=== PATIENT | male | born 1945 | race Caucasian/White ===

== ENCOUNTER → 2018-01-17 | Outpatient (CLI) | payer OTHER ==
[~2018-01-17] MED LIST: ASPI-435 PO; ATOR-24 PO; CRTC; INSU100I23 SC; LATA0.5S OPB; LIRA18IN SQ; LISI-461 PO; METF-384 PO; METO100T44 PO; OMEG10007 PO; OXYC-643 PO; SILD100T PO; TYLER650 PO
--- NOTE | 2018-01-17 13:15 | DIAGNOSTIC IMAGING REPORT ---
TWO VIEW CHEST CLINICAL HISTORY: Preoperative examination. FINDINGS: PA and lateral chest radiographs are obtained. No prior studies are available for comparison at the time of dictation. The patient is status post midline sternotomy. The heart is mildly enlarged and there is atherosclerotic calcification of the thoracic aorta. The pulmonary vasculature is noncongested. Nonspecific interstitial thickening is likely chronic. Linear atelectasis versus scarring is seen in the right upper lung. No airspace consolidation or pleural effusion is identified. There is no pneumothorax. The skeletal structures are osteopenic. The bony thorax appears intact. Surgical clips are noted in the upper abdomen. IMPRESSION: Cardiomegaly with no active disease in the chest. Electronically signed by: Dante Lopez M.D. 01/17/2018 1:14 PM Dictated Date/Time: 01/17/2018 1:13 PM
[2018-01-17 14:40] LABS: HEMATOCRIT 38.7 % (42-52); HEMOGLOBIN 13.2 g/dL (14.0-18.0); MEAN CELL VOLUME 95.8 fL (80-100); MEAN CORPUSCULAR HEMOGLOBIN 32.7 pg (25-34); MEAN CORPUSCULAR HGB CONC 34.1 g/dl (32-36); MEAN PLATELET VOLUME 9.7 fL (7.4-10.4); PLATELET COUNT 191 K/uL (130-400); RED CELL DISTRIBUTION WIDTH CV 13.4 % (11.5-14.5); RED CELL DISTRIBUTION WIDTH SD 46.6 fL (36.4-46.3)
[2018-01-17 14:53] LABS: PTT PATIENT 22.2 SECONDS (21.0-31.0)
== END | disposition home or self-care (01) ==
LOC: C.RAD 12:31
PROVIDERS: ATTEND Podiatrist
DX: Z01.810 Encounter for preprocedural cardiovascular examination (principal); Z01.811 Encounter for preprocedural respiratory examination; Z01.812 Encounter for preprocedural laboratory examination; I51.7 Cardiomegaly

== ENCOUNTER → 2018-01-18 | Day surgery (SDC) | payer OTHER ==
[2018-01-04 15:04] VITALS: Ht 181.6 cm; Wt 84.1 kg
[~2018-01-18] VITALS: Ht 181.6 cm; Wt 84.1 kg
[~2018-01-18] MED LIST changes: +ATROPINE SULFATE 0.1 MG/ML 5ML SYR IV PRN; +BUPIVACAINE 0.5 % 5 MG/1 ML MPF 30ML VIAL ONE; +CEFAZOLIN 2000MG IV PUSH 15 ML IV SCH; +EpHEDrine SULFATE INJ 50 MG/ML AMP IV PRN; +EpHEDrine SULFATE INJ 50 MG/ML AMP ONE; +FENTANYL CITRATE INJ 50 MCG/1 ML 2 ML VIAL IV PRN; +FENTANYL CITRATE INJ 50 MCG/1 ML 2 ML VIAL ONE; +FLUMAZENIL 0.1 MG/1 ML 10 ML VIAL IV PRN; +HYDROmorphone INJ 0.5 MG/0.5 ML SYR IV PRN; +LABETALOL HCL IV 5 MG/ML 20ML IV PRN; +LACTATED RINGER'S 1000ML 1,000 ML IV SCH; +LIDOCAINE HCL 2% 2 ML VIAL (20MG/ML) ONE; +MEPERIDINE HCL 25 MG/ML CARP IV PRN; +MIDAZOLAM HCL 1 MG/ML 2ML VIAL ONE; +NALOXONE HCL 0.4 MG/1 ML VIAL/CARP IV PRN; +ONDANSETRON INJ 2 MG/ML 2 ML VIAL IV PRN; +ONDANSETRON INJ 2 MG/ML 2 ML VIAL ONE; +PHENYLEPHRINE 100MCG/ML 5ML SYR IV PRN; +PROPOFOL IV EMULSION 10 MG/ML 20 ML VIAL IV ONE; +SODIUM CHLORIDE 0.9% INJ 10 ML VIAL ONE
--- NOTE | 2018-01-18 08:31 | Discharge Instructions-SurgCtr ---
Discharge Instructions Date of Service Jan 18, 2018. Visit Reason for Visit: Left Foot Non Pressure Chronic Ulcer, Hallux Rigid Discharge Discharge Diagnosis / Problem: hallux rigidus with chronic ulceration Discharge Goals Goal(s): Decrease discomfort, Improve function Medications Stopped Medications Name(s): Metformin, last dose 01/15/18 Activity Recommendations Activity Limitations: per Instructions/Follow-up section Weightbearing Status: Left non-weightbearing Anesthesia . Post Anesthesia Instructions: If you have had General Anesthesia or IV Sedation: * Do not drive today. * Resume driving when surgeon permits. * Do not make important decisions or sign legal documents today. * Call surgeon for: 1. Temperature elevations greater than 101 degrees F. 2. Uncontrollable pain. 3. Excessive bleeding. 4. Persistent nausea and vomiting. 5. Medication intolerance (nausea, vomiting or rash). * For nausea and vomiting use only clear liquids such as: tea, soda, bouillon until nausea subsides, then gradually increase diet as tolerated. * If you have any concerns or questions, call your surgeon's office. If physician is unavailable and it is an emergency, call 911 or go to the nearest emergency room. . Diet Recommendations Home Diet: no limitations Pending Studies Studies pending at discharge: no Medical Emergencies . Who to Call and When: Medical Emergencies: If at any time you feel your situation is an emergency, please call 911 immediately. . Non-Emergent Contact Non-Emergency issues call your: Surgeon Call Non-Emergent contact if: temperature is above 101, your pain is not controlled, you have any medication questions . . "Provider Documentation" section prepared by Gio Rouse. .
--- NOTE | 2018-01-18 08:34 | History & Physical Bridge - SC ---
H&P Re-Evaluation Bridge Note: I have examined the patient, reviewed the History & Physical and in the interval since the performance of the History & Physical I have noted the following changes of clinical significance: No changes noted
--- NOTE | 2018-01-18 08:36 | [facility] Post Operative Brief Note ---
Immediate Operative Summary Operative Date Jan 18, 2018. Pre-Operative Diagnosis Hallux rigidus left foot Post-Operative Diagnosis Same as preoperative dx Procedure(s) Performed Revision 1st MTPJ fusion with resection sesamoid spur and resection plantar wound via flap closure Surgeon Gio Rouse DPM [employer] Professional Surgeon(s) None Estimated Blood Loss Minimal Findings Consistent with Post-Op Diagnosis Specimens None Anesthesia Type General Complication(s) none Disposition Disposition: Recovery Room / PACU
--- NOTE | 2018-01-18 10:30 | [facility] Operative Report ---
Operative Report Operative Date Jan 18, 2018. Pre-Operative Diagnosis Left Foot Non-Pressure Chronic Ulcer, Hallux Rigid Post-Operative Diagnosis same as preop Procedure(s) Performed Revision 1st MTPJ fusion with resection sesamoid spur and resection plantar wound via flap closure Surgeon Dr. Rouse Senior Accounting Specialist Surgeon(s) none Estimated Blood Loss 10ML Specimens none Drains None Anesthesia Type General Complication(s) none Disposition Recovery Room / PACU Indications Non healing plantar left foot wound with ulceration. Malunion of the first MTP fusion Description of Procedure Patient was transported from the preoperative holding area into the operative room placed on the table in normal supine position. Timeout was performed in the left lower extremity was identified. After induction of general anesthesia a thigh tourniquet was applied and a local field block to the first ray was given with 20 cc of half percent Marcaine plain. Left lower extremity was then prepped and draped in the normal sterile fashion. Leg was elevated and exsanguinated tourniquet was inflated to 250 mmHg. Attention was then directed to the dorsal first metatarsophalangeal joint at the previous site of incision. Incision was carried down to the subcutaneous tissues to the level of bone. Fluoroscopy was employed to visualize the hardware that was in place from previous surgery. A dorsal to plantar cut was made vertically in line with the axis of the first ray. The plantar hinge was noted to be intact. After plantarflexion of the distal fragment of the osteotomy adequate alignment was achieved in good position of the first ray was noted. The hallux was slightly dorsiflexed with only distal pulp of the hallux touching the weightbearing surface. This position was secured using plate fixation and BB tack from [employer]. 2 nonlocking screws were placed distal to the osteotomy site in a bicortical fashion in the right [employer] plate. BB tacks were then removed and locking screw fixation was employed closer to the wedge osteotomy site. The void that was left from the wedge plantarflexion osteotomy was then filled with [employer] Serevent per [employer] technique. Positioning was checked on fluoroscopy and excellent alignment of the first ray was noted. Again the hallux was noted to be just purchasing the ground with a slightly dorsiflexed position. The sesamoids appear to be hypertrophied and jagged in nature from previous surgery. At this time the medial incision was done at the level of the sesamoids. Careful dissection was carried down to the level of the bone and the sesamoids were shaved in a manual fashion using a rasp. Smooth congruent sesamoids were felt intraoperatively. Attention was then directed to the plantar lateral wound of the first metatarsophalangeal joint. The chronic nature of the wounds lead itself to a 3- 1 elliptical incision which was performed. All incision sites were then flushed with copious amounts of normal sterile saline. All wounds were closed in a layered fashion. A short posterior splint that was well-padded was applied to the left lower extremity as well as a dry sterile dressing. Patient tolerated the anesthesia procedure well he was transported to the PACU with vital signs stable and neurovascular status intact to the left lower extremity. I attest to the content of the Intraoperative Record and any orders documented therein. Any exceptions are noted below.
--- NOTE | 2018-01-18 10:50 | Anesthesia Progress Nt - [facility] ---
Anesthesia Post Op Note Date & Time Jan 18, 2018 at 10:50 Vital Signs Pain Intensity: 0 Vital Signs Past 12 Hours Date Time Temp Pulse Resp B/P (MAP) Pulse Ox O2 Delivery O2 Flow Rate FiO2 01/18/18 10:41 127/68 01/18/18 10:40 67 5 01/18/18 10:40 67 5 97 01/18/18 10:36 135/65 01/18/18 10:35 72 8 95 01/18/18 10:35 71 8 01/18/18 10:32 131/57 01/18/18 10:30 70 7 01/18/18 10:30 69 7 99 01/18/18 10:26 140/71 01/18/18 10:25 69 4 01/18/18 10:25 69 4 98 01/18/18 10:21 152/91 01/18/18 10:20 37.0 75 16 152/91 98 Diffusion Mask 6 01/18/18 10:20 75 98 01/18/18 10:20 75 01/18/18 07:49 36.3 73 20 149/77 (101) 98 Room Air Notes Mental Status: alert / awake / arousable, participated in evaluation Pt Amnestic to Procedure: Yes Nausea / Vomiting: adequately controlled Pain: adequately controlled Airway Patency, RR, SpO2: stable & adequate BP & HR: stable & adequate Hydration State: stable & adequate Anesthetic Complications: no major complications apparent
[2018-01-18 11:02] VITALS: TEMP 36.9
--- NOTE | 2018-01-18 11:38 | DIAGNOSTIC IMAGING REPORT ---
Intraoperative left foot 2 VIEWS CLINICAL HISTORY: LEFT FOOT METATARSAL PHALANGEAL JOINT REVISION COMPARISON STUDY: None FLUOROSCOPY TIME: 2 seconds. NUMBER OF FLUOROSCOPIC IMAGES: 2 FINDINGS: 2 intraoperative fluoroscopic spot images demonstrate postsurgical changes of a first metatarsal phalangeal joint arthrodesis. There is a dorsal metallic plate with multiple additional screws. IMPRESSION: Intraoperative radiograph demonstrating a first metatarsal phalangeal joint arthrodesis. Electronically signed by: Ang Corey M.D. 01/18/2018 11:37 AM Dictated Date/Time: 01/18/2018 11:36 AM
[2018-01-18 11:41] VITALS: BP 132/64; PULSE 61; O2SAT 97
== END | disposition home or self-care (01) ==
LOC: X.SURG 07:30
PROVIDERS: ATTEND Podiatrist
DX: M20.22 Hallux rigidus, left foot (principal); L97.522 Non-pressure chronic ulcer of other part of left foot with fat layer exposed; E11.621 Type 2 diabetes mellitus with foot ulcer; E11.42 Type 2 diabetes mellitus with diabetic polyneuropathy; I51.9 Heart disease, unspecified; I10 Essential (primary) hypertension; E78.00 Pure hypercholesterolemia, unspecified; Z87.891 Personal history of nicotine dependence; Z79.899 Other long term (current) drug therapy; Z79.84 Long term (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 of oral hypoglycemic drugs

== ENCOUNTER 2018-04-14 16:42 | Inpatient (IN) | payer OTHER ==
[~2018-04-14] VITALS: Ht 182.9 cm; Wt 85.0 kg
[~2018-04-14 16:42] MED LIST changes: -ATROPINE SULFATE 0.1 MG/ML 5ML SYR IV PRN; -BUPIVACAINE 0.5 % 5 MG/1 ML MPF 30ML VIAL ONE; -CEFAZOLIN 2000MG IV PUSH 15 ML IV SCH; -CRTC; -EpHEDrine SULFATE INJ 50 MG/ML AMP IV PRN; -EpHEDrine SULFATE INJ 50 MG/ML AMP ONE; -FENTANYL CITRATE INJ 50 MCG/1 ML 2 ML VIAL IV PRN; -FENTANYL CITRATE INJ 50 MCG/1 ML 2 ML VIAL ONE; -FLUMAZENIL 0.1 MG/1 ML 10 ML VIAL IV PRN; -HYDROmorphone INJ 0.5 MG/0.5 ML SYR IV PRN; -LABETALOL HCL IV 5 MG/ML 20ML IV PRN; -LACTATED RINGER'S 1000ML 1,000 ML IV SCH; -LIDOCAINE HCL 2% 2 ML VIAL (20MG/ML) ONE; -MEPERIDINE HCL 25 MG/ML CARP IV PRN; -MIDAZOLAM HCL 1 MG/ML 2ML VIAL ONE; -NALOXONE HCL 0.4 MG/1 ML VIAL/CARP IV PRN; -ONDANSETRON INJ 2 MG/ML 2 ML VIAL IV PRN; -ONDANSETRON INJ 2 MG/ML 2 ML VIAL ONE; -PHENYLEPHRINE 100MCG/ML 5ML SYR IV PRN; -PROPOFOL IV EMULSION 10 MG/ML 20 ML VIAL IV ONE; -SODIUM CHLORIDE 0.9% INJ 10 ML VIAL ONE
[2018-04-14] MEDS ORDERED: SODIUM CHLORIDE 0.9% 1000ML 1,000 ML IV STA (17:16)
[2018-04-14] MEDS ORDERED: VANCOMYCIN IV STA (17:16)
[2018-04-14] MEDS ORDERED: SODIUM CHLORIDE 0.9% 500ML 500 ML IV STA (17:16)
[2018-04-14] MEDS ORDERED: SODIUM CHLORIDE 0.9% IV STA (17:16)
[2018-04-14] MEDS ORDERED: VANCOMYCIN CONSULT ACTIVE PRN ×2 (17:30→23:15)
--- NOTE | 2018-04-14 17:34 | EMERGENCY ROOM VISIT NOTE ---
History Report prepared by Daisy: Macario Woods Under the Supervision of: Dr. Joan Santiago M.D. First contact with patient: 17:09 Chief Complaint: SWELLING TO EXTREMITY Stated Complaint: LEFT LEG SWELLING History of Present Illness The patient is a 72 year old male who presents to the Emergency Room with complaints of worsening swelling and redness to his left foot and ankle beginning a few weeks ago. The patient states he recently had surgery on his foot for the third time. He reports his other two surgeries have healed well. The patient notes his first surgery occurred several years ago and had a plate with screws placed in his foot. He states the screws started to come out, so he had another surgery to remove them and have his toes fused. The patient reports his most recent surgery unfused his toes. He notes he had three different incisions, two of which have healed well. The patient states over the past few days his swelling has worsened, and the redness has grown. He reports his symptoms intensify when he showers. The patient notes he was evaluated by his v block saw operator today and had wound cultures obtained. He states he was told it may be a reaction to the sutures in his foot. The patient reports his v block saw operator outlined the redness at his appointment today, and it has spread since this afternoon. He notes he was given oxycodone for pain. The patient states it helps his symptoms, but he does not like to take it often. He reports he prefers to use Tylenol. The patient notes he had an MRI before surgery that was within normal limits. He states he has a history of diabetes. The patient reports an additional history of a CABGx3 and a chronic DVT. He notes he takes a baby aspirin daily. The patient states he occasionally has a cigar. He denies any other symptoms. Source of History: patient Onset: a few weeks ago Position: foot (left) Quality: other (swelling and redness) Timing: worsening Modifying Factors (Worsening): other (showering) Modifying Factors (Relieving): other (oxycodone) Review of Systems See HPI for pertinent positives & negatives. A total of 10 systems reviewed and were otherwise negative. Past Medical & Surgical Medical Problems: (1) CAD (coronary artery disease) (2) Diabetes mellitus, type II (3) DVT (deep venous thrombosis) (4) Hallux rigidus of left foot (5) HLD (hyperlipidemia) (6) Peripheral vascular disease of lower extremity (7) Type 2 diabetes mellitus Surgical Problems: (1) S/P CABG x 3 Family History Heart disease Social History Smoking Status: Never Smoker Drug Use: none Marital Status: Occupation Status: retired Current/Historical Medications Scheduled Aspirin (Aspirin 81), 81 MG PO QAM Atorvastatin (Lipitor), 1 TAB PO QPM Fish Oil ([place]-3), 1 CAP PO BID Insulin Glargine (Basaglar Kwikpen), 46 UNITS SC QPM Latanoprost (Xalatan 0.005% Oph Jolie), 1 DROPS OPB HS Liraglutide (Victoza), 1.2 MG SQ QAM Lisinopril (Zestril), 10 MG PO QAM Metformin Hcl (Glucophage), 1,000 MG PO BID Metoprolol Succ (Toprol Xl) (Toprol-Xl ), 100 MG PO QAM Sildenafil Citrate (Viagra), 100 MG PO PRN Scheduled PRN Acetaminophen (Tylenol Arthitis Ext Rel), 2 TAB PO Q8H PRN for Pain Allergies Coded Allergies: No Known Allergies (Unverified , 04/14/18) Physical Exam Vital Signs Date Time Temp Pulse Resp B/P (MAP) Pulse Ox O2 Delivery O2 Flow Rate FiO2 04/14/18 20:52 98 Room Air 04/14/18 19:19 90 112/69 98 Room Air 04/14/18 17:01 37.0 90 20 121/64 99 Room Air Physical Exam Vital signs reviewed. General: Well-appearing 72 year old male, in no significant distress. HEENT: No scleral icterus, PERRLA, neck supple. Atraumatic. Cardiovascular: Regular rate and rhythm, no extra sounds. Pulmonary: Clear to auscultation bilaterally, normal work of breathing. Abdomen: Soft, nontender, nondistended, positive bowel sounds. Musculoskeletal: Atraumatic, 1+ pitting edema to the left lower extremity distally. Quarter sized open wound to the dorsum of the foot at the MTP with swelling. Erythema extended over the distal 1/2 of the foot. Foul odor. Neurologic: Patient awake alert and oriented x 3 Skin: Warm, dry, no rash Medical Decision & Procedures ER Provider Diagnostic Interpretation: Radiology results as stated below per my review and radiologist interpretation: LEFT LOWER EXTREMITY VENOUS DOPPLER CLINICAL HISTORY: LLE swelling, distal foot infection. COMPARISON STUDY: No previous studies for comparison. TECHNIQUE: Sonography of the deep venous system of the left lower extremity was performed. Compression and augmentation were evaluated. FINDINGS: The common femoral, superficial femoral and popliteal veins were compressible. Augmentation was normal. Flow was shown within the deep calf vessels. IMPRESSION: No evidence of deep venous thrombus within the left lower extremity. Electronically signed by: Raghu Mcgowan M.D. 04/14/2018 7:10 PM Dictated Date/Time: 04/14/2018 7:10 PM LEFT FOOT RADIOGRAPHS CLINICAL HISTORY: Nonhealing left foot wound status post surgery 3 months ago. Diabetes. COMPARISON: CT of the left foot August 26, 2015 and left foot fluoroscopic images January 18, 2018. FINDINGS: There are postoperative findings consistent with fusion of the left first metatarsophalangeal joint with plate and screws. The hardware is intact. However, there may be mild lucency surrounding the proximal screws. There is a minimally distracted transverse fracture through the left first metatarsal head. There is mild periosteal reaction/periostitis of the lateral distal shaft of the left first metatarsal. No additional fractures are present. Tarsometatarsal joints are intact. IMPRESSION: 1. Transverse minimally distracted fracture of the left first metatarsal head which is new since exam of January 18, 2018. This fracture is likely subacute to acute. Mild adjacent soft tissue swelling. 2. Status post fusion of the left first metatarsophalangeal joint. Hardware intact. Mild lucency surrounding the proximal screws raises the possibility of loosening. 3. Mild periostitis of the lateral distal shaft of the left first metatarsal which is nonspecific and may be related to the fracture, previous surgery or an infectious etiology. 4. Medial left foot soft tissue swelling. Electronically signed by: Raghu Mcgowan M.D. 04/14/2018 6:24 PM Dictated Date/Time: 04/14/2018 6:16 PM Laboratory Results Test 04/14/18 17:49 04/14/18 19:08 Erythrocyte Sedimentation Rate 59 mm/hr (0-14) Total Bilirubin 0.7 mg/dl (0.2-1) Alanine Aminotransferase (ALT/SGPT) 24 U/L (12-78) Alkaline Phosphatase 70 U/L (45-117) Total Protein 8.1 gm/dl (6.4-8.2) Albumin 3.6 gm/dl (3.4-5.0) Magnesium Level 1.9 mg/dl (1.8-2.4) Direct Bilirubin 0.2 mg/dl (0-0.2) Aspartate Amino Transf (AST/SGOT) 12 U/L (15-37) Thyroid Stimulating Hormone (TSH) 0.654 uIu/ml (0.300-4.500) Laboratory results per my review. Medications Administered Medications (Trade) Dose Ordered Sig/Jennifer Route Start Time Stop Time Status Last Admin Dose Admin Sodium Chloride 500 ml @ 999 mls/hr Q31M STAT IV 04/14/18 17:16 04/14/18 17:46 DC 04/14/18 17:16 999 MLS/HR Sodium Chloride 1,000 ml @ 125 mls/hr Q8H STAT IV 04/14/18 17:16 04/15/18 18:10 DC 04/14/18 17:16 125 MLS/HR Vancomycin HCl 2125 mg/Sodium Chloride 542.5 ml @ 200 mls/hr ONE STAT IV 04/14/18 17:16 04/14/18 19:58 DC 04/14/18 18:26 200 MLS/HR Piperacillin Sod/ Tazobactam Sod (Zosyn Iv) 4.5 gm NOW STAT IV 04/14/18 20:14 04/14/18 20:16 DC 04/14/18 20:23 4.5 GM ED Course 1712: Past medical records reviewed. The patient was evaluated in room B11B. A complete history and physical examination was performed. 1801: Upon reevaluation, the patient is resting comfortably. I discussed laboratory and radiographic results with him. He verbalized agreement of the treatment plan. The patient will be evaluated for further management and care. 2019: I discussed the patient's [facility] The patient will be evaluated for further management and care. Medical Decision Differential diagnosis: Etiologies such as cellulitis, abscess, MRSA infection, DVT, necrotizing fasciitis, dermatitis, osteomyelitis, drug eruption, as well as others were entertained. This patient was evaluated and appeared to be in no significant distress. IV access was obtained and laboratory work was drawn. Patient was placed on the quality assurance monitor chassis and found to be in a normal sinus rhythm. He was hydrated with normal saline solution. Patient was started on IV vancomycin and Zosyn due to his nonhealing ulceration and diabetes. He also has significant peripheral vascular disease. Doppler of the lower extremity was performed and is negative for DVT. X-ray of the foot was performed and is read as above. Patient's laboratory work reveals an elevated sedimentation rate and CRP. I do have concerns for underlying osteomyelitis. The hospitalist service was consulted for further management. Patient and were made aware of the plan and agree. Medication Reconcilliation Current Medication List: was personally reviewed by me Blood Pressure Screening Patient's blood pressure: Normal blood pressure Blood pressure disposition: Did not require urgent referral Consults Time Called: 2010 Consulting Physician: Maddy Joshua Hospitalist Returned Call: 2018 I discussed the patient's case with [facility]. The patient will be evaluated for further management and care. Impression Primary Impression: Cellulitis of left lower extremity Additional Impressions: Non-healing surgical wound Postoperative wound infection Scribe Attestation The scribe's documentation has been prepared under my direction and personally reviewed by me in its entirety. I confirm that the note above accurately reflects all work, treatment, procedures, and medical decision making performed by me. Departure Information Dispostion Being Evaluated By Hospitalist Referrals No Doctor, Assigned (PCP) Patient Instructions My [facility] Problem Qualifiers Additional Impressions:
[2018-04-14 18:04] LABS: BASO % 0.1 %; BASO ABS # 0.01 K/uL (0-0.2); EOS % 0.9 %; EOS ABS # 0.09 K/uL (0-0.5); HEMATOCRIT 30.7 % (42-52); HEMOGLOBIN 10.5 g/dL (14.0-18.0); IG# 0.04 K/uL (0.00-0.02); LYMPH % 12.1 %; LYMPH ABS # 1.18 K/uL (1.2-3.4); MEAN CORPUSCULAR HEMOGLOBIN 31.8 pg (25-34); MEAN CORPUSCULAR HGB CONC 34.2 g/dl (32-36); MEAN PLATELET VOLUME 8.4 fL (7.4-10.4); MONO % 12.2 %; MONO ABS # 1.19 K/uL (0.11-0.59); NEUT % 74.3 %; NEUT ABS # 7.22 K/uL (1.4-6.5); PLATELET COUNT 233 K/uL (130-400); RED CELL DISTRIBUTION WIDTH CV 13.9 % (11.5-14.5); RED CELL DISTRIBUTION WIDTH SD 47.6 fL (36.4-46.3); WHITE BLOOD COUNT 9.73 K/uL (4.8-10.8)
--- NOTE | 2018-04-14 18:26 | DIAGNOSTIC IMAGING REPORT ---
LEFT FOOT RADIOGRAPHS CLINICAL HISTORY: Nonhealing left foot wound status post surgery 3 months ago. Diabetes. COMPARISON: CT of the left foot August 26, 2015 and left foot fluoroscopic images January 18, 2018. FINDINGS: There are postoperative findings consistent with fusion of the left first metatarsophalangeal joint with plate and screws. The hardware is intact. However, there may be mild lucency surrounding the proximal screws. There is a minimally distracted transverse fracture through the left first metatarsal head. There is mild periosteal reaction/periostitis of the lateral distal shaft of the left first metatarsal. No additional fractures are present. Tarsometatarsal joints are intact. IMPRESSION: 1. Transverse minimally distracted fracture of the left first metatarsal head which is new since exam of January 18, 2018. This fracture is likely subacute to acute. Mild adjacent soft tissue swelling. 2. Status post fusion of the left first metatarsophalangeal joint. Hardware intact. Mild lucency surrounding the proximal screws raises the possibility of loosening. 3. Mild periostitis of the lateral distal shaft of the left first metatarsal which is nonspecific and may be related to the fracture, previous surgery or an infectious etiology. 4. Medial left foot soft tissue swelling. Electronically signed by: Raghu Mcgowan M.D. 04/14/2018 6:24 PM Dictated Date/Time: 04/14/2018 6:16 PM
[2018-04-14 18:31] LABS: ALBUMIN 3.6 gm/dl (3.4-5.0); CALCIUM 9.6 mg/dl (8.5-10.1); CREATININE 1.32 mg/dl (0.60-1.40); TOTAL PROTEIN 8.1 gm/dl (6.4-8.2)
--- NOTE | 2018-04-14 19:11 | DIAGNOSTIC IMAGING REPORT ---
LEFT LOWER EXTREMITY VENOUS DOPPLER CLINICAL HISTORY: LLE swelling, distal foot infection. COMPARISON STUDY: No previous studies for comparison. TECHNIQUE: Sonography of the deep venous system of the left lower extremity was performed. Compression and augmentation were evaluated. FINDINGS: The common femoral, superficial femoral and popliteal veins were compressible. Augmentation was normal. Flow was shown within the deep calf vessels. IMPRESSION: No evidence of deep venous thrombus within the left lower extremity. Electronically signed by: Raghu Mcgowan M.D. 04/14/2018 7:10 PM Dictated Date/Time: 04/14/2018 7:10 PM
[2018-04-14 19:38] LABS: POTASSIUM 4.3 mmol/L (3.5-5.1)
[2018-04-14] MEDS ORDERED: PIPERACILLIN/TAZOBACTAM 4.5 GM/100ML D5W IV STA (20:14)
[2018-04-14 20:52] VITALS: O2SAT 98; BMI 25.4
--- NOTE | 2018-04-14 21:44 | History and Physical ---
History & Physical Date & Time of Service: Apr 14, 2018 at 21:15 Chief Complaint: Left Leg Swelling Primary Care Physician: Bette Degroot D.O. History of Present Illness Source: patient, clinic records, hospital records This is a 72-year-old male with a PMH of DM II, CAD (s/p CABG), peripheral vascular disease, HLD and multiple left foot surgeries who presents with worsening pain and swelling of right foot over the past few days. Patient has a remote history of multiple left foot fractures hallux rigidus and had a plate and screws placed in 2003. Then had screws removed and joint fusion in the following year. Since then, patient has had intermittent ulcers on the plantar aspect of foot, requiring orthotics and podiatry care. In January 2018, patient underwent revision of first MTPJ fusion with resection by by Dr. Rouse. Has continued to have pain, swelling and non-healing surgical site since then, which has worsened over the past few days. Describes pain as throbbing, constant and worse with walking or after showering. Has been taking Tylenol every 4 hours and Percocet the past 2 days. Noted increased swelling and redness surrounding the open area on the dorsal aspect of his first metatarsal and went to podiatry, where wound cultures were performed. Was encouraged to come to ED for further evaluation and antibiotic management. Past medical history is also significant for type 2 diabetes and peripheral vascular disease. Denies fever, chills, lightheadedness, headache, visual changes, chest pain, palpitations, shortness of breath, abdominal pain, nausea, vomiting, dysuria, diarrhea or LE swelling. Has been constipated since starting to use Percocet. PCP is Dr. Degroot. Past Medical/Surgical History Medical Problems: (1) CAD (coronary artery disease) Status: Chronic (2) Diabetes mellitus, type II Status: Chronic (3) DVT (deep venous thrombosis) Status: Chronic (4) Hallux rigidus of left foot Permanent Comment: S/p multiple surgeries Status: Chronic (5) HLD (hyperlipidemia) Status: Chronic (6) Peripheral vascular disease of lower extremity Status: Chronic (7) Type 2 diabetes mellitus Status: Chronic Surgical Problems: (1) S/P CABG x 3 Status: Resolved Family History Heart disease Social History Smoking Status: Light Tobacco Smoker (occasional cigars ) Alcohol Use: none Drug Use: none Marital Status: Housing status: lives with significant other Occupational Status: retired Allergies Coded Allergies: No Known Allergies (Unverified , 04/14/18) Home Medications Scheduled Aspirin (Aspirin 81), 81 MG PO QAM Atorvastatin (Lipitor), 1 TAB PO QPM Fish Oil ([place]-3), 1 CAP PO BID Insulin Glargine (Basaglar Kwikpen), 46 UNITS SC QPM Latanoprost (Xalatan 0.005% Oph Jolie), 1 DROPS OPB HS Liraglutide (Victoza), 1.2 MG SQ QAM Lisinopril (Zestril), 10 MG PO QAM Metformin Hcl (Glucophage), 1,000 MG PO BID Metoprolol Succ (Toprol Xl) (Toprol-Xl ), 100 MG PO QAM Sildenafil Citrate (Viagra), 100 MG PO PRN Scheduled PRN Acetaminophen (Tylenol Arthitis Ext Rel), 2 TAB PO Q8H PRN for Pain Review of Systems Ten systems reviewed and negative except as noted in the HPI. Physical Exam Vital Signs Date Time Temp Pulse Resp B/P (MAP) Pulse Ox O2 Delivery O2 Flow Rate FiO2 04/14/18 20:52 98 Room Air 04/14/18 19:19 90 112/69 98 Room Air 04/14/18 17:01 37.0 90 20 121/64 99 Room Air General Appearance: WD/WN, no apparent distress Head: normocephalic, atraumatic Eyes: normal inspection, PERRL, sclerae normal ENT: normal ENT inspection, hearing grossly normal, pharynx normal Neck: supple, thyroid normal, trachea midline Respiratory/Chest: chest non-tender, lungs clear, normal breath sounds, no respiratory distress, no accessory muscle use Cardiovascular: regular rate, rhythm, no murmur, normal peripheral pulses Abdomen/GI: non tender, soft, no organomegaly Back: normal inspection Extremities/Musculoskelatal: no calf tenderness, normal capillary refill, + pertinent finding (L 1st metatarsal with open wound with serosangineous drainage and surrounding erythema and edema extending to L ankle ) Neurologic/Psych: no motor/sensory deficits, alert, normal mood/affect, oriented x 3 Skin: normal color, warm/dry, no rash Diagnostics Laboratory Results Results Past 24 Hours Test 04/14/18 17:49 04/14/18 19:08 Range/Units White Blood Count 9.73 4.8-10.8 K/uL Red Blood Count 3.30 4.7-6.1 M/uL Hemoglobin 10.5 14.0-18.0 g/dL Hematocrit 30.7 42-52 % Mean Corpuscular Volume 93.0 80-100 fL Mean Corpuscular Hemoglobin 31.8 25-34 pg Mean Corpuscular Hemoglobin Concent 34.2 32-36 g/dl Platelet Count 233 130-400 K/uL Mean Platelet Volume 8.4 7.4-10.4 fL Neutrophils (%) (Auto) 74.3 % Lymphocytes (%) (Auto) 12.1 % Monocytes (%) (Auto) 12.2 % Eosinophils (%) (Auto) 0.9 % Basophils (%) (Auto) 0.1 % Neutrophils # (Auto) 7.22 1.4-6.5 K/uL Lymphocytes # (Auto) 1.18 1.2-3.4 K/uL Monocytes # (Auto) 1.19 0.11-0.59 K/uL Eosinophils # (Auto) 0.09 0-0.5 K/uL Basophils # (Auto) 0.01 0-0.2 K/uL RDW Standard Deviation 47.6 36.4-46.3 fL RDW Coefficient of Variation 13.9 11.5-14.5 % Immature Granulocyte % (Auto) 0.4 % Immature Granulocyte # (Auto) 0.04 0.00-0.02 K/uL Erythrocyte Sedimentation Rate 59 0-14 mm/hr Sodium Level 134 136-145 mmol/L Potassium Level 4.3 3.5-5.1 mmol/L Chloride Level 102 98-107 mmol/L Carbon Dioxide Level 23 21-32 mmol/L Anion Gap 9.0 3-11 mmol/L Blood Urea Nitrogen 17 7-18 mg/dl Creatinine 1.32 0.60-1.40 mg/dl Est Creatinine Clear Calc Drug Dose 56.4 ml/min Estimated GFR () 62.5 Estimated GFR (Non- 53.9 BUN/Creatinine Ratio 12.7 10-20 Random Glucose 107 70-99 mg/dl Calcium Level 9.6 8.5-10.1 mg/dl Total Bilirubin 0.7 0.2-1 mg/dl Direct Bilirubin 0.2 0-0.2 mg/dl Aspartate Amino Transf (AST/SGOT) 12 15-37 U/L Alanine Aminotransferase (ALT/SGPT) 24 12-78 U/L Alkaline Phosphatase 70 45-117 U/L C-Reactive Protein 12.20 0-0.29 mg/dl Total Protein 8.1 6.4-8.2 gm/dl Albumin 3.6 3.4-5.0 gm/dl Magnesium Level 1.9 1.8-2.4 mg/dl Thyroid Stimulating Hormone (TSH) 0.654 0.300-4.500 uIu/ml Diagnostic Radiology Lower extremity ultrasound: IMPRESSION: No evidence of deep venous thrombus within the left lower extremity. L foot XR: IMPRESSION: 1. Transverse minimally distracted fracture of the left first metatarsal head which is new since exam of January 18, 2018. This fracture is likely subacute to acute. Mild adjacent soft tissue swelling. 2. Status post fusion of the left first metatarsophalangeal joint. Hardware intact. Mild lucency surrounding the proximal screws raises the possibility of loosening. 3. Mild periostitis of the lateral distal shaft of the left first metatarsal which is nonspecific and may be related to the fracture, previous surgery or an infectious etiology. 4. Medial left foot soft tissue swelling. Impression Assessment and Plan This is a 72-year-old male with a PMH of DM II, CAD (s/p CABG), peripheral vascular disease, HLD and multiple left foot surgeries who presents with worsening pain and swelling of right foot over the past few days and was found to have cellulitis of left foot. Left foot cellulitis Wound on dorsal aspect of 1st metatarsal -S/p revision of 1st MTPJ fusion with resection in [address] Rouse -Poor wound healing in setting of DM II, PVD of LLE -Has continued to follow with podiatry -Worsening wound drainage and surrounding erythema/swelling past few days -Afebrile, no leukocytosis. Non-toxic appearing on exam -Wound cultures obtained yesterday by podiatry -Olivier for empiric coverage -Foot XR with mild periostitis of the lateral distal shaft of the left first metatarsal which is nonspecific and may be related to the fracture, previous surgery or an infectious etiology -Consider foot MRI due to concern for osteomyelitis -Wound care consulted DM II -A1c of 6.5 in December 2017 -Repeat a1c -Hold home agents -Basal/bolus regimen while in-patient -Glycemic consult placed -BSG AC HS CAD (s/p CABG) -Stable -Cont aspirin HLD -Cont statin Code status: FULL code, per discussion with patient PCP: Zane Dispo: Admitted to med/surg. Plan to return home once medically stable. Patient seen in collaboration with Dr. Leach. Please see addendum. Advanced Directives Existing Living Will: No Existing Power of Astronomy Teacher: No Resuscitation Status VTE Prophylaxis Will order VTE Prophylaxis: Yes Assessment/Plan IM ATTENDING : Patient seen and examined. History obtained from patient and records. Preceding documentation by Ms. Oliva Malagon PA-C reviewed. In addition, patient became febrile and tachycardic upon arrival at the floor. FINAL ASSESSMENT AND PLAN as follows: 1. Sepsis secondary to nonhealing left foot wound w/ secondary cellulitis. Possible osteomyelitis. Recent revision surgery (01/2018) underlying PAD possibly contributory to protracted postop healing (hx L popliteal artery occlusion, possible need for LLE revascularization as per recent outpatient [facility] Vascular Surgery evaluation 08/2016) 2. Hypertension, stable. 3. Coronary artery disease status post CABG 4. DM2, insulin requiring well controlled as of recent outpatient Hg of A1c 6.5 last December 2017. 5. Subacute anemia. Hemoglobin down to 10.5 from 13.2 last January (Patient denies overt GI bleed at home. Hx polyps on recent colonoscopy in 2016) 6. past tobacco abuse. [facility] CS, check lactic acid Vancomycin and Cefepime for now. MRI of the L foot. RE rule out osteomyelitis Arterial Dopplers, LLE, may need Vascular Surgery eval pending results Podiatry followup eval. (Dr. Rouse) Inpatient Orthopedics eval for left foot wound (Dr. Tejeda as per patient's request.) ID consult RE infected L foot wound. Wound care follow-up consult Anemia workup. Basal insulin, ISS BG goal 140-180. Patient due for hemoglobin A1c recheck. DVT prophylaxis, Lovenox subQ pending stool hemoccult results. Full code.
[2018-04-14 21:53] VITALS: O2SAT 97
[2018-04-14 22:45] VITALS: BP 130/65; PULSE 107; TEMP 37.7; O2SAT 96
[2018-04-14] MEDS ORDERED: PROCHLORPERAZINE INJ 5 MG in SYRINGE 4 ML IV PRN (22:45)
[2018-04-14] MEDS ORDERED: CARBOHYDRATES FOR HYPOGLYCEMIA PO PRN (22:45)
[2018-04-14] MEDS ORDERED: MoRPHine SULFATE 4 MG/ML 1 ML CARP\\VIAL IV PRN (22:45)
[2018-04-14] MEDS ORDERED: GLUCOSE 10 TABS/TUBE PO PRN (22:45)
[2018-04-14] MEDS ORDERED: POLYETHYLENE (MIRALAX) 17 GM PACK PO PRN (22:45)
[2018-04-14] MEDS ORDERED: GLUCAGON FOR INJ 1 MG VIAL SQ PRN (22:45)
[2018-04-14] MEDS ORDERED: GLUCOSE 40% GEL 15 GM TUBE PO PRN (22:45)
[2018-04-14] MEDS ORDERED: DEXTROSE 50% 50 ML SYR IV PRN (22:45)
[2018-04-14] MEDS ORDERED: DOCUSATE SODIUM 100 MG CAP PO ONE (23:00)
[2018-04-14] MEDS ORDERED: POLYETHYLENE (MIRALAX) 17 GM PACK PO ONE (23:00)
[2018-04-14] MEDS ORDERED: ACETAMINOPHEN 325 MG TAB PO ONE (23:00)
[2018-04-14] MEDS ORDERED: INSULIN ASPART 100 UNITS/ML 3 ML PEN SC ONE (23:00)
[2018-04-14] MEDS ORDERED: SODIUM CHLORIDE 0.9% 1000ML 1,000 ML IV ONE (23:00)
[2018-04-14] MEDS ORDERED: CEFEPIME CONSULT ACTIVE PRN (23:15)
[2018-04-14 23:30] LABS: HEMOGLOBIN 11.2 g/dL (14.0-18.0); RETIC COUNT % 1.2 % (0.5-2.0)
[2018-04-14 23:34] VITALS: BP 124/63; PULSE 88; TEMP 38; O2SAT 97
[2018-04-15] MEDS ORDERED: CEFEPIME IV 2,000 MG in SYRINGE 7.5 ML IV SCH
--- NOTE | 2018-04-15 00:30 | HISTORY & PHYSICAL EXAMINATION ---
DATE OF ADMISSION: 04/14/2018 IM ATTENDING : Patient seen and examined. History obtained from patient and records. Preceding documentation by Ms. Oliva Malagon PA-C reviewed. In addition, patient became febrile and tachycardic upon arrival at the floor. FINAL ASSESSMENT AND PLAN as follows: 1. Sepsis secondary to nonhealing left foot wound w/ secondary cellulitis. Possible osteomyelitis. Recent revision surgery (01/2018) underlying PAD possibly contributory to protracted postop healing (hx L popliteal artery occlusion, possible need for LLE revascularization as per recent outpatient [facility] Vascular Surgery evaluation 08/2016) 2. Hypertension, stable. 3. Coronary artery disease status post CABG 4. DM2, insulin requiring well controlled as of recent outpatient Hg of A1c 6.5 last December 2017. 5. Subacute anemia. Hemoglobin down to 10.5 from 13.2 last January (Patient denies overt GI bleed at home. Hx polyps on recent colonoscopy in 2016) 6. past tobacco abuse. [facility] CS, check lactic acid Vancomycin and Cefepime for now. MRI of the L foot. RE rule out osteomyelitis Arterial Dopplers, LLE, may need Vascular Surgery eval pending results Podiatry followup eval. (Dr. Rouse) Inpatient Orthopedics eval for left foot wound (Dr. Tejeda as per patient's request.) ID consult RE infected L foot wound. Wound care follow-up consult Anemia workup. Basal insulin, ISS BG goal 140-180. Patient due for hemoglobin A1c recheck. DVT prophylaxis, Lovenox subQ pending stool hemoccult results. Full code. MTDD
[2018-04-15] MEDS: ACETAMINOPHEN 325 MG TAB PO PRN ×4 (03:18→22:22)
[2018-04-15 06:07] LABS: BASO % 0.1 %; BASO ABS # 0.01 K/uL (0-0.2); EOS % 2.1 %; EOS ABS # 0.15 K/uL (0-0.5); HEMATOCRIT 29.3 % (42-52); HEMOGLOBIN 9.9 g/dL (14.0-18.0); IG# 0.03 K/uL (0.00-0.02); LYMPH % 22.4 %; LYMPH ABS # 1.63 K/uL (1.2-3.4); MEAN CELL VOLUME 93.9 fL (80-100); MEAN CORPUSCULAR HEMOGLOBIN 31.7 pg (25-34); MEAN CORPUSCULAR HGB CONC 33.8 g/dl (32-36); MEAN PLATELET VOLUME 8.2 fL (7.4-10.4); MONO % 12.1 %; MONO ABS # 0.88 K/uL (0.11-0.59); NEUT % 62.9 %; NEUT ABS # 4.58 K/uL (1.4-6.5); PLATELET COUNT 205 K/uL (130-400); RED CELL DISTRIBUTION WIDTH SD 48.2 fL (36.4-46.3); WHITE BLOOD COUNT 7.28 K/uL (4.8-10.8)
[2018-04-15 07:10] VITALS: BP 116/64; PULSE 77; TEMP 36.5; O2SAT 97
[2018-04-15] MEDS: VANCOMYCIN IV 1,250 MG in SODIUM CHLORIDE 0.9% 250ML 250 ML IV SCH ×2 (08:57→23:54)
[2018-04-15] MEDS: LISINOPRIL 10 MG TAB PO SCH (08:58)
[2018-04-15] MEDS: METOPROLOL SUCC 50MG EXT REL TAB PO SCH (08:59)
[2018-04-15] MEDS: DOCUSATE SODIUM 100 MG CAP PO SCH (08:59)
[2018-04-15] MEDS: ASPIRIN 81 MG ECTAB PO SCH (08:59)
[2018-04-15] MEDS: ENOXAPARIN 40 MG/0.4 ML SYR SQ SCH (09:00)
[2018-04-15] MEDS ORDERED: CONSULT PHARMACY SCH ×2 (09:00)
[2018-04-15] MEDS ORDERED: DOXYCYCLINE IV 100 MG in DEXTROSE 5% 100ML 100 ML IV SCH (09:00)
[2018-04-15 09:07] LABS: CREATININE 1.18 mg/dl (0.60-1.40)
[2018-04-15] MEDS: INSULIN GLARGINE SOLOSTAR 100 UNITS/ML 3 ML PEN SC SCH ×2 (09:11→21:01)
[2018-04-15] MEDS: INSULIN ASPART 100 UNITS/ML 3 ML PEN SC SCH ×4 (09:12→20:55)
--- NOTE | 2018-04-15 09:18 | DIAGNOSTIC IMAGING REPORT ---
LEFT LOWER EXTREMITY ARTERIAL DOPPLER STUDY CLINICAL HISTORY: Left lower extremity pain. COMPARISON STUDY: None. FINDINGS: The right ankle-brachial index measured with the posterior tibial artery was 0.97 and the dorsalis pedis artery was 0.82. The left ankle-brachial index measured with the posterior tibial artery was 0.63 and the dorsalis pedis artery was 0.42. Normal triphasic waveforms and velocities within the left common femoral artery. Biphasic to monophasic waveform seen within the left superficial femoral artery without elevated peak systolic velocity to suggest stenosis. Calcified plaque throughout the left lower terminate arterial system. This is most pronounced within the left popliteal artery where there is near occlusion. Only a trickle of flow is identified through the mid to distal popliteal artery suggestive of high-grade/critical stenosis. This likely results in the monophasic waveforms seen throughout the left calf vessels. Focal area of elevated peak systolic velocity within the left anterior tibial artery suggests an area of stenosis. IMPRESSION: 1. High-grade/critical stenosis within the mid to distal popliteal artery which is nearly occluded. 2. Elevated peak systolic velocity within the left anterior tibial artery suggests an area of hemodynamically significant stenosis. 3. These findings were called/faxed to the referring physician's office following dictation. Electronically signed by: Sloan Dang M.D. 04/15/2018 9:16 AM Dictated Date/Time: 04/15/2018 9:12 AM
--- NOTE | 2018-04-15 10:36 | Pharmacy Progress Note ---
Pharmacy Abx Initial Consult Date of Service Apr 15, 2018. Pharmacy Dosing Scope Date of Consult: 04/14/18 Consultation requested by: Dr. Leach Pharmacy is consulted to initiate Vancomycin and Cefepime IV dosing therapy, order appropriate labs and adjust drug dose/frequency. Subjective The patient is a 72 year old male admitted on Apr 14, 2018 at 21:14. Objective Height (Feet): 6 Height (Inches): 0.00 Weight (Kilograms): 85.000 Vital Signs (Past 12Hrs) Vital Signs Past 12 Hours Date Time Temp Pulse Resp B/P (MAP) Pulse Ox O2 Delivery O2 Flow Rate FiO2 04/15/18 07:10 36.5 77 16 116/64 (81) 97 Room Air 04/15/18 00:00 Room Air 04/14/18 23:34 38.0 88 20 124/63 (83) 97 Room Air 04/14/18 22:45 37.7 107 20 130/65 (86) 96 Room Air Lab Results (24Hrs) Laboratory Tests (24 Hours) Test 04/14/18 17:49 04/14/18 23:22 04/15/18 05:37 C-Reactive Protein 12.20 mg/dl (0-0.29) H Erythrocyte Sedimentation Rate 59 mm/hr (0-14) H Lactic Acid Level 1.8 mmol/L (0.4-2.0) White Blood Count 7.28 K/uL (4.8-10.8) Red Blood Count 3.12 M/uL (4.7-6.1) L Hemoglobin 9.9 g/dL (14.0-18.0) L Hematocrit 29.3 % (42-52) L Mean Corpuscular Volume 93.9 fL (80-100) Mean Corpuscular Hemoglobin 31.7 pg (25-34) Mean Corpuscular Hemoglobin Concent 33.8 g/dl (32-36) Platelet Count 205 K/uL (130-400) Mean Platelet Volume 8.2 fL (7.4-10.4) Neutrophils (%) (Auto) 62.9 % Lymphocytes (%) (Auto) 22.4 % Monocytes (%) (Auto) 12.1 % Eosinophils (%) (Auto) 2.1 % Basophils (%) (Auto) 0.1 % Neutrophils # (Auto) 4.58 K/uL (1.4-6.5) Lymphocytes # (Auto) 1.63 K/uL (1.2-3.4) Monocytes # (Auto) 0.88 K/uL (0.11-0.59) H Eosinophils # (Auto) 0.15 K/uL (0-0.5) Basophils # (Auto) 0.01 K/uL (0-0.2) Micro Results Date/Time Source Procedure Growth Status 04/14/18 23:22 Blood Blood Culture Pending Received 04/14/18 23:10 Blood Blood Culture Pending Received Risk Factors for Resistance * Hospitalization for 48 hours or more within the past 90 days * Surgery 01/2018 * Antimicrobial use within the last 90 days Assessment & Plan Assessment 72 year old male with sepsis secondary to non-healing foot wound with cellulitis. * Surgery on foot in 01/2018 * PMH of DM, PVD, tobacco abuse * Blood cultures pending * Scr trending down. Plan Vancomycin and cefepime for treatment of SSI with possible osteomyelitis. Vancomycin IV * Loading dose: 2125 mg (25 mg/kg) * Maintenance dose:1250] mg IV (15 mg/kg) every 16 hours * Goal trough level: 15 to 20 mcg/mL * Trough/Random level ordered for 04/16/18 @1530 Cefepime * Dose was originally adjusted to 2gm q 24 hours for crcl 30-60 ml/min * Crcl improved 04/15 and dose was adjusted to 2 gm q 12 hours for crcl >60. Pharmacy will continue to follow and will adjust dose/frequency as necessary. Thank you.
--- NOTE | 2018-04-15 10:43 | Progress Note ---
Progress Note Date of Service Apr 15, 2018. Progress Note ID Consult Dictated #[id number] A/P: 1. Post op Infection, likely infected hardware Left foot -Continue emperic abx for now, follow culture, gnr on gram stain h/o klebsiella in past -Surgical eval pending, pt now with high grade stenosis on ANTONIO, vascular eval pending -Follow cultures, thank you
[2018-04-15 10:54] VITALS: Ht 182.9 cm; Wt 85.0 kg
--- NOTE | 2018-04-15 12:17 | DIAGNOSTIC IMAGING REPORT ---
LEFT FOREFOOT MRI HISTORY: L foot wound ro osteomyelitis TECHNIQUE: Multiplanar multisequence MRI of the left forefoot was performed both before and after the intravenous administration of contrast. COMPARISON STUDY: Left foot radiograph 04/14/2018. FINDINGS: Patient is status post fusion of the first MTP joint with a cortical plate and screws. This results in metallic artifact at this location. The transverse fracture at the neck of the first metatarsal is again noted. This demonstrates carotid borders and is suggestive of a subacute/healing fracture. Evaluation for osteomyelitis within the first digit is essentially nondiagnostic due to the metallic artifact at this location. No definite areas of bony erosion identified. The distal phalanx of the first toe demonstrate a normal marrow signal intensity. Additional bony structures of the left forefoot are intact. There is subcutaneous edema throughout the forefoot. No left-sided fluid collections to suggest an abscess. Mild enhancement within the soft tissues of the first toe. This favors a cellulitis. Focal abnormal signal within the flexor hallucis longus tendon at the level of the neck of the first metatarsal. This likely represents a tendinopathy. IMPRESSION: 1. Prior fusion of the first MTP joint with a cortical plate and screws. There is confirmation of the healing fracture at the neck of the first metatarsal. This is bridged by the cortical plate. 2. Evaluation for osteomyelitis within the first digit is essentially nondiagnostic due to the metallic artifact from the hardware. However, no definite areas of bony destruction to suggest osteomyelitis. 3. No loculated fluid collections to suggest an abscess. 4. Soft tissue edema and enhancement within the forefoot most pronounced at the first toe. This likely represents a cellulitis. 5. Focal tendinopathy within the flexor hallucis longus. Electronically signed by: Sloan Dang M.D. 04/15/2018 12:15 PM Dictated Date/Time: 04/15/2018 12:05 PM
--- NOTE | 2018-04-15 12:20 | INFECT. DISEASE CONSULTATION ---
DATE OF CONSULTATION: 04/15/2018 HISTORY OF PRESENT ILLNESS: This is a 72-year-old gentleman who was admitted to the hospital with worsening left foot pain. He has had multiple surgeries to the left foot, most recently being a revision surgery in 01/2018. He does have remaining hardware in place. He states that a few weeks after surgery, he had significant erythema and swelling of the incision over his right toe. This spontaneously opened a few weeks ago and significant amount of purulent material was expressed. He did follow up with his card hanger and a culture of this recently reportedly grew MRSA; 04/14/2018 culture is pending that has few gram negative rods. Previous culture dated 02/12/2018 grew Klebsiella oxytoca and previous culture in early December or early November of this year, again grew Klebsiella. Both of these are pansensitive. He was on Bactrim as an outpatient prior to admission, but states that he had only been on this for 1-2 days. He had worsening pain and drainage and presented to the Emergency Room. He did have a fever overnight of 38 degrees and he does admit to subjective fevers at home. He currently is afebrile. On my examination, he is being evaluated by the wound center and his dressing has been removed. He has not had previous follow up with wound center prior to this. He states he was told by his card hanger that he had a suture that was reacting and that was likely the course for poor wound healing. He currently denies any fevers or chills. He is tolerating antibiotics well. He was placed on vancomycin and cefepime empirically. His white blood cell count is normal. Wound and blood cultures are pending at this time. An x-ray was performed and did show the hardware to be intact. There is no evidence of osteomyelitis; however, the patient states an MRI is pending for later today. He denies any cough, shortness of breath, chest pain, nausea, vomiting, diarrhea or abdominal pain. His remaining review of systems is unremarkable. PAST MEDICAL HISTORY: Significant for coronary artery disease, type 2 diabetes, history of DVT, peripheral vascular disease, hyperlipidemia. PAST SURGICAL HISTORY: Significant for CABG and multiple surgeries to the left foot. FAMILY HISTORY: Noncontributory. SOCIAL HISTORY: Significant for cigar use. He denies any alcohol or drug use. He has no sick contacts. ALLERGIES: There are no known drug allergies. CURRENT MEDICATIONS: Lipitor, cefepime, Lovenox, Colace, aspirin, lisinopril, Toprol-XL, Lantus, vancomycin, Tylenol, MiraLax, morphine, and Zofran. PHYSICAL EXAMINATION: VITAL SIGNS: He is currently afebrile, T-max is 38, blood pressure is 116/64, pulse 77, respiratory rate 16, oxygen saturation is 97% on room air. GENERAL: He is awake, alert, and oriented x3. He is in no acute distress. HEENT: Mucous membranes are moist. Extraocular muscles are intact. HEART: Regular. LUNGS: Clear bilaterally. ABDOMEN: Soft, nontender, nondistended. EXTREMITIES: There is no lower extremity edema. Examination of the left foot reveals 2 plantar incisions to be well healed and closed. The incision over the first toe has significant erythema, induration, and minimal seropurulent drainage. LABORATORY STUDIES: CBC today, white blood cell count is 7.2, hemoglobin 9.9, platelets 205. A sed rate done in the ER is 59. Chemistry panel in the ER, sodium 134, potassium 4.3, chloride 102, bicarb 23, BUN 17, creatinine 1.3, glucose 107. CRP is 12.2. Urine, old cultures 02/12/2017 grew Klebsiella oxytoca, which was pansensitive. A wound culture done in the ER now has rare gram negative rods. Blood cultures are pending. Foot x-ray is as above. He did have an ultrasound done this morning with ABIs that show high grade critical stenosis in the mid to distal popliteal artery that is nearly occluded and a significant stenosis seen in the anterior tibial artery on the left. No DVT was noted in the ER. ASSESSMENT AND PLAN: Postoperative wound infection of the left foot with a high-grade occlusion. He will be continued on empiric antibiotics pending the result of wound culture and blood culture. Vascular surgery consult is pending. We will follow along with you. Thank you for this consultation.
[2018-04-15] MEDS: CEFEPIME IV 2,000 MG in SYRINGE 7.5 ML IV SCH ×2 (13:53→23:52)
[2018-04-15 16:24] VITALS: BP 123/66; PULSE 69; TEMP 37.1; O2SAT 94
[2018-04-15] MEDS: BOOST GLUCOSE CONTROL VANILLA PO SCH (17:00)
--- NOTE | 2018-04-15 17:38 | Podiatry Consultation ---
Podiatry Consultation Date of Consultation: Apr 15, 2018. Attending Physician: Sona Echeverria DO History of Present Illness Dev is a patient well-known to me in the outpatient setting for surgery in January 2017. He had a dorsiflexion osteotomy to correct the malunion of a first MTP fusion. Current fixation in place is a right medical plate. He has had multiple wound healing complications of the 3 incision sites from the original surgery. He has successfully healed the medial and plantar incisions that were performed intraoperatively. The dorsal foot wound was beginning to heal until approximately 2 weeks ago when it began deteriorating. He was last seen by my partner in the office yesterday and seen by me as of the Wednesday of this week. On Wednesday he presented with a red hot swollen foot and incision and drainage was performed in the office exuding purulent drainage which was cultured. Culture results are currently pending at this time. He represented yesterday to my partner with worsening cellulitis and proximal streaking. She sent him over the emergency department to be admitted for IV antibiotics and possible incision and drainage. Upon admission he was noted to be febrile with a normal white blood cell count and elevated ESR to level of 59. He is currently on IV antibiotics and no longer febrile. His white count remained stable and he is afebrile at this point. Of interesting note, he relayed to me some previous unknown information of a total left hip replacement from which he had a suture reaction at that time. He required extensive IV antibiosis that time as well. He failed to present that information to me prior to the original operation in January 2017. Past Medical/Surgical History Medical Problems: (1) Cellulitis of left lower extremity Status: Acute (2) Non-healing surgical wound Status: Acute (3) Postoperative wound infection Status: Acute Family History Heart disease Social History Smoking Status: Light Tobacco Smoker (occasional cigars ) Alcohol Use: none Drug Use: none Marital Status: Occupation Status: retired Allergies Coded Allergies: No Known Allergies (Unverified , 04/14/18) Home Medications Scheduled Aspirin (Aspirin 81), 81 MG PO QAM Atorvastatin (Lipitor), 1 TAB PO QPM Fish Oil ([place]-3), 1 CAP PO BID Insulin Glargine (Basaglar Kwikpen), 46 UNITS SC QPM Latanoprost (Xalatan 0.005% Oph Jolie), 1 DROPS OPB HS Liraglutide (Victoza), 1.2 MG SQ QAM Lisinopril (Zestril), 10 MG PO QAM Metformin Hcl (Glucophage), 1,000 MG PO BID Metoprolol Succ (Toprol Xl) (Toprol-Xl ), 100 MG PO QAM Sildenafil Citrate (Viagra), 100 MG PO PRN Scheduled PRN Acetaminophen (Tylenol Arthitis Ext Rel), 2 TAB PO Q8H PRN for Pain Current Inpatient Medications Current Inpatient Medications Medications (Trade) Dose Ordered Sig/Jennifer Route Start Time Stop Time Status Last Admin Dose Admin Enoxaparin Sodium (Lovenox Inj) 40 mg Q24H SQ 04/15/18 09:00 05/15/18 08:59 Acetaminophen (Tylenol Tab) 650 mg Q4H PRN PO 04/14/18 22:45 05/14/18 22:44 04/15/18 12:51 650 MG Insulin Aspart (novoLOG ASPART) SLIDING SCALE If C... ACHS SC 04/15/18 06:30 05/15/18 06:29 Glucose (Glucose 40% Gel) 15-30 GRAMS 15 GRAMS... UD PRN PO 04/14/18 22:45 05/14/18 22:44 Glucose (Glucose Chew Tab) 4-8 Tablets 4 Tabl... UD PRN PO 04/14/18 22:45 05/14/18 22:44 Dextrose (Dextrose 50% 50ML Syringe) 25-50ML 25ML FOR ... UD PRN IV 04/14/18 22:45 05/14/18 22:44 Glucagon (Glucagon Inj) 1 mg UD PRN SQ 04/14/18 22:45 05/14/18 22:44 Carbohydrates (Carbohydrates For Hypoglycemia) 15-30 GRAMS 15 grams if BSG 54-69... UD PRN PO 04/14/18 22:45 05/14/18 22:44 Prochlorperazine Edisylate 5 mg/ Syringe 5 ml @ 5 mls/min Q6H PRN IV 04/14/18 22:45 05/14/18 22:44 Docusate Sodium (coLACE CAP) 100 mg DAILY PO 04/15/18 09:00 05/15/18 08:59 04/15/18 08:59 100 MG Polyethylene (Miralax Powder Packet) 17 gm DAILY PRN PO 04/14/18 22:45 05/14/18 22:44 Morphine Sulfate (MoRPHine SULFATE INJ) 4 mg Q3H PRN IV 04/14/18 22:45 04/28/18 22:44 Aspirin (Ecotrin Tab) 81 mg QAM PO 04/15/18 09:00 05/15/18 08:59 04/15/18 08:59 81 MG Atorvastatin Calcium (Lipitor Tab) 40 mg QPM PO 04/15/18 21:00 05/15/18 20:59 Latanoprost (Xalatan Oph Soln) 1 drops HS OPB 04/15/18 21:00 05/15/18 20:59 Lisinopril (Zestril Tab) 10 mg QAM PO 04/15/18 09:00 05/15/18 08:59 04/15/18 08:58 10 MG Metoprolol Succinate (Toprol Xl Tab) 100 mg QAM PO 04/15/18 09:00 05/15/18 08:59 04/15/18 08:59 100 MG Insulin Glargine (Lantus Solostar Pen) 20 units BID SC 04/15/18 09:00 05/15/18 08:59 04/15/18 09:11 20 UNITS Vancomycin HCl 1250 mg/Sodium Chloride 275 ml @ 125 mls/hr Q16H IV 04/15/18 08:00 04/25/18 07:59 04/15/18 08:57 125 MLS/HR Vancomycin HCl (Consult) 1 ea UD PRN N/A 04/14/18 23:15 05/14/18 23:14 Cefepime HCl (Consult) 1 ea UD PRN N/A 04/14/18 23:15 05/14/18 23:14 Cefepime HCl 2000 mg/Syringe 20 ml @ 5 mls/min Q12H IV 04/15/18 12:00 04/25/18 00:00 04/15/18 13:53 5 MLS/MIN Enteral Nutritional Formula (Boost Glucose Control) 1 can BIDM PO 04/15/18 17:00 05/15/18 16:59 Review of Systems A 12 system review of system was conducted and noted to be negative other than the HPI above Physical Exam Date Time Temp Pulse Resp B/P (MAP) Pulse Ox O2 Delivery O2 Flow Rate FiO2 04/15/18 16:24 37.1 69 16 123/66 (85) 94 Room Air 04/15/18 16:00 Room Air 04/15/18 08:00 Room Air 04/15/18 07:10 36.5 77 16 116/64 (81) 97 Room Air 04/15/18 00:00 Room Air 04/14/18 23:34 38.0 88 20 124/63 (83) 97 Room Air 04/14/18 22:45 37.7 107 20 130/65 (86) 96 Room Air 04/14/18 21:53 37.0 92 20 160/86 97 04/14/18 21:17 92 160/86 97 Room Air 04/14/18 20:52 98 Room Air 04/14/18 19:19 90 112/69 98 Room Air Patient is alert and oriented 3 in no acute distress vital signs appear to be stable at this time. Neurovascular status is intact to the right lower extremity and unchanged from previous physical exams. He has a dressing in place to the right dorsal foot. It was deemed unnecessary to examine his wound at this time due to multiple prior examinations and examination as of yesterday. His cellulitis of the right foot and leg appear to be improving at this time. He no longer has proximal streaking noted and there is no warmth of the foot at this time. Edema appears to be decreased at this time as well. Calor is no longer present to the right lower extremity. He does have an elevated ESR at this time his white blood cell count is normal. Laboratory Results Last 24 Hours Test 04/14/18 17:49 04/14/18 19:08 04/14/18 22:15 04/14/18 23:10 White Blood Count 9.73 K/uL Red Blood Count 3.30 M/uL Hemoglobin 10.5 g/dL 11.2 g/dL Hematocrit 30.7 % 33.0 % Mean Corpuscular Volume 93.0 fL Mean Corpuscular Hemoglobin 31.8 pg Mean Corpuscular Hemoglobin Concent 34.2 g/dl Platelet Count 233 K/uL Mean Platelet Volume 8.4 fL Neutrophils (%) (Auto) 74.3 % Lymphocytes (%) (Auto) 12.1 % Monocytes (%) (Auto) 12.2 % Eosinophils (%) (Auto) 0.9 % Basophils (%) (Auto) 0.1 % Neutrophils # (Auto) 7.22 K/uL Lymphocytes # (Auto) 1.18 K/uL Monocytes # (Auto) 1.19 K/uL Eosinophils # (Auto) 0.09 K/uL Basophils # (Auto) 0.01 K/uL RDW Standard Deviation 47.6 fL RDW Coefficient of Variation 13.9 % Immature Granulocyte % (Auto) 0.4 % Immature Granulocyte # (Auto) 0.04 K/uL Erythrocyte Sedimentation Rate 59 mm/hr Sodium Level 134 mmol/L Potassium Level mmol/L 4.3 mmol/L Chloride Level 102 mmol/L Carbon Dioxide Level 23 mmol/L Anion Gap 9.0 mmol/L Blood Urea Nitrogen 17 mg/dl Creatinine 1.32 mg/dl Est Creatinine Clear Calc Drug Dose 56.4 ml/min Estimated GFR () 62.5 Estimated GFR (Non- 53.9 BUN/Creatinine Ratio 12.7 Random Glucose 107 mg/dl Calcium Level 9.6 mg/dl Total Bilirubin 0.7 mg/dl Direct Bilirubin mg/dl 0.2 mg/dl Aspartate Amino Transf (AST/SGOT) U/L 12 U/L Alanine Aminotransferase (ALT/SGPT) 24 U/L Alkaline Phosphatase 70 U/L C-Reactive Protein 12.20 mg/dl Total Protein 8.1 gm/dl Albumin 3.6 gm/dl Magnesium Level 1.9 mg/dl Thyroid Stimulating Hormone (TSH) 0.654 uIu/ml Bedside Glucose 82 mg/dl Absolute Reticulocyte Count 0.04 10^6/uL Percent Reticulocyte Count 1.2 % Iron Level 19 mcg/dl Total Iron Binding Capacity 254 mcg/dl Transferrin 195 mg/dl Transferrin % Saturation 7 % Ferritin 628.6 ng/ml Vitamin B12 Level 260 pg/mL Folate 19.98 ng/mL Test 04/14/18 23:22 04/15/18 05:37 04/15/18 05:40 04/15/18 07:28 Prothrombin Time 10.7 SECONDS Prothromb Time International Ratio 1.0 Lactic Acid Level 1.8 mmol/L White Blood Count 7.28 K/uL Red Blood Count 3.12 M/uL Hemoglobin 9.9 g/dL Hematocrit 29.3 % Mean Corpuscular Volume 93.9 fL Mean Corpuscular Hemoglobin 31.7 pg Mean Corpuscular Hemoglobin Concent 33.8 g/dl Platelet Count 205 K/uL Mean Platelet Volume 8.2 fL Neutrophils (%) (Auto) 62.9 % Lymphocytes (%) (Auto) 22.4 % Monocytes (%) (Auto) 12.1 % Eosinophils (%) (Auto) 2.1 % Basophils (%) (Auto) 0.1 % Neutrophils # (Auto) 4.58 K/uL Lymphocytes # (Auto) 1.63 K/uL Monocytes # (Auto) 0.88 K/uL Eosinophils # (Auto) 0.15 K/uL Basophils # (Auto) 0.01 K/uL RDW Standard Deviation 48.2 fL RDW Coefficient of Variation 14.0 % Immature Granulocyte % (Auto) 0.4 % Immature Granulocyte # (Auto) 0.03 K/uL Creatinine 1.18 mg/dl Est Creatinine Clear Calc Drug Dose 63.0 ml/min Estimated GFR () 71.5 Estimated GFR (Non- 61.7 Bedside Glucose 96 mg/dl Test 04/15/18 12:02 04/15/18 16:22 Bedside Glucose 118 mg/dl 134 mg/dl Assessment & Plan Right foot cellulitis and surgical wound dehiscence -As stated in the HPI it is thought that the patient has a deep suture abscess. He had cultures taken in my office on Wednesday which are still pending. I have no results of these cultures at this time. I appreciate the infectious disease input. He is currently medically stable with no fevers and a stable white blood cell count. MRI has been obtained and showed to be negative for any cortical destruction though the imaging is occluded by the hardware that is in place to the right foot. I do not believe that the hardware needs to be removed at this time though if absolutely necessary this could be performed. It appears radiographically and through MR imaging that cortical bridging has occurred across the osteotomy site that has been performed previously. There is also no bone marrow edema noted on the MRI. As previously discussed my office the patient a second opinion is not unwarranted at this time. He wishes to see an orthopedic surgeon for secondary opinion and I welcome this. I do not believe he needs a vascular consultation as he has vascular status intact to the right lower extremity. I do welcome vascular surgery's input if they feel that the patient needs to be seen. He has been able to heal wounds to the right lower extremity in the past as well as recent as of this month. I do believe he would benefit from an incision and drainage at this time however he would like to collect more information and see a second opinion regarding this matter. If he elects to have an incision and drainage I am available this weekend and it can be performed at any time. Patient would require being n.p.o. for minimum of 8 hours prior to the incision and drainage. I will defer on antibiotic treatment to infectious disease. I discussed this plan with Dr. Echeverria who is in agreement. I will continue follow the patient and see him tomorrow. Thank you for the consultation and allowing me to take part in care for this patient. Additional Copies To Sona Echeverria, DO
--- NOTE | 2018-04-15 18:22 | Progress Note ---
Medicine Progress Note Date & Time of Visit: Apr 15, 2018 at 12:58. Subjective 72 yo M with PAD, CAD, and DMII presents with sepsis 2/2 a nonhealing foot wound 3 months post-operatively. He underwent a rebreaking of his prior fusion of his L great toe in January 2018, performed by manager math, Dr. Rouse. He saw him in the clinic earlier this week and and I&D was felt to be needed because of the possibility of a suture abscess. The patient wanted to wait and get a second opinion from a [facility] Orthopedic surgeon on this. He set up an appointment for next week, however, presented to the ER because he became more ill. He reports erythema and swelling as well as pain in the toe that got worse this week. Overnight his symptoms have resolved and he is clinically resuscitated. At this point, he is awaiting a possible second opinion by ortho. He denies any pain, chest pain, SOB, fevers, or chills. He has stable atherosclerotic disease in his L leg for which he was seen at [facility] several years ago. At that time he reports undergoing angioplasty and a stent was not able to be placed. He declined a vascular bypass at that time as the risks were too much for him personally. He reports stable claudication with exercise without any increase. He has also had several wounds on that same leg heal without issue despite his PAD. Vascular consult was cancelled as a result. Objective Last 8 Hrs Date Time Temp Pulse Resp B/P (MAP) Pulse Ox O2 Delivery O2 Flow Rate FiO2 04/15/18 08:00 Room Air 04/15/18 07:10 36.5 77 16 116/64 (81) 97 Room Air Physical Exam: GEN: WNWD, in no acute distress, alert and appropriate, tanned HEENT: NC/AT, normal sclerae, MMM CARDIO: reg rate, S1/2 heard without m/g/r LUNGS: CTA bilaterally, no crackles, rales or wheezes, good diaphragmatic excursion EXTREMITY: no LE swelling or edema, extremities are warm and well-perfused, L foot and great toe are wrapped. Area just around ulcer was evaluated with no erythema seen. Gauze is c/d/i without drainage. NEURO: CN 2-12 grossly intact, mentating normally MUSC: moves all extremities with ease. No focal deficits. SKIN: warm and dry and ulcerative wound on great toe. Laboratory Results: 04/15/18 05:37 Red Blood Count 3.12, Mean Corpuscular Volume 93.9, Mean Corpuscular Hemoglobin 31.7, Mean Corpuscular Hemoglobin Concent 33.8, Mean Platelet Volume 8.2, Neutrophils (%) (Auto) 62.9, Lymphocytes (%) (Auto) 22.4, Monocytes (%) (Auto) 12.1, Eosinophils (%) (Auto) 2.1, Basophils (%) (Auto) 0.1, Neutrophils # (Auto ) 4.58, Lymphocytes # (Auto) 1.63, Monocytes # (Auto) 0.88, Eosinophils # (Auto ) 0.15, Basophils # (Auto) 0.01 04/14/18 17:49 04/14/18 19:08 04/15/18 05:40 Test 04/14/18 17:49 04/14/18 19:08 04/14/18 23:10 04/14/18 23:22 Erythrocyte Sedimentation Rate 59 mm/hr (0-14) Anion Gap 9.0 mmol/L (3-11) BUN/Creatinine Ratio 12.7 (10-20) Calcium Level 9.6 mg/dl (8.5-10.1) Total Bilirubin 0.7 mg/dl (0.2-1) Alanine Aminotransferase (ALT/SGPT) 24 U/L (12-78) Alkaline Phosphatase 70 U/L (45-117) C-Reactive Protein 12.20 mg/dl (0-0.29) Total Protein 8.1 gm/dl (6.4-8.2) Albumin 3.6 gm/dl (3.4-5.0) Magnesium Level 1.9 mg/dl (1.8-2.4) Direct Bilirubin 0.2 mg/dl (0-0.2) Aspartate Amino Transf (AST/SGOT) 12 U/L (15-37) Thyroid Stimulating Hormone (TSH) 0.654 uIu/ml (0.300-4.500) Absolute Reticulocyte Count 0.04 10^6/uL (0.02-0.10) Percent Reticulocyte Count 1.2 % (0.5-2.0) Iron Level 19 mcg/dl (35-175) Total Iron Binding Capacity 254 mcg/dl (250-450) Transferrin 195 mg/dl (200-360) Transferrin % Saturation 7 % (20-50) Ferritin 628.6 ng/ml (8.0-388.0) Vitamin B12 Level 260 pg/mL (211-911) Folate 19.98 ng/mL (>5.38) Prothrombin Time 10.7 SECONDS (9.0-12.0) Prothromb Time International Ratio 1.0 (0.9-1.1) Lactic Acid Level 1.8 mmol/L (0.4-2.0) Test 04/15/18 05:37 04/15/18 05:40 04/15/18 16:22 White Blood Count 7.28 K/uL (4.8-10.8) Red Blood Count 3.12 M/uL (4.7-6.1) Hemoglobin 9.9 g/dL (14.0-18.0) Hematocrit 29.3 % (42-52) Mean Corpuscular Volume 93.9 fL (80-100) Mean Corpuscular Hemoglobin 31.7 pg (25-34) Mean Corpuscular Hemoglobin Concent 33.8 g/dl (32-36) Platelet Count 205 K/uL (130-400) Mean Platelet Volume 8.2 fL (7.4-10.4) Neutrophils (%) (Auto) 62.9 % Lymphocytes (%) (Auto) 22.4 % Monocytes (%) (Auto) 12.1 % Eosinophils (%) (Auto) 2.1 % Basophils (%) (Auto) 0.1 % Neutrophils # (Auto) 4.58 K/uL (1.4-6.5) Lymphocytes # (Auto) 1.63 K/uL (1.2-3.4) Monocytes # (Auto) 0.88 K/uL (0.11-0.59) Eosinophils # (Auto) 0.15 K/uL (0-0.5) Basophils # (Auto) 0.01 K/uL (0-0.2) RDW Standard Deviation 48.2 fL (36.4-46.3) RDW Coefficient of Variation 14.0 % (11.5-14.5) Immature Granulocyte % (Auto) 0.4 % Immature Granulocyte # (Auto) 0.03 K/uL (0.00-0.02) Est Creatinine Clear Calc Drug Dose 63.0 ml/min Estimated GFR () 71.5 Estimated GFR (Non- 61.7 Bedside Glucose 134 mg/dl (70-99) Date/Time Source Procedure Growth Status 04/14/18 23:22 Blood Blood Culture Pending Received Last 24 Hours Test 04/14/18 17:49 04/14/18 19:08 04/14/18 22:15 04/14/18 23:10 White Blood Count 9.73 K/uL Red Blood Count 3.30 M/uL Hemoglobin 10.5 g/dL 11.2 g/dL Hematocrit 30.7 % 33.0 % Mean Corpuscular Volume 93.0 fL Mean Corpuscular Hemoglobin 31.8 pg Mean Corpuscular Hemoglobin Concent 34.2 g/dl Platelet Count 233 K/uL Mean Platelet Volume 8.4 fL Neutrophils (%) (Auto) 74.3 % Lymphocytes (%) (Auto) 12.1 % Monocytes (%) (Auto) 12.2 % Eosinophils (%) (Auto) 0.9 % Basophils (%) (Auto) 0.1 % Neutrophils # (Auto) 7.22 K/uL Lymphocytes # (Auto) 1.18 K/uL Monocytes # (Auto) 1.19 K/uL Eosinophils # (Auto) 0.09 K/uL Basophils # (Auto) 0.01 K/uL RDW Standard Deviation 47.6 fL RDW Coefficient of Variation 13.9 % Immature Granulocyte % (Auto) 0.4 % Immature Granulocyte # (Auto) 0.04 K/uL Erythrocyte Sedimentation Rate 59 mm/hr Sodium Level 134 mmol/L Potassium Level mmol/L 4.3 mmol/L Chloride Level 102 mmol/L Carbon Dioxide Level 23 mmol/L Anion Gap 9.0 mmol/L Blood Urea Nitrogen 17 mg/dl Creatinine 1.32 mg/dl Est Creatinine Clear Calc Drug Dose 56.4 ml/min Estimated GFR () 62.5 Estimated GFR (Non- 53.9 BUN/Creatinine Ratio 12.7 Random Glucose 107 mg/dl Calcium Level 9.6 mg/dl Total Bilirubin 0.7 mg/dl Direct Bilirubin mg/dl 0.2 mg/dl Aspartate Amino Transf (AST/SGOT) U/L 12 U/L Alanine Aminotransferase (ALT/SGPT) 24 U/L Alkaline Phosphatase 70 U/L C-Reactive Protein 12.20 mg/dl Total Protein 8.1 gm/dl Albumin 3.6 gm/dl Magnesium Level 1.9 mg/dl Thyroid Stimulating Hormone (TSH) 0.654 uIu/ml Bedside Glucose 82 mg/dl Absolute Reticulocyte Count 0.04 10^6/uL Percent Reticulocyte Count 1.2 % Iron Level 19 mcg/dl Total Iron Binding Capacity 254 mcg/dl Transferrin 195 mg/dl Transferrin % Saturation 7 % Ferritin 628.6 ng/ml Vitamin B12 Level 260 pg/mL Folate 19.98 ng/mL Test 04/14/18 23:22 04/15/18 05:37 04/15/18 05:40 04/15/18 07:28 Prothrombin Time 10.7 SECONDS Prothromb Time International Ratio 1.0 Lactic Acid Level 1.8 mmol/L White Blood Count 7.28 K/uL Red Blood Count 3.12 M/uL Hemoglobin 9.9 g/dL Hematocrit 29.3 % Mean Corpuscular Volume 93.9 fL Mean Corpuscular Hemoglobin 31.7 pg Mean Corpuscular Hemoglobin Concent 33.8 g/dl Platelet Count 205 K/uL Mean Platelet Volume 8.2 fL Neutrophils (%) (Auto) 62.9 % Lymphocytes (%) (Auto) 22.4 % Monocytes (%) (Auto) 12.1 % Eosinophils (%) (Auto) 2.1 % Basophils (%) (Auto) 0.1 % Neutrophils # (Auto) 4.58 K/uL Lymphocytes # (Auto) 1.63 K/uL Monocytes # (Auto) 0.88 K/uL Eosinophils # (Auto) 0.15 K/uL Basophils # (Auto) 0.01 K/uL RDW Standard Deviation 48.2 fL RDW Coefficient of Variation 14.0 % Immature Granulocyte % (Auto) 0.4 % Immature Granulocyte # (Auto) 0.03 K/uL Creatinine 1.18 mg/dl Est Creatinine Clear Calc Drug Dose 63.0 ml/min Estimated GFR () 71.5 Estimated GFR (Non- 61.7 Bedside Glucose 96 mg/dl Test 04/15/18 12:02 Bedside Glucose 118 mg/dl Date/Time Source Procedure Growth Status 04/14/18 23:22 Blood Blood Culture Pending Received 04/14/18 23:10 Blood Blood Culture Pending Received Assessment & Plan 72 yo M with PAD, CAD, and DMII presents with sepsis 2/2 a nonhealing foot wound 3 months post-operatively. He underwent a rebreaking of his prior fusion of his L great toe in January 2018, performed by manager math, Dr. Rouse. He saw him in the clinic earlier this week and and I&D was felt to be needed because of the possibility of a suture abscess. The patient wanted to wait and get a second opinion from a [facility] Orthopedic surgeon on this. He set up an appointment for next week, however, presented to the ER because he became more ill. He reports erythema and swelling as well as pain in the toe that got worse this week. Overnight his symptoms have resolved and he is clinically resuscitated. At this point, he is awaiting a possible second opinion by ortho. He denies any pain, chest pain, SOB, fevers, or chills. He has stable atherosclerotic disease in his L leg for which he was seen at [facility] several years ago. At that time he reports undergoing angioplasty and a stent was not able to be placed. He declined a vascular bypass at that time as the risks were too much for him personally. He reports stable claudication with exercise without any increase. He has also had several wounds on that same leg heal without issue despite his PAD. Vascular consult was cancelled as a result. 1. Sepsis 2/2 diabetic post-op foot wound-resuscitated. Wound culture taken in clinic earlier this week. Awaiting those results and pending blood cultures , too. Per ID cont Vanc/Cefepime empirically. Cellulitis was not seen around wound today. Osteomyelitis was not seen on MRI. Also, vascular consult was cancelled per above reasoning. Dr. Rouse hs evaluated the patient today nd thinks he has a suture abscess. Although he recommends an I&D, the patient is resistant to proceed without a second opinion from Orthopedics. Awaiting ortho evaluation. Wound care was consulted. Pt has new patient evaluation set up [facility] wound care on Mon. 2. CAD s/p CABG-stable, no chest pain or other symptoms. Cont medical management 3. HTN-controlled, cont lisinopril 4. 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 5. Anemia-iron deficiency is present but may be multifactorial etiology-cont workup as outpatient. Start iron supplementation. No indication for transfusion at this time. 6. PAD-stable disease. Cont medical management only. Wounds have healed despite this degree of plaque in the leg. DVT proph-Lovenox. Full code Dispo-awaiting Ortho evaluation and patient's decision on I&D. Awaiting culture results. DO Maddy Dyer Hospitalist Consultants: Ortho Podiatry ID Wound Care Current Inpatient Medications: Current Inpatient Medications Medications (Trade) Dose Ordered Sig/Jennifer Route Start Time Stop Time Status Last Admin Dose Admin Enoxaparin Sodium (Lovenox Inj) 40 mg Q24H SQ 04/15/18 09:00 05/15/18 08:59 Acetaminophen (Tylenol Tab) 650 mg Q4H PRN PO 04/14/18 22:45 05/14/18 22:44 04/15/18 12:51 650 MG Insulin Aspart (novoLOG ASPART) SLIDING SCALE If C... ACHS SC 04/15/18 06:30 05/15/18 06:29 Glucose (Glucose 40% Gel) 15-30 GRAMS 15 GRAMS... UD PRN PO 04/14/18 22:45 05/14/18 22:44 Glucose (Glucose Chew Tab) 4-8 Tablets 4 Tabl... UD PRN PO 04/14/18 22:45 05/14/18 22:44 Dextrose (Dextrose 50% 50ML Syringe) 25-50ML 25ML FOR ... UD PRN IV 04/14/18 22:45 05/14/18 22:44 Glucagon (Glucagon Inj) 1 mg UD PRN SQ 04/14/18 22:45 05/14/18 22:44 Carbohydrates (Carbohydrates For Hypoglycemia) 15-30 GRAMS 15 grams if BSG 54-69... UD PRN PO 04/14/18 22:45 05/14/18 22:44 Prochlorperazine Edisylate 5 mg/ Syringe 5 ml @ 5 mls/min Q6H PRN IV 04/14/18 22:45 05/14/18 22:44 Docusate Sodium (coLACE CAP) 100 mg DAILY PO 04/15/18 09:00 05/15/18 08:59 04/15/18 08:59 100 MG Polyethylene (Miralax Powder Packet) 17 gm DAILY PRN PO 04/14/18 22:45 05/14/18 22:44 Morphine Sulfate (MoRPHine SULFATE INJ) 4 mg Q3H PRN IV 04/14/18 22:45 04/28/18 22:44 Aspirin (Ecotrin Tab) 81 mg QAM PO 04/15/18 09:00 05/15/18 08:59 04/15/18 08:59 81 MG Atorvastatin Calcium (Lipitor Tab) 40 mg QPM PO 04/15/18 21:00 05/15/18 20:59 Latanoprost (Xalatan Oph Soln) 1 drops HS OPB 04/15/18 21:00 05/15/18 20:59 Lisinopril (Zestril Tab) 10 mg QAM PO 04/15/18 09:00 05/15/18 08:59 04/15/18 08:58 10 MG Metoprolol Succinate (Toprol Xl Tab) 100 mg QAM PO 04/15/18 09:00 05/15/18 08:59 04/15/18 08:59 100 MG Insulin Glargine (Lantus Solostar Pen) 20 units BID SC 04/15/18 09:00 05/15/18 08:59 04/15/18 09:11 20 UNITS Vancomycin HCl 1250 mg/Sodium Chloride 275 ml @ 125 mls/hr Q16H IV 04/15/18 08:00 04/25/18 07:59 04/15/18 08:57 125 MLS/HR Vancomycin HCl (Consult) 1 ea UD PRN N/A 04/14/18 23:15 05/14/18 23:14 Cefepime HCl (Consult) 1 ea UD PRN N/A 04/14/18 23:15 05/14/18 23:14 Cefepime HCl 2000 mg/Syringe 20 ml @ 5 mls/min Q12H IV 04/15/18 12:00 04/25/18 00:00 Enteral Nutritional Formula (Boost Glucose Control) 1 can BIDM PO 04/15/18 17:00 05/15/18 16:59
--- NOTE | 2018-04-15 20:11 | Orthopedic Consultation ---
Orthopedic Consultation Date of Consultation: Apr 15, 2018. Attending Physician: Sona Echeverria DO Reason for Consultation: Second opinion for left foot postoperative wound infection. History of Present Illness Mr. Hernandez is a 72 year old male patient of Dr. Rouse, who performed a revision fusion and osteotomy of his left great toe MTP joint a few months ago in January. The patient states that he had 3 incisions from that surgery; one plantar, one medial, and one dorsal. He said the plantar incision healed up fairly quickly, and the medial incision healed up a little bit after that, but the dorsal incision "never really healed" after the surgery, although he denies any persistent purulent drainage. He noticed about a week ago while he was in the shower that he had increased swelling along the dorsal incision line. This then ruptured, and he had some "clearish yellow fluid" draining from the wound, with a remaining ulceration. He saw Dr. Rouse in clinic over the past week. He had an outpatient appointment with [facility] orthopedics this week, but then presented to the emergency department due to concerns about worsening swelling and pain. He notes that after he was admitted and received several doses of IV antibiotics that his swelling in the great toe has significantly improved. Dr. Rouse saw him in the hospital today, and recommended irrigation and debridement surgery. The patient requested a second opinion from orthopedics to determine whether this was an appropriate course of treatment. Past Medical/Surgical History Medical Problems: (1) Cellulitis of left lower extremity Status: Acute (2) Non-healing surgical wound Status: Acute (3) Postoperative wound infection Status: Acute Family History Heart disease Social History Smoking Status: Light Tobacco Smoker (occasional cigars ) Alcohol Use: none Drug Use: none Marital Status: Occupation Status: retired Allergies Coded Allergies: No Known Allergies (Unverified , 04/14/18) Home Medications Scheduled Aspirin (Aspirin 81), 81 MG PO QAM Atorvastatin (Lipitor), 1 TAB PO QPM Fish Oil (Howes-3), 1 CAP PO BID Insulin Glargine (Basaglar Kwikpen), 46 UNITS SC QPM Latanoprost (Xalatan 0.005% Oph Jolie), 1 DROPS OPB HS Liraglutide (Victoza), 1.2 MG SQ QAM Lisinopril (Zestril), 10 MG PO QAM Metformin Hcl (Glucophage), 1,000 MG PO BID Metoprolol Succ (Toprol Xl) (Toprol-Xl ), 100 MG PO QAM Sildenafil Citrate (Viagra), 100 MG PO PRN Scheduled PRN Acetaminophen (Tylenol Arthitis Ext Rel), 2 TAB PO Q8H PRN for Pain Current Inpatient Medications Current Inpatient Medications Medications (Trade) Dose Ordered Sig/Jennifer Route Start Time Stop Time Status Last Admin Dose Admin Enoxaparin Sodium (Lovenox Inj) 40 mg Q24H SQ 04/15/18 09:00 05/15/18 08:59 Acetaminophen (Tylenol Tab) 650 mg Q4H PRN PO 04/14/18 22:45 05/14/18 22:44 04/15/18 12:51 650 MG Insulin Aspart (novoLOG ASPART) SLIDING SCALE If C... ACHS SC 04/15/18 06:30 05/15/18 06:29 Glucose (Glucose 40% Gel) 15-30 GRAMS 15 GRAMS... UD PRN PO 04/14/18 22:45 05/14/18 22:44 Glucose (Glucose Chew Tab) 4-8 Tablets 4 Tabl... UD PRN PO 04/14/18 22:45 05/14/18 22:44 Dextrose (Dextrose 50% 50ML Syringe) 25-50ML 25ML FOR ... UD PRN IV 04/14/18 22:45 05/14/18 22:44 Glucagon (Glucagon Inj) 1 mg UD PRN SQ 04/14/18 22:45 05/14/18 22:44 Carbohydrates (Carbohydrates For Hypoglycemia) 15-30 GRAMS 15 grams if BSG 54-69... UD PRN PO 04/14/18 22:45 05/14/18 22:44 Prochlorperazine Edisylate 5 mg/ Syringe 5 ml @ 5 mls/min Q6H PRN IV 04/14/18 22:45 05/14/18 22:44 Docusate Sodium (coLACE CAP) 100 mg DAILY PO 04/15/18 09:00 05/15/18 08:59 04/15/18 08:59 100 MG Polyethylene (Miralax Powder Packet) 17 gm DAILY PRN PO 04/14/18 22:45 05/14/18 22:44 Morphine Sulfate (MoRPHine SULFATE INJ) 4 mg Q3H PRN IV 04/14/18 22:45 04/28/18 22:44 Aspirin (Ecotrin Tab) 81 mg QAM PO 04/15/18 09:00 05/15/18 08:59 04/15/18 08:59 81 MG Atorvastatin Calcium (Lipitor Tab) 40 mg QPM PO 04/15/18 21:00 05/15/18 20:59 Latanoprost (Xalatan Oph Soln) 1 drops HS OPB 04/15/18 21:00 05/15/18 20:59 Lisinopril (Zestril Tab) 10 mg QAM PO 04/15/18 09:00 05/15/18 08:59 04/15/18 08:58 10 MG Metoprolol Succinate (Toprol Xl Tab) 100 mg QAM PO 04/15/18 09:00 05/15/18 08:59 04/15/18 08:59 100 MG Insulin Glargine (Lantus Solostar Pen) 20 units BID SC 04/15/18 09:00 05/15/18 08:59 04/15/18 09:11 20 UNITS Vancomycin HCl 1250 mg/Sodium Chloride 275 ml @ 125 mls/hr Q16H IV 04/15/18 08:00 04/25/18 07:59 04/15/18 08:57 125 MLS/HR Vancomycin HCl (Consult) 1 ea UD PRN N/A 04/14/18 23:15 05/14/18 23:14 Cefepime HCl (Consult) 1 ea UD PRN N/A 04/14/18 23:15 05/14/18 23:14 Cefepime HCl 2000 mg/Syringe 20 ml @ 5 mls/min Q12H IV 04/15/18 12:00 04/25/18 00:00 04/15/18 13:53 5 MLS/MIN Enteral Nutritional Formula (Boost Glucose Control) 1 can BIDM PO 04/15/18 17:00 05/15/18 16:59 Physical Exam Date Time Temp Pulse Resp B/P (MAP) Pulse Ox O2 Delivery O2 Flow Rate FiO2 04/15/18 16:24 37.1 69 16 123/66 (85) 94 Room Air 04/15/18 16:00 Room Air 04/15/18 08:00 Room Air 04/15/18 07:10 36.5 77 16 116/64 (81) 97 Room Air 04/15/18 00:00 Room Air 04/14/18 23:34 38.0 88 20 124/63 (83) 97 Room Air 04/14/18 22:45 37.7 107 20 130/65 (86) 96 Room Air 04/14/18 21:53 37.0 92 20 160/86 97 04/14/18 21:17 92 160/86 97 Room Air 04/14/18 20:52 98 Room Air Examination of the left great toe reveals plantar and medial incisions healed. He has an approximately 1 cm ulcerated area along the dorsal incision line directly dorsal to the MTP joint. No obvious expressible purulent drainage. No significant surrounding erythema, swelling, or induration, although the patient notes that it was significantly swollen yesterday. No exposed hardware. Foot is warm and well perfused. Sensation is intact to light touch. Laboratory Results Last 24 Hours Test 04/14/18 22:15 04/14/18 23:10 04/14/18 23:22 04/15/18 05:37 Bedside Glucose 82 mg/dl Hemoglobin 11.2 g/dL 9.9 g/dL Hematocrit 33.0 % 29.3 % Absolute Reticulocyte Count 0.04 10^6/uL Percent Reticulocyte Count 1.2 % Iron Level 19 mcg/dl Total Iron Binding Capacity 254 mcg/dl Transferrin 195 mg/dl Transferrin % Saturation 7 % Ferritin 628.6 ng/ml Vitamin B12 Level 260 pg/mL Folate 19.98 ng/mL Prothrombin Time 10.7 SECONDS Prothromb Time International Ratio 1.0 Lactic Acid Level 1.8 mmol/L White Blood Count 7.28 K/uL Red Blood Count 3.12 M/uL Mean Corpuscular Volume 93.9 fL Mean Corpuscular Hemoglobin 31.7 pg Mean Corpuscular Hemoglobin Concent 33.8 g/dl Platelet Count 205 K/uL Mean Platelet Volume 8.2 fL Neutrophils (%) (Auto) 62.9 % Lymphocytes (%) (Auto) 22.4 % Monocytes (%) (Auto) 12.1 % Eosinophils (%) (Auto) 2.1 % Basophils (%) (Auto) 0.1 % Neutrophils # (Auto) 4.58 K/uL Lymphocytes # (Auto) 1.63 K/uL Monocytes # (Auto) 0.88 K/uL Eosinophils # (Auto) 0.15 K/uL Basophils # (Auto) 0.01 K/uL RDW Standard Deviation 48.2 fL RDW Coefficient of Variation 14.0 % Immature Granulocyte % (Auto) 0.4 % Immature Granulocyte # (Auto) 0.03 K/uL Test 04/15/18 05:40 04/15/18 07:28 04/15/18 12:02 04/15/18 16:22 Creatinine 1.18 mg/dl Est Creatinine Clear Calc Drug Dose 63.0 ml/min Estimated GFR () 71.5 Estimated GFR (Non- 61.7 Bedside Glucose 96 mg/dl 118 mg/dl 134 mg/dl Radiology: Left foot x-rays were reviewed. They show a previous MTP joint fusion with intact hardware and good fusion of the joint. However, there is now a new osteotomy proximal to the MTP joint with a spanning plate. The proximal 2 screws of the plate have surrounding lucency, indicating motion. The medial side of the osteotomy is clearly not healed, but there may be some bridging bone along the lateral side of the osteotomy, although this area is obscured by the lateral sesamoid. MRI is of minimal benefit due to metal artifact. Assessment & Plan (1) Postoperative wound infection Assessment & Plan: He had a left great toe MTP joint revision fusion and osteotomy by podiatry (Dr. Rouse) a few months ago in January, and has had persistent wound complications of the dorsal incision since then. Dr. Rouse has seen the patient and recommended an irrigation and debridement surgery. I would agree. I advised the patient that my main concern is whether the hardware is infected or not. It is difficult to tell at this point. I do not see any obvious exposed hardware through the wound, but this would largely be an intraoperative evaluation whether the sinus tract went directly down to the hardware. If the hardware was in fact infected, it would have to be removed to definitively clear the infection. This could have significant consequences on his ability to ambulate, as it does not appear that the osteotomy is significantly healed. I advised the patient that I would be very hesitant to remove another surgeon's hardware in the acute postoperative period, especially when that surgeon writes in his note "I do not believe that the hardware needs to be removed at this time". The patient states that he would like to discuss this further with Dr. Rouse tomorrow morning. I am covering Orthopedic Surgery call for Dr. Hall, who is unavailable. Angelo Long MD Problem Qualifiers (1) Postoperative wound infection: Encounter type: initial encounter Qualified Codes: T81.4XXA - Infection following a procedure, initial encounter
[2018-04-15] MEDS: ATORVASTATIN 40 MG TAB PO SCH (20:57)
[2018-04-15] MEDS: LATANOPROST 0.005% OP SOLN 2.5 ML BTL OPB SCH (21:00)
[2018-04-15 22:55] VITALS: BP 137/73; PULSE 78; TEMP 36.8; O2SAT 96
[2018-04-16] MEDS: ACETAMINOPHEN 325 MG TAB PO PRN ×3 (03:04→23:19)
[2018-04-16 07:19] VITALS: BP 138/78; PULSE 72; TEMP 36.6; O2SAT 97
[2018-04-16 07:22] LABS: BASO % 0.2 %; BASO ABS # 0.01 K/uL (0-0.2); EOS ABS # 0.18 K/uL (0-0.5); HEMATOCRIT 30.5 % (42-52); HEMOGLOBIN 10.3 g/dL (14.0-18.0); IG# 0.02 K/uL (0.00-0.02); LYMPH % 23.6 %; LYMPH ABS # 1.06 K/uL (1.2-3.4); MEAN CORPUSCULAR HEMOGLOBIN 31.4 pg (25-34); MEAN CORPUSCULAR HGB CONC 33.8 g/dl (32-36); MEAN PLATELET VOLUME 8.1 fL (7.4-10.4); MONO % 17.8 %; NEUT ABS # 2.43 K/uL (1.4-6.5); PLATELET COUNT 215 K/uL (130-400); RED CELL DISTRIBUTION WIDTH CV 13.7 % (11.5-14.5); RED CELL DISTRIBUTION WIDTH SD 47.5 fL (36.4-46.3)
[2018-04-16] MEDS: INSULIN ASPART 100 UNITS/ML 3 ML PEN SC SCH ×4 (07:47→21:16)
[2018-04-16 07:58] LABS: CALCIUM 9.4 mg/dl (8.5-10.1); CREATININE 1.04 mg/dl (0.60-1.40); POTASSIUM 4.4 mmol/L (3.5-5.1)
[2018-04-16] MEDS: METOPROLOL SUCC 50MG EXT REL TAB PO SCH (08:10)
[2018-04-16] MEDS: DOCUSATE SODIUM 100 MG CAP PO SCH (08:10)
[2018-04-16] MEDS: LISINOPRIL 10 MG TAB PO SCH (08:11)
[2018-04-16] MEDS: ASPIRIN 81 MG ECTAB PO SCH (08:12)
[2018-04-16] MEDS: ENOXAPARIN 40 MG/0.4 ML SYR SQ SCH (08:35)
[2018-04-16] MEDS: INSULIN GLARGINE SOLOSTAR 100 UNITS/ML 3 ML PEN SC SCH ×2 (08:35→21:16)
[2018-04-16] MEDS: BOOST GLUCOSE CONTROL VANILLA PO SCH ×2 (09:00→17:05)
--- NOTE | 2018-04-16 12:03 | Progress Note ---
Medicine Progress Note Date & Time of Visit: Apr 16, 2018 at 11:58. Subjective 72 yo M with PAD, CAD, and DMII presents with sepsis 2/2 a nonhealing foot wound 3 months post-operatively. He underwent a reversal of fusion of his L great toe in January 2018, performed by flosser, Dr. Rouse. He saw him in the clinic earlier this week and and I&D was felt to be needed because of the possibility of a suture abscess. The patient wanted to wait and get a second opinion from a [facility] Orthopedic surgeon on this. Per Ortho overnight he would recommend consideration of hardware removal. The patient has decided he wants to speak with Dr. Rouse again today but would ultimately like to avoid that and perform the washout first. He is asymptomatic overnight and continues on his empirica antibiotics. Objective Last 8 Hrs Date Time Temp Pulse Resp B/P (MAP) Pulse Ox O2 Delivery O2 Flow Rate FiO2 04/16/18 08:00 Room Air 04/16/18 07:19 36.6 72 16 138/78 (98) 97 Room Air Physical Exam: GEN: WNWD, in no acute distress, alert and appropriate, tanned HEENT: NC/AT, normal sclerae, MMM CARDIO: reg rate, S1/2 heard without m/g/r LUNGS: CTA bilaterally, no crackles, rales or wheezes, good diaphragmatic excursion EXTREMITY: no LE swelling or edema, extremities are warm and well-perfused, L foot and great toe are wrapped. Area just around ulcer was evaluated with no erythema seen. Gauze is c/d/i without drainage. NEURO: CN 2-12 grossly intact, mentating normally MUSC: moves all extremities with ease. No focal deficits. SKIN: warm and dry and ulcerative wound on great toe. Laboratory Results: 04/16/18 07:10 Red Blood Count 3.28, Mean Corpuscular Volume 93.0, Mean Corpuscular Hemoglobin 31.4, Mean Corpuscular Hemoglobin Concent 33.8, Mean Platelet Volume 8.1, Neutrophils (%) (Auto) 54.0, Lymphocytes (%) (Auto) 23.6, Monocytes (%) (Auto) 17.8, Eosinophils (%) (Auto) 4.0, Basophils (%) (Auto) 0.2, Neutrophils # (Auto ) 2.43, Lymphocytes # (Auto) 1.06, Monocytes # (Auto) 0.80, Eosinophils # (Auto ) 0.18, Basophils # (Auto) 0.01 04/16/18 07:10 Test 04/14/18 17:49 04/14/18 19:08 04/14/18 23:10 04/14/18 23:22 Erythrocyte Sedimentation Rate 59 mm/hr (0-14) Total Bilirubin 0.7 mg/dl (0.2-1) Alanine Aminotransferase (ALT/SGPT) 24 U/L (12-78) Alkaline Phosphatase 70 U/L (45-117) Total Protein 8.1 gm/dl (6.4-8.2) Albumin 3.6 gm/dl (3.4-5.0) Magnesium Level 1.9 mg/dl (1.8-2.4) Direct Bilirubin 0.2 mg/dl (0-0.2) Aspartate Amino Transf (AST/SGOT) 12 U/L (15-37) Thyroid Stimulating Hormone (TSH) 0.654 uIu/ml (0.300-4.500) Absolute Reticulocyte Count 0.04 10^6/uL (0.02-0.10) Percent Reticulocyte Count 1.2 % (0.5-2.0) Iron Level 19 mcg/dl (35-175) Total Iron Binding Capacity 254 mcg/dl (250-450) Transferrin 195 mg/dl (200-360) Transferrin % Saturation 7 % (20-50) Ferritin 628.6 ng/ml (8.0-388.0) Vitamin B12 Level 260 pg/mL (211-911) Folate 19.98 ng/mL (>5.38) Prothrombin Time 10.7 SECONDS (9.0-12.0) Prothromb Time International Ratio 1.0 (0.9-1.1) Lactic Acid Level 1.8 mmol/L (0.4-2.0) Test 04/16/18 07:10 04/16/18 11:25 White Blood Count 4.50 K/uL (4.8-10.8) Red Blood Count 3.28 M/uL (4.7-6.1) Hemoglobin 10.3 g/dL (14.0-18.0) Hematocrit 30.5 % (42-52) Mean Corpuscular Volume 93.0 fL (80-100) Mean Corpuscular Hemoglobin 31.4 pg (25-34) Mean Corpuscular Hemoglobin Concent 33.8 g/dl (32-36) Platelet Count 215 K/uL (130-400) Mean Platelet Volume 8.1 fL (7.4-10.4) Neutrophils (%) (Auto) 54.0 % Lymphocytes (%) (Auto) 23.6 % Monocytes (%) (Auto) 17.8 % Eosinophils (%) (Auto) 4.0 % Basophils (%) (Auto) 0.2 % Neutrophils # (Auto) 2.43 K/uL (1.4-6.5) Lymphocytes # (Auto) 1.06 K/uL (1.2-3.4) Monocytes # (Auto) 0.80 K/uL (0.11-0.59) Eosinophils # (Auto) 0.18 K/uL (0-0.5) Basophils # (Auto) 0.01 K/uL (0-0.2) RDW Standard Deviation 47.5 fL (36.4-46.3) RDW Coefficient of Variation 13.7 % (11.5-14.5) Immature Granulocyte % (Auto) 0.4 % Immature Granulocyte # (Auto) 0.02 K/uL (0.00-0.02) Anion Gap 7.0 mmol/L (3-11) Est Creatinine Clear Calc Drug Dose 71.5 ml/min Estimated GFR () 83.3 Estimated GFR (Non- 71.9 BUN/Creatinine Ratio 23.1 (10-20) Calcium Level 9.4 mg/dl (8.5-10.1) C-Reactive Protein 7.41 mg/dl (0-0.29) Bedside Glucose 178 mg/dl (70-99) Date/Time Source Procedure Growth Status 04/14/18 23:22 Blood Blood Culture - Preliminary NO GROWTH TO DATE. Resulted Last 24 Hours Test 04/15/18 12:02 04/15/18 16:22 04/15/18 20:12 04/16/18 07:10 Bedside Glucose 118 mg/dl 134 mg/dl 143 mg/dl White Blood Count 4.50 K/uL Red Blood Count 3.28 M/uL Hemoglobin 10.3 g/dL Hematocrit 30.5 % Mean Corpuscular Volume 93.0 fL Mean Corpuscular Hemoglobin 31.4 pg Mean Corpuscular Hemoglobin Concent 33.8 g/dl Platelet Count 215 K/uL Mean Platelet Volume 8.1 fL Neutrophils (%) (Auto) 54.0 % Lymphocytes (%) (Auto) 23.6 % Monocytes (%) (Auto) 17.8 % Eosinophils (%) (Auto) 4.0 % Basophils (%) (Auto) 0.2 % Neutrophils # (Auto) 2.43 K/uL Lymphocytes # (Auto) 1.06 K/uL Monocytes # (Auto) 0.80 K/uL Eosinophils # (Auto) 0.18 K/uL Basophils # (Auto) 0.01 K/uL RDW Standard Deviation 47.5 fL RDW Coefficient of Variation 13.7 % Immature Granulocyte % (Auto) 0.4 % Immature Granulocyte # (Auto) 0.02 K/uL Sodium Level 140 mmol/L Potassium Level 4.4 mmol/L Chloride Level 107 mmol/L Carbon Dioxide Level 26 mmol/L Anion Gap 7.0 mmol/L Blood Urea Nitrogen 24 mg/dl Creatinine 1.04 mg/dl Est Creatinine Clear Calc Drug Dose 71.5 ml/min Estimated GFR () 83.3 Estimated GFR (Non- 71.9 BUN/Creatinine Ratio 23.1 Random Glucose 122 mg/dl Calcium Level 9.4 mg/dl C-Reactive Protein 7.41 mg/dl Test 04/16/18 07:23 04/16/18 11:25 Bedside Glucose 117 mg/dl 178 mg/dl Assessment & Plan 72 yo M with PAD, CAD, and DMII presents with sepsis 2/2 a nonhealing foot wound 3 months post-operatively. He underwent a reversal of fusion of his L great toe in January 2018, performed by flosser, Dr. Rouse. He saw him in the clinic earlier this week and and I&D was felt to be needed because of the possibility of a suture abscess. The patient wanted to wait and get a second opinion from a [facility] Orthopedic surgeon on this. Per Ortho overnight he would recommend consideration of hardware removal. The patient has decided he wants to speak with Dr. Rouse again today but would ultimately like to avoid that and perform the washout first. He is asymptomatic overnight and continues on his empirica antibiotics. 1. Sepsis 2/2 diabetic post-op foot wound-resuscitated. Wound culture taken in clinic earlier this week. Negative blood cultures to date. Wound culture still pending. Per ID cont Vanc/Cefepime empirically. Cellulitis was not seen around wound today. Osteomyelitis was not seen on MRI but it was explained to patient that hardware may be infected and have to be removed at a later time. Cont per Dr. Rouse's recommendations at this point. 2. CAD s/p CABG-stable, no chest pain or other symptoms. Cont medical management 3. HTN-controlled, cont lisinopril 4. DMII-at goal on ISS with carb coverage and glargine. 5. Anemia-iron deficiency is present but may be multifactorial etiology-cont workup as outpatient. Start iron supplementation. No indication for transfusion at this time. 6. PAD-stable disease. Cont medical management only. Wounds have healed despite this degree of plaque in the leg. DVT proph-Lovenox. Full code Dispo-awaiting podiatry recommendations; patient would like to proceed with surgery tomorrow if possible. [facility] Consultants: Ortho Podiatry ID Wound Care Current Inpatient Medications: Current Inpatient Medications Medications (Trade) Dose Ordered Sig/Jennifer Route Start Time Stop Time Status Last Admin Dose Admin Enoxaparin Sodium (Lovenox Inj) 40 mg Q24H SQ 04/15/18 09:00 05/15/18 08:59 Acetaminophen (Tylenol Tab) 650 mg Q4H PRN PO 04/14/18 22:45 05/14/18 22:44 04/16/18 03:04 650 MG Insulin Aspart (novoLOG ASPART) SLIDING SCALE If C... ACHS SC 04/15/18 06:30 05/15/18 06:29 Glucose (Glucose 40% Gel) 15-30 GRAMS 15 GRAMS... UD PRN PO 04/14/18 22:45 05/14/18 22:44 Glucose (Glucose Chew Tab) 4-8 Tablets 4 Tabl... UD PRN PO 04/14/18 22:45 05/14/18 22:44 Dextrose (Dextrose 50% 50ML Syringe) 25-50ML 25ML FOR ... UD PRN IV 04/14/18 22:45 05/14/18 22:44 Glucagon (Glucagon Inj) 1 mg UD PRN SQ 04/14/18 22:45 05/14/18 22:44 Carbohydrates (Carbohydrates For Hypoglycemia) 15-30 GRAMS 15 grams if BSG 54-69... UD PRN PO 04/14/18 22:45 05/14/18 22:44 Prochlorperazine Edisylate 5 mg/ Syringe 5 ml @ 5 mls/min Q6H PRN IV 04/14/18 22:45 05/14/18 22:44 Docusate Sodium (coLACE CAP) 100 mg DAILY PO 04/15/18 09:00 05/15/18 08:59 04/16/18 08:10 100 MG Polyethylene (Miralax Powder Packet) 17 gm DAILY PRN PO 04/14/18 22:45 05/14/18 22:44 Morphine Sulfate (MoRPHine SULFATE INJ) 4 mg Q3H PRN IV 04/14/18 22:45 04/28/18 22:44 Aspirin (Ecotrin Tab) 81 mg QAM PO 04/15/18 09:00 05/15/18 08:59 04/16/18 08:12 81 MG Atorvastatin Calcium (Lipitor Tab) 40 mg QPM PO 04/15/18 21:00 05/15/18 20:59 04/15/18 20:57 40 MG Latanoprost (Xalatan Oph Soln) 1 drops HS OPB 04/15/18 21:00 05/15/18 20:59 Lisinopril (Zestril Tab) 10 mg QAM PO 04/15/18 09:00 05/15/18 08:59 04/16/18 08:11 10 MG Metoprolol Succinate (Toprol Xl Tab) 100 mg QAM PO 04/15/18 09:00 05/15/18 08:59 04/16/18 08:10 100 MG Insulin Glargine (Lantus Solostar Pen) 20 units BID SC 04/15/18 09:00 05/15/18 08:59 04/16/18 08:35 20 UNITS Vancomycin HCl 1250 mg/Sodium Chloride 275 ml @ 125 mls/hr Q16H IV 04/15/18 08:00 04/25/18 07:59 04/15/18 23:54 125 MLS/HR Vancomycin HCl (Consult) 1 ea UD PRN N/A 04/14/18 23:15 05/14/18 23:14 Cefepime HCl (Consult) 1 ea UD PRN N/A 04/14/18 23:15 05/14/18 23:14 Cefepime HCl 2000 mg/Syringe 20 ml @ 5 mls/min Q12H IV 04/15/18 12:00 04/25/18 00:00 04/15/18 23:52 5 MLS/MIN Enteral Nutritional Formula (Boost Glucose Control) 1 can BIDM PO 04/15/18 17:00 05/15/18 16:59 04/16/18 09:00 1 CAN
--- NOTE | 2018-04-16 13:02 | Podiatry Progress Note ---
Subjective Date of Service Apr 16, 2018. Subjective Pt evaluation today including: conversation w/ patient, physical exam, chart review, lab review Denies any NVFC CP SOB at today's visit Objective Vital Signs Date Time Temp Pulse Resp B/P (MAP) Pulse Ox O2 Delivery O2 Flow Rate FiO2 04/16/18 08:00 Room Air 04/16/18 07:19 36.6 72 16 138/78 (98) 97 Room Air 04/16/18 00:00 Room Air 04/15/18 22:55 36.8 78 16 137/73 (94) 96 Room Air 04/15/18 19:50 Room Air 04/15/18 16:24 37.1 69 16 123/66 (85) 94 Room Air 04/15/18 16:00 Room Air Physical Exam General Appearance: no apparent distress Comments: NVS unchanged from previous visit Dressing CDI today Dry resolving blister to plantar hallux and 1st interspace, stable w/o erythema , calor, drainage or malodor WBC count down today Cx still pending and blood Cx negative to date Afebrile Laboratory Results Last 24 Hours Test 04/15/18 16:22 04/15/18 20:12 04/16/18 07:10 04/16/18 07:23 Bedside Glucose 134 mg/dl 143 mg/dl 117 mg/dl White Blood Count 4.50 K/uL Red Blood Count 3.28 M/uL Hemoglobin 10.3 g/dL Hematocrit 30.5 % Mean Corpuscular Volume 93.0 fL Mean Corpuscular Hemoglobin 31.4 pg Mean Corpuscular Hemoglobin Concent 33.8 g/dl Platelet Count 215 K/uL Mean Platelet Volume 8.1 fL Neutrophils (%) (Auto) 54.0 % Lymphocytes (%) (Auto) 23.6 % Monocytes (%) (Auto) 17.8 % Eosinophils (%) (Auto) 4.0 % Basophils (%) (Auto) 0.2 % Neutrophils # (Auto) 2.43 K/uL Lymphocytes # (Auto) 1.06 K/uL Monocytes # (Auto) 0.80 K/uL Eosinophils # (Auto) 0.18 K/uL Basophils # (Auto) 0.01 K/uL RDW Standard Deviation 47.5 fL RDW Coefficient of Variation 13.7 % Immature Granulocyte % (Auto) 0.4 % Immature Granulocyte # (Auto) 0.02 K/uL Sodium Level 140 mmol/L Potassium Level 4.4 mmol/L Chloride Level 107 mmol/L Carbon Dioxide Level 26 mmol/L Anion Gap 7.0 mmol/L Blood Urea Nitrogen 24 mg/dl Creatinine 1.04 mg/dl Est Creatinine Clear Calc Drug Dose 71.5 ml/min Estimated GFR () 83.3 Estimated GFR (Non- 71.9 BUN/Creatinine Ratio 23.1 Random Glucose 122 mg/dl Calcium Level 9.4 mg/dl C-Reactive Protein 7.41 mg/dl Test 04/16/18 11:25 Bedside Glucose 178 mg/dl Assessment and Plan Right foot cellulitis and surgical wound dehiscence -Seen by orthopedic surgery and appreciate there input. The wound did not probe to level of hardware and I do not feel that he warrants a hardware removal at this point. Patient wishes to avoid this at this time. He is agreeing to an incision and drainage of the R foot 1st MTPJ with removal of all non-viable tissue. Will plan for intraoperative cultures post lavage tomorrow. Patient is to be NPO at midnight tonight. He has been consented. All RBCA have been explained. Alternatives include but are not limited to conservative therapy with local wound care and antibiosis per ID recommendations. Complications include but are not limited to a recurrent infection, non-healing wound requiring further surgical intervention and/or amputation of foot and leg due to complications from surgery. He understands and acknowledges this per our discussion today. He elects to proceed with the above noted procedure. We will plan for OR tomorrow AM at 0730. Appreciate consultants recommendations at this time. From my standpoint, he should be clear for discharge tomorrow after his I& D.
[2018-04-16] MEDS: CEFEPIME IV 2,000 MG in SYRINGE 7.5 ML IV SCH (13:42)
[2018-04-16] MEDS ORDERED: VANCOMYCIN TROUGH ONE (15:30)
[2018-04-16 15:31] VITALS: BP 115/67; PULSE 73; TEMP 36.7; O2SAT 96
[2018-04-16] MEDS: VANCOMYCIN IV 1,250 MG in SODIUM CHLORIDE 0.9% 250ML 250 ML IV SCH (16:31)
[2018-04-16] MEDS: FERROUS SULFATE 325 MG TAB PO SCH (18:11)
[2018-04-16] MEDS: LATANOPROST 0.005% OP SOLN 2.5 ML BTL OPB SCH (21:00)
[2018-04-16] MEDS: ATORVASTATIN 40 MG TAB PO SCH (21:13)
[2018-04-16 23:20] VITALS: BP 126/70; PULSE 74; TEMP 37.1; O2SAT 96
[2018-04-17] MEDS: CEFEPIME IV 2,000 MG in SYRINGE 7.5 ML IV SCH ×2 (00:29→12:00)
[2018-04-17] MEDS ORDERED: VANCOMYCIN IV 1,250 MG in SODIUM CHLORIDE 0.9% 250ML 250 ML IV SCH (02:00)
[2018-04-17 06:40] LABS: BASO % 0.2 %; BASO ABS # 0.01 K/uL (0-0.2); EOS % 4.5 %; EOS ABS # 0.25 K/uL (0-0.5); HEMATOCRIT 31.9 % (42-52); HEMOGLOBIN 10.4 g/dL (14.0-18.0); IG# 0.06 K/uL (0.00-0.02); LYMPH % 22.8 %; LYMPH ABS # 1.26 K/uL (1.2-3.4); MEAN CELL VOLUME 94.9 fL (80-100); MEAN CORPUSCULAR HGB CONC 32.6 g/dl (32-36); MEAN PLATELET VOLUME 8.3 fL (7.4-10.4); MONO % 14.3 %; MONO ABS # 0.79 K/uL (0.11-0.59); NEUT % 57.1 %; NEUT ABS # 3.15 K/uL (1.4-6.5); PLATELET COUNT 249 K/uL (130-400); RED CELL DISTRIBUTION WIDTH CV 13.8 % (11.5-14.5); RED CELL DISTRIBUTION WIDTH SD 47.8 fL (36.4-46.3); WHITE BLOOD COUNT 5.52 K/uL (4.8-10.8)
[2018-04-17] MEDS ORDERED: MIDAZOLAM HCL 1 MG/ML 2ML VIAL ONE (06:52)
[2018-04-17] MEDS ORDERED: FENTANYL CITRATE INJ 50 MCG/1 ML 2 ML VIAL ONE (06:52)
[2018-04-17] MEDS ORDERED: LIDOCAINE HCL 2% 2 ML VIAL (20MG/ML) ONE (06:55)
[2018-04-17] MEDS ORDERED: PROPOFOL IV EMULSION 10 MG/ML 20 ML VIAL ONE (06:55)
[2018-04-17] MEDS ORDERED: ONDANSETRON INJ 2 MG/ML 2 ML VIAL ONE (06:55)
[2018-04-17] MEDS ORDERED: BUPIVACAINE 0.25% 30 ML VIAL ONE ×2 (07:09→07:10)
[2018-04-17] MEDS ORDERED: LIDOCAINE HCL 1% 20 ML VIAL ONE (07:09)
--- NOTE | 2018-04-17 07:09 | History & Physical Bridge Note ---
H&P Re-Evaluation Bridge Note: I have examined the patient, reviewed the History & Physical and in the interval since the performance of the History & Physical I have noted the following changes of clinical significance: No changes noted. He elects to proceed with I&D right foot.
[2018-04-17 07:11] LABS: CREATININE 0.99 mg/dl (0.60-1.40)
--- NOTE | 2018-04-17 07:22 | [facility] Operative Report ---
Operative Report Operative Date Apr 17, 2018. Pre-Operative Diagnosis Left foot cellulitis and abscess Post-Operative Diagnosis Left foot cellulitis and abscess Procedure(s) Performed Left foot incision and drainage Surgeon Gio Rouse DPM Estimated Blood Loss Minimal Findings No abscess was noted however exposed hardware was seen Anesthesia Type General (with local field block ) Complication(s) none Disposition Surgical ICU Indications Dev presented to the ED on 04/15 with an abscess of the left foot after recommendation for admission from my partner after being seen in the office. He has failed outpatient wound therapy for a nonhealing surgical site dehiscence. He had purulence on Wednesday which was cultured, results pending. There was no exposed hardware noted at that time nor has there been since admission. Of interesting note, upon chart review he admits to light smoking as well as hx of CAD with previous CABG. He denied having these comorbidities to me in the office. He also failed to relay his hx of PAD as o/p. He has palpable pulses and no suspicion of PAD in outpatient smoking. Description of Procedure Patient was taken from the preoperative holding area and placed in operating on the table in normal supine position. A time out was performed identifying the left lower extremity. After induction of general anesthesia, a high calf tourniquet was applied and the left lower extremity which was then prepped and draped in normal fashion. A time out was performed and a local field block was performed using 0.25% marcaine plain and 2% xylocaine plain to the left 1st ray. Attention was directed to dorsal ulceration of the left 1st MTPJ. The dorsal wound was sharply debrided using a combination of #15 blade and rongeur to remove fibrotic tissue to a level of full thickness exposing dorsal plate from prior surgery. There was no abscess or purulence noted. No sinus tracts or undermining to the wound bed was noted. The site was flushed with 3L of normal sterile saline via cysto tubing and cultures were obtained. Clean wound margins were noted at this point with granular tissue. The wound was approximately 1 cm in diameter. The wound edges were not contracted and could be closed under tension however this was deemed inappropriate due to exposed hardware. An arthrex dermal graft was used to place over the hardware. This was secured with a sterile saline wet to dry dressing. The dressing is to be left in place until follow up. He may require superintendent container terminal antibiosis due to exposed hardware but I will defer to infectious disease in regards to this. The dressing must be left in place in order to allow for appropriate graft incorporation. The wound margins appeared clean and consent was not obtained for a hardware removal today. As he is only 3 months postoperative from revisional fusion, I do not feel comfortable removing hardware unless absolutely necessary. This could be done going forward. The graft utilized today will hopefully allow the wound to heal by secondary intention. I do not anticipate a need for a return to OR for further debridement or irrigation. Patient tolerated anesthesia and procedure well today. He left the operating room with VSS and NVSI to the LLE. I attest to the content of the Intraoperative Record and any orders documented therein. Any exceptions are noted below.
[2018-04-17] MEDS ORDERED: EpHEDrine SULFATE INJ 50 MG/ML AMP IV PRN (07:45)
[2018-04-17] MEDS ORDERED: ATROPINE SULFATE 0.1 MG/ML 5ML SYR IV PRN (07:45)
[2018-04-17] MEDS ORDERED: FENTANYL CITRATE INJ 50 MCG/1 ML 2 ML VIAL IV PRN (07:45)
[2018-04-17] MEDS ORDERED: ONDANSETRON INJ 2 MG/ML 2 ML VIAL IV PRN (07:45)
[2018-04-17] MEDS ORDERED: PROMETHAZINE HCL INJ 6.25 MG in SODIUM CHLORIDE 0.9% 50ML 50 ML IV PRN (07:45)
[2018-04-17] MEDS ORDERED: PHENYLEPHRINE HCL INJ 10 MG/ML VIAL ONE (07:51)
[2018-04-17] MEDS ORDERED: EpHEDrine SULFATE INJ 50 MG/ML AMP ONE (07:52)
[2018-04-17] MEDS ORDERED: SODIUM CHLORIDE 0.9% INJ 10 ML VIAL ONE (07:52)
--- NOTE | 2018-04-17 08:17 | [facility] Post Operative Brief Note ---
Immediate Operative Summary Operative Date Apr 17, 2018. Pre-Operative Diagnosis Left Foot Abscess Post-Operative Diagnosis Right foot cellulitis and abscess Procedure(s) Performed Left foot incision and drainage Surgeon Dr. Gio Rouse Still Operator Batch Or Continuous Surgeon(s) None Estimated Blood Loss Zero Findings Consistent with Post-Op Diagnosis Specimens Left foot swabbed for C&S, anaerobic and aerobic routine cultures. Drains None Anesthesia Type General Complication(s) Exposed hardware left foot Disposition Accompanied Pt To Recover: no
--- NOTE | 2018-04-17 08:56 | Anesthesiology Progress Note ---
Anesthesia Post Op Note Date & Time Apr 17, 2018 at 08:56 Vital Signs Pain Intensity: 0 Vital Signs Past 12 Hours Date Time Temp Pulse Resp B/P (MAP) Pulse Ox O2 Delivery O2 Flow Rate FiO2 04/17/18 08:50 74 12 128/62 97 Room Air 04/17/18 08:40 75 14 130/62 100 Oxymask 10 04/17/18 08:30 76 14 128/63 100 Oxymask 10 04/17/18 08:20 36.8 72 16 91/57 100 Oxymask 10 04/17/18 00:20 Room Air 04/16/18 23:20 37.1 74 20 126/70 (88) 96 Room Air Notes Mental Status: alert / awake / arousable, participated in evaluation Pt Amnestic to Procedure: Yes Nausea / Vomiting: adequately controlled Pain: adequately controlled Airway Patency, RR, SpO2: stable & adequate BP & HR: stable & adequate Hydration State: stable & adequate Anesthetic Complications: no major complications apparent
[2018-04-17] MEDS: ENOXAPARIN 40 MG/0.4 ML SYR SQ SCH (09:00)
[2018-04-17] MEDS: METOPROLOL SUCC 50MG EXT REL TAB PO SCH (09:22)
[2018-04-17] MEDS: DOCUSATE SODIUM 100 MG CAP PO SCH (09:22)
[2018-04-17] MEDS: ASPIRIN 81 MG ECTAB PO SCH (09:22)
[2018-04-17] MEDS: FERROUS SULFATE 325 MG TAB PO SCH (09:22)
[2018-04-17] MEDS: BOOST GLUCOSE CONTROL VANILLA PO SCH (09:23)
[2018-04-17] MEDS: INSULIN ASPART 100 UNITS/ML 3 ML PEN SC SCH (09:23)
[2018-04-17] MEDS: LISINOPRIL 10 MG TAB PO SCH (09:23)
--- NOTE | 2018-04-17 09:24 | Pharmacy Progress Note ---
Pharmacy Abx Dose Progress Nt Date of Service Apr 17, 2018. Pharmacy Dosing Scope The patient WAS receiving the following antimicrobial agents per Pharmacy consult: Vancomycin 1250 mg IV every 16 hours Objective Height (Feet): 6 Height (Inches): 0.00 Weight (Kilograms): 85.000 Vital Signs (Past 12Hrs) Vital Signs Past 12 Hours Date Time Temp Pulse Resp B/P (MAP) Pulse Ox O2 Delivery O2 Flow Rate FiO2 04/17/18 08:50 74 12 128/62 97 Room Air 04/17/18 08:40 75 14 130/62 100 Oxymask 10 04/17/18 08:30 76 14 128/63 100 Oxymask 10 04/17/18 08:20 36.8 72 16 91/57 100 Oxymask 10 04/17/18 00:20 Room Air 04/16/18 23:20 37.1 74 20 126/70 (88) 96 Room Air Lab Results (24Hrs) Item Value Date Time Vancomycin Level Trough 12.4 mcg/ml 04/16/18 1530 Laboratory Tests (24 Hours) Test 04/17/18 06:29 White Blood Count 5.52 K/uL (4.8-10.8) Red Blood Count 3.36 M/uL (4.7-6.1) L Hemoglobin 10.4 g/dL (14.0-18.0) L Hematocrit 31.9 % (42-52) L Mean Corpuscular Volume 94.9 fL (80-100) Mean Corpuscular Hemoglobin 31.0 pg (25-34) Mean Corpuscular Hemoglobin Concent 32.6 g/dl (32-36) Platelet Count 249 K/uL (130-400) Mean Platelet Volume 8.3 fL (7.4-10.4) Neutrophils (%) (Auto) 57.1 % Lymphocytes (%) (Auto) 22.8 % Monocytes (%) (Auto) 14.3 % Eosinophils (%) (Auto) 4.5 % Basophils (%) (Auto) 0.2 % Neutrophils # (Auto) 3.15 K/uL (1.4-6.5) Lymphocytes # (Auto) 1.26 K/uL (1.2-3.4) Monocytes # (Auto) 0.79 K/uL (0.11-0.59) H Eosinophils # (Auto) 0.25 K/uL (0-0.5) Basophils # (Auto) 0.01 K/uL (0-0.2) Micro Results Date/Time Source Procedure Growth Status 04/14/18 23:22 Blood Blood Culture - Preliminary NO GROWTH TO DATE. Resulted 04/14/18 23:10 Blood Blood Culture - Preliminary NO GROWTH TO DATE. Resulted 04/17/18 08:26 Drainage-Deep Foot Left Gram Stain Pending Received 04/17/18 08:26 Drainage-Deep Foot Left Bacterial Culture Pending Received Assessment & Plan Assessment 72 year old male was receiving Vancomycin 1250 mg IV q16h for treatment of Sepsis secondary to foot wound infection s/p I&D. Day # 4 of antimicrobial therapy Plan Vancomycin IV * Trough level of 12.4 mcg/mL is subtherapeutic. * Changed to Vancomycin 1250 mg IV every 12 hours started at 0200 today. * Goal trough level for wound infection: ~15 mcg/mL * Trough level ordered for: 04/18 before 0200 dose. Pharmacy will continue to follow and will adjust dose/frequency as necessary. Thank you.
[2018-04-17] MEDS: INSULIN GLARGINE SOLOSTAR 100 UNITS/ML 3 ML PEN SC SCH (09:31)
[2018-04-17 10:00] VITALS: BP 138/55; PULSE 75; TEMP 36.5; O2SAT 98
[2018-04-17] MEDS ORDERED: AMOX875T PO (10:43)
[2018-04-17] MEDS ORDERED: DXY100 PO (10:43)
[2018-04-17] MEDS ORDERED: ACET30TA PO (10:56)
[2018-04-17] MEDS ORDERED: FRRS300 PO (10:56)
--- NOTE | 2018-04-17 11:00 | Discharge Summary ---
Discharge Summary Date of Service Apr 17, 2018. Discharge Summary Admission Date: Apr 14, 2018 at 21:14 Discharge Date: Apr 17, 2018 Discharge Disposition: Home Principal Diagnosis: Sepsis 2/2 L foot abscess s/p I&D Iron deficiency anemia Chronic PAD Chronic CAD s/p CABG DMII Procedures: I&D of L foot abscess Vaccinations: None. Consultations: Ortho Podiatry ID Wound Care Pending Studies/Follow-Up: see instructions below. Medication Reconciliation New Medications: Acetaminophen W/ Codeine (Codeine/Acetaminophen) 1 Tab Tab 30-300 MG PO Q6H PRN for severe pain, #10 TAB Amoxicillin & Pot Clavulanate (Augmentin 875-125 mg) 1 Tab Tab 875 MG PO BID for 42 Days, #84 TAB Doxycycline Hyclate (Doxycycline Hyclate) 100 Mg Cap 100 MG PO BID for 42 Days, #84 CAP Ferrous Sulfate (Ferrous Sulfate) 325 Mg Tab 325 MG PO BIDM for 30 Days, #60 TAB Continued Medications: Acetaminophen (Tylenol Arthitis Ext Rel) 650 Mg Ertab 2 TAB PO Q8H PRN for Pain, CAP Aspirin (Aspirin 81) 81 Mg Tab 81 MG PO QAM Atorvastatin (Lipitor) 40 Mg Tab 1 TAB PO QPM for 30 Days, TAB 5 Refills Fish Oil ([place]-3) 1 Ea Cap 1 CAP PO BID, CAP Insulin Glargine (Basaglar Kwikpen) 100 Unit/Ml Inj 46 UNITS SC QPM Latanoprost (Xalatan 0.005% Oph Jolie) 0.005 % Jolie 1 DROPS OPB HS, ML Liraglutide (Victoza) 18 Mg/3 Ml Inj 1.2 MG SQ QAM Lisinopril (Zestril) 10 Mg Tab 10 MG PO QAM, TAB Metformin Hcl (Glucophage) 1,000 Mg Tab 1000 MG PO BID, TAB Metoprolol Succ (Toprol Xl) (Toprol-Xl ) 100 Mg Tabcr 100 MG PO QAM, TAB Sildenafil Citrate (Viagra) 100 Mg Tab 100 MG PO PRN, TAB Admission Information HPI (per Admitting provider): This is a 72-year-old male with a PMH of DM II, CAD (s/p CABG), peripheral vascular disease, HLD and multiple left foot surgeries who presents with worsening pain and swelling of right foot over the past few days. Patient has a remote history of multiple left foot fractures hallux rigidus and had a plate and screws placed in 2003. Then had screws removed and joint fusion in the following year. Since then, patient has had intermittent ulcers on the plantar aspect of foot, requiring orthotics and podiatry care. In January 2018, patient underwent revision of first MTPJ fusion with resection by by Dr. Rouse. Has continued to have pain, swelling and non-healing surgical site since then, which has worsened over the past few days. Describes pain as throbbing, constant and worse with walking or after showering. Has been taking Tylenol every 4 hours and Percocet the past 2 days. Noted increased swelling and redness surrounding the open area on the dorsal aspect of his first metatarsal and went to podiatry, where wound cultures were performed. Was encouraged to come to ED for further evaluation and antibiotic management. Past medical history is also significant for type 2 diabetes and peripheral vascular disease. Denies fever, chills, lightheadedness, headache, visual changes, chest pain, palpitations, shortness of breath, abdominal pain, nausea, vomiting, dysuria, diarrhea or LE swelling. Has been constipated since starting to use Percocet. PCP is Dr. Degroot. Physical Exam (per Admitting): General Appearance: WD/WN, no apparent distress Head: normocephalic, atraumatic Eyes: normal inspection, PERRL, sclerae normal ENT: normal ENT inspection, hearing grossly normal, pharynx normal Neck: supple, thyroid normal, trachea midline Respiratory/Chest: chest non-tender, lungs clear, normal breath sounds, no respiratory distress, no accessory muscle use Cardiovascular: regular rate, rhythm, no murmur, normal peripheral pulses Abdomen/GI: non tender, soft, no organomegaly Back: normal inspection Extremities/Musculoskelatal: no calf tenderness, normal capillary refill, + pertinent finding (L 1st metatarsal with open wound with serosangineous drainage and surrounding erythema and edema extending to L ankle ) Neurologic/Psych: no motor/sensory deficits, alert, normal mood/affect, oriented x 3 Skin: normal color, warm/dry, no rash Hospital Course 72 yo M with PAD, CAD, and DMII presents with sepsis 2/2 a nonhealing foot wound 3 months post-operatively. He underwent a reversal of fusion of his L great toe in January 2018, performed by manager of training, Dr. Rouse who saw him in the clinic earlier this week. I&D was felt to be needed because of the possibility of a suture abscess. The patient wanted to wait and get a second opinion from a [facility] Orthopedic surgeon on this. He set up an appointment for following week, however, presented to the ER because he became more ill. Symptoms included erythema, swelling and pain in the L great toe and he was admitted to the hospitalist service with sepsis. He was placed on Vancomycin and Cefepime empirically and was given IVF. He was resuscitated overnight. He requested another opinion by Ortho who saw the patient in the hospital and agreed with the I&D, but also to suggest considering removal of the hardware as this may also be infected. The patient was not in favor of this and ultimately underwent an I&D and dermal graft while hospitalized by Dr. Rouse. ID was consulted and recommended 6 weeks of antibiotics. He notably has stable atherosclerotic disease in his L leg for which he was seen at [facility] several years ago. At that time he reports undergoing angioplasty and a stent was not able to be placed. He declined a vascular bypass as the risks were too much for him personally. He reports stable claudication with exercise without any increase. He has also had several wounds on that same leg heal without issue despite his PAD. Vascular consult was cancelled as a result. He was sent home in stable condition with close follow-up with podiatry and PCP. An issue to evaluate further in the clinic was his iron deficiency which was incidentally found during a workup for anemia. He was placed on iron supplementation and will need to follow-up with PCP regarding further workup. Total time spent on discharge = 60 minutes This includes examination of the patient, discharge planning, medication reconciliation, and communication with other providers. Discharge Instructions [facility] [address] [place] [address] Discharge Medical Patient Name: Dev Hernandez Unit Number: [id number] Date of : 1945 Patient Status: Admitted Inpatient Attending Doctor: Sona Echeverria DO DI: Medical v5 Discharge Instructions Date of Service Apr 17, 2018. Admission Reason for Admission: Infected Wound Discharge Discharge Diagnosis / Problem: sepsis 2/2 toe wound s/p I&D Discharge Goals Goal(s): Prevent Disease Progression Activity Recommendations Activity Limitations: per Instructions/Follow-up section . Instructions / Follow-Up Instructions / Follow-Up Please take all medications as instructed. Please do not shower or remove the surgical dressing until seen in follow-up by myron Rivas of this week. His office will contact you tomorrow with an appointment time. At that visit, he will review any further restrictions related to your upcoming trips. For now, you can walk on the foot wearing the surgical shoe (should be provided to you prior to discharge) or your CAM boot ( which you already have). Someone from my staff will be contacting you on Wednesday regarding a follow-up appointment time to see your primary care provider, which is a recommendation after any hospital discharge. It was a pleasure taking care of you! Call if you have any questions or problems. You can reach a [facility] hospitalist on duty at [facility] 24 hours a day by calling [phone]. Take care of yourself. Sona Echeverria DO [facility] Hospitalist Current Hospital Diet Patient's current hospital diet: Diabetes Type 2 Diet, AHA Diet (Heart Healthy) Discharge Diet Recommended Diet: AHA Diet (Heart Healthy), Diabetes Type 2 Diet Procedures Procedures Performed: Left foot incision and drainage Pending Studies Studies pending at discharge: yes List of pending studies: intraoperative wound culture pending at discharge final blood cultures are pending with preliminary results negative at time of discharge Medical Emergencies . Who to Call and When: Medical Emergencies: If at any time you feel your situation is an emergency, please call 911 immediately. . Non-Emergent Contact Non-Emergency issues call your: Primary Care Provider . . "Provider Documentation" section prepared by Sona Ecehverria. . [place] Drug Monitoring Program Search Results: patient reviewed within database, no issues identified Additional Copies To Bette Degroot D.O.
[2018-04-17 11:57] VITALS: BP 111/66; PULSE 77; TEMP 36.5; O2SAT 97
[2018-04-18] MEDS ORDERED: VANCOMYCIN TROUGH ONE (01:30)
== END 2018-04-17 12:48 | disposition home or self-care (01) | DRG 856 ==
LOC: C.EDB 16:43 → C.MED 21:14 → ENRESERV 21:31
PROVIDERS: ADMIT Hospitalist; ATTEND Hospitalist
PROC: 0JBR0ZZ Excision of Left Foot Subcutaneous Tissue and Fascia, Open Approach (ICD-10-PCS; principal; 2018-04-17 07:30)
PROC: 0HRMXK3 Replacement of Right Foot Skin with Nonautologous Tissue Substitute, Full Thickness, External Approach (ICD-10-PCS; principal; 2018-04-17 07:30)
DX: T81.4XXA Infection following a procedure, initial encounter (principal); A41.9 Sepsis, unspecified organism; L03.116 Cellulitis of left lower limb; T81.32XA Disruption of internal operation (surgical) wound, not elsewhere classified, initial encounter; L97.528 Non-pressure chronic ulcer of other part of left foot with other specified severity; Y92.019 Unspecified place in single-family (private) house as the place of occurrence of the external cause; I25.10 Atherosclerotic heart disease of native coronary artery without angina pectoris; E11.51 Type 2 diabetes mellitus with diabetic peripheral angiopathy without gangrene; E78.5 Hyperlipidemia, unspecified; Z95.1 Presence of aortocoronary bypass graft; Z79.4 Long term (current) use of insulin; Z98.1 Arthrodesis status; D50.9 Iron deficiency anemia, unspecified; Y83.8 Other surgical procedures as the cause of abnormal reaction of the patient, or of later complication, without mention of misadventure at the time of the procedure; Z86.14 Personal history of Methicillin resistant Staphylococcus aureus infection; F17.290 Nicotine dependence, other tobacco product, uncomplicated; Z96.642 Presence of left artificial hip joint

== ENCOUNTER 2020-04-23 08:47 | Observation (INO) ==
[~2020-04-23 08:47] MED LIST changes: -ASPI-435 PO; -ATOR-24 PO; -INSU100I23 SC; -LATA0.5S OPB; -LIRA18IN SQ; -LISI-461 PO; -METF-384 PO; -METO100T44 PO; +MIDAZOLAM HCL 5 MG/ML 1 ML VIAL ONE; -OMEG10007 PO; -OXYC-643 PO; -SILD100T PO; -TYLER650 PO; +fentaNYL citrate 100 MCG/2 ML VIAL ONE
--- NOTE | 2020-04-23 09:15 | History & Physical Bridge Note ---
Date of Service April 23, 2020 History & Physical Bridge Note I have examined the patient, reviewed the History & Physical and in the interval since the performance of the History & Physical I have noted the following changes of clinical significance: no changes noted
[2020-04-23] MEDS ORDERED: LIDOCAINE HCL 1% 20 ML VIAL ONE (09:16)
--- NOTE | 2020-04-23 09:16 | Pre Anesthesia Assessment ---
Date of Service April 23, 2020 Pre Sedation Assessment Cardiovascular + regular rhythm Respiratory normal respiratory effort, lungs clear to auscultation Pre-Sedation Airway Assessment Smoking Status: Never smoker Hx Sleep Apnea: No Hx Difficult Intubation: No Short, Thick Neck: No Thyromental Distance: < 3.5 Finger Breadths Oral Cavity: + Dental Abnormalities Mallampati Class: II ASA: ASA3 NPO Status Date of Last Intake of Fluids: 04/22/20 Time of Last Intake of Fluids: 21:15 Date of Last Intake of Solid Food: 04/22/20 Time of Last Intake of Solid Foods: 18:16 Procedure Planning Contraindications for Sedation: none Current Medications Reviewed: Yes Notes The planned sedation has been discussed with the patient. Informed Consent was obtained. I have identified the patient, determined the appropriateness of sedation and have assessed the patient immediately prior to the procedure. All medicine(s) and interventions are by my order.
[2020-04-23] MEDS ORDERED: BUPIVACAINE 0.25% 30 ML VIAL ONE (09:17)
[2020-04-23] MEDS ORDERED: BACITRACIN INJ 50,000 UNIT VIAL ONE (09:17)
[2020-04-23] MEDS ORDERED: CEFAZOLIN 250 MG/ML 1 GM VIAL ONE (09:27)
[2020-04-23] MEDS ORDERED: fentaNYL citrate 100 MCG/2 ML VIAL ONE (09:55)
--- NOTE | 2020-04-23 10:34 | Post Anesthesia Assessment ---
Date of Service April 23, 2020 Post Sedation Assessment Vital Signs Temp Pulse Resp BP Pulse Ox 04/23/20 09:00 37 C 64 18 166/72 H 94 Recovery Score Activity: Moves 4 extremities Respiration: Deep Breath/Cough Circulation: +/-20% PreAnes Value Consciousness: Fully Awake Oxygen Saturation: > 92% On Room Air Discharge Sedation Level of Care: Fast Track Phase II Post Sedation Plan On clinical assessment, the patient appears to have tolerated the sedation without complications. Patient is recovering as anticipated. Patient will continue to be monitored by nursing and may be discharged when sedation discharge criteria are met per below protocol. Upon Completions of procedure up to 15 minutes continue every 5 minute vital signs and the P.A.R. score; then discharge to a Phase I or Fast Track to Phase II per the following guidelines: * Discharge Patient to appropriate Phase II area if PAR is 8 or greater or return to pre- procedure baseline. The post - procedure orders will be as directed. * If PAR score is less than 8 or not return to pre-procedure baseline then patient will follow Phase I monitoring till PAR is reached for Phase II. The Phase I may be done in procedure room or may call to secure a Phase I area. * If naloxone or flumazenil are used for reversal, hold in Phase I for continued monitoring from when last reversal dose was given for a minimum of 60 minutes or longer pending the nurse and/or physician discretion of patient condition before discharge to Phase II. Please call the Sedation Physician to re-evaluate and complete post-note for discharge to Phase II area. Do NOT discharge from procedure sedation or Phase 1 until post- sedation evaluation note is complete by procedure /sedation MD Sedation Discharge Instructions to be given to the patient at discharge to home.
[2020-04-23] MEDS ORDERED: ACETAMINOPHEN 325 MG TAB PO PRN (10:35)
--- NOTE | 2020-04-23 10:35 | Operative Report ---
Post Operative Report Pre & Post Diagnosis tbs Operation Date: 04/23/20 10:00 <No data on this case meets the specified criteria> I identified the patient and participated in the time-out.: Yes Procedure Operation Date: 04/23/20 10:00 Actual Procedures p Pacer with A/V Leads (Dual) - Keri Trujillo DO Surgeon Keri Trujillo, Bias Binding Cutter none Estimated Blood Loss 15 Findings Consistent with Post-Op Diagnosis Specimens none Description of Procedure see official procedure I attest to the content of the Intraoperative Record and any orders documented therein. Any exceptions are noted below.
--- NOTE | 2020-04-23 10:39 | Discharge Summary ---
Date of Service April 24, 2020 Admission HPI Per Admitting Provider pt admitted for elective ppm Admission Exam Per Admitting Provider aaox3, NAD NC/AT, EOMI Supple No JVD Nrl S1/S2, No murmur CTA b/l no w/r/r soft nt/nd no LE edema b/l skin intact no focal deficits Principal Diagnosis TBS s/p ppm Discharge Exam aaox3, NAD NC/AT, EOMI Supple No JVD Nrl S1/S2, No murmur CTA b/l no w/r/r soft nt/nd no LE edema b/l skin intact no focal deficits left pectoral incision intact, no hematoma mild ecchymosis Discharge Data Allergies Allergy/AdvReac Type Severity Reaction Status Date / Time No Known Allergies Allergy Verified 09/28/19 12:56 Procedures Performed PPM Interrogation: Normal function since implant CXR: No PTX, leads in position ECG: SR Operation Date: 04/23/20 10:00 Actual Procedures p Pacer with A/V Leads (Dual) - Keri Trujillo DO Ordered Studies 04/23/20 06:34 CL Cath Imgs for PACS use only Routine Hospital Course (1) Tachy-noman syndrome: (2) Atrial fibrillation: Total Time Total Time Spent Total Time Spent (In Minutes): 40 Total Time Includes: Examination of the Patient, Discharge Planning, Medication Reconciliation and Other Discharge Plan Discharge Items Patient Disposition: Home - Self-Care Reason For Visit: DCP INSERTION Discharge Diagnosis: TBS s/p ppm Activity: As commented below Activity Comment: do not lift the left elbow over the left shoulder for 1 month Lifting: No more than 10 pounds Bathing: Keep incision dry Bathing Comment: keep dressing on and dry until wound check next week Sexual Activity: After two weeks Driving/Machine Use: Resume 1 day after discharge Non-emergency contact: Account Director Call non-emergency contact if: you have any medication questions Follow-up/Referrals: Landen Macario DO [Primary Care Provider] - Diet: Heart Healthy Addtl Attending Provider Instructions: device and wound check as scheduled next week in [facility] Pending Studies at Discharge: No Stand-Alone Forms: My Thounds, Smoking Cessation Medications and DC Order Prescriptions: Continued clindamycin phosphate 1 % solution 1 appln TOP .COMPLEX Qty: 60 RF: 2 acetaminophen [Tylenol Arthritis Pain] 650 mg tablet extended release 650 mg PO Q8H PRN (Reason: Pain) RF: 0 aspirin 81 mg tablet,delayed release (DR/EC) 81 mg PO DAILY RF: 0 atorvastatin 10 mg tablet 10 mg PO DAILY RF: 0 lisinopril 10 mg tablet 10 mg PO BID RF: 0 omega-3 fatty acids [Fish Oil Concentrate] 1,000 mg capsule 1,000 mg PO BID RF: 0 ferrous sulfate 325 mg (65 mg iron) tablet 325 mg PO BID RF: 0 insulin glargine 100 unit/mL (3 mL) insulin pen 46 units SQ .COMPLEX RF: 0 Victoza 2-Jed 0.6 mg/0.1 mL (18 mg/3 mL) pen injector 0.6 mg SQ DAILY RF: 0 latanoprost 0.005 % drops 1 drops OP QPM RF: 0 metformin 1,000 mg tablet 1,000 mg PO DAILY RF: 0 metoprolol tartrate 100 mg tablet 100 mg PO BID RF: 0 sildenafil [Viagra] 100 mg tablet 100 mg PO DAILY PRN (Reason: sexual activity) Qty: 30 RF: 0 Discharge Orders: Discharge Order (Routine); Ordered 04/24/20 Ordered By: Keri Trujillo Admission Data Admit Date/Time: 04/23/20 10:06 Attending Provider: Keri Trujillo Admit Provider: Keri Trujillo Primary Care Provider: Landen Macario
[2020-04-23] MEDS ORDERED: NON-FORMULARY MEDICATION (Sildenafil [Viagra] 100 MG) PO PRN (12:04)
[2020-04-23] MEDS ORDERED: NON-FORMULARY MEDICATION (Acetaminophen [Tylenol Arthritis Pain] 650 MG) PO PRN (12:04)
[2020-04-23] MEDS ORDERED: CARBOHYDRATES FOR HYPOGLYCEMIA PO PRN (15:30)
[2020-04-23] MEDS ORDERED: GLUCAGON FOR INJ 1 MG VIAL IM PRN (15:30)
[2020-04-23] MEDS ORDERED: GLUCOSE 40% GEL 15 GM TUBE PO PRN (15:30)
[2020-04-23] MEDS ORDERED: DEXTROSE 50% 50 ML SYRINGE IV PRN (15:30)
[2020-04-23] MEDS ORDERED: GLUCOSE 10 TABS/TUBE PO PRN (15:30)
[2020-04-23] MEDS: OXYCODONE/ACETAMINOPHEN 5mg/325mg TAB PO PRN ×2 (16:36→22:44)
[2020-04-23] MEDS: VICTOZA - ORDER AWAITING ACTION SCH (18:43)
[2020-04-23] MEDS: METOPROLOL TARTRATE 100 MG TAB PO SCH (20:55)
[2020-04-23] MEDS: OMEGA-3 (PURIFIED FISH OIL) 1 GM CAP PO SCH (20:55)
[2020-04-23] MEDS: FERROUS SULFATE 325 MG TAB PO SCH (20:56)
[2020-04-23] MEDS: lisinopriL 10 MG TAB PO SCH (20:56)
[2020-04-23] MEDS ORDERED: LATANOPROST 0.005% OP SOLN 2.5 ML BTL OP SCH (21:00)
[2020-04-23] MEDS ORDERED: INSULIN GLARGINE SOLOSTAR 100 UNITS/ML 3 ML PEN SQ SCH (21:00)
[2020-04-24] MEDS: VICTOZA - ORDER AWAITING ACTION SCH ×2 (00:40→08:09)
[2020-04-24] MEDS: OXYCODONE/ACETAMINOPHEN 5mg/325mg TAB PO PRN (06:12)
--- NOTE | 2020-04-24 06:45 | Electrocardiogram Report ---
Test Reason : Blood Pressure : / mmHG Vent. Rate : 060 BPM Atrial Rate : 060 BPM P-R Int : 260 ms QRS Dur : 090 ms QT Int : 428 ms P-R-T Axes : -18 050 023 degrees QTc Int : 428 ms Atrial-paced rhythm with prolonged AV conduction Abnormal ECG When compared with ECG of 21-JUL-2005 15:19, Electronic atrial pacemaker has replaced Sinus rhythm Nonspecific T wave abnormality no longer evident in Anterolateral leads Confirmed by Juan M Akhtar ([id number]) on 04/24/2020 6:44:58 AM Referred By: Keri Trujillo Confirmed By:Juan M Akhtar
[2020-04-24] MEDS: FERROUS SULFATE 325 MG TAB PO SCH (08:07)
[2020-04-24] MEDS: lisinopriL 10 MG TAB PO SCH (08:08)
[2020-04-24] MEDS: METOPROLOL TARTRATE 100 MG TAB PO SCH (08:08)
[2020-04-24] MEDS: OMEGA-3 (PURIFIED FISH OIL) 1 GM CAP PO SCH (08:08)
[2020-04-24] MEDS ORDERED: METFORMIN HCL 500 MG TAB PO SCH (09:00)
[2020-04-24] MEDS ORDERED: ATORVASTATIN 10 MG TAB PO SCH (09:00)
[2020-04-24] MEDS ORDERED: ASPIRIN 81 MG ECTAB PO SCH (09:00)
--- NOTE | 2020-04-24 09:00 | XRay Report ---
XR chest 2V PA/lateral CLINICAL HISTORY: Post pacemaker. COMPARISON STUDY: Chest radiograph January 17, 2018. FINDINGS: There is no pneumothorax following placement of a dual-lead left subclavian pacemaker. Lead tips project or the right atrial appendage and right ventricle. Mild cardiomegaly is noted. No evide nce for pulmonary edema. Linear right upper lung opacity is unchanged. This favors scarring. There is no consolidation to suggest pneumonia. There is no pleural effusion. There is not a wires and medias tinal surgical clips are again noted. There is a possible hiatal hernia. IMPRESSION: No pneumothorax following placement of a dual-lead left subclavian pacemaker. ACT 112: Negative or not required by law. Electronically signed by: Raghu Mcgowan M.D. 04/24/2020 8:59 AM
--- NOTE | 2020-04-24 17:58 | Operative Report (OR) ---
DATE OF OPERATION: 04/23/2020 PREOPERATIVE DIAGNOSIS: Tachybrady syndrome. POSTOPERATIVE DIAGNOSIS: Tachybrady syndrome. PROCEDURE: Dual chamber rate responsive permanent pacemaker under fluoroscopic guidance. SURGEON: Keri Trujillo DO. ASSISTANTS: None. ANESTHESIA: Monitored conscious sedation administered under my supervision by Holly Ward. Start time 9:40, end time 10:30. Total of 5 mg of Versed and 125 mcg of fentanyl. INTRAVENOUS FLUIDS: 1500 mL of normal saline. ANTIBIOTICS: Two grams of Ancef. BLOOD LOSS: 20 mL. URINE OUTPUT: Not applicable. SPECIMENS: None. FINDINGS: See below. DRAINS: None. INDICATIONS: This is a 74-year-old gentleman with past medical history for tachybrady syndrome, paroxysmal atrial fibrillation, which was found on a [employer] skinning machine feeder in 02/2020. He was started on Eliquis and he remains on high-dose beta annika, CHADS2-VASc score of 4, peripheral arterial disease with claudication with known left popliteal occlusion that was recommended for bypass, but the patient refused, hyperlipidemia, diabetes, coronary artery disease with a history of CABG in 1993, BISHOP to LAD and gastroepiploic artery to the right PDA and [id number] radial artery to the OM and GERD. Due to the evidence of tachybrady syndrome and him requiring extremely high doses of metoprolol that we were unable to come down, he was recommended pacemaker. CONSENT: Consent was obtained prior to the patient going into electrophysiology lab. The patient was informed of the risks, benefits and alternative procedure. Risks include but not limited to sudden cardiac , cardiac arrhythmias, cerebrovascular accident, myocardial infarction, injury to the blood vessels, chamber of the heart, lung, bleeding, and infection. The patient understood these risks and agreed to the procedure as planned. Informed consent was obtained. DESCRIPTION OF THE PROCEDURE: The patient was brought into the electrophysiology lab in a fasting state. He was connected to continuous skinning machine feeder. Timeout was performed to ensure patient identity and procedure correctly. The patient received prophylactic antibiotics prior to incision. He was prepped and draped over the left infraclavicular space in normal surgical standard fashion. Monitored conscious sedation was given throughout the procedure for patient's comfort level. Henderson precautions were maintained throughout the procedure. 20 mL of 1% lidocaine-bupivacaine mixture were given in the left deltopectoral groove. Incision was made in the left deltopectoral groove. Blunt dissection was performed down to identify the cephalic vein. Cephalic vein was identified and isolated using 0 silk ties. The vein was nicked with 11 blade and a guidewire was inserted without any resistance. An 8-Macanese sheath was inserted over the guidewire without any resistance. Dilator was removed and a second guidewire was inserted through the 8-Macanese sheath to allow for retained venous access. Sheath was removed, flushed, dilator reinserted over it and then it was reinserted over one of the guidewires. The guidewire and dilator removed. Right ventricular lead was then advanced into right ventricle and positioned in the right ventricular apex under fluoroscopic guidance. There was adequate pacing and sensing thresholds and no diaphragmatic stimulation with high output pacing. The 8-Macanese sheath was peeled away and lead was fixated to the pectoralis muscle using 0 silk ties. A second 8-Macanese sheath was inserted through the retained guidewire without any resistance. Guidewire and dilator removed. The right atrial lead was then advanced into right atrium and positioned in the right atrial appendage under fluoroscopic guidance. There was adequate pacing and sensing thresholds and no diaphragmatic stimulation with high output pacing. The 8-Macanese sheath was peeled away and lead was fixated to the pectoralis muscle using 0 silk suture. Additional 10 mL of 1% lidocaine-bupivacaine were given in the pectoralis fascia. Then using blunt dissection over the pectoralis muscle within the pectoralis fascia, pacemaker pocket was created. Pocket was flushed with copious amounts of bacitracin saline wash and inspected for hemostasis. The pulse generator was attached to the leads making sure the pins were in appropriate position, passed set screws and set screws were all tightened. A pursestring was placed around the venous puncture site to stop any backbleeding. Then, the pacemaker was placed in the pocket, making sure that the leads were lying flat beneath the device and a stay stitch using 0 silk suture was used to secure the device to the pectoralis muscle. The incision was then closed in a 3-layer fashion using 2-0 Vicryl interrupted suture followed by 3-0 Vicryl suture, followed by Monocryl stitch and Dermabond was applied, followed then by a Telfa and micropore dressing. EQUIPMENT: 1. Pulse generator is a [employer] XT DR AVA Matthews [id number], serial number [id number]. 2. Right atrial lead Medtronic 5076-52 cm, serial number [id number]. 3. Right ventricular lead, Medtronic 5076-58 cm, serial number [id number]. INTRAOPERATIVE TESTIN. Right atrial lead: P waves 3.5 millivolts, impedance 399 ohms, threshold 0.8 volts at 0.4 milliseconds. 2. Right ventricular lead: R waves 15.8 millivolts, impedance 608 ohms, threshold 0.6 volts at 0.4 milliseconds. FINAL PARAMETERS THROUGH THE DEVICE: 1. Right atrial lead: P waves 4.4 millivolts, impedance 399 ohms, threshold 0.75 volts at 0.4 milliseconds. 2. Right ventricular lead: R waves 15.8 millivolts, impedance 608 ohms, threshold 0.5 volts at 0.4 milliseconds. FINAL PARAMETERS: MVP-R 60/130, right atrial amplitude 3.5 volts, pulse width 0.4 milliseconds, sensitivity 0.3 millivolts. Right ventricular amplitude 3.5 volts, pulse width 0.4 milliseconds, sensitivity 1.2 millivolts. IMPRESSION: Successful implantation of a dual chamber rate responsive permanent pacemaker secondary to tachybrady syndrome. PLAN: Monitor patient overnight, 12-lead ECG, chest x-ray. He is not allowed to lift left elbow or left shoulder for 1 month. He cannot lift more than 10 pounds with the left arm for 2 weeks. He cannot play golf for at least 1 month. He is to leave the dressing on and dry until his wound check next week. I attest to the content of the Intraoperative Record and any orders documented therein. Any exception s are noted below.
== END 2020-04-24 09:58 | disposition home or self-care (01) ==
LOC: 2S 08:47 → EP 08:47

== ENCOUNTER 2020-06-25 16:04 | Observation (INO) ==
[2020-06-25] MEDS ORDERED: HYDROmorphone INJ 0.5 MG/0.5 ML SYR IV STA (16:43)
[2020-06-25] MEDS ORDERED: VANCOMYCIN HCL 1,750 MG in SODIUM CHLORIDE 0.9% 500 ML IV ONE (16:43)
[2020-06-25] MEDS ORDERED: VANCOMYCIN CONSULT ACTIVE PRN (16:43)
[2020-06-25] MEDS ORDERED: CEFEPIME 2,000 MG/20 ML VIAL IV STA (16:43)
[2020-06-25] MEDS ORDERED: ONDANSETRON INJ 2 MG/ML 2 ML VIAL IV STA (16:43)
[2020-06-25] MEDS ORDERED: SODIUM CHLORIDE 0.9% 1000ML 500 ML IV ONE (16:43)
[2020-06-25] MEDS ORDERED: SODIUM CHLORIDE 0.9% 1000ML 1,000 ML IV SCH (16:45)
[2020-06-25] MEDS ORDERED: metroNIDAZOLE 500 MG/100 ML BAG IV STA (16:54)
[2020-06-25 17:16] LABS: Basophils # (auto) 0.01 K/uL (0-0.2); Basophils % (auto) 0.1 %; Eosinophils # (auto) 0.02 K/uL (0-0.5); Eosinophils % (auto) 0.2 %; Hematocrit (blood only) 31.9 % (42-52); Hemoglobin 10.9 g/dL (14.0-18.0); Immature Granulocytes # (auto) 0.03 K/uL (0.00-0.02); Immature Granulocytes % (auto) 0.3 %; Lymphocytes # (auto) 0.91 K/uL (1.2-3.4); Lymphocytes % (auto) 8.8 %; Mean Corpuscular Hemoglobin 32.3 pg (25-34); Mean Corpuscular Hgb Conc 34.2 g/dL (32-36); Mean Corpuscular Volume 94.7 fL (80-100); Mean Platelet Volume 9.4 fL (7.4-10.4); Monocytes % (auto) 13.6 %; Neutrophils # (auto) 7.96 K/uL (1.4-6.5); Platelet Count 172 K/uL (130-400); RDW Coefficient of Variation 13.5 % (11.5-14.5); RDW Standard Deviation 46.6 fL (36.4-46.3); Red Blood Count 3.37 M/uL (4.7-6.1); White Blood Count 10.33 K/uL (4.8-10.8)
--- NOTE | 2020-06-25 17:25 | XRay Report ---
XR foot LT min 3V routine CLINICAL HISTORY: L first MTP joint infection, hardware, osteo COMPARISON: CT of the left foot May 09, 2019. FINDINGS: Tarsometatarsal joints are intact. Note is made of revision fusion of the left first metat arsophalangeal joint since CT of May 09, 2019. 2 screws fixate the metatarsophalangeal joint. There is incomplete bony fusion. There is lucency adjacent to one of the screws. Sclerosis is noted. Severa l small bone fragments project along the dorsal aspect of the first metatarsophalangeal joint. IMPRESSION: Status post left first metatarsophalangeal joint fusion. Incomplete bony fusion. Lucency and sclerosis adjacent to one of the screws favors loosening although osteomyelitis could appear anthony lar. ACT 112: Negative or not required by law. Electronically signed by: Raghu Mcgowan M.D. 06/25/2020 5:24 PM
--- NOTE | 2020-06-25 17:29 | XRay Report ---
XR toe(s) LT min 2V CLINICAL HISTORY: L first MTP osteo/hardware COMPARISON: CT of the left foot May 09, 2019. FINDINGS: There is soft tissue swelling of the left first toe. Revision fusion of the left first met atarsophalangeal joint is noted. There is incomplete bony fusion. Several adjacent bone fragments are present. There is lucency adjacent to one of the screws. A portion of one of the screws may be absen t. Sclerosis is noted. No acute fracture is noted. IMPRESSION: 1. Status post left metatarsophalangeal joint effusion with revision since prior CT. Incomplete bony fusion. 2. Left first toe soft tissue swelling. Lucency and sclerosis, most pronounced at the level of the di stal first metatarsal, adjacent to one of the screws could reflect loosening or osteomyelitis. ACT 112: Negative or not required by law. Electronically signed by: Raghu Mcgowan M.D. 06/25/2020 5:27 PM
[2020-06-25 17:34] LABS: Albumin Level 3.8 gm/dl (3.4-5.0); BUN Creatinine Ratio 11.3 (10-20); C Reactive Protein 6.84 mg/dl (0-0.29); Calcium 9.4 mg/dl (8.5-10.1); Creatinine Clr Calc Pharmacy 64.5 ml/min; Est GFR (African American) 78.8; Potassium 3.8 mmol/L (3.5-5.1)
[2020-06-25 17:36] LABS: Albumin Globulin Ratio 1.1 (0.9-2); Bilirubin,Total 0.7 mg/dl (0.2-1); Globulin 3.6 gm/dl (2.5-4.0); Total Protein 7.4 gm/dl (6.4-8.2)
--- NOTE | 2020-06-25 19:11 | History & Physical Report ---
Date of Service June 25, 2020 Assessment & Plan (1) Osteomyelitis: -Admit to [facility] -Patient presenting from home for evaluation of left foot erythema and wound. History of nonhealing wound on the left foot, s/p multiple interventions, most recent being 11/2019. [place] [facility] [place]In the ED, x-ray suggestive of osteomyelitis involving left first metatarsophalangeal joint -Elevated ESR and CRP; afebrile, no leukocytosis, does not appear septic -ED physician spoke with Dr. Butler (covering fo Dr. Saavedra) -recommends oral antibiotics and outpatient follow-up with Dr. Saavedra -will admit for IV antibiotics for a couple of days, discharged on p.o. with close follow-up with Dr. Saavedra -Wound culture 11/2019 grew MSSA -S/p Vanco, cefepime, Flagyl in the ED. Will continue with Vanco and Zosyn for now (2) Tachy-noman syndrome: (3) Pacemaker: (4) Atrial fibrillation: -No acute issues -Rate controlled on metoprolol, will continue -Anticoagulated on Eliquis, will continue (5) CAD (coronary artery disease): -No reports of chest pain -Continue aspirin, statin, beta-annika, nitrate (6) Type 2 diabetes mellitus: -Hgb A1c 6.8 03/2020 -Lantus and NovoLog per protocol while hospitalized (7) DVT prophylaxis: -Anticoagulated on Eliquis History of Present Illness Chief Complaint: Left foot infection Primary Care Provider: Landen Macario DO 75-year-old male with PMH DM type II, dyslipidemia, PVD, history of recurrent osteomyelitis, atrial fibrillation, CAD, and other problems listed below who presents to the ED for evaluation of left foot infection. Patient has history of recurrent osteomyelitis of the left foot and underwent left great toe hardware removal with first metatarsal revision MTP fusion, plantar flexion osteotomy by Dr. Saavedra ([facility]) on 12/07/2019. Wound had completely healed. Patient reports that after golfing 4 days ago, he noted some pain to the medial aspect of the left great toe. There has been increasing redness and development of a small ulcer. Patient reports some minimal purulent drainage. Reports chills yesterday however no fever. Also was having diarrhea, denies abdominal pain and vomiting. No chest pain or shortness of breath. Denies lightheadedness, dizziness, diaphoresis, syncopal events. No urinary symptoms. In the ED, left foot x-ray suggest osteomyelitis of the left first metatarsal. ESR and CRP are elevated. Patient is afebrile, no leukocytosis. He was given IV cefepime, IV Flagyl, IV Vanco, IV Dilaudid, IV Zofran, IVF. Allergies Allergy/AdvReac Type Severity Reaction Status Date / Time No Known Allergies Allergy Verified 06/25/20 19:00 Home Medications Home Medications Medication Instructions Recorded Confirmed Type acetaminophen 650 mg 650 mg PO Q8H PRN tab 09/28/19 06/25/20 History tablet,extended release aspirin 81 mg tablet,delayed 81 mg PO DAILY 09/28/19 06/25/20 History release liraglutide 0.6 mg/0.1 mL (18 mg/3 1.2 mg SQ DAILY 09/28/19 06/25/20 History mL) subcutaneous pen injector metformin 1,000 mg tablet 1,000 mg PO BIDM 09/28/19 06/25/20 History omega-3 fatty acids 1,000 mg 1,000 mg PO BID cap 09/28/19 06/25/20 History capsule apixaban [Eliquis] 5 mg PO BID 06/25/20 06/25/20 History atorvastatin 40 mg PO DAILY 06/25/20 06/25/20 History insulin glargine [Basaglar KwikPen 40 unit SUBCUT QPM 06/25/20 06/25/20 History U-100 Insulin] isosorbide mononitrate 30 mg PO DAILY 06/25/20 06/25/20 History lisinopril 10 mg PO DAILY 06/25/20 06/25/20 History metoprolol succinate 100 mg PO DAILY 06/25/20 06/25/20 History Past Med/Surg History Medical History Atrial fibrillation continue eliquis and high dose metoprolol CAD (coronary artery disease) Hallux rigidus of left foot "S/p multiple surgeries" History of basal cell carcinoma History of melanoma in situ HLD (hyperlipidemia) Pacemaker Peripheral vascular disease of lower extremity Tachy-noman syndrome Pt admitted for elective ppm due to TBS; underwent procedure without any complications; monitored overnight and discharged home. Type 2 diabetes mellitus Surgical History History of cataract surgery History of foot surgery S/P CABG x 4 S/P Mohs surgery for basal cell carcinoma Family History Mother Lymphoma Social History Smoking Status: Current some day smoker Tobacco Type: Cigars Hx Alcohol Use: Yes Hx Substance Use: No Preferred Language: Citizen Of [place] Communication Ability: Effective Theatrical Variety Agent Required: No Beliefs That Will Affect Care: None Current Living Situation: Spouse Feels Safe at Home: Yes Review of Systems Review of Systems: ROS per HPI, all other systems reviewed and negative Physical Exam Constitutional: WD/WN, vitals as above Eyes: PERRL, conjunctivae normal, anicteric sclerae ENMT: external ear and nose normal, oropharynx normal Respiratory: normal respiratory effort, lungs clear to auscultation Cardiovascular: Rate/Rhythm: regular rate and regular rhythm Vessels: normal peripheral pulses Extremities: no edema Gastrointestinal (Abdomen): normal bowel sounds, soft, nontender, no hepatosplenomegaly Musculoskeletal: no cyanosis or clubbing, extremities motor strength 5/5 Skin: no rashes, warm and dry Erythema noted over left great toe extending partially over the dorsal aspect, small scabbed over wound noted to lateral aspect of left great toe Neurologic: PERRL, EOMI, accommodation nl, no face palsy, no dysarthria Psychiatric: A+Ox3, euthymic affect Results & Data Results & Data ([facility]) Vital Signs (Past 12 Hours) Vital Signs Temp Pulse Pulse Resp BP BP Pulse Ox 06/25/20 18:00 79 20 102/76 98 06/25/20 16:13 37.7 C H 101 H 18 150/79 H 96 Laboratory Results Short CBC 06/25/20 Range/Units 17:03 WBC 10.33 (4.8-10.8) K/uL Hgb 10.9 L (14.0-18.0) g/dL Hct 31.9 L (42-52) % Plt Count 172 (130-400) K/uL BMP 06/25/20 17:03 Sodium 139 Potassium 3.8 Chloride 107 Carbon Dioxide 21 BUN 12 Creatinine 1.07 Glucose 91 Calcium 9.4 Liver Function 06/25/20 Range/Units 17:03 Total Bilirubin 0.7 (0.2-1) mg/dl AST 11 L (15-37) U/L ALT 23 (12-78) U/L Alkaline Phosphatase 64 (45-117) U/L Albumin 3.8 (3.4-5.0) gm/dl Diagnostic Findings LEFT FOOT X-RAY IMPRESSION: Status post left first metatarsophalangeal joint fusion. Incomplete bony fusion. Lucency and sclerosis adjacent to one of the screws favors loosening although osteomyelitis could appear similar. LEFT GREAT TOE XRAY IMPRESSION: 1. Status post left metatarsophalangeal joint effusion with revision since prior CT. Incomplete bony fusion. 2. Left first toe soft tissue swelling. Lucency and sclerosis, most pronounced at the level of the distal first metatarsal, adjacent to one of the screws could reflect loosening or osteomyelitis. Code Status & VTE Plan VTE Prophylaxis Plan VTE Prophylaxis will be ordered: No Supervising Physician Co-Signing Physician Notes I, Dr. Josh Canales, have seen and examined the patient Dev Hernandez with Nurse Practitioner and that On Physical Exam General: no acute distress Lungs: normal respiratory rate, clear to auscultation, no wheezing, on room air Heart: regular rate Abdomen: soft, nontender, non-distended Extremities: no edema, the left foot of does not appear to have any purulent drainage at this time Assessment and Plan -give IV vancomcyin and IV Zosyn for osteomyelitis of the left foot -type 2 diabetes mellitus with long-term current use of insulin, treatment of diabetes with insulin but hold the home dose metformin for now - coronary artery disease with a history of CABG in 1993, BISHOP to LAD and gastroepiploic artery to the right PDA and [id number] radial artery to the OM and GERD. -has pacemaker for tachybrady syndrome, paroxysmal atrial fibrillation -on chronic terminal gauger current us of anticoagulation with Eliquis -other cardiovascular medications of aspirn, atorvastatin, metoprolol, isosorbide mononitrate, which can be continued -hold the home dose Lisinopril while monitoring renal function for being on IV Vancomycin -agree with other assessment and plans as per Nurse Practitioner -My hospitalist colleague Dr. Hwang will be following all the patients starting on 06/26/2020
[2020-06-25] MEDS ORDERED: PIPERACILL/TAZOBAC CONSULT ACTIVE PRN (20:01)
[2020-06-25] MEDS ORDERED: CARBOHYDRATES FOR HYPOGLYCEMIA PO PRN (20:01)
[2020-06-25] MEDS ORDERED: DEXTROSE 50% 50 ML SYRINGE IV PRN (20:01)
[2020-06-25] MEDS ORDERED: GLUCAGON FOR INJ 1 MG VIAL SQ PRN (20:01)
[2020-06-25] MEDS ORDERED: GLUCOSE 40% GEL 15 GM TUBE PO PRN (20:01)
[2020-06-25] MEDS ORDERED: GLUCOSE 10 TABS/TUBE PO PRN (20:01)
[2020-06-25] MEDS ORDERED: PIPERACILLIN/TAZOBACTAM 3.375 GM in DEXTROSE 5% 100 ML IV ONE (20:30)
--- NOTE | 2020-06-25 20:45 | Pharmacy Report ---
Pharmacy Abx Dose Short Note - Date of Service June 25, 2020 - Assessment & Plan Assessment 75 year old M with history of recurrent osteomyelitis of the left foot. Patient underwent left great toe hardware removal with first metatarsal revision MTP fusion, plantar flexion osteotomy by Dr. Saavedra ([facility]) on 12/07/2019 Started on empiric vancomycin and zosyn IV Plan Vancomycin * Loading dose: 1750 mg IV (~21 mg/kg) * Maintenance dose: 1250 mg IV q12 (15 mg/kg) * Patient meets criteria for AUC dosing * Level to be ordered with continued therapy Zosyn * 3.375g IV x 30 min, then 3.375g IV q8h (extended infusion) Pharmacy will continue to follow and will adjust dose/frequency as necessary. Thank you.
[2020-06-25] MEDS: INSULIN ASPART 100 UNITS/ML 3 ML PEN SC SCH (21:28)
[2020-06-25] MEDS: INSULIN GLARGINE SOLOSTAR 100 UNITS/ML 3 ML PEN SC SCH (21:30)
[2020-06-25] MEDS: OMEGA-3 (PURIFIED FISH OIL) 1 GM CAP PO SCH (21:36)
[2020-06-25] MEDS: APIXABAN 5 MG TABLET PO SCH (21:36)
[2020-06-25] MEDS: ACETAMINOPHEN 325 MG TAB PO PRN (23:20)
--- NOTE | 2020-06-26 00:42 | Emergency Department Note ---
History of Present Illness General Chief complaint: Infection Stated complaint: infection in left foot Source: patient and RN notes reviewed Mode of arrival: ambulatory Limitations: no limitations History of Present Illness Provider complaint: L FOOT PAIN AND SWELLING Maximum Pain Intensity: 2 This pt is a 75 yo male who presents to the ED with c/o L foot swelling, redness and drainage at the great toe increasing over 3 days. He denies fever but c/o pain. Pt has had 5 previous surgeries at this site for infection, last of which was done by Dr Saavedra at [facility] in January. This is who the pt would want to see again. Pt states he noticed a "metallic piece" eroding through the dorsal surface. She attempted to pull it out w tweezers but was unsuccessful. 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 Home Medications Home Medications Medication Instructions Recorded Confirmed Type acetaminophen 650 mg 650 mg PO Q8H PRN tab 09/28/19 06/25/20 History tablet,extended release aspirin 81 mg tablet,delayed 81 mg PO DAILY 09/28/19 06/25/20 History release liraglutide 0.6 mg/0.1 mL (18 mg/3 1.2 mg SQ DAILY 09/28/19 06/25/20 History mL) subcutaneous pen injector metformin 1,000 mg tablet 1,000 mg PO BIDM 09/28/19 06/25/20 History omega-3 fatty acids 1,000 mg 1,000 mg PO BID cap 09/28/19 06/25/20 History capsule apixaban [Eliquis] 5 mg PO BID 06/25/20 06/25/20 History atorvastatin 40 mg PO DAILY 06/25/20 06/25/20 History insulin glargine [Basaglar KwikPen 40 unit SUBCUT QPM 06/25/20 06/25/20 History U-100 Insulin] isosorbide mononitrate 30 mg PO DAILY 06/25/20 06/25/20 History lisinopril 10 mg PO DAILY 06/25/20 06/25/20 History metoprolol succinate 100 mg PO DAILY 06/25/20 06/25/20 History Allergies Allergy/AdvReac Type Severity Reaction Status Date / Time No Known Allergies Allergy Verified 06/25/20 19:00 Past Med/Surg History Medical History Atrial fibrillation continue eliquis and high dose metoprolol CAD (coronary artery disease) Hallux rigidus of left foot "S/p multiple surgeries" History of basal cell carcinoma History of melanoma in situ HLD (hyperlipidemia) Pacemaker Peripheral vascular disease of lower extremity Tachy-noman syndrome Pt admitted for elective ppm due to TBS; underwent procedure without any complications; monitored overnight and discharged home. Type 2 diabetes mellitus Surgical History History of cataract surgery History of foot surgery S/P CABG x 4 S/P Mohs surgery for basal cell carcinoma Family History Mother Lymphoma Social History Smoking Status: Light tobacco smoker Tobacco Type: Cigars Cigarettes Per Day: 1-2 times a month; Second Hand Exposure: No; Do You Dip or Chew Tobacco: No; Tobacco Cessation Education Requested by Patient: No Hx Alcohol Use: No Hx Substance Use: No Preferred Language: Greek Communication Ability: Effective Relations Manager Required: No Beliefs That Will Affect Care: None Current Living Situation: Spouse Other Information That Helps Us Care for You: No Feels Safe at Home: Yes Safety Concerns: Feels Safe At This Time Review of Systems See HPI for pertinent positives & negatives. and A total of 10 systems reviewed and were otherwise negative Physical Exam Vital Signs Vital Signs - 24 hr 06/25/20 16:13 06/25/20 18:00 Temperature 37.7 C H Temperature Source Oral Pulse Rate 101 H Pulse Rate [Right Finger] 79 Pulse Rhythm [Right Finger] Regular Pulse Strength [Right Finger] Normal Respiratory Rate 18 20 Respiratory Effort / Characteristics Non-Labored Spontaneous Respiratory Depth Normal Respiratory Pattern Agonal Blood Pressure 150/79 H Blood Pressure [Left Arm] 102/76 Blood Pressure Mean 102 Blood Pressure Mean [Left Arm] 84 Pulse Oximetry 96 98 Oxygen Delivery Method Room Air Room Air Sepsis Recent Fever Within 48 Hours Yes Sepsis New/Unexplained Change in Mental Status No Sepsis Action Taken by Nursing No Action Required Vital signs reviewed. General: Well-appearing 75 yo male, in no significant distress. HEENT: No scleral icterus, PERRLA, neck supple. Atraumatic. Cardiovascular: Regular rate and rhythm, no extra sounds. Pulmonary: Clear to auscultation bilaterally, normal work of breathing. Abdomen: Soft, nontender, nondistended, positive bowel sounds. Musculoskeletal: Atraumatic, no peripheral edema. L great MTP with swelling, erythema and a pinpoint area of erosion. Metallic FB seen in erosion. No drainage appreciated. Neurologic: Patient awake alert and oriented x 3 Skin: Warm, dry, erythema tracking to medial L mid-hernández. Course Administered Medications Acetaminophen (Acetaminophen 325 Mg Tab) 650 mg PO Q4H PRN PRN Reason: pain/fever Stop: 07/25/20 20:00 Last Admin: 06/26/20 18:43 Dose: 650 mg Documented by: [id number] Admin: 06/26/20 05:22 Dose: 650 mg Documented by: [id number] Admin: 06/25/20 23:20 Dose: 650 mg Documented by: [id number] Apixaban (Apixaban 5 Mg Tablet) 5 mg PO BID [facility] Stop: 07/25/20 20:59 Last Admin: 06/26/20 08:11 Dose: 5 mg Documented by: [id number] Admin: 06/25/20 21:36 Dose: 5 mg Documented by: [id number] Aspirin (Aspirin 81 Mg Ectab) 81 mg PO DAILY [facility] Stop: 07/26/20 08:59 Last Admin: 06/26/20 08:11 Dose: 81 mg Documented by: [id number] Atorvastatin Calcium (Atorvastatin 40 Mg Tab) 40 mg PO DAILY [facility] Stop: 07/26/20 08:59 Last Admin: 06/26/20 08:12 Dose: 40 mg Documented by: [id number] Bisacodyl (Bisacodyl 5 Mg Tabec) 5 mg PO DAILY PRN PRN Reason: Constipation Stop: 07/26/20 14:29 Last Admin: 06/26/20 16:52 Dose: 5 mg Documented by: [id number] Fish Oil ([place]-3 (Purified Fish Oil) 1 Gm Cap) 1 gm PO BID [facility] Stop: 07/25/20 20:59 Last Admin: 06/26/20 08:10 Dose: 1 gm Documented by: [id number] Admin: 06/25/20 21:36 Dose: 1 gm Documented by: [id number] Piperacillin Sod/Tazobactam (Sod 3.375 gm/ Dextrose) 115 mls @ 28.75 mls/hr IV Q8H [facility]; Protocol Stop: 08/06/20 19:59 Last Admin: 06/26/20 18:33 Dose: 28.8 mls/hr Documented by: [id number] Infusion: 06/26/20 15:10 Dose: 0 mls/hr Documented by: [id number] Admin: 06/26/20 10:41 Dose: 28.8 mls/hr Documented by: [id number] Infusion: 06/26/20 05:20 Dose: 0 mls/hr Documented by: [id number] Admin: 06/26/20 01:45 Dose: 28.8 mls/hr Documented by: [id number] Vancomycin HCl 1,250 mg/ (Sodium Chloride) 275 mls @ 125 mls/hr IV Q12H [facility] Stop: 08/06/20 17:59 Last Admin: 06/26/20 18:33 Dose: 125 mls/hr Documented by: [id number] Infusion: 06/26/20 07:33 Dose: 0 mls/hr Documented by: [id number] Admin: 06/26/20 05:20 Dose: 125 mls/hr Documented by: [id number] Insulin Aspart (Insulin Aspart 100 Units/Ml 3 Ml Pen) 0 units SC ACHS [facility] Stop: 07/25/20 20:59 Last Admin: 06/26/20 17:49 Dose: 6 units Documented by: [id number] Cosigned by: [id number] Admin: 06/26/20 13:04 Dose: 8 units Documented by: [id number] Cosigned by: [id number] Admin: 06/26/20 09:51 Dose: Not Given Documented by: [id number] Admin: 06/25/20 21:28 Dose: 6 units Documented by: [id number] Cosigned by: [id number] Insulin Glargine (Insulin Glargine Solostar 100 Units/Ml 3 Ml Pen) 30 units SC HS [facility] Stop: 07/25/20 20:59 Last Admin: 06/25/20 21:30 Dose: 30 units Documented by: [id number] Cosigned by: [id number] Isosorbide Mononitrate (Isosorbide [place] Extended Rel 30 Mg Tabcr) 30 mg PO DAILY [facility] Stop: 07/26/20 08:59 Last Admin: 06/26/20 08:11 Dose: 30 mg Documented by: [id number] Metoprolol Succinate (Metoprolol Succ 50mg Ext Rel Tab) 100 mg PO DAILY [facility] Stop: 07/26/20 08:59 Last Admin: 06/26/20 08:11 Dose: 100 mg Documented by: [id number] Discontinued Medications Hydromorphone HCl (Hydromorphone Inj 0.5 Mg/0.5 Ml Syr) 0.5 mg IV NOW STA Stop: 06/25/20 16:44 Last Admin: 06/25/20 17:34 Dose: 0.5 mg Documented by: [id number] Sodium Chloride (Nss 1000ml) 500 mls @ 999 mls/hr IV .Q31M ONE Stop: 06/25/20 17:13 Last Infusion: 06/25/20 18:11 Dose: 0 mls/hr Documented by: [id number] Admin: 06/25/20 17:34 Dose: 999 mls/hr Documented by: [id number] Sodium Chloride (Nss 1000ml) 1,000 mls @ 125 mls/hr IV .Q8H [facility] Stop: 07/25/20 16:44 Last Infusion: 06/25/20 23:05 Dose: 0 mls/hr Documented by: [id number] Infusion: 06/25/20 22:34 Dose: 0 mls/hr Documented by: [id number] Infusion: 06/25/20 22:34 Dose: 0 mls/hr Documented by: [id number] Admin: 06/25/20 17:35 Dose: 125 mls/hr Documented by: [id number] Vancomycin HCl 1,750 mg/ (Sodium Chloride) 535 mls @ 200 mls/hr IV NOW ONE Stop: 06/25/20 19:23 Last Infusion: 06/25/20 21:38 Dose: 0 mls/hr Documented by: [id number] Admin: 06/25/20 18:09 Dose: 200 mls/hr Documented by: [id number] Cefepime HCl (Maxipime) 2,000 mg in 20 mls @ 5 mls/min IV NOW STA; Protocol Stop: 06/25/20 16:46 Last Admin: 06/25/20 17:34 Dose: 5 mls/min Documented by: [id number] Metronidazole (Flagyl) 500 mg in 100 mls @ 100 mls/hr IV NOW STA Stop: 06/25/20 17:53 Last Infusion: 06/25/20 19:09 Dose: 0 mls/hr Documented by: [id number] Admin: 06/25/20 17:35 Dose: 100 mls/hr Documented by: [id number] Piperacillin Sod/Tazobactam (Sod 3.375 gm/ Dextrose) 115 mls @ 230 mls/hr IV NOW ONE; Protocol Stop: 06/25/20 20:59 Last Infusion: 06/25/20 22:33 Dose: 0 mls/hr Documented by: [id number] Admin: 06/25/20 21:37 Dose: 230 mls/hr Documented by: [id number] Ondansetron HCl (Ondansetron Inj 2 Mg/Ml 2 Ml Vial) 4 mg IV NOW STA Stop: 06/25/20 16:44 Last Admin: 06/25/20 17:34 Dose: 4 mg Documented by: [id number] Medical Decision Making Differential Diagnosis Differential diagnosis: Etiologies such as fracture, dislocation, osteomyelitis, septic joint, neurovascular compromise, compartment syndrome, soft tissue injury, as well as others were entertained. Medical Records Attestation: I reviewed the patient's medical records. Home Medications Current Medication List: was personally reviewed by me Laboratory Data Attestation: I reviewed the patient's lab results. Result diagrams: 06/26/20 05:25 06/26/20 05:25 Lab Results 06/25/20 06/25/20 06/25/20 Range/Units 17:03 17:03 17:03 WBC 10.33 (4.8-10.8) K/uL RBC 3.37 L (4.7-6.1) M/uL Hgb 10.9 L (14.0-18.0) g/dL Hct 31.9 L (42-52) % MCV 94.7 (80-100) fL MCH 32.3 (25-34) pg MCHC 34.2 (32-36) g/dL RDW Std Deviation 46.6 H (36.4-46.3) fL RDW Coeff of Collin 13.5 (11.5-14.5) % Plt Count 172 (130-400) K/uL MPV 9.4 (7.4-10.4) fL Immature Gran % (Auto) 0.3 % Neut % (Auto) 77.0 % Lymph % (Auto) 8.8 % [place] % (Auto) 13.6 % Eos % (Auto) 0.2 % Baso % (Auto) 0.1 % Neut # (Auto) 7.96 H (1.4-6.5) K/uL Lymph # (Auto) 0.91 L (1.2-3.4) K/uL [place] # (Auto) 1.40 H (0.11-0.59) K/uL Eos # (Auto) 0.02 (0-0.5) K/uL Baso # (Auto) 0.01 (0-0.2) K/uL Immature Gran # (Auto) 0.03 H (0.00-0.02) K/uL ESR 23 H (0-14) mm/hr Sodium 139 (136-145) mmol/L Potassium 3.8 (3.5-5.1) mmol/L Chloride 107 (98-107) mmol/L Carbon Dioxide 21 (21-32) mmol/L Anion Gap 12.0 H (3-11) BUN 12 (7-18) mg/dl Creatinine 1.07 (0.6-1.4) mg/dl Est Cr Clr Drug Dosing 64.5 ml/min Est GFR ( Amer) 78.8 Est GFR (Non-Af Amer) 68.0 BUN/Creatinine Ratio 11.3 (10-20) Glucose 91 (70-99) mg/dl Calcium 9.4 (8.5-10.1) mg/dl Total Bilirubin 0.7 (0.2-1) mg/dl AST 11 L (15-37) U/L ALT 23 (12-78) U/L Alkaline Phosphatase 64 (45-117) U/L C-Reactive Protein 6.84 H (0-0.29) mg/dl Total Protein 7.4 (6.4-8.2) gm/dl Albumin 3.8 (3.4-5.0) gm/dl Globulin 3.6 (2.5-4.0) gm/dl Albumin/Globulin Ratio 1.1 (0.9-2) Imaging Data Radiologist's Impression: XR toe(s) LT min 2V CLINICAL HISTORY: L first MTP osteo/hardware COMPARISON: CT of the left foot May 09, 2019. FINDINGS: There is soft tissue swelling of the left first toe. Revision fusion of the left first metatarsophalangeal joint is noted. There is incomplete bony fusion. Several adjacent bone fragments are present. There is lucency adjacent to one of the screws. A portion of one of the screws may be absent. Sclerosis is noted. No acute fracture is noted. IMPRESSION: 1. Status post left metatarsophalangeal joint effusion with revision since prior CT. Incomplete bony fusion. 2. Left first toe soft tissue swelling. Lucency and sclerosis, most pronounced at the level of the distal first metatarsal, adjacent to one of the screws could reflect loosening or osteomyelitis. ACT 112: Negative or not required by law. Electronically signed by: Raghu Mcgowan M.D. 06/25/2020 5:27 PM XR foot LT min 3V routine CLINICAL HISTORY: L first MTP joint infection, hardware, osteo COMPARISON: CT of the left foot May 09, 2019. FINDINGS: Tarsometatarsal joints are intact. Note is made of revision fusion of the left first metatarsophalangeal joint since CT of May 09, 2019. 2 screws fixate the metatarsophalangeal joint. There is incomplete bony fusion. There is lucency adjacent to one of the screws. Sclerosis is noted. Several small bone fragments project along the dorsal aspect of the first metatarsophalangeal joint. IMPRESSION: Status post left first metatarsophalangeal joint fusion. Incomplete bony fusion. Lucency and sclerosis adjacent to one of the screws favors loosening although osteomyelitis could appear similar. ACT 112: Negative or not required by law. Electronically signed by: Raghu Mcgowan M.D. 06/25/2020 5:24 PM Dictated: 06/25/201718 Transcribed: 06/25/201718 Blood Pressure Blood Pressure Findings: Normal blood pressure Blood Pressure Disposition: did not require urgent referral MDM Narrative This pt was evaluated and appeared to be in no distress. IV access was obtained and lab work was drawn. An order for cardiac monitoring was placed and the pt was noted to be in a paced rhythm at 79 bpm. Lab work reveals a normal WBC, elevated sed rate and CRP. blood cx and wound cx are pending. XR confirms erosive changes near hardware concerning for loosening/ osteomyelitis. IV vancomycin, cefepime and flagyl were administered. Consult was placed with Dr. Montaño of [facility] orthopedics in [place]. He believes the pt should stay at [facility], receive IV ATB with goal of f/u with Dr Saavedra as an outpt. PT was informed of the plan. [facility] hospitalist was consulted for admission and further management. Impression & Plan Osteomyelitis, Cellulitis Discharge Plan Visit Data Chief Complaint: Infection Stated Complaint: infection in left foot ED Provider: Joan Santiago Discharge Problem: Osteomyelitis, Cellulitis Patient Disposition: Admitted As Inpatient Discharge Instructions Interventions: ED Discharge Assessment Last Done: 06/25/20 19:18 Discharge Problem: Osteomyelitis Qualifiers: Osteomyelitis type: unspecified type Osteomyelitis location: foot Laterality: left Qualified Code(s): M86.9 - Osteomyelitis, unspecified Cellulitis Qualifiers: Site of cellulitis: extremity Site of cellulitis of extremity: lower extremity Laterality: left Qualified Code(s): L03.116 - Cellulitis of left lower limb
[2020-06-26] MEDS: PIPERACILLIN/TAZOBACTAM 3.375 GM in DEXTROSE 5% 100 ML IV SCH ×3 (01:45→18:33)
[2020-06-26] MEDS: VANCOMYCIN HCL 1,250 MG in SODIUM CHLORIDE 0.9% 250 ML IV SCH ×2 (05:20→18:33)
[2020-06-26] MEDS: ACETAMINOPHEN 325 MG TAB PO PRN ×2 (05:22→18:43)
[2020-06-26 05:40] LABS: Hematocrit (blood only) 29.6 % (42-52); Hemoglobin 10.2 g/dL (14.0-18.0); Mean Corpuscular Hemoglobin 33.2 pg (25-34); Mean Corpuscular Hgb Conc 34.5 g/dL (32-36); Mean Corpuscular Volume 96.4 fL (80-100); Mean Platelet Volume 9.2 fL (7.4-10.4); Platelet Count 135 K/uL (130-400); RDW Coefficient of Variation 13.6 % (11.5-14.5); Red Blood Count 3.07 M/uL (4.7-6.1); White Blood Count 7.05 K/uL (4.8-10.8)
[2020-06-26 06:06] LABS: Calcium 8.6 mg/dl (8.5-10.1); Creatinine Clr Calc Pharmacy 64.5 ml/min; Est GFR (African American) 78.8; Potassium 3.8 mmol/L (3.5-5.1)
[2020-06-26] MEDS: OMEGA-3 (PURIFIED FISH OIL) 1 GM CAP PO SCH ×2 (08:10→21:19)
[2020-06-26] MEDS: APIXABAN 5 MG TABLET PO SCH ×2 (08:11→21:05)
[2020-06-26] MEDS: METOPROLOL SUCC 50MG EXT REL TAB PO SCH (08:11)
[2020-06-26] MEDS: ISOSORBIDE MONO EXTENDED REL 30 MG TABCR PO SCH (08:11)
[2020-06-26] MEDS: ASPIRIN 81 MG ECTAB PO SCH (08:11)
[2020-06-26] MEDS: ATORVASTATIN 40 MG TAB PO SCH (08:12)
--- NOTE | 2020-06-26 08:42 | Hospitalist Progress Note ---
Date of Service June 26, 2020 Assessment & Plan (1) Osteomyelitis: Concern for osteomyelitis/postsurgical infection -Patient presenting from home for evaluation of left foot erythema and wound. History of nonhealing wound on the left foot, s/p multiple interventions, most r ecent being 11/2019. Follows with Dr. Saavedra at [facility]. -In the ED, x-ray suggestive of osteomyelitis involving left first metatarsophalangeal joint -Elevated ESR and CRP; afebrile, no leukocytosis, does not appear septic -ED physician spoke with Dr. Butler (covering fo Dr. Saavedra) -recommends oral antibiotics and outpatient follow-up with Dr. Saavedra -admitted for IV antibiotics for a couple of days, plan to discharge on p.o. with close follow-up with Dr. Saavedra -Wound culture 11/2019 grew MSSA -Blood culture and wound culture from current admission pending -S/p Vanco, cefepime, Flagyl in the ED. Will continue with Vanco and Zosyn for now (2) Tachy-noman syndrome: (3) Pacemaker: (4) Atrial fibrillation: -No acute issues -Rate controlled on metoprolol, will continue -Anticoagulated on Eliquis, will continue (5) CAD (coronary artery disease): -No reports of chest pain -Continue aspirin, statin, beta-annika, nitrate (6) Type 2 diabetes mellitus: -Hgb A1c 6.8 03/2020 -Lantus and NovoLog per protocol while hospitalized (7) DVT prophylaxis: -Anticoagulated on Eliquis Admission and Anticipated Discharge Date Admission Date: June 25, 2020 Subjective Patient is lying in bed, in no acute distress. He denies any fevers, chills, chest pain, shortness of breath, abdominal pain, nausea vomiting. He says that his left foot feels better, says that it was more red and swollen yesterday and that has improved. Review of Systems Review of Systems: All systems reviewed & are unremarkable except as noted in HPI & below Constitutional: no fever and no chills Respiratory: no cough and no dyspnea Cardiovascular: no chest pain and no palpitations Gastrointestinal: no abdominal pain, no nausea and no vomiting Physical Exam Physical Exam: Constitutional: WD/WN, vitals as above Eyes: PERRL, conjunctivae normal, anicteric sclerae ENMT: external ear and nose normal, oropharynx normal Respiratory: normal respiratory effort, lungs clear to auscultation Cardiovascular: Rate/Rhythm: regular rate and regular rhythm Vessels: normal peripheral pulses Extremities: no edema Gastrointestinal (Abdomen): normal bowel sounds, soft, nontender, no hepatosplenomegaly Musculoskeletal: no cyanosis or clubbing, extremities motor strength 5/5 Skin: no rashes, warm and dry mild Erythema noted over left great toe extending partially over the dorsal aspect (seems improved), very small wound noted to lateral aspect of left great toe, no drainage noted Neurologic: PERRL, EOMI, accommodation nl, no face palsy, no dysarthria Psychiatric: A+Ox3, euthymic affect Results & Data Results & Data ([facility]) Vital Signs (Past 12 Hours) Vital Signs Temp Pulse Resp BP Pulse Ox 06/26/20 07:38 36.4 C L 69 16 122/68 95 06/25/20 23:22 37.0 C 72 14 119/69 94 Laboratory Results 06/26/20 06/26/20 06/25/20 Range/Units 05:25 05:25 20:46 WBC 7.05 (4.8-10.8) K/uL RBC 3.07 L (4.7-6.1) M/uL Hgb 10.2 L (14.0-18.0) g/dL Hct 29.6 L (42-52) % MCV 96.4 (80-100) fL MCH 33.2 (25-34) pg MCHC 34.5 (32-36) g/dL RDW Std Deviation 48.0 H (36.4-46.3) fL RDW Coeff of Collin 13.6 (11.5-14.5) % Plt Count 135 (130-400) K/uL MPV 9.2 (7.4-10.4) fL Immature Gran % (Auto) % Neut % (Auto) % Lymph % (Auto) % [place] % (Auto) % Eos % (Auto) % Baso % (Auto) % Neut # (Auto) (1.4-6.5) K/uL Lymph # (Auto) (1.2-3.4) K/uL [place] # (Auto) (0.11-0.59) K/uL Eos # (Auto) (0-0.5) K/uL Baso # (Auto) (0-0.2) K/uL Immature Gran # (Auto) (0.00-0.02) K/uL ESR (0-14) mm/hr Sodium 141 (136-145) mmol/L Potassium 3.8 (3.5-5.1) mmol/L Chloride 111 H (98-107) mmol/L Carbon Dioxide 24 (21-32) mmol/L Anion Gap 6.0 (3-11) BUN 14 (7-18) mg/dl Creatinine 1.07 (0.6-1.4) mg/dl Est Cr Clr Drug Dosing 64.5 ml/min Est GFR ( Amer) 78.8 Est GFR (Non-Af Amer) 68.0 BUN/Creatinine Ratio 13.0 (10-20) Glucose 97 (70-99) mg/dl POC Glucose 106 H (70-99) mg/dl Calcium 8.6 (8.5-10.1) mg/dl Total Bilirubin (0.2-1) mg/dl AST (15-37) U/L ALT (12-78) U/L Alkaline Phosphatase (45-117) U/L C-Reactive Protein (0-0.29) mg/dl Total Protein (6.4-8.2) gm/dl Albumin (3.4-5.0) gm/dl Globulin (2.5-4.0) gm/dl Albumin/Globulin Ratio (0.9-2) 06/25/20 06/25/20 06/25/20 Range/Units 17:03 17:03 17:03 WBC 10.33 (4.8-10.8) K/uL RBC 3.37 L (4.7-6.1) M/uL Hgb 10.9 L (14.0-18.0) g/dL Hct 31.9 L (42-52) % MCV 94.7 (80-100) fL MCH 32.3 (25-34) pg MCHC 34.2 (32-36) g/dL RDW Std Deviation 46.6 H (36.4-46.3) fL RDW Coeff of Collin 13.5 (11.5-14.5) % Plt Count 172 (130-400) K/uL MPV 9.4 (7.4-10.4) fL Immature Gran % (Auto) 0.3 % Neut % (Auto) 77.0 % Lymph % (Auto) 8.8 % [place] % (Auto) 13.6 % Eos % (Auto) 0.2 % Baso % (Auto) 0.1 % Neut # (Auto) 7.96 H (1.4-6.5) K/uL Lymph # (Auto) 0.91 L (1.2-3.4) K/uL [place] # (Auto) 1.40 H (0.11-0.59) K/uL Eos # (Auto) 0.02 (0-0.5) K/uL Baso # (Auto) 0.01 (0-0.2) K/uL Immature Gran # (Auto) 0.03 H (0.00-0.02) K/uL ESR 23 H (0-14) mm/hr Sodium 139 (136-145) mmol/L Potassium 3.8 (3.5-5.1) mmol/L Chloride 107 (98-107) mmol/L Carbon Dioxide 21 (21-32) mmol/L Anion Gap 12.0 H (3-11) BUN 12 (7-18) mg/dl Creatinine 1.07 (0.6-1.4) mg/dl Est Cr Clr Drug Dosing 64.5 ml/min Est GFR ( Amer) 78.8 Est GFR (Non-Af Amer) 68.0 BUN/Creatinine Ratio 11.3 (10-20) Glucose 91 (70-99) mg/dl POC Glucose (70-99) mg/dl Calcium 9.4 (8.5-10.1) mg/dl Total Bilirubin 0.7 (0.2-1) mg/dl AST 11 L (15-37) U/L ALT 23 (12-78) U/L Alkaline Phosphatase 64 (45-117) U/L C-Reactive Protein 6.84 H (0-0.29) mg/dl Total Protein 7.4 (6.4-8.2) gm/dl Albumin 3.8 (3.4-5.0) gm/dl Globulin 3.6 (2.5-4.0) gm/dl Albumin/Globulin Ratio 1.1 (0.9-2) Medications Administered Current Inpatient Medications Acetaminophen (Acetaminophen 325 Mg Tab) 650 mg PO Q4H PRN PRN Reason: pain/fever Stop: 07/25/20 20:00 Last Admin: 06/26/20 05:22 Dose: 650 mg Documented by: Apixaban (Apixaban 5 Mg Tablet) 5 mg PO BID [facility] Stop: 07/25/20 20:59 Last Admin: 06/26/20 08:11 Dose: 5 mg Documented by: Aspirin (Aspirin 81 Mg Ectab) 81 mg PO DAILY [facility] Stop: 07/26/20 08:59 Last Admin: 06/26/20 08:11 Dose: 81 mg Documented by: Atorvastatin Calcium (Atorvastatin 40 Mg Tab) 40 mg PO DAILY [facility] Stop: 07/26/20 08:59 Last Admin: 06/26/20 08:12 Dose: 40 mg Documented by: Dextrose (Dextrose 50% 50 Ml Syringe) 25 - 50 ml IV UD PRN; Protocol PRN Reason: Hypoglycemia Protocol Stop: 07/25/20 20:00 Fish Oil ([place]-3 (Purified Fish Oil) 1 Gm Cap) 1 gm PO BID [facility] Stop: 07/25/20 20:59 Last Admin: 06/26/20 08:10 Dose: 1 gm Documented by: Glucagon (Glucagon For Inj 1 Mg Vial) 1 mg SQ UD PRN; Protocol PRN Reason: Hypoglycemia Protocol Stop: 07/25/20 20:00 Glucose (Glucose 10 Tabs/Tube) 4 - 8 tabs PO UD PRN; Protocol PRN Reason: Hypoglycemia Protocol Stop: 07/25/20 20:00 Glucose (Glucose 40% Gel 15 Gm Tube) 15 - 30 gm PO UD PRN; Protocol PRN Reason: Hypoglycemia Protocol Stop: 07/25/20 20:00 Piperacillin Sod/Tazobactam (Sod 3.375 gm/ Dextrose) 115 mls @ 28.75 mls/hr IV Q8H [facility]; Protocol Stop: 08/06/20 19:59 Last Infusion: 06/26/20 05:20 Dose: Infused Documented by: Vancomycin HCl 1,250 mg/ (Sodium Chloride) 275 mls @ 125 mls/hr IV Q12H [facility] Stop: 08/06/20 17:59 Last Infusion: 06/26/20 07:33 Dose: Infused Documented by: Insulin Aspart (Insulin Aspart 100 Units/Ml 3 Ml Pen) 0 units SC ACHS [facility] Stop: 07/25/20 20:59 Last Admin: 06/25/20 21:28 Dose: 6 units Documented by: Insulin Glargine (Insulin Glargine Solostar 100 Units/Ml 3 Ml Pen) 30 units SC HS [facility] Stop: 07/25/20 20:59 Last Admin: 06/25/20 21:30 Dose: 30 units Documented by: Isosorbide Mononitrate (Isosorbide [place] Extended Rel 30 Mg Tabcr) 30 mg PO DAILY [facility] Stop: 07/26/20 08:59 Last Admin: 06/26/20 08:11 Dose: 30 mg Documented by: Metoprolol Succinate (Metoprolol Succ 50mg Ext Rel Tab) 100 mg PO DAILY [facility] Stop: 07/26/20 08:59 Last Admin: 06/26/20 08:11 Dose: 100 mg Documented by: Miscellaneous (Carbohydrates For Hypoglycemia ) 15 - 30 gm PO UD PRN PRN Reason: Hypoglycemia Protocol Stop: 07/25/20 20:00 Miscellaneous Information (Vancomycin Consult Active) 1 ea N/A UD PRN PRN Reason: Consult Stop: 07/25/20 16:42 Miscellaneous Information (Piperacill/Tazobac Consult Active) 1 ea N/A UD PRN PRN Reason: Consult Stop: 07/25/20 20:00
[2020-06-26] MEDS: INSULIN ASPART 100 UNITS/ML 3 ML PEN SC SCH ×4 (09:51→21:05)
[2020-06-26] MEDS: bisacodyL 5 MG TABEC PO PRN (16:52)
[2020-06-26] MEDS: INSULIN GLARGINE SOLOSTAR 100 UNITS/ML 3 ML PEN SC SCH (21:06)
[2020-06-27] MEDS: PIPERACILLIN/TAZOBACTAM 3.375 GM in DEXTROSE 5% 100 ML IV SCH ×3 (02:22→18:14)
[2020-06-27 05:56] LABS: Hematocrit (blood only) 34.2 % (42-52); Hemoglobin 11.1 g/dL (14.0-18.0); Mean Corpuscular Hemoglobin 31.1 pg (25-34); Mean Corpuscular Hgb Conc 32.5 g/dL (32-36); Mean Corpuscular Volume 95.8 fL (80-100); Mean Platelet Volume 9.2 fL (7.4-10.4); Platelet Count 163 K/uL (130-400); RDW Coefficient of Variation 13.3 % (11.5-14.5); RDW Standard Deviation 46.4 fL (36.4-46.3); Red Blood Count 3.57 M/uL (4.7-6.1); White Blood Count 5.41 K/uL (4.8-10.8)
[2020-06-27] MEDS: VANCOMYCIN HCL 1,250 MG in SODIUM CHLORIDE 0.9% 250 ML IV SCH ×2 (06:12→18:14)
[2020-06-27 06:29] LABS: BUN Creatinine Ratio 12.4 (10-20); Creatinine Clr Calc Pharmacy 62.2 ml/min; Est GFR (African American) 75.4; Est GFR (Non-African American) 65.1; Potassium 3.8 mmol/L (3.5-5.1)
[2020-06-27 06:31] LABS: C Reactive Protein 5.13 mg/dl (0-0.29)
--- NOTE | 2020-06-27 07:41 | Hospitalist Progress Note ---
Date of Service June 27, 2020 Assessment & Plan (1) Osteomyelitis: Concern for osteomyelitis/postsurgical infection -Patient presenting from home for evaluation of left foot erythema and wound. History of nonhealing wound on the left foot, s/p multiple interventions, most recent being 11/2019. Follow[place] with Dr. Saavedra at [facility] [place] -In the ED, x-ray suggestive of osteomyelitis involving left first metatarsophalangeal joint -Elevated ESR and CRP; afebrile, no leukocytosis, does not appear septic -ED physician spoke with Dr. Butler (covering fo Dr. Saavedra) -recommends oral antibiotics and outpatient follow-up with Dr. Saavedra, the appointment was scheduled for July 03, at 1 PM -admitted for IV antibiotics for a couple of days, plan to discharge on p.o. with close follow-up with Dr. Saavedra -Wound culture 11/2019 grew MSSA -Blood culture and wound culture from current admission (06/25) pending -discussed with the patient that if blood cultures negative for 48 hours, plan to DC on p.o. antibiotics and follow-up with Dr. Saavedra, patient in agreement -S/p Vanco, cefepime, Flagyl in the ED. Will continue with Vanco and Zosyn for now (2) Tachy-noman syndrome: (3) Pacemaker: (4) Atrial fibrillation: -No acute issues -Rate controlled on metoprolol, will continue -Anticoagulated on Eliquis, will continue (5) CAD (coronary artery disease): -No reports of chest pain -Continue aspirin, statin, beta-annika, nitrate (6) Type 2 diabetes mellitus: -Hgb A1c 6.8 03/2020 -Lantus and NovoLog per protocol while hospitalized (7) DVT prophylaxis: -Anticoagulated on Eliquis Admission and Anticipated Discharge Date Admission Date: June 25, 2020 Subjective Patient is lying in bed, in no acute distress. He denies any fevers, chills, chest pain, shortness of breath, abdominal pain, nausea vomiting. He says that his left foot feels better, says that it was more red and swollen on admission and that has improved. Review of Systems Review of Systems: All systems reviewed & are unremarkable except as noted in HPI & below Constitutional: no fever and no chills Respiratory: no cough and no dyspnea Cardiovascular: no chest pain and no palpitations Gastrointestinal: no abdominal pain, no nausea and no vomiting Physical Exam Physical Exam: Constitutional: WD/WN, vitals as above Eyes: PERRL, conjunctivae normal, anicteric sclerae ENMT: external ear and nose normal, oropharynx normal Respiratory: normal respiratory effort, lungs clear to auscultation Cardiovascular: Rate/Rhythm: regular rate and regular rhythm Vessels: normal peripheral pulses Extremities: no edema Gastrointestinal (Abdomen): normal bowel sounds, soft, nontender to palpation Musculoskeletal: no cyanosis or clubbing, extremities motor strength 5/5 Skin: no rashes, warm and dry mild Erythema noted over left great toe extending partially over the dorsal aspect (seems improved), very small wound noted to lateral aspect of left great toe, no drainage noted Neurologic: PERRL, EOMI, accommodation nl, no face palsy, no dysarthria Psychiatric: A+Ox3, euthymic affect Results & Data Results & Data ([facility]) Vital Signs (Past 12 Hours) Vital Signs Temp Pulse Resp BP Pulse Ox 06/26/20 23:26 36.9 C 74 15 125/70 93 Laboratory Results 06/27/20 06/27/20 06/27/20 Range/Units 05:42 05:42 05:42 WBC 5.41 (4.8-10.8) K/uL RBC 3.57 L (4.7-6.1) M/uL Hgb 11.1 L (14.0-18.0) g/dL Hct 34.2 L (42-52) % MCV 95.8 (80-100) fL MCH 31.1 (25-34) pg MCHC 32.5 (32-36) g/dL RDW Std Deviation 46.4 H (36.4-46.3) fL RDW Coeff of Collin 13.3 (11.5-14.5) % Plt Count 163 (130-400) K/uL MPV 9.2 (7.4-10.4) fL ESR 19 H (0-14) mm/hr Sodium 142 (136-145) mmol/L Potassium 3.8 (3.5-5.1) mmol/L Chloride 112 H (98-107) mmol/L Carbon Dioxide 25 (21-32) mmol/L Anion Gap 5.0 (3-11) BUN 14 (7-18) mg/dl Creatinine 1.11 (0.6-1.4) mg/dl Est Cr Clr Drug Dosing 62.2 ml/min Est GFR ( Amer) 75.4 Est GFR (Non-Af Amer) 65.1 BUN/Creatinine Ratio 12.4 (10-20) Glucose 111 H (70-99) mg/dl POC Glucose (70-99) mg/dl Calcium 9.0 (8.5-10.1) mg/dl C-Reactive Protein 5.13 H (0-0.29) mg/dl 06/26/20 06/26/20 06/26/20 Range/Units 20:27 17:20 12:21 WBC (4.8-10.8) K/uL RBC (4.7-6.1) M/uL Hgb (14.0-18.0) g/dL Hct (42-52) % MCV (80-100) fL MCH (25-34) pg MCHC (32-36) g/dL RDW Std Deviation (36.4-46.3) fL RDW Coeff of Collin (11.5-14.5) % Plt Count (130-400) K/uL MPV (7.4-10.4) fL ESR (0-14) mm/hr Sodium (136-145) mmol/L Potassium (3.5-5.1) mmol/L Chloride (98-107) mmol/L Carbon Dioxide (21-32) mmol/L Anion Gap (3-11) BUN (7-18) mg/dl Creatinine (0.6-1.4) mg/dl Est Cr Clr Drug Dosing ml/min Est GFR ( Amer) Est GFR (Non-Af Amer) BUN/Creatinine Ratio (10-20) Glucose (70-99) mg/dl POC Glucose 220 H 191 H 174 H (70-99) mg/dl Calcium (8.5-10.1) mg/dl C-Reactive Protein (0-0.29) mg/dl 06/26/20 Range/Units 08:24 WBC (4.8-10.8) K/uL RBC (4.7-6.1) M/uL Hgb (14.0-18.0) g/dL Hct (42-52) % MCV (80-100) fL MCH (25-34) pg MCHC (32-36) g/dL RDW Std Deviation (36.4-46.3) fL RDW Coeff of Collin (11.5-14.5) % Plt Count (130-400) K/uL MPV (7.4-10.4) fL ESR (0-14) mm/hr Sodium (136-145) mmol/L Potassium (3.5-5.1) mmol/L Chloride (98-107) mmol/L Carbon Dioxide (21-32) mmol/L Anion Gap (3-11) BUN (7-18) mg/dl Creatinine (0.6-1.4) mg/dl Est Cr Clr Drug Dosing ml/min Est GFR ( Amer) Est GFR (Non-Af Amer) BUN/Creatinine Ratio (10-20) Glucose (70-99) mg/dl POC Glucose 119 H (70-99) mg/dl Calcium (8.5-10.1) mg/dl C-Reactive Protein (0-0.29) mg/dl Medications Administered Current Inpatient Medications Acetaminophen (Acetaminophen 325 Mg Tab) 650 mg PO Q4H PRN PRN Reason: pain/fever Stop: 07/25/20 20:00 Last Admin: 06/26/20 18:43 Dose: 650 mg Documented by: Apixaban (Apixaban 5 Mg Tablet) 5 mg PO BID [facility] Stop: 07/25/20 20:59 Last Admin: 06/26/20 21:05 Dose: 5 mg Documented by: Aspirin (Aspirin 81 Mg Ectab) 81 mg PO DAILY R[facility] Stop: 07/26/20 08:59 Last Admin: 06/26/20 08:11 Dose: 81 mg Documented by: Atorvastatin Calcium (Atorvastatin 40 Mg Tab) 40 mg PO DAILY RIVERA Stop: 07/26/20 08:59 Last Admin: 06/26/20 08:12 Dose: 40 mg Documented by: Bisacodyl (Bisacodyl 5 Mg Tabec) 5 mg PO DAILY PRN PRN Reason: Constipation Stop: 07/26/20 14:29 Last Admin: 06/26/20 16:52 Dose: 5 mg Documented by: Dextrose (Dextrose 50% 50 Ml Syringe) 25 - 50 ml IV UD PRN; Protocol PRN Reason: Hypoglycemia Protocol Stop: 07/25/20 20:00 Fish Oil ([place]-3 (Purified Fish Oil) 1 Gm Cap) 1 gm PO BID RIVERA Stop: 07/25/20 20:59 Last Admin: 06/26/20 21:19 Dose: 1 gm Documented by: Glucagon (Glucagon For Inj 1 Mg Vial) 1 mg SQ UD PRN; Protocol PRN Reason: Hypoglycemia Protocol Stop: 07/25/20 20:00 Glucose (Glucose 10 Tabs/Tube) 4 - 8 tabs PO UD PRN; Protocol PRN Reason: Hypoglycemia Protocol Stop: 07/25/20 20:00 Glucose (Glucose 40% Gel 15 Gm Tube) 15 - 30 gm PO UD PRN; Protocol PRN Reason: Hypoglycemia Protocol Stop: 07/25/20 20:00 Piperacillin Sod/Tazobactam (Sod 3.375 gm/ Dextrose) 115 mls @ 28.75 mls/hr IV Q8H [facility]; Protocol Stop: 08/06/20 19:59 Last Infusion: 06/27/20 06:22 Dose: Infused Documented by: Vancomycin HCl 1,250 mg/ (Sodium Chloride) 275 mls @ 125 mls/hr IV Q12H [facility] Stop: 08/06/20 17:59 Last Admin: 06/27/20 06:12 Dose: 125 mls/hr Documented by: Insulin Aspart (Insulin Aspart 100 Units/Ml 3 Ml Pen) 0 units SC ACHS [facility] Stop: 07/25/20 20:59 Last Admin: 06/26/20 21:05 Dose: 5 units Documented by: Insulin Glargine (Insulin Glargine Solostar 100 Units/Ml 3 Ml Pen) 30 units SC HS [facility] Stop: 07/25/20 20:59 Last Admin: 06/26/20 21:06 Dose: 30 units Documented by: Isosorbide Mononitrate (Isosorbide [place] Extended Rel 30 Mg Tabcr) 30 mg PO DAILY [facility] Stop: 07/26/20 08:59 Last Admin: 06/26/20 08:11 Dose: 30 mg Documented by: Metoprolol Succinate (Metoprolol Succ 50mg Ext Rel Tab) 100 mg PO DAILY [facility] Stop: 07/26/20 08:59 Last Admin: 06/26/20 08:11 Dose: 100 mg Documented by: Miscellaneous (Carbohydrates For Hypoglycemia ) 15 - 30 gm PO UD PRN PRN Reason: Hypoglycemia Protocol Stop: 07/25/20 20:00 Miscellaneous Information (Vancomycin Consult Active) 1 ea N/A UD PRN PRN Reason: Consult Stop: 07/25/20 16:42 Miscellaneous Information (Piperacill/Tazobac Consult Active) 1 ea N/A UD PRN PRN Reason: Consult Stop: 07/25/20 20:00 (1) Osteomyelitis Laterality: left Osteomyelitis location: foot Osteomyelitis type: unspecified type Qualified Code(s): M86.9 - Osteomyelitis, unspecified
[2020-06-27] MEDS: METOPROLOL SUCC 50MG EXT REL TAB PO SCH (08:50)
[2020-06-27] MEDS: OMEGA-3 (PURIFIED FISH OIL) 1 GM CAP PO SCH ×2 (08:50→20:42)
[2020-06-27] MEDS: ISOSORBIDE MONO EXTENDED REL 30 MG TABCR PO SCH (08:50)
[2020-06-27] MEDS: INSULIN ASPART 100 UNITS/ML 3 ML PEN SC SCH ×4 (08:51→20:40)
[2020-06-27] MEDS: ATORVASTATIN 40 MG TAB PO SCH (08:51)
[2020-06-27] MEDS: APIXABAN 5 MG TABLET PO SCH ×2 (08:51→20:41)
[2020-06-27] MEDS: ASPIRIN 81 MG ECTAB PO SCH (08:51)
[2020-06-27] MEDS: bisacodyL 5 MG TABEC PO PRN (09:01)
[2020-06-27] MEDS ORDERED: bisacodyL 5 MG TABEC PO ONE (17:22)
[2020-06-27] MEDS ORDERED: VANCOMYCIN TROUGH ONE (17:30)
[2020-06-27] MEDS: POLYETHYLENE (MIRALAX) 17 GM PACK PO SCH (18:08)
[2020-06-27] MEDS: ACETAMINOPHEN 325 MG TAB PO PRN (18:21)
--- NOTE | 2020-06-27 19:01 | Pharmacy Report ---
Pharmacy Abx Dose Short Note - Date of Service June 27, 2020 - Assessment & Plan Assessment 75 year old M receiving vancomycin for treatment of osteomyelitis Day # 3 of antimicrobial therapy. Plan Vancomycin * Trough level came back therapeutic at ~15 mcg/ml (goal 15-20 mcg/mlg) * Will plan to continue same vancomycin dosing 1250 q 12 hrs * Renal function remains stable / plan to recheck trough in next 2-3 days if needed Pharmacy will continue to follow and will adjust dose/frequency as necessary. Thank you.
[2020-06-27] MEDS: INSULIN GLARGINE SOLOSTAR 100 UNITS/ML 3 ML PEN SC SCH (20:40)
[2020-06-28] MEDS: ACETAMINOPHEN 325 MG TAB PO PRN (00:09)
[2020-06-28] MEDS: PIPERACILLIN/TAZOBACTAM 3.375 GM in DEXTROSE 5% 100 ML IV SCH ×2 (02:07→10:47)
[2020-06-28] MEDS: VANCOMYCIN HCL 1,250 MG in SODIUM CHLORIDE 0.9% 250 ML IV SCH (05:54)
[2020-06-28 06:18] LABS: Hematocrit (blood only) 35.1 % (42-52); Hemoglobin 11.4 g/dL (14.0-18.0); Mean Corpuscular Hemoglobin 30.6 pg (25-34); Mean Corpuscular Hgb Conc 32.5 g/dL (32-36); Mean Corpuscular Volume 94.1 fL (80-100); Mean Platelet Volume 9.5 fL (7.4-10.4); Platelet Count 183 K/uL (130-400); RDW Standard Deviation 44.8 fL (36.4-46.3); Red Blood Count 3.73 M/uL (4.7-6.1); White Blood Count 5.85 K/uL (4.8-10.8)
[2020-06-28 06:46] LABS: Calcium 8.9 mg/dl (8.5-10.1); Creatinine Clr Calc Pharmacy 62.8 ml/min; Est GFR (African American) 76.2; Est GFR (Non-African American) 65.8; Potassium 3.6 mmol/L (3.5-5.1)
[2020-06-28] MEDS: APIXABAN 5 MG TABLET PO SCH (09:07)
[2020-06-28] MEDS: POLYETHYLENE (MIRALAX) 17 GM PACK PO SCH (09:07)
[2020-06-28] MEDS: OMEGA-3 (PURIFIED FISH OIL) 1 GM CAP PO SCH (09:07)
[2020-06-28] MEDS: METOPROLOL SUCC 50MG EXT REL TAB PO SCH (09:07)
[2020-06-28] MEDS: INSULIN ASPART 100 UNITS/ML 3 ML PEN SC SCH (09:07)
[2020-06-28] MEDS: ISOSORBIDE MONO EXTENDED REL 30 MG TABCR PO SCH (09:07)
[2020-06-28] MEDS: ATORVASTATIN 40 MG TAB PO SCH (09:07)
[2020-06-28] MEDS: ASPIRIN 81 MG ECTAB PO SCH (09:07)
--- NOTE | 2020-06-28 09:38 | Hospitalist Progress Note ---
Date of Service June 28, 2020 Assessment & Plan (1) Osteomyelitis: Concern for osteomyelitis/postsurgical infection -Patient presenting from home for evaluation of left foot erythema and wound. History of nonhealing wound on the left foot, s/p multiple interventions, most recent being 11/2019. [place] [facility] [place]In the ED, x-ray suggestive of osteomyelitis involving left first metatarsophalangeal joint -Elevated ESR and CRP; afebrile, no leukocytosis, does not appear septic -ESR admission 23, down to 19, CRP on admission 6.8 down to 5.1 -ED physician spoke with Dr. Butler (covering fo Dr. Saavedra) -recommends oral antibiotics and outpatient follow-up with Dr. Saavedra, the appointment was scheduled for July 03, at 1 PM -admitted for IV antibiotics for a couple of days, plan to discharge on p.o. with close follow-up with Dr. Saavedra -Wound culture 11/2019 grew MSSA -Blood culture and wound culture from current admission (06/25) -negative wound culture and blood culture negative for 48 hours -discussed with the patient that if blood cultures negative for 48 hours, plan to DC on p.o. antibiotics and follow-up with Dr. Saavedra, patient in agreement -S/p Vanco, cefepime, Flagyl in the ED. Continued with Vanco and Zosyn while inpt (2) Tachy-noman syndrome: (3) Pacemaker: (4) Atrial fibrillation: -No acute issues -Rate controlled on metoprolol, will continue -Anticoagulated on Eliquis, will continue (5) CAD (coronary artery disease): -No reports of chest pain -Continue aspirin, statin, beta-annika, nitrate (6) Type 2 diabetes mellitus: -Hgb A1c 6.8 03/2020 -Lantus and NovoLog per protocol while hospitalized (7) DVT prophylaxis: -Anticoagulated on Eliquis Admission and Anticipated Discharge Date Admission Date: June 25, 2020 Subjective Patient is lying in bed, in no acute distress. He denies any fevers, chills, chest pain, shortness of breath, abdominal pain, nausea vomiting. He says that his left foot feels better, says that it was more red and swollen on admission and that has improved. Discussed that you are waiting for blood cultures to be negative for 48 hours, and these are so far negative. He will need to follow-up with Dr. Saavedra and appointment was set up for him for July 03. Patient is in understanding and agreement with the plan. Review of Systems Review of Systems: All systems reviewed & are unremarkable except as noted in HPI & below Constitutional: no fever and no chills Respiratory: no cough and no dyspnea Cardiovascular: no chest pain and no palpitations Gastrointestinal: no abdominal pain, no nausea and no vomiting Physical Exam Physical Exam: Constitutional: WD/WN, vitals as above Eyes: PERRL, conjunctivae normal, anicteric sclerae ENMT: external ear and nose normal, oropharynx normal Respiratory: normal respiratory effort, lungs clear to auscultation Cardiovascular: Rate/Rhythm: regular rate and regular rhythm Vessels: normal peripheral pulses Extremities: no edema Gastrointestinal (Abdomen): normal bowel sounds, soft, nontender to palpation Musculoskeletal: no cyanosis or clubbing, extremities motor strength 5/5 Skin: no rashes, warm and dry mild Erythema noted over left great toe extending partially over the dorsal aspect (improved), very small wound noted to lateral aspect of left great toe, no drainage noted Neurologic: PERRL, EOMI, accommodation nl, no face palsy, no dysarthria Psychiatric: A+Ox3, euthymic affect Results & Data Results & Data ([facility]) Vital Signs (Past 12 Hours) Vital Signs Temp Pulse Resp BP BP Pulse Ox 06/28/20 07:07 36.9 C 66 18 149/75 H 97 06/27/20 23:39 36.9 C 59 L 14 121/63 94 Laboratory Results 06/28/20 06/28/20 06/28/20 Range/Units 08:30 05:19 05:19 WBC 5.85 (4.8-10.8) K/uL RBC 3.73 L (4.7-6.1) M/uL Hgb 11.4 L (14.0-18.0) g/dL Hct 35.1 L (42-52) % MCV 94.1 (80-100) fL MCH 30.6 (25-34) pg MCHC 32.5 (32-36) g/dL RDW Std Deviation 44.8 (36.4-46.3) fL RDW Coeff of Collin 13.0 (11.5-14.5) % Plt Count 183 (130-400) K/uL MPV 9.5 (7.4-10.4) fL Sodium 144 (136-145) mmol/L Potassium 3.6 (3.5-5.1) mmol/L Chloride 111 H (98-107) mmol/L Carbon Dioxide 25 (21-32) mmol/L Anion Gap 8.0 (3-11) BUN 15 (7-18) mg/dl Creatinine 1.10 (0.6-1.4) mg/dl Est Cr Clr Drug Dosing 62.8 ml/min Est GFR ( Amer) 76.2 Est GFR (Non-Af Amer) 65.8 BUN/Creatinine Ratio 14.0 (10-20) Glucose 107 H (70-99) mg/dl POC Glucose 124 H (70-99) mg/dl Calcium 8.9 (8.5-10.1) mg/dl Vancomycin Trough (See Comment) mcg/ml 06/27/20 06/27/20 06/27/20 Range/Units 20:38 17:30 17:02 WBC (4.8-10.8) K/uL RBC (4.7-6.1) M/uL Hgb (14.0-18.0) g/dL Hct (42-52) % MCV (80-100) fL MCH (25-34) pg MCHC (32-36) g/dL RDW Std Deviation (36.4-46.3) fL RDW Coeff of Collin (11.5-14.5) % Plt Count (130-400) K/uL MPV (7.4-10.4) fL Sodium (136-145) mmol/L Potassium (3.5-5.1) mmol/L Chloride (98-107) mmol/L Carbon Dioxide (21-32) mmol/L Anion Gap (3-11) BUN (7-18) mg/dl Creatinine (0.6-1.4) mg/dl Est Cr Clr Drug Dosing ml/min Est GFR ( Amer) Est GFR (Non-Af Amer) BUN/Creatinine Ratio (10-20) Glucose (70-99) mg/dl POC Glucose 177 H 183 H (70-99) mg/dl Calcium (8.5-10.1) mg/dl Vancomycin Trough 15.0 (See Comment) mcg/ml 06/27/20 Range/Units 12:17 WBC (4.8-10.8) K/uL RBC (4.7-6.1) M/uL Hgb (14.0-18.0) g/dL Hct (42-52) % MCV (80-100) fL MCH (25-34) pg MCHC (32-36) g/dL RDW Std Deviation (36.4-46.3) fL RDW Coeff of Collin (11.5-14.5) % Plt Count (130-400) K/uL MPV (7.4-10.4) fL Sodium (136-145) mmol/L Potassium (3.5-5.1) mmol/L Chloride (98-107) mmol/L Carbon Dioxide (21-32) mmol/L Anion Gap (3-11) BUN (7-18) mg/dl Creatinine (0.6-1.4) mg/dl Est Cr Clr Drug Dosing ml/min Est GFR ( Amer) Est GFR (Non-Af Amer) BUN/Creatinine Ratio (10-20) Glucose (70-99) mg/dl POC Glucose 208 H (70-99) mg/dl Calcium (8.5-10.1) mg/dl Vancomycin Trough (See Comment) mcg/ml Medications Administered Current Inpatient Medications Acetaminophen (Acetaminophen 325 Mg Tab) 650 mg PO Q4H PRN PRN Reason: pain/fever Stop: 07/25/20 20:00 Last Admin: 06/28/20 00:09 Dose: 650 mg Documented by: Apixaban (Apixaban 5 Mg Tablet) 5 mg PO BID RIVERA Stop: 07/25/20 20:59 Last Admin: 06/28/20 09:07 Dose: 5 mg Documented by: Aspirin (Aspirin 81 Mg Ectab) 81 mg PO DAILY [facility] Stop: 07/26/20 08:59 Last Admin: 06/28/20 09:07 Dose: 81 mg Documented by: Atorvastatin Calcium (Atorvastatin 40 Mg Tab) 40 mg PO DAILY [facility] Stop: 07/26/20 08:59 Last Admin: 06/28/20 09:07 Dose: 40 mg Documented by: Bisacodyl (Bisacodyl 5 Mg Tabec) 5 mg PO DAILY PRN PRN Reason: Constipation Stop: 07/26/20 14:29 Last Admin: 06/27/20 09:01 Dose: 5 mg Documented by: Dextrose (Dextrose 50% 50 Ml Syringe) 25 - 50 ml IV UD PRN; Protocol PRN Reason: Hypoglycemia Protocol Stop: 07/25/20 20:00 Fish Oil ([place]-3 (Purified Fish Oil) 1 Gm Cap) 1 gm PO BID [facility] Stop: 07/25/20 20:59 Last Admin: 06/28/20 09:07 Dose: 1 gm Documented by: Glucagon (Glucagon For Inj 1 Mg Vial) 1 mg SQ UD PRN; Protocol PRN Reason: Hypoglycemia Protocol Stop: 07/25/20 20:00 Glucose (Glucose 10 Tabs/Tube) 4 - 8 tabs PO UD PRN; Protocol PRN Reason: Hypoglycemia Protocol Stop: 07/25/20 20:00 Glucose (Glucose 40% Gel 15 Gm Tube) 15 - 30 gm PO UD PRN; Protocol PRN Reason: Hypoglycemia Protocol Stop: 07/25/20 20:00 Piperacillin Sod/Tazobactam (Sod 3.375 gm/ Dextrose) 115 mls @ 28.75 mls/hr IV Q8H [facility]; Protocol Stop: 08/06/20 19:59 Last Infusion: 06/28/20 06:10 Dose: Infused Documented by: Vancomycin HCl 1,250 mg/ (Sodium Chloride) 275 mls @ 125 mls/hr IV Q12H [facility] Stop: 08/06/20 17:59 Last Infusion: 06/28/20 08:14 Dose: Infused Documented by: Insulin Aspart (Insulin Aspart 100 Units/Ml 3 Ml Pen) 0 units SC ACHS [facility] Stop: 07/25/20 20:59 Last Admin: 06/28/20 09:07 Dose: 5 units Documented by: Insulin Glargine (Insulin Glargine Solostar 100 Units/Ml 3 Ml Pen) 30 units SC HS [facility] Stop: 07/25/20 20:59 Last Admin: 06/27/20 20:40 Dose: 30 units Documented by: Isosorbide Mononitrate (Isosorbide [place] Extended Rel 30 Mg Tabcr) 30 mg PO DAILY [facility] Stop: 07/26/20 08:59 Last Admin: 06/28/20 09:07 Dose: 30 mg Documented by: Metoprolol Succinate (Metoprolol Succ 50mg Ext Rel Tab) 100 mg PO DAILY [facility] Stop: 07/26/20 08:59 Last Admin: 06/28/20 09:07 Dose: 100 mg Documented by: Miscellaneous (Carbohydrates For Hypoglycemia ) 15 - 30 gm PO UD PRN PRN Reason: Hypoglycemia Protocol Stop: 07/25/20 20:00 Miscellaneous Information (Vancomycin Consult Active) 1 ea N/A UD PRN PRN Reason: Consult Stop: 07/25/20 16:42 Miscellaneous Information (Piperacill/Tazobac Consult Active) 1 ea N/A UD PRN PRN Reason: Consult Stop: 07/25/20 20:00 Polyethylene Glycol (Polyethylene (Miralax) 17 Gm Pack) 17 gm PO DAILY [facility] Stop: 07/27/20 17:29 Last Admin: 06/28/20 09:07 Dose: 17 gm Documented by: (1) Osteomyelitis Laterality: left Osteomyelitis location: foot Osteomyelitis type: unspecified type Qualified Code(s): M86.9 - Osteomyelitis, unspecified
--- NOTE | 2020-06-28 10:32 | Discharge Summary ---
Date of Service June 28, 2020 Admission HPI Per Admitting Provider 75-year-old male with PMH DM type II, dyslipidemia, PVD, history of recurrent osteomyelitis, atrial fibrillation, CAD, and other problems listed below who presents to the ED for evaluation of left foot infection. Patient has history of recurrent osteomyelitis of the left foot and underwent left great toe hardware removal with first metatarsal revision MTP fusion, plantar flexion osteotomy by Dr. Saavedra ([facility]) on 12/07/2019. Wound had completely healed. Patient reports that after golfing 4 days ago, he noted some pain to the medial aspect of the left great toe. There has been increasing redness and development of a small ulcer. Patient reports some minimal purulent drainage. Reports chills yesterday however no fever. Also was having diarrhea, denies abdominal pain and vomiting. No chest pain or shortness of breath. Denies lightheadedness, dizziness, diaphoresis, syncopal events. No urinary symptoms. In the ED, left foot x-ray suggest osteomyelitis of the left first metatarsal. ESR and CRP are elevated. Patient is afebrile, no leukocytosis. He was given IV cefepime, IV Flagyl, IV Vanco, IV Dilaudid, IV Zofran, IVF. Admission Exam Per Admitting Provider Constitutional: WD/WN, vitals as above Eyes: PERRL, conjunctivae normal, anicteric sclerae ENMT: external ear and nose normal, oropharynx normal Respiratory: normal respiratory effort, lungs clear to auscultation Cardiovascular: Rate/Rhythm: regular rate and regular rhythm Vessels: normal peripheral pulses Extremities: no edema Gastrointestinal (Abdomen): normal bowel sounds, soft, nontender, no hepatosplenomegaly Musculoskeletal: no cyanosis or clubbing, extremities motor strength 5/5 Skin: no rashes, warm and dry Erythema noted over left great toe extending partially over the dorsal aspect, small scabbed over wound noted to lateral aspect of left great toe Neurologic: PERRL, EOMI, accommodation nl, no face palsy, no dysarthria Psychiatric: A+Ox3, euthymic affect Principal Diagnosis Postoperative wound infection, concern for osteomyelitis Discharge Exam Constitutional: WD/WN, vitals as above Eyes: PERRL, conjunctivae normal, anicteric sclerae ENMT: external ear and nose normal, oropharynx normal Respiratory: normal respiratory effort, lungs clear to auscultation Cardiovascular: Rate/Rhythm: regular rate and regular rhythm Vessels: normal peripheral pulses Extremities: no edema Gastrointestinal (Abdomen): normal bowel sounds, soft, nontender to palpation Musculoskeletal: no cyanosis or clubbing, extremities motor strength 5/5 Skin: no rashes, warm and dry mild Erythema noted over left great toe extending partially over the dorsal aspect (improved), very small wound noted to lateral aspect of left great toe, no drainage noted Neurologic: PERRL, EOMI, accommodation nl, no face palsy, no dysarthria Psychiatric: A+Ox3, euthymic affect Discharge Data Allergies Allergy/AdvReac Type Severity Reaction Status Date / Time No Known Allergies Allergy Verified 06/25/20 19:00 Consultations 06/25/20 18:19 ED Decision to Admit Stat Toe Xray 06/25/20 FINDINGS: There is soft tissue swelling of the left first toe. Revision fusion of the left first metatarsophalangeal joint is noted. There is incomplete bony fusion. Several adjacent bone fragments are present. There is lucency adjacent to one of the screws. A portion of one of the screws may be absent. Sclerosis is noted. No acute fracture is noted. IMPRESSION: 1. Status post left metatarsophalangeal joint effusion with revision since prior CT. Incomplete bony fusion. 2. Left first toe soft tissue swelling. Lucency and sclerosis, most pronounced at the level of the distal first metatarsal, adjacent to one of the screws could reflect loosening or osteomyelitis. Foot Xray 06/25/20 FINDINGS: Tarsometatarsal joints are intact. Note is made of revision fusion of the left first metatarsophalangeal joint since CT of May 09, 2019. 2 screws fixate the metatarsophalangeal joint. There is incomplete bony fusion. There is lucency adjacent to one of the screws. Sclerosis is noted. Several small bone fragments project along the dorsal aspect of the first metatarsophalangeal joint. IMPRESSION: Status post left first metatarsophalangeal joint fusion. Incomplete bony fusion. Lucency and sclerosis adjacent to one of the screws favors loosening although osteomyelitis could appear similar. Hospital Course (1) Osteomyelitis: Concern for osteomyelitis/postsurgical infection -Patient presenting from home for evaluation of left foot erythema and wound. History of nonhealing wound on the left foot, s/p multiple interventions, most recent being 11/2019. Follows with Dr. Saavedra at [facility]. -In the ED, x-ray suggestive of osteomyelitis involving left first metata rsophalangeal joint -Elevated ESR and CRP; afebrile, no leukocytosis, does not appear septic -ESR admission 23, down to 19, CRP on admission 6.8 down to 5.1 -ED physician spoke with Dr. Butler (covering fo Dr. Saavedra) -recommends oral antibiotics and outpatient follow-up with Dr. Saavedra, the appointment was scheduled for July 03, at 1 PM -admitted for IV antibiotics for a couple of days, plan to discharge on p.o. with close follow-up with Dr. Saavedra -Wound culture 11/2019 grew MSSA -Blood culture and wound culture from current admission (06/25) -negative wound culture and blood culture negative for 48 hours -discussed with the patient that if blood cultures negative for 48 hours, plan to DC on p.o. antibiotics and follow-up with Dr. Saavedra, patient in agreement -S/p Vanco, cefepime, Flagyl in the ED. Continued with Vanco and Zosyn while inpt (2) Tachy-noman syndrome: (3) Pacemaker: (4) Atrial fibrillation: -No acute issues -Rate controlled on metoprolol, will continue -Anticoagulated on Eliquis, will continue (5) CAD (coronary artery disease): -No reports of chest pain -Continue aspirin, statin, beta-annika, nitrate (6) Type 2 diabetes mellitus: -Hgb A1c 6.8 03/2020 -Lantus and NovoLog per protocol while hospitalized (7) DVT prophylaxis: -Anticoagulated on Eliquis Disposition: Discharge home with close follow-up with Dr. Saavedra, appointment scheduled for July 03 at 1 PM Total Time Total Time Spent Total Time Spent (In Minutes): 35 Total Time Includes: Examination of the Patient, Discharge Planning, Medication Reconciliation and Communication With Other Providers Discharge Plan Discharge Items Patient Disposition: Home - Self-Care Reason For Visit: OSTEOMYELITIS Discharge Diagnosis: Postoperative wound infection, concern for osteomyelitis Activity: Per Instructions section Non-emergency contact: Primary Care Provider and Surgeon Call non-emergency contact if: you have any medication questions and your symptoms worsen Follow-up/Referrals: Landen Macario DO [Primary Care Provider] - Amilcar Saavedra MD [Staff Physician] - 07/03/20 1:00 pm (Date & Time 07/03/2020 1:00 PM Provider Amilcar Saavedra MD Department Orthopaedics [facility] ) Diet: Carb Consistent or DM2 and Heart Healthy Addtl Attending Provider Instructions: Make sure to follow-up with your orthopedic surgeon, Dr. Saavedra, on July 03 at 1 PM. In the meantime take antibiotic, doxycycline, as prescribed. Try not to put too much pressure on your left foot and avoid tight shoes. Pending Studies at Discharge: Yes Stand-Alone Forms: My [facility], Smoking Cessation Medications and DC Order Prescriptions: New doxycycline hyclate 100 mg capsule 100 mg PO BID 5 Days Qty: 10 RF: 0 polyethylene glycol 3350 [Miralax] 17 gram Powder In Packet 17 g PO DAILY 5 Days RF: 0 bisacodyl 5 mg Tablet,Delayed Release (Dr/Ec) 5 mg PO DAILY PRN (Reason: constipation) 5 Days RF: 0 Continued acetaminophen [Tylenol Arthritis Pain] 650 mg tablet extended release 650 mg PO Q8H PRN (Reason: Pain) RF: 0 aspirin 81 mg tablet,delayed release (DR/EC) 81 mg PO DAILY RF: 0 omega-3 fatty acids [Fish Oil Concentrate] 1,000 mg capsule 1,000 mg PO BID RF: 0 Victoza 2-Jed 0.6 mg/0.1 mL (18 mg/3 mL) pen injector 1.2 mg SQ DAILY RF: 0 metformin 1,000 mg tablet 1,000 mg PO BIDM RF: 0 atorvastatin 40 mg tablet 40 mg PO DAILY RF: 0 isosorbide mononitrate 30 mg tablet extended release 24 hr 30 mg PO DAILY RF: 0 metoprolol succinate 100 mg tablet extended release 24 hr 100 mg PO DAILY RF: 0 lisinopril 10 mg tablet 10 mg PO DAILY RF: 0 Basaglar KwikPen U-100 Insulin 100 unit/mL (3 mL) insulin pen 40 unit SUBCUT QPM RF: 0 Eliquis 5 mg tablet 5 mg PO BID RF: 0 Discharge Orders: Discharge Order (Routine); Ordered 06/28/20 Ordered By: Fracisco Hwang Admission Data Admit Date/Time: 06/25/20 18:41 Attending Provider: Fracisco Hwang Admit Provider: Josh Canales Primary Care Provider: Landen Macario Other Providers: Josh Canales
== END 2020-06-28 11:35 | disposition home or self-care (01) ==
LOC: ED 16:04 → 3W 18:41 → SUATTDRO 18:41 → INTOOBSV 18:41 → 3W 19:18

== ENCOUNTER 2021-10-01 15:14 | Inpatient (IN) ==
--- NOTE | 2021-10-01 15:47 | XRay Report ---
XR chest 1V portable HISTORY: Atypical Chest Pain COMPARISON: Chest 04/24/2020. FINDINGS: No pneumothorax. Small right pleural effusion. This is new from the prior study. The heart remains enlarged. Left-sided dual-chamber pacemaker. Poststernotomy changes. Perihilar interstitial/v ascular thickening has progressed. This is consistent with mild pulmonary edema. Small linear scarlik e density within the right upper lobe remains unchanged. No new focal lung consolidations. IMPRESSION: Interval development of mild interstitial pulmonary edema and a small right pleural effusion. ACT 112: Negative or not required by law. Electronically signed by: Sloan Dang M.D. 10/01/2021 3:45 PM
--- NOTE | 2021-10-01 17:01 | Cardiology Consultation ---
Date of Consultation October 01, 2021 Assessment & Plan (1) Acute heart failure with preserved ejection fraction: (2) Paroxysmal atrial fibrillation: (3) Tachy-noman syndrome: (4) Peripheral vascular disease of lower extremity: (5) Multiple myeloma: 76-year-old patient admitted with acute heart failure with preserved ejection fraction. Recommend initiation of IV diuretic therapy when baseline lab studies available, likely Lasix 40 mg x 1 now then twice daily. Discontinue Multaq which is contraindicated in the setting of heart failure. Consider addition of alternative antiarrhythmic therapy (i.e. amiodarone) during hospitalization. Continue telemetry monitoring and oral anticoagulation with Eliquis. Monitor daily weight, GFR, electrolytes, and fluid balance. Repeat resting 2D transthoracic echocardiogram in a.m. Continue lisinopril, Toprol-XL (100 mg in a.m., 50 mg in the evening), isosorbide monohydrate, and atorvastatin as previously ordered. History of Present Illness Reason for Consultation: CHF, PAF History of Present Illness 76-year-old patient with history of coronary artery disease, coronary artery bypass grafting x3 in 1993, peripheral vascular disease, tachybradycardia syndrome status post pacemaker implantation, and recent diagnosis of multiple myeloma with lytic bone lesions present to the ER with progressive dyspnea. Patient recently treated with Revlimid, Velcade, and Decadron. He also received 1 unit of packed red blood cells yesterday for treatment of anemia. Notes progressive edema, weight gain, abdominal bloating, and shortness of breath over the past 5-7 days. Approximately 1 week ago, he was prescribed Multaq due to symptomatic paroxysmal atrial fibrillation. Denies any palpitations currently. No chest discomfort or heaviness. Reports orthopnea without PND. No lightheadedness, dizziness, syncope, or near syncope. Cardiovascular problem list: 1. Atherosclerotic coronary disease, status post coronary bypass grafting 1993 with BISHOP to LAD, gastroepiploic artery to right posterior descending artery, and left radial arterial graft to obtuse marginal branch vessel. 2. Stable class 1-2 angina pectoris. 3. Atherosclerotic peripheral vascular disease with claudication. 4. Known left popliteal occlusion which would require bypass per most recent vascular surgical note 08/2016 5. Paroxysmal atrial fibrillation with tachy-noman syndrome status post permanent pacemaker implantation April 23, 2020. 6. Hyperlipidemia. 7. Diabetes mellitus. Allergies Allergy/AdvReac Type Severity Reaction Status Date / Time No Known Allergies Allergy Verified 09/30/21 11:18 Home Medications Medication Instructions Recorded Confirmed Type acetaminophen 650 mg 650 mg PO Q8H PRN tab 09/28/19 10/01/21 History tablet,extended release (Tylenol Arthritis Pain) aspirin 81 mg tablet,delayed 81 mg PO DAILY 09/28/19 10/01/21 History release omega-3 fatty acids 1,000 mg 1,000 mg PO BID cap 09/28/19 10/01/21 History capsule (Fish Oil Concentrate) apixaban 5 mg tablet (Eliquis) 5 mg PO BID 06/25/20 10/01/21 History atorvastatin 40 mg tablet 40 mg PO DAILY 06/25/20 10/01/21 History insulin glargine 100 unit/mL (3 40 unit SUBCUT QPM 06/25/20 10/01/21 History mL) subcutaneous pen (Basaglar KwikPen U-100 Insulin) isosorbide mononitrate 30 mg 30 mg PO DAILY 06/25/20 10/01/21 History tablet,extended release 24 hr lisinopril 10 mg tablet 10 mg PO DAILY 06/25/20 10/01/21 History metoprolol succinate 100 mg 100 mg PO DAILY 06/25/20 10/01/21 History tablet,extended release 24 hr doxycycline hyclate 100 mg tablet 25 mg PO BID 09/30/21 10/01/21 History liraglutide 0.6 mg/0.1 mL (18 mg/3 1.2 mg SUBCUT DAILY 09/30/21 10/01/21 History mL) subcutaneous pen injector (Vendobots 2-Jed) ondansetron 8 mg disintegrating 8 mg PO Q8H PRN 09/30/21 10/01/21 History tablet oxycodone-acetaminophen 5 mg-325 1 tab PO Q4H PRN 09/30/21 10/01/21 History mg tablet (Percocet) prochlorperazine maleate 10 mg 10 mg PO Q6H PRN 09/30/21 10/01/21 History tablet tramadol 50 mg tablet 50 mg PO Q6H PRN 09/30/21 10/01/21 History trazodone 50 mg tablet 50 mg PO HS PRN 09/30/21 10/01/21 History acyclovir 400 mg tablet 400 mg PO BID 10/01/21 10/01/21 History dronedarone 400 mg tablet (Multaq) 400 mg PO BIDM 10/01/21 10/01/21 History lenalidomide 25 mg capsule 25 mg PO DAILY 10/01/21 10/01/21 History (Revlimid) metoprolol succinate 50 mg 50 mg PO HS 10/01/21 10/01/21 History tablet,extended release 24 hr Patient History Medical History Atrial fibrillation continue eliquis and high dose metoprolol CAD (coronary artery disease) Hallux rigidus of left foot "S/p multiple surgeries" History of basal cell carcinoma History of melanoma in situ History of pilonidal cyst HLD (hyperlipidemia) Pacemaker Peripheral vascular disease of lower extremity Tachy-noman syndrome Pt admitted for elective ppm due to TBS; underwent procedure without any complications; monitored overnight and discharged home. Type 2 diabetes mellitus Surgical History History of bone marrow biopsy History of cataract surgery History of foot surgery S/P CABG x 4 S/P Mohs surgery for basal cell carcinoma Family History Mother Lymphoma Social History Smoking Status: Former smoker Tobacco Type: Cigars Cigarettes Per Day: 1-2 times a month; Second Hand Exposure: No; Hx Alcohol Use: No Hx Substance Use: No Preferred Language: [place] Communication Ability: Effective Dish Technician Required: No Beliefs That Will Affect Care: None Current Living Situation: Spouse Other Information That Helps Us Care for You: No Feels Safe at Home: Yes Safety Concerns: Feels Safe At This Time Assistive Devices: None Review of Systems Review of Systems: All systems reviewed & are unremarkable except as noted in Subjective Physical Exam Constitutional: well developed, well nourished and + ill appearing; no acute distress Respiratory: normal respiratory effort; no respiratory distress, no labored breathing and no retractions Auscultation: + rales (Bases bilateral); no rhonchi and no wheezes Cardiovascular: Rate/Rhythm: regular rate and regular rhythm Heart Sounds: normal S1 and normal S2; no murmur Vessels: + JVD and radial pulses present; no carotid bruit Extremities: + edema (2+ bilateral pedal and ankle edema) Gastrointestinal (Abdomen): Inspection/Auscultation: abdomen normal to inspection and normal bowel sounds; abdomen not distended Percussion/Palpation: abdomen soft; abdomen nontender, no guarding and abdomen not rigid Neurologic: CN's II-XI intact bilaterally; no focal motor deficits Motor/Sensory: no tremor Psychiatric: Orientation: alert and oriented x 3 Results & Data ([facility]) Vital Signs (Past 12 Hours) Vital Signs Temp Pulse Resp BP Pulse Ox 10/01/21 15:29 36.9 C 74 19 137/87 92 Diagnostic Findings Lexiscan nuclear stress test report March 12, 2021: Combined low intensity exercise/Lexiscan myocardial perfusion imaging study reveals a small sized fixed apical perfusion defect suggestive of possible scar in this territory without superimposed ischemia. Gated SPECT imaging reveals apical hypokinesis. The left ventricular ejection fraction was calculated to be 56%. Compared to the images obtained at the time of the prior study dated 03/31/2019, a subtle fixed apical perfusion defect was present that time, that is better visualized on the present study.
[2021-10-01 17:11] LABS: INR 1.1 (0.9-1.1); Partial Thromboplastin Time 26.8 Seconds (21.0-31.0); Prothrombin Time 11.4 Seconds (9.0-12.0)
[2021-10-01 17:16] LABS: BUN Creatinine Ratio 22.3 (10-20); Calcium 7.5 mg/dl (8.5-10.1); Creatinine Clr Calc Pharmacy 45.3 ml/min; Est GFR (Non-African American) 44.9 ml/min
[2021-10-01 17:22] LABS: Hematocrit (blood only) 30.5 % (42-52); Mean Corpuscular Hemoglobin 32.9 pg (25-34); Mean Corpuscular Hgb Conc 32.8 g/dL (32-36); Mean Corpuscular Volume 100.3 fL (80-100); Mean Platelet Volume 11.4 fL (7.4-10.4); Platelet Count 93 K/uL (130-400); RDW Coefficient of Variation 16.3 % (11.5-14.5); RDW Standard Deviation 58.6 fL (36.4-46.3); Red Blood Count 3.04 M/uL (4.7-6.1); White Blood Count 4.44 K/uL (4.8-10.8)
[2021-10-01 17:23] LABS: Eosinophils # (auto) 0.05 K/uL (0-0.5); Eosinophils % (auto) 1.1 %; Immature Granulocytes # (auto) 0.06 K/uL (0.00-0.02); Immature Granulocytes % (auto) 1.4 %; Lymphocytes # (auto) 0.28 K/uL (1.2-3.4); Lymphocytes % (auto) 6.3 %; Monocytes # (auto) 0.39 K/uL (0.11-0.59); Monocytes % (auto) 8.8 %; Neutrophils # (auto) 3.66 K/uL (1.4-6.5); Neutrophils % (auto) 82.4 %; Platelet Estimate Decreased (Normal)
[2021-10-01 17:24] LABS: Albumin Globulin Ratio 0.9 (0.9-2); Bilirubin,Total 0.9 mg/dl (0.2-1); Globulin 3.4 gm/dl (2.5-4.0); Total Protein 6.4 gm/dl (6.4-8.2); Troponin I 0.063 ng/ml (0-0.045)
[2021-10-01] MEDS ORDERED: FUROSEMIDE 40 MG/4 ML VIAL IV ONE (17:35)
[2021-10-01 18:14] LABS: Influenza A virus by PCR Negative (Neg); Influenza B virus by PCR Negative (Neg); RSV by PCR Negative (Neg); SARS CoV2 RNA(COVID-19) InHosp NEGATIVE (Negative)
--- NOTE | 2021-10-01 18:14 | History & Physical Report ---
Date of Service October 01, 2021 Assessment & Plan (1) Acute heart failure with preserved ejection fraction: (2) Elevated troponin: (3) Acute worsening of stage 3 chronic kidney disease: (4) Paroxysmal atrial fibrillation: (5) Type 2 diabetes mellitus: (6) Multiple myeloma: Plan: This is a 76-year-old male who has significant past medical history of CAD with history of CABG times 3 in 1993, TBS status post PPM, paroxysmal Atrial fibrillation, peripheral vascular disease with history of left popliteal occlusion status post bypass in 2016, T2DM, HTN, HLD and recent diagnosis of multiple myeloma with lytic bone lesions who presents to ER secondary to shor tness of breath with exertion x1 week. CXR: IMPRESSION: Interval development of mild interstitial pulmonary edema and a small right pleural effusion. Probnp 3137, trop 0.063 Acute CHF with preserved EF Elevated troponin/NSTEMI admit to PCU cardiology consulted and already evaluated the pt, appreciate their recs STOP multaq, continue metoprolol, lisinopril, imdur and statin cardiology to consider other agent for rhythm control for paf Lasix 40mg IV x 1 in ED; then 40mg IV BID daily weights, strict I&O cont to monitor on tele obtain echocardiogram, cycle trops pt w/o complaint of CP Acute/Chronic CKD 3 bun/cr 33/1.5 baseline cr 1.5 likely in setting of acute heart failure monitor renal fxn closely with diuresis avoid nephrotoxic agents continue lisinopril for now, but hold if renal function worsens PAF TBS s/p PPM continue metoprolol, stop multaq continue eliquis CAD s/p CABG 1993 continue lisinopril, imdur, metoprolol, asa T2DM obtain a1c in a.m a1c controlled as outpt hold victoza Lantus/novolog per protocol glycemic pharmacy consult Multiple Myeloma recent dx, currently undergoing tx with Velcade, Revlimid and dexamethasone currently off revlimid for 7 days continue doxycycline and acyclovir last tx 09/29 Pancytopenia 2/2 to MM s/p 1 unit PRBC 09/30/21 plt 93, h/h 10.0 and 30.5 monitor, no s/sx of bleeding Dvt ppx: contine eliquis Dispo: PCU PCP: Dr. Landen Macario FULL CODE Pt was seen and examined in collaboration with Dr. Clifton, please see addendum. History of Present Illness Chief Complaint: SOB x 1 week. Primary Care Provider: Landen Macario, This is a 76-year-old male who has significant past medical history of CAD with history of CABG times 3 in 1993, TBS status post PPM, paroxysmal Atrial fibrillation, peripheral vascular disease with history of left popliteal occlusion status post bypass in 2016, T2DM, HTN, HLD and recent diagnosis of multiple myeloma with lytic bone lesions who presents to ER secondary to shortness of breath with exertion x1 week. Patient complains of increasing shortness of breath with exertion x1 week, shortness of breath at rest, substernal chest tightness, increasing lower extremity edema, bloating and a 10 pound weight gain. He denies any recent fever, chills, sweats, lightheadedness, dizziness, palpitations, cough, hemoptysis, URI symptoms, nausea, vomiting, abdominal pain, increased urgency or frequency with urination, melena or hematochezia. He does note a decrease in urinary frequency. He further denies any PND orthopnea. He has been compliant with his medications. He follows with [facility] cardiology. Of significance patient did undergo 1 unit of packed red blood cell transfusion yesterday due to anemia. Of significance he was recently diagnosed with multiple myeloma and is currently undergoing chemotherapy with Revlimid, Velcade and Decadron. His last treatment was on 09/29/2021. Allergies Allergy/AdvReac Type Severity Reaction Status Date / Time No Known Allergies Allergy Verified 09/30/21 11:18 Home Medications Medication Instructions Recorded Confirmed Type acetaminophen 650 mg 650 mg PO Q8H PRN tab 09/28/19 10/01/21 History tablet,extended release (Tylenol Arthritis Pain) aspirin 81 mg tablet,delayed 81 mg PO DAILY 09/28/19 10/01/21 History release omega-3 fatty acids 1,000 mg 1,000 mg PO BID cap 09/28/19 10/01/21 History capsule (Fish Oil Concentrate) apixaban 5 mg tablet (Eliquis) 5 mg PO BID 06/25/20 10/01/21 History atorvastatin 40 mg tablet 40 mg PO DAILY 06/25/20 10/01/21 History insulin glargine 100 unit/mL (3 40 unit SUBCUT QPM 06/25/20 10/01/21 History mL) subcutaneous pen (Basaglar KwikPen U-100 Insulin) isosorbide mononitrate 30 mg 30 mg PO DAILY 06/25/20 10/01/21 History tablet,extended release 24 hr lisinopril 10 mg tablet 10 mg PO DAILY 06/25/20 10/01/21 History metoprolol succinate 100 mg 100 mg PO DAILY 06/25/20 10/01/21 History tablet,extended release 24 hr doxycycline hyclate 100 mg tablet 25 mg PO BID 09/30/21 10/01/21 History liraglutide 0.6 mg/0.1 mL (18 mg/3 1.2 mg SUBCUT DAILY 09/30/21 10/01/21 History mL) subcutaneous pen injector (TappnGotoza 2-Jed) ondansetron 8 mg disintegrating 8 mg PO Q8H PRN 09/30/21 10/01/21 History tablet oxycodone-acetaminophen 5 mg-325 1 tab PO Q4H PRN 09/30/21 10/01/21 History mg tablet (Percocet) prochlorperazine maleate 10 mg 10 mg PO Q6H PRN 09/30/21 10/01/21 History tablet tramadol 50 mg tablet 50 mg PO Q6H PRN 09/30/21 10/01/21 History trazodone 50 mg tablet 50 mg PO HS PRN 09/30/21 10/01/21 History acyclovir 400 mg tablet 400 mg PO BID 10/01/21 10/01/21 History dronedarone 400 mg tablet (Multaq) 400 mg PO BIDM 10/01/21 10/01/21 History lenalidomide 25 mg capsule 25 mg PO DAILY 10/01/21 10/01/21 History (Revlimid) metoprolol succinate 50 mg 50 mg PO HS 10/01/21 10/01/21 History tablet,extended release 24 hr Past Med/Surg History Medical History Atrial fibrillation continue eliquis and high dose metoprolol CAD (coronary artery disease) Hallux rigidus of left foot "S/p multiple surgeries" History of basal cell carcinoma History of melanoma in situ History of pilonidal cyst HLD (hyperlipidemia) Pacemaker Peripheral vascular disease of lower extremity Tachy-noman syndrome Pt admitted for elective ppm due to TBS; underwent procedure without any complications; monitored overnight and discharged home. Type 2 diabetes mellitus Surgical History History of bone marrow biopsy History of cataract surgery History of foot surgery S/P CABG x 4 S/P Mohs surgery for basal cell carcinoma Family History Mother Lymphoma Social History Smoking Status: Former smoker Tobacco Type: Cigars Cigarettes Per Day: 1-2 times a month; Second Hand Exposure: No; Hx Alcohol Use: No Hx Substance Use: No Preferred Language: Romanian Communication Ability: Effective Reheater Required: No Beliefs That Will Affect Care: None Current Living Situation: Spouse Other Information That Helps Us Care for You: No Feels Safe at Home: Yes Safety Concerns: Feels Safe At This Time Assistive Devices: None Review of Systems Review of Systems: All systems reviewed & are unremarkable except as noted in HPI & below Physical Exam Physical Exam: Constitutional: WD/WN, ill appearing, vitals as above, NAD, sitting up in bed, pleasant, conversing easily Head: Normocephalic, Atraumatic Eyes: PERRL, conjunctivae normal, anicteric sclerae ENMT: external ear and nose normal, oropharynx normal Neck: trachea midline, no thyromegaly normal visual inspection Respiratory: normal respiratory effort, lungs clear to auscultation, bibasilar rales b/l, no wheeze or rhonchi. Normal insp/exp effort, no accessory muscle use Cardiovascular: RRR, no murmur, b/l lower extremity edema +2 Vessels: + JVD or carotid bruit Chest: normal inspection of chest Abdomen: normal bowel sounds, soft, nontender, no hepatosplenomegaly Musculoskeletal: no cyanosis or clubbing, extremities motor strength 5/5 Skin: no rashes, warm and dry normal turgor Neurologic: PERRL, EOMI, accommodation nl, no face palsy, no dysarthria CN's II-XI intact bilaterally and moves all extremities Psychiatric: A+Ox3, euthymic affect Lymphatic: no cervical or axillary lymphadenopathy : deferred Results & Data Results & Data ([facility]) Vital Signs (Past 12 Hours) Vital Signs Temp Pulse Resp BP Pulse Ox 10/01/21 15:29 36.9 C 74 19 137/87 92 Diagnostic Findings Chest X-Ray 10/01/21 15:32 XR chest 1V portable HISTORY: Atypical Chest Pain COMPARISON: Chest 04/24/2020. FINDINGS: No pneumothorax. Small right pleural effusion. This is new from the prior study. The heart remains enlarged. Left-sided dual-chamber pacemaker. Poststernotomy changes. Perihilar interstitial/vascular thickening has progressed. This is consistent with mild pulmonary edema. Small linear scarlike density within the right upper lobe remains unchanged. No new focal lung consolidations. IMPRESSION: Interval development of mild interstitial pulmonary edema and a small right pleural effusion. ACT 112: Negative or not required by law. Electronically signed by: Sloan Dang M.D. 10/01/2021 3:45 PM Medications Administered Medication List Discontinued Medications Furosemide (Furosemide 40 Mg/4 Ml Vial) 40 mg IV ONE ONE Stop: 10/01/21 17:36 Last Admin: 10/01/21 17:46 Dose: 40 mg Documented by: [id number] ECG Rate (beats per minute): 75 Findings: + nonspecific-ST abn and + paced rhythm COVID-19 Results Results COVID-19 Adm Lab Results: RBC 3.04 M/uL (4.7-6.1) L 10/01/21 WBC 4.44 K/uL (4.8-10.8) L 10/01/21 Hgb 10.0 g/dL (14.0-18.0) L 10/01/21 Hct 30.5 % (42-52) L 10/01/21 Plt Count 93 K/uL (130-400) L 10/01/21 Neutrophils (%) (Auto) 82.4 % 10/01/21 Lymphocytes (%) (Auto) 6.3 % 10/01/21 Monocytes # (Auto) 0.39 K/uL (0.11-0.59) 10/01/21 Eosinophils # (Auto) 0.05 K/uL (0-0.5) 10/01/21 Immature Granulocyte % (Auto) 1.4 % 10/01/21 Neutrophils # (Auto) 3.66 K/uL (1.4-6.5) 10/01/21 Lymphocytes # (Auto) 0.28 K/uL (1.2-3.4) L 10/01/21 Monocytes # (Auto) 0.39 K/uL (0.11-0.59) 10/01/21 Eosinophils # (Auto) 0.05 K/uL (0-0.5) 10/01/21 Basophils # (Auto) 0.00 K/uL (0-0.2) 10/01/21 Immature Granulocyte # (Auto) 0.06 K/uL (0.00-0.02) H 10/01/21 Na 139 mmol/L (136-145) 10/01/21 K 5.0 mmol/L (3.5-5.1) 10/01/21 Cl 113 mmol/L (98-107) H 10/01/21 CO2 19 mmol/L (21-32) L 10/01/21 Anion Gap 7.0 (3-11) 10/01/21 BUN 33 mg/dl (7-18) H 10/01/21 Creatinine 1.50 mg/dl (0.6-1.4) H 10/01/21 BUN/Creatinine Ratio 22.3 (10-20) H 10/01/21 Glucose Level 269 mg/dl (70-99) H 10/01/21 Ca 7.5 mg/dl (8.5-10.1) L 10/01/21 Total Bilirubin 0.9 mg/dl (0.2-1) 10/01/21 AST/SGOT 21 U/L (15-37) 10/01/21 ALT/SGPT 53 (12-78) 10/01/21 Alkaline Phosphatase 104 U/L (45-117) 10/01/21 Total Protein 6.4 gm/dl (6.4-8.2) 10/01/21 Albumin 3.0 gm/dl (3.4-5.0) L 10/01/21 Globulin 3.4 gm/dl (2.5-4.0) 10/01/21 Albumin/Globulin Ratio 0.9 (0.9-2) 10/01/21 Troponin I 0.063 ng/ml (0-0.045) H* 10/01/21 GN-Ahp-P-Type Natriuretic Pep 3137 pg/ml (0-900) H 10/01/21 PTT 26.8 Seconds (21.0-31.0) 10/01/21 INR 1.1 (0.9-1.1) 10/01/21 COVID-19 PCR NEGATIVE (Negative) 10/01/21 Influenza Virus Type A (PCR) Negative (Neg) 10/01/21 Influenza Virus Type B (PCR) Negative (Neg) 10/01/21 Chest X-Ray 10/01/21 Code Status & VTE Plan Code Status FULL CODE VTE Prophylaxis Plan VTE Prophylaxis will be ordered: No Supervising Physician Co-Signing Physician Notes I saw this patient with the physician dental front office assistant, I participated in the history, physical, review of systems, and physical exam. I reviewed the medications with the patient and the physician dental front office assistant and helped reconcile the medications. I helped take a detailed family and social history as well. I formulated the assessment and plan personally with the physician dental front office assistant and went over it with the patient. Physical Exam Gen-AAO x 3, NAD, Afebrile Head-NCAT, EOMI, PERRLA, Anicteric Sclera, No Posterior Pharyngeal Erythema Neck-Supple, No JVD, No Thyromegaly, No Masses, No LAD, No Bruits Lungs-+Rales Bilaterally at the bases, No Rhonchi, No Wheezing, No Crepitus Chest-No S4, +S1, +S2, No S3, No Murmurs, No Rubs, No Gallops, No Ectopy Abdomen-Soft, Bowel Sounds Present, Non Tender, Non Distended, No Hepatomegaly, No Splenomegaly, No Palpable Masses, No Rebound, No Rigidity, No Guarding Musculoskeletal-Full Range of Motion Bilaterally, No CVAT Extremities-No Cyanosis, No Clubbing, No Edema Nuero-Cranial Nerves II-XII grossly intact, Motor WNL, DTRs WNL, Strength WNL, Non Focal Psych-Normal Mood
--- NOTE | 2021-10-01 19:02 | Emergency Department Note ---
History of Present Illness General Chief Complaint: Cardiac Assessment Stated Complaint: REFERRED BY , TROUBLE BREATHING, RETAINING FLUID Time Seen by Provider: 10/01/21 16:49 History of Present Illness Provider Complaint: shortness of breath Onset (ago): week(s) (1) Severity: moderate Consistency/Duration: + intermittent and + progressively worsening Maximum Pain Intensity: 4 Relieved By: + rest Exacerbated By: + exertion Context: no recent illness Known history of: congestive heart failure Associated symptoms: + chest congestion; no chest pain, no pain with inspiration, no fever, no cough, no wheezing, no sputum production, no lower extremity pain, no polyuria, no paresthesias, no palpitations, no carpopedal spasm, no hemoptysis, no diaphoresis, no nausea/vomiting, no syncope, no abdominal pain, no rash or no dizziness Home Medications Medication Instructions Recorded Confirmed Type acetaminophen 650 mg 650 mg PO Q8H PRN tab 09/28/19 10/01/21 History tablet,extended release (Tylenol Arthritis Pain) aspirin 81 mg tablet,delayed 81 mg PO DAILY 09/28/19 10/01/21 History release omega-3 fatty acids 1,000 mg 1,000 mg PO BID cap 09/28/19 10/01/21 History capsule (Fish Oil Concentrate) apixaban 5 mg tablet (Eliquis) 5 mg PO BID 06/25/20 10/01/21 History atorvastatin 40 mg tablet 40 mg PO DAILY 06/25/20 10/01/21 History insulin glargine 100 unit/mL (3 40 unit SUBCUT QPM 06/25/20 10/01/21 History mL) subcutaneous pen (Basaglar KwikPen U-100 Insulin) isosorbide mononitrate 30 mg 30 mg PO DAILY 06/25/20 10/01/21 History tablet,extended release 24 hr lisinopril 10 mg tablet 10 mg PO DAILY 06/25/20 10/01/21 History metoprolol succinate 100 mg 100 mg PO DAILY 06/25/20 10/01/21 History tablet,extended release 24 hr doxycycline hyclate 100 mg tablet 25 mg PO BID 09/30/21 10/01/21 History liraglutide 0.6 mg/0.1 mL (18 mg/3 1.2 mg SUBCUT DAILY 09/30/21 10/01/21 History mL) subcutaneous pen injector (Victoza 2-Jed) ondansetron 8 mg disintegrating 8 mg PO Q8H PRN 09/30/21 10/01/21 History tablet oxycodone-acetaminophen 5 mg-325 1 tab PO Q4H PRN 09/30/21 10/01/21 History mg tablet (Percocet) prochlorperazine maleate 10 mg 10 mg PO Q6H PRN 09/30/21 10/01/21 History tablet tramadol 50 mg tablet 50 mg PO Q6H PRN 09/30/21 10/01/21 History trazodone 50 mg tablet 50 mg PO HS PRN 09/30/21 10/01/21 History acyclovir 400 mg tablet 400 mg PO BID 10/01/21 10/01/21 History dronedarone 400 mg tablet (Multaq) 400 mg PO BIDM 10/01/21 10/01/21 History lenalidomide 25 mg capsule 25 mg PO DAILY 10/01/21 10/01/21 History (Revlimid) metoprolol succinate 50 mg 50 mg PO HS 10/01/21 10/01/21 History tablet,extended release 24 hr Allergies Allergy/AdvReac Type Severity Reaction Status Date / Time No Known Allergies Allergy Verified 09/30/21 11:18 Past Med/Surg History Medical History Atrial fibrillation continue eliquis and high dose metoprolol CAD (coronary artery disease) Hallux rigidus of left foot "S/p multiple surgeries" History of basal cell carcinoma History of melanoma in situ History of pilonidal cyst HLD (hyperlipidemia) Pacemaker Peripheral vascular disease of lower extremity Tachy-noman syndrome Pt admitted for elective ppm due to TBS; underwent procedure without any complications; monitored overnight and discharged home. Type 2 diabetes mellitus Surgical History History of bone marrow biopsy History of cataract surgery History of foot surgery S/P CABG x 4 S/P Mohs surgery for basal cell carcinoma Family History Mother Lymphoma Social History Smoking Status: Never smoker Tobacco Type: Cigars Cigarettes Per Day: 1-2 times a month; Second Hand Exposure: No; Hx Alcohol Use: No Hx Substance Use: No Preferred Language: Sinhala Communication Ability: Effective [employer] Photograph Required: No Beliefs That Will Affect Care: None Current Living Situation: Spouse Feels Safe at Home: Yes Assistive Devices: None Review of Systems A total of 10 systems reviewed and were otherwise negative Physical Exam Vital Signs: Vital Signs - 24 hr 10/01/21 15:29 Temperature 36.9 C Temperature Source Temporal Artery Sc an Pulse Rate 74 Respiratory Rate 19 Respiratory Effort / Characteristics Non-Labored Sponta neous Respiratory Depth Normal Respiratory Patter n Regular Blood Pressure 137/87 Blood Pressure Simran n 103 Pulse Oximetry 92 Oxygen Delivery Me thod Room Air Sepsis Recent Feve r Within 48 Hours No Sepsis New/Unexpla ined Change in Men jose Status N/A Sepsis Action Take n by Nursing No Action Required Physical Exam: Physical Exam GENERAL: He is oriented to person, place, and time. He appears well-developed and well-nourished. He does not appear distressed. HENT: Exam performed. - Head: Normocephalic and atraumatic. - Right Ear: External ear normal. No mastoid tenderness. - Left Ear: External ear normal. No mastoid tenderness. - Mouth/Throat: The oropharynx is clear and moist. No trismus in the jaw. No dental abscesses or uvula swelling. No oropharyngeal exudate or tonsillar abscesses. EYES: Conjunctivae and EOM are normal. Pupils are equal, round, and reactive to light. Right eye exhibits no discharge. Left eye exhibits no discharge. No scleral icterus. NECK: Normal range of motion. Neck supple. No JVD present. No spinous process tenderness present. No carotid bruit present. No rigidity. No tracheal deviation and normal range of motion present. No Brudzinski's sign and no Kernig's sign noted. CV: Normal rate, regular rhythm, normal heart sounds and intact distal pulses. Palpable radial pulses bue. PULM/CHEST: Rales bilaterally. ABD: The abdomen is soft. Bowel sounds are normal. He has no distension. No mass is present. There is no tenderness. There is no rebound, no guarding, no De Paz's sign and no tenderness at McBurney's point. Rovsig negative. MUSC/SKEL: 2+ pitting edema of the bilateral lower extremities. LYMPH: No cervical adenopathy. NEURO: He is alert and oriented to person, place, and time. He has normal strength. No cranial nerve deficit or sensory deficit. Coordination and gait normal. GCS eye subscore is 4. GCS verbal subscore is 5. GCS motor subscore is 6. Cerebellar tests wnl. SKIN: Skin is warm and dry. He is not diaphoretic. PSYCH: He has a normal mood and affect. Behavior is normal. Judgment and thought content normal. Course Course 164: The patient was evaluated in room C10. A complete history and physical exa m was performed Cardiac monitoring: An order was placed for continuous cardiac monitoring. The monitor shows a rate of 70 with paced rhythm 1735: Vital signs stable. Labs show an elevated troponin. Patient continues to report no chest pain at this time. proBNP is elevated. Chest x-ray shows cardiomegaly with cephalization. Patient will be treated with Lasix 40 mg IV. Patient be admitted to the [facility] Hospitalist team Dr. Clifton notified. Administered Medications Discontinued Medications Furosemide (Furosemide 40 Mg/4 Ml Vial) 40 mg IV ONE ONE Stop: 10/01/21 17:36 Last Admin: 10/01/21 17:46 Dose: 40 mg Documented by: [id number] Medical Decision Making Laboratory Data Result diagrams: 10/01/21 16:45 10/01/21 16:45 Lab Results 10/01/21 10/01/21 10/01/21 Range/Units 16:45 16:45 16:45 WBC 4.44 L (4.8-10.8) K/uL RBC 3.04 L (4.7-6.1) M/uL Hgb 10.0 L (14.0-18.0) g/dL Hct 30.5 L (42-52) % MCV 100.3 H (80-100) fL MCH 32.9 (25-34) pg MCHC 32.8 (32-36) g/dL RDW Std Deviation 58.6 H (36.4-46.3) fL RDW Coeff of Collin 16.3 H (11.5-14.5) % Plt Count 93 L (130-400) K/uL MPV 11.4 H (7.4-10.4) fL Immature Gran % (Auto) 1.4 % Neut % (Auto) 82.4 % Lymph % (Auto) 6.3 % [place] % (Auto) 8.8 % Eos % (Auto) 1.1 % Baso % (Auto) 0.0 % Neut # (Auto) 3.66 (1.4-6.5) K/uL Lymph # (Auto) 0.28 L (1.2-3.4) K/uL [place] # (Auto) 0.39 (0.11-0.59) K/uL Eos # (Auto) 0.05 (0-0.5) K/uL Baso # (Auto) 0.00 (0-0.2) K/uL Immature Gran # (Auto) 0.06 H (0.00-0.02) K/uL Platelet Estimate Decreased L (Normal) PT 11.4 (9.0-12.0) Seconds INR 1.1 (0.9-1.1) APTT 26.8 (21.0-31.0) Seconds PTT Ratio 1.0 Sodium 139 (136-145) mmol/L Potassium 5.0 (3.5-5.1) mmol/L Chloride 113 H (98-107) mmol/L Carbon Dioxide 19 L (21-32) mmol/L Anion Gap 7.0 (3-11) BUN 33 H (7-18) mg/dl Creatinine 1.50 H (0.6-1.4) mg/dl Est Cr Clr Drug Dosing 45.3 ml/min Est GFR ( Amer) 52.0 ml/min Est GFR (Non-Af Amer) 44.9 ml/min BUN/Creatinine Ratio 22.3 H (10-20) Glucose 269 H (70-99) mg/dl POC Glucose (70-99) mg/dl Calcium 7.5 L (8.5-10.1) mg/dl Total Bilirubin 0.9 (0.2-1) mg/dl AST 21 (15-37) U/L ALT 53 (12-78) Alkaline Phosphatase 104 (45-117) U/L Troponin I 0.063 H* (0-0.045) ng/ml NT-Pro-B Natriuret Pep (0-900) pg/ml Total Protein 6.4 (6.4-8.2) gm/dl Albumin 3.0 L (3.4-5.0) gm/dl Globulin 3.4 (2.5-4.0) gm/dl Albumin/Globulin Ratio 0.9 (0.9-2) SARS-CoV-2 (PCR) (Negative) Influenza Type A (PCR) (Neg) Influenza Type B (PCR) (Neg) RSV (RT-PCR) (Neg) 10/01/21 10/01/21 10/01/21 Range/Units 16:45 17:05 18:41 WBC (4.8-10.8) K/uL RBC (4.7-6.1) M/uL Hgb (14.0-18.0) g/dL Hct (42-52) % MCV (80-100) fL MCH (25-34) pg MCHC (32-36) g/dL RDW Std Deviation (36.4-46.3) fL RDW Coeff of Collin (11.5-14.5) % Plt Count (130-400) K/uL MPV (7.4-10.4) fL Immature Gran % (Auto) % Neut % (Auto) % Lymph % (Auto) % [place] % (Auto) % Eos % (Auto) % Baso % (Auto) % Neut # (Auto) (1.4-6.5) K/uL Lymph # (Auto) (1.2-3.4) K/uL [place] # (Auto) (0.11-0.59) K/uL Eos # (Auto) (0-0.5) K/uL Baso # (Auto) (0-0.2) K/uL Immature Gran # (Auto) (0.00-0.02) K/uL Platelet Estimate (Normal) PT (9.0-12.0) Seconds INR (0.9-1.1) APTT (21.0-31.0) Seconds PTT Ratio Sodium (136-145) mmol/L Potassium (3.5-5.1) mmol/L Chloride (98-107) mmol/L Carbon Dioxide (21-32) mmol/L Anion Gap (3-11) BUN (7-18) mg/dl Creatinine (0.6-1.4) mg/dl Est Cr Clr Drug Dosing ml/min Est GFR ( Amer) ml/min Est GFR (Non-Af Amer) ml/min BUN/Creatinine Ratio (10-20) Glucose (70-99) mg/dl POC Glucose 206 H (70-99) mg/dl Calcium (8.5-10.1) mg/dl Total Bilirubin (0.2-1) mg/dl AST (15-37) U/L ALT (12-78) Alkaline Phosphatase (45-117) U/L Troponin I (0-0.045) ng/ml NT-Pro-B Natriuret Pep 3137 H (0-900) pg/ml Total Protein (6.4-8.2) gm/dl Albumin (3.4-5.0) gm/dl Globulin (2.5-4.0) gm/dl Albumin/Globulin Ratio (0.9-2) SARS-CoV-2 (PCR) NEGATIVE (Negative) Influenza Type A (PCR) Negative (Neg) Influenza Type B (PCR) Negative (Neg) RSV (RT-PCR) Negative (Neg) Imaging Data Radiologist's Impression: Chest X-Ray 10/01/21 15:32 XR chest 1V portable HISTORY: Atypical Chest Pain COMPARISON: Chest 04/24/2020. FINDINGS: No pneumothorax. Small right pleural effusion. This is new from the prior study. The heart remains enlarged. Left-sided dual-chamber pacemaker. Poststernotomy changes. Perihilar interstitial/vascular thickening has progressed. This is consistent with mild pulmonary edema. Small linear scarlike density within the right upper lobe remains unchanged. No new focal lung consolidations. IMPRESSION: Interval development of mild interstitial pulmonary edema and a small right pleural effusion. ACT 112: Negative or not required by law. Electronically signed by: Sloan Dang M.D. 10/01/2021 3:45 PM ECG Data Interpretation: Paced rhythm with a rate of 75. VT 224 QRS 96 QTC 484. No ectopy. No ST e levation. [facility] Narrative 1649: The patient was evaluated in room C10. A complete history and physical exam was performed Cardiac monitoring: An order was placed for continuous cardiac monitoring. The monitor shows a rate of 70 with paced rhythm 1735: Vital signs stable. Labs show an elevated troponin. Patient continues to report no chest pain at this time. proBNP is elevated. Chest x-ray shows cardiomegaly with cephalization. Patient will be treated with Lasix 40 mg IV. Patient be admitted to the [facility] Hospitalist team Dr. Clifton notified. Impression & Plan CHF (congestive heart failure) Discharge Plan Visit Data Chief Complaint: Cardiac Assessment Stated Complaint: REFERRED BY , TROUBLE BREATHING, RETAINING FLUID Discharge Problem: CHF (congestive heart failure) Patient Disposition: Being Evaluated by Hospitalist Forms Stand Alone Forms: My [facility] Prescriptions Prescriptions: No Action acetaminophen [Tylenol Arthritis Pain] 650 mg tablet extended release 650 mg PO Q8H PRN (Reason: Pain) RF: 0 aspirin 81 mg tablet,delayed release (DR/EC) 81 mg PO DAILY RF: 0 omega-3 fatty acids [Fish Oil Concentrate] 1,000 mg capsule 1,000 mg PO BID RF: 0 atorvastatin 40 mg tablet 40 mg PO DAILY RF: 0 isosorbide mononitrate 30 mg tablet extended release 24 hr 30 mg PO DAILY RF: 0 metoprolol succinate 100 mg tablet extended release 24 hr 100 mg PO DAILY RF: 0 lisinopril 10 mg tablet 10 mg PO DAILY RF: 0 Basaglar KwikPen U-100 Insulin 100 unit/mL (3 mL) insulin pen 40 unit SUBCUT QPM RF: 0 Eliquis 5 mg tablet 5 mg PO BID RF: 0 trazodone 50 mg Tablet 50 mg PO HS PRN (Reason: sleep) RF: 0 prochlorperazine maleate 10 mg Tablet 10 mg PO Q6H PRN (Reason: nausea) RF: 0 tramadol 50 mg Tablet 50 mg PO Q6H PRN (Reason: nausea) RF: 0 ondansetron 8 mg Tablet,Disintegrating 8 mg PO Q8H PRN (Reason: Nausea) RF: 0 oxycodone-acetaminophen [Percocet] 5-325 mg Tablet 1 tab PO Q4H PRN (Reason: pain) RF: 0 doxycycline hyclate 100 mg Tablet 25 mg PO BID RF: 0 Victoza 2-Jed 0.6 mg/0.1 mL (18 mg/3 mL) Pen Injector 1.2 mg SUBCUT DAILY RF: 0 metoprolol succinate 50 mg tablet extended release 24 hr 50 mg PO HS RF: 0 acyclovir 400 mg tablet 400 mg PO BID RF: 0 Multaq 400 mg tablet 400 mg PO BIDM RF: 0 Revlimid 25 mg Capsule 25 mg PO DAILY RF: 0 Referrals Referrals: Landen Macario, [Primary Care Provider] -
[2021-10-01] MEDS ORDERED: ONDANSETRON INJ 2 MG/ML 2 ML VIAL IV PRN (20:22)
[2021-10-01] MEDS ORDERED: GLUCAGON FOR INJ 1 MG VIAL SQ PRN (20:22)
[2021-10-01] MEDS ORDERED: PHARMACY GLYCEMIC MGMT CONSULT PRN (20:22)
[2021-10-01] MEDS ORDERED: ALUMINUM/MAGNESIUM SUSP 30 ML UDC PO PRN (20:22)
[2021-10-01] MEDS ORDERED: oxyCODONE/ACETAMINOPHEN 5mg/325mg TAB PO PRN (20:22)
[2021-10-01] MEDS ORDERED: MAGNESIUM HYDROXIDE SUSP 30 ML UDC PO PRN (20:22)
[2021-10-01] MEDS ORDERED: GLUCOSE 10 TABS/TUBE PO PRN (20:22)
[2021-10-01] MEDS ORDERED: GLUCOSE 40% GEL 15 GM TUBE PO PRN (20:22)
[2021-10-01] MEDS ORDERED: DEXTROSE 50% 50 ML SYRINGE IV PRN (20:22)
[2021-10-01] MEDS ORDERED: CARBOHYDRATES FOR HYPOGLYCEMIA PO PRN (20:22)
[2021-10-01] MEDS ORDERED: traZODone HCL 50 MG TAB PO PRN (20:22)
[2021-10-01] MEDS: INSULIN ASPART PER UNIT SC SCH (21:48)
[2021-10-01] MEDS: INSULIN GLARGINE SOLOSTAR 100 UNITS/ML 3 ML PEN SC SCH (21:48)
[2021-10-01] MEDS: ACYCLOVIR 400 MG TAB PO SCH (21:49)
[2021-10-01] MEDS: APIXABAN 5 MG TABLET PO SCH (21:49)
[2021-10-01] MEDS: METOPROLOL SUCC 50MG EXT REL TAB PO SCH (21:50)
[2021-10-01] MEDS: OMEGA-3 (PURIFIED FISH OIL) 1 GM CAP PO SCH (21:50)
[2021-10-01] MEDS: DOXYCYCLINE SUSP 25 MG/5 ML 60ML PO SCH (21:51)
[2021-10-02] MEDS ORDERED: INSULIN ASPART PER UNIT SC ONE (02:00)
[2021-10-02 04:10] LABS: Hematocrit (blood only) 27.8 % (42-52); Hemoglobin 9.1 g/dL (14.0-18.0); Mean Corpuscular Hemoglobin 32.9 pg (25-34); Mean Corpuscular Hgb Conc 32.7 g/dL (32-36); Mean Corpuscular Volume 100.4 fL (80-100); RDW Coefficient of Variation 15.8 % (11.5-14.5); RDW Standard Deviation 57.2 fL (36.4-46.3); Red Blood Count 2.77 M/uL (4.7-6.1); White Blood Count 3.12 K/uL (4.8-10.8)
[2021-10-02 04:16] LABS: Mean Platelet Volume 11.1 fL (7.4-10.4); Platelet Count 79 K/uL (130-400)
[2021-10-02 04:35] LABS: BUN Creatinine Ratio 26.2 (10-20); Calcium 7.3 mg/dl (8.5-10.1); Creatinine Clr Calc Pharmacy 44.1 ml/min; Est GFR (African American) 50.4 ml/min; Est GFR (Non-African American) 43.5 ml/min; Potassium 4.6 mmol/L (3.5-5.1)
[2021-10-02 04:40] LABS: Troponin I 0.028 ng/ml (0-0.045)
[2021-10-02 04:54] LABS: Magnesium 2.3 mg/dl (1.8-2.4)
[2021-10-02] MEDS ORDERED: INSULIN GLARGINE SOLOSTAR 100 UNITS/ML 3 ML PEN SC SCH (08:00)
[2021-10-02] MEDS ORDERED: lisinopril 10 MG TAB PO SCH (09:00)
[2021-10-02 09:14] LABS: Estimated Average Glucose 163 mg/dl; Hemoglobin A1C 7.3 % (4.5-5.6)
[2021-10-02] MEDS: ACYCLOVIR 400 MG TAB PO SCH ×2 (09:18→20:22)
[2021-10-02] MEDS: ASPIRIN 81 MG ECTAB PO SCH (09:19)
[2021-10-02] MEDS: APIXABAN 5 MG TABLET PO SCH (09:19)
[2021-10-02] MEDS: ATORVASTATIN 40 MG TAB PO SCH (09:20)
[2021-10-02] MEDS: DOXYCYCLINE SUSP 25 MG/5 ML 60ML PO SCH ×2 (09:20→20:27)
[2021-10-02] MEDS: OMEGA-3 (PURIFIED FISH OIL) 1 GM CAP PO SCH ×2 (09:21→20:22)
[2021-10-02] MEDS: FUROSEMIDE 40 MG/4 ML VIAL IV SCH ×2 (09:22→18:06)
[2021-10-02] MEDS: ISOSORBIDE MONO EXTENDED REL 30 MG TABCR PO SCH (09:22)
[2021-10-02] MEDS: METOPROLOL SUCC 50MG EXT REL TAB PO SCH ×2 (09:23→20:24)
[2021-10-02] MEDS: INSULIN ASPART PER UNIT SC SCH ×4 (09:47→21:06)
[2021-10-02 09:56] LABS: Appearance Urine Clear (Clear); Bacteria Urine Automated Negative (Negative); Bilirubin Urine Negative (Negative); Blood Urine Negative (Negative); Color Urine Yellow; Glucose Urine UA 1+ (Negative); Ketones Urine Negative (Negative); Leukocyte Esterase Urine Negative (Negative); Nitrite Urine Negative (Negative); Protein Urine Trace (Negative); RBC Urine Automated 0-4 /hpf (0-4); Specific Gravity Urine 1.022 (1.000-1.030); Urobilinogen Urine Negative (Negative)
--- NOTE | 2021-10-02 10:28 | Cardiology Progress Note ---
Date of Service October 02, 2021 Assessment & Plan (1) Acute heart failure with preserved ejection fraction: (2) Acute worsening of stage 3 chronic kidney disease: (3) Thrombocytopenia: (4) Paroxysmal atrial fibrillation: (5) Tachy-noman syndrome: (6) Peripheral vascular disease of lower extremity: (7) Multiple myeloma: Plan: Continue Lasix 40 mg IV every 12 hours. Hold lisinopril due to borderline hypotension and mildly elevated creatinine. Continue metoprolol monitor telemetry. Consider addition of amiodarone during hospitalization to maintain rhythm control. Preliminary review of 2D transthoracic echocardiogram demonstrates mildly reduced LV systolic function with moderate mitral regurgitation. Basal inferior wall motion abnormality unchanged when compared to prior imaging. Pancytopenia secondary to chemotherapy (Revlimid and Velcade). Repeat CBC and BMP in a.m. Hold evening dose of Eliquis tonight pending review of a.m. labs. Admission and Anticipated Discharge Date Admission Date: October 01, 2021 Subjective Patient seen examined the bedside. Feeling better overnight. Diuresed more than 1 L. Borderline hypotensive this morning. Telemetry reveals sinus rhythm, atrial pacing, and AV sequential pacing. Multaq discontinued. Received 1 dose of IV furosemide. Creatinine trending upward. Platelets trending downward today. Denies chest pain or palpitations. Edema improving. Review of Systems Review of Systems: All systems reviewed & are unremarkable except as noted in Subjective Physical Exam Constitutional: well developed, well nourished and + ill appearing; no acute distress Respiratory: normal respiratory effort; no respiratory distress, no labored breathing and no retractions Auscultation: + rales (Bases bilateral); no rhonchi and no wheezes Cardiovascular: Rate/Rhythm: regular rate and regular rhythm Heart Sounds: normal S1 and normal S2; no murmur Vessels: + JVD and radial pulses present; no carotid bruit Extremities: + edema (1+ bilateral pedal and ankle edema) Gastrointestinal (Abdomen): Inspection/Auscultation: abdomen normal to inspection and normal bowel sounds; abdomen not distended Percussion/Palpation: abdomen soft; abdomen nontender, no guarding and abdomen not rigid Neurologic: CN's II-XI intact bilaterally; no focal motor deficits Motor/Sensory: no tremor Psychiatric: Orientation: alert and oriented x 3 Results & Data ([facility]) Vital Signs (Past 12 Hours) Vital Signs Pulse Pulse Resp BP BP BP Pulse Ox 10/02/21 10:00 80 15 97/55 L 95 10/02/21 07:45 80 14 123/71 96 10/02/21 07:44 10/02/21 05:19 80 14 110/67 96 10/02/21 02:30 80 16 114/63 95 Pulse Ox 10/02/21 10:00 10/02/21 07:45 10/02/21 07:44 95 10/02/21 05:19 10/02/21 02:30
--- NOTE | 2021-10-02 11:52 | Pharmacy Report ---
Pharmacy Glycemic Short Note 2 - Date of Service October 02, 2021 - Glycemic Short BSG Results (Last 24 hours): 10/01/21 10/01/21 10/01/21 16:45 18:41 21:42 Glucose 269 H POC Glucose 206 H 288 H 10/02/21 10/02/21 10/02/21 02:29 03:38 07:43 Glucose 210 H POC Glucose 219 H 174 H OUTPATIENT ANTIDIABETIC REGIMEN: * Basaglar (insulin glargine) 40 units SQ HS * Victoza 1.2mg SQ daily * A1c = 7.3% on 10/02/21 ASSESSMENT: * 76yo T2DM male with adequate outpatient control per A1c * Pt is maintained on basal insulin + GLP1 * Will hold GLP1 and use weight based NovoLog in its place. * Continue outpatient Lantus, will give just an additional one time dose of 15 units this AM since all BSGs > 250 since admission. PLAN FOR INPATIENT GLYCEMIC CONTROL: * Hold outpatient GLP1 * Basal insulin * Lantus 40 units SQ HS * Additional one time dose of 15 units this AM for BSG > 250 * Bolus insulin * NovoLog per scale ACHS or Q6hrs while NPO * Goal Range: Low 110 mg/dL - High 140 mg/dL * Correction Factor: 20 mg/dL/unit * Nutritional / Prandial insulin per carb ratio of 1 unit per 6 grams CHO consumed PLAN FOR DISCHARGE: * No changes needed to outpatient regimen
--- NOTE | 2021-10-02 15:48 | Hospitalist Progress Note ---
Date of Service October 02, 2021 Assessment & Plan (1) Acute heart failure with preserved ejection fraction: (2) Elevated troponin: (3) Acute worsening of stage 3 chronic kidney disease: (4) Paroxysmal atrial fibrillation: (5) Type 2 diabetes mellitus: (6) Multiple myeloma: Plan: Patient is a 76 yr male with H/O CAD S/P CABG X 3 in 1993, TBS status post PPM, paroxysmal Atrial fibrillation, peripheral vascular disease with history of left popliteal occlusion status post bypass in 2016, T2DM, HTN, HLD and recent diagnosis of multiple myeloma with lytic bone lesions who presents to ER secondary to shortness of breath with exertion x1 week. Acute heart failure with preserved ejection fraction CXR: IMPRESSION: Interval development of mild interstitial pulmonary edema and a small right pleural effusion. Pro bnp 3137, trop 0.063 ECHO: Mildly reduced LV systolic function with moderate mitral regurgitation. Unchanged basal, inferior wall motion abnormality. Continue Lasix 40 mg twice daily Lisinopril on hold due to relatively low blood pressure Monitor I's and O's, daily weight, renal function, electrolytes Appreciate cardiology input Multaq discontinued in setting of CHF Mild Troponin Elevation Likely Type II [place] Ischemia due to CHF Troponin trended down CAD S/O CABG Continue aspirin, Lipitor, metoprolol, isosorbide Acute kidney injury on CKD stage III Cr 1.5 Avoid nephrotoxic agents Monitor renal function Lisinopril held PAF TBS s/p PPM continue metoprolol, stop multaq continue eliquis DM II HbA1C: 7.3 hold victoza Lantus/novolog per protocol glycemic pharmacy consult Multiple Myeloma recent dx, currently undergoing tx with Velcade, Revlimid and dexamethasone currently off revlimid for 7 days continue doxycycline and acyclovir last tx 09/29 Pancytopenia secondary to MM/Meds s/p 1 unit PRBC 09/30/21 monitor CBC, no s/sx of bleeding DVT Px: Eliquis Code Status FULL CODE Admission and Anticipated Discharge Date Admission Date: October 01, 2021 Subjective Patient is seen and examined at bedside States feeling better today Leg swelling slowly improving Still has dyspnea on exertion Feels chest is congested Also reports constipation Offers no other complaints Family at bedside Review of Systems Review of Systems: All systems reviewed & are unremarkable except as noted in Subjective Physical Exam Physical Exam: Physical Exam: Vitals signs as noted above General Appearance:Moderately built and nourished, no apparent distress Head: normocephalic, Atraumatic Eyes: normal inspection, EOMI Neck: supple, Trachea midline Respiratory/Chest: Normal breath sounds, + Basal Crackles Cardiovascular: S1, S2, No murmur Abdomen/GI:Soft, Non tender, Bowel sounds present Extremities/Musculoskeletal:normal inspection, + Pedal edema Neurologic/Psych:AAOX3, grossly no focal neurological deficits Skin: normal color, warm Results & Data Results & Data ([facility]) Vital Signs (Past 12 Hours) Vital Signs Temp Pulse Pulse Resp BP BP BP 10/02/21 15:37 36.5 C 72 19 127/67 10/02/21 12:00 78 15 127/54 L 10/02/21 10:00 80 15 97/55 L 10/02/21 07:45 80 14 123/71 10/02/21 07:44 10/02/21 05:19 80 14 110/67 Pulse Ox Pulse Ox 10/02/21 15:37 94 10/02/21 12:00 92 10/02/21 10:00 95 10/02/21 07:45 96 10/02/21 07:44 95 10/02/21 05:19 96 Laboratory Results Short CBC 10/01/21 10/02/21 Range/Units 16:45 03:38 WBC 4.44 L 3.12 L (4.8-10.8) K/uL Hgb 10.0 L 9.1 L (14.0-18.0) g/dL Hct 30.5 L 27.8 L (42-52) % Plt Count 93 L 79 L (130-400) K/uL BMP 10/01/21 10/02/21 16:45 03:38 Sodium 139 139 Potassium 5.0 4.6 Chloride 113 H 112 H Carbon Dioxide 19 L 20 L BUN 33 H 40 H Creatinine 1.50 H 1.54 H Glucose 269 H 210 H Calcium 7.5 L 7.3 L Cardiac Enzymes 10/01/21 10/01/21 10/02/21 Range/Units 16:45 22:05 03:38 Troponin I 0.063 H* 0.052 H* 0.028 (0-0.045) ng/ml Liver Function 10/01/21 Range/Units 16:45 Total Bilirubin 0.9 (0.2-1) mg/dl AST 21 (15-37) U/L ALT 53 (12-78) Alkaline Phosphatase 104 (45-117) U/L Albumin 3.0 L (3.4-5.0) gm/dl Urine 10/02/ Range/Units 09:47 Urine Color Yellow Urine Appearance Clear (Clear) Urine pH 5.0 (4.5-7.5) Ur Specific [place] 1.022 (1.000-1.030) Urine Protein Trace H (Negative) Urine Glucose (UA) 1+ H (Negative)
[2021-10-02] MEDS: DOCUSATE SODIUM 100 MG CAP PO SCH ×2 (16:34→20:23)
[2021-10-02] MEDS: INSULIN GLARGINE SOLOSTAR 100 UNITS/ML 3 ML PEN SC SCH (21:05)
[2021-10-03] MEDS: ACETAMINOPHEN 325 MG TAB PO PRN ×3 (00:33→22:21)
[2021-10-03] MEDS: OMEGA-3 (PURIFIED FISH OIL) 1 GM CAP PO SCH ×2 (07:46→19:28)
[2021-10-03] MEDS: ACYCLOVIR 400 MG TAB PO SCH ×2 (07:46→19:28)
[2021-10-03] MEDS: ISOSORBIDE MONO EXTENDED REL 30 MG TABCR PO SCH (07:46)
[2021-10-03] MEDS: DOCUSATE SODIUM 100 MG CAP PO SCH ×2 (07:46→20:26)
[2021-10-03] MEDS: METOPROLOL SUCC 50MG EXT REL TAB PO SCH ×2 (07:46→19:30)
[2021-10-03] MEDS: ATORVASTATIN 40 MG TAB PO SCH (07:46)
[2021-10-03] MEDS: ASPIRIN 81 MG ECTAB PO SCH (07:47)
[2021-10-03] MEDS: DOXYCYCLINE SUSP 25 MG/5 ML 60ML PO SCH ×2 (07:47→19:29)
[2021-10-03] MEDS: FUROSEMIDE 40 MG/4 ML VIAL IV SCH (07:50)
[2021-10-03] MEDS: INSULIN ASPART PER UNIT SC SCH ×4 (08:00→20:26)
[2021-10-03 08:17] LABS: Mean Corpuscular Hemoglobin 32.4 pg (25-34); Mean Corpuscular Hgb Conc 33.3 g/dL (32-36); Mean Corpuscular Volume 97.1 fL (80-100); Mean Platelet Volume 12.2 fL (7.4-10.4); Platelet Count 87 K/uL (130-400); RDW Coefficient of Variation 15.3 % (11.5-14.5); RDW Standard Deviation 53.6 fL (36.4-46.3); Red Blood Count 3.09 M/uL (4.7-6.1); White Blood Count 5.37 K/uL (4.8-10.8)
[2021-10-03 08:25] LABS: BUN Creatinine Ratio 32.1 (10-20); Calcium 7.1 mg/dl (8.5-10.1); Creatinine Clr Calc Pharmacy 42.5 ml/min; Est GFR (African American) 48.1 ml/min; Est GFR (Non-African American) 41.5 ml/min; Potassium 4.5 mmol/L (3.5-5.1)
[2021-10-03 08:27] LABS: Immature Granulocytes # (auto) 0.02 K/uL (0.00-0.02); Immature Granulocytes % (auto) 0.4 %; Lymphocytes # (auto) 0.67 K/uL (1.2-3.4); Lymphocytes % (auto) 12.5 %; Monocytes # (auto) 0.87 K/uL (0.11-0.59); Monocytes % (auto) 16.2 %; Neutrophils # (auto) 3.81 K/uL (1.4-6.5); Neutrophils % (auto) 70.9 %; Ovalocytes 1+; Tear Drop Cells 1+
[2021-10-03] MEDS: APIXABAN 5 MG TABLET PO SCH ×2 (09:00→19:29)
--- NOTE | 2021-10-03 09:07 | Pharmacy Report ---
Pharmacy Glycemic Short Note 2 - Date of Service October 03, 2021 - Glycemic Short BSG Results (Last 24 hours): 10/02/21 10/02/21 10/02/21 12:12 16:06 20:35 Glucose POC Glucose 290 H 136 H 212 H 10/03/21 10/03/21 07:30 07:32 Glucose 145 H POC Glucose 119 H OUTPATIENT ANTIDIABETIC REGIMEN: * Basaglar (insulin glargine) 40 units SQ HS * Victoza 1.2mg SQ daily * A1c = 7.3% on 10/02/21 ASSESSMENT: 10/03 * BSGs trending down nicely with current orders. * Gave a one time supplemental dose of Lantus for sustained stress hyperglycemia. Will resume regular outpatient dosing today as bsgs trending down and A1c well controlled on this dose. Concern for hypo if we continue to dose above outpatient dosing with minimal risk factors for insulin resistance (i.e. no steroids etc). Will slightly tighten CF/CR since Lantus dose will be less than yesterday. Continue to titrate based on BSG trends. 10/02 * 76yo T2DM male with adequate outpatient control per A1c * Pt is maintained on basal insulin + GLP1 * Will hold GLP1 and use weight based NovoLog in its place. * Continue outpatient Lantus, will give just an additional one time dose of 15 units this AM since all BSGs > 250 since admission. PLAN FOR INPATIENT GLYCEMIC CONTROL: * Hold outpatient GLP1 * Basal insulin * Lantus 40 units SQ HS * Bolus insulin * NovoLog per scale ACHS or Q6hrs while NPO * Goal Range: Low 110 mg/dL - High 140 mg/dL * Correction Factor: 15 mg/dL/unit * Nutritional / Prandial insulin per carb ratio of 1 unit per 5 grams CHO consumed PLAN FOR DISCHARGE: * No changes needed to outpatient regimen
--- NOTE | 2021-10-03 11:11 | Cardiology Progress Note ---
Date of Service October 03, 2021 Assessment & Plan (1) Acute heart failure with reduced ejection fraction and diastolic dy sfunction: (2) Mitral regurgitation: (3) Paroxysmal atrial fibrillation: (4) Acute worsening of stage 3 chronic kidney disease: (5) Thrombocytopenia: (6) Tachy-noman syndrome: (7) Peripheral vascular disease of lower extremity: (8) Multiple myeloma: Plan: Hold evening dose of Lasix today. Repeat basic metabolic panel in a.m. Consider transition to oral torsemide, 20 mg daily pending review. Hold lisinopril due to borderline hypotension and mildly elevated creatinine. Multaq discontinued due to congestive heart failure. Recurrent atrial fibrillation noted overnight. Recommend addition of amiodarone 200 mg 3 times daily. Potential toxicities reviewed. Patient agreeable. Follow-up LFTs and TSH recommended in 3 months. Continue metoprolol and monitor telemetry. Pancytopenia secondary to chemotherapy (Revlimid and Velcade). Repeat CBC in a.m. Continue Eliquis cautiously with evidence of thrombocytopenia. Consider discontinuation with any further decline in platelet count. Admission and Anticipated Discharge Date Admission Date: October 01, 2021 Subjective Patient seen and examined at the bedside. Dyspnea and lower extremity edema markedly improved. Abdominal bloating persists. Denies orthopnea or PND. Notes palpitations today. Evidence of recurrent atrial fibrillation overnight with fair rate control. No lightheadedness, dizziness, or chest discomfort. Fluid balance negative more than 3 L. Creatinine trending upward. Review of Systems Review of Systems: All systems reviewed & are unremarkable except as noted in Subjective Physical Exam Constitutional: well developed, well nourished and + ill appearing; no acute distress Respiratory: normal respiratory effort; no respiratory distress, no labored breathing and no retractions Auscultation: + rales (Left base); no rhonchi and no wheezes Cardiovascular: Rate/Rhythm: regular rate and regular rhythm Heart Sounds: normal S1 and normal S2; no murmur Vessels: radial pulses present; no JVD and no carotid bruit Extremities: + edema (1+ bilateral pedal and ankle edema) Gastrointestinal (Abdomen): Inspection/Auscultation: abdomen normal to inspection and normal bowel sounds; abdomen not distended Percussion/Palpation: abdomen soft; abdomen nontender, no guarding and abdomen not rigid Neurologic: CN's II-XI intact bilaterally; no focal motor deficits Motor/Sensory: no tremor Psychiatric: Orientation: alert and oriented x 3 Results & Data ([facility]) Vital Signs (Past 12 Hours) Vital Signs Temp Pulse Resp BP BP Pulse Ox 10/03/21 08:00 36.8 C 79 18 110/69 95 10/03/21 04:10 36.4 C L 83 18 117/69 96 10/02/21 23:29 36.5 C 69 18 108/62 93
[2021-10-03] MEDS ORDERED: AMIODARONE 200 MG TAB PO ONE (11:20)
[2021-10-03] MEDS: AMIODARONE 200 MG TAB PO SCH ×2 (15:03→19:29)
[2021-10-03] MEDS: POLYETHYLENE (MIRALAX) 17 GM PACK PO PRN (17:34)
--- NOTE | 2021-10-03 17:55 | Hospitalist Progress Note ---
Date of Service October 03, 2021 Assessment & Plan (1) Acute heart failure with preserved ejection fraction: (2) Elevated troponin: (3) Acute worsening of stage 3 chronic kidney disease: (4) Paroxysmal atrial fibrillation: (5) Type 2 diabetes mellitus: (6) Multiple myeloma: Plan: Patient is a 76 yr male with H/O CAD S/P CABG X 3 in 1993, TBS status post PPM, paroxysmal Atrial fibrillation, peripheral vascular disease with history of left popliteal occlusion status post bypass in 2016, T2DM, HTN, HLD and recent diagnosis of multiple myeloma with lytic bone lesions who presents to ER secondary to shortness of breath with exertion x1 week. Acute heart failure with preserved ejection fraction CXR: IMPRESSION: Interval development of mild interstitial pulmonary edema and a small right pleural effusion. Pro bnp 3137, trop 0.063 ECHO: Mildly reduced LV systolic function with moderate mitral regurgitation. Unchanged basal, inferior wall motion abnormality. Received Lasix 40 mg twice daily Lisinopril on hold due to relatively low blood pressure Monitor I's and O's, daily weight, renal function, electrolytes Appreciate cardiology input Multaq discontinued in setting of CHF Monitor volume status Possible plan to transition to p.o. diuretics tomorrow Mild Troponin Elevation Likely Type II [place]/Demand Ischemia due to CHF Troponin trended down CAD S/O CABG Continue aspirin, Lipitor, metoprolol, isosorbide Acute kidney injury on CKD stage III Cr 1.6 today Avoid nephrotoxic agents Monitor renal function Lisinopril held PAF TBS s/p PPM continue metoprolol, stop multaq continue eliquis Started on amiodarone 200 mg 3 times daily DM II HbA1C: 7.3 hold victoza Lantus/novolog per protocol glycemic pharmacy consult Multiple Myeloma recent dx, currently undergoing tx with Velcade, Revlimid and dexamethasone currently off revlimid for 7 days continue doxycycline and acyclovir last tx 09/29 Pancytopenia secondary to MM/Meds s/p 1 unit PRBC 09/30/21 monitor CBC, no s/sx of bleeding DVT Px: Eliquis Code Status FULL CODE Disposition PT/OT prior to discharge Admission and Anticipated Discharge Date Admission Date: October 03, 2021 Subjective Patient is seen and examined at bedside States having palpitations this morning Leg edema continues to improve Still has minimal dyspnea, chest congestion Offers no other complaints Review of Systems Review of Systems: All systems reviewed & are unremarkable except as noted in Subjective Physical Exam Physical Exam: Physical Exam: Vitals signs as noted above General Appearance:Moderately built and nourished, no apparent distress Head: normocephalic, Atraumatic Eyes: normal inspection, EOMI Neck: supple, Trachea midline Respiratory/Chest: Normal breath sounds, CTA Cardiovascular: S1, S2, No murmur Abdomen/GI:Soft, Non tender, Bowel sounds present Extremities/Musculoskeletal:normal inspection, + Pedal edema Neurologic/Psych:AAOX3, grossly no focal neurological deficits Skin: normal color, warm Results & Data Results & Data ([facility]) Vital Signs (Past 12 Hours) Vital Signs Temp Pulse Pulse Resp BP Pulse Ox 10/03/21 17:00 36.5 C 77 20 127/63 10/03/21 16:00 61 10/03/21 12:20 36.7 C 89 20 124/72 95 10/03/21 08:00 36.8 C 79 18 110/69 95 Laboratory Results Short CBC 10/03/21 Range/Units 07:55 WBC 5.37 (4.8-10.8) K/uL Hgb 10.0 L (14.0-18.0) g/dL Hct 30.0 L (42-52) % Plt Count 87 L (130-400) K/uL BMP 10/03/21 07:32 Sodium 140 Potassium 4.5 Chloride 111 H Carbon Dioxide 20 L BUN 51 H Creatinine 1.60 H Glucose 145 H Calcium 7.1 L
[2021-10-03] MEDS: INSULIN GLARGINE SOLOSTAR 100 UNITS/ML 3 ML PEN SC SCH (20:27)
--- NOTE | 2021-10-03 21:14 | Electrocardiogram Report ---
Test Reason : Blood Pressure : / mmHG Vent. Rate : 075 BPM Atrial Rate : 075 BPM P-R Int : 224 ms QRS Dur : 096 ms QT Int : 434 ms P-R-T Axes : 026 076 164 degrees QTc Int : 484 ms Atrial-paced rhythm with prolonged AV conduction Nonspecific ST and T wave abnormality Abnormal ECG When compared with ECG of 23-APR-2020 11:28, ST now depressed in Lateral leads Nonspecific T wave abnormality now evident in Anterolateral leads QT has lengthened Confirmed by Jalen Fofana ([id number]) on 10/03/2021 9:14:02 PM Referred By: Jeremías Lane Confirmed By:Jalen Fofana
[2021-10-04 07:38] LABS: Hematocrit (blood only) 31.6 % (42-52); Hemoglobin 10.4 g/dL (14.0-18.0); Mean Corpuscular Hemoglobin 32.3 pg (25-34); Mean Corpuscular Hgb Conc 32.9 g/dL (32-36); Mean Corpuscular Volume 98.1 fL (80-100); Nucleated RBC # (auto) 0.02 K/uL (0-0); Nucleated RBC % (auto) 0.5 %; RDW Coefficient of Variation 15.2 % (11.5-14.5); RDW Standard Deviation 54.1 fL (36.4-46.3); Red Blood Count 3.22 M/uL (4.7-6.1); White Blood Count 4.62 K/uL (4.8-10.8)
[2021-10-04 07:46] LABS: Mean Platelet Volume 11.1 fL (7.4-10.4); Platelet Count 91 K/uL (130-400)
[2021-10-04] MEDS: DOXYCYCLINE SUSP 25 MG/5 ML 60ML PO SCH ×2 (08:01→21:52)
[2021-10-04] MEDS: ATORVASTATIN 40 MG TAB PO SCH (08:01)
[2021-10-04] MEDS: ASPIRIN 81 MG ECTAB PO SCH (08:01)
[2021-10-04] MEDS: OMEGA-3 (PURIFIED FISH OIL) 1 GM CAP PO SCH ×2 (08:01→21:52)
[2021-10-04] MEDS: ACYCLOVIR 400 MG TAB PO SCH ×2 (08:02→21:52)
[2021-10-04] MEDS: AMIODARONE 200 MG TAB PO SCH ×3 (08:02→21:54)
[2021-10-04] MEDS: APIXABAN 5 MG TABLET PO SCH ×2 (08:02→21:54)
[2021-10-04] MEDS: POLYETHYLENE (MIRALAX) 17 GM PACK PO PRN (08:10)
[2021-10-04] MEDS: ISOSORBIDE MONO EXTENDED REL 30 MG TABCR PO SCH (08:11)
[2021-10-04] MEDS: METOPROLOL SUCC 50MG EXT REL TAB PO SCH ×2 (08:11→21:52)
[2021-10-04 08:14] LABS: BUN Creatinine Ratio 34.3 (10-20); Calcium 7.1 mg/dl (8.5-10.1); Creatinine Clr Calc Pharmacy 52.3 ml/min; Est GFR (African American) 61.9 ml/min; Est GFR (Non-African American) 53.4 ml/min; Potassium 4.4 mmol/L (3.5-5.1)
[2021-10-04] MEDS: INSULIN ASPART PER UNIT SC SCH ×4 (08:19→22:05)
[2021-10-04] MEDS: DOCUSATE SODIUM 100 MG CAP PO SCH (08:20)
--- NOTE | 2021-10-04 12:39 | Cardiology Progress Note ---
Date of Service October 04, 2021 Assessment & Plan (1) Acute heart failure with reduced ejection fraction and diastolic dy sfunction: (2) Mitral regurgitation: (3) Paroxysmal atrial fibrillation: (4) Acute worsening of stage 3 chronic kidney disease: (5) Thrombocytopenia: (6) Tachy-noman syndrome: (7) Peripheral vascular disease of lower extremity: (8) Multiple myeloma: Plan: Continue oral amiodarone load at 200 mg 3 times per day Signs and symptoms of congestive heart failure improving after diuresis. We will discontinue IV furosemide and begin torsemide 20 mg/day EKG in a.m. Admission and Anticipated Discharge Date Admission Date: October 03, 2021 Subjective Patient seen and examined, chart, medications, telemetry reviewed. Overall no acute complaints this morning. No dizziness or lightheadedness. No worsening shortness of breath or chest pain. Telemetry with atrial paced rhythm with occasional ventricular ectopy Review of Systems Review of Systems: All systems reviewed & are unremarkable except as noted in Subjective Physical Exam Constitutional: average body habitus; no acute distress Eyes: PERRL, conjunctivae normal, anicteric sclerae Respiratory: normal respiratory effort; no respiratory distress, no labored breathing and no retractions Auscultation: no rhonchi and no wheezes Cardiovascular: Rate/Rhythm: regular rate and regular rhythm Heart Sounds: normal S1 and normal S2; no murmur Vessels: radial pulses present; no JVD and no carotid bruit Extremities: + edema (Trace bilateral pedal and ankle edema) Gastrointestinal (Abdomen): Inspection/Auscultation: abdomen normal to inspection and normal bowel sounds; abdomen not distended Percussion/Palpation: abdomen soft; abdomen nontender, no guarding and abdomen not rigid Neurologic: CN's II-XI intact bilaterally; no focal motor deficits Motor/Sensory: no tremor Psychiatric: Orientation: alert and oriented x 3 Results & Data ([facility]) Vital Signs (Past 12 Hours) Vital Signs Temp Pulse Pulse Resp BP BP Pulse Ox 10/04/21 11:35 10/04/21 08:00 37.0 C 86 20 118/68 97 10/04/21 07:16 65 10/04/21 03:38 36.8 C 70 18 108/71 100 Pulse Ox 10/04/21 11:35 92 10/04/21 08:00 10/04/21 07:16 10/04/21 03:38 Laboratory Results Laboratory Results - last 24 hr 10/03/21 10/03/21 10/04/21 16:22 20:18 07:15 WBC 4.62 L RBC 3.22 L Hgb 10.4 L Hct 31.6 L MCV 98.1 MCH 32.3 MCHC 32.9 RDW Std Deviation 54.1 H RDW Coeff of Collin 15.2 H Plt Count 91 L MPV 11.1 H Absolute Nucleated RBC 0.02 H Nucleated RBC % (auto) 0.5 Sodium Potassium Chloride Carbon Dioxide Anion Gap BUN Creatinine Est Cr Clr Drug Dosing Est GFR ( Amer) Est GFR (Non-Af Amer) BUN/Creatinine Ratio Glucose POC Glucose 149 H 143 H Calcium 10/04/21 10/04/21 10/04/21 07:15 07:26 11:31 WBC RBC Hgb Hct MCV MCH MCHC RDW Std Deviation RDW Coeff of Collin Plt Count MPV Absolute Nucleated RBC Nucleated RBC % (auto) Sodium 141 Potassium 4.4 Chloride 112 H Carbon Dioxide 21 Anion Gap 8.0 BUN 45 H Creatinine 1.30 D Est Cr Clr Drug Dosing 52.3 Est GFR ( Amer) 61.9 Est GFR (Non-Af Amer) 53.4 BUN/Creatinine Ratio 34.3 H Glucose 85 POC Glucose 86 115 H Calcium 7.1 L
[2021-10-04] MEDS: TORSEMIDE 20 MG TAB PO SCH (14:06)
[2021-10-04] MEDS: ACETAMINOPHEN 325 MG TAB PO PRN ×2 (16:47→21:53)
--- NOTE | 2021-10-04 17:22 | Hospitalist Progress Note ---
Date of Service October 04, 2021 Assessment & Plan (1) Acute heart failure with preserved ejection fraction: (2) Elevated troponin: (3) Acute worsening of stage 3 chronic kidney disease: (4) Paroxysmal atrial fibrillation: (5) Type 2 diabetes mellitus: (6) Multiple myeloma: Plan: Patient is a 76 yr male with H/O CAD S/P CABG X 3 in 1993, TBS status post PPM, paroxysmal Atrial fibrillation, peripheral vascular disease with history of left popliteal occlusion status post bypass in 2016, T2DM, HTN, HLD and recent diagnosis of multiple myeloma with lytic bone lesions who presents to ER secondary to shortness of breath with exertion x1 week. Acute heart failure with preserved ejection fraction CXR: IMPRESSION: Interval development of mild interstitial pulmonary edema and a small right pleural effusion. Pro bnp 3137, trop 0.063 ECHO: Mildly reduced LV systolic function with moderate mitral regurgitation. Unchanged basal, inferior wall motion abnormality. Received Lasix 40 mg twice daily Lisinopril on hold due to relatively low blood pressure Monitor I's and O's, daily weight Appreciate cardiology input Multaq discontinued in setting of CHF Monitor volume status IV diuretics transition to torsemide Monitor electrolytes, renal function Mild Troponin Elevation Likely Type II [place]/Demand Ischemia due to CHF Troponin trended down CAD S/O CABG Continue aspirin, Lipitor, metoprolol, isosorbide Acute kidney injury on CKD stage III Cr 1.6 >1.3 Avoid nephrotoxic agents Monitor renal function Lisinopril held PAF TBS s/p PPM continue metoprolol, stop multaq continue eliquis Continue amiodarone 200 mg 3 times daily Plan to repeat EKG tomorrow DM II HbA1C: 7.3 hold victoza Lantus/novolog per protocol glycemic pharmacy consult Multiple Myeloma recent dx, currently undergoing tx with Velcade, Revlimid and dexamethasone currently off revlimid for 7 days continue doxycycline and acyclovir last tx 09/29 Pancytopenia secondary to MM/Meds s/p 1 unit PRBC 09/30/21 monitor CBC, no s/sx of bleeding DVT Px: Eliquis Code Status FULL CODE Disposition PT/OT prior to discharge Admission and Anticipated Discharge Date Admission Date: October 03, 2021 Subjective Patient is seen and examined at bedside States feeling better today Less dyspnea today No bowel movement today Still has mild chest congestion Offers no other complaints Review of Systems Review of Systems: All systems reviewed & are unremarkable except as noted in Subjective Physical Exam Physical Exam: Physical Exam: Vitals signs as noted above General Appearance:Moderately built and nourished, no apparent distress Head: normocephalic, Atraumatic Eyes: normal inspection, EOMI Neck: supple, Trachea midline Respiratory/Chest: Normal breath sounds, CTA Cardiovascular: S1, S2, No murmur Abdomen/GI:Soft, Non tender, Bowel sounds present Extremities/Musculoskeletal:normal inspection, + Pedal edema Neurologic/Psych:AAOX3, grossly no focal neurological deficits Skin: normal color, warm Results & Data Results & Data ([facility]) Vital Signs (Past 12 Hours) Vital Signs Temp Pulse Pulse Resp BP Pulse Ox Pulse Ox 10/04/21 16:30 36.8 C 65 18 134/65 95 10/04/21 14:00 60 10/04/21 12:00 36.9 C 86 20 129/68 95 10/04/21 11:35 92 10/04/21 08:00 37.0 C 86 20 118/68 97 10/04/21 07:16 65 Laboratory Results Short CBC 10/04/21 Range/Units 07:15 WBC 4.62 L (4.8-10.8) K/uL Hgb 10.4 L (14.0-18.0) g/dL Hct 31.6 L (42-52) % Plt Count 91 L (130-400) K/uL BMP 10/04/21 07:15 Sodium 141 Potassium 4.4 Chloride 112 H Carbon Dioxide 21 BUN 45 H Creatinine 1.30 D Glucose 85 Calcium 7.1 L
[2021-10-04] MEDS ORDERED: INSULIN GLARGINE SOLOSTAR 100 UNITS/ML 3 ML PEN SC SCH (21:00)
[2021-10-04] MEDS: DOCUSATE SODIUM/SENNA 50/8.6MG TAB PO SCH (22:07)
[2021-10-05 06:12] LABS: BUN Creatinine Ratio 30.9 (10-20); Calcium 7.6 mg/dl (8.5-10.1); Creatinine Clr Calc Pharmacy 51.1 ml/min; Est GFR (African American) 60.2 ml/min; Est GFR (Non-African American) 51.9 ml/min; Potassium 4.6 mmol/L (3.5-5.1)
[2021-10-05] MEDS: INSULIN ASPART PER UNIT SC SCH ×2 (08:05→11:53)
[2021-10-05] MEDS: METOPROLOL SUCC 50MG EXT REL TAB PO SCH (08:06)
[2021-10-05] MEDS: OMEGA-3 (PURIFIED FISH OIL) 1 GM CAP PO SCH (08:06)
[2021-10-05] MEDS: DOXYCYCLINE SUSP 25 MG/5 ML 60ML PO SCH (08:06)
[2021-10-05] MEDS: APIXABAN 5 MG TABLET PO SCH (08:06)
[2021-10-05] MEDS: ACYCLOVIR 400 MG TAB PO SCH (08:06)
[2021-10-05] MEDS: AMIODARONE 200 MG TAB PO SCH ×2 (08:06→13:33)
[2021-10-05] MEDS: ASPIRIN 81 MG ECTAB PO SCH (08:07)
[2021-10-05] MEDS: TORSEMIDE 20 MG TAB PO SCH (08:07)
[2021-10-05] MEDS: ATORVASTATIN 40 MG TAB PO SCH (08:07)
[2021-10-05] MEDS: DOCUSATE SODIUM/SENNA 50/8.6MG TAB PO SCH (08:07)
[2021-10-05] MEDS: ISOSORBIDE MONO EXTENDED REL 30 MG TABCR PO SCH (08:07)
--- NOTE | 2021-10-05 09:52 | Pharmacy Report ---
Pharmacy Glycemic Short Note 2 - Date of Service October 05, 2021 - Glycemic Short BSG Results (Last 24 hours): 10/04/21 10/04/21 10/04/21 11:31 16:40 20:42 Glucose POC Glucose 115 H 70 150 H 10/05/21 10/05/21 05:15 07:08 Glucose 97 POC Glucose 104 H OUTPATIENT ANTIDIABETIC REGIMEN: * Basaglar (insulin glargine) 40 units SQ HS * Victoza 1.2mg SQ daily * A1c = 7.3% on 10/02/21 ASSESSMENT: 10/05/21 * Patient's BSGs yesterday were 03-963-22-150 mg/dL and patient received 71 units of insulin (30 units of basal and 41 units of bolus) * Fasting today is 104 mg/dL. * Continue Lantus after dose decrease yesterday. * BSGs did trend downwards yesterday so loosen CR. 10/03 * BSGs trending down nicely with current orders. * Gave a one time supplemental dose of Lantus for sustained stress h yperglycemia. Will resume regular outpatient dosing today as bsgs trending down and A1c well controlled on this dose. Concern for hypo if we continue to dose above outpatient dosing with minimal risk factors for insulin resistance (i.e. no steroids etc). Will slightly tighten CF/CR since Lantus dose will be less than yesterday. Continue to titrate based on BSG trends. 10/02 * 76yo T2DM male with adequate outpatient control per A1c * Pt is maintained on basal insulin + GLP1 * Will hold GLP1 and use weight based NovoLog in its place. * Continue outpatient Lantus, will give just an additional one time dose of 15 units this AM since all BSGs > 250 since admission. PLAN FOR INPATIENT GLYCEMIC CONTROL: * Hold outpatient GLP1 * Basal insulin * Lantus 30 units SQ HS * Bolus insulin * NovoLog per scale ACHS or Q6hrs while NPO * Goal Range: Low 110 mg/dL - High 140 mg/dL * Correction Factor: 15 mg/dL/unit * Nutritional / Prandial insulin per carb ratio of 1 unit per 6 grams CHO consumed PLAN FOR DISCHARGE: * No changes needed to outpatient regimen
--- NOTE | 2021-10-05 12:35 | Cardiology Progress Note ---
Date of Service October 05, 2021 Assessment & Plan (1) Acute heart failure with reduced ejection fraction and diastolic dy sfunction: (2) Mitral regurgitation: (3) Paroxysmal atrial fibrillation: (4) Acute worsening of stage 3 chronic kidney disease: (5) Thrombocytopenia: (6) Tachy-noman syndrome: (7) Peripheral vascular disease of lower extremity: (8) Multiple myeloma: Plan: Patient making gradual improvement. Tolerating amiodarone well. EKG today atrial paced, QT corrected 481 Patient stable for discharge today on current medical regimen with reduction in amiodarone dosing to 200 mg twice per day. Note newly added torsemide, reduction in metoprolol dosing Patient has scheduled follow-up with cardiology on Wednesday Admission and Anticipated Discharge Date Admission Date: October 03, 2021 Subjective Patient was seen and examined, chart, medications, telemetry reviewed. Feels okay this morning occasional irregular heartbeat and chest. No chest pain or discomfort no orthopnea. Edema improved. No arrhythmias on telemetry with predominant rhythm atrial paced Review of Systems Review of Systems: All systems reviewed & are unremarkable except as noted in Subjective Physical Exam Constitutional: average body habitus; no acute distress Eyes: PERRL, conjunctivae normal, anicteric sclerae Respiratory: normal respiratory effort; no respiratory distress, no labored breathing and no retractions Auscultation: no rhonchi and no wheezes Cardiovascular: Rate/Rhythm: regular rate and regular rhythm Heart Sounds: normal S1 and normal S2; no murmur Vessels: radial pulses present; no JVD and no carotid bruit Extremities: no edema Gastrointestinal (Abdomen): Inspection/Auscultation: abdomen normal to inspection and normal bowel sounds; abdomen not distended Percussion/Palpation: abdomen soft; abdomen nontender, no guarding and abdomen not rigid Neurologic: CN's II-XI intact bilaterally; no focal motor deficits Motor/Sensory: no tremor Psychiatric: Orientation: alert and oriented x 3 Results & Data ([facility]) Vital Signs (Past 12 Hours) Vital Signs Temp Pulse Pulse Resp BP BP Pulse Ox 10/05/21 11:38 36.8 C 61 17 108/64 96 10/05/21 07:23 63 10/05/21 07:11 36.7 C 66 20 117/70 96 10/05/21 03:26 36.4 C L 78 18 107/70 97 Laboratory Results Laboratory Results - last 24 hr 10/04/21 10/04/21 10/05/21 16:40 20:42 05:15 Sodium 140 Potassium 4.6 Chloride 110 H Carbon Dioxide 22 Anion Gap 8.0 BUN 41 H Creatinine 1.33 Est Cr Clr Drug Dosing 51.1 Est GFR ( Amer) 60.2 Est GFR (Non-Af Amer) 51.9 BUN/Creatinine Ratio 30.9 H Glucose 97 POC Glucose 70 150 H Calcium 7.6 L 10/05/21 10/05/21 07:08 11:21 Sodium Potassium Chloride Carbon Dioxide Anion Gap BUN Creatinine Est Cr Clr Drug Dosing Est GFR ( Amer) Est GFR (Non-Af Amer) BUN/Creatinine Ratio Glucose POC Glucose 104 H 121 H Calcium
--- NOTE | 2021-10-05 12:40 | Hospitalist Progress Note ---
Date of Service October 05, 2021 Assessment & Plan (1) Acute heart failure with preserved ejection fraction: (2) Elevated troponin: (3) Acute worsening of stage 3 chronic kidney disease: (4) Paroxysmal atrial fibrillation: (5) Type 2 diabetes mellitus: (6) Multiple myeloma: Plan: Patient is a 76 yr male with H/O CAD S/P CABG X 3 in 1993, TBS status post PPM, paroxysmal Atrial fibrillation, peripheral vascular disease with history of left popliteal occlusion status post bypass in 2016, T2DM, HTN, HLD and recent diagnosis of multiple myeloma with lytic bone lesions who presents to ER secondary to shortness of breath with exertion x1 week. Acute heart failure with preserved ejection fraction CXR: IMPRESSION: Interval development of mild interstitial pulmonary edema and a small right pleural effusion. Pro bnp 3137, trop 0.063 ECHO: Mildly reduced LV systolic function with moderate mitral regurgitation. Unchanged basal, inferior wall motion abnormality. Received IV Lasix 40 mg twice daily Lisinopril on hold due to relatively low blood pressure Monitor I's and O's, daily weight Appreciate cardiology input Multaq discontinued in setting of CHF Monitor volume status IV diuretics transition to torsemide Monitor electrolytes, renal function Plan to discharge on Torsemide 20mg daily Needs follow up with Cardiology upon discharge Mild Troponin Elevation Likely Type II [place]/Demand Ischemia due to CHF Troponin trended down CAD S/O CABG Continue aspirin, Lipitor, metoprolol, isosorbide Acute kidney injury on CKD stage III Cr 1.6 >1.3 Avoid nephrotoxic agents Monitor renal function PAF TBS s/p PPM continue metoprolol, stop multaq continue eliquis Plan to discharge on amiodarone 200 mg BID Decrease Metoprolol succinate 150mg to 100mg daily as per Cardiology DM II HbA1C: 7.3 hold victoza Lantus/novolog per protocol glycemic pharmacy consult Multiple Myeloma recent dx, currently undergoing tx with Velcade, Revlimid and dexamethasone currently off revlimid for 7 days continue doxycycline and acyclovir last tx 09/29 Pancytopenia secondary to MM/Meds s/p 1 unit PRBC 09/30/21 monitor CBC, no s/sx of bleeding DVT Px: Eliquis Code Status FULL CODE Disposition Home Admission and Anticipated Discharge Date Admission Date: October 03, 2021 Subjective Patient is seen and examined at bedside No new complaints Discussed with Cardiology today Less intermittent palpitations Denies chest pain, dizziness, nausea, abd pain Dyspnea much improved Review of Systems Review of Systems: All systems reviewed & are unremarkable except as noted in Subjective Physical Exam Physical Exam: Physical Exam: Vitals signs as noted above General Appearance:Moderately built and nourished, no apparent distress Head: normocephalic, Atraumatic Eyes: normal inspection, EOMI Neck: supple, Trachea midline Respiratory/Chest: Normal breath sounds, CTA Cardiovascular: S1, S2, No murmur Abdomen/GI:Soft, Non tender, Bowel sounds present Extremities/Musculoskeletal:normal inspection, + Pedal edema improved Neurologic/Psych:AAOX3, grossly no focal neurological deficits Skin: normal color, warm Results & Data Results & Data ([facility]) Vital Signs (Past 12 Hours) Vital Signs Temp Pulse Pulse Resp BP BP Pulse Ox 10/05/21 11:38 36.8 C 61 17 108/64 96 10/05/21 07:23 63 10/05/21 07:11 36.7 C 66 20 117/70 96 10/05/21 03:26 36.4 C L 78 18 107/70 97 Laboratory Results [facility] 10/05/21 05:15 Sodium 140 Potassium 4.6 Chloride 110 H Carbon Dioxide 22 BUN 41 H Creatinine 1.33 Glucose 97 Calcium 7.6 L
--- NOTE | 2021-10-05 13:03 | Discharge Summary ---
Date of Service October 05, 2021 Admission HPI Per Admitting Provider This is a 76-year-old male who has significant past medical history of CAD with history of CABG times 3 in 1993, TBS status post PPM, paroxysmal Atrial fibrillation, peripheral vascular disease with history of left popliteal occlusion status post bypass in 2016, T2DM, HTN, HLD and recent diagnosis of multiple myeloma with lytic bone lesions who presents to ER secondary to shortness of breath with exertion x1 week. Patient complains of increasing shortness of breath with exertion x1 week, shortness of breath at rest, substernal chest tightness, increasing lower extremity edema, bloating and a 10 pound weight gain. He denies any recent fever, chills, sweats, lightheadedness, dizziness, palpitations, cough, hemoptysis, URI symptoms, nausea, vomiting, abdominal pain, increased urgency or frequency with urination, melena or hematochezia. He does note a decrease in urinary frequency. He further denies any PND orthopnea. He has been compliant with his medications. He follows with [facility] cardiology. Of significance patient did undergo 1 unit of packed red blood cell transfusion yesterday due to anemia. Of significance he was recently diagnosed with multiple myeloma and is currently undergoing chemotherapy with Revlimid, Velcade and Decadron. His last treatment was on 09/29/2021. Admission Exam Per Admitting Provider Physical Exam Physical Exam: Constitutional: WD/WN, ill appearing, vitals as above, NAD, sitting up in bed, pleasant, conversing easily Head: Normocephalic, Atraumatic Eyes: PERRL, conjunctivae normal, anicteric sclerae ENMT: external ear and nose normal, oropharynx normal Neck: trachea midline, no thyromegaly normal visual inspection Respiratory: normal respiratory effort, lungs clear to auscultation, bibasilar rales b/l, no wheeze or rhonchi. Normal insp/exp effort, no accessory muscle use Cardiovascular: RRR, no murmur, b/l lower extremity edema +2 Vessels: + JVD or carotid bruit Chest: normal inspection of chest Abdomen: normal bowel sounds, soft, nontender, no hepatosplenomegaly Musculoskeletal: no cyanosis or clubbing, extremities motor strength 5/5 Skin: no rashes, warm and dry normal turgor Neurologic: PERRL, EOMI, accommodation nl, no face palsy, no dysarthria CN's II-XI intact bilaterally and moves all extremities Psychiatric: A+Ox3, euthymic affect Lymphatic: no cervical or axillary lymphadenopathy : deferred Principal Diagnosis Acute heart failure with preserved ejection fraction Paroxysmal atrial fibrillation Acute kidney injury Discharge Data Allergies Allergy/AdvReac Type Severity Reaction Status Date / Time No Known Allergies Allergy Verified 09/30/21 11:18 Consultations 10/01/21 17:35 ED Decision to Admit Stat 10/01/21 17:49 Consult Cardiology Routine Hospital Course (1) Acute heart failure with preserved ejection fraction: (2) Elevated troponin: (3) Acute worsening of stage 3 chronic kidney disease: (4) Paroxysmal atrial fibrillation: (5) Type 2 diabetes mellitus: (6) Multiple myeloma: Patient is a 76 yr male with H/O CAD S/P CABG X 3 in 1993, TBS status post PPM, paroxysmal Atrial fibrillation, peripheral vascular disease with history of left popliteal occlusion status post bypass in 2016, T2DM, HTN, HLD and recent diagnosis of multiple myeloma with lytic bone lesions who presents to ER secondary to shortness of breath with exertion x1 week. Acute heart failure with preserved ejection fraction CXR: IMPRESSION: Interval development of mild interstitial pulmonary edema and a small right pleural effusion. Pro bnp 3137, trop 0.063 ECHO: Mildly reduced LV systolic function with moderate mitral regurgitation. Unchanged basal, inferior wall motion abnormality. Received IV Lasix 40 mg twice daily Lisinopril on hold due to relatively low blood pressure Monitor I's and O's, daily weight Appreciate cardiology input Multaq discontinued in setting of CHF Monitor volume status IV diuretics transition to torsemide Monitor electrolytes, renal function Plan to discharge on Torsemide 20mg daily Needs follow up with Cardiology upon discharge Mild Troponin Elevation Likely Type II GA/Demand Ischemia due to CHF Troponin trended down CAD S/O CABG Continue aspirin, Lipitor, metoprolol, isosorbide Acute kidney injury on CKD stage III Cr 1.6 >1.3 Avoid nephrotoxic agents Monitor renal function PAF TBS s/p PPM continue metoprolol, stop multaq continue eliquis Plan to discharge on amiodarone 200 mg BID Decrease Metoprolol succinate 150mg to 100mg daily as per Cardiology DM II HbA1C: 7.3 hold victoza Lantus/novolog per protocol glycemic pharmacy consult Multiple Myeloma recent dx, currently undergoing tx with Velcade, Revlimid and dexamethasone currently off revlimid for 7 days continue doxycycline and acyclovir last tx 09/29 Pancytopenia secondary to MM/Meds s/p 1 unit PRBC 09/30/21 monitor CBC, no s/sx of bleeding DVT Px: Eliquis Code Status FULL CODE Disposition Home Total Time Total Time Spent Total Time Spent (In Minutes): 45 minutes Discharge Plan Discharge Items Patient Disposition: Home - Self-Care Reason For Visit: ACUTE CHF Discharge Diagnosis: Acute heart failure with preserved ejection fraction Paroxysmal atrial fibrillation Acute kidney injury Activity: Per Instructions section Exercise/Sports: Gradually increase as tolerated Non-emergency contact: Primary Care Provider and Management Consultant Call non-emergency contact if: you have any medication questions, your symptoms worsen, your pain is concerning for you and you have a fever Follow-up/Referrals: Jeremías Lane DO [Management Consultant] - (Date & Time 10/08/2021 10:[address] DO Department Cardiology, [facility] ) Landen Macario DO [Primary Care Provider] - (Date & Time 10/08/2021 1:40 PM Provider Landen Macario DO Department [facility] ) Diet: Carb Consistent or DM2 and Heart Healthy Addtl Attending Provider Instructions: Follow up with your PCP on 10/08/2021 1:40 PM Follow up with your Management Consultant on 10/08/2021 10:00 AM Seek immediate medical attention if your symptoms reoccur or worsen Please take all medications as instructed on discharge list below. Please call if you have any questions or problems. You can reach a [facility] hospitalist on duty at [facility] 24 hours a day by calling [phone] Call your Primary Care doctor if any of the following symptoms or problems start or get worse: * Shortness of breath or difficulty breathing * Wake up at night short of breath * Chest pain * Cough * Swelling of your hands, feet, or legs * More fatigued or tired with your normal activity * Palpitations - sudden fast heart beats WEIGHT * Weigh yourself every morning after using the bathroom. * Use the same scale. * Wear the same amount of clothing. * Write your weight down on a chart. * Call your Primary Care doctor if you gain more than 2-3 pounds in 1-2 days. MEDICATIONS * Use this discharge instruction sheet for medication instructions. * Take your medications at the time your doctor ordered. * Do not skip a dose of your medicines. * If you miss a dose of medicine, take it as soon as possible, but DO NOT DOUBLE A DOSE. * Read your medicine information when you get home. * Know all of the side effects of your medicine. If in doubt, ask your pharmacist * Call your Primary Care doctor's office if you have any side effects. * Be sure all of your doctors know what medicine and herbs you take (including cold, flu, and herbal medicine). Take the following with you to your follow-up doctor appointments: * Weight Chart * Medication List * List of questions Do not drink excessive alcohol, beer or wine. Pending Studies at Discharge: No Stand-Alone Forms: [employer] Smoking Cessation Medications and DC Order Prescriptions: New torsemide 20 mg Tablet 20 mg PO QAM Qty: 30 RF: 0 amiodarone 200 mg Tablet 200 mg PO BID Qty: 60 RF: 0 docusate sodium [Colace] 100 mg capsule 100 mg PO BID PRN (Reason: constipation ) Qty: 30 RF: 0 polyethylene glycol 3350 [Miralax] 17 gram Powder In Packet 17 g PO DAILY PRN (Reason: constipation) Qty: 15 RF: 0 Continued acetaminophen [Tylenol Arthritis Pain] 650 mg tablet extended release 650 mg PO Q8H PRN (Reason: Pain) RF: 0 aspirin 81 mg tablet,delayed release (DR/EC) 81 mg PO DAILY RF: 0 omega-3 fatty acids [Fish Oil Concentrate] 1,000 mg capsule 1,000 mg PO BID RF: 0 atorvastatin 40 mg tablet 40 mg PO DAILY RF: 0 isosorbide mononitrate 30 mg tablet extended release 24 hr 30 mg PO DAILY RF: 0 metoprolol succinate 100 mg tablet extended release 24 hr 100 mg PO DAILY RF: 0 lisinopril 10 mg tablet 10 mg PO DAILY RF: 0 Basaglar GioikPen U-100 Insulin 100 unit/mL (3 mL) insulin pen 40 unit SUBCUT QPM RF: 0 Eliquis 5 mg tablet 5 mg PO BID RF: 0 trazodone 50 mg Tablet 50 mg PO HS PRN (Reason: sleep) RF: 0 prochlorperazine maleate 10 mg Tablet 10 mg PO Q6H PRN (Reason: nausea) RF: 0 tramadol 50 mg Tablet 50 mg PO Q6H PRN (Reason: nausea) RF: 0 ondansetron 8 mg Tablet,Disintegrating 8 mg PO Q8H PRN (Reason: Nausea) RF: 0 oxycodone-acetaminophen [Percocet] 5-325 mg Tablet 1 tab PO Q4H PRN (Reason: pain) RF: 0 doxycycline hyclate 100 mg Tablet 25 mg PO BID RF: 0 Victoza 2-Jed 0.6 mg/0.1 mL (18 mg/3 mL) Pen Injector 1.2 mg SUBCUT DAILY RF: 0 acyclovir 400 mg tablet 400 mg PO BID RF: 0 Revlimid 25 mg Capsule 25 mg PO DAILY RF: 0 Discontinued metoprolol succinate 50 mg tablet extended release 24 hr 50 mg PO HS RF: 0 Multaq 400 mg tablet 400 mg PO BIDM RF: 0 Discharge Orders: Discharge Order (Routine); Ordered 10/05/21 Ordered By: Bhavesh Woo/Other Patient Handouts: Managing Type 2 Diabetes Admission Data Admit Date/Time: 10/03/21 13:08 Attending Provider: Bhavesh Larsen Admit Provider: Josh Clifton Primary Care Provider: Landen Macario Other Providers: Jeremías Lane ; Josh Clifton
--- NOTE | 2021-10-05 14:21 | Electrocardiogram Report ---
Test Reason : Blood Pressure : / mmHG Vent. Rate : 062 BPM Atrial Rate : 062 BPM P-R Int : 258 ms QRS Dur : 096 ms QT Int : 474 ms P-R-T Axes : 005 061 044 degrees QTc Int : 481 ms Atrial-paced rhythm with prolonged AV conduction Septal infarct , age undetermined Abnormal ECG When compared with ECG of 01-OCT-2021 16:39, Nonspecific T wave abnormality no longer evident in Lateral leads Confirmed by Boubacar Mcginnis ([id number]) on 10/05/2021 2:21:02 PM Referred By: Jeremías Lane Confirmed By:Boubacar Mcginnis
== END 2021-10-05 13:56 | disposition home or self-care (01) | DRG 280 ==
LOC: ED 15:14 → EDINP 15:14 → SUATTDRO 17:41 → 2S 20:26

== ENCOUNTER 2021-10-08 16:00 | Observation (INO) ==
--- NOTE | 2021-10-08 17:26 | XRay Report ---
XR chest 1V portable HISTORY: 76 years-old Male DKA acute diabetic acidosis COMPARISON: Chest radiograph 10/01/2021 TECHNIQUE: Portable AP view of the chest FINDINGS: Cardiomegaly. Prior median sternotomy. Left subclavian pacer. No pneumothorax. Trace pleural effusion s. Pulmonary vascular congestion mildly improved interstitial coarsening. Degenerative changes of the shoulders and spine. IMPRESSION: Cardiomegaly with pulmonary vascular congestion and slightly improved interstitial coarse dominic suggestive of resolving pulmonary edema. ACT 112: Negative or not required by law. The above report was generated using voice recognition software. It may contain grammatical, syntax o r spelling errors. Electronically signed by: Uziel Nieto M.D. 10/08/2021 5:25 PM
[2021-10-08 17:36] LABS: Hematocrit (blood only) 37.4 % (42-52); Hemoglobin 12.3 g/dL (14.0-18.0); Immature Granulocytes # (auto) 0.04 K/uL (0.00-0.02); Immature Granulocytes % (auto) 0.3 %; Lymphocytes # (auto) 1.26 K/uL (1.2-3.4); Mean Corpuscular Hemoglobin 32.5 pg (25-34); Mean Corpuscular Hgb Conc 32.9 g/dL (32-36); Mean Corpuscular Volume 98.9 fL (80-100); Mean Platelet Volume 9.8 fL (7.4-10.4); Monocytes # (auto) 0.68 K/uL (0.11-0.59); Monocytes % (auto) 5.4 %; Neutrophils # (auto) 10.63 K/uL (1.4-6.5); Neutrophils % (auto) 84.3 %; Platelet Count 237 K/uL (130-400); RDW Coefficient of Variation 14.9 % (11.5-14.5); RDW Standard Deviation 53.2 fL (36.4-46.3); Red Blood Count 3.78 M/uL (4.7-6.1); White Blood Count 12.61 K/uL (4.8-10.8)
--- NOTE | 2021-10-08 17:40 | Emergency Department Note ---
Impression & Plan Acute hyperglycemia, Acute hyperkalemia, ABDI (acute kidney injury), Acute hyponatremia ED Provider Note NAME: DARREN CONNOLLY AGE: 76 SEX: M : 1945 ARRIVES VIA: Walk-In INFORMANT: Patient, ED PROVIDER(S): Dutch Saleem DO � CHIEF COMPLAINT: Weakness HPI: The patient is a 76-year-old male who presented to emergency department after seeing his family doctor. The patient had outpatient laboratory studies for a follow-up with his family doctor after being admitted to our facility. He was recently diagnosed with atrial fibrillation as well as heart failure. He states has been taking his usual medications. He was started on amiodarone. He states that he was also started on a fluid pill. He has not noticed any s welling in his legs. He is not noticed any orthopnea. He has noticed some generalized weakness and just not feeling well. He went to see his family doctor and had laboratory studies drawn. He was referred to the emergency department because of abnormal labs. He knows his kidney function may have been off as well as his glucose. He also thinks his potassium was elevated. He does not know the exact laboratory results. He has had no recent trauma. He has had no recent fevers. He states otherwise he feels baseline. ROS: See above HPI for pertinent positives & negatives. A total of 10 systems reviewed and were otherwise negative. PAST MEDICAL HISTORY: See Below PAST SURGICAL HISTORY: See Below FAMILY HISTORY: See Below SOCIAL HISTORY: See Below HOME MEDICATIONS: See Below ALLERGIES: See Below VITALS: See Below PHYSICAL EXAMINATION: GENERAL: Patient is awake alert in no acute distress patient is resting comfortably and showing no signs of anxiety EYES: The conjunctivae are clear. The pupils are round and reactive. EARS, NOSE, MOUTH AND THROAT: The nose is without any evidence of any deformity. Mucous membranes are moist. Tongue is midline. NECK: The neck is nontender and supple. RESPIRATORY: Diminished breath sounds are noted at both bases. There were no rales rhonchi or wheezing. There was no conversational dyspnea. CARDIOVASCULAR: Regular rate and rhythm noted there no murmurs rubs or gallops normal S1 normal S2. GASTROINTESTINAL: The abdomen is soft. Abdomen is nontender. MUSCULOSKELETAL/EXTREMITIES: There is no evidence of gross deformity full range of motion is noted in the hips and shoulders. SKIN: There is no obvious evidence of any rash. There are no petechiae, pallor or cyanosis noted. NEUROLOGIC: Patient is awake alert and oriented x3 MEDICAL DECISION MAKING: The patient is a 76-year-old male who presented to the emergency department for an evaluation of abnormal labs. The patient was found to have elevated blood sugar. He was also found to have elevated BUN and creatinine compared to baseline. The patient was treated with a small fluid bolus as well as IV insulin. I discussed the patient's laboratory and radiographic studies with him. Given his findings I also discussed his case with the on-call [facility] hospitalist. They have agreed to evaluate the patient in the emergency department for further management and disposition. Triage Nursing notes reviewed. Prior medical records reviewed Vital Signs: reviewed and remarkable for no significant abnormalities Differential diagnosis: Reactive airway disease, pneumonia, pneumothorax, COPD, CHF, infections, cardi ac ischemia, pulmonary embolism, musculoskeletal, gastrointestinal, as well as other pathologies. ER treatment provided: See below Diagnostics interpreted by me: ECG: KG was obtained in the emergency department. My interpretation is atrial paced with ventricular sensed rhythm at 80 bpm. Some marshall beats were noted. Nonspecific ST segment depressions were noted. This was compared to a tracing from October 052021. The presence of marshall beats was noted today oth erwise no changes. Cardiac Monitoring: An order was placed for continuous cardiac monitoring. The monitor shows a rate of 65 bpm with paced rhythm. Laboratory studies: As stated above and show below. Imaging studies: See below Consultation(s): I discussed this case with Dr. Diaz who is on-call for the [facility] group. He will evaluate the patient in the emergency department for further management and disposition. Past Med/Surg History Medical History Atrial fibrillation continue eliquis and high dose metoprolol CAD (coronary artery disease) Hallux rigidus of left foot "S/p multiple surgeries" History of basal cell carcinoma History of melanoma in situ History of pilonidal cyst HLD (hyperlipidemia) Pacemaker Peripheral vascular disease of lower extremity Tachy-noman syndrome Pt admitted for elective ppm due to TBS; underwent procedure without any complications; monitored overnight and discharged home. Type 2 diabetes mellitus Surgical History History of bone marrow biopsy History of cataract surgery History of foot surgery S/P CABG x 4 S/P Mohs surgery for basal cell carcinoma Family History Mother Lymphoma Social History Smoking Status: Never smoker Tobacco Type: Cigarettes Cigarettes Per Day: 1-2 times a month; Second Hand Exposure: No; Do You Dip or Chew Tobacco: No; Tobacco Cessation Education Requested by Patient: No Hx Alcohol Use: No Hx Substance Use: No Preferred Language: Guinean Communication Ability: Effective Billing Assistant Required: Voice Beliefs That Will Affect Care: None marital status: Current Living Situation: Family Other Information That Helps Us Care for You: No Feels Safe at Home: Yes Safety Concerns: Feels Safe At This Time Assistive Devices: None Allergies Allergies Allergy/AdvReac Type Severity Reaction Status Date / Time No Known Allergies Allergy Verified 10/08/21 19:56 Home Meds Home Medications Medication Instructions Recorded Confirmed acetaminophen 650 mg 650 mg PO Q8H PRN tab 09/28/19 10/08/21 tablet,extended release (Tylenol Arthritis Pain) aspirin 81 mg tablet,delayed 81 mg PO DAILY 09/28/19 10/08/21 release omega-3 fatty acids 1,000 mg 1,000 mg PO BID cap 09/28/19 10/08/21 capsule (Fish Oil Concentrate) apixaban 5 mg tablet (Eliquis) 5 mg PO BID 06/25/20 10/08/21 atorvastatin 40 mg tablet 40 mg PO DAILY 06/25/20 10/08/21 insulin glargine 100 unit/mL (3 40 unit SUBCUT QPM 06/25/20 10/08/21 mL) subcutaneous pen (Basaglar KwikPen U-100 Insulin) isosorbide mononitrate 30 mg 30 mg PO DAILY 06/25/20 10/08/21 tablet,extended release 24 hr lisinopril 10 mg tablet 10 mg PO DAILY 06/25/20 10/08/21 metoprolol succinate 100 mg 100 mg PO DAILY 06/25/20 10/08/21 tablet,extended release 24 hr liraglutide 0.6 mg/0.1 mL (18 mg/3 1.2 mg SUBCUT DAILY 09/30/21 10/08/21 mL) subcutaneous pen injector (Victoza 2-Jed) ondansetron 8 mg disintegrating 8 mg PO Q8H PRN 09/30/21 10/08/21 tablet oxycodone-acetaminophen 5 mg-325 1 tab PO Q4H PRN 09/30/21 10/08/21 mg tablet (Percocet) prochlorperazine maleate 10 mg 10 mg PO Q6H PRN 09/30/21 10/08/21 tablet tramadol 50 mg tablet 50 mg PO Q6H PRN 09/30/21 10/08/21 acyclovir 400 mg tablet 400 mg PO BID 10/01/21 10/08/21 lenalidomide 25 mg capsule 25 mg PO DAILY 10/01/21 10/08/21 (Revlimid) Previous Rx's Medication Instructions Recorded amiodarone 200 mg tablet 200 mg PO BID #60 tab 10/05/21 docusate sodium 100 mg capsule 100 mg PO BID PRN #30 cap 10/05/21 (Colace) polyethylene glycol 3350 17 gram 17 g PO DAILY PRN #15 ea 10/05/21 oral powder packet (Miralax) torsemide 20 mg tablet 20 mg PO QAM #30 tab 10/05/21 Results & Data (ED) Vital Signs Vital Signs - 24 hr 10/08/21 16:08 10/08/21 19:03 10/08/21 19:10 Temperature 36.5 C Temperature Source Skin Pulse Rate 70 63 64 Pulse Rate from SpO2 Sensor 64 64 Pulse Rhythm Regular Pulse Strength Normal Respiratory Rate 20 13 18 Respiratory Effort / Characteristics Non-Labored Spontaneous Respiratory Depth Normal Respiratory Pattern Regular Blood Pressure 151/67 H Blood Pressure Mean 95 Pulse Oximetry 98 99 98 Oxygen Delivery Method Room Air Room Air Room Air Sepsis Recent Fever Within 48 Hours No Sepsis New/Unexplained Change in Mental Status N/A Sepsis Action Taken by Nursing No Action Required 10/08/21 19:20 10/08/21 19:30 10/08/21 19:40 Temperature Temperature Source Pulse Rate 60 67 63 Pulse Rate from SpO2 Sensor 61 62 Pulse Rhythm Pulse Strength Respiratory Rate 10 L 15 15 Respiratory Effort / Characteristics Respiratory Depth Respiratory Pattern Blood Pressure Blood Pressure Mean Pulse Oximetry 98 98 Oxygen Delivery Method Room Air Room Air Room Air Sepsis Recent Fever Within 48 Hours Sepsis New/Unexplained Change in Mental Status Sepsis Action Taken by Nursing 10/08/21 19:50 10/08/21 20:00 Temperature Temperature Source Pulse Rate 73 64 Pulse Rate from SpO2 Sensor Pulse Rhythm Pulse Strength Respiratory Rate 18 21 Respiratory Effort / Characteristics Respiratory Depth Respiratory Pattern Blood Pressure 151/83 H Blood Pressure Mean 105 Pulse Oximetry Oxygen Delivery Method Room Air Room Air Sepsis Recent Fever Within 48 Hours Sepsis New/Unexplained Change in Mental Status Sepsis Action Taken by Assisted Medications Current Medication List: was personally reviewed by me Laboratory Data Attestation: I reviewed the patient's lab results. Result diagrams: 10/08/21 17:20 10/08/21 17:20 Lab Results 10/08/21 10/08/21 10/08/21 Range/Units 16:12 17:20 17:20 WBC 12.61 H (4.8-10.8) K/uL RBC 3.78 L (4.7-6.1) M/uL Hgb 12.3 L (14.0-18.0) g/dL Hct 37.4 L (42-52) % MCV 98.9 (80-100) fL MCH 32.5 (25-34) pg MCHC 32.9 (32-36) g/dL RDW Std Deviation 53.2 H (36.4-46.3) fL RDW Coeff of Collin 14.9 H (11.5-14.5) % Plt Count 237 (130-400) K/uL MPV 9.8 (7.4-10.4) fL Immature Gran % (Auto) 0.3 % Neut % (Auto) 84.3 % Lymph % (Auto) 10.0 % Stephens % (Auto) 5.4 % Eos % (Auto) 0.0 % Baso % (Auto) 0.0 % Neut # (Auto) 10.63 H (1.4-6.5) K/uL Lymph # (Auto) 1.26 (1.2-3.4) K/uL Stephens # (Auto) 0.68 H (0.11-0.59) K/uL Eos # (Auto) 0.00 (0-0.5) K/uL Baso # (Auto) 0.00 (0-0.2) K/uL Immature Gran # (Auto) 0.04 H (0.00-0.02) K/uL VBG pH (7.36-7.41) VBG pCO2 (38-50) mmHg VBG pO2 mmHg VBG HCO3 mmol/L VBG O2 Saturation % VBG Base Excess mEq/L Barometric Pressure mm/Hg Sodium 129 L (136-145) mmol/L Potassium 5.6 H (3.5-5.1) mmol/L Chloride 97 L (98-107) mmol/L Carbon Dioxide 21 (21-32) mmol/L Anion Gap 11.0 (3-11) BUN 49 H (7-18) mg/dl Creatinine 2.02 H (0.6-1.4) mg/dl Est Cr Clr Drug Dosing 33.7 ml/min Est GFR ( Amer) 36.3 ml/min Est GFR (Non-Af Amer) 31.3 ml/min BUN/Creatinine Ratio 24.2 H (10-20) Glucose 528 H* (70-99) mg/dl POC Glucose 523 H* (70-99) mg/dl Calcium 9.0 (8.5-10.1) mg/dl Total Bilirubin 0.5 (0.2-1) mg/dl AST 15 (15-37) U/L ALT 73 (12-78) Alkaline Phosphatase 222 H D (45-117) U/L NT-Pro-B Natriuret Pep 630 (0-900) pg/ml Total Protein 7.7 (6.4-8.2) gm/dl Albumin 3.9 (3.4-5.0) gm/dl Globulin 3.8 (2.5-4.0) gm/dl Albumin/Globulin Ratio 1.0 (0.9-2) Beta-Hydroxybutyric Acd 1.51 (0.2-2.81) mg/dl SARS-CoV-2, RNA, NAAT (NEGATIVE) 10/08/21 10/08/21 Range/Units 18:01 19:24 WBC (4.8-10.8) K/uL RBC (4.7-6.1) M/uL Hgb (14.0-18.0) g/dL Hct (42-52) % MCV (80-100) fL MCH (25-34) pg MCHC (32-36) g/dL RDW Std Deviation (36.4-46.3) fL RDW Coeff of Collin (11.5-14.5) % Plt Count (130-400) K/uL MPV (7.4-10.4) fL Immature Gran % (Auto) % Neut % (Auto) % Lymph % (Auto) % Stephens % (Auto) % Eos % (Auto) % Baso % (Auto) % Neut # (Auto) (1.4-6.5) K/uL Lymph # (Auto) (1.2-3.4) K/uL Stephens # (Auto) (0.11-0.59) K/uL Eos # (Auto) (0-0.5) K/uL Baso # (Auto) (0-0.2) K/uL Immature Gran # (Auto) (0.00-0.02) K/uL VBG pH 7.40 (7.36-7.41) VBG pCO2 35 L (38-50) mmHg VBG pO2 41 mmHg VBG HCO3 21 mmol/L VBG O2 Saturation 72.5 % VBG Base Excess -3.2 mEq/L Barometric Pressure 730.3 mm/Hg Sodium (136-145) mmol/L Potassium (3.5-5.1) mmol/L Chloride (98-107) mmol/L Carbon Dioxide (21-32) mmol/L Anion Gap (3-11) BUN (7-18) mg/dl Creatinine (0.6-1.4) mg/dl Est Cr Clr Drug Dosing ml/min Est GFR ( Amer) ml/min Est GFR (Non-Af Amer) ml/min BUN/Creatinine Ratio (10-20) Glucose (70-99) mg/dl POC Glucose (70-99) mg/dl Calcium (8.5-10.1) mg/dl Total Bilirubin (0.2-1) mg/dl AST (15-37) U/L ALT (12-78) Alkaline Phosphatase (45-117) U/L NT-Pro-B Natriuret Pep (0-900) pg/ml Total Protein (6.4-8.2) gm/dl Albumin (3.4-5.0) gm/dl Globulin (2.5-4.0) gm/dl Albumin/Globulin Ratio (0.9-2) Beta-Hydroxybutyric Acd (0.2-2.81) mg/dl SARS-CoV-2, RNA, NAAT NEGATIVE (NEGATIVE) Administered Medications Acyclovir (Acyclovir 400 Mg Tab) 400 mg PO BID [facility] Stop: 11/07/21 22:30 Last Admin: 10/09/21 00:01 Dose: 400 mg Documented by: [id number] Amiodarone HCl (Amiodarone 200 Mg Tab) 200 mg PO BID [facility] Stop: 11/07/21 22:30 Last Admin: 10/09/21 00:01 Dose: 200 mg Documented by: [id number] Apixaban (Apixaban 5 Mg Tablet) 5 mg PO BID [facility] Stop: 11/07/21 22:30 Last Admin: 10/09/21 00:01 Dose: 5 mg Documented by: [id number] Insulin Human Regular 250 (units/ Sodium Chloride) 250 mls @ 5 mls/hr IV .Q24H [facility]; Protocol Stop: 11/07/21 20:44 Last Titration: 10/08/21 23:55 Dose: 7 units/hr, 7 mls/hr Documented by: [id number] Cosigned by: [id number] Titration: 10/08/21 23:09 Dose: 5 units/hr, 5 mls/hr Documented by: [id number] Cosigned by: [id number] Titration: 10/08/21 22:00 Dose: 4.2 units/hr, 4.2 mls/hr Documented by: [id number] Cosigned by: [id number] Admin: 10/08/21 20:54 Dose: 3 units/hr, 3 mls/hr Documented by: [id number] Cosigned by: [id number] Sodium Chloride (Nss 1000ml) 1,000 mls @ 80 mls/hr IV .[id number] [facility] Stop: 11/07/21 22:30 Last Admin: 10/09/21 00:01 Dose: 80 mls/hr Documented by: [id number] Insulin Glargine (Insulin Glargine Solostar 100 Units/Ml 3 Ml Pen) 40 units SC HS [facility] Stop: 11/07/21 20:59 Last Admin: 10/08/21 22:04 Dose: 40 units Documented by: [id number] Cosigned by: [id number] Discontinued Medications Sodium Chloride (Nss 1000ml) 500 mls @ 999 mls/hr IV .Q31M ONE Stop: 10/08/21 19:04 Last Infusion: 10/08/21 19:36 Dose: 0 mls/hr Documented by: [id number] Admin: 10/08/21 19:03 Dose: 999 mls/hr Documented by: [id number] Insulin Aspart (Insulin Aspart 100 Units/Ml 3 Ml Pen) 0 units SC ACHS RIVERA Stop: 11/07/21 20:59 Last Admin: 10/08/21 22:37 Dose: Not Given Documented by: [id number] Cosigned by: [id number] Insulin Human Regular (Novolin-R Insulin Per Unit Charge) 6 units IV NOW STA Stop: 10/08/21 18:35 Last Admin: 10/08/21 19:03 Dose: 6 units Documented by: [id number] Cosigned by: [id number] Insulin Human Regular (Novolin-R Bolus From Bag) 3 units IV ONE ONE Stop: 10/08/21 20:46 Last Admin: 10/08/21 20:54 Dose: 3 units Documented by: [id number] Cosigned by: [id number] Miscellaneous (Stat Iv Infusion Titration Per Protocol) 1 ea N/A NOW STA Stop: 10/08/21 20:11 Last Admin: 10/08/21 20:54 Dose: 1 ea Documented by: [id number] Imaging Data Radiologist's Impression: Chest X-Ray 10/08/21 16:14 XR chest 1V portable HISTORY: 76 years-old Male DKA acute diabetic acidosis COMPARISON: Chest radiograph 10/01/2021 TECHNIQUE: Portable AP view of the chest FINDINGS: Cardiomegaly. Prior median sternotomy. Left subclavian pacer. No pneumothorax. Trace pleural effusions. Pulmonary vascular congestion mildly improved interstitial coarsening. Degenerative changes of the shoulders and spine. IMPRESSION: Cardiomegaly with pulmonary vascular congestion and slightly improved interstitial coarsening suggestive of resolving pulmonary edema. ACT 112: Negative or not required by law. The above report was generated using voice recognition software. It may contain grammatical, syntax or spelling errors. Electronically signed by: Uziel Nieto M.D. 10/08/2021 5:25 PM Discharge Plan Visit Data Chief Complaint: Abnormal Labs/Diagnostic Testing Stated Complaint: BLOOD SUGAR HIGH OVER 500, POTASSIUM HIGH, DR SENT ED Provider: Dutch Saleem Discharge Problem: Acute hyperglycemia, Acute hyperkalemia, ABDI (acute kidney injury), Acute hyponatremia Patient Disposition: Being Evaluated by Hospitalist Discharge Instructions Interventions: ED Discharge Assessment Last Done: 10/08/21 22:19
[2021-10-08 18:00] LABS: Albumin Level 3.9 gm/dl (3.4-5.0); BUN Creatinine Ratio 24.2 (10-20); Beta-Hydroxybutyrate 1.51 mg/dl (0.2-2.81); Bilirubin,Total 0.5 mg/dl (0.2-1); Creatinine Clr Calc Pharmacy 33.7 ml/min; Est GFR (African American) 36.3 ml/min; Est GFR (Non-African American) 31.3 ml/min; Globulin 3.8 gm/dl (2.5-4.0); Potassium 5.6 mmol/L (3.5-5.1); Total Protein 7.7 gm/dl (6.4-8.2)
[2021-10-08 18:11] LABS: Base Excess VBG -3.2 mEq/L; Oxygen Saturation VBG 72.5 %; pH VBG 7.4 (7.36-7.41)
[2021-10-08] MEDS ORDERED: SODIUM CHLORIDE 0.9% 1000ML 500 ML IV ONE (18:34)
[2021-10-08] MEDS ORDERED: NovoLIN-R INSULIN PER UNIT CHARGE IV STA (18:34)
[2021-10-08] MEDS ORDERED: STAT IV Infusion **Titration per Protocol STA (20:10)
[2021-10-08] MEDS ORDERED: PHARMACY GLYCEMIC MGMT CONSULT PRN ×2 (20:40→22:31)
[2021-10-08] MEDS ORDERED: GLUCOSE 40% GEL 15 GM TUBE PO PRN (20:45)
[2021-10-08] MEDS ORDERED: DEXTROSE 50% 50 ML SYRINGE IV PRN (20:45)
[2021-10-08] MEDS ORDERED: INSULIN REGULAR 250 UNITS in SODIUM CHLORIDE 0.9% 247.5 ML IV SCH ×2 (20:45→22:31)
[2021-10-08] MEDS ORDERED: CARBOHYDRATES FOR HYPOGLYCEMIA PO PRN (20:45)
[2021-10-08] MEDS ORDERED: GLUCAGON FOR INJ 1 MG VIAL IM PRN (20:45)
[2021-10-08] MEDS ORDERED: GLUCOSE 10 TABS/TUBE PO PRN (20:45)
[2021-10-08] MEDS ORDERED: NovoLIN-R BOLUS FROM BAG IV ONE (20:45)
[2021-10-08] MEDS ORDERED: INSULIN ASPART 100 UNITS/ML 3 ML PEN SC SCH (21:00)
[2021-10-08] MEDS: INSULIN GLARGINE SOLOSTAR 100 UNITS/ML 3 ML PEN SC SCH (22:04)
[2021-10-08] MEDS ORDERED: DOCUSATE SODIUM 100 MG CAP PO PRN (22:31)
[2021-10-08] MEDS ORDERED: INSULIN PROTOCOL GOAL RANGE ONE (22:31)
[2021-10-08] MEDS ORDERED: ACETAMINOPHEN 325 MG TAB PO PRN (22:31)
[2021-10-08] MEDS ORDERED: NITROGLYCERIN SL 0.4 MG/TAB TAB SL PRN (22:31)
[2021-10-08] MEDS ORDERED: ONDANSETRON INJ 2 MG/ML 2 ML VIAL IV PRN (22:31)
[2021-10-08] MEDS ORDERED: POLYETHYLENE (MIRALAX) 17 GM PACK PO PRN ×2 (22:31)
[2021-10-08] MEDS ORDERED: DC ALL PREVIOUSLY ORDERED DIABETES MEDS ONE (22:31)
[2021-10-08] MEDS ORDERED: MODERATE STRESS LEVEL ONE (22:31)
[2021-10-08] MEDS ORDERED: traMADol HCL 50 MG TABLET PO PRN (22:31)
[2021-10-08] MEDS ORDERED: oxyCODONE/ACETAMINOPHEN 5mg/325mg TAB PO PRN (22:31)
[2021-10-08] MEDS ORDERED: INSULIN ASPART PER UNIT SC SCH (22:31)
--- NOTE | 2021-10-08 23:48 | History and Physical Report ---
DATE OF ADMISSION: 10/08/2021 CHIEF COMPLAINT: Abnormal labs. HISTORY OF PRESENT ILLNESS: This is a 76-year-old male with past medical history significant for CAD with history of CABG 3 , tachybrady syndrome, status post pacemaker, paroxysmal atrial fibrillation, peripheral vascular disease, history of left popliteal occlusion, status post bypass in 2016, type 2 diabetes, hypertension, hyperlipidemia, recent diagnosis of multiple myeloma with lytic bone lesions, on chemo, recent diagnosis of acute systolic CHF with EF of around 45%, history of melanoma in situ, GERD, lives at home with his , comes because of abnormal labs. The patient was recently in the hospital for acute systolic CHF, improved with diuretics and discharged home. He was seen by primary doctor and outpatient labs showed worsening creatinine and hyperkalemia and was advised to come to the hospital. Also, his sugars are running high. In the ER, his sugars are 528, though not in DKA, potassium of 5.6, sodium was 129, creatinine was 2. His baseline creatinine was around 1.3 at the time of discharge. Currently, resting comfortably, hemodynamically stable. Denies any shortness of breath, no chest pain, no cough, no fevers, no headache, no dizziness, no blurred visions, no runny nose, brings up sometimes phlegm. Appetite is good. No difficulty swallowing. No nausea, no vomiting, no abdominal pain. Bowels are moving okay with stool softeners. No bloody stools or black stools, no hematuria. Sleeping okay. Otherwise, ambulating okay. No swelling in the legs currently. He says his sugars were low in the hospital, but it was never this high before. ALLERGIES: No known drug allergies. PAST MEDICAL HISTORY: As mentioned above. PAST SURGICAL HISTORY: CABG, colonoscopy, osteotomy of first metatarsal, open reduction and internal fixation of left foot MTP joint, IR biopsy, Mohs surgery, relieving of eye pressure bilaterally, removal of deep support implant, cataracts, total hip replacement. MEDICATIONS: The patient is on Tylenol 650 mg p.o. t.i.d. p.r.n., acyclovir 400 mg p.o. b.i.d., amiodarone 200 mg p.o. b.i.d., aspirin 81 mg p.o. daily, atorvastatin 40 mg p.o. daily, Basaglar insulin 40 units subcutaneously p.m., Colace 100 mg p.o. b.i.d. p.r.n., Eliquis 5 mg p.o. b.i.d., isosorbide mononitrate 30 mg p.o. daily, lisinopril 10 mg p.o. daily, metoprolol succinate 100 mg p.o. daily, fish oil 1000 mg p.o. b.i.d., Zofran 8 mg q.8 hours p.r.n., Percocet 1 tablet p.o. q.4 hours p.r.n., MiraLax 17 g p.o. daily p.r.n., prochlorperazine 10 mg p.o. q.6 hours p.r.n., Revlimid 25 mg p.o. daily, torsemide 20 mg p.o. a.m., tramadol 50 mg p.o. q.6 hours p.r.n., Victoza 1.2 mg subcutaneously daily. FAMILY HISTORY: Significant for mother had lymphoma, father had depression. SOCIAL HISTORY: . Former smoker, quit in , smoked 3 packs a day for 25 years. Occasional cigars. Alcohol rarely. No drug use. REVIEW OF SYSTEMS: As per HPI. Rest of the review of systems is negative. PHYSICAL EXAMINATION: GENERAL: The patient is of moderate build, not in acute distress. VITAL SIGNS: Temperature 36.5, pulse 64, respiratory rate 21, blood pressure 151/83, oxygen 98% on room air. HEENT: Pupils equal, round and reactive to light. Oral mucosa moist. NECK: No JVD, no neck masses. CARDIOVASCULAR: S1 and S2 heard. Regular rate and rhythm. No murmur, no gallop. RESPIRATORY SYSTEM: Normal AP diameter. No accessory muscle use. No wheezing, no crackles. ABDOMEN: Soft, bowel sounds present, nontender, no distention. CENTRAL NERVOUS SYSTEM: Cranial nerves II-XII grossly intact, nonfocal. EXTREMITIES: No edema, no erythema. LABORATORY DATA: WBC 12.6, hemoglobin 12.3, hematocrit 37.4, platelets 237. Venous blood gas; pH of 7.4, bicarbonate 21. Sodium 129, potassium 5.6, chloride 97, bicarbonate 21, BUN 49, creatinine 2.02, serum glucose 528, calcium 9, total bilirubin 0.5, AST 15, ALT 73, alkaline phosphatase 222. BNP 630. Beta-hydroxybutyric acid 1.4. SARS-CoV-2 negative. IMAGING DATA: Chest x-ray: Cardiomegaly with pulmonary vascular congestion, slightly improved interstitial coarsening suggestive of resolving pulmonary edema. EKG: Undetermined rhythm, nonspecific ST-T abnormality, rate of 88. ASSESSMENT AND PLAN: This 76-year-old male presents with abnormal laboratories. 1. Abnormal laboratories with hyperkalemia, hyperglycemia, and hyponatremia. Hyponatremia, sodium of 129, most likely pseudohyponatremia from hyperglycemia. We will hold his home diabetic medication, place him on IV insulin and monitor the laboratories closely. We will place him on gentle fluids with normal saline at 80 mL per hour and monitor for any volume overload. The patient was recently admitted for congestive heart failure. Glycemic pharmacy consult to help with insulin regimen. Closely monitor in the med-telemetry. 2. Acute kidney injury. Baseline creatinine 1.3, presents with creatinine of 2. Getting fluids. Avoid any nephrotoxic agents. Follow the laboratories. 3. Hyperkalemia. Potassium of 5.6. We will hold lisinopril and currently holding diuretics. Currently getting IV insulin drip. We will follow the repeat laboratories. 4. Chronic systolic congestive heart failure with ejection fraction of 45%-50% on recent admission. Holding diuretics and lisinopril. Monitor the blood sugars. 5. History of atrial fibrillation, rate controlled with metoprolol,amiodarone, on Eliquis. 6. Coronary artery disease, status post coronary artery bypass grafting. Continue aspirin, statin,metoprolol, isosorbide mononitrate. 7. Tachybrady syndrome, status post pacemaker, currently on amiodarone and Toprol-XL. 8. Multiple myeloma, recent diagnosis. Currently undergoing treatment with Velcade and Revlimid. Continue acyclovir 9. History of pancytopenia secondary to multiple myeloma. Currently, hemoglobin is 12.3, platelets are okay, and white count is okay. 10. Deep venous thrombosis prophylaxis, on Eliquis. DISPOSITION: Closely monitor in the med tele. PT/OT prior to discharge. Social service to help with discharge planning. Job ID: [id number] [facility]
[2021-10-09] MEDS: AMIODARONE 200 MG TAB PO SCH ×3 (00:01→21:01)
[2021-10-09] MEDS: ACYCLOVIR 400 MG TAB PO SCH ×3 (00:01→21:00)
[2021-10-09] MEDS: SODIUM CHLORIDE 0.9% 1000ML 1,000 ML IV SCH ×2 (00:01→20:56)
[2021-10-09] MEDS: APIXABAN 5 MG TABLET PO SCH ×3 (00:01→21:02)
[2021-10-09 06:22] LABS: BUN Creatinine Ratio 30.8 (10-20); Calcium 8.8 mg/dl (8.5-10.1); Creatinine Clr Calc Pharmacy 47.9 ml/min; Est GFR (African American) 55.6 ml/min; Potassium 5.1 mmol/L (3.5-5.1)
[2021-10-09 07:50] LABS: Estimated Average Glucose 166 mg/dl; Hemoglobin A1C 7.4 % (4.5-5.6)
[2021-10-09] MEDS: ISOSORBIDE MONO EXTENDED REL 30 MG TABCR PO SCH (09:03)
[2021-10-09] MEDS: ASPIRIN 81 MG ECTAB PO SCH (09:05)
[2021-10-09] MEDS: ATORVASTATIN 40 MG TAB PO SCH (09:09)
[2021-10-09] MEDS: METOPROLOL SUCC 50MG EXT REL TAB PO SCH (09:10)
[2021-10-09] MEDS: INSULIN ASPART PER UNIT SC SCH ×4 (09:21→20:52)
[2021-10-09 09:24] LABS: BUN Creatinine Ratio 31.4 (10-20); Calcium 8.4 mg/dl (8.5-10.1); Creatinine Clr Calc Pharmacy 52.3 ml/min; Est GFR (African American) 61.9 ml/min; Est GFR (Non-African American) 53.4 ml/min; Potassium 4.8 mmol/L (3.5-5.1)
[2021-10-09 13:52] LABS: BUN Creatinine Ratio 31.5 (10-20); Calcium 8.1 mg/dl (8.5-10.1); Creatinine Clr Calc Pharmacy 56.2 ml/min; Est GFR (African American) 67.5 ml/min; Est GFR (Non-African American) 58.2 ml/min; Potassium 4.6 mmol/L (3.5-5.1)
[2021-10-09] MEDS ORDERED: INSULIN GLARGINE SOLOSTAR 100 UNITS/ML 3 ML PEN SC ONE (14:15)
--- NOTE | 2021-10-09 14:57 | Pharmacy Report ---
Pharmacy Glycemic Short Note 2 - Date of Service October 09, 2021 - Glycemic Short BSG Results (Last 24 hours): 10/08/21 10/08/21 10/08/21 16:12 17:20 20:22 Glucose 528 H* POC Glucose 523 H* 348 H* 10/08/21 10/08/21 10/08/21 21:55 22:59 23:56 Glucose POC Glucose 377 H* 331 H* 357 H* 10/09/21 10/09/21 10/09/21 00:58 02:03 03:03 Glucose POC Glucose 323 H* 251 H 185 H 10/09/21 10/09/21 10/09/21 04:02 05:00 05:35 Glucose 115 H POC Glucose 161 H 120 H 10/09/21 10/09/21 10/09/21 06:02 07:17 08:08 Glucose POC Glucose 120 H 118 H 102 H 10/09/21 10/09/21 10/09/21 08:50 12:15 13:16 Glucose 104 H POC Glucose 159 H 132 H 10/09/21 13:20 Glucose 133 H POC Glucose OUTPATIENT ANTIDIABETIC REGIMEN: * Basaglar 40 units HS * Victoza 1.2mg SQ Daily ASSESSMENT: * 76 year old admitted with abnormal labs, hyperkalemic, hyponatremic, likely due to hyperglycemia, started on insulin drip last night. * Labs normalized, gap closed, insulin drip running consistently around 2.5units/hr, BSG at goal. * Home dose of basal on board, will give another supplemental dose and transition off of insulin drip at 1700 today. * Add overnight blood sugar checks to ensure euglycemia with recent insulin drip use. PLAN FOR INPATIENT GLYCEMIC CONTROL: * Hold outpatient Victoza * IV insulin infusion, DC at 1700 * Basal insulin * Lantus 40 units SQ HS * Lantus 10 units SQ x 1 now * Bolus insulin * NovoLog per scale ACHS + overnight tonight at 0000 and 0400 * Goal Range: Low 110 mg/dL - High 140 mg/dL * Correction Factor: 12 mg/dL/unit * Nutritional / Prandial insulin per carb ratio of 1 unit per 4 grams CHO consumed PLAN FOR DISCHARGE: * A1c 7.4%, no changes needed for patient's age and comorbidities.
--- NOTE | 2021-10-09 15:27 | Hospitalist Progress Note ---
Date of Service October 09, 2021 Assessment & Plan (1) Acute hyperglycemia: (2) Acute hyperkalemia: (3) ABDI (acute kidney injury): Plan: Abnormal laboratories with hyperkalemia, hyperglycemia, and hyponatremia.� ABDI Pseudohyponatremia due to hyperglycemia. Hyperkalemia is resolved. Discontinue saline drip and IV fluids. Patient has normal anion gap. Baseline creatinine 1.3, presents with creatinine of 2.� Avoid any nephrotoxic agents.� ABDI is resolved Chronic systolic congestive heart failure with ejection fraction of 45%-50% on recent admission.� Euvolemic. Diuretics on hold for now. Discussed with vp product marketing Dr. Lin. Recommend discharging on lower dose of torsemide at 10 mg daily. Patient to follow-up with cardiology outpatient. Recommend to hold lisinopril even on discharge for now due to ABDI and hyperkalem ia History of atrial fibrillation, rate controlled with metoprolol,amiodarone,� on Eliquis. Coronary artery disease, status post coronary artery bypass grafting.� Continue aspirin, statin,metoprolol, isosorbide mononitrate. Tachybrady syndrome, status post pacemaker, currently on amiodarone and Toprol- XL. Multiple myeloma, recent diagnosis. Currently undergoing treatment with Velcade and Revlimid.� Continue acyclovir History of pancytopenia secondary to multiple myeloma.� Currently, hemoglobin is 12.3, platelets are okay, and white count is okay. Deep venous thrombosis prophylaxis, on Eliquis. Possible discharge tomorrow Admission and Anticipated Discharge Date Admission Date: October 08, 2021 Subjective Patient seen and examined. Denies any complaints Review of Systems Constitutional: no fever, no chills and no fatigue Eyes: no diplopia and no eye pain Ear, Nose, Mouth, Throat: no ear discharge, no hearing loss, no dizziness and no sore throat Respiratory: no cough, no dyspnea and no wheezing Cardiovascular: no chest pain, no dyspnea, no dyspnea on exertion and no palpitations Gastrointestinal: no abdominal pain, no nausea and no vomiting Genitourinary: no dysuria, no difficulty urinating or no urinary frequency Musculoskeletal: No pedal edema Neurologic: no dizziness and no headache(s) Physical Exam Constitutional: + well hydrated; no acute distress Eyes: PERRL, conjunctivae normal, anicteric sclerae ENMT: external ear and nose normal, oropharynx normal Respiratory: normal respiratory effort, lungs clear to auscultation Cardiovascular: Rate/Rhythm: regular rate and regular rhythm S1-S2 Gastrointestinal (Abdomen): normal bowel sounds, soft, nontender, no hepatosplenomegaly Musculoskeletal: no cyanosis or clubbing, extremities motor strength 5/5 No pedal edema Neurologic: PERRL, EOMI, accommodation nl, no face palsy, no dysarthria Psychiatric: A+Ox3, euthymic affect Results & Data Results & Data ([facility]) Vital Signs (Past 12 Hours) Vital Signs Pulse Resp 10/09/21 03:40 60 12 10/09/21 03:30 61 14 Laboratory Results Abnormal lab results 10/08/21 10/08/21 10/08/21 Range/Units 17:20 17:20 18:01 WBC 12.61 H (4.8-10.8) K/uL RBC 3.78 L (4.7-6.1) M/uL Hgb 12.3 L (14.0-18.0) g/dL Hct 37.4 L (42-52) % RDW Std Deviation 53.2 H (36.4-46.3) fL RDW Coeff of Collin 14.9 H (11.5-14.5) % Neut # (Auto) 10.63 H (1.4-6.5) K/uL Sutter # (Auto) 0.68 H (0.11-0.59) K/uL Immature Gran # (Auto) 0.04 H (0.00-0.02) K/uL VBG pCO2 35 L (38-50) mmHg Sodium 129 L (136-145) mmol/L Potassium 5.6 H (3.5-5.1) mmol/L Chloride 97 L (98-107) mmol/L BUN 49 H (7-18) mg/dl Creatinine 2.02 H (0.6-1.4) mg/dl BUN/Creatinine Ratio 24.2 H (10-20) Glucose 528 H* (70-99) mg/dl POC Glucose (70-99) mg/dl Hemoglobin A1c (4.5-5.6) % Calcium (8.5-10.1) mg/dl Alkaline Phosphatase 222 H D (45-117) U/L 10/08/21 10/08/21 10/08/21 Range/Units 20:22 21:55 22:59 WBC (4.8-10.8) K/uL RBC (4.7-6.1) M/uL Hgb (14.0-18.0) g/dL Hct (42-52) % RDW Std Deviation (36.4-46.3) fL RDW Coeff of Collin (11.5-14.5) % Neut # (Auto) (1.4-6.5) K/uL Sutter # (Auto) (0.11-0.59) K/uL Immature Gran # (Auto) (0.00-0.02) K/uL VBG pCO2 (38-50) mmHg Sodium (136-145) mmol/L Potassium (3.5-5.1) mmol/L Chloride (98-107) mmol/L BUN (7-18) mg/dl Creatinine (0.6-1.4) mg/dl BUN/Creatinine Ratio (10-20) Glucose (70-99) mg/dl POC Glucose 348 H* 377 H* 331 H* (70-99) mg/dl Hemoglobin A1c (4.5-5.6) % Calcium (8.5-10.1) mg/dl Alkaline Phosphatase (45-117) U/L 10/08/21 10/09/21 10/09/21 Range/Units 23:56 00:58 02:03 WBC (4.8-10.8) K/uL RBC (4.7-6.1) M/uL Hgb (14.0-18.0) g/dL Hct (42-52) % RDW Std Deviation (36.4-46.3) fL RDW Coeff of Collin (11.5-14.5) % Neut # (Auto) (1.4-6.5) K/uL Sutter # (Auto) (0.11-0.59) K/uL Immature Gran # (Auto) (0.00-0.02) K/uL VBG pCO2 (38-50) mmHg Sodium (136-145) mmol/L Potassium (3.5-5.1) mmol/L Chloride (98-107) mmol/L BUN (7-18) mg/dl Creatinine (0.6-1.4) mg/dl BUN/Creatinine Ratio (10-20) Glucose (70-99) mg/dl POC Glucose 357 H* 323 H* 251 H (70-99) mg/dl Hemoglobin A1c (4.5-5.6) % Calcium (8.5-10.1) mg/dl Alkaline Phosphatase (45-117) U/L 10/09/21 10/09/21 10/09/21 Range/Units 03:03 04:02 05:00 WBC (4.8-10.8) K/uL RBC (4.7-6.1) M/uL Hgb (14.0-18.0) g/dL Hct (42-52) % RDW Std Deviation (36.4-46.3) fL RDW Coeff of Collin (11.5-14.5) % Neut # (Auto) (1.4-6.5) K/uL Sutter # (Auto) (0.11-0.59) K/uL Immature Gran # (Auto) (0.00-0.02) K/uL VBG pCO2 (38-50) mmHg Sodium (136-145) mmol/L Potassium (3.5-5.1) mmol/L Chloride (98-107) mmol/L BUN (7-18) mg/dl Creatinine (0.6-1.4) mg/dl BUN/Creatinine Ratio (10-20) Glucose (70-99) mg/dl POC Glucose 185 H 161 H 120 H (70-99) mg/dl Hemoglobin A1c (4.5-5.6) % Calcium (8.5-10.1) mg/dl Alkaline Phosphatase (45-117) U/L 10/09/21 10/09/21 10/09/21 Range/Units 05:35 05:35 06:02 WBC (4.8-10.8) K/uL RBC (4.7-6.1) M/uL Hgb (14.0-18.0) g/dL Hct (42-52) % RDW Std Deviation (36.4-46.3) fL RDW Coeff of Collin (11.5-14.5) % Neut # (Auto) (1.4-6.5) K/uL Sutter # (Auto) (0.11-0.59) K/uL Immature Gran # (Auto) (0.00-0.02) K/uL VBG pCO2 (38-50) mmHg Sodium (136-145) mmol/L Potassium (3.5-5.1) mmol/L Chloride 108 H (98-107) mmol/L BUN 44 H (7-18) mg/dl Creatinine 1.42 H D (0.6-1.4) mg/dl BUN/Creatinine Ratio 30.8 H (10-20) Glucose 115 H (70-99) mg/dl POC Glucose 120 H (70-99) mg/dl Hemoglobin A1c 7.4 H (4.5-5.6) % Calcium (8.5-10.1) mg/dl Alkaline Phosphatase (45-117) U/L 10/09/21 10/09/21 10/09/21 Range/Units 07:17 08:08 08:50 WBC (4.8-10.8) K/uL RBC (4.7-6.1) M/uL Hgb (14.0-18.0) g/dL Hct (42-52) % RDW Std Deviation (36.4-46.3) fL RDW Coeff of Collin (11.5-14.5) % Neut # (Auto) (1.4-6.5) K/uL Sutter # (Auto) (0.11-0.59) K/uL Immature Gran # (Auto) (0.00-0.02) K/uL VBG pCO2 (38-50) mmHg Sodium (136-145) mmol/L Potassium (3.5-5.1) mmol/L Chloride 110 H (98-107) mmol/L BUN 41 H (7-18) mg/dl Creatinine (0.6-1.4) mg/dl BUN/Creatinine Ratio 31.4 H (10-20) Glucose 104 H (70-99) mg/dl POC Glucose 118 H 102 H (70-99) mg/dl Hemoglobin A1c (4.5-5.6) % Calcium 8.4 L (8.5-10.1) mg/dl Alkaline Phosphatase (45-117) U/L 10/09/21 10/09/21 10/09/21 Range/Units 12:15 13:16 13:20 WBC (4.8-10.8) K/uL RBC (4.7-6.1) M/uL Hgb (14.0-18.0) g/dL Hct (42-52) % RDW Std Deviation (36.4-46.3) fL RDW Coeff of Collin (11.5-14.5) % Neut # (Auto) (1.4-6.5) K/uL Sutter # (Auto) (0.11-0.59) K/uL Immature Gran # (Auto) (0.00-0.02) K/uL VBG pCO2 (38-50) mmHg Sodium (136-145) mmol/L Potassium (3.5-5.1) mmol/L Chloride 111 H (98-107) mmol/L BUN 38 H (7-18) mg/dl Creatinine (0.6-1.4) mg/dl BUN/Creatinine Ratio 31.5 H (10-20) Glucose 133 H (70-99) mg/dl POC Glucose 159 H 132 H (70-99) mg/dl Hemoglobin A1c (4.5-5.6) % Calcium 8.1 L (8.5-10.1) mg/dl Alkaline Phosphatase (45-117) U/L 10/09/21 10/09/21 Range/Units 14:44 15:57 WBC (4.8-10.8) K/uL RBC (4.7-6.1) M/uL Hgb (14.0-18.0) g/dL Hct (42-52) % RDW Std Deviation (36.4-46.3) fL RDW Coeff of Collin (11.5-14.5) % Neut # (Auto) (1.4-6.5) K/uL Sutter # (Auto) (0.11-0.59) K/uL Immature Gran # (Auto) (0.00-0.02) K/uL VBG pCO2 (38-50) mmHg Sodium (136-145) mmol/L Potassium (3.5-5.1) mmol/L Chloride (98-107) mmol/L BUN (7-18) mg/dl Creatinine (0.6-1.4) mg/dl BUN/Creatinine Ratio (10-20) Glucose (70-99) mg/dl POC Glucose 168 H 127 H (70-99) mg/dl Hemoglobin A1c (4.5-5.6) % Calcium (8.5-10.1) mg/dl Alkaline Phosphatase (45-117) U/L
[2021-10-09] MEDS ORDERED: [UNRECOGNIZED DRUG - REMARK] ONE (17:00)
[2021-10-09 17:34] LABS: BUN Creatinine Ratio 28.7 (10-20); Calcium 8.2 mg/dl (8.5-10.1); Creatinine Clr Calc Pharmacy 49.6 ml/min; Est GFR (African American) 58.1 ml/min; Est GFR (Non-African American) 50.1 ml/min; Potassium 4.9 mmol/L (3.5-5.1)
[2021-10-09] MEDS: INSULIN GLARGINE SOLOSTAR 100 UNITS/ML 3 ML PEN SC SCH (21:03)
[2021-10-10] MEDS: INSULIN ASPART PER UNIT SC SCH ×4 (00:15→12:26)
[2021-10-10] MEDS: SODIUM CHLORIDE 0.9% 1000ML 1,000 ML IV SCH (01:01)
--- NOTE | 2021-10-10 07:12 | Electrocardiogram Report ---
Test Reason : Blood Pressure : / mmHG Vent. Rate : 088 BPM Atrial Rate : 088 BPM P-R Int : 000 ms QRS Dur : 120 ms QT Int : 374 ms P-R-T Axes : -20 068 -53 degrees QTc Int : 452 ms AV dual-paced rhythm with frequent Premature ventricular complexes in a pattern of bigeminy Abnormal ECG When compared with ECG of 05-OCT-2021 06:20, AV dual-paced complexes are now Present Confirmed by Juan M Akhtar ([id number]) on 10/10/2021 7:12:19 AM Referred By: Landen Macario Confirmed By:Juan M Akhtar
--- NOTE | 2021-10-10 07:57 | Electrocardiogram Report ---
Test Reason : Blood Pressure : / mmHG Vent. Rate : 080 BPM Atrial Rate : 080 BPM P-R Int : 210 ms QRS Dur : 158 ms QT Int : 464 ms P-R-T Axes : 022 269 078 degrees QTc Int : 535 ms AV dual-paced rhythm with prolonged AV conduction Abnormal ECG When compared with ECG of 08-OCT-2021 17:17, Premature ventricular complexes are no longer Present Confirmed by Juan M Akhtar ([id number]) on 10/10/2021 7:57:29 AM Referred By: Landen Macario Confirmed By:Juan M Akhtar
--- NOTE | 2021-10-10 07:59 | Electrocardiogram Report ---
Test Reason : Blood Pressure : / mmHG Vent. Rate : 063 BPM Atrial Rate : 535 BPM P-R Int : 000 ms QRS Dur : 098 ms QT Int : 434 ms P-R-T Axes : 000 067 144 degrees QTc Int : 444 ms Atrial-paced rhythm T wave abnormality, consider anterior ischemia Abnormal ECG When compared with ECG of 09-OCT-2021 02:15, Ventricular pacing is no longer present Confirmed by Juan M Akhtar ([id number]) on 10/10/2021 7:59:40 AM Referred By: Landen Macario Confirmed By:Juan M Akhtar
--- NOTE | 2021-10-10 08:03 | Electrocardiogram Report ---
Test Reason : Blood Pressure : / mmHG Vent. Rate : 066 BPM Atrial Rate : 066 BPM P-R Int : 256 ms QRS Dur : 100 ms QT Int : 436 ms P-R-T Axes : 016 063 148 degrees QTc Int : 457 ms Atrial-paced rhythm with prolonged AV conduction Abnormal ECG When compared with ECG of 09-OCT-2021 02:22, No significant change Confirmed by Juan M Akhtar ([id number]) on 10/10/2021 8:03:06 AM Referred By: Landen Macario Confirmed By:Juan M Akhtar
[2021-10-10] MEDS: ASPIRIN 81 MG ECTAB PO SCH (08:47)
[2021-10-10] MEDS: APIXABAN 5 MG TABLET PO SCH (08:47)
[2021-10-10] MEDS: METOPROLOL SUCC 50MG EXT REL TAB PO SCH (08:47)
[2021-10-10] MEDS: ISOSORBIDE MONO EXTENDED REL 30 MG TABCR PO SCH (08:47)
[2021-10-10] MEDS: AMIODARONE 200 MG TAB PO SCH (08:48)
[2021-10-10] MEDS: ACYCLOVIR 400 MG TAB PO SCH (08:48)
[2021-10-10] MEDS: ATORVASTATIN 40 MG TAB PO SCH (08:49)
[2021-10-10 09:12] LABS: BUN Creatinine Ratio 22.1 (10-20); Calcium 8.1 mg/dl (8.5-10.1); Creatinine Clr Calc Pharmacy 54.4 ml/min; Est GFR (African American) 64.9 ml/min; Potassium 4.6 mmol/L (3.5-5.1)
--- NOTE | 2021-10-10 09:49 | Discharge Summary ---
Date of Service October 10, 2021 Admission HPI Per Admitting Provider This is a 76-year-old male with past medical history significant for CAD with history of CABG 3 , tachybrady syndrome, status post pacemaker, paroxysmal atrial fibrillation, peripheral vascular disease, history of left popliteal occlusion, status post bypass in 2016, type 2 diabetes, hypertension, hyperlipidemia, recent diagnosis of multiple myeloma with lytic bone lesions, on chemo, recent diagnosis of acute systolic CHF with EF of around 45%, history of melanoma in situ, GERD, lives at home with his , comes because of abnormal labs.� The patient was recently in the hospital for acute systolic CHF, improved with diuretics and discharged home.� He was seen by primary doctor and outpatient labs showed worsening creatinine and hyperkalemia and was advised to come to the hospital.� Also, his sugars are running high. In the ER, his sugars are 528, though not in DKA, potassium of 5.6, sodium was 129, creatinine was 2.� His baseline creatinine was around 1.3 at the time of discharge.� Currently, resting comfortably, hemodynamically stable.� Denies any shortness of breath, no chest pain, no cough, no fevers, no headache, no dizziness, no blurred visions, no runny nose, brings up sometimes phlegm.� Appetite is good.� No difficulty swallowing.� No nausea, no vomiting, no abdominal pain.� Bowels are moving okay with stool softeners.� No bloody stools or black stools, no hematuria.� Sleeping okay.� Otherwise, ambulating okay.� No swelling in the legs currently.� He says his sugars were low in the hospital, but it was never this high before. � Admission Exam Per Admitting Provider GENERAL:� The patient is of moderate build, not in acute distress. VITAL SIGNS:� Temperature 36.5, pulse 64, respiratory rate 21, blood pressure 151/83, oxygen 98% on room air. HEENT:� Pupils equal, round and reactive to light.� Oral mucosa moist. NECK:� No JVD, no neck masses. CARDIOVASCULAR:� S1 and S2 heard.� Regular rate and rhythm.� No murmur, no gallop. RESPIRATORY SYSTEM:� Normal AP diameter.� No accessory muscle use.� No wheezing, no crackles. ABDOMEN:� Soft, bowel sounds present, nontender, no distention. CENTRAL NERVOUS SYSTEM:� Cranial nerves II-XII grossly intact, nonfocal. EXTREMITIES:� No edema, no erythema. Principal Diagnosis Acute Kidney Injury Hyperkalemia Discharge Exam Constitutional + well hydrated; no acute distress Eyes PERRL, conjunctivae normal, anicteric sclerae ENMT external ear and nose normal, oropharynx normal Respiratory normal respiratory effort, lungs clear to auscultation Cardiovascular Rate/Rhythm: regular rate and regular rhythm S1 S2 Gastrointestinal (Abdomen) normal bowel sounds, soft, nontender, no hepatosplenomegaly Musculoskeletal no cyanosis or clubbing, extremities motor strength 5/5 No pedal edema Neurologic PERRL, EOMI, accommodation nl, no face palsy, no dysarthria Psychiatric A+Ox3, euthymic affect Discharge Data Allergies Allergy/AdvReac Type Severity Reaction Status Date / Time No Known Allergies Allergy Verified 10/08/21 19:56 Consultations 10/08/21 19:19 ED Decision to Admit Stat Hospital Course (1) Acute hyperglycemia: (2) Acute hyperkalemia: (3) ABDI (acute kidney injury): Abnormal laboratories with hyperkalemia, hyperglycemia, and hyponatremia.� ABDI Pseudohyponatremia due to hyperglycemia. ( Na was 129, Corrected Na was 136) Hyperkalemia is resolved. Patient has normal anion gap. Baseline creatinine 1.3, presented with creatinine of 2.� Diuretics were briefly held and ABDI resolved. Cr 1.25 today Chronic systolic congestive heart failure with ejection fraction of 45%-50% on recent admission.� Euvolemic. Discussed with cap and stud machine operator Dr. Lin. Recommend discharging on lower dose of torsemide at 10 mg daily. Patient to follow-up with cardiology outpatient. Recommend to stop lisinopril even on discharge for now due to ABDI and hyperkalemia History of atrial fibrillation, rate controlled with metoprolol,amiodarone,� on Eliquis. Coronary artery disease, status post coronary artery bypass grafting.� Continue aspirin, statin,metoprolol, isosorbide mononitrate. Tachybrady syndrome, status post pacemaker, currently on amiodarone and Toprol- XL. Multiple myeloma, recent diagnosis. Currently undergoing treatment with Velcade and Revlimid.� Continue acyclovir History of pancytopenia secondary to multiple myeloma.� Currently, hemoglobin is 12.3, platelets are okay, and white count is okay. Deep venous thrombosis prophylaxis, on Eliquis. Total Time Total Time Spent Total Time Spent (In Minutes): 40 Total Time Includes: Examination of the Patient, Discharge Planning, Medication Reconciliation and Communication With Other Providers Discharge Plan Discharge Items Patient Disposition: Home - Self-Care Reason For Visit: ABNORMAL LABS Discharge Diagnosis: Acute Kidney Injury Hyperkalemia Activity: Resume your previous activity Non-emergency contact: Primary Care Provider and [employer] Call non-emergency contact if: you have any medication questions Follow-up/Referrals: Landen Macario, [Primary Care Provider] - Diet: Carb Consistent or DM2 and Heart Healthy Addtl Attending Provider Instructions: Mr Hernandez You were sent to the hospital due to abnormal labs. On presentation, your lab work showed acute kidney injury and elevated potassium level. You were managed and those issues are resolved. Some medication adjustments were made as we discussed until you follow up with your Primary Doctor and [employer]. Please stop taking Lisinopril for now. Your torsemide was reduced to 10mg tabs daily. Your [employer] and Primary Doctor will repeat your lab work outpatient to monitor. Please continue to take your other medications as prescribed. It was a pleasure taking care of you. Please ensure you contact your [employer]/Primary Doctor for appointment Please follow up already scheduled appointment with your Oncologist. Pending Studies at Discharge: No Stand-Alone Forms: My [facility], Smoking Cessation Medications and DC Order Prescriptions: Continued acetaminophen [Tylenol Arthritis Pain] 650 mg tablet extended release 650 mg PO Q8H PRN (Reason: Pain) RF: 0 aspirin 81 mg tablet,delayed release (DR/EC) 81 mg PO DAILY RF: 0 omega-3 fatty acids [Fish Oil Concentrate] 1,000 mg capsule 1,000 mg PO BID RF: 0 atorvastatin 40 mg tablet 40 mg PO DAILY RF: 0 isosorbide mononitrate 30 mg tablet extended release 24 hr 30 mg PO DAILY RF: 0 metoprolol succinate 100 mg tablet extended release 24 hr 100 mg PO DAILY RF: 0 Basaglar KwikPen U-100 Insulin 100 unit/mL (3 mL) insulin pen 40 unit SUBCUT QPM RF: 0 Eliquis 5 mg tablet 5 mg PO BID RF: 0 prochlorperazine maleate 10 mg Tablet 10 mg PO Q6H PRN (Reason: nausea) RF: 0 tramadol 50 mg Tablet 50 mg PO Q6H PRN (Reason: nausea) RF: 0 ondansetron 8 mg Tablet,Disintegrating 8 mg PO Q8H PRN (Reason: Nausea) RF: 0 oxycodone-acetaminophen [Percocet] 5-325 mg Tablet 1 tab PO Q4H PRN (Reason: pain) RF: 0 Victoza 2-Jed 0.6 mg/0.1 mL (18 mg/3 mL) Pen Injector 1.2 mg SUBCUT DAILY RF: 0 acyclovir 400 mg tablet 400 mg PO BID RF: 0 Revlimid 25 mg Capsule 25 mg PO DAILY RF: 0 amiodarone 200 mg Tablet 200 mg PO BID Qty: 60 RF: 0 docusate sodium [Colace] 100 mg capsule 100 mg PO BID PRN (Reason: constipation ) Qty: 30 RF: 0 polyethylene glycol 3350 [Miralax] 17 gram Powder In Packet 17 g PO DAILY PRN (Reason: constipation) Qty: 15 RF: 0 Changed torsemide 20 mg Tablet 10 mg PO QAM Qty: 30 RF: 0 Discontinued lisinopril 10 mg tablet 10 mg PO DAILY RF: 0 Discharge Orders: Discharge Order (Routine); Ordered 10/10/21 Ordered By: Ana Luisa Woo/Other Patient Handouts: High Blood Sugar (Hyperglycemia), Managing Type 2 Diabetes Admission Data Admit Date/Time: 10/08/21 20:10 Attending Provider: Ana Luisa Esquivel I. Admit Provider: Genaro Diaz Primary Care Provider: Landen Macario Other Providers: Genaro Diaz Other Interventions: Discharge Summary Assessment (RN) Last Done: 10/10/21 10:04
--- NOTE | 2021-10-10 10:30 | Electrocardiogram Report ---
Test Reason : Blood Pressure : / mmHG Vent. Rate : 060 BPM Atrial Rate : 060 BPM P-R Int : 276 ms QRS Dur : 092 ms QT Int : 468 ms P-R-T Axes : 052 099 013 degrees QTc Int : 468 ms Atrial-paced rhythm with prolonged AV conduction Rightward axis Abnormal ECG When compared with ECG of 09-OCT-2021 02:23, (unconfirmed) T wave inversion no longer evident in Anterolateral leads Confirmed by Dutch Dela Cruz ([id number]) on 10/10/2021 10:29:40 AM Referred By: Landen Macario Confirmed By:Dutch Dela Cruz
== END 2021-10-10 12:59 | disposition home or self-care (01) ==
LOC: ED 16:00 → INTOOBSV 20:10 → EDINP 20:10 → 2N 10-09 15:57

== ENCOUNTER 2022-04-22 07:43 | Inpatient (IN) ==
[2022-04-22] MEDS: SODIUM CHLORIDE 0.9% 1000ML 1,000 ML IV SCH ×2 (08:36→15:05)
[2022-04-22 08:39] LABS: INR 1.1 (0.9-1.1); Prothrombin Time 12.1 Seconds (9.0-12.0)
[2022-04-22 08:40] LABS: Appearance Urine Clear (Clear); Bacteria Urine Automated Negative (Negative); Bilirubin Urine Negative (Negative); Blood Urine 1+ (Negative); Color Urine Yellow; Epithelial Cell Urine Auto 0-5 /lpf (0-5); Glucose Urine UA Negative (Negative); Ketones Urine Negative (Negative); Leukocyte Esterase Urine Negative (Negative); Nitrite Urine Negative (Negative); Protein Urine 1+ (Negative); Specific Gravity Urine 1.013 (1.000-1.030); Urobilinogen Urine Negative (Negative)
[2022-04-22 08:43] LABS: Eosinophils # (auto) 0.02 K/uL (0-0.5); Eosinophils % (auto) 0.3 %; Hematocrit (blood only) 27.6 % (42-52); Immature Granulocytes # (auto) 0.07 K/uL (0.00-0.02); Immature Granulocytes % (auto) 1.1 %; Lymphocytes # (auto) 0.69 K/uL (1.2-3.4); Lymphocytes % (auto) 10.9 %; Mean Corpuscular Hemoglobin 31.4 pg (25-34); Mean Corpuscular Hgb Conc 32.6 g/dL (32-36); Mean Corpuscular Volume 96.2 fL (80-100); Mean Platelet Volume 9.9 fL (7.4-10.4); Monocytes % (auto) 4.7 %; Neutrophils # (auto) 5.27 K/uL (1.4-6.5); Platelet Count 183 K/uL (130-400); RDW Coefficient of Variation 14.7 % (11.5-14.5); Red Blood Count 2.87 M/uL (4.7-6.1); White Blood Count 6.35 K/uL (4.8-10.8)
[2022-04-22] MEDS ORDERED: CEFEPIME 2,000 MG/20 ML VIAL IV STA (08:45)
--- NOTE | 2022-04-22 08:46 | XRay Report ---
SINGLE VIEW CHEST CLINICAL HISTORY: Sepsis. FINDINGS: An AP, portable, upright chest radiograph is compared to study dated 04/15/2022. The examina tion is degraded by portable technique and patient rotation. A 2-lead cardiac pacemaker is unchanged in position. The patient is status post midline sternotomy. The heart is enlarged noting atherosclero tic calcification of the thoracic aorta. Patchy bilateral airspace opacities are seen throughout both lungs, most confluent in the right mid to upper lung. No large pleural effusion or pneumothorax is s een. The skeletal structures are osteopenic. There are healed right-sided rib fractures. IMPRESSION: 1. Cardiomegaly and cardiac pacemaker. 2. There are bilateral airspace opacities. This could represent multifocal pneumonia and/or pulmonary edema. Clinical correlation will be required and radiographic follow-up to resolution is recommended ACT 112: Negative or not required by law. Electronically signed by: Dante Lopez M.D. 04/22/2022 8:43 AM
[2022-04-22] MEDS ORDERED: ACETAMINOPHEN 1,000 MG/100 ML VIAL IV STA ×2 (08:57→17:24)
[2022-04-22 09:01] LABS: Albumin Globulin Ratio 1.3 (0.9-2); Albumin Level 3.6 gm/dl (3.4-5.0); BUN Creatinine Ratio 19.3 (10-20); Bilirubin,Total 0.8 mg/dl (0.2-1.0); Creatinine Clr Calc Pharmacy 56.9 ml/min; Est GFR (African American) 72.5 ml/min; Est GFR (Non-African American) 62.6 ml/min; Globulin 2.8 gm/dl (2.5-4.0); Magnesium 1.8 mg/dl (1.7-2.4); Potassium 3.9 mmol/L (3.5-5.1); Total Protein 6.4 gm/dl (6.0-8.3)
[2022-04-22 09:05] LABS: Influenza A virus by PCR Negative (Neg); Influenza B virus by PCR Negative (Neg); RSV by PCR Negative (Neg); SARS CoV2 RNA(COVID-19) InHosp NEGATIVE (Negative)
[2022-04-22 09:08] LABS: Troponin I High Sensitivity 215.2 pg/ml (0-20)
[2022-04-22] MEDS ORDERED: SODIUM CHLORIDE 0.9% 1000ML 1,000 ML IV ONE ×2 (09:21→10:59)
--- NOTE | 2022-04-22 09:55 | CT Scan Report ---
CT head/brain wo con CLINICAL HISTORY: 76 years-old Male with trauma. Acute head trauma status post fall TECHNIQUE: Multiple axial CT images of the head were obtained without contrast. A dose lowering tech nique was utilized adhering to the principles of ALARA. COMPARISON: CT cervical spine of same day FINDINGS: No acute intracranial hemorrhage, midline shift, intracranial mass, hydrocephalus, territorial ischem ia or abnormal extra-axial collection. Involutional changes of the brain parenchyma. White matter hyp odensities favor chronic microvascular ischemic disease. Cerebral vascular calcifications. The calvarium is intact. Lucent focus of the occipital calvarium on image 19 is nonspecific and may r epresent an arachnoid granulation. Prior bilateral lens repair. The paranasal sinuses, mastoid air ce lls, and middle ear cavities are clear. IMPRESSION: No acute intracranial abnormality or calvarial fracture. ACT 112: Negative or not required by law. The above report was generated using voice recognition software. It may contain grammatical, syntax o r spelling errors. Electronically signed by: Uziel Nieto M.D. 04/22/2022 9:54 AM
--- NOTE | 2022-04-22 10:01 | CT Scan Report ---
CT SCAN OF THE CERVICAL SPINE CLINICAL HISTORY: Trauma. Fall. History of multiple myeloma. COMPARISON STUDY: No priors. TECHNIQUE: CT scan of the cervical spine is performed from the skull base to the upper thoracic spine . Images are reviewed in the axial, sagittal, and coronal planes. IV contrast was not administered fo r this examination. A dose lowering technique was utilized adhering to the principles of ALARA. CT DOSE: 999.97 mGy.cm FINDINGS: Skeletal structures: The skeletal structures are osteopenic. There is no evidence of fracture or subl uxation involving the cervical spine. Vertebral body height and alignment are maintained. The odonto id process and lateral masses are intact. The atlantoaxial articulation is preserved noting mild prod uctive degenerative change. The spinous processes appear intact. Scattered osteolytic lesions are see n throughout the cervical spine and consistent with the reported history of multiple myeloma. Some of these show sclerosis which likely represents treatment related change. There is mild multilevel face t arthropathy. Intervertebral discs: There is mild to moderate disc space narrowing seen throughout the cervical spi ne. Central canal: Small posterior disc osteophyte complexes at C5-C6 at C6-C7 may contribute to mild acq uired compromise the central canal. Soft tissues: The prevertebral and paraspinous soft tissues are within normal limits. There is athero sclerotic calcification of the carotid bulbs. Pacemaker leads are noted at the left thoracic inlet th ere Calvarium: The visualized calvarium at the skull base appears intact. Brain parenchyma: Partially visualized brain parenchyma at the skull base is within normal limits. Sinuses and mastoids: The visualized paranasal sinuses are clear. The mastoid air cells are well pneu matized. Lung apices: Emphysematous change is noted at the apices. IMPRESSION: 1. There is no evidence of fracture or subluxation involving the cervical spine. 2. Osteolytic lesions scattered throughout the cervical spine likely correspond to the reported histo ry of multiple myeloma. 3. Emphysema. ACT 112: Negative or not required by law. Electronically signed by: Dante Lopez M.D. 04/22/2022 9:58 AM
[2022-04-22] MEDS ORDERED: OPTIRAY 320 125ml IV ONE (11:25)
--- NOTE | 2022-04-22 12:12 | CT Scan Report ---
CT angio chest PE protocol CLINICAL HISTORY: Shortness of breath COMPARISON STUDY: Portable chest from 04/22/2022 CT DOSE: 499.74 mGycm TECHNIQUE: CT Angio of the chest was performed.followed by image post processing with coronal, and s agittal MIP reformats. Contrast Volume: ml FINDINGS: Vasculature: There is homogeneous perfusion of the pulmonary vasculature bilaterally. No intraluminal filling defects or evidence for pulmonary embolus is seen. Airway: The airway is clear. No endobronchial lesion is identified. Lungs: Moderate to marked bullous emphysematous changes are present involving the upper lobes bilater ally, right greater than left. The patchy airspace opacities described on the portable chest radiogra ph represents the preserved lung parenchyma with minimal diffuse groundglass opacity present. No conf luent alveolar opacities or air bronchograms are seen. Pleura: There is no evidence for pleural effusion. There is no evidence for pneumothorax. Mediastinum: There is no evidence for pathologic adenopathy. The heart is enlarged with permanent car diac pacer in place. Coronary artery calcifications present. The patient is status post previous ster notomy. The thoracic aorta is within normal limits. Atherosclerotic calcification is present. There i s no evidence for pericardial effusion. Osseous structures: There is no acute osseous pathology. Degenerative changes are present within the spine. Impression: 1. No CTA evidence for pulmonary embolus. 2. Marked bullous emphysematous changes involving the upper lobes bilaterally, right greater than lef t. 3. The bilateral airspace opacities actually represent preserved lung with groundglass opacity presen t. This most likely represents mild alveolar edema. 4. No confluent alveolar opacities were bronchograms are seen. 5. Cardiomegaly with extensive coronary artery calcification and atherosclerotic calcification of the aorta. ACT 112: Negative or not required by law. Electronically signed by: Juan Snyder M.D. 04/22/2022 12:11 PM
[2022-04-22] MEDS ORDERED: ALBUT/IPRATROP 3MG/0.5MG NEB 3 ML VIAL NEB STA (12:26)
--- NOTE | 2022-04-22 12:28 | Emergency Department Note ---
History of Present Illness General Chief complaint: Fall Stated complaint: fall Time Seen by Provider: 04/22/22 07:49 Source: patient Mode of arrival: EMS Limitations: no limitations History of Present Illness Provider complaint: Fall Maximum Pain Intensity: 5 This is a 76-year-old male who presents by EMS following a fall at home. Patient states he has been feeling weaker and more short of breath recently with exertion and he got up to go to the bathroom and felt lightheaded and fell st riking his head on the front of the toilet. Patient states he has felt unwell for several weeks including decreased appetite, fatigue, weight loss. Patient denies cough, nasal congestion, shortness of breath. Patient was noted to have a fever today upon EMS evaluation. Due to patient's use of anticoagulation they were concerned for the coming head injury and recommended transportation for additional evaluation. Patient denies any headaches, dizziness, tinnitus, blurred vision. He does denies any neck or back pain. Denies any concern for other trunk or extremity injury. Patient does have history of tobacco abuse. He denies any recent change in cough. He denies any diagnosis of COPD. No use of oxygen at home. EMS did report he was found to be mildly hypoxic. Pt seen during a time of high acuity and national emergency pandemic while wearing PPE. Home Medications Medication Instructions Recorded Confirmed Type acetaminophen 650 mg 650 mg PO Q8H PRN tab 09/28/19 04/22/22 History tablet,extended release (Tylenol Arthritis Pain) aspirin 81 mg tablet,delayed 81 mg PO DAILY 09/28/19 04/22/22 History release apixaban 5 mg tablet (Eliquis) 5 mg PO BID 06/25/20 04/22/22 History atorvastatin 40 mg tablet 40 mg PO DAILY 06/25/20 04/22/22 History insulin glargine 100 unit/mL (3 40 unit SUBCUT QPM 06/25/20 04/22/22 History mL) subcutaneous pen (Basaglar KwikPen U-100 Insulin) isosorbide mononitrate 30 mg 30 mg PO DAILY 06/25/20 04/22/22 History tablet,extended release 24 hr liraglutide 0.6 mg/0.1 mL (18 mg/3 1.2 mg SUBCUT DAILY 09/30/21 04/22/22 History mL) subcutaneous pen injector (Victoza 2-Jed) ondansetron 8 mg disintegrating 8 mg PO Q8H PRN 09/30/21 04/22/22 History tablet prochlorperazine maleate 10 mg 10 mg PO Q6H PRN 09/30/21 04/22/22 History tablet polyethylene glycol 3350 17 gram 17 g PO DAILY PRN #15 ea 10/05/21 04/22/22 Rx oral powder packet (Miralax) torsemide 20 mg tablet 10 mg PO QAM #30 tab 10/10/21 04/22/22 Rx dexamethasone 4 mg tablet 20 mg PO WK MDD 5 tablets weekly 11/01/21 04/22/22 History insulin aspart U-100 100 unit/mL 0 unit SUBCUT UD MDD 28 units per 11/01/21 04/22/22 History (3 mL) subcutaneous pen (Novolog day Flexpen U-100 Insulin aspart) nitroglycerin 0.4 mg sublingual 0.4 mg SUBLINGUAL .Q 5 MIN PRN MDD 11/01/21 04/22/22 History tablet 3 doses in 15 min omega-3 fatty acids 1,000 mg 1,000 mg PO BID 04/15/22 04/22/22 History capsule metoprolol succinate 50 mg 75 mg PO DAILY tab 04/16/22 04/22/22 History tablet,extended release 24 hr (Toprol XL) acyclovir 400 mg tablet 400 mg PO BID 04/22/22 04/22/22 History docusate sodium 100 mg capsule 100 mg PO BID 04/22/22 04/22/22 History (Colace) doxycycline hyclate 100 mg tablet 25 mg PO BID 04/22/22 04/22/22 History ferrous sulfate 325 mg (65 mg 325 mg PO DAILY 04/22/22 04/22/22 History iron) tablet gabapentin 300 mg capsule 300 mg PO DAILY 04/22/22 04/22/22 History mecobalamin (vitamin B12) 1,000 1,000 mcg PO DAILY 04/22/22 04/22/22 History mcg chewable tablet (B12 Active) morphine 15 mg immediate release 15 mg PO Q6H PRN 04/22/22 04/22/22 History tablet potassium chloride 10 mEq 10 meq PO DAILY 04/22/22 04/22/22 History capsule,extended release Allergies Allergy/AdvReac Type Severity Reaction Status Date / Time tizanidine Allergy Unknown Unknown Verified 04/16/22 15:19 Past Med/Surg History Medical History Atrial fibrillation continue eliquis and high dose metoprolol CAD (coronary artery disease) Hallux rigidus of left foot "S/p multiple surgeries" History of basal cell carcinoma History of melanoma in situ History of pilonidal cyst HLD (hyperlipidemia) Pacemaker Peripheral vascular disease of lower extremity Tachy-noman syndrome Pt admitted for elective ppm due to TBS; underwent procedure without any complications; monitored overnight and discharged home. 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 Beliefs That Will Affect Care: None marital status: Current Living Situation: Spouse current occupational status: retired Other Information That Helps Us Care for You: No Feels Safe at Home: Yes Safety Concerns: Feels Safe At This Time Assistive Devices: Cane and Walker Review of Systems A total of 10 systems reviewed and were otherwise negative All systems reviewed & are unremarkable except as noted in HPI & below Physical Exam Vital Signs Vital Signs - 24 hr 04/22/22 07:59 04/22/22 08:08 04/22/22 08:30 Temperature 39.3 C H Temperature Source Oral Pulse Rate 108 H 94 H Pulse Rate from SpO2 Sensor 91 H Pulse Rhythm Regular Pulse Strength Normal Respiratory Rate 20 21 Respiratory Effort / Characteristics Non-Labored Spontaneous Respiratory Depth Normal Respiratory Pattern Regular Blood Pressure 109/54 L 99/56 L Blood Pressure Mean 72 70 Blood Pressure Position Sitting Pulse Oximetry 94 81 L 96 Oxygen Delivery Method Nasal Cannula Nasal Cannula Oxygen Flow Rate 4 0 Sepsis Recent Fever Within 48 Hours Yes Sepsis New/Unexplained Change in Mental Status No Sepsis Action Taken by Nursing Physician Notified Oxygen Flow Rate - Titration 4 Pulse Oximetry Post Tiitration 94 04/22/22 09:00 04/22/22 09:12 04/22/22 09:19 Temperature Temperature Source Pulse Rate 84 80 78 Pulse Rate from SpO2 Sensor 85 80 77 Pulse Rhythm Pulse Strength Respiratory Rate 13 23 16 Respiratory Effort / Characteristics Respiratory Depth Respiratory Pattern Blood Pressure 82/51 L 83/48 L 93/48 L Blood Pressure Mean 61 59 63 Blood Pressure Position Pulse Oximetry 99 99 99 Oxygen Delivery Method Oxygen Flow Rate Sepsis Recent Fever Within 48 Hours Sepsis New/Unexplained Change in Mental Status Sepsis Action Taken by Nursing Oxygen Flow Rate - Titration Pulse Oximetry Post Tiitration 04/22/22 09:30 04/22/22 10:00 04/22/22 10:02 Temperature Temperature Source Pulse Rate 80 78 77 Pulse Rate from SpO2 Sensor 80 78 77 Pulse Rhythm Pulse Strength Respiratory Rate 17 16 17 Respiratory Effort / Characteristics Respiratory Depth Respiratory Pattern Blood Pressure 95/53 L 99/55 L 102/55 L Blood Pressure Mean 67 69 70 Blood Pressure Position Pulse Oximetry 99 99 99 Oxygen Delivery Method Oxygen Flow Rate Sepsis Recent Fever Within 48 Hours Sepsis New/Unexplained Change in Mental Status Sepsis Action Taken by Nursing Oxygen Flow Rate - Titration Pulse Oximetry Post Tiitration 04/22/22 10:15 04/22/22 10:28 04/22/22 10:30 Temperature 37.0 C Temperature Source Oral Pulse Rate 75 75 Pulse Rate from SpO2 Sensor 75 75 Pulse Rhythm Pulse Strength Respiratory Rate 15 15 Respiratory Effort / Characteristics Respiratory Depth Respiratory Pattern Blood Pressure 95/55 L 102/56 L Blood Pressure Mean 68 71 Blood Pressure Position Pulse Oximetry 100 99 Oxygen Delivery Method Oxygen Flow Rate Sepsis Recent Fever Within 48 Hours Sepsis New/Unexplained Change in Mental Status Sepsis Action Taken by Nursing Oxygen Flow Rate - Titration Pulse Oximetry Post Tiitration 04/22/22 10:45 04/22/22 11:00 04/22/22 11:32 Temperature Temperature Source Pulse Rate 73 75 78 Pulse Rate from SpO2 Sensor 73 75 78 Pulse Rhythm Pulse Strength Respiratory Rate 15 17 23 Respiratory Effort / Characteristics Respiratory Depth Respiratory Pattern Blood Pressure 97/57 L 97/55 L 106/58 L Blood Pressure Mean 70 69 74 Blood Pressure Position Pulse Oximetry 100 100 97 Oxygen Delivery Method Oxygen Flow Rate Sepsis Recent Fever Within 48 Hours Sepsis New/Unexplained Change in Mental Status Sepsis Action Taken by Nursing Oxygen Flow Rate - Titration Pulse Oximetry Post Tiitration 04/22/22 11:45 04/22/22 12:00 04/22/22 12:15 Temperature Temperature Source Pulse Rate 72 72 70 Pulse Rate from SpO2 Sensor 72 71 70 Pulse Rhythm Pulse Strength Respiratory Rate 15 15 18 Respiratory Effort / Characteristics Respiratory Depth Respiratory Pattern Blood Pressure 100/55 L 98/54 L 100/55 L Blood Pressure Mean 70 68 70 Blood Pressure Position Pulse Oximetry 98 100 100 Oxygen Delivery Method Oxygen Flow Rate Sepsis Recent Fever Within 48 Hours Sepsis New/Unexplained Change in Mental Status Sepsis Action Taken by Nursing Oxygen Flow Rate - Titration Pulse Oximetry Post Tiitration 04/22/22 12:31 04/22/22 12:45 Temperature Temperature Source Pulse Rate 69 69 Pulse Rate from SpO2 Sensor 70 69 Pulse Rhythm Pulse Strength Respiratory Rate 17 14 Respiratory Effort / Characteristics Respiratory Depth Respiratory Pattern Blood Pressure 98/40 L 113/58 L Blood Pressure Mean 59 76 Blood Pressure Position Pulse Oximetry 100 100 Oxygen Delivery Method Oxygen Flow Rate Sepsis Recent Fever Within 48 Hours Sepsis New/Unexplained Change in Mental Status Sepsis Action Taken by Nursing Oxygen Flow Rate - Titration Pulse Oximetry Post Tiitration GENERAL: alert, well appearing, well nourished, no distress, non-toxic HEAD: Normocephalic, small contusion with overlying superficial abrasion noted to the central forehead, no gregorio signs, no raccoon eyes EYE EXAM: normal conjunctiva, PERRL and EOM's grossly intact OROPHARYNX: no exudate, no erythema, lips, buccal mucosa, and tongue normal and mucous membranes are moist NECK: supple, no nuchal rigidity, no adenopathy, non-tender, FROM LUNGS: Clear to auscultation. Normal chest wall mechanics, no w/r/r HEART: no murmurs, S1 normal and S2 normal, well-healed midline sternotomy scar noted, pacemaker noted left anterior superior chest wall ABDOMEN: abdomen soft, non-tender, normo-active bowel sounds, no masses, no rebound or guarding. BACK: Back is symmetrical on inspection and there is no deformity, no midline tenderness, no CVA tenderness. SKIN: no rashes and no bruising UPPER EXTREMITIES: upper extremities are grossly normal. FROM, nml pulses b/l. No deformities or evidence of trauma. LOWER EXTREMITIES: No pitting edema. FROM, nml pulses b/l. No deformities or evidence of trauma. NEURO EXAM: Normal sensorium, cranial nerves II-XII grossly intact, normal speech, no gross weakness of arms, no gross weakness of legs. Gross sensation intact. Course Administered Medications Acetaminophen (Acetaminophen 325 Mg Tab) 650 mg PO Q4H PRN PRN Reason: Pain or Fever Stop: 05/22/22 14:56 Last Admin: 04/24/22 15:57 Dose: 650 mg Documented by: [id number] Admin: 04/24/22 07:16 Dose: 650 mg Documented by: [id number] Admin: 04/23/22 23:49 Dose: 650 mg Documented by: [id number] Admin: 04/23/22 15:46 Dose: 650 mg Documented by: [id number] Admin: 04/23/22 08:13 Dose: 650 mg Documented by: [id number] Acyclovir (Acyclovir 400 Mg Tab) 400 mg PO BID [facility] Stop: 05/22/22 20:59 Last Admin: 04/24/22 20:07 Dose: 400 mg Documented by: [id number] Admin: 04/24/22 07:33 Dose: 400 mg Documented by: [id number] Admin: 04/23/22 20:22 Dose: 400 mg Documented by: [id number] Admin: 04/23/22 08:13 Dose: 400 mg Documented by: [id number] Admin: 04/22/22 21:31 Dose: 400 mg Documented by: [id number] Albuterol (Albut/Ipratrop 3mg/0.5mg Neb 3 Ml Vial) 3 ml NEB QIDR PRN; Protocol PRN Reason: sob/wheezing Stop: 05/22/22 14:56 Last Admin: 04/22/22 17:20 Dose: 3 ml Documented by: [id number] Aspirin (Aspirin 81 Mg Ectab) 81 mg PO DAILY [facility] Stop: 05/23/22 08:59 Last Admin: 04/24/22 07:34 Dose: 81 mg Documented by: [id number] Admin: 04/23/22 08:14 Dose: 81 mg Documented by: [id number] Atorvastatin Calcium (Atorvastatin 40 Mg Tab) 40 mg PO DAILY [facility] Stop: 05/23/22 08:59 Last Admin: 04/24/22 07:34 Dose: 40 mg Documented by: [id number] Admin: 04/23/22 08:13 Dose: 40 mg Documented by: [id number] Cyanocobalamin (Cyanocobalamin (B-12) 500 Mcg Tablet) 1,000 mcg PO DAILY [facility] Stop: 05/23/22 08:59 Last Admin: 04/24/22 07:34 Dose: 1,000 mcg Documented by: [id number] Admin: 04/23/22 08:14 Dose: 1,000 mcg Documented by: [id number] Dextrose (Dextrose 50% 50 Ml Syringe) 25 - 50 ml IV UD PRN; Protocol PRN Reason: Hypoglycemia Protocol Stop: 05/22/22 14:56 Last Admin: 04/23/22 06:47 Dose: 25 ml Documented by: [id number] Digoxin (Digoxin 0.25 Mg Tab) 0.25 mg PO DAILY@1600 [facility] Stop: 05/23/22 15:59 Last Admin: 04/24/22 15:57 Dose: 0.25 mg Documented by: [id number] Admin: 04/23/22 15:46 Dose: 0.25 mg Documented by: [id number] Docusate Sodium (Docusate Sodium 100 Mg Cap) 100 mg PO BID [facility] Stop: 05/22/22 20:59 Last Admin: 04/24/22 20:07 Dose: 100 mg Documented by: [id number] Admin: 04/24/22 07:33 Dose: 100 mg Documented by: [id number] Admin: 04/23/22 20:22 Dose: 100 mg Documented by: [id number] Admin: 04/23/22 08:13 Dose: 100 mg Documented by: [id number] Admin: 04/22/22 21:31 Dose: 100 mg Documented by: [id number] Doxycycline Hyclate (Doxycycline Hyclate 100 Mg Cap) 100 mg PO BID [facility] Stop: 04/27/22 23:59 Last Admin: 04/24/22 20:07 Dose: 100 mg Documented by: [id number] Admin: 04/24/22 07:33 Dose: 100 mg Documented by: [id number] Admin: 04/23/22 20:22 Dose: 100 mg Documented by: [id number] Admin: 04/23/22 08:13 Dose: 100 mg Documented by: [id number] Admin: 04/22/22 21:31 Dose: 100 mg Documented by: [id number] Admin: 04/22/22 16:30 Dose: 100 mg Documented by: [id number] Ferrous Sulfate (Ferrous Sulfate 325 Mg Tab) 325 mg PO DAILY [facility] Stop: 05/23/22 08:59 Last Admin: 04/24/22 07:34 Dose: 325 mg Documented by: [id number] Admin: 04/23/22 08:14 Dose: 325 mg Documented by: [id number] Furosemide (Furosemide 40 Mg/4 Ml Vial) 40 mg IV BID [facility] Stop: 05/23/22 08:59 Last Admin: 04/24/22 20:08 Dose: 40 mg Documented by: [id number] Admin: 04/24/22 07:16 Dose: 40 mg Documented by: [id number] Admin: 04/23/22 20:22 Dose: 40 mg Documented by: [id number] Admin: 04/23/22 10:12 Dose: 40 mg Documented by: [id number] Gabapentin (Gabapentin 300 Mg Cap) 300 mg PO DAILY [facility] Stop: 05/23/22 08:59 Last Admin: 04/24/22 07:34 Dose: 300 mg Documented by: [id number] Admin: 04/23/22 08:14 Dose: 300 mg Documented by: [id number] Piperacillin Sod/Tazobactam (Sod 4.5 gm/ Dextrose) 120 mls @ 30 mls/hr IV Q8H [facility]; Protocol Stop: 04/27/22 23:59 Last Infusion: 04/24/22 17:11 Dose: 0 mls/hr Documented by: [id number] Admin: 04/24/22 13:30 Dose: 30 mls/hr Documented by: [id number] Infusion: 04/24/22 09:19 Dose: 0 mls/hr Documented by: [id number] Admin: 04/24/22 05:18 Dose: 30 mls/hr Documented by: [id number] Infusion: 04/24/22 02:15 Dose: 0 mls/hr Documented by: [id number] Admin: 04/23/22 22:15 Dose: 30 mls/hr Documented by: [id number] Infusion: 04/23/22 17:13 Dose: 0 mls/hr Documented by: [id number] Admin: 04/23/22 13:22 Dose: 30 mls/hr Documented by: [id number] Infusion: 04/23/22 10:12 Dose: 0 mls/hr Documented by: [id number] Admin: 04/23/22 05:43 Dose: 30 mls/hr Documented by: [id number] Infusion: 04/23/22 01:35 Dose: 0 mls/hr Documented by: [id number] Admin: 04/22/22 21:31 Dose: 30 mls/hr Documented by: [id number] Insulin Aspart (Insulin Aspart Per Unit) 0 units SC ACHS [facility] Stop: 05/22/22 16:29 Last Admin: 04/24/22 20:22 Dose: 1 units Documented by: [id number] Cosigned by: [id number] Admin: 04/24/22 15:58 Dose: 3 units Documented by: [id number] Cosigned by: [id number] Admin: 04/24/22 11:44 Dose: 9 units Documented by: [id number] Cosigned by: [id number] Admin: 04/24/22 07:15 Dose: 2 units Documented by: [id number] Cosigned by: [id number] Admin: 04/23/22 20:39 Dose: 2 units Documented by: [id number] Cosigned by: [id number] Admin: 04/23/22 15:53 Dose: 2 units Documented by: [id number] Cosigned by: [id number] Admin: 04/23/22 11:27 Dose: Not Given Documented by: [id number] Admin: 04/23/22 07:12 Dose: Not Given Documented by: [id number] Admin: 04/22/22 21:39 Dose: 2 units Documented by: [id number] Cosigned by: [id number] Admin: 04/22/22 17:54 Dose: 1 units Documented by: [id number] Cosigned by: [id number] Insulin Glargine (Lantus Per Unit Charge) 0 - 40 units SQ QPM [facility]; Protocol Stop: 05/22/22 20:59 Last Admin: 04/24/22 20:22 Dose: 10 units Documented by: [id number] Cosigned by: [id number] Admin: 04/23/22 20:40 Dose: 20 units Documented by: [id number] Cosigned by: [id number] Admin: 04/22/22 21:45 Dose: 40 units Documented by: [id number] Cosigned by: [id number] Isosorbide Mononitrate (Isosorbide [place] Extended Rel 30 Mg Tabcr) 30 mg PO DAILY [facility] Stop: 05/23/22 08:59 Last Admin: 04/24/22 07:34 Dose: 30 mg Documented by: [id number] Admin: 04/23/22 08:14 Dose: 30 mg Documented by: [id number] Magnesium Hydroxide (Magnesium Hydroxide Susp 30 Ml Udc) 30 ml PO Q12H PRN PRN Reason: Constipation Stop: 05/22/22 14:56 Last Admin: 04/24/22 18:35 Dose: 30 ml Documented by: [id number] Admin: 04/24/22 07:16 Dose: 30 ml Documented by: [id number] Metoprolol Tartrate (Metoprolol Tartrate 25 Mg Tab) 25 mg PO TID [facility] Stop: 05/24/22 13:59 Last Admin: 04/24/22 20:07 Dose: 25 mg Documented by: [id number] Admin: 04/24/22 13:33 Dose: 25 mg Documented by: [id number] Miscellaneous (Carbohydrates For Hypoglycemia ) 15 - 30 gm PO UD PRN PRN Reason: Hypoglycemia Protocol Stop: 05/22/22 14:56 Last Admin: 04/23/22 05:58 Dose: 15 gm Documented by: [id number] Oxycodone HCl (Oxycodone Hcl Ir 5 Mg Tab (Immediate Release)) 5 mg PO Q6H PRN PRN Reason: Pain Stop: 05/07/22 10:01 Last Admin: 04/24/22 05:18 Dose: 5 mg Documented by: [id number] Polyethylene Glycol (Polyethylene (Miralax) 17 Gm Pack) 17 gm PO DAILY PRN PRN Reason: Constipation Stop: 05/22/22 14:56 Last Admin: 04/24/22 07:16 Dose: 17 gm Documented by: [id number] Admin: 04/23/22 08:12 Dose: 17 gm Documented by: [id number] Discontinued Medications Albuterol (Albut/Ipratrop 3mg/0.5mg Neb 3 Ml Vial) 3 ml NEB NOW STA; Protocol Stop: 04/22/22 12:27 Last Admin: 04/22/22 12:44 Dose: 3 ml Documented by: [id number] Apixaban (Apixaban 5 Mg Tablet) 5 mg PO NOW STA Stop: 04/22/22 13:32 Last Admin: 04/22/22 17:36 Dose: Not Given Documented by: [id number] Furosemide (Furosemide Inj 20 Mg/2 Ml Vial) 20 mg IV ONE ONE Stop: 04/22/22 14:57 Last Admin: 04/22/22 15:05 Dose: 20 mg Documented by: [id number] Furosemide (Furosemide Inj 20 Mg/2 Ml Vial) 20 mg IV NOW STA Stop: 04/22/22 17:20 Last Admin: 04/22/22 17:37 Dose: 20 mg Documented by: [id number] Furosemide (Furosemide Inj 20 Mg/2 Ml Vial) 20 mg IV ONE ONE Stop: 04/23/22 01:49 Last Admin: 04/23/22 05:43 Dose: 20 mg Documented by: [id number] Heparin Sodium/Dextrose (Heparin Iv Adult Wt-Based Standard *No* Bolus Protocol) 1 ea IV Q15M [facility]; Protocol Stop: 05/22/22 17:29 Last Admin: 04/22/22 17:38 Dose: 1 ea Documented by: [id number] Sodium Chloride (Nss 1000ml) 1,000 mls @ 250 mls/hr IV .Q4H [facility] Stop: 05/22/22 07:59 Last Admin: 04/22/22 15:05 Dose: Not Given Documented by: [id number] Infusion: 04/22/22 15:02 Dose: 0 mls/hr Documented by: [id number] Admin: 04/22/22 08:36 Dose: 250 mls/hr Documented by: [id number] Cefepime HCl (Maxipime) 2,000 mg in 20 mls @ 5 mls/min IV NOW STA; Protocol Stop: 04/22/22 08:48 Last Admin: 04/22/22 08:48 Dose: 5 mls/min Documented by: [id number] Acetaminophen (Ofirmev) 1,000 mg in 100 mls @ 400 mls/hr IV NOW STA Stop: 04/22/22 09:11 Last Infusion: 04/22/22 09:29 Dose: 0 mls/hr Documented by: [id number] Admin: 04/22/22 09:14 Dose: 400 mls/hr Documented by: [id number] Sodium Chloride (Nss 1000ml) 1,000 mls @ 999 mls/hr IV .Q1H1M ONE Stop: 04/22/22 10:21 Last Infusion: 04/22/22 10:24 Dose: 0 mls/hr Documented by: [id number] Admin: 04/22/22 09:23 Dose: 999 mls/hr Documented by: [id number] Sodium Chloride (Nss 1000ml) 1,000 mls @ 999 mls/hr IV .Q1H1M ONE Stop: 04/22/22 11:59 Last Infusion: 04/22/22 12:15 Dose: 0 mls/hr Documented by: [id number] Admin: 04/22/22 11:14 Dose: 999 mls/hr Documented by: [id number] Vancomycin HCl 1,750 mg/ (Sodium Chloride) 535 mls @ 200 mls/hr IV NOW ONE Stop: 04/22/22 18:10 Last Infusion: 04/22/22 22:14 Dose: 0 mls/hr Documented by: [id number] Admin: 04/22/22 16:30 Dose: 200 mls/hr Documented by: [id number] Heparin Sodium/Dextrose (Heparin Sodium/Dextrose) 25,000 units in 500 mls @ 21 mls/hr IV .[id number] [facility]; Protocol Stop: 05/22/22 17:29 Last Titration: 04/24/22 12:51 Dose: 0 units/hr, 0 mls/hr Documented by: [id number] Cosigned by: [id number] Admin: 04/23/22 15:51 Dose: 1,050 units/hr, 21 mls/hr Documented by: [id number] Cosigned by: [id number] Titration: 04/23/22 15:44 Dose: 1,050 units/hr, 21 mls/hr Documented by: [id number] Cosigned by: [id number] Titration: 04/23/22 08:58 Dose: 1,050 units/hr, 21 mls/hr Documented by: [id number] Cosigned by: [id number] Titration: 04/23/22 07:09 Dose: 0 units/hr, 0 mls/hr Documented by: [id number] Cosigned by: [id number] Titration: 04/23/22 00:00 Dose: 1,350 units/hr, 27 mls/hr Documented by: [id number] Cosigned by: [id number] Titration: 04/22/22 19:02 Dose: 1,350 units/hr, 27 mls/hr Documented by: [id number] Cosigned by: [id number] Admin: 04/22/22 17:53 Dose: 1,350 units/hr, 27 mls/hr Documented by: [id number] Cosigned by: [id number] Acetaminophen (Ofirmev) 1,000 mg in 100 mls @ 400 mls/hr IV NOW STA Stop: 04/22/22 17:38 Last Infusion: 04/22/22 18:14 Dose: 0 mls/hr Documented by: [id number] Admin: 04/22/22 17:37 Dose: 400 mls/hr Documented by: [id number] Piperacillin Sod/Tazobactam (Sod 4.5 gm/ Dextrose) 120 mls @ 240 mls/hr IV NOW ONE; Protocol Stop: 04/22/22 18:14 Last Infusion: 04/22/22 18:24 Dose: 0 mls/hr Documented by: [id number] Admin: 04/22/22 17:53 Dose: 240 mls/hr Documented by: [id number] Amiodarone HCl/Dextrose (Nexterone / D5w) 150 mg in 100 mls @ 600 mls/hr IV NOW [facility] Stop: 04/22/22 18:40 Last Infusion: 04/22/22 19:02 Dose: 0 mls/hr Documented by: [id number] Cosigned by: [id number] Admin: 04/22/22 18:44 Dose: 600 mls/hr Documented by: [id number] Cosigned by: [id number] Amiodarone HCl/Dextrose (Nexterone / D5w) 360 mg in 200 mls @ 33.333 mls/hr IV ONE ONE Stop: 04/23/22 00:40 Last Infusion: 04/22/22 22:13 Dose: 0 mls/hr Documented by: [id number] Cosigned by: [id number] Admin: 04/22/22 19:12 Dose: 33.3 mls/hr Documented by: [id number] Cosigned by: [id number] Vancomycin HCl 1,000 mg/ (Sodium Chloride) 270 mls @ 200 mls/hr IV Q18H [facility] Stop: 04/25/22 05:59 Last Infusion: 04/24/22 01:10 Dose: 0 mls/hr Documented by: [id number] Admin: 04/23/22 23:45 Dose: 200 mls/hr Documented by: [id number] Infusion: 04/23/22 07:09 Dose: 0 mls/hr Documented by: [id number] Admin: 04/23/22 05:43 Dose: 200 mls/hr Documented by: [id number] Acetaminophen (Ofirmev) 1,000 mg in 100 mls @ 400 mls/hr IV Q8H PRN PRN Reason: fever, pain Stop: 04/25/22 20:09 Last Infusion: 04/23/22 01:09 Dose: 0 mls/hr Documented by: [id number] Admin: 04/23/22 00:36 Dose: 400 mls/hr Documented by: [id number] Albumin Human (Albumin 25% 100 Ml) 25 gm in 100 mls @ 50 mls/hr IV ONE ONE Stop: 04/23/22 04:06 Last Infusion: 04/23/22 04:29 Dose: 0 mls/hr Documented by: [id number] Admin: 04/23/22 02:19 Dose: 50 mls/hr Documented by: [id number] Magnesium Sulfate/Dextrose (Magnesium Sulfate / D5w) 1 gm in 100 mls @ 50 mls/hr IV Q2H [facility] Stop: 04/23/22 11:14 Last Infusion: 04/23/22 12:46 Dose: 0 mls/hr Documented by: [id number] Admin: 04/23/22 10:12 Dose: 50 mls/hr Documented by: [id number] Infusion: 04/23/22 09:53 Dose: 50 mls/hr Documented by: [id number] Admin: 04/23/22 07:53 Dose: 50 mls/hr Documented by: [id number] Potassium Chloride (K Mathew / Wtr) 10 meq in 100 mls @ 100 mls/hr IV Q1H [facility]; Protocol Stop: 04/23/22 11:14 Last Infusion: 04/23/22 12:46 Dose: 0 mls/hr Documented by: [id number] Admin: 04/23/22 11:24 Dose: 100 mls/hr Documented by: [id number] Infusion: 04/23/22 11:12 Dose: 100 mls/hr Documented by: [id number] Admin: 04/23/22 10:12 Dose: 100 mls/hr Documented by: [id number] Infusion: 04/23/22 09:54 Dose: 100 mls/hr Documented by: [id number] Admin: 04/23/22 08:54 Dose: 100 mls/hr Documented by: [id number] Infusion: 04/23/22 08:53 Dose: 100 mls/hr Documented by: [id number] Admin: 04/23/22 07:53 Dose: 100 mls/hr Documented by: [id number] Calcium Gluconate 3,000 mg/ (Dextrose) 130 mls @ 65 mls/hr IV NOW ONE Stop: 04/23/22 10:39 Last Infusion: 04/23/22 12:46 Dose: 0 mls/hr Documented by: [id number] Admin: 04/23/22 10:24 Dose: 65 mls/hr Documented by: [id number] Potassium Chloride (K Mathew / Wtr) 10 meq in 100 mls @ 100 mls/hr IV Q1H RIVERA; Protocol Stop: 04/24/22 10:59 Last Infusion: 04/24/22 12:08 Dose: 0 mls/hr Documented by: [id number] Admin: 04/24/22 11:01 Dose: 100 mls/hr Documented by: [id number] Infusion: 04/24/22 10:41 Dose: 100 mls/hr Documented by: [id number] Admin: 04/24/22 09:41 Dose: 100 mls/hr Documented by: [id number] Infusion: 04/24/22 09:41 Dose: 100 mls/hr Documented by: [id number] Admin: 04/24/22 08:46 Dose: 100 mls/hr Documented by: [id number] Infusion: 04/24/22 08:14 Dose: 100 mls/hr Documented by: [id number] Admin: 04/24/22 07:14 Dose: 100 mls/hr Documented by: [id number] Potassium Phosphate 15 mmol/ (Sodium Chloride) 255 mls @ 88 mls/hr IV ONE ONE Stop: 04/24/22 09:53 Last Infusion: 04/24/22 11:15 Dose: 0 mls/hr Documented by: [id number] Admin: 04/24/22 07:15 Dose: 88 mls/hr Documented by: [id number] Ioversol (Optiray 320 125ml) 120 ml IV ONCE ONE Stop: 04/22/22 11:26 Last Admin: 04/22/22 11:26 Dose: 120 ml Documented by: [id number] Methylnaltrexone [place] (Methylnaltrexone [place] 12 Mg/0.6 Ml Vial) 12 mg SQ ONCE ONE Stop: 04/24/22 08:46 Last Admin: 04/24/22 08:46 Dose: 12 mg Documented by: [id number] Metoprolol Succinate (Metoprolol Succ 25mg Ext Rel Tab) 75 mg PO DAILY RIVERA Stop: 05/22/22 15:14 Last Admin: 04/23/22 08:15 Dose: Not Given Documented by: [id number] Admin: 04/22/22 16:30 Dose: 75 mg Documented by: [id number] Metoprolol Tartrate (Metoprolol Tartrate 25 Mg Tab) 12.5 mg PO TID [facility] Stop: 05/23/22 13:59 Last Admin: 04/24/22 07:33 Dose: 12.5 mg Documented by: [id number] Admin: 04/23/22 20:21 Dose: 12.5 mg Documented by: [id number] Admin: 04/23/22 15:45 Dose: 12.5 mg Documented by: [id number] Admin: 04/23/22 13:21 Dose: Not Given Documented by: [id number] Miscellaneous (Icu Electrolyte Replacement Protocol) 1 ea N/A BID@ [facility]; Protocol Stop: 04/30/22 17:59 Last Admin: 04/24/22 06:42 Dose: 1 ea Documented by: [id number] Admin: 04/23/22 15:54 Dose: Not Given Documented by: [id number] Morphine Sulfate (Morphine Sulfate Ir 15 Mg Tab (Immediate Release)) 15 mg PO Q6H PRN PRN Reason: Pain Stop: 05/06/22 15:14 Last Admin: 04/22/22 21:47 Dose: 15 mg Documented by: [id number] Potassium Chloride (Potassium Chloride Crtab 20 Meq Tabcr) 40 meq PO NOW STA Stop: 04/22/22 23:51 Last Admin: 04/23/22 00:36 Dose: 40 meq Documented by: [id number] Potassium Chloride (Potassium Chloride 20 Meq/15 Ml Udc) 40 meq PO NOW STA Stop: 04/23/22 07:04 Last Admin: 04/23/22 07:55 Dose: 40 meq Documented by: [id number] Potassium Chloride (Potassium Chloride Crtab 20 Meq Tabcr) 20 meq PO NOW STA Stop: 04/24/22 06:46 Last Admin: 04/24/22 07:13 Dose: 20 meq Documented by: [id number] Sodium Biphosphate/Sodium Phosphate (Sod Phosphate/Sod Biphosphate Enema 132 Ml Btl) 132 ml HI NOW STA Stop: 04/22/22 19:35 Last Admin: 04/22/22 19:43 Dose: 132 ml Documented by: [id number] Critical Care Time Critical Care Time: Yes Total Critical Care Time: 49 Critical care of 49 min performed to assess and manage high likelihood of life- threatening sepsis and hypoxia, involving labs and imaging performed with assessment to evaluate sepsis and hypoxia diagnosis with frequent reassessment. This time includes bedside time, treatment discussions with patient/family /consultants, documentation time and excludes procedure time. Medical Decision Making Differential Diagnosis Differential diagnoses include major intracranial, cervical, spinal, thoracic, abdominal, pelvic and neurologic injury. Fracture, contusion, sprain, strain, laceration, abrasions included as well. Medical Records Attestation: I reviewed the patient's medical records. Home Medications Current Medication List: was personally reviewed by me Laboratory Data Attestation: I reviewed the patient's lab results. Result diagrams: 04/24/22 16:03 04/24/22 05:32 Lab Results 04/22/22 04/22/22 04/22/22 Range/Units 08:00 08:00 08:00 WBC 6.35 (4.8-10.8) K/uL RBC 2.87 L (4.7-6.1) M/uL Hgb 9.0 L (14.0-18.0) g/dL Hct 27.6 L (42-52) % MCV 96.2 (80-100) fL MCH 31.4 (25-34) pg MCHC 32.6 (32-36) g/dL RDW Std Deviation 52.0 H (36.4-46.3) fL RDW Coeff of Collin 14.7 H (11.5-14.5) % Plt Count 183 (130-400) K/uL MPV 9.9 (7.4-10.4) fL Immature Gran % (Auto) 1.1 % Neut % (Auto) 83.0 % Lymph % (Auto) 10.9 % [place] % (Auto) 4.7 % Eos % (Auto) 0.3 % Baso % (Auto) 0.0 % Neut # (Auto) 5.27 (1.4-6.5) K/uL Lymph # (Auto) 0.69 L (1.2-3.4) K/uL [place] # (Auto) 0.30 (0.11-0.59) K/uL Eos # (Auto) 0.02 (0-0.5) K/uL Baso # (Auto) 0.00 (0-0.2) K/uL Immature Gran # (Auto) 0.07 H (0.00-0.02) K/uL PT 12.1 H (9.0-12.0) Seconds INR 1.1 (0.9-1.1) Sodium 135 L (136-145) mmol/L Potassium 3.9 (3.5-5.1) mmol/L Chloride 99 (98-107) mmol/L Carbon Dioxide 23 (21-32) mmol/L Anion Gap 13 H (3-11) BUN 22 (6-23) mg/dl Creatinine 1.14 (0.6-1.4) mg/dl Est Cr Clr Drug Dosing 56.9 ml/min Est GFR ( Amer) 72.5 ml/min Est GFR (Non-Af Amer) 62.6 ml/min BUN/Creatinine Ratio 19.3 (10-20) Glucose 208 H (70-99(Fasting)) mg/dl Lactate (0.4-2.0) mmol/L Calcium 9.0 (8.5-10.1) mg/dl Magnesium 1.8 (1.7-2.4) mg/dl Total Bilirubin 0.8 (0.2-1.0) mg/dl AST 23 (13-39) U/L ALT 18 (7-52) U/L Alkaline Phosphatase 53 (34-104) U/L Troponin I High Sens 215.2 H* D (0-20) pg/ml Total Protein 6.4 (6.0-8.3) gm/dl Albumin 3.6 (3.4-5.0) gm/dl Globulin 2.8 (2.5-4.0) gm/dl Albumin/Globulin Ratio 1.3 (0.9-2) Procalcitonin (0-0.5) ng/ml Urine Color Urine Appearance (Clear) Urine pH (4.5-7.5) Ur Specific Golden (1.000-1.030) Urine Protein (Negative) Urine Glucose (UA) (Negative) Urine Ketones (Negative) Urine Blood (Negative) Urine Nitrite (Negative) Urine Bilirubin (Negative) Urine Urobilinogen (Negative) Ur Leukocyte Esterase (Negative) Urine WBC (Auto) (0-5) /hpf Urine RBC (Auto) (0-4) /hpf U Hyaline Cast (Auto) (0-5) /lpf U Epithel Cells (Auto) (0-5) /lpf Urine Bacteria (Auto) (Negative) SARS-CoV-2 (PCR) (Negative) Influenza Type A (PCR) (Neg) Influenza Type B (PCR) (Neg) RSV (RT-PCR) (Neg) 04/22/22 04/22/22 04/22/22 Range/Units 08:00 08:00 08:00 WBC (4.8-10.8) K/uL RBC (4.7-6.1) M/uL Hgb (14.0-18.0) g/dL Hct (42-52) % MCV (80-100) fL MCH (25-34) pg MCHC (32-36) g/dL RDW Std Deviation (36.4-46.3) fL RDW Coeff of Collin (11.5-14.5) % Plt Count (130-400) K/uL MPV (7.4-10.4) fL Immature Gran % (Auto) % Neut % (Auto) % Lymph % (Auto) % [place] % (Auto) % Eos % (Auto) % Baso % (Auto) % Neut # (Auto) (1.4-6.5) K/uL Lymph # (Auto) (1.2-3.4) K/uL [place] # (Auto) (0.11-0.59) K/uL Eos # (Auto) (0-0.5) K/uL Baso # (Auto) (0-0.2) K/uL Immature Gran # (Auto) (0.00-0.02) K/uL PT (9.0-12.0) Seconds INR (0.9-1.1) Sodium (136-145) mmol/L Potassium (3.5-5.1) mmol/L Chloride (98-107) mmol/L Carbon Dioxide (21-32) mmol/L Anion Gap (3-11) BUN (6-23) mg/dl Creatinine (0.6-1.4) mg/dl Est Cr Clr Drug Dosing ml/min Est GFR ( Amer) ml/min Est GFR (Non-Af Amer) ml/min BUN/Creatinine Ratio (10-20) Glucose (70-99(Fasting)) mg/dl Lactate 3.8 H* (0.4-2.0) mmol/L Calcium (8.5-10.1) mg/dl Magnesium (1.7-2.4) mg/dl Total Bilirubin (0.2-1.0) mg/dl AST (13-39) U/L ALT (7-52) U/L Alkaline Phosphatase (34-104) U/L Troponin I High Sens (0-20) pg/ml Total Protein (6.0-8.3) gm/dl Albumin (3.4-5.0) gm/dl Globulin (2.5-4.0) gm/dl Albumin/Globulin Ratio (0.9-2) Procalcitonin 0.25 (0-0.5) ng/ml Urine Color Urine Appearance (Clear) Urine pH (4.5-7.5) Ur Specific Golden (1.000-1.030) Urine Protein (Negative) Urine Glucose (UA) (Negative) Urine Ketones (Negative) Urine Blood (Negative) Urine Nitrite (Negative) Urine Bilirubin (Negative) Urine Urobilinogen (Negative) Ur Leukocyte Esterase (Negative) Urine WBC (Auto) (0-5) /hpf Urine RBC (Auto) (0-4) /hpf U Hyaline Cast (Auto) (0-5) /lpf U Epithel Cells (Auto) (0-5) /lpf Urine Bacteria (Auto) (Negative) SARS-CoV-2 (PCR) NEGATIVE (Negative) Influenza Type A (PCR) Negative (Neg) Influenza Type B (PCR) Negative (Neg) RSV (RT-PCR) Negative (Neg) 04/22/22 04/22/22 Range/Units 08:09 10:19 WBC (4.8-10.8) K/uL RBC (4.7-6.1) M/uL Hgb (14.0-18.0) g/dL Hct (42-52) % MCV (80-100) fL MCH (25-34) pg MCHC (32-36) g/dL RDW Std Deviation (36.4-46.3) fL RDW Coeff of Collin (11.5-14.5) % Plt Count (130-400) K/uL MPV (7.4-10.4) fL Immature Gran % (Auto) % Neut % (Auto) % Lymph % (Auto) % [place] % (Auto) % Eos % (Auto) % Baso % (Auto) % Neut # (Auto) (1.4-6.5) K/uL Lymph # (Auto) (1.2-3.4) K/uL [place] # (Auto) (0.11-0.59) K/uL Eos # (Auto) (0-0.5) K/uL Baso # (Auto) (0-0.2) K/uL Immature Gran # (Auto) (0.00-0.02) K/uL PT (9.0-12.0) Seconds INR (0.9-1.1) Sodium (136-145) mmol/L Potassium (3.5-5.1) mmol/L Chloride (98-107) mmol/L Carbon Dioxide (21-32) mmol/L Anion Gap (3-11) BUN (6-23) mg/dl Creatinine (0.6-1.4) mg/dl Est Cr Clr Drug Dosing ml/min Est GFR ( Amer) ml/min Est GFR (Non-Af Amer) ml/min BUN/Creatinine Ratio (10-20) Glucose (70-99(Fasting)) mg/dl Lactate 1.2 (0.4-2.0) mmol/L Calcium (8.5-10.1) mg/dl Magnesium (1.7-2.4) mg/dl Total Bilirubin (0.2-1.0) mg/dl AST (13-39) U/L ALT (7-52) U/L Alkaline Phosphatase (34-104) U/L Troponin I High Sens (0-20) pg/ml Total Protein (6.0-8.3) gm/dl Albumin (3.4-5.0) gm/dl Globulin (2.5-4.0) gm/dl Albumin/Globulin Ratio (0.9-2) Procalcitonin (0-0.5) ng/ml Urine Color Yellow Urine Appearance Clear (Clear) Urine pH 7.0 (4.5-7.5) Ur Specific Golden 1.013 (1.000-1.030) Urine Protein 1+ H (Negative) Urine Glucose (UA) Negative (Negative) Urine Ketones Negative (Negative) Urine Blood 1+ H (Negative) Urine Nitrite Negative (Negative) Urine Bilirubin Negative (Negative) Urine Urobilinogen Negative (Negative) Ur Leukocyte Esterase Negative (Negative) Urine WBC (Auto) 1-5 (0-5) /hpf Urine RBC (Auto) 10-30 H (0-4) /hpf U Hyaline Cast (Auto) 1-5 (0-5) /lpf U Epithel Cells (Auto) 0-5 (0-5) /lpf Urine Bacteria (Auto) Negative (Negative) SARS-CoV-2 (PCR) (Negative) Influenza Type A (PCR) (Neg) Influenza Type B (PCR) (Neg) RSV (RT-PCR) (Neg) Imaging Data Radiologist's Impression: Chest X-Ray 04/22/22 07:59 SINGLE VIEW CHEST CLINICAL HISTORY: Sepsis. FINDINGS: An AP, portable, upright chest radiograph is compared to study dated 04/15/2022. The examination is degraded by portable technique and patient rotation. A 2-lead cardiac pacemaker is unchanged in position. The patient is status post midline sternotomy. The heart is enlarged noting atherosclerotic calcification of the thoracic aorta. Patchy bilateral airspace opacities are seen throughout both lungs, most confluent in the right mid to upper lung. No large pleural effusion or pneumothorax is seen. The skeletal structures are osteopenic. There are healed right-sided rib fractures. IMPRESSION: 1. Cardiomegaly and cardiac pacemaker. 2. There are bilateral airspace opacities. This could represent multifocal pneumonia and/or pulmonary edema. Clinical correlation will be required and radiographic follow-up to resolution is recommended ACT 112: Negative or not required by law. Electronically signed by: Dante Lopez M.D. 04/22/2022 8:[address] 04/22/22 08:41 CT SCAN OF THE CERVICAL SPINE CLINICAL HISTORY: Trauma. Fall. History of multiple myeloma. COMPARISON STUDY: No priors. TECHNIQUE: CT scan of the cervical spine is performed from the skull base to the upper thoracic spine. Images are reviewed in the axial, sagittal, and coronal planes. IV contrast was not administered for this examination. A dose lowering technique was utilized adhering to the principles of ALARA. CT DOSE: 999.97 mGy.cm FINDINGS: Skeletal structures: The skeletal structures are osteopenic. There is no evidence of fracture or subluxation involving the cervical spine. Vertebral body height and alignment are maintained. The odontoid process and lateral masses are intact. The atlantoaxial articulation is preserved noting mild productive degenerative change. The spinous processes appear intact. Scattered osteolytic lesions are seen throughout the cervical spine and consistent with the reported history of multiple myeloma. Some of these show sclerosis which likely represents treatment related change. There is mild multilevel facet arthropathy. Intervertebral discs: There is mild to moderate disc space narrowing seen throughout the cervical spine. Central canal: Small posterior disc osteophyte complexes at C5-C6 at C6-C7 may c ontribute to mild acquired compromise the central canal. Soft tissues: The prevertebral and paraspinous soft tissues are within normal limits. There is atherosclerotic calcification of the carotid bulbs. Pacemaker leads are noted at the left thoracic inlet there Calvarium: The visualized calvarium at the skull base appears intact. Brain parenchyma: Partially visualized brain parenchyma at the skull base is within normal limits. Sinuses and mastoids: The visualized paranasal sinuses are clear. The mastoid air cells are well pneumatized. Lung apices: Emphysematous change is noted at the apices. IMPRESSION: 1. There is no evidence of fracture or subluxation involving the cervical spine. 2. Osteolytic lesions scattered throughout the cervical spine likely correspond to the reported history of multiple myeloma. 3. Emphysema. ACT 112: Negative or not required by law. Electronically signed by: Dante Lopez M.D. 04/22/2022 9:[address] 04/22/22 08:41 CT head/brain wo con CLINICAL HISTORY: 76 years-old Male with trauma. Acute head trauma status post fall TECHNIQUE: Multiple axial CT images of the head were obtained without contrast. A dose lowering technique was utilized adhering to the principles of ALARA. COMPARISON: CT cervical spine of same day FINDINGS: No acute intracranial hemorrhage, midline shift, intracranial mass, hyd rocephalus, territorial ischemia or abnormal extra-axial collection. Involutional changes of the brain parenchyma. White matter hypodensities favor chronic microvascular ischemic disease. Cerebral vascular calcifications. The calvarium is intact. Lucent focus of the occipital calvarium on image 19 is nonspecific and may represent an arachnoid granulation. Prior bilateral lens repair. The paranasal sinuses, mastoid air cells, and middle ear cavities are clear. IMPRESSION: No acute intracranial abnormality or calvarial fracture. ACT 112: Negative or not required by law. The above report was generated using voice recognition software. It may contain grammatical, syntax or spelling errors. Electronically signed by: Uziel Nieto M.D. 04/22/2022 9:54 AM Chest CTA 04/22/22 10:36 CT angio chest PE protocol CLINICAL HISTORY: Shortness of breath COMPARISON STUDY: Portable chest from 04/22/2022 CT DOSE: 499.74 mGycm TECHNIQUE: CT Angio of the chest was performed.followed by image post processing with coronal, and sagittal MIP reformats. Contrast Volume: ml FINDINGS: Vasculature: There is homogeneous perfusion of the pulmonary vasculature bilaterally. No intraluminal filling defects or evidence for pulmonary embolus is seen. Airway: The airway is clear. No endobronchial lesion is identified. Lungs: Moderate to marked bullous emphysematous changes are present involving the upper lobes bilaterally, right greater than left. The patchy airspace opacities described on the portable chest radiograph represents the preserved lung parenchyma with minimal diffuse groundglass opacity present. No confluent alveolar opacities or air bronchograms are seen. Pleura: There is no evidence for pleural effusion. There is no evidence for pneumothorax. Mediastinum: There is no evidence for pathologic adenopathy. The heart is enlarged with permanent cardiac pacer in place. Coronary artery calcifications present. The patient is status post previous sternotomy. The thoracic aorta is within normal limits. Atherosclerotic calcification is present. There is no evidence for pericardial effusion. Osseous structures: There is no acute osseous pathology. Degenerative changes are present within the spine. Impression: 1. No CTA evidence for pulmonary embolus. 2. Marked bullous emphysematous changes involving the upper lobes bilaterally, right greater than left. 3. The bilateral airspace opacities actually represent preserved lung with groundglass opacity present. This most likely represents mild alveolar edema. 4. No confluent alveolar opacities were bronchograms are seen. 5. Cardiomegaly with extensive coronary artery calcification and atherosclerotic calcification of the aorta. ACT 112: Negative or not required by law. Electronically signed by: Juan Snyder M.D. 04/22/2022 12:11 PM ECG Data Attestation: I personally reviewed and interpreted this ECG as follows: Indication: + SOB/dyspnea Rate (beats per minute): 98 Rhythm: + normal sinus ECG Intervals/blocks: + Normal QRS and + Normal QT ECG Gordon: + Normal ECG ST segments: + Nonspecific ST abnormalities MDM Narrative An order was placed for continuous cardiac monitoring. The monitor shows a rate of _77_ with _normal sinus_ rhythm. This is a 76 yo male brought in from home after a fall. Patient with increasing weakness, lightheadedness and SOB over the last several days. Patient with evidence of head trauma on exam, no other trunk or extremity trauma on exam. Patient denied other complaints of pain from trauma or symptoms suggestive of head injury. VS stable. Patient was noted to have mild hypoxia and was placed on NC. Other VS stable. Patient did have a fever and was given tylenol. Patient is anticoagulated due to hx of a.fib so was sent for CT head/cspine whic h was reassuring. CXR without acute traumatic injury but pneumonia noted. Cultures added and patient started on cefepime initially. While in the ER awaiting additional labs/imaging results, pt did become hypotensive. IVF were opened to a bolus and BP improved. Patient did receive 30 ml/kg based on body weight. Lactic acidosis resolved. Rate slowed with improvement due to cardiac hx. Patient given duoneb with improvement in breathing. No additional steroids given due to chronic steroid use and hx of DM. Will defer to hospitalist team. CT chest also performed. Patient and kept aware of all results, verbalized understanding and were in agreement with the plan. Case discussed with hospitalist team. Concern for evolving sepsis with hypoxia in former smoker with cardiac history. Nasal swabs pending at time of discussion. Anemia appears stable compared to baseline. I suspect elevated troponin secondary to infection and demand. I have a low suspicion for any additional occult traumatic injury. Impression & Plan Sepsis, Elevated troponin, Hypoxia, Anemia, CHI (closed head injury), Pneumonia, Contusion of face, Abrasion of face Discharge Plan Visit Data Chief Complaint: Fall Stated Complaint: fall ED Provider: Tyesha Wylie Discharge Problem: Sepsis, Elevated troponin, Hypoxia, Anemia, CHI (closed head injury), Pneumon ia, Contusion of face, Abrasion of face Patient Disposition: Admitted As Inpatient Discharge Instructions Interventions: ED Discharge Assessment Last Done: 04/22/22 13:49 Discharge Problem: Sepsis Qualifiers: Sepsis type: sepsis due to unspecified organism Sepsis acute organ dysfunction status: with acute organ dysfunction Severe sepsis acute organ dysfunction type: acute respiratory failure Acute respiratory failure type: with hypoxia Severe sepsis shock status: without septic shock Qualified Code(s): A41.9 - Sepsis, unspecified organism Anemia Qualifiers: Anemia type: unspecified type Qualified Code(s): D64.9 - Anemia, unspecified CHI (closed head injury) Qualifiers: Encounter type: initial encounter Qualified Code(s): S09.90XA - Unspecified injury of head, initial encounter Pneumonia Qualifiers: Pneumonia type: due to unspecified organism Laterality: bilateral Lung locati on: unspecified part of lung Qualified Code(s): J18.9 - Pneumonia, unspecified organism Contusion of face Qualifiers: Encounter type: initial encounter Qualified Code(s): S00.83XA - Contusion of other part of head, initial encounter Abrasion of face Qualifiers: Encounter type: initial encounter Qualified Code(s): S00.81XA - Abrasion of other part of head, initial encounter
[2022-04-22] MEDS ORDERED: APIXABAN 5 MG TABLET PO STA (13:31)
--- NOTE | 2022-04-22 13:40 | History & Physical Report ---
Date of Service April 22, 2022 Assessment & Plan (1) Sepsis: (2) Fever: (3) Hypoxia: (4) Elevated troponin: (5) Weakness: (6) Multiple myeloma: (7) Paroxysmal atrial fibrillation: (8) CHF (congestive heart failure): (9) CAD (coronary artery disease): (10) Type 2 diabetes mellitus: Plan: This is a 76-year-old male who has significant past medical history of insulin- dependent T2DM, chronic ischemic heart disease, history of CABG x4 in 1993, history of TBS status post PPM, chronic HFrEF, PAF anticoagulated on Eliquis, HLD, diabetic neuropathy, multiple myeloma with lytic bone lesions who presents ED secondary to weakness, fell and hit head prior to arrival. Probable Sepsis Fever Hypoxia Lactic acidosis -now resolved Patient presented with fever, hypotension and lactic acidosis Initial chest x-ray concerning for pneumonia, CTA negative for PE representing mild alveolar edema Blood cultures pending, Lyme and Anaplasma ordered Admit to PCU Continue with broad-spectrum antibiotics with IV cefepime and oral Doxy MRSA swab ordered, if + will add vanco given improved lactic acidosis and improvement in BP will not administer further IVF in setting of known HFrEF and imaging concerning for alveolar edema await blood cultures source of sepsis unknown at this time, Possible PNA Shortness of Breath pt w/ complaint of SOB over last several weeks he does have a former smoking hx and CT findings consistent with emphysema he is following Pulm Dr. Martinez was dx with COPD and ILD- start on mdi but not using ILD unknown cause, thought maybe amiodarone so this was discontinued he was ordered 2L of O2 at night but pt states he has not yet received CAD w/ hx of CABG x 4 Chronic HFrEF TBS s/p PPM PAF Elevated troponin last echo 02/2022 ef 45%, grade 2 DD elevated trop likely in setting of demand ischemia with sepsis, hypotension pt w/o chest pain or EKG findings will repeat echo to assess EF continue ASA, eliquis, metoprolol, imdur, statin will hold torsemide and kcl for now until volume status/blood pressure reassessed by a.m. provider - would resume if stable cycle trops pt well established with cardiology, will consult Fall Forehead contusion Generalized weakness consult PT/OT CT head/Cspine negative for acute abnormality IDDM 2 a1c 7.7 12/15/21 obtain a1c in a.m. lantus/novolog per protocol L diabetic heel wound established with wound care consult wound Multiple myeloma with lytic bone lesions Follows [facility] oncology, Dr. Garcia Last treatment of Velcade was 04/21, receiving weekly on Morphine for bone pain DVT ppx: Eliquis Diet: Carb consistent, Boost GC BID per Dispo: PCU FULL CODE PCP: Renaldo Pt was seen and examined in collaboration with Dr. Hwang, please see addendum History of Present Illness Chief Complaint: Weakness, fell and hit head. Primary Care Provider: Landen Macario, This is a 76-year-old male who has significant past medical history of insulin- dependent T2DM, chronic ischemic heart disease, history of CABG x4 in 1993, history of TBS status post PPM, chronic HFrEF, PAF anticoagulated on Eliquis, HLD, diabetic neuropathy, multiple myeloma with lytic bone lesions who presents ED secondary to weakness, fell and hit head prior to arrival. Patient states last evening he developed chills. He also felt more short of breath when ambulating to and from the bathroom. He woke up today around 6 AM and again felt short of breath walking into the bathroom. Something fell on the floor and he bent down to pick it up when he fell over and struck his head on the toilet. He did sustain a mild abrasion to his forehead but otherwise denies any loss of consciousness. Due to being on Eliquis called 911. Patient states over the last several months he has felt unwell. He was diagnosed with multiple myeloma back in June and has been receiving oral and infusion chemotherapy. Currently he is only receiving infusion chemotherapy of Velcade with last treatment of 04/21/2022. He admits to continued weight loss, muscle wasting of his lower extremities, increased inability to ambulate and generalized weakness. Per at bedside he has also been having lower blood pressure over the last 2 to 3 weeks. After chemotherapy yesterday his blood pressure was 80 over 50s. He also admits to increasing shortness of breath over the last 3 to 4 days. His shortness of breath occurs at rest as well as with exertion. He denies any documented fever or sweats, lightheadedness, dizziness, syncope, chest pain, palpitations, nausea, vomiting, hematemesis, diarrhea or abdominal pain. He further denies dysuria, increased urgency or frequency with urination, melena or hematochezia. He does suffer from opioid-induced constipation due to taking morphine for his bone lesion pain. His last bowel movement was yesterday. He did not take any medications today. He denies any sick contacts, tick or insect bites. In ED patient presented with a fever of 39.3. He was also found to be hypoxic and placed on submental oxygen. Initial chest x-ray was concerning for bibasilar pneumonia. He did have lactic acidosis which resolved with 2 L of IV fluid resuscitation. His troponin was also elevated at 215.2. Blood cultures were obtained. He was started on IV cefepime for broad-spectrum antibiotics. His respiratory panel with SARS-CoV-2, influenza and RSV was negative. Head CT and cervical spine CT were negative for acute fracture from fall. Cervical spine CT did reveal lytic lesions in the cervical spine. Chest CTA did reveal emphysema, no PE, mild alveolar edema present. Of significance he was seen in ED on 04/15/2022 secondary to low blood pressure, chills, malaise and weakness. Initially his lactic acid was 2.5 and creatinine elevated to 1.6. Improved with 500 cc bolus. He was discharged to home. He also follows wound care for a left heel wound. Allergies Allergy/AdvReac Type Severity Reaction Status Date / Time tizanidine Allergy Unknown Unknown Verified 04/16/22 15:19 Home Medications Medication Instructions Recorded Confirmed Type acetaminophen 650 mg 650 mg PO Q8H PRN tab 09/28/19 04/22/22 History tablet,extended release (Tylenol Arthritis Pain) aspirin 81 mg tablet,delayed 81 mg PO DAILY 09/28/19 04/22/22 History release apixaban 5 mg tablet (Eliquis) 5 mg PO BID 06/25/20 04/22/22 History atorvastatin 40 mg tablet 40 mg PO DAILY 06/25/20 04/22/22 History insulin glargine 100 unit/mL (3 40 unit SUBCUT QPM 06/25/20 04/22/22 History mL) subcutaneous pen (Basaglar KwikPen U-100 Insulin) isosorbide mononitrate 30 mg 30 mg PO DAILY 06/25/20 04/22/22 History tablet,extended release 24 hr liraglutide 0.6 mg/0.1 mL (18 mg/3 1.2 mg SUBCUT DAILY 09/30/21 04/22/22 History mL) subcutaneous pen injector (Cignifi 2-Jed) ondansetron 8 mg disintegrating 8 mg PO Q8H PRN 09/30/21 04/22/22 History tablet prochlorperazine maleate 10 mg 10 mg PO Q6H PRN 09/30/21 04/22/22 History tablet polyethylene glycol 3350 17 gram 17 g PO DAILY PRN #15 ea 10/05/21 04/22/22 Rx oral powder packet (Miralax) torsemide 20 mg tablet 10 mg PO QAM #30 tab 10/10/21 04/22/22 Rx dexamethasone 4 mg tablet 20 mg PO WK MDD 5 tablets weekly 11/01/21 04/22/22 History insulin aspart U-100 100 unit/mL 0 unit SUBCUT UD MDD 28 units per 11/01/21 04/22/22 History (3 mL) subcutaneous pen (Novolog day Flexpen U-100 Insulin aspart) nitroglycerin 0.4 mg sublingual 0.4 mg SUBLINGUAL .Q 5 MIN PRN MDD 11/01/21 04/22/22 History tablet 3 doses in 15 min omega-3 fatty acids 1,000 mg 1,000 mg PO BID 04/15/22 04/22/22 History capsule metoprolol succinate 50 mg 75 mg PO DAILY tab 04/16/22 04/22/22 History tablet,extended release 24 hr (Toprol XL) acyclovir 400 mg tablet 400 mg PO BID 04/22/22 04/22/22 History docusate sodium 100 mg capsule 100 mg PO BID 04/22/22 04/22/22 History (Colace) doxycycline hyclate 100 mg tablet 25 mg PO BID 04/22/22 04/22/22 History ferrous sulfate 325 mg (65 mg 325 mg PO DAILY 04/22/22 04/22/22 History iron) tablet gabapentin 300 mg capsule 300 mg PO DAILY 04/22/22 04/22/22 History mecobalamin (vitamin B12) 1,000 1,000 mcg PO DAILY 04/22/22 04/22/22 History mcg chewable tablet (B12 Active) morphine 15 mg immediate release 15 mg PO Q6H PRN 04/22/22 04/22/22 History tablet potassium chloride 10 mEq 10 meq PO DAILY 04/22/22 04/22/22 History capsule,extended release Past Med/Surg History Medical History Atrial fibrillation continue eliquis and high dose metoprolol CAD (coronary artery disease) Hallux rigidus of left foot "S/p multiple surgeries" History of basal cell carcinoma History of melanoma in situ History of pilonidal cyst HLD (hyperlipidemia) Pacemaker Peripheral vascular disease of lower extremity Tachy-noman syndrome Pt admitted for elective ppm due to TBS; underwent procedure without any complications; monitored overnight and discharged home. Type 2 diabetes mellitus Surgical History History of bone marrow biopsy History of cataract surgery History of foot surgery S/P CABG x 4 S/P Mohs surgery for basal cell carcinoma Family History Mother Lymphoma Social History (Updated 04/22/22 @ 13:49 by Maureen Brown PA-C) Smoking Status: Former smoker Tobacco Type: Cigarettes Cigarettes Per Day: 1-2 times a month; Smoking End Date: 1979; Number of Years Since Quit: 40; Second Hand Exposure: No; Hx Alcohol Use: No Hx Substance Use: No Preferred Language: Lithuanian Communication Ability: Effective Manager Fund Required: No Beliefs That Will Affect Care: None marital status: Current Living Situation: Spouse current occupational status: retired Other Information That Helps Us Care for You: No Feels Safe at Home: Yes Safety Concerns: Feels Safe At This Time Assistive Devices: Denture - Upper, Glasses and Walker Review of Systems Review of Systems: All systems reviewed & are unremarkable except as noted in HPI & below Physical Exam Physical Exam: Constitutional: WD/WN, vitals as above, NAD, sitting up in bed, pleasant, conversing easily Head: Normocephalic, abrasion to L frontal forehead Eyes: PERRL, conjunctivae normal, anicteric sclerae ENMT: external ear and nose normal, oropharynx normal Neck: trachea midline, no thyromegaly normal visual inspection Respiratory: normal respiratory effort, on 3L of O2 via NC, lungs clear to auscultation, bibasilar crackles noted, no wheeze or rhonchi. Normal insp/exp effort, no accessory muscle use Cardiovascular: RRR, no murmur, no edema Vessels: no JVD or carotid bruit Chest: normal inspection of chest Abdomen: normal bowel sounds, soft, nontender, no hepatosplenomegaly Musculoskeletal: no cyanosis or clubbing, AROM x 4 Skin: no rashes, warm and dry normal turgor Neurologic: PERRL, EOMI, accommodation nl, no face palsy, no dysarthria CN's II-XI intact bilaterally and moves all extremities Psychiatric: A+Ox3, euthymic affect Lymphatic: no cervical or axillary lymphadenopathy : deferred Results & Data Results & Data ([facility]) Vital Signs (Past 12 Hours) Vital Signs Temp Pulse Resp BP Pulse Ox 04/22/22 13:15 78 17 116/63 91 04/22/22 13:00 75 17 106/55 L 100 04/22/22 12:45 69 14 113/58 L 100 04/22/22 12:31 69 17 98/40 L 100 04/22/22 12:15 70 18 100/55 L 100 04/22/22 12:00 72 15 98/54 L 100 04/22/22 11:45 72 15 100/55 L 98 04/22/22 11:32 78 23 106/58 L 97 04/22/22 11:00 75 17 97/55 L 100 04/22/22 10:45 73 15 97/57 L 100 04/22/22 10:30 75 15 102/56 L 99 04/22/22 10:28 37.0 C 04/22/22 10:15 75 15 95/55 L 100 04/22/22 10:02 77 17 102/55 L 99 04/22/22 10:00 78 16 99/55 L 99 04/22/22 09:30 80 17 95/53 L 99 04/22/22 09:19 78 16 93/48 L 99 04/22/22 09:12 80 23 83/48 L 99 04/22/22 09:00 84 13 82/51 L 99 04/22/22 08:30 94 H 21 99/56 L 96 04/22/22 08:08 81 L 04/22/22 07:59 39.3 C H 108 H 20 109/54 L 94 Diagnostic Findings Chest X-Ray 04/22/22 07:59 SINGLE VIEW CHEST CLINICAL HISTORY: Sepsis. FINDINGS: An AP, portable, upright chest radiograph is compared to study dated 04/15/2022. The examination is degraded by portable technique and patient rotation. A 2-lead cardiac pacemaker is unchanged in position. The patient is status post midline sternotomy. The heart is enlarged noting atherosclerotic calcification of the thoracic aorta. Patchy bilateral airspace opacities are seen throughout both lungs, most confluent in the right mid to upper lung. No large pleural effusion or pneumothorax is seen. The skeletal structures are osteopenic. There are healed right-sided rib fractures. IMPRESSION: 1. Cardiomegaly and cardiac pacemaker. 2. There are bilateral airspace opacities. This could represent multifocal pneumonia and/or pulmonary edema. Clinical correlation will be required and radiographic follow-up to resolution is recommended ACT 112: Negative or not required by law. Electronically signed by: Dante Lopez M.D. 04/22/2022 8:[address] 04/22/22 08:41 CT SCAN OF THE CERVICAL SPINE CLINICAL HISTORY: Trauma. Fall. History of multiple myeloma. COMPARISON STUDY: No priors. TECHNIQUE: CT scan of the cervical spine is performed from the skull base to the upper thoracic spine. Images are reviewed in the axial, sagittal, and coronal planes. IV contrast was not administered for this examination. A dose lowering technique was utilized adhering to the principles of ALARA. CT DOSE: 999.97 mGy.cm FINDINGS: Skeletal structures: The skeletal structures are osteopenic. There is no evidence of fracture or subluxation involving the cervical spine. Vertebral body height and alignment are maintained. The odontoid process and lateral masses are intact. The atlantoaxial articulation is preserved noting mild productive degenerative change. The spinous processes appear intact. Scattered osteolytic lesions are seen throughout the cervical spine and consistent with the reported history of multiple myeloma. Some of these show sclerosis which likely represents treatment related change. There is mild multilevel facet arthropathy. Intervertebral discs: There is mild to moderate disc space narrowing seen throughout the cervical spine. Central canal: Small posterior disc osteophyte complexes at C5-C6 at C6-C7 may contribute to mild acquired compromise the central canal. Soft tissues: The prevertebral and paraspinous soft tissues are within normal limits. There is atherosclerotic calcification of the carotid bulbs. Pacemaker leads are noted at the left thoracic inlet there Calvarium: The visualized calvarium at the skull base appears intact. Brain parenchyma: Partially visualized brain parenchyma at the skull base is within normal limits. Sinuses and mastoids: The visualized paranasal sinuses are clear. The mastoid air cells are well pneumatized. Lung apices: Emphysematous change is noted at the apices. IMPRESSION: 1. There is no evidence of fracture or subluxation involving the cervical spine. 2. Osteolytic lesions scattered throughout the cervical spine likely correspond to the reported history of multiple myeloma. 3. Emphysema. ACT 112: Negative or not required by law. Electronically signed by: Dante Lopez M.D. 04/22/2022 9:[address] 04/22/22 08:41 CT head/brain wo con CLINICAL HISTORY: 76 years-old Male with trauma. Acute head trauma status post fall TECHNIQUE: Multiple axial CT images of the head were obtained without contrast. A dose lowering technique was utilized adhering to the principles of ALARA. COMPARISON: CT cervical spine of same day FINDINGS: No acute intracranial hemorrhage, midline shift, intracranial mass, hydrocephalus, territorial ischemia or abnormal extra-axial collection. Involutional changes of the brain parenchyma. White matter hypodensities favor chronic microvascular ischemic disease. Cerebral vascular calcifications. The calvarium is intact. Lucent focus of the occipital calvarium on image 19 is nonspecific and may represent an arachnoid granulation. Prior bilateral lens repair. The paranasal sinuses, mastoid air cells, and middle ear cavities are clear. IMPRESSION: No acute intracranial abnormality or calvarial fracture. ACT 112: Negative or not required by law. The above report was generated using voice recognition software. It may contain grammatical, syntax or spelling errors. Electronically signed by: Uziel Nieto M.D. 04/22/2022 9:54 AM Chest CTA 04/22/22 10:36 CT angio chest PE protocol CLINICAL HISTORY: Shortness of breath COMPARISON STUDY: Portable chest from 04/22/[address]22 CT DOSE: 499.74 mGycm TECHNIQUE: CT Angio of the chest was performed.followed by image post processing with coronal, and sagittal MIP reformats. Contrast Volume: ml FINDINGS: Vasculature: There is homogeneous perfusion of the pulmonary vasculature bilaterally. No intraluminal filling defects or evidence for pulmonary embolus is seen. Airway: The airway is clear. No endobronchial lesion is identified. Lungs: Moderate to marked bullous emphysematous changes are present involving the upper lobes bilaterally, right greater than left. The patchy airspace opacities described on the portable chest radiograph represents the preserved lung parenchyma with minimal diffuse groundglass opacity present. No confluent alveolar opacities or air bronchograms are seen. Pleura: There is no evidence for pleural effusion. There is no evidence for pneumothorax. Mediastinum: There is no evidence for pathologic adenopathy. The heart is enlarged with permanent cardiac pacer in place. Coronary artery calcifications present. The patient is status post previous sternotomy. The thoracic aorta is within normal limits. Atherosclerotic calcification is present. There is no evidence for pericardial effusion. Osseous structures: There is no acute osseous pathology. Degenerative changes are present within the spine. Impression: 1. No CTA evidence for pulmonary embolus. 2. Marked bullous emphysematous changes involving the upper lobes bilaterally, right greater than left. 3. The bilateral airspace opacities actually represent preserved lung with groundglass opacity present. This most likely represents mild alveolar edema. 4. No confluent alveolar opacities were bronchograms are seen. 5. Cardiomegaly with extensive coronary artery calcification and atherosclerotic calcification of the aorta. ACT 112: Negative or not required by law. Electronically signed by: Juan Snyder M.D. 04/22/2022 12:11 PM Medications Administered Medication List Sodium Chloride (Nss 1000ml) 1,000 mls @ 250 mls/hr IV .Q4H RIVERA Stop: 05/22/22 07:59 Last Admin: 04/22/22 08:36 Dose: 250 mls/hr Documented by: [id number] Discontinued Medications Albuterol (Albut/Ipratrop 3mg/0.5mg Neb 3 Ml Vial) 3 ml NEB NOW STA; Protocol Stop: 04/22/22 12:27 Last Admin: 04/22/22 12:44 Dose: 3 ml Documented by: [id number] Cefepime HCl (Maxipime) 2,000 mg in 20 mls @ 5 mls/min IV NOW STA; Protocol Stop: 04/22/22 08:48 Last Admin: 04/22/22 08:48 Dose: 5 mls/min Documented by: [id number] Acetaminophen (Ofirmev) 1,000 mg in 100 mls @ 400 mls/hr IV NOW STA Stop: 04/22/22 09:11 Last Infusion: 04/22/22 09:29 Dose: 0 mls/hr Documented by: [id number] Admin: 04/22/22 09:14 Dose: 400 mls/hr Documented by: [id number] Sodium Chloride (Nss 1000ml) 1,000 mls @ 999 mls/hr IV .Q1H1M ONE Stop: 04/22/22 10:21 Last Infusion: 04/22/22 10:24 Dose: 0 mls/hr Documented by: [id number] Admin: 04/22/22 09:23 Dose: 999 mls/hr Documented by: [id number] Sodium Chloride (Nss 1000ml) 1,000 mls @ 999 mls/hr IV .Q1H1M ONE Stop: 04/22/22 11:59 Last Infusion: 04/22/22 12:15 Dose: 0 mls/hr Documented by: [id number] Admin: 04/22/22 11:14 Dose: 999 mls/hr Documented by: [id number] Ioversol (Optiray 320 125ml) 120 ml IV ONCE ONE Stop: 04/22/22 11:26 Last Admin: 04/22/22 11:26 Dose: 120 ml Documented by: [id number] ECG Rate (beats per minute): 98 Rhythm: normal sinus Additional Comments: qtc 498ms COVID-19 Results Results COVID-19 Adm Lab Results: RBC 2.87 M/uL (4.7-6.1) L 04/22/22 WBC 6.35 K/uL (4.8-10.8) 04/22/22 Hgb 9.0 g/dL (14.0-18.0) L 04/22/22 Hct 27.6 % (42-52) L 04/22/22 Plt Count 183 K/uL (130-400) 04/22/22 Neutrophils (%) (Auto) 83.0 % 04/22/22 Lymphocytes (%) (Auto) 10.9 % 04/22/22 Monocytes # (Auto) 0.30 K/uL (0.11-0.59) 04/22/22 Eosinophils # (Auto) 0.02 K/uL (0-0.5) 04/22/22 Immature Granulocyte % (Auto) 1.1 % 04/22/22 Neutrophils # (Auto) 5.27 K/uL (1.4-6.5) 04/22/22 Lymphocytes # (Auto) 0.69 K/uL (1.2-3.4) L 04/22/22 Monocytes # (Auto) 0.30 K/uL (0.11-0.59) 04/22/22 Eosinophils # (Auto) 0.02 K/uL (0-0.5) 04/22/22 Basophils # (Auto) 0.00 K/uL (0-0.2) 04/22/22 Immature Granulocyte # (Auto) 0.07 K/uL (0.00-0.02) H 04/22/22 Na 135 mmol/L (136-145) L 04/22/22 K 3.9 mmol/L (3.5-5.1) 04/22/22 Cl 99 mmol/L (98-107) 04/22/22 CO2 23 mmol/L (21-32) 04/22/22 Anion Gap 13 (3-11) H 04/22/22 BUN 22 mg/dl (6-23) 04/22/22 Creatinine 1.14 mg/dl (0.6-1.4) 04/22/22 BUN/Creatinine Ratio 19.3 (10-20) 04/22/22 Glucose Level 208 mg/dl (70-99(Fasting)) H 04/22/22 Ca 9.0 mg/dl (8.5-10.1) 04/22/22 Total Bilirubin 0.8 mg/dl (0.2-1.0) 04/22/22 AST/SGOT 23 U/L (13-39) 04/22/22 ALT/SGPT 18 U/L (7-52) 04/22/22 Alkaline Phosphatase 53 U/L (34-104) 04/22/22 Total Protein 6.4 gm/dl (6.0-8.3) 04/22/22 Albumin 3.6 gm/dl (3.4-5.0) 04/22/22 Globulin 2.8 gm/dl (2.5-4.0) 04/22/22 Albumin/Globulin Ratio 1.3 (0.9-2) 04/22/22 CRP 14.87 mg/dl (0-0.5) H 04/22/22 Procalcitonin 0.25 ng/ml (0-0.5) 04/22/22 INR 1.1 (0.9-1.1) 04/22/22 COVID-19 PCR NEGATIVE (Negative) 04/22/22 Influenza Virus Type A (PCR) Negative (Neg) 04/22/22 Influenza Virus Type B (PCR) Negative (Neg) 04/22/22 Chest X-Ray 04/22/22 Code Status & VTE Plan Code Status FULL CODE VTE Prophylaxis Plan VTE Prophylaxis will be ordered: No Supervising Physician Co-Signing Physician Notes Pt seen and examined by me, care coordinated w/ B. Kevin pls refer to her note above for further detail. Pt is a 76 yo male w/insulin-dependent T2DM, chronic ischemic heart disease, history of CABG x4 in 1993, history of TBS status post PPM, chronic HFrEF, PAF anticoagulated on Eliquis, HLD, diabetic neuropathy, multiple myeloma with lytic bone lesions who presents w/ weakness, and fall. Found to be febrile in the ED, and hypoxic. He was diagnosed with multiple myeloma in June and has been receiving oral and infusion chemotherapy. Currently he is only receiving infusion chemotherapy of Velcade , weekly, with last treatment of 04/21/2022. He admits to continued weight loss, muscle wasting of his lower extremities, increased inability to ambulate and generalized weakness. He admits to increasing shortness of breath over the last 3 to 4 days. Initial chest x-ray was concerning for bibasilar pneumonia. He did have lactic acidosis which resolved with 2 L of IV fluid resuscitation. His troponin was also elevated at 215.2. Blood cultures were obtained. He was started on IV cefepime in ED, for broad-spectrum antibiotics. On my evaluation, patient was requiring 6 L of oxygen. His breathing is nonlabored,and is able to speak in full sentences. Heart sounds seems regular. Lung sounds significant for some bibasilar crackles, no wheezing noted. Abdomen soft, nontender nondistended. No lower extremity edema. Lower extremities very thin. Discussed with the nurse at the bedside will give 20 IV Lasix now. Will obtain echo and will further discuss with cardiology. We will add vancomycin to cefepime. Close monitoring. Discussed CODE STATUS with the patient, DNR/DNI. Patient's is present at bedside. MD Eri (1) CHF (congestive heart failure) Heart failure chronicity: unspecified Heart failure type: unspecified Qualified Code(s): I50.9 - Heart failure, unspecified
[2022-04-22] MEDS ORDERED: FUROSEMIDE INJ 20 MG/2 ML VIAL IV ONE (14:56)
[2022-04-22] MEDS ORDERED: DEXTROSE 50% 50 ML SYRINGE IV PRN (14:57)
[2022-04-22] MEDS ORDERED: ALUMINUM/MAGNESIUM SUSP 30 ML UDC PO PRN (14:57)
[2022-04-22] MEDS ORDERED: CARBOHYDRATES FOR HYPOGLYCEMIA PO PRN (14:57)
[2022-04-22] MEDS ORDERED: GLUCOSE 40% GEL 15 GM TUBE PO PRN (14:57)
[2022-04-22] MEDS ORDERED: PROMETHAZINE HCL 12.5 MG in SODIUM CHLORIDE 0.9% 50 ML IV PRN (14:57)
[2022-04-22] MEDS ORDERED: ALBUT/IPRATROP 3MG/0.5MG NEB 3 ML VIAL NEB PRN (14:57)
[2022-04-22] MEDS ORDERED: GLUCOSE 10 TAB/TUBE PO PRN (14:57)
[2022-04-22] MEDS ORDERED: GLUCAGON FOR INJ 1 MG VIAL SQ PRN (14:57)
[2022-04-22] MEDS ORDERED: VANCOMYCIN CONSULT ACTIVE PRN (15:11)
[2022-04-22] MEDS ORDERED: MoRPHine SULFATE IR 15 MG TAB (IMMEDIATE RELEASE) PO PRN (15:15)
[2022-04-22] MEDS ORDERED: VANCOMYCIN HCL 1,750 MG in SODIUM CHLORIDE 0.9% 500 ML IV ONE (15:30)
[2022-04-22] MEDS: METOPROLOL SUCC 25MG EXT REL TAB PO SCH (16:30)
[2022-04-22] MEDS: DOXYCYCLINE HYCLATE 100 MG CAP PO SCH ×2 (16:30→21:31)
[2022-04-22 16:55] LABS: Lyme Ab IgM w/WB Rflx Negative (Negative)
[2022-04-22 16:57] LABS: Lyme Ab IgG w/WB Rflx Negative (Negative)
[2022-04-22] MEDS ORDERED: FUROSEMIDE INJ 20 MG/2 ML VIAL IV STA (17:19)
[2022-04-22] MEDS ORDERED: Heparin IV Adult Wt-Based Standard *NO* Bolus Protocol IV SCH (17:30)
--- NOTE | 2022-04-22 17:37 | XRay Report ---
XR chest 1V portable at 5:01 PM CLINICAL HISTORY: worsening hypoxia. COMPARISON STUDY: 04/22/2022 at 8:24 AM TECHNIQUE: 1 view of the chest FINDINGS: Single frontal view of the chest demonstrates the heart size to again be mildly enlarged status post previous cardiothoracic surgery and pacer placement. Compared to the earlier study, there is evidence for central vascular congestion. The previously identified patchy airspace opacities again represent preserved lung parenchyma as noted on the CT examination. This is unchanged. There is no evidence fo r pleural effusion. There is no acute osseous pathology. IMPRESSION: 1. Compared to the earlier examination, there is evidence for central vascular congestion. The appear ance of the lungs is otherwise unchanged from the earlier chest radiograph and interval CT examinatio n. ACT 112: Negative or not required by law. Electronically signed by: Juan Snyder M.D. 04/22/2022 5:36 PM
[2022-04-22] MEDS ORDERED: PIPERACILLIN/TAZOBACTAM 4.5 GM in DEXTROSE 5% 100 ML IV ONE (17:45)
[2022-04-22] MEDS: HEPARIN SODIUM/DEXTROSE 25,000 UNITS/500 ML BAG IV SCH (17:53)
[2022-04-22] MEDS: INSULIN ASPART PER UNIT SC SCH ×2 (17:54→21:39)
[2022-04-22] MEDS ORDERED: AMIODARONE / D5W 150 MG/100 ML BAG IV STA (18:31)
[2022-04-22] MEDS ORDERED: STAT IV Infusion **Titration per Protocol STA (18:31)
[2022-04-22] MEDS ORDERED: AMIODARONE IV BOLUS & DRIP IV STA (18:31)
[2022-04-22] MEDS ORDERED: 0.2 MICRON FILTER SET 1 EACH IV ONE (18:31)
[2022-04-22] MEDS ORDERED: AMIODARONE / D5W 360 MG/200 ML BAG IV ONE (18:41)
--- NOTE | 2022-04-22 18:45 | Cardiology Consultation ---
Date of Consultation April 22, 2022 Assessment & Plan (1) NSTEMI (non-ST elevated myocardial infarction): (2) Acute on chronic HFrEF (heart failure with reduced ejection fraction): (3) Sepsis: 76-year-old male with history of known multivessel coronary heart disease, CABG x3 remotely in 1993, significant underlying lung disease including COPD interstitial lung disease, and concerns of amiodarone toxicity, immunosuppression with multiple myeloma. Patient presents with recent progressive illness, recent lightheadedness dizziness, now with febrile illness, sources of infection include skin wounds and possible pneumonia. He likely has multifactorial respiratory insufficiency with underlying lung disease, superimposed heart failure with reduced ejection fraction. He has most recently been escalated to BiPAP therapy, and has gone into atrial fibrillation with rapid ventricular response. Patient has a history of 20 years of therapy with amiodarone, concerns of amiodarone related lung toxicity, and therefore amiodarone discontinued as outpatient 04/09/2022. Patient with development of non-ST segment elevation myocardial infarction, second HS troponin 4,000 pg/ml. This of course takes place in the setting of hypoxia. Will plan on updating echocardiogram. Therapeutics: Agree with Yadav catheter, furosemide as tolerated. Antibiotics for febrile illness. BiPAP support. I have concerns that he will not tolerate atrial fibrillation with rapid ventricular response. I think in the short-term best option is to proceed with IV amiodarone therapy overnight for rate and rhythm control. Due to concerns of pulmonary toxicity, will proceed with a short course. Given his relative low blood pressure and multiple recent readings, I do not think there is room for diltiazem or aggressive beta-annika medication to control the atrial fibrillation, and think the benefits of amiodarone in the short-term outweigh the risks in this ill hospitalized patient. History of Present Illness Attending Physician: Fracisco Hwang MD History of Present Illness Dev Hernandez is a 76-year-old male seen in cardiology consultation per the request of Maureen Brown PA-C for the evaluation of shortness of breath, pulmonary edema noted on chest CT, and elevated troponin. Patient's primary petrologist is Dr. Lane of our practice. Patient presents with generalized easy fatigability, recent lightheadedness, feeling washed out, shortness of breath, and last evening developed chills. At the time of my assessment in room 110, patient was eating his evening meal, noted significant shortness of breath requiring 6 L nasal cannula. No angina noted. Dose of IV furosemide 20 mg was being administered per order of the admission team at that time. Shortly thereafter, patient became progressively more short of breath prompting escalation to BiPAP therapy, Yadav catheter placed, additional dose of furosemide noted, and most recently, atrial fib rillation with rapid ventricular response has developed. Problem List: 1. Atherosclerotic coronary disease, status post coronary bypass grafting 1993with BISHOP to LAD, gastroepiploic artery to right posterior descending artery, and left radial arterial graft to obtuse marginal branch vessel. 2. Stable class 1-2 angina pectoris. 3. Atherosclerotic peripheral vascular disease with claudication. 4.Known left popliteal occlusion which would require bypass per most recent vascular surgical note08/2016 5. Paroxysmal atrial fibrillation with tachy-noman syndrome status post permanent pacemaker implantation April 23, 2020. 6. Hyperlipidemia. 7. Diabetes mellitus. 8. Multiple myeloma with lytic bone mets Allergies Allergy/AdvReac Type Severity Reaction Status Date / Time tizanidine Allergy Unknown Unknown Verified 04/16/22 15:19 Home Medications Medication Instructions Recorded Confirmed Type acetaminophen 650 mg 650 mg PO Q8H PRN tab 09/28/19 04/22/22 History tablet,extended release (Tylenol Arthritis Pain) aspirin 81 mg tablet,delayed 81 mg PO DAILY 09/28/19 04/22/22 History release apixaban 5 mg tablet (Eliquis) 5 mg PO BID 06/25/20 04/22/22 History atorvastatin 40 mg tablet 40 mg PO DAILY 06/25/20 04/22/22 History insulin glargine 100 unit/mL (3 40 unit SUBCUT QPM 06/25/20 04/22/22 History mL) subcutaneous pen (Basaglar KwikPen U-100 Insulin) isosorbide mononitrate 30 mg 30 mg PO DAILY 06/25/20 04/22/22 History tablet,extended release 24 hr liraglutide 0.6 mg/0.1 mL (18 mg/3 1.2 mg SUBCUT DAILY 09/30/21 04/22/22 History mL) subcutaneous pen injector (Victoza 2-Jed) ondansetron 8 mg disintegrating 8 mg PO Q8H PRN 09/30/21 04/22/22 History tablet prochlorperazine maleate 10 mg 10 mg PO Q6H PRN 09/30/21 04/22/22 History tablet polyethylene glycol 3350 17 gram 17 g PO DAILY PRN #15 ea 10/05/21 04/22/22 Rx oral powder packet (Miralax) torsemide 20 mg tablet 10 mg PO QAM #30 tab 10/10/21 04/22/22 Rx dexamethasone 4 mg tablet 20 mg PO WK MDD 5 tablets weekly 11/01/21 04/22/22 History insulin aspart U-100 100 unit/mL 0 unit SUBCUT UD MDD 28 units per 11/01/21 04/22/22 History (3 mL) subcutaneous pen (Novolog day Flexpen U-100 Insulin aspart) nitroglycerin 0.4 mg sublingual 0.4 mg SUBLINGUAL .Q 5 MIN PRN MDD 11/01/21 04/22/22 History tablet 3 doses in 15 min omega-3 fatty acids 1,000 mg 1,000 mg PO BID 04/15/22 04/22/22 History capsule metoprolol succinate 50 mg 75 mg PO DAILY tab 04/16/22 04/22/22 History tablet,extended release 24 hr (Toprol XL) acyclovir 400 mg tablet 400 mg PO BID 04/22/22 04/22/22 History docusate sodium 100 mg capsule 100 mg PO BID 04/22/22 04/22/22 History (Colace) doxycycline hyclate 100 mg tablet 25 mg PO BID 04/22/22 04/22/22 History ferrous sulfate 325 mg (65 mg 325 mg PO DAILY 04/22/22 04/22/22 History iron) tablet gabapentin 300 mg capsule 300 mg PO DAILY 04/22/22 04/22/22 History mecobalamin (vitamin B12) 1,000 1,000 mcg PO DAILY 04/22/22 04/22/22 History mcg chewable tablet (B12 Active) morphine 15 mg immediate release 15 mg PO Q6H PRN 04/22/22 04/22/22 History tablet potassium chloride 10 mEq 10 meq PO DAILY 04/22/22 04/22/22 History capsule,extended release Patient History Medical History Atrial fibrillation continue eliquis and high dose metoprolol CAD (coronary artery disease) Hallux rigidus of left foot "S/p multiple surgeries" History of basal cell carcinoma History of melanoma in situ History of pilonidal cyst HLD (hyperlipidemia) Pacemaker Peripheral vascular disease of lower extremity Tachy-noman syndrome Pt admitted for elective ppm due to TBS; underwent procedure without any complications; monitored overnight and discharged home. 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 Beliefs That Will Affect Care: None marital status: Current Living Situation: Spouse current occupational status: retired Other Information That Helps Us Care for You: No Feels Safe at Home: Yes Safety Concerns: Feels Safe At This Time Assistive Devices: Denture - Upper, Glasses and Walker Review of Systems Review of Systems: All systems reviewed & are unremarkable except as noted in HPI & below Physical Exam Physical Exam: Temp Pulse Resp BP Pulse Ox 39.8 C H 91 H 16 114/46 L 100 04/22/22 18:00 04/22/22 18:00 04/22/22 18:00 04/22/22 18:00 04/22/22 18:00 Constitutional: Chronically ill in appearance Respiratory: Decreased breath sounds noted at the bases bilaterally Cardiovascular: At time of my physical exam, regular rhythm noted, no murmurs, no edema Chest (Breasts): Additional Comments: Left-sided pacemaker pocket, clean dry and intact Musculoskeletal: Muscle wasting of the bilateral lower extremities noted Skin: Left heel wound noted. Patient also has a history of an apparent buttock wound. Neurologic: No focal neurologic deficits. Results & Data ([facility]) Laboratory Results Cardiac Enzymes 04/22/22 04/22/22 04/22/22 Range/Units 08:00 15:04 15:04 AST 23 (13-39) U/L Troponin I High Sens 215.2 H* D 4004.8 H* D (0-20) pg/ml B-Natriuretic Peptide 849 H (0-100) pg/ml Coagulation 04/22/22 04/22/22 Range/Units 08:00 15:04 PT 12.1 H (9.0-12.0) Seconds B-Natriuretic Peptide 849 H (0-100) pg/ml CBC 04/22/22 Range/Units 08:00 WBC 6.35 (4.8-10.8) K/uL RBC 2.87 L (4.7-6.1) M/uL Hgb 9.0 L (14.0-18.0) g/dL Hct 27.6 L (42-52) % Plt Count 183 (130-400) K/uL Neut # (Auto) 5.27 (1.4-6.5) K/uL Lymph # (Auto) 0.69 L (1.2-3.4) K/uL [place] # (Auto) 0.30 (0.11-0.59) K/uL Eos # (Auto) 0.02 (0-0.5) K/uL Baso # (Auto) 0.00 (0-0.2) K/uL Comprehensive Metabolic Panel 04/22/22 Range/Units 08:00 Sodium 135 L (136-145) mmol/L Potassium 3.9 (3.5-5.1) mmol/L Chloride 99 (98-107) mmol/L Carbon Dioxide 23 (21-32) mmol/L BUN 22 (6-23) mg/dl Creatinine 1.14 (0.6-1.4) mg/dl Glucose 208 H (70-99(Fasting)) mg/dl Calcium 9.0 (8.5-10.1) mg/dl AST 23 (13-39) U/L ALT 18 (7-52) U/L Alkaline Phosphatase 53 (34-104) U/L Total Protein 6.4 (6.0-8.3) gm/dl Albumin 3.6 (3.4-5.0) gm/dl Intake and Output 04/22/22 04/22/22 04/22/22 06:59 14:59 22:59 Intake Total 2100 / 3320 1220 / 3320 Output Total 1800 / 1800 Balance 2100 / 1520 -580 / 1520 Intake: IV 2100 / 3320 1220 / 3320 Acetaminophen 1,000 mg In 100 100 / 200 100 / 200 ml @ 400 mls/hr IV NOW STA Rx#: [id number] Piperacillin/Tazobactam 4.5 gm 120 / 120 In Dextrose 5% 100 ml @ 240 mls /hr IV NOW ONE Rx#:[id number] Sodium Chloride 0.9% 1000ML 1, 2000 / 3000 1000 / 3000 000 ml @ 250 mls/hr IV .Q4H [facility] Rx#:[id number] Output: Urine Amount (Catheter) 1800 / 1800 Yadav/Indwelling 1800 / 1800 Other: Weight 71.9 kg 74.9 kg Weight Measurement Method Chair Scale Built in [facility] Patient Weight 04/23/22 06:59 Weight 74.9 kg Diagnostic Findings 2D echo report March 05, 2022: Calculated LV ejection Fraction = 45% (bi-plane method of discs). There is a moderate sized septal and inferior wall motion abnormality with hypokinesis to akinesis of the segments. The left atrium is mildly enlarged (35-41 ml/m^2). The left ventricular diastolic function is moderately abnormal (grade II). There is aortic valve sclerosis without stenosis. Mild mitral regurgitation is present. Mild to moderate tricuspid regurgitation. The estimated pulmonary artery systolic pressure is 45mm Hg. Compared to last available study changes are noted as follows: Left ventricular systolic function has declined, mild pulmonary hypertension now present. EKG performed 04/22/2022, 1649: Sinus tachycardia [address] segment depression noted in the lateral leads. Compared to the tracing earlier today, ST depression somewhat more prominent. EKG 04/22/2022 1835: Atrial fibrillation with mildly elevated ventricular response, lateral ST segment depression noted on the previous tracing is somew hat improved.
--- NOTE | 2022-04-22 19:25 | Critical Care Consultation ---
Date of Consultation April 22, 2022 Assessment & Plan (1) Respiratory failure with hypoxia: Reason Critically Ill: 76-year-old male presents to the ICU with sepsis Neuro - [facility] ICU: Negative Fall with scalp contusionappears superficial. head and cervical spine unremarkable. Cardiac - NSTEMIpatient with elevated troponin 4000. Suspect this is likely demand ischemia in the setting A. fib RVR and hypoxia. Patient does have significant history of CAD with CABG x3 from 1993 and coronary calcifications noted on CT. -No chest pain on exam. No ST elevation on EKG Heparin drip -Trend troponins -Cardiology following, appreciate recommendations -Continue ASA, statin, MTP, Imdur Heart failure with preserved EFlast echo noted to have ejection fraction 45%. Repeat echo pending -Suspect this is primary cause of hypoxia with vascular congestion noted on chest x-ray -We will continue with diuresis. Careful with IV fluids A. fib RVRhistory of proximal A. fib. Now converted to normal sinus rhythm -Was recently taken off amiodarone as outpatient for concerns for lung toxici ty -Given cardiovascular history and hemodynamics, cardiology recommended IV amiodarone overnight. Decreased to 0.5 milligrams/min now that converted to sinus rhythm. -Currently on heparin drip. Restart Eliquis once appropriate -Continue MTP -Continuous monitor on telemetry Respiratory - Acute hypoxic respiratory failurepatient noted to be short of breath and mildly hypoxic by EMS in route. Became significantly hypoxic in the ED. Has history of COPD and ILD. -Unknown cause for ILD and thought possible amiodarone toxicity which was stopped. -Suspect this is most likely due to acute CHF exacerbation. It does appear that he received crystalloid bolus for treatment of sepsis. -Was initially placed on oxime mask and now on BiPAP. Appears to be improving with positive pressure support with diuretics. Weaning FiO2 -We will reassess need for further diuresis. Appears euvolemic on exam -Nebs as needed -Cannot rule out pulmonary source of infection at this point. See ID for management - Continuous monitoring pulse ox GI - Constipationcontinue bowel regimen. Patient did have 1 bowel movement following Fleet enema -Abdomen soft and nontender on exam. Nondistended -Monitor RENAL/LYTES - CKDcreatinine currently at baseline. Monitor routine BMPs replete electrolytes as indicated -Careful with IV fluids given acute heart failure/hypoxia - Foleystrict I's and O's ENDO - DM type IIcontinue with Lantus/sliding scale -ICU hyperglycemic protocol HEME - H&H stable, monitor routine CBCs Multiple myeloma with lytic bone lesionsfollows [facility]. Last treatment Velcade was 04/21, receives weekly -Continue morphine for pain ID - Sepsis?Unsure of source at this time. Patient significantly febrile and elevated lactate which is now cleared. Procalcitonin is unremarkable and no leukocytosis. -Patient did have positive MRSA culture in February from wound but appears to be healed on exam -Possible pulmonary source given hypoxia/shortness of breath -Nasal MRSA is negative -He does have history of multiple myeloma. Currently on acyclovir outpatient and will continue -Urinalysis unremarkable. Blood cultures pending -COVID-19 and influenza negative. Bio fire pending -Continue with Zosyn, vancomycin, Doxy for now LINES/IV ACCESS - Peripheral IVs DVT PROPHYLAXIS - SCDs, heparin drip I have personally spent 50 minutes of critical care time in the direct management of this patient. This is a life/limb threatening event. This includes time spent evaluating patient, direct bedside care, chart review, placing orders, interpretation of diagnostic studies, discussion with consultants, patient, and family members, as well as other required patient management activities. This time is exclusive of all separately billable procedures, and teaching time and separate from and in addition to any other critical care service time. Thank you for allowing us to participate in the care of this patient. Please refer to my attending physician's documentation for any further recommendations. (2) Sepsis: (3) NSTEMI (non-ST elevated myocardial infarction): (4) Acute on chronic HFrEF (heart failure with reduced ejection fraction): (5) Hypoxia: (6) Weakness: (7) Fever: (8) Hypotension: (9) CHF (congestive heart failure): (10) Paroxysmal atrial fibrillation: (11) Multiple myeloma: (12) Acute heart failure with preserved ejection fraction: (13) Pacemaker: (14) HLD (hyperlipidemia): (15) CAD (coronary artery disease): (16) Peripheral vascular disease of lower extremity: (17) Type 2 diabetes mellitus: History of Present Illness Attending Physician: Fracisco Hwang MD History of Present Illness Patient is a 76-year-old male with past medical history significant for HFrEF, CAD (CABG times 01/03/1994), DM type II, mitral regurg, CKD, paroxysmal A. fib, tachybradycardia syndrome (status post pacemaker), PVD, HLD and multiple myeloma. Patient presented to the emergency department earlier today with fatigue, lightheadedness, short of breath worsening over the past several weeks. He reports recent weight loss and decreased appetite as well. He reported recent fall striking his head on the toilet at home. CT head and cervical spine unremarkable. Patient was noted to be hypoxic and developed A. fib RVR. Patient was recently taken off oral amiodarone as there was concern for amiodarone toxicity. He had elevated troponin of 4000 and was started on IV heparin. He continued to clinically worsen and was requiring 15 L oxygen mask and was placed on BiPAP. Chest x-ray consistent with increased pulmonary vascular congestion and he was given IV Lasix. CTA chest negative for PE. Patient was seen by cardiology this evening and recommended restarting on IV amiodarone temporarily for rate control. He is now being admitted to the ICU. On arrival to the ICU patient is noted to be significantly febrile with a temperature of 39.0 C. He currently appears comfortable on BiPAP without labored breathing. Patient reports that shortness of breath has significantly improved. He is now complaining of rectal discomfort and claims that he feels constipated. He currently denies any headache, dizziness, syncope, sore throat, cough, congestion, chest pain, palpitations, abdominal pain, nausea vomiting or diarrhea. Patient states that he has had increased weakness to his lower extremities worsening over the past few years. He has a history of sacral wound which is now healed and diabetic ulcer to the left heel which appears to be healing well and does not look infected. He appears to be producing a large amount of urine in the Yadav and oxygen requirements are decreasing. Will manage in ICU tonight with goal to wean from BiPAP. Allergies Allergy/AdvReac Type Severity Reaction Status Date / Time tizanidine Allergy Unknown Unknown Verified 04/16/22 15:19 Home Medications Medication Instructions Recorded Confirmed Type acetaminophen 650 mg 650 mg PO Q8H PRN tab 09/28/19 04/22/22 History tablet,extended release (Tylenol Arthritis Pain) aspirin 81 mg tablet,delayed 81 mg PO DAILY 09/28/19 04/22/22 History release apixaban 5 mg tablet (Eliquis) 5 mg PO BID 06/25/20 04/22/22 History atorvastatin 40 mg tablet 40 mg PO DAILY 06/25/20 04/22/22 History insulin glargine 100 unit/mL (3 40 unit SUBCUT QPM 06/25/20 04/22/22 History mL) subcutaneous pen (Basaglar KwikPen U-100 Insulin) isosorbide mononitrate 30 mg 30 mg PO DAILY 06/25/20 04/22/22 History tablet,extended release 24 hr liraglutide 0.6 mg/0.1 mL (18 mg/3 1.2 mg SUBCUT DAILY 09/30/21 04/22/22 History mL) subcutaneous pen injector ([employer] 2-Jed) ondansetron 8 mg disintegrating 8 mg PO Q8H PRN 09/30/21 04/22/22 History tablet prochlorperazine maleate 10 mg 10 mg PO Q6H PRN 09/30/21 04/22/22 History tablet polyethylene glycol 3350 17 gram 17 g PO DAILY PRN #15 ea 10/05/21 04/22/22 Rx oral powder packet (Miralax) torsemide 20 mg tablet 10 mg PO QAM #30 tab 10/10/21 04/22/22 Rx dexamethasone 4 mg tablet 20 mg PO WK MDD 5 tablets weekly 11/01/21 04/22/22 History insulin aspart U-100 100 unit/mL 0 unit SUBCUT UD MDD 28 units per 11/01/21 04/22/22 History (3 mL) subcutaneous pen (Novolog day Flexpen U-100 Insulin aspart) nitroglycerin 0.4 mg sublingual 0.4 mg SUBLINGUAL .Q 5 MIN PRN MDD 11/01/21 04/22/22 History tablet 3 doses in 15 min omega-3 fatty acids 1,000 mg 1,000 mg PO BID 04/15/22 04/22/22 History capsule metoprolol succinate 50 mg 75 mg PO DAILY tab 04/16/22 04/22/22 History tablet,extended release 24 hr (Toprol XL) acyclovir 400 mg tablet 400 mg PO BID 04/22/22 04/22/22 History docusate sodium 100 mg capsule 100 mg PO BID 04/22/22 04/22/22 History (Colace) doxycycline hyclate 100 mg tablet 25 mg PO BID 04/22/22 04/22/22 History ferrous sulfate 325 mg (65 mg 325 mg PO DAILY 04/22/22 04/22/22 History iron) tablet gabapentin 300 mg capsule 300 mg PO DAILY 04/22/22 04/22/22 History mecobalamin (vitamin B12) 1,000 1,000 mcg PO DAILY 04/22/22 04/22/22 History mcg chewable tablet (B12 Active) morphine 15 mg immediate release 15 mg PO Q6H PRN 04/22/22 04/22/22 History tablet potassium chloride 10 mEq 10 meq PO DAILY 04/22/22 04/22/22 History capsule,extended release Patient History Medical History Atrial fibrillation continue eliquis and high dose metoprolol CAD (coronary artery disease) Hallux rigidus of left foot "S/p multiple surgeries" History of basal cell carcinoma History of melanoma in situ History of pilonidal cyst HLD (hyperlipidemia) Pacemaker Peripheral vascular disease of lower extremity Tachy-noman syndrome Pt admitted for elective ppm due to TBS; underwent procedure without any complications; monitored overnight and discharged home. Type 2 diabetes mellitus Surgical History History of bone marrow biopsy History of cataract surgery History of foot surgery S/P CABG x 4 S/P Mohs surgery for basal cell carcinoma Family History Mother Lymphoma Social History Smoking Status: Former smoker Tobacco Type: Cigarettes Cigarettes Per Day: 1-2 times a month; Smoking End Date: 1979; Number of Years Since Quit: 40; Second Hand Exposure: No; Hx Alcohol Use: No Hx Substance Use: No Preferred Language: Thai Communication Ability: Effective In Shop Service Technician Required: No Beliefs That Will Affect Care: None marital status: Current Living Situation: Spouse current occupational status: retired Other Information That Helps Us Care for You: No Feels Safe at Home: Yes Safety Concerns: Feels Safe At This Time Assistive Devices: Denture - Upper, Glasses and Walker Review of Systems Review of Systems: All systems reviewed & are unremarkable except as noted in HPI & below Physical Exam Eyes: PERRL, conjunctivae normal, anicteric sclerae ENMT: external ear and nose normal, oropharynx normal Neck: trachea midline, no thyromegaly Respiratory: normal respiratory effort, lungs clear to auscultation Cardiovascular: RRR, no murmur, no edema Heart Sounds: normal S1 and normal S2 Extremities: normal capillary refill; no edema Gastrointestinal (Abdomen): normal bowel sounds, soft, nontender, no hepatosplenomegaly Skin: no rashes, warm and dry Healing pressure ulcer left heel without drainage or eschar Neurologic: PERRL, EOMI, accommodation nl, no face palsy, no dysarthria Psychiatric: A+Ox3, euthymic affect Genitourinary: Indwelling Yadav catheter Results & Data Results & Data ([facility]) Vital Signs (Past 12 Hours) Vital Signs Temp Pulse Pulse Resp BP BP Pulse Ox 04/22/22 19:10 39.0 C H 95 H 13 100 04/22/22 19:03 39.2 C H 102 H 17 97/53 L 100 04/22/22 19:00 39.2 C H 101 H 20 98/38 L 100 04/22/22 18:50 39.3 C H 109 H 16 100 04/22/22 18:40 39.5 C H 94 H 14 100 04/22/22 18:30 39.6 C H 106 H 15 100 04/22/22 18:20 39.7 C H 89 19 98 04/22/22 18:10 39.8 C H 89 19 100 04/22/22 18:00 39.8 C H 91 H 16 114/46 L 100 04/22/22 17:21 108 H 103 H 24 96 04/22/22 17:17 108 H 21 137/117 H 100 04/22/22 17:00 115 H 24 121/84 87 L 04/22/22 16:00 108 H 25 H 04/22/22 15:14 36.8 C 85 16 129/67 90 04/22/22 14:42 84 29 H 109/75 80 L 04/22/22 14:28 82 20 108/46 L 91 04/22/22 14:25 100 04/22/22 13:45 73 15 122/59 L 91 04/22/22 13:31 78 24 118/50 L 91 04/22/22 13:15 78 17 116/63 91 04/22/22 13:00 75 17 106/55 L 100 04/22/22 12:45 69 14 113/58 L 100 04/22/22 12:31 69 17 98/40 L 100 04/22/22 12:15 70 18 100/55 L 100 04/22/22 12:00 72 15 98/54 L 100 04/22/22 11:45 72 15 100/55 L 98 04/22/22 11:32 78 23 106/58 L 97 04/22/22 11:00 75 17 97/55 L 100 04/22/22 10:45 73 15 97/57 L 100 04/22/22 10:30 75 15 102/56 L 99 04/22/22 10:28 37.0 C 04/22/22 10:15 75 15 95/55 L 100 04/22/22 10:02 77 17 102/55 L 99 04/22/22 10:00 78 16 99/55 L 99 04/22/22 09:30 80 17 95/53 L 99 04/22/22 09:19 78 16 93/48 L 99 04/22/22 09:12 80 23 83/48 L 99 04/22/22 09:00 84 13 82/51 L 99 04/22/22 08:30 94 H 21 99/56 L 96 04/22/22 08:08 81 L 04/22/22 07:59 39.3 C H 108 H 20 109/54 L 94 Coding Level of Care Code Critical Care 1st 30-74 mins Diagnoses Sepsis A41.9 NSTEMI (non-ST elevated myocardial infarction) I21.4 Acute on chronic HFrEF (heart failure with reduced ejection fraction) I50.23 Hypoxia R09.02 Respiratory failure with hypoxia J96.91 Weakness R53.1 Fever R50.9 Hypotension I95.9 Hypotension type: unspecified hypotension type CHF (congestive heart failure) I50.9 Heart failure chronicity: unspecified Heart failure type: unspecified Paroxysmal atrial fibrillation I48.0 Multiple myeloma C90.00 Acute heart failure with preserved ejection fraction I50.31 Pacemaker Z95.0 HLD (hyperlipidemia) E78.5 CAD (coronary artery disease) I25.10 Peripheral vascular disease of lower extremity I73.9 Type 2 diabetes mellitus E11.9 (1) CHF (congestive heart failure) Heart failure chronicity: unspecified Heart failure type: unspecified Qualified Code(s): I50.9 - Heart failure, unspecified (2) Hypotension Hypotension type: unspecified hypotension type Qualified Code(s): I95.9 - Hypotension, unspecified
[2022-04-22] MEDS ORDERED: SOD PHOSPHATE/SOD BIPHOSPHATE ENEMA 132 ML BTL PR STA (19:34)
[2022-04-22] MEDS ORDERED: ACETAMINOPHEN 1,000 MG/100 ML VIAL IV PRN (20:10)
--- NOTE | 2022-04-22 20:42 | Pharmacy Report ---
Pharmacy PK ABX Note - Date of Service April 22, 2022 - Assessment and Plan Assessment 76 year old M receiving vanc/zosyn/doxy for empiric sepsis treatment. Pertinent microbiologic data includes: MRSA nasal negative,previous culture data w/ MSSA (left foot/buttock). History of multiple myeloma, no leukocytosis, Tmax 39.8. Blood cultures pending Day #1 of antimicrobial therapy. Plan Vancomycin * Loading dose: 1750 mg x 1 * Maintenance dose: 1000 mg IV every 18 hours * Regimen is predicted to achieve target AUC/KANDI of 400-600 mg/L.hr * Random level to be ordered if vancomycin continued. Pharmacy will continue to follow and will adjust dose/frequency as necessary. Thank you. Pharmacy has transitioned to AUC monitoring for vancomycin. AUC/KANDI is the preferred PK/PD target and is associated with decreased risk of nephrotoxicity compared to traditional trough targets.
[2022-04-22] MEDS ORDERED: CEFEPIME 2,000 MG in SYRINGE 0 ML IV SCH (21:00)
[2022-04-22] MEDS ORDERED: APIXABAN 5 MG TABLET PO SCH (21:00)
[2022-04-22 21:24] LABS: Calcium 7.9 mg/dl (8.5-10.1); Creatinine Clr Calc Pharmacy 60.9 ml/min; Est GFR (African American) 74.9 ml/min; Est GFR (Non-African American) 64.6 ml/min; Potassium 3.4 mmol/L (3.5-5.1)
[2022-04-22] MEDS: DOCUSATE SODIUM 100 MG CAP PO SCH (21:31)
[2022-04-22] MEDS: ACYCLOVIR 400 MG TAB PO SCH (21:31)
[2022-04-22] MEDS: PIPERACILLIN/TAZOBACTAM 4.5 GM in DEXTROSE 5% 100 ML IV SCH (21:31)
[2022-04-22] MEDS: LANTUS PER UNIT CHARGE SQ SCH (21:45)
--- NOTE | 2022-04-22 22:53 | Electrocardiogram Report ---
Test Reason : Blood Pressure : / mmHG Vent. Rate : 098 BPM Atrial Rate : 098 BPM P-R Int : 194 ms QRS Dur : 112 ms QT Int : 386 ms P-R-T Axes : 036 063 078 degrees QTc Int : 492 ms Normal sinus rhythm Anterior infarct , age undetermined Prolonged QT Abnormal ECG When compared with ECG of 15-APR-2022 17:26, Sinus rhythm has replaced Electronic atrial pacemaker Vent. rate has increased BY 37 BPM Anterior infarct is now Present Confirmed by Juan M Akhtar ([id number]) on 04/22/2022 10:53:10 PM Referred By: Confirmed By:Juan M Akhtar
[2022-04-22 23:37] LABS: Adenovirus PCR Not Detected (NotDetected); Bordetella parapertussis PCR Not Detected (NotDetected); Bordetella pertussis PCR Not Detected (NotDetected); Chlamydia pneumoniae PCR Not Detected (NotDetected); Coronavirus 229E PCR Not Detected (NotDetected); Coronavirus CoV-2 (COVID19)PCR Not Detected (NotDetected); Coronavirus HKU1 PCR Not Detected (NotDetected); Coronavirus NL63 PCR Not Detected (NotDetected); Coronavirus OC43PCR Not Detected (NotDetected); Human Metapneumovirus PCR Not Detected (NotDetected); Influenza A PCR Not Detected (NotDetected); Influenza B PCR Not Detected (NotDetected); Mycoplasma pneumoniae PCR Not Detected (NotDetected); Parainfluenza Virus 1 PCR Not Detected (NotDetected); Parainfluenza Virus 2 PCR Not Detected (NotDetected); Parainfluenza Virus 3 PCR Not Detected (NotDetected); Parainfluenza Virus 4 PCR Not Detected (NotDetected); Respiratory Syncytial VirusPCR Not Detected (NotDetected); Rhinovirus/Enterovirus PCR Not Detected (NotDetected)
[2022-04-22] MEDS ORDERED: POTASSIUM CHLORIDE CRTAB 20 MEQ TABCR PO STA (23:50)
[2022-04-23 00:15] LABS: Partial Thromboplastin Time 53.9 Seconds (21.0-31.0)
[2022-04-23] MEDS ORDERED: AMIODARONE / D5W 360 MG/200 ML BAG IV SCH ×2 (00:45→20:41)
[2022-04-23] MEDS ORDERED: FUROSEMIDE INJ 20 MG/2 ML VIAL IV ONE (01:48)
[2022-04-23] MEDS ORDERED: ALBUMIN 25% 100 mL 25 GM/100 ML VIAL IV ONE (02:07)
[2022-04-23] MEDS: VANCOMYCIN HCL 1,000 MG in SODIUM CHLORIDE 0.9% 250 ML IV SCH ×2 (05:43→23:45)
[2022-04-23] MEDS: PIPERACILLIN/TAZOBACTAM 4.5 GM in DEXTROSE 5% 100 ML IV SCH ×3 (05:43→22:15)
[2022-04-23 06:12] LABS: Eosinophils # (auto) 0.05 K/uL (0-0.50); Hematocrit (blood only) 22.2 % (40.1-51.0); Hemoglobin 7.2 g/dl (14.0-18.0); Immature Granulocytes # (auto) 0.05 K/uL (0.00-0.02); Lymphocytes # (auto) 0.27 K/uL (1.2-3.4); Lymphocytes % (auto) 5.6 %; Mean Corpuscular Hemoglobin 31.3 pg (25.0-34.0); Mean Corpuscular Hgb Conc 32.4 g/dL (32.0-36.0); Mean Corpuscular Volume 96.5 fL (80.0-100.0); Mean Platelet Volume 9.9 fL (9.4-12.4); Monocytes # (auto) 0.21 K/uL (0.24-0.82); Monocytes % (auto) 4.4 %; Neutrophils # (auto) 4.23 K/uL (1.4-6.5); Platelet Count 130 K/uL (130-400); RDW Coefficient of Variation 14.6 % (11.5-14.5); RDW Standard Deviation 51.8 fL (36.4-46.3); White Blood Count 4.81 K/ul (4.8-10.8)
[2022-04-23 06:23] LABS: Albumin Globulin Ratio 1.4 (0.9-2); Albumin Level 3.3 gm/dl (3.4-5.0); BUN Creatinine Ratio 18.1 (10-20); Bilirubin,Total 0.8 mg/dl (0.2-1.0); Calcium 7.8 mg/dl (8.5-10.1); Creatinine Clr Calc Pharmacy 64.1 ml/min; Est GFR (African American) 80.1 ml/min; Est GFR (Non-African American) 69.1 ml/min; Globulin 2.3 gm/dl (2.5-4.0); Magnesium 1.8 mg/dl (1.7-2.4); Potassium 2.9 mmol/L (3.5-5.1); Total Protein 5.6 gm/dl (6.0-8.3)
[2022-04-23 06:40] LABS: Partial Thromboplastin Ratio 4.5
[2022-04-23 06:53] LABS: RBC Morphology Unremarkable
[2022-04-23 06:55] LABS: Partial Thromboplastin Time 124.5 Seconds (21.0-31.0)
[2022-04-23] MEDS ORDERED: POTASSIUM CHLORIDE 20 MEQ/15 ML UDC PO STA (07:03)
[2022-04-23] MEDS: INSULIN ASPART PER UNIT SC SCH ×4 (07:12→20:39)
[2022-04-23 07:35] LABS: Estimated Average Glucose 146 mg/dl; Hemoglobin A1C 6.7 % (4.5-5.6)
[2022-04-23] MEDS: POTASSIUM CHLORIDE / WTR 10 MEQ/100 ML PLCT IV SCH ×4 (07:53→11:24)
[2022-04-23] MEDS: MAGNESIUM SULFATE / D5W 1 GM/100 ML BAG IV SCH ×2 (07:53→10:12)
[2022-04-23] MEDS: POLYETHYLENE (MIRALAX) 17 GM PACK PO PRN (08:12)
[2022-04-23] MEDS: ACETAMINOPHEN 325 MG TAB PO PRN ×3 (08:13→23:49)
[2022-04-23] MEDS: DOCUSATE SODIUM 100 MG CAP PO SCH ×2 (08:13→20:22)
[2022-04-23] MEDS: ATORVASTATIN 40 MG TAB PO SCH (08:13)
[2022-04-23] MEDS: DOXYCYCLINE HYCLATE 100 MG CAP PO SCH ×2 (08:13→20:22)
[2022-04-23] MEDS: ACYCLOVIR 400 MG TAB PO SCH ×2 (08:13→20:22)
--- NOTE | 2022-04-23 08:13 | Critical Care Progress Note ---
Date of Service April 23, 2022 Assessment & Plan (1) Respiratory failure with hypoxia: (2) Acute on chronic HFrEF (heart failure with reduced ejection fraction): (3) Fever: (4) Multiple myeloma: Plan: Impression: 76-year-old male with a history of coronary disease and diastolic heart failure as well as stage II multiple myeloma currently on Velcade, dexamethasone, and Revlimid followed at [facility] oncology admitted 04/22/2022 with weakness falls and fever with hypoxemic respiratory failure, non-ST elevation myocardial infarction, atrial fibrillation with rapid ventricular response. 24-hour events: Patient was initially admitted to PCU. His oxygenation worsened and required application of high flow oxygen and then transition to BiPAP. Cardiology consultation was completed. He was placed on amiodarone. This resulted in rate control. Due to his tenuous respiratory status, he was transferred to the ICU. He was intermittently on and off BiPAP overnight. He has been hemodynamically stable. He is DO NOT RESUSCITATE DO NOT INTUBATE status. Recommendations: 1. Neurologic: No current issues. Continue to follow clinically. He been on narcotics in the outpatient setting. Continue pain management. 2. Cardiovascular: Non-ST elevation myocardial infarction, congestive heart failure. Recheck BNP. Continue Lasix. Amiodarone stopped overnight. Anticoagulated on heparin currently. Defer additional rate control to cardiology. Patient has some wall motion abnormalities on his echocardiogram and unclear if he would benefit from additional intervention such as cardiac catheterization but will defer to cardiology. 3. Pulmonary: Hypoxemic respiratory failure with diffuse pulmonary infiltrates. Differential is broad to include hydrostatic pulmonary edema, atypical infection including PJP and Legionella given the patient's immunocompromise status, pulmonary hemorrhage, or pulmonary infiltrates related to chemotherapeutics. Pulmonary infiltrates have been rarely described with both Velcade and Revlimid. Repeat chest x-ray this morning. Depending on the patient's clinical status and his chest x-ray, may consider bronchoscopy with BAL to obtain lower respiratory specimens. 4. ID: Patient is persistently febrile despite broad-spectrum antibiotics. Cultures are negative to date. Repeat blood cultures, urine culture, and procalcitonin. Check urinary Legionella antigen. Fungal blood cultures will also be requested as well as galactomannan. Check LDH. If the patient can tolerate, may consider bronchoscopy with BAL. ID consultation will be requested given his persistent fevers and immunocompromise state. Day #2 Zosyn, doxycycline, vancomycin. Continue for now. Biofire negative. Cultures from the patient's foot have grown staph aureus in the past. 5. Renal: no current issues. Continue with diuresis. ICU electrolyte replacement protocol. 6. GI: No current issues. Continue current diet. PPI 7. Heme-onc: Anemia: Decrease in hemoglobin overnight. No evidence of active ongoing bleeding. Check reticulocyte count. Pulmonary hemorrhage is a possibility. Patient does have multiple myeloma. Holding Revlimid and Velcade. 8. Endocrine: Patient has been on dexamethasone in the outpatient setting. He is at risk for relative adrenal insufficiency. If his hemodynamics are compromised, would have low threshold for proceeding with stress dose steroids. Continue glycemic control per protocol Patient is critically ill at this point time. A total of 50 minutes of critical care time was spent evaluation management stabilization this patient including discussion of multidisciplinary rounds and with multiple consultants. Case was discussed with patient at bedside as well as with the ICU nurse. Admission and Anticipated Discharge Date Admission Date: April 22, 2022 Subjective Patient seen and examined. EMR reviewed. Discussed with critical care REJI from overnight. Patient is currently back on BiPAP this morning. He thinks his breathing is better. He is not coughing or expectorating phlegm. No chest pain or palpitations. He denies nausea vomiting or other abdominal localizing symptoms. He is not complaining of any skin or soft tissue pain. He is persistently febrile. Review of Systems Review of Systems: All systems reviewed & are unremarkable except as noted in Subjective Physical Exam Eyes: PERRL, conjunctivae normal, anicteric sclerae Neck: trachea midline, no thyromegaly Respiratory: no labored breathing and not tachypneic Auscultation: + crackles; no wheezes Cardiovascular: RRR, no murmur, no edema Heart Sounds: normal S1 and normal S2 Extremities: normal capillary refill; no edema Gastrointestinal (Abdomen): normal bowel sounds, soft, nontender, no hepatosplenomegaly Skin: no rashes, warm and dry Healing pressure ulcer left heel without drainage or eschar Neurologic: PERRL, EOMI, accommodation nl, no face palsy, no dysarthria Psychiatric: A+Ox3, euthymic affect Genitourinary: Indwelling Yadav catheter Results & Data Results & Data ([facility]) Vital Signs (Past 12 Hours) Vital Signs Temp Pulse Resp BP Pulse Ox 04/23/22 07:10 87 17 97 04/23/22 06:19 94 04/23/22 06:16 18 92 04/23/22 06:05 84 L 04/23/22 04:45 37.6 C H 68 17 96/48 L 94 04/23/22 04:30 37.6 C H 68 17 88/46 L 94 04/23/22 04:15 37.7 C H 69 20 95/43 L 95 04/23/22 04:04 37.7 C H 69 20 95/49 L 93 04/23/22 04:00 37.7 C H 68 17 84/45 L 91 04/23/22 03:45 37.8 C H 66 17 86/41 L 92 04/23/22 03:33 37.9 C H 66 17 83/43 L 95 04/23/22 03:31 37.9 C H 67 17 76/41 L 95 04/23/22 03:30 37.9 C H 67 16 76/44 L 95 04/23/22 03:16 38.0 C H 67 17 81/44 L 95 04/23/22 03:10 38.1 C H 68 16 94 04/23/22 03:00 38.1 C H 67 19 89/45 L 96 04/23/22 02:50 38.2 C H 68 17 94 04/23/22 02:46 38.2 C H 68 16 85/42 L 95 04/23/22 02:45 38.2 C H 69 15 79/49 L 96 04/23/22 02:40 68 17 95 04/23/22 02:30 38.3 C H 71 17 84/46 L 92 04/23/22 02:20 38.4 C H 71 20 93 04/23/22 02:10 38.5 C H 72 17 93 04/23/22 02:04 38.5 C H 73 18 82/45 L 95 04/23/22 02:03 38.5 C H 73 16 94/38 L 96 04/23/22 02:02 73 19 71/28 L 98 04/23/22 02:00 38.5 C H 72 17 69/30 L 99 04/23/22 01:00 38.6 C H 75 18 104/47 L 93 04/23/22 00:00 38.2 C H 71 18 118/48 L 97 04/22/22 23:46 68 04/22/22 23:00 38.0 C H 68 16 107/50 L 95 04/22/22 22:32 68 17 100 04/22/22 22:00 37.8 C H 70 17 110/54 L 100 04/22/22 21:00 38.0 C H 73 16 100/46 L 96 04/22/22 20:41 38.2 C H 82 26 H 110/50 L 91 Critical Care Results & Data Vital Signs (Past 12 Hours) Vital Signs Temp Pulse Resp BP Pulse Ox 04/23/22 07:10 87 17 97 04/23/22 06:19 94 04/23/22 06:16 18 92 04/23/22 06:05 84 L 04/23/22 04:45 37.6 C H 68 17 96/48 L 94 04/23/22 04:30 37.6 C H 68 17 88/46 L 94 04/23/22 04:15 37.7 C H 69 20 95/43 L 95 04/23/22 04:04 37.7 C H 69 20 95/49 L 93 04/23/22 04:00 37.7 C H 68 17 84/45 L 91 04/23/22 03:45 37.8 C H 66 17 86/41 L 92 04/23/22 03:33 37.9 C H 66 17 83/43 L 95 04/23/22 03:31 37.9 C H 67 17 76/41 L 95 04/23/22 03:30 37.9 C H 67 16 76/44 L 95 04/23/22 03:16 38.0 C H 67 17 81/44 L 95 04/23/22 03:10 38.1 C H 68 16 94 04/23/22 03:00 38.1 C H 67 19 89/45 L 96 04/23/22 02:50 38.2 C H 68 17 94 04/23/22 02:46 38.2 C H 68 16 85/42 L 95 04/23/22 02:45 38.2 C H 69 15 79/49 L 96 04/23/22 02:40 68 17 95 04/23/22 02:30 38.3 C H 71 17 84/46 L 92 04/23/22 02:20 38.4 C H 71 20 93 04/23/22 02:10 38.5 C H 72 17 93 04/23/22 02:04 38.5 C H 73 18 82/45 L 95 04/23/22 02:03 38.5 C H 73 16 94/38 L 96 04/23/22 02:02 73 19 71/28 L 98 04/23/22 02:00 38.5 C H 72 17 69/30 L 99 04/23/22 01:00 38.6 C H 75 18 104/47 L 93 04/23/22 00:00 38.2 C H 71 18 118/48 L 97 04/22/22 23:46 68 04/22/22 23:00 38.0 C H 68 16 107/50 L 95 04/22/22 22:32 68 17 100 04/22/22 22:00 37.8 C H 70 17 110/54 L 100 04/22/22 21:00 38.0 C H 73 16 100/46 L 96 04/22/22 20:41 38.2 C H 82 26 H 110/50 L 91 Lab & Micro Results (Past 24 Hours) RBC 2.30 M/uL (4.63-6.08) L 04/23/22 WBC 4.81 K/ul (4.8-10.8) 04/23/22 Hgb 7.2 g/dl (14.0-18.0) L 04/23/22 Hct 22.2 % (40.1-51.0) L 04/23/22 MCV 96.5 fL (80.0-100.0) 04/23/22 MCH 31.3 pg (25.0-34.0) 04/23/22 MCHC 32.4 g/dL (32.0-36.0) 04/23/22 RDW Standard Deviation 51.8 fL (36.4-46.3) H 04/23/22 RDW Coefficient of Variation 14.6 % (11.5-14.5) H 04/23/22 Plt Count 130 K/uL (130-400) 04/23/22 MPV 9.9 fL (9.4-12.4) 04/23/22 Neutrophils (%) (Auto) 88.0 % 04/23/22 Lymphocytes (%) (Auto) 5.6 % 04/23/22 Monocytes # (Auto) 0.21 K/uL (0.24-0.82) L 04/23/22 Eosinophils # (Auto) 0.05 K/uL (0-0.50) 04/23/22 Immature Granulocyte % (Auto) 1.0 % 04/23/22 Neutrophils # (Auto) 4.23 K/uL (1.4-6.5) 04/23/22 Lymphocytes # (Auto) 0.27 K/uL (1.2-3.4) L 04/23/22 Monocytes # (Auto) 0.21 K/uL (0.24-0.82) L 04/23/22 Eosinophils # (Auto) 0.05 K/uL (0-0.50) 04/23/22 Basophils # (Auto) 0.00 K/uL (0-0.2) 04/23/22 Immature Granulocyte # (Auto) 0.05 K/uL (0.00-0.02) H 04/23/22 Red Blood Cell Morphology Unremarkable 04/23/22 Na 137 mmol/L (136-145) 04/23/22 K 2.9 mmol/L (3.5-5.1) L 04/23/22 Cl 103 mmol/L (98-107) 04/23/22 CO2 25 mmol/L (21-32) 04/23/22 Anion Gap 9 (3-11) 04/23/22 BUN 19 mg/dl (6-23) 04/23/22 Creatinine 1.05 mg/dl (0.6-1.4) 04/23/22 Estimated GFR ( Amer) 80.1 ml/min 04/23/22 Estimated GFR (Non-Af Amer) 69.1 ml/min 04/23/22 BUN/Creatinine Ratio 18.1 (10-20) 04/23/22 Glu 57 mg/dl (70-99(Fasting)) L 04/23/22 Ca 7.8 mg/dl (8.5-10.1) L 04/23/22 Total Bilirubin 0.8 mg/dl (0.2-1.0) 04/23/22 AST 33 U/L (13-39) 04/23/22 ALT 15 U/L (7-52) 04/23/22 Alkaline Phosphatase 40 U/L (34-104) 04/23/22 TP 5.6 gm/dl (6.0-8.3) L 04/23/22 Albumin 3.3 gm/dl (3.4-5.0) L 04/23/22 Globulin 2.3 gm/dl (2.5-4.0) L 04/23/22 Albumin/Globulin Ratio 1.4 (0.9-2) 04/23/22 Mg 1.8 mg/dl (1.7-2.4) 04/23/22 05:39 04/23/22 Calcium Level 7.8 mg/dl (8.5-10.1) L 04/23/22 05:39 04/23/22 Diagnostic Findings (Past 24 Hours) Chest X-Ray 04/22/22 07:59 SINGLE VIEW CHEST CLINICAL HISTORY: Sepsis. FINDINGS: An AP, portable, upright chest radiograph is compared to study dated 04/15/2022. The examination is degraded by portable technique and patient rotation. A 2-lead cardiac pacemaker is unchanged in position. The patient is status post midline sternotomy. The heart is enlarged noting atherosclerotic calcification of the thoracic aorta. Patchy bilateral airspace opacities are seen throughout both lungs, most confluent in the right mid to upper lung. No large pleural effusion or pneumothorax is seen. The skeletal structures are osteopenic. There are healed right-sided rib fractures. IMPRESSION: 1. Cardiomegaly and cardiac pacemaker. 2. There are bilateral airspace opacities. This could represent multifocal pneumonia and/or pulmonary edema. Clinical correlation will be required and radiographic follow-up to resolution is recommended ACT 112: Negative or not required by law. Electronically signed by: Dante Lopez M.D. 04/22/2022 8:[address] 04/22/22 08:41 CT SCAN OF THE CERVICAL SPINE CLINICAL HISTORY: Trauma. Fall. History of multiple myeloma. COMPARISON STUDY: No priors. TECHNIQUE: CT scan of the cervical spine is performed from the skull base to the upper thoracic spine. Images are reviewed in the axial, sagittal, and coronal planes. IV contrast was not administered for this examination. A dose lowering technique was utilized adhering to the principles of ALARA. CT DOSE: 999.97 mGy.cm FINDINGS: Skeletal structures: The skeletal structures are osteopenic. There is no evidence of fracture or subluxation involving the cervical spine. Vertebral body height and alignment are maintained. The odontoid process and lateral masses are intact. The atlantoaxial articulation is preserved noting mild productive degenerative change. The spinous processes appear intact. Scattered osteolytic lesions are seen throughout the cervical spine and consistent with the reported history of multiple myeloma. Some of these show sclerosis which likely represents treatment related change. There is mild multilevel facet arthropathy. Intervertebral discs: There is mild to moderate disc space narrowing seen throughout the cervical spine. Central canal: Small posterior disc osteophyte complexes at C5-C6 at C6-C7 may contribute to mild acquired compromise the central canal. Soft tissues: The prevertebral and paraspinous soft tissues are within normal limits. There is atherosclerotic calcification of the carotid bulbs. Pacemaker leads are noted at the left thoracic inlet there Calvarium: The visualized calvarium at the skull base appears intact. Brain parenchyma: Partially visualized brain parenchyma at the skull base is within normal limits. Sinuses and mastoids: The visualized paranasal sinuses are clear. The mastoid air cells are well pneumatized. Lung apices: Emphysematous change is noted at the apices. IMPRESSION: 1. There is no evidence of fracture or subluxation involving the cervical spine. 2. Osteolytic lesions scattered throughout the cervical spine likely correspond to the reported history of multiple myeloma. 3. Emphysema. ACT 112: Negative or not required by law. Electronically signed by: Dante Lopez M.D. 04/22/2022 9:[address] 04/22/22 08:41 CT head/brain wo con CLINICAL HISTORY: 76 years-old Male with trauma. Acute head trauma status post fall TECHNIQUE: Multiple axial CT images of the head were obtained without contrast. A dose lowering technique was utilized adhering to the principles of ALARA. COMPARISON: CT cervical spine of same day FINDINGS: No acute intracranial hemorrhage, midline shift, intracranial mass, hydrocephalus, territorial ischemia or abnormal extra-axial collection. Involutional changes of the brain parenchyma. White matter hypodensities favor chronic microvascular ischemic disease. Cerebral vascular calcifications. The calvarium is intact. Lucent focus of the occipital calvarium on image 19 is nonspecific and may represent an arachnoid granulation. Prior bilateral lens repair. The paranasal sinuses, mastoid air cells, and middle ear cavities are clear. IMPRESSION: No acute intracranial abnormality or calvarial fracture. ACT 112: Negative or not required by law. The above report was generated using voice recognition software. It may contain grammatical, syntax or spelling errors. Electronically signed by: Uziel Nieto M.D. 04/22/2022 9:54 AM Chest CTA 04/22/22 10:36 CT angio chest PE protocol CLINICAL HISTORY: Shortness of breath COMPARISON STUDY: Portable chest from 04/22/[address]22 CT DOSE: 499.74 mGycm TECHNIQUE: CT Angio of the chest was performed.followed by image post processing with coronal, and sagittal MIP reformats. Contrast Volume: ml FINDINGS: Vasculature: There is homogeneous perfusion of the pulmonary vasculature bilaterally. No intraluminal filling defects or evidence for pulmonary embolus is seen. Airway: The airway is clear. No endobronchial lesion is identified. Lungs: Moderate to marked bullous emphysematous changes are present involving the upper lobes bilaterally, right greater than left. The patchy airspace opacities described on the portable chest radiograph represents the preserved lung parenchyma with minimal diffuse groundglass opacity present. No confluent alveolar opacities or air bronchograms are seen. Pleura: There is no evidence for pleural effusion. There is no evidence for pneumothorax. Mediastinum: There is no evidence for pathologic adenopathy. The heart is enlarged with permanent cardiac pacer in place. Coronary artery calcifications present. The patient is status post previous sternotomy. The thoracic aorta is within normal limits. Atherosclerotic calcification is present. There is no evidence for pericardial effusion. Osseous structures: There is no acute osseous pathology. Degenerative changes are present within the spine. Impression: 1. No CTA evidence for pulmonary embolus. 2. Marked bullous emphysematous changes involving the upper lobes bilaterally, right greater than left. 3. The bilateral airspace opacities actually represent preserved lung with groundglass opacity present. This most likely represents mild alveolar edema. 4. No confluent alveolar opacities were bronchograms are seen. 5. Cardiomegaly with extensive coronary artery calcification and atherosclerotic calcification of the aorta. ACT 112: Negative or not required by law. Electronically signed by: Juan Snyder M.D. 04/22/2022 12:11 PM Chest X-Ray 04/22/22 16:45 XR chest 1V portable at 5:01 PM CLINICAL HISTORY: worsening hypoxia. COMPARISON STUDY: 04/22/2022 at 8:24 AM TECHNIQUE: 1 view of the chest FINDINGS: Single frontal view of the chest demonstrates the heart size to again be mildly enlarged status post previous cardiothoracic surgery and pacer placement. Compared to the earlier study, there is evidence for central vascular congestion. The previously identified patchy airspace opacities again represent preserved lung parenchyma as noted on the CT examination. This is unchanged. There is no evidence for pleural effusion. There is no acute osseous pathology. IMPRESSION: 1. Compared to the earlier examination, there is evidence for central vascular congestion. The appearance of the lungs is otherwise unchanged from the earlier chest radiograph and interval CT examination. ACT 112: Negative or not required by law. Electronically signed by: Juan Snyder M.D. 04/22/2022 5:36 PM I & O Totals 24 Hours 04/22/22 04/23/22 04/24/22 06:59 06:59 06:59 Intake Total 4640.15 / 4640.15 463.05 / 463.05 Output Total 3852 / 3852 Balance 788.15 / 788.15 463.05 / 463.05 Cumulative 04/22/22 07:37 thru 04/23/22 07:09 Intake Total 5103.20 Output Total 3852 Balance 1251.20 RT Ventilator Mngmt (Last Documented) Ventilator Ordered Settings Respiratory Rate 17 04/23/22 07:10 Fraction of Inspired Oxygen 50 04/23/22 07:10 Ventilator - PT Measurements Respiratory Rate 17 Coding Level of Care Code Critical Care 1st 30-74 mins Diagnoses Respiratory failure with hypoxia J96.91 Acute on chronic HFrEF (heart failure with reduced ejection fraction) I50.23 Fever R50.9 Multiple myeloma C90.00
[2022-04-23] MEDS: FERROUS SULFATE 325 MG TAB PO SCH (08:14)
[2022-04-23] MEDS: CYANOCOBALAMIN (B-12) 500 MCG TABLET PO SCH (08:14)
[2022-04-23] MEDS: ASPIRIN 81 MG ECTAB PO SCH (08:14)
[2022-04-23] MEDS: GABAPENTIN 300 MG CAP PO SCH (08:14)
[2022-04-23] MEDS: ISOSORBIDE MONO EXTENDED REL 30 MG TABCR PO SCH (08:14)
[2022-04-23] MEDS: METOPROLOL SUCC 25MG EXT REL TAB PO SCH (08:15)
[2022-04-23] MEDS ORDERED: STAT IV STA (08:40)
[2022-04-23] MEDS ORDERED: CALCIUM GLUCONATE 10% 3,000 MG in DEXTROSE 5% 100 ML IV ONE (08:40)
--- NOTE | 2022-04-23 09:23 | XRay Report ---
XR chest 1V portable HISTORY: Respiratory failure. COMPARISON: Chest 04/22/2022. FINDINGS: There are low lung volumes. Left-sided single chamber pacemaker and poststernotomy changes are again noted. Hazy bilateral airspace opacities and interstitial thickening persists. No pleural f usions. No pneumothorax. The heart remains mildly enlarged. There is a healing/healed right posterior rib fracture. IMPRESSION: No significant change in the bilateral airspace opacities. This could be due to pulmonary edema or an atypical pneumonia. ACT 112: Negative or not required by law. Electronically signed by: Sloan Dang M.D. 04/23/2022 9:22 AM
[2022-04-23 09:49] LABS: Reticulocyte % 1.7 % (0.5-2.0); Reticulocytes # 0.04 10^6/uL (0.02-0.10)
[2022-04-23] MEDS: FUROSEMIDE 40 MG/4 ML VIAL IV SCH ×2 (10:12→20:22)
[2022-04-23 11:31] LABS: BUN Creatinine Ratio 14.7 (10-20); Calcium 8.2 mg/dl (8.5-10.1); Creatinine Clr Calc Pharmacy 58.1 ml/min; Est GFR (Non-African American) 61.3 ml/min; Potassium 3.8 mmol/L (3.5-5.1)
--- NOTE | 2022-04-23 12:19 | Cardiology Progress Note ---
Date of Service April 23, 2022 Assessment & Plan (1) Paroxysmal atrial fibrillation with RVR: (2) Acute on chronic HFrEF (heart failure with reduced ejection fraction): (3) Respiratory failure with hypoxia: (4) NSTEMI (non-ST elevated myocardial infarction): (5) Anemia: (6) Multiple myeloma: Plan: Patient converted to sinus rhythm. Intravenous amiodarone discontinued. Although the chart reports amiodarone treatment for 20 years, he was prescribed medication in September 2021. Discontinued in late March per direction of pulmonary medicine at [facility]. Eliquis placed on hold. Continue intravenous heparin. Recommend restarting metoprolol tartrate 12.5 mg 3 times daily (outpatient dose, 75 mg daily). Add digoxin 250 mcg daily. X-ray reviewed demonstrating bilateral interstitial opacities. No significant JVD on examination, IVC collapses per echocardiogram suggesting normal right atrial filling pressure. He does not examine to be acutely volume overloaded. Recommend maintaining even to negative fluid balance in an attempt to optimize respiratory status. Follow daily weight, GFR, and electrolytes. Further evaluation of atypical pneumonia as per pulmonary medicine. Patient may proceed with bronchoscopy from a cardiovascular perspective. Await infectious disease input regarding persistent fevers. Troponin elevation on admission likely secondary to type II event, demand ischemia in the setting of hypoxia and acute respiratory insufficiency rather than plaque rupture. There are no new regional wall motion abnormalities on echocardiogram when compared to studies dating back to 2014. Admission and Anticipated Discharge Date Admission Date: April 22, 2022 Subjective Patient seen examined the bedside. Converted to sinus rhythm yesterday. Comfortable on BiPAP. Awake and alert. Remains persistently febrile. Blood pressure has improved. Intravenous amiodarone discontinued. He did not receive a.m. dose of metoprolol due to hypotension. Patient voices concern regarding lower extremity atrophy. Lying supine without dyspnea. Requesting removal of BiPAP if possible. Fluid balance minimally negative. Renal function remained stable. Chest x-ray demonstrates interstitial opacities consistent with atypical pneumonia. Review of Systems Review of Systems: All systems reviewed & are unremarkable except as noted in Subjective Physical Exam Constitutional: well nourished and + ill appearing; no acute distress Respiratory: no respiratory distress, no labored breathing and no retractions Auscultation: + crackles (Bilateral bases); no rhonchi and no wheezes Cardiovascular: Rate/Rhythm: regular rate and regular rhythm Heart Sounds: normal S1 and normal S2; no murmur Vessels: radial pulses present; no JVD and no carotid bruit Extremities: no edema Gastrointestinal (Abdomen): Inspection/Auscultation: abdomen normal to inspection and normal bowel sounds; abdomen not distended Percuss ion/Palpation: abdomen soft; abdomen nontender, no guarding and abdomen not rigid Neurologic: CN's II-XI intact bilaterally and moves all extremities; no focal motor deficits Psychiatric: A+Ox3, euthymic affect Results & Data ([facility]) Vital Signs (Past 12 Hours) Vital Signs Temp Pulse Resp BP Pulse Ox 04/23/22 11:00 39.2 C H 78 19 92 04/23/22 10:01 39.3 C H 83 19 107/43 L 95 04/23/22 09:00 39.5 C H 88 24 101/58 L 90 04/23/22 08:00 39.5 C H 93 H 23 104/47 L 90 04/23/22 07:30 39.1 C H 88 24 109/53 L 92 04/23/22 07:10 87 17 97 04/23/22 07:00 38.6 C H 87 21 97 04/23/22 06:19 94 04/23/22 06:16 18 92 04/23/22 06:05 84 L 04/23/22 04:45 37.6 C H 68 17 96/48 L 94 04/23/22 04:30 37.6 C H 68 17 88/46 L 94 04/23/22 04:15 37.7 C H 69 20 95/43 L 95 04/23/22 04:04 37.7 C H 69 20 95/49 L 93 04/23/22 04:00 37.7 C H 68 17 84/45 L 91 04/23/22 03:45 37.8 C H 66 17 86/41 L 92 04/23/22 03:33 37.9 C H 66 17 83/43 L 95 04/23/22 03:31 37.9 C H 67 17 76/41 L 95 04/23/22 03:30 37.9 C H 67 16 76/44 L 95 04/23/22 03:16 38.0 C H 67 17 81/44 L 95 04/23/22 03:10 38.1 C H 68 16 94 04/23/22 03:00 38.1 C H 67 19 89/45 L 96 04/23/22 02:50 38.2 C H 68 17 94 04/23/22 02:46 38.2 C H 68 16 85/42 L 95 04/23/22 02:45 38.2 C H 69 15 79/49 L 96 04/23/22 02:40 68 17 95 04/23/22 02:30 38.3 C H 71 17 84/46 L 92 04/23/22 02:20 38.4 C H 71 20 93 04/23/22 02:10 38.5 C H 72 17 93 04/23/22 02:04 38.5 C H 73 18 82/45 L 95 04/23/22 02:03 38.5 C H 73 16 94/38 L 96 04/23/22 02:02 73 19 71/28 L 98 04/23/22 02:00 38.5 C H 72 17 69/30 L 99 04/23/22 01:00 38.6 C H 75 18 104/47 L 93
[2022-04-23] MEDS: METOPROLOL TARTRATE 25 MG TAB PO SCH ×3 (13:21→20:21)
[2022-04-23 15:23] LABS: Partial Thromboplastin Ratio 1.9
[2022-04-23 15:24] LABS: Partial Thromboplastin Time 52.7 Seconds (21.0-31.0)
[2022-04-23] MEDS: DIGOXIN 0.25 MG TAB PO SCH (15:46)
[2022-04-23] MEDS: HEPARIN SODIUM/DEXTROSE 25,000 UNITS/500 ML BAG IV SCH (15:51)
[2022-04-23] MEDS: ICU ELECTROLYTE REPLACEMENT PROTOCOL SCH (15:54)
--- NOTE | 2022-04-23 18:04 | Hospitalist Progress Note ---
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 Fever/ ?Sepsis- ?source. Patient presented with fever, hypotension and lactic acidosis. Normal WBC, elevated procal. Remains persistently febrile despite empiric broad spectrum antibiotics vanc zosyn doxy- being managed by timing adjuster. Follow blood clx. ID has been consulted. May need bronchoscopy. Acute hypoxemic respiratory failure with diffuse pulmonary infiltrates- ?lisha hemorrhage. Resp Biofire negative. Currently on HFNC. [employer] managing. Also on iv lasix. Plan for CXR in am. May need bronchoscopy. Wean down oxygen as tolerated CT chest- 1. No CTA evidence for pulmonary embolus. 2. Marked bullous emphysematous changes involving the upper lobes bilaterally, right greater than left. 3. The bilateral airspace opacities actually represent preserved lung with groundglass opacity present. This most likely represents mild alveolar edema. 4. No confluent alveolar opacities were bronchograms are seen. 5. Cardiomegaly with extensive coronary artery calcification and atherosclerotic calcification of the aorta. Trop elevation- Per cardio, likely demand ischemia due to hypoxia and resp failure rather than NSTEMI. Echo noted. Cardiology managing Paroxysmal Afib with RVR- converted to NSR. Amio drip has been discontinued. Digoxin has been added. Continue metoprolol. Home eliquis on hold and on heparin drip instead. Further management per cardio Acute on chronic diastolic CHF- continue diuresis H/o CAD w/ hx of CABG x 4 Tachybrady syndrome s/p PPM Fall with forehead contusion and generalized weakness- CT head/Cspine negative for acute abnormality. PT OT eval when stable IDDM 2- A1c 6.7 12/15/21. Continue lantus/novolog per protocol L diabetic heel wound- established with wound care. WOCN eval Multiple myeloma with lytic bone lesions- Follows [facility] oncology, Dr. Garcia. Last treatment of Velcade was 04/21, receiving weekly. Holding revlimid and velcade. Hb drop- monitor, transfuse as indicated per ICU team DVT ppx: iv heparin Dispo- Critically ill. Remains in ICU Admission and Anticipated Discharge Date Admission Date: April 22, 2022 Subjective Feels fine. Continues to have fever. Denies any chest pain, shortness of breath, N/V. Tolerating oral intake without issues. Denies any pain. States having issues with constipation- could not have a BM today. Last BM 2 days back. Physical Exam Physical Exam: General: Lying comfortably in bed, not in distress, on HFNC HEENT: EOMI, STEVEN, MMM. Forehead contusion noted Chest: Crackles +, no tachypnea or labored breathing CVS: Regular rate and rhythm, normal heart sounds, no murmur Abdomen: Soft, non tender, not distended, normal bowel sounds Neuro: Awake, alert, oriented, conversing well, non focal Extremities: No cyanosis, clubbing or edema Left heel covered with mepilex Yadav with clear urine Results & Data Results & Data ([facility]) Vital Signs (Past 12 Hours) Vital Signs Temp Pulse Pulse Resp BP Pulse Ox 04/23/22 17:00 38.3 C H 84 19 100/47 L 92 04/23/22 16:00 38.4 C H 112 H 24 84/46 L 90 04/23/22 15:49 38.4 C H 101 H 17 80/46 L 92 04/23/22 15:46 110 H 04/23/22 15:19 83 20 97 04/23/22 15:00 38.4 C H 78 17 96 04/23/22 14:00 38.4 C H 79 17 99/48 L 93 04/23/22 13:21 38.5 C H 82 17 95/48 L 93 04/23/22 13:00 38.6 C H 83 18 80/44 L 93 04/23/22 12:00 38.8 C H 79 18 100/57 L 93 04/23/22 11:45 77 20 94 04/23/22 11:00 39.2 C H 78 19 92 04/23/22 10:01 39.3 C H 83 19 107/43 L 95 04/23/22 09:00 39.5 C H 88 24 101/58 L 90 04/23/22 08:00 39.5 C H 93 H 23 104/47 L 90 04/23/22 07:30 39.1 C H 88 24 109/53 L 92 04/23/22 07:10 87 17 97 04/23/22 07:00 38.6 C H 87 21 97 04/23/22 06:19 94 04/23/22 06:16 18 92 04/23/22 06:05 84 L Laboratory Results Short CBC 04/23/22 Range/Units 05:39 WBC 4.81 (4.8-10.8) K/ul Hgb 7.2 L (14.0-18.0) g/dl Hct 22.2 L (40.1-51.0) % Plt Count 130 (130-400) K/uL BMP 04/22/22 04/23/22 04/23/22 20:52 05:39 10:51 Sodium 134 L 137 134 L Potassium 3.4 L 2.9 L 3.8 D Chloride 100 103 101 Carbon Dioxide 21 25 24 BUN 20 19 17 Creatinine 1.11 1.05 1.16 Glucose 176 H 57 L 118 H Calcium 7.9 L 7.8 L 8.2 L Liver Function 04/23/22 Range/Units 05:39 Total Bilirubin 0.8 (0.2-1.0) mg/dl AST 33 (13-39) U/L ALT 15 (7-52) U/L Alkaline Phosphatase 40 (34-104) U/L Albumin 3.3 L (3.4-5.0) gm/dl Medications Administered Current Inpatient Medications Acetaminophen (Acetaminophen 325 Mg Tab) 650 mg PO Q4H PRN PRN Reason: Pain or Fever Stop: 05/22/22 14:56 Last Admin: 04/23/22 15:46 Dose: 650 mg Documented by: Acyclovir (Acyclovir 400 Mg Tab) 400 mg PO BID RIVERA Stop: 05/22/22 20:59 Last Admin: 04/23/22 08:13 Dose: 400 mg Documented by: Al Hydrox/Mg Hydrox/Simethicone (Aluminum/Magnesium Susp 30 Ml Udc) 15 ml PO Q4H PRN PRN Reason: Dyspepsia Stop: 05/22/22 14:56 Albuterol (Albut/Ipratrop 3mg/0.5mg Neb 3 Ml Vial) 3 ml NEB QIDR PRN; Protocol PRN Reason: sob/wheezing Stop: 05/22/22 14:56 Last Admin: 04/22/22 17:20 Dose: 3 ml Documented by: Aspirin (Aspirin 81 Mg Ectab) 81 mg PO DAILY RIVERA Stop: 05/23/22 08:59 Last Admin: 04/23/22 08:14 Dose: 81 mg Documented by: Atorvastatin Calcium (Atorvastatin 40 Mg Tab) 40 mg PO DAILY RIVERA Stop: 05/23/22 08:59 Last Admin: 04/23/22 08:13 Dose: 40 mg Documented by: Cyanocobalamin (Cyanocobalamin (B-12) 500 Mcg Tablet) 1,000 mcg PO DAILY RIVERA Stop: 05/23/22 08:59 Last Admin: 04/23/22 08:14 Dose: 1,000 mcg Documented by: Dextrose (Dextrose 50% 50 Ml Syringe) 25 - 50 ml IV UD PRN; Protocol PRN Reason: Hypoglycemia Protocol Stop: 05/22/22 14:56 Last Admin: 04/23/22 06:47 Dose: 25 ml Documented by: Digoxin (Digoxin 0.25 Mg Tab) 0.25 mg PO DAILY@1600 RIVERA Stop: 05/23/22 15:59 Last Admin: 04/23/22 15:46 Dose: 0.25 mg Documented by: Docusate Sodium (Docusate Sodium 100 Mg Cap) 100 mg PO BID RIVERA Stop: 05/22/22 20:59 Last Admin: 04/23/22 08:13 Dose: 100 mg Documented by: Doxycycline Hyclate (Doxycycline Hyclate 100 Mg Cap) 100 mg PO BID RIVERA Stop: 04/24/22 15:14 Last Admin: 04/23/22 08:13 Dose: 100 mg Documented by: Ferrous Sulfate (Ferrous Sulfate 325 Mg Tab) 325 mg PO DAILY RIVERA Stop: 05/23/22 08:59 Last Admin: 04/23/22 08:14 Dose: 325 mg Documented by: Furosemide (Furosemide 40 Mg/4 Ml Vial) 40 mg IV BID RIVERA Stop: 05/23/22 08:59 Last Admin: 04/23/22 10:12 Dose: 40 mg Documented by: Gabapentin (Gabapentin 300 Mg Cap) 300 mg PO DAILY [facility] Stop: 05/23/22 08:59 Last Admin: 04/23/22 08:14 Dose: 300 mg Documented by: Glucagon (Glucagon For Inj 1 Mg Vial) 1 mg SQ UD PRN; Protocol PRN Reason: Hypoglycemia Protocol Stop: 05/22/22 14:56 Glucose (Glucose 10 Tabs/Tube) 4 - 8 tabs PO UD PRN; Protocol PRN Reason: Hypoglycemia Protocol Stop: 05/22/22 14:56 Glucose (Glucose 40% Gel 15 Gm Tube) 15 - 30 gm PO UD PRN; Protocol PRN Reason: Hypoglycemia Protocol Stop: 05/22/22 14:56 Promethazine HCl 12.5 mg/ (Sodium Chloride) 50.5 mls @ 202 mls/hr IV Q6H PRN PRN Reason: Nausea And Vomiting Stop: 05/22/22 14:56 Heparin Sodium/Dextrose (Heparin Sodium/Dextrose) 25,000 units in 500 mls @ 21 mls/hr IV .[id number] [facility]; Protocol Stop: 05/22/22 17:29 Last Admin: 04/23/22 15:51 Dose: 1,050 units/hr, 21 mls/hr Documented by: Piperacillin Sod/Tazobactam (Sod 4.5 gm/ Dextrose) 120 mls @ 30 mls/hr IV Q8H [facility]; Protocol Stop: 04/24/22 22:29 Last Infusion: 04/23/22 17:13 Dose: Infused Documented by: Vancomycin HCl 1,000 mg/ (Sodium Chloride) 270 mls @ 200 mls/hr IV Q18H [facility] Stop: 04/25/22 05:59 Last Infusion: 04/23/22 07:09 Dose: Infused Documented by: Insulin Aspart (Insulin Aspart Per Unit) 0 units SC ACHS [facility] Stop: 05/22/22 16:29 Last Admin: 04/23/22 15:53 Dose: 2 units Documented by: Insulin Glargine (Lantus Per Unit Charge) 0 - 40 units SQ QPM [facility]; Protocol Stop: 05/22/22 20:59 Last Admin: 04/22/22 21:45 Dose: 40 units Documented by: Isosorbide Mononitrate (Isosorbide [place] Extended Rel 30 Mg Tabcr) 30 mg PO DAILY RIVERA Stop: 05/23/22 08:59 Last Admin: 04/23/22 08:14 Dose: 30 mg Documented by: Magnesium Hydroxide (Magnesium Hydroxide Susp 30 Ml Udc) 30 ml PO Q12H PRN PRN Reason: Constipation Stop: 05/22/22 14:56 Metoprolol Tartrate (Metoprolol Tartrate 25 Mg Tab) 12.5 mg PO TID RIVERA Stop: 05/23/22 13:59 Last Admin: 04/23/22 15:45 Dose: 12.5 mg Documented by: Miscellaneous (Carbohydrates For Hypoglycemia ) 15 - 30 gm PO UD PRN PRN Reason: Hypoglycemia Protocol Stop: 05/22/22 14:56 Last Admin: 04/23/22 05:58 Dose: 15 gm Documented by: Miscellaneous (Icu Electrolyte Replacement Protocol) 1 ea N/A BID@06,18 [facility]; Protocol Stop: 04/30/22 17:59 Last Admin: 04/23/22 15:54 Dose: Not Given Documented by: Miscellaneous Information (Vancomycin Consult Active) 1 ea N/A UD PRN PRN Reason: Consult Stop: 05/22/22 15:10 Oxycodone HCl (Oxycodone Hcl Ir 5 Mg Tab (Immediate Release)) 5 mg PO Q6H PRN PRN Reason: Pain Stop: 05/07/22 10:01 Polyethylene Glycol (Polyethylene (Miralax) 17 Gm Pack) 17 gm PO DAILY PRN PRN Reason: Constipation Stop: 05/22/22 14:56 Last Admin: 04/23/22 08:12 Dose: 17 gm Documented by: (1) CHF (congestive heart failure) Heart failure chronicity: unspecified Heart failure type: unspecified Qualified Code(s): I50.9 - Heart failure, unspecified
[2022-04-23] MEDS: LANTUS PER UNIT CHARGE SQ SCH (20:40)
--- NOTE | 2022-04-23 22:57 | Electrocardiogram Report ---
Test Reason : Blood Pressure : / mmHG Vent. Rate : 106 BPM Atrial Rate : 104 BPM P-R Int : 000 ms QRS Dur : 098 ms QT Int : 362 ms P-R-T Axes : 000 144 137 degrees QTc Int : 480 ms Poor data quality, interpretation may be adversely affected Sinus tachycardia Left posterior fascicular block Nonspecific ST and T wave abnormality Abnormal ECG When compared with ECG of 22-APR-2022 07:53, Left posterior fascicular block is now Present Criteria for Anterior infarct are no longer Present Nonspecific T wave abnormality, worse in Inferior leads Confirmed by Juan M Akhtar ([id number]) on 04/23/2022 10:57:29 PM Referred By: REFERRED SELF Confirmed By:Juan M Akhtar
--- NOTE | 2022-04-23 23:03 | Electrocardiogram Report ---
Test Reason : Blood Pressure : / mmHG Vent. Rate : 107 BPM Atrial Rate : 120 BPM P-R Int : 000 ms QRS Dur : 108 ms QT Int : 400 ms P-R-T Axes : 000 061 199 degrees QTc Int : 534 ms Atrial fibrillation with rapid ventricular response Nonspecific ST and T wave abnormality Prolonged QT Abnormal ECG When compared with ECG of 22-APR-2022 16:49, Atrial fibrillation has replaced Sinus rhythm Previous ECG may have had limb lead reversal Non-specific change in ST segment in Inferior leads QT has lengthened Confirmed by Juan M Akhtar ([id number]) on 04/23/2022 11:03:06 PM Referred By: REFERRED SELF Confirmed By:Juan M Akhtar
[2022-04-24] MEDS: PIPERACILLIN/TAZOBACTAM 4.5 GM in DEXTROSE 5% 100 ML IV SCH ×3 (05:18→22:57)
[2022-04-24] MEDS: oxyCODONE HCL IR 5 MG TAB (IMMEDIATE RELEASE) PO PRN ×2 (05:18→21:39)
--- NOTE | 2022-04-24 05:57 | Electrocardiogram Report ---
Test Reason : Blood Pressure : / mmHG Vent. Rate : 072 BPM Atrial Rate : 072 BPM P-R Int : 220 ms QRS Dur : 118 ms QT Int : 480 ms P-R-T Axes : 045 070 135 degrees QTc Int : 526 ms Sinus rhythm with 1st degree A-V block Non-specific intra-ventricular conduction delay Nonspecific ST and T wave abnormality Prolonged QT Abnormal ECG When compared with ECG of 22-APR-2022 18:35, Sinus rhythm has replaced Atrial fibrillation Vent. rate has decreased BY 35 BPM Nonspecific T wave abnormality now evident in Anterior leads Confirmed by Juan M Akhtar ([id number]) on 04/24/2022 5:57:28 AM Referred By: REFERRED SELF Confirmed By:Juan M Akhtar
[2022-04-24 06:06] LABS: Hematocrit (blood only) 21.2 % (40.1-51.0); Mean Corpuscular Volume 96.8 fL (80.0-100.0); Mean Platelet Volume 10.3 fL (9.4-12.4); Platelet Count 122 K/uL (130-400); RDW Coefficient of Variation 14.3 % (11.5-14.5); RDW Standard Deviation 50.7 fL (36.4-46.3); Red Blood Count 2.19 M/uL (4.63-6.08); White Blood Count 5.26 K/ul (4.8-10.8)
[2022-04-24 06:16] LABS: Partial Thromboplastin Ratio > 5.1
[2022-04-24 06:21] LABS: Basophils # (auto) 0.01 K/uL (0-0.2); Basophils % (auto) 0.2 %; Eosinophils # (auto) 0.06 K/uL (0-0.50); Eosinophils % (auto) 1.1 %; Immature Granulocytes # (auto) 0.04 K/uL (0.00-0.02); Immature Granulocytes % (auto) 0.8 %; Lymphocytes # (auto) 0.25 K/uL (1.2-3.4); Lymphocytes % (auto) 4.8 %; Monocytes # (auto) 0.24 K/uL (0.24-0.82); Monocytes % (auto) 4.6 %; Neutrophils # (auto) 4.66 K/uL (1.4-6.5); Neutrophils % (auto) 88.5 %; Tear Drop Cells Occasional
[2022-04-24 06:23] LABS: Albumin Globulin Ratio 1.2 (0.9-2); Albumin Level 3.2 gm/dl (3.4-5.0); BUN Creatinine Ratio 17.2 (10-20); Bilirubin,Total 0.9 mg/dl (0.2-1.0); Calcium 7.8 mg/dl (8.5-10.1); Creatinine Clr Calc Pharmacy 58.1 ml/min; Est GFR (Non-African American) 61.3 ml/min; Globulin 2.6 gm/dl (2.5-4.0); Magnesium 2.1 mg/dl (1.7-2.4); Phosphorus 2.2 mg/dl (2.5-4.9); Potassium 2.9 mmol/L (3.5-5.1); Total Protein 5.8 gm/dl (6.0-8.3)
[2022-04-24 06:34] LABS: Partial Thromboplastin Time > 139.0 Seconds (21.0-31.0)
[2022-04-24] MEDS: ICU ELECTROLYTE REPLACEMENT PROTOCOL SCH (06:42)
[2022-04-24] MEDS ORDERED: POTASSIUM PHOS 3 MMOL/1 ML INFUSION IV STA (06:45)
[2022-04-24] MEDS ORDERED: POTASSIUM CHLORIDE CRTAB 20 MEQ TABCR PO STA (06:45)
[2022-04-24] MEDS ORDERED: POTASSIUM PHOSPHATE 15 MMOL in SODIUM CHLORIDE 0.9% 250 ML IV ONE (07:00)
[2022-04-24] MEDS: POTASSIUM CHLORIDE / WTR 10 MEQ/100 ML PLCT IV SCH ×4 (07:14→11:01)
[2022-04-24] MEDS: INSULIN ASPART PER UNIT SC SCH ×4 (07:15→20:22)
[2022-04-24] MEDS: MAGNESIUM HYDROXIDE SUSP 30 ML UDC PO PRN ×2 (07:16→18:35)
[2022-04-24] MEDS: POLYETHYLENE (MIRALAX) 17 GM PACK PO PRN (07:16)
[2022-04-24] MEDS: FUROSEMIDE 40 MG/4 ML VIAL IV SCH ×2 (07:16→20:08)
[2022-04-24] MEDS: ACETAMINOPHEN 325 MG TAB PO PRN ×3 (07:16→23:13)
[2022-04-24] MEDS: DOCUSATE SODIUM 100 MG CAP PO SCH ×2 (07:33→20:07)
[2022-04-24] MEDS: METOPROLOL TARTRATE 25 MG TAB PO SCH ×3 (07:33→20:07)
[2022-04-24] MEDS: DOXYCYCLINE HYCLATE 100 MG CAP PO SCH ×2 (07:33→20:07)
[2022-04-24] MEDS: ACYCLOVIR 400 MG TAB PO SCH ×2 (07:33→20:07)
[2022-04-24] MEDS: ISOSORBIDE MONO EXTENDED REL 30 MG TABCR PO SCH (07:34)
[2022-04-24] MEDS: ASPIRIN 81 MG ECTAB PO SCH (07:34)
[2022-04-24] MEDS: CYANOCOBALAMIN (B-12) 500 MCG TABLET PO SCH (07:34)
[2022-04-24] MEDS: FERROUS SULFATE 325 MG TAB PO SCH (07:34)
[2022-04-24] MEDS: ATORVASTATIN 40 MG TAB PO SCH (07:34)
[2022-04-24] MEDS: GABAPENTIN 300 MG CAP PO SCH (07:34)
--- NOTE | 2022-04-24 07:37 | Critical Care Progress Note ---
Date of Service April 24, 2022 Assessment & Plan (1) Respiratory failure with hypoxia: Plan: Impression: 76-year-old male with a history of coronary disease and diastolic heart failure as well as stage II multiple myeloma currently on Velcade, dexamethasone, and Revlimid followed at [facility] oncology admitted 04/22/2022 with weakness falls and fever with hypoxemic respiratory failure, non-ST elevation myocardial infarction, atrial fibrillation with rapid ventricular response. 24-hour events:Patient's oxygen requirement has decreased over the past 24 hours decreasing the rate of high flow from 30 down to 10 L/min. Patient's atrial fibrillation had converted to normal sinus rhythm yesterday and amiodarone was discontinued, however, patient has reconverted back into A. fib with RVR. Patient clinically doing better overall. Recommendations: 1. Neurologic: No current issues. Continue to follow clinically. He been on narcotics in the outpatient setting. Continue pain management. 2. Cardiovascular: Non-ST elevation myocardial infarction, congestive heart failure. Continue Lasix. Amiodarone stopped overnight. Anticoagulated on heparin currently. Defer additional rate control to cardiology, metoprolol tartrate 12.5 mg tid increased to 25 mg TID. Patient has some wall motion abnormalities on his echocardiogram, but these are unchanged from echo in 2015. 3. Pulmonary: Hypoxemic respiratory failure with diffuse pulmonary infiltrates. Differential is broad to include hydrostatic pulmonary edema, atypical infection including PJP and Legionella given the patient's immunocompro mise status, pulmonary hemorrhage, or pulmonary infiltrates related to chemotherapeutics. Pulmonary infiltrates have been rarely described with both Velcade and Revlimid. Repeat chest x-ray this morning reveals improved bilateral pulmonary infiltrates. As patient is clinically improved, can hold off on bronchoscopy for now and last patient's status deteriorates. 4. ID: Patient is persistently febrile despite broad-spectrum antibiotics. Cultures are negative to date. Repeat blood cultures, urine culture pending. Check urinary Legionella antigen, pending. Fungal blood cultures will also be requested as well as galactomannan, pending. If the patient can tolerate, may consider bronchoscopy with BAL, if clinical picture worsens. ID consult yesterday, appreciate recommendations. Day #3 Zosyn, doxycycline. Discontinue vancomycin. Continue acyclovir. Biofire negative. Cultures from the patient's foot have grown staph aureus in the past. 5. Renal: Hypokalemia today at 2.9. Continue with diuresis. ICU electrolyte replacement protocol. 6. GI: No current issues. Continue current diet. PPI 7. Heme-onc: Anemia: Decrease in hemoglobin overnight. No evidence of active ongoing bleeding. Pulmonary hemorrhage is a possibility. Patient does have multiple myeloma. Holding Revlimid and Velcade. Due to patient's multiple comorbidities and hemoglobin of 7 that is consistently, slowly dropping, will transfuse 1 unit of packed red blood cells today over 4-hour period. 8. Endocrine: Patient has been on dexamethasone in the outpatient setting. He is at risk for relative adrenal insufficiency. If his hemodynamics are compromised, would have low threshold for proceeding with stress dose steroids. Continue glycemic control per protocol Patient able to be downgraded from the ICU today, will contact hospitalist provider. Please do not hesitate to reach out if there are any questions or concerns regarding this patient's care. (2) Acute on chronic HFrEF (heart failure with reduced ejection fraction): (3) Paroxysmal atrial fibrillation with RVR: (4) Anemia: (5) NSTEMI (non-ST elevated myocardial infarction): (6) Fever: Admission and Anticipated Discharge Date Admission Date: April 22, 2022 Supervising Physician Co-Signing Physician Notes Patient seen and examined. EMR reviewed. Discussed on multidisciplinary rounds with bedside critical care nurse as well as with family practice resident. Agree with assessment plan as noted. Patient has had continued improvement in his oxygenation and hemodynamics. He converted back to sinus. We will increase his beta-annika under the direction of cardiology. Think it is reasonable to hold his anticoagulation in light of anemia. No evidence of active blood loss and suspect this is likely related to poorly functioning marrow given his decreased reticulocyte percentage. We will transfuse 1 unit of packed cells in light of his elevated troponin and continue to trend. Appreciate ID consult. Discontinue vancomycin. Continue Zosyn doxycycline for 5 days. Given his clinical improvement with regards to his fever curve and oxygenation, I do not think we need to proceed with bronchoscopy for now although if the patient should clinically worsen would have low threshold for proceeding with bronchoalveolar lavage. Continue to wean oxygen as tolerated. Management of his atrial fibrillation and cardiac issues per cardiology. The patient appears to be stable at this point time to transfer out of the ICU. We will continue to follow for pulmonary issues. Feel free to contact us with questions or concerns Subjective Patient seen at bedside this morning. No acute events reported overnight. Patient reports that his shortness of breath has improved significantly since yesterday. Reportedly patient was converted to sinus rhythm yesterday, however, is currently in atrial fibrillation at the time of writing this note with rate greater than 100. Describes intermittent chest achiness but no constant chest pain with radiation. Generally he seems to be feeling better. Has been afebrile since late yesterday evening No other complaints at this time. Review of Systems Review of Systems: All systems reviewed & are unremarkable except as noted in HPI & below Physical Exam Constitutional: WD/WN, vitals as above Neck: normal visual inspection Respiratory: normal respiratory effort Auscultation: + crackles; no rhonchi and no wheezes Cardiovascular: Rate/Rhythm: + irregularly irregular Vessels: no JVD Extremities: no edema Gastrointestinal (Abdomen): normal bowel sounds, soft, nontender, no hepatosplenomegaly Musculoskeletal: Head/Neck/Chest: normocephalic and head atraumatic Skin: no rashes, warm and dry Neurologic: PERRL, EOMI, accommodation nl, no face palsy, no dysarthria Psychiatric: A+Ox3, euthymic affect Lymphatic: no cervical lymphadenopathy Results & Data Results & Data ([facility]) Vital Signs (Past 12 Hours) Vital Signs Temp Pulse Pulse Pulse Resp BP BP 04/24/22 06:00 37.6 C H 98 H 16 106/61 04/24/22 04:59 37.6 C H 101 H 16 93/60 L 04/24/22 04:00 37.6 C H 94 H 15 108/75 04/24/22 03:10 89 18 04/24/22 03:01 37.8 C H 103 H 12 95/44 L 04/24/22 02:00 38.0 C H 116 H 14 107/30 L 04/24/22 01:00 38.0 C H 111 H 16 86/48 L 04/24/22 00:03 37.5 C 113 H 24 04/24/22 00:00 37.5 C 105 H 21 114/59 L 04/23/22 23:00 37.5 C 97 H 16 106/45 L 04/23/22 22:30 84 20 04/23/22 22:00 37.5 C 69 16 110/46 L 04/23/22 21:00 37.6 C H 71 15 109/49 L 04/23/22 20:00 37.9 C H 72 16 102/50 L 04/23/22 19:38 74 20 Pulse Ox 04/24/22 06:00 96 04/24/22 04:59 95 04/24/22 04:00 93 04/24/22 03:10 96 04/24/22 03:01 97 04/24/22 02:00 95 04/24/22 01:00 95 04/24/22 00:03 89 L 04/24/22 00:00 93 04/23/22 23:00 95 04/23/22 22:30 94 04/23/22 22:00 96 04/23/22 21:00 98 04/23/22 20:00 94 04/23/22 19:38 93
--- NOTE | 2022-04-24 07:43 | XRay Report ---
XR chest 1V portable CLINICAL HISTORY: Follow-up bilateral airspace opacities. COMPARISON STUDY: 04/23/2022 TECHNIQUE: 1 view of the chest FINDINGS: Single frontal view of the chest demonstrates the heart to again be enlarged status post previous car diothoracic surgery and pacer placement. Compared to the previous examination, there is slight improv ement of bilateral airspace opacities, left greater than right. There are no definite pleural effusio ns. . There is no acute osseous pathology. IMPRESSION: 1. Slight interval improvement of bilateral alveolar opacities with findings again worse on the left when compared to the right. As seen on the CT of the chest from 04/22/2022, the findings probably repre sent alveolar edema. ACT 112: Negative or not required by law. Electronically signed by: Juan Snyder M.D. 04/24/2022 7:42 AM
[2022-04-24 07:54] LABS: Partial Thromboplastin Ratio 1.9; Partial Thromboplastin Time 52.1 Seconds (21.0-31.0)
[2022-04-24] MEDS ORDERED: SODIUM CHLORIDE 0.9% 250 ML IV PRN (08:12)
[2022-04-24] MEDS ORDERED: METHYLNALTREXONE BROMIDE 12 MG/0.6 ML VIAL SQ ONE (08:45)
--- NOTE | 2022-04-24 09:57 | Cardiology Progress Note ---
Date of Service April 24, 2022 Assessment & Plan (1) Paroxysmal atrial fibrillation with RVR: (2) Hypokalemia: (3) Acute on chronic HFrEF (heart failure with reduced ejection fraction): (4) Respiratory failure with hypoxia: (5) NSTEMI (non-ST elevated myocardial infarction): (6) Anemia: (7) Multiple myeloma: Plan: Paroxysmal atrial fibrillation with borderline rate control noted overnight. Titrate metoprolol to 25 mg 3 times daily. Continue digoxin 250 mcg daily. Supplement potassium and phosphorus as indicated. Renal function remained stable. Continue furosemide 40 mg twice daily. Follow daily weight, GFR, electrolytes. Troponin elevation on admission likely secondary to type II event, demand ischemia in the setting of hypoxia and acute respiratory insufficiency rather than plaque rupture. There are no new regional wall motion abnormalities on echocardiogram when compared to studies dating back to 2014. Eliquis on hold. Continue IV heparin. Continue empiric broad-spectrum antibiotics. Appreciate infectious disease input. Urinary Legionella antigen pending at this time. Admission and Anticipated Discharge Date Admission Date: April 22, 2022 Subjective Patient seen examined the bedside. Respiratory status improved. Currently oxygen saturation 94% on high flow nasal cannula. BiPAP discontinued. Telemetry reveals atrial fibrillation overnight with an average heart rate of approximately 90 bpm. Heart rate ranged from 80-110 bpm. Patient denies any palpitations. Reports occasional episodes of fleeting chest discomfort. No orthopnea or PND. No lower extremity edema. Currently sinus rhythm. Tolerating metoprolol and digoxin added yesterday. Amiodarone discontinued. Review of Systems Review of Systems: All systems reviewed & are unremarkable except as noted in Subjective Physical Exam Constitutional: well nourished and + ill appearing; no acute distress Respiratory: no respiratory distress, no labored breathing and no retractions Auscultation: + crackles (Bilateral bases); no rhonchi and no wheezes Cardiovascular: Rate/Rhythm: regular rate and regular rhythm Heart Sounds: normal S1 and normal S2; no murmur Vessels: radial pulses present; no JVD and no carotid bruit Extremities: no edema Gastrointestinal (Abdomen): Inspection/Auscultation: abdomen normal to inspection and normal bowel sounds; abdomen not distended Percussion/Palpation: abdomen soft; abdomen nontender, no guarding and abdomen not rigid Neurologic: CN's II-XI intact bilaterally and moves all extremities; no focal motor deficits Psychiatric: A+Ox3, euthymic affect Results & Data ([facility]) Vital Signs (Past 12 Hours) Vital Signs Temp Pulse Pulse Pulse Resp BP BP 04/24/22 07:50 100 H 20 04/24/22 07:00 37.7 C H 114 H 22 121/61 04/24/22 06:00 37.6 C H 98 H 16 106/61 04/24/22 04:59 37.6 C H 101 H 16 93/60 L 04/24/22 04:00 37.6 C H 94 H 15 108/75 04/24/22 03:10 89 18 04/24/22 03:01 37.8 C H 103 H 12 95/44 L 04/24/22 02:00 38.0 C H 116 H 14 107/30 L 04/24/22 01:00 38.0 C H 111 H 16 86/48 L 04/24/22 00:03 37.5 C 113 H 24 04/24/22 00:00 37.5 C 105 H 21 114/59 L 04/23/22 23:00 37.5 C 97 H 16 106/45 L 04/23/22 22:30 84 20 04/23/22 22:00 37.5 C 69 16 110/46 L Pulse Ox 04/24/22 07:50 93 04/24/22 07:00 92 04/24/22 06:00 96 04/24/22 04:59 95 04/24/22 04:00 93 04/24/22 03:10 96 04/24/22 03:01 97 04/24/22 02:00 95 04/24/22 01:00 95 04/24/22 00:03 89 L 04/24/22 00:00 93 04/23/22 23:00 95 04/23/22 22:30 94 04/23/22 22:00 96
--- NOTE | 2022-04-24 11:40 | Billing Data ---
Date of Service April 24, 2022 Coding Level of Care Code 48769 Subseq Hosp Care Lvl 3
[2022-04-24] MEDS: DIGOXIN 0.25 MG TAB PO SCH (15:57)
[2022-04-24] MEDS ORDERED: VANCOMYCIN HCL 1,500 MG in SODIUM CHLORIDE 0.9% 500 ML IV SCH (16:00)
[2022-04-24 16:30] LABS: Hematocrit (blood only) 26.1 % (40.1-51.0); Hemoglobin 8.6 g/dl (14.0-18.0); Mean Corpuscular Hemoglobin 30.6 pg (25.0-34.0); Mean Corpuscular Volume 92.9 fL (80.0-100.0); Mean Platelet Volume 10.3 fL (9.4-12.4); Platelet Count 136 K/uL (130-400); RDW Coefficient of Variation 15.6 % (11.5-14.5); RDW Standard Deviation 53.1 fL (36.4-46.3); Red Blood Count 2.81 M/uL (4.63-6.08); White Blood Count 6.27 K/ul (4.8-10.8)
--- NOTE | 2022-04-24 16:45 | Hospitalist Progress Note ---
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 Fever/ ?Sepsis- source ?respiratory. Patient presented with fever, hypotension and lactic acidosis. Normal WBC, elevated procal. Blood clx negative, urine clx negative, fungal blood clx pending. - Continues to have intermittent fever despite empiric broad spectrum antibiotics. - Seen by ID- recommendations noted- Vanc discontinued, on zosyn/doxy. ID recommended bronchoscopy and BAL as legionella negative however pulm currently deferred bronch given his clinical improvement. Acute hypoxemic respiratory failure with diffuse pulmonary infiltrates- ?atypical infection vs lisha edema vs hemorrhage. Resp Biofire negative. - S/p HFNC and bipap, now on NC. May need bronchoscopy. Wean down oxygen as tolerated CT chest- 1. No CTA evidence for pulmonary embolus. 2. Marked bullous emphysematous changes involving the upper lobes bilaterally, right greater than left. 3. The bilateral airspace opacities actually represent preserved lung with boo undglass opacity present. This most likely represents mild alveolar edema. 4. No confluent alveolar opacities were bronchograms are seen. 5. Cardiomegaly with extensive coronary artery calcification and atherosclerotic calcification of the aorta. Trop elevation- Per cardio, likely demand ischemia due to hypoxia and resp failure rather than NSTEMI. Echo noted. Cardiology managing Paroxysmal Afib with RVR- converted to NSR. Amio drip has been discontinued. Digoxin has been added. Metoprolol increased to tid. Home eliquis on hold and on heparin drip instead but held today due to anemia requiring transfusion and as less likely NSTEMI per cardio. Further management per cardio Acute on chronic diastolic CHF- continue diuresis, daily weight, continue I and Os measurement. H/o CAD w/ hx of CABG x 4 Tachybrady syndrome s/p PPM Fall with forehead contusion and generalized weakness- CT head/Cspine negative for acute abnormality. PT OT eval when stable IDDM 2- A1c 6.7 12/15/21. Continue lantus/novolog per protocol L diabetic heel wound- established with wound care. WOCN eval Multiple myeloma with lytic bone lesions- Follows [facility] oncology, Dr. Garcia. Last treatment of Velcade was 04/21, receiving weekly. Holding revlimid and velcade. Hb drop- Hb dropped to 7. No overt bleeding noted ?related to his acute illness and underlying MM. S/p 1 U PRBC, Hb improved to 8.6. Continue to monitor. Hypokalemia- repleted. recheck in am Hypophosphatemia- replete, recheck in am Constipation- Given a dose of relistor today per ball racker. DVT ppx: SCDs. Chemoprophylaxis on hold given anemia requiring transfusion. Will resume in am if stable. Dispo- Transfer to PCU per ball racker Updated at bedside Admission and Anticipated Discharge Date Admission Date: April 22, 2022 Subjective Feels better from admission. Appetite is improved. Still struggling with BMs. Breathing improved. Still has fevers. No N/V. Physical Exam Physical Exam: General: Lying comfortably in bed, not in distress, on NC HEENT: EOMI, STEVEN, MMM. Chest: Crackles +, no labored breathing CVS: Regular rate and rhythm, normal heart sounds, no murmur Abdomen: Soft, non tender, not distended, normal bowel sounds Neuro: Awake, alert, oriented, conversing well, non focal Extremities: No cyanosis, clubbing or edema Left heel covered with mepilex Yadav with clear urine Results & Data Results & Data ([facility]) Vital Signs (Past 12 Hours) Vital Signs Temp Pulse Pulse Pulse Resp BP BP 04/24/22 16:01 04/24/22 16:00 38.4 C H 89 23 04/24/22 15:02 04/24/22 15:00 37.8 C H 85 29 H 139/66 04/24/22 14:42 37.6 C H 94 H 23 129/71 04/24/22 14:00 37.4 C 84 21 141/68 H 04/24/22 13:45 37.4 C 79 20 125/60 04/24/22 12:46 37.4 C 77 16 120/55 L 04/24/22 12:00 37.4 C 77 18 110/54 L 04/24/22 11:45 37.4 C 79 20 121/53 L 04/24/22 11:16 37.4 C 76 23 113/56 L 04/24/22 11:01 37.5 C 75 17 115/55 L 04/24/22 11:00 37.5 C 76 19 115/55 L 04/24/22 10:45 37.5 C 75 16 105/51 L 04/24/22 10:00 37.6 C H 76 14 105/51 L 04/24/22 09:00 37.8 C H 83 16 101/47 L 04/24/22 08:01 37.7 C H 131 H 20 105/80 04/24/22 08:00 37.7 C H 108 H 13 04/24/22 07:50 100 H 20 04/24/22 07:00 37.7 C H 114 H 22 121/61 04/24/22 06:00 37.6 C H 98 H 16 106/61 04/24/22 04:59 37.6 C H 101 H 16 93/60 L Pulse Ox Pulse Ox Pulse Ox Pulse Ox 04/24/22 16:01 90 04/24/22 16:00 93 04/24/22 15:02 92 93 82 L 04/24/22 15:00 87 L 04/24/22 14:42 88 L 04/24/22 14:00 88 L 04/24/22 13:45 90 04/24/22 12:46 92 04/24/22 12:00 94 04/24/22 11:45 90 04/24/22 11:16 94 04/24/22 11:01 94 04/24/22 11:00 95 04/24/22 10:45 92 04/24/22 10:00 95 04/24/22 09:00 98 04/24/22 08:01 89 L 04/24/22 08:00 92 04/24/22 07:50 93 04/24/22 07:00 92 04/24/22 06:00 96 04/24/22 04:59 95 Laboratory Results Short CBC 04/24/22 04/24/22 Range/Units 05:32 16:03 WBC 5.26 6.27 (4.8-10.8) K/ul Hgb 7.0 L 8.6 L (14.0-18.0) g/dl Hct 21.2 L 26.1 L (40.1-51.0) % Plt Count 122 L 136 (130-400) K/uL BMP 04/24/22 05:32 Sodium 134 L Potassium 2.9 L D Chloride 100 Carbon Dioxide 24 BUN 20 Creatinine 1.16 Glucose 154 H Calcium 7.8 L Liver Function 04/24/22 Range/Units 05:32 Total Bilirubin 0.9 (0.2-1.0) mg/dl AST 30 (13-39) U/L ALT 18 (7-52) U/L Alkaline Phosphatase 50 (34-104) U/L Albumin 3.2 L (3.4-5.0) gm/dl Diagnostic Findings Chest X-Ray 04/24/22 07:00 XR chest 1V portable CLINICAL HISTORY: Follow-up bilateral airspace opacities. COMPARISON STUDY: 04/23/2022 TECHNIQUE: 1 view of the chest FINDINGS: Single frontal view of the chest demonstrates the heart to again be enlarged status post previous cardiothoracic surgery and pacer placement. Compared to the previous examination, there is slight improvement of bilateral airspace opacities, left greater than right. There are no definite pleural effusions. . There is no acute osseous pathology. IMPRESSION: 1. Slight interval improvement of bilateral alveolar opacities with findings again worse on the left when compared to the right. As seen on the CT of the chest from 04/22/2022, the findings probably represent alveolar edema. ACT 112: Negative or not required by law. Electronically signed by: Juan Snyder M.D. 04/24/2022 7:42 AM Medications Administered Current Inpatient Medications Acetaminophen (Acetaminophen 325 Mg Tab) 650 mg PO Q4H PRN PRN Reason: Pain or Fever Stop: 05/22/22 14:56 Last Admin: 04/24/22 07:16 Dose: 650 mg Documented by: Acyclovir (Acyclovir 400 Mg Tab) 400 mg PO BID RIVERA Stop: 05/22/22 20:59 Last Admin: 04/24/22 07:33 Dose: 400 mg Documented by: Al Hydrox/Mg Hydrox/Simethicone (Aluminum/Magnesium Susp 30 Ml Udc) 15 ml PO Q4H PRN PRN Reason: Dyspepsia Stop: 05/22/22 14:56 Albuterol (Albut/Ipratrop 3mg/0.5mg Neb 3 Ml Vial) 3 ml NEB QIDR PRN; Protocol PRN Reason: sob/wheezing Stop: 05/22/22 14:56 Last Admin: 04/22/22 17:20 Dose: 3 ml Documented by: Aspirin (Aspirin 81 Mg Ectab) 81 mg PO DAILY RIVERA Stop: 05/23/22 08:59 Last Admin: 04/24/22 07:34 Dose: 81 mg Documented by: Atorvastatin Calcium (Atorvastatin 40 Mg Tab) 40 mg PO DAILY RIVERA Stop: 05/23/22 08:59 Last Admin: 04/24/22 07:34 Dose: 40 mg Documented by: Cyanocobalamin (Cyanocobalamin (B-12) 500 Mcg Tablet) 1,000 mcg PO DAILY RIVERA Stop: 05/23/22 08:59 Last Admin: 04/24/22 07:34 Dose: 1,000 mcg Documented by: Dextrose (Dextrose 50% 50 Ml Syringe) 25 - 50 ml IV UD PRN; Protocol PRN Reason: Hypoglycemia Protocol Stop: 05/22/22 14:56 Last Admin: 04/23/22 06:47 Dose: 25 ml Documented by: Digoxin (Digoxin 0.25 Mg Tab) 0.25 mg PO DAILY@1600 [facility] Stop: 05/23/22 15:59 Last Admin: 04/23/22 15:46 Dose: 0.25 mg Documented by: Docusate Sodium (Docusate Sodium 100 Mg Cap) 100 mg PO BID RIVERA Stop: 05/22/22 20:59 Last Admin: 04/24/22 07:33 Dose: 100 mg Documented by: Doxycycline Hyclate (Doxycycline Hyclate 100 Mg Cap) 100 mg PO BID RIVERA Stop: 04/27/22 23:59 Last Admin: 04/24/22 07:33 Dose: 100 mg Documented by: Ferrous Sulfate (Ferrous Sulfate 325 Mg Tab) 325 mg PO DAILY RIVERA Stop: 05/23/22 08:59 Last Admin: 04/24/22 07:34 Dose: 325 mg Documented by: Furosemide (Furosemide 40 Mg/4 Ml Vial) 40 mg IV BID RIVERA Stop: 05/23/22 08:59 Last Admin: 04/24/22 07:16 Dose: 40 mg Documented by: Gabapentin (Gabapentin 300 Mg Cap) 300 mg PO DAILY [facility] Stop: 05/23/22 08:59 Last Admin: 04/24/22 07:34 Dose: 300 mg Documented by: Glucagon (Glucagon For Inj 1 Mg Vial) 1 mg SQ UD PRN; Protocol PRN Reason: Hypoglycemia Protocol Stop: 05/22/22 14:56 Glucose (Glucose 10 Tabs/Tube) 4 - 8 tabs PO UD PRN; Protocol PRN Reason: Hypoglycemia Protocol Stop: 05/22/22 14:56 Glucose (Glucose 40% Gel 15 Gm Tube) 15 - 30 gm PO UD PRN; Protocol PRN Reason: Hypoglycemia Protocol Stop: 05/22/22 14:56 Promethazine HCl 12.5 mg/ (Sodium Chloride) 50.5 mls @ 202 mls/hr IV Q6H PRN PRN Reason: Nausea And Vomiting Stop: 05/22/22 14:56 Piperacillin Sod/Tazobactam (Sod 4.5 gm/ Dextrose) 120 mls @ 30 mls/hr IV Q8H RIVERA; Protocol Stop: 04/27/22 23:59 Last Admin: 04/24/22 13:30 Dose: 30 mls/hr Documented by: Sodium Chloride (Nss) 250 mls @ 15 mls/hr IV .[id number] PRN PRN Reason: For Transfusion Stop: 04/24/22 18:12 Insulin Aspart (Insulin Aspart Per Unit) 0 units SC ACHS RIVERA Stop: 05/22/22 16:29 Last Admin: 04/24/22 11:44 Dose: 9 units Documented by: Insulin Glargine (Lantus Per Unit Charge) 0 - 40 units SQ QPM RIVERA; Protocol Stop: 05/22/22 20:59 Last Admin: 04/23/22 20:40 Dose: 20 units Documented by: Isosorbide Mononitrate (Isosorbide [place] Extended Rel 30 Mg Tabcr) 30 mg PO DAILY [facility] Stop: 05/23/22 08:59 Last Admin: 04/24/22 07:34 Dose: 30 mg Documented by: Magnesium Hydroxide (Magnesium Hydroxide Susp 30 Ml Udc) 30 ml PO Q12H PRN PRN Reason: Constipation Stop: 05/22/22 14:56 Last Admin: 04/24/22 07:16 Dose: 30 ml Documented by: Metoprolol Tartrate (Metoprolol Tartrate 25 Mg Tab) 25 mg PO TID RIVERA Stop: 05/24/22 13:59 Last Admin: 04/24/22 13:33 Dose: 25 mg Documented by: Miscellaneous (Carbohydrates For Hypoglycemia ) 15 - 30 gm PO UD PRN PRN Reason: Hypoglycemia Protocol Stop: 05/22/22 14:56 Last Admin: 04/23/22 05:58 Dose: 15 gm Documented by: Oxycodone HCl (Oxycodone Hcl Ir 5 Mg Tab (Immediate Release)) 5 mg PO Q6H PRN PRN Reason: Pain Stop: 05/07/22 10:01 Last Admin: 04/24/22 05:18 Dose: 5 mg Documented by: Polyethylene Glycol (Polyethylene (Miralax) 17 Gm Pack) 17 gm PO DAILY PRN PRN Reason: Constipation Stop: 05/22/22 14:56 Last Admin: 04/24/22 07:16 Dose: 17 gm Documented by: (1) CHF (congestive heart failure) Heart failure chronicity: unspecified Heart failure type: unspecified Qualified Code(s): I50.9 - Heart failure, unspecified
[2022-04-24 17:30] LABS: Eosinophils # (auto) 0.06 K/uL (0-0.50); Immature Granulocytes # (auto) 0.05 K/uL (0.00-0.02); Immature Granulocytes % (auto) 0.8 %; Lymphocytes # (auto) 0.24 K/uL (1.2-3.4); Lymphocytes % (auto) 3.8 %; Monocytes # (auto) 0.26 K/uL (0.24-0.82); Monocytes % (auto) 4.1 %; Neutrophils # (auto) 5.66 K/uL (1.4-6.5); Neutrophils % (auto) 90.3 %
[2022-04-24] MEDS: LANTUS PER UNIT CHARGE SQ SCH (20:22)
[2022-04-25] MEDS: ACETAMINOPHEN 325 MG TAB PO PRN (05:49)
[2022-04-25] MEDS: PIPERACILLIN/TAZOBACTAM 4.5 GM in DEXTROSE 5% 100 ML IV SCH ×3 (05:49→22:14)
[2022-04-25] MEDS ORDERED: ALBUT/IPRATROP 3MG/0.5MG NEB 3 ML VIAL NEB STA (06:17)
[2022-04-25] MEDS ORDERED: methylPREDNISolone 20 MG in SYRINGE 0 ML IV STA (06:21)
[2022-04-25 06:46] LABS: HCO3 ABG 23 mmol/L (19-24); Oxygen Saturation ABG 99.2 % (90-95); PCO2 ABG 27 mmHg (35-46); PO2 ABG 110 mmHg (80-95)
[2022-04-25 06:47] LABS: Allen Test Pos (Pos)
[2022-04-25 06:49] LABS: Hematocrit (blood only) 25.6 % (40.1-51.0); Hemoglobin 8.4 g/dl (14.0-18.0); Mean Corpuscular Hemoglobin 30.5 pg (25.0-34.0); Mean Corpuscular Hgb Conc 32.8 g/dL (32.0-36.0); Mean Corpuscular Volume 93.1 fL (80.0-100.0); Mean Platelet Volume 10.5 fL (9.4-12.4); Platelet Count 124 K/uL (130-400); RDW Coefficient of Variation 15.7 % (11.5-14.5); RDW Standard Deviation 53.6 fL (36.4-46.3); Red Blood Count 2.75 M/uL (4.63-6.08); White Blood Count 6.28 K/ul (4.8-10.8); pH ABG 7.54 (7.35-7.45)
[2022-04-25 07:16] LABS: Anion Gap 12 (3-11); BUN Creatinine Ratio 20.6 (10-20); Blood Urea Nitrogen 20 mg/dl (6-23); Calcium 7.1 mg/dl (8.5-10.1); Carbon Dioxide 22 mmol/L (21-32); Chloride 101 mmol/L (98-107); Creatinine Clr Calc Pharmacy 68.1 ml/min; Est GFR (African American) 88.1 ml/min; Est GFR (Non-African American) 76.1 ml/min; Glucose 142 mg/dl (70-99(Fasting)); Potassium 3.4 mmol/L (3.5-5.1); Sodium 135 mmol/L (136-145)
[2022-04-25 07:26] LABS: Alanine Aminotransferase 42 U/L (7-52); Albumin Globulin Ratio 1.2 (0.9-2); Albumin Level 3.2 gm/dl (3.4-5.0); Alkaline Phosphatase 76 U/L (34-104); Aspartate Aminotransferase 50 U/L (13-39); Bilirubin,Total 1.1 mg/dl (0.2-1.0); Globulin 2.6 gm/dl (2.5-4.0); Phosphorus < 1.0 mg/dl (2.5-4.9); Total Protein 5.8 gm/dl (6.0-8.3)
[2022-04-25] MEDS ORDERED: POTASSIUM PHOS 3 MMOL/1 ML INFUSION IV STA (07:49)
[2022-04-25] MEDS ORDERED: POTASSIUM PHOSPHATE 40 MMOL in SODIUM CHLORIDE 0.9% 1000ML 1,000 ML IV ONE (08:00)
[2022-04-25 08:25] LABS: Basophils # (auto) 0.01 K/uL (0-0.2); Basophils % (auto) 0.2 %; Eosinophils # (auto) 0.08 K/uL (0-0.50); Eosinophils % (auto) 1.3 %; Immature Granulocytes # (auto) 0.05 K/uL (0.00-0.02); Immature Granulocytes % (auto) 0.8 %; Lymphocytes # (auto) 0.19 K/uL (1.2-3.4); Monocytes # (auto) 0.26 K/uL (0.24-0.82); Monocytes % (auto) 4.1 %; Neutrophils # (auto) 5.69 K/uL (1.4-6.5); Neutrophils % (auto) 90.6 %
--- NOTE | 2022-04-25 08:33 | XRay Report ---
XR chest 1V portable CLINICAL HISTORY: low o2. Follow-up bilateral airspace opacities COMPARISON STUDY: 04/24/2022 TECHNIQUE: 1 view of the chest FINDINGS: Single frontal view of the chest demonstrates the heart to again be enlarged status post previous car diothoracic surgery and pacer placement. Compared to previous examination, there is interval improvem ent in previously identified bilateral alveolar opacities. There is no evidence for pleural effusion. There is no evidence for vascular congestion. There is no acute osseous pathology. IMPRESSION: 1. Continued interval improvement in bilateral alveolar opacities which are again worse on the left w hen compared to the right. ACT 112: Negative or not required by law. Electronically signed by: Juan Snyder M.D. 04/25/2022 8:31 AM
[2022-04-25] MEDS: INSULIN ASPART PER UNIT SC SCH ×4 (09:35→20:40)
[2022-04-25] MEDS: METOPROLOL TARTRATE 25 MG TAB PO SCH ×3 (09:36→20:29)
[2022-04-25] MEDS: FUROSEMIDE 40 MG/4 ML VIAL IV SCH ×2 (09:36→20:34)
[2022-04-25] MEDS: GABAPENTIN 300 MG CAP PO SCH (09:36)
[2022-04-25] MEDS: ACYCLOVIR 400 MG TAB PO SCH ×2 (09:36→20:28)
[2022-04-25] MEDS: FERROUS SULFATE 325 MG TAB PO SCH (09:36)
[2022-04-25] MEDS: ASPIRIN 81 MG ECTAB PO SCH (09:36)
[2022-04-25] MEDS: ISOSORBIDE MONO EXTENDED REL 30 MG TABCR PO SCH (09:36)
[2022-04-25] MEDS: DOXYCYCLINE HYCLATE 100 MG CAP PO SCH ×2 (09:36→20:28)
[2022-04-25] MEDS: ATORVASTATIN 40 MG TAB PO SCH (09:36)
[2022-04-25] MEDS: DOCUSATE SODIUM 100 MG CAP PO SCH ×2 (09:36→20:34)
[2022-04-25] MEDS: CYANOCOBALAMIN (B-12) 500 MCG TABLET PO SCH (09:36)
[2022-04-25] MEDS: POLYETHYLENE (MIRALAX) 17 GM PACK PO PRN (09:49)
--- NOTE | 2022-04-25 10:39 | Pulmonology Progress Note ---
Date of Service April 25, 2022 Assessment & Plan (1) Respiratory failure with hypoxia: Plan: Impression: 76-year-old male with a history of coronary disease and diastolic heart failure as well as stage II multiple myeloma currently on Velcade, dexamethasone, and Revlimid followed at [facility] oncology admitted 04/22/2022 with weakness falls and fever with hypoxemic respiratory failure, non-ST elevation myocardial infarction, atrial fibrillation with rapid ventricular response. He has had persistent fevers. Cultures remain negative. White count is normal. Recommendations: 1. Hypoxemic respiratory failure: Multifactorial due to combinations of fluid overload and potential pneumonia. His chest x-ray actually looks better today but his oxygenation is worse and he remains persistently febrile. Galactomannan pending. Legionella urinary antigen negative. 2. Questionable pneumonia: Currently on antibiotics. Appreciate ID consultation. We will continue to follow and if he remains febrile over the weekend, consider bronchoscopy with BAL on Wednesday. 3. Would continue diuresis. The patient did receive transfusion yesterday which may be temporally associated with the fever and worsening oxygenation. His intake and output were slightly positive yesterday. Will continue to follow with you. (2) Acute on chronic HFrEF (heart failure with reduced ejection fraction): (3) Paroxysmal atrial fibrillation with RVR: (4) Anemia: (5) NSTEMI (non-ST elevated myocardial infarction): (6) Fever: Admission and Anticipated Discharge Date Admission Date: April 22, 2022 Subjective Patient seen and examined. He has been escalated back to high flow oxygen. He is sitting up at the bedside. He states he feels about the same. He is not coughing or expectorating significant phlegm. He denies chest pain or palpitations. He has been intermittently febrile again Review of Systems Review of Systems: All systems reviewed & are unremarkable except as noted in Subjective Physical Exam Eyes: PERRL, conjunctivae normal, anicteric sclerae Neck: trachea midline, no thyromegaly Respiratory: no labored breathing and not tachypneic Auscultation: + crackles; no wheezes Cardiovascular: RRR, no murmur, no edema Heart Sounds: normal S1 and normal S2 Extremities: normal capillary refill; no edema Gastrointestinal (Abdomen): normal bowel sounds, soft, nontender, no hepatosplenomegaly Skin: no rashes, warm and dry Neurologic: PERRL, EOMI, accommodation nl, no face palsy, no dysarthria Psychiatric: A+Ox3, euthymic affect Results & Data Results & Data ([facility]) Vital Signs (Past 12 Hours) Vital Signs Temp Pulse Pulse Pulse Resp BP Pulse Ox 04/25/22 07:45 38.2 C H 82 22 114/47 L 94 04/25/22 06:34 85 20 97 04/25/22 02:45 37.0 C 71 18 103/44 L 94 04/25/22 00:00 75 04/24/22 23:20 37 C 76 20 115/54 L 92 Laboratory Results 04/25/22 06:36 04/25/22 06:36 Cultures have shown no growth to date. Diagnostic Findings Chest x-ray from today was independently reviewed and compared to prior imaging studies. The lungs actually appears slightly more clear today compared to prior. PG Care Time/CCT Total # of Minutes Spent Total Time Spent with Patient: Total time spent is greater than 50% in coordination of care (as documented) at patient's floor/unit and/or counseling patient: Coding Level of Care Code 38071 Subseq Hosp Care Lvl 2 Diagnoses Respiratory failure with hypoxia J96.91 Acute on chronic HFrEF (heart failure with reduced ejection fraction) I50.23 Paroxysmal atrial fibrillation with RVR I48.0 Anemia D64.9 NSTEMI (non-ST elevated myocardial infarction) I21.4 Fever R50.9
--- NOTE | 2022-04-25 12:26 | Electrocardiogram Report ---
Test Reason : Blood Pressure : / mmHG Vent. Rate : 093 BPM Atrial Rate : 092 BPM P-R Int : 200 ms QRS Dur : 098 ms QT Int : 378 ms P-R-T Axes : 000 079 072 degrees QTc Int : 469 ms Sinus rhythm with Premature atrial complexes with Aberrant conduction Abnormal ECG When compared with ECG of 23-APR-2022 05:48, Aberrant conduction is now Present Nonspecific T wave abnormality no longer evident in Anterolateral leads Confirmed by Mariano Ahn ([id number]) on 04/25/2022 12:25:56 PM Referred By: REFERRED SELF Confirmed By:Marv Ahn
--- NOTE | 2022-04-25 14:25 | Hospitalist Progress Note ---
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 Fever/ ?Sepsis- source ?respiratory. Patient presented with fever, hypotension and lactic acidosis. Normal WBC, elevated procal. Blood clx negative, urine clx negative, fungal blood clx pending. - Continues to have intermittent fever despite empiric broad spectrum antibiotics. - Seen by ID- recommendations noted- Vanc discontinued, on zosyn/doxy. ID recommended bronchoscopy and BAL as legionella negative. Spoke with pulmonology today- if continues to have fever over the weekend, pulm will do bronchoscopy on Wednesday. Acute hypoxemic respiratory failure with diffuse pulmonary infiltrates- ?atypical infection vs lisha edema vs hemorrhage. Resp Biofire negative. - S/p HFNC and bipap, now on HFNC. May need bronchoscopy. Wean down oxygen as tolerated - CXR this morning looks improved from admission CT chest- 1. No CTA evidence for pulmonary embolus. 2. Marked bullous emphysematous changes involving the upper lobes bilaterally, right greater than left. 3. The bilateral airspace opacities actually represent preserved lung with groundglass opacity present. This most likely represents mild alveolar edema. 4. No confluent alveolar opacities were bronchograms are seen. 5. Cardiomegaly with extensive coronary artery calcification and atherosclerotic calcification of the aorta. Trop elevation- Per cardio, likely demand ischemia due to hypoxia and resp failure rather than NSTEMI. Echo noted. Cardiology managing Paroxysmal Afib with RVR- converted to NSR. Amio drip has been discontinued. Digoxin has been added. Metoprolol increased to tid. Home eliquis on hold and was on heparin drip instead but held 04/24 due to anemia requiring transfusion and as less likely NSTEMI per cardio. Further management per cardio Acute on chronic diastolic CHF- continue diuresis, daily weight, continue I and Os measurement. H/o CAD w/ hx of CABG x 4 Tachybrady syndrome s/p PPM Fall with forehead contusion and generalized weakness- CT head/Cspine negative for acute abnormality. PT OT eval when stable IDDM 2- A1c 6.7 12/15/21. Continue lantus/novolog per protocol L diabetic heel wound- established with wound care. WOCN eval Multiple myeloma with lytic bone lesions- Follows [facility] oncology, Dr. Garcia. Last treatment of Velcade was 04/21, receiving weekly. Holding revlimid and velcade. Anemia- Hb dropped to 7 from 9 on admission. No overt bleeding noted ?related to his acute illness and underlying MM. S/p 1 U PRBC, Hb improved to 8.6. Continue to monitor. Hb 9->7.2->7->8.6->8.4 Hypokalemia- repleted. recheck in am Severe hypophosphatemia- repleted, recheck in am Constipation- s/p relistor 04/24 and had BM. Continue bowel regimen. DVT ppx: SCDs. sc heparin. Resume heparin drip if goes back into Afib. Hold eliquis for now as possible plan for bronch on Wednesday. Dispo- PCU. On HFNC and diuresis for hypoxia. Plan for bronch on Wednesday if continues with fever Admission and Anticipated Discharge Date Admission Date: April 22, 2022 Subjective Feels about the same. Continues to have fever intermittently. No N/V/chest pain. States he had a bowel movement yesterday, decent one with relistor. He thinks he will need another shot today. Physical Exam Physical Exam: General: Lying comfortably in bed, not in distress, on HFNC HEENT: EOMI, STEVEN, MMM. Chest: Crackles +, no wheezes, no labored breathing CVS: Regular rate and rhythm, normal heart sounds, no murmur Abdomen: Soft, non tender, not distended, normal bowel sounds Neuro: Awake, alert, oriented, conversing well, non focal Extremities: No cyanosis, clubbing or edema Left heel covered with mepilex Aydav with clear urine Results & Data Results & Data ([facility]) Vital Signs (Past 12 Hours) Vital Signs Temp Pulse Pulse Pulse Resp BP Pulse Ox 04/25/22 11:52 36.9 C 73 20 112/65 100 04/25/22 08:00 75 04/25/22 07:45 38.2 C H 82 22 114/47 L 94 04/25/22 06:34 85 20 97 04/25/22 02:45 37.0 C 71 18 103/44 L 94 Laboratory Results Short CBC 04/24/22 04/25/22 Range/Units 16:03 06:36 WBC 6.27 6.28 (4.8-10.8) K/ul Hgb 8.6 L 8.4 L (14.0-18.0) g/dl Hct 26.1 L 25.6 L (40.1-51.0) % Plt Count 136 124 L (130-400) K/uL BMP 04/25/22 06:36 Sodium 135 L Potassium 3.4 L Chloride 101 Carbon Dioxide 22 BUN 20 Creatinine 0.97 Glucose 142 H Calcium 7.1 L Liver Function 04/25/22 Range/Units 06:36 Total Bilirubin 1.1 H (0.2-1.0) mg/dl AST 50 H (13-39) U/L ALT 42 (7-52) U/L Alkaline Phosphatase 76 (34-104) U/L Albumin 3.2 L (3.4-5.0) gm/dl Diagnostic Findings Chest X-Ray 04/25/22 06:17 XR chest 1V portable CLINICAL HISTORY: low o2. Follow-up bilateral airspace opacities COMPARISON STUDY: 04/24/2022 TECHNIQUE: 1 view of the chest FINDINGS: Single frontal view of the chest demonstrates the heart to again be enlarged status post previous cardiothoracic surgery and pacer placement. Compared to previous examination, there is interval improvement in previously identified bilateral alveolar opacities. There is no evidence for pleural effusion. There is no evidence for vascular congestion. There is no acute osseous pathology. IMPRESSION: 1. Continued interval improvement in bilateral alveolar opacities which are again worse on the left when compared to the right. ACT 112: Negative or not required by law. Electronically signed by: Juan Snyder M.D. 04/25/2022 8:31 AM Medications Administered Current Inpatient Medications Acetaminophen (Acetaminophen 325 Mg Tab) 650 mg PO Q4H PRN PRN Reason: Pain or Fever Stop: 05/22/22 14:56 Last Admin: 04/25/22 05:49 Dose: 650 mg Documented by: Acyclovir (Acyclovir 400 Mg Tab) 400 mg PO BID RIVERA Stop: 05/22/22 20:59 Last Admin: 04/25/22 09:36 Dose: 400 mg Documented by: Al Hydrox/Mg Hydrox/Simethicone (Aluminum/Magnesium Susp 30 Ml Udc) 15 ml PO Q4H PRN PRN Reason: Dyspepsia Stop: 05/22/22 14:56 Albuterol (Albut/Ipratrop 3mg/0.5mg Neb 3 Ml Vial) 3 ml NEB QIDR PRN; Protocol PRN Reason: sob/wheezing Stop: 05/22/22 14:56 Last Admin: 04/22/22 17:20 Dose: 3 ml Documented by: Aspirin (Aspirin 81 Mg Ectab) 81 mg PO DAILY RIVERA Stop: 05/23/22 08:59 Last Admin: 04/25/22 09:36 Dose: 81 mg Documented by: Atorvastatin Calcium (Atorvastatin 40 Mg Tab) 40 mg PO DAILY RIVERA Stop: 05/23/22 08:59 Last Admin: 04/25/22 09:36 Dose: 40 mg Documented by: Cyanocobalamin (Cyanocobalamin (B-12) 500 Mcg Tablet) 1,000 mcg PO DAILY RIVERA Stop: 05/23/22 08:59 Last Admin: 04/25/22 09:36 Dose: 1,000 mcg Documented by: Dextrose (Dextrose 50% 50 Ml Syringe) 25 - 50 ml IV UD PRN; Protocol PRN Reason: Hypoglycemia Protocol Stop: 05/22/22 14:56 Last Admin: 04/23/22 06:47 Dose: 25 ml Documented by: Digoxin (Digoxin 0.25 Mg Tab) 0.25 mg PO DAILY@1600 RIVERA Stop: 05/23/22 15:59 Last Admin: 04/24/22 15:57 Dose: 0.25 mg Documented by: Docusate Sodium (Docusate Sodium 100 Mg Cap) 100 mg PO BID RIVERA Stop: 05/22/22 20:59 Last Admin: 04/25/22 09:36 Dose: 100 mg Documented by: Doxycycline Hyclate (Doxycycline Hyclate 100 Mg Cap) 100 mg PO BID [facility] Stop: 04/27/22 23:59 Last Admin: 04/25/22 09:36 Dose: 100 mg Documented by: Ferrous Sulfate (Ferrous Sulfate 325 Mg Tab) 325 mg PO DAILY RIVERA Stop: 05/23/22 08:59 Last Admin: 04/25/22 09:36 Dose: 325 mg Documented by: Furosemide (Furosemide 40 Mg/4 Ml Vial) 40 mg IV BID RIVERA Stop: 05/23/22 08:59 Last Admin: 04/25/22 09:36 Dose: 40 mg Documented by: Gabapentin (Gabapentin 300 Mg Cap) 300 mg PO DAILY RIVERA Stop: 05/23/22 08:59 Last Admin: 04/25/22 09:36 Dose: 300 mg Documented by: Glucagon (Glucagon For Inj 1 Mg Vial) 1 mg SQ UD PRN; Protocol PRN Reason: Hypoglycemia Protocol Stop: 05/22/22 14:56 Glucose (Glucose 10 Tabs/Tube) 4 - 8 tabs PO UD PRN; Protocol PRN Reason: Hypoglycemia Protocol Stop: 05/22/22 14:56 Glucose (Glucose 40% Gel 15 Gm Tube) 15 - 30 gm PO UD PRN; Protocol PRN Reason: Hypoglycemia Protocol Stop: 05/22/22 14:56 Promethazine HCl 12.5 mg/ (Sodium Chloride) 50.5 mls @ 202 mls/hr IV Q6H PRN PRN Reason: Nausea And Vomiting Stop: 05/22/22 14:56 Piperacillin Sod/Tazobactam (Sod 4.5 gm/ Dextrose) 120 mls @ 30 mls/hr IV Q8H RIVERA; Protocol Stop: 04/27/22 23:59 Last Admin: 04/25/22 12:33 Dose: 30 mls/hr Documented by: Potassium Phosphate 40 mmol/ (Sodium Chloride) 1,013.3333 mls @ 100 mls/hr IV ONE ONE Stop: 04/25/22 18:07 Last Admin: 04/25/22 09:35 Dose: 100 mls/hr Documented by: Insulin Aspart (Insulin Aspart Per Unit) 0 units SC ACHS [facility] Stop: 05/22/22 16:29 Last Admin: 04/25/22 12:34 Dose: 9 units Documented by: Insulin Glargine (Lantus Per Unit Charge) 0 - 40 units SQ QPM RIVERA; Protocol Stop: 05/22/22 20:59 Last Admin: 04/24/22 20:22 Dose: 10 units Documented by: Isosorbide Mononitrate (Isosorbide [place] Extended Rel 30 Mg Tabcr) 30 mg PO DAILY RIVERA Stop: 05/23/22 08:59 Last Admin: 04/25/22 09:36 Dose: 30 mg Documented by: Magnesium Hydroxide (Magnesium Hydroxide Susp 30 Ml Udc) 30 ml PO Q12H PRN PRN Reason: Constipation Stop: 05/22/22 14:56 Last Admin: 04/24/22 18:35 Dose: 30 ml Documented by: Metoprolol Tartrate (Metoprolol Tartrate 25 Mg Tab) 25 mg PO TID RIVERA Stop: 05/24/22 13:59 Last Admin: 04/25/22 12:34 Dose: 25 mg Documented by: Miscellaneous (Carbohydrates For Hypoglycemia ) 15 - 30 gm PO UD PRN PRN Reason: Hypoglycemia Protocol Stop: 05/22/22 14:56 Last Admin: 04/23/22 05:58 Dose: 15 gm Documented by: Oxycodone HCl (Oxycodone Hcl Ir 5 Mg Tab (Immediate Release)) 5 mg PO Q6H PRN PRN Reason: Pain Stop: 05/07/22 10:01 Last Admin: 04/24/22 21:39 Dose: 5 mg Documented by: Polyethylene Glycol (Polyethylene (Miralax) 17 Gm Pack) 17 gm PO DAILY PRN PRN Reason: Constipation Stop: 05/22/22 14:56 Last Admin: 04/25/22 09:49 Dose: 17 gm Documented by: (1) CHF (congestive heart failure) Heart failure chronicity: unspecified Heart failure type: unspecified Qualified Code(s): I50.9 - Heart failure, unspecified
--- NOTE | 2022-04-25 15:05 | Cardiology Progress Note ---
Date of Service April 25, 2022 Assessment & Plan (1) Respiratory failure with hypoxia: (2) Acute on chronic HFrEF (heart failure with reduced ejection fraction): (3) Paroxysmal atrial fibrillation with RVR: (4) Hypokalemia: (5) NSTEMI (non-ST elevated myocardial infarction): (6) Anemia: (7) Multiple myeloma: Plan: Recommend discontinuation of IV normal saline. Continue furosemide 40 mg twice daily. Follow daily weight, fluid balance, GFR, and electrolytes. Patient without signs/symptoms of GI/ blood loss. Received packed red blood cells with improvement of hemoglobin. Recommend restart anticoagulation due to paroxysmal atrial fibrillation. Amiodarone discontinued in favor of metoprolol plus digoxin. Discussed with hospitalist. Continue empiric broad-spectrum antibiotics. Urinary Legionella antigen negative. Appreciate infectious disease and pulmonary input. Possible bronchoscopy Wednesday. Admission and Anticipated Discharge Date Admission Date: April 22, 2022 Subjective Patient seen and examined at the bedside. Feeling better today. Fluid balance negative nearly 3 L. Renal function remained stable. Received 2 units packed red blood cells yesterday. Currently receiving IV saline with potassium phosphorus rider. Heparin placed on hold by hospitalist due to anemia. No signs/symptoms of GI/ blood loss. Telemetry reveals atrial paced rhythm and sinus rhythm in the 60-70s. Denies palpitations, lightheadedness, or dizziness. Review of Systems Review of Systems: All systems reviewed & are unremarkable except as noted in Subjective Physical Exam Constitutional: well nourished and + ill appearing; no acute distress Respiratory: no respiratory distress, no labored breathing and no retractions Auscultation: + crackles (Bilateral bases); no rhonchi and no wheezes Cardiovascular: Rate/Rhythm: regular rate and regular rhythm Heart Sounds: normal S1 and normal S2; no murmur Vessels: radial pulses present; no JVD and no carotid bruit Extremities: no edema Gastrointestinal (Abdomen): Inspection/Auscultation: abdomen normal to inspection and normal bowel sounds; abdomen not distended Percussion/Palpation: abdomen soft; abdomen nontender, no guarding and abdomen not rigid Neurologic: CN's II-XI intact bilaterally and moves all extremities; no focal motor deficits Psychiatric: A+Ox3, euthymic affect Results & Data ([facility]) Vital Signs (Past 12 Hours) Vital Signs Temp Pulse Pulse Pulse Resp BP Pulse Ox 04/25/22 11:52 36.9 C 73 20 112/65 100 04/25/22 08:00 75 04/25/22 07:45 38.2 C H 82 22 114/47 L 94 04/25/22 06:34 85 20 97
[2022-04-25] MEDS ORDERED: Heparin IV Adult Wt-Based Low-Dose *NO* Bolus Protocol IV SCH (15:12)
[2022-04-25] MEDS: POT PHOSPHATE MONOBASIC W/ SOD TAB PO SCH ×2 (17:00→20:30)
[2022-04-25] MEDS: DIGOXIN 0.25 MG TAB PO SCH (17:04)
[2022-04-25] MEDS: HEPARIN SODIUM/DEXTROSE 25,000 UNITS/500 ML BAG IV SCH (17:04)
[2022-04-25] MEDS ORDERED: MELATONIN 3 MG TAB PO PRN (19:06)
[2022-04-25] MEDS: oxyCODONE HCL IR 5 MG TAB (IMMEDIATE RELEASE) PO PRN (19:25)
[2022-04-25] MEDS: POTASSIUM CHLORIDE CRTAB 20 MEQ TABCR PO SCH (20:34)
[2022-04-25] MEDS: LANTUS PER UNIT CHARGE SQ SCH (20:42)
[2022-04-25] MEDS ORDERED: HEPARIN SOD 5,000 UNIT/0.5 ML VIAL SQ SCH (21:00)
[2022-04-25 23:36] LABS: Partial Thromboplastin Ratio 1.3; Partial Thromboplastin Time 36.1 Seconds (21.0-31.0)
[2022-04-26] MEDS ORDERED: HEPARIN IV BOLUS 3,000 UNITS in SYRINGE 0 ML IV ONE ×2 (00:30→10:45)
[2022-04-26] MEDS: oxyCODONE HCL IR 5 MG TAB (IMMEDIATE RELEASE) PO PRN ×2 (02:24→21:21)
[2022-04-26] MEDS: PIPERACILLIN/TAZOBACTAM 4.5 GM in DEXTROSE 5% 100 ML IV SCH ×3 (06:10→22:12)
[2022-04-26 06:17] LABS: Basophils # (auto) 0.01 K/uL (0-0.2); Basophils % (auto) 0.2 %; Eosinophils # (auto) 0.03 K/uL (0-0.50); Eosinophils % (auto) 0.5 %; Hematocrit (blood only) 24.6 % (40.1-51.0); Hemoglobin 8.3 g/dl (14.0-18.0); Immature Granulocytes # (auto) 0.07 K/uL (0.00-0.02); Immature Granulocytes % (auto) 1.1 %; Lymphocytes # (auto) 0.34 K/uL (1.2-3.4); Lymphocytes % (auto) 5.2 %; Mean Corpuscular Hemoglobin 31.1 pg (25.0-34.0); Mean Corpuscular Hgb Conc 33.7 g/dL (32.0-36.0); Mean Corpuscular Volume 92.1 fL (80.0-100.0); Mean Platelet Volume 10.5 fL (9.4-12.4); Monocytes # (auto) 0.32 K/uL (0.24-0.82); Monocytes % (auto) 4.9 %; Neutrophils # (auto) 5.71 K/uL (1.4-6.5); Neutrophils % (auto) 88.1 %; Platelet Count 139 K/uL (130-400); RDW Coefficient of Variation 15.4 % (11.5-14.5); RDW Standard Deviation 51.9 fL (36.4-46.3); Red Blood Count 2.67 M/uL (4.63-6.08); White Blood Count 6.48 K/ul (4.8-10.8)
[2022-04-26 06:43] LABS: Albumin Globulin Ratio 1.2 (0.9-2); Albumin Level 3.1 gm/dl (3.4-5.0); BUN Creatinine Ratio 27.5 (10-20); Bilirubin,Total 0.6 mg/dl (0.2-1.0); C Reactive Protein 16.7 mg/dl (0-0.5); Creatinine Clr Calc Pharmacy 65.2 ml/min; Est GFR (African American) 82.9 ml/min; Est GFR (Non-African American) 71.6 ml/min; Globulin 2.6 gm/dl (2.5-4.0); Magnesium 2.1 mg/dl (1.7-2.4); Phosphorus 2.5 mg/dl (2.5-4.9); Potassium 3.4 mmol/L (3.5-5.1); Total Protein 5.7 gm/dl (6.0-8.3)
[2022-04-26] MEDS: ACYCLOVIR 400 MG TAB PO SCH ×2 (08:41→21:08)
[2022-04-26] MEDS: ASPIRIN 81 MG ECTAB PO SCH (08:41)
[2022-04-26] MEDS: ATORVASTATIN 40 MG TAB PO SCH (08:41)
[2022-04-26] MEDS: INSULIN ASPART PER UNIT SC SCH ×4 (08:41→21:27)
[2022-04-26] MEDS: CYANOCOBALAMIN (B-12) 500 MCG TABLET PO SCH (08:41)
[2022-04-26] MEDS: GABAPENTIN 300 MG CAP PO SCH (08:42)
[2022-04-26] MEDS: DOXYCYCLINE HYCLATE 100 MG CAP PO SCH ×2 (08:42→21:09)
[2022-04-26] MEDS: POTASSIUM CHLORIDE CRTAB 20 MEQ TABCR PO SCH ×2 (08:42→21:10)
[2022-04-26] MEDS: FERROUS SULFATE 325 MG TAB PO SCH (08:42)
[2022-04-26] MEDS: POT PHOSPHATE MONOBASIC W/ SOD TAB PO SCH (08:42)
[2022-04-26] MEDS: DOCUSATE SODIUM 100 MG CAP PO SCH ×2 (08:42→21:21)
[2022-04-26] MEDS: ISOSORBIDE MONO EXTENDED REL 30 MG TABCR PO SCH (08:42)
[2022-04-26] MEDS: METOPROLOL TARTRATE 25 MG TAB PO SCH ×3 (08:42→21:22)
[2022-04-26] MEDS: FUROSEMIDE 40 MG/4 ML VIAL IV SCH ×2 (08:42→21:22)
--- NOTE | 2022-04-26 08:54 | Pulmonology Progress Note ---
Date of Service April 26, 2022 Assessment & Plan (1) Respiratory failure with hypoxia: (2) Acute on chronic HFrEF (heart failure with reduced ejection fraction): (3) Paroxysmal atrial fibrillation with RVR: (4) Anemia: (5) NSTEMI (non-ST elevated myocardial infarction): (6) Fever: Plan: Impression: 76-year-old male with a history of coronary disease and diastolic heart failure as well as stage II multiple myeloma currently on Velcade, dexamethasone, and Revlimid followed at [facility] oncology admitted 04/22/2022 with weakness falls and fever with hypoxemic respiratory failure, non-ST elevation myocardial infarction, atrial fibrillation with rapid ventricular response. He has had persistent fevers. Cultures remain negative. White count is normal. Recommendations: 1. Hypoxemic respiratory failure: Multifactorial due to combinations of fluid overload and potential pneumonia. Chest radiograph continues to show interval improvement. Galactomannan pending. Legionella urinary antigen negative. 2. Questionable pneumonia: Currently on antibiotics. Appreciate ID consultation. Indications for bronchoscopy would be persistent fever or worsening oxygenation. Given the fact that the patient's oxygen index is better today and his fever has resolved over the last 36 hours, do not feel that bronchoscopy is warranted currently. We will continue to follow. If he should demonstrate persistent fevers or worsening oxygenation with worsening chest x- ray, will reevaluate. 3. Diuresis per primary service Will continue to follow with you. Feel free to contact us with questions or concerns Admission and Anticipated Discharge Date Admission Date: April 22, 2022 Subjective Patient seen and examined. EMR reviewed. The patient looks and feels better today. His oxygen requirements decreased. His fever curve is of resolved. He is tolerating a diet. No chest pain palpitations. He denies cough or sputum production. Review of Systems Review of Systems: All systems reviewed & are unremarkable except as noted in Subjective Physical Exam Eyes: PERRL, conjunctivae normal, anicteric sclerae Neck: trachea midline, no thyromegaly Respiratory: no labored breathing and not tachypneic Auscultation: + crackles; no wheezes Cardiovascular: RRR, no murmur, no edema Heart Sounds: normal S1 and normal S2 Extremities: normal capillary refill; no edema Gastrointestinal (Abdomen): normal bowel sounds, soft, nontender, no hepatosplenomegaly Skin: no rashes, warm and dry Neurologic: PERRL, EOMI, accommodation nl, no face palsy, no dysarthria Psychiatric: A+Ox3, euthymic affect Results & Data Results & Data ([facility]) Vital Signs (Past 12 Hours) Vital Signs Temp Pulse Pulse Pulse Resp BP Pulse Ox 04/26/22 08:06 36.9 C 73 22 121/49 L 90 04/26/22 02:49 36.8 C 75 18 124/54 L 92 04/26/22 00:06 72 04/25/22 22:20 36.6 C 71 19 121/57 L 91 Laboratory Results 04/26/22 05:36 04/26/22 05:36 Microbiology 04/23/22 10:30 Urine,Indwelling Cath Urine Culture - Final No growth - less than 1,000 colonies/mL. 04/23/22 09:38 Blood Aerobic Blood Culture - Preliminary No growth in Aerobic bottle after 48 hours. 04/23/22 09:38 Blood Anaerobic Blood Culture - Preliminary No growth in Anaerobic bottle after 48 hours. 04/23/22 09:16 Blood Aerobic Blood Culture - Preliminary No growth in Aerobic bottle after 48 hours. 04/23/22 09:16 Blood Anaerobic Blood Culture - Preliminary No growth in Anaerobic bottle after 48 hours. 04/23/22 09:16 Blood Fungal Smear - Final 04/22/22 08:10 Blood Aerobic Blood Culture - Preliminary No growth in Aerobic bottle after 48 hours. 04/22/22 08:10 Blood Anaerobic Blood Culture - Preliminary No growth in Anaerobic bottle after 48 hours. 04/22/22 08:00 Blood Aerobic Blood Culture - Preliminary No growth in Aerobic bottle after 48 hours. 04/22/22 08:00 Blood Anaerobic Blood Culture - Preliminary No growth in Anaerobic bottle after 48 hours. Diagnostic Findings No new imaging PG Care Time/CCT Total # of Minutes Spent Total Time Spent with Patient: Total time spent is greater than 50% in coordination of care (as documented) at patient's floor/unit and/or counseling patient: Coding Level of Care Code 34883 Subseq Hosp Care Lvl 2 Diagnoses Respiratory failure with hypoxia J96.91 Acute on chronic HFrEF (heart failure with reduced ejection fraction) I50.23 Paroxysmal atrial fibrillation with RVR I48.0 Anemia D64.9 NSTEMI (non-ST elevated myocardial infarction) I21.4 Fever R50.9
--- NOTE | 2022-04-26 09:14 | Cardiology Progress Note ---
Date of Service April 26, 2022 Assessment & Plan (1) Respiratory failure with hypoxia: (2) Acute on chronic HFrEF (heart failure with reduced ejection fraction): (3) Paroxysmal atrial fibrillation with RVR: (4) Hypokalemia: (5) NSTEMI (non-ST elevated myocardial infarction): (6) Anemia: (7) Multiple myeloma: Plan: Continue furosemide 40 mg twice daily. Maintain negative fluid balance. Follow daily weight, fluid balance, GFR, and electrolytes. Continue oral potassium chloride and potassium phosphate supplementation as per internal medicine. Amiodarone discontinued in favor of metoprolol plus digoxin. We will transition patient back to [facility] tomorrow if no procedures are pending. Continue empiric broad-spectrum antibiotics. Urinary Legionella antigen negative. Appreciate infectious disease and pulmonary input. Admission and Anticipated Discharge Date Admission Date: April 22, 2022 Subjective Patient seen examined the bedside. Feeling better today. Fluid balance negative nearly 3 L. Oxygen requirements unchanged. Conservative management recommended per pulmonary medicine. Bronchoscopy will not be performed at this time. Telemetry reveals sinus rhythm overnight. Hemoglobin remained stable status posttransfusion. No signs/symptoms of GI/ blood loss. Review of Systems Review of Systems: All systems reviewed & are unremarkable except as noted in Subjective Physical Exam Constitutional: well nourished and + ill appearing; no acute distress Respiratory: no respiratory distress, no labored breathing and no retractions Auscultation: + crackles (Bilateral bases); no rhonchi and no wheezes Cardiovascular: Rate/Rhythm: regular rate and regular rhythm Heart Sounds: normal S1 and normal S2; no murmur Vessels: radial pulses present; no JVD and no carotid bruit Extremities: no edema Gastrointestinal (Abdomen): Inspection/Auscultation: abdomen normal to inspection and normal bowel sounds; abdomen not distended Percussion/Palpation: abdomen soft; abdomen nontender, no guarding and abdomen not rigid Neurologic: CN's II-XI intact bilaterally and moves all extremities; no focal motor deficits Psychiatric: A+Ox3, euthymic affect Results & Data ([facility]) Vital Signs (Past 12 Hours) Vital Signs Temp Pulse Pulse Pulse Resp BP Pulse Ox 04/26/22 08:06 36.9 C 73 22 121/49 L 90 04/26/22 02:49 36.8 C 75 18 124/54 L 92 04/26/22 00:06 72 07/09/22 22:20 36.6 C 71 19 121/57 L 91
[2022-04-26 10:31] LABS: Partial Thromboplastin Ratio 1.3; Partial Thromboplastin Time 35.6 Seconds (21.0-31.0)
--- NOTE | 2022-04-26 10:44 | Hospitalist Progress Note ---
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 Fever/ ?Sepsis- source ?respiratory. Patient presented with fever, hypotension and lactic acidosis. Normal WBC, elevated procal. Blood clx negative, urine clx negative, fungal blood clx pending. Lyme negative, anaplasma pending but already on doxy. - No fever since yesterday. Normal WBC. Procal trending down 0.78->0.4 - Seen by ID- recommendations noted- Vanc discontinued, on zosyn/doxy. ID recommended bronchoscopy and BAL as legionella negative. Pulm following- if continues to have fever or worsening oxygenation, pulm plans to do bronchoscopy on Wednesday. Acute hypoxemic respiratory failure with diffuse pulmonary infiltrates- ?atypical infection vs lisha edema vs hemorrhage. Resp Biofire negative. - S/p HFNC and bipap, now on HFNC. May need bronchoscopy. Wean down oxygen as tolerated - CXR 04/[address] chest- 1. No CTA evidence for pulmonary embolus. 2. Marked bullous emphysematous changes involving the upper lobes bilaterally, right greater than left. 3. The bilateral airspace opacities actually represent preserved lung with groundglass opacity present. This most likely represents mild alveolar edema. 4. No confluent alveolar opacities were bronchograms are seen. 5. Cardiomegaly with extensive coronary artery calcification and atherosclerotic calcification of the aorta. Trop elevation- Per cardio, likely demand ischemia due to hypoxia and resp failure rather than NSTEMI. Echo noted. Cardiology managing Paroxysmal Afib with RVR- converted to NSR. Amio drip has been discontinued. Digoxin has been added. Metoprolol increased to tid. Home eliquis on hold and on heparin drip- change to eliquis tomorrow if no plans for bronch. Further management per cardio Acute on chronic diastolic CHF- continue diuresis, daily weight, continue I and Os measurement. H/o CAD w/ hx of CABG x 4 Tachybrady syndrome s/p PPM Fall with forehead contusion and generalized weakness- CT head/C spine negative for acute abnormality. PT OT eval when stable IDDM 2- A1c 6.7 12/15/21. Continue lantus/novolog per protocol L diabetic heel wound- established with wound care. WOCN eval Multiple myeloma with lytic bone lesions- Follows [facility] oncology, Dr. Garcia. Last treatment of Velcade was 04/21, receiving weekly. Holding revlimid and velcade. Anemia- Hb dropped to 7 from 9 on admission. No overt bleeding noted ?related to his acute illness and underlying MM. S/p 1 U PRBC, Hb improved to 8.6. Continue to monitor. Hb 9->7.2->7->8.6->8.4->8.3 Hypokalemia- repleted. recheck in am Hypophosphatemia- resolved with repletion. Transaminitis- AST/ALT in 80s. will recheck in am. Constipation- s/p relistor 04/24 and had BM. Continue bowel regimen. DVT ppx: Heparin drip. Switch to eliquis tomorrow if no plan for bronch. Dispo- PCU. On HFNC and diuresis for hypoxia. Possible bronch tomorrow Admission and Anticipated Discharge Date Admission Date: April 22, 2022 Subjective He feels better today. no more fever overnight. Normal oral intake. No N/V. Breathing better. No BM- wondering if he can get another dose of relistor. Physical Exam Physical Exam: General: Lying comfortably in bed, not in distress, on HFNC HEENT: EOMI, STEVEN, MMM. Chest: Crackles +, no wheezes, no labored breathing CVS: Regular rate and rhythm, normal heart sounds, no murmur Abdomen: Soft, non tender, not distended, normal bowel sounds Neuro: Awake, alert, oriented, conversing well, non focal Extremities: No cyanosis, clubbing or edema Left heel covered with mepilex Yadav with clear urine Results & Data Results & Data ([facility]) Vital Signs (Past 12 Hours) Vital Signs Temp Pulse Pulse Resp BP Pulse Ox 04/26/22 08:06 36.9 C 73 22 121/49 L 90 04/26/22 02:49 36.8 C 75 18 124/54 L 92 04/26/22 00:06 72 Laboratory Results Short CBC 04/26/22 Range/Units 05:36 WBC 6.48 (4.8-10.8) K/ul Hgb 8.3 L (14.0-18.0) g/dl Hct 24.6 L (40.1-51.0) % Plt Count 139 (130-400) K/uL BMP 04/26/22 05:36 Sodium 138 Potassium 3.4 L Chloride 102 Carbon Dioxide 25 BUN 28 H Creatinine 1.02 Glucose 175 H Calcium 7.0 L Liver Function 04/26/22 Range/Units 05:36 Total Bilirubin 0.6 D (0.2-1.0) mg/dl AST 80 H (13-39) U/L ALT 82 H (7-52) U/L Alkaline Phosphatase 72 (34-104) U/L Albumin 3.1 L (3.4-5.0) gm/dl Medications Administered Current Inpatient Medications Acetaminophen (Acetaminophen 325 Mg Tab) 650 mg PO Q4H PRN PRN Reason: Pain or Fever Stop: 05/22/22 14:56 Last Admin: 04/25/22 05:49 Dose: 650 mg Documented by: Acyclovir (Acyclovir 400 Mg Tab) 400 mg PO BID [facility] Stop: 05/22/22 20:59 Last Admin: 04/26/22 08:41 Dose: 400 mg Documented by: Al Hydrox/Mg Hydrox/Simethicone (Aluminum/Magnesium Susp 30 Ml Udc) 15 ml PO Q4H PRN PRN Reason: Dyspepsia Stop: 05/22/22 14:56 Albuterol (Albut/Ipratrop 3mg/0.5mg Neb 3 Ml Vial) 3 ml NEB QIDR PRN; Protocol PRN Reason: sob/wheezing Stop: 05/22/22 14:56 Last Admin: 04/22/22 17:20 Dose: 3 ml Documented by: Aspirin (Aspirin 81 Mg Ectab) 81 mg PO DAILY [facility] Stop: 05/23/22 08:59 Last Admin: 04/26/22 08:41 Dose: 81 mg Documented by: Atorvastatin Calcium (Atorvastatin 40 Mg Tab) 40 mg PO DAILY [facility] Stop: 05/23/22 08:59 Last Admin: 04/26/22 08:41 Dose: 40 mg Documented by: Cyanocobalamin (Cyanocobalamin (B-12) 500 Mcg Tablet) 1,000 mcg PO DAILY [facility] Stop: 05/23/22 08:59 Last Admin: 04/26/22 08:41 Dose: 1,000 mcg Documented by: Dextrose (Dextrose 50% 50 Ml Syringe) 25 - 50 ml IV UD PRN; Protocol PRN Reason: Hypoglycemia Protocol Stop: 05/22/22 14:56 Last Admin: 04/23/22 06:47 Dose: 25 ml Documented by: Digoxin (Digoxin 0.25 Mg Tab) 0.25 mg PO DAILY@1600 [facility] Stop: 05/23/22 15:59 Last Admin: 04/25/22 17:04 Dose: 0.25 mg Documented by: Docusate Sodium (Docusate Sodium 100 Mg Cap) 100 mg PO BID [facility] Stop: 05/22/22 20:59 Last Admin: 04/26/22 08:42 Dose: 100 mg Documented by: Doxycycline Hyclate (Doxycycline Hyclate 100 Mg Cap) 100 mg PO BID [facility] Stop: 04/27/22 23:59 Last Admin: 04/26/22 08:42 Dose: 100 mg Documented by: Ferrous Sulfate (Ferrous Sulfate 325 Mg Tab) 325 mg PO DAILY [facility] Stop: 05/23/22 08:59 Last Admin: 04/26/22 08:42 Dose: 325 mg Documented by: Furosemide (Furosemide 40 Mg/4 Ml Vial) 40 mg IV BID [facility] Stop: 05/23/22 08:59 Last Admin: 04/26/22 08:42 Dose: 40 mg Documented by: Gabapentin (Gabapentin 300 Mg Cap) 300 mg PO DAILY [facility] Stop: 05/23/22 08:59 Last Admin: 04/26/22 08:42 Dose: 300 mg Documented by: Glucagon (Glucagon For Inj 1 Mg Vial) 1 mg SQ UD PRN; Protocol PRN Reason: Hypoglycemia Protocol Stop: 05/22/22 14:56 Glucose (Glucose 10 Tabs/Tube) 4 - 8 tabs PO UD PRN; Protocol PRN Reason: Hypoglycemia Protocol Stop: 05/22/22 14:56 Glucose (Glucose 40% Gel 15 Gm Tube) 15 - 30 gm PO UD PRN; Protocol PRN Reason: Hypoglycemia Protocol Stop: 05/22/22 14:56 Promethazine HCl 12.5 mg/ (Sodium Chloride) 50.5 mls @ 202 mls/hr IV Q6H PRN PRN Reason: Nausea And Vomiting Stop: 05/22/22 14:56 Piperacillin Sod/Tazobactam (Sod 4.5 gm/ Dextrose) 120 mls @ 30 mls/hr IV Q8H [facility]; Protocol Stop: 04/27/22 23:59 Last Infusion: 04/26/22 10:08 Dose: Infused Documented by: Heparin Sodium/Dextrose (Heparin Sodium/Dextrose) 25,000 units in 500 mls @ 21 mls/hr IV .[id number] [facility]; Protocol Stop: 05/25/22 15:29 Last Titration: 04/26/22 10:33 Dose: 1,200 units/hr, 24 mls/hr Documented by: Insulin Aspart (Insulin Aspart Per Unit) 0 units SC ACHS [facility] Stop: 05/22/22 16:29 Last Admin: 04/26/22 08:41 Dose: 11 units Documented by: Insulin Glargine (Lantus Per Unit Charge) 30 units SQ QPM [facility]; Protocol Stop: 05/25/22 20:59 Last Admin: 04/25/22 20:42 Dose: 30 units Documented by: Isosorbide Mononitrate (Isosorbide [place] Extended Rel 30 Mg Tabcr) 30 mg PO DAILY [facility] Stop: 05/23/22 08:59 Last Admin: 04/26/22 08:42 Dose: 30 mg Documented by: Magnesium Hydroxide (Magnesium Hydroxide Susp 30 Ml Udc) 30 ml PO Q12H PRN PRN Reason: Constipation Stop: 05/22/22 14:56 Last Admin: 04/24/22 18:35 Dose: 30 ml Documented by: Melatonin (Melatonin 3 Mg Tab) 3 mg PO HS PRN PRN Reason: Sleep Stop: 05/25/22 19:05 Last Admin: 04/25/22 20:30 Dose: 3 mg Documented by: Metoprolol Tartrate (Metoprolol Tartrate 25 Mg Tab) 25 mg PO TID [facility] Stop: 05/24/22 13:59 Last Admin: 04/26/22 08:42 Dose: 25 mg Documented by: Miscellaneous (Carbohydrates For Hypoglycemia ) 15 - 30 gm PO UD PRN PRN Reason: Hypoglycemia Protocol Stop: 05/22/22 14:56 Last Admin: 04/23/22 05:58 Dose: 15 gm Documented by: Oxycodone HCl (Oxycodone Hcl Ir 5 Mg Tab (Immediate Release)) 5 mg PO Q6H PRN PRN Reason: Pain Stop: 05/07/22 10:01 Last Admin: 04/26/22 02:24 Dose: 5 mg Documented by: Polyethylene Glycol (Polyethylene (Miralax) 17 Gm Pack) 17 gm PO DAILY PRN PRN Reason: Constipation Stop: 05/22/22 14:56 Last Admin: 04/25/22 09:49 Dose: 17 gm Documented by: Potassium Chloride (Potassium Chloride Crtab 20 Meq Tabcr) 20 meq PO BID [facility] Stop: 05/25/22 20:59 Last Admin: 04/26/22 08:42 Dose: 20 meq Documented by: Potassium Phosphate (Pot Phosphate Monobasic W/ Sod Tab) 2 tab PO QID [facility] Stop: 04/28/22 16:59 Last Admin: 04/26/22 08:42 Dose: 2 tab Documented by: (1) CHF (congestive heart failure) Heart failure chronicity: unspecified Heart failure type: unspecified Qualified Code(s): I50.9 - Heart failure, unspecified
[2022-04-26] MEDS: HEPARIN SODIUM/DEXTROSE 25,000 UNITS/500 ML BAG IV SCH (15:52)
[2022-04-26] MEDS: DIGOXIN 0.25 MG TAB PO SCH (15:53)
[2022-04-26 17:01] LABS: Partial Thromboplastin Ratio 1.4; Partial Thromboplastin Time 37.5 Seconds (21.0-31.0)
[2022-04-26] MEDS ORDERED: HEPARIN SOD (PORCINE) 1000 UNIT/ML IV ONE (18:05)
[2022-04-26] MEDS: DOCUSATE SODIUM/SENNA 50/8.6MG TAB PO SCH (21:08)
[2022-04-26] MEDS: MELATONIN 3 MG TAB PO PRN (21:21)
[2022-04-26] MEDS: LANTUS PER UNIT CHARGE SQ SCH (21:27)
[2022-04-27 01:18] LABS: Partial Thromboplastin Ratio 1.8; Partial Thromboplastin Time 48.4 Seconds (21.0-31.0)
[2022-04-27] MEDS: oxyCODONE HCL IR 5 MG TAB (IMMEDIATE RELEASE) PO PRN ×2 (03:21→19:55)
[2022-04-27] MEDS: PIPERACILLIN/TAZOBACTAM 4.5 GM in DEXTROSE 5% 100 ML IV SCH ×3 (05:59→21:54)
[2022-04-27 06:38] LABS: Hematocrit (blood only) 25.9 % (40.1-51.0); Hemoglobin 8.5 g/dl (14.0-18.0); Mean Corpuscular Hemoglobin 31.1 pg (25.0-34.0); Mean Corpuscular Hgb Conc 32.8 g/dL (32.0-36.0); Mean Corpuscular Volume 94.9 fL (80.0-100.0); Mean Platelet Volume 10.5 fL (9.4-12.4); Platelet Count 145 K/uL (130-400); RDW Coefficient of Variation 14.9 % (11.5-14.5); RDW Standard Deviation 51.8 fL (36.4-46.3); Red Blood Count 2.73 M/uL (4.63-6.08); White Blood Count 5.26 K/ul (4.8-10.8)
[2022-04-27 06:59] LABS: Albumin Globulin Ratio 1.2 (0.9-2); Albumin Level 3.2 gm/dl (3.4-5.0); BUN Creatinine Ratio 29.5 (10-20); Bilirubin,Total 0.8 mg/dl (0.2-1.0); Calcium 6.8 mg/dl (8.5-10.1); Creatinine Clr Calc Pharmacy 75.9 ml/min; Est GFR (African American) 97.4 ml/min; Globulin 2.6 gm/dl (2.5-4.0); Magnesium 1.9 mg/dl (1.7-2.4); Phosphorus 1.9 mg/dl (2.5-4.9); Potassium 3.4 mmol/L (3.5-5.1); Total Protein 5.8 gm/dl (6.0-8.3)
[2022-04-27] MEDS: INSULIN ASPART PER UNIT SC SCH ×4 (08:33→20:57)
[2022-04-27] MEDS: METOPROLOL TARTRATE 25 MG TAB PO SCH ×3 (08:34→19:58)
[2022-04-27] MEDS: ACYCLOVIR 400 MG TAB PO SCH ×2 (08:34→20:00)
[2022-04-27] MEDS: DOXYCYCLINE HYCLATE 100 MG CAP PO SCH ×2 (08:34→19:59)
[2022-04-27] MEDS: POTASSIUM CHLORIDE CRTAB 20 MEQ TABCR PO SCH ×2 (08:34→19:58)
[2022-04-27] MEDS: FERROUS SULFATE 325 MG TAB PO SCH (08:35)
[2022-04-27] MEDS: DOCUSATE SODIUM/SENNA 50/8.6MG TAB PO SCH ×2 (08:35→19:59)
[2022-04-27] MEDS: CYANOCOBALAMIN (B-12) 500 MCG TABLET PO SCH (08:35)
[2022-04-27] MEDS: ISOSORBIDE MONO EXTENDED REL 30 MG TABCR PO SCH (08:36)
[2022-04-27] MEDS: ASPIRIN 81 MG ECTAB PO SCH (08:36)
[2022-04-27] MEDS: GABAPENTIN 300 MG CAP PO SCH (08:37)
[2022-04-27] MEDS: POT PHOSPHATE MONOBASIC W/ SOD TAB PO SCH ×4 (08:37→19:57)
[2022-04-27] MEDS: POLYETHYLENE (MIRALAX) 17 GM PACK PO SCH (08:37)
[2022-04-27] MEDS: DOCUSATE SODIUM 100 MG CAP PO SCH ×2 (08:41→20:00)
[2022-04-27] MEDS: FUROSEMIDE 40 MG/4 ML VIAL IV SCH ×2 (08:41→20:09)
--- NOTE | 2022-04-27 09:02 | Pulmonology Progress Note ---
Date of Service April 27, 2022 Assessment & Plan (1) Respiratory failure with hypoxia: (2) Acute on chronic HFrEF (heart failure with reduced ejection fraction): (3) Paroxysmal atrial fibrillation with RVR: (4) Anemia: (5) NSTEMI (non-ST elevated myocardial infarction): (6) Fever: Plan: Impression: 76-year-old male with a history of coronary disease and diastolic heart failure as well as stage II multiple myeloma currently on Velcade, dexamethasone, and Revlimid followed at [facility] oncology admitted 04/22/2022 with weakness falls and fever with hypoxemic respiratory failure, non-ST elevation myocardial infarction, atrial fibrillation with rapid ventricular response. His fevers have resolved. Cultures remain negative. White count is normal. Recommendations: 1. Hypoxemic respiratory failure: Multifactorial due to combinations of COPD, possible interstitial lung disease, fluid overload and potential pneumonia. Chest radiograph has shown interval improvement. Galactomannan pending. Legionella urinary antigen negative. Continue to wean oxygen as tolerated. Out of bed to chair is much as possible. We will start incentive spirometry. Target oxygen saturations of 90% or greater. May need assessment for supplemental oxygen prior to discharge 2. Questionable pneumonia: Currently on antibiotics. Appreciate ID consultation. No indication for bronchoscopy currently. Would complete course of antibiotics as dictated by infectious disease territory sales consultant. Follow-up imaging in the outpatient setting with his outpatient certified art therapist, Dr. Martinez 3. Diuresis per primary service Will continue to follow with you. Feel free to contact us with questions or concerns Admission and Anticipated Discharge Date Admission Date: April 22, 2022 Subjective Patient seen and examined. EMR reviewed. He is slowly improving. He is afebrile. He is not coughing or expectorating phlegm. No chest pain or palpitations. He reportedly had a pause last night on telemetry. He is not be en out of bed. Review of Systems Review of Systems: All systems reviewed & are unremarkable except as noted in Subjective Physical Exam Eyes: PERRL, conjunctivae normal, anicteric sclerae Neck: trachea midline, no thyromegaly Respiratory: no labored breathing and not tachypneic Auscultation: + crackles; no wheezes Cardiovascular: RRR, no murmur, no edema Heart Sounds: normal S1 and normal S2 Extremities: normal capillary refill; no edema Gastrointestinal (Abdomen): normal bowel sounds, soft, nontender, no hepatosplenomegaly Skin: no rashes, warm and dry Neurologic: PERRL, EOMI, accommodation nl, no face palsy, no dysarthria Psychiatric: A+Ox3, euthymic affect Results & Data Results & Data ([facility]) Vital Signs (Past 12 Hours) Vital Signs Temp Pulse Pulse Pulse Resp BP Pulse Ox 04/27/22 07:25 36.8 C 69 16 121/52 L 96 04/27/22 03:03 36.8 C 68 20 117/57 L 93 04/26/22 23:03 69 04/26/22 22:20 37.2 C 71 20 126/52 L 93 04/26/22 21:12 72 127/51 L Laboratory Results 04/27/22 06:14 04/27/22 06:14 Diagnostic Findings No new imaging PG Care Time/CCT Total # of Minutes Spent Total Time Spent with Patient: Total time spent is greater than 50% in coordination of care (as documented) at patient's floor/unit and/or counseling patient: Coding Level of Care Code 75293 Subseq Hosp Care Lvl 2 Diagnoses Respiratory failure with hypoxia J96.91 Acute on chronic HFrEF (heart failure with reduced ejection fraction) I50.23 Paroxysmal atrial fibrillation with RVR I48.0 Anemia D64.9 NSTEMI (non-ST elevated myocardial infarction) I21.4 Fever R50.9
[2022-04-27] MEDS: HEPARIN SODIUM/DEXTROSE 25,000 UNITS/500 ML BAG IV SCH (09:47)
--- NOTE | 2022-04-27 10:07 | Hospitalist Progress Note ---
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 Fever/ ?Sepsis- source ?respiratory. Patient presented with fever, hypotension and lactic acidosis. Normal WBC, elevated procal. Blood clx negative, urine clx negative, fungal blood clx pending. Lyme negative, anaplasma pending but already on doxy. - No fever for past 48 hours. Normal WBC. Procal trending down 0.78->0.4 - Seen by ID- recommendations noted- Vanc discontinued, Continue zosyn/doxy. ID recommended bronchoscopy and BAL as legionella negative. Discussed with pulm today- since no more fever and patient clinically improving, no plans for bronchoscopy as of now. Acute hypoxemic respiratory failure with diffuse pulmonary infiltrates- ?atypical infection vs pulm edema. Resp Biofire negative. - S/p HFNC and bipap, now on HFNC. No plans for bronchoscopy currently. - CXR 04/25 improved from admission - Continue supplemental oxygen, wean down as tolerated. Continue ABx and diuretics. CT chest- 1. No CTA evidence for pulmonary embolus. 2. Marked bullous emphysematous changes involving the upper lobes bilaterally, right greater than left. 3. The bilateral airspace opacities actually represent preserved lung with groundglass opacity present. This most likely represents mild alveolar edema. 4. No confluent alveolar opacities were bronchograms are seen. 5. Cardiomegaly with extensive coronary artery calcification and atherosclerotic calcification of the aorta. Trop elevation- Per cardio, likely demand ischemia due to hypoxia and resp failure rather than NSTEMI. Echo noted. Cardiology managing Paroxysmal Afib with RVR- converted to NSR. Amio drip has been discontinued. Digoxin has been added. Metoprolol increased to tid. Home eliquis on hold and on heparin drip- change to eliquis if no definitive plans for bronch. Further management per cardio Acute on chronic diastolic CHF- continue diuresis, daily weight, continue I and Os measurement. H/o CAD w/ hx of CABG x 4 Tachybrady syndrome s/p PPM Fall with forehead contusion and generalized weakness- CT head/C spine negative for acute abnormality. PT OT eval when stable IDDM 2- A1c 6.7 12/15/21. Continue lantus/novolog per protocol L diabetic heel wound- established with wound care. WOCN eval Multiple myeloma with lytic bone lesions- Follows [facility] oncology, Dr. Garcia. Last treatment of Velcade was 04/21, receiving weekly. Holding revlimid and velcade. Anemia- Hb dropped to 7 from 9 on admission. No overt bleeding noted ?related to his acute illness and underlying MM. S/p 1 U PRBC, Hb improved to 8.6. Continue to monitor. Hb 9->7.2->7->8.6->8.4->8.3->8.5 Hypokalemia- repleted. recheck in am Hypophosphatemia- repleting, recheck in am Transaminitis- AST/ALT in 80/82-->117/156. Will hold lipitor and tylenol. Recheck in am Constipation- s/p relistor 04/24 and had BM. Continue bowel regimen. Might need another dose if constipation continues to be an issue. DVT ppx: Heparin drip. Switch to eliquis if no plan for bronch at all Dispo- PCU. Still requiring significant supplemental oxygen, wean down as tolerated. Will likely require supplemental oxygen at discharge- will need 2 step O2 eval closer to discharge. Admission and Anticipated Discharge Date Admission Date: April 22, 2022 Subjective No new issues. Still has some chest heaviness intermittently. SOB about the same. No more fever for the past 2 days. Oral intake okay. No N/V. No BM for past 3 dayss but passing gas. Physical Exam Physical Exam: General: Lying comfortably in bed, not in distress, on HFNC HEENT: EOMI, STEVEN, MMM. Chest: Crackles +, no wheezes, no labored breathing CVS: Regular rate and rhythm, normal heart sounds, no murmur Abdomen: Soft, non tender, not distended, normal bowel sounds Neuro: Awake, alert, oriented, conversing well, non focal Extremities: No cyanosis, clubbing or edema Left heel covered with mepilex Yadav with clear urine Results & Data Results & Data ([facility]) Vital Signs (Past 12 Hours) Vital Signs Temp Pulse Pulse Pulse Resp BP Pulse Ox 04/27/22 07:25 36.8 C 69 16 121/52 L 96 04/27/22 03:03 36.8 C 68 20 117/57 L 93 04/26/22 23:03 69 04/26/22 22:20 37.2 C 71 20 126/52 L 93 Laboratory Results Short CBC 04/27/22 Range/Units 06:14 WBC 5.26 (4.8-10.8) K/ul Hgb 8.5 L (14.0-18.0) g/dl Hct 25.9 L (40.1-51.0) % Plt Count 145 (130-400) K/uL BMP 04/27/22 06:14 Sodium 135 L Potassium 3.4 L Chloride 100 Carbon Dioxide 25 BUN 26 H Creatinine 0.88 Glucose 123 H Calcium 6.8 L Liver Function 04/27/22 Range/Units 06:14 Total Bilirubin 0.8 (0.2-1.0) mg/dl AST 117 H (13-39) U/L ALT 156 H (7-52) U/L Alkaline Phosphatase 77 (34-104) U/L Albumin 3.2 L (3.4-5.0) gm/dl Medications Administered Current Inpatient Medications Acetaminophen (Acetaminophen 325 Mg Tab) 650 mg PO Q4H PRN PRN Reason: Pain or Fever Stop: 05/22/22 14:56 Last Admin: 04/25/22 05:49 Dose: 650 mg Documented by: Acyclovir (Acyclovir 400 Mg Tab) 400 mg PO BID RIVERA Stop: 05/22/22 20:59 Last Admin: 04/27/22 08:34 Dose: 400 mg Documented by: Al Hydrox/Mg Hydrox/Simethicone (Aluminum/Magnesium Susp 30 Ml Udc) 15 ml PO Q4H PRN PRN Reason: Dyspepsia Stop: 05/22/22 14:56 Albuterol (Albut/Ipratrop 3mg/0.5mg Neb 3 Ml Vial) 3 ml NEB QIDR PRN; Protocol PRN Reason: sob/wheezing Stop: 05/22/22 14:56 Last Admin: 04/22/22 17:20 Dose: 3 ml Documented by: Aspirin (Aspirin 81 Mg Ectab) 81 mg PO DAILY RIVERA Stop: 05/23/22 08:59 Last Admin: 04/27/22 08:36 Dose: 81 mg Documented by: Atorvastatin Calcium (Atorvastatin 40 Mg Tab) 40 mg PO DAILY RIVERA Stop: 05/23/22 08:59 Last Admin: 04/26/22 08:41 Dose: 40 mg Documented by: Cyanocobalamin (Cyanocobalamin (B-12) 500 Mcg Tablet) 1,000 mcg PO DAILY RIVERA Stop: 05/23/22 08:59 Last Admin: 04/27/22 08:35 Dose: 1,000 mcg Documented by: Dextrose (Dextrose 50% 50 Ml Syringe) 25 - 50 ml IV UD PRN; Protocol PRN Reason: Hypoglycemia Protocol Stop: 05/22/22 14:56 Last Admin: 04/23/22 06:47 Dose: 25 ml Documented by: Digoxin (Digoxin 0.25 Mg Tab) 0.25 mg PO DAILY@1600 [facility] Stop: 05/23/22 15:59 Last Admin: 04/26/22 15:53 Dose: 0.25 mg Documented by: Docusate Sodium (Docusate Sodium 100 Mg Cap) 100 mg PO BID RIVERA Stop: 05/22/22 20:59 Last Admin: 04/27/22 08:41 Dose: 100 mg Documented by: Doxycycline Hyclate (Doxycycline Hyclate 100 Mg Cap) 100 mg PO BID RIVERA Stop: 04/27/22 23:59 Last Admin: 04/27/22 08:34 Dose: 100 mg Documented by: Ferrous Sulfate (Ferrous Sulfate 325 Mg Tab) 325 mg PO DAILY RIVERA Stop: 05/23/22 08:59 Last Admin: 04/27/22 08:35 Dose: 325 mg Documented by: Furosemide (Furosemide 40 Mg/4 Ml Vial) 40 mg IV BID RIVERA Stop: 05/23/22 08:59 Last Admin: 04/27/22 08:41 Dose: 40 mg Documented by: Gabapentin (Gabapentin 300 Mg Cap) 300 mg PO DAILY RIVERA Stop: 05/23/22 08:59 Last Admin: 04/27/22 08:37 Dose: 300 mg Documented by: Glucagon (Glucagon For Inj 1 Mg Vial) 1 mg SQ UD PRN; Protocol PRN Reason: Hypoglycemia Protocol Stop: 05/22/22 14:56 Glucose (Glucose 10 Tabs/Tube) 4 - 8 tabs PO UD PRN; Protocol PRN Reason: Hypoglycemia Protocol Stop: 05/22/22 14:56 Glucose (Glucose 40% Gel 15 Gm Tube) 15 - 30 gm PO UD PRN; Protocol PRN Reason: Hypoglycemia Protocol Stop: 05/22/22 14:56 Promethazine HCl 12.5 mg/ (Sodium Chloride) 50.5 mls @ 202 mls/hr IV Q6H PRN PRN Reason: Nausea And Vomiting Stop: 05/22/22 14:56 Piperacillin Sod/Tazobactam (Sod 4.5 gm/ Dextrose) 120 mls @ 30 mls/hr IV Q8H [facility]; Protocol Stop: 04/27/22 23:59 Last Admin: 04/27/22 05:59 Dose: 30 mls/hr Documented by: Heparin Sodium/Dextrose (Heparin Sodium/Dextrose) 25,000 units in 500 mls @ 27 mls/hr IV .[id number] [facility]; Protocol Stop: 05/25/22 15:29 Last Admin: 04/27/22 09:47 Dose: 1,350 units/hr, 27 mls/hr Documented by: Insulin Aspart (Insulin Aspart Per Unit) 0 units SC ACHS RIVERA Stop: 05/22/22 16:29 Last Admin: 04/27/22 08:33 Dose: 8 units Documented by: Insulin Glargine (Lantus Per Unit Charge) 30 units SQ QPM RIVERA Stop: 05/25/22 20:59 Last Admin: 04/26/22 21:27 Dose: 30 units Documented by: Isosorbide Mononitrate (Isosorbide [place] Extended Rel 30 Mg Tabcr) 30 mg PO DAILY RIVERA Stop: 05/23/22 08:59 Last Admin: 04/27/22 08:36 Dose: 30 mg Documented by: Magnesium Hydroxide (Magnesium Hydroxide Susp 30 Ml Udc) 30 ml PO Q12H PRN PRN Reason: Constipation Stop: 05/22/22 14:56 Last Admin: 04/24/22 18:35 Dose: 30 ml Documented by: Melatonin (Melatonin 3 Mg Tab) 9 mg PO HS PRN PRN Reason: Sleep Stop: 05/25/22 19:05 Last Admin: 04/26/22 21:21 Dose: 9 mg Documented by: Metoprolol Tartrate (Metoprolol Tartrate 25 Mg Tab) 25 mg PO TID RIVERA Stop: 05/24/22 13:59 Last Admin: 04/27/22 08:34 Dose: 25 mg Documented by: Miscellaneous (Carbohydrates For Hypoglycemia ) 15 - 30 gm PO UD PRN PRN Reason: Hypoglycemia Protocol Stop: 05/22/22 14:56 Last Admin: 04/23/22 05:58 Dose: 15 gm Documented by: Oxycodone HCl (Oxycodone Hcl Ir 5 Mg Tab (Immediate Release)) 5 mg PO Q6H PRN PRN Reason: Pain Stop: 05/07/22 10:01 Last Admin: 04/27/22 03:21 Dose: 5 mg Documented by: Polyethylene Glycol (Polyethylene (Miralax) 17 Gm Pack) 17 gm PO DAILY RIVERA Stop: 05/27/22 08:59 Last Admin: 04/27/22 08:37 Dose: 17 gm Documented by: Potassium Chloride (Potassium Chloride Crtab 20 Meq Tabcr) 40 meq PO BID RIVERA Stop: 05/27/22 08:59 Last Admin: 04/27/22 08:34 Dose: 40 meq Documented by: Potassium Phosphate (Pot Phosphate Monobasic W/ Sod Tab) 2 tab PO QID RIVERA Stop: 04/30/22 08:59 Last Admin: 04/27/22 08:37 Dose: 2 tab Documented by: Senna/Docusate Sodium (Docusate Sodium/Senna 50/8.6mg Tab) 1 tab PO BID RIVERA Stop: 05/26/22 20:59 Last Admin: 04/27/22 08:35 Dose: 1 tab Documented by: (1) CHF (congestive heart failure) Heart failure chronicity: unspecified Heart failure type: unspecified Qualified Code(s): I50.9 - Heart failure, unspecified
--- NOTE | 2022-04-27 10:38 | Cardiology Progress Note ---
Date of Service April 27, 2022 Assessment & Plan (1) Respiratory failure with hypoxia: (2) Acute on chronic HFrEF (heart failure with reduced ejection fraction): (3) Paroxysmal atrial fibrillation with RVR: (4) Hypokalemia: (5) NSTEMI (non-ST elevated myocardial infarction): (6) Anemia: (7) Multiple myeloma: Plan: Continue furosemide 40 mg twice daily. Maintain negative fluid balance. Follow daily weight, fluid balance, GFR, and electrolytes. Supplement potassium and phosphorus as per internal medicine. Amiodarone discontinued in favor of metoprolol plus digoxin. Discontinue heparin this afternoon and restart Eliquis this evening. Assess digoxin level. Continue empiric broad-spectrum antibiotics. Urinary Legionella antigen negative. Appreciate infectious disease and pulmonary input. Admission and Anticipated Discharge Date Admission Date: April 22, 2022 Subjective Patient seen examined the bedside. Feeling well from a cardiovascular perspective. Fluid balance -2.6 L. Stable renal function. Oxygen requirements unchanged. No recurrent fevers. Review of Systems Review of Systems: All systems reviewed & are unremarkable except as noted in Subjective Physical Exam Constitutional: well nourished and + ill appearing; no acute distress Respiratory: no respiratory distress, no labored breathing and no retractions Auscultation: + crackles (Bilateral bases); no rhonchi and no wheezes Cardiovascular: Rate/Rhythm: regular rate and regular rhythm Heart Sounds: normal S1 and normal S2; no murmur Vessels: radial pulses present; no JVD and no carotid bruit Extremities: no edema Gastrointestinal (Abdomen): Inspection/Auscultation: abdomen normal to inspection and normal bowel sounds; abdomen not distended Percussion/Palpation: abdomen soft; abdomen nontender, no guarding and abdomen not rigid Neurologic: CN's II-XI intact bilaterally and moves all extremities; no focal motor deficits Psychiatric: A+Ox3, euthymic affect Results & Data ([facility]) Vital Signs (Past 12 Hours) Vital Signs Temp Pulse Pulse Resp BP Pulse Ox 04/27/22 07:25 36.8 C 69 16 121/52 L 96 04/27/22 03:03 36.8 C 68 20 117/57 L 93 04/26/22 23:03 69
[2022-04-27] MEDS: DIGOXIN 0.25 MG TAB PO SCH (16:06)
[2022-04-27 19:15] LABS: Fungitell (1-3)-B-D-Glucan 56 pg/mL
[2022-04-27] MEDS: APIXABAN 5 MG TABLET PO SCH (19:56)
[2022-04-27] MEDS: LANTUS PER UNIT CHARGE SQ SCH (20:57)
[2022-04-27] MEDS: MoRPHine SULFATE IR 15 MG TAB (IMMEDIATE RELEASE) PO PRN (21:54)
[2022-04-28] MEDS: MoRPHine SULFATE IR 15 MG TAB (IMMEDIATE RELEASE) PO PRN ×2 (03:47→20:44)
[2022-04-28 06:33] LABS: Hematocrit (blood only) 26.4 % (40.1-51.0); Hemoglobin 8.6 g/dl (14.0-18.0); Mean Corpuscular Hemoglobin 30.2 pg (25.0-34.0); Mean Corpuscular Hgb Conc 32.6 g/dL (32.0-36.0); Mean Corpuscular Volume 92.6 fL (80.0-100.0); Mean Platelet Volume 10.4 fL (9.4-12.4); Platelet Count 143 K/uL (130-400); RDW Coefficient of Variation 14.9 % (11.5-14.5); RDW Standard Deviation 50.8 fL (36.4-46.3); Red Blood Count 2.85 M/uL (4.63-6.08); White Blood Count 5.37 K/ul (4.8-10.8)
[2022-04-28 06:49] LABS: Albumin Globulin Ratio 1.2 (0.9-2); Albumin Level 3.2 gm/dl (3.4-5.0); BUN Creatinine Ratio 25.3 (10-20); Bilirubin,Total 0.8 mg/dl (0.2-1.0); Calcium 6.7 mg/dl (8.5-10.1); Creatinine Clr Calc Pharmacy 67.2 ml/min; Est GFR (Non-African American) 74.2 ml/min; Globulin 2.7 gm/dl (2.5-4.0); Magnesium 1.9 mg/dl (1.7-2.4); Phosphorus 2.5 mg/dl (2.5-4.9); Potassium 3.8 mmol/L (3.5-5.1); Total Protein 5.9 gm/dl (6.0-8.3)
[2022-04-28] MEDS: INSULIN ASPART PER UNIT SC SCH ×4 (08:31→20:38)
[2022-04-28] MEDS: PIPERACILLIN/TAZOBACTAM 3.375 GM in DEXTROSE 5% 100 ML IV SCH ×2 (08:32→17:00)
[2022-04-28] MEDS: GABAPENTIN 300 MG CAP PO SCH (08:32)
[2022-04-28] MEDS: ACYCLOVIR 400 MG TAB PO SCH ×2 (08:33→20:47)
[2022-04-28] MEDS: FERROUS SULFATE 325 MG TAB PO SCH (08:33)
[2022-04-28] MEDS: ASPIRIN 81 MG ECTAB PO SCH (08:33)
[2022-04-28] MEDS: DOCUSATE SODIUM/SENNA 50/8.6MG TAB PO SCH ×2 (08:33→20:47)
[2022-04-28] MEDS: CYANOCOBALAMIN (B-12) 500 MCG TABLET PO SCH (08:33)
[2022-04-28] MEDS: ISOSORBIDE MONO EXTENDED REL 30 MG TABCR PO SCH (08:34)
[2022-04-28] MEDS: METOPROLOL TARTRATE 25 MG TAB PO SCH ×3 (08:34→20:05)
[2022-04-28] MEDS: POTASSIUM CHLORIDE CRTAB 20 MEQ TABCR PO SCH ×2 (08:34→20:49)
[2022-04-28] MEDS: POT PHOSPHATE MONOBASIC W/ SOD TAB PO SCH ×4 (08:35→20:46)
[2022-04-28] MEDS: APIXABAN 5 MG TABLET PO SCH ×2 (08:35→20:47)
[2022-04-28] MEDS: POLYETHYLENE (MIRALAX) 17 GM PACK PO SCH (08:35)
[2022-04-28] MEDS: DOCUSATE SODIUM 100 MG CAP PO SCH ×2 (08:39→20:48)
[2022-04-28] MEDS: FUROSEMIDE 40 MG/4 ML VIAL IV SCH ×2 (08:39→20:50)
--- NOTE | 2022-04-28 09:18 | Pulmonology Progress Note ---
Date of Service April 28, 2022 Assessment & Plan (1) Respiratory failure with hypoxia: (2) Acute on chronic HFrEF (heart failure with reduced ejection fraction): (3) Paroxysmal atrial fibrillation with RVR: (4) Anemia: (5) NSTEMI (non-ST elevated myocardial infarction): (6) Fever: Plan: Impression: 76-year-old male with a history of coronary disease and diastolic heart failure as well as stage II multiple myeloma currently on Velcade, dexamethasone, and Revlimid followed at [facility] oncology admitted 04/22/2022 with weakness falls and fever with hypoxemic respiratory failure, non-ST elevation myocardial infarction, atrial fibrillation with rapid ventricular response. His fevers have resolved. Cultures remain negative. White count is normal. Recommendations: 1. Hypoxemic respiratory failure: Multifactorial due to combinations of COPD, possible interstitial lung disease, fluid overload and potential pneumonia. Continueincentive spirometry. Target oxygen saturations of 90% or greater. May need assessment for supplemental oxygen prior to discharge 2. Questionable pneumonia: Currently on antibiotics. Appreciate ID consultation. No indication for bronchoscopy currently. Would complete course of antibiotics as dictated by infectious disease career consultant. Follow-up imaging in the outpatient setting with his outpatient [employer], Dr. Martinez 3. Diuresis per primary service Patient appears to be on an acceptable trajectory for potential discharge home once oxygen saturations are acceptable. Pulmonary will sign off at this point time. Feel free to contact us if we can be of additional assistance Admission and Anticipated Discharge Date Admission Date: April 22, 2022 Subjective Patient seen and examined. EMR reviewed. He is improving. Has been out of bed to chair. His oxygen requirement is decreasing. He overall feels improved Review of Systems Review of Systems: All systems reviewed & are unremarkable except as noted in Subjective Physical Exam Eyes: PERRL, conjunctivae normal, anicteric sclerae Neck: trachea midline, no thyromegaly Respiratory: no labored breathing and not tachypneic Auscultation: + crackles; no wheezes Cardiovascular: RRR, no murmur, no edema Heart Sounds: normal S1 and normal S2 Extremities: normal capillary refill; no edema Gastrointestinal (Abdomen): normal bowel sounds, soft, nontender, no hepatosplenomegaly Skin: no rashes, warm and dry Neurologic: PERRL, EOMI, accommodation nl, no face palsy, no dysarthria Psychiatric: A+Ox3, euthymic affect Results & Data Results & Data ([facility]) Vital Signs (Past 12 Hours) Vital Signs Temp Pulse Pulse Resp BP Pulse Ox 04/28/22 08:40 77 123/48 L 04/28/22 07:12 37.6 C H 75 18 114/52 L 94 04/28/22 03:25 37.1 C 78 18 123/55 L 92 04/28/22 00:00 61 04/27/22 22:53 37.3 C 61 18 125/45 L 95 Laboratory Results 04/28/22 06:24 04/28/22 06:24 Diagnostic Findings No new imaging PG Care Time/CCT Total # of Minutes Spent Total Time Spent with Patient: Total time spent is greater than 50% in coordination of care (as documented) at patient's floor/unit and/or counseling patient: Coding Level of Care Code 47742 Subseq Hosp Care Lvl 2 Diagnoses Respiratory failure with hypoxia J96.91 Acute on chronic HFrEF (heart failure with reduced ejection fraction) I50.23 Paroxysmal atrial fibrillation with RVR I48.0 Anemia D64.9 NSTEMI (non-ST elevated myocardial infarction) I21.4 Fever R50.9
[2022-04-28] MEDS: DOXYCYCLINE HYCLATE 100 MG CAP PO SCH ×2 (10:31→20:45)
--- NOTE | 2022-04-28 13:56 | Hospitalist Progress Note ---
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 He is being managed for the following: #. Fever/ ?Sepsis- source ?respiratory. Patient presented with fever, hypotension and lactic acidosis. Normal WBC, elevated procal. Blood clx negative, urine clx negative, 04/23 fungal blood clx pending. Lyme negative, anaplasma pending but already on doxy. - Last febrile 04/25 AM. Normal WBC. Procal trending down 0.78->0.4 - Seen by ID- recommendations noted- Vanc discontinued, Continue zosyn/doxy. ID recommended bronchoscopy and BAL as legionella negative. Per Pulm- since no more fever and patient clinically improving, no plans for bronchoscopy as of now. #. Acute hypoxemic respiratory failure with diffuse pulmonary infiltrates- ?atypical infection vs pulm edema. Resp Biofire negative. - Not on home O2 prior. S/p HFNC and bipap, now on HFNC. No plans for bronchoscopy currently. - CXR 04/25 improved from admission - Continue supplemental oxygen, wean down as tolerated. Continue ABx and diuretics. Will be done w/ zosyn for 7 days after today. c/w doxy to complete 10 days. On lasix 40 mg iv bid w/ KCL 40 meq bid, FR 1800ml. Monitor I/O. Monitor lytes and BMP. 04/22 CTA chest- 1. No CTA evidence for pulmonary embolus. 2. Marked bullous emphysematous changes involving the upper lobes bilaterally, right greater than left. 3. The bilateral airspace opacities actually represent preserved lung with groundglass opacity present. This most likely represents mild alveolar edema. 4. No confluent alveolar opacities were bronchograms are seen. 5. Cardiomegaly with extensive coronary artery calcification and atherosclerotic calcification of the aorta. #. Trop elevation- Per cardio, likely demand ischemia due to hypoxia and resp failure rather than NSTEMI. Echo noted. Cardiology evaluated. #. Paroxysmal Afib with RVR- converted to NSR. Amio drip has been discontinued. Digoxin has been added 04/23. Metoprolol increased to tid. Home eliquis on resumed 04/27 since no plans for bronch. Further management per cardio #. Acute on chronic diastolic CHF- continue diuresis, daily weight, continue I and Os measurement. H/o CAD w/ hx of CABG x 4 Tachybrady syndrome s/p PPM Fall with forehead contusion and generalized weakness- CT head/C spine negative for acute abnormality. PT OT . IDDM 2- A1c 6.7 12/15/21. Continue lantus/novolog per protocol L diabetic heel wound- established with wound care. WOCN eval Multiple myeloma with lytic bone lesions- Follows [facility] oncology, Dr. Garcia. Last treatment of Velcade was 04/21, receiving weekly. Holding revlimid and velcade. Anemia- Hb dropped to 7 from 9 on admission. No overt bleeding noted ?related to his acute illness and underlying MM. S/p 1 U PRBC, Hb improved to 8.6. Continue to monitor. Hb 9->7.2->7->8.6->8.4->8.3->8.5->8.6 Hypokalemia- repleted. recheck in am Hypophosphatemia- repleted, recheck in am #. Transaminitis- AST/ALT in 80/82-->117/156. today seems around the same w/ some elevation in ALT. continue to hold lipitor and tylenol. Recheck in am #. Constipation- s/p relistor 04/24 and had BM. Continue bowel regimen. No BM for 3-4 days per Pt despite laxatives daily, will try another dose of relistor and see. DVT ppx: Eliquis Dispo- PCU. Still requiring significant supplemental oxygen, wean down as tolerated. Will likely require supplemental oxygen at discharge- will need 2 step O2 eval closer to discharge. Admission and Anticipated Discharge Date Admission Date: April 22, 2022 Subjective Patient seen and examined at bedside as a follow-up of fever of unknown origin, acute hypoxemic respiratory failure with diffuse pulmonary infiltrates and paroxysmal A. fib with RVR and acute on chronic diastolic CHF. Patient was sitting up in chair, on 7 L nasal cannula oxygen, reports leg pain overnight requiring pain meds [reports chronic leg pain on and off], reports eating okay but denies bowel movement since last 3 to 4 days, denies chest pain/headache/dizziness/sore throat/palpitation/other review of symptoms. Patient reports feeling better. Physical Exam Physical Exam: GENERAL: Alert and oriented x3. NAD, on 7L NC O2. HEENT: No pallor, no icterus. Pupils equal, round and reactive to light. Oral mucosa moist. NECK: No JVD, no neck masses. HEART: S1 and S2 heard. Regular rate and rhythm. No murmur, no gallop. RESPIRATORY SYSTEM: Normal AP diameter. No accessory muscle use. No wheezing, no crackles. ABDOMEN: Soft, bowel sounds present, nontender, no distention. CENTRAL NERVOUS SYSTEM: No facial droop. Speech is clear. Obeys simple commands. Moves extremities. EXTREMITIES: No edema, no erythema seen. UC in situ, w/ yellow urine collection noted. Results & Data Results & Data ([facility]) Vital Signs (Past 12 Hours) Vital Signs Temp Pulse Resp BP Pulse Ox 04/28/22 12:44 36.7 C 76 18 118/60 97 04/28/22 08:40 77 123/48 L 04/28/22 07:12 37.6 C H 75 18 114/52 L 94 04/28/22 03:25 37.1 C 78 18 123/55 L 92 (1) CHF (congestive heart failure) Heart failure chronicity: unspecified Heart failure type: unspecified Qualified Code(s): I50.9 - Heart failure, unspecified
[2022-04-28] MEDS ORDERED: METHYLNALTREXONE BROMIDE 12 MG/0.6 ML VIAL SQ ONE (14:30)
--- NOTE | 2022-04-28 15:33 | Cardiology Progress Note ---
Date of Service April 28, 2022 Assessment & Plan (1) Respiratory failure with hypoxia: (2) Acute on chronic HFrEF (heart failure with reduced ejection fraction): (3) Paroxysmal atrial fibrillation with RVR: (4) Hypokalemia: (5) NSTEMI (non-ST elevated myocardial infarction): (6) Anemia: (7) Multiple myeloma: Plan Continue furosemide 40 mg twice daily. Follow daily weight, fluid balance, GFR, and electrolytes. Supplement potassium and phosphorus as per internal medicine. Consider transition to oral diuretic therapy in the next 24-48 hours pending review of a.m. labs. Amiodarone discontinued in favor of metoprolol plus digoxin. IV heparin discontinued. Apixaban restarted 04/27/2022. Antibiotics as per internal medicine. Urinary Legionella antigen negative. Appreciate infectious disease and pulmonary input. Admission and Anticipated Discharge Date Admission Date: April 22, 2022 Subjective Patient seen examined the bedside. Oxygen requirements unchanged. Fluid balance negative approximately 1 L. Denies orthopnea or PND. No edema. Telemetry reveals sinus rhythm with demand ventricular pacing. Offers no new concerns/complaints. Review of Systems Review of Systems: All systems reviewed & are unremarkable except as noted in Subjective Physical Exam Constitutional: well nourished and + ill appearing; no acute distress Respiratory: no respiratory distress, no labored breathing and no retractions Auscultation: + crackles (Bilateral bases); no rhonchi and no wheezes Cardiovascular: Rate/Rhythm: regular rate and regular rhythm Heart Sounds: normal S1 and normal S2; no murmur Vessels: radial pulses present; no JVD and no carotid bruit Extremities: no edema Gastrointestinal (Abdomen): Inspection/Auscultation: abdomen normal to inspection and normal bowel sounds; abdomen not distended Percussion/Palpation: abdomen soft; abdomen nontender, no guarding and abdomen not rigid Neurologic: CN's II-XI intact bilaterally and moves all extremities; no focal motor deficits Psychiatric: A+Ox3, euthymic affect Results & Data ([facility]) Vital Signs (Past 12 Hours) Vital Signs Temp Pulse Pulse Resp BP Pulse Ox 04/28/22 14:05 69 117/47 L 04/28/22 12:44 36.7 C 76 18 118/60 97 04/28/22 08:40 77 123/48 L 04/28/22 07:12 37.6 C H 75 18 114/52 L 94 04/28/22 06:15 75
[2022-04-28] MEDS: DIGOXIN 0.25 MG TAB PO SCH (17:00)
[2022-04-28] MEDS: LANTUS PER UNIT CHARGE SQ SCH (20:38)
[2022-04-28] MEDS: MELATONIN 3 MG TAB PO PRN (20:43)
[2022-04-29] MEDS: PIPERACILLIN/TAZOBACTAM 3.375 GM in DEXTROSE 5% 100 ML IV SCH
[2022-04-29 07:08] LABS: Hematocrit (blood only) 27.9 % (40.1-51.0)
[2022-04-29 07:34] LABS: Albumin Level 3.2 gm/dl (3.4-5.0); BUN Creatinine Ratio 26.4 (10-20); Bilirubin Direct 0.3 mg/dl (0-0.2); Bilirubin,Total 0.9 mg/dl (0.2-1.0); Creatinine Clr Calc Pharmacy 60.5 ml/min; Est GFR (African American) 75.7 ml/min; Est GFR (Non-African American) 65.3 ml/min; Magnesium 1.9 mg/dl (1.7-2.4); Phosphorus 2.9 mg/dl (2.5-4.9); Potassium 3.9 mmol/L (3.5-5.1); Total Protein 6.2 gm/dl (6.0-8.3)
[2022-04-29] MEDS: METOPROLOL TARTRATE 25 MG TAB PO SCH ×3 (08:21→20:29)
[2022-04-29] MEDS: INSULIN ASPART PER UNIT SC SCH ×4 (08:25→20:19)
[2022-04-29] MEDS: FUROSEMIDE 40 MG/4 ML VIAL IV SCH (08:25)
[2022-04-29] MEDS: DOCUSATE SODIUM/SENNA 50/8.6MG TAB PO SCH ×2 (08:26→20:31)
[2022-04-29] MEDS: DOXYCYCLINE HYCLATE 100 MG CAP PO SCH ×2 (08:26→20:28)
[2022-04-29] MEDS: APIXABAN 5 MG TABLET PO SCH ×2 (08:26→20:31)
[2022-04-29] MEDS: GABAPENTIN 300 MG CAP PO SCH (08:26)
[2022-04-29] MEDS: CYANOCOBALAMIN (B-12) 500 MCG TABLET PO SCH (08:26)
[2022-04-29] MEDS: ASPIRIN 81 MG ECTAB PO SCH (08:26)
[2022-04-29] MEDS: POTASSIUM CHLORIDE CRTAB 20 MEQ TABCR PO SCH ×2 (08:26→20:29)
[2022-04-29] MEDS: FERROUS SULFATE 325 MG TAB PO SCH (08:26)
[2022-04-29] MEDS: ACYCLOVIR 400 MG TAB PO SCH ×2 (08:26→20:31)
[2022-04-29] MEDS: POLYETHYLENE (MIRALAX) 17 GM PACK PO SCH (08:26)
[2022-04-29] MEDS: DOCUSATE SODIUM 100 MG CAP PO SCH ×2 (08:27→20:32)
[2022-04-29] MEDS: POT PHOSPHATE MONOBASIC W/ SOD TAB PO SCH ×4 (08:27→20:30)
[2022-04-29] MEDS: ISOSORBIDE MONO EXTENDED REL 30 MG TABCR PO SCH (08:31)
--- NOTE | 2022-04-29 15:00 | Cardiology Progress Note ---
Date of Service April 29, 2022 Assessment & Plan (1) Respiratory failure with hypoxia: (2) Acute on chronic HFrEF (heart failure with reduced ejection fraction): (3) Paroxysmal atrial fibrillation with RVR: (4) Hypokalemia: (5) NSTEMI (non-ST elevated myocardial infarction): (6) Anemia: (7) Multiple myeloma: Plan Creatinine trending upward today. We will hold afternoon dose of Lasix. Reassess BMP in a.m. Consider transition to oral Lasix pending review. Follow daily weight, fluid balance, GFR, and electrolytes. Supplement potassium and phosphorus as per internal medicine. Amiodarone discontinued in favor of metoprolol plus digoxin. Patient maintaining sinus rhythm. IV heparin discontinued. Apixaban restarted 04/27/2022. Antibiotics as per internal medicine. Admission and Anticipated Discharge Date Admission Date: April 22, 2022 Subjective Patient seen examined the bedside. Creatinine trending upward slightly. Fluid balance remains negative. Shortness of breath improved. Denies chest pain or palpitations. Remains in sinus rhythm on telemetry. Oxygen requirements improving. Review of Systems Review of Systems: All systems reviewed & are unremarkable except as noted in Subjective Physical Exam Constitutional: well nourished and + ill appearing; no acute distress Respiratory: no respiratory distress, no labored breathing and no retractions Auscultation: + crackles (Bilateral bases); no rhonchi and no wheezes Cardiovascular: Rate/Rhythm: regular rate and regular rhythm Heart Sounds: normal S1 and normal S2; no murmur Vessels: radial pulses present; no JVD and no carotid bruit Extremities: no edema Gastrointestinal (Abdomen): Inspection/Auscultation: abdomen normal to inspection and normal bowel sounds; abdomen not distended Percussion/Palpation: abdomen soft; abdomen nontender, no guarding and abdomen not rigid Neurologic: CN's II-XI intact bilaterally and moves all extremities; no focal motor deficits Psychiatric: A+Ox3, euthymic affect Results & Data ([facility]) Vital Signs (Past 12 Hours) Vital Signs Temp Pulse Pulse Pulse Resp BP Pulse Ox 04/29/22 12:30 37.1 C 71 16 125/57 L 97 04/29/22 08:30 04/29/22 07:45 36.9 C 73 16 93/65 L 94 04/29/22 07:23 71 04/29/22 04:00 37.3 C 66 18 104/55 L 95 O2 Del Method O2 Flow Rate 04/29/22 12:30 High Flow Nasal Cannula 4 04/29/22 08:30 High Flow Nasal Cannula 7 04/29/22 07:45 High Flow Nasal Cannula 7 04/29/22 07:23 04/29/22 04:00 High Flow Nasal Cannula 9
--- NOTE | 2022-04-29 16:26 | Hospitalist Progress Note ---
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 He is being managed for the following: #. Fever/ ?Sepsis- source ?respiratory. Patient presented with fever, hypotension and lactic acidosis. Normal WBC, elevated procal. Blood clx negative, urine clx negative, 04/23 fungal blood clx pending. Lyme negative, anaplasma pending but already on doxy. - Last febrile 04/25 AM. Normal WBC. Procal trending down 0.78->0.4 - Seen by ID- recommendations noted- Vanc discontinued, Continue zosyn x 7days/doxy. ID recommended bronchoscopy and BAL as legionella negative. Per P ulm- since temperature stabilized and patient clinically improving, no plans for bronchoscopy as of now. #. Acute hypoxemic respiratory failure with diffuse pulmonary infiltrates- ?atypical infection vs pulm edema. Resp Biofire negative. - Not on home O2 prior. S/p HFNC and bipap, now on HFNC. No plans for bronchoscopy currently. - CXR 04/25 improved from admission - Continue supplemental oxygen, wean down as tolerated. Continue ABx and diuretics. s/p 7 d of Zosyn. c/w doxy to complete 10 days. On lasix 40 mg iv bid w/ KCL 40 meq bid -being managed by Cardio, FR 1800ml. Monitor I/O, balance is negative. Monitor lytes and BMP. - Improving O2 requirement. 04/22 CTA chest- 1. No CTA evidence for pulmonary embolus. 2. Marked bullous emphysematous changes involving the upper lobes bilaterally, right greater than left. 3. The bilateral airspace opacities actually represent preserved lung with groundglass opacity present. This most likely represents mild alveolar edema. 4. No confluent alveolar opacities were bronchograms are seen. 5. Cardiomegaly with extensive coronary artery calcification and atherosclerotic calcification of the aorta. #. Trop elevation- Per cardio, likely demand ischemia due to hypoxia and resp failure rather than NSTEMI. Echo noted. Cardiology evaluated. #. Paroxysmal Afib with RVR- converted to NSR. Amio drip has been discontinued. Digoxin has been added 04/23. Metoprolol increased to tid. Home eliquis on resumed 04/27. #. Acute on chronic diastolic CHF- continue diuresis, daily weight, continue I and Os measurement. Diuresis per cardio. will continue w/ electrolyte monitoring and repletion as appropriate. H/o CAD w/ hx of CABG x 4 Tachybrady syndrome s/p PPM Fall with forehead contusion and generalized weakness- CT head/C spine negative for acute abnormality. PT OT . IDDM 2- A1c 6.7 12/15/21. Continue lantus/novolog per protocol L diabetic heel wound- established with wound care. WOCN eval Multiple myeloma with lytic bone lesions- Follows [facility] oncology, Dr. Garcia. Last treatment of Velcade was 04/21, receiving weekly. Holding revlimid and velcade. Anemia- Hb dropped to 7 from 9 on admission. No overt bleeding noted ?related to his acute illness and underlying MM. S/p 1 U PRBC, Hb improved to 8.6. Continue to monitor. Hb 9->7.2->7->8.6->8.4->8.3->8.5->8.6 Hypokalemia- repleted. recheck in am Hypophosphatemia- repleted, recheck in am #. Transaminitis- AST/ALT again uptrending, likely 2/2 zosyn use, pt done w/ course. LFT in AM. continue to hold lipitor and tylenol. Recheck in am #. Constipation- s/p relistor 04/24 and had BM. s/p relistor 04/28 w/ BM on 04/29 AM. Continue bowel regimen. DVT ppx: Eliquis Dispo- Wean down as tolerated. Will likely require supplemental oxygen at discharge- will need 2 step O2 eval closer to discharge. Likely DC in next 1-2 days if continues to improve w/ O2 requirement. Admission and Anticipated Discharge Date Admission Date: April 22, 2022 Subjective Patient seen and examined at bedside as a follow-up of fever of unknown origin, acute hypoxemic respiratory failure with diffuse pulmonary infiltrates and paroxysmal A. fib with RVR and acute on chronic diastolic CHF. Patient was sitting up in chair, on 7 L nasal cannula oxygen, reports decreased appetite,had large BM in am, denies chest pain/headache/dizziness/sore throat/palpitation/other review of symptoms. Physical Exam Physical Exam: GENERAL: Alert and oriented x3. NAD, on 7L NC O2. HEENT: No pallor, no icterus. Pupils equal, round and reactive to light. Oral mucosa moist. NECK: No JVD, no neck masses. HEART: S1 and S2 heard. Regular rate and rhythm. No murmur, no gallop. RESPIRATORY SYSTEM: Normal AP diameter. No accessory muscle use. No wheezing, no crackles. decreased breath sounds b/l. ABDOMEN: Soft, bowel sounds present, nontender, no distention. CENTRAL NERVOUS SYSTEM: No facial droop. Speech is clear. Obeys simple commands. Moves extremities. EXTREMITIES: No edema, no erythema seen. UC in situ, w/ yellow urine collection noted. Results & Data Results & Data ([facility]) Vital Signs (Past 12 Hours) Vital Signs Temp Pulse Pulse Resp BP Pulse Ox O2 Del Method 04/29/22 14:56 70 04/29/22 12:30 37.1 C 71 16 125/57 L 97 High Flow Nasal Cannula 04/29/22 08:30 High Flow Nasal Cannula 04/29/22 07:45 36.9 C 73 16 93/65 L 94 High Flow Nasal Cannula 04/29/22 07:23 71 O2 Flow Rate 04/29/22 14:56 04/29/22 12:30 4 04/29/22 08:30 7 04/29/22 07:45 7 04/29/22 07:23 (1) CHF (congestive heart failure) Heart failure chronicity: unspecified Heart failure type: unspecified Qualified Code(s): I50.9 - Heart failure, unspecified
[2022-04-29] MEDS: DIGOXIN 0.25 MG TAB PO SCH (17:46)
[2022-04-29] MEDS: LANTUS PER UNIT CHARGE SQ SCH (20:21)
[2022-04-29] MEDS: MoRPHine SULFATE IR 15 MG TAB (IMMEDIATE RELEASE) PO PRN (22:00)
[2022-04-29] MEDS: MELATONIN 3 MG TAB PO PRN (23:19)
[2022-04-30 06:57] LABS: Hematocrit (blood only) 26.6 % (40.1-51.0); Hemoglobin 8.7 g/dl (14.0-18.0)
[2022-04-30 07:48] LABS: Albumin Level 3.1 gm/dl (3.4-5.0); BUN Creatinine Ratio 30.5 (10-20); Bilirubin Direct 0.2 mg/dl (0-0.2); Bilirubin,Total 0.7 mg/dl (0.2-1.0); Calcium 7.3 mg/dl (8.5-10.1); Creatinine Clr Calc Pharmacy 78.9 ml/min; Est GFR (African American) 100.3 ml/min; Est GFR (Non-African American) 86.5 ml/min; Phosphorus 2.5 mg/dl (2.5-4.9); Potassium 4.2 mmol/L (3.5-5.1); Total Protein 6.1 gm/dl (6.0-8.3)
[2022-04-30] MEDS: INSULIN ASPART PER UNIT SC SCH ×4 (08:55→20:16)
[2022-04-30] MEDS: ACYCLOVIR 400 MG TAB PO SCH ×2 (09:12→20:16)
[2022-04-30] MEDS: APIXABAN 5 MG TABLET PO SCH ×2 (09:13→20:16)
[2022-04-30] MEDS: ASPIRIN 81 MG ECTAB PO SCH (09:13)
[2022-04-30] MEDS: CYANOCOBALAMIN (B-12) 500 MCG TABLET PO SCH (09:13)
[2022-04-30] MEDS: FERROUS SULFATE 325 MG TAB PO SCH (09:14)
[2022-04-30] MEDS: DOCUSATE SODIUM/SENNA 50/8.6MG TAB PO SCH ×2 (09:14→20:15)
[2022-04-30] MEDS: DOXYCYCLINE HYCLATE 100 MG CAP PO SCH ×2 (09:15→20:15)
[2022-04-30] MEDS: METOPROLOL TARTRATE 25 MG TAB PO SCH ×3 (09:16→20:16)
[2022-04-30] MEDS: GABAPENTIN 300 MG CAP PO SCH (09:16)
[2022-04-30] MEDS: POLYETHYLENE (MIRALAX) 17 GM PACK PO SCH (09:16)
[2022-04-30] MEDS: ISOSORBIDE MONO EXTENDED REL 30 MG TABCR PO SCH (09:16)
[2022-04-30] MEDS: POTASSIUM CHLORIDE CRTAB 20 MEQ TABCR PO SCH (09:17)
[2022-04-30] MEDS: DOCUSATE SODIUM 100 MG CAP PO SCH ×2 (09:18→20:28)
--- NOTE | 2022-04-30 10:50 | Ultrasound Report ---
ULTRASOUND RIGHT UPPER QUADRANT ABDOMEN CLINICAL HISTORY: Elevated hepatic transaminases. COMPARISON STUDY: No priors. TECHNIQUE: Real-time, grayscale, and color flow sonography of the right upper quadrant of the abdomen was performed. Images are reviewed in the transverse and longitudinal planes. FINDINGS: Liver: The liver is normal in size and echotexture. There is no intrahepatic biliary ductal dilatatio n. The main portal vein is patent. Gallbladder: The gallbladder is contracted and grossly unremarkable. No shadowing gallstones are iden tified. There is no gallbladder wall thickening or pericholecystic fluid. A sonographic De Paz's sign is reportedly absent. The common bile duct measures up to 0.5 cm in diameter. Pancreas: Not well visualized due to overlying bowel gas. Right kidney: Survey images of the right kidney demonstrate normal size and echotexture. There is no hydronephrosis. A 2 cm cyst is incidentally noted. Ascites: None. IMPRESSION: 1. The liver is normal in size and echotexture. 2. No gallstones are seen. ACT 112: Negative or not required by law. Electronically signed by: Dante Lopez M.D. 04/30/2022 10:48 AM
[2022-04-30] MEDS: MoRPHine SULFATE IR 15 MG TAB (IMMEDIATE RELEASE) PO PRN ×2 (12:43→21:28)
--- NOTE | 2022-04-30 15:07 | Cardiology Progress Note ---
Date of Service April 30, 2022 Assessment & Plan (1) Respiratory failure with hypoxia: (2) Acute on chronic HFrEF (heart failure with reduced ejection fraction): (3) Paroxysmal atrial fibrillation with RVR: (4) Hypokalemia: (5) NSTEMI (non-ST elevated myocardial infarction): (6) Anemia: (7) Multiple myeloma: Plan Discontinue intravenous furosemide. Patient taking torsemide 10 mg daily prior to admission. Recommend torsemide 20 mg p.o. daily. Continue to daily weight, fluid balance, GFR, and electrolytes. Supplement potassium and phosphorus as per internal medicine. Amiodarone discontinued in favor of metoprolol plus digoxin. Patient maintaining sinus rhythm. IV heparin discontinued. Apixaban restarted 04/27/2022. Antibiotics as per internal medicine. Admission and Anticipated Discharge Date Admission Date: April 22, 2022 Subjective Patient seen examined the bedside. Fluid balance negative. Intravenous Lasix on hold today pending review of lab studies. Denies chest pain palpitations. Maintaining sinus rhythm on telemetry. Renal function stable. Review of Systems Review of Systems: All systems reviewed & are unremarkable except as noted in Subjective Physical Exam Constitutional: well nourished and + ill appearing; no acute distress Respiratory: no respiratory distress, no labored breathing and no retractions Auscultation: + crackles (Bilateral bases); no rhonchi and no wheezes Cardiovascular: Rate/Rhythm: regular rate and regular rhythm Heart Sounds: normal S1 and normal S2; no murmur Vessels: radial pulses present; no JVD and no carotid bruit Extremities: no edema Gastrointestinal (Abdomen): Inspection/Auscultation: abdomen normal to inspection and normal bowel sounds; abdomen not distended Percu ssion/Palpation: abdomen soft; abdomen nontender, no guarding and abdomen not rigid Neurologic: CN's II-XI intact bilaterally and moves all extremities; no focal motor deficits Psychiatric: A+Ox3, euthymic affect Results & Data ([facility]) Vital Signs (Past 12 Hours) Vital Signs Temp Pulse Pulse Pulse Resp BP Pulse Ox 04/30/22 10:55 36.4 C L 75 17 132/56 L 97 04/30/22 08:00 04/30/22 08:00 36.8 C 76 20 123/52 L 96 04/30/22 08:00 76 04/30/22 07:26 36.8 C 71 19 123/52 L 92 04/30/22 03:47 37.2 C 70 20 129/55 L 92 O2 Del Method O2 Flow Rate 04/30/22 10:55 Nasal Cannula 3 04/30/22 08:00 High Flow Nasal Cannula 3 04/30/22 08:00 High Flow Nasal Cannula 2 04/30/22 08:00 04/30/22 07:26 Nasal Cannula 3 04/30/22 03:47 High Flow Nasal Cannula 3
[2022-04-30] MEDS ORDERED: FUROSEMIDE 40 MG TAB PO SCH (15:15)
--- NOTE | 2022-04-30 15:36 | Hospitalist Progress Note ---
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 He is being managed for the following: #. Fever/ ?Sepsis- source ?respiratory. Patient presented with fever, hypotension and lactic acidosis. Normal WBC, elevated procal. Blood clx negative, urine clx negative, 04/23 fungal blood clx pending. Lyme negative, anaplasma pending but already on doxy. - Last febrile 04/25 AM. Normal WBC. Procal trending down 0.78->0.4 - Seen by ID- recommendations noted- Vanc discontinued, Continue zosyn x 7days; and doxy. ID recommended bronchoscopy and BAL as legionella negative. Per Pulm- since temperature stabilized and patient clinically improving, no plans for bronchoscopy as of now. #. Acute hypoxemic respiratory failure with diffuse pulmonary infiltrates- ?atypical infection vs pulm edema. Resp Biofire negative. - Not on home O2 prior. S/p HFNC and bipap, now on HFNC. No plans for bronchoscopy currently. - CXR 04/25 improved from admission - Continue supplemental oxygen, wean down as tolerated. Continue ABx and diuretics. s/p 7 d of Zosyn. c/w doxy to complete 10 days. diuresis per cardio, currently on torsemide 20 mg daily. Will make KCL from BID to daily , FR 1800ml. Monitor I/O, balance is negative. Monitor lytes and BMP. - Improving O2 requirement. currently on 3.5 L NC, will need 2 step prior to DC. 04/22 CTA chest- 1. No CTA evidence for pulmonary embolus. 2. Marked bullous emphysematous changes involving the upper lobes bilaterally, right greater than left. 3. The bilateral airspace opacities actually represent preserved lung with groundglass opacity present. This most likely represents mild alveolar edema. 4. No confluent alveolar opacities were bronchograms are seen. 5. Cardiomegaly with extensive coronary artery calcification and atherosclerotic calcification of the aorta. #. Trop elevation- Per cardio, likely demand ischemia due to hypoxia and resp failure rather than NSTEMI. Echo noted. Cardiology evaluated. #. Paroxysmal Afib with RVR- converted to NSR. Amio drip has been discontinued. Digoxin has been added 04/23. Metoprolol increased to tid. Home eliquis on resumed 04/27. #. Acute on chronic diastolic CHF- continue diuresis, daily weight, continue I and Os measurement. Diuresis per cardio. will continue w/ electrolyte monitoring and repletion as appropriate. H/o CAD w/ hx of CABG x 4 Tachybrady syndrome s/p PPM Fall with forehead contusion and generalized weakness- CT head/C spine negative for acute abnormality. PT OT . IDDM 2- A1c 6.7 12/15/21. Continue lantus/novolog per protocol L diabetic heel wound- established with wound care. WOCN eval Multiple myeloma with lytic bone lesions- Follows [facility] oncology, Dr. Garcia. Last treatment of Velcade was 04/21, receiving weekly. Holding revlimid and velcade. Anemia- Hb dropped to 7 from 9 on admission. No overt bleeding noted ?related to his acute illness and underlying MM. S/p 1 U PRBC, Hb improved to 8.6. Continue to monitor. Hb 9->7.2->7->8.6->8.4->8.3->8.5->8.6 #. Transaminitis- AST/ALT again uptrending, ?? 2/2 recent zosyn use, 04/30 Liver US wnl, 04/30 hep panel pending, no RUQ pain, non-icteric, Repeat lab in AM, if still uptrending consider GI. Continue to hold lipitor and tylenol. Recheck in am #. Constipation- s/p relistor 04/24 and had BM. s/p relistor 04/28 w/ BM on 04/29 AM. Continue bowel regimen. DVT ppx: Eliquis Dispo- Wean down as tolerated. Will likely require supplemental oxygen at discharge- will need 2 step O2 eval closer to discharge. Likely DC in next 1-2 days if improvement in LFT noted. Admission and Anticipated Discharge Date Admission Date: April 22, 2022 Subjective Patient seen and examined at bedside as a follow-up of fever of unknown origin, acute hypoxemic respiratory failure with diffuse pulmonary infiltrates and paroxysmal A. fib with RVR and acute on chronic diastolic CHF. Patient was sitting lying in bed, on 3.5 L nasal cannula oxygen, has decreased appetite but eating some, had large BM on 04/29, denies chest pain/headache/dizziness/sore throat/palpitation/other review of symptoms. Physical Exam Physical Exam: GENERAL: Alert and oriented x3. NAD, on 3.5L NC O2. HEENT: No pallor, no icterus. Pupils equal, round and reactive to light. Oral mucosa moist. NECK: No JVD, no neck masses. HEART: S1 and S2 heard. Regular rate and rhythm. No murmur, no gallop. RESPIRATORY SYSTEM: Normal AP diameter. No accessory muscle use. No wheezing, no crackles. decreased breath sounds b/l. ABDOMEN: Soft, bowel sounds present, nontender, no distention. CENTRAL NERVOUS SYSTEM: No facial droop. Speech is clear. Obeys simple commands. Moves extremities. EXTREMITIES: No edema, no erythema seen. UC in situ, w/ yellow urine collection noted. Results & Data Results & Data ([facility]) Vital Signs (Past 12 Hours) Vital Signs Temp Pulse Pulse Pulse Resp BP Pulse Ox 04/30/22 10:55 36.4 C L 75 17 132/56 L 97 04/30/22 08:00 04/30/22 08:00 36.8 C 76 20 123/52 L 96 04/30/22 08:00 76 04/30/22 07:26 36.8 C 71 19 123/52 L 92 04/30/22 03:47 37.2 C 70 20 129/55 L 92 O2 Del Method O2 Flow Rate 04/30/22 10:55 Nasal Cannula 3 04/30/22 08:00 High Flow Nasal Cannula 3 04/30/22 08:00 High Flow Nasal Cannula 2 04/30/22 08:00 04/30/22 07:26 Nasal Cannula 3 04/30/22 03:47 High Flow Nasal Cannula 3 (1) CHF (congestive heart failure) Heart failure chronicity: unspecified Heart failure type: unspecified Qualified Code(s): I50.9 - Heart failure, unspecified
[2022-04-30] MEDS: TORSEMIDE 10 MG TAB PO SCH (15:49)
[2022-04-30] MEDS: DIGOXIN 0.25 MG TAB PO SCH (15:50)
[2022-04-30] MEDS: LANTUS PER UNIT CHARGE SQ SCH (20:16)
[2022-04-30] MEDS: MELATONIN 3 MG TAB PO PRN (21:28)
[2022-05-01 05:01] LABS: HBSAG NON-REACTIVE (NON-REACTIVE); Hepatitis A Antibody IgM NON-REACTIVE (NON-REACTIVE); Hepatitis B Core Antibody IgM NON-REACTIVE (NON-REACTIVE)
[2022-05-01 06:15] LABS: Hematocrit (blood only) 27.8 % (40.1-51.0)
[2022-05-01 06:26] LABS: INR 1.2 (0.9-1.1); Prothrombin Time 12.2 Seconds (9.0-12.0)
[2022-05-01 06:40] LABS: Albumin Level 3.2 gm/dl (3.4-5.0); Bilirubin,Total 0.7 mg/dl (0.2-1.0); Calcium 7.9 mg/dl (8.5-10.1); Est GFR (African American) 92.7 ml/min; Globulin 3.1 gm/dl (2.5-4.0); Magnesium 2.1 mg/dl (1.7-2.4); Phosphorus 2.5 mg/dl (2.5-4.9); Potassium 4.5 mmol/L (3.5-5.1); Total Protein 6.3 gm/dl (6.0-8.3)
[2022-05-01] MEDS: DOXYCYCLINE HYCLATE 100 MG CAP PO SCH ×2 (08:05→19:49)
[2022-05-01] MEDS: METOPROLOL TARTRATE 25 MG TAB PO SCH ×2 (08:06→14:47)
[2022-05-01] MEDS: APIXABAN 5 MG TABLET PO SCH ×2 (08:06→19:49)
[2022-05-01] MEDS: ACYCLOVIR 400 MG TAB PO SCH ×2 (08:06→19:49)
[2022-05-01] MEDS: TORSEMIDE 10 MG TAB PO SCH (08:07)
[2022-05-01] MEDS: FERROUS SULFATE 325 MG TAB PO SCH (08:07)
[2022-05-01] MEDS: DOCUSATE SODIUM/SENNA 50/8.6MG TAB PO SCH ×2 (08:08→19:49)
[2022-05-01] MEDS: ASPIRIN 81 MG ECTAB PO SCH (08:09)
[2022-05-01] MEDS: GABAPENTIN 300 MG CAP PO SCH (08:09)
[2022-05-01] MEDS: CYANOCOBALAMIN (B-12) 500 MCG TABLET PO SCH (08:09)
[2022-05-01] MEDS: ISOSORBIDE MONO EXTENDED REL 30 MG TABCR PO SCH (08:09)
[2022-05-01] MEDS: POLYETHYLENE (MIRALAX) 17 GM PACK PO SCH (08:10)
[2022-05-01] MEDS: POTASSIUM CHLORIDE CRTAB 20 MEQ TABCR PO SCH ×2 (08:11→09:39)
[2022-05-01] MEDS: INSULIN ASPART PER UNIT SC SCH ×4 (08:15→20:43)
[2022-05-01] MEDS: DOCUSATE SODIUM 100 MG CAP PO SCH ×2 (08:15→19:49)
--- NOTE | 2022-05-01 11:29 | XRay Report ---
XR chest 1V portable CLINICAL HISTORY: sob increasing TECHNIQUE: Single frontal radiograph of the chest was obtained. Comparison: Comparison is made to chest radiograph 04/25/2022 FINDINGS: Median sternotomy wires are unchanged. Stable dual lead pacemaker. Cardiomegaly is noted. Bilateral a irspace opacities are somewhat improved from prior exam. No evidence of pleural effusion or pneumotho rax. IMPRESSION: Interval continued mild improvement of airspace opacities from prior exam. ACT 112: Negative or not required by law. Electronically signed by: Tacho Lambert M.D. 05/01/2022 11:28 AM
[2022-05-01] MEDS ORDERED: PHARMACY GLYCEMIC MGMT CONSULT PRN (12:23)
--- NOTE | 2022-05-01 13:31 | Pharmacy Report ---
Pharmacy Glycemic Short Note 2 - Date of Service May 01, 2022 - Glycemic Short BSG Results (Last 24 hours): 04/30/22 04/30/22 05/01/22 16:16 20:03 05:47 Glucose 131 H POC Glucose 241 H 143 H 05/01/22 05/01/22 07:31 11:37 Glucose POC Glucose 150 H 229 H OUTPATIENT ANTIDIABETIC REGIMEN: * Lantus 40 units HS * Novolog SSI * Victoza 1.2mg SQ daily HbA1C: 6.7% (04/23) ASSESSMENT: * Patient is a type 2 diabetic, immunocompromised with history of multiple myeloma and a prolonged hospital stay with sepsis and acute respiratory failure. Pharmacy consulted to assist with glycemic management. * Patient has currently been receiving Lantus 30units HS and a Novolog scale ACHS CF/CR 20/6 with prandial BSGs above goal. AM BSGs have been largely acceptable. * Patient tolerating a diet and other stressors stable. * Plan to increase basal by ~15% to 35 units HS. Novolog scale tightened to 15/5 with goal BSG 110-140mg/dL PLAN FOR INPATIENT GLYCEMIC CONTROL: * Hold outpatient oral diabetes medications * Basal insulin * Lantus 35 units SQ HS * Bolus insulin * NovoLog per scale ACHS or Q6hrs while NPO * Goal Range: Low 110 mg/dL - High 140 mg/dL * Correction Factor: 15 mg/dL/unit * Nutritional / Prandial insulin per carb ratio of 1 unit per 5 grams CHO consumed
--- NOTE | 2022-05-01 14:13 | Cardiology Progress Note ---
Date of Service May 01, 2022 Assessment & Plan (1) Respiratory failure with hypoxia: (2) Acute on chronic HFrEF (heart failure with reduced ejection fraction): (3) Paroxysmal atrial fibrillation with RVR: (4) Hypokalemia: (5) NSTEMI (non-ST elevated myocardial infarction): (6) Anemia: (7) Multiple myeloma: Plan Transition metoprolol tartrate to Toprol-XL 75 mg daily. He will receive 25 mg of Toprol-XL this evening. Begin 75 mg daily in the a.m. starting 05/02/2022. Add low-dose angiotensin receptor annika. Losartan 12.5 mg daily. Intravenous furosemide discontinued in favor of oral torsemide 20 mg p.o. daily. Continue to daily weight, fluid balance, GFR, and electrolytes. Amiodarone discontinued in favor of metoprolol plus digoxin. Patient maintaining sinus rhythm. IV heparin discontinued. Apixaban restarted 04/27/2022. Antibiotics as per internal medicine. Cardiology will sign off. Please call with any further concerns/questions. Admission and Anticipated Discharge Date Admission Date: April 22, 2022 Subjective Patient seen and examined at the bedside. Fluid balance negative nearly 2 L. Oxygen requirements unchanged. Denies orthopnea or PND. present at bedside. Review of Systems Review of Systems: All systems reviewed & are unremarkable except as noted in Subjective Physical Exam Constitutional: well nourished and + ill appearing; no acute distress Respiratory: no respiratory distress, no labored breathing and no retractions Auscultation: no crackles, no rales, no rhonchi and no wheezes Cardiovascular: Rate/Rhythm: regular rate and regular rhythm Heart Sounds: normal S1 and normal S2; no murmur Vessels: radial pulses present; no JVD and no carotid bruit Extremities: no edema Gastrointestinal (Abdomen): Inspection/Auscultation: abdomen normal to inspection and normal bowel sounds; abdomen not distended Percussion/Palpation: abdomen soft; abdomen nontender, no guarding and abdomen not rigid Neurologic: CN's II-XI intact bilaterally and moves all extremities; no focal motor deficits Psychiatric: A+Ox3, euthymic affect Results & Data ([facility]) Vital Signs (Past 12 Hours) Vital Signs Temp Pulse Pulse Pulse Resp BP Pulse Ox 05/01/22 12:37 37.0 C 77 17 116/59 L 92 05/01/22 08:00 71 05/01/22 07:16 05/01/22 07:09 36.6 C 78 17 134/75 92 05/01/22 03:50 37.3 C 69 18 130/56 L 91 O2 Del Method O2 Flow Rate 05/01/22 12:37 Nasal Cannula 5 05/01/22 08:00 05/01/22 07:16 High Flow Nasal Cannula 5 05/01/22 07:09 High Flow Nasal Cannula 5 05/01/22 03:50 Oxymask 5
[2022-05-01] MEDS: DIGOXIN 0.25 MG TAB PO SCH (16:32)
--- NOTE | 2022-05-01 17:41 | Hospitalist Progress Note ---
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 He is being managed for the following: #. Fever/ ?Sepsis- source ?respiratory. Patient presented with fever, hypotension and lactic acidosis. Normal WBC, elevated procal. Blood clx negative, urine clx negative, 04/23 fungal blood clx pending. Lyme negative, anaplasma pending but already on doxy. - Last febrile 79 AM. Normal WBC. Procal trending down 0.78->0.4 - Seen by ID- recommendations noted- Vanc discontinued, Continue zosyn x 7days; and doxy. ID recommended bronchoscopy and BAL as legionella negative. Per Pulm- since temperature stabilized and patient clinically improving, no plans for bronchoscopy as of now. #. Acute hypoxemic respiratory failure with diffuse pulmonary infiltrates- ?atypical infection vs pulm edema. Resp Biofire negative. #. Ac on Chr HFrEF: 04/22 ECHO w/ EF 40-45%. Metoprolol 75 mg daily, Losartan added 12.5 mg daily per cardio. Torsemide increased to 20 mg daily. KCl 40 meq daily. FR 1800 ml/day. Digoxin 0.25 mg daily. - Not on home O2 prior. S/p HFNC and bipap, now on HFNC. No plans for bronchoscopy currently. - CXR 05/01 improved from admission - Continue supplemental oxygen, wean down as tolerated. Continue ABx and diuretics. s/p 7 d of Zosyn. c/w doxy to complete 10 days. Card evaluated, on torsemide 20 mg daily. Will c/w KCL 40 meq daily. FR 1800ml. Monitor I/O, balance is negative. Monitor lytes and BMP. - Currently on 5 L NC O2, will need 2 step prior to DC. 04/22 CTA chest- 1. No CTA evidence for pulmonary embolus. 2. Marked bullous emphysematous changes involving the upper lobes bilaterally, right greater than left. 3. The bilateral airspace opacities actually represent preserved lung with groundglass opacity present. This most likely represents mild alveolar edema. 4. No confluent alveolar opacities were bronchograms are seen. 5. Cardiomegaly with extensive coronary artery calcification and atherosclerotic calcification of the aorta. #. Trop elevation- Per cardio, likely demand ischemia due to hypoxia and resp failure rather than NSTEMI. Echo noted. Cardiology evaluated. #. Paroxysmal Afib with RVR- converted to NSR. Amio drip has been discontinued. Digoxin has been added 04/23. Metoprolol increased to 75 mg daily. Home eliquis on resumed 04/27. #. Acute on chronic diastolic CHF- continue diuresis, daily weight, continue I and Os measurement. Diuresis per cardio. will continue w/ electrolyte monitoring and repletion as appropriate. H/o CAD w/ hx of CABG x 4. Tachybrady syndrome s/p PPM Fall with forehead contusion and generalized weakness- CT head/C spine negative for acute abnormality. PT OT . IDDM 2- A1c 6.7 12/15/21. Continue lantus/novolog per protocol L diabetic heel wound- established with wound care. WOCN eval Multiple myeloma with lytic bone lesions- Follows [facility] oncology, Dr. Garcia. Last treatment of Velcade was 04/21, receiving weekly. Holding revlimid and velcade. Anemia- Hb dropped to 7 from 9 on admission. No overt bleeding noted ?related to his acute illness and underlying MM. S/p 1 U PRBC, Hb improved to 8.6. Continue to monitor. Hb 9->7.2->7->8.6->8.4->8.3->8.5->8.6 #. Transaminitis- AST/ALT now downtrending, ?? 2/2 recent zosyn use, 04/30 Liver US wnl, 04/30 hep panel negative, no RUQ pain, non-icteric, Continue to hold lipitor and tylenol. Recheck in am #. Constipation- s/p relistor 04/24 and had BM. s/p relistor 04/28 w/ BM on 04/29 AM. Continue bowel regimen. DVT ppx: Eliquis Dispo- Wean down as tolerated. Will likely require supplemental oxygen at discharge- will need 2 step O2 eval closer to discharge. Awaiting placement for Wednesday, Cardiac meds optimization going on. Admission and Anticipated Discharge Date Admission Date: April 22, 2022 Subjective Patient seen and examined at bedside as a follow-up of fever of unknown origin, acute hypoxemic respiratory failure with diffuse pulmonary infiltrates and paroxysmal A. fib with RVR and acute on chronic diastolic CHF. Patient was sitting lying in bed, on 5 L nasal cannula oxygen, has increased O2 requirement overnight, increased mucous, looked worked up and feels more SOB but maintaining SpO2 on 5 L NC, CXR and Procal sent/reviewed/WNL. Pt has decreased appetite but eating some, had large BM on 04/29, denies chest pain/headache/dizziness/sore throat/palpitation/other review of symptoms. Physical Exam Physical Exam: GENERAL: Alert and oriented x3. NAD, on 5L NC O2. HEENT: No pallor, no icterus. Pupils equal, round and reactive to light. Oral mucosa moist. NECK: No JVD, no neck masses. HEART: S1 and S2 heard. Regular rate and rhythm. No murmur, no gallop. RESPIRATORY SYSTEM: Normal AP diameter. No accessory muscle use. No wheezing, b/b crackles. ABDOMEN: Soft, bowel sounds present, nontender, no distention. CENTRAL NERVOUS SYSTEM: No facial droop. Speech is clear. Obeys simple commands. Moves extremities. EXTREMITIES: No edema, no erythema seen. UC in situ, w/ yellow urine collection noted. Results & Data Results & Data ([facility]) Vital Signs (Past 12 Hours) Vital Signs Temp Pulse Pulse Pulse Resp BP Pulse Ox 05/01/22 16:32 77 05/01/22 16:00 76 05/01/22 15:32 37.1 C 76 18 122/59 L 97 05/01/22 12:37 37.0 C 77 17 116/59 L 92 05/01/22 08:00 71 05/01/22 07:16 05/01/22 07:09 36.6 C 78 17 134/75 92 O2 Del Method O2 Flow Rate 05/01/22 16:32 05/01/22 16:00 05/01/22 15:32 Nasal Cannula 5 05/01/22 12:37 Nasal Cannula 5 05/01/22 08:00 05/01/22 07:16 High Flow Nasal Cannula 5 05/01/22 07:09 High Flow Nasal Cannula 5 (1) CHF (congestive heart failure) Heart failure chronicity: unspecified Heart failure type: unspecified Qualified Code(s): I50.9 - Heart failure, unspecified
[2022-05-01] MEDS ORDERED: METOPROLOL TARTRATE 1 MG/ML VIAL IV ONE (18:46)
[2022-05-01] MEDS: METOPROLOL SUCC 25MG EXT REL TAB PO ONE ×2 (19:09→19:38)
[2022-05-01 19:21] LABS: Basophils # (auto) 0.01 K/uL (0-0.2); Basophils % (auto) 0.2 %; Eosinophils # (auto) 0.07 K/uL (0-0.50); Eosinophils % (auto) 1.3 %; Hemoglobin 9.1 g/dl (14.0-18.0); Immature Granulocytes # (auto) 0.09 K/uL (0.00-0.02); Immature Granulocytes % (auto) 1.7 %; Lymphocytes # (auto) 0.39 K/uL (1.2-3.4); Lymphocytes % (auto) 7.2 %; Mean Corpuscular Hemoglobin 30.7 pg (25.0-34.0); Mean Corpuscular Hgb Conc 32.5 g/dL (32.0-36.0); Mean Corpuscular Volume 94.6 fL (80.0-100.0); Mean Platelet Volume 10.3 fL (9.4-12.4); Monocytes # (auto) 0.51 K/uL (0.24-0.82); Monocytes % (auto) 9.4 %; Neutrophils # (auto) 4.38 K/uL (1.4-6.5); Neutrophils % (auto) 80.2 %; Platelet Count 201 K/uL (130-400); RDW Coefficient of Variation 14.7 % (11.5-14.5); Red Blood Count 2.96 M/uL (4.63-6.08); White Blood Count 5.45 K/ul (4.8-10.8)
--- NOTE | 2022-05-01 19:24 | Communication Note ---
Date of Service: May 01, 2022 Notified by nurse that patient went back into A fib with RVR with associated hypotension. HR later improved to high 90s to low 100s with improvement in BP to 93/55. Patient reports feeling palpitations currently but was asleep earlier when he first went into A fib. Repeat labwok (CBC, BMP, Mg) were ordered and are pending 7pm Toprol 25mg was held due to hypotension--> will administer now. will sign out to night hospitalist
[2022-05-01 19:59] LABS: Troponin I High Sensitivity 33.7 pg/ml (0-20)
[2022-05-01] MEDS: LANTUS PER UNIT CHARGE SQ SCH (20:44)
[2022-05-01 20:48] LABS: Calcium 8.8 mg/dl (8.5-10.1); Creatinine Clr Calc Pharmacy 62.3 ml/min; Est GFR (Non-African American) 73.3 ml/min; Magnesium 1.9 mg/dl (1.7-2.4); Potassium 4.3 mmol/L (3.5-5.1)
[2022-05-01] MEDS: MoRPHine SULFATE IR 15 MG TAB (IMMEDIATE RELEASE) PO PRN (21:17)
[2022-05-01] MEDS: MELATONIN 3 MG TAB PO PRN (21:17)
[2022-05-02 06:35] LABS: Albumin Level 3.2 gm/dl (3.4-5.0); BUN Creatinine Ratio 35.8 (10-20); Bilirubin,Total 0.6 mg/dl (0.2-1.0); Calcium 8.6 mg/dl (8.5-10.1); Creatinine Clr Calc Pharmacy 65.6 ml/min; Est GFR (African American) 90.4 ml/min; Globulin 3.2 gm/dl (2.5-4.0); Total Protein 6.4 gm/dl (6.0-8.3)
[2022-05-02] MEDS: GABAPENTIN 300 MG CAP PO SCH (08:21)
[2022-05-02] MEDS: FERROUS SULFATE 325 MG TAB PO SCH (08:21)
[2022-05-02] MEDS: CYANOCOBALAMIN (B-12) 500 MCG TABLET PO SCH (08:21)
[2022-05-02] MEDS: POLYETHYLENE (MIRALAX) 17 GM PACK PO SCH (08:21)
[2022-05-02] MEDS: ACYCLOVIR 400 MG TAB PO SCH ×2 (08:21→19:29)
[2022-05-02] MEDS: TORSEMIDE 10 MG TAB PO SCH (08:21)
[2022-05-02] MEDS: METOPROLOL SUCC 25MG EXT REL TAB PO SCH (08:21)
[2022-05-02] MEDS: DOCUSATE SODIUM/SENNA 50/8.6MG TAB PO SCH ×2 (08:22→19:29)
[2022-05-02] MEDS: ASPIRIN 81 MG ECTAB PO SCH (08:22)
[2022-05-02] MEDS: APIXABAN 5 MG TABLET PO SCH ×2 (08:22→19:28)
[2022-05-02] MEDS: LOSARTAN POTASSIUM 25 MG TAB PO SCH (08:22)
[2022-05-02] MEDS: POTASSIUM CHLORIDE CRTAB 20 MEQ TABCR PO SCH (08:23)
[2022-05-02] MEDS: ISOSORBIDE MONO EXTENDED REL 30 MG TABCR PO SCH (08:23)
[2022-05-02] MEDS: DOCUSATE SODIUM 100 MG CAP PO SCH ×2 (08:30→19:29)
[2022-05-02] MEDS: INSULIN ASPART PER UNIT SC SCH ×4 (08:30→20:43)
--- NOTE | 2022-05-02 10:15 | Gastrointestinal Consultation ---
Date of Consultation May 02, 2022 Assessment & Plan (1) Elevated liver function tests: Patient with a history of congestive heart failure and atrial fibrillation admitted with a fever of unknown origin. The patient's white blood cell count is within normal limits although his liver enzymes are elevated I suspect this is either related to congestive hepatopathy or perhaps his region atrial fibrillation. Would recommend a proBNP and you could further do evaluation for choledocholithiasis with an MRCP. His history another possibility would be medication reaction or perhaps use of acetaminophen Recommendations Stop acetaminophen proBNP MRCP Please call with questions History of Present Illness Reason for Consultation: Elevated liver tests Attending Physician: Heriberto Mcgee MD History of Present Illness The patient is a 76-year-old male with a history of multiple problems to include congestive heart failure and multiple myeloma who was admitted over 1 week ago for complications related to hypotension, hypoxia and atrial fibrillation. The patient denies having nausea vomiting abdominal discomfort fevers at the present time or sweats. He was seen for a fever of unknown origin and has been on empiric antibiotic coverage for what appears to be several days. The patient denies any prior intra-abdominal surgeries or prior cholecystectomy. Allergies Allergy/AdvReac Type Severity Reaction Status Date / Time tizanidine Allergy Unknown Unknown Verified 04/16/22 15:19 Home Medications Medication Instructions Recorded Confirmed Type acetaminophen 650 mg 650 mg PO Q8H PRN Pain 09/28/19 04/22/22 History tablet,extended release (Tylenol Arthritis Pain) aspirin 81 mg tablet,delayed 81 mg PO DAILY 09/28/19 04/22/22 History release apixaban 5 mg tablet (Eliquis) 5 mg PO BID 06/25/20 04/22/22 History atorvastatin 40 mg tablet 40 mg PO DAILY 06/25/20 04/22/22 History insulin glargine 100 unit/mL (3 40 unit subcut QPM 06/25/20 04/22/22 History mL) subcutaneous pen (Basaglar KwikPen U-100 Insulin) isosorbide mononitrate 30 mg 30 mg PO DAILY 06/25/20 04/22/22 History tablet,extended release 24 hr liraglutide 0.6 mg/0.1 mL (18 mg/3 1.2 mg subcut DAILY 09/30/21 04/22/22 History mL) subcutaneous pen injector (Victoza 2-Jed) ondansetron 8 mg disintegrating 8 mg PO Q8H PRN Nausea 09/30/21 04/22/22 History tablet prochlorperazine maleate 10 mg 10 mg PO Q6H PRN nausea 09/30/21 04/22/22 History tablet polyethylene glycol 3350 17 gram 17 g PO DAILY PRN constipation #15 10/05/21 04/22/22 Rx oral powder packet (Miralax) ea torsemide 20 mg tablet 10 mg PO QAM #30 tabs 10/10/21 04/22/22 Rx dexamethasone 4 mg tablet 20 mg PO WK 11/01/21 04/22/22 History insulin aspart U-100 100 unit/mL 0 unit subcut UD 11/01/21 04/22/22 History (3 mL) subcutaneous pen (Novolog Flexpen U-100 Insulin aspart) nitroglycerin 0.4 mg sublingual 0.4 mg sublingual .Q 5 MIN PRN 11/01/21 04/22/22 History tablet Chest Pain omega-3 fatty acids 1,000 mg 1,000 mg PO BID 04/15/22 04/22/22 History capsule metoprolol succinate 50 mg 75 mg PO DAILY 04/16/22 04/22/22 History tablet,extended release 24 hr (Toprol XL) acyclovir 400 mg tablet 400 mg PO BID 04/22/22 04/22/22 History docusate sodium 100 mg capsule 100 mg PO BID 04/22/22 04/22/22 History (Colace) doxycycline hyclate 100 mg tablet 25 mg PO BID 04/22/22 04/22/22 History ferrous sulfate 325 mg (65 mg 325 mg PO DAILY 04/22/22 04/22/22 History iron) tablet gabapentin 300 mg capsule 300 mg PO DAILY 04/22/22 04/22/22 History mecobalamin (vitamin B12) 1,000 1,000 mcg PO DAILY 04/22/22 04/22/22 History mcg chewable tablet (B12 Active) morphine 15 mg immediate release 15 mg PO Q6H PRN Pain 04/22/22 04/22/22 History tablet potassium chloride 10 mEq 10 meq PO DAILY 04/22/22 04/22/22 History capsule,extended release Patient History Medical History Atrial fibrillation continue eliquis and high dose metoprolol CAD (coronary artery disease) Hallux rigidus of left foot "S/p multiple surgeries" History of basal cell carcinoma History of melanoma in situ History of pilonidal cyst HLD (hyperlipidemia) Pacemaker Peripheral vascular disease of lower extremity Tachy-noman syndrome Pt admitted for elective ppm due to TBS; underwent procedure without any complications; monitored overnight and discharged home. Type 2 diabetes mellitus Surgical History History of bone marrow biopsy History of cataract surgery History of foot surgery S/P CABG x 4 S/P Mohs surgery for basal cell carcinoma Family History Mother Lymphoma Social History Smoking Status: Former smoker Tobacco Type: Cigarettes Cigarettes Per Day: 1-2 times a month; Smoking End Date: 1979; Number of Years Since Quit: 40; Second Hand Exposure: No; Hx Alcohol Use: No Hx Substance Use: No Preferred Language: Colombian Communication Ability: Effective Hospital Administrative Assistant Required: No Beliefs That Will Affect Care: None marital status: Current Living Situation: Spouse current occupational status: retired Other Information That Helps Us Care for You: No Feels Safe at Home: Yes Safety Concerns: Feels Safe At This Time Assistive Devices: Cane and Walker Review of Systems Constitutional: + fever; no chills and no sweats Eyes: no diplopia Ear, Nose, Mouth, Throat: no ear pain and no ear trauma Respiratory: + dyspnea; no change in sputum and no hemoptysis Cardiovascular: no chest pain with activity Gastrointestinal: no abdominal pain, no belching, no bloating, no heartburn, no nausea and no vomiting Genitourinary: no dysuria or no urinary frequency Musculoskeletal: no back pain and no radicular pain Integumentary: no rash and no skin ulcer Neurologic: no falls Endocrine: + fatigue; no polydipsia and no cold intolerance Hematologic / Lymphatic: multiple myeloma Physical Exam Eyes: PERRL, conjunctivae normal, anicteric sclerae Neck: trachea midline, no thyromegaly Respiratory: Auscultation: + diminished lung sounds; no crackles, no rales and no wheezes Cardiovascular: Heart Sounds: + murmur Gastrointestinal (Abdomen): Percussion/Palpation: abdomen soft; abdomen nontender, no guarding, abdomen not rigid and no hepatosplenomegaly Skin: no rashes, warm and dry Results & Data ([facility]) Vital Signs (Past 12 Hours) Vital Signs Temp Pulse Pulse Pulse Resp BP BP 05/02/22 08:53 05/02/22 08:00 70 05/02/22 06:21 71 05/02/22 06:11 80 05/02/22 07:09 37.0 C 69 17 126/52 L 05/02/22 03:54 36.9 C 67 20 92/45 L 05/01/22 23:48 36.9 C 75 20 92/60 L 05/01/22 23:08 73 Pulse Ox O2 Del Method O2 Flow Rate 05/02/22 08:53 Nasal Cannula 3 05/02/22 08:00 05/02/22 06:21 05/02/22 06:11 05/02/22 07:09 98 Nasal Cannula 5 05/02/22 03:54 96 Nasal Cannula 7 05/01/22 23:48 96 Nasal Cannula 7 05/01/22 23:08 Laboratory Results Laboratory Results - last 24 hr 05/01/22 05/01/22 05/01/22 11:37 12:56 16:27 WBC RBC Hgb Hct MCV MCH MCHC RDW Std Deviation RDW Coeff of Collin Plt Count MPV Immature Gran % (Auto) Neut % (Auto) Lymph % (Auto) Wetzel % (Auto) Eos % (Auto) Baso % (Auto) Neut # (Auto) Lymph # (Auto) Wetzel # (Auto) Eos # (Auto) Baso # (Auto) Immature Gran # (Auto) Sodium Potassium Chloride Carbon Dioxide Anion Gap BUN Creatinine Est Cr Clr Drug Dosing Est GFR ( Amer) Est GFR (Non-Af Amer) BUN/Creatinine Ratio Glucose POC Glucose 229 H 192 H Calcium Magnesium Total Bilirubin AST ALT Alkaline Phosphatase Troponin I High Sens Total Protein Albumin Globulin Albumin/Globulin Ratio Procalcitonin 0.26 05/01/22 05/01/22 05/01/22 19:03 19:04 20:31 WBC 5.45 RBC 2.96 L Hgb 9.1 L Hct 28.0 L MCV 94.6 MCH 30.7 MCHC 32.5 RDW Std Deviation 51.0 H RDW Coeff of Collin 14.7 H Plt Count 201 MPV 10.3 Immature Gran % (Auto) 1.7 Neut % (Auto) 80.2 Lymph % (Auto) 7.2 Wetzel % (Auto) 9.4 Eos % (Auto) 1.3 Baso % (Auto) 0.2 Neut # (Auto) 4.38 Lymph # (Auto) 0.39 L Wetzel # (Auto) 0.51 Eos # (Auto) 0.07 Baso # (Auto) 0.01 Immature Gran # (Auto) 0.09 H Sodium 136 Potassium 4.3 Chloride 101 Carbon Dioxide 23 Anion Gap 12 H BUN 33 H Creatinine 1.00 Est Cr Clr Drug Dosing 62.3 Est GFR ( Amer) 85.0 Est GFR (Non-Af Amer) 73.3 BUN/Creatinine Ratio 33.0 H Glucose 234 H POC Glucose 202 H Calcium 8.8 Magnesium 1.9 Total Bilirubin AST ALT Alkaline Phosphatase Troponin I High Sens 33.7 H D Total Protein Albumin Globulin Albumin/Globulin Ratio Procalcitonin 05/02/22 05/02/22 05:56 07:11 WBC RBC Hgb Hct MCV MCH MCHC RDW Std Deviation RDW Coeff of Collin Plt Count MPV Immature Gran % (Auto) Neut % (Auto) Lymph % (Auto) Wetzel % (Auto) Eos % (Auto) Baso % (Auto) Neut # (Auto) Lymph # (Auto) Wetzel # (Auto) Eos # (Auto) Baso # (Auto) Immature Gran # (Auto) Sodium 137 Potassium 4.0 Chloride 103 Carbon Dioxide 25 Anion Gap 9 BUN 34 H Creatinine 0.95 Est Cr Clr Drug Dosing 65.6 Est GFR ( Amer) 90.4 Est GFR (Non-Af Amer) 78.0 BUN/Creatinine Ratio 35.8 H Glucose 144 H POC Glucose 155 H Calcium 8.6 Magnesium Total Bilirubin 0.6 AST 176 H ALT 350 H Alkaline Phosphatase 139 H Troponin I High Sens Total Protein 6.4 Albumin 3.2 L Globulin 3.2 Albumin/Globulin Ratio 1.0 Procalcitonin Diagnostic Findings ULTRASOUND RIGHT UPPER QUADRANT ABDOMEN CLINICAL HISTORY: Elevated hepatic transaminases. COMPARISON STUDY: No priors. TECHNIQUE: Real-time, grayscale, and color flow sonography of the right upper quadrant of the abdomen was performed. Images are reviewed in the transverse and longitudinal planes. FINDINGS: Liver: The liver is normal in size and echotexture. There is no intrahepatic biliary ductal dilatation. The main portal vein is patent. Gallbladder: The gallbladder is contracted and grossly unremarkable. No shadowing gallstones are identified. There is no gallbladder wall thickening or pericholecystic fluid. A sonographic De Paz's sign is reportedly absent. The common bile duct measures up to 0.5 cm in diameter. Pancreas: Not well visualized due to overlying bowel gas. Right kidney: Survey images of the right kidney demonstrate normal size and echotexture. There is no hydronephrosis. A 2 cm cyst is incidentally noted. Ascites: None. IMPRESSION: 1. The liver is normal in size and echotexture. 2. No gallstones are seen.
--- NOTE | 2022-05-02 11:13 | Electrocardiogram Report ---
Test Reason : Blood Pressure : / mmHG Vent. Rate : 105 BPM Atrial Rate : 468 BPM P-R Int : 000 ms QRS Dur : 100 ms QT Int : 340 ms P-R-T Axes : 000 080 258 degrees QTc Int : 449 ms Atrial fibrillation with rapid ventricular response Voltage criteria for left ventricular hypertrophy Abnormal ECG When compared with ECG of 25-APR-2022 06:26, Significant changes have occurred Confirmed by Dutch Dela Cruz ([id number] on 05/02/2022 11:13:15 AM Referred By: REFERRED SELF Confirmed By:Dutch Dela Cruz
--- NOTE | 2022-05-02 16:37 | Hospitalist Progress Note ---
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 He is being managed for the following: #. Fever/ ?Sepsis- source ?respiratory. Patient presented with fever, hypotension and lactic acidosis. Normal WBC, elevated procal. Blood clx negative, urine clx negative, 04/23 fungal blood clx pending. Lyme negative, anaplasma pending but already on doxy. - Last febrile 04/25 AM. Normal WBC. Procal trending down 0.78->0.4 - Seen by ID- recommendations noted- Vanc discontinued, Continue zosyn x 7days; and doxy. ID recommended bronchoscopy and BAL as legionella negative. Per Pulm- since temperature stabilized and patient clinically improving, no plans for bronchoscopy as of now. -Status post 7 days of Zosyn and 10 days of doxycycline. #. Acute hypoxemic respiratory failure with diffuse pulmonary infiltrates- ?atypical infection vs pulm edema. Resp Biofire negative. #. Ac on Chr HFrEF: 04/22 ECHO w/ EF 40-45%. Cardiology evaluated>metoprolol 75 mg daily, Losartan 12.5 mg daily, Torsemide increased to 20 mg daily, Digoxin 0.25 mg daily. KCl 40 meq daily. FR 1800 ml/day. - Not on home O2 prior. S/p HFNC and bipap, now on 3 to 5 L oxygen. No plans for bronchoscopy currently. - CXR 05/01 improved from admission - Continue supplemental oxygen, wean down as tolerated. -Monitor electrolytes, BMP in a.m. FR 1800ml. Monitor I/O, balance is negative. - Currently on 3-5 L NC O2, will need 2 step prior to DC. 04/22 CTA chest- 1. No CTA evidence for pulmonary embolus. 2. Marked bullous emphysematous changes involving the upper lobes bilaterally, right greater than left. 3. The bilateral airspace opacities actually represent preserved lung with groundglass opacity present. This most likely represents mild alveolar edema. 4. No confluent alveolar opacities were bronchograms are seen. 5. Cardiomegaly with extensive coronary artery calcification and atherosclerotic calcification of the aorta. #. Trop elevation- Per cardio, likely demand ischemia due to hypoxia and resp failure rather than NSTEMI. Echo noted. Cardiology evaluated. #. Paroxysmal Afib with RVR- had an A. fib started in the evening of 05/01, converted to NSR. Amio drip has been discontinued. Digoxin has been added 04/23. Metoprolol increased to 75 mg daily. Home eliquis on resumed 04/27. #. Acute on chronic diastolic CHF- continue diuresis, daily weight, continue I and Os measurement. Diuresis per cardio. will continue w/ electrolyte monitoring and repletion as appropriate. H/o CAD w/ hx of CABG x 4. Tachybrady syndrome s/p PPM Fall with forehead contusion and generalized weakness- CT head/C spine negative for acute abnormality. PT OT . IDDM 2- A1c 6.7 12/15/21. Continue lantus/novolog per protocol L diabetic heel wound- established with wound care. WOCN eval Multiple myeloma with lytic bone lesions- Follows [facility] oncology, Dr. Garcia. Last treatment of Velcade was 04/21, receiving weekly. Holding revlimid and velcade. Anemia- Hb dropped to 7 from 9 on admission. No overt bleeding noted ?related to his acute illness and underlying MM. S/p 1 U PRBC, Hb improved to 8.6. Continue to monitor. Hb 9->7.2->7->8.6->8.4->8.3->8.5->8.6 #. Transaminitis- AST/ALT again uptrending, ?? 2/2 recent zosyn use, 04/30 Liver US wnl, 04/30 hep panel negative, no RUQ pain, non-icteric, BNP improving and 166 [not very high to begin with]. Continue to hold lipitor and tylenol. Recheck in am. GI on board, recommends MRCP. #. Constipation- s/p relistor 04/24 and had BM. s/p relistor 04/28 w/ BM on 04/29 AM. Continue bowel regimen. DVT ppx: Eliquis Dispo- Wean down as tolerated. Will likely require supplemental oxygen at discharge- will need 2 step O2 eval closer to discharge. Awaiting placement for Wednesday, Cardiac meds optimization going on. Admission and Anticipated Discharge Date Admission Date: April 22, 2022 Subjective Patient seen and examined at bedside as a follow-up of fever of unknown origin, acute hypoxemic respiratory failure with diffuse pulmonary infiltrates and paroxysmal A. fib with RVR and acute on chronic diastolic CHF. Patient was lying in bed, on 3 L nasal cannula oxygen, NAD, had an A. fib with RVR with heart rate up to 120 yesterday evening, was a symptomatic, not aware whether ICD fired or not, soft blood pressure, heart rate self improved to 90s to low 100s within half an hour. Patient stayed on heart rate of 70s to 90s overnight and in the morning. Patient converted to NSR at 6:38 AM today. Upon telemetry review, ICD did not fire. Patient has similar appetite as usual, looks worked up, no increased shortness of breath today per patient, reports dry cough today, is not greatly interested in having conversation as usual, last BM 04/29, denies chest pain/headache/dizziness/sore throat/palpitation/other review of symptoms. Physical Exam Physical Exam: GENERAL: Alert and oriented x3. NAD, on 3 L NC O2. HEENT: No pallor, no icterus. Pupils equal, round and reactive to light. Oral mucosa moist. NECK: No JVD, no neck masses. HEART: S1 and S2 heard. Regular rate and rhythm. No murmur, no gallop. RESPIRATORY SYSTEM: Normal AP diameter. No accessory muscle use. No wheezing, decreased breath sounds ABDOMEN: Soft, bowel sounds present, nontender, no distention. CENTRAL NERVOUS SYSTEM: No facial droop. Speech is clear. Obeys simple commands. Moves extremities. EXTREMITIES: No edema, no erythema seen. UC in situ, w/ yellow urine collection noted. Results & Data Results & Data ([facility]) Vital Signs (Past 12 Hours) Vital Signs Temp Pulse Pulse Pulse Resp BP Pulse Ox 05/02/22 15:07 37 C 89 18 99/45 L 95 05/02/22 14:49 68 05/02/22 11:08 37.0 C 69 17 126/54 L 92 05/02/22 08:53 05/02/22 08:00 70 05/02/22 06:21 71 05/02/22 06:11 80 05/02/22 07:09 37.0 C 69 17 126/52 L 98 O2 Del Method O2 Flow Rate 05/02/22 15:07 Nasal Cannula 3 05/02/22 14:49 05/02/22 11:08 Nasal Cannula 5 05/02/22 08:53 Nasal Cannula 3 05/02/22 08:00 05/02/22 06:21 05/02/22 06:11 05/02/22 07:09 Nasal Cannula 5 (1) CHF (congestive heart failure) Heart failure chronicity: unspecified Heart failure type: unspecified Qualified Code(s): I50.9 - Heart failure, unspecified
[2022-05-02] MEDS: DIGOXIN 0.25 MG TAB PO SCH (16:52)
[2022-05-02] MEDS: LANTUS PER UNIT CHARGE SQ SCH (20:44)
[2022-05-02] MEDS: MoRPHine SULFATE IR 15 MG TAB (IMMEDIATE RELEASE) PO PRN (21:47)
[2022-05-02] MEDS: MELATONIN 3 MG TAB PO PRN (21:47)
[2022-05-03] MEDS: MoRPHine SULFATE IR 15 MG TAB (IMMEDIATE RELEASE) PO PRN ×2 (04:24→21:33)
[2022-05-03 07:05] LABS: Hematocrit (blood only) 25.5 % (40.1-51.0); Hemoglobin 8.1 g/dl (14.0-18.0); Mean Corpuscular Hemoglobin 30.2 pg (25.0-34.0); Mean Corpuscular Hgb Conc 31.8 g/dL (32.0-36.0); Mean Corpuscular Volume 95.1 fL (80.0-100.0); Mean Platelet Volume 10.6 fL (9.4-12.4); Platelet Count 206 K/uL (130-400); RDW Coefficient of Variation 14.8 % (11.5-14.5); RDW Standard Deviation 51.9 fL (36.4-46.3); Red Blood Count 2.68 M/uL (4.63-6.08); White Blood Count 5.57 K/ul (4.8-10.8)
[2022-05-03 07:30] LABS: BUN Creatinine Ratio 37.7 (10-20); Bilirubin,Total 0.6 mg/dl (0.2-1.0); Calcium 8.6 mg/dl (8.5-10.1); Creatinine Clr Calc Pharmacy 59.4 ml/min; Est GFR (African American) 79.2 ml/min; Est GFR (Non-African American) 68.3 ml/min; Globulin 2.9 gm/dl (2.5-4.0); Magnesium 1.9 mg/dl (1.7-2.4); Phosphorus 4.2 mg/dl (2.5-4.9); Potassium 4.2 mmol/L (3.5-5.1); Total Protein 5.9 gm/dl (6.0-8.3)
--- NOTE | 2022-05-03 08:30 | Gastroenterology Progress Note ---
Date of Service May 03, 2022 Assessment & Plan (1) Elevated liver function tests: Plan: GI was consulted for evaluation of elevated liver enzymes. Unfortunately the patient does have a pacemaker therefore would suggest a transition to obtain a CT of the abdomen with IV contrast if possible. I would also recommend a CPK to determine if the AST ALT elevation may be related to muscle enzymes. Further would suggest an LDH and haptoglobin. Recommendation MRCP preferred, if not possible due to pacer would recommend contrast-enhanced CT of the abdomen CPK LDH and haptoglobin Consider having a hematology evaluation Admission and Anticipated Discharge Date Admission Date: April 22, 2022 Subjective I saw the patient this morning, overall he states he is having no specific problems today. He notes that he is tolerating p.o. without any difficulty, he denies having nausea or abdominal pain or muscle pains at the present time. Review of Systems Constitutional: no sweats and no malaise Eyes: no diplopia Ear, Nose, Mouth, Throat: no ear trauma Respiratory: no change in sputum and no hemoptysis Physical Exam Constitutional: + thin Eyes: no scleral abnormality Respiratory: Auscultation: + diminished lung sounds Cardiovascular: Heart Sounds: + murmur Gastrointestinal (Abdomen): Percussion/Palpation: abdomen soft; abdomen nontender and no guarding Results & Data ([facility]) Vital Signs (Past 12 Hours) Vital Signs Temp Pulse Pulse Resp BP Pulse Ox O2 Del Method 05/03/22 07:26 60 05/03/22 07:06 37.3 C 60 19 106/48 L 97 Nasal Cannula 05/03/22 02:39 36.9 C 61 20 125/49 L 95 Nasal Cannula 05/02/22 23:43 36.5 C 61 20 119/48 L 93 Nasal Cannula 05/02/22 23:07 80 O2 Flow Rate 05/03/22 07:26 05/03/22 07:06 3 05/03/22 02:39 3.0 05/02/22 23:43 3.0 05/02/22 23:07 Laboratory Results Laboratory Results - last 24 hr 05/02/22 05/02/22 05/02/22 11:10 14:11 16:24 WBC RBC Hgb Hct MCV MCH MCHC RDW Std Deviation RDW Coeff of Collin Plt Count MPV Sodium Potassium Chloride Carbon Dioxide Anion Gap BUN Creatinine Est Cr Clr Drug Dosing Est GFR ( Amer) Est GFR (Non-Af Amer) BUN/Creatinine Ratio Glucose POC Glucose 291 H 143 H Calcium Phosphorus Magnesium Total Bilirubin AST ALT Alkaline Phosphatase B-Natriuretic Peptide 166 H Total Protein Albumin Globulin Albumin/Globulin Ratio 05/02/22 05/03/22 05/03/22 20:23 06:15 06:15 WBC 5.57 RBC 2.68 L Hgb 8.1 L Hct 25.5 L MCV 95.1 MCH 30.2 MCHC 31.8 L RDW Std Deviation 51.9 H RDW Coeff of Collin 14.8 H Plt Count 206 MPV 10.6 Sodium 136 Potassium 4.2 Chloride 101 Carbon Dioxide 26 Anion Gap 9 BUN 40 H Creatinine 1.06 Est Cr Clr Drug Dosing 59.4 Est GFR ( Amer) 79.2 Est GFR (Non-Af Amer) 68.3 BUN/Creatinine Ratio 37.7 H Glucose 95 POC Glucose 143 H Calcium 8.6 Phosphorus 4.2 Magnesium 1.9 Total Bilirubin 0.6 AST 310 H ALT 450 H Alkaline Phosphatase 156 H B-Natriuretic Peptide Total Protein 5.9 L Albumin 3.0 L Globulin 2.9 Albumin/Globulin Ratio 1.0 05/03/22 07:29 WBC RBC Hgb Hct MCV MCH MCHC RDW Std Deviation RDW Coeff of Collin Plt Count MPV Sodium Potassium Chloride Carbon Dioxide Anion Gap BUN Creatinine Est Cr Clr Drug Dosing Est GFR ( Amer) Est GFR (Non-Af Amer) BUN/Creatinine Ratio Glucose POC Glucose 101 H Calcium Phosphorus Magnesium Total Bilirubin AST ALT Alkaline Phosphatase B-Natriuretic Peptide Total Protein Albumin Globulin Albumin/Globulin Ratio
[2022-05-03] MEDS: APIXABAN 5 MG TABLET PO SCH ×2 (08:41→21:33)
[2022-05-03] MEDS: POTASSIUM CHLORIDE CRTAB 20 MEQ TABCR PO SCH (08:41)
[2022-05-03] MEDS: ACYCLOVIR 400 MG TAB PO SCH ×2 (08:41→21:33)
[2022-05-03] MEDS: TORSEMIDE 10 MG TAB PO SCH (08:42)
[2022-05-03] MEDS: DOCUSATE SODIUM/SENNA 50/8.6MG TAB PO SCH ×2 (08:42→21:33)
[2022-05-03] MEDS: ASPIRIN 81 MG ECTAB PO SCH (08:42)
[2022-05-03] MEDS: CYANOCOBALAMIN (B-12) 500 MCG TABLET PO SCH (08:43)
[2022-05-03] MEDS: METOPROLOL SUCC 25MG EXT REL TAB PO SCH (08:43)
[2022-05-03] MEDS: ISOSORBIDE MONO EXTENDED REL 30 MG TABCR PO SCH (08:44)
[2022-05-03] MEDS: LOSARTAN POTASSIUM 25 MG TAB PO SCH (08:44)
[2022-05-03] MEDS: POLYETHYLENE (MIRALAX) 17 GM PACK PO SCH (08:45)
[2022-05-03] MEDS: FERROUS SULFATE 325 MG TAB PO SCH (08:45)
[2022-05-03] MEDS: GABAPENTIN 300 MG CAP PO SCH (08:45)
[2022-05-03] MEDS: INSULIN ASPART PER UNIT SC SCH ×4 (08:46→21:35)
[2022-05-03] MEDS: DOCUSATE SODIUM 100 MG CAP PO SCH ×2 (08:53→21:33)
[2022-05-03] MEDS ORDERED: OPTIRAY 320 100ml IV ONE (10:56)
--- NOTE | 2022-05-03 11:13 | CT Scan Report ---
CT SCAN OF THE ABDOMEN WITH IV CONTRAST CLINICAL HISTORY: Elevated hepatic transaminases. Multiple myeloma. COMPARISON STUDY: Abdominal ultrasound dated 04/30/2022. Chest CT dated 04/22/2022. TECHNIQUE: Following the IV administration of 93 cc of Optiray 320, CT scan of the abdomen is perfor med from the lung bases to the pelvic inlet. Images are reviewed in the axial, sagittal, and coronal planes. IV contrast was administered without complication. A dose lowering technique was utilized adh ering to the principles of ALARA. CT DOSE: 247.14 mGy.cm FINDINGS: Lung bases: The patient is status post midline sternotomy. The heart is enlarged and without pericard ial effusion. Pacemaker leads are noted. The coronary arteries are densely calcified. Emphysematous c hange is noted. There is patchy airspace consolidation at both lung bases, left greater than right. T his is new from 04/22/2022. No pleural effusion is identified. Liver: The contrast-enhanced liver is normal in size, contour, and attenuation. There is no intrahepa tic biliary ductal dilatation. The hepatic veins and portal veins are patent. Gallbladder: Unremarkable. Spleen: Normal in size and attenuation. Pancreas: A surgical clip is seen adjacent to pancreatic head. An indeterminant 12 mm cystic lesion i n the pancreatic head is suggested on image #147. Subcentimeter cystic lesions in the pancreatic tail are seen on images #113 and #115. 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 The duct is normal in abril iber. The pancreas is otherwise normal as visualized. Adrenal glands: Unremarkable. Kidneys: The contrast enhanced kidneys demonstrate cortical atrophy and are without hydronephrosis. T he kidneys enhance symmetrically. Renal cysts measure up to 2.6 cm. Additional subcentimeter cortical hypodensities also likely represent cysts but are too small for definitive characterization. No enha ncing renal mass lesion is clearly identified. Abdominal vasculature: The abdominal aorta is normal in course and caliber noting advanced atheroscle rotic calcification. Bowel: Imaged portions of the small bowel and colon show no evidence of obstruction. There is moderat e colonic fecal retention. Imaged portions of the the partially visualized appendix are normal in rowan earance. Peritoneum: There is no intraperitoneal free air or abdominal ascites. There is a fat-containing umbi lical hernia. Lymphadenopathy: A prominent left periaortic node on image #139 measures 7 mm short axis. Skeletal structures: The skeletal structures are osteopenic. There is evidence of multifocal mixed os teolytic metastatic disease. There are chronic appearing bilateral rib fractures. IMPRESSION: 1. Normal CT appearance of the liver. 2. Multifocal osteolytic metastatic disease is consistent with the patient's known history of multipl e myeloma. 3. Mild airspace consolidation is seen at both lung bases. This is new from 04/22/2022 and suggests pne umonia/aspiration pneumonitis. Clinical correlation will be required and radiographic follow-up to re solution is recommended. 4. Cardiomegaly and emphysema. 5. Moderate constipation. 6. Additional findings as above. ACT 112: Negative or not required by law. Electronically signed by: Dante Lopez M.D. 05/03/2022 11:10 AM
[2022-05-03] MEDS: DIGOXIN 0.25 MG TAB PO SCH (16:53)
--- NOTE | 2022-05-03 17:29 | Hospitalist Progress Note ---
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 He is being managed for the following: #. Fever/ ?Sepsis- source ?respiratory. Patient presented with fever, hypotension and lactic acidosis. Normal WBC, elevated procal. Blood clx negative, urine clx negative, 04/23 fungal blood clx pending. Lyme negative, anaplasma pending but already on doxy. - Last febrile 04/25 AM. Normal WBC. Procal trended down. ID eval, status post Zosyn x7 days and Doxy x10 days. #. Acute hypoxemic respiratory failure with diffuse pulmonary infiltrates- ?at ypical infection vs pulm edema. Resp Biofire negative. #. Ac on Chr HFrEF: 04/22 ECHO w/ EF 40-45%. Cardiology evaluated>metoprolol 75 mg daily, Losartan 12.5 mg daily, Torsemide increased to 20 mg daily, Digoxin 0.25 mg daily. KCl 40 meq daily. FR 1800 ml/day. - Not on home O2 prior. S/p HFNC and bipap, now on 3 to 5 L oxygen. Will need 2-step prior to DC. - CXR 05/01 improved from admission - Continue supplemental oxygen, wean down as tolerated. - Monitor electrolytes, BMP in a.m. FR 1800ml. Monitor I/O, balance is negative. 04/22 CTA chest- 1. No CTA evidence for pulmonary embolus. 2. Marked bullous emphysematous changes involving the upper lobes bilaterally, right greater than left. 3. The bilateral airspace opacities actually represent preserved lung with groundglass opacity present. This most likely represents mild alveolar edema. 4. No confluent alveolar opacities were bronchograms are seen. 5. Cardiomegaly with extensive coronary artery calcification and atherosclerotic calcification of the aorta. #. Trop elevation- Per cardio, likely demand ischemia due to hypoxia and resp failure rather than NSTEMI. Echo noted. Cardiology evaluated. #. Paroxysmal Afib with RVR- had an A. fib started in the evening of 05/01, converted to NSR. Amio drip had been discontinued. Digoxin has been added 04/23. Metoprolol increased to 75 mg daily. Home eliquis on resumed 04/27. #. Acute on chronic diastolic CHF- continue diuresis, daily weight, continue I and Os measurement. Diuresis. will continue w/ electrolyte monitoring and repletion as appropriate. H/o CAD w/ hx of CABG x 4. Tachybrady syndrome s/p PPM Fall with forehead contusion and generalized weakness- CT head/C spine negative for acute abnormality. PT OT . IDDM 2- A1c 6.7 12/15/21. Continue lantus/novolog per protocol L diabetic heel wound- established with wound care. WOCN eval Multiple myeloma with lytic bone lesions- Follows [facility] oncology, Dr. Garcia. Last treatment of Velcade was 04/21, receiving weekly. Holding revlimid and velcade. Anemia- Hb dropped to 7 from 9 on admission. No overt bleeding noted ?related to his acute illness and underlying MM. S/p 1 U PRBC, Hb improved to 8.6. Continue to monitor. Hb 9->7.2->7->8.6->8.4->8.3->8.5->8.6 #. Transaminitis- AST/ALT again uptrending, ?? 2/2 recent zosyn use, 04/30 Liver US wnl, 04/30 hep panel negative, no RUQ pain, non-icteric, BNP improving and 166 [not very high to begin with]. Continue to hold lipitor and tylenol. Recheck in am. GI on board, CT abd w/ iv con 05/03 w/ no acute findings on liver. D/w GI, likely 2/2 drug vs 2/2 MM. Plan to f/u w/ GI as OP in 1-2 weeks and pt will need f/u w/ [employer] as OP. #. Constipation- s/p relistor 04/24 and had BM. s/p relistor 04/28 w/ BM on 04/29 AM. Continue bowel regimen. DVT ppx: Eliquis Dispo- Wean down as tolerated. Will likely require supplemental oxygen at discharge- will need 2 step O2 eval closer to discharge. Awaiting placement for Wednesday, pending LFT in AM. 05/03: updated patient's at bedside. Made aware need for f/u with GI and H ematologist. Answered all her questions to satisfaction. Admission and Anticipated Discharge Date Admission Date: April 22, 2022 Subjective Patient seen and examined at bedside as a follow-up of fever of unknown origin, acute hypoxemic respiratory failure with diffuse pulmonary infiltrates and paroxysmal A. fib with RVR and acute on chronic diastolic CHF. Patient was lying in bed, on 3 L nasal cannula oxygen, NAD, reports feeling better and some appetite improvement. Per RN, no new events overnight and he is doing well. Pt reports dry cough today, last BM 04/29, denies chest pain/headache/dizziness/sore throat/palpitation/other review of symptoms. Physical Exam Physical Exam: GENERAL: Alert and oriented x3. NAD, on 3 L NC O2. HEENT: No pallor, no icterus. Pupils equal, round and reactive to light. Oral mucosa moist. NECK: No JVD, no neck masses. HEART: S1 and S2 heard. Regular rate and rhythm. No murmur, no gallop. RESPIRATORY SYSTEM: Normal AP diameter. No accessory muscle use. No wheezing, decreased breath sounds ABDOMEN: Soft, bowel sounds present, nontender, no distention. CENTRAL NERVOUS SYSTEM: No facial droop. Speech is clear. Obeys simple commands. Moves extremities. EXTREMITIES: No edema, no erythema seen. UC in situ, w/ yellow urine collection noted. Results & Data Results & Data ([facility]) Vital Signs (Past 12 Hours) Vital Signs Temp Pulse Pulse Pulse Resp BP BP 05/03/22 16:53 71 05/03/22 15:28 67 05/03/22 15:09 37.5 C 64 17 101/48 L 05/03/22 11:22 36.7 C 68 12 101/43 L 05/03/22 08:00 05/03/22 07:26 60 05/03/22 07:06 37.3 C 60 19 106/48 L Pulse Ox O2 Del Method O2 Flow Rate 05/03/22 16:53 05/03/22 15:28 05/03/22 15:09 93 Nasal Cannula 3 05/03/22 11:22 97 Nasal Cannula 2 05/03/22 08:00 Nasal Cannula 1 05/03/22 07:26 05/03/22 07:06 97 Nasal Cannula 3 (1) CHF (congestive heart failure) Heart failure chronicity: unspecified Heart failure type: unspecified Qualified Code(s): I50.9 - Heart failure, unspecified
[2022-05-03] MEDS ORDERED: LANTUS PER UNIT CHARGE SQ SCH ×2 (21:00→21:15)
[2022-05-03] MEDS: MELATONIN 3 MG TAB PO PRN (21:33)
[2022-05-03] MEDS ORDERED: SODIUM CHLORIDE 0.9% 500 ML IV SCH (23:15)
[2022-05-04] MEDS ORDERED: SODIUM CHLORIDE 0.9% 500 ML IV SCH (00:15)
[2022-05-04 06:08] LABS: Hematocrit (blood only) 26.6 % (40.1-51.0); Hemoglobin 8.4 g/dl (14.0-18.0); Mean Corpuscular Hemoglobin 30.1 pg (25.0-34.0); Mean Corpuscular Hgb Conc 31.6 g/dL (32.0-36.0); Mean Corpuscular Volume 95.3 fL (80.0-100.0); Mean Platelet Volume 10.5 fL (9.4-12.4); Platelet Count 215 K/uL (130-400); RDW Coefficient of Variation 14.5 % (11.5-14.5); RDW Standard Deviation 51.1 fL (36.4-46.3); Red Blood Count 2.79 M/uL (4.63-6.08); White Blood Count 4.73 K/ul (4.8-10.8)
[2022-05-04 06:36] LABS: BUN Creatinine Ratio 33.9 (10-20); Bilirubin,Total 0.5 mg/dl (0.2-1.0); Calcium 8.5 mg/dl (8.5-10.1); Creatinine Clr Calc Pharmacy 55.1 ml/min; Est GFR (African American) 74.1 ml/min; Est GFR (Non-African American) 63.9 ml/min; Magnesium 1.9 mg/dl (1.7-2.4)
[2022-05-04] MEDS: INSULIN ASPART PER UNIT SC SCH ×2 (07:51→11:46)
[2022-05-04] MEDS: POLYETHYLENE (MIRALAX) 17 GM PACK PO SCH (08:22)
[2022-05-04] MEDS: DOCUSATE SODIUM/SENNA 50/8.6MG TAB PO SCH (08:22)
[2022-05-04] MEDS: POTASSIUM CHLORIDE CRTAB 20 MEQ TABCR PO SCH (08:22)
[2022-05-04] MEDS: APIXABAN 5 MG TABLET PO SCH (08:22)
[2022-05-04] MEDS: GABAPENTIN 300 MG CAP PO SCH (08:22)
[2022-05-04] MEDS: ACYCLOVIR 400 MG TAB PO SCH (08:22)
[2022-05-04] MEDS: ASPIRIN 81 MG ECTAB PO SCH (08:23)
[2022-05-04] MEDS: ISOSORBIDE MONO EXTENDED REL 30 MG TABCR PO SCH (08:23)
[2022-05-04] MEDS: TORSEMIDE 10 MG TAB PO SCH (08:23)
[2022-05-04] MEDS: FERROUS SULFATE 325 MG TAB PO SCH (08:23)
[2022-05-04] MEDS: CYANOCOBALAMIN (B-12) 500 MCG TABLET PO SCH (08:23)
[2022-05-04] MEDS: METOPROLOL SUCC 25MG EXT REL TAB PO SCH (08:23)
[2022-05-04] MEDS: LOSARTAN POTASSIUM 25 MG TAB PO SCH (08:24)
[2022-05-04] MEDS: DOCUSATE SODIUM 100 MG CAP PO SCH (08:29)
--- NOTE | 2022-05-04 09:44 | Gastroenterology Progress Note ---
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 GI asked to evaluate for elevated LFTs. No acute findings on CT abd ABD US Suspected elevation is secondary to DILI vs congestive hepatopathy or perhaps his region atrial fibrillation vs other Would continue to trend LFTs. Can follow up as an OP in 1-2 weeks and arrange full liver serology at that time. GI to sign off. Recall as needed. Admission and Anticipated Discharge Date Admission Date: April 22, 2022 Supervising Physician Co-Signing Physician Notes Patient discussed with MADISON Nelson. Patient not physically seen by me as he was discharged prior to my exam. Subjective Pt was seen and evaluated, chart reviewed. Feeling well from GI standpoint. Tolerating PO intake. Denies abd pain. No nausea, vomiting. No GERD. Moving bowels well. Denies black or bloody stools. CTAP 2021: Normal CT appearance of the liver.. Multifocal osteolytic metastatic disease is consistent with the patient's known history of multiple myeloma. Mild airspace consolidation is seen at both lung bases. This is new from 04/22/2022 and suggests pneumonia/aspiration pneumonitis. Clinical correlation will be required and radiographic follow-up to resolution is recommended. Cardiomegaly and emphysema. Moderate constipation. Additional findings as above. Review of Systems Review of Systems: All systems reviewed & are unremarkable except as noted in HPI & below Physical Exam Constitutional: WD/WN, vitals as above Neck: trachea midline, no thyromegaly Respiratory: normal respiratory effort; no respiratory distress and no labored breathing Cardiovascular: Rate/Rhythm: regular rate and regular rhythm Gastrointestinal (Abdomen): normal bowel sounds, soft, nontender, no hepatosplenomegaly Skin: no rashes, warm and dry Results & Data ([facility]) Vital Signs (Past 12 Hours) Vital Signs Temp Pulse Pulse Resp BP BP Pulse Ox 05/04/22 08:00 05/04/22 08:00 62 05/04/22 07:40 36.8 C 65 13 95/46 L 99 05/04/22 03:15 98 05/04/22 03:57 37.0 C 05/04/22 03:05 111/43 L 05/04/22 01:32 108/45 L 05/03/22 23:00 66 05/04/22 01:09 88/45 L 05/03/22 23:58 86/46 L 05/03/22 23:44 84/43 L 91/45 L 05/03/22 23:43 36.4 C 05/03/22 23:17 77 18 96/40 L 96 O2 Del Method O2 Flow Rate 05/04/22 08:00 Nasal Cannula 5 05/04/22 08:00 05/04/22 07:40 Nasal Cannula 5 05/04/22 03:15 Nasal Cannula 5 05/04/22 03:57 05/04/22 03:05 05/04/22 01:32 05/03/22 23:00 05/04/22 01:09 05/03/22 23:58 05/03/22 23:44 05/03/22 23:43 05/03/22 23:17 Nasal Cannula 5 Laboratory Results 05/04/22 05/04/22 05/04/22 Range/Units 07:19 05:45 05:45 WBC 4.73 L (4.8-10.8) K/ul RBC 2.79 L (4.63-6.08) M/uL Hgb 8.4 L (14.0-18.0) g/dl Hct 26.6 L (40.1-51.0) % MCV 95.3 (80.0-100.0) fL MCH 30.1 (25.0-34.0) pg MCHC 31.6 L (32.0-36.0) g/dL RDW Std Deviation 51.1 H (36.4-46.3) fL RDW Coeff of Collin 14.5 (11.5-14.5) % Plt Count 215 (130-400) K/uL MPV 10.5 (9.4-12.4) fL Haptoglobin Sodium 136 (136-145) mmol/L Potassium 4.0 (3.5-5.1) mmol/L Chloride 100 (98-107) mmol/L Carbon Dioxide 27 (21-32) mmol/L Anion Gap 9 (3-11) BUN 38 H (6-23) mg/dl Creatinine 1.12 (0.6-1.4) mg/dl Est Cr Clr Drug Dosing 55.1 ml/min Est GFR ( Amer) 74.1 ml/min Est GFR (Non-Af Amer) 63.9 ml/min BUN/Creatinine Ratio 33.9 H (10-20) Glucose 106 H (70-99(Fasting)) mg/dl POC Glucose 162 H (70-99) mg/dl Calcium 8.5 (8.5-10.1) mg/dl Magnesium 1.9 (1.7-2.4) mg/dl Total Bilirubin 0.5 (0.2-1.0) mg/dl AST 146 H (13-39) U/L ALT 321 H (7-52) U/L Alkaline Phosphatase 142 H (34-104) U/L Lactate Dehydrogenase (86-244) U/L Total Creatine Kinase (30-223) U/L Total Protein 6.0 (6.0-8.3) gm/dl Albumin 3.0 L (3.4-5.0) gm/dl Globulin 3.0 (2.5-4.0) gm/dl Albumin/Globulin Ratio 1.0 (0.9-2) 05/03/22 05/03/22 05/03/22 Range/Units 21:02 16:20 11:31 WBC (4.8-10.8) K/ul RBC (4.63-6.08) M/uL Hgb (14.0-18.0) g/dl Hct (40.1-51.0) % MCV (80.0-100.0) fL MCH (25.0-34.0) pg MCHC (32.0-36.0) g/dL RDW Std Deviation (36.4-46.3) fL RDW Coeff of Collin (11.5-14.5) % Plt Count (130-400) K/uL MPV (9.4-12.4) fL Haptoglobin Sodium (136-145) mmol/L Potassium (3.5-5.1) mmol/L Chloride (98-107) mmol/L Carbon Dioxide (21-32) mmol/L Anion Gap (3-11) BUN (6-23) mg/dl Creatinine (0.6-1.4) mg/dl Est Cr Clr Drug Dosing ml/min Est GFR ( Amer) ml/min Est GFR (Non-Af Amer) ml/min BUN/Creatinine Ratio (10-20) Glucose (70-99(Fasting)) mg/dl POC Glucose 97 91 205 H (70-99) mg/dl Calcium (8.5-10.1) mg/dl Magnesium (1.7-2.4) mg/dl Total Bilirubin (0.2-1.0) mg/dl AST (13-39) U/L ALT (7-52) U/L Alkaline Phosphatase (34-104) U/L Lactate Dehydrogenase (86-244) U/L Total Creatine Kinase (30-223) U/L Total Protein (6.0-8.3) gm/dl Albumin (3.4-5.0) gm/dl Globulin (2.5-4.0) gm/dl Albumin/Globulin Ratio (0.9-2) 05/03/22 05/03/22 05/03/22 Range/Units 10:18 10:18 10:18 WBC (4.8-10.8) K/ul RBC (4.63-6.08) M/uL Hgb (14.0-18.0) g/dl Hct (40.1-51.0) % MCV (80.0-100.0) fL MCH (25.0-34.0) pg MCHC (32.0-36.0) g/dL RDW Std Deviation (36.4-46.3) fL RDW Coeff of Collin (11.5-14.5) % Plt Count (130-400) K/uL MPV (9.4-12.4) fL Haptoglobin Pending Sodium (136-145) mmol/L Potassium (3.5-5.1) mmol/L Chloride (98-107) mmol/L Carbon Dioxide (21-32) mmol/L Anion Gap (3-11) BUN (6-23) mg/dl Creatinine (0.6-1.4) mg/dl Est Cr Clr Drug Dosing ml/min Est GFR ( Amer) ml/min Est GFR (Non-Af Amer) ml/min BUN/Creatinine Ratio (10-20) Glucose (70-99(Fasting)) mg/dl POC Glucose (70-99) mg/dl Calcium (8.5-10.1) mg/dl Magnesium (1.7-2.4) mg/dl Total Bilirubin (0.2-1.0) mg/dl AST (13-39) U/L ALT (7-52) U/L Alkaline Phosphatase (34-104) U/L Lactate Dehydrogenase 258 H (86-244) U/L Total Creatine Kinase < 10 L (30-223) U/L Total Protein (6.0-8.3) gm/dl Albumin (3.4-5.0) gm/dl Globulin (2.5-4.0) gm/dl Albumin/Globulin Ratio (0.9-2)
[2022-05-04] MEDS ORDERED: INSULIN ASPART PER UNIT SC SCH (11:45)
--- NOTE | 2022-05-04 11:51 | Pharmacy Report ---
Pharmacy Glycemic Short Note 2 - Date of Service May 04, 2022 - Glycemic Short BSG Results (Last 24 hours): 05/03/22 05/03/22 05/04/22 16:20 21:02 05:45 Glucose 106 H POC Glucose 91 97 05/04/22 05/04/22 05/04/22 07:19 11:25 11:26 Glucose POC Glucose 162 H 306 H* 292 H OUTPATIENT ANTIDIABETIC REGIMEN: * Lantus 40 units HS * Novolog SSI * Victoza 1.2mg SQ daily HbA1C: 6.7% (04/23) ASSESSMENT: 05/04: * BSGs 67-40-026-292mg/dL over the last 24h. Fasting elevated this AM at 162mg/dL. Patient received 20units of basal insulin and 83 units of Novolog yesterday. * Pt made NPO overnight (unclear reason), however diet re-ordered today with lunch. * Plan to escalate basal insulin back to 30 units tonight given hyperglycemia today. Lunch/dinner/HS Novolog with CF/CR 15/5, and will tighten breakfast starting tomorrow AM to 15/3. 05/01: * Patient is a type 2 diabetic, immunocompromised with history of multiple myeloma and a prolonged hospital stay with sepsis and acute respiratory failure. Pharmacy consulted to assist with glycemic management. * Patient has currently been receiving Lantus 30units HS and a Novolog scale ACHS CF/CR 20/6 with prandial BSGs above goal. AM BSGs have been largely acceptable. * Patient tolerating a diet and other stressors stable. * Plan to increase basal by ~15% to 35 units HS. Novolog scale tightened to 15/5 with goal BSG 110-140mg/dL PLAN FOR INPATIENT GLYCEMIC CONTROL: * Hold outpatient oral diabetes medications * Basal insulin * Lantus 30 units SQ HS * Bolus insulin * NovoLog per scale ACHS or Q6hrs while NPO * Goal Range: Low 110 mg/dL - High 140 mg/dL * Correction Factor: 15 mg/dL/unit * Nutritional / Prandial insulin per carb ratio of 1 unit per 5 grams CHO consumed, breakfast (1 unit per 3 gm CHO consumed).
--- NOTE | 2022-05-04 12:10 | Discharge Summary ---
Date of Service May 04, 2022 Admission HPI Per Admitting Provider This is a 76-year-old male who has significant past medical history of insulin- dependent T2DM, chronic ischemic heart disease, history of CABG x4 in 1993, history of TBS status post PPM, chronic HFrEF, PAF anticoagulated on Eliquis, HLD, diabetic neuropathy, multiple myeloma with lytic bone lesions who presents ED secondary to weakness, fell and hit head prior to arrival. Patient states last evening he developed chills. He also felt more short of breath when ambulating to and from the bathroom. He woke up today around 6 AM and again felt short of breath walking into the bathroom. Something fell on the floor and he bent down to pick it up when he fell over and struck his head on the toilet. He did sustain a mild abrasion to his forehead but otherwise denies any loss of consciousness. Due to being on Eliquis called 911. Patient states over the last several months he has felt unwell. He was diagnosed with multiple myeloma back in June and has been receiving oral and infusion chemotherapy. Currently he is only receiving infusion chemotherapy of Velcade with last treatment of 04/21/2022. He admits to continued weight loss, muscle wasting of his lower extremities, increased inability to ambulate and generalized weakness. Per at bedside he has also been having lower blood pressure over the last 2 to 3 weeks. After chemotherapy yesterday his blood pressure was 80 over 50s. He also admits to increasing shortness of breath over the last 3 to 4 days. His shortness of breath occurs at rest as well as with exertion. He denies any documented fever or sweats, lightheadedness, dizziness, syncope, chest pain, palpitations, nausea, vomiting, hematemesis, diarrhea or abdominal pain. He further denies dysuria, increased urgency or frequency with urination, melena or hematochezia. He does suffer from opioid-induced constipation due to taking morphine for his bone lesion pain. His last bowel movement was yesterday. He did not take any medications today. He denies any sick contacts, tick or insect bites. In ED patient presented with a fever of 39.3. He was also found to be hypoxic and placed on submental oxygen. Initial chest x-ray was concerning for bibasilar pneumonia. He did have lactic acidosis which resolved with 2 L of IV fluid resuscitation. His troponin was also elevated at 215.2. Blood cultures were obtained. He was started on IV cefepime for broad-spectrum antibiotics. His respiratory panel with SARS-CoV-2, influenza and RSV was negative. Head CT and cervical spine CT were negative for acute fracture from fall. Cervical spine CT did reveal lytic lesions in the cervical spine. Chest CTA did reveal emphysema, no PE, mild alveolar edema present. Of significance he was seen in ED on 04/15/2022 secondary to low blood pressure, chills, malaise and weakness. Initially his lactic acid was 2.5 and creatinine elevated to 1.6. Improved with 500 cc bolus. He was discharged to home. He also follows wound care for a left heel wound. Admission Exam Per Admitting Provider Constitutional: WD/WN, vitals as above, NAD, sitting up in bed, pleasant, conversing easily Head: Normocephalic, abrasion to L frontal forehead Eyes: PERRL, conjunctivae normal, anicteric sclerae ENMT: external ear and nose normal, oropharynx normal Neck: trachea midline, no thyromegaly normal visual inspection Respiratory: normal respiratory effort, on 3L of O2 via NC, lungs clear to auscultation, bibasilar crackles noted, no wheeze or rhonchi. Normal insp/exp effort, no accessory muscle use Cardiovascular: RRR, no murmur, no edema Vessels: no JVD or carotid bruit Chest: normal inspection of chest Abdomen: normal bowel sounds, soft, nontender, no hepatosplenomegaly Musculoskeletal: no cyanosis or clubbing, AROM x 4 Skin: no rashes, warm and dry normal turgor Neurologic: PERRL, EOMI, accommodation nl, no face palsy, no dysarthria CN's II-XI intact bilaterally and moves all extremities Psychiatric: A+Ox3, euthymic affect Lymphatic: no cervical or axillary lymphadenopathy : deferred Principal Diagnosis Fever, likely respiratory source Acute hypoxemic respiratory failure Acute on chronic heart failure with reduced ejection fraction Paroxysmal A. fib Transaminitis Constipation Discharge Exam GENERAL: Alert and oriented x3. NAD, on 5 L NC O2. HEENT: No pallor, no icterus. Pupils equal, round and reactive to light. Oral mucosa moist. NECK: No JVD, no neck masses. HEART: S1 and S2 heard. Regular rate and rhythm. No murmur, no gallop. RESPIRATORY SYSTEM: Normal AP diameter. No accessory muscle use. No wheezing, decreased breath sounds ABDOMEN: Soft, bowel sounds present, nontender, no distention. CENTRAL NERVOUS SYSTEM: No facial droop. Speech is clear. Obeys simple commands. Moves extremities. EXTREMITIES: No edema, no erythema seen. UC in situ, w/ yellow urine collection noted. Discharge Data Allergies Allergy/AdvReac Type Severity Reaction Status Date / Time tizanidine Allergy Unknown Unknown Verified 04/16/22 15:19 Consultations 04/22/22 12:34 ED Decision to Admit Stat 04/22/22 13:49 Consult Cardiology Routine 04/22/22 18:57 Consult Cloth Shearing Supervisor Routine 04/23/22 08:42 Consult Infectious Diseases Routine 05/02/22 07:51 Consult Gastroenterology Routine Ordered Studies 04/22/22 08:41 CT cervical spine wo con Stat CT head/brain wo con Stat 04/22/22 10:36 CT angio chest PE protocol Stat 04/30/22 08:34 US RUQ [US liver] Routine 05/03/22 10:12 CT abdomen w IV con Urgent Hospital Course (1) Sepsis: (2) Fever: (3) Hypoxia: (4) Elevated troponin: (5) Weakness: (6) Multiple myeloma: (7) Paroxysmal atrial fibrillation: (8) CHF (congestive heart failure): (9) CAD (coronary artery disease): (10) Type 2 diabetes mellitus: Plan 76-year-old male with a history of CAD s/p CABGx4 1993, chronic diastolic heart failure, DM-2 with neuropathy on insulin, s/p PPM, PAF on eliquis, stage II multiple myeloma currently on Velcade, dexamethasone, and Revlimid followed at [facility] oncology admitted 04/22/2022 with weakness falls and fever with acute hypoxemic respiratory failure and atrial fibrillation with rapid ventricular re sponse. He was managed for the following: #. Fever/ ?Sepsis- source ?respiratory. Patient presented with fever, hypotension and lactic acidosis. Normal WBC, elevated procal. Blood clx negative, urine clx negative, 04/23 fungal blood clx pending. Lyme negative, anaplasma pending but already on doxy. - Last febrile 7/9 AM. Normal WBC. Procal trended down. ID evaled, status post Zosyn x7 days and Doxy x10 days. #. Acute hypoxemic respiratory failure with diffuse pulmonary infiltrates- ?atypical infection vs pulm edema. Resp Biofire negative. #. Ac on Chr HFrEF: 04/22 ECHO w/ EF 40-45%. Cardiology evaluated>metoprolol 75 mg daily, Losartan 12.5 mg daily, Torsemide increased to 20 mg daily, Digoxin 0.25 mg daily. KCl 40 meq daily. FR 1800 ml/day. - Not on home O2 prior. S/p HFNC and bipap, now on 3 to 5 L oxygen. Will need 2-step prior to DC. - CXR 05/01 improved from admission. Will need repeat CXR in 6-8 wks to document resolution. - Continue supplemental oxygen, wean down as tolerated. - Monitor electrolytes, CMP in a week upon discharge. FR 2000ml. Monitor I/O, balance is negative. 04/22 CTA chest- 1. No CTA evidence for pulmonary embolus. 2. Marked bullous emphysematous changes involving the upper lobes bilaterally, right greater than left. 3. The bilateral airspace opacities actually represent preserved lung with groundglass opacity present. This most likely represents mild alveolar edema. 4. No confluent alveolar opacities were bronchograms are seen. 5. Cardiomegaly with extensive coronary artery calcification and atherosclerotic calcification of the aorta. #. Trop elevation- Per cardio, likely demand ischemia due to hypoxia and resp failure rather than NSTEMI. Echo noted. Cardiology evaluated. #. Paroxysmal Afib with RVR- had an A. fib started in the evening of 05/01, converted to NSR. Amio drip had been discontinued. Digoxin has been added 04/23. Metoprolol increased to 75 mg daily. Home eliquis on resumed 04/27. #. Acute on chronic diastolic CHF- continue diuresis, daily weight, continue I and Os measurement. Diuresis. will continue w/ electrolyte monitoring and repletion as appropriate. H/o CAD w/ hx of CABG x 4. Tachybrady syndrome s/p PPM Fall with forehead contusion and generalized weakness- CT head/C spine negative for acute abnormality. PT OT . IDDM 2- A1c 6.7 12/15/21. Continue lantus/novolog per protocol L diabetic heel wound- established with wound care. WOCN eval Multiple myeloma with lytic bone lesions- Follows [facility] oncology, Dr. Garcia. Last treatment of Velcade was 04/21, receiving weekly. Held revlimid and velcade. Pt to f/u w/ his cold rolling machine setter as OP. Anemia- Hb dropped to 7 from 9 on admission. No overt bleeding noted ?related to his acute illness and underlying MM. S/p 1 U PRBC, Hb improved to 8.6. Continue to monitor. Hb 9->7.2->7->8.6->8.4->8.3->8.5->8.6 #. Transaminitis- AST/ALT again uptrending, ?? 2/2 recent zosyn use, 04/30 Liver US wnl, 04/30 hep panel negative, no RUQ pain, non-icteric, BNP improving and 166 [not very high to begin with]. Continue to hold lipitor and tylenol. Recheck in am. GI on board, CT abd w/ iv con 05/03 w/ no acute findings on liver. D/w GI 05/04, likely 2/2 drug vs 2/2 MM. Plan to f/u w/ GI as OP in 1-2 weeks and pt will need f/u w/ Business Unit Controller as OP. #. Constipation- s/p relistor 04/24 and had BM. s/p relistor 04/28 w/ BM on 04/29 AM. Continue bowel regimen. DVT ppx: Eliquis Patient being discharged to SNF with following instruction at the point of discharge: Follow-up with your primary care physician within a week time. Follow-up with cardiology in 2 to 4 weeks time. For your acute on chronic heart failure, cardiology optimized your cardiac medications. take as prescribed. Maintain heart healthy diet, diabetic diet, fluid restriction of 2 L/day. Incorporate fiber rich food in diet and take your bowel regimen daily. Follow-up with hematology for your history of multiple myeloma. Your liver enzymes are elevated while in hospital, they started to trend down on the day of discharge, you will need to follow-up with GI doctor as an outpatient in 1 to 2 weeks upon discharge for further evaluation/management of your elevated liver enzymes. Avoid Tylenol until cleared by your GI doctor/PCP doctor. Get your blood work CBC, magnesium level, CMP done in a week time and have the results forwarded to your PCP. You will need repeat imaging of your chest as an outpatient in 6 to 8 weeks to document resolution of your bilateral bases lung consolidation noted here in the hospital. Take your medications as prescribed. Total Time Total Time Spent Total Time Spent (In Minutes): 40 Discharge Plan Discharge Items Patient Disposition: Transfer [facility] Fac Reason For Visit: FEVER, WEAKNESS, HYPOXIA Discharge Diagnosis: Fever, likely respiratory source Acute hypoxemic respiratory failure Acute on chronic heart failure with reduced ejection fraction Paroxysmal A. fib Transaminitis Constipation Activity: Resume your previous activity Non-emergency contact: Primary Care Provider Call non-emergency contact if: you have any medication questions, your symptoms worsen and your temperature is above 101 Follow-up/Referrals: Landen Macario, [Primary Care Provider] - Diet: Carb Consistent or DM2 Fluids: 2000ml (8 cups) Addtl Attending Provider Instructions: Follow-up with your primary care physician within a week time. Follow-up with cardiology in 2 to 4 weeks time. For your acute on chronic heart failure, cardiology optimized your cardiac medications. take as prescribed. Maintain heart healthy diet, diabetic diet, fluid restriction of 2 L/day. I ncorporate fiber rich food in diet and take your bowel regimen daily. Follow-up with hematology for your history of multiple myeloma. Your liver enzymes are elevated while in hospital, they started to trend down on the day of discharge, you will need to follow-up with GI doctor as an outpatient in 1 to 2 weeks upon discharge for further evaluation/management of your elevated liver enzymes. Avoid Tylenol until cleared by your GI doctor/PCP doctor. Get your blood work CBC, magnesium level, CMP done in a week time and have the results forwarded to your PCP. You will need repeat imaging of your chest as an outpatient in 6 to 8 weeks to document resolution of your bilateral bases lung consolidation noted here in the hospital. Take your medications as prescribed. Pending Studies at Discharge: No Stand-Alone Forms: My [facility] Skilled Items Patient informed of condition?: Yes DNR: Yes Discharge Level of Care: Skilled Communicable Disease: No Discharge Prognosis: Stable Lines: None Urinary Catheter: No Medications and DC Order Prescriptions: New digoxin 250 mcg (0.25 mg) Tablet 250 mcg PO DAILY@1600 Qty: 30 0RF losartan 25 mg Tablet 12.5 mg PO QAM Qty: 15 0RF potassium chloride 20 mEq Tablet,Er Particles/Crystals 40 meq PO DAILY Qty: 60 0RF torsemide 10 mg Tablet 20 mg PO QAM Qty: 60 0RF Continued aspirin 81 mg tablet,delayed release (DR/EC) 81 mg PO DAILY atorvastatin 40 mg tablet 40 mg PO DAILY isosorbide mononitrate 30 mg tablet extended release 24 hr 30 mg PO DAILY insulin glargine [Basaglar KwikPen U-100 Insulin] 100 unit/mL (3 mL) insulin pen 40 unit SUBCUT QPM Eliquis 5 mg tablet 5 mg PO BID omega-3 fatty acids 1,000 mg Capsule 1,000 mg PO BID prochlorperazine maleate 10 mg Tablet 10 mg PO Q6H PRN (Reason: nausea) ondansetron 8 mg Tablet,Disintegrating 8 mg PO Q8H PRN (Reason: Nausea) Victoza 2-Jed 0.6 mg/0.1 mL (18 mg/3 mL) Pen Injector 1.2 mg SUBCUT DAILY polyethylene glycol 3350 [Miralax] 17 gram Powder In Packet 17 g PO DAILY PRN (Reason: constipation) Qty: 15 0RF nitroglycerin 0.4 mg tablet, sublingual 0.4 mg sublingual .Q 5 MIN MDD 3 doses in 15 min PRN (Reason: Chest Pain) insulin aspart U-100 [Novolog Flexpen U-100 Insulin] 100 unit/mL (3 mL) insulin pen 0 unit SUBCUT UD MDD 28 units per day Rx Instructions: sliding scale acyclovir 400 mg tablet 400 mg PO BID gabapentin 300 mg capsule 300 mg PO DAILY docusate sodium [Colace] 100 mg capsule 100 mg PO BID morphine 15 mg tablet 15 mg PO Q6H PRN (Reason: Pain) ferrous sulfate 325 mg (65 mg iron) Tablet 325 mg PO DAILY B12 Active 1,000 mcg Tablet,Chewable 1,000 mcg PO DAILY metoprolol succinate [Toprol XL] 50 mg tablet extended release 24 hr 75 mg PO DAILY Qty: 45 0RF Discontinued acetaminophen [Tylenol Arthritis Pain] 650 mg tablet extended release 650 mg PO Q8H PRN (Reason: Pain) torsemide 20 mg Tablet 10 mg PO QAM Qty: 30 0RF dexamethasone 4 mg tablet 20 mg PO WK MDD 5 tablets weekly potassium chloride 10 mEq Capsule, Extended Release 10 meq PO DAILY doxycycline hyclate 100 mg tablet 25 mg PO BID Discharge Orders: Discharge Order (Routine); Ordered 05/04/22 Ordered By: Heriberto Woo/Other Patient Handouts: Managing Type 2 Diabetes Admission Data Admit Date/Time: 04/22/22 12:53 Attending Provider: Heriberto Mcgee Admit Provider: Fracisco Hwang Primary Care Provider: Landen Macario Other Providers: Fracisco Hwang ; Gio Mejia ; Landry Dorsey ; Girish Powell ; Shon Holbrook ; Sterling Malagon I. ; Reinaldo Mitchell II ; Trinidad Lam ; Cyril Hall ; Jose Tyson ; Richard Rhoades at [facility] ; [place] [place] ; Edward Robles
[2022-05-04] MEDS ORDERED: LANTUS PER UNIT CHARGE SQ SCH (21:00)
[2022-05-05] MEDS ORDERED: INSULIN ASPART PER UNIT SC SCH (07:30)
== END 2022-05-04 13:59 | DRG 871 ==
LOC: ED 07:43 → SUATTDRO 12:53 → 1E 12:53 → 2E 04-24 22:49

== ENCOUNTER 2022-11-04 00:01 | Observation (INO) ==
[2022-11-04] MEDS ORDERED: SODIUM CHLORIDE 0.9% 1000ML 1,000 ML IV ONE (00:19)
[2022-11-04 00:49] LABS: Hematocrit (blood only) 38.1 % (40.1-51.0); Hemoglobin 13.3 g/dl (14.0-18.0); Mean Corpuscular Hemoglobin 33.3 pg (25.0-34.0); Mean Corpuscular Hgb Conc 34.9 g/dL (32.0-36.0); Mean Corpuscular Volume 95.3 fL (80.0-100.0); Platelet Count 155 K/uL (130-400); RDW Coefficient of Variation 13.8 % (11.5-14.5); RDW Standard Deviation 46.6 fL (36.4-46.3); White Blood Count 5.14 K/ul (4.8-10.8)
--- NOTE | 2022-11-04 00:54 | Emergency Department Note ---
History of Present Illness General Chief complaint: Diarrhea Stated complaint: Dizziness, Rectal Pain Time Seen by Provider: 11/04/22 00:18 History of Present Illness Maximum Pain Intensity: 7 77-year-old male presents emergency department with an onset of severe diarrhea that started at 2 PM this afternoon. Patient has no sick contacts no recent travel no recent antibiotic use. Patient has a history of multiple myeloma he is received treatment over the past 4 weeks. Patient with abdominal pain no vomiting no fever. There are no other mitigating or alleviating factors Home Medications Medication Instructions Recorded Confirmed Type aspirin 81 mg tablet,delayed 81 mg PO DAILY 09/28/19 04/22/22 History release apixaban 5 mg tablet (Eliquis) 5 mg PO BID 06/25/20 04/22/22 History atorvastatin 40 mg tablet 40 mg PO DAILY 06/25/20 04/22/22 History insulin glargine 100 unit/mL (3 40 unit subcut QPM 06/25/20 04/22/22 History mL) subcutaneous pen (Basaglar KwikPen U-100 Insulin) isosorbide mononitrate 30 mg 30 mg PO DAILY 06/25/20 04/22/22 History tablet,extended release 24 hr liraglutide 0.6 mg/0.1 mL (18 mg/3 1.2 mg subcut DAILY 09/30/21 04/22/22 History mL) subcutaneous pen injector (TaskRabbittoza 2-Jed) ondansetron 8 mg disintegrating 8 mg PO Q8H PRN Nausea 09/30/21 04/22/22 History tablet prochlorperazine maleate 10 mg 10 mg PO Q6H PRN nausea 09/30/21 04/22/22 History tablet polyethylene glycol 3350 17 gram 17 g PO DAILY PRN constipation #15 10/05/21 04/22/22 Rx oral powder packet (Miralax) ea insulin aspart U-100 100 unit/mL 0 unit subcut UD 11/01/21 04/22/22 History (3 mL) subcutaneous pen (Novolog FlexPen U-100 Insulin aspart) nitroglycerin 0.4 mg sublingual 0.4 mg sublingual .Q 5 MIN PRN 11/01/21 04/22/22 History tablet Chest Pain omega-3 fatty acids 1,000 mg 1,000 mg PO BID 04/15/22 04/22/22 History capsule acyclovir 400 mg tablet 400 mg PO BID 04/22/22 04/22/22 History docusate sodium 100 mg capsule 100 mg PO BID 04/22/22 04/22/22 History (Colace) ferrous sulfate 325 mg (65 mg 325 mg PO DAILY 04/22/22 04/22/22 History iron) tablet gabapentin 300 mg capsule 300 mg PO DAILY 04/22/22 04/22/22 History mecobalamin (vitamin B12) 1,000 1,000 mcg PO DAILY 04/22/22 04/22/22 History mcg chewable tablet (B12 Active) morphine 15 mg immediate release 15 mg PO Q6H PRN Pain 04/22/22 04/22/22 History tablet digoxin 250 mcg (0.25 mg) tablet 250 mcg PO DAILY@1600 #30 tabs 05/04/22 Rx losartan 25 mg tablet 12.5 mg PO QAM #15 tabs 05/04/22 Rx metoprolol succinate 50 mg 75 mg PO DAILY #45 tabs 05/04/22 Rx tablet,extended release 24 hr (Toprol XL) potassium chloride 20 mEq 40 meq PO DAILY #60 tabs 05/04/22 Rx tablet,extended release(part/cryst) torsemide 10 mg tablet 20 mg PO QAM #60 tabs 05/04/22 Rx Allergies Allergy/AdvReac Type Severity Reaction Status Date / Time tizanidine Allergy Unknown UNKNOWN--ON Verified 11/04/22 01:49 [facility] [place] Past Med/Surg History Medical History Atrial fibrillation continue eliquis and high dose metoprolol CAD (coronary artery disease) Hallux rigidus of left foot "S/p multiple surgeries" History of basal cell carcinoma History of melanoma in situ History of pilonidal cyst HLD (hyperlipidemia) Pacemaker Peripheral vascular disease of lower extremity Tachy-noman syndrome Pt admitted for elective ppm due to TBS; underwent procedure without any complications; monitored overnight and discharged home. 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 Beliefs That Will Affect Care: None marital status: Current Living Situation: Spouse current occupational status: retired Feels Safe at Home: Yes Assistive Devices: Cane and Walker Review of Systems A total of 10 systems reviewed and were otherwise negative Constitutional: no fever Gastrointestinal: + diarrhea/loose stools Physical Exam Vital Signs Vital Signs - 24 hr 11/04/22 00:16 11/04/22 00:22 11/04/22 00:46 Temperature 37.2 C Temperature Source Oral Pulse Rate 94 H 99 H Pulse Rate [Radial] 96 H Pulse Rhythm Regular Regular Pulse Rhythm [Radial] Regular Pulse Strength Normal Pulse Strength [Radial] Normal Respiratory Rate 18 18 18 Respiratory Effort / Characteristics Non-Labored Spontaneous Non-Labored Spontaneous Respiratory Depth Normal Normal Respiratory Pattern Regular Regular Blood Pressure 123/72 Blood Pressure [Left Arm] 92/55 L Blood Pressure Mean 89 Blood Pressure Mean [Left Arm] 67 Blood Pressure Position Lying Blood Pressure Position [Left Arm] Lying Pulse Oximetry 98 98 98 Oxygen Delivery Method Room Air Room Air Room Air Sepsis Recent Fever Within 48 Hours No Sepsis New/Unexplained Change in Mental Status N/A Sepsis Action Taken by Nursing No Action Required 11/04/22 01:00 Temperature Temperature Source Pulse Rate Pulse Rate [Radial] 81 Pulse Rhythm Pulse Rhythm [Radial] Pulse Strength Pulse Strength [Radial] Respiratory Rate 18 Respiratory Effort / Characteristics Non-Labored Spontaneous Respiratory Depth Normal Respiratory Pattern Regular Blood Pressure Blood Pressure [Left Arm] 141/64 H Blood Pressure Mean Blood Pressure Mean [Left Arm] 89 Blood Pressure Position Blood Pressure Position [Left Arm] Lying Pulse Oximetry 98 Oxygen Delivery Method Room Air Sepsis Recent Fever Within 48 Hours Sepsis New/Unexplained Change in Mental Status Sepsis Action Taken by Nursing GENERAL: Patient is awake alert in no acute distress patient is resting comfortably and showing no signs of anxiety EYES: The conjunctivae are clear. The pupils are round and reactive. EARS, NOSE, MOUTH AND THROAT: The nose is without any evidence of any deformity. Mucous membranes are moist. Tongue is midline. NECK: The neck is nontender and supple. RESPIRATORY: Normal respiratory effort is noted there is no evidence of wheezing rhonchi or rales CARDIOVASCULAR: Regular rate and rhythm noted there no murmurs rubs or gallops normal S1 normal S2. GASTROINTESTINAL: The abdomen is soft. Abdomen is nontender. BACK: No midline tenderness or or step-off noted range of motion in flexion extension as well as rotation no signs of muscle spasm noted MUSCULOSKELETAL/EXTREMITIES: There is no evidence of gross deformity full range of motion is noted in the hips and shoulders. SKIN: There is no obvious evidence of any rash. There are no petechiae, pallor or cyanosis noted. NEUROLOGIC: Patient is awake alert and oriented x3 strength is symmetric PSYCH: Normal affect Course Reevaluation(s) Reevaluation #1: Patient is resting in no distress after IV fluids; patient is not in septic shock Time: :58 Consultations Consultation #1: Spoke with the [facility]ist for admission, he agrees with admission Time: :58 Administered Medications Discontinued Medications Sodium Chloride (Nss 1000ml) 1,000 mls @ 999 mls/hr IV .Q1H1M ONE Stop: 11/04/22 01:19 Last Infusion: 11/04/22 01:47 Dose: 0 mls/hr Documented By: Admin: 11/04/22 00:32 Dose: 999 mls/hr Documented By: KELSIE Medical Decision Making Medical Records Attestation: I reviewed the patient's medical records. Home Medications Current Medication List: was personally reviewed by me Laboratory Data Attestation: I reviewed the patient's lab results. Patient has an elevated troponin of unknown etiology 11/04/22 00:30 11/04/22 00:30 Lab Results 11/04/22 11/04/22 11/04/22 Range/Units 00:30 00:30 00:30 WBC 5.14 (4.8-10.8) K/ul RBC 4.00 L (4.63-6.08) M/uL Hgb 13.3 L (14.0-18.0) g/dl Hct 38.1 L (40.1-51.0) % MCV 95.3 (80.0-100.0) fL MCH 33.3 (25.0-34.0) pg MCHC 34.9 (32.0-36.0) g/dL RDW Std Deviation 46.6 H (36.4-46.3) fL RDW Coeff of Collin 13.8 (11.5-14.5) % Plt Count 155 (130-400) K/uL MPV 11.0 (9.4-12.4) fL Immature Gran % (Auto) 2.1 % Neut % (Auto) 78.8 % Lymph % (Auto) 6.0 % [place] % (Auto) 11.7 % Eos % (Auto) 1.2 % Baso % (Auto) 0.2 % Neut # (Auto) 4.05 (1.4-6.5) K/uL Lymph # (Auto) 0.31 L (1.2-3.4) K/uL [place] # (Auto) 0.60 (0.24-0.82) K/uL Eos # (Auto) 0.06 (0-0.50) K/uL Baso # (Auto) 0.01 (0-0.2) K/uL Immature Gran # (Auto) 0.11 H (0.00-0.02) K/uL Polychromasia 1+ Tear Drop Cells 1+ Ovalocytes 2+ Acanthocytes (Spur) 1+ Sodium 139 (136-145) mmol/L Potassium 3.7 (3.5-5.1) mmol/L Chloride 99 (98-107) mmol/L Carbon Dioxide 24 (21-32) mmol/L Anion Gap 16 H (3-11) BUN 25 H (6-23) mg/dl Creatinine 1.13 (0.6-1.4) mg/dl Est Cr Clr Drug Dosing 53.8 ml/min Est GFR ( Amer) 72.8 ml/min Est GFR (Non-Af Amer) 62.8 ml/min BUN/Creatinine Ratio 22.1 H (10-20) Glucose 228 H (70-99(Fasting)) mg/dl Calcium 8.8 (8.5-10.1) mg/dl Magnesium 2.1 (1.7-2.4) mg/dl Total Bilirubin 0.9 (0.2-1.0) mg/dl Direct Bilirubin 0.2 (0-0.2) mg/dl AST 22 (13-39) U/L ALT 40 (7-52) U/L Alkaline Phosphatase 64 (34-104) U/L Troponin I High Sens 294.9 H* (0-20) pg/ml Total Protein 6.2 (6.0-8.3) gm/dl Albumin 3.9 (3.4-5.0) gm/dl Procalcitonin 0.14 (0-0.5) ng/ml SARS-CoV-2, RNA, NAAT (NEGATIVE) 11/04/22 Range/Units 00:30 WBC (4.8-10.8) K/ul RBC (4.63-6.08) M/uL Hgb (14.0-18.0) g/dl Hct (40.1-51.0) % MCV (80.0-100.0) fL MCH (25.0-34.0) pg MCHC (32.0-36.0) g/dL RDW Std Deviation (36.4-46.3) fL RDW Coeff of Collin (11.5-14.5) % Plt Count (130-400) K/uL MPV (9.4-12.4) fL Immature Gran % (Auto) % Neut % (Auto) % Lymph % (Auto) % [place] % (Auto) % Eos % (Auto) % Baso % (Auto) % Neut # (Auto) (1.4-6.5) K/uL Lymph # (Auto) (1.2-3.4) K/uL [place] # (Auto) (0.24-0.82) K/uL Eos # (Auto) (0-0.50) K/uL Baso # (Auto) (0-0.2) K/uL Immature Gran # (Auto) (0.00-0.02) K/uL Polychromasia Tear Drop Cells Ovalocytes Acanthocytes (Spur) Sodium (136-145) mmol/L Potassium (3.5-5.1) mmol/L Chloride (98-107) mmol/L Carbon Dioxide (21-32) mmol/L Anion Gap (3-11) BUN (6-23) mg/dl Creatinine (0.6-1.4) mg/dl Est Cr Clr Drug Dosing ml/min Est GFR ( Amer) ml/min Est GFR (Non-Af Amer) ml/min BUN/Creatinine Ratio (10-20) Glucose (70-99(Fasting)) mg/dl Calcium (8.5-10.1) mg/dl Magnesium (1.7-2.4) mg/dl Total Bilirubin (0.2-1.0) mg/dl Direct Bilirubin (0-0.2) mg/dl AST (13-39) U/L ALT (7-52) U/L Alkaline Phosphatase (34-104) U/L Troponin I High Sens (0-20) pg/ml Total Protein (6.0-8.3) gm/dl Albumin (3.4-5.0) gm/dl Procalcitonin (0-0.5) ng/ml SARS-CoV-2, RNA, NAAT NEGATIVE (NEGATIVE) Imaging Data Attestation: I personally reviewed and interpreted this imaging study as follows: My Impression: Chest x-ray interpreted by me cardiomegaly, pacer, no infiltrate ECG Data Attestation: I personally reviewed and interpreted this ECG as follows: Additional Comments: EKG interpreted by me sinus tachycardia rate of [address]-T changes globally no obvious ST segment elevation normal axis normal intervals MDM Narrative Medical decision making differential diagnosis colitis, gastroenteritis, metabolic derangement, C. difficile, dehydration, sepsis. Plan is to check labs, EKG, chest x-ray, give IV fluids External medical records were reviewed by me Nursing notes were reviewed by me and appreciated Patient's lab work shows an elevated troponin of unknown etiology has no current chest pain his EKG does have global ST depression. Patient's main complaint is diarrhea. He is not significantly dehydrated however asymptomatic. A stool sample will be sent for PCR. Procalcitonin is normal. Patient was given IV fl uids in the emergency department. The case was discussed with the [facility] hospitalist who accepts the patient and asked states that the patient will be admitted inpatient. Impression & Plan Diarrhea, Elevated troponin, Weakness Discharge Plan Visit Data Chief Complaint: Diarrhea Stated Complaint: Dizziness, Rectal Pain ED Provider: Christ Mixon Discharge Problem: Diarrhea, Elevated troponin, Weakness Patient Disposition: Admitted As Inpatient Forms Stand Alone Forms: [facility] Prescriptions Prescriptions: No Action aspirin 81 mg tablet,delayed release (DR/EC) 81 mg PO DAILY atorvastatin 40 mg tablet 40 mg PO DAILY isosorbide mononitrate 30 mg tablet extended release 24 hr 30 mg PO DAILY insulin glargine [Basaglar KwikPen U-100 Insulin] 100 unit/mL (3 mL) insulin pen 40 unit SUBCUT QPM Eliquis 5 mg tablet 5 mg PO BID omega-3 fatty acids 1,000 mg Capsule 1,000 mg PO BID prochlorperazine maleate 10 mg Tablet 10 mg PO Q6H PRN (Reason: nausea) ondansetron 8 mg Tablet,Disintegrating 8 mg PO Q8H PRN (Reason: Nausea) Victoza 2-Jed 0.6 mg/0.1 mL (18 mg/3 mL) Pen Injector 1.2 mg SUBCUT DAILY polyethylene glycol 3350 [Miralax] 17 gram Powder In Packet 17 g PO DAILY PRN (Reason: constipation) Qty: 15 0RF nitroglycerin 0.4 mg tablet, sublingual 0.4 mg sublingual .Q 5 MIN MDD 3 doses in 15 min PRN (Reason: Chest Pain) insulin aspart U-100 [Novolog FlexPen U-100 Insulin] 100 unit/mL (3 mL) insulin pen 0 unit SUBCUT UD MDD 28 units per day Rx Instructions: sliding scale acyclovir 400 mg tablet 400 mg PO BID gabapentin 300 mg capsule 300 mg PO DAILY docusate sodium [Colace] 100 mg capsule 100 mg PO BID morphine 15 mg tablet 15 mg PO Q6H PRN (Reason: Pain) ferrous sulfate 325 mg (65 mg iron) Tablet 325 mg PO DAILY B12 Active 1,000 mcg Tablet,Chewable 1,000 mcg PO DAILY digoxin 250 mcg (0.25 mg) Tablet 250 mcg PO DAILY@1600 Qty: 30 0RF losartan 25 mg Tablet 12.5 mg PO QAM Qty: 15 0RF potassium chloride 20 mEq Tablet,Er Particles/Crystals 40 meq PO DAILY Qty: 60 0RF torsemide 10 mg Tablet 20 mg PO QAM Qty: 60 0RF metoprolol succinate [Toprol XL] 50 mg tablet extended release 24 hr 75 mg PO DAILY Qty: 45 0RF Referrals Referrals: [facility] [Primary Care Provider] -
[2022-11-04 01:11] LABS: Acanthocytes 1+; Basophils # (auto) 0.01 K/uL (0-0.2); Basophils % (auto) 0.2 %; Eosinophils # (auto) 0.06 K/uL (0-0.50); Eosinophils % (auto) 1.2 %; Immature Granulocytes # (auto) 0.11 K/uL (0.00-0.02); Immature Granulocytes % (auto) 2.1 %; Lymphocytes # (auto) 0.31 K/uL (1.2-3.4); Monocytes % (auto) 11.7 %; Neutrophils # (auto) 4.05 K/uL (1.4-6.5); Neutrophils % (auto) 78.8 %; Ovalocytes 2+; Polychromasia 1+; Tear Drop Cells 1+
[2022-11-04 01:13] LABS: Albumin Level 3.9 gm/dl (3.4-5.0); BUN Creatinine Ratio 22.1 (10-20); Bilirubin Direct 0.2 mg/dl (0-0.2); Bilirubin,Total 0.9 mg/dl (0.2-1.0); Calcium 8.8 mg/dl (8.5-10.1); Creatinine Clr Calc Pharmacy 53.8 ml/min; Est GFR (African American) 72.8 ml/min; Est GFR (Non-African American) 62.8 ml/min; Magnesium 2.1 mg/dl (1.7-2.4); Potassium 3.7 mmol/L (3.5-5.1); Total Protein 6.2 gm/dl (6.0-8.3)
[2022-11-04 01:20] LABS: Troponin I High Sensitivity 294.9 pg/ml (0-20)
[2022-11-04] MEDS ORDERED: LACTATED RINGER'S 1,000 ML IV ONE ×2 (02:02→09:00)
--- NOTE | 2022-11-04 03:07 | History & Physical Report ---
Date of Service November 04, 2022 Assessment & Plan (1) Hypovolemia: Plan: Secondary to diarrhea Rule out C. difficile colitis due to immunocompromised state History multiple myeloma ongoing chemotherapy Troponin elevation secondary to above chronic systolic heart failure (EF 40 to 45%, TTE 2021), patient on the dry side hx CAD status post CABG/PVD status post surgery SSS status post PPM on Eliquis valvular heart disease (mild MR/TR), pulmonary hypertension DM2 insulin requiring, patient hyperglycemic possibly from recent outpatient hydrocortisone dose from chemotherapy, well-controlled as of outpatient hemoglobin A1c of 6.24 August 2022 chronic anemia, hemoglobin better than baseline secondary to hemoconcentration past tobacco abuse Medical telemetry Appropriate to hold home BP meds for now except for low-dose beta-annika CT abdomen pelvis Stool C. difficile Monitor lactic acid response to IVF Gentle hydration in light of cardiomyopathy Follow troponin, TTE if with significant progression Basal bolus insulin, ISS BG goal 1 10-1 40, carb count coverage DVT prophylaxis. Text[employer]ker DNR Text document was generated using [employer] voice recognition software. It may contain grammatical or spelling errors. Kindly contact undersigned for clarification of any documentation item in question. History of Present Illness Chief Complaint: Abdominal pain, diarrhea Primary Care Provider: Landen Macario DO History obtained from patient and records. Medical history significant for chronic systolic heart failure (EF 40 to 45%, TTE 2021), CAD status post CABG, PVD status post surgery, SSS status post PPM on Eliquis, valvular heart disease (mild MR/TR), pulmonary hypertension, DM2 insulin requiring, multiple myeloma ongoing chemotherapy, chronic anemia (baseline hemoglobin 12), past tobacco abuse. Last confinement April 2022 for sepsis secondary to atypical pneumonia. 1 day history of sudden onset watery diarrhea with achy generalized abdominal pain. Some nausea. Patient with dizziness symptoms described as lightheadedness. No chest pain, no SOB. No vomiting symptoms. No Fever, no chills. No recent antibiotic Rx or out-of-town travel. Outpatient chemotherapy last week. 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 Allergies Allergy/AdvReac Type Severity Reaction Status Date / Time tizanidine Allergy Unknown UNKNOWN--ON Verified 11/04/22 01:49 [facility] – [place] MED LIST Home Medications Medication Instructions Recorded Confirmed Type apixaban 5 mg tablet (Eliquis) 5 mg PO BID 06/25/20 11/04/22 History atorvastatin 40 mg tablet 40 mg PO DAILY 06/25/20 11/04/22 History insulin glargine 100 unit/mL (3 40 unit subcut QPM 06/25/20 11/04/22 History mL) subcutaneous pen (Basaglar KwikPen U-100 Insulin) isosorbide mononitrate 30 mg 30 mg PO DAILY 06/25/20 11/04/22 History tablet,extended release 24 hr liraglutide 0.6 mg/0.1 mL (18 mg/3 1.2 mg subcut DAILY 09/30/21 11/04/22 History mL) subcutaneous pen injector (Edusoftza 2-Jed) ondansetron 8 mg disintegrating 8 mg PO Q8H PRN Nausea 09/30/21 11/04/22 History tablet prochlorperazine maleate 10 mg 10 mg PO Q6H PRN nausea 09/30/21 11/04/22 History tablet polyethylene glycol 3350 17 gram 17 g PO DAILY PRN constipation #15 10/05/21 11/04/22 Rx oral powder packet (Miralax) ea insulin aspart U-100 100 unit/mL 10 unit subcut TIDM 11/01/21 11/04/22 History (3 mL) subcutaneous pen (Novolog FlexPen U-100 Insulin aspart) nitroglycerin 0.4 mg sublingual 0.4 mg sublingual .Q 5 MIN PRN 11/01/21 11/04/22 History tablet Chest Pain omega-3 fatty acids 1,000 mg 1,000 mg PO BID 04/15/22 11/04/22 History capsule acyclovir 400 mg tablet 400 mg PO BID 04/22/22 11/04/22 History docusate sodium 100 mg capsule 100 mg PO BID PRN Constipation 04/22/22 11/04/22 History (Colace) ferrous sulfate 325 mg (65 mg 325 mg PO DAILY 04/22/22 11/04/22 History iron) tablet gabapentin 300 mg capsule 300 mg PO QAM 04/22/22 11/04/22 History mecobalamin (vitamin B12) 1,000 1,000 mcg PO DAILY 04/22/22 11/04/22 History mcg chewable tablet (B12 Active) morphine 15 mg immediate release 15 mg PO Q4H PRN Pain 04/22/22 11/04/22 History tablet losartan 25 mg tablet 12.5 mg PO QAM #15 tabs 05/04/22 11/04/22 Rx acetaminophen 650 mg 1,300 mg PO DIRECTED PRN Pain 11/04/22 11/04/22 History tablet,extended release (Tylenol Arthritis Pain) albuterol sulfate 2.5 mg/3 mL 2.5 mg inhalation DIRECTED PRN 11/04/22 11/04/22 History (0.083 %) solution for nebulization Shortness Of Breath albuterol sulfate 90 mcg/actuation 2 puff inhalation Q6H PRN 11/04/22 11/04/22 History aerosol inhaler COUGH/SHORT OF BREATH/WHEEZING calcium carbonate 600 mg-vitamin 1 tab PO BID 11/04/22 11/04/22 History D3 10 mcg (400 unit) tablet (Calcium 600 + D(3)) digoxin 125 mcg (0.125 mg) tablet 125 mcg PO QAM 11/04/22 11/04/22 History lenalidomide 10 mg capsule 10 mg PO DIRECTED 11/04/22 11/04/22 History (Revlimid) metoprolol succinate 50 mg 50 mg PO BID 11/04/22 11/04/22 History tablet,extended release 24 hr (Toprol XL) potassium chloride 20 mEq 20 meq PO BID 11/04/22 11/04/22 History tablet,extended release(part/cryst) sennosides 8.6 mg tablet (senna) 17.2 mg PO HS PRN Constipation 11/04/22 11/04/22 History torsemide 10 mg tablet 10 mg PO QAM 11/04/22 11/04/22 History Past Med/Surg History Medical History Atrial fibrillation continue eliquis and high dose metoprolol CAD (coronary artery disease) Hallux rigidus of left foot "S/p multiple surgeries" History of basal cell carcinoma History of melanoma in situ History of pilonidal cyst HLD (hyperlipidemia) Pacemaker Peripheral vascular disease of lower extremity Tachy-noman syndrome Pt admitted for elective ppm due to TBS; underwent procedure without any complications; monitored overnight and discharged home. Type 2 diabetes mellitus Surgical History History of bone marrow biopsy History of cataract surgery History of foot surgery S/P CABG x 4 S/P Mohs surgery for basal cell carcinoma Family History Mother Lymphoma Social History Smoking Status: Never smoker Tobacco Type: Cigarettes Cigarettes Per Day: 1-2 times a month; Second Hand Exposure: No; Do You Dip or Chew Tobacco: No; Hx Alcohol Use: No Hx Substance Use: No Preferred Language: [place] Communication Ability: Effective Public Stenographer Required: No Beliefs That Will Affect Care: None marital status: Current Living Situation: Spouse current occupational status: retired Feels Safe at Home: Yes Safety Concerns: Feels Safe At This Time Assistive Devices: Cane, Denture - Upper and Walker Review of Systems Review of Systems: As per HPI, all other systems reviewed and negative Physical Exam Physical Exam: GENERAL: Comfortable, pleasant, no respiratory distress SKIN: Pallor, warm HEENT: Partial alopecia, pale palpebral conjunctivae, no ptosis, dry buccal mucosa NECK : Supple, no tenderness CHEST : Decreased breath sounds, no tenderness HEART : RRR, no obvious murmurs ABDOMEN: Some distention, hypogastric tenderness EXTREMITIES : No LE swelling/tenderness, no other conspicuous deformities noted NEUROLOGIC : Coherent, no facial asymmetry, no other gross focality Results & Data Results & Data ([facility]) Vital Signs (Past 12 Hours) Vital Signs Temp Pulse Pulse Resp BP BP Pulse Ox 11/04/22 01:00 81 18 141/64 H 98 11/04/22 00:46 96 H 18 92/55 L 98 11/04/22 00:22 99 H 18 98 11/04/22 00:16 37.2 C 94 H 18 123/72 98 O2 Del Method 11/04/22 01:00 Room Air 11/04/22 00:46 Room Air 11/04/22 00:22 Room Air 11/04/22 00:16 Room Air Laboratory Results Laboratory Results WBC 5.14 K/ul (4.8-10.8) 11/04/22 00:30 RBC 4.00 M/uL (4.63-6.08) L 11/04/22 00:30 Hgb 13.3 g/dl (14.0-18.0) L 11/04/22 00:30 Hct 38.1 % (40.1-51.0) L 11/04/22 00:30 MCV 95.3 fL (80.0-100.0) 11/04/22 00:30 MCH 33.3 pg (25.0-34.0) 11/04/22 00:30 MCHC 34.9 g/dL (32.0-36.0) 11/04/22 00: RDW Std Deviation 46.6 fL (36.4-46.3) H 11/04/22 00: RDW Coeff of Collin 13.8 % (11.5-14.5) 11/04/22 00:30 Plt Count 155 K/uL (130-400) 11/04/22 00:30 MPV 11.0 fL (9.4-12.4) 11/04/22 00:30 Immature Gran % (Auto) 2.1 % 11/04/22 00:30 Neut % (Auto) 78.8 % 11/04/22 00:30 Lymph % (Auto) 6.0 % 11/04/22 00:30 [place] % (Auto) 11.7 % 11/04/22 00:30 Eos % (Auto) 1.2 % 11/04/22 00:30 Baso % (Auto) 0.2 % 11/04/22 00:30 Neut # (Auto) 4.05 K/uL (1.4-6.5) 11/04/22 00:30 Lymph # (Auto) 0.31 K/uL (1.2-3.4) L 11/04/22 00:30 [place] # (Auto) 0.60 K/uL (0.24-0.82) 11/04/22 00:30 Eos # (Auto) 0.06 K/uL (0-0.50) 11/04/22 00:30 Baso # (Auto) 0.01 K/uL (0-0.2) 11/04/22 00:30 Immature Gran # (Auto) 0.11 K/uL (0.00-0.02) H 11/04/22 00:30 Polychromasia 1+ 11/04/22 00:30 Tear Drop Cells 1+ 11/04/22 00:30 Ovalocytes 2+ 11/04/22 00:30 Acanthocytes (Spur) 1+ 11/04/22 00:30 Sodium 139 mmol/L (136-145) 11/04/22 00:30 Potassium 3.7 mmol/L (3.5-5.1) 11/04/22 00:30 Chloride 99 mmol/L (98-107) 11/04/22 00:30 Carbon Dioxide 24 mmol/L (21-32) 11/04/22 00:30 Anion Gap 16 (3-11) H 11/04/22 00:30 BUN 25 mg/dl (6-23) H 11/04/22 00:30 Creatinine 1.13 mg/dl (0.6-1.4) 11/04/22 00:30 Est Cr Clr Drug Dosing 53.8 ml/min 11/04/22 00:30 Est GFR ( Amer) 72.8 ml/min 11/04/22 00:30 Est GFR (Non-Af Amer) 62.8 ml/min 11/04/22 00:30 BUN/Creatinine Ratio 22.1 (10-20) H 11/04/22 00:30 Glucose 228 mg/dl (70-99(Fasting)) H 11/04/22 00:30 POC Glucose 278 mg/dl (70-99) H 11/04/22 02:54 Lactate 3.4 mmol/L (0.4-2.0) H* 11/04/22 01:30 Calcium 8.8 mg/dl (8.5-10.1) 11/04/22 00:30 Magnesium 2.1 mg/dl (1.7-2.4) 11/04/22 00:30 Total Bilirubin 0.9 mg/dl (0.2-1.0) 11/04/22 00:30 Direct Bilirubin 0.2 mg/dl (0-0.2) 11/04/22 00:30 AST 22 U/L (13-39) 11/04/22 00:30 ALT 40 U/L (7-52) 11/04/22 00:30 Alkaline Phosphatase 64 U/L (34-104) 11/04/22 00:30 Troponin I High Sens 294.9 pg/ml (0-20) H* 11/04/22 00:30 Total Protein 6.2 gm/dl (6.0-8.3) 11/04/22 00:30 Albumin 3.9 gm/dl (3.4-5.0) 11/04/22 00:30 Procalcitonin 0.14 ng/ml (0-0.5) 11/04/22 00:30 Digoxin 0.4 ng/ml (0.8-2.0) L 11/04/22 00:30 SARS-CoV-2, RNA, NAAT NEGATIVE (NEGATIVE) 11/04/22 00:30 Diagnostic Findings Chest x-ray as per my interpretation: No congestion, pacemaker EKG as per my interpretation : Rate 105, sinus tachycardia, normal axis, inferior and anterolateral ischemia
[2022-11-04] MEDS ORDERED: LANTUS PER UNIT CHARGE SQ STA ×2 (03:42→05:45)
[2022-11-04] MEDS ORDERED: GLUCOSE 40% GEL 15 GM TUBE PO PRN (04:14)
[2022-11-04] MEDS ORDERED: GLUCAGON FOR INJ 1 MG VIAL SQ PRN (04:14)
[2022-11-04] MEDS ORDERED: GLUCOSE 10 TAB/TUBE PO PRN (04:14)
[2022-11-04] MEDS ORDERED: NITROGLYCERIN SL 0.4 MG/TAB TAB SL PRN (04:14)
[2022-11-04] MEDS ORDERED: ACETAMINOPHEN 325 MG TAB PO PRN (04:14)
[2022-11-04] MEDS ORDERED: CARBOHYDRATES FOR HYPOGLYCEMIA PO PRN (04:14)
[2022-11-04] MEDS ORDERED: DEXTROSE 50% 50 ML SYRINGE IV PRN (04:14)
[2022-11-04] MEDS ORDERED: OPTIRAY 350 100ml IV ONE (05:04)
[2022-11-04] MEDS: INSULIN ASPART PER UNIT SC SCH ×4 (05:37→21:18)
--- NOTE | 2022-11-04 08:05 | XRay Report ---
XR chest 1V portable CLINICAL HISTORY: Sepsis TECHNIQUE: Single frontal radiograph of the chest was obtained. Comparison: Comparison is made to chest radiograph 05/01/2022 FINDINGS: Dual lead pacemaker is seen. Postsurgical changes of coronary artery bypass graft are seen. Cardiac s ilhouette is otherwise unremarkable. The lungs are clear, previously noted airspace opacities have re solved. No evidence of pleural effusion or pneumothorax. IMPRESSION: No acute abnormalities and in particular no evidence of pneumonia. ACT 112: Negative or not required by law. Electronically signed by: Tacho Lambert M.D. 11/04/2022 8:04 AM
[2022-11-04 08:07] LABS: Hematocrit (blood only) 30.8 % (40.1-51.0); Hemoglobin 10.7 g/dl (14.0-18.0); Mean Corpuscular Hgb Conc 34.7 g/dL (32.0-36.0); Mean Corpuscular Volume 95.1 fL (80.0-100.0); Mean Platelet Volume 11.1 fL (9.4-12.4); Platelet Count 126 K/uL (130-400); RDW Standard Deviation 47.2 fL (36.4-46.3); Red Blood Count 3.24 M/uL (4.63-6.08); White Blood Count 3.05 K/ul (4.8-10.8)
--- NOTE | 2022-11-04 08:32 | CT Scan Report ---
CT abd pelvis IV con only CLINICAL HISTORY: abd pain TECHNIQUE: Helical axial images of the abdomen and pelvis were obtained and displayed. Automated dose lowering techniques and/or adjustment according to patient size were utilized for this exam. This e xam was performed with intravenous contrast. CT DOSE: 371.23 mGy.cm COMPARISON: Comparison is made to CT abdomen pelvis 05/03/2022 FINDINGS: Lower chest: Interstitial thickening is seen. Liver: Unremarkable. No focal lesions are seen. Gallbladder and biliary tree: No calcified gallstones. Normal caliber wall. No intra- or extrahepatic biliary ductal dilation. Pancreas: Unremarkable, a few cystic lesions are seen which may represent IPMNs. Spleen: Unremarkable. Adrenals: Unremarkable. Kidneys and ureters: Numerous renal cysts are seen bilaterally. Bladder: Unremarkable. Reproductive organs: Unremarkable. Bowel: A rectal tube is seen. There is nonspecific wall thickening in the descending and sigmoid colo n. No diverticular disease is seen. Lymph nodes Retroperitoneal: Unremarkable. Pelvic: Unremarkable. Mesenteric: Unremarkable. Peritoneum: Normal. Vessels: Atherosclerotic calcifications are seen. Abdominal wall: Unremarkable. Bones: Degenerative changes in the visualized spine. Left hip arthroplasty is seen. Numerous lytic ap pearing foci in a few sclerotic foci are seen in the spine, similar to prior exam. Old healed rib fra ctures are seen. IMPRESSION: 1. Nonspecific wall thickening in the descending and sigmoid colon represents a nonspecific colitis, infectious/inflammatory or ischemic. 2. Multifocal lytic lesions are again seen compatible with history of multiple myeloma. 3. Emphysema is partially visualized. 4. Additional findings as above. ACT 112: Negative or not required by law. Electronically signed by: Tacho Lambert M.D. 11/04/2022 8:31 AM
[2022-11-04 08:34] LABS: Calcium 7.1 mg/dl (8.5-10.1); Potassium 3.6 mmol/L (3.5-5.1)
[2022-11-04 08:40] LABS: BUN Creatinine Ratio 21.2 (10-20); Creatinine Clr Calc Pharmacy 61.4 ml/min; Est GFR (African American) 85.4 ml/min; Est GFR (Non-African American) 73.7 ml/min
[2022-11-04 08:47] LABS: Basophils # (auto) 0.01 K/uL (0-0.2); Basophils % (auto) 0.3 %; Eosinophils # (auto) 0.06 K/uL (0-0.50); Immature Granulocytes # (auto) 0.07 K/uL (0.00-0.02); Immature Granulocytes % (auto) 2.3 %; Lymphocytes # (auto) 0.28 K/uL (1.2-3.4); Lymphocytes % (auto) 9.2 %; Monocytes # (auto) 0.44 K/uL (0.24-0.82); Monocytes % (auto) 14.4 %; Neutrophils # (auto) 2.19 K/uL (1.4-6.5); Neutrophils % (auto) 71.8 %; Ovalocytes 1+
[2022-11-04] MEDS: ATORVASTATIN 40 MG TAB PO SCH (09:00)
[2022-11-04] MEDS: APIXABAN 5 MG TABLET PO SCH ×2 (09:00→21:08)
[2022-11-04] MEDS: FERROUS SULFATE 325 MG TAB PO SCH (09:01)
[2022-11-04] MEDS: METOPROLOL SUCC 50MG EXT REL TAB PO SCH ×2 (09:01→21:07)
[2022-11-04] MEDS: GABAPENTIN 300 MG CAP PO SCH (09:01)
[2022-11-04] MEDS: MoRPHine SULFATE IR 15 MG TAB (IMMEDIATE RELEASE) PO PRN ×2 (09:27→21:49)
[2022-11-04 09:30] LABS: Troponin I High Sensitivity 345.1 pg/ml (0-20)
[2022-11-04 09:30] LABS: Appearance Urine Clear (Clear); Bacteria Urine Automated Negative (Negative); Bilirubin Urine Negative (Negative); Blood Urine Trace (Negative); Color Urine Yellow; Epithelial Cell Urine Auto 0-5 /lpf (0-5); Glucose Urine UA 3+ (Negative); Ketones Urine Trace (Negative); Leukocyte Esterase Urine Negative (Negative); Nitrite Urine Negative (Negative); Protein Urine Negative (Negative); Specific Gravity Urine 1.028 (1.000-1.030); Urobilinogen Urine Negative (Negative); pH Urine 5.5 (4.5-7.5)
[2022-11-04 14:48] LABS: Adenovirus F 40/41 PCR Not Detected (NotDetected); Astrovirus PCR Not Detected (NotDetected); Campylobacter PCR Not Detected (NotDetected); Cryptosporidium PCR Not Detected (NotDetected); Cyclospora cayetanensis PCR Not Detected (NotDetected); Entamoeba histolytica PCR Not Detected (NotDetected); Enteroaggregative E.coli(EAEC) Not Detected (NotDetected); Enteropathogenic E.coli (EPEC) Not Detected (NotDetected); Enterotoxigenic E.coli (ETEC) Not Detected (NotDetected); Giardia lamblia PCR Not Detected (NotDetected); Norovirus GI/GII PCR Not Detected (NotDetected); Plesiomonas shigelloides PCR Not Detected (NotDetected); Rotavirus A PCR Not Detected (NotDetected); Salmonella PCR Not Detected (NotDetected); Sapovirus PCR Not Detected (NotDetected); Shiga-like Toxin E.coli (STEC) Not Detected (NotDetected); Shigella/Enteroinvasive E.coli Not Detected (NotDetected); Vibrio cholerae PCR Not Detected (NotDetected); Vibrio species PCR Not Detected (NotDetected); Yersinia enterocolitica PCR Not Detected (NotDetected)
[2022-11-04] MEDS: DIGOXIN 0.125 MG TAB PO SCH (16:08)
[2022-11-04 17:45] LABS: BUN Creatinine Ratio 19.8 (10-20); Calcium 7.1 mg/dl (8.5-10.1); Creatinine Clr Calc Pharmacy 70.7 ml/min; Est GFR (African American) 97.6 ml/min; Est GFR (Non-African American) 84.2 ml/min; Magnesium 1.8 mg/dl (1.7-2.4); Phosphorus 2.3 mg/dl (2.5-4.9); Potassium 3.7 mmol/L (3.5-5.1)
[2022-11-04] MEDS ORDERED: LANTUS PER UNIT CHARGE SQ SCH ×2 (21:00)
[2022-11-04] MEDS: LANTUS PER UNIT CHARGE SQ SCH (21:18)
[2022-11-04 22:04] LABS: Hematocrit (blood only) 25.8 % (40.1-51.0)
[2022-11-05] MEDS ORDERED: SODIUM CHLORIDE 0.9% 500 ML IV SCH (00:45)
--- NOTE | 2022-11-05 07:13 | Hospitalist Progress Note ---
Date of Service November 05, 2022 Assessment & Plan (1) Hypovolemia: Plan: Secondary to diarrhea Colitis on CT Stool PCR negative, c.diff negative FOBT positive Immunocompromised state/ History multiple myeloma ongoing chemotherapy - Dr. Garcia notified by me about pt's hospitalization CT abd. pelvis IMPRESSION: 1. Nonspecific wall thickening in the descending and sigmoid colon represents a nonspecific colitis, infectious/inflammatory or ischemic. 2. Multifocal lytic lesions are again seen compatible with history of multiple myeloma. 3. Emphysema is partially visualized. 4. Additional findings as above. Given + FOBT, hold eliquis for now Cont. to closely monitor H&H GI consulted Elevated lactic acid - monitor response to IVF Gentle hydration given cardiomyopathy Troponin elevation secondary to above Troponin trended down No chest pain Monitor on tele Appropriate to hold BP meds for now except for low dose beta-annika chronic systolic heart failure (EF 40 to 45%, TTE 2021), patient on the dry side hx CAD status post CABG/PVD status post surgery SSS status post PPM on Eliquis (now holding eliquis, as above) valvular heart disease (mild MR/TR), pulmonary hypertension DM2 insulin requiring, patient hyperglycemic possibly from recent outpatient hydrocortisone dose from chemotherapy, well-controlled as of outpatient hemoglobin A1c of 6.24 August 2022 Basal bolus insulin, ISS BG goal 110-140, carb count coverage Chronic anemia, hemoglobin better on admission than baseline secondary to hemoconcentration However pt now on IVF and FOBT found positive Monitor H&H GI consulted past tobacco abuse DVT prophylaxis. Eliquis on hold now DNR Admission and Anticipated Discharge Date Admission Date: November 04, 2022 Subjective Pt seen in follow up of severe diarrhea, hx of MM on chemo (w/ Dr. Garcia), FOBT also positive c. diff and stol PCR negative ? Colitis on CT Currently patient is laying in bed, in no acute distress Reports diarrhea is improving Had 1 BM this morning - reports it was dark and soft Rectal tube was removed in ED last evening Denies fevers chills chest pain shortness of breath Seen by gastroenterology today. Review of Systems 2 Review of Systems: All systems reviewed & are unremarkable except as noted in Subjective Physical Exam Physical Exam: GENERAL: Comfortable, pleasant, no respiratory distress SKIN: Pallor, warm HEENT: NC/AT. EOMI. Partial alopecia, pale palpebral conjunctivae NECK : Supple, no tenderness CHEST : Decreased breath sounds, no tenderness HEART : RRR, no obvious murmurs ABDOMEN: Some distention, minimal hypogastric tenderness EXTREMITIES : No LE swelling/tenderness, moves extremities NEUROLOGIC : awake and alert, answering questions appropriately, no facial asymmetry, moves extremities Results & Data Results & Data ([facility]) Vital Signs (Past 12 Hours) Vital Signs Temp Pulse Pulse Pulse Resp BP BP 11/05/22 05:10 79 11/05/22 04:18 82 98/62 L 11/05/22 02:47 37.1 C 80 18 89/48 L 11/05/22 01:57 78 16 93/53 L 11/04/22 23:15 36.9 C 84 18 84/49 L 11/04/22 20:54 37.2 C 86 18 109/62 11/04/22 20:00 89 16 111/48 L 11/04/22 19:30 90 15 117/50 L Pulse Ox O2 Del Method 11/05/22 05:10 11/05/22 04:18 11/05/22 02:47 97 Room Air 11/05/22 01:57 99 Room Air 11/04/22 23:15 100 Room Air 11/04/22 20:54 98 Room Air 11/04/22 20:00 97 11/04/22 19:30 98 Laboratory Results 11/05/22 11/05/22 11/05/22 Range/Units 07:44 06:36 06:36 WBC 2.91 L (4.8-10.8) K/ul RBC 2.90 L (4.63-6.08) M/uL Hgb 9.5 L (14.0-18.0) g/dl Hct 27.4 L (40.1-51.0) % MCV 94.5 (80.0-100.0) fL MCH 32.8 (25.0-34.0) pg MCHC 34.7 (32.0-36.0) g/dL RDW Std Deviation 46.6 H (36.4-46.3) fL RDW Coeff of Collin 14.0 (11.5-14.5) % Plt Count 109 L (130-400) K/uL MPV 10.4 (9.4-12.4) fL Immature Gran % (Auto) % Neut % (Auto) % Lymph % (Auto) % Brown % (Auto) % Eos % (Auto) % Baso % (Auto) % Neut # (Auto) (1.4-6.5) K/uL Lymph # (Auto) (1.2-3.4) K/uL Brown # (Auto) (0.24-0.82) K/uL Eos # (Auto) (0-0.50) K/uL Baso # (Auto) (0-0.2) K/uL Immature Gran # (Auto) (0.00-0.02) K/uL Ovalocytes Sodium 142 (136-145) mmol/L Potassium 3.4 L (3.5-5.1) mmol/L Chloride 111 H (98-107) mmol/L Carbon Dioxide 26 (21-32) mmol/L Anion Gap 5 (3-11) BUN 11 (6-23) mg/dl Creatinine 0.76 (0.6-1.4) mg/dl Est Cr Clr Drug Dosing 80.0 ml/min Est GFR ( Amer) 102.7 ml/min Est GFR (Non-Af Amer) 88.6 ml/min BUN/Creatinine Ratio 14.5 (10-20) Glucose 77 (70-99(Fasting)) mg/dl POC Glucose 93 (70-99) mg/dl Lactate (0.4-2.0) mmol/L Calcium 7.0 L (8.5-10.1) mg/dl Phosphorus 1.9 L (2.5-4.9) mg/dl Magnesium 1.7 (1.7-2.4) mg/dl Troponin I High Sens (0-20) pg/ml Urine Color Urine Appearance (Clear) Urine pH (4.5-7.5) Ur Specific Ravia (1.000-1.030) Urine Protein (Negative) Urine Glucose (UA) (Negative) Urine Ketones (Negative) Urine Blood (Negative) Urine Nitrite (Negative) Urine Bilirubin (Negative) Urine Urobilinogen (Negative) Ur Leukocyte Esterase (Negative) Urine WBC (Auto) (0-5) /hpf Urine RBC (Auto) (0-4) /hpf U Hyaline Cast (Auto) (0-5) /lpf U Epithel Cells (Auto) (0-5) /lpf Urine Bacteria (Auto) (Negative) Stl C. cayetanensis PCR (NotDetected) Stool Rotavirus A PCR (NotDetected) Stl Adenov F 40/41 PCR (NotDetected) Stool Astrovirus (PCR) (NotDetected) Stool Campylobacter PCR (NotDetected) Stl C. diff Tox B Gene (Neg) Stool Cryptosporidium PCR (NotDetected) Stl E.coli Shiga Tox PCR (NotDetected) Stl Enterotoxigenic E PCR (NotDetected) Stool EPEC (PCR) (NotDetected) Stool EAEC (PCR) (NotDetected) Stl E. histolytica PCR (NotDetected) Stool Giardia Lamblia PCR (NotDetected) Stool Salmonella PCR (NotDetected) Stool Sapovirus (PCR) (NotDetected) Stl P. shigelloides PCR (NotDetected) Stl Shigella/EIEC PCR (NotDetected) St Y.enterocolitica PCR (NotDetected) Stool Vibrio (PCR) (NotDetected) Stl Vibrio cholerae PCR (NotDetected) Stl Norovirus GI/GII PCR (NotDetected) 11/04/22 11/04/22 11/04/22 Range/Units 21:16 21:16 21:13 WBC (4.8-10.8) K/ul RBC (4.63-6.08) M/uL Hgb 9.0 L (14.0-18.0) g/dl Hct 25.8 L (40.1-51.0) % MCV (80.0-100.0) fL MCH (25.0-34.0) pg MCHC (32.0-36.0) g/dL RDW Std Deviation (36.4-46.3) fL RDW Coeff of Collin (11.5-14.5) % Plt Count (130-400) K/uL MPV (9.4-12.4) fL Immature Gran % (Auto) % Neut % (Auto) % Lymph % (Auto) % Brown % (Auto) % Eos % (Auto) % Baso % (Auto) % Neut # (Auto) (1.4-6.5) K/uL Lymph # (Auto) (1.2-3.4) K/uL Brown # (Auto) (0.24-0.82) K/uL Eos # (Auto) (0-0.50) K/uL Baso # (Auto) (0-0.2) K/uL Immature Gran # (Auto) (0.00-0.02) K/uL Ovalocytes Sodium (136-145) mmol/L Potassium (3.5-5.1) mmol/L Chloride (98-107) mmol/L Carbon Dioxide (21-32) mmol/L Anion Gap (3-11) BUN (6-23) mg/dl Creatinine (0.6-1.4) mg/dl Est Cr Clr Drug Dosing ml/min Est GFR ( Amer) ml/min Est GFR (Non-Af Amer) ml/min BUN/Creatinine Ratio (10-20) Glucose (70-99(Fasting)) mg/dl POC Glucose 294 H (70-99) mg/dl Lactate 2.7 H* (0.4-2.0) mmol/L Calcium (8.5-10.1) mg/dl Phosphorus (2.5-4.9) mg/dl Magnesium (1.7-2.4) mg/dl Troponin I High Sens (0-20) pg/ml Urine Color Urine Appearance (Clear) Urine pH (4.5-7.5) Ur Specific Ravia (1.000-1.030) Urine Protein (Negative) Urine Glucose (UA) (Negative) Urine Ketones (Negative) Urine Blood (Negative) Urine Nitrite (Negative) Urine Bilirubin (Negative) Urine Urobilinogen (Negative) Ur Leukocyte Esterase (Negative) Urine WBC (Auto) (0-5) /hpf Urine RBC (Auto) (0-4) /hpf U Hyaline Cast (Auto) (0-5) /lpf U Epithel Cells (Auto) (0-5) /lpf Urine Bacteria (Auto) (Negative) Stl C. cayetanensis PCR (NotDetected) Stool Rotavirus A PCR (NotDetected) Stl Adenov F 40/41 PCR (NotDetected) Stool Astrovirus (PCR) (NotDetected) Stool Campylobacter PCR (NotDetected) Stl C. diff Tox B Gene (Neg) Stool Cryptosporidium PCR (NotDetected) Stl E.coli Shiga Tox PCR (NotDetected) Stl Enterotoxigenic E PCR (NotDetected) Stool EPEC (PCR) (NotDetected) Stool EAEC (PCR) (NotDetected) Stl E. histolytica PCR (NotDetected) Stool Giardia Lamblia PCR (NotDetected) Stool Salmonella PCR (NotDetected) Stool Sapovirus (PCR) (NotDetected) Stl P. shigelloides PCR (NotDetected) Stl Shigella/EIEC PCR (NotDetected) St Y.enterocolitica PCR (NotDetected) Stool Vibrio (PCR) (NotDetected) Stl Vibrio cholerae PCR (NotDetected) Stl Norovirus GI/GII PCR (NotDetected) 11/04/22 11/04/22 11/04/22 Range/Units 17:52 16:06 15:22 WBC (4.8-10.8) K/ul RBC (4.63-6.08) M/uL Hgb (14.0-18.0) g/dl Hct (40.1-51.0) % MCV (80.0-100.0) fL MCH (25.0-34.0) pg MCHC (32.0-36.0) g/dL RDW Std Deviation (36.4-46.3) fL RDW Coeff of Collin (11.5-14.5) % Plt Count (130-400) K/uL MPV (9.4-12.4) fL Immature Gran % (Auto) % Neut % (Auto) % Lymph % (Auto) % Brown % (Auto) % Eos % (Auto) % Baso % (Auto) % Neut # (Auto) (1.4-6.5) K/uL Lymph # (Auto) (1.2-3.4) K/uL Brown # (Auto) (0.24-0.82) K/uL Eos # (Auto) (0-0.50) K/uL Baso # (Auto) (0-0.2) K/uL Immature Gran # (Auto) (0.00-0.02) K/uL Ovalocytes Sodium 136 (136-145) mmol/L Potassium 3.7 (3.5-5.1) mmol/L Chloride 106 (98-107) mmol/L Carbon Dioxide 23 (21-32) mmol/L Anion Gap 7 (3-11) BUN 17 (6-23) mg/dl Creatinine 0.86 (0.6-1.4) mg/dl Est Cr Clr Drug Dosing 70.7 ml/min Est GFR ( Amer) 97.6 ml/min Est GFR (Non-Af Amer) 84.2 ml/min BUN/Creatinine Ratio 19.8 (10-20) Glucose 322 H* (70-99(Fasting)) mg/dl POC Glucose 243 H (70-99) mg/dl Lactate 2.3 H* (0.4-2.0) mmol/L Calcium 7.1 L (8.5-10.1) mg/dl Phosphorus 2.3 L (2.5-4.9) mg/dl Magnesium 1.8 (1.7-2.4) mg/dl Troponin I High Sens (0-20) pg/ml Urine Color Urine Appearance (Clear) Urine pH (4.5-7.5) Ur Specific Ravia (1.000-1.030) Urine Protein (Negative) Urine Glucose (UA) (Negative) Urine Ketones (Negative) Urine Blood (Negative) Urine Nitrite (Negative) Urine Bilirubin (Negative) Urine Urobilinogen (Negative) Ur Leukocyte Esterase (Negative) Urine WBC (Auto) (0-5) /hpf Urine RBC (Auto) (0-4) /hpf U Hyaline Cast (Auto) (0-5) /lpf U Epithel Cells (Auto) (0-5) /lpf Urine Bacteria (Auto) (Negative) Stl C. cayetanensis PCR (NotDetected) Stool Rotavirus A PCR (NotDetected) Stl Adenov F 40/41 PCR (NotDetected) Stool Astrovirus (PCR) (NotDetected) Stool Campylobacter PCR (NotDetected) Stl C. diff Tox B Gene (Neg) Stool Cryptosporidium PCR (NotDetected) Stl E.coli Shiga Tox PCR (NotDetected) Stl Enterotoxigenic E PCR (NotDetected) Stool EPEC (PCR) (NotDetected) Stool EAEC (PCR) (NotDetected) Stl E. histolytica PCR (NotDetected) Stool Giardia Lamblia PCR (NotDetected) Stool Salmonella PCR (NotDetected) Stool Sapovirus (PCR) (NotDetected) Stl P. shigelloides PCR (NotDetected) Stl Shigella/EIEC PCR (NotDetected) St Y.enterocolitica PCR (NotDetected) Stool Vibrio (PCR) (NotDetected) Stl Vibrio cholerae PCR (NotDetected) Stl Norovirus GI/GII PCR (NotDetected) 11/04/22 11/04/22 11/04/22 Range/Units 15:20 11:40 09:45 WBC (4.8-10.8) K/ul RBC (4.63-6.08) M/uL Hgb (14.0-18.0) g/dl Hct (40.1-51.0) % MCV (80.0-100.0) fL MCH (25.0-34.0) pg MCHC (32.0-36.0) g/dL RDW Std Deviation (36.4-46.3) fL RDW Coeff of Collin (11.5-14.5) % Plt Count (130-400) K/uL MPV (9.4-12.4) fL Immature Gran % (Auto) % Neut % (Auto) % Lymph % (Auto) % Brown % (Auto) % Eos % (Auto) % Baso % (Auto) % Neut # (Auto) (1.4-6.5) K/uL Lymph # (Auto) (1.2-3.4) K/uL Brown # (Auto) (0.24-0.82) K/uL Eos # (Auto) (0-0.50) K/uL Baso # (Auto) (0-0.2) K/uL Immature Gran # (Auto) (0.00-0.02) K/uL Ovalocytes Sodium (136-145) mmol/L Potassium (3.5-5.1) mmol/L Chloride (98-107) mmol/L Carbon Dioxide (21-32) mmol/L Anion Gap (3-11) BUN (6-23) mg/dl Creatinine (0.6-1.4) mg/dl Est Cr Clr Drug Dosing ml/min Est GFR ( Amer) ml/min Est GFR (Non-Af Amer) ml/min BUN/Creatinine Ratio (10-20) Glucose (70-99(Fasting)) mg/dl POC Glucose 273 H (70-99) mg/dl Lactate (0.4-2.0) mmol/L Calcium (8.5-10.1) mg/dl Phosphorus (2.5-4.9) mg/dl Magnesium (1.7-2.4) mg/dl Troponin I High Sens 191.5 H* D (0-20) pg/ml Urine Color Urine Appearance (Clear) Urine pH (4.5-7.5) Ur Specific Ravia (1.000-1.030) Urine Protein (Negative) Urine Glucose (UA) (Negative) Urine Ketones (Negative) Urine Blood (Negative) Urine Nitrite (Negative) Urine Bilirubin (Negative) Urine Urobilinogen (Negative) Ur Leukocyte Esterase (Negative) Urine WBC (Auto) (0-5) /hpf Urine RBC (Auto) (0-4) /hpf U Hyaline Cast (Auto) (0-5) /lpf U Epithel Cells (Auto) (0-5) /lpf Urine Bacteria (Auto) (Negative) Stl C. cayetanensis PCR Not Detected (NotDetected) Stool Rotavirus A PCR Not Detected (NotDetected) Stl Adenov F 40/41 PCR Not Detected (NotDetected) Stool Astrovirus (PCR) Not Detected (NotDetected) Stool Campylobacter PCR Not Detected (NotDetected) Stl C. diff Tox B Gene (Neg) Stool Cryptosporidium PCR Not Detected (NotDetected) Stl E.coli Shiga Tox PCR Not Detected (NotDetected) Stl Enterotoxigenic E PCR Not Detected (NotDetected) Stool EPEC (PCR) Not Detected (NotDetected) Stool EAEC (PCR) Not Detected (NotDetected) Stl E. histolytica PCR Not Detected (NotDetected) Stool Giardia Lamblia PCR Not Detected (NotDetected) Stool Salmonella PCR Not Detected (NotDetected) Stool Sapovirus (PCR) Not Detected (NotDetected) Stl P. shigelloides PCR Not Detected (NotDetected) Stl Shigella/EIEC PCR Not Detected (NotDetected) St Y.enterocolitica PCR Not Detected (NotDetected) Stool Vibrio (PCR) Not Detected (NotDetected) Stl Vibrio cholerae PCR Not Detected (NotDetected) Stl Norovirus GI/GII PCR Not Detected (NotDetected) 11/04/22 11/04/22 11/04/22 Range/Units 09:45 09:12 09:12 WBC (4.8-10.8) K/ul RBC (4.63-6.08) M/uL Hgb (14.0-18.0) g/dl Hct (40.1-51.0) % MCV (80.0-100.0) fL MCH (25.0-34.0) pg MCHC (32.0-36.0) g/dL RDW Std Deviation (36.4-46.3) fL RDW Coeff of Collin (11.5-14.5) % Plt Count (130-400) K/uL MPV (9.4-12.4) fL Immature Gran % (Auto) % Neut % (Auto) % Lymph % (Auto) % Brown % (Auto) % Eos % (Auto) % Baso % (Auto) % Neut # (Auto) (1.4-6.5) K/uL Lymph # (Auto) (1.2-3.4) K/uL Brown # (Auto) (0.24-0.82) K/uL Eos # (Auto) (0-0.50) K/uL Baso # (Auto) (0-0.2) K/uL Immature Gran # (Auto) (0.00-0.02) K/uL Ovalocytes Sodium (136-145) mmol/L Potassium (3.5-5.1) mmol/L Chloride (98-107) mmol/L Carbon Dioxide (21-32) mmol/L Anion Gap (3-11) BUN (6-23) mg/dl Creatinine (0.6-1.4) mg/dl Est Cr Clr Drug Dosing ml/min Est GFR ( Amer) ml/min Est GFR (Non-Af Amer) ml/min BUN/Creatinine Ratio (10-20) Glucose (70-99(Fasting)) mg/dl POC Glucose 276 H (70-99) mg/dl Lactate (0.4-2.0) mmol/L Calcium (8.5-10.1) mg/dl Phosphorus (2.5-4.9) mg/dl Magnesium (1.7-2.4) mg/dl Troponin I High Sens (0-20) pg/ml Urine Color Yellow Urine Appearance Clear (Clear) Urine pH 5.5 (4.5-7.5) Ur Specific Ravia 1.028 (1.000-1.030) Urine Protein Negative (Negative) Urine Glucose (UA) 3+ H (Negative) Urine Ketones Trace H (Negative) Urine Blood Trace H (Negative) Urine Nitrite Negative (Negative) Urine Bilirubin Negative (Negative) Urine Urobilinogen Negative (Negative) Ur Leukocyte Esterase Negative (Negative) Urine WBC (Auto) 1-5 (0-5) /hpf Urine RBC (Auto) 5-10 H (0-4) /hpf U Hyaline Cast (Auto) 1-5 (0-5) /lpf U Epithel Cells (Auto) 0-5 (0-5) /lpf Urine Bacteria (Auto) Negative (Negative) Stl C. cayetanensis PCR (NotDetected) Stool Rotavirus A PCR (NotDetected) Stl Adenov F 40/41 PCR (NotDetected) Stool Astrovirus (PCR) (NotDetected) Stool Campylobacter PCR (NotDetected) Stl C. diff Tox B Gene Negative Cdiff Gene (Neg) Stool Cryptosporidium PCR (NotDetected) Stl E.coli Shiga Tox PCR (NotDetected) Stl Enterotoxigenic E PCR (NotDetected) Stool EPEC (PCR) (NotDetected) Stool EAEC (PCR) (NotDetected) Stl E. histolytica PCR (NotDetected) Stool Giardia Lamblia PCR (NotDetected) Stool Salmonella PCR (NotDetected) Stool Sapovirus (PCR) (NotDetected) Stl P. shigelloides PCR (NotDetected) Stl Shigella/EIEC PCR (NotDetected) St Y.enterocolitica PCR (NotDetected) Stool Vibrio (PCR) (NotDetected) Stl Vibrio cholerae PCR (NotDetected) Stl Norovirus GI/GII PCR (NotDetected) 11/04/22 11/04/2223 Range/Units 07:53 07:53 07:53 WBC 3.05 L (4.8-10.8) K/ul RBC 3.24 L (4.63-6.08) M/uL Hgb 10.7 L (14.0-18.0) g/dl Hct 30.8 L (40.1-51.0) % MCV 95.1 (80.0-100.0) fL MCH 33.0 (25.0-34.0) pg MCHC 34.7 (32.0-36.0) g/dL RDW Std Deviation 47.2 H (36.4-46.3) fL RDW Coeff of Collin 14.0 (11.5-14.5) % Plt Count 126 L (130-400) K/uL MPV 11.1 (9.4-12.4) fL Immature Gran % (Auto) 2.3 % Neut % (Auto) 71.8 % Lymph % (Auto) 9.2 % Brown % (Auto) 14.4 % Eos % (Auto) 2.0 % Baso % (Auto) 0.3 % Neut # (Auto) 2.19 (1.4-6.5) K/uL Lymph # (Auto) 0.28 L (1.2-3.4) K/uL Brown # (Auto) 0.44 (0.24-0.82) K/uL Eos # (Auto) 0.06 (0-0.50) K/uL Baso # (Auto) 0.01 (0-0.2) K/uL Immature Gran # (Auto) 0.07 H (0.00-0.02) K/uL Ovalocytes 1+ Sodium 133 L (136-145) mmol/L Potassium 3.6 (3.5-5.1) mmol/L Chloride 106 (98-107) mmol/L Carbon Dioxide 24 (21-32) mmol/L Anion Gap 3 (3-11) BUN 21 (6-23) mg/dl Creatinine 0.99 (0.6-1.4) mg/dl Est Cr Clr Drug Dosing 61.4 ml/min Est GFR ( Amer) 85.4 ml/min Est GFR (Non-Af Amer) 73.7 ml/min BUN/Creatinine Ratio 21.2 H (10-20) Glucose 282 H (70-99(Fasting)) mg/dl POC Glucose (70-99) mg/dl Lactate 3.3 H* (0.4-2.0) mmol/L Calcium 7.1 L (8.5-10.1) mg/dl Phosphorus (2.5-4.9) mg/dl Magnesium (1.7-2.4) mg/dl Troponin I High Sens 345.1 H* (0-20) pg/ml Urine Color Urine Appearance (Clear) Urine pH (4.5-7.5) Ur Specific Ravia (1.000-1.030) Urine Protein (Negative) Urine Glucose (UA) (Negative) Urine Ketones (Negative) Urine Blood (Negative) Urine Nitrite (Negative) Urine Bilirubin (Negative) Urine Urobilinogen (Negative) Ur Leukocyte Esterase (Negative) Urine WBC (Auto) (0-5) /hpf Urine RBC (Auto) (0-4) /hpf U Hyaline Cast (Auto) (0-5) /lpf U Epithel Cells (Auto) (0-5) /lpf Urine Bacteria (Auto) (Negative) Stl C. cayetanensis PCR (NotDetected) Stool Rotavirus A PCR (NotDetected) Stl Adenov F 40/41 PCR (NotDetected) Stool Astrovirus (PCR) (NotDetected) Stool Campylobacter PCR (NotDetected) Stl C. diff Tox B Gene (Neg) Stool Cryptosporidium PCR (NotDetected) Stl E.coli Shiga Tox PCR (NotDetected) Stl Enterotoxigenic E PCR (NotDetected) Stool EPEC (PCR) (NotDetected) Stool EAEC (PCR) (NotDetected) Stl E. histolytica PCR (NotDetected) Stool Giardia Lamblia PCR (NotDetected) Stool Salmonella PCR (NotDetected) Stool Sapovirus (PCR) (NotDetected) Stl P. shigelloides PCR (NotDetected) Stl Shigella/EIEC PCR (NotDetected) St Y.enterocolitica PCR (NotDetected) Stool Vibrio (PCR) (NotDetected) Stl Vibrio cholerae PCR (NotDetected) Stl Norovirus GI/GII PCR (NotDetected) Medications Administered Current Inpatient Medications Acetaminophen (Acetaminophen 325 Mg Tab) 650 mg PO Q4H PRN PRN Reason: Pain or Fever Stop: 12/04/22 04:13 Apixaban (Apixaban 5 Mg Tablet) 5 mg PO BID [facility] Stop: 12/04/22 08:59 Last Admin: 11/04/22 21:08 Dose: 5 mg Atorvastatin Calcium (Atorvastatin 40 Mg Tab) 40 mg PO DAILY [facility] Stop: 12/04/22 08:59 Last Admin: 11/04/22 09:00 Dose: 40 mg Dextrose (Dextrose 50% 50 Ml Syringe) 25 - 50 ml IV UD PRN; Protocol PRN Reason: Hypoglycemia Protocol Stop: 12/04/22 04:13 Digoxin (Digoxin 0.125 Mg Tab) 0.125 mg PO DAILY@1600 [facility] Stop: 12/04/22 15:59 Last Admin: 11/04/22 16:08 Dose: 0.125 mg Ferrous Sulfate (Ferrous Sulfate 325 Mg Tab) 325 mg PO DAILY [facility] Stop: 12/04/22 08:59 Last Admin: 11/04/22 09:01 Dose: 325 mg Gabapentin (Gabapentin 300 Mg Cap) 300 mg PO QAM [facility] Stop: 12/04/22 08:59 Last Admin: 11/04/22 09:01 Dose: 300 mg Glucagon (Glucagon For Inj 1 Mg Vial) 1 mg SQ UD PRN; Protocol PRN Reason: Hypoglycemia Protocol Stop: 12/04/22 04:13 Glucose (Glucose 40% Gel 15 Gm Tube) 15 - 30 gm PO UD PRN; Protocol PRN Reason: Hypoglycemia Protocol Stop: 12/04/22 04:13 Glucose (Glucose 10 Tab/Tube) 4 - 8 tab PO UD PRN; Protocol PRN Reason: Hypoglycemia Treatment Stop: 12/04/22 04:13 Insulin Aspart (Insulin Aspart Per Unit) 0 units SC ACHS [facility] Stop: 12/04/22 04:13 Last Admin: 11/04/22 21:18 Dose: 7 units Insulin Glargine (Lantus Per Unit Charge) 25 units SQ HS [facility] Stop: 12/04/22 20:59 Last Admin: 11/04/22 21:18 Dose: 25 units Metoprolol Succinate (Metoprolol Succ 50mg Ext Rel Tab) 12.5 mg PO BID [facility] Stop: 12/04/22 08:59 Last Admin: 11/04/22 21:07 Dose: 12.5 mg Miscellaneous (Carbohydrates For Hypoglycemia ) 15 - 30 gm PO UD PRN PRN Reason: Hypoglycemia Protocol Stop: 12/04/22 04:13 Morphine Sulfate (Morphine Sulfate Ir 15 Mg Tab (Immediate Release)) 15 mg PO Q4H PRN PRN Reason: Pain Stop: 11/18/22 04:13 Last Admin: 11/04/22 21:49 Dose: 15 mg Nitroglycerin (Nitroglycerin Sl 0.4 Mg/Tab Tab) 0.4 mg SL Q5M PRN PRN Reason: Chest Pain Stop: 12/04/22 04:13
[2022-11-05 07:21] LABS: Hematocrit (blood only) 27.4 % (40.1-51.0); Hemoglobin 9.5 g/dl (14.0-18.0); Mean Corpuscular Hemoglobin 32.8 pg (25.0-34.0); Mean Corpuscular Hgb Conc 34.7 g/dL (32.0-36.0); Mean Corpuscular Volume 94.5 fL (80.0-100.0); Mean Platelet Volume 10.4 fL (9.4-12.4); Platelet Count 109 K/uL (130-400); RDW Standard Deviation 46.6 fL (36.4-46.3); White Blood Count 2.91 K/ul (4.8-10.8)
[2022-11-05 07:43] LABS: Magnesium 1.7 mg/dl (1.7-2.4); Potassium 3.4 mmol/L (3.5-5.1)
[2022-11-05 07:49] LABS: BUN Creatinine Ratio 14.5 (10-20); Est GFR (African American) 102.7 ml/min; Est GFR (Non-African American) 88.6 ml/min; Phosphorus 1.9 mg/dl (2.5-4.9)
[2022-11-05] MEDS ORDERED: POTASSIUM PHOS 3 MMOL/1 ML INFUSION IV STA (07:54)
[2022-11-05] MEDS ORDERED: POTASSIUM PHOSPHATE 15 MMOL in SODIUM CHLORIDE 0.9% 250 ML IV ONE (08:15)
[2022-11-05] MEDS: METOPROLOL SUCC 50MG EXT REL TAB PO SCH ×2 (09:05→20:38)
--- NOTE | 2022-11-05 09:35 | Gastrointestinal Consultation ---
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 DDX discussed: infectious colitis, chemo-induced diarrhea, ischemic colitis vs other.As he is clinically improving, he does not wish to undergo colonoscopy evaluation at this time. C.diff negative Stool culture negative Heme positive stool without evidence of active GI bleeding Trend HGB Monitor output Can use Questran 1 packet once daily for diarrhea as needed He is overdue for a colonoscopy but does not wish to have this completed at this time Thank you for allowing us to participate in the care of this patient. Please call with any acute changes, questions or concerns. Please see addendum below with additional recommendation from my supervising physician. Supervising Physician Co-Signing Physician Notes I have seen and examined the patient with MADISON Nelson whose note reflects our findings and plan. 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 GI asked to evaluate. Pt was seen and evaluated, chart reviewed. Notes that a few weeks ago, had change in his chemotherapy regimen. Two days ago, developed loose, watery stools, cramping and urgency. He denies seeing any black or bloody BMs. He suggests overnight he started to feel better. Last BM was semi-formed and yesterday. This AM he is hungry, wants to eat. Fecal occult positive C.diff negative Stool culture negative CTAP 2022: Nonspecific wall thickening in the descending and sigmoid colon represents a nonspecific colitis, infectious/inflammatory or ischemic. Multifo abril lytic lesions are again seen compatible with history of multiple myeloma. Emphysema is partially visualized. Additional findings as above. Colonoscopy 10 + years ago at [facility]. Notes he is due for one currently but after discussing with his oncolgoist, they elected to hold on colonoscopy right now. Allergies Allergy/AdvReac Type Severity Reaction Status Date / Time tizanidine Allergy Unknown UNKNOWN--ON Verified 11/04/22 01:49 [facility] [place] Medications Medication Instructions Recorded Confirmed Type apixaban 5 mg tablet (Eliquis) 5 mg PO BID 06/25/20 11/04/22 History atorvastatin 40 mg tablet 40 mg PO DAILY 06/25/20 11/04/22 History insulin glargine 100 unit/mL (3 40 unit subcut QPM 06/25/20 11/04/22 History mL) subcutaneous pen (Basaglar KwikPen U-100 Insulin) isosorbide mononitrate 30 mg 30 mg PO DAILY 06/25/20 11/04/22 History tablet,extended release 24 hr liraglutide 0.6 mg/0.1 mL (18 mg/3 1.2 mg subcut DAILY 09/30/21 11/04/22 History mL) subcutaneous pen injector ([employer] 2-Jed) ondansetron 8 mg disintegrating 8 mg PO Q8H PRN Nausea 09/30/21 11/04/22 History tablet prochlorperazine maleate 10 mg 10 mg PO Q6H PRN nausea 09/30/21 11/04/22 History tablet polyethylene glycol 3350 17 gram 17 g PO DAILY PRN constipation #15 10/05/21 11/04/22 Rx oral powder packet (Miralax) ea insulin aspart U-100 100 unit/mL 10 unit subcut TIDM 11/01/21 11/04/22 History (3 mL) subcutaneous pen (Novolog FlexPen U-100 Insulin aspart) nitroglycerin 0.4 mg sublingual 0.4 mg sublingual .Q 5 MIN PRN 11/01/21 11/04/22 History tablet Chest Pain omega-3 fatty acids 1,000 mg 1,000 mg PO BID 04/15/22 11/04/22 History capsule acyclovir 400 mg tablet 400 mg PO BID 04/22/22 11/04/22 History docusate sodium 100 mg capsule 100 mg PO BID PRN Constipation 04/22/22 11/04/22 History (Colace) ferrous sulfate 325 mg (65 mg 325 mg PO DAILY 04/22/22 11/04/22 History iron) tablet gabapentin 300 mg capsule 300 mg PO QAM 04/22/22 11/04/22 History mecobalamin (vitamin B12) 1,000 1,000 mcg PO DAILY 04/22/22 11/04/22 History mcg chewable tablet (B12 Active) morphine 15 mg immediate release 15 mg PO Q4H PRN Pain 04/22/22 11/04/22 History tablet losartan 25 mg tablet 12.5 mg PO QAM #15 tabs 05/04/22 11/04/22 Rx acetaminophen 650 mg 1,300 mg PO DIRECTED PRN Pain 11/04/22 11/04/22 History tablet,extended release (Tylenol Arthritis Pain) albuterol sulfate 2.5 mg/3 mL 2.5 mg inhalation DIRECTED PRN 11/04/22 11/04/22 History (0.083 %) solution for nebulization Shortness Of Breath albuterol sulfate 90 mcg/actuation 2 puff inhalation Q6H PRN 11/04/22 11/04/22 History aerosol inhaler COUGH/SHORT OF BREATH/WHEEZING calcium carbonate 600 mg-vitamin 1 tab PO BID 11/04/22 11/04/22 History D3 10 mcg (400 unit) tablet (Calcium 600 + D(3)) digoxin 125 mcg (0.125 mg) tablet 125 mcg PO QAM 11/04/22 11/04/22 History lenalidomide 10 mg capsule 10 mg PO DIRECTED 11/04/22 11/04/22 History (Revlimid) metoprolol succinate 50 mg 50 mg PO BID 11/04/22 11/04/22 History tablet,extended release 24 hr (Toprol XL) potassium chloride 20 mEq 20 meq PO BID 11/04/22 11/04/22 History tablet,extended release(part/cryst) sennosides 8.6 mg tablet (senna) 17.2 mg PO HS PRN Constipation 11/04/22 11/04/22 History torsemide 10 mg tablet 10 mg PO QAM 11/04/22 11/04/22 History Patient History Medical History Atrial fibrillation continue eliquis and high dose metoprolol CAD (coronary artery disease) Hallux rigidus of left foot "S/p multiple surgeries" History of basal cell carcinoma History of melanoma in situ History of pilonidal cyst HLD (hyperlipidemia) Pacemaker Peripheral vascular disease of lower extremity Tachy-noman syndrome Pt admitted for elective ppm due to TBS; underwent procedure without any complications; monitored overnight and discharged home. 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 Beliefs That Will Affect Care: None marital status: Current Living Situation: Spouse current occupational status: retired Feels Safe at Home: Yes Safety Concerns: Feels Safe At This Time Assistive Devices: Cane and Walker Review of Systems Review of Systems: All systems reviewed & are unremarkable except as noted in HPI & below Physical Exam Constitutional: WD/WN, vitals as above Respiratory: normal respiratory effort, lungs clear to auscultation Cardiovascular: Rate/Rhythm: regular rate Gastrointestinal (Abdomen): normal bowel sounds, soft, nontender, no hepatosplenomegaly Skin: no rashes, warm and dry Results & Data ([facility]) Vital Signs (Past 12 Hours) Vital Signs Temp Pulse Pulse Pulse Resp BP BP 11/05/22 08:14 34.7 C L 81 16 94/72 L 11/05/22 07:25 86 11/05/22 05:10 79 11/05/22 04:18 82 98/62 L 11/05/22 02:47 37.1 C 80 18 89/48 L 11/05/22 01:57 78 16 93/53 L 11/04/22 23:15 36.9 C 84 18 84/49 L Pulse Ox O2 Del Method 11/05/22 08:14 96 Room Air 11/05/22 07:25 11/05/22 05:10 11/05/22 04:18 11/05/22 02:47 97 Room Air 11/05/22 01:57 99 Room Air 11/04/22 23:15 100 Room Air Laboratory Results 11/05/22 11/05/22 11/05/22 Range/Units 07:44 06:36 06:36 WBC 2.91 L (4.8-10.8) K/ul RBC 2.90 L (4.63-6.08) M/uL Hgb 9.5 L (14.0-18.0) g/dl Hct 27.4 L (40.1-51.0) % MCV 94.5 (80.0-100.0) fL MCH 32.8 (25.0-34.0) pg MCHC 34.7 (32.0-36.0) g/dL RDW Std Deviation 46.6 H (36.4-46.3) fL RDW Coeff of Collin 14.0 (11.5-14.5) % Plt Count 109 L (130-400) K/uL MPV 10.4 (9.4-12.4) fL Sodium 142 (136-145) mmol/L Potassium 3.4 L (3.5-5.1) mmol/L Chloride 111 H (98-107) mmol/L Carbon Dioxide 26 (21-32) mmol/L Anion Gap 5 (3-11) BUN 11 (6-23) mg/dl Creatinine 0.76 (0.6-1.4) mg/dl Est Cr Clr Drug Dosing 80.0 ml/min Est GFR ( Amer) 102.7 ml/min Est GFR (Non-Af Amer) 88.6 ml/min BUN/Creatinine Ratio 14.5 (10-20) Glucose 77 (70-99(Fasting)) mg/dl POC Glucose 93 (70-99) mg/dl Lactate (0.4-2.0) mmol/L Calcium 7.0 L (8.5-10.1) mg/dl Phosphorus 1.9 L (2.5-4.9) mg/dl Magnesium 1.7 (1.7-2.4) mg/dl Troponin I High Sens (0-20) pg/ml Urine Color Urine Appearance (Clear) Urine pH (4.5-7.5) Ur Specific [place] (1.000-1.030) Urine Protein (Negative) Urine Glucose (UA) (Negative) Urine Ketones (Negative) Urine Blood (Negative) Urine Nitrite (Negative) Urine Bilirubin (Negative) Urine Urobilinogen (Negative) Ur Leukocyte Esterase (Negative) Urine WBC (Auto) (0-5) /hpf Urine RBC (Auto) (0-4) /hpf U Hyaline Cast (Auto) (0-5) /lpf U Epithel Cells (Auto) (0-5) /lpf Urine Bacteria (Auto) (Negative) Stl C. cayetanensis PCR (NotDetected) Stool Rotavirus A PCR (NotDetected) Stl Adenov F 40/41 PCR (NotDetected) Stool Astrovirus (PCR) (NotDetected) Stool Campylobacter PCR (NotDetected) Stl C. diff Tox B Gene (Neg) Stool Cryptosporidium PCR (NotDetected) Stl E.coli Shiga Tox PCR (NotDetected) Stl Enterotoxigenic E PCR (NotDetected) Stool EPEC (PCR) (NotDetected) Stool EAEC (PCR) (NotDetected) Stl E. histolytica PCR (NotDetected) Stool Giardia Lamblia PCR (NotDetected) Stool Salmonella PCR (NotDetected) Stool Sapovirus (PCR) (NotDetected) Stl P. shigelloides PCR (NotDetected) Stl Shigella/EIEC PCR (NotDetected) St Y.enterocolitica PCR (NotDetected) Stool Vibrio (PCR) (NotDetected) Stl Vibrio cholerae PCR (NotDetected) Stl Norovirus GI/GII PCR (NotDetected) 11/04/22 11/04/22 11/04/22 Range/Units 21:16 21:16 21:13 WBC (4.8-10.8) K/ul RBC (4.63-6.08) M/uL Hgb 9.0 L (14.0-18.0) g/dl Hct 25.8 L (40.1-51.0) % MCV (80.0-100.0) fL MCH (25.0-34.0) pg MCHC (32.0-36.0) g/dL RDW Std Deviation (36.4-46.3) fL RDW Coeff of Collin (11.5-14.5) % Plt Count (130-400) K/uL MPV (9.4-12.4) fL Sodium (136-145) mmol/L Potassium (3.5-5.1) mmol/L Chloride (98-107) mmol/L Carbon Dioxide (21-32) mmol/L Anion Gap (3-11) BUN (6-23) mg/dl Creatinine (0.6-1.4) mg/dl Est Cr Clr Drug Dosing ml/min Est GFR ( Amer) ml/min Est GFR (Non-Af Amer) ml/min BUN/Creatinine Ratio (10-20) Glucose (70-99(Fasting)) mg/dl POC Glucose 294 H (70-99) mg/dl Lactate 2.7 H* (0.4-2.0) mmol/L Calcium (8.5-10.1) mg/dl Phosphorus (2.5-4.9) mg/dl Magnesium (1.7-2.4) mg/dl Troponin I High Sens (0-20) pg/ml Urine Color Urine Appearance (Clear) Urine pH (4.5-7.5) Ur Specific [place] (1.000-1.030) Urine Protein (Negative) Urine Glucose (UA) (Negative) Urine Ketones (Negative) Urine Blood (Negative) Urine Nitrite (Negative) Urine Bilirubin (Negative) Urine Urobilinogen (Negative) Ur Leukocyte Esterase (Negative) Urine WBC (Auto) (0-5) /hpf Urine RBC (Auto) (0-4) /hpf U Hyaline Cast (Auto) (0-5) /lpf U Epithel Cells (Auto) (0-5) /lpf Urine Bacteria (Auto) (Negative) Stl C. cayetanensis PCR (NotDetected) Stool Rotavirus A PCR (NotDetected) Stl Adenov F 40/41 PCR (NotDetected) Stool Astrovirus (PCR) (NotDetected) Stool Campylobacter PCR (NotDetected) Stl C. diff Tox B Gene (Neg) Stool Cryptosporidium PCR (NotDetected) Stl E.coli Shiga Tox PCR (NotDetected) Stl Enterotoxigenic E PCR (NotDetected) Stool EPEC (PCR) (NotDetected) Stool EAEC (PCR) (NotDetected) Stl E. histolytica PCR (NotDetected) Stool Giardia Lamblia PCR (NotDetected) Stool Salmonella PCR (NotDetected) Stool Sapovirus (PCR) (NotDetected) Stl P. shigelloides PCR (NotDetected) Stl Shigella/EIEC PCR (NotDetected) St Y.enterocolitica PCR (NotDetected) Stool Vibrio (PCR) (NotDetected) Stl Vibrio cholerae PCR (NotDetected) Stl Norovirus GI/GII PCR (NotDetected) 11/04/22 11/04/22 11/04/22 Range/Units 17:52 16:06 15:22 WBC (4.8-10.8) K/ul RBC (4.63-6.08) M/uL Hgb (14.0-18.0) g/dl Hct (40.1-51.0) % MCV (80.0-100.0) fL MCH (25.0-34.0) pg MCHC (32.0-36.0) g/dL RDW Std Deviation (36.4-46.3) fL RDW Coeff of Collin (11.5-14.5) % Plt Count (130-400) K/uL MPV (9.4-12.4) fL Sodium 136 (136-145) mmol/L Potassium 3.7 (3.5-5.1) mmol/L Chloride 106 (98-107) mmol/L Carbon Dioxide 23 (21-32) mmol/L Anion Gap 7 (3-11) BUN 17 (6-23) mg/dl Creatinine 0.86 (0.6-1.4) mg/dl Est Cr Clr Drug Dosing 70.7 ml/min Est GFR ( Amer) 97.6 ml/min Est GFR (Non-Af Amer) 84.2 ml/min BUN/Creatinine Ratio 19.8 (10-20) Glucose 322 H* (70-99(Fasting)) mg/dl POC Glucose 243 H (70-99) mg/dl Lactate 2.3 H* (0.4-2.0) mmol/L Calcium 7.1 L (8.5-10.1) mg/dl Phosphorus 2.3 L (2.5-4.9) mg/dl Magnesium 1.8 (1.7-2.4) mg/dl Troponin I High Sens (0-20) pg/ml Urine Color Urine Appearance (Clear) Urine pH (4.5-7.5) Ur Specific [place] (1.000-1.030) Urine Protein (Negative) Urine Glucose (UA) (Negative) Urine Ketones (Negative) Urine Blood (Negative) Urine Nitrite (Negative) Urine Bilirubin (Negative) Urine Urobilinogen (Negative) Ur Leukocyte Esterase (Negative) Urine WBC (Auto) (0-5) /hpf Urine RBC (Auto) (0-4) /hpf U Hyaline Cast (Auto) (0-5) /lpf U Epithel Cells (Auto) (0-5) /lpf Urine Bacteria (Auto) (Negative) Stl C. cayetanensis PCR (NotDetected) Stool Rotavirus A PCR (NotDetected) Stl Adenov F 40/ PCR (NotDetected) Stool Astrovirus (PCR) (NotDetected) Stool Campylobacter PCR (NotDetected) Stl C. diff Tox B Gene (Neg) Stool Cryptosporidium PCR (NotDetected) Stl E.coli Shiga Tox PCR (NotDetected) Stl Enterotoxigenic E PCR (NotDetected) Stool EPEC (PCR) (NotDetected) Stool EAEC (PCR) (NotDetected) Stl E. histolytica PCR (NotDetected) Stool Giardia Lamblia PCR (NotDetected) Stool Salmonella PCR (NotDetected) Stool Sapovirus (PCR) (NotDetected) Stl P. shigelloides PCR (NotDetected) Stl Shigella/EIEC PCR (NotDetected) St Y.enterocolitica PCR (NotDetected) Stool Vibrio (PCR) (NotDetected) Stl Vibrio cholerae PCR (NotDetected) Stl Norovirus GI/GII PCR (NotDetected) 11/04/22 11/04/22 11/04/22 Range/Units 15:20 11:40 09:45 WBC (4.8-10.8) K/ul RBC (4.63-6.08) M/uL Hgb (14.0-18.0) g/dl Hct (40.1-51.0) % MCV (80.0-100.0) fL MCH (25.0-34.0) pg MCHC (32.0-36.0) g/dL RDW Std Deviation (36.4-46.3) fL RDW Coeff of Collin (11.5-14.5) % Plt Count (130-400) K/uL MPV (9.4-12.4) fL Sodium (136-145) mmol/L Potassium (3.5-5.1) mmol/L Chloride (98-107) mmol/L Carbon Dioxide (21-32) mmol/L Anion Gap (3-11) BUN (6-23) mg/dl Creatinine (0.6-1.4) mg/dl Est Cr Clr Drug Dosing ml/min Est GFR ( Amer) ml/min Est GFR (Non-Af Amer) ml/min BUN/Creatinine Ratio (10-20) Glucose (70-99(Fasting)) mg/dl POC Glucose 273 H (70-99) mg/dl Lactate (0.4-2.0) mmol/L Calcium (8.5-10.1) mg/dl Phosphorus (2.5-4.9) mg/dl Magnesium (1.7-2.4) mg/dl Troponin I High Sens 191.5 H* D (0-20) pg/ml Urine Color Urine Appearance (Clear) Urine pH (4.5-7.5) Ur Specific [place] (1.000-1.030) Urine Protein (Negative) Urine Glucose (UA) (Negative) Urine Ketones (Negative) Urine Blood (Negative) Urine Nitrite (Negative) Urine Bilirubin (Negative) Urine Urobilinogen (Negative) Ur Leukocyte Esterase (Negative) Urine WBC (Auto) (0-5) /hpf Urine RBC (Auto) (0-4) /hpf U Hyaline Cast (Auto) (0-5) /lpf U Epithel Cells (Auto) (0-5) /lpf Urine Bacteria (Auto) (Negative) Stl C. cayetanensis PCR Not Detected (NotDetected) Stool Rotavirus A PCR Not Detected (NotDetected) Stl Adenov F 40/41 PCR Not Detected (NotDetected) Stool Astrovirus (PCR) Not Detected (NotDetected) Stool Campylobacter PCR Not Detected (NotDetected) Stl C. diff Tox B Gene (Neg) Stool Cryptosporidium PCR Not Detected (NotDetected) Stl E.coli Shiga Tox PCR Not Detected (NotDetected) Stl Enterotoxigenic E PCR Not Detected (NotDetected) Stool EPEC (PCR) Not Detected (NotDetected) Stool EAEC (PCR) Not Detected (NotDetected) Stl E. histolytica PCR Not Detected (NotDetected) Stool Giardia Lamblia PCR Not Detected (NotDetected) Stool Salmonella PCR Not Detected (NotDetected) Stool Sapovirus (PCR) Not Detected (NotDetected) Stl P. shigelloides PCR Not Detected (NotDetected) Stl Shigella/EIEC PCR Not Detected (NotDetected) St Y.enterocolitica PCR Not Detected (NotDetected) Stool Vibrio (PCR) Not Detected (NotDetected) Stl Vibrio cholerae PCR Not Detected (NotDetected) Stl Norovirus GI/GII PCR Not Detected (NotDetected) 11/04/22 11/04/22 11/04/22 Range/Units 09:45 09:12 07:53 WBC (4.8-10.8) K/ul RBC (4.63-6.08) M/uL Hgb (14.0-18.0) g/dl Hct (40.1-51.0) % MCV (80.0-100.0) fL MCH (25.0-34.0) pg MCHC (32.0-36.0) g/dL RDW Std Deviation (36.4-46.3) fL RDW Coeff of Collin (11.5-14.5) % Plt Count (130-400) K/uL MPV (9.4-12.4) fL Sodium (136-145) mmol/L Potassium (3.5-5.1) mmol/L Chloride (98-107) mmol/L Carbon Dioxide (21-32) mmol/L Anion Gap (3-11) BUN (6-23) mg/dl Creatinine (0.6-1.4) mg/dl Est Cr Clr Drug Dosing ml/min Est GFR ( Amer) ml/min Est GFR (Non-Af Amer) ml/min BUN/Creatinine Ratio (10-20) Glucose (70-99(Fasting)) mg/dl POC Glucose (70-99) mg/dl Lactate (0.4-2.0) mmol/L Calcium (8.5-10.1) mg/dl Phosphorus (2.5-4.9) mg/dl Magnesium (1.7-2.4) mg/dl Troponin I High Sens 345.1 H* (0-20) pg/ml Urine Color Yellow Urine Appearance Clear (Clear) Urine pH 5.5 (4.5-7.5) Ur Specific [place] 1.028 (1.000-1.030) Urine Protein Negative (Negative) Urine Glucose (UA) 3+ H (Negative) Urine Ketones Trace H (Negative) Urine Blood Trace H (Negative) Urine Nitrite Negative (Negative) Urine Bilirubin Negative (Negative) Urine Urobilinogen Negative (Negative) Ur Leukocyte Esterase Negative (Negative) Urine WBC (Auto) 1-5 (0-5) /hpf Urine RBC (Auto) 5-10 H (0-4) /hpf U Hyaline Cast (Auto) 1-5 (0-5) /lpf U Epithel Cells (Auto) 0-5 (0-5) /lpf Urine Bacteria (Auto) Negative (Negative) Stl C. cayetanensis PCR (NotDetected) Stool Rotavirus A PCR (NotDetected) Stl Adenov F 40/41 PCR (NotDetected) Stool Astrovirus (PCR) (NotDetected) Stool Campylobacter PCR (NotDetected) Stl C. diff Tox B Gene Negative Cdiff Gene (Neg) Stool Cryptosporidium PCR (NotDetected) Stl E.coli Shiga Tox PCR (NotDetected) Stl Enterotoxigenic E PCR (NotDetected) Stool EPEC (PCR) (NotDetected) Stool EAEC (PCR) (NotDetected) Stl E. histolytica PCR (NotDetected) Stool Giardia Lamblia PCR (NotDetected) Stool Salmonella PCR (NotDetected) Stool Sapovirus (PCR) (NotDetected) Stl P. shigelloides PCR (NotDetected) Stl Shigella/EIEC PCR (NotDetected) St Y.enterocolitica PCR (NotDetected) Stool Vibrio (PCR) (NotDetected) Stl Vibrio cholerae PCR (NotDetected) Stl Norovirus GI/GII PCR (NotDetected)
[2022-11-05] MEDS: GABAPENTIN 300 MG CAP PO SCH (09:37)
[2022-11-05] MEDS: FERROUS SULFATE 325 MG TAB PO SCH (09:37)
[2022-11-05] MEDS: ATORVASTATIN 40 MG TAB PO SCH (09:37)
[2022-11-05] MEDS: INSULIN ASPART PER UNIT SC SCH ×4 (09:42→20:40)
[2022-11-05] MEDS: DIGOXIN 0.125 MG TAB PO SCH (16:51)
[2022-11-05 20:21] LABS: Hematocrit (blood only) 24.5 % (40.1-51.0); Hemoglobin 8.7 g/dl (14.0-18.0)
[2022-11-05] MEDS: MoRPHine SULFATE IR 15 MG TAB (IMMEDIATE RELEASE) PO PRN (20:37)
[2022-11-05] MEDS: LANTUS PER UNIT CHARGE SQ SCH (20:40)
--- NOTE | 2022-11-05 20:56 | Electrocardiogram Report ---
Test Reason : Blood Pressure : / mmHG Vent. Rate : 103 BPM Atrial Rate : 103 BPM P-R Int : 156 ms QRS Dur : 096 ms QT Int : 372 ms P-R-T Axes : 050 076 233 degrees QTc Int : 487 ms Sinus tachycardia with Premature atrial complexes Possible Left atrial enlargement Abnormal ECG When compared with ECG of 01-MAY-2022 18:43, Sinus rhythm has replaced Atrial fibrillation Confirmed by Juan M Akhtar ([id number]) on 11/05/2022 8:56:18 PM Referred By: REFERRED SELF Confirmed By:Juan M Akhtar
--- NOTE | 2022-11-06 08:22 | Hospitalist Progress Note ---
Date of Service November 06, 2022 Assessment & Plan (1) Hypovolemia: Plan: Secondary to diarrhea Colitis on CT Stool PCR negative, c.diff negative FOBT positive Immunocompromised state/ History multiple myeloma ongoing chemotherapy - Dr. Garcia notified by me about pt's hospitalization CT abd. pelvis IMPRESSION: 1. Nonspecific wall thickening in the descending and sigmoid colon represents a nonspecific colitis, infectious/inflammatory or ischemic. 2. Multifocal lytic lesions are again seen compatible with history of multiple myeloma. 3. Emphysema is partially visualized. 4. Additional findings as above. Given + FOBT, held eliquis GI consulted - no plan for colonoscopy at this time H&H stable - resume eliquis Cont. to closely monitor H&H Elevated lactic acid - monitor response to IVF Gentle hydration given cardiomyopathy Troponin elevation secondary to above Troponin trended down No chest pain Monitor on tele Appropriate to hold BP meds for now except for low dose beta-annika chronic systolic heart failure (EF 40 to 45%, TTE 2021), patient on the dry side hx CAD status post CABG/PVD status post surgery SSS status post PPM on Eliquis (now holding eliquis, as above) valvular heart disease (mild MR/TR), pulmonary hypertension DM2 insulin requiring -patient hyperglycemic possibly from recent outpatient hydrocortisone dose from chemotherapy -well-controlled as of outpatient hemoglobin A1c of 6.24 August 2022 - Basal bolus insulin, ISS BG goal 110-140, carb count coverage Chronic anemia, hemoglobin better on admission than baseline secondary to hemoconcentration However pt was on IVF and FOBT found positive Monitor H&H GI consulted past tobacco abuse DVT prophylaxis. Eliquis on hold now- resume DNR Admission and Anticipated Discharge Date Admission Date: November 04, 2022 Subjective Pt seen in follow up of severe diarrhea, hx of MM on chemo (w/ Dr. Garcia), FOBT also positive c. diff and stol PCR negative ? Colitis on CT Currently patient is laying in bed, in no acute distress Reports diarrhea is improving (no BM yet today) Denies fevers chills chest pain shortness of breath Seen by gastroenterology yesterday. Reports able to ambulate to the bathroom, without any dizziness or light headedness. Reports good p.o. fluid intake. PT/OT pending Review of Systems Review of Systems: All systems reviewed & are unremarkable except as noted in Subjective Physical Exam Physical Exam: GENERAL: Comfortable, pleasant, no respiratory distress SKIN: Pallor, warm HEENT: NC/AT. EOMI. NECK : Supple, no tenderness CHEST : CTAB HEART : RRR, no obvious murmurs ABDOMEN: Some distention, minimal hypogastric tenderness, + bowel sounds EXTREMITIES : No LE swelling, moves extremities NEUROLOGIC : awake and alert, answering questions appropriately, no facial asymmetry, moves extremities Results & Data Results & Data ([facility]) Vital Signs (Past 12 Hours) Vital Signs Temp Pulse Pulse Resp BP Pulse Ox O2 Del Method 11/06/22 07:38 36.8 C 83 18 116/53 L 98 Room Air 11/06/22 03:44 36.8 C 75 18 93/55 L 97 Room Air 11/05/22 22:43 37 C 70 20 103/61 98 Room Air 11/05/22 21:59 76 Laboratory Results 11/06/22 11/05/22 11/05/22 Range/Units 07:37 20:16 19:59 Hgb 8.7 L (14.0-18.0) g/dl Hct 24.5 L (40.1-51.0) % POC Glucose 95 243 H (70-99) mg/dl 11/05/22 11/05/22 Range/Units 16:29 11:26 Hgb (14.0-18.0) g/dl Hct (40.1-51.0) % POC Glucose 101 H 294 H (70-99) mg/dl Medications Administered Current Inpatient Medications Acetaminophen (Acetaminophen 325 Mg Tab) 650 mg PO Q4H PRN PRN Reason: Pain or Fever Stop: 12/04/22 04:13 Apixaban (Apixaban 5 Mg Tablet) 5 mg PO BID [facility] Stop: 12/04/22 08:59 Last Admin: 11/04/22 21:08 Dose: 5 mg Atorvastatin Calcium (Atorvastatin 40 Mg Tab) 40 mg PO DAILY [facility] Stop: 12/04/22 08:59 Last Admin: 11/05/22 09:37 Dose: 40 mg Dextrose (Dextrose 50% 50 Ml Syringe) 25 - 50 ml IV UD PRN; Protocol PRN Reason: Hypoglycemia Protocol Stop: 12/04/22 04:13 Digoxin (Digoxin 0.125 Mg Tab) 0.125 mg PO DAILY@1600 [facility] Stop: 12/04/22 15:59 Last Admin: 11/05/22 16:51 Dose: 0.125 mg Ferrous Sulfate (Ferrous Sulfate 325 Mg Tab) 325 mg PO DAILY [facility] Stop: 12/04/22 08:59 Last Admin: 11/05/22 09:37 Dose: 325 mg Gabapentin (Gabapentin 300 Mg Cap) 300 mg PO QAM [facility] Stop: 12/04/22 08:59 Last Admin: 11/05/22 09:37 Dose: 300 mg Glucagon (Glucagon For Inj 1 Mg Vial) 1 mg SQ UD PRN; Protocol PRN Reason: Hypoglycemia Protocol Stop: 12/04/22 04:13 Glucose (Glucose 40% Gel 15 Gm Tube) 15 - 30 gm PO UD PRN; Protocol PRN Reason: Hypoglycemia Protocol Stop: 12/04/22 04:13 Glucose (Glucose 10 Tab/Tube) 4 - 8 tab PO UD PRN; Protocol PRN Reason: Hypoglycemia Treatment Stop: 12/04/22 04:13 Insulin Aspart (Insulin Aspart Per Unit) 0 units SC ACHS [facility] Stop: 12/04/22 04:13 Last Admin: 11/05/22 20:40 Dose: 5 units Insulin Glargine (Lantus Per Unit Charge) 25 units SQ HS [facility] Stop: 12/04/22 20:59 Last Admin: 11/05/22 20:40 Dose: 25 units Metoprolol Succinate (Metoprolol Succ 50mg Ext Rel Tab) 12.5 mg PO BID [facility] Stop: 12/04/22 08:59 Last Admin: 11/05/22 20:38 Dose: 12.5 mg Miscellaneous (Carbohydrates For Hypoglycemia ) 15 - 30 gm PO UD PRN PRN Reason: Hypoglycemia Protocol Stop: 12/04/22 04:13 Morphine Sulfate (Morphine Sulfate Ir 15 Mg Tab (Immediate Release)) 15 mg PO Q4H PRN PRN Reason: Pain Stop: 11/18/22 04:13 Last Admin: 11/05/22 20:37 Dose: 15 mg Nitroglycerin (Nitroglycerin Sl 0.4 Mg/Tab Tab) 0.4 mg SL Q5M PRN PRN Reason: Chest Pain Stop: 12/04/22 04:13
[2022-11-06 08:33] LABS: Hematocrit (blood only) 26.6 % (40.1-51.0); Hemoglobin 9.3 g/dl (14.0-18.0); Mean Corpuscular Hemoglobin 32.9 pg (25.0-34.0); Mean Platelet Volume 9.9 fL (9.4-12.4); Platelet Count 118 K/uL (130-400); RDW Standard Deviation 47.5 fL (36.4-46.3); Red Blood Count 2.83 M/uL (4.63-6.08)
[2022-11-06 09:06] LABS: BUN Creatinine Ratio 12.9 (10-20); Calcium 7.2 mg/dl (8.5-10.1); Creatinine Clr Calc Pharmacy 71.5 ml/min; Est GFR (African American) 98.1 ml/min; Est GFR (Non-African American) 84.6 ml/min; Magnesium 1.8 mg/dl (1.7-2.4); Potassium 3.5 mmol/L (3.5-5.1)
[2022-11-06] MEDS: INSULIN ASPART PER UNIT SC SCH ×4 (09:10→21:16)
[2022-11-06] MEDS: FERROUS SULFATE 325 MG TAB PO SCH (09:13)
[2022-11-06] MEDS: GABAPENTIN 300 MG CAP PO SCH (09:13)
[2022-11-06] MEDS: METOPROLOL SUCC 50MG EXT REL TAB PO SCH ×2 (09:13→21:13)
[2022-11-06] MEDS: ATORVASTATIN 40 MG TAB PO SCH (09:14)
[2022-11-06] MEDS ORDERED: POTASSIUM CHLORIDE CRTAB 20 MEQ TABCR PO STA (12:24)
[2022-11-06] MEDS: DIGOXIN 0.125 MG TAB PO SCH (17:06)
[2022-11-06] MEDS ORDERED: CALCIUM CARBONATE 500 MG CHEWABLE TAB PO PRN (19:14)
[2022-11-06] MEDS: LANTUS PER UNIT CHARGE SQ SCH (21:16)
[2022-11-06] MEDS: MoRPHine SULFATE IR 15 MG TAB (IMMEDIATE RELEASE) PO PRN (22:53)
--- NOTE | 2022-11-07 08:06 | Hospitalist Progress Note ---
Date of Service November 07, 2022 Assessment & Plan (1) Hypovolemia: Plan: Secondary to diarrhea Colitis on CT Stool PCR negative, c.diff negative FOBT positive Immunocompromised state/ History multiple myeloma ongoing chemotherapy - Dr. Garcia notified by me about pt's hospitalization CT abd. pelvis IMPRESSION: 1. Nonspecific wall thickening in the descending and sigmoid colon represents a nonspecific colitis, infectious/inflammatory or ischemic. 2. Multifocal lytic lesions are again seen compatible with history of multiple myeloma. 3. Emphysema is partially visualized. 4. Additional findings as above. Given + FOBT, held eliquis GI consulted - no plan for colonoscopy at this time H&H stable - resumed eliquis Cont. 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/TR), pulmonary hypertension DM2 insulin requiring -patient hyperglycemic possibly from recent outpatient hydrocortisone dose from chemotherapy -well-controlled as of outpatient hemoglobin A1c of 6.24 August 2022 - Basal bolus insulin, ISS BG goal 110-140, carb count coverage Chronic anemia, hemoglobin better on admission than baseline secondary to hemoconcentration However pt was on IVF and FOBT found positive Monitor H&H GI consulted past tobacco abuse DVT prophylaxis. Eliquis resumed DNR Admission and Anticipated Discharge Date Admission Date: November 04, 2022 Subjective Pt seen in follow up of severe diarrhea, hx of MM on chemo (w/ Dr. Garcia), FOBT also positive c. diff and stol PCR negative ? Colitis on CT Currently patient is laying in bed, in no acute distress Reports diarrhea is much improved (had 1 BM yesterday) Denies fevers chills chest pain shortness of breath Seen by gastroenterology - no plan for colonoscopy at this time. Reports able to ambulate to the bathroom, without any dizziness or lightheadedness. Reports good p.o. fluid intake. Pt feels well and would like to go home today. Review of Systems Review of Systems: All systems reviewed & are unremarkable except as noted in Subjective Physical Exam Physical Exam: GENERAL: Comfortable, pleasant, no respiratory distress SKIN: Pallor, warm HEENT: NC/AT. EOMI. NECK : Supple, no tenderness CHEST : CTAB HEART : RRR, no obvious murmurs ABDOMEN: Some distention, minimal hypogastric tenderness, + bowel sounds EXTREMITIES : No LE swelling, moves extremities NEUROLOGIC : awake and alert, answering questions appropriately, no facial asymmetry, moves extremities Results & Data Results & Data ([facility]) Vital Signs (Past 12 Hours) Vital Signs Temp Pulse Resp BP Pulse Ox O2 Del Method 11/07/22 08:01 36.8 C 71 20 108/62 99 Room Air 11/07/22 04:00 36.6 C 71 18 131/68 98 Room Air 11/06/22 23:00 36.8 C 71 18 131/68 98 Room Air Laboratory Results 11/07/22 11/07/22 11/07/22 Range/Units 08:19 08:19 07:51 WBC 2.99 L (4.8-10.8) K/ul RBC 2.85 L (4.63-6.08) M/uL Hgb 9.5 L (14.0-18.0) g/dl Hct 27.3 L (40.1-51.0) % MCV 95.8 (80.0-100.0) fL MCH 33.3 (25.0-34.0) pg MCHC 34.8 (32.0-36.0) g/dL RDW Std Deviation 48.1 H (36.4-46.3) fL RDW Coeff of Collin 13.9 (11.5-14.5) % Plt Count 142 (130-400) K/uL MPV 10.2 (9.4-12.4) fL Sodium 142 (136-145) mmol/L Potassium 3.5 (3.5-5.1) mmol/L Chloride 113 H (98-107) mmol/L Carbon Dioxide 22 (21-32) mmol/L Anion Gap 7 (3-11) BUN 11 (6-23) mg/dl Creatinine 0.72 (0.6-1.4) mg/dl Est Cr Clr Drug Dosing 81.1 ml/min Est GFR ( Amer) 105.0 ml/min Est GFR (Non-Af Amer) 90.6 ml/min BUN/Creatinine Ratio 15.3 (10-20) Glucose 126 H (70-99(Fasting)) mg/dl POC Glucose 134 H (70-99) mg/dl Calcium 7.6 L (8.5-10.1) mg/dl 11/06/22 11/06/22 11/06/22 Range/Units 20:25 17:00 16:58 WBC (4.8-10.8) K/ul RBC (4.63-6.08) M/uL Hgb (14.0-18.0) g/dl Hct (40.1-51.0) % MCV (80.0-100.0) fL MCH (25.0-34.0) pg MCHC (32.0-36.0) g/dL RDW Std Deviation (36.4-46.3) fL RDW Coeff of Collin (11.5-14.5) % Plt Count (130-400) K/uL MPV (9.4-12.4) fL Sodium (136-145) mmol/L Potassium (3.5-5.1) mmol/L Chloride (98-107) mmol/L Carbon Dioxide (21-32) mmol/L Anion Gap (3-11) BUN (6-23) mg/dl Creatinine (0.6-1.4) mg/dl Est Cr Clr Drug Dosing ml/min Est GFR ( Amer) ml/min Est GFR (Non-Af Amer) ml/min BUN/Creatinine Ratio (10-20) Glucose (70-99(Fasting)) mg/dl POC Glucose 229 H 238 H 235 H (70-99) mg/dl Calcium (8.5-10.1) mg/dl 11/06/22 Range/Units 11:44 WBC (4.8-10.8) K/ul RBC (4.63-6.08) M/uL Hgb (14.0-18.0) g/dl Hct (40.1-51.0) % MCV (80.0-100.0) fL MCH (25.0-34.0) pg MCHC (32.0-36.0) g/dL RDW Std Deviation (36.4-46.3) fL RDW Coeff of Collin (11.5-14.5) % Plt Count (130-400) K/uL MPV (9.4-12.4) fL Sodium (136-145) mmol/L Potassium (3.5-5.1) mmol/L Chloride (98-107) mmol/L Carbon Dioxide (21-32) mmol/L Anion Gap (3-11) BUN (6-23) mg/dl Creatinine (0.6-1.4) mg/dl Est Cr Clr Drug Dosing ml/min Est GFR ( Amer) ml/min Est GFR (Non-Af Amer) ml/min BUN/Creatinine Ratio (10-20) Glucose (70-99(Fasting)) mg/dl POC Glucose 200 H (70-99) mg/dl Calcium (8.5-10.1) mg/dl Medications Administered Current Inpatient Medications Acetaminophen (Acetaminophen 325 Mg Tab) 650 mg PO Q4H PRN PRN Reason: Pain or Fever Stop: 12/04/22 04:13 Apixaban (Apixaban 5 Mg Tablet) 5 mg PO BID [facility] Stop: 12/04/22 08:59 Last Admin: 11/04/22 21:08 Dose: 5 mg Atorvastatin Calcium (Atorvastatin 40 Mg Tab) 40 mg PO DAILY [facility] Stop: 12/04/22 08:59 Last Admin: 11/06/22 09:14 Dose: 40 mg Calcium Carbonate (Calcium Carbonate 500 Mg Chewable Tab) 500 mg PO BID PRN PRN Reason: Heartburn Stop: 12/06/22 19:13 Last Admin: 11/06/22 21:17 Dose: 500 mg Dextrose (Dextrose 50% 50 Ml Syringe) 25 - 50 ml IV UD PRN; Protocol PRN Reason: Hypoglycemia Protocol Stop: 12/04/22 04:13 Digoxin (Digoxin 0.125 Mg Tab) 0.125 mg PO DAILY@1600 [facility] Stop: 12/04/22 15:59 Last Admin: 11/06/22 17:06 Dose: 0.125 mg Ferrous Sulfate (Ferrous Sulfate 325 Mg Tab) 325 mg PO DAILY [facility] Stop: 12/04/22 08:59 Last Admin: 11/06/22 09:13 Dose: 325 mg Gabapentin (Gabapentin 300 Mg Cap) 300 mg PO QAM [facility] Stop: 12/04/22 08:59 Last Admin: 11/06/22 09:13 Dose: 300 mg Glucagon (Glucagon For Inj 1 Mg Vial) 1 mg SQ UD PRN; Protocol PRN Reason: Hypoglycemia Protocol Stop: 12/04/22 04:13 Glucose (Glucose 40% Gel 15 Gm Tube) 15 - 30 gm PO UD PRN; Protocol PRN Reason: Hypoglycemia Protocol Stop: 12/04/22 04:13 Glucose (Glucose 10 Tab/Tube) 4 - 8 tab PO UD PRN; Protocol PRN Reason: Hypoglycemia Treatment Stop: 12/04/22 04:13 Insulin Aspart (Insulin Aspart Per Unit) 0 units SC ACHS [facility] Stop: 12/04/22 04:13 Last Admin: 11/06/22 21:16 Dose: 4 units Insulin Glargine (Lantus Per Unit Charge) 25 units SQ HS [facility] Stop: 12/04/22 20:59 Last Admin: 11/06/22 21:16 Dose: 25 units Metoprolol Succinate (Metoprolol Succ 25mg Ext Rel Tab) 12.5 mg PO BID [facility] Stop: 12/07/22 08:59 Miscellaneous (Carbohydrates For Hypoglycemia ) 15 - 30 gm PO UD PRN PRN Reason: Hypoglycemia Protocol Stop: 12/04/22 04:13 Morphine Sulfate (Morphine Sulfate Ir 15 Mg Tab (Immediate Release)) 15 mg PO Q4H PRN PRN Reason: Pain Stop: 11/18/22 04:13 Last Admin: 11/06/22 22:53 Dose: 15 mg Nitroglycerin (Nitroglycerin Sl 0.4 Mg/Tab Tab) 0.4 mg SL Q5M PRN PRN Reason: Chest Pain Stop: 12/04/22 04:13
[2022-11-07 08:40] LABS: Hematocrit (blood only) 27.3 % (40.1-51.0); Hemoglobin 9.5 g/dl (14.0-18.0); Mean Corpuscular Hemoglobin 33.3 pg (25.0-34.0); Mean Corpuscular Hgb Conc 34.8 g/dL (32.0-36.0); Mean Corpuscular Volume 95.8 fL (80.0-100.0); Mean Platelet Volume 10.2 fL (9.4-12.4); Platelet Count 142 K/uL (130-400); RDW Coefficient of Variation 13.9 % (11.5-14.5); RDW Standard Deviation 48.1 fL (36.4-46.3); Red Blood Count 2.85 M/uL (4.63-6.08); White Blood Count 2.99 K/ul (4.8-10.8)
[2022-11-07] MEDS ORDERED: METOPROLOL SUCC 25MG EXT REL TAB PO SCH (09:00)
[2022-11-07 09:14] LABS: Calcium 7.6 mg/dl (8.5-10.1); Potassium 3.5 mmol/L (3.5-5.1)
[2022-11-07] MEDS: INSULIN ASPART PER UNIT SC SCH ×2 (09:16→12:29)
[2022-11-07] MEDS: GABAPENTIN 300 MG CAP PO SCH (09:16)
[2022-11-07] MEDS: ATORVASTATIN 40 MG TAB PO SCH (09:17)
[2022-11-07] MEDS: FERROUS SULFATE 325 MG TAB PO SCH (09:17)
[2022-11-07 09:20] LABS: BUN Creatinine Ratio 15.3 (10-20); Creatinine Clr Calc Pharmacy 81.1 ml/min; Est GFR (Non-African American) 90.6 ml/min
[2022-11-07] MEDS: APIXABAN 5 MG TABLET PO SCH (10:21)
[2022-11-07] MEDS ORDERED: POTASSIUM CHLORIDE CRTAB 20 MEQ TABCR PO STA (11:08)
--- NOTE | 2022-11-07 11:28 | Discharge Summary ---
Date of Service November 07, 2022 Admission HPI Per Admitting Provider History obtained from patient and records. Medical history significant for chronic systolic heart failure (EF 40 to 45%, TTE 2021), CAD status post CABG, PVD status post surgery, SSS status post PPM on Eliquis, valvular heart disease (mild MR/TR), pulmonary hypertension, DM2 insulin requiring, multiple myeloma ongoing chemotherapy, chronic anemia (baseline hemoglobin 12), past tobacco abuse. Last confinement April 2022 for sepsis secondary to atypical pneumonia. 1 day history of sudden onset watery diarrhea with achy generalized abdominal pain. Some nausea. Patient with dizziness symptoms described as lightheadedness. No chest pain, no SOB. No vomiting symptoms. No Fever, no chills. No recent antibiotic Rx or out-of-town travel. Outpatient chemotherapy last week. 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 Admission Exam Per Admitting Provider GENERAL: Comfortable, pleasant, no respiratory distress SKIN: Pallor, warm HEENT: Partial alopecia, pale palpebral conjunctivae, no ptosis, dry buccal mucosa NECK : Supple, no tenderness CHEST : Decreased breath sounds, no tenderness HEART : RRR, no obvious murmurs ABDOMEN: Some distention, hypogastric tenderness EXTREMITIES : No LE swelling/tenderness, no other conspicuous deformities noted NEUROLOGIC : Coherent, no facial asymmetry, no other gross focality Principal Diagnosis Severe diarrhea Hypovolemia Hypotension due to above FOBT positive Immunocompromised state Discharge Exam GENERAL: Comfortable, pleasant, no respiratory distress SKIN: Pallor, warm HEENT: NC/AT. EOMI. NECK : Supple, no tenderness CHEST : CTAB HEART : RRR, no obvious murmurs ABDOMEN: Some distention, minimal hypogastric tenderness, + bowel sounds EXTREMITIES : No LE swelling, moves extremities NEUROLOGIC : awake and alert, answering questions appropriately, no facial asymmetry, moves extremities Discharge Data Allergies Allergy/AdvReac Type Severity Reaction Status Date / Time tizanidine Allergy Unknown UNKNOWN--ON Verified 11/04/22 01:49 [facility] MED LIST Consultations 11/04/22 01:59 ED Decision to Admit Stat 11/04/22 17:16 Consult Gastroenterology Routine Ordered Studies 11/04/22 03:32 CT Abd and Pelvis [CT abd pelvis IV con only] Urgent FINDINGS: Lower chest: Interstitial thickening is seen. Liver: Unremarkable. No focal lesions are seen. Gallbladder and biliary tree: No calcified gallstones. Normal caliber wall. No intra- or extrahepatic biliary ductal dilation. Pancreas: Unremarkable, a few cystic lesions are seen which may represent IPMNs. Spleen: Unremarkable. Adrenals: Unremarkable. Kidneys and ureters: Numerous renal cysts are seen bilaterally. Bladder: Unremarkable. Reproductive organs: Unremarkable. Bowel: A rectal tube is seen. There is nonspecific wall thickening in the descending and sigmoid colon. No diverticular disease is seen. Lymph nodes Retroperitoneal: Unremarkable. Pelvic: Unremarkable. Mesenteric: Unremarkable. Peritoneum: Normal. Vessels: Atherosclerotic calcifications are seen. Abdominal wall: Unremarkable. Bones: Degenerative changes in the visualized spine. Left hip arthroplasty is seen. Numerous lytic appearing foci in a few sclerotic foci are seen in the spine, similar to prior exam. Old healed rib fractures are seen. IMPRESSION: 1. Nonspecific wall thickening in the descending and sigmoid colon represents a nonspecific colitis, infectious/inflammatory or ischemic. 2. Multifocal lytic lesions are again seen compatible with history of multiple myeloma. 3. Emphysema is partially visualized. 4. Additional findings as above. Hospital Course (1) Hypovolemia: Secondary to diarrhea Colitis on CT Stool PCR negative, c.diff negative FOBT positive Immunocompromised state/ History multiple myeloma ongoing chemotherapy - Dr. Garcia notified by me about pt's hospitalization CT abd. pelvis IMPRESSION: 1. Nonspecific wall thickening in the descending and sigmoid colon represents a nonspecific colitis, infectious/inflammatory or ischemic. 2. Multifocal lytic lesions are again seen compatible with history of multiple myeloma. 3. Emphysema is partially visualized. 4. Additional findings as above. Given + FOBT, held eliquis GI consulted - no plan for colonoscopy at this time H&H stable - resumed eliquis Cont. 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/TR), pulmonary hypertension DM2 insulin requiring -patient hyperglycemic possibly from recent outpatient hydrocortisone dose from chemotherapy -well-controlled as of outpatient hemoglobin A1c of 6.24 August 2022 - Basal bolus insulin, ISS BG goal 110-140, carb count coverage Chronic anemia, hemoglobin better on admission than baseline secondary to hemoconcentration However pt was on IVF and FOBT found positive Monitor H&H GI consulted Total Time Total Time Spent Total Time Spent (In Minutes): 40 Discharge Plan Discharge Items Patient Disposition: Home - Self-Care Reason For Visit: TRANSIENT HYPOTENSION Discharge Diagnosis: Severe diarrhea Hypovolemia Hypotension due to above FOBT positive Immunocompromised state Activity: Per Instructions section Non-emergency contact: Primary Care Provider and Oncologist Call non-emergency contact if: you have any medication questions and your symptoms worsen Follow-up/Referrals: Landen Macario DO [Primary Care Provider] - (Date & Time 11/13/2022 4:00 PM Provider Janet Gomez PA-C Department Family Practice [facility] ) Nan Campos MD [Outside Practitioners] - (Date & Time 11/09/2022 2:30 PM Provider Nan Campos MD Department Palliative Medicine [facility] ) Diet: Regular Addtl Attending Provider Instructions: Follow-up with your primary care doctor, and oncologist. You should follow-up with your primary care doctor within 1 week. For now, do not take losartan, torsemide, isosorbide mononitrate. Monitor your blood pressure at home, and discuss with your primary care provider if/when you should restart your medications. Make sure to stay well-hydrated. Recommend drinking Gatorade and/or Pedialyte in addition to water. Pending Studies at Discharge: No Stand-Alone Forms: My Bliips, Smoking Cessation Medications and DC Order Prescriptions: Continued atorvastatin 40 mg tablet 40 mg PO DAILY insulin glargine [Basaglar KwikPen U-100 Insulin] 100 unit/mL (3 mL) insulin pen 40 unit SUBCUT QPM Eliquis 5 mg tablet 5 mg PO BID omega-3 fatty acids 1,000 mg Capsule 1,000 mg PO BID sennosides [senna] 8.6 mg Tablet 17.2 mg PO HS PRN (Reason: Constipation) albuterol sulfate 2.5 mg /3 mL (0.083 %) Solution For Nebulization 2.5 mg INHALATION DIRECTED PRN (Reason: Shortness Of Breath) acetaminophen [Tylenol Arthritis Pain] 650 mg Tablet Extended Release 1,300 mg PO DIRECTED PRN (Reason: Pain) digoxin 125 mcg (0.125 mg) tablet 125 mcg PO QAM Rx Instructions: PER EXT MED HX 08/15/22---125 MCG DAILY. albuterol sulfate 90 mcg/actuation Hfa Aerosol Inhaler 2 puff INHALATION Q6H PRN (Reason: COUGH/SHORT OF BREATH/WHEEZING) lenalidomide [Revlimid] 10 mg capsule 10 mg PO DIRECTED Rx Instructions: TAKES FOR 21 DAYS THEN OFF FOR 7 DAYS. calcium carbonate-vitamin D3 [Calcium 600 + D(3)] 600 mg-10 mcg (400 unit) Tablet 1 tab PO BID metoprolol succinate [Toprol XL] 50 mg tablet extended release 24 hr 50 mg PO BID Rx Instructions: PER EXT MED HX 10/06/22---50 MG BID potassium chloride 20 mEq tablet,ER particles/crystals 20 meq PO BID prochlorperazine maleate 10 mg Tablet 10 mg PO Q6H PRN (Reason: nausea) ondansetron 8 mg Tablet,Disintegrating 8 mg PO Q8H PRN (Reason: Nausea) Victoza 2-Jed 0.6 mg/0.1 mL (18 mg/3 mL) Pen Injector 1.2 mg SUBCUT DAILY polyethylene glycol 3350 [Miralax] 17 gram Powder In Packet 17 g PO DAILY PRN (Reason: constipation) Qty: 15 0RF nitroglycerin 0.4 mg tablet, sublingual 0.4 mg sublingual .Q 5 MIN MDD 3 doses in 15 min PRN (Reason: Chest Pain) insulin aspart U-100 [Novolog FlexPen U-100 Insulin] 100 unit/mL (3 mL) insulin pen 10 unit SUBCUT TIDM MDD 60 UNITS Rx Instructions: PLUS CORRECTION OF 1:25 OVER 150. acyclovir 400 mg tablet 400 mg PO BID gabapentin 300 mg capsule 300 mg PO QAM docusate sodium [Colace] 100 mg capsule 100 mg PO BID PRN (Reason: Constipation) morphine 15 mg tablet 15 mg PO Q4H PRN (Reason: Pain) ferrous sulfate 325 mg (65 mg iron) Tablet 325 mg PO DAILY mecobalamin (vitamin B12) [B12 Active] 1,000 mcg Tablet,Chewable 1,000 mcg PO DAILY Discontinued isosorbide mononitrate 30 mg tablet extended release 24 hr 30 mg PO DAILY torsemide 10 mg tablet 10 mg PO QAM losartan 25 mg Tablet 12.5 mg PO QAM Qty: 15 0RF Discharge Orders: Discharge Order (Routine); Ordered 11/07/22 Ordered By: Fracisco Hwang Admission Data Admit Date/Time: 11/04/22 17:46 Attending Provider: Fracisco Hwang Admit Provider: Randolph Leach Primary Care Provider: Landen Macario Other Providers: Randolph Leach ; Georgette Macias
== END 2022-11-07 14:13 | disposition home or self-care (01) ==
LOC: ED 00:01 → EDINP 03:38 → INTOOBSV 03:38 → SUATTDRO 03:38 → 2N 04:14

== ENCOUNTER 2023-06-25 11:25 | Inpatient (IN) ==
--- NOTE | 2023-06-25 12:00 | Emergency Department Note ---
History of Present Illness General Chief complaint: Respiratory Problems Stated complaint: HARD TIME BREATHING Time Seen by Provider: 06/25/23 11:42 Home Medications Medication Instructions Recorded Confirmed Type apixaban 5 mg tablet (Eliquis) 5 mg PO BID 06/25/20 06/25/23 History atorvastatin 40 mg tablet 40 mg PO DAILY 06/25/20 06/25/23 History liraglutide 0.6 mg/0.1 mL (18 mg/3 1.2 mg subcut DAILY 09/30/21 06/25/23 History mL) subcutaneous pen injector (Victoza 2-Jed) ondansetron 8 mg disintegrating 8 mg PO Q8H PRN Nausea 09/30/21 06/25/23 History tablet prochlorperazine maleate 10 mg 10 mg PO Q6H PRN nausea 09/30/21 06/25/23 History tablet polyethylene glycol 3350 17 gram 17 g PO DAILY PRN constipation #15 10/05/21 06/25/23 Rx oral powder packet (Miralax) ea nitroglycerin 0.4 mg sublingual 0.4 mg sublingual .Q 5 MIN PRN 11/01/21 06/25/23 History tablet Chest Pain omega-3 fatty acids 1,000 mg 1,000 mg PO BID 04/15/22 06/25/23 History capsule docusate sodium 100 mg capsule 100 mg PO BID PRN Constipation 04/22/22 06/25/23 History (Colace) gabapentin 300 mg capsule 300 mg PO AMHS 04/22/22 06/25/23 History mecobalamin (vitamin B12) 1,000 1,000 mcg PO DAILY 04/22/22 06/25/23 History mcg chewable tablet (B12 Active) morphine 15 mg immediate release 15 mg PO Q4H PRN Pain 04/22/22 06/25/23 History tablet albuterol sulfate 90 mcg/actuation 2 puff inhalation Q6H PRN 11/04/22 06/25/23 History aerosol inhaler COUGH/SHORT OF BREATH/WHEEZING calcium carbonate 600 mg-vitamin 1 tab PO BID 11/04/22 06/25/23 History D3 10 mcg (400 unit) tablet (Calcium 600 + D(3)) digoxin 125 mcg (0.125 mg) tablet 125 mcg PO Q OTHER DAY 11/04/22 06/25/23 History lenalidomide 10 mg capsule 10 mg PO DIRECTED 11/04/22 06/25/23 History (Revlimid) metoprolol succinate 50 mg 50 mg PO BID 11/04/22 06/25/23 History tablet,extended release 24 hr (Toprol XL) potassium chloride 20 mEq 20 meq PO BID 11/04/22 06/25/23 History tablet,extended release(part/cryst) sennosides 8.6 mg tablet (senna) 17.2 mg PO HS PRN Constipation 11/04/22 06/25/23 History insulin aspart U-100 100 unit/mL 15 unit subcut TIDM 12/31/22 06/25/23 History (3 mL) subcutaneous pen (Novolog FlexPen U-100 Insulin aspart) insulin glargine 100 unit/mL (3 45 unit subcut QPM 12/31/22 06/25/23 History mL) subcutaneous pen (Basaglar KwikPen U-100 Insulin) dexamethasone 4 mg tablet 4 mg PO DIRECTED 06/25/23 06/25/23 History mirtazapine 30 mg tablet 30 mg PO HS 06/25/23 06/25/23 History omeprazole 20 mg capsule,delayed 20 mg PO QAM 06/25/23 06/25/23 History release Allergies Allergy/AdvReac Type Severity Reaction Status Date / Time tizanidine Allergy Unknown UNKNOWN--ON Verified 06/25/23 13:38 [facility] [place] MED LIST Past Med/Surg History Medical History ABDI (acute kidney injury) CAD (coronary artery disease) CHI (closed head injury) Chronic deep vein thrombosis (DVT) Diabetic ulcer of left foot Diarrhea Hallux rigidus of left foot "S/p multiple surgeries" History of basal cell carcinoma History of melanoma in situ History of pilonidal cyst HLD (hyperlipidemia) NSTEMI (non-ST elevated myocardial infarction) Pacemaker Pneumonia Type 2 diabetes mellitus Surgical History History of bone marrow biopsy History of cataract surgery History of foot surgery S/P CABG x 4 S/P Mohs surgery for basal cell carcinoma Status post total hip replacement, left Family History Mother Lymphoma Social History Smoking Status: Former smoker Tobacco Type: Cigarettes Cigarettes Per Day: 1-2 times a month; Second Hand Exposure: No; Do You Dip or Chew Tobacco: No; Hx Alcohol Use: No Hx Substance Use: No Preferred Language: Mongolian Communication Ability: Effective Visual Impairment: No Limitations Hearing Ability: Normal Ship Pilot Required: No Beliefs That Will Affect Care: None marital status: Current Living Situation: Spouse current occupational status: retired How many Children do You have: 1 How many Children do You have Comment: Magi lives in [facility]. able to assist with care as needed. Feels Safe at Home: Yes Diet: regular Diet Comment: Trying to gain weight caffeine: No during the past year weight has: decreased > 10 lbs Assistive Devices: Cane and Walker Review of Systems A total of 10 systems reviewed and were otherwise negative Cardiovascular: + dyspnea, + dyspnea on exertion and + orthopnea; no chest pain Physical Exam Vital Signs Vital Signs - 24 hr 06/25/23 11:28 06/25/23 11:55 06/25/23 11:56 Temperature 36.3 C L Temperature Source Temporal Artery Scan Pulse Rate 100 H 95 H Pulse Rate from SpO2 Sensor 96 H Respiratory Rate 20 17 Blood Pressure 128/78 Blood Pressure Mean 94 Pulse Oximetry 97 98 98 Oxygen Delivery Method Room Air Room Air Oxygen Flow Rate 0 Sepsis Recent Fever Within 48 Hours No Sepsis New/Unexplained Change in Mental Status N/A Sepsis Action Taken by Nursing No Action Required 06/25/23 12:00 06/25/23 12:23 Temperature Temperature Source Pulse Rate 93 H 78 Pulse Rate from SpO2 Sensor 93 H Respiratory Rate 20 Blood Pressure Blood Pressure Mean Pulse Oximetry 94 Oxygen Delivery Method Room Air Oxygen Flow Rate Sepsis Recent Fever Within 48 Hours Sepsis New/Unexplained Change in Mental Status Sepsis Action Taken by Nursing GENERAL: Patient is awake alert in no acute distress patient is resting comfortably and showing no signs of anxiety EYES: The conjunctivae are clear. The pupils are round and reactive. EARS, NOSE, MOUTH AND THROAT: The nose is without any evidence of any deformity. Mucous membranes are moist. Tongue is midline. NECK: The neck is nontender and supple. RESPIRATORY: Normal respiratory effort is noted there is no evidence of wheezing rhonchi or rales CARDIOVASCULAR: Irregularly irregular noted there no murmurs rubs or gallops normal S1 normal S2. GASTROINTESTINAL: The abdomen is soft. Abdomen is nontender. BACK: No midline tenderness or or step-off noted range of motion in flexion extension as well as rotation no signs of muscle spasm noted MUSCULOSKELETAL/EXTREMITIES: There is no evidence of gross deformity full range of motion is noted in the hips and shoulders. Left lower extremity with a walking boot present SKIN: There is no obvious evidence of any rash. There are no petechiae, pallor or cyanosis noted. NEUROLOGIC: Patient is awake alert and oriented x3 Course Reevaluation(s) Reevaluation #1: Patient is resting in no distress no current chest pain. Time: 13:00 Consultations Consultation #1: Case was discussed with the [facility] hospitalist for admission Time: 13:00 Consultation #2: Case was discussed with Dr. Mejia from [facility] director automotive for a consult Time: 13:05 Critical Care Time Critical Care Time: Yes Total Critical Care Time: 35 I have personally spent greater than 35 minutes of critical care time in the direct management of this patient. This includes bedside care, interpretation of diagnostic studies, and testing, discussion with consultants, patient, and family members, and other required patient management activities. These minutes are in excess of all separately billable procedures. Medical Decision Making Medical Records Attestation: I reviewed the patient's medical records. Reviewed the outpatient labs and H&P that were sent to us via fax by [facility] Medications Current Medication List: was personally reviewed by me Laboratory Data Attestation: I reviewed the patient's lab results. Labs interpreted by me patient is leukopenic, anemic, has a ABDI, hyperglycemic and an elevated troponin 06/25/23 11:49 06/25/23 11:49 Lab Results 06/25/23 06/25/23 06/25/23 Range/Units 11:49 11:49 11:49 WBC 3.08 L (4.8-10.8) K/ul RBC 2.90 L (4.70-6.10) M/uL Hgb 9.6 L (14.0-18.0) g/dl POC Hgb (14.0-18.0) g/dl Hct 29.5 L (42.0-52.0) % POC Hct (42-52) % MCV 101.7 H (80.0-100.0) fL MCH 33.1 (25.0-34.0) pg MCHC 32.5 (32.0-36.0) g/dL RDW Std Deviation 59.8 H (36.4-46.3) fL RDW Coeff of Collin 16.3 H (11.5-14.5) % Plt Count 157 (130-400) K/uL MPV 11.4 (9.4-12.4) fL Immature Gran % (Auto) 8.8 % Neut % (Auto) 65.3 % Lymph % (Auto) 15.6 % [place] % (Auto) 8.1 % Eos % (Auto) 1.9 % Baso % (Auto) 0.3 % Neut # (Auto) 2.01 (1.40-6.50) K/uL Lymph # (Auto) 0.48 L (1.20-3.40) K/uL [place] # (Auto) 0.25 (0.11-0.59) K/uL Eos # (Auto) 0.06 (0.00-0.50) K/uL Baso # (Auto) 0.01 (0.00-0.20) K/uL Immature Gran # (Auto) 0.27 H (0.01-0.20) K/uL Absolute Nucleated RBC 0.07 (0.00-0.12) K/uL Nucleated RBC % (auto) 2.3 % Polychromasia 1+ Tear Drop Cells 1+ PT 11.6 (9.0-12.0) Seconds INR 1.1 (0.9-1.1) APTT 25.8 (21.0-31.0) Seconds PTT Ratio 0.9 POC Sodium (135-144) mmol/L Sodium 139 (136-145) mmol/L POC Potassium (3.3-5.0) mmol/L Potassium 4.1 (3.5-5.1) mmol/L POC Chloride (101-112) mmol/L Chloride 108 H (98-107) mmol/L Carbon Dioxide 20 L (21-32) mmol/L POC Total CO2 (24-31) mmol/L Anion Gap 11 (3-11) POC Anion Gap (16-25) mmol/L POC BUN (7-18) mg/dl BUN 24 H (6-23) mg/dl Creatinine 1.46 H (0.6-1.4) mg/dl POC Creatinine (0.6-1.3) mg/dl Est Cr Clr Drug Dosing 45.1 ml/min Est GFR ( Amer) 53.0 ml/min Est GFR (Non-Af Amer) 45.7 ml/min BUN/Creatinine Ratio 16.4 (10-20) Glucose 227 H (70-99(Fasting)) mg/dl POC Glucose (other) (70-99) mg/dl Calcium 8.2 L (8.6-10.3) mg/dl POC Ioniz Calcium Thania (1.12-1.32) mmol/l Total Bilirubin 0.8 (0.2-1.0) mg/dl AST 14 (13-39) U/L ALT 26 (7-52) U/L Alkaline Phosphatase 44 (34-104) U/L Troponin I High Sens 731.1 H* (0-20) pg/ml B-Natriuretic Peptide (0-100) pg/ml Total Protein 6.6 (6.0-8.3) gm/dl Albumin 4.1 (3.4-5.0) gm/dl Globulin 2.5 (2.5-4.0) gm/dl Albumin/Globulin Ratio 1.6 (0.9-2) SARS-CoV-2, RNA, NAAT (NEGATIVE) 06/25/23 06/25/23 06/25/23 Range/Units 11:49 11:52 12:02 WBC (4.8-10.8) K/ul RBC (4.70-6.10) M/uL Hgb (14.0-18.0) g/dl POC Hgb 9.5 L (14.0-18.0) g/dl Hct (42.0-52.0) % POC Hct 28 L (42-52) % MCV (80.0-100.0) fL MCH (25.0-34.0) pg MCHC (32.0-36.0) g/dL RDW Std Deviation (36.4-46.3) fL RDW Coeff of Collin (11.5-14.5) % Plt Count (130-400) K/uL MPV (9.4-12.4) fL Immature Gran % (Auto) % Neut % (Auto) % Lymph % (Auto) % [place] % (Auto) % Eos % (Auto) % Baso % (Auto) % Neut # (Auto) (1.40-6.50) K/uL Lymph # (Auto) (1.20-3.40) K/uL [place] # (Auto) (0.11-0.59) K/uL Eos # (Auto) (0.00-0.50) K/uL Baso # (Auto) (0.00-0.20) K/uL Immature Gran # (Auto) (0.01-0.20) K/uL Absolute Nucleated RBC (0.00-0.12) K/uL Nucleated RBC % (auto) % Polychromasia Tear Drop Cells PT (9.0-12.0) Seconds INR (0.9-1.1) APTT (21.0-31.0) Seconds PTT Ratio POC Sodium 140 (135-144) mmol/L Sodium (136-145) mmol/L POC Potassium 4.0 (3.3-5.0) mmol/L Potassium (3.5-5.1) mmol/L POC Chloride 107 (101-112) mmol/L Chloride (98-107) mmol/L Carbon Dioxide (21-32) mmol/L POC Total CO2 20 L (24-31) mmol/L Anion Gap (3-11) POC Anion Gap 18.0 (16-25) mmol/L POC BUN 22 H (7-18) mg/dl BUN (6-23) mg/dl Creatinine (0.6-1.4) mg/dl POC Creatinine 1.5 H (0.6-1.3) mg/dl Est Cr Clr Drug Dosing ml/min Est GFR ( Amer) ml/min Est GFR (Non-Af Amer) ml/min BUN/Creatinine Ratio (10-20) Glucose (70-99(Fasting)) mg/dl POC Glucose (other) 213 H (70-99) mg/dl Calcium (8.6-10.3) mg/dl POC Ioniz Calcium Thania 1.05 L (1.12-1.32) mmol/l Total Bilirubin (0.2-1.0) mg/dl AST (13-39) U/L ALT (7-52) U/L Alkaline Phosphatase (34-104) U/L Troponin I High Sens (0-20) pg/ml B-Natriuretic Peptide 656 H (0-100) pg/ml Total Protein (6.0-8.3) gm/dl Albumin (3.4-5.0) gm/dl Globulin (2.5-4.0) gm/dl Albumin/Globulin Ratio (0.9-2) SARS-CoV-2, RNA, NAAT NEGATIVE (NEGATIVE) Imaging Data Attestation: I personally reviewed and interpreted this imaging study as follows: My Impression: Chest x-ray interpreted by me cardiomegaly Radiologist's Impression: Chest X-Ray 06/25/23 11:32 XR chest 1V portable CLINICAL HISTORY: Chest pain, nonspecific TECHNIQUE: Single frontal radiograph of the chest was obtained. Comparison: Comparison is made to chest radiograph 11/04/2022 FINDINGS: An implanted pacemaker is seen. Median sternotomy wires are seen. Cardiomegaly is noted. The lungs are clear. Blunting of the bilateral costophrenic angles is again seen. IMPRESSION: No acute chest disease. Cardiomegaly is noted. ACT 112: Negative or not required by law. Electronically signed by: Tacho Lambert M.D. 06/25/2023 12:11 PM ECG Data Attestation: I personally reviewed and interpreted this ECG as follows: Additional Comments: EKG interpreted by me initial at 11:35 AM, rapid atrial fibrillation rate of 164 ST segment depression inferolaterally poor R wave progression the precordium right axis deviation no obvious ST segment elevation Telemetry was ordered by me and at 1159 interpreted by me as atrial fibrillation rate of 99 MDM Narrative Medical decision making differential diagnosis includes paroxysmal rapid atrial fibrillation, CHF, pneumonia, acute coronary syndrome, metabolic derangement, anemia, pneumonia Plan is to check labs, EKG, chest x-ray External medical records were reviewed by me Patient has a heart score 4 Patient is on Eliquis, is currently not having any chest pain or rapid atrial fibrillation. [facility] Impression & Plan ACS (acute coronary syndrome), Atrial fibrillation with rapid ventricular response Discharge Plan Visit Data Chief Complaint: Respiratory Problems Stated Complaint: HARD TIME BREATHING ED Provider: Christ Mixon Discharge Problem: ACS (acute coronary syndrome), Atrial fibrillation with rapid ventricular response Patient Disposition: Admitted As Inpatient Forms Stand Alone Forms: My [facility] Prescriptions Prescriptions: No Action atorvastatin 40 mg tablet 40 mg PO DAILY Eliquis 5 mg tablet 5 mg PO BID insulin glargine [Basaglar KwikPen U-100 Insulin] 100 unit/mL (3 mL) insulin pen 45 unit SUBCUT QPM omega-3 fatty acids 1,000 mg Capsule 1,000 mg PO BID sennosides [senna] 8.6 mg Tablet 17.2 mg PO HS PRN (Reason: Constipation) digoxin 125 mcg (0.125 mg) tablet 125 mcg PO Q OTHER DAY albuterol sulfate 90 mcg/actuation Hfa Aerosol Inhaler 2 puff INHALATION Q6H PRN (Reason: COUGH/SHORT OF BREATH/WHEEZING) lenalidomide [Revlimid] 10 mg capsule 10 mg PO DIRECTED Rx Instructions: TAKES FOR 21 DAYS THEN OFF FOR 7 DAYS. calcium carbonate-vitamin D3 [Calcium 600 + D(3)] 600 mg-10 mcg (400 unit) Ta blet 1 tab PO BID metoprolol succinate [Toprol XL] 50 mg tablet extended release 24 hr 50 mg PO BID Rx Instructions: PER EXT MED HX 10/06/22---50 MG BID potassium chloride 20 mEq tablet,ER particles/crystals 20 meq PO BID prochlorperazine maleate 10 mg Tablet 10 mg PO Q6H PRN (Reason: nausea) ondansetron 8 mg Tablet,Disintegrating 8 mg PO Q8H PRN (Reason: Nausea) Victoza 2-Jed 0.6 mg/0.1 mL (18 mg/3 mL) Pen Injector 1.2 mg SUBCUT DAILY polyethylene glycol 3350 [Miralax] 17 gram Powder In Packet 17 g PO DAILY PRN (Reason: constipation) Qty: 15 0RF nitroglycerin 0.4 mg tablet, sublingual 0.4 mg sublingual .Q 5 MIN MDD 3 doses in 15 min PRN (Reason: Chest Pain) insulin aspart U-100 [Novolog FlexPen U-100 Insulin] 100 unit/mL (3 mL) insulin pen 15 unit SUBCUT TIDM MDD 60 UNITS Patient Comments: Uses scale to dose Rx Instructions: PLUS CORRECTION OF 1:25 OVER 150. gabapentin 300 mg capsule 300 mg PO AMHS Rx Instructions: BID PER DR 1ST docusate sodium [Colace] 100 mg capsule 100 mg PO BID PRN (Reason: Constipation) morphine 15 mg tablet 15 mg PO Q4H PRN (Reason: Pain) mecobalamin (vitamin B12) [B12 Active] 1,000 mcg Tablet,Chewable 1,000 mcg PO DAILY dexamethasone 4 mg tablet 4 mg PO DIRECTED Rx Instructions: With cemo cycles mirtazapine 30 mg tablet 30 mg PO HS omeprazole 20 mg capsule,delayed release(DR/EC) 20 mg PO QAM Referrals Referrals: Landen Macario DO [Primary Care Provider] -
[2023-06-25 12:04] LABS: iSTAT Creatinine 1.5 mg/dl (0.6-1.3); iSTAT Hemoglobin 9.5 g/dl (14.0-18.0); iSTAT Ionized Calcium 1.05 mmol/l (1.12-1.32)
--- NOTE | 2023-06-25 12:12 | XRay Report ---
XR chest 1V portable CLINICAL HISTORY: Chest pain, nonspecific TECHNIQUE: Single frontal radiograph of the chest was obtained. Comparison: Comparison is made to chest radiograph 11/04/2022 FINDINGS: An implanted pacemaker is seen. Median sternotomy wires are seen. Cardiomegaly is noted. The lungs ar e clear. Blunting of the bilateral costophrenic angles is again seen. IMPRESSION: No acute chest disease. Cardiomegaly is noted. ACT 112: Negative or not required by law. Electronically signed by: Tacho Lambert M.D. 06/25/2023 12:11 PM
[2023-06-25 12:14] LABS: Hematocrit (blood only) 29.5 % (42.0-52.0); Hemoglobin 9.6 g/dl (14.0-18.0); Mean Corpuscular Hemoglobin 33.1 pg (25.0-34.0); Mean Corpuscular Hgb Conc 32.5 g/dL (32.0-36.0); Mean Corpuscular Volume 101.7 fL (80.0-100.0); Mean Platelet Volume 11.4 fL (9.4-12.4); Nucleated RBC # (auto) 0.07 K/uL (0.00-0.12); Nucleated RBC % (auto) 2.3 %; Platelet Count 157 K/uL (130-400); RDW Coefficient of Variation 16.3 % (11.5-14.5); RDW Standard Deviation 59.8 fL (36.4-46.3); White Blood Count 3.08 K/ul (4.8-10.8)
[2023-06-25 12:32] LABS: Alanine Aminotransferase 26 U/L (7-52); Albumin Globulin Ratio 1.6 (0.9-2); Albumin Level 4.1 gm/dl (3.4-5.0); Alkaline Phosphatase 44 U/L (34-104); Anion Gap 11 (3-11); Aspartate Aminotransferase 14 U/L (13-39); BUN Creatinine Ratio 16.4 (10-20); Bilirubin,Total 0.8 mg/dl (0.2-1.0); Blood Urea Nitrogen 24 mg/dl (6-23); Calcium 8.2 mg/dl (8.6-10.3); Carbon Dioxide 20 mmol/L (21-32); Chloride 108 mmol/L (98-107); Creatinine Clr Calc Pharmacy 45.1 ml/min; Est GFR (Non-African American) 45.7 ml/min; Globulin 2.5 gm/dl (2.5-4.0); Glucose 227 mg/dl (70-99(Fasting)); Potassium 4.1 mmol/L (3.5-5.1); Sodium 139 mmol/L (136-145); Total Protein 6.6 gm/dl (6.0-8.3)
[2023-06-25 12:39] LABS: INR 1.1 (0.9-1.1); Partial Thromboplastin Ratio 0.9; Partial Thromboplastin Time 25.8 Seconds (21.0-31.0); Prothrombin Time 11.6 Seconds (9.0-12.0)
[2023-06-25 12:40] LABS: Basophils # (auto) 0.01 K/uL (0.00-0.20); Basophils % (auto) 0.3 %; Eosinophils # (auto) 0.06 K/uL (0.00-0.50); Eosinophils % (auto) 1.9 %; Immature Granulocytes # (auto) 0.27 K/uL (0.01-0.20); Immature Granulocytes % (auto) 8.8 %; Lymphocytes # (auto) 0.48 K/uL (1.20-3.40); Lymphocytes % (auto) 15.6 %; Monocytes # (auto) 0.25 K/uL (0.11-0.59); Monocytes % (auto) 8.1 %; Neutrophils # (auto) 2.01 K/uL (1.40-6.50); Neutrophils % (auto) 65.3 %; Polychromasia 1+; Tear Drop Cells 1+
[2023-06-25 12:44] LABS: Troponin I High Sensitivity 731.1 pg/ml (0-20)
--- NOTE | 2023-06-25 13:26 | History & Physical Report ---
Date of Service June 25, 2023 Assessment & Plan (1) Atrial fibrillation with rapid ventricular response: (2) Pacemaker: (3) CAD (coronary artery disease): (4) HLD (hyperlipidemia): (5) HTN (hypertension): (6) Multiple myeloma: (7) Type 2 diabetes mellitus: (8) Diabetic peripheral neuropathy associated with type 2 diabetes mellitus: Plan Shortness of breath Dyspnea on exertion Chronic Interstitial lung disease Emphysema - O2 sats at 94% on RA - CXR reviewed without acute chest disease but shows blunting of costophrenic angles. Will obtain CT of the chest with hx of MM to r/o any underlying infectious process - does not wear supplemental O2 at baseline - Check an RVP with immunosuppression Left Foot Wound - Chronic, following with the wound clinic - pt reports some pain with walking and is wearing a boot, recently completed outpatient course of Augmentin for + klebsiella oxytoca and enterococcus faecalis on 04/27/23. - Pressure offloading with CAM boot - Will obtain XR stat to r/o infectious source and osteomyelitis - consider MRI - Check blood cultures, wound culture, lactic acid - Wound nurse consultation ABDI - Acute, creatinine baseline of 1.85, currently Cr 1.46, elevated - hold on fluids at this time due to cardiac workup - Renally reduce medications and avoid nephrotoxins Afib with RVR CAD Ischemic cardiac disease Chronic systolic and diastolic CHF SSS s/p pacemaker HTN HLD -Monitor on tele - EKG reviewed showing afib with RVR in 120s upon coming to the ER personally --per ER, no intervention and the pt converted spontaneously back into NSR, currently HR of 78, BP 128/78 - Cardiology consultation - Continue Eliquis 5 mg BID - Rate controlled with digoxin 125 mg every other day, metoprolol succ 50 mg BID - Check Echo, history of decreased EF 40 to 45%, mild wall motion abnormality with hypokinesis of inferior septum, inferior wall and inferior lateral wall mild MR, mild TR, mild pulmonary hypertension present diastolic dysfunction grade 2 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 Currently undergoing chemotherapy with Darzalex , revlimid and decadron ---possible that regimen is increasing potential for afib to occur? Pt is not a candidate for high dose chemotherapy or stemm cell tranplant due to comorbid condition and lung issues. - Primary oncologist is Dr. Van - Cont dexamethasone 20 mg once per week on Wednesday - Revlimid 10 mg daily - Linzess for opiod induced constipation, prn bowel regimen ordered - Continue morphine IR 15 mg for pain, gabapentin 300 mg BID DM II Peripheral Neuropathy - Last A1C was 6.6 on 06/14/23 - ISS with accuchecks achs - at home uses novolog 15 U QAM, noon and QPM. - Victoza 1.2 mg daily DVT ppx: eliquis BID Diet: HH/Diabetic diet Lines: 2 PIV CODE: DNR/DNI Dispo: From home, lives with , likely to remain in hospital x 1-2 days History of Present Illness Chief Complaint: Shortness of breath Primary Care Provider: Landen Macario, This is a 78-year-old male with PMHx of chronic systolic CHF, chronic ischemic heart disease, HTN, HLD, CAD s/p CABG, history of STEMI, paroxysmal A-fib, SSS s/p pacemaker, DM type II, peripheral neuropathy, GERD, CKD, multiple myeloma currently undergoing chemotherapy with Darzalex, revlimid and decadron, last treatment was on 05/25/[address] Van. Next appointment is on 06/29/2023. Other past medical history includes emphysema, interstitial lung disease, and therapeutic opioid-induced constipation. Mr. Hernandez is here with his today. They report that they just returned yesterday from a cruise to [place] from which they were on for 5 days. Prior to this trip he noticed increasing shortness of breath, dyspnea on exertion but did not feel that it was bad enough to contact doctors office. Since then, reports increased shortness of breath for the past 6 days total, and seems to be progressively worsening. With exertion he is experiencing increased palpitations in his chest, which then subside most of the time after resting a while. He feels that upon walking down a hallway that he has to stop and catch his breath. He denies any fevers or sweats but reports that he has been chilled here in the ER today. Patient has been following with wound care as an outpatient for a left foot ulceration for which he is wearing a pressure offloading boot, and states that a few weeks ago he completed a antibiotic course for an infection. He feels that his foot is not currently infected, denies surrounding redness. He has kept a bandage over top of the wound and there is some purulent drainage on this upon removal personally, and also has a significant odor. He admits that it is somewhat painful for him to walk on. Patient denies any recent illnesses or known sick contacts. They report that they kept their distance from other members on the cruise ship. He reports having a runny nose but states that this is chronic, denies any other respiratory viral type symptoms. He has been eating and drinking well without difficulty. Patient has taken all his normally scheduled medications, and has not missed any of his cardiac meds including metoprolol succinate, digoxin or Eliquis. He denies any alcohol use or smoking, but reports that his smokes in the kitchen in their house. Allergies Allergy/AdvReac Type Severity Reaction Status Date / Time tizanidine Allergy Unknown UNKNOWN--ON Verified 06/25/23 13:38 [facility] [place] MED LIST Home Medications Medication Instructions Recorded Confirmed Type apixaban 5 mg tablet (Eliquis) 5 mg PO BID 06/25/20 06/25/23 History atorvastatin 40 mg tablet 40 mg PO DAILY 06/25/20 06/25/23 History liraglutide 0.6 mg/0.1 mL (18 mg/3 1.2 mg subcut DAILY 09/30/21 06/25/23 History mL) subcutaneous pen injector (Victoza 2-Jed) ondansetron 8 mg disintegrating 8 mg PO Q8H PRN Nausea 09/30/21 06/25/23 History tablet prochlorperazine maleate 10 mg 10 mg PO Q6H PRN nausea 09/30/21 06/25/23 History tablet polyethylene glycol 3350 17 gram 17 g PO DAILY PRN constipation #15 10/05/21 06/25/23 Rx oral powder packet (Miralax) ea nitroglycerin 0.4 mg sublingual 0.4 mg sublingual .Q 5 MIN PRN 11/01/21 06/25/23 History tablet Chest Pain omega-3 fatty acids 1,000 mg 1,000 mg PO BID 04/15/22 06/25/23 History capsule docusate sodium 100 mg capsule 100 mg PO BID PRN Constipation 04/22/22 06/25/23 History (Colace) gabapentin 300 mg capsule 300 mg PO AMHS 04/22/22 06/25/23 History mecobalamin (vitamin B12) 1,000 1,000 mcg PO DAILY 04/22/22 06/25/23 History mcg chewable tablet (B12 Active) morphine 15 mg immediate release 15 mg PO Q4H PRN Pain 04/22/22 06/25/23 History tablet albuterol sulfate 90 mcg/actuation 2 puff inhalation Q6H PRN 11/04/22 06/25/23 History aerosol inhaler COUGH/SHORT OF BREATH/WHEEZING calcium carbonate 600 mg-vitamin 1 tab PO BID 11/04/22 06/25/23 History D3 10 mcg (400 unit) tablet (Calcium 600 + D(3)) digoxin 125 mcg (0.125 mg) tablet 125 mcg PO Q OTHER DAY 11/04/22 06/25/23 History lenalidomide 10 mg capsule 10 mg PO DIRECTED 11/04/22 06/25/23 History (Revlimid) metoprolol succinate 50 mg 50 mg PO BID 11/04/22 06/25/23 History tablet,extended release 24 hr (Toprol XL) potassium chloride 20 mEq 20 meq PO BID 11/04/22 06/25/23 History tablet,extended release(part/cryst) sennosides 8.6 mg tablet (senna) 17.2 mg PO HS PRN Constipation 11/04/22 06/25/23 History insulin aspart U-100 100 unit/mL 15 unit subcut TIDM 12/31/22 06/25/23 History (3 mL) subcutaneous pen (Novolog FlexPen U-100 Insulin aspart) insulin glargine 100 unit/mL (3 40 unit subcut QPM 12/31/22 06/25/23 History mL) subcutaneous pen (Basaglar KwikPen U-100 Insulin) dexamethasone 4 mg tablet 20 mg PO WK 06/25/23 06/25/23 History mirtazapine 30 mg tablet 30 mg PO HS 06/25/23 06/25/23 History omeprazole 20 mg capsule,delayed 20 mg PO QAM 06/25/23 06/25/23 History release Past Med/Surg History Medical History ABDI (acute kidney injury) CAD (coronary artery disease) CHI (closed head injury) Chronic deep vein thrombosis (DVT) Diabetic ulcer of left foot Diarrhea Hallux rigidus of left foot "S/p multiple surgeries" History of basal cell carcinoma History of melanoma in situ History of pilonidal cyst HLD (hyperlipidemia) NSTEMI (non-ST elevated myocardial infarction) Pacemaker Pneumonia Type 2 diabetes mellitus Surgical History History of bone marrow biopsy History of cataract surgery History of foot surgery S/P CABG x 4 S/P Mohs surgery for basal cell carcinoma Status post total hip replacement, left Family History Mother Lymphoma Social History Smoking Status: Former smoker Tobacco Type: Cigarettes Cigarettes Per Day: 1-2 times a month; Second Hand Exposure: No; Do You Dip or Chew Tobacco: No; Hx Alcohol Use: No Hx Substance Use: Yes Prescribed Medications: Marijuana Substance Use Type Other:: has a marijuana card but he states he "... doesnt use it" Preferred Language: Angolan Communication Ability: Effective Visual Impairment: No Limitations Hearing Ability: Normal Program Development Specialist Required: No Beliefs That Will Affect Care: None marital status: Current Living Situation: Spouse current occupational status: retired How many Children do You have: 1 How many Children do You have Comment: Magi lives in [facility]. able to assist with care as needed. Feels Safe at Home: Yes Safety Concerns: Feels Safe At This Time Diet: regular Diet Comment: Trying to gain weight caffeine: No during the past year weight has: decreased > 10 lbs Assistive Devices: Cane, Special Shoe and Walker Assistive Devices Comment: boot for left foot Review of Systems Review of Systems: Constitutional: No fever, sweats, + chills Eyes: No diplopia, no worsening or blurred vision ENT: normal hearing, no trouble swallowing, + runny nose Respiratory: + Occasional cough, no sputum, no dyspnea at rest, + dyspnea on exertion Cardiovascular: No chest pain, + palpitations as per HPI, denies tightness or palpitations Abdomen: No pain, nausea, vomiting, diarrhea,+ history of constipation Musculoskeletal: No joint pain, calf pain, swelling Neurologic: No weakness, numbness/tingling, or balance problems Psychiatric: No anxiety or depression Skin: No rash or itch, + left plantar foot wound as per HPI Physical Exam Physical Exam: General: awake, alert, no apparent distress, + appears very coreas Head: Normocephalic, atraumatic ENT: PERRL, EOMI, no pharyngeal exudate, mucous membranes moist Chest: Diminished breath sounds but no wheeze, rales or rhonchi, on room air, no adventitious breath sounds Cardiac: Regular rate and rhythm, few PVCs, Hr in 80s at bedside, no murmur, no JVD, normal peripheral pulses, good capillary refill Abdominal: NABS x 4 quadrants, soft, nondistended, nontender to palpation, no rebound or guarding Extremities: left plantar foot wound ~ 1 cm in diameter, foul smelling, black eschar, no surrounding erythema, +mild drainage on bandage. Otherwise Normal inspection, no peripheral edema or erythema, calfs nontender to palpation Psych: Normal mood and affect Neuro: AAO x 3, strength intact bilaterally and rated 5/5, no motor deficits, speech is clear, no peripheral sensory deficits Results & Data Results & Data Vital Signs (Past 12 Hours) Vital Signs Temp Pulse Resp BP Pulse Ox O2 Del Method O2 Flow Rate 06/25/23 12:23 78 06/25/23 12:00 93 H 20 94 Room Air 06/25/23 11:56 95 H 17 98 06/25/23 11:55 98 Room Air 0 06/25/23 11:28 36.3 C L 100 H 20 128/78 97 Room Air Laboratory Results 06/25/23 06/25/23 06/25/23 12:02 11:52 11:49 WBC RBC Hgb POC Hgb 9.5 L Hct POC Hct 28 L MCV MCH MCHC RDW Std Deviation RDW Coeff of Collin Plt Count MPV Immature Gran % (Auto) Neut % (Auto) Lymph % (Auto) [place] % (Auto) Eos % (Auto) Baso % (Auto) Neut # (Auto) Lymph # (Auto) [place] # (Auto) Eos # (Auto) Baso # (Auto) Immature Gran # (Auto) Absolute Nucleated RBC Nucleated RBC % (auto) Polychromasia Tear Drop Cells PT INR APTT PTT Ratio POC Sodium 140 Sodium POC Potassium 4.0 Potassium POC Chloride 107 Chloride Carbon Dioxide POC Total CO2 20 L Anion Gap POC Anion Gap 18.0 POC BUN 22 H BUN Creatinine POC Creatinine 1.5 H Est Cr Clr Drug Dosing Est GFR ( Amer) Est GFR (Non-Af Amer) BUN/Creatinine Ratio Glucose POC Glucose (other) 213 H Calcium POC Ioniz Calcium Thania 1.05 L Total Bilirubin AST ALT Alkaline Phosphatase Troponin I High Sens B-Natriuretic Peptide 656 H Total Protein Albumin Globulin Albumin/Globulin Ratio SARS-CoV-2, RNA, NAAT NEGATIVE 06/25/23 06/25/23 06/25/23 11:49 11:49 11:49 WBC 3.08 L RBC 2.90 L Hgb 9.6 L POC Hgb Hct 29.5 L POC Hct MCV 101.7 H MCH 33.1 MCHC 32.5 RDW Std Deviation 59.8 H RDW Coeff of Collin 16.3 H Plt Count 157 MPV 11.4 Immature Gran % (Auto) 8.8 Neut % (Auto) 65.3 Lymph % (Auto) 15.6 [place] % (Auto) 8.1 Eos % (Auto) 1.9 Baso % (Auto) 0.3 Neut # (Auto) 2.01 Lymph # (Auto) 0.48 L [place] # (Auto) 0.25 Eos # (Auto) 0.06 Baso # (Auto) 0.01 Immature Gran # (Auto) 0.27 H Absolute Nucleated RBC 0.07 Nucleated RBC % (auto) 2.3 Polychromasia 1+ Tear Drop Cells 1+ PT 11.6 INR 1.1 APTT 25.8 PTT Ratio 0.9 POC Sodium Sodium 139 POC Potassium Potassium 4.1 POC Chloride Chloride 108 H Carbon Dioxide 20 L POC Total CO2 Anion Gap 11 POC Anion Gap POC BUN BUN 24 H Creatinine 1.46 H POC Creatinine Est Cr Clr Drug Dosing 45.1 Est GFR ( Amer) 53.0 Est GFR (Non-Af Amer) 45.7 BUN/Creatinine Ratio 16.4 Glucose 227 H POC Glucose (other) Calcium 8.2 L POC Ioniz Calcium Thania Total Bilirubin 0.8 AST 14 ALT 26 Alkaline Phosphatase 44 Troponin I High Sens 731.1 H* B-Natriuretic Peptide Total Protein 6.6 Albumin 4.1 Globulin 2.5 Albumin/Globulin Ratio 1.6 SARS-CoV-2, RNA, NAAT Diagnostic Findings Chest X-Ray 06/25/23 11:32 XR chest 1V portable CLINICAL HISTORY: Chest pain, nonspecific TECHNIQUE: Single frontal radiograph of the chest was obtained. Comparison: Comparison is made to chest radiograph 11/04/2022 FINDINGS: An implanted pacemaker is seen. Median sternotomy wires are seen. Cardiomegaly is noted. The lungs are clear. Blunting of the bilateral costophrenic angles is again seen. IMPRESSION: No acute chest disease. Cardiomegaly is noted. ACT 112: Negative or not required by law. Electronically signed by: Tacho Lambert M.D. 06/25/2023 12:11 PM ECG Additional Comments: Reviewed - initially showing afib with RVR, now spontaneously converted back into normal sinus rhythm Code Status & VTE Plan Code Status DNR/DNI-discussed with the patient and his at bedside Supervising Physician Co-Signing Physician Notes Pt seen and examined by myself, Mirian Barbour MD on the day of service. Care was coordinated with Leandra Tracy PA-C. In short, pt is a 78yoM with PMHx significant for HFrEF, ischemic cardiomyopathy s/p cardiac bypass and pacemaker placement, COPD and interstitial lung disease and multiple myeloma who presents with increasing SOB. On my exam, pt was resting comfortably watching TV. States that he only has the SOB with activity. On RA, irregular HR at the time of my exam, breath sounds decreased bilaterally, no noted wheezing. Given significant cardiac Hx, would appreciate cardiology recommendations. Will rule out further causes with biofire, CT chest, blood cultures. ABDI noted, baseline Cr about 0.85, Cr 1.46 on admission. Will hold off on fluids at this time pending further cardiology recs. Otherwise as above.
--- NOTE | 2023-06-25 14:23 | Cardiology Consultation ---
Date of Consultation June 25, 2023 Assessment & Plan (1) Paroxysmal atrial fibrillation with RVR: (2) Ischemic cardiomyopathy: (3) Elevated troponin: (4) Tachy-abhay syndrome: (5) Multiple myeloma: (6) Anemia: Plan 78 year old male admitted with acute on chronic shortness of breath appearing to be multifactorial in etiology. Patient with centrilobular emphysema, interstitial lung disease, multiple myeloma treated with Darzalex plus Revlimid and Decadron, anemia, ischemic cardiomyopathy status post remote bypass surgery, chronic class 2-3 angina pectoris, heart failure with reduced ejection fraction, and atherosclerotic peripheral vascular disease with an open wound on the left lower extremity. In my opinion, the paroxysmal atrial fibrillation is secondary here. Mr. Hernandez chronically has paroxysmal atrial fibrillation on personal review of prior outpatient pacemaker interrogations. Amiodarone was previously prescribed from September 2021 to March [address] Martinez recommended discontinuation due to concerns for amiodarone induced lung toxicity; although the note says he was prescribed amiodarone for 20 years, this was not the case. Additionally, review of the pacemaker interrogations when he was prescribed amiodarone shows that the amiodarone failed to control the patient's paroxysmal atrial fibrillation. Recommendations: 1. Medical management. 2. Evaluate need for supplemental oxygen therapy prior to discharge. 3. ? addition of bronchodilator/inhaled corticosteroid therapies. 4. Await resting echocardiography interpretation 5. Increase metoprolol succinate dosing to 75 mg twice a day for heart rate control. 6. Continue renally dosed digoxin. 7. Continue anticoagulation (prescribed Eliquis as an outpatient) 8. Add Isordil 5 mg twice a day, 8 AM and 1 PM 9. Patient may require low dose loop diuretic a few days per week. 10. Further recommendations pending the above, evaluation by Dr. Mejia, patient's ongoing hospitalization. Supervising Physician Co-Signing Physician Notes Supervising Physician Attestation: I have personally performed a history and physical examination on the patient. I agree with the physician ob gyn physician assistant's findings and plan as documented with the following additions. Subjective: At the time my assessment seeing the patient in the emergency department, room C9, he was completely comfortable at rest. He has an ongoing ulceration on the midportion of the foot pad of the left foot that he states is not bothering him. He states that if he is sedentary he feels fine but when he tries to do anything such as walking on his recent vacation he becomes very dyspneic. 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 Exam: Cardiovascular irregular rhythm, rate controlled at present at rest, no edema Lungs: No rales rhonchi or wheezing Data: Echocardiogram performed today 06/25/2023 while patient was in atrial fibrillation with rate ranging from the 70s to 80s. The left ventricular systolic function is moderately reduced with ejection fraction in the range of 35-40%. There is a large wall motion abnormality with hypokinesis of the basal inferoseptum, inferior wall at the basal and mid levels, and basal inferolateral wall. The pulmonary artery systolic pressure is estimated be 37 mm Hg ) upper limit of normal). Doppler and 2D data suggestive of elevated diastolic filling pressures. Compared to the previous inpatient study performed in April,, the ejection fraction was great to be 40 to 45% at that time. CT of the chest reveals prominent emphysema and interstitial fibrotic lung disease per the radiology report Assessment and Plan: 78-year-old male who presents with what is felt to be multifactorial dyspnea on exertion. He has a history of remote CABG in 1993, and ischemic cardiomyopathy, paroxysmal atrial fibrillation, and underlying lung disease having smoked 2 packs/day for 25 years. Mild anemia noted. He does not examine as if he is volume overloaded. -Question if his atrial fibrillation with elevated rate and noted ischemia on EKG as demand ischemia in the setting of chronic coronary artery disease and severe underlying lung disease. Medication changes as outlined above. Would consider ambulatory pulse oximetry to assess for candidacy of oxygen supplementation. -I am not optimistic that a target for intervention would be found if coronary/bypass angiography pursued given history of known underlying multivessel squaxin coronary artery disease with bypass surgery 30 years ago. Gio Mejia, History of Present Illness Reason for Consultation: Atrial fibrillation. Elevated troponin Requesting Physician: Leandra Tracy Attending Physician: Mirian Barbour History of Present Illness Mr. Dev Hernandez is a very pleasant medically complex 78-year-old male who presented to the [facility] ER on June 25, 2023 with complaints of acute on chronic dyspnea with associated palpitations. The patient notes recently being on a 5-day cruise with his and having difficulty maneuvering through the ship due to acute shortness of breath requi ring him to stop and rest in the hallway starting around the third day of the cruise, shortness of breath associated with palpitations and chest heaviness. At baseline, he may be able to walk 2 blocks before needing to rest. Initial EKG in the ER revealed atrial fibrillation with a rapid ventricular response (164 bpm) with marked ST abnormality in the inferior and lateral leads. A second EKG revealed atrial fibrillation with a ventricular rate of 105 bpm with ongoing marked inferolateral ST changes suggestive of ischemia. A third EKG obtained in the ER revealed atrial fibrillation with a ventricular rate of 81 bpm, ongoing inferolateral ST changes. When compared to prior available EKG tracings, the inferolateral changes are more pronounced. High-sensitivity troponin elevated 731.1 pg/mL. Resting echocardiography obtained during my evaluation, results pending interpretation by Dr. Mejia. H&H 9.6 and 29.5. Creatinine 1.46. BNP 656. SARS-CoV-2 testing negative. Biofire pending. Chest x-ray was interpreted by the radiologist as showing no active chest disease. At the time of my evaluation the patient is underlying resting echocardiography. He remains in atrial fibrillation. He is feeling OK at present. No orthopnea, PND, or peripheral edema. No dizziness or syncope. No fevers or chills. No melena or hematochezia. The patient has been compliant with his medications, without interruption on the cruise. Past Medical and Surgical History: Atherosclerotic coronary disease, status post coronary bypass grafting 1993, receiving a BISHOP to LAD, gastroepiploic artery to right PDA, and left radial arterial graft to OM branch vessel. Class 2-3 angina pectoris. 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 Hypertension Hyperlipidemia Diabetes mellitus with neuropathy Multiple myeloma, IgA kappa with lytic bone lesions- follows with Hematology Centrilobular emphysema. Chronic interstitial lung disease GERD Family History: Mother with lymphoma. Father with war related complications. Two brothers with lung cancer. Social History: Reformed smoker having quit on October 18, 1979 after smoking up to 2 packs/day x 25 years. Social alcohol. No illegal drug use. . Born and raised in [place]. Retired from [employer] Allergies Allergy/AdvReac Type Severity Reaction Status Date / Time tizanidine Allergy Unknown UNKNOWN--ON Verified 06/25/23 13:38 [facility] [place] Home Medications Medication Instructions Recorded Confirmed Type apixaban 5 mg tablet (Eliquis) 5 mg PO BID 06/25/20 06/25/23 History atorvastatin 40 mg tablet 40 mg PO DAILY 06/25/20 06/25/23 History liraglutide 0.6 mg/0.1 mL (18 mg/3 1.2 mg subcut DAILY 09/30/21 06/25/23 History mL) subcutaneous pen injector (Qriketza 2-Jed) ondansetron 8 mg disintegrating 8 mg PO Q8H PRN Nausea 09/30/21 06/25/23 History tablet prochlorperazine maleate 10 mg 10 mg PO Q6H PRN nausea 09/30/21 06/25/23 History tablet polyethylene glycol 3350 17 gram 17 g PO DAILY PRN constipation #15 10/05/21 06/25/23 Rx oral powder packet (Miralax) ea nitroglycerin 0.4 mg sublingual 0.4 mg sublingual .Q 5 MIN PRN 11/01/21 06/25/23 History tablet Chest Pain omega-3 fatty acids 1,000 mg 1,000 mg PO BID 04/15/22 06/25/23 History capsule docusate sodium 100 mg capsule 100 mg PO BID PRN Constipation 04/22/22 06/25/23 History (Colace) gabapentin 300 mg capsule 300 mg PO AMHS 04/22/22 06/25/23 History mecobalamin (vitamin B12) 1,000 1,000 mcg PO DAILY 04/22/22 06/25/23 History mcg chewable tablet (B12 Active) morphine 15 mg immediate release 15 mg PO Q4H PRN Pain 04/22/22 06/25/23 History tablet albuterol sulfate 90 mcg/actuation 2 puff inhalation Q6H PRN 11/04/22 06/25/23 History aerosol inhaler COUGH/SHORT OF BREATH/WHEEZING calcium carbonate 600 mg-vitamin 1 tab PO BID 11/04/22 06/25/23 History D3 10 mcg (400 unit) tablet (Calcium 600 + D(3)) digoxin 125 mcg (0.125 mg) tablet 125 mcg PO Q OTHER DAY 11/04/22 06/25/23 History lenalidomide 10 mg capsule 10 mg PO DIRECTED 11/04/22 06/25/23 History (Revlimid) metoprolol succinate 50 mg 50 mg PO BID 11/04/22 06/25/23 History tablet,extended release 24 hr (Toprol XL) potassium chloride 20 mEq 20 meq PO BID 11/04/22 06/25/23 History tablet,extended release(part/cryst) sennosides 8.6 mg tablet (senna) 17.2 mg PO HS PRN Constipation 11/04/22 06/25/23 History insulin aspart U-100 100 unit/mL 15 unit subcut TIDM 12/31/22 06/25/23 History (3 mL) subcutaneous pen (Novolog FlexPen U-100 Insulin aspart) insulin glargine 100 unit/mL (3 40 unit subcut QPM 12/31/22 06/25/23 History mL) subcutaneous pen (Basaglar KwikPen U-100 Insulin) dexamethasone 4 mg tablet 20 mg PO WK 06/25/23 06/25/23 History mirtazapine 30 mg tablet 30 mg PO HS 06/25/23 06/25/23 History omeprazole 20 mg capsule,delayed 20 mg PO QAM 06/25/23 06/25/23 History release Patient History Medical History ABDI (acute kidney injury) CAD (coronary artery disease) CHI (closed head injury) Chronic deep vein thrombosis (DVT) Diabetic ulcer of left foot Diarrhea Hallux rigidus of left foot "S/p multiple surgeries" History of basal cell carcinoma History of melanoma in situ History of pilonidal cyst HLD (hyperlipidemia) NSTEMI (non-ST elevated myocardial infarction) Pacemaker Pneumonia Type 2 diabetes mellitus Surgical History History of bone marrow biopsy History of cataract surgery History of foot surgery S/P CABG x 4 S/P Mohs surgery for basal cell carcinoma Status post total hip replacement, left Family History Mother Lymphoma Social History Smoking Status: Former smoker Tobacco Type: Cigarettes Cigarettes Per Day: 1-2 times a month; Second Hand Exposure: No; Do You Dip or Chew Tobacco: No; Hx Alcohol Use: No Hx Substance Use: No Preferred Language: Kiswahili Communication Ability: Effective Visual Impairment: No Limitations Hearing Ability: Normal Forestry Biology Specialist Required: No Beliefs That Will Affect Care: None marital status: Current Living Situation: Spouse current occupational status: retired How many Children do You have: 1 How many Children do You have Comment: Magi lives in [facility]. able to assist with care as needed. Feels Safe at Home: Yes Diet: regular Diet Comment: Trying to gain weight caffeine: No during the past year weight has: decreased > 10 lbs Assistive Devices: Cane and Walker Review of Systems Review of Systems: Complete Review of Systems is as stated above, negative, or noncontributory. Physical Exam Physical Exam: General: A&Ox3. NAD. HENT: Normocephalic. Atraumatic. Eyes: PER. Conjunctiva pink, sclera clear. Neck: Carotid bruits. No JVD. Heart: Irregularly irregular at 100 bpm. Soft systolic murmur at the LLSB. Lungs: Diminished. Decreased. Dry bibasilar rales. No wheeze. Abdomen: +BS. Soft. Nontender. No masses or organomegaly. Extremities: No clubbing, cyanosis, or edema. No pulses. + 3 cm wound on the plantar aspect of the left foot. Limited neurological examination is without focal deficits. Results & Data Vital Signs (Past 12 Hours) Vital Signs Temp Pulse Resp BP Pulse Ox O2 Del Method O2 Flow Rate 06/25/23 12:23 78 06/25/23 12:00 93 H 20 94 Room Air 06/25/23 11:56 95 H 17 98 06/25/23 11:55 98 Room Air 0 06/25/23 11:28 36.3 C L 100 H 20 128/78 97 Room Air Laboratory Results Cardiac Enzymes 06/25/23 06/25/23 Range/Units 11:49 11:49 AST 14 (13-39) U/L Troponin I High Sens 731.1 H* (0-20) pg/ml B-Natriuretic Peptide 656 H (0-100) pg/ml Coagulation 06/25/23 06/25/23 Range/Units 11:49 11:49 PT 11.6 (9.0-12.0) Seconds APTT 25.8 (21.0-31.0) Seconds B-Natriuretic Peptide 656 H (0-100) pg/ml CBC 06/25/23 Range/Units 11:49 WBC 3.08 L (4.8-10.8) K/ul RBC 2.90 L (4.70-6.10) M/uL Hgb 9.6 L (14.0-18.0) g/dl Hct 29.5 L (42.0-52.0) % Plt Count 157 (130-400) K/uL Neut # (Auto) 2.01 (1.40-6.50) K/uL Lymph # (Auto) 0.48 L (1.20-3.40) K/uL [place] # (Auto) 0.25 (0.11-0.59) K/uL Eos # (Auto) 0.06 (0.00-0.50) K/uL Baso # (Auto) 0.01 (0.00-0.20) K/uL Comprehensive Metabolic Panel 06/25/23 Range/Units 11:49 Sodium 139 (136-145) mmol/L Potassium 4.1 (3.5-5.1) mmol/L Chloride 108 H (98-107) mmol/L Carbon Dioxide 20 L (21-32) mmol/L BUN 24 H (6-23) mg/dl Creatinine 1.46 H (0.6-1.4) mg/dl Glucose 227 H (70-99(Fasting)) mg/dl Calcium 8.2 L (8.6-10.3) mg/dl AST 14 (13-39) U/L ALT 26 (7-52) U/L Alkaline Phosphatase 44 (34-104) U/L Total Protein 6.6 (6.0-8.3) gm/dl Albumin 4.1 (3.4-5.0) gm/dl Intake and Output 06/24/23 06/25/23 06/25/23 22:59 06:59 14:59 Other: Weight 77.1 kg Weight Measurement Method Built in [facility] Patient Weight 06/26/23 06:59 Weight 77.1 kg
--- NOTE | 2023-06-25 15:31 | XRay Report ---
XR foot LT min 3V routine HISTORY: 78 years-old Male left foot wound, eval for osteomyelitis chronic left leg pain COMPARISON: 01/08/2023 TECHNIQUE: 3 views of the left foot FINDINGS: Left first metatarsophalangeal joint fusion is again noted. Incomplete bony bridging has mildly progr essed from prior. Chronic extensive osteophytosis adjacent to the left first MTP joint is again noted . Subtle lucency adjacent to the remaining screw is similar to prior exam. There is no acute fracture within the left foot. No evidence for acute osteomyelitis. IMPRESSION: 1. No acute osseous abnormality. 2. Fusion of the MTP joint. ACT 112: Negative or not required by law. The above report was generated using voice recognition software. It may contain grammatical, syntax o r spelling errors. Electronically signed by: Uziel Nieto M.D. 06/25/2023 3:30 PM
[2023-06-25 15:40] LABS: Adenovirus PCR Not Detected (NotDetected); Bordetella parapertussis PCR Not Detected (NotDetected); Bordetella pertussis PCR Not Detected (NotDetected); Chlamydia pneumoniae PCR Not Detected (NotDetected); Coronavirus 229E PCR Not Detected (NotDetected); Coronavirus CoV-2 (COVID19)PCR Not Detected (NotDetected); Coronavirus HKU1 PCR Not Detected (NotDetected); Coronavirus NL63 PCR Not Detected (NotDetected); Coronavirus OC43PCR Not Detected (NotDetected); Human Metapneumovirus PCR Not Detected (NotDetected); Influenza A PCR Not Detected (NotDetected); Influenza B PCR Not Detected (NotDetected); Mycoplasma pneumoniae PCR Not Detected (NotDetected); Parainfluenza Virus 1 PCR Not Detected (NotDetected); Parainfluenza Virus 2 PCR Not Detected (NotDetected); Parainfluenza Virus 3 PCR Not Detected (NotDetected); Parainfluenza Virus 4 PCR Not Detected (NotDetected); Respiratory Syncytial VirusPCR Not Detected (NotDetected); Rhinovirus/Enterovirus PCR Not Detected (NotDetected)
--- NOTE | 2023-06-25 15:45 | CT Scan Report ---
CT chest diagnostic wo con CLINICAL HISTORY: Shortness of breath TECHNIQUE: Multidetector row helical CT of the chest was performed. Coronal and sagittal reformations were obtained. Automated dose lowering techniques and/or adjustment according to patient size were u tilized for this exam. CT DOSE: 414.00 mGy.cm Comparison: Comparison is made to CT chest 04/22/2022 FINDINGS: Lungs and pleura: Prominent emphysema favors the upper lobes. Interstitial thickening is also noted w ith bronchial wall thickening. No suspicious pulmonary nodules are seen. Heart and pericardium: Cardiomegaly is seen with biatrial enlargement. Pacemaker is seen. Vessels: Severe atherosclerotic changes in the aorta and coronary arteries. Mediastinum and josé: Subcentimeter lymph nodes are seen. Chest wall and lower neck: Unremarkable. Abdomen: Unremarkable. Bones: Degenerative changes of the thoracic spine. Old healed rib fractures are seen. IMPRESSION: 1. Prominent emphysema and interstitial fibrotic disease. No evidence of pneumonia. 2. Cardiomegaly with pacemaker placement. ACT 112: Negative or not required by law. Electronically signed by: Tacho Lambert M.D. 06/25/2023 3:43 PM
[2023-06-25] MEDS ORDERED: SENNA 8.6 MG TAB PO PRN (18:10)
[2023-06-25] MEDS ORDERED: GLUCAGON FOR INJ 1 MG VIAL SQ PRN (18:10)
[2023-06-25] MEDS ORDERED: MoRPHine SULFATE IR 15 MG TAB (IMMEDIATE RELEASE) PO PRN (18:10)
[2023-06-25] MEDS ORDERED: GLUCOSE 10 TAB/TUBE PO PRN (18:10)
[2023-06-25] MEDS ORDERED: CARBOHYDRATES FOR HYPOGLYCEMIA PO PRN (18:10)
[2023-06-25] MEDS ORDERED: DEXTROSE 50% 50 ML SYRINGE IV PRN (18:10)
[2023-06-25] MEDS ORDERED: ACETAMINOPHEN 325 MG TAB PO PRN (18:10)
[2023-06-25] MEDS ORDERED: PROCHLORPERAZINE MALEATE 10 MG TAB PO PRN (18:10)
[2023-06-25] MEDS ORDERED: ALBUTEROL HFA 8 GM INHALER INH PRN (18:10)
[2023-06-25] MEDS ORDERED: DOCUSATE SODIUM 100 MG CAP PO PRN (18:10)
[2023-06-25] MEDS ORDERED: GLUCOSE 40% GEL 15 GM TUBE PO PRN (18:10)
[2023-06-25] MEDS ORDERED: NON-FORMULARY MEDICATION (Insulin Aspart U-100 [Novolog Flexpen U-100 Insulin] 100 unit/mL SQ SCH (18:10)
[2023-06-25 18:11] LABS: Appearance Urine Clear (Clear); Bacteria Urine Automated Negative (Negative); Bilirubin Urine Negative (Negative); Blood Urine 2+ (Negative); Color Urine Yellow; Epithelial Cell Urine Auto 0-5 /lpf (0-5); Glucose Urine UA 2+ (Negative); Ketones Urine Negative (Negative); Leukocyte Esterase Urine Negative (Negative); Nitrite Urine Negative (Negative); Protein Urine 1+ (Negative); Specific Gravity Urine 1.015 (1.000-1.030); Urobilinogen Urine Negative (Negative); pH Urine 5.5 (4.5-7.5)
--- NOTE | 2023-06-25 18:15 | Electrocardiogram Report ---
Test Reason : Blood Pressure : / mmHG Vent. Rate : 105 BPM Atrial Rate : 000 BPM P-R Int : 000 ms QRS Dur : 094 ms QT Int : 336 ms P-R-T Axes : 000 074 246 degrees QTc Int : 444 ms Atrial fibrillation with rapid ventricular response Marked ST abnormality, possible inferolateral subendocardial injury Abnormal ECG When compared with ECG of 25-JUN-2023 11:35, (unconfirmed) Vent. rate has decreased BY 59 BPM Confirmed by Mariano Ahn ([id number]) on 06/25/2023 6:15:26 PM Referred By: REFERRED SELF Confirmed By:Marv Ahn
--- NOTE | 2023-06-25 18:16 | Electrocardiogram Report ---
Test Reason : Blood Pressure : / mmHG Vent. Rate : 164 BPM Atrial Rate : 000 BPM P-R Int : 000 ms QRS Dur : 092 ms QT Int : 330 ms P-R-T Axes : 000 071 248 degrees QTc Int : 545 ms Atrial fibrillation with rapid ventricular response Marked ST abnormality, possible inferolateral subendocardial injury Abnormal ECG When compared with ECG of 04-NOV-2022 00:27, Atrial fibrillation has replaced Sinus rhythm Vent. rate has increased BY [address] more depressed Inferior leads Confirmed by Mariano Ahn ([id number]) on 06/25/2023 6:16:04 PM Referred By: Confirmed By:Marv Ahn
--- NOTE | 2023-06-25 18:45 | Electrocardiogram Report ---
Test Reason : Blood Pressure : / mmHG Vent. Rate : 081 BPM Atrial Rate : 000 BPM P-R Int : 000 ms QRS Dur : 084 ms QT Int : 378 ms P-R-T Axes : 000 072 208 degrees QTc Int : 439 ms Atrial fibrillation Marked ST abnormality, possible inferolateral subendocardial injury Abnormal ECG When compared with ECG of 25-JUN-2023 11:36, (unconfirmed) ST less depressed in Lateral leads Confirmed by Mariano Ahn ([id number]) on 06/25/2023 6:45:07 PM Referred By: REFERRED SELF Confirmed By:Marv Ahn
[2023-06-25] MEDS: INSULIN ASPART PER UNIT CHARGE SC SCH ×2 (19:08→21:50)
[2023-06-25 20:50] LABS: Folate (Folic Acid),Ser orPlas 21.2 ng/ml (>5.38)
[2023-06-25] MEDS: POTASSIUM CHLORIDE CRTAB 20 MEQ TABCR PO SCH (21:40)
[2023-06-25] MEDS: METOPROLOL SUCC 50MG EXT REL TAB PO SCH (21:41)
[2023-06-25] MEDS: MIRTAZAPINE TAB 15 MG TAB PO SCH (21:41)
[2023-06-25] MEDS: GABAPENTIN 300 MG CAP PO SCH (21:42)
[2023-06-25] MEDS: CALCIUM 600MG + VIT D 400 IU TAB PO SCH (21:42)
[2023-06-25] MEDS: APIXABAN 5 MG TABLET PO SCH (21:43)
[2023-06-25] MEDS: LANTUS PER UNIT CHARGE SQ SCH (21:50)
[2023-06-26 06:49] LABS: Hemoglobin 8.4 g/dl (14.0-18.0); Mean Corpuscular Hemoglobin 33.2 pg (25.0-34.0); Mean Corpuscular Hgb Conc 33.6 g/dL (32.0-36.0); Mean Corpuscular Volume 98.8 fL (80.0-100.0); Mean Platelet Volume 11.7 fL (9.4-12.4); Nucleated RBC # (auto) 0.04 K/uL (0.00-0.12); Nucleated RBC % (auto) 1.7 %; Platelet Count 122 K/uL (130-400); RDW Coefficient of Variation 16.1 % (11.5-14.5); RDW Standard Deviation 56.9 fL (36.4-46.3); Red Blood Count 2.53 M/uL (4.70-6.10); White Blood Count 2.37 K/ul (4.8-10.8)
[2023-06-26 07:03] LABS: Albumin Globulin Ratio 1.6 (0.9-2); Albumin Level 3.3 gm/dl (3.4-5.0); BUN Creatinine Ratio 15.7 (10-20); Bilirubin,Total 0.6 mg/dl (0.2-1.0); Calcium 7.7 mg/dl (8.6-10.3); Est GFR (African American) 55.8 ml/min; Est GFR (Non-African American) 48.1 ml/min; Globulin 2.1 gm/dl (2.5-4.0); Magnesium 1.6 mg/dl (1.7-2.4); Total Protein 5.4 gm/dl (6.0-8.3)
[2023-06-26 07:16] LABS: Basophils # (auto) 0.02 K/uL (0.00-0.20); Basophils % (auto) 0.8 %; Eosinophils # (auto) 0.04 K/uL (0.00-0.50); Eosinophils % (auto) 1.7 %; Immature Granulocytes # (auto) 0.06 K/uL (0.01-0.20); Immature Granulocytes % (auto) 2.5 %; Lymphocytes # (auto) 0.61 K/uL (1.20-3.40); Lymphocytes % (auto) 25.7 %; Monocytes # (auto) 0.18 K/uL (0.11-0.59); Monocytes % (auto) 7.6 %; Neutrophils # (auto) 1.46 K/uL (1.40-6.50); Neutrophils % (auto) 61.7 %; Ovalocytes 1+; Polychromasia 1+; Tear Drop Cells 1+
[2023-06-26 07:29] LABS: Troponin I High Sensitivity 595.5 pg/ml (0-20)
[2023-06-26] MEDS ORDERED: MAGNESIUM SULFATE / D5W 1 GM/100 ML BAG IV ONE (08:04)
[2023-06-26] MEDS: INSULIN ASPART PER UNIT CHARGE SC SCH ×4 (08:22→20:46)
[2023-06-26] MEDS: ATORVASTATIN 40 MG TAB PO SCH (08:23)
[2023-06-26] MEDS: GABAPENTIN 300 MG CAP PO SCH ×2 (08:23→20:27)
[2023-06-26] MEDS: PANTOprazole 40 MG TAB PO SCH (08:24)
[2023-06-26] MEDS: APIXABAN 5 MG TABLET PO SCH ×2 (08:24→20:27)
[2023-06-26] MEDS: POTASSIUM CHLORIDE CRTAB 20 MEQ TABCR PO SCH ×2 (08:24→20:27)
[2023-06-26] MEDS: METOPROLOL SUCC 50MG EXT REL TAB PO SCH ×2 (08:24→20:27)
[2023-06-26] MEDS: CYANOCOBALAMIN (B-12) 500 MCG TABLET PO SCH (08:24)
[2023-06-26] MEDS: CALCIUM 600MG + VIT D 400 IU TAB PO SCH ×2 (08:24→20:27)
--- NOTE | 2023-06-26 12:12 | Cardiology Progress Note ---
Date of Service June 26, 2023 Assessment & Plan (1) Paroxysmal atrial fibrillation with RVR: (2) Ischemic cardiomyopathy: (3) Elevated troponin: (4) Tachy-noman syndrome: (5) Multiple myeloma: (6) Anemia: Plan 78 year old male admitted with acute on chronic multifactorial shortness of breath secondary to atrial fibrillation with rapid ventricular response with demand ischemia, chronic ischemic heart disease, emphysema, interstitial lung disease, anemia in the setting of multiple myeloma, and chronic heart failure with reduced ejection fraction. Continue medical management. Titrate metoprolol to 75 mg in the a.m., 50 mg in the p.m. Dose additional furosemide 20 mg today. Consider addition of oral furosemide 3 days/week at discharge. Addition/titration of evidence-based heart failure therapy limited by chronic borderline resting hypotension with history of orthostatic hypotension and near syncope. Reassess hemoglobin in AM. Consider transfusion of packed red blood cells prior to discharge. Amiodarone ineffective as rhythm control strategy in the past. Continue oral anticoagulation with Eliquis. Admission and Anticipated Discharge Date Admission Date: June 25, 2023 Subjective 78-year-old male admitted with multifactorial shortness of breath secondary to emphysema, interstitial lung disease, anemia in the setting of multiple myeloma, chronic heart failure with reduced ejection fraction, rapid atrial fibrillation in the setting of chronic coronary disease. Voices frustration regarding exercise intolerance and chronic dyspnea on exertion. Review of Systems Review of Systems: All systems reviewed & are unremarkable except as noted in Subjective Physical Exam Constitutional: + ill appearing Respiratory: no respiratory distress, no labored breathing and no retractions Auscultation: + diminished lung sounds (Bases bilateral); no rales, no rhonchi and no wheezes Cardiovascular: Rate/Rhythm: + irregularly irregular Heart Sounds: normal S1 and normal S2; no murmur Vessels: radial pulses present; no JVD and no carotid bruit Extremities: no edema Gastrointestinal (Abdomen): Inspection/Auscultation: normal bowel sounds; abdomen not distended Percussion/Palpation: abdomen soft; abdomen nontender, no guarding and abdomen not rigid Neurologic: CN's II-XI intact bilaterally and moves all extremities; no focal motor deficits Results & Data Vital Signs (Past 12 Hours) Vital Signs Temp Pulse Pulse Resp BP Pulse Ox O2 Del Method 06/26/23 09:57 70 06/26/23 08:20 36.4 C L 85 16 113/60 95 Room Air 06/26/23 04:16 37.4 C 86 20 101/61 94 Room Air 06/26/23 00:26 85 Laboratory Results Cardiac Enzymes 06/25/23 06/25/23 06/25/23 Range/Units 11:49 11:49 15:07 AST 14 (13-39) U/L Troponin I High Sens 731.1 H* 708.7 H* (0-20) pg/ml B-Natriuretic Peptide 656 H (0-100) pg/ml 06/25/23 06/26/23 Range/Units 19:35 06:19 AST 9 L (13-39) U/L Troponin I High Sens 794.8 H* 595.5 H* D (0-20) pg/ml B-Natriuretic Peptide (0-100) pg/ml Coagulation 06/25/23 06/25/23 Range/Units 11:49 11:49 PT 11.6 (9.0-12.0) Seconds APTT 25.8 (21.0-31.0) Seconds B-Natriuretic Peptide 656 H (0-100) pg/ml CBC 06/25/23 06/26/23 Range/Units 11:49 06:19 WBC 2.37 L (4.8-10.8) K/ul RBC 2.53 L (4.70-6.10) M/uL Hgb 8.4 L (14.0-18.0) g/dl Hct 25.0 L (42.0-52.0) % Plt Count 122 L (130-400) K/uL Neut # (Auto) 2.01 1.46 (1.40-6.50) K/uL Lymph # (Auto) 0.48 L 0.61 L (1.20-3.40) K/uL [place] # (Auto) 0.25 0.18 (0.11-0.59) K/uL Eos # (Auto) 0.06 0.04 (0.00-0.50) K/uL Baso # (Auto) 0.01 0.02 (0.00-0.20) K/uL Comprehensive Metabolic Panel 06/25/23 06/26/23 Range/Units 11:49 06:19 Sodium 139 140 (136-145) mmol/L Potassium 4.1 4.0 (3.5-5.1) mmol/L Chloride 108 H 110 H (98-107) mmol/L Carbon Dioxide 20 L 23 (21-32) mmol/L BUN 24 H 22 (6-23) mg/dl Creatinine 1.46 H 1.40 (0.6-1.4) mg/dl Glucose 227 H 149 H (70-99(Fasting)) mg/dl Calcium 8.2 L 7.7 L (8.6-10.3) mg/dl AST 14 9 L (13-39) U/L ALT 26 18 (7-52) U/L Alkaline Phosphatase 44 36 (34-104) U/L Total Protein 6.6 5.4 L (6.0-8.3) gm/dl Albumin 4.1 3.3 L (3.4-5.0) gm/dl Intake and Output 06/25/23 06/26/23 06/26/23 22:59 06:59 14:59 Intake Total 740 / 890 150 / 890 100 / 100 Output Total 1050 / 1050 Balance -310 / -160 150 / -160 100 / 100 Intake: IV 100 / 100 Magnesium Sulfate / D5w 1 gm In 100 / 100 100 ml @ 50 mls/hr IV ONE ONE Rx#:[id number] Oral 740 / 890 150 / 890 Output: Urine 1050 / 1050 Other: # Unmeasured Voids 1 Weight 72.6 kg 75.2 kg Weight Measurement Method Standing Scale Built in [facility]
[2023-06-26] MEDS ORDERED: FUROSEMIDE INJ 20 MG/2 ML VIAL IV ONE (12:25)
--- NOTE | 2023-06-26 16:20 | Hospitalist Progress Note ---
Date of Service June 26, 2023 Assessment & Plan (1) Atrial fibrillation with rapid ventricular response: (2) Pacemaker: (3) CAD (coronary artery disease): (4) HLD (hyperlipidemia): (5) HTN (hypertension): (6) Multiple myeloma: (7) Type 2 diabetes mellitus: (8) Diabetic peripheral neuropathy associated with type 2 diabetes mellitus: Plan Dyspnea on exertion Likely multifactorial secondary to A-fib RVR, demand ischemia, chronic interstitial lung disease, emphysema and anemia A-fib RVR --Chest CT:Prominent emphysema and interstitial fibrotic disease. No evidence of pneumonia. Cardiomegaly with pacemaker placement. --ECHO: EF 35 to 40%. Large wall motion abnormality with hypokinesis of the basal inferoseptum, inferior wall at the basal and mid levels, basal level of inferolateral wall unchanged from prior study. Left atrium is moderately dilated. Moderate mitral regurgitation. H/O orthostatic hypotension, near syncope, amiodarone ineffective Metoprolol succinate dose increased to 75 mg every morning, 50 mg every afternoon Also Digoxin Continue furosemide 20 mg daily for now, plan to discharge on 3 times per week We will consider transfusion if patient remains symptomatic Continue Eliquis for anticoagulation Appreciate cardiology input Monitor and replete electrolytes as needed ABDI Cr:1.4 today Monitor volume status Avoid nephrotoxic agents as able Monitor renal function Hypomagnesemia Replete electrolytes as needed Chronic troponin elevation Denies any chest pain Echo unchanged wall motion abnormality Chronic Interstitial lung disease Emphysema CT as above Saturating well on room air No wheezing on exam Will recommend follow-up with pulmonology as outpatient Left Foot Wound - Chronic, following with the wound clinic - pt reports some pain with walking and is wearing a boot, recently completed outpatient course of Augmentin for + klebsiella oxytoca and enterococcus faecalis on 04/27/23. - Pressure offloading with CAM boot - Foot X ray:No acute osseous abnormality. Fusion of the MTP joint. -- Wound culture pending Wound care nurse consulted No antibiotics for now CAD Ischemic cardiac disease SSS s/p pacemaker HTN, HLP Continue metoprolol, Lipitor 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 Currently undergoing chemotherapy with Darzalex , revlimid and decadron ---possible that regimen is increasing potential for afib to occur? Pt is not a candidate for high dose chemotherapy or stemm cell tranplant due to comorbid condition and lung issues. - Primary oncologist is Dr. Van - Cont dexamethasone 20 mg once per week on Wednesday - Revlimid 10 mg daily - Linzess for opiod induced constipation, prn bowel regimen ordered - Continue morphine IR 15 mg for pain, gabapentin 300 mg BID DM II Peripheral Neuropathy - Last A1C was 6.6 on 06/14/23 - Victoza 1.2 mg daily -Continue insulin per protocol Monitor BGs DVT Px: Eliquis CODE STATUS: DNR/DNI Admission and Anticipated Discharge Date Admission Date: June 25, 2023 Subjective Patient is seen and examined at bedside States feeling better today No dyspnea while at rest Denies any left foot wound pain Also denies any chest pain, dizziness, nausea, vomiting, abdominal pain No other complaints Review of Systems Review of Systems: All systems reviewed & are unremarkable except as noted in Subjective Physical Exam Physical Exam: Physical Exam: Vitals signs as noted above General Appearance:Moderately built and nourished, no apparent distress Head: normocephalic, Atraumatic Eyes: normal inspection, EOMI Neck: supple, Trachea midline Respiratory/Chest: Decreased breath sounds, CTA, No accessory muscle use Cardiovascular: Irregularly Irregular, No murmur Abdomen/GI:Soft, Non tender, Bowel sounds present Extremities/Musculoskeletal:normal inspection, no edema Neurologic/Psych:AAOX3, grossly no focal neurological deficits, +Small open plantar wound Skin: normal color, warm Results & Data Results & Data Vital Signs (Past 12 Hours) Vital Signs Temp Pulse Pulse Resp BP Pulse Ox O2 Del Method 06/26/23 15:10 71 06/26/23 12:00 36.5 C 88 18 124/68 96 Room Air 06/26/23 09:57 70 06/26/23 08:20 36.4 C L 85 16 113/60 95 Room Air 06/26/23 04:16 37.4 C 86 20 101/61 94 Room Air Laboratory Results Short CBC 06/26/23 Range/Units 06:19 WBC 2.37 L (4.8-10.8) K/ul Hgb 8.4 L (14.0-18.0) g/dl Hct 25.0 L (42.0-52.0) % Plt Count 122 L (130-400) K/uL BMP 06/26/23 06:19 Sodium 140 Potassium 4.0 Chloride 110 H Carbon Dioxide 23 BUN 22 Creatinine 1.40 Glucose 149 H Calcium 7.7 L Liver Function 06/26/23 Range/Units 06:19 Total Bilirubin 0.6 (0.2-1.0) mg/dl AST 9 L (13-39) U/L ALT 18 (7-52) U/L Alkaline Phosphatase 36 (34-104) U/L Albumin 3.3 L (3.4-5.0) gm/dl Urine 06/25/23 Range/Units 17:30 Urine Color Yellow Urine Appearance Clear (Clear) Urine pH 5.5 (4.5-7.5) Ur Specific [place] 1.015 (1.000-1.030) Urine Protein 1+ H (Negative) Urine Glucose (UA) 2+ H (Negative)
[2023-06-26 18:45] LABS: A calco-baum cmplx NotReported Not Detected (NotDetected); Bact fragilis Not Reported Not Detected (NotDetected); C auris Not Reported Not Detected (NotDetected); Calbicans Not Reported Not Detected (NotDetected); Candida glabrata Not Reported Not Detected (NotDetected); Candida krusei Not Reported Not Detected (NotDetected); Cneoformans/gatti Not Reported Not Detected (NotDetected); Cparapsilosis Not Reported Not Detected (NotDetected); Ctropicalis Not Reported Not Detected (NotDetected); E cloacae compx Not Reported Not Detected (NotDetected); Efaecalis Not Reported Not Detected (NotDetected); Efaecium Not Reported Not Detected (NotDetected); Enterobacterales Not Reported Not Detected (NotDetected); Escherichia coli Not Reported Not Detected (NotDetected); H influenzae Not Reported Not Detected (NotDetected); K aerogenes Not Reported Not Detected (NotDetected); Koxytoca Not Reported Not Detected (NotDetected); Kpneumoniae grp Not Reported Not Detected (NotDetected); Lmonocyt Not Reported Not Detected (NotDetected); N meningitidis Not Reported Not Detected (NotDetected); P aeruginosa Not Reported Not Detected (NotDetected); Proteus spp Not Reported Not Detected (NotDetected); Salmonella spp Not Reported Not Detected (NotDetected); Smarcescens Not Reported Not Detected (NotDetected); Staph lugdunensis Not Reported Not Detected (NotDetected); Staph spp. Not Reported DETECTED (NotDetected); Staphaureus Not Reported Not Detected (NotDetected); Staphepi Not Reported Not Detected (NotDetected); Stenmaltophilia Not Reported Not Detected (NotDetected); Strep agal(GrpB) Not Reported Not Detected (NotDetected); Strep pneum Not Reported Not Detected (NotDetected); Strep pyog (GrpA) Not Reported Not Detected (NotDetected); Strep spp Not Reported Not Detected (NotDetected)
[2023-06-26 18:49] LABS: Staphylococcus spp. DETECTED (NotDetected)
[2023-06-26] MEDS: LENALIDOMIDE PO SCH (20:26)
[2023-06-26] MEDS: MIRTAZAPINE TAB 15 MG TAB PO SCH (20:27)
[2023-06-26] MEDS: cefTRIAXone SODIUM 2,000 MG in DEXTROSE 5% 50 ML IV SCH (20:29)
[2023-06-26] MEDS: LANTUS PER UNIT CHARGE SQ SCH (20:46)
[2023-06-27 07:33] LABS: Hematocrit (blood only) 27.7 % (42.0-52.0); Mean Corpuscular Hemoglobin 32.3 pg (25.0-34.0); Mean Corpuscular Hgb Conc 32.5 g/dL (32.0-36.0); Mean Corpuscular Volume 99.3 fL (80.0-100.0); Mean Platelet Volume 11.7 fL (9.4-12.4); Nucleated RBC # (auto) 0.02 K/uL (0.00-0.12); Nucleated RBC % (auto) 0.7 %; Platelet Count 126 K/uL (130-400); RDW Coefficient of Variation 15.7 % (11.5-14.5); RDW Standard Deviation 55.8 fL (36.4-46.3); Red Blood Count 2.79 M/uL (4.70-6.10); White Blood Count 3.02 K/ul (4.8-10.8)
[2023-06-27 07:55] LABS: BUN Creatinine Ratio 16.5 (10-20); Calcium 8.4 mg/dl (8.6-10.3); Creatinine Clr Calc Pharmacy 46.4 ml/min; Est GFR (African American) 59.3 ml/min; Est GFR (Non-African American) 51.2 ml/min; Magnesium 1.8 mg/dl (1.7-2.4)
[2023-06-27] MEDS: CYANOCOBALAMIN (B-12) 500 MCG TABLET PO SCH (08:17)
[2023-06-27] MEDS: PANTOprazole 40 MG TAB PO SCH (08:17)
[2023-06-27] MEDS: METOPROLOL SUCC 25MG EXT REL TAB PO SCH ×2 (08:17→11:41)
[2023-06-27] MEDS: POTASSIUM CHLORIDE CRTAB 20 MEQ TABCR PO SCH ×2 (08:17→21:16)
[2023-06-27] MEDS: ATORVASTATIN 40 MG TAB PO SCH (08:18)
[2023-06-27] MEDS: CALCIUM 600MG + VIT D 400 IU TAB PO SCH ×2 (08:18→21:13)
[2023-06-27] MEDS: GABAPENTIN 300 MG CAP PO SCH ×2 (08:18→21:13)
[2023-06-27] MEDS: APIXABAN 5 MG TABLET PO SCH ×2 (08:18→21:10)
[2023-06-27] MEDS: INSULIN ASPART PER UNIT CHARGE SC SCH ×4 (08:19→21:11)
[2023-06-27] MEDS: LENALIDOMIDE PO SCH (08:19)
[2023-06-27] MEDS ORDERED: FUROSEMIDE 40 MG/4 ML VIAL IV ONE (11:14)
--- NOTE | 2023-06-27 11:19 | Cardiology Progress Note ---
Date of Service June 27, 2023 Assessment & Plan (1) Paroxysmal atrial fibrillation with RVR: (2) Chronic heart failure with reduced ejection fraction and diastolic dysfunction: (3) Ischemic cardiomyopathy: (4) Elevated troponin: (5) Tachy-noman syndrome: (6) Multiple myeloma: (7) Anemia: Plan 78 year old male admitted with acute on chronic multifactorial shortness of breath secondary to atrial fibrillation with rapid ventricular response with demand ischemia, chronic ischemic heart disease, emphysema, interstitial lung disease, anemia in the setting of multiple myeloma, and chronic heart failure with reduced ejection fraction. Continue medical management. Metoprolol titrated to to 75 mg in the a.m., 50 mg in the p.m. yesterday, 06/26/2023. We will give additional 40 mg IV furosemide today. Consider addition of oral furosemide 3 days/week at discharge. Additional/titration of evidence-based heart failure therapy limited by chronic borderline resting hypotension with history of orthostatic hypotension and near syncope. Reassess hemoglobin in AM. Maintain hemoglobin greater than 8.0. Amiodarone ineffective as rhythm control strategy in the past. Continue oral anticoagulation with Eliquis. Admission and Anticipated Discharge Date Admission Date: June 25, 2023 Subjective Patient seen and examined at the bedside. Feeling better today. Reports subjective diuresis yesterday, however, output was not accurately recorded. No dyspnea at rest. He did not receive a.m. dose of metoprolol due to systolic blood pressure in the 90s. No lightheadedness or dizziness. Telemetry reveals atrial fibrillation with adequate rate control. Heart rate typically running in the 80s. Denies orthopnea, PND, or edema. Voices frustration regarding his overall medical status. Questioning his long-term prognosis. Review of Systems Review of Systems: All systems reviewed & are unremarkable except as noted in Subjective Physical Exam Constitutional: well nourished; no acute distress Respiratory: no respiratory distress, no labored breathing and no retractions Auscultation: + diminished lung sounds (Bases bilateral); no rales, no rhonchi and no wheezes Cardiovascular: Rate/Rhythm: + irregularly irregular Heart Sounds: normal S1 and normal S2; no murmur Vessels: radial pulses present; no JVD and no carotid bruit Extremities: no edema Gastrointestinal (Abdomen): Inspection/Auscultation: normal bowel sounds; abdomen not distended Percussion/Palpation: abdomen soft; abdomen nontender, no guarding and abdomen not rigid Neurologic: CN's II-XI intact bilaterally and moves all extremities; no focal motor deficits Results & Data Vital Signs (Past 12 Hours) Vital Signs Temp Pulse Resp BP Pulse Ox O2 Del Method 06/27/23 11:06 36.7 C 16 115/67 97 Room Air 06/27/23 07:25 37.1 C 82 16 98/60 L 96 Room Air 06/27/23 04:30 36.5 C 74 17 100/67 96 Room Air Laboratory Results CBC 06/27/23 Range/Units 06:49 WBC 3.02 L (4.8-10.8) K/ul RBC 2.79 L (4.70-6.10) M/uL Hgb 9.0 L (14.0-18.0) g/dl Hct 27.7 L (42.0-52.0) % Plt Count 126 L (130-400) K/uL Comprehensive Metabolic Panel 06/27/23 Range/Units 06:49 Sodium 139 (136-145) mmol/L Potassium 4.0 (3.5-5.1) mmol/L Chloride 105 (98-107) mmol/L Carbon Dioxide 26 (21-32) mmol/L BUN 22 (6-23) mg/dl Creatinine 1.33 (0.6-1.4) mg/dl Glucose 145 H (70-99(Fasting)) mg/dl Calcium 8.4 L (8.6-10.3) mg/dl Intake and Output 06/26/23 06/27/23 06/27/23 22:59 06:59 14:59 Intake Total 520 / 1370 Output Total 700 / 1050 Balance -180 / 320 Intake: IV 70 / 170 cefTRIAXone SODIUM 2,000 mg In 70 / 70 Dextrose 5% 50 ml @ 100 mls/hr IV Q24H [facility] Rx#:[id number] Oral 450 / 1200 Output: Urine 700 / 1050 Other: Weight 70.6 kg Weight Measurement Method Built in [facility]
--- NOTE | 2023-06-27 16:02 | Hospitalist Progress Note ---
Date of Service June 27, 2023 Assessment & Plan (1) Atrial fibrillation with rapid ventricular response: (2) Pacemaker: (3) CAD (coronary artery disease): (4) HLD (hyperlipidemia): (5) HTN (hypertension): (6) Multiple myeloma: (7) Type 2 diabetes mellitus: (8) Diabetic peripheral neuropathy associated with type 2 diabetes mellitus: Plan Dyspnea on exertion Likely multifactorial secondary to A-fib RVR, demand ischemia, chronic interstitial lung disease, emphysema and anemia A-fib RVR --Chest CT:Prominent emphysema and interstitial fibrotic disease. No evidence of pneumonia. Cardiomegaly with pacemaker placement. --ECHO: EF 35 to 40%. Large wall motion abnormality with hypokinesis of the basal inferoseptum, inferior wall at the basal and mid levels, basal level of inferolateral wall unchanged from prior study. Left atrium is moderately dilated. Moderate mitral regurgitation. H/O orthostatic hypotension, near syncope, amiodarone ineffective Metoprolol succinate dose increased to 75 mg every morning, 50 mg every afternoon Also on Digoxin Continue furosemide per cardiology We will consider transfusion if patient remains symptomatic Continue Eliquis for anticoagulation Appreciate cardiology input Monitor and replete electrolytes as needed Continue diuresis ABDI Cr:1.3 today Monitor volume status Avoid nephrotoxic agents as able Monitor renal function Left Foot Wound - Chronic, following with the wound clinic - pt reports some pain with walking and is wearing a boot, recently completed outpatient course of Augmentin for + klebsiella oxytoca and enterococcus faecalis on 04/27/23. - Pressure offloading with CAM boot - Foot X ray:No acute osseous abnormality. Fusion of the MTP joint. -- Wound culture growing gram-negative bacilli --Blood cultures 10/21: Coagulase-negative staph--likely contaminant Wound care nurse consulted Empirically started on IV Rocephin Hypomagnesemia Replete electrolytes as needed Chronic troponin elevation Denies any chest pain Echo unchanged wall motion abnormality Chronic Interstitial lung disease Emphysema CT as above Saturating well on room air No wheezing on exam Will recommend follow-up with pulmonology as outpatient CAD Ischemic cardiac disease SSS s/p pacemaker HTN, HLP Continue metoprolol, Lipitor 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 Currently undergoing chemotherapy with Darzalex , revlimid and decadron ---possible that regimen is increasing potential for afib to occur? Pt is not a candidate for high dose chemotherapy or stemm cell tranplant due to comorbid condition and lung issues. - Primary oncologist is Dr. Van - Cont dexamethasone 20 mg once per week on Wednesday - Revlimid 10 mg daily - Linzess for opiod induced constipation, prn bowel regimen ordered - Continue morphine IR 15 mg for pain, gabapentin 300 mg BID DM II Peripheral Neuropathy - Last A1C was 6.6 on 06/14/23 - Victoza 1.2 mg daily -Continue insulin per protocol Monitor BGs DVT Px: Eliquis CODE STATUS: DNR/DNI Admission and Anticipated Discharge Date Admission Date: June 25, 2023 Subjective Patient is seen and examined at bedside Offers no new complaints Denies any dyspnea today Also denies any chest pain, dizziness, nausea, vomiting, abdominal pain Wound cultures growing gram-negative bacilli Review of Systems Review of Systems: All systems reviewed & are unremarkable except as noted in Subjective Physical Exam Physical Exam: Physical Exam: Vitals signs as noted above General Appearance:Moderately built and nourished, no apparent distress Head: normocephalic, Atraumatic Eyes: normal inspection, EOMI Neck: supple, Trachea midline Respiratory/Chest: Decreased breath sounds, CTA, No accessory muscle use Cardiovascular: Irregularly Irregular, No murmur Abdomen/GI:Soft, Non tender, Bowel sounds present Extremities/Musculoskeletal:normal inspection, no edema Neurologic/Psych:AAOX3, grossly no focal neurological deficits, +Small open plantar wound Skin: normal color, warm Results & Data Results & Data Vital Signs (Past 12 Hours) Vital Signs Temp Pulse Resp BP Pulse Ox Pulse Ox Pulse Ox 06/27/23 12:58 97 95 06/27/23 11:06 36.7 C 16 115/67 97 06/27/23 07:25 37.1 C 82 16 98/60 L 96 06/27/23 04:30 36.5 C 74 17 100/67 96 O2 Del Method O2 Flow Rate O2 Flow Rate 06/27/23 12:58 0 0 06/27/23 11:06 Room Air 06/27/23 07:25 Room Air 06/27/23 04:30 Room Air Laboratory Results Short CBC 06/27/23 Range/Units 06:49 WBC 3.02 L (4.8-10.8) K/ul Hgb 9.0 L (14.0-18.0) g/dl Hct 27.7 L (42.0-52.0) % Plt Count 126 L (130-400) K/uL BMP 06/27/23 06:49 Sodium 139 Potassium 4.0 Chloride 105 Carbon Dioxide 26 BUN 22 Creatinine 1.33 Glucose 145 H Calcium 8.4 L
[2023-06-27] MEDS: DIGOXIN 0.125 MG TAB PO SCH (16:32)
[2023-06-27] MEDS: cefTRIAXone SODIUM 2,000 MG in DEXTROSE 5% 50 ML IV SCH (19:34)
[2023-06-27] MEDS: LANTUS PER UNIT CHARGE SQ SCH (21:11)
[2023-06-27] MEDS: MIRTAZAPINE TAB 15 MG TAB PO SCH (21:14)
[2023-06-27] MEDS: METOPROLOL SUCC 50MG EXT REL TAB PO SCH (21:24)
[2023-06-28 07:03] LABS: Hematocrit (blood only) 28.2 % (42.0-52.0); Hemoglobin 9.6 g/dl (14.0-18.0); Mean Corpuscular Hemoglobin 32.7 pg (25.0-34.0); Mean Corpuscular Volume 95.9 fL (80.0-100.0); Mean Platelet Volume 11.5 fL (9.4-12.4); Platelet Count 130 K/uL (130-400); RDW Coefficient of Variation 15.1 % (11.5-14.5); RDW Standard Deviation 52.2 fL (36.4-46.3); Red Blood Count 2.94 M/uL (4.70-6.10)
[2023-06-28 07:11] LABS: BUN Creatinine Ratio 20.8 (10-20); Calcium 8.3 mg/dl (8.6-10.3); Creatinine Clr Calc Pharmacy 41.1 ml/min; Est GFR (African American) 49.7 ml/min; Est GFR (Non-African American) 42.9 ml/min; Magnesium 1.7 mg/dl (1.7-2.4); Potassium 3.9 mmol/L (3.5-5.1)
[2023-06-28] MEDS: INSULIN ASPART PER UNIT CHARGE SC SCH ×4 (08:06→20:55)
[2023-06-28] MEDS: APIXABAN 5 MG TABLET PO SCH ×2 (08:19→20:53)
[2023-06-28] MEDS: ATORVASTATIN 40 MG TAB PO SCH (08:19)
[2023-06-28] MEDS: POTASSIUM CHLORIDE CRTAB 20 MEQ TABCR PO SCH ×2 (08:19→20:51)
[2023-06-28] MEDS: CALCIUM 600MG + VIT D 400 IU TAB PO SCH ×2 (08:19→20:53)
[2023-06-28] MEDS: PANTOprazole 40 MG TAB PO SCH (08:19)
[2023-06-28] MEDS: GABAPENTIN 300 MG CAP PO SCH ×2 (08:19→20:53)
[2023-06-28] MEDS: CYANOCOBALAMIN (B-12) 500 MCG TABLET PO SCH (08:19)
[2023-06-28] MEDS: LENALIDOMIDE PO SCH (08:20)
[2023-06-28] MEDS: METOPROLOL SUCC 25MG EXT REL TAB PO SCH ×2 (09:27→20:52)
[2023-06-28] MEDS ORDERED: CEFEPIME 1,000 MG in SYRINGE 0 ML IV SCH (09:30)
[2023-06-28] MEDS: CEFEPIME 2,000 MG in SYRINGE 0 ML IV SCH ×2 (09:46→20:54)
--- NOTE | 2023-06-28 12:00 | Cardiology Progress Note ---
Date of Service June 28, 2023 Assessment & Plan (1) Paroxysmal atrial fibrillation with RVR: (2) Chronic heart failure with reduced ejection fraction and diastolic dysfunction: (3) Ischemic cardiomyopathy: (4) Elevated troponin: (5) Tachy-noman syndrome: (6) Multiple myeloma: (7) Anemia: Plan 78 year old male admitted with acute on chronic multifactorial shortness of breath secondary to atrial fibrillation with rapid ventricular response with demand ischemia, chronic ischemic heart disease, emphysema, interstitial lung disease, anemia in the setting of multiple myeloma, and chronic heart failure with reduced ejection fraction. Continue medical management. Metoprolol titrated to to 75 mg in the a.m., 50 mg in the p.m. 06/26/2023. Initiate oral diuretic therapy, furosemide 40 mg daily on Wednesday, Wednesday, and Wednesday. Additional/titration of evidence-based heart failure therapy limited by chronic borderline resting hypotension with history of orthostatic hypotension and near syncope. Patient currently receiving chemotherapeutic treatment for multiple myeloma with Darzalex faspro and Revlimid. Both treatments are associated with peripheral edema. Volume status currently improved with addition of IV diuretic therapy during hospitalization. Reassess hemoglobin in AM. Maintain hemoglobin greater than 8.0. Amiodarone ineffective as rhythm control strategy in the past. Continue oral anticoagulation with Eliquis. Ambulate patient today assess gait stability and functional capacity. Possible discharge in 24 to 48 hours with close outpatient cardiology follow-up. Admission and Anticipated Discharge Date Admission Date: June 25, 2023 Subjective Patient seen and examined at the bedside. Feeling better today. Fluid balance negative 2.5 liters. Creatinine trending upward to 1.54. Telemetry reveals atrial fibrillation in the 70s. Metoprolol titrated to 75 mg in the morning, 50 mg in the evening. Blood pressure remains borderline hypotensive. Review of Systems Review of Systems: All systems reviewed & are unremarkable except as noted in Subjective Physical Exam Constitutional: well nourished and + ill appearing; no acute distress Respiratory: no respiratory distress, no labored breathing and no retractions Auscultation: + diminished lung sounds (Bases bilateral); no rales, no rhonchi and no wheezes Cardiovascular: Rate/Rhythm: + irregularly irregular Heart Sounds: normal S1 and normal S2; no murmur Vessels: radial pulses present; no JVD and no carotid bruit Extremities: no edema Gastrointestinal (Abdomen): Inspection/Auscultation: normal bowel sounds; abdomen not distended Percussion/Palpation: abdomen soft; abdomen nontender, no guarding and abdomen not rigid Neurologic: CN's II-XI intact bilaterally and moves all extremities; no focal motor deficits Results & Data Vital Signs (Past 12 Hours) Vital Signs Temp Pulse Pulse Resp BP Pulse Ox O2 Del Method 06/28/23 11:10 36.7 C 84 14 106/65 97 Room Air 06/28/23 07:20 83 06/28/23 07:09 36.6 C 81 18 102/61 97 Room Air 06/28/23 03:17 36.7 C 85 16 106/65 95 Room Air 06/28/23 00:06 81 Laboratory Results CBC 06/28/23 Range/Units 05:54 WBC 4.50 L (4.8-10.8) K/ul RBC 2.94 L (4.70-6.10) M/uL Hgb 9.6 L (14.0-18.0) g/dl Hct 28.2 L (42.0-52.0) % Plt Count 130 (130-400) K/uL Comprehensive Metabolic Panel 06/28/23 Range/Units 05:54 Sodium 137 (136-145) mmol/L Potassium 3.9 (3.5-5.1) mmol/L Chloride 105 (98-107) mmol/L Carbon Dioxide 23 (21-32) mmol/L BUN 32 H (6-23) mg/dl Creatinine 1.54 H (0.6-1.4) mg/dl Glucose 154 H (70-99(Fasting)) mg/dl Calcium 8.3 L (8.6-10.3) mg/dl Intake and Output 06/27/23 06/28/23 06/28/23 22:59 06:59 14:59 Intake Total 190 / 310 120 / 310 Output Total 1375 / 2800 900 / 2800 600 / 600 Balance -1185 / -2490 -780 / -2490 -600 / -600 Intake: IV 70 / 70 cefTRIAXone SODIUM 2,000 mg In 70 / 70 Dextrose 5% 50 ml @ 100 mls/hr IV Q24H [facility] Rx#:[id number] Oral 120 / 240 120 / 240 Output: Urine 1375 / 2800 900 / 2800 600 / 600 Other: Weight 72.3 kg Weight Measurement Method Built in [facility]
--- NOTE | 2023-06-28 16:26 | Hospitalist Progress Note ---
Date of Service June 28, 2023 Assessment & Plan (1) Atrial fibrillation with rapid ventricular response: (2) Pacemaker: (3) CAD (coronary artery disease): (4) HLD (hyperlipidemia): (5) HTN (hypertension): (6) Multiple myeloma: (7) Type 2 diabetes mellitus: (8) Diabetic peripheral neuropathy associated with type 2 diabetes mellitus: Plan Dyspnea on exertion Likely multifactorial secondary to A-fib RVR, demand ischemia, chronic interstitial lung disease, emphysema and anemia A-fib RVR Chronic heart failure with reduced ejection fraction and diastolic dysfunction --Chest CT:Prominent emphysema and interstitial fibrotic disease. No evidence of pneumonia. Cardiomegaly with pacemaker placement. --ECHO: EF 35 to 40%. Large wall motion abnormality with hypokinesis of the basal inferoseptum, inferior wall at the basal and mid levels, basal level of inferolateral wall unchanged from prior study. Left atrium is moderately dilated. Moderate mitral regurgitation. H/O orthostatic hypotension, near syncope, amiodarone ineffective Metoprolol succinate dose increased to 75 mg every morning, 50 mg every afternoon Also on Digoxin Continue furosemide per cardiology Continue Eliquis for anticoagulation Appreciate cardiology input Monitor and replete electrolytes as needed Continue diuresis per cardiology Diuretics held today given rising creatinine ABDI Cr:1.5 today Monitor volume status Avoid nephrotoxic agents as able Monitor renal function Left Foot Wound infection-POA - Chronic, following with the wound clinic - pt reports some pain with walking and is wearing a boot, recently completed outpatient course of Augmentin for + klebsiella oxytoca and enterococcus faecalis on 04/27/23. - Pressure offloading with CAM boot - Foot X ray:No acute osseous abnormality. Fusion of the MTP joint. -- Wound culture growing Klebsiella, Enterobacter --Blood cultures 10/21: Coagulase-negative staph--likely contaminant Repeat blood cultures no growth to date Wound care nurse consulted IV Rocephin>> changed to IV cefepime Will need follow-up with wound clinic upon discharge Hypomagnesemia Replete electrolytes as needed Chronic troponin elevation Denies any chest pain Echo unchanged wall motion abnormality Chronic Interstitial lung disease Emphysema CT as above Saturating well on room air No wheezing on exam Will recommend follow-up with pulmonology as outpatient CAD Ischemic cardiac disease SSS s/p pacemaker HTN, HLP Continue metoprolol, Lipitor 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 Currently undergoing chemotherapy with Darzalex , revlimid and decadron ---possible that regimen is increasing potential for afib to occur? Pt is not a candidate for high dose chemotherapy or stemm cell tranplant due to comorbid condition and lung issues. - Primary oncologist is Dr. Van - Cont dexamethasone 20 mg once per week on Wednesday - Revlimid 10 mg daily - Linzess for opiod induced constipation, prn bowel regimen ordered - Continue morphine IR 15 mg for pain, gabapentin 300 mg BID DM II Peripheral Neuropathy - Last A1C was 6.6 on 06/14/23 - Victoza 1.2 mg daily -Continue insulin per protocol Monitor BGs DVT Px: Eliquis CODE STATUS: DNR/DNI Admission and Anticipated Discharge Date Admission Date: June 25, 2023 Subjective Patient is seen and examined at bedside Subjectively feels well No dyspnea today Updated patient's over the phone Denies any chest pain, dizziness, nausea, vomiting, abdominal pain Review of Systems Review of Systems: All systems reviewed & are unremarkable except as noted in Subjective Physical Exam Physical Exam: Physical Exam: Vitals signs as noted above General Appearance:Moderately built and nourished, no apparent distress Head: normocephalic, Atraumatic Eyes: normal inspection, EOMI Neck: supple, Trachea midline Respiratory/Chest: Decreased breath sounds, CTA, No accessory muscle use Cardiovascular: Irregularly Irregular, No murmur Abdomen/GI:Soft, Non tender, Bowel sounds present Extremities/Musculoskeletal:normal inspection, no edema Neurologic/Psych:AAOX3, grossly no focal neurological deficits, +Small open plantar wound Skin: normal color, warm Results & Data Results & Data Vital Signs (Past 12 Hours) Vital Signs Temp Pulse Pulse Resp BP Pulse Ox O2 Del Method 06/28/23 15:32 36.8 C 71 16 116/67 97 Room Air 06/28/23 11:10 36.7 C 84 14 106/65 97 Room Air 06/28/23 07:20 83 06/28/23 07:09 36.6 C 81 18 102/61 97 Room Air Laboratory Results Short CBC 06/28/23 Range/Units 05:54 WBC 4.50 L (4.8-10.8) K/ul Hgb 9.6 L (14.0-18.0) g/dl Hct 28.2 L (42.0-52.0) % Plt Count 130 (130-400) K/uL BMP 06/28/23 05:54 Sodium 137 Potassium 3.9 Chloride 105 Carbon Dioxide 23 BUN 32 H Creatinine 1.54 H Glucose 154 H Calcium 8.3 L
[2023-06-28] MEDS ORDERED: PHARMACY GLYCEMIC MGMT CONSULT PRN (16:41)
[2023-06-28] MEDS: MIRTAZAPINE TAB 15 MG TAB PO SCH (20:53)
[2023-06-28] MEDS: LANTUS PER UNIT CHARGE SQ SCH (20:55)
[2023-06-28] MEDS: METOPROLOL SUCC 50MG EXT REL TAB PO SCH (21:00)
[2023-06-29 07:11] LABS: BUN Creatinine Ratio 19.6 (10-20); Calcium 7.9 mg/dl (8.6-10.3); Creatinine Clr Calc Pharmacy 44.8 ml/min; Est GFR (African American) 56.8 ml/min; Magnesium 1.7 mg/dl (1.7-2.4); Potassium 4.2 mmol/L (3.5-5.1)
[2023-06-29] MEDS: METOPROLOL SUCC 50MG EXT REL TAB PO SCH ×2 (08:57→20:15)
[2023-06-29] MEDS: CEFEPIME 2,000 MG in SYRINGE 0 ML IV SCH ×2 (08:57→20:16)
[2023-06-29] MEDS: GABAPENTIN 300 MG CAP PO SCH ×2 (08:58→20:15)
[2023-06-29] MEDS: METOPROLOL SUCC 25MG EXT REL TAB PO SCH (08:59)
[2023-06-29] MEDS: ATORVASTATIN 40 MG TAB PO SCH (08:59)
[2023-06-29] MEDS: PANTOprazole 40 MG TAB PO SCH (08:59)
[2023-06-29] MEDS: APIXABAN 5 MG TABLET PO SCH ×2 (08:59→20:16)
[2023-06-29] MEDS: CYANOCOBALAMIN (B-12) 500 MCG TABLET PO SCH (08:59)
[2023-06-29] MEDS: POTASSIUM CHLORIDE CRTAB 20 MEQ TABCR PO SCH ×2 (08:59→20:16)
[2023-06-29] MEDS: CALCIUM 600MG + VIT D 400 IU TAB PO SCH ×2 (08:59→20:15)
[2023-06-29] MEDS: LENALIDOMIDE PO SCH (09:00)
[2023-06-29] MEDS: INSULIN ASPART PER UNIT CHARGE SC SCH ×4 (09:00→20:16)
[2023-06-29] MEDS: POLYETHYLENE (MIRALAX) 17 GM PACK PO PRN (09:03)
--- NOTE | 2023-06-29 14:17 | Cardiology Progress Note ---
Date of Service June 29, 2023 Assessment & Plan (1) Paroxysmal atrial fibrillation with RVR: (2) Chronic heart failure with reduced ejection fraction and diastolic dysfunction: (3) Ischemic cardiomyopathy: (4) Elevated troponin: (5) Tachy-noman syndrome: (6) Multiple myeloma: (7) Anemia: Plan 78 year old male admitted with acute on chronic multifactorial shortness of breath secondary to atrial fibrillation with rapid ventricular response with demand ischemia, chronic ischemic heart disease, emphysema, interstitial lung disease, anemia in the setting of multiple myeloma, and chronic heart failure with reduced ejection fraction. Continue medical management. Metoprolol titrated to to 75 mg in the a.m., 50 mg in the p.m. 06/26/2023. Converted to sinus rhythm overnight. Creatinine trending downward. Initiate oral diuretic therapy, furosemide 40 mg daily on Wednesday, Wednesday, and Wednesday. Additional/titration of evidence-based heart failure therapy limited by chronic borderline resting hypotension with history of orthostatic hypotension and near syncope. Patient currently receiving chemotherapeutic treatment for multiple myeloma with Darzalex faspro and Revlimid. Both treatments are associated with peripheral edema. Volume status currently improved after treatment with IV diuretic therapy. Reassess hemoglobin in AM. Maintain hemoglobin greater than 8.0. Amiodarone ineffective as rhythm control strategy in the past. Continue oral anticoagulation with Eliquis. Increase activity as tolerated. Possible discharge in 24 hours with close outpatient cardiology follow-up. Admission and Anticipated Discharge Date Admission Date: June 25, 2023 Subjective Patient seen and examined at the bedside. Feeling better today. Feels he is not quite up to discharge however would like to stay 1 more night. Ambulating in room and hallway with out significant dyspnea. Converted to normal sinus rhythm overnight. Review of Systems Review of Systems: All systems reviewed & are unremarkable except as noted in Subjective Physical Exam Constitutional: well nourished and + ill appearing; no acute distress Respiratory: no respiratory distress, no labored breathing and no retractions Auscultation: + diminished lung sounds (Bases bilateral); no rales, no rhonchi and no wheezes Cardiovascular: Rate/Rhythm: regular rate and regular rhythm Heart Sounds: normal S1 and normal S2; no murmur Vessels: radial pulses present; no JVD and no carotid bruit Extremities: no edema Gastrointestinal (Abdomen): Inspection/Auscultation: normal bowel sounds; abdomen not distended Percussion/Palpation: abdomen soft; abdomen nontender, no guarding and abdomen not rigid Neurologic: CN's II-XI intact bilaterally and moves all extremities; no focal motor deficits Results & Data Vital Signs (Past 12 Hours) Vital Signs Temp Pulse Resp BP BP Pulse Ox O2 Del Method 06/29/23 11:33 36.6 C 66 16 105/61 97 Room Air 06/29/23 08:00 36.9 C 69 18 103/57 L 98 Room Air 06/29/23 03:05 36.9 C 69 18 99/62 L 99 Room Air Laboratory Results Comprehensive Metabolic Panel 06/29/23 Range/Units 06:02 Sodium 139 (136-145) mmol/L Potassium 4.2 (3.5-5.1) mmol/L Chloride 107 (98-107) mmol/L Carbon Dioxide 24 (21-32) mmol/L BUN 27 H (6-23) mg/dl Creatinine 1.38 (0.6-1.4) mg/dl Glucose 119 H (70-99(Fasting)) mg/dl Calcium 7.9 L (8.6-10.3) mg/dl Intake and Output 06/28/23 06/29/23 06/29/23 22:59 06:59 14:59 Intake Total 450 / 450 240 / 240 Output Total 480 / 1080 575 / 575 Balance -30 / -630 -335 / -335 Intake: Oral 450 / 450 240 / 240 Output: Urine 480 / 1080 575 / 575 Other: # Unmeasured Voids 2 Weight 70.6 kg Weight Measurement Method Standing Scale
--- NOTE | 2023-06-29 14:46 | Pharmacy Report ---
Pharmacy Glycemic Short Note 2 - Date of Service June 29, 2023 - Glycemic Short BSG Results (Last 24 hours): 06/28/23 06/28/23 06/29/23 16:35 20:09 06:02 Glucose 119 H POC Glucose 255 H 158 H 06/29/23 06/29/23 07:33 11:19 Glucose POC Glucose 127 H 273 H OUTPATIENT ANTIDIABETIC REGIMEN: * Novolog 15 units TIDM * Lantus 40 units QPM * Victoza 1.2mg daily * HbA1c 6.6% 06/14/23 (per H&P) ASSESSMENT: * Dev is a 78 YOM admitted for dyspnea on exertion with a history of T2DM on insulin (received 79 units of insulin yesterday, of which 45 were basal). Pharmacy has been consulted for glycemic management while inpatient. * Fasting BSG slightly elevated yesterday, basal insulin increased by ~10%, Fasting BSG today within goal range * Lunchtime and dinner BSGs elevated, carb ratio tightened yesterday and further tightened today. Goal is to mimic home mealtime dosage of 15 units. * Started on cefepime for a left foot wound infection, no additional stressors noted at this time. PLAN FOR INPATIENT GLYCEMIC CONTROL: * Hold outpatient oral diabetes medications * Basal insulin * Lantus 45 units QPM * Bolus insulin * NovoLog per scale ACHS or Q6hrs while NPO * Goal Range: Low 110 mg/dL - High 140 mg/dL * Correction Factor: 20 mg/dL/unit * Nutritional / Prandial insulin per carb ratio of 1 unit per 5 grams CHO consumed
[2023-06-29] MEDS: DIGOXIN 0.125 MG TAB PO SCH (16:48)
--- NOTE | 2023-06-29 17:24 | Hospitalist Progress Note ---
Date of Service June 29, 2023 Assessment & Plan (1) Atrial fibrillation with rapid ventricular response: (2) Pacemaker: (3) CAD (coronary artery disease): (4) HLD (hyperlipidemia): (5) HTN (hypertension): (6) Multiple myeloma: (7) Type 2 diabetes mellitus: (8) Diabetic peripheral neuropathy associated with type 2 diabetes mellitus: Plan Dyspnea on exertion Likely multifactorial secondary to A-fib RVR, demand ischemia, chronic interstitial lung disease, emphysema and anemia A-fib RVR Chronic heart failure with reduced ejection fraction and diastolic dysfunction --Chest CT:Prominent emphysema and interstitial fibrotic disease. No evidence of pneumonia. Cardiomegaly with pacemaker placement. --ECHO: EF 35 to 40%. Large wall motion abnormality with hypokinesis of the basal inferoseptum, inferior wall at the basal and mid levels, basal level of inferolateral wall unchanged from prior study. Left atrium is moderately dilated. Moderate mitral regurgitation. H/O orthostatic hypotension, near syncope, amiodarone ineffective Metoprolol succinate dose increased to 75 mg every morning, 50 mg every afternoon Also on Digoxin Continue furosemide per cardiology Continue Eliquis for anticoagulation Appreciate cardiology input Monitor and replete electrolytes as needed Continue diuresis per cardiology Increase activity Likely discharge in next 24 hours ABDI Cr:1.38 today Monitor volume status Avoid nephrotoxic agents as able Monitor renal function Left Foot Wound infection-POA - Chronic, following with the wound clinic - pt reports some pain with walking and is wearing a boot, recently completed outpatient course of Augmentin for + klebsiella oxytoca and enterococcus faecalis on 04/27/23. - Pressure offloading with CAM boot - Foot X ray:No acute osseous abnormality. Fusion of the MTP joint. -- Wound culture growing Klebsiella, Enterobacter --Blood cultures 10/21: Coagulase-negative staph--likely contaminant Repeat blood cultures no growth to date Wound care nurse consulted IV Rocephin>> changed to IV cefepime Will need follow-up with wound clinic upon discharge Transition to p.o. antibiotics tomorrow Hypomagnesemia Replete electrolytes as needed Chronic troponin elevation Denies any chest pain Echo unchanged wall motion abnormality Chronic Interstitial lung disease Emphysema CT as above Saturating well on room air No wheezing on exam Will recommend follow-up with pulmonology as outpatient CAD Ischemic cardiac disease SSS s/p pacemaker HTN, HLP Continue metoprolol, Lipitor 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 Currently undergoing chemotherapy with Darzalex , revlimid and decadron ---possible that regimen is increasing potential for afib to occur? Pt is not a candidate for high dose chemotherapy or stemm cell tranplant due to comorbid condition and lung issues. - Primary oncologist is Dr. Van - Cont dexamethasone 20 mg once per week on Wednesday - Revlimid 10 mg daily - Linzess for opiod induced constipation, prn bowel regimen ordered - Continue morphine IR 15 mg for pain, gabapentin 300 mg BID DM II Peripheral Neuropathy - Last A1C was 6.6 on 06/14/23 - Victoza 1.2 mg daily -Continue insulin per protocol Monitor BGs DVT Px: Eliquis CODE STATUS: DNR/DNI Admission and Anticipated Discharge Date Admission Date: June 25, 2023 Subjective Patient is seen and examined at bedside No new complaints Ambulated in hallway with no issues Dyspnea resolved Denies any chest pain, dizziness, nausea, vomiting, abdominal pain Review of Systems Review of Systems: All systems reviewed & are unremarkable except as noted in Subjective Physical Exam Physical Exam: Physical Exam: Vitals signs as noted above General Appearance:Moderately built and nourished, no apparent distress Head: normocephalic, Atraumatic Eyes: normal inspection, EOMI Neck: supple, Trachea midline Respiratory/Chest: Decreased breath sounds, CTA, No accessory muscle use Cardiovascular: Irregularly Irregular, No murmur Abdomen/GI:Soft, Non tender, Bowel sounds present Extremities/Musculoskeletal:normal inspection, no edema Neurologic/Psych:AAOX3, grossly no focal neurological deficits, +Small open plantar wound Skin: normal color, warm Results & Data Results & Data Vital Signs (Past 12 Hours) Vital Signs Temp Pulse Pulse Resp BP BP Pulse Ox 06/29/23 16:48 71 06/29/23 15:16 36.4 C L 64 16 116/61 96 06/29/23 11:33 36.6 C 66 16 105/61 97 06/29/23 08:00 36.9 C 69 18 103/57 L 98 O2 Del Method 06/29/23 16:48 06/29/23 15:16 Room Air 06/29/23 11:33 Room Air 06/29/23 08:00 Room Air Laboratory Results BMP 06/29/23 06:02 Sodium 139 Potassium 4.2 Chloride 107 Carbon Dioxide 24 BUN 27 H Creatinine 1.38 Glucose 119 H Calcium 7.9 L
[2023-06-29] MEDS: MIRTAZAPINE TAB 15 MG TAB PO SCH (20:15)
[2023-06-29] MEDS: LANTUS PER UNIT CHARGE SQ SCH (20:17)
[2023-06-30 06:58] LABS: Hematocrit (blood only) 25.7 % (42.0-52.0); Hemoglobin 8.3 g/dl (14.0-18.0); Mean Corpuscular Hgb Conc 32.3 g/dL (32.0-36.0); Mean Corpuscular Volume 99.2 fL (80.0-100.0); Mean Platelet Volume 12.4 fL (9.4-12.4); Platelet Count 106 K/uL (130-400); RDW Coefficient of Variation 15.3 % (11.5-14.5); RDW Standard Deviation 55.3 fL (36.4-46.3); Red Blood Count 2.59 M/uL (4.70-6.10); White Blood Count 3.55 K/ul (4.8-10.8)
[2023-06-30 07:08] LABS: BUN Creatinine Ratio 19.7 (10-20); Calcium 7.8 mg/dl (8.6-10.3); Creatinine Clr Calc Pharmacy 50.9 ml/min; Est GFR (African American) 62.7 ml/min; Est GFR (Non-African American) 54.1 ml/min; Potassium 4.3 mmol/L (3.5-5.1)
[2023-06-30] MEDS: PANTOprazole 40 MG TAB PO SCH (08:30)
[2023-06-30] MEDS: CALCIUM 600MG + VIT D 400 IU TAB PO SCH (08:30)
[2023-06-30] MEDS: APIXABAN 5 MG TABLET PO SCH (08:30)
[2023-06-30] MEDS: GABAPENTIN 300 MG CAP PO SCH (08:30)
[2023-06-30] MEDS: CYANOCOBALAMIN (B-12) 500 MCG TABLET PO SCH (08:30)
[2023-06-30] MEDS: POTASSIUM CHLORIDE CRTAB 20 MEQ TABCR PO SCH (08:30)
[2023-06-30] MEDS: ATORVASTATIN 40 MG TAB PO SCH (08:31)
[2023-06-30] MEDS: METOPROLOL SUCC 25MG EXT REL TAB PO SCH (08:31)
[2023-06-30] MEDS: LENALIDOMIDE PO SCH (08:31)
[2023-06-30] MEDS: INSULIN ASPART PER UNIT CHARGE SC SCH ×2 (08:39→12:40)
[2023-06-30] MEDS: POLYETHYLENE (MIRALAX) 17 GM PACK PO PRN (08:44)
[2023-06-30] MEDS: CEFEPIME 2,000 MG in SYRINGE 0 ML IV SCH (08:44)
[2023-06-30] MEDS ORDERED: FUROSEMIDE 40 MG TAB PO SCH (09:00)
--- NOTE | 2023-06-30 14:03 | Pharmacy Report ---
Pharmacy Glycemic Short Note 2 - Date of Service June 30, 2023 - Glycemic Short BSG Results (Last 24 hours): 06/29/23 06/29/23 06/30/23 16:03 19:56 05:31 Glucose 135 H POC Glucose 124 H 207 H 06/30/23 06/30/23 07:21 11:09 Glucose POC Glucose 157 H 290 H OUTPATIENT ANTIDIABETIC REGIMEN: * Novolog 15 units TIDM * Lantus 40 units QPM * Victoza 1.2mg daily * HbA1c 6.6% 06/14/23 (per H&P) ASSESSMENT: 06/30/23: * Dev received 88 units of insulin yesterday of which 45 were basal * Fasting BSG slightly elevated this AM, Lantus dose already above home dosage- but not getting home Victoza, will trial additional 10% of Lantus at bedtime * Prandial BSGs elevated, seems to correct adequately, Novolog CR tighted again today 06/29/23: * Dev is a 78 YOM admitted for dyspnea on exertion with a history of T2DM on insulin (received 79 units of insulin yesterday, of which 45 were basal). Pharmacy has been consulted for glycemic management while inpatient. * Fasting BSG slightly elevated yesterday, basal insulin increased by ~10%, Fasting BSG today within goal range * Lunchtime and dinner BSGs elevated, carb ratio tightened yesterday and further tightened today. Goal is to mimic home mealtime dosage of 15 units. * Started on cefepime for a left foot wound infection, no additional stressors noted at this time. PLAN FOR INPATIENT GLYCEMIC CONTROL: * Hold outpatient oral diabetes medications * Basal insulin * Lantus 50 units QPM * Bolus insulin * NovoLog per scale ACHS or Q6hrs while NPO * Goal Range: Low 110 mg/dL - High 140 mg/dL * Correction Factor: 20 mg/dL/unit * Nutritional / Prandial insulin per carb ratio of 1 unit per 4 grams CHO consumed
--- NOTE | 2023-06-30 14:04 | Cardiology Progress Note ---
Date of Service June 30, 2023 Assessment & Plan (1) Paroxysmal atrial fibrillation with RVR: (2) Chronic heart failure with reduced ejection fraction and diastolic dysfunction: (3) Ischemic cardiomyopathy: (4) Elevated troponin: (5) Tachy-noman syndrome: (6) Multiple myeloma: (7) Anemia: Plan 78 year old male admitted with acute on chronic multifactorial shortness of breath secondary to atrial fibrillation with rapid ventricular response with demand ischemia, chronic ischemic heart disease, emphysema, interstitial lung disease, anemia in the setting of multiple myeloma, and chronic heart failure with reduced ejection fraction. Continue medical management. Metoprolol titrated to to 75 mg in the a.m., 50 mg in the p.m. 06/26/2023. Continue as outpatient. Creatinine trending downward. Recommend p.o. furosemide 40 mg daily on Wednesday, Wednesday, and Wednesday. Additional/titration of evidence-based heart failure therapy limited by chronic borderline resting hypotension with history of orthostatic hypotension and near syncope. Patient currently receiving chemotherapeutic treatment for multiple myeloma with Darzalex faspro and Revlimid. Both treatments are associated with peripheral edema. Volume status currently improved after treatment with IV and PO diuretic therapy. No further inpatient cardiac testing or intervention recommended at this time. Outpatient cardiology follow-up in 2 weeks. Admission and Anticipated Discharge Date Admission Date: June 25, 2023 Subjective Patient seen examined the bedside. Feeling better today. Atrial fibrillation with controlled ventricular sponsor on telemetry. Denies palpitations or chest discomfort. Dyspnea improved. No edema, orthopnea, or PND. Review of Systems Review of Systems: All systems reviewed & are unremarkable except as noted in Subjective Physical Exam Constitutional: well nourished and + ill appearing; no acute distress Respiratory: no respiratory distress, no labored breathing and no retractions Auscultation: + diminished lung sounds (Bases bilateral); no rales, no rhonchi and no wheezes Cardiovascular: Rate/Rhythm: regular rate, regular rhythm and + irregularly irregular Heart Sounds: normal S1 and normal S2; no murmur Vessels: radial pulses present; no JVD and no carotid bruit Extremities: no edema Gastrointestinal (Abdomen): Inspection/Auscultation: normal bowel sounds; abdomen not distended Percussion/Palpation: abdomen soft; abdomen nontender, no guarding and abdomen not rigid Neurologic: CN's II-XI intact bilaterally and moves all extremities; no focal motor deficits Results & Data Vital Signs (Past 12 Hours) Vital Signs Temp Pulse Resp BP BP Pulse Ox O2 Del Method 06/30/23 11:24 36.6 C 76 16 102/54 L 95 Room Air 06/30/23 09:44 100/62 06/30/23 07:34 36.6 C 78 16 96/59 L 98 Room Air 06/30/23 03:09 37.2 C 70 18 100/57 L 97 Room Air Laboratory Results CBC 06/30/23 Range/Units 05:31 WBC 3.55 L (4.8-10.8) K/ul RBC 2.59 L (4.70-6.10) M/uL Hgb 8.3 L (14.0-18.0) g/dl Hct 25.7 L (42.0-52.0) % Plt Count 106 L (130-400) K/uL Comprehensive Metabolic Panel 06/30/23 Range/Units 05:31 Sodium 138 (136-145) mmol/L Potassium 4.3 (3.5-5.1) mmol/L Chloride 108 H (98-107) mmol/L Carbon Dioxide 23 (21-32) mmol/L BUN 25 H (6-23) mg/dl Creatinine 1.27 (0.6-1.4) mg/dl Glucose 135 H (70-99(Fasting)) mg/dl Calcium 7.8 L (8.6-10.3) mg/dl Intake and Output 06/29/23 06/30/23 06/30/23 22:59 06:59 14:59 Intake Total 240 / 480 200 / 200 Output Total 1150 / 2525 800 / 2525 1500 / 1500 Balance -910 / -2045 -800 / -2045 -1300 / -1300 Intake: Oral 200 / 200 Other 240 / 240 Output: Urine 1150 / 2525 800 / 2525 1500 / 1500 Other: Other Intake Source sips # Unmeasured Voids 1 1 Weight 73.9 kg Weight Measurement Method Built in [facility]
--- NOTE | 2023-06-30 14:14 | Hospitalist Progress Note ---
Date of Service June 30, 2023 Assessment & Plan (1) Atrial fibrillation with rapid ventricular response: (2) Pacemaker: (3) CAD (coronary artery disease): (4) HLD (hyperlipidemia): (5) HTN (hypertension): (6) Multiple myeloma: (7) Type 2 diabetes mellitus: (8) Diabetic peripheral neuropathy associated with type 2 diabetes mellitus: Plan Dyspnea on exertion Likely multifactorial secondary to A-fib RVR, demand ischemia, chronic interstitial lung disease, emphysema and anemia A-fib RVR Chronic heart failure with reduced ejection fraction and diastolic dysfunction --Chest CT:Prominent emphysema and interstitial fibrotic disease. No evidence of pneumonia. Cardiomegaly with pacemaker placement. --ECHO: EF 35 to 40%. Large wall motion abnormality with hypokinesis of the basal inferoseptum, inferior wall at the basal and mid levels, basal level of inferolateral wall unchanged from prior study. Left atrium is moderately dilated. Moderate mitral regurgitation. H/O orthostatic hypotension, near syncope, amiodarone ineffective Metoprolol succinate dose increased to 75 mg every morning, 50 mg every afternoon Also on Digoxin Continue Eliquis for anticoagulation Appreciate cardiology input Monitor and replete electrolytes as needed Continue diuresis per cardiology: Plan to discharge on Lasix 40 mg daily on Wednesday, Wednesday and Wednesday only Needs follow-up with cardiology in 2 weeks ABDI Cr:1.27 today Monitor volume status Avoid nephrotoxic agents as able Monitor renal function Left Foot Wound infection-POA - Chronic, following with the wound clinic - pt reports some pain with walking and is wearing a boot, recently completed outpatient course of Augmentin for + klebsiella oxytoca and enterococcus faecalis on 04/27/23. - Pressure offloading with CAM boot - Foot X ray:No acute osseous abnormality. Fusion of the MTP joint. -- Wound culture growing Klebsiella, Enterobacter --Blood cultures 10/21: Coagulase-negative staph--likely contaminant Repeat blood cultures no growth to date Wound care nurse consulted IV Rocephin>> changed to IV cefepime Transition to p.o. 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 Currently undergoing chemotherapy with Darzalex , revlimid and decadron ---possible that regimen is increasing potential for afib to occur? Pt is not a candidate for high dose chemotherapy or stemm cell tranplant due to comorbid condition and lung issues. - Primary oncologist is Dr. Van - Cont dexamethasone 20 mg once per week on Wednesday - Revlimid 10 mg daily - Linzess for opiod induced constipation, prn bowel regimen ordered - Continue morphine IR 15 mg for pain, gabapentin 300 mg BID DM II Peripheral Neuropathy - Last A1C was 6.6 on 06/14/23 - Victoza 1.2 mg daily -Continue insulin per protocol Monitor BGs DVT Px: Eliquis CODE STATUS: DNR/DNI Disposition Home Admission and Anticipated Discharge Date Admission Date: June 25, 2023 Subjective Patient is seen and examined at bedside States feeling well today Dyspnea resolved Denies any chest pain, dizziness, nausea, vomiting, abdominal pain Plan to discharge home today Review of Systems Review of Systems: All systems reviewed & are unremarkable except as noted in Subjective Physical Exam Physical Exam: Physical Exam: Vitals signs as noted above General Appearance:Moderately built and nourished, no apparent distress Head: normocephalic, Atraumatic Eyes: normal inspection, EOMI Neck: supple, Trachea midline Respiratory/Chest: Decreased breath sounds, CTA, No accessory muscle use Cardiovascular: Irregularly Irregular, No murmur Abdomen/GI:Soft, Non tender, Bowel sounds present Extremities/Musculoskeletal:normal inspection, no edema Neurologic/Psych:AAOX3, grossly no focal neurological deficits, +Small open plantar wound Skin: normal color, warm Results & Data Results & Data Vital Signs (Past 12 Hours) Vital Signs Temp Pulse Resp BP BP Pulse Ox O2 Del Method 06/30/23 11:24 36.6 C 76 16 102/54 L 95 Room Air 06/30/23 09:44 100/62 06/30/23 07:34 36.6 C 78 16 96/59 L 98 Room Air 06/30/23 03:09 37.2 C 70 18 100/57 L 97 Room Air Laboratory Results Short CBC 06/30/23 Range/Units 05:31 WBC 3.55 L (4.8-10.8) K/ul Hgb 8.3 L (14.0-18.0) g/dl Hct 25.7 L (42.0-52.0) % Plt Count 106 L (130-400) K/uL [facility] 06/30/23 05:31 Sodium 138 Potassium 4.3 Chloride 108 H Carbon Dioxide 23 BUN 25 H Creatinine 1.27 Glucose 135 H Calcium 7.8 L
--- NOTE | 2023-06-30 14:26 | Discharge Summary ---
Date of Service June 30, 2023 Admission HPI Per Admitting Provider This is a 78-year-old male with PMHx of chronic systolic CHF, chronic ischemic heart disease, HTN, HLD, CAD s/p CABG, history of STEMI, paroxysmal A-fib, SSS s/p pacemaker, DM type II, peripheral neuropathy, GERD, CKD, multiple myeloma currently undergoing chemotherapy with Darzalex, revlimid and decadron, last treatment was on 05/25/[address] Van. Next appointment is on 06/29/2023. Other past medical history includes emphysema, interstitial lung disease, and therapeutic opioid-induced constipation. Mr. Hernandez is here with his today. They report that they just returned yesterday from a cruise to [place] from which they were on for 5 days. Prior to this trip he noticed increasing shortness of breath, dyspnea on exertion but did not feel that it was bad enough to contact doctors office. Since then, reports increased shortness of breath for the past 6 days total, and seems to be progressively worsening. With exertion he is experiencing increased palpitations in his chest, which then subside most of the time after resting a while. He feels that upon walking down a hallway that he has to stop and catch his breath. He denies any fevers or sweats but reports that he has been chilled here in the ER today. Patient has been following with wound care as an outpatient for a left foot ulceration for which he is wearing a pressure offloading boot, and states that a few weeks ago he completed a antibiotic course for an infection. He feels that his foot is not currently infected, denies surrounding redness. He has kept a bandage over top of the wound and there is some purulent drainage on this upon removal personally, and also has a significant odor. He admits that it is somewhat painful for him to walk on. Patient denies any recent illnesses or known sick contacts. They report that they kept their distance from other members on the cruise ship. He reports having a runny nose but states that this is chronic, denies any other respiratory viral type symptoms. He has been eating and drinking well without difficulty. Patient has taken all his normally scheduled medications, and has not missed any of his cardiac meds including metoprolol succinate, digoxin or Eliquis. He denies any alcohol use or smoking, but reports that his smokes in the kitchen in their house. Admission Exam Per Admitting Provider General: awake, alert, no apparent distress, + appears very coreas Head: Normocephalic, atraumatic ENT: PERRL, EOMI, no pharyngeal exudate, mucous membranes moist Chest: Diminished breath sounds but no wheeze, rales or rhonchi, on room air, no adventitious breath sounds Cardiac: Regular rate and rhythm, few PVCs, Hr in 80s at bedside, no murmur, no JVD, normal peripheral pulses, good capillary refill Abdominal: NABS x 4 quadrants, soft, nondistended, nontender to palpation, no rebound or guarding Extremities: left plantar foot wound ~ 1 cm in diameter, foul smelling, black eschar, no surrounding erythema, +mild drainage on bandage. Otherwise Normal inspection, no peripheral edema or erythema, calfs nontender to palpation Psych: Normal mood and affect Neuro: AAO x 3, strength intact bilaterally and rated 5/5, no motor deficits, speech is clear, no peripheral sensory deficits Principal Diagnosis Atrial fibrillation with rapid ventricular response Chronic heart failure with reduced ejection fraction and diastolic dysfunction Left Foot Wound infection Acute kidney injury Hypomagnesemia Discharge Data Allergies Allergy/AdvReac Type Severity Reaction Status Date / Time tizanidine Allergy Unknown UNKNOWN--ON Verified 06/25/23 13:38 [facility] [place] MED LIST Consultations 06/25/23 13:00 ED Decision to Admit Stat 06/26/23 12:53 Consult Cardiology Routine Procedures Performed Laboratory Results WBC 3.55 K/ul (4.8-10.8) L 06/30/23 05:31 RBC 2.59 M/uL (4.70-6.10) L 06/30/23 05:31 Hgb 8.3 g/dl (14.0-18.0) L 06/30/23 05:31 POC Hgb 9.5 g/dl (14.0-18.0) L 06/25/23 11:52 Hct 25.7 % (42.0-52.0) L 06/30/23 05:31 POC Hct 28 % (42-52) L 06/25/23 11:52 MCV 99.2 fL (80.0-100.0) 06/30/23 05:31 MCH 32.0 pg (25.0-34.0) 06/30/23 05:31 MCHC 32.3 g/dL (32.0-36.0) 06/30/23 05:31 RDW Std Deviation 55.3 fL (36.4-46.3) H 06/30/23 05:31 RDW Coeff of Collin 15.3 % (11.5-14.5) H 06/30/23 05:31 Plt Count 106 K/uL (130-400) L 06/30/23 05:31 MPV 12.4 fL (9.4-12.4) 06/30/23 05:31 Immature Gran % (Auto) 2.5 % 06/26/23 06:19 Neut % (Auto) 61.7 % 06/26/23 06:19 Lymph % (Auto) 25.7 % 06/26/23 06:19 [place] % (Auto) 7.6 % 06/26/23 06:19 Eos % (Auto) 1.7 % 06/26/23 06:19 Baso % (Auto) 0.8 % 06/26/23 06:19 Neut # (Auto) 1.46 K/uL (1.40-6.50) 06/26/23 06:19 Lymph # (Auto) 0.61 K/uL (1.20-3.40) L 06/26/23 06:19 [place] # (Auto) 0.18 K/uL (0.11-0.59) 06/26/23 06:19 Eos # (Auto) 0.04 K/uL (0.00-0.50) 06/26/23 06:19 Baso # (Auto) 0.02 K/uL (0.00-0.20) 06/26/23 06:19 Immature Gran # (Auto) 0.06 K/uL (0.01-0.20) 06/26/23 06:19 Absolute Nucleated RBC 0.02 K/uL (0.00-0.12) 06/27/23 06:49 Nucleated RBC % (auto) 0.7 % 06/27/23 06:49 Polychromasia 1+ 06/26/23 06:19 Tear Drop Cells 1+ 06/26/23 06:19 Ovalocytes 1+ 06/26/23 06:19 PT 11.6 Seconds (9.0-12.0) 06/25/23 11:49 INR 1.1 (0.9-1.1) 06/25/23 11:49 APTT 25.8 Seconds (21.0-31.0) 06/25/23 11:49 PTT Ratio 0.9 06/25/23 11:49 POC Sodium 140 mmol/L (135-144) 06/25/23 11:52 Sodium 138 mmol/L (136-145) 06/30/23 05:31 POC Potassium 4.0 mmol/L (3.3-5.0) 06/25/23 11:52 Potassium 4.3 mmol/L (3.5-5.1) 06/30/23 05:31 POC Chloride 107 mmol/L (101-112) 06/25/23 11:52 Chloride 108 mmol/L (98-107) H 06/30/23 05:31 Carbon Dioxide 23 mmol/L (21-32) 06/30/23 05:31 POC Total CO2 20 mmol/L (24-31) L 06/25/23 11:52 Anion Gap 7 (3-11) 06/30/23 05:31 POC Anion Gap 18.0 mmol/L (16-25) 06/25/23 11:52 POC BUN 22 mg/dl (7-18) H 06/25/23 11:52 BUN 25 mg/dl (6-23) H 06/30/23 05:31 Creatinine 1.27 mg/dl (0.6-1.4) 06/30/23 05:31 POC Creatinine 1.5 mg/dl (0.6-1.3) H 06/25/23 11:52 Est Cr Clr Drug Dosing 50.9 ml/min 06/30/23 05:31 Est GFR ( Amer) 62.7 ml/min 06/30/23 05:31 Est GFR (Non-Af Amer) 54.1 ml/min 06/30/23 05:31 BUN/Creatinine Ratio 19.7 (10-20) 06/30/23 05:31 Glucose 135 mg/dl (70-99(Fasting)) H 06/30/23 05:31 POC Glucose 290 mg/dl (70-99) H 06/30/23 11:09 POC Glucose (other) 213 mg/dl (70-99) H 06/25/23 11:52 Lactate 1.6 mmol/L (0.4-2.0) 06/25/23 16:55 Calcium 7.8 mg/dl (8.6-10.3) L 06/30/23 05:31 POC Ioniz Calcium [place] 1.05 mmol/l (1.12-1.32) L 06/25/23 11:52 Phosphorus 3.0 mg/dl (2.5-4.9) 06/26/23 06:19 Magnesium 1.7 mg/dl (1.7-2.4) 06/29/23 06:02 Total Bilirubin 0.6 mg/dl (0.2-1.0) 06/26/23 06:19 AST 9 U/L (13-39) L 06/26/23 06:19 ALT 18 U/L (7-52) 06/26/23 06:19 Alkaline Phosphatase 36 U/L (34-104) 06/26/23 06:19 Troponin I High Sens 595.5 pg/ml (0-20) H* D 06/26/23 06:19 B-Natriuretic Peptide 656 pg/ml (0-100) H 06/25/23 11:49 Total Protein 5.4 gm/dl (6.0-8.3) L 06/26/23 06:19 Albumin 3.3 gm/dl (3.4-5.0) L 06/26/23 06:19 Globulin 2.1 gm/dl (2.5-4.0) L 06/26/23 06:19 Albumin/Globulin Ratio 1.6 (0.9-2) 06/26/23 06:19 Vitamin B12 352 pg/ml (180-914) 06/25/23 19:35 Folate 21.20 ng/ml (>5.38) 06/25/23 19:35 Urine Color Yellow 06/25/23 17:30 Urine Appearance Clear (Clear) 06/25/23 17:30 Urine pH 5.5 (4.5-7.5) 06/25/23 17:30 Ur Specific [place] 1.015 (1.000-1.030) 06/25/23 17:30 Urine Protein 1+ (Negative) H 06/25/23 17:30 Urine Glucose (UA) 2+ (Negative) H 06/25/23 17:30 Urine Ketones Negative (Negative) 06/25/23 17:30 Urine Blood 2+ (Negative) H 06/25/23 17:30 Urine Nitrite Negative (Negative) 06/25/23 17:30 Urine Bilirubin Negative (Negative) 06/25/23 17:30 Urine Urobilinogen Negative (Negative) 06/25/23 17:30 Ur Leukocyte Esterase Negative (Negative) 06/25/23 17:30 Urine WBC (Auto) 1-5 /hpf (0-5) 06/25/23 17:30 Urine RBC (Auto) 5-10 /hpf (0-4) H 06/25/23 17:30 U Hyaline Cast (Auto) 1-5 /lpf (0-5) 06/25/23 17:30 U Epithel Cells (Auto) 0-5 /lpf (0-5) 06/25/23 17:30 Urine Bacteria (Auto) Negative (Negative) 06/25/23 17:30 Adenovirus (PCR) Not Detected (NotDetected) 06/25/23 14:09 B. pertussis DNA (PCR) Not Detected (NotDetected) 06/25/23 14:09 B.parapertussis DNA PCR Not Detected (NotDetected) 06/25/23 14:09 C. pneumoniae DNA (PCR) Not Detected (NotDetected) 06/25/23 14:09 Coronavirus OC43 (PCR) Not Detected (NotDetected) 06/25/23 14:09 Coronavirus HKU1 (PCR) Not Detected (NotDetected) 06/25/23 14:09 Coronavirus 229E (PCR) Not Detected (NotDetected) 06/25/23 14:09 SARS-CoV-2 (PCR) Not Detected (NotDetected) 06/25/23 14:09 Coronavirus NL63 (PCR) Not Detected (NotDetected) 06/25/23 14:09 Human Metapneumovir PCR Not Detected (NotDetected) 06/25/23 14:09 Influenza Type A (PCR) Not Detected (NotDetected) 06/25/23 14:09 Influenza Type B (PCR) Not Detected (NotDetected) 06/25/23 14:09 M. pneumoniae (PCR) Not Detected (NotDetected) 06/25/23 14:09 Parainfluenza 1 (PCR) Not Detected (NotDetected) 06/25/23 14:09 Parainfluenza 2 (PCR) Not Detected (NotDetected) 06/25/23 14:09 Parainfluenza 3 (PCR) Not Detected (NotDetected) 06/25/23 14:09 Parainfluenza 4 (PCR) Not Detected (NotDetected) 06/25/23 14:09 RSV (PCR) Not Detected (NotDetected) 06/25/23 14:09 Entero/Rhino (PCR) Not Detected (NotDetected) 06/25/23 14:09 SARS-CoV-2, RNA, NAAT NEGATIVE (NEGATIVE) 06/25/23 12:02 Staphylococcus sp PCR DETECTED (NotDetected) A 06/25/23 14:24 Bld Cult ID Panel PCR See PCR Comment (NotDetected) 06/25/23 14:24 Impressions Chest X-Ray 06/25/23 11:32 XR chest 1V portable CLINICAL HISTORY: Chest pain, nonspecific TECHNIQUE: Single frontal radiograph of the chest was obtained. Comparison: Comparison is made to chest radiograph 11/04/2022 FINDINGS: An implanted pacemaker is seen. Median sternotomy wires are seen. Cardiomegaly is noted. The lungs are clear. Blunting of the bilateral costophrenic angles is again seen. IMPRESSION: No acute chest disease. Cardiomegaly is noted. ACT 112: Negative or not required by law. Electronically signed by: Tacho Lambert M.D. 06/25/2023 12:[address] 06/25/23 13:27 CT chest diagnostic wo con CLINICAL HISTORY: Shortness of breath TECHNIQUE: Multidetector row helical CT of the chest was performed. Coronal and sagittal reformations were obtained. Automated dose lowering techniques and/or adjustment according to patient size were utilized for this exam. CT DOSE: 414.00 mGy.cm Comparison: Comparison is made to CT chest 04/22/2022 FINDINGS: Lungs and pleura: Prominent emphysema favors the upper lobes. Interstitial thickening is also noted with bronchial wall thickening. No suspicious pulmonary nodules are seen. Heart and pericardium: Cardiomegaly is seen with biatrial enlargement. Pacemaker is seen. Vessels: Severe atherosclerotic changes in the aorta and coronary arteries. Mediastinum and josé: Subcentimeter lymph nodes are seen. Chest wall and lower neck: Unremarkable. Abdomen: Unremarkable. Bones: Degenerative changes of the thoracic spine. Old healed rib fractures are seen. IMPRESSION: 1. Prominent emphysema and interstitial fibrotic disease. No evidence of pneumonia. 2. Cardiomegaly with pacemaker placement. ACT 112: Negative or not required by law. Electronically signed by: Tacho Lambert M.D. 06/25/2023 3:43 PM Foot X-Ray 06/25/23 13:53 XR foot LT min 3V routine HISTORY: 78 years-old Male left foot wound, eval for osteomyelitis chronic left leg pain COMPARISON: 01/08/2023 TECHNIQUE: 3 views of the left foot FINDINGS: Left first metatarsophalangeal joint fusion is again noted. Incomplete bony bridging has mildly progressed from prior. Chronic extensive osteophytosis adjacent to the left first MTP joint is again noted. Subtle lucency adjacent to the remaining screw is similar to prior exam. There is no acute fracture within the left foot. No evidence for acute osteomyelitis. IMPRESSION: 1. No acute osseous abnormality. 2. Fusion of the MTP joint. ACT 112: Negative or not required by law. The above report was generated using voice recognition software. It may contain grammatical, syntax or spelling errors. Electronically signed by: Uziel Nieto M.D. 06/25/2023 3:30 PM Ordered Studies 06/25/23 13:27 CT chest diagnostic wo con Stat Hospital Course (1) Atrial fibrillation with rapid ventricular response: (2) Pacemaker: (3) CAD (coronary artery disease): (4) HLD (hyperlipidemia): (5) HTN (hypertension): (6) Multiple myeloma: (7) Type 2 diabetes mellitus: (8) Diabetic peripheral neuropathy associated with type 2 diabetes mellitus: Plan Dyspnea on exertion Likely multifactorial secondary to A-fib RVR, demand ischemia, chronic interstitial lung disease, emphysema and anemia A-fib RVR Chronic heart failure with reduced ejection fraction and diastolic dysfunction --Chest CT:Prominent emphysema and interstitial fibrotic disease. No evidence of pneumonia. Cardiomegaly with pacemaker placement. --ECHO: EF 35 to 40%. Large wall motion abnormality with hypokinesis of the basal inferoseptum, inferior wall at the basal and mid levels, basal level of inferolateral wall unchanged from prior study. Left atrium is moderately dilated. Moderate mitral regurgitation. H/O orthostatic hypotension, near syncope, amiodarone ineffective Metoprolol succinate dose increased to 75 mg every morning, 50 mg every afternoon Also on Digoxin Continue Eliquis for anticoagulation Appreciate cardiology input Monitor and replete electrolytes as needed Continue diuresis per cardiology: Plan to discharge on Lasix 40 mg daily on Wednesday, Wednesday and Wednesday only Needs follow-up with cardiology in 2 weeks ABDI Cr:1.27 today Monitor volume status Avoid nephrotoxic agents as able Monitor renal function Left Foot Wound infection-POA - Chronic, following with the wound clinic - pt reports some pain with walking and is wearing a boot, recently completed outpatient course of Augmentin for + klebsiella oxytoca and enterococcus faecalis on 04/27/23. - Pressure offloading with CAM boot - Foot X ray:No acute osseous abnormality. Fusion of the MTP joint. -- Wound culture growing Klebsiella, Enterobacter --Blood cultures 10/21: Coagulase-negative staph--likely contaminant Repeat blood cultures no growth to date Wound care nurse consulted IV Rocephin>> changed to IV cefepime Transition to p.o. 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 Currently undergoing chemotherapy with Darzalex , revlimid and decadron ---possible that regimen is increasing potential for afib to occur? Pt is not a candidate for high dose chemotherapy or stemm cell tranplant due to comorbid condition and lung issues. - Primary oncologist is Dr. Van - Cont dexamethasone 20 mg once per week on Wednesday - Revlimid 10 mg daily - Linzess for opiod induced constipation, prn bowel regimen ordered - Continue morphine IR 15 mg for pain, gabapentin 300 mg BID DM II Peripheral Neuropathy - Last A1C was 6.6 on 06/14/23 - Victoza 1.2 mg daily -Continue insulin per protocol Monitor BGs DVT Px: Kathyquis CODE STATUS: DNR/DNI Disposition Home Total Time Total Time Spent Total Time Spent (In Minutes): 56 minutes Discharge Plan Discharge Items Patient Disposition: Home - Self-Care Reason For Visit: AFIB RVR, SHORTNESS OF BREATH Discharge Diagnosis: Atrial fibrillation with rapid ventricular response Chronic heart failure with reduced ejection fraction and diastolic dysfunction Left Foot Wound infection Acute kidney injury Hypomagnesemia Activity: Per Instructions section Exercise/Sports: Wait until after follow-up appointment Non-emergency contact: Primary Care Provider, Specialist and Bolt Man Call non-emergency contact if: you have any medication questions, your symptoms worsen, your pain is concerning for you and you have a fever Follow-up/Referrals: [facility] Care [Other] - 07/02/23 1:30 pm Landen Macario, DO [Primary Care Provider] - (Date & Time 07/05/2023 9:00 AM Provider Purnima Soto MD [facility] ) Diet: Carb Consistent or DM2 and Heart Healthy Addtl Attending Provider Instructions: Follow-up with your primary care physician Dr. Macario on 07/05/2023 9:00 AM Follow-up with your wound clinic on 07/02/2023 at 1:30 PM as scheduled Follow-up with your nutrition partner Dr. Lane in 2 weeks as advised --Complete antibiotic course ciprofloxacin as prescribed --Final blood cultures are pending at the time of discharge. Follow-up with your physician for results. Medication Changes: 1) complete ciprofloxacin antibiotic course as prescribed 2) your metoprolol dose is increased to 75 mg every morning and 50 mg every afternoon 3) start taking furosemide 40 mg daily on Wednesday, Wednesday and Wednesday only Seek immediate medical attention if your symptoms reoccur or worsen Please take all medications as instructed on discharge list below. Please call if you have any questions or problems. You can reach a [facility] hospitalist on duty at [facility] 24 hours a day by calling [phone] Pending Studies at Discharge: Yes Studies:: Blood Cultures Stand-Alone Forms: My [facility], Smoking Cessation Medications and DC Order Prescriptions: New furosemide 40 mg Tablet 40 mg PO MoWeFr@[id number] Qty: 30 0RF Rx Instructions: on Wednesday, Wednesday and Wednesday only metoprolol succinate 25 mg tablet extended release 24 hr 25 mg PO UD Qty: 30 1RF Rx Instructions: Take Metoprolol 75mg QAM and 50mg QPM ciprofloxacin HCl 500 mg tablet 500 mg PO BID Qty: 15 0RF Continued atorvastatin 40 mg tablet 40 mg PO DAILY Eliquis 5 mg tablet 5 mg PO BID insulin glargine [Basaglar KwikPen U-100 Insulin] 100 unit/mL (3 mL) insulin pen 40 unit SUBCUT QPM omega-3 fatty acids 1,000 mg Capsule 1,000 mg PO BID sennosides [senna] 8.6 mg Tablet 17.2 mg PO HS PRN (Reason: Constipation) digoxin 125 mcg (0.125 mg) tablet 125 mcg PO Q OTHER DAY albuterol sulfate 90 mcg/actuation Hfa Aerosol Inhaler 2 puff INHALATION Q6H PRN (Reason: COUGH/SHORT OF BREATH/WHEEZING) lenalidomide [Revlimid] 10 mg capsule 10 mg PO DIRECTED Rx Instructions: TAKES FOR 21 DAYS THEN OFF FOR 7 DAYS. calcium carbonate-vitamin D3 [Calcium 600 + D(3)] 600 mg-10 mcg (400 unit) Tablet 1 tab PO BID potassium chloride 20 mEq tablet,ER particles/crystals 20 meq PO BID prochlorperazine maleate 10 mg Tablet 10 mg PO Q6H PRN (Reason: nausea) ondansetron 8 mg Tablet,Disintegrating 8 mg PO Q8H PRN (Reason: Nausea) Victoza 2-Jed 0.6 mg/0.1 mL (18 mg/3 mL) Pen Injector 1.2 mg SUBCUT DAILY polyethylene glycol 3350 [Miralax] 17 gram Powder In Packet 17 g PO DAILY PRN (Reason: constipation) Qty: 15 0RF nitroglycerin 0.4 mg tablet, sublingual 0.4 mg sublingual .Q 5 MIN MDD 3 doses in 15 min PRN (Reason: Chest Pain) insulin aspart U-100 [Novolog FlexPen U-100 Insulin] 100 unit/mL (3 mL) insulin pen 15 unit SUBCUT TIDM MDD 60 UNITS Patient Comments: Uses scale to dose Rx Instructions: PLUS CORRECTION OF 1:25 OVER 150. gabapentin 300 mg capsule 300 mg PO [facility] Rx Instructions: BID PER DR 1ST docusate sodium [Colace] 100 mg capsule 100 mg PO BID PRN (Reason: Constipation) morphine 15 mg tablet 15 mg PO Q4H PRN (Reason: Pain) mecobalamin (vitamin B12) [B12 Active] 1,000 mcg Tablet,Chewable 1,000 mcg PO DAILY dexamethasone 4 mg tablet 20 mg PO WK Rx Instructions: Tuesdays, chemotherapy mirtazapine 30 mg tablet 30 mg PO HS omeprazole 20 mg capsule,delayed release(DR/EC) 20 mg PO QAM Changed metoprolol succinate [Toprol XL] 50 mg tablet extended release 24 hr 50 mg PO UD Qty: 60 0RF Rx Instructions: Take Metoprolol 75mg QAM and 50mg QPM Discharge Orders: Discharge Order (Routine); Ordered 06/30/23 Ordered By: Bhavesh Woo/Other Patient Handouts: Your Heart's Electrical System, Diabetes and Heart Disease, Diabetes Inspect Feet Admission Data Admit Date/Time: 06/25/23 13:27 Attending Provider: Bhavesh Larsen Admit Provider: Mirian Barbuor Primary Care Provider: Landen Macario Other Providers: Mirian Barbour ; Jeremías Lane
[2023-06-30] MEDS ORDERED: LANTUS PER UNIT CHARGE SQ SCH (21:00)
== END 2023-06-30 15:41 | disposition home or self-care (01) | DRG 309 ==
LOC: ED 11:25 → SUATTDRO 13:27 → 2S 13:27

== ENCOUNTER 2023-07-06 13:26 | Inpatient (IN) ==
--- NOTE | 2023-07-06 14:15 | XRay Report ---
XR chest 1V not portable CLINICAL HISTORY: Chest pain, nonspecific TECHNIQUE: Single frontal radiograph of the chest was obtained. Comparison: Comparison is made to chest radiograph 06/25/2023 FINDINGS: Median sternotomy wires are unchanged. Dual lead pacemaker is noted. Calcified aortic knob is seen. R ight upper lung airspace opacity is seen compatible with No evidence of pleural effusion or pneumotho rax. IMPRESSION: No acute chest disease. ACT 112: Negative or not required by law. Electronically signed by: Tacho Lambert M.D. 07/06/2023 2:13 PM
--- NOTE | 2023-07-06 14:31 | Emergency Department Note ---
Impression & Plan Pneumonia, SOB (shortness of breath) ED Provider Note NAME: DARREN CONNOLLY AGE: 78 SEX: M : 1945 ARRIVES VIA: Walk-In INFORMANT: Patient, ED PROVIDER(S): Dutch Saleem DO CHIEF COMPLAINT: Difficulty breathing HPI: The patient is a 78-year-old male who presented to the emergency department for an evaluation of difficulty breathing. The patient was recently admitted to our facility for similar complaints. He returned from a trip and was short of breath. At that time he was found to have congestive heart failure. The patient states he has return of symptoms. It worsens when he exerts himself. He denies having any hemoptysis. He does have a dry cough. He denies have any lower extremity swelling but does have a walking boot on his left leg because of her previous injury. He does have a history of atrial fibrillation. Takes blood thinners as well as digoxin. He did not see his family doctor today. He presented to the emergency department because of symptoms. ROS: See above HPI for pertinent positives & negatives. A total of 10 systems reviewed and were otherwise negative. PAST MEDICAL HISTORY: See Below PAST SURGICAL HISTORY: See Below FAMILY HISTORY: See Below SOCIAL HISTORY: See Below HOME MEDICATIONS: See Below ALLERGIES: See Below VITALS: See Below PHYSICAL EXAMINATION: GENERAL: The patient is awake and alert. He is resting comfortably. EYES: The conjunctivae are clear. The pupils are round and reactive. EARS, NOSE, MOUTH AND THROAT: The nose is without any evidence of any deformity. NECK: The neck is nontender and supple. RESPIRATORY: Diminished breath sounds are noted throughout. There were faint rales at both bases. There is mild conversational dyspnea appreciated. CARDIOVASCULAR: Tachycardic and irregular heart sounds were noted to auscultation. There is no definite murmur GASTROINTESTINAL: The abdomen is soft. Abdomen is nontender. MUSCULOSKELETAL/EXTREMITIES: There is no evidence of gross deformity full range of motion is noted in the hips and shoulders. SKIN: There is no significant pedal edema noted of the right leg. There was a walking boot on the left leg. NEUROLOGIC: Patient is awake alert and oriented x3 MEDICAL DECISION MAKING: The patient is a 78-year-old male who presented to the emergency department for an evaluation of difficulty breathing. The patient did not have cough or fever. Given the patient's medical history further laboratory and radiographic studies were obtained. Chest x-ray showed no definite abnormality but he does have some scarring. There was no change from previous. The patient has risk factors for DVT. For this reason D-dimer sent and was found to be positive. For this reason CT angiography of the chest was obtained which appears to be more consistent with an infiltrate. Given the patient's comorbidities I do feel the patient would be a better candidate for inpatient management of this pneumonia. For this reason [facility] evaluate the patient in the emergency departme for further management and disposition. Triage Nursing notes reviewed. Prior medical records reviewed Vital Signs: reviewed and remarkable for no significant abnormalities Differential diagnosis: Reactive airway disease, pneumonia, pneumothorax, COPD, CHF, infections, cardiac ischemia, pulmonary embolism, musculoskeletal, gastrointestinal, as well as other pathologies. ER treatment provided: See below Diagnostics interpreted by me: ECG: EKG was obtained in the emergency department. My interpretation is atrial fibrillation with RVR at 114 bpm. No PVCs were noted. ST depressions were noted in the inferior and low lateral leads. This was compared to a tracing from June 25, 2023. No changes were noted. Cardiac Monitoring: An order was placed for continuous cardiac monitoring. The monitor shows a rate of 86 bpm with atrial fibrillation. Laboratory studies: As stated above and show below. Imaging studies: See below. Radiographic imaging was reviewed by myself Consultation(s): I discussed this case with Oliva [facility]. Past Med/Surg History Medical History (Updated 07/06/23 @ 22:44 by Dutch Saleem DO) ABDI (acute kidney injury) CAD (coronary artery disease) CHI (closed head injury) Chronic deep vein thrombosis (DVT) Diabetic ulcer of left foot Diarrhea Hallux rigidus of left foot "S/p multiple surgeries" History of basal cell carcinoma History of melanoma in situ History of pilonidal cyst HLD (hyperlipidemia) NSTEMI (non-ST elevated myocardial infarction) Pacemaker Pneumonia Type 2 diabetes mellitus Surgical History History of bone marrow biopsy History of cataract surgery History of foot surgery S/P CABG x 4 S/P Mohs surgery for basal cell carcinoma Status post total hip replacement, left Family History Mother Lymphoma Social History Smoking Status: Never smoker Tobacco Type: Cigarettes Cigarettes Per Day: 1-2 times a month; Second Hand Exposure: No; Do You Dip or Chew Tobacco: No; Hx Alcohol Use: No Hx Substance Use: Yes Prescribed Medications: Marijuana Substance Use Type Other:: has a marijuana card but he states he "... 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 able to assist with care as needed. Feels Safe at Home: Yes Diet: regular Diet Comment: Trying to gain weight caffeine: No during the past year weight has: decreased > 10 lbs Assistive Devices: Cane, Special Shoe and Walker Allergies Allergies Allergy/AdvReac Type Severity Reaction Status Date / Time tizanidine Allergy Unknown UNKNOWN--ON Verified 06/25/23 13:38 [facility] MED LIST Home Meds Home Medications Medication Instructions Recorded Confirmed apixaban 5 mg tablet (Eliquis) 5 mg PO BID 06/25/20 07/06/23 atorvastatin 40 mg tablet 40 mg PO DAILY 06/25/20 07/06/23 liraglutide 0.6 mg/0.1 mL (18 mg/3 1.2 mg subcut DAILY 09/30/21 07/06/23 mL) subcutaneous pen injector (Victoza 2-Jed) ondansetron 8 mg disintegrating 8 mg PO Q8H PRN Nausea 09/30/21 07/06/23 tablet prochlorperazine maleate 10 mg 10 mg PO Q6H PRN nausea 09/30/21 07/06/23 tablet nitroglycerin 0.4 mg sublingual 0.4 mg sublingual .Q 5 MIN PRN 11/01/21 07/06/23 tablet Chest Pain omega-3 fatty acids 1,000 mg 1,000 mg PO BID 04/15/22 07/06/23 capsule docusate sodium 100 mg capsule 100 mg PO BID PRN Constipation 04/22/22 07/06/23 (Colace) gabapentin 300 mg capsule 300 mg PO AMHS 04/22/22 07/06/23 mecobalamin (vitamin B12) 1,000 1,000 mcg PO DAILY 04/22/22 07/06/23 mcg chewable tablet (B12 Active) morphine 15 mg immediate release 15 mg PO Q4H PRN Pain 04/22/22 07/06/23 tablet albuterol sulfate 90 mcg/actuation 2 puff inhalation Q6H PRN 11/04/22 07/06/23 aerosol inhaler COUGH/SHORT OF BREATH/WHEEZING calcium carbonate 600 mg-vitamin 1 tab PO BID 11/04/22 07/06/23 D3 10 mcg (400 unit) tablet (Calcium 600 + D(3)) digoxin 125 mcg (0.125 mg) tablet 125 mcg PO Q OTHER DAY 11/04/22 07/06/23 lenalidomide 10 mg capsule 10 mg PO DIRECTED 11/04/22 07/06/23 (Revlimid) potassium chloride 20 mEq 20 meq PO BID 11/04/22 07/06/23 tablet,extended release(part/cryst) sennosides 8.6 mg tablet (senna) 17.2 mg PO HS PRN Constipation 11/04/22 07/06/23 insulin aspart U-100 100 unit/mL 15 unit subcut TIDM 12/31/22 07/06/23 (3 mL) subcutaneous pen (Novolog FlexPen U-100 Insulin aspart) insulin glargine 100 unit/mL (3 40 unit subcut QPM 12/31/22 07/06/23 mL) subcutaneous pen (Basaglar KwikPen U-100 Insulin) dexamethasone 4 mg tablet 20 mg PO WK 06/25/23 07/06/23 mirtazapine 30 mg tablet 30 mg PO HS 06/25/23 07/06/23 omeprazole 20 mg capsule,delayed 20 mg PO QAM 06/25/23 07/06/23 release Previous Rx's Medication Instructions Recorded polyethylene glycol 3350 17 gram 17 g PO DAILY PRN constipation #15 10/05/21 oral powder packet (Miralax) ea ciprofloxacin HCl 500 mg tablet 500 mg PO BID #15 tabs 06/30/23 furosemide 40 mg tablet 40 mg PO MoWeFr@0900 #30 tabs 06/30/23 metoprolol succinate 25 mg 25 mg PO UD #30 tabs 06/30/23 tablet,extended release 24 hr metoprolol succinate 50 mg 50 mg PO UD #60 tabs 06/30/23 tablet,extended release 24 hr (Toprol XL) Results & Data (ED) Vital Signs Vital Signs - 24 hr 07/06/23 13:31 07/06/23 14:18 07/06/23 13:34 Temperature 36.9 C Temperature Source Temporal Artery Scan Pulse Rate 78 90 Pulse Rate from SpO2 Sensor Respiratory Rate 18 Respiratory Effort / Characteristics Non-Labored Spontaneous Respiratory Depth Normal Respiratory Pattern Regular Blood Pressure 119/61 Blood Pressure Mean 80 Pulse Oximetry 97 94 Oxygen Delivery Method Room Air Room Air Sepsis Recent Fever Within 48 Hours No Sepsis New/Unexplained Change in Mental Status No Sepsis Action Taken by Nursing No Action Required 07/06/23 13:34 07/06/23 14:18 07/06/23 14:20 Temperature Temperature Source Pulse Rate 94 H 88 Pulse Rate from SpO2 Sensor Respiratory Rate 13 29 H Respiratory Effort / Characteristics Respiratory Depth Respiratory Pattern Blood Pressure Blood Pressure Mean Pulse Oximetry 98 Oxygen Delivery Method Room Air Sepsis Recent Fever Within 48 Hours Sepsis New/Unexplained Change in Mental Status Sepsis Action Taken by Nursing 07/06/23 14:30 07/06/23 14:40 07/06/23 14:50 Temperature Temperature Source Pulse Rate 87 90 88 Pulse Rate from SpO2 Sensor Respiratory Rate 12 16 16 Respiratory Effort / Characteristics Respiratory Depth Respiratory Pattern Blood Pressure Blood Pressure Mean Pulse Oximetry Oxygen Delivery Method Sepsis Recent Fever Within 48 Hours Sepsis New/Unexplained Change in Mental Status Sepsis Action Taken by Nursing 07/06/23 15:00 07/06/23 15:10 07/06/23 15:20 Temperature Temperature Source Pulse Rate 89 90 90 Pulse Rate from SpO2 Sensor Respiratory Rate 17 16 22 Respiratory Effort / Characteristics Respiratory Depth Respiratory Pattern Blood Pressure Blood Pressure Mean Pulse Oximetry Oxygen Delivery Method Sepsis Recent Fever Within 48 Hours Sepsis New/Unexplained Change in Mental Status Sepsis Action Taken by Nursing 07/06/23 15:30 07/06/23 15:40 07/06/23 15:50 Temperature Temperature Source Pulse Rate 90 89 90 Pulse Rate from SpO2 Sensor Respiratory Rate 16 17 25 H Respiratory Effort / Characteristics Respiratory Depth Respiratory Pattern Blood Pressure Blood Pressure Mean Pulse Oximetry Oxygen Delivery Method Sepsis Recent Fever Within 48 Hours Sepsis New/Unexplained Change in Mental Status Sepsis Action Taken by Nursing 07/06/23 16:00 07/06/23 16:10 07/06/23 16:20 Temperature Temperature Source Pulse Rate 89 89 89 Pulse Rate from SpO2 Sensor Respiratory Rate 20 21 18 Respiratory Effort / Characteristics Respiratory Depth Respiratory Pattern Blood Pressure Blood Pressure Mean Pulse Oximetry Oxygen Delivery Method Sepsis Recent Fever Within 48 Hours Sepsis New/Unexplained Change in Mental Status Sepsis Action Taken by Nursing 07/06/23 16:30 07/06/23 16:51 07/06/23 16:56 Temperature Temperature Source Pulse Rate 87 101 H Pulse Rate from SpO2 Sensor Respiratory Rate 15 32 H Respiratory Effort / Characteristics Respiratory Depth Respiratory Pattern Blood Pressure 102/58 L Blood Pressure Mean 73 Pulse Oximetry Oxygen Delivery Method Sepsis Recent Fever Within 48 Hours Sepsis New/Unexplained Change in Mental Status Sepsis Action Taken by Nursing 07/06/23 16:56 07/06/23 17:00 07/06/23 17:00 Temperature Temperature Source Pulse Rate 85 86 Pulse Rate from SpO2 Sensor 86 86 Respiratory Rate 22 18 Respiratory Effort / Characteristics Respiratory Depth Respiratory Pattern Blood Pressure 115/60 Blood Pressure Mean 74 Pulse Oximetry 98 98 Oxygen Delivery Method Sepsis Recent Fever Within 48 Hours Sepsis New/Unexplained Change in Mental Status Sepsis Action Taken by Nursing 07/06/23 17:10 07/06/23 17:20 07/06/23 17:30 Temperature Temperature Source Pulse Rate 85 86 Pulse Rate from SpO2 Sensor 87 90 Respiratory Rate 23 18 Respiratory Effort / Characteristics Respiratory Depth Respiratory Pattern Blood Pressure 105/57 L Blood Pressure Mean 77 Pulse Oximetry 95 97 Oxygen Delivery Method Sepsis Recent Fever Within 48 Hours Sepsis New/Unexplained Change in Mental Status Sepsis Action Taken by Nursing 07/06/23 17:30 07/06/23 17:40 07/06/23 17:50 Temperature Temperature Source Pulse Rate 88 86 87 Pulse Rate from SpO2 Sensor 94 H 86 87 Respiratory Rate 17 23 16 Respiratory Effort / Characteristics Respiratory Depth Respiratory Pattern Blood Pressure Blood Pressure Mean Pulse Oximetry 92 97 98 Oxygen Delivery Method Sepsis Recent Fever Within 48 Hours Sepsis New/Unexplained Change in Mental Status Sepsis Action Taken by Nursing 07/06/23 18:00 07/06/23 18:00 07/06/23 18:13 Temperature Temperature Source Pulse Rate 90 88 Pulse Rate from SpO2 Sensor 91 H Respiratory Rate 16 Respiratory Effort / Characteristics Respiratory Depth Respiratory Pattern Blood Pressure 109/55 L Blood Pressure Mean 71 Pulse Oximetry 96 Oxygen Delivery Method Room Air Sepsis Recent Fever Within 48 Hours Sepsis New/Unexplained Change in Mental Status Sepsis Action Taken by Nursing 07/06/23 18:10 07/06/23 18:20 07/06/23 18:30 Temperature Temperature Source Pulse Rate 87 102 H Pulse Rate from SpO2 Sensor 88 103 H Respiratory Rate 21 18 Respiratory Effort / Characteristics Respiratory Depth Respiratory Pattern Blood Pressure 99/71 L Blood Pressure Mean 79 Pulse Oximetry 97 87 L Oxygen Delivery Method Sepsis Recent Fever Within 48 Hours Sepsis New/Unexplained Change in Mental Status Sepsis Action Taken by Nursing 07/06/23 18:30 07/06/23 18:40 Temperature Temperature Source Pulse Rate 92 H 88 Pulse Rate from SpO2 Sensor 106 H 87 Respiratory Rate 22 17 Respiratory Effort / Characteristics Respiratory Depth Respiratory Pattern Blood Pressure Blood Pressure Mean Pulse Oximetry 84 L 99 Oxygen Delivery Method Sepsis Recent Fever Within 48 Hours Sepsis New/Unexplained Change in Mental Status Sepsis Action Taken by Detention Medications Current Medication List: was personally reviewed by me Laboratory Data Attestation: I reviewed the patient's lab results. 07/06/23 14:34 07/06/23 14:34 Lab Results 07/06/23 07/06/23 07/06/23 Range/Units 14:34 14:34 14:34 WBC 2.53 L (4.8-10.8) K/ul RBC 3.19 L (4.70-6.10) M/uL Hgb 10.0 L (14.0-18.0) g/dl Hct 31.5 L (42.0-52.0) % MCV 98.7 (80.0-100.0) fL MCH 31.3 (25.0-34.0) pg MCHC 31.7 L (32.0-36.0) g/dL RDW Std Deviation 52.2 H (36.4-46.3) fL RDW Coeff of Collin 14.3 (11.5-14.5) % Plt Count 139 (130-400) K/uL MPV 12.3 (9.4-12.4) fL Immature Gran % (Auto) 2.0 % Neut % (Auto) 62.0 % Lymph % (Auto) 10.3 % [place] % (Auto) 22.5 % Eos % (Auto) 2.8 % Baso % (Auto) 0.4 % Neut # (Auto) 1.57 (1.40-6.50) K/uL Lymph # (Auto) 0.26 L (1.20-3.40) K/uL [place] # (Auto) 0.57 (0.11-0.59) K/uL Eos # (Auto) 0.07 (0.00-0.50) K/uL Baso # (Auto) 0.01 (0.00-0.20) K/uL Immature Gran # (Auto) 0.05 (0.01-0.20) K/uL PT 12.9 H (9.0-12.0) Seconds INR 1.2 H (0.9-1.1) APTT 28.3 (21.0-31.0) Seconds PTT Ratio 1.0 D-Dimer 960 H* (0-500) ug/L FEU VBG pH (7.36-7.41) VBG pCO2 (38-50) mmHg VBG pO2 mmHg VBG HCO3 mmol/L VBG O2 Saturation % VBG Base Excess mEq/L Sodium 137 (136-145) mmol/L Potassium 4.0 (3.5-5.1) mmol/L Chloride 105 (98-107) mmol/L Carbon Dioxide 20 L (21-32) mmol/L Anion Gap 12 H (3-11) BUN 28 H (6-23) mg/dl Creatinine 1.56 H (0.6-1.4) mg/dl Est Cr Clr Drug Dosing Not Reportable Est GFR ( Amer) 48.9 ml/min Est GFR (Non-Af Amer) 42.2 ml/min BUN/Creatinine Ratio 17.9 (10-20) Glucose 224 H (70-99(Fasting)) mg/dl Lactate (0.4-2.0) mmol/L Calcium 8.3 L (8.6-10.3) mg/dl Total Bilirubin 1.1 H (0.2-1.0) mg/dl AST 98 H (13-39) U/L ALT 119 H (7-52) U/L Alkaline Phosphatase 74 (34-104) U/L Troponin I High Sens 109.0 H* (0-20) pg/ml C-Reactive Protein (0-0.5) mg/dl Total Protein 6.7 (6.0-8.3) gm/dl Albumin 3.7 (3.4-5.0) gm/dl Globulin 3.0 (2.5-4.0) gm/dl Albumin/Globulin Ratio 1.2 (0.9-2) Procalcitonin (0-0.5) ng/ml Digoxin (0.8-2.0) ng/ml 07/06/23 07/06/23 07/06/23 Range/Units 14:34 14:34 16:54 WBC (4.8-10.8) K/ul RBC (4.70-6.10) M/uL Hgb (14.0-18.0) g/dl Hct (42.0-52.0) % MCV (80.0-100.0) fL MCH (25.0-34.0) pg MCHC (32.0-36.0) g/dL RDW Std Deviation (36.4-46.3) fL RDW Coeff of Collin (11.5-14.5) % Plt Count (130-400) K/uL MPV (9.4-12.4) fL Immature Gran % (Auto) % Neut % (Auto) % Lymph % (Auto) % [place] % (Auto) % Eos % (Auto) % Baso % (Auto) % Neut # (Auto) (1.40-6.50) K/uL Lymph # (Auto) (1.20-3.40) K/uL [place] # (Auto) (0.11-0.59) K/uL Eos # (Auto) (0.00-0.50) K/uL Baso # (Auto) (0.00-0.20) K/uL Immature Gran # (Auto) (0.01-0.20) K/uL PT (9.0-12.0) Seconds INR (0.9-1.1) APTT (21.0-31.0) Seconds PTT Ratio D-Dimer (0-500) ug/L FEU VBG pH 7.35 L (7.36-7.41) VBG pCO2 38 (38-50) mmHg VBG pO2 16 mmHg VBG HCO3 21 mmol/L VBG O2 Saturation < 60.0 % VBG Base Excess -4.2 mEq/L Sodium (136-145) mmol/L Potassium (3.5-5.1) mmol/L Chloride (98-107) mmol/L Carbon Dioxide (21-32) mmol/L Anion Gap (3-11) BUN (6-23) mg/dl Creatinine (0.6-1.4) mg/dl Est Cr Clr Drug Dosing Est GFR ( Amer) ml/min Est GFR (Non-Af Amer) ml/min BUN/Creatinine Ratio (10-20) Glucose (70-99(Fasting)) mg/dl Lactate (0.4-2.0) mmol/L Calcium (8.6-10.3) mg/dl Total Bilirubin (0.2-1.0) mg/dl AST (13-39) U/L ALT (7-52) U/L Alkaline Phosphatase (34-104) U/L Troponin I High Sens 96.9 H* D (0-20) pg/ml C-Reactive Protein (0-0.5) mg/dl Total Protein (6.0-8.3) gm/dl Albumin (3.4-5.0) gm/dl Globulin (2.5-4.0) gm/dl Albumin/Globulin Ratio (0.9-2) Procalcitonin (0-0.5) ng/ml Digoxin 0.6 L (0.8-2.0) ng/ml 07/06/23 07/06/23 07/06/23 Range/Units 16:54 17:33 18:11 WBC (4.8-10.8) K/ul RBC (4.70-6.10) M/uL Hgb (14.0-18.0) g/dl Hct (42.0-52.0) % MCV (80.0-100.0) fL MCH (25.0-34.0) pg MCHC (32.0-36.0) g/dL RDW Std Deviation (36.4-46.3) fL RDW Coeff of Collin (11.5-14.5) % Plt Count (130-400) K/uL MPV (9.4-12.4) fL Immature Gran % (Auto) % Neut % (Auto) % Lymph % (Auto) % [place] % (Auto) % Eos % (Auto) % Baso % (Auto) % Neut # (Auto) (1.40-6.50) K/uL Lymph # (Auto) (1.20-3.40) K/uL [place] # (Auto) (0.11-0.59) K/uL Eos # (Auto) (0.00-0.50) K/uL Baso # (Auto) (0.00-0.20) K/uL Immature Gran # (Auto) (0.01-0.20) K/uL PT (9.0-12.0) Seconds INR (0.9-1.1) APTT (21.0-31.0) Seconds PTT Ratio D-Dimer (0-500) ug/L FEU VBG pH (7.36-7.41) VBG pCO2 (38-50) mmHg VBG pO2 mmHg VBG HCO3 mmol/L VBG O2 Saturation % VBG Base Excess mEq/L Sodium (136-145) mmol/L Potassium (3.5-5.1) mmol/L Chloride (98-107) mmol/L Carbon Dioxide (21-32) mmol/L Anion Gap (3-11) BUN (6-23) mg/dl Creatinine (0.6-1.4) mg/dl Est Cr Clr Drug Dosing Est GFR ( Amer) ml/min Est GFR (Non-Af Amer) ml/min BUN/Creatinine Ratio (10-20) Glucose (70-99(Fasting)) mg/dl Lactate 1.4 (0.4-2.0) mmol/L Calcium (8.6-10.3) mg/dl Total Bilirubin (0.2-1.0) mg/dl AST (13-39) U/L ALT (7-52) U/L Alkaline Phosphatase (34-104) U/L Troponin I High Sens (0-20) pg/ml C-Reactive Protein 7.32 H (0-0.5) mg/dl Total Protein (6.0-8.3) gm/dl Albumin (3.4-5.0) gm/dl Globulin (2.5-4.0) gm/dl Albumin/Globulin Ratio (0.9-2) Procalcitonin 0.17 (0-0.5) ng/ml Digoxin (0.8-2.0) ng/ml Administered Medications Apixaban (Apixaban 5 Mg Tablet) 5 mg PO BID RIVERA Stop: 08/05/23 21:02 Last Admin: 07/06/23 22:23 Dose: 5 mg Documented By: CR Calcium/Vitamin D (Calcium 600mg + Vit D 400 Iu Tab) 1 tab PO BID RIVERA Stop: 08/05/23 21:29 Last Admin: 07/06/23 22:23 Dose: 1 tab Documented By: CR Docusate Sodium (Docusate Sodium 100 Mg Cap) 100 mg PO BID RIVERA Stop: 08/05/23 21:14 Last Admin: 07/06/23 22:23 Dose: 100 mg Documented By: CR Fish Oil ([place]-3 (Purified Fish Oil) 1 Gm Cap) 1 gm PO BID RIVERA Stop: 08/05/23 21:14 Last Admin: 07/06/23 22:24 Dose: 1 gm Documented By: CR Gabapentin (Gabapentin 300 Mg Cap) 300 mg PO AMHS RIVERA Stop: 08/05/23 21:14 Last Admin: 07/06/23 22:23 Dose: 300 mg Documented By: RYNE Cefepime HCl 2,000 mg/ Syringe 20 mls @ 5 mls/min IV Q12H [facility]; Protocol Stop: 07/13/23 07:59 Last Admin: 07/06/23 22:24 Dose: 5 mls/min Documented By: RYNE Metoprolol Succinate (Metoprolol Succ 50mg Ext Rel Tab) 50 mg PO HS [facility] Stop: 08/05/23 21:29 Last Admin: 07/06/23 22:23 Dose: 50 mg Documented By: CR Mirtazapine (Mirtazapine Tab 15 Mg Tab) 30 mg PO HS [facility] Stop: 08/05/23 21:14 Last Admin: 07/06/23 22:23 Dose: 30 mg Documented By: RYNE Potassium Chloride (Potassium Chloride Crtab 20 Meq Tabcr) 20 meq PO BID RIVERA Stop: 08/05/23 21:14 Last Admin: 07/06/23 22:23 Dose: 20 meq Documented By: RYNE Discontinued Medications Ceftriaxone Sodium (Rocephin) 2,000 mg in 70 mls @ 140 mls/hr IV NOW STA Stop: 07/06/23 17:55 Last Infusion: 07/06/23 19:46 Dose: 0 mls/hr Documented By: Admin: 07/06/23 18:39 Dose: 140 mls/hr Documented By: LOU Vancomycin HCl 1,750 mg/ (Sodium Chloride) 535 mls @ 200 mls/hr IV NOW STA Stop: 07/06/23 22:12 Last Infusion: 07/06/23 22:34 Dose: 0 mls/hr Documented By: Admin: 07/06/23 19:53 Dose: 200 mls/hr Documented By: LOU Cefepime HCl 2,000 mg/ Syringe 20 mls @ 5 mls/min IV NOW STA; Protocol Stop: 07/06/23 19:41 Last Admin: 07/06/23 20:14 Dose: 5 mls/min Documented By: LOU Ioversol (Optiray 320 125ml) 118 ml IV ONCE ONE Stop: 07/06/23 16:44 Last Admin: 07/06/23 16:43 Dose: 118 ml Documented By: MAYELA Miscellaneous (Patient's Height &/Or Weight Needed) 1 each N/A NOW STA Stop: 07/06/23 19:11 Last Admin: 07/06/23 19:23 Dose: 1 each Documented By: LOU Imaging Data Attestation: I personally reviewed and interpreted this imaging study as follows : My Impression: 1 view chest x-ray was obtained in the emergency department. My interpretation is no free air, final report below. CT angiography of the chest was obtained in the emergency department. My interpretation is infiltrate was noted, final report below. Radiologist's Impression: Chest X-Ray 07/06/23 13:34 XR chest 1V not portable CLINICAL HISTORY: Chest pain, nonspecific TECHNIQUE: Single frontal radiograph of the chest was obtained. Comparison: Comparison is made to chest radiograph 06/25/2023 FINDINGS: Median sternotomy wires are unchanged. Dual lead pacemaker is noted. Calcified aortic knob is seen. Right upper lung airspace opacity is seen compatible with No evidence of pleural effusion or pneumothorax. IMPRESSION: No acute chest disease. ACT 112: Negative or not required by law. Electronically signed by: Tacho Lambert M.D. 07/06/2023 2:13 PM Chest CTA 07/06/23 15:35 CT angio chest PE protocol CLINICAL HISTORY: PE TECHNIQUE: Multidetector row helical CT of the chest was performed with angiographic protocol. Coronal and sagittal reformations were obtained. Coronal and sagittal MIPS were obtained from the axial data set and were submitted for review. Automated dose lowering techniques and/or adjustment according to patient size were utilized for this exam. CT DOSE: 692.29 mGy.cm Comparison: Comparison is made to CT chest 07/05/2020 FINDINGS: Lungs and pleura: Emphysema, bronchiectasis, and interstitial thickening noted. Airspace opacity is seen at the right upper lobe. Heart and pericardium: Cardiomegaly is seen with biatrial enlargement. Implanted pacemaker is seen. Vessels: No evidence of pulmonary embolism. Mediastinum and josé: Unremarkable. Chest wall and lower neck: Unremarkable. Abdomen: Unremarkable. Bones: Degenerative changes of the thoracic spine. Old healed rib fractures are seen. IMPRESSION: 1. No acute abnormality and in particular no evidence of pulmonary embolus. 2. Airspace opacity is in the right upper lobe which may represent pneumonia. No evidence of interstitial pulmonary edema. 3. Redemonstration of emphysema and interstitial lung disease. Cardiomegaly and pacemaker. ACT 112: Negative or not required by law. Electronically signed by: Tacho Lambert M.D. 07/06/2023 5:07 PM Discharge Plan Visit Data Chief Complaint: Shortness of Breath/Dyspnea Stated Complaint: SOB ED Provider: Dutch Saleem Discharge Problem: Pneumonia, SOB (shortness of breath) Patient Disposition: Admitted As Inpatient Discharge Instructions Interventions: ED Discharge Assessment Last Done: 07/06/23 20:43
[2023-07-06 14:54] LABS: Base Excess VBG -4.2 mEq/L; HCO3 VBG 21 mmol/L; Oxygen Saturation VBG < 60.0 %; PCO2 VBG 38 mmHg (38-50); PO2 VBG 16 mmHg; pH VBG 7.35 (7.36-7.41)
[2023-07-06 15:16] LABS: Alanine Aminotransferase 119 U/L (7-52); Albumin Globulin Ratio 1.2 (0.9-2); Albumin Level 3.7 gm/dl (3.4-5.0); Alkaline Phosphatase 74 U/L (34-104); Anion Gap 12 (3-11); Aspartate Aminotransferase 98 U/L (13-39); BUN Creatinine Ratio 17.9 (10-20); Bilirubin,Total 1.1 mg/dl (0.2-1.0); Blood Urea Nitrogen 28 mg/dl (6-23); Calcium 8.3 mg/dl (8.6-10.3); Carbon Dioxide 20 mmol/L (21-32); Chloride 105 mmol/L (98-107); Est GFR (African American) 48.9 ml/min; Est GFR (Non-African American) 42.2 ml/min; Glucose 224 mg/dl (70-99(Fasting)); Sodium 137 mmol/L (136-145); Total Protein 6.7 gm/dl (6.0-8.3)
[2023-07-06 15:18] LABS: Basophils # (auto) 0.01 K/uL (0.00-0.20); Basophils % (auto) 0.4 %; Eosinophils # (auto) 0.07 K/uL (0.00-0.50); Eosinophils % (auto) 2.8 %; Hematocrit (blood only) 31.5 % (42.0-52.0); Immature Granulocytes # (auto) 0.05 K/uL (0.01-0.20); Lymphocytes # (auto) 0.26 K/uL (1.20-3.40); Lymphocytes % (auto) 10.3 %; Mean Corpuscular Hemoglobin 31.3 pg (25.0-34.0); Mean Corpuscular Hgb Conc 31.7 g/dL (32.0-36.0); Mean Corpuscular Volume 98.7 fL (80.0-100.0); Mean Platelet Volume 12.3 fL (9.4-12.4); Monocytes # (auto) 0.57 K/uL (0.11-0.59); Monocytes % (auto) 22.5 %; Neutrophils # (auto) 1.57 K/uL (1.40-6.50); Platelet Count 139 K/uL (130-400); RDW Coefficient of Variation 14.3 % (11.5-14.5); RDW Standard Deviation 52.2 fL (36.4-46.3); Red Blood Count 3.19 M/uL (4.70-6.10); White Blood Count 2.53 K/ul (4.8-10.8)
[2023-07-06 15:27] LABS: INR 1.2 (0.9-1.1); Partial Thromboplastin Time 28.3 Seconds (21.0-31.0); Prothrombin Time 12.9 Seconds (9.0-12.0)
[2023-07-06 15:35] LABS: D Dimer 960 ug/L FEU (0-500)
[2023-07-06] MEDS ORDERED: OPTIRAY 320 125ml IV ONE (16:43)
--- NOTE | 2023-07-06 17:09 | CT Scan Report ---
CT angio chest PE protocol CLINICAL HISTORY: PE TECHNIQUE: Multidetector row helical CT of the chest was performed with angiographic protocol. Cano l and sagittal reformations were obtained. Coronal and sagittal MIPS were obtained from the axial eder a set and were submitted for review. Automated dose lowering techniques and/or adjustment according to patient size were utilized for this exam. CT DOSE: 692.29 mGy.cm Comparison: Comparison is made to CT chest 07/05/2020 FINDINGS: Lungs and pleura: Emphysema, bronchiectasis, and interstitial thickening noted. Airspace opacity is s een at the right upper lobe. Heart and pericardium: Cardiomegaly is seen with biatrial enlargement. Implanted pacemaker is seen. Vessels: No evidence of pulmonary embolism. Mediastinum and josé: Unremarkable. Chest wall and lower neck: Unremarkable. Abdomen: Unremarkable. Bones: Degenerative changes of the thoracic spine. Old healed rib fractures are seen. IMPRESSION: 1. No acute abnormality and in particular no evidence of pulmonary embolus. 2. Airspace opacity is in the right upper lobe which may represent pneumonia. No evidence of interst itial pulmonary edema. 3. Redemonstration of emphysema and interstitial lung disease. Cardiomegaly and pacemaker. ACT 112: Negative or not required by law. Electronically signed by: Tacho Lambert M.D. 07/06/2023 5:07 PM
[2023-07-06] MEDS ORDERED: cefTRIAXone SODIUM 2,000 MG/70 ML BAG IV STA (17:26)
--- NOTE | 2023-07-06 18:44 | History & Physical Report ---
Date of Service July 06, 2023 Assessment & Plan (1) Hospital acquired PNA: (2) Chronic heart failure with reduced ejection fraction and diastolic dysfunction: (3) Anemia: (4) Tachy-noman syndrome: (5) Elevated troponin: (6) Ischemic cardiomyopathy: (7) HTN (hypertension): (8) Leg wound, left: (9) Multiple myeloma: (10) Type 2 diabetes mellitus: (11) CAD (coronary artery disease): (12) HLD (hyperlipidemia): (13) Pacemaker: (14) ABDI (acute kidney injury): Plan This is a 78-year-old male with PMH of chronic systolic CHF, chronic ischemic heart disease, HTN, HLD, CAD s/p CABG, history of STEMI, paroxysmal A-fib, SSS s/p pacemaker, DM type II, peripheral neuropathy, GERD, CKD, multiple myeloma on Darzalex, revlimid and decadron, last treatment was on 05/25/2023 (currently being held), emphysema, interstitial lung disease, h/o opioid-induced constipation and other medical problems who presents with worsening shortness of breath and found to have RUL PNA in setting of recent hospitalization. Dyspnea on exertion RUL PNA Likely multifactorial secondary to A-fib RVR, demand ischemia, chronic interstitial lung disease, emphysema and anemia and now RUL opacity on CTA chest suggestive of PNA Chest CTA with airspace opacity is in the right upper lobe which may represent pneumonia Appears non-septic, procal and lactate WNL, resp biofire pending Will cover with Cefepime, vanco for hospital acquired PNA Incentive spirometry Atrial fibrillation HR 114 on arrival but improved HR to 80s-90s during time of evaluation Per cardiology on recent admission, Toprol increased to 75mg qAM and 50mg qPM, digoxin every other day H/O orthostatic hypotension, near syncope, amiodarone ineffective Continue Eliquis for anticoagulation Appreciate cardiology input Chronic systolic HF 2D echo from earlier this month with reduced EF 35-40%, and large wall motion abn. with hypokinesis of the basal inferoseptum, inferior wall at the basal and mid levels and basal level of the inferior lateral wall Cardiology started 40mg PO Lasix MoWeFr, patient has been compliant Appears euvolemic in exam, will continue home lasix ABDI Cr 1.57 (Cr 1.27 at time of discharge on 06/30, was previously 1-1.2 since beginning of 2022) Continue to monitor, avoid nephrotoxic agents when able Daily BMP Left Foot Wound infection-POA Chronic, following with the wound clinic Pressure offloading with CAM boot Wound culture from 06/25 growing Klebsiella, Enterobacter No growth on most recent blood culture Discharged on Cipro to complete course, has 3 doses remaining. Adequate coverage with abx above Wound care nurse consulted Chronic troponin elevation History of CAD Denies any chest pain, initial HS trop 109 --> 96.9 Echo on previous admission as above Initial EKG with worsened appearance of lateral ST depression but repeat EKG more similar to previous Continue to monitor, repeat EKG in AM, trend trop Continue Toprol, atorvastatin Chronic Interstitial lung disease Emphysema Saturating well on room air, no wheezing on exam Recommend follow-up with pulmonology as outpatient SSS s/p pacemaker Multiple Myeloma IgA kappa with lytic bone lesions Initially dx 08/18/2021 with BM biopsy. Currently undergoing chemotherapy with Darzalex , revlimid and decadron Last received chemo 05/25 Was not given treatment yesterday due to SOB and hypotension Continue morphine IR 15 mg for pain, gabapentin 300 mg BID with bowel regimen DM II Last A1C was 6.6 on 06/14/23 Hold home agents Basal/bolus insulin while in-patient BSG AC HS DVT Ppx: Eliquis Code status: DNR/DNI PCP: Sima Macario Dispo: Admitted to PCU Patient seen in collaboration with Dr. Echeverria. Please see addendum. History of Present Illness Chief Complaint: SOB Primary Care Provider: Landen Macario, This is a 78-year-old male with PMH of chronic systolic CHF, chronic ischemic heart disease, HTN, HLD, CAD s/p CABG, history of STEMI, paroxysmal A-fib, SSS s/p pacemaker, DM type II, peripheral neuropathy, GERD, CKD, multiple myeloma on Darzalex, revlimid and decadron, last treatment was on 05/25/2023 (currently being held), emphysema, interstitial lung disease, h/o opioid-induced constipation and other medical problems who presents with worsening shortness of breath. Over the past few days, patient with significant dyspnea on exertion to the point that he is short of breath even walking to the bathroom. Can normally walk up a flight of stairs without issue. Denies any fever, chills, sore throat, congestion or known recent sick contacts. Denies any chest pain, palpitations, lightheadedness. No headache, wheezing, nausea, vomiting, abdominal pain, dysuria, diarrhea or constipation. Was recently admitted to our service from 06/25-06/30 for A-fib with RVR, chronic heart failure with reduced ejection fraction, ABDI and left foot wound. Was evaluated by cardiology during admission with 2D echo showing EF of 35 to 40% with large wall motion abnormality unchanged from previous. Was discharged on Toprol 75 mg every morning and 50 every afternoon and Lasix 40 mg MoWeFr with cardiology follow-up next week. Left foot wound grew Klebsiella and Enterobacter and was transition from Rocephin to Cipro at time of discharge and has completed all but 3 doses of antibiotic. Has been complaining wound care by changing dressing every other day with foot in Cam boot. Shortness of breath felt to be multifactorial given chronic ILD, emphysema, CAD and anemia secondary to multiple myeloma. Was seen by heme-onc yesterday and per chart review, states he did not reveive to to SOB and low BP. Last received chemotherapy regimen of Darzalex, revlimid and decadron on 05/25/23. Allergies Allergy/AdvReac Type Severity Reaction Status Date / Time tizanidine Allergy Unknown UNKNOWN--ON Verified 06/25/23 13:38 [facility] [place] Medications Medication Instructions Recorded Confirmed Type apixaban 5 mg tablet (Eliquis) 5 mg PO BID 06/25/20 07/06/23 History atorvastatin 40 mg tablet 40 mg PO DAILY 06/25/20 07/06/23 History liraglutide 0.6 mg/0.1 mL (18 mg/3 1.2 mg subcut DAILY 09/30/21 07/06/23 History mL) subcutaneous pen injector (Victoza 2-Jed) ondansetron 8 mg disintegrating 8 mg PO Q8H PRN Nausea 09/30/21 07/06/23 History tablet prochlorperazine maleate 10 mg 10 mg PO Q6H PRN nausea 09/30/21 07/06/23 History tablet polyethylene glycol 3350 17 gram 17 g PO DAILY PRN constipation #15 10/05/21 07/06/23 Rx oral powder packet (Miralax) ea nitroglycerin 0.4 mg sublingual 0.4 mg sublingual .Q 5 MIN PRN 11/01/21 07/06/23 History tablet Chest Pain omega-3 fatty acids 1,000 mg 1,000 mg PO BID 04/15/22 07/06/23 History capsule docusate sodium 100 mg capsule 100 mg PO BID PRN Constipation 04/22/22 07/06/23 History (Colace) gabapentin 300 mg capsule 300 mg PO AMHS 04/22/22 07/06/23 History mecobalamin (vitamin B12) 1,000 1,000 mcg PO DAILY 04/22/22 07/06/23 History mcg chewable tablet (B12 Active) morphine 15 mg immediate release 15 mg PO Q4H PRN Pain 04/22/22 07/06/23 History tablet albuterol sulfate 90 mcg/actuation 2 puff inhalation Q6H PRN 11/04/22 07/06/23 History aerosol inhaler COUGH/SHORT OF BREATH/WHEEZING calcium carbonate 600 mg-vitamin 1 tab PO BID 11/04/22 07/06/23 History D3 10 mcg (400 unit) tablet (Calcium 600 + D(3)) digoxin 125 mcg (0.125 mg) tablet 125 mcg PO Q OTHER DAY 11/04/22 07/06/23 History lenalidomide 10 mg capsule 10 mg PO DIRECTED 11/04/22 07/06/23 History (Revlimid) potassium chloride 20 mEq 20 meq PO BID 11/04/22 07/06/23 History tablet,extended release(part/cryst) sennosides 8.6 mg tablet (senna) 17.2 mg PO HS PRN Constipation 11/04/22 07/06/23 History insulin aspart U-100 100 unit/mL 15 unit subcut TIDM 12/31/22 07/06/23 History (3 mL) subcutaneous pen (Novolog FlexPen U-100 Insulin aspart) insulin glargine 100 unit/mL (3 40 unit subcut QPM 12/31/22 07/06/23 History mL) subcutaneous pen (Basaglar KwikPen U-100 Insulin) dexamethasone 4 mg tablet 20 mg PO WK 06/25/23 07/06/23 History mirtazapine 30 mg tablet 30 mg PO HS 06/25/23 07/06/23 History omeprazole 20 mg capsule,delayed 20 mg PO QAM 06/25/23 07/06/23 History release ciprofloxacin HCl 500 mg tablet 500 mg PO BID #15 tabs 06/30/23 07/06/23 Rx furosemide 40 mg tablet 40 mg PO MoWeFr@0900 #30 tabs 06/30/23 07/06/23 Rx metoprolol succinate 25 mg 25 mg PO UD #30 tabs 06/30/23 07/06/23 Rx tablet,extended release 24 hr metoprolol succinate 50 mg 50 mg PO UD #60 tabs 06/30/23 07/06/23 Rx tablet,extended release 24 hr (Toprol XL) Past Med/Surg History Medical History (Updated 07/06/23 @ 19:32 by Oliva Malagon PA-C) ABDI (acute kidney injury) CAD (coronary artery disease) CHI (closed head injury) Chronic deep vein thrombosis (DVT) Diabetic ulcer of left foot Diarrhea Hallux rigidus of left foot "S/p multiple surgeries" History of basal cell carcinoma History of melanoma in situ History of pilonidal cyst HLD (hyperlipidemia) NSTEMI (non-ST elevated myocardial infarction) Pacemaker Pneumonia Type 2 diabetes mellitus Surgical History History of bone marrow biopsy History of cataract surgery History of foot surgery S/P CABG x 4 S/P Mohs surgery for basal cell carcinoma Status post total hip replacement, left Family History Mother Lymphoma Social History Smoking Status: Never smoker Tobacco Type: Cigarettes Cigarettes Per Day: 1-2 times a month; Second Hand Exposure: No; Do You Dip or Chew Tobacco: No; Hx Alcohol Use: No Hx Substance Use: Yes Prescribed Medications: Marijuana Substance Use Type Other:: has a marijuana card but he states he "... doesnt use it" Preferred Language: Slovak Communication Ability: Effective Visual Impairment: No Limitations Hearing Ability: Normal Equipment [employer] Required: No Beliefs That Will Affect Care: None marital status: Current Living Situation: Spouse current occupational status: retired How many Children do You have: 1 How many Children do You have Comment: Magi lives in [facility]. able to assist with care as needed. Feels Safe at Home: Yes Diet: regular Diet Comment: Trying to gain weight caffeine: No during the past year weight has: decreased > 10 lbs Assistive Devices: Cane, Special Shoe and Walker Review of Systems Review of Systems: At least ten systems reviewed and negative except as noted in the HPI. Physical Exam Physical Exam: General Appearance: WD/WN, vitals as above, NAD, sitting up in bed, pleasant, conversational dyspnea Head: normocephalic, atraumatic Eyes: normal inspection, PERRL, conjunctivae normal, anicteric sclerae ENT: external ear and nose normal, oropharynx normal Neck: normal visual inspection, trachea midline, no thyromegaly Respiratory: increased respiratory effort, crackles at left lung base but otherwise clear to auscultation. No wheeze or rhonchi. No accessory muscle use Cardiovascular: iregular rate and rhythm, no murmur appreciated, normal peripheral pulses, no BLE edema. Vessels: no JVD Chest: normal inspection of chest Abdomen/GI: normal bowel sounds, soft, nontender, no hepatosplenomegaly Extremities/Musculoskeletal: no cyanosis or clubbing, extremities motor strength 5/5. + L cam boot Neurologic: PERRL, EOMI, accommodation nl, no face palsy, no dysarthria, CN's II-XI intact bilaterally and moves all extremities Psychiatric: A+Ox3, euthymic affect Skin: no rashes, normal color, warm/dry Results & Data Results & Data Vital Signs (Past 12 Hours) Vital Signs Temp Pulse Resp BP Pulse Ox O2 Del Method 07/06/23 18:13 88 07/06/23 18:00 90 16 96 Room Air 07/06/23 18:00 109/55 L 07/06/23 17:50 87 16 98 07/06/23 17:40 86 23 97 07/06/23 17:30 88 17 92 07/06/23 17:30 105/57 L 07/06/23 17:20 86 18 97 07/06/23 17:10 85 23 95 07/06/23 17:00 86 18 98 07/06/23 17:00 115/60 07/06/23 16:56 85 22 98 07/06/23 16:56 102/58 L 07/06/23 16:51 101 H 32 H 07/06/23 16:30 87 15 07/06/23 16:20 89 18 07/06/23 16:10 89 21 07/06/23 16:00 89 20 07/06/23 15:50 90 25 H 07/06/23 15:40 89 17 07/06/23 15:30 90 16 07/06/23 15:20 90 22 07/06/23 15:10 90 16 07/06/23 15:00 89 17 07/06/23 14:50 88 16 07/06/23 14:40 90 16 07/06/23 14:30 87 12 07/06/23 14:20 88 29 H 07/06/23 14:18 94 H 13 07/06/23 13:34 98 Room Air 07/06/23 13:34 94 Room Air 07/06/23 14:18 90 07/06/23 13:31 36.9 C 78 18 119/61 97 Room Air Laboratory Results Short CBC 07/06/23 Range/Units 14:34 WBC 2.53 L (4.8-10.8) K/ul Hgb 10.0 L (14.0-18.0) g/dl Hct 31.5 L (42.0-52.0) % Plt Count 139 (130-400) K/uL BMP 07/06/23 14:34 Sodium 137 Potassium 4.0 Chloride 105 Carbon Dioxide 20 L BUN 28 H Creatinine 1.56 H Glucose 224 H Calcium 8.3 L Liver Function 07/06/23 Range/Units 14:34 Total Bilirubin 1.1 H (0.2-1.0) mg/dl AST 98 H (13-39) U/L ALT 119 H (7-52) U/L Alkaline Phosphatase 74 (34-104) U/L Albumin 3.7 (3.4-5.0) gm/dl Diagnostic Findings Chest X-Ray 07/06/23 13:34 XR chest 1V not portable CLINICAL HISTORY: Chest pain, nonspecific TECHNIQUE: Single frontal radiograph of the chest was obtained. Comparison: Comparison is made to chest radiograph 06/25/2023 FINDINGS: Median sternotomy wires are unchanged. Dual lead pacemaker is noted. Calcified aortic knob is seen. Right upper lung airspace opacity is seen compatible with No evidence of pleural effusion or pneumothorax. IMPRESSION: No acute chest disease. ACT 112: Negative or not required by law. Electronically signed by: Tacho Lambert M.D. 07/06/2023 2:13 PM Chest CTA 07/06/23 15:35 CT angio chest PE protocol CLINICAL HISTORY: PE TECHNIQUE: Multidetector row helical CT of the chest was performed with angiographic protocol. Coronal and sagittal reformations were obtained. Coronal and sagittal MIPS were obtained from the axial data set and were submitted for review. Automated dose lowering techniques and/or adjustment according to patient size were utilized for this exam. CT DOSE: 692.29 mGy.cm Comparison: Comparison is made to CT chest 07/05/2020 FINDINGS: Lungs and pleura: Emphysema, bronchiectasis, and interstitial thickening noted. Airspace opacity is seen at the right upper lobe. Heart and pericardium: Cardiomegaly is seen with biatrial enlargement. Implanted pacemaker is seen. Vessels: No evidence of pulmonary embolism. Mediastinum and josé: Unremarkable. Chest wall and lower neck: Unremarkable. Abdomen: Unremarkable. Bones: Degenerative changes of the thoracic spine. Old healed rib fractures are seen. IMPRESSION: 1. No acute abnormality and in particular no evidence of pulmonary embolus. 2. Airspace opacity is in the right upper lobe which may represent pneumonia. No evidence of interstitial pulmonary edema. 3. Redemonstration of emphysema and interstitial lung disease. Cardiomegaly and pacemaker. ACT 112: Negative or not required by law. Electronically signed by: Tacho Lambert M.D. 07/06/2023 5:07 PM ECG Additional Comments: EKG reviewed- Atrial fibrillation ST & T wave abnormality, consider inferolateral ischemia (seen previously). Prolonged QT Abnormal ECG When compared with ECG of 06-JUL-2023 13:45, ST less depressed in Lateral leads Code Status & VTE Plan VTE Prophylaxis Plan VTE Prophylaxis will be ordered: Yes Supervising Physician Co-Signing Physician Notes I have seen and examined the patient and have discussed the case with the provider above. I agree with the assessment and plan as stated. 78-year-old man with complex medical history which includes chronic ischemic heart disease with reduced ejection fraction, CAD status post CABG, paroxysmal atrial fibrillation, pacemaker placement, diabetes with peripheral neuropathy and multiple myeloma on chronic chemotherapy along with underlying emphysema and interstitial lung disease presents with shortness of breath. Recently admitted for atrial fibrillation with rapid trickle response and reports feeling well when he returned home. Over the last 2 days he is reported decreased exercise tolerance. Specifically at baseline he is able to climb a flight of stairs including 13 steps without stopping. He also reports being able to walk throughout [facility] without having too much difficulty. However in the last 2 days he is not able to walk more than 10 to 15 feet without becoming significantly short of breath and having to stop. Denies any cough fevers or other respiratory symptoms. CT chest with contrast reveals pneumonia and no evidence of pulmonary embolus. Pneumonia is in his right upper lobe and he does have evidence of emphysema with large blebs and chronic underlying interstitial lung disease. He is oxygenating in the low 90s on room air and has low normal blood pressure. He is in no acute distress and is well-nourished well-developed. Pulmonary auscultation reveals clear lungs to auscultation throughout with no wheezing or rales but there are fine crackles at the right base posteriorly. Cardiac exam reveals irregularly irregular rhythm with a normal rate of 88. There is no peripheral edema and he examines euvolemic to dry. He does have a cam boot in place to cover a left foot wound and reports this is doing well. Lab work imaging medications reviewed. He has leukopenia and anemia on CBC with an INR of 1.2. Elevated D-dimer 960. Normal blood gas. BMP reveals mild metabolic acidosis in the setting of acute renal failure with a BUN 28 and creatinine 1.56 and a baseline of 0.8. At recent discharge from the hospital (06/30) his creatinine was 1.27. He has a normal lactate. He has a moderate transaminitis with an AST of 98 up from 9 last admission and an ALT of 119 up from 18 last admission highly sensitive troponin is elevated but trending down. Dynamic abnormal EKG findings with improvement on repeat EKG. Reviewed recent echocardiogram. 1. Right upper lobe pneumonia 2. Atrial fibrillation with rapid reticular response 3. Heart failure with reduced ejection fraction and diastolic dysfunction 4. CAD status post CABG 5. Diabetic ulcer of left foot 6. Multiple myeloma on chemotherapy 7. DMII 8. Acute renal failure Agree with broad-spectrum antibiotics including Vanco and cefepime given recent hospitalization and risk factors for MRSA and Pseudomonas, respectively. Consult cardiology for assistance with optimization of therapies for multiple cardiac issues. His dyspnea is likely a combination of pneumonia and his underlying cardiac issues in the setting of interstitial lung disease. Continue to monitor on telemetry. DO Juwan
[2023-07-06] MEDS ORDERED: VANCOMYCIN CONSULT ACTIVE PRN (19:05)
[2023-07-06] MEDS ORDERED: Patient's HEIGHT &/or WEIGHT Needed STA (19:10)
[2023-07-06] MEDS ORDERED: VANCOMYCIN HCL 1,750 MG in SODIUM CHLORIDE 0.9% 500 ML IV STA (19:32)
[2023-07-06] MEDS ORDERED: CEFEPIME 2,000 MG in SYRINGE 0 ML IV STA (19:38)
[2023-07-06 20:00] LABS: Adenovirus PCR Not Detected (NotDetected); Bordetella parapertussis PCR Not Detected (NotDetected); Bordetella pertussis PCR Not Detected (NotDetected); Chlamydia pneumoniae PCR Not Detected (NotDetected); Coronavirus 229E PCR Not Detected (NotDetected); Coronavirus CoV-2 (COVID19)PCR Not Detected (NotDetected); Coronavirus HKU1 PCR Not Detected (NotDetected); Coronavirus NL63 PCR Not Detected (NotDetected); Coronavirus OC43PCR Not Detected (NotDetected); Human Metapneumovirus PCR Not Detected (NotDetected); Influenza A PCR Not Detected (NotDetected); Influenza B PCR Not Detected (NotDetected); Mycoplasma pneumoniae PCR Not Detected (NotDetected); Parainfluenza Virus 1 PCR Not Detected (NotDetected); Parainfluenza Virus 2 PCR Not Detected (NotDetected); Parainfluenza Virus 3 PCR Not Detected (NotDetected); Parainfluenza Virus 4 PCR Not Detected (NotDetected); Respiratory Syncytial VirusPCR Not Detected (NotDetected); Rhinovirus/Enterovirus PCR Not Detected (NotDetected)
[2023-07-06] MEDS ORDERED: ACETAMINOPHEN 325 MG TAB PO PRN (21:03)
[2023-07-06] MEDS ORDERED: GLUCAGON FOR INJ 1 MG VIAL SQ PRN (21:03)
[2023-07-06] MEDS ORDERED: GLUCOSE 40% GEL 15 GM TUBE PO PRN (21:03)
[2023-07-06] MEDS ORDERED: GLUCOSE 10 TAB/TUBE PO PRN (21:03)
[2023-07-06] MEDS ORDERED: SENNA 8.6 MG TAB PO PRN (21:03)
[2023-07-06] MEDS ORDERED: POLYETHYLENE (MIRALAX) 17 GM PACK PO PRN ×2 (21:03)
[2023-07-06] MEDS ORDERED: DEXTROSE 50% 50 ML SYRINGE IV PRN (21:03)
[2023-07-06] MEDS ORDERED: CARBOHYDRATES FOR HYPOGLYCEMIA PO PRN (21:03)
[2023-07-06] MEDS ORDERED: ALBUTEROL HFA 8 GM INHALER INH PRN (21:03)
[2023-07-06] MEDS ORDERED: LANTUS PER UNIT CHARGE SQ SCH (21:15)
[2023-07-06] MEDS: METOPROLOL SUCC 50MG EXT REL TAB PO SCH (22:23)
[2023-07-06] MEDS: POTASSIUM CHLORIDE CRTAB 20 MEQ TABCR PO SCH (22:23)
[2023-07-06] MEDS: MIRTAZAPINE TAB 15 MG TAB PO SCH (22:23)
[2023-07-06] MEDS: APIXABAN 5 MG TABLET PO SCH (22:23)
[2023-07-06] MEDS: DOCUSATE SODIUM 100 MG CAP PO SCH (22:23)
[2023-07-06] MEDS: CALCIUM 600MG + VIT D 400 IU TAB PO SCH (22:23)
[2023-07-06] MEDS: GABAPENTIN 300 MG CAP PO SCH (22:23)
[2023-07-06] MEDS: CEFEPIME 2,000 MG in SYRINGE 0 ML IV SCH (22:24)
[2023-07-06] MEDS: OMEGA-3 (PURIFIED FISH OIL) 1 GM CAP PO SCH (22:24)
[2023-07-06] MEDS: INSULIN ASPART PER UNIT CHARGE SC SCH (22:49)
[2023-07-06] MEDS: LANTUS PER UNIT CHARGE SQ SCH (22:49)
[2023-07-06] MEDS: MoRPHine SULFATE IR 15 MG TAB (IMMEDIATE RELEASE) PO PRN (22:50)
[2023-07-07] MEDS ORDERED: SODIUM CHLORIDE 0.9% 250 ML IV SCH (03:30)
[2023-07-07 03:38] LABS: Basophils # (auto) 0.01 K/uL (0.00-0.20); Basophils % (auto) 0.5 %; Eosinophils # (auto) 0.15 K/uL (0.00-0.50); Eosinophils % (auto) 7.3 %; Hematocrit (blood only) 25.8 % (42.0-52.0); Hemoglobin 8.4 g/dl (14.0-18.0); Immature Granulocytes # (auto) 0.03 K/uL (0.01-0.20); Immature Granulocytes % (auto) 1.5 %; Lymphocytes # (auto) 0.41 K/uL (1.20-3.40); Lymphocytes % (auto) 19.9 %; Mean Corpuscular Hemoglobin 31.6 pg (25.0-34.0); Mean Corpuscular Hgb Conc 32.6 g/dL (32.0-36.0); Mean Platelet Volume 12.2 fL (9.4-12.4); Monocytes # (auto) 0.43 K/uL (0.11-0.59); Monocytes % (auto) 20.9 %; Neutrophils # (auto) 1.03 K/uL (1.40-6.50); Neutrophils % (auto) 49.9 %; Platelet Count 120 K/uL (130-400); RDW Coefficient of Variation 14.4 % (11.5-14.5); RDW Standard Deviation 50.7 fL (36.4-46.3); Red Blood Count 2.66 M/uL (4.70-6.10); White Blood Count 2.06 K/ul (4.8-10.8)
[2023-07-07 03:56] LABS: Albumin Globulin Ratio 1.3 (0.9-2); Albumin Level 3.2 gm/dl (3.4-5.0); BUN Creatinine Ratio 18.8 (10-20); Bilirubin,Total 0.6 mg/dl (0.2-1.0); Calcium 7.5 mg/dl (8.6-10.3); Creatinine Clr Calc Pharmacy 45.6 ml/min; Est GFR (African American) 59.3 ml/min; Est GFR (Non-African American) 51.2 ml/min; Globulin 2.4 gm/dl (2.5-4.0); Magnesium 1.6 mg/dl (1.7-2.4); Potassium 3.6 mmol/L (3.5-5.1); Total Protein 5.6 gm/dl (6.0-8.3)
[2023-07-07] MEDS: MAGNESIUM SULFATE / D5W 1 GM/100 ML BAG IV SCH ×2 (04:37→06:37)
--- NOTE | 2023-07-07 07:52 | Cardiology Consultation ---
Date of Consultation July 07, 2023 Assessment & Plan (1) Pneumonia: (2) Tachy-noman syndrome: (3) Atrial flutter: (4) Pacemaker: (5) Chronic heart failure with reduced ejection fraction and diastolic dysfunction: (6) Ischemic cardiomyopathy: (7) Multiple myeloma: Plan IMPRESSION: -Medically complex 78-year-old male with a past medical CARDIAC history of ischemic cardiomyopathy s/p CABG, tachybrady syndrome status post pacemaker and atrial fibrillation/flutter. Other PMH includes centrilobular emphysema, interstitial lung disease, multiple myeloma treated with Darzalex plus Revlimid and Decadron, and anemia. -Patient represented to [facility] ED due to progressive shortness of breath and was found to have right upper lobe pneumonia following a recent hospitalization -D-dimer elevated, CTA of the chest without evidence of pulmonary embolism -Telemetry revealing atrial fibrillation/flutter, currently rate controlled -High-sensitivity troponins chronically elevated but flat likely in the setting of acute and chronic illness, demand, and renal dysfunction PLAN: -Atrial Flutter: Recurrence of PAF/Flutter in the setting of acute illness. Generally heart rates are well controlled on current regimen 1. Continue metoprolol succinate 75 mg a.m. and 50 mg p.m + Digoxin 0.125 mg every MWF. Room to increase metoprolol dosage. 2. Prior use of amiodarone failed to provide adequate antiarrhythmic control. ? lung toxicity per pulmonary 3. Continue Eliquis 5 mg BID for stroke prevention -HFrEF/ICM: 1. Patient receiving chemotherapeutic treatment for multiple myeloma with Darzalex faspro and Revlimid. Both treatments are associated with peripheral edema. Currently well compensated from a vL standpoint- Continue Lasix 40 mg PO MWF. 2. Additional/titration of evidence-based heart failure therapy limited by chronic borderline resting hypotension with history of orthostatic hypotension and near syncope. - RUL PNA: 3. Treatment per primary team- on IV antibiotics. Case discussed with Dr. Lin- will follow. Supervising Physician Co-Signing Physician Notes Patient was seen and examined, chart, medications, telemetry reviewed. Very complex 78-year-old male presenting with symptoms of increased respiratory demand with activity or exertion, shortness of breath Chest x-ray possible infiltrate/pneumonia right upper lobe Rhythm persistent atrial fibrillation Chronic troponin elevation Course notable for multiple myeloma undergoing chemotherapy Recommendations and plan. Treat potential infectious process Agree with additional furosemide 20 mg IV today Metoprolol succinate has been held this morning we will resume dosing at usual dose Consider addition of spironolactone if blood pressure and fluid status allow History of Present Illness Reason for Consultation: Shortness of breath Requesting Physician: Maddy Hospitalist Attending Physician: Bhavesh Larsen MD History of Present Illness Medically complex 78-year-old male who initially presented to [facility] emergency department due to progressive shortness of breath. Found to have RUL pneumonia per chest CTA-- started on cefepime and vanco per primary service. Telemetry revealing AFIB RVR with rates in the low 100s-110s.-- currently on metoprolol succinate 75 mg AM and 50 mg PM + Digoxin 0.125 mg every other day. Mild decline in renal function-- scr 1.57 (baseline 1.0-1.3) HS troponin elevated at 109>>96.9. Initial EKG on 07/06 showing Afib [address] depression in anterior leads. EKGs this admission showing afib/flutter Recently admitted from 06/25 to 06/30 for progressive shortness of breath. Patient was found to be in atrial fibrillation with RVR. Shortness of breath felt to be multifactorial given chronic ILD, emphysema, CAD and anemia secondary to multiple myeloma. Patient was mildly volumed overloaded--Diuresed with IV Lasix and beta-annika was titrated. Discharged home on metoprolol succinate 75 mg in the morning and 50 mg in the afternoon as well as Lasix 40 mg Wednesday (new med). Of note he also has a left foot wound and was treated with antibiotics. Upon entrance into the room patient resting comfortably in bed. No acute distress. No shortness of breath with any type of activity. No chest pain. Asymptomatic with atrial fibrillation/flutter. Denies palpitations but does describe a "hollowness" to his chest with exertion. Denies any symptoms of fluid retention, no orthopnea or PND. No lower extremity edema. Wound nurse evaluated patient this morning and redressed left foot wound, has a boot that he wears with ambulation. Telemetry: Atrial flutter with intermittent paced beats 70s to 80s Primary outpatient remotely piloted vehicle controller: Dr. Lane Past medical history: 1.Atherosclerotic coronary disease, status post coronary bypass grafting 1993 with BISHOP to LAD, gastroepiploic artery to right PDA, and left radial arterial graft to OM branch vessel. 1.Stable class 1-2 angina pectoris. 2.Atherosclerotic peripheral vascular disease with claudication- follows with vascular surgery 1.Known left popliteal occlusion which would require bypass per most recent vascular surgical note 08/2016 3.Paroxysmal atrial fibrillation with tachy-noman syndrome status post permanent pacemaker implantation April 23, 2020. 1. Prior use of amiodarone (09/2021--03/2022) thought to have caused amiodarone induced lung toxicity per pulmonary, however further investigation showed that it was ineffective as a rhythm control strategy and was dis continued. 4.Hyperlipidemia. 5.Diabetes mellitus. 6.Multiple myeloma, IgA kappa with lytic bone lesions- follows with Hematology 7. Former tobacco use, 2ppd x25 years with COPD and ILD 8. Chronic borderline resting hypotension with history of orthostatic hypotension and near syncope Allergies Allergy/AdvReac Type Severity Reaction Status Date / Time tizanidine Allergy Unknown UNKNOWN--ON Verified 06/25/23 13:38 [facility] [place] Medications Medication Instructions Recorded Confirmed Type apixaban 5 mg tablet (Eliquis) 5 mg PO BID 06/25/20 07/06/23 History atorvastatin 40 mg tablet 40 mg PO DAILY 06/25/20 07/06/23 History liraglutide 0.6 mg/0.1 mL (18 mg/3 1.2 mg subcut DAILY 09/30/21 07/06/23 History mL) subcutaneous pen injector (Victoza 2-Jed) ondansetron 8 mg disintegrating 8 mg PO Q8H PRN Nausea 09/30/21 07/06/23 History tablet prochlorperazine maleate 10 mg 10 mg PO Q6H PRN nausea 09/30/21 07/06/23 History tablet polyethylene glycol 3350 17 gram 17 g PO DAILY PRN constipation #15 10/05/21 07/06/23 Rx oral powder packet (Miralax) ea nitroglycerin 0.4 mg sublingual 0.4 mg sublingual .Q 5 MIN PRN 11/01/21 07/06/23 History tablet Chest Pain omega-3 fatty acids 1,000 mg 1,000 mg PO BID 04/15/22 07/06/23 History capsule docusate sodium 100 mg capsule 100 mg PO BID PRN Constipation 04/22/22 07/06/23 History (Colace) gabapentin 300 mg capsule 300 mg PO AMHS 04/22/22 07/06/23 History mecobalamin (vitamin B12) 1,000 1,000 mcg PO DAILY 04/22/22 07/06/23 History mcg chewable tablet (B12 Active) morphine 15 mg immediate release 15 mg PO Q4H PRN Pain 04/22/22 07/06/23 History tablet albuterol sulfate 90 mcg/actuation 2 puff inhalation Q6H PRN 11/04/22 07/06/23 History aerosol inhaler COUGH/SHORT OF BREATH/WHEEZING calcium carbonate 600 mg-vitamin 1 tab PO BID 11/04/22 07/06/23 History D3 10 mcg (400 unit) tablet (Calcium 600 + D(3)) digoxin 125 mcg (0.125 mg) tablet 125 mcg PO Q OTHER DAY 11/04/22 07/06/23 History lenalidomide 10 mg capsule 10 mg PO DIRECTED 11/04/22 07/06/23 History (Revlimid) potassium chloride 20 mEq 20 meq PO BID 11/04/22 07/06/23 History tablet,extended release(part/cryst) sennosides 8.6 mg tablet (senna) 17.2 mg PO HS PRN Constipation 11/04/22 07/06/23 History insulin aspart U-100 100 unit/mL 15 unit subcut TIDM 12/31/22 07/06/23 History (3 mL) subcutaneous pen (Novolog FlexPen U-100 Insulin aspart) insulin glargine 100 unit/mL (3 40 unit subcut QPM 12/31/22 07/06/23 History mL) subcutaneous pen (Basaglar KwikPen U-100 Insulin) dexamethasone 4 mg tablet 20 mg PO WK 06/25/23 07/06/23 History mirtazapine 30 mg tablet 30 mg PO HS 06/25/23 07/06/23 History omeprazole 20 mg capsule,delayed 20 mg PO QAM 06/25/23 07/06/23 History release ciprofloxacin HCl 500 mg tablet 500 mg PO BID #15 tabs 06/30/23 07/06/23 Rx furosemide 40 mg tablet 40 mg PO MoWeFr@0900 #30 tabs 06/30/23 07/06/23 Rx metoprolol succinate 25 mg 25 mg PO UD #30 tabs 06/30/23 07/06/23 Rx tablet,extended release 24 hr metoprolol succinate 50 mg 50 mg PO UD #60 tabs 06/30/23 07/06/23 Rx tablet,extended release 24 hr (Toprol XL) Patient History Medical History (Updated 07/07/23 @ 10:36 by MADISON Weinberg) ABDI (acute kidney injury) CAD (coronary artery disease) CHI (closed head injury) Chronic deep vein thrombosis (DVT) Diabetic ulcer of left foot Diarrhea Hallux rigidus of left foot "S/p multiple surgeries" History of basal cell carcinoma History of melanoma in situ History of pilonidal cyst HLD (hyperlipidemia) NSTEMI (non-ST elevated myocardial infarction) Pacemaker Pneumonia Type 2 diabetes mellitus Surgical History History of bone marrow biopsy History of cataract surgery History of foot surgery S/P CABG x 4 S/P Mohs surgery for basal cell carcinoma Status post total hip replacement, left Family History Mother Lymphoma Social History Smoking Status: Former smoker Tobacco Type: Cigarettes Cigarettes Per Day: 1-2 times a month; Second Hand Exposure: Yes; Do You Dip or Chew Tobacco: No; Tobacco Cessation Education Requested by Patient: No Hx Alcohol Use: Yes Alcohol type: beer Alcohol Intake Frequency: Monthly or Less Hx Substance Use: No Preferred Language: Taiwanese Communication Ability: Effective Visual Impairment: No Limitations Hearing Ability: Normal Back Feeder Plywood Layup Line Required: No Beliefs That Will Affect Care: None marital status: Current Living Situation: Spouse Current Living Situation Comment: home current occupational status: retired How many Children do You have: 1 How many Children do You have Comment: Magi lives in [facility]. able to assist with care as needed. Other Information That Helps Us Care for You: No (goes to OP wound clinic) Feels Safe at Home: Yes Safety Concerns: Feels Safe At This Time Diet: regular Diet Comment: Trying to gain weight caffeine: No during the past year weight has: decreased > 10 lbs Assistive Devices: Cane, Hospital Bed and Special Shoe Assistive Devices Comment: left walking boot Review of Systems Review of Systems: All systems reviewed & are unremarkable except as noted in HPI & below Physical Exam Constitutional: WD/WN, vitals as above no acute distress Eyes: PERRL, conjunctivae normal, anicteric sclerae Neck: normal visual inspection and trachea midline Respiratory: normal respiratory effort; no respiratory distress and no cough Auscultation: + diminished lung sounds; no rales, no rhonchi and no wheezes Cardiovascular: Rate/Rhythm: regular rate and + irregularly irregular Heart Sounds: normal S1, normal S2 and + murmur (+systolic ) Vessels: no JVD Extremities: no edema Chest (Breasts): Chest: + pacemaker Gastrointestinal (Abdomen): normal bowel sounds, soft, nontender, no hepatosplenomegaly Results & Data Vital Signs (Past 12 Hours) Vital Signs Temp Pulse Pulse Resp BP BP Pulse Ox 07/06/23 22:07 82 07/07/23 04:05 83 107/59 L 07/07/23 02:44 81 89/52 L 07/07/23 02:10 37.1 C 81 16 94/47 L 97 07/06/23 21:30 07/06/23 21:02 36.6 C 82 18 123/70 99 07/06/23 21:03 07/06/23 21:03 36.6 C 82 18 123/70 99 07/06/23 20:30 86 18 100 07/06/23 20:30 101/58 L 07/06/23 20:20 85 18 98 07/06/23 20:10 84 17 92 07/06/23 20:00 87 23 93 07/06/23 20:00 92/65 L 07/06/23 19:50 85 15 100 07/06/23 19:40 88 18 96 Pulse Ox O2 Del Method O2 Del Method 07/06/23 22:07 07/07/23 04:05 07/07/23 02:44 07/07/23 02:10 Room Air 07/06/23 21:30 Room Air 07/06/23 21:02 Room Air 07/06/23 21:03 99 Room Air 07/06/23 21:03 Room Air 07/06/23 20:30 Room Air 07/06/23 20:30 07/06/23 20:20 07/06/23 20:10 07/06/23 20:00 07/06/23 20:00 07/06/23 19:50 07/06/23 19:40 Laboratory Results Cardiac Enzymes 07/06/23 07/06/23 07/06/23 Range/Units 14:34 16:54 21:13 AST 98 H (13-39) U/L Troponin I High Sens 109.0 H* 96.9 H* D 126.5 H* D (0-20) pg/ml 07/07/23 07/07/23 Range/Units 03:17 03:17 AST 135 H (13-39) U/L Troponin I High Sens 103.0 H* (0-20) pg/ml Coagulation 07/06/23 Range/Units 14:34 PT 12.9 H (9.0-12.0) Seconds APTT 28.3 (21.0-31.0) Seconds CBC 07/06/23 07/07/23 Range/Units 14:34 03:17 WBC 2.53 L 2.06 L (4.8-10.8) K/ul RBC 3.19 L 2.66 L (4.70-6.10) M/uL Hgb 10.0 L 8.4 L (14.0-18.0) g/dl Hct 31.5 L 25.8 L (42.0-52.0) % Plt Count 139 120 L (130-400) K/uL Neut # (Auto) 1.57 1.03 L (1.40-6.50) K/uL Lymph # (Auto) 0.26 L 0.41 L (1.20-3.40) K/uL [place] # (Auto) 0.57 0.43 (0.11-0.59) K/uL Eos # (Auto) 0.07 0.15 (0.00-0.50) K/uL Baso # (Auto) 0.01 0.01 (0.00-0.20) K/uL Comprehensive Metabolic Panel 07/06/23 07/07/23 Range/Units 14:34 03:17 Sodium 137 136 (136-145) mmol/L Potassium 4.0 3.6 (3.5-5.1) mmol/L Chloride 105 107 (98-107) mmol/L Carbon Dioxide 20 L 20 L (21-32) mmol/L BUN 28 H 25 H (6-23) mg/dl Creatinine 1.56 H 1.33 (0.6-1.4) mg/dl Glucose 224 H 143 H (70-99(Fasting)) mg/dl Calcium 8.3 L 7.5 L (8.6-10.3) mg/dl AST 98 H 135 H (13-39) U/L ALT 119 H 160 H (7-52) U/L Alkaline Phosphatase 74 75 (34-104) U/L Total Protein 6.7 5.6 L (6.0-8.3) gm/dl Albumin 3.7 3.2 L (3.4-5.0) gm/dl Intake and Output 07/06/23 07/07/23 07/07/23 22:59 06:59 14:59 Intake Total 605 / 1195 590 / 1195 100 / 100 Output Total 700 / 700 Balance 605 / 495 -110 / 495 100 / 100 Intake: IV 605 / 955 350 / 955 100 / 100 Magnesium Sulfate / D5w 1 gm In 100 / 100 100 / 100 100 ml @ 50 mls/hr IV Q2H R[facility]A Rx#:[id number] Sodium Chloride 0.9% 250 ml @ 250 / 250 500 mls/hr IV .Q30M RIVERA Rx#: [id number] Vancomycin HCl 1,750 mg In 535 / 535 Sodium Chloride 0.9% 500 ml @ 200 mls/hr IV NOW STA Rx#: [id number] cefTRIAXone SODIUM 2,000 mg In 70 / 70 70 ml @ 140 mls/hr IV NOW STA Rx#:[id number] Oral 240 / 240 Output: Urine 700 / 700 Other: Weight 69.3 kg 70.3 kg Weight Measurement Method Standing Scale Standing Scale (1) Pneumonia Laterality: right Lung location: upper lobe of lung Pneumonia type: due to unspecified organism Qualified Code(s): J18.9 - Pneumonia, unspecified organism
--- NOTE | 2023-07-07 07:55 | Electrocardiogram Report ---
Test Reason : Blood Pressure : / mmHG Vent. Rate : 076 BPM Atrial Rate : 344 BPM P-R Int : 000 ms QRS Dur : 088 ms QT Int : 380 ms P-R-T Axes : 263 062 201 degrees QTc Int : 427 ms Atrial flutter with variable A-V block Electronic ventricular pacemaker Abnormal ECG When compared with ECG of 06-JUL-2023 18:47, Atrial flutter has replaced Atrial fibrillation Electronic ventricular pacemaker now seen Confirmed by Anjel Wharton ([id number]) on 07/07/2023 7:55:32 AM Referred By: REFERRED SELF Confirmed By:Anjel Wharton
--- NOTE | 2023-07-07 07:56 | Electrocardiogram Report ---
Test Reason : Blood Pressure : / mmHG Vent. Rate : 114 BPM Atrial Rate : 000 BPM P-R Int : 000 ms QRS Dur : 086 ms QT Int : 340 ms P-R-T Axes : 000 072 208 degrees QTc Int : 468 ms Poor data quality, interpretation may be adversely affected Atrial fibrillation with rapid ventricular response Abnormal ECG When compared with ECG of 25-JUN-2023 13:08, HR has increased by 34 bpm Otherwise no significant change Confirmed by Anjel Wharton ([id number]) on 07/07/2023 7:56:22 AM Referred By: Confirmed By:Anjel Wharton
--- NOTE | 2023-07-07 07:57 | Electrocardiogram Report ---
Test Reason : Blood Pressure : / mmHG Vent. Rate : 085 BPM Atrial Rate : 000 BPM P-R Int : 000 ms QRS Dur : 096 ms QT Int : 398 ms P-R-T Axes : 000 059 220 degrees QTc Int : 473 ms Atrial fibrillation Prolonged QT Abnormal ECG When compared with ECG of 06-JUL-2023 13:45, HR has decreased by 29 bpm Otherwise no significant change Confirmed by Anjel Wharton ([id number]) on 07/07/2023 7:57:05 AM Referred By: REFERRED SELF Confirmed By:Anjel Wharton
[2023-07-07 08:02] LABS: Estimated Average Glucose 151 mg/dl; Hemoglobin A1C 6.9 % (4.5-5.6)
[2023-07-07] MEDS: CALCIUM 600MG + VIT D 400 IU TAB PO SCH ×2 (08:48→20:21)
[2023-07-07] MEDS: INSULIN ASPART PER UNIT CHARGE SC SCH ×4 (08:48→20:18)
[2023-07-07] MEDS: MoRPHine SULFATE IR 15 MG TAB (IMMEDIATE RELEASE) PO PRN ×2 (08:48→20:29)
[2023-07-07] MEDS: ATORVASTATIN 40 MG TAB PO SCH (08:48)
[2023-07-07] MEDS: APIXABAN 5 MG TABLET PO SCH ×2 (08:49→20:21)
[2023-07-07] MEDS: DOCUSATE SODIUM 100 MG CAP PO SCH ×2 (08:49→20:21)
[2023-07-07] MEDS: PROCHLORPERAZINE MALEATE 10 MG TAB PO PRN ×2 (08:49→17:33)
[2023-07-07] MEDS: METOPROLOL SUCC 50MG EXT REL TAB PO SCH ×3 (08:49→20:22)
[2023-07-07] MEDS: POTASSIUM CHLORIDE CRTAB 20 MEQ TABCR PO SCH ×2 (08:49→20:23)
[2023-07-07] MEDS: GABAPENTIN 300 MG CAP PO SCH ×2 (08:49→20:22)
[2023-07-07] MEDS: PANTOprazole 40 MG TAB PO SCH (08:49)
[2023-07-07] MEDS: CYANOCOBALAMIN (B-12) 500 MCG TABLET PO SCH (08:49)
[2023-07-07] MEDS: FUROSEMIDE 40 MG TAB PO SCH (08:49)
[2023-07-07] MEDS: OMEGA-3 (PURIFIED FISH OIL) 1 GM CAP PO SCH ×2 (08:49→20:21)
--- NOTE | 2023-07-07 08:51 | Hospitalist Progress Note ---
Date of Service July 07, 2023 Assessment & Plan (1) Hospital acquired PNA: (2) Chronic heart failure with reduced ejection fraction and diastolic dysfunction: (3) Anemia: (4) Tachy-noman syndrome: (5) Elevated troponin: (6) Ischemic cardiomyopathy: (7) HTN (hypertension): (8) Leg wound, left: (9) Multiple myeloma: (10) Type 2 diabetes mellitus: (11) CAD (coronary artery disease): (12) HLD (hyperlipidemia): (13) Pacemaker: (14) ABDI (acute kidney injury): Plan Mr. Hernandez is a 78-year-old gentleman with PMH of chronic systolic CHF, chronic ischemic heart disease, HTN, HLD, CAD s/p CABG, history of STEMI, paroxysmal A- fib, SSS s/p pacemaker, DM type II, peripheral neuropathy, GERD, CKD, multiple myeloma on Darzalex, revlimid and decadron, last treatment was on 05/25/2023 (currently being held), emphysema, interstitial lung disease, h/o opioid-induced constipation and other medical problems who presented with RAYGOZA. Initially thought to be related to RUL PNA iso recent hospitalization, however, procal/clinical presentation less suggestive of infectious eitology but appear more consistent with cardiac process rather than infectious source. Antibiotics will remain for empiric coverage for 48 hours given immunocompromised state; however, patient has other progressive comorbidities that would be prudent to explore as source for presentation. Today, patient remains off O2, but still endorsing RAYGOZA while ambulating/exertional activities. #Elevated Liver enzymes -No GI symptoms at this time, unclear etiology, ?congestive component v hypotension v Rx induced -LFTs in am, hepatitis panel. -Pending RUQ US #Dyspnea on Exertion -Multiple contributing factors; given negative procal, negative Biofire, lack of symptoms out side of RAYGOZA--infection/pneumonia seems less like contributing factor. Patient with ILD, HFrEF, atrial fibrillation with RVR--recently on a cruise and not on GDMT. The CXR appears to have fluid in fissure and more suggestive of edema/trace effusion, rather than pulmonary/infectious source. -Appears non-toxic, saturating well on room air, more supportive that RAYGOZA likely cardiac v pulmonary, though chronic pulm condition contributes to the dyspnea sensation -Plan as follows: -Received PO 40mg Lasix, additional IV 20mg as patient has received multiple fluid bolus in IV Rx administration -Cardiology consult -Plan for ambulatory pulse oximetry, ?O2 requirements on exertion, ?progression of pulm process--if cardiac work up negative, plan pulm consult to ensure patient optimize prior to dispo -Reevaluated and discontinue Cefepime likely 07/08 if no other clear infectious source #Acute on Chronic Heart Failure with reduced EF (35-40% 06/2023) 2/2 ICM #Severe Multivessel Coronary Artery Disease s/p CABG 1993 (BISHOP-LAD, gastroepiploic to RPDA, graft to OM) #Atrial fibrillation with tachy-noman syndrome s/p PPM 2019 -Not able to tolerate GDMT 2/2 hypotension ?failed graft given history of CABG and large wall motion abnormalities; recent cruise, lack of GDMT likely worsening progressive HF -On digoxin, level 0.6 -Continue apixaban and metorpolol succinate 75 qam/ 50 qpm, and digoxin 0.125 every other day -Cardiology on consult apprecaite recommendation -Continued PO Lasix 40mg MWF -Continue statin -Remain on Tele -S/p IV lasix 20mg -Ordered BNP #Elevated Troponin -No active ACS at this time #Chronic Hypotension #Prior hypertension -Appears to be progressive over course of last year -Monitor hemodynamics #Chronic Interstitial Lung Disease Patient without hypoxia, procal normal, Continue to monitor O2 requirements #Peripheral Arterial Disease c/b left popliteal occlusion #Chronic ulceration left forefoot -Appears non-infectious, signs of healing/granulation tissue, no purulence -Wound care -Completed course of PO abx +inpatient administration of abx: cipro +2 days cefepime for Klebsiella/Enterobacter #ABDI on CKD Stage II Cr 1.57 (Cr 1.27 at time of discharge on 06/30, was previously 1-1.2 since beginning of 2022) Continue to monitor, avoid nephrotoxic agents when able Daily BMP #Chronic Pancytopenia #Mild Neutropenia #Multiple Myeloma IgA kappa with lytic bone lesions Initially dx 08/18/2021 with BM biopsy. Currently undergoing chemotherapy with Darzalex , revlimid and decadron Last received chemo 05/25: Followed yesterday with Dr. Garcia, took last dose of revlimid yesterday (possibly explaining pancytopenia), however given decline in performance status/infection, further treatment with Darzalex held Continue morphine IR 15 mg for pain, gabapentin 300 mg BID with bowel regimen Neutropenic precautions, monitor ANC if need to transition to neutropenic diet fro ANC <500 #DM II Last A1C 6.9 Hold home agents Basal/bolus insulin while in-patient BSG AC HS DVT Ppx: Eliquis Code status: DNR/DNI PCP: Sima Macario Dispo: Admitted to PCU Patient seen in collaboration with Dr. Echeverria. Please see addendum. Admission and Anticipated Discharge Date Admission Date: July 06, 2023 Subjective NAEO Patient relatively asymptomatic outside of exertional concerns. Denies fevers, chills, weakness, cough, fatigue. Endorses limitation with movement and ambulation due to dyspnea. Denies GI concerns, no RUQ tenderness or pre/post prandial discomfort. Review of Systems Review of Systems: All systems reviewed & are unremarkable except as noted in Subjective Physical Exam Constitutional: laying in bed, no respiratory distress Respiratory: decreased peripheral breath sounds, cannot appreciate any crackles/wheezes Cardiovascular: irregular ? EDU Skin: left circumferential wound on sole of left forefoot, epithelialization, no infectious signs Neurologic: PERRL, EOMI, accommodation nl, no face palsy, no dysarthria Results & Data Results & Data Vital Signs (Past 12 Hours) Vital Signs Temp Pulse Pulse Resp BP Pulse Ox Pulse Ox 07/07/23 08:02 36.8 C 69 18 94/55 L 93 07/06/23 22:07 82 07/07/23 04:05 83 107/59 L 07/07/23 02:44 81 89/52 L 07/07/23 02:10 37.1 C 81 16 94/47 L 97 07/06/23 21:30 07/06/23 21:02 36.6 C 82 18 123/70 99 07/06/23 21:03 99 07/06/23 21:03 36.6 C 82 18 123/70 99 O2 Del Method O2 Del Method 07/07/23 08:02 Room Air 07/06/23 22:07 07/07/23 04:05 07/07/23 02:44 07/07/23 02:10 Room Air 07/06/23 21:30 Room Air 07/06/23 21:02 Room Air 07/06/23 21:03 Room Air 07/06/23 21:03 Room Air Laboratory Results Short CBC 07/06/23 07/07/23 Range/Units 14:34 03:17 WBC 2.53 L 2.06 L (4.8-10.8) K/ul Hgb 10.0 L 8.4 L (14.0-18.0) g/dl Hct 31.5 L 25.8 L (42.0-52.0) % Plt Count 139 120 L (130-400) K/uL BMP 07/06/23 07/07/23 14:34 03:17 Sodium 137 136 Potassium 4.0 3.6 Chloride 105 107 Carbon Dioxide 20 L 20 L BUN 28 H 25 H Creatinine 1.56 H 1.33 Glucose 224 H 143 H Calcium 8.3 L 7.5 L Liver Function 07/06/23 07/07/23 Range/Units 14:34 03:17 Total Bilirubin 1.1 H 0.6 D (0.2-1.0) mg/dl AST 98 H 135 H (13-39) U/L ALT 119 H 160 H (7-52) U/L Alkaline Phosphatase 74 75 (34-104) U/L Albumin 3.7 3.2 L (3.4-5.0) gm/dl Medications Administered Home Medications Medication Instructions Recorded Confirmed Last Taken apixaban 5 mg tablet (Eliquis) 5 mg PO BID 06/25/20 07/06/23 07/06/23 09:00 atorvastatin 40 mg tablet 40 mg PO DAILY 06/25/20 07/06/23 07/06/23 09:00 liraglutide 0.6 mg/0.1 mL (18 mg/3 1.2 mg subcut DAILY 09/30/21 07/06/23 07/06/23 10:00 mL) subcutaneous pen injector (Victoza 2-Jed) ondansetron 8 mg disintegrating 8 mg PO Q8H PRN Nausea 09/30/21 07/06/23 Unknown tablet prochlorperazine maleate 10 mg 10 mg PO Q6H PRN nausea 09/30/21 07/06/23 Unknown tablet polyethylene glycol 3350 17 gram 17 g PO DAILY PRN constipation #15 10/05/21 07/06/23 10/08/21 oral powder packet (Miralax) ea nitroglycerin 0.4 mg sublingual 0.4 mg sublingual .Q 5 MIN PRN 11/01/21 07/06/23 Unknown tablet Chest Pain omega-3 fatty acids 1,000 mg 1,000 mg PO BID 04/15/22 07/06/23 07/06/23 09:00 capsule docusate sodium 100 mg capsule 100 mg PO BID PRN Constipation 04/22/22 07/06/23 Unknown (Colace) gabapentin 300 mg capsule 300 mg PO AMHS 04/22/22 07/06/23 07/06/23 09:00 mecobalamin (vitamin B12) 1,000 1,000 mcg PO DAILY 04/22/22 07/06/23 07/06/23 09:00 mcg chewable tablet (B12 Active) morphine 15 mg immediate release 15 mg PO Q4H PRN Pain 04/22/22 07/06/23 Unknown tablet albuterol sulfate 90 mcg/actuation 2 puff inhalation Q6H PRN 11/04/22 07/06/23 06/25/23 aerosol inhaler COUGH/SHORT OF BREATH/WHEEZING calcium carbonate 600 mg-vitamin 1 tab PO BID 11/04/22 07/06/23 07/06/23 09:00 D3 10 mcg (400 unit) tablet (Calcium 600 + D(3)) digoxin 125 mcg (0.125 mg) tablet 125 mcg PO Q OTHER DAY 11/04/22 07/06/23 07/05/23 lenalidomide 10 mg capsule 10 mg PO DIRECTED 11/04/22 07/06/23 Unknown (Revlimid) potassium chloride 20 mEq 20 meq PO BID 11/04/22 07/06/23 07/06/23 09:00 tablet,extended release(part/cryst) sennosides 8.6 mg tablet (senna) 17.2 mg PO HS PRN Constipation 11/04/22 07/06/23 Unknown insulin aspart U-100 100 unit/mL 15 unit subcut TIDM 12/31/22 07/06/23 07/06/23 09:00 (3 mL) subcutaneous pen (Novolog FlexPen U-100 Insulin aspart) insulin glargine 100 unit/mL (3 40 unit subcut QPM 12/31/22 07/06/23 06/24/23 mL) subcutaneous pen (Basaglar KwikPen U-100 Insulin) dexamethasone 4 mg tablet 20 mg PO WK 06/25/23 07/06/23 06/22/23 mirtazapine 30 mg tablet 30 mg PO HS 06/25/23 07/06/23 06/24/23 omeprazole 20 mg capsule,delayed 20 mg PO QAM 06/25/23 07/06/23 07/06/23 09:00 release ciprofloxacin HCl 500 mg tablet 500 mg PO BID #15 tabs 06/30/23 07/06/23 07/06/23 09:00 furosemide 40 mg tablet 40 mg PO MoWeFr@0900 #30 tabs 06/30/23 07/06/23 Unknown metoprolol succinate 25 mg 25 mg PO UD #30 tabs 06/30/23 07/06/23 07/06/23 09:00 tablet,extended release 24 hr metoprolol succinate 50 mg 50 mg PO UD #60 tabs 06/30/23 07/06/23 Unknown tablet,extended release 24 hr (Toprol XL) Active Medications Generic Name Dose Route Start Last Admin Trade Name Patience PRN Reason Stop Dose Admin Apixaban 5 mg 07/06/23 21:03 07/07/23 08:49 Apixaban 5 Mg Tablet PO 08/05/23 21:02 5 mg BID RIVERA Administration Atorvastatin Calcium 40 mg 07/07/23 09:00 07/07/23 08:48 Atorvastatin 40 Mg Tab PO 08/06/23 08:59 40 mg DAILY RIVERA Administration Calcium/Vitamin D 1 tab 07/06/23 21:30 07/07/23 08:48 Calcium 600mg + Vit D 400 Iu Tab PO 08/05/23 21:29 1 tab BID RIVERA Administration Cyanocobalamin 1,000 mcg 07/07/23 09:00 07/07/23 08:49 Cyanocobalamin (B-12) 500 Mcg Tablet PO 08/06/23 08:59 1,000 mcg DAILY RIVERA Administration Docusate Sodium 100 mg 07/06/23 21:15 07/07/23 08:49 Docusate Sodium 100 Mg Cap PO 08/05/23 21:14 100 mg BID RIVERA Administration Fish Oil 1 gm 07/06/23 21:15 07/07/23 08:49 Aurora-3 (Purified Fish Oil) 1 Gm Cap PO 08/05/23 21:14 1 gm BID RIVERA Administration Furosemide 40 mg 07/07/23 09:00 07/07/23 08:49 Furosemide 40 Mg Tab PO 08/06/23 08:59 40 mg MoWeFr@0900 RIVERA Administration Gabapentin 300 mg 07/06/23 21:15 07/07/23 08:49 Gabapentin 300 Mg Cap PO 08/05/23 21:14 300 mg AMHS RIVERA Administration Cefepime HCl 2,000 mg/ Syringe 20 mls @ 5 mls/min 07/06/23 08:00 07/07/23 10:40 IV 07/13/23 07:59 5 mls/min Q12H RIVERA Administration Protocol Insulin Aspart 0 units 07/06/23 21:15 07/07/23 12:24 Insulin Aspart Per Unit Charge SC 08/05/23 21:14 2 units ACHS RIVERA Administration Insulin Glargine 45 units 07/06/23 22:45 07/06/23 22:49 Lantus Per Unit Charge SQ 08/05/23 22:44 45 units HS RIVERA Administration Metoprolol Succinate 75 mg 07/07/23 09:00 07/07/23 08:49 Metoprolol Succ 50mg Ext Rel Tab PO 08/06/23 08:59 Not Given QAM RIVERA Metoprolol Succinate 50 mg 07/06/23 21:30 07/06/23 22:23 Metoprolol Succ 50mg Ext Rel Tab PO 08/05/23 21:29 50 mg HS RIVERA Administration Mirtazapine 30 mg 07/06/23 21:15 07/06/23 22:23 Mirtazapine Tab 15 Mg Tab PO 08/05/23 21:14 30 mg HS RIVERA Administration Morphine Sulfate 15 mg 07/06/23 21:03 07/07/23 08:48 Morphine Sulfate Ir 15 Mg Tab (Immediate Release) PO 07/20/23 21:02 15 mg Q4H PRN Administration Pain Pantoprazole Sodium 40 mg 07/07/23 09:00 07/07/23 08:49 Pantoprazole 40 Mg Tab PO 08/06/23 08:59 40 mg QAM RIVERA Administration Potassium Chloride 20 meq 07/06/23 21:15 07/07/23 08:49 Potassium Chloride Crtab 20 Meq Tabcr PO 08/05/23 21:14 20 meq BID RIVERA Administration Prochlorperazine 10 mg 07/06/23 21:03 07/07/23 08:49 Prochlorperazine Maleate 10 Mg Tab PO 08/05/23 21:02 10 mg Q6H PRN Administration nausea
[2023-07-07] MEDS ORDERED: MAGNESIUM SULFATE / D5W 1 GM/100 ML BAG IV ONE (08:52)
[2023-07-07] MEDS: CEFEPIME 2,000 MG in SYRINGE 0 ML IV SCH ×3 (08:59→20:18)
[2023-07-07] MEDS ORDERED: VANCOMYCIN HCL 1,000 MG in SODIUM CHLORIDE 0.9% 250 ML IV SCH (12:00)
[2023-07-07] MEDS ORDERED: FUROSEMIDE IV ONE (12:20)
[2023-07-07] MEDS ORDERED: FUROSEMIDE INJ 20 MG/2 ML VIAL IV ONE ×2 (12:20)
[2023-07-07] MEDS ORDERED: LACTATED RINGER'S 250 ML IV ONE (15:19)
[2023-07-07] MEDS: POLYETHYLENE (MIRALAX) 17 GM PACK PO SCH (15:53)
[2023-07-07] MEDS: DIGOXIN 0.125 MG TAB PO SCH (17:32)
--- NOTE | 2023-07-07 17:43 | Ultrasound Report ---
ULTRASOUND RIGHT UPPER QUADRANT ABDOMEN CLINICAL HISTORY: Elevated hepatic transaminases. COMPARISON STUDY: Abdominal CT dated 11/04/2022. TECHNIQUE: Real-time, grayscale, and color flow sonography of the right upper quadrant of the abdomen was performed. Images are reviewed in the transverse and longitudinal planes. FINDINGS: Liver: The liver is normal in size and echotexture. There is no intrahepatic biliary ductal dilatatio n. The main portal vein is patent. Gallbladder: The gallbladder is mildly distended but otherwise normal in appearance. No gallstones ar e identified. There is no gallbladder wall thickening or pericholecystic fluid. A sonographic De Paz' s sign is reportedly absent. The common bile duct measures up to 0.6 cm in diameter. Pancreas: Not visualized due to overlying bowel gas. Right kidney: Survey images of the right kidney demonstrate mild cortical atrophy. Echotexture is nor mal. There is mild right-sided hydronephrosis. Scattered renal cysts measuring up to 2.2 cm. Ascites: None. IMPRESSION: 1. The liver is normal in size and echotexture. 2. No gallstones are seen. 3. There is mild right-sided hydronephrosis, possibly related to bladder distention when compared to the prior abdominal CT scan. Correlate clinically. 4. Nonvisualization of the pancreas. ACT 112: Negative or not required by law. Electronically signed by: Dante Lopez M.D. 07/07/2023 5:41 PM
[2023-07-07] MEDS: LANTUS PER UNIT CHARGE SQ SCH (20:18)
[2023-07-07] MEDS: MIRTAZAPINE TAB 15 MG TAB PO SCH (20:22)
[2023-07-08 06:35] LABS: Basophils # (auto) 0.02 K/uL (0.00-0.20); Basophils % (auto) 0.7 %; Eosinophils # (auto) 0.17 K/uL (0.00-0.50); Eosinophils % (auto) 6.3 %; Hematocrit (blood only) 27.6 % (42.0-52.0); Hemoglobin 9.2 g/dl (14.0-18.0); Immature Granulocytes # (auto) 0.03 K/uL (0.01-0.20); Immature Granulocytes % (auto) 1.1 %; Lymphocytes # (auto) 0.61 K/uL (1.20-3.40); Lymphocytes % (auto) 22.7 %; Mean Corpuscular Hemoglobin 31.7 pg (25.0-34.0); Mean Corpuscular Hgb Conc 33.3 g/dL (32.0-36.0); Mean Corpuscular Volume 95.2 fL (80.0-100.0); Mean Platelet Volume 12.3 fL (9.4-12.4); Monocytes # (auto) 0.51 K/uL (0.11-0.59); Neutrophils # (auto) 1.35 K/uL (1.40-6.50); Neutrophils % (auto) 50.2 %; Platelet Count 135 K/uL (130-400); RDW Coefficient of Variation 14.3 % (11.5-14.5); RDW Standard Deviation 50.2 fL (36.4-46.3); White Blood Count 2.69 K/ul (4.8-10.8)
[2023-07-08 07:02] LABS: Albumin Level 3.4 gm/dl (3.4-5.0); Bilirubin,Total 0.7 mg/dl (0.2-1.0); Calcium 7.9 mg/dl (8.6-10.3); Magnesium 2.1 mg/dl (1.7-2.4); Potassium 3.7 mmol/L (3.5-5.1)
[2023-07-08 07:08] LABS: Albumin Globulin Ratio 1.3 (0.9-2); BUN Creatinine Ratio 16.3 (10-20); Creatinine Clr Calc Pharmacy 37.1 ml/min; Est GFR (African American) 45.4 ml/min; Est GFR (Non-African American) 39.2 ml/min; Globulin 2.7 gm/dl (2.5-4.0); Phosphorus 4.2 mg/dl (2.5-4.9); Total Protein 6.1 gm/dl (6.0-8.3)
[2023-07-08] MEDS: POLYETHYLENE (MIRALAX) 17 GM PACK PO SCH (07:51)
[2023-07-08] MEDS: CEFEPIME 2,000 MG in SYRINGE 0 ML IV SCH ×2 (07:51→21:09)
[2023-07-08] MEDS: METOPROLOL SUCC 50MG EXT REL TAB PO SCH ×2 (07:55→21:15)
[2023-07-08] MEDS: CYANOCOBALAMIN (B-12) 500 MCG TABLET PO SCH (07:56)
[2023-07-08] MEDS: OMEGA-3 (PURIFIED FISH OIL) 1 GM CAP PO SCH ×2 (07:56→21:10)
[2023-07-08] MEDS: GABAPENTIN 300 MG CAP PO SCH ×2 (07:56→21:10)
[2023-07-08] MEDS: APIXABAN 5 MG TABLET PO SCH ×2 (07:56→21:09)
[2023-07-08] MEDS: CALCIUM 600MG + VIT D 400 IU TAB PO SCH ×2 (07:56→21:09)
[2023-07-08] MEDS: ATORVASTATIN 40 MG TAB PO SCH (07:56)
[2023-07-08] MEDS: PROCHLORPERAZINE MALEATE 10 MG TAB PO PRN (07:57)
[2023-07-08] MEDS: DOCUSATE SODIUM 100 MG CAP PO SCH (07:57)
[2023-07-08] MEDS: POTASSIUM CHLORIDE CRTAB 20 MEQ TABCR PO SCH ×2 (07:57→21:11)
[2023-07-08] MEDS: PANTOprazole 40 MG TAB PO SCH (07:57)
--- NOTE | 2023-07-08 08:00 | Cardiology Progress Note ---
Date of Service July 08, 2023 Assessment & Plan (1) Pneumonia: (2) Tachy-noman syndrome: (3) Atrial flutter: (4) Pacemaker: (5) Chronic heart failure with reduced ejection fraction and diastolic dysfunction: (6) Ischemic cardiomyopathy: (7) Multiple myeloma: Plan IMPRESSION: -Medically complex 78-year-old male with a past medical CARDIAC history of ischemic cardiomyopathy s/p CABG, tachybrady syndrome status post pacemaker and atrial fibrillation/flutter. Other PMH includes centrilobular emphysema, interstitial lung disease, multiple myeloma treated with Darzalex plus Revlimid and Decadron, and anemia. -Patient represented to [facility] ED due to progressive shortness of breath and was found to have right upper lobe pneumonia following a recent hospitalization -D-dimer elevated, CTA of the chest without evidence of pulmonary embolism -Telemetry revealing atrial fibrillation/flutter, currently rate controlled -High-sensitivity troponins chronically elevated but flat likely in the setting of acute and chronic illness, demand, and renal dysfunction PLAN: -Atrial Flutter: Recurrence of PAF/Flutter in the setting of acute illness. Generally heart rates are well controlled on current regimen 1. Continue metoprolol succinate 75 mg a.m. and 50 mg p.m + Digoxin 0.125 mg every MWF. Room to increase metoprolol dosage. 2. Prior use of amiodarone failed to provide adequate antiarrhythmic control. ? lung toxicity per pulmonary 3. Continue Eliquis 5 mg BID for stroke prevention -HFrEF/ICM: 1. Patient receiving chemotherapeutic treatment for multiple myeloma with Darzalex faspro and Revlimid. Both treatments are associated with peripheral edema. Currently well compensated from a vL standpoint, likely hypovolemic with evidence of renal dysfunction. Hold further dose of IV Lasix, repeat BMP tomorrow am. Anticipate continuation of Lasix 40 mg PO MWF at discharge. 2. Additional/titration of evidence-based heart failure therapy limited by chronic borderline resting hypotension with history of orthostatic hypotension and near syncope. - RUL PNA: 3. Treatment underlying infectious process per primary team- on IV antibiotics. Case discussed with Dr. Lin- will follow. Admission and Anticipated Discharge Date Admission Date: July 06, 2023 Supervising Physician Co-Signing Physician Notes Patient seen and examined, chart, medications reviewed. Generally feeling somewhat better still with cough No jugular venous distention when lying flat no edema. Exam not consistent with volume overload current Patient with proximal approaching persistent atrial fibrillation flutter and appropriately anticoagulated, rate control Assessment and plan as above Subjective -Medically complex 78-year-old male with a past medical CARDIAC history of ischemic cardiomyopathy s/p CABG, tachybrady syndrome status post pacemaker and atrial fibrillation/flutter. Other PMH includes centrilobular emphysema, interstitial lung disease, multiple myeloma treated with Darzalex plus Revlimid and Decadron, and anemia. -Patient represented to [facility] ED due to progressive shortness of breath and was found to have right upper lobe pneumonia following a recent hospitalization -Rhythm persistent AFIB 07/07: Metoprolol resumed. Lasix resumed and additional 20 mg IV Lasix given 07/08: Tele: AFIB with intermittent pacing 70s I&O: -2.5 L Weight: 70.3 kg >>68.8 kg Labs: decline in renal function 1.33>>1.66, Mild hyponatremia 135. Results & Data Vital Signs (Past 12 Hours) Vital Signs Temp Pulse Pulse Pulse Resp BP Pulse Ox 07/08/23 07:46 36.9 C 73 18 110/69 98 07/08/23 03:35 36.9 C 74 20 100/47 L 92 07/07/23 23:00 77 07/07/23 23:33 36.8 C 48 L 20 98/47 L 96 O2 Del Method 07/08/23 07:46 Room Air 07/08/23 03:35 Room Air 07/07/23 23:00 07/07/23 23:33 Room Air Laboratory Results Cardiac Enzymes 07/07/23 07/08/23 Range/Units 12:24 05:38 AST 68 H (13-39) U/L B-Natriuretic Peptide 518 H (0-100) pg/ml Coagulation 07/07/23 Range/Units 12:24 B-Natriuretic Peptide 518 H (0-100) pg/ml CBC 07/08/23 Range/Units 05:38 WBC 2.69 L (4.8-10.8) K/ul RBC 2.90 L (4.70-6.10) M/uL Hgb 9.2 L (14.0-18.0) g/dl Hct 27.6 L (42.0-52.0) % Plt Count 135 (130-400) K/uL Neut # (Auto) 1.35 L (1.40-6.50) K/uL Lymph # (Auto) 0.61 L (1.20-3.40) K/uL [place] # (Auto) 0.51 (0.11-0.59) K/uL Eos # (Auto) 0.17 (0.00-0.50) K/uL Baso # (Auto) 0.02 (0.00-0.20) K/uL Comprehensive Metabolic Panel 07/08/23 Range/Units 05:38 Sodium 135 L (136-145) mmol/L Potassium 3.7 (3.5-5.1) mmol/L Chloride 102 (98-107) mmol/L Carbon Dioxide 24 (21-32) mmol/L BUN 27 H (6-23) mg/dl Creatinine 1.66 H D (0.6-1.4) mg/dl Glucose 110 H (70-99(Fasting)) mg/dl Calcium 7.9 L (8.6-10.3) mg/dl AST 68 H (13-39) U/L ALT 145 H (7-52) U/L Alkaline Phosphatase 71 (34-104) U/L Total Protein 6.1 (6.0-8.3) gm/dl Albumin 3.4 (3.4-5.0) gm/dl Intake and Output 07/07/23 07/08/23 07/08/23 22:59 06:59 14:59 Intake Total 250 / 390 Output Total 725 / 3375 600 / 3375 Balance -475 / -2985 -600 / -2985 Intake: IV 250 / 350 Lactated Ringer's 250 ml @ 999 250 / 250 mls/hr IV .Q16M ONE Rx#: [id number] Output: Urine 725 / 3375 600 / 3375 Other: Weight 70.3 kg 68.8 kg Patient Weight 07/09/23 06:59 Weight 68.8 kg (1) Pneumonia Laterality: right Lung location: upper lobe of lung Pneumonia type: due to unspecified organism Qualified Code(s): J18.9 - Pneumonia, unspecified organism
[2023-07-08] MEDS: INSULIN ASPART PER UNIT CHARGE SC SCH ×4 (08:03→21:11)
--- NOTE | 2023-07-08 14:40 | Hospitalist Progress Note ---
Date of Service July 08, 2023 Assessment & Plan (1) Hospital acquired PNA: (2) Chronic heart failure with reduced ejection fraction and diastolic dysfunction: (3) Anemia: (4) Tachy-noman syndrome: (5) Elevated troponin: (6) Ischemic cardiomyopathy: (7) HTN (hypertension): (8) Leg wound, left: (9) Multiple myeloma: (10) Type 2 diabetes mellitus: (11) CAD (coronary artery disease): (12) HLD (hyperlipidemia): (13) Pacemaker: (14) ABDI (acute kidney injury): Plan Mr. Hernandez is a 78-year-old gentleman with PMH of chronic systolic CHF, chronic ischemic heart disease, HTN, HLD, CAD s/p CABG, history of STEMI, paroxysmal A- fib, SSS s/p pacemaker, DM type II, peripheral neuropathy, GERD, CKD, multiple myeloma on Darzalex, revlimid and decadron, last treatment was on 05/25/2023 (currently being held), emphysema, interstitial lung disease, h/o opioid-induced constipation and other medical problems who presented with RAYGOZA. Initially thought to be related to RUL PNA iso recent hospitalization, however, procal/clinical presentation less suggestive of infectious eitology but appear more consistent with cardiac process rather than infectious source. Dyspnea on Exertion -Multifactorial: Interstitial lung disease, atrial fibrillation with RVR, acute on chronic systolic and diastolic CHF, symptomatic anemia, ? Possible pneumonia Immunocompromise state --CTA:No acute abnormality and in particular no evidence of pulmonary embolus. Airspace opacity is in the right upper lobe which may represent pneumonia. No evidence of interstitial pulmonary edema. Redemonstration of emphysema and interstitial lung disease. Cardiomegaly and pacemaker. -- Negative BioFire Normal procalcitonin Nasal MRSA Negative Saturating well on room air Continue cefepime for now given immunocompromise state Plan to transition to p.o. antibiotics as able Received IV Lasix Plan to transition to p.o. diuretics as able Appreciate cardiology input May need 2 step prior to discharge Hb at baseline, no acute bleeding issues, monitor CBC ABDI on CKD II-III Avoid nephrotoxic agents as able Monitor renal function Acute on Chronic Heart Failure with reduced EF (35-40% 06/2023) due to ischemic cardiomyopathy Severe Multivessel Coronary Artery Disease s/p CABG 1993 (BISHOP-LAD, gastroepiploic to RPDA, graft to OM) Atrial fibrillation Tachy-noman syndrome s/p 2019 Not a candidate for amiodarone due to lung issues ? due to chemotherapeutic treatment for multiple myeloma with Darzalex faspro and Revlimid--both can increase fluid overload Diuretics as per cardiology Continue metoprolol succinate 75 mg every morning and 50 mg every afternoon Continue digoxin Wednesday On Eliquis for anticoagulation Elevated Liver enzymes Likely due to Revlimid --Liver USD:The liver is normal in size and echotexture. No gallstones are seen Hepatitis panel pending Chronic troponin elevation Less likely ACS Chronic Hypotension Hypoalbuminemia likely contributing Monitor Peripheral Arterial Disease c/b left popliteal occlusion Chronic ulceration left forefoot Appears non-infectious, signs of healing/granulation tissue, no purulence Continue Wound care -Completed course of PO abx +inpatient administration of abx: cipro +2 days cefepime for Klebsiella/Enterobacter Chronic Pancytopenia Mild Neutropenia Multiple Myeloma IgA kappa with lytic bone lesions Initially dx 08/18/2021 with BM biopsy. Currently undergoing chemotherapy with Darzalex , revlimid and decadron Last received chemo 05/25: Follows with Dr. Garcia, took last dose of revlimid (possibly explaining pancytopenia), however given decline in performance status/infection, further treatment with Darzalex held Continue morphine IR 15 mg for pain, gabapentin 300 mg BID with bowel regimen Neutropenic precautions, monitor ANC if need to transition to neutropenic diet fro ANC <500 DM II Last A1C 6.9 Hold home agents Basal/bolus insulin while in-patient BSG AC HS DVT Px: Eliquis Code status: DNR/DNI Admission and Anticipated Discharge Date Admission Date: July 06, 2023 Subjective Patient is seen and examined at bedside States having dyspnea on exertion, dizziness Denies any significant cough Also denies any chest pain, nausea, vomiting, abdominal pain No other complaints Saturating well on room air Review of Systems Review of Systems: All systems reviewed & are unremarkable except as noted in Subjective Physical Exam Physical Exam: Physical Exam: Vitals signs as noted above General Appearance:Thin, Frail, no apparent distress Head: normocephalic, Atraumatic Eyes: normal inspection, EOMI Neck: supple, Trachea midline Respiratory/Chest: Decreased breath sounds, CTA, No accessory muscle use Cardiovascular: Irregularly Irregular, No murmur Abdomen/GI:Soft, Non tender, Bowel sounds present Extremities/Musculoskeletal:normal inspection, no edema Neurologic/Psych:AAOX3, grossly no focal neurological deficits, +L small open plantar wound Skin: normal color, warm Results & Data Results & Data Vital Signs (Past 12 Hours) Vital Signs Temp Pulse Pulse Resp BP Pulse Ox O2 Del Method 07/08/23 11:30 36.5 C 80 18 96/63 L 96 Room Air 07/08/23 08:00 68 07/08/23 07:46 36.9 C 73 18 110/69 98 Room Air 07/08/23 03:35 36.9 C 74 20 100/47 L 92 Room Air Laboratory Results Short CBC 07/08/23 Range/Units 05:38 WBC 2.69 L (4.8-10.8) K/ul Hgb 9.2 L (14.0-18.0) g/dl Hct 27.6 L (42.0-52.0) % Plt Count 135 (130-400) K/uL BMP 07/08/23 05:38 Sodium 135 L Potassium 3.7 Chloride 102 Carbon Dioxide 24 BUN 27 H Creatinine 1.66 H D Glucose 110 H Calcium 7.9 L Liver Function 07/08/23 Range/Units 05:38 Total Bilirubin 0.7 (0.2-1.0) mg/dl AST 68 H (13-39) U/L ALT 145 H (7-52) U/L Alkaline Phosphatase 71 (34-104) U/L Albumin 3.4 (3.4-5.0) gm/dl
[2023-07-08] MEDS ORDERED: LACTULOSE SYRUP 30 GM/45 ML UDP PO STA (20:38)
[2023-07-08] MEDS: DOCUSATE SODIUM/SENNA 50/8.6MG TAB PO SCH (21:09)
[2023-07-08] MEDS: MIRTAZAPINE TAB 15 MG TAB PO SCH (21:10)
[2023-07-08] MEDS: LANTUS PER UNIT CHARGE SQ SCH (21:11)
[2023-07-09 06:15] LABS: Basophils # (auto) 0.02 K/uL (0.00-0.20); Basophils % (auto) 0.6 %; Eosinophils # (auto) 0.05 K/uL (0.00-0.50); Eosinophils % (auto) 1.4 %; Hemoglobin 9.2 g/dl (14.0-18.0); Immature Granulocytes # (auto) 0.06 K/uL (0.01-0.20); Immature Granulocytes % (auto) 1.7 %; Lymphocytes # (auto) 0.56 K/uL (1.20-3.40); Mean Corpuscular Hemoglobin 31.1 pg (25.0-34.0); Mean Corpuscular Hgb Conc 32.9 g/dL (32.0-36.0); Mean Corpuscular Volume 94.6 fL (80.0-100.0); Monocytes # (auto) 0.55 K/uL (0.11-0.59); Monocytes % (auto) 15.7 %; Neutrophils # (auto) 2.27 K/uL (1.40-6.50); Neutrophils % (auto) 64.6 %; Platelet Count 144 K/uL (130-400); RDW Standard Deviation 48.9 fL (36.4-46.3); Red Blood Count 2.96 M/uL (4.70-6.10); White Blood Count 3.51 K/ul (4.8-10.8)
[2023-07-09 06:29] LABS: Albumin Globulin Ratio 1.2 (0.9-2); Albumin Level 3.3 gm/dl (3.4-5.0); BUN Creatinine Ratio 17.9 (10-20); Bilirubin,Total 0.9 mg/dl (0.2-1.0); Calcium 8.3 mg/dl (8.6-10.3); Creatinine Clr Calc Pharmacy 41.4 ml/min; Est GFR (African American) 50.9 ml/min; Est GFR (Non-African American) 43.9 ml/min; Globulin 2.8 gm/dl (2.5-4.0); Phosphorus 3.2 mg/dl (2.5-4.9); Total Protein 6.1 gm/dl (6.0-8.3)
[2023-07-09] MEDS ORDERED: PIPER/TAZO 4.5g in D5W MINI-B 100 ML IV ONE (08:00)
[2023-07-09] MEDS: DOCUSATE SODIUM/SENNA 50/8.6MG TAB PO SCH ×2 (08:33→20:37)
[2023-07-09] MEDS: OMEGA-3 (PURIFIED FISH OIL) 1 GM CAP PO SCH ×2 (08:33→20:37)
[2023-07-09] MEDS: CALCIUM 600MG + VIT D 400 IU TAB PO SCH ×2 (08:33→20:36)
[2023-07-09] MEDS: PROCHLORPERAZINE MALEATE 10 MG TAB PO PRN (08:33)
[2023-07-09] MEDS: GABAPENTIN 300 MG CAP PO SCH ×2 (08:33→20:37)
[2023-07-09] MEDS: POTASSIUM CHLORIDE CRTAB 20 MEQ TABCR PO SCH ×2 (08:33→20:38)
[2023-07-09] MEDS: APIXABAN 5 MG TABLET PO SCH ×2 (08:33→20:36)
[2023-07-09] MEDS: METOPROLOL SUCC 50MG EXT REL TAB PO SCH (08:34)
[2023-07-09] MEDS: CYANOCOBALAMIN (B-12) 500 MCG TABLET PO SCH (08:35)
[2023-07-09] MEDS: FUROSEMIDE 40 MG TAB PO SCH (08:35)
[2023-07-09] MEDS: ATORVASTATIN 40 MG TAB PO SCH (08:36)
[2023-07-09] MEDS: POLYETHYLENE (MIRALAX) 17 GM PACK PO SCH (08:36)
[2023-07-09] MEDS: PANTOprazole 40 MG TAB PO SCH (08:36)
[2023-07-09] MEDS: INSULIN ASPART PER UNIT CHARGE SC SCH ×4 (08:46→20:43)
--- NOTE | 2023-07-09 11:10 | Cardiology Progress Note ---
Date of Service July 09, 2023 Assessment & Plan (1) Pneumonia: (2) Tachy-noman syndrome: (3) Atrial flutter: (4) Pacemaker: (5) Chronic heart failure with reduced ejection fraction and diastolic dysfunction: (6) Ischemic cardiomyopathy: (7) Multiple myeloma: Plan IMPRESSION: -Medically complex 78-year-old male with a past medical CARDIAC history of ischemic cardiomyopathy s/p CABG, tachybrady syndrome status post pacemaker and atrial fibrillation/flutter. Other PMH includes centrilobular emphysema, interstitial lung disease, multiple myeloma treated with Darzalex plus Revlimid and Decadron, and anemia. -Patient represented to [facility] due to progressive shortness of breath and was found to have right upper lobe pneumonia following a recent hospitalization -D-dimer elevated, CTA of the chest without evidence of pulmonary embolism -Telemetry revealing atrial fibrillation/flutter, currently rate controlled -High-sensitivity troponins chronically elevated but flat likely in the setting of acute and chronic illness, demand, and renal dysfunction PLAN: -Atrial Flutter: Recurrence of PAF/Flutter in the setting of acute illness. Generally heart rates are well controlled on current regimen 1. Continue metoprolol succinate 75 mg a.m. and 50 mg p.m + Digoxin 0.125 mg every MWF. Room to increase metoprolol dosage. 2. Prior use of amiodarone failed to provide adequate antiarrhythmic control. ? lung toxicity per pulmonary 3. Continue Eliquis 5 mg BID for stroke prevention -HFrEF/ICM: 1. Patient receiving chemotherapeutic treatment for multiple myeloma with Darzalex faspro and Revlimid. Both treatments are associated with peripheral edema. Currently well compensated from a vL standpoint, likely hypovolemic with evidence of renal dysfunction. Hold further dose of IV Lasix, repeat BMP tomorrow am. Anticipate continuation of Lasix 40 mg PO MWF at discharge. 2. Additional/titration of evidence-based heart failure therapy limited by chronic borderline resting hypotension with history of orthostatic hypotension and near syncope. - RUL PNA: 3. Treatment underlying infectious process per primary team- on IV antibiotics. Case discussed with Dr. Lin- will follow. 07/09/2023 Slowly improving. No signs or symptoms of volume overload Rhythm has reverted back to sinus rhythm from prior paroxysmal atrial flutter We will increase metoprolol succinate to 75 mg twice per day Continue to treat underlying pulmonary issue Admission and Anticipated Discharge Date Admission Date: July 06, 2023 Subjective Patient seen and examined, chart, medications, telemetry reviewed No acute complaints and feeling improved Telemetry notable for spontaneous return to sinus rhythm with intermittent pacing Mild cough minimally productive Review of Systems Review of Systems: All systems reviewed & are unremarkable except as noted in Subjective Physical Exam Constitutional: WD/WN, vitals as above no acute distress Eyes: PERRL, conjunctivae normal, anicteric sclerae Neck: normal visual inspection and trachea midline Respiratory: normal respiratory effort; no respiratory distress and no cough Auscultation: + diminished lung sounds; no rales, no rhonchi and no wheezes Cardiovascular: Rate/Rhythm: regular rate and regular rhythm Heart Sounds: normal S1, normal S2 and + murmur (+systolic ) Vessels: no JVD Extremities: no edema Chest (Breasts): Chest: + pacemaker Gastrointestinal (Abdomen): normal bowel sounds, soft, nontender, no hepatosplenomegaly Results & Data Vital Signs (Past 12 Hours) Vital Signs Temp Pulse Pulse Resp BP BP Pulse Ox 07/09/23 07:15 36.3 C L 67 16 131/66 97 07/09/23 07:12 71 07/09/23 03:21 36.8 C 68 18 95/51 L 97 07/08/23 23:53 38.8 C H 87 16 95/46 L 92 O2 Del Method 07/09/23 07:15 Room Air 07/09/23 07:12 07/09/23 03:21 Room Air 07/08/23 23:53 Room Air (1) Pneumonia Laterality: right Lung location: upper lobe of lung Pneumonia type: due to unspecified organism Qualified Code(s): J18.9 - Pneumonia, unspecified organism
[2023-07-09] MEDS ORDERED: PHARMACY GLYCEMIC MGMT CONSULT PRN (11:52)
--- NOTE | 2023-07-09 12:25 | Pharmacy Report ---
Pharmacy Glycemic Short Note 2 - Date of Service July 09, 2023 - Glycemic Short BSG Results (Last 24 hours): 07/08/23 07/08/23 07/09/23 16:28 20:54 05:06 Glucose 117 H POC Glucose 196 H 185 H 07/09/23 07/09/23 07/09/23 07:13 11:30 11:32 Glucose POC Glucose 146 H 310 H* 309 H* OUTPATIENT ANTIDIABETIC REGIMEN: * Lantus 40 units SQ HS * Novolog 15 units TIDM * liraglutide 1.2mg SQ once daily HbA1C: 6.9% ASSESSMENT: * 78 year old male admitted with pneumonia. History of DM2 on insulin therapy at home. Pharmacy consulted today to assist with glycemic management while inpatient in setting of elevated prandial BSGs. * BSGs the last 24h: [phone]/dL. Received 45 units of basal insulin yesterday and 21 units of bolus insulin. * Tolerating a diet and continues on antibiotics. * Given acceptable fasting BSGs, will keep basal dose of 45 units for tonight. Based upon historic glycemic data, will tighten Novolog starting at lunch to 20/5. Goal BSG also tightened to 110-140mg/dL. PLAN FOR INPATIENT GLYCEMIC CONTROL: * Hold outpatient oral diabetes medications * Basal insulin * Lantus 45 units SQ HS * Bolus insulin * NovoLog per scale ACHS or Q6hrs while NPO * Goal Range: Low 110 mg/dL - High 140 mg/dL * Correction Factor: 20 mg/dL/unit * Nutritional / Prandial insulin per carb ratio of 1 unit per 5 grams CHO consumed
[2023-07-09 12:53] LABS: HBSAG NON-REACTIVE (NON-REACTIVE); Hepatitis A Antibody IgM NON-REACTIVE (NON-REACTIVE); Hepatitis B Core Antibody IgM NON-REACTIVE (NON-REACTIVE)
[2023-07-09] MEDS: PIPER/TAZO 4.5g in D5W MINI-B 100 ML IV SCH ×2 (14:50→21:13)
--- NOTE | 2023-07-09 16:08 | Hospitalist Progress Note ---
Date of Service July 09, 2023 Assessment & Plan (1) Hospital acquired PNA: (2) Chronic heart failure with reduced ejection fraction and diastolic dysfunction: (3) Anemia: (4) Tachy-noman syndrome: (5) Elevated troponin: (6) Ischemic cardiomyopathy: (7) HTN (hypertension): (8) Leg wound, left: (9) Multiple myeloma: (10) Type 2 diabetes mellitus: (11) CAD (coronary artery disease): (12) HLD (hyperlipidemia): (13) Pacemaker: (14) ABDI (acute kidney injury): Plan Mr. Hernandez is a 78-year-old gentleman with PMH of chronic systolic CHF, chronic ischemic heart disease, HTN, HLD, CAD s/p CABG, history of STEMI, paroxysmal A- fib, SSS s/p pacemaker, DM type II, peripheral neuropathy, GERD, CKD, multiple myeloma on Darzalex, revlimid and decadron, last treatment was on 05/25/2023 (currently being held), emphysema, interstitial lung disease, h/o opioid-induced constipation and other medical problems who presented with RAYGOZA. Initially thought to be related to RUL PNA iso recent hospitalization, however, procal/clinical presentation less suggestive of infectious eitology but appear more consistent with cardiac process rather than infectious source. Dyspnea on Exertion -Multifactorial: Interstitial lung disease, atrial fibrillation with RVR, acute on chronic systolic and diastolic CHF, symptomatic anemia, ? Possible pneumonia Immunocompromise state --CTA:No acute abnormality and in particular no evidence of pulmonary embolus. Airspace opacity is in the right upper lobe which may represent pneumonia. No evidence of interstitial pulmonary edema. Redemonstration of emphysema and interstitial lung disease. Cardiomegaly and pacemaker. -- Negative BioFire Normal procalcitonin Nasal MRSA Negative Saturating well on room air Plan to transition to p.o. antibiotics as able Received IV Lasix Plan to transition to p.o. diuretics as able Appreciate cardiology input May need 2 step prior to discharge Hb at baseline, monitor CBC Change cefepime to Zosyn given fever overnight, immunocompromised state Infectious disease consulted as well Antitussives as needed ABDI on CKD II-III Avoid nephrotoxic agents as able Monitor renal function Cr 1.5 today Acute on Chronic Heart Failure with reduced EF (35-40% 06/2023) due to ischemic cardiomyopathy Severe Multivessel Coronary Artery Disease s/p CABG 1993 (BISHOP-LAD, gastroepiploic to RPDA, graft to OM) Atrial fibrillation Tachy-noman syndrome s/p PPM 2019 Not a candidate for amiodarone due to lung issues ? due to chemotherapeutic treatment for multiple myeloma with Darzalex faspro and Revlimid--both can increase fluid overload Diuretics as per cardiology Increase metoprolol succinate to 75 mg BID Continue digoxin Wednesday On Eliquis for anticoagulation Elevated Liver enzymes Likely due to Revlimid --Liver USD:The liver is normal in size and echotexture. No gallstones are seen Hepatitis panel pending LFTs slightly up today, hold Tylenol Chronic troponin elevation Less likely ACS Chronic Hypotension Hypoalbuminemia likely contributing Monitor Peripheral Arterial Disease c/b left popliteal occlusion Chronic ulceration left forefoot Appears non-infectious, signs of healing/granulation tissue, no purulence Continue Wound care -Completed course of PO abx +inpatient administration of abx: cipro +2 days cefepime for Klebsiella/Enterobacter Chronic Pancytopenia Mild Neutropenia Multiple Myeloma IgA kappa with lytic bone lesions Initially dx 08/18/2021 with BM biopsy. Currently undergoing chemotherapy with Darzalex , revlimid and decadron Last received chemo 05/25: Follows with Dr. Garcia, took last dose of revlimid (possibly explaining pancytopenia), however given decline in performance status/infection, further treatment with Darzalex held Continue morphine IR 15 mg for pain, gabapentin 300 mg BID with bowel regimen Neutropenic precautions, monitor ANC if need to transition to neutropenic diet fro ANC <500 DM II Last A1C 6.9 Hold home agents Basal/bolus insulin while in-patient BSG AC HS DVT Px: Eliquis Code status: DNR/DNI Admission and Anticipated Discharge Date Admission Date: July 06, 2023 Subjective Patient is seen and examined at bedside States having cough with expectoration and minimal hemoptysis Also reports dyspnea on exertion No dizziness today Hb Stable Denies any chest pain, nausea, vomiting, abdominal pain Review of Systems Review of Systems: All systems reviewed & are unremarkable except as noted in Subjective Physical Exam Physical Exam: Physical Exam: Vitals signs as noted above General Appearance:Thin, Frail, no apparent distress Head: normocephalic, Atraumatic Eyes: normal inspection, EOMI Neck: supple, Trachea midline Respiratory/Chest: Decreased breath sounds, CTA, No accessory muscle use Cardiovascular: Irregularly Irregular, No murmur Abdomen/GI:Soft, Non tender, Bowel sounds present Extremities/Musculoskeletal:normal inspection, no edema Neurologic/Psych:AAOX3, grossly no focal neurological deficits, +L small open plantar wound Skin: normal color, warm Results & Data Results & Data Vital Signs (Past 12 Hours) Vital Signs Temp Pulse Pulse Resp BP BP Pulse Ox 07/09/23 15:35 71 07/09/23 10:52 36.9 C 67 17 131/62 97 07/09/23 07:15 36.3 C L 67 16 131/66 97 07/09/23 07:12 71 O2 Del Method 07/09/23 15:35 07/09/23 10:52 Room Air 07/09/23 07:15 Room Air 07/09/23 07:12 Laboratory Results Short CBC 07/09/23 Range/Units 05:06 WBC 3.51 L (4.8-10.8) K/ul Hgb 9.2 L (14.0-18.0) g/dl Hct 28.0 L (42.0-52.0) % Plt Count 144 (130-400) K/uL BMP 07/09/23 05:06 Sodium 137 Potassium 4.0 Chloride 106 Carbon Dioxide 21 BUN 27 H Creatinine 1.51 H Glucose 117 H Calcium 8.3 L Liver Function 07/09/23 Range/Units 05:06 Total Bilirubin 0.9 (0.2-1.0) mg/dl AST 211 H (13-39) U/L ALT 292 H (7-52) U/L Alkaline Phosphatase 117 H (34-104) U/L Albumin 3.3 L (3.4-5.0) gm/dl
[2023-07-09] MEDS: DIGOXIN 0.125 MG TAB PO SCH (16:29)
--- NOTE | 2023-07-09 18:05 | Infectious Disease Consult ---
Date of Service July 09, 2023 Telehealth Information I performed this visit using a real-time telehealth connection between my location and the patients location ([facility]). After connecting through interactive tele-video, patient was identified by name and date of and/or wristband check.Patient (or authorized healthcare underwriting account representative) was informed that this was a telemedicine visit and it was being conducted confidentially over secure lines. My office door was closed and no one else was present in the room with me.Patient (or authorized healthcare underwriting account representative) provided consent to proceed with the visit, expressed an understanding of privacy and security of the telemedicine visit, and gave permission to have a hospital underwriting account representative in the room in order to assist with the visit and to conduct portions of the visit, as needed. I informed the patient (or authorized healthcare underwriting account representative) that I reviewed their record and presented the opportunity for them to ask any questions regarding the visit today. The patient agreed to participate. Assessment & Plan (1) Bacterial pneumonia: (2) SOB (shortness of breath): (3) Chronic heart failure with reduced ejection fraction and diastolic dysfunction: (4) Multiple myeloma: Plan - I am actually skeptical about the diagnosis of pneumonia in our patient. He never had any fevers at home (had only 1 episode of fever in the hospital), no hypoxemia and no productive cough. Also, patient with multiple myeloma who is currently on chemotherapy tends to be sicker in cases of bacterial pneumonia. I believe that his shortness of breath is likely cardiac in origin. Nonetheless, since he was already started on cefepime/PIP Tazo, can continue on the same antibiotic for now completed course of 7 days. If there is a plan to discharge the patient prior to the 7-day duration, can stepdown to oral levofloxacin 750 mg daily to complete the course of treatment. - Thank you for consulting ID. We will sign off for now. History of Present Illness History of Present Illness Mr. Hernandez is a 78-year-old man with medical history of ischemic heart disease and chronic diastolic heart failure, HTN, type 2 diabetes, CAD with STEMI status post CABG, paroxysmal A-fib, sick sinus syndrome (status post pacemaker placement), CKD, interstitial lung disease, and multiple myeloma on chemotherapy for the last being on 05/25/2023) who was admitted to [facility] on 07/06 because of acute progressive shortness of breath. Over the last several days prior to presentation, he has been having progressive shortness of breath which started on exertion and eventually became at rest. He recently got discharged on 06/30 because of atrial fibrillation with RVR and heart failure exacerbation. His heart failure medication was optimized, and he was sent home in stable condition. At that time, he was also noticed to have left foot wound and superficial wound culture was obtained which grew both Klebsiella and Enterobacter. He was treated with IV Rocephin while inpatient and then transitioned to Cipro and discharged. On presentation he was afebrile with borderline low blood pressure at 102/54 and was saturating 95% at room air. He has been afebrile during the current admission until 07/08 when he spiked a fever of 38.8. Blood work showed leukopenia without neutropenia and his respiratory pathogen panel came back negative. CTA chest performed on admission showed no acute abnormalities and no pulmonary embolus. It demonstrated airspace opacification in the right upper lobe for pneumonia. It further showed emphysema and interstitial lung disease. ID team was consulted for further recommendations and to help with the management of suspected pneumonia. Allergies Allergy/AdvReac Type Severity Reaction Status Date / Time tizanidine Allergy Unknown UNKNOWN--ON Verified 06/25/23 13:38 [facility] [place] Medications Medication Instructions Recorded Confirmed Type apixaban 5 mg tablet (Eliquis) 5 mg PO BID 06/25/20 07/06/23 History atorvastatin 40 mg tablet 40 mg PO DAILY 06/25/20 07/06/23 History liraglutide 0.6 mg/0.1 mL (18 mg/3 1.2 mg subcut DAILY 09/30/21 07/06/23 History mL) subcutaneous pen injector (Victoza 2-Jed) ondansetron 8 mg disintegrating 8 mg PO Q8H PRN Nausea 09/30/21 07/06/23 History tablet prochlorperazine maleate 10 mg 10 mg PO Q6H PRN nausea 09/30/21 07/06/23 History tablet polyethylene glycol 3350 17 gram 17 g PO DAILY PRN constipation #15 10/05/21 07/06/23 Rx oral powder packet (Miralax) ea nitroglycerin 0.4 mg sublingual 0.4 mg sublingual .Q 5 MIN PRN 11/01/21 07/06/23 History tablet Chest Pain omega-3 fatty acids 1,000 mg 1,000 mg PO BID 04/15/22 07/06/23 History capsule docusate sodium 100 mg capsule 100 mg PO BID PRN Constipation 04/22/22 07/06/23 History (Colace) gabapentin 300 mg capsule 300 mg PO AMHS 04/22/22 07/06/23 History mecobalamin (vitamin B12) 1,000 1,000 mcg PO DAILY 04/22/22 07/06/23 History mcg chewable tablet (B12 Active) morphine 15 mg immediate release 15 mg PO Q4H PRN Pain 04/22/22 07/06/23 History tablet albuterol sulfate 90 mcg/actuation 2 puff inhalation Q6H PRN 11/04/22 07/06/23 History aerosol inhaler COUGH/SHORT OF BREATH/WHEEZING calcium carbonate 600 mg-vitamin 1 tab PO BID 11/04/22 07/06/23 History D3 10 mcg (400 unit) tablet (Calcium 600 + D(3)) digoxin 125 mcg (0.125 mg) tablet 125 mcg PO Q OTHER DAY 11/04/22 07/06/23 History lenalidomide 10 mg capsule 10 mg PO DIRECTED 11/04/22 07/06/23 History (Revlimid) potassium chloride 20 mEq 20 meq PO BID 11/04/22 07/06/23 History tablet,extended release(part/cryst) sennosides 8.6 mg tablet (senna) 17.2 mg PO HS PRN Constipation 11/04/22 07/06/23 History insulin aspart U-100 100 unit/mL 15 unit subcut TIDM 12/31/22 07/06/23 History (3 mL) subcutaneous pen (Novolog FlexPen U-100 Insulin aspart) insulin glargine 100 unit/mL (3 40 unit subcut QPM 12/31/22 07/06/23 History mL) subcutaneous pen (Basaglar KwikPen U-100 Insulin) dexamethasone 4 mg tablet 20 mg PO WK 06/25/23 07/06/23 History mirtazapine 30 mg tablet 30 mg PO HS 06/25/23 07/06/23 History omeprazole 20 mg capsule,delayed 20 mg PO QAM 06/25/23 07/06/23 History release ciprofloxacin HCl 500 mg tablet 500 mg PO BID #15 tabs 06/30/23 07/06/23 Rx furosemide 40 mg tablet 40 mg PO MoWeFr@0900 #30 tabs 06/30/23 07/06/23 Rx metoprolol succinate 25 mg 25 mg PO UD #30 tabs 06/30/23 07/06/23 Rx tablet,extended release 24 hr metoprolol succinate 50 mg 50 mg PO UD #60 tabs 06/30/23 07/06/23 Rx tablet,extended release 24 hr (Toprol XL) Patient History Medical History (Updated 07/09/23 @ 18:13 by Kat Le MD) ABDI (acute kidney injury) CAD (coronary artery disease) CHI (closed head injury) Chronic deep vein thrombosis (DVT) Diabetic ulcer of left foot Diarrhea Hallux rigidus of left foot "S/p multiple surgeries" History of basal cell carcinoma History of melanoma in situ History of pilonidal cyst HLD (hyperlipidemia) NSTEMI (non-ST elevated myocardial infarction) Pacemaker Pneumonia Type 2 diabetes mellitus Surgical History History of bone marrow biopsy History of cataract surgery History of foot surgery S/P CABG x 4 S/P Mohs surgery for basal cell carcinoma Status post total hip replacement, left Family History Mother Lymphoma Social History Smoking Status: Former smoker Tobacco Type: Cigarettes Cigarettes Per Day: 1-2 times a month; Second Hand Exposure: Yes; Do You Dip or Chew Tobacco: No; Tobacco Cessation Education Requested by Patient: No Hx Alcohol Use: Yes Alcohol type: beer Alcohol Intake Frequency: Monthly or Less Hx Substance Use: No Preferred Language: Turkmen Communication Ability: Effective Visual Impairment: No Limitations Hearing Ability: Normal Ecd Required: No Beliefs That Will Affect Care: None marital status: Current Living Situation: Spouse Current Living Situation Comment: home current occupational status: retired How many Children do You have: 1 How many Children do You have Comment: Magi lives in [facility]. able to assist with care as needed. Other Information That Helps Us Care for You: No (goes to OP wound clinic) Feels Safe at Home: Yes Safety Concerns: Feels Safe At This Time Diet: regular Diet Comment: Trying to gain weight caffeine: No during the past year weight has: decreased > 10 lbs Assistive Devices: None Assistive Devices Comment: left walking boot Review of Systems Constitutional: fatigue, but no fever or chills HEENT: no sore throat, no nasal discharge Cardiovascular: no chest pain, or palpitations Respiratory: SOB but no cough Gastrointestinal: No nausea, vomiting, diarrhea or abdominal pain : No dysuria or hesitancy, no urinary discharge Musculoskeletal/Skin: no muscle pain or skin rash Neurologic: no dizziness or headache Physical Exam couldn't be obtained as the consult was performed via telemed. Results & Data Vital Signs (Past 12 Hours) Vital Signs Temp Pulse Pulse Resp BP BP Pulse Ox 07/09/23 16:29 71 07/09/23 15:34 36.4 C L 70 17 103/46 L 96 07/09/23 15:35 71 07/09/23 10:52 36.9 C 67 17 131/62 97 07/09/23 07:15 36.3 C L 67 16 131/66 97 07/09/23 07:12 71 O2 Del Method 07/09/23 16:29 07/09/23 15:34 Room Air 07/09/23 15:35 07/09/23 10:52 Room Air 07/09/23 07:15 Room Air 07/09/23 07:12 Laboratory Results MICROBIOLOGY: 07/06: 2 sets of blood Cx NTD 07/06: Resp pathogen panel Neg Diagnostic Findings CTA chest on 07/06: 1. No acute abnormality and in particular no evidence of pulmonary embolus. 2. Airspace opacity is in the right upper lobe which may represent pneumonia. No evidence of interstitial pulmonary edema. 3. Redemonstration of emphysema and interstitial lung disease. Cardiomegaly and pacemaker.
[2023-07-09] MEDS: MoRPHine SULFATE IR 15 MG TAB (IMMEDIATE RELEASE) PO PRN (20:38)
[2023-07-09] MEDS: MIRTAZAPINE TAB 15 MG TAB PO SCH (20:38)
[2023-07-09] MEDS: METOPROLOL SUCC 25MG EXT REL TAB PO SCH (20:42)
[2023-07-09] MEDS: LANTUS PER UNIT CHARGE SQ SCH (20:43)
[2023-07-10 05:57] LABS: Albumin Globulin Ratio 1.1 (0.9-2); Albumin Level 3.2 gm/dl (3.4-5.0); BUN Creatinine Ratio 15.2 (10-20); Creatinine Clr Calc Pharmacy 38.2 ml/min; Est GFR (African American) 46.1 ml/min; Est GFR (Non-African American) 39.7 ml/min; Globulin 2.8 gm/dl (2.5-4.0); Magnesium 1.9 mg/dl (1.7-2.4); Phosphorus 2.5 mg/dl (2.5-4.9); Potassium 3.6 mmol/L (3.5-5.1)
[2023-07-10 05:59] LABS: Basophils # (auto) 0.02 K/uL (0.00-0.20); Basophils % (auto) 0.4 %; Eosinophils # (auto) 0.13 K/uL (0.00-0.50); Eosinophils % (auto) 2.8 %; Hematocrit (blood only) 26.4 % (42.0-52.0); Hemoglobin 8.8 g/dl (14.0-18.0); Immature Granulocytes # (auto) 0.11 K/uL (0.01-0.20); Immature Granulocytes % (auto) 2.3 %; Lymphocytes # (auto) 0.62 K/uL (1.20-3.40); Lymphocytes % (auto) 13.2 %; Mean Corpuscular Hemoglobin 31.2 pg (25.0-34.0); Mean Corpuscular Hgb Conc 33.3 g/dL (32.0-36.0); Mean Corpuscular Volume 93.6 fL (80.0-100.0); Mean Platelet Volume 11.5 fL (9.4-12.4); Monocytes # (auto) 0.69 K/uL (0.11-0.59); Monocytes % (auto) 14.7 %; Neutrophils # (auto) 3.12 K/uL (1.40-6.50); Neutrophils % (auto) 66.6 %; Platelet Count 152 K/uL (130-400); RDW Coefficient of Variation 14.1 % (11.5-14.5); RDW Standard Deviation 48.1 fL (36.4-46.3); Red Blood Count 2.82 M/uL (4.70-6.10); White Blood Count 4.69 K/ul (4.8-10.8)
[2023-07-10] MEDS: PIPER/TAZO 4.5g in D5W MINI-B 100 ML IV SCH ×3 (06:02→22:38)
[2023-07-10] MEDS: PANTOprazole 40 MG TAB PO SCH (08:01)
[2023-07-10] MEDS: ATORVASTATIN 40 MG TAB PO SCH (08:01)
[2023-07-10] MEDS: GABAPENTIN 300 MG CAP PO SCH ×2 (08:01→21:14)
[2023-07-10] MEDS: POTASSIUM CHLORIDE CRTAB 20 MEQ TABCR PO SCH ×2 (08:01→21:14)
[2023-07-10] MEDS: CYANOCOBALAMIN (B-12) 500 MCG TABLET PO SCH (08:01)
[2023-07-10] MEDS: OMEGA-3 (PURIFIED FISH OIL) 1 GM CAP PO SCH ×2 (08:01→21:13)
[2023-07-10] MEDS: PROCHLORPERAZINE MALEATE 10 MG TAB PO PRN (08:02)
[2023-07-10] MEDS: POLYETHYLENE (MIRALAX) 17 GM PACK PO SCH (08:02)
[2023-07-10] MEDS: CALCIUM 600MG + VIT D 400 IU TAB PO SCH ×2 (08:03→21:15)
[2023-07-10] MEDS: APIXABAN 5 MG TABLET PO SCH ×2 (08:03→21:13)
[2023-07-10] MEDS: DOCUSATE SODIUM/SENNA 50/8.6MG TAB PO SCH ×2 (08:09→21:03)
[2023-07-10] MEDS: INSULIN ASPART PER UNIT CHARGE SC SCH ×4 (08:37→21:15)
[2023-07-10] MEDS: METOPROLOL SUCC 25MG EXT REL TAB PO SCH ×2 (08:38→21:06)
[2023-07-10] MEDS: LANTUS PER UNIT CHARGE SQ SCH ×2 (08:40→21:15)
--- NOTE | 2023-07-10 12:43 | Cardiology Progress Note ---
Date of Service July 10, 2023 Assessment & Plan (1) Pneumonia: (2) Tachy-noman syndrome: (3) Atrial flutter: (4) Pacemaker: (5) Chronic heart failure with reduced ejection fraction and diastolic dysfunction: (6) Ischemic cardiomyopathy: (7) Multiple myeloma: Plan * change hold parameters on the metoprolol succinate, 75 mg by mouth two times per day with holds for HR less than 60 and SBP less than 90 mm Hg. Continue Digoxin. * Systolic BP readings of 90s to low 100s galarza not seem different than those recorded historically on other admissions * Continue Eliquis for stroke prophylaxis * He is not a good candidate for antiarrhythmic therapy with concerns of lung disease and amiodarone therapy, renal function prevents dofetilide use, low EF prevents use of Multaq and Sotalol due to CHF concerns. * Continue oral furosemide 40 mg every Wed, Wed, Wednesday to keep I/Os even given IV antibiotic therapy. Admission and Anticipated Discharge Date Admission Date: July 06, 2023 Subjective Pt seen in cardiology follow up. He is comfortable at rest. Atrial fibrillation noted on telemetry with rates well controlled at rest , but up to 150 bpm with minimal activity. Physical Exam Constitutional: no acute distress Eyes: PERRL, conjunctivae normal, anicteric sclerae Respiratory: Auscultation: no crackles, no rales and no wheezes Cardiovascular: Rate/Rhythm: + tachycardic and + irregularly irregular Extremities: no edema Gastrointestinal (Abdomen): normal bowel sounds, soft, nontender, no hepatosplenomegaly Neurologic: PERRL, EOMI, accommodation nl, no face palsy, no dysarthria Results & Data Vital Signs (Past 12 Hours) Vital Signs Temp Pulse Pulse Pulse Resp BP Pulse Ox 07/10/23 11:18 37.0 C 78 18 92/59 L 95 07/10/23 09:00 94 H 07/10/23 08:35 105/67 07/10/23 08:00 37.7 C H 86 16 93/55 L 92 07/10/23 03:30 36.3 C L 83 20 95/58 L 92 O2 Del Method 07/10/23 11:18 Room Air 07/10/23 09:00 07/10/23 08:35 07/10/23 08:00 Room Air 07/10/23 03:30 Room Air Laboratory Results Cardiac Enzymes 07/10/23 Range/Units 04:35 AST 65 H (13-39) U/L CBC 07/10/23 Range/Units 04:35 WBC 4.69 L (4.8-10.8) K/ul RBC 2.82 L (4.70-6.10) M/uL Hgb 8.8 L (14.0-18.0) g/dl Hct 26.4 L (42.0-52.0) % Plt Count 152 (130-400) K/uL Neut # (Auto) 3.12 (1.40-6.50) K/uL Lymph # (Auto) 0.62 L (1.20-3.40) K/uL [place] # (Auto) 0.69 H (0.11-0.59) K/uL Eos # (Auto) 0.13 (0.00-0.50) K/uL Baso # (Auto) 0.02 (0.00-0.20) K/uL Comprehensive Metabolic Panel 07/10/23 Range/Units 04:35 Sodium 134 L (136-145) mmol/L Potassium 3.6 (3.5-5.1) mmol/L Chloride 102 (98-107) mmol/L Carbon Dioxide 22 (21-32) mmol/L BUN 25 H (6-23) mg/dl Creatinine 1.64 H (0.6-1.4) mg/dl Glucose 112 H (70-99(Fasting)) mg/dl Calcium 8.0 L (8.6-10.3) mg/dl AST 65 H (13-39) U/L ALT 176 H (7-52) U/L Alkaline Phosphatase 95 (34-104) U/L Total Protein 6.0 (6.0-8.3) gm/dl Albumin 3.2 L (3.4-5.0) gm/dl Intake and Output 07/09/23 07/10/23 07/10/23 22:59 06:59 14:59 Intake Total 500 / 900 300 / 900 100 / 100 Output Total 600 / 2550 350 / 2550 1150 / 1150 Balance -100 / -1650 -50 / -1650 -1050 / -1050 Intake: IV 100 / 300 100 / 300 100 / 100 Piperacillin/Tazobactam 4.5 gm 100 / 200 100 / 200 100 / 100 In Dextrose 5% Mini-B 100 ml @ 25 mls/hr IV Q8H ON LICENSE OF [facility] Rx#: [id number] Oral 400 / 600 200 / 600 Output: Urine 600 / 2550 350 / 2550 1150 / 1150 Other: Weight 71.6 kg Weight Measurement Method Built in [facility] (1) Pneumonia Laterality: right Lung location: upper lobe of lung Pneumonia type: due to unspecified organism Qualified Code(s): J18.9 - Pneumonia, unspecified organism
--- NOTE | 2023-07-10 14:55 | Pharmacy Report ---
Pharmacy Glycemic Short Note 2 - Date of Service July 10, 2023 - Glycemic Short BSG Results (Last 24 hours): 07/09/23 07/09/23 07/10/23 16:21 20:27 04:35 Glucose 112 H POC Glucose 212 H 109 H 07/10/23 07/10/23 08:04 12:05 Glucose POC Glucose 185 H 275 H OUTPATIENT ANTIDIABETIC REGIMEN: * Lantus 40 units SC HS * Novolog 15 units SC TIDM * Liraglutide 1.2mg SC once daily * HbA1C: 6.9% (07/07/23) ASSESSMENT: 07/10: * Dev received 40 units of insulin yesterday, all bolus. Basal was held per provider orders for BSG < 110 mg/dL. BSGs were: 984-161-230-109 mg/dL. * Fasting BSG was 185 mg/dL this AM. Likely due to non-admin of basal yesterday. Believe patient needs basal on board soon so will split inpatient regimen to BID. Giving 25 units for now since behind. Will likely have to back off. * Trend down in postprandials yesterday. Will loosen Novolog today. 07/09: * 78 year old male admitted with pneumonia. History of DM2 on insulin therapy at home. Pharmacy consulted today to assist with glycemic management while inpatient in setting of elevated prandial BSGs. * BSGs the last 24h: 798-180-360-375-275-731oh/dL. Received 45 units of basal insulin yesterday and 21 units of bolus insulin. * Tolerating a diet and continues on antibiotics. * Given acceptable fasting BSGs, will keep basal dose of 45 units for tonight. Based upon historic glycemic data, will tighten Novolog starting at lunch to 20/5. Goal BSG also tightened to 110-140mg/dL. PLAN FOR INPATIENT GLYCEMIC CONTROL: * Basal insulin * Lantus 25 units SC BID * Bolus insulin * NovoLog per scale ACHS or Q6hrs while NPO * Goal Range: Low 110 mg/dL - High 140 mg/dL * Correction Factor: 25 mg/dL/unit * Nutritional / Prandial insulin per carb ratio of 1 unit per 8 grams CHO consumed
[2023-07-10 15:44] LABS: Influenza A virus by PCR Negative (Neg); Influenza B virus by PCR Negative (Neg); RSV by PCR Negative (Neg); SARS CoV2 RNA(COVID-19) Ceph NEGATIVE (Negative)
--- NOTE | 2023-07-10 16:25 | Hospitalist Progress Note ---
Date of Service July 10, 2023 Assessment & Plan (1) Hospital acquired PNA: (2) Chronic heart failure with reduced ejection fraction and diastolic dysfunction: (3) Anemia: (4) Tachy-noman syndrome: (5) Elevated troponin: (6) Ischemic cardiomyopathy: (7) HTN (hypertension): (8) Leg wound, left: (9) Multiple myeloma: (10) Type 2 diabetes mellitus: (11) CAD (coronary artery disease): (12) HLD (hyperlipidemia): (13) Pacemaker: (14) ABDI (acute kidney injury): Plan Mr. Hernandez is a 78-year-old gentleman with PMH of chronic systolic CHF, chronic ischemic heart disease, HTN, HLD, CAD s/p CABG, history of STEMI, paroxysmal A- fib, SSS s/p pacemaker, DM type II, peripheral neuropathy, GERD, CKD, multiple myeloma on Darzalex, revlimid and decadron, last treatment was on 05/25/2023 (currently being held), emphysema, interstitial lung disease, h/o opioid-induced constipation and other medical problems who presented with RAYGOZA. Initially thought to be related to RUL PNA iso recent hospitalization, however, procal/clinical presentation less suggestive of infectious eitology but appear more consistent with cardiac process rather than infectious source. Dyspnea on Exertion -Multifactorial: Interstitial lung disease, atrial fibrillation with RVR, acute on chronic systolic and diastolic CHF, symptomatic anemia, ? Possible pneumonia Immunocompromise state --CTA:No acute abnormality and in particular no evidence of pulmonary embolus. Airspace opacity is in the right upper lobe which may represent pneumonia. No evidence of interstitial pulmonary edema. Redemonstration of emphysema and interstitial lung disease. Cardiomegaly and pacemaker. -- Negative BioFire Normal procalcitonin Nasal MRSA Negative Saturating well on room air Plan to transition to p.o. antibiotics as able Received IV Lasix Plan to transition to p.o. diuretics as able Appreciate cardiology input May need 2 step prior to discharge Hb at baseline, monitor CBC Change cefepime to Zosyn given fever overnight, immunocompromised state Appreciate Infectious disease Input Antitussives as needed Repeat COVID screen negative Blood cultures negative to date Recheck chest x-ray. Procalcitonin tomorrow ABDI on CKD II-III Avoid nephrotoxic agents as able Monitor renal function Cr 1.6 today We will consider to hold diuretics if renal function continues to worsen Acute on Chronic Heart Failure with reduced EF (35-40% 06/2023) due to ischemic cardiomyopathy Severe Multivessel Coronary Artery Disease s/p CABG 1993 (BISHOP-LAD, gastroepiploic to RPDA, graft to OM) Atrial fibrillation Tachy-noman syndrome s/p PPM 2019 Not a candidate for amiodarone due to lung issues ? due to chemotherapeutic treatment for multiple myeloma with Darzalex faspro and Revlimid--both can increase fluid overload Diuretics as per cardiology Increase metoprolol succinate to 75 mg BID Continue digoxin Wednesday On Eliquis for anticoagulation Elevated Liver enzymes Likely due to Revlimid --Liver USD:The liver is normal in size and echotexture. No gallstones are seen Hepatitis panel negative LFTs slightly up today, hold Tylenol LFTs better Chronic troponin elevation Less likely ACS Chronic Hypotension Hypoalbuminemia likely contributing Monitor Peripheral Arterial Disease c/b left popliteal occlusion Chronic ulceration left forefoot Appears non-infectious, signs of healing/granulation tissue, no purulence Continue Wound care -Completed course of PO abx +inpatient administration of abx: cipro +2 days cefepime for Klebsiella/Enterobacter Chronic Pancytopenia Mild Neutropenia Multiple Myeloma IgA kappa with lytic bone lesions Initially dx 08/18/2021 with BM biopsy. Currently undergoing chemotherapy with Darzalex , revlimid and decadron Last received chemo 05/25: Follows with Dr. Garcia, took last dose of revlimid (possibly explaining pancytopenia), however given decline in performance status/infection, further treatment with Darzalex held Continue morphine IR 15 mg for pain, gabapentin 300 mg BID with bowel regimen Pancytopenia improving Monitor CBC DM II Last A1C 6.9 Hold home agents Basal/bolus insulin while in-patient BSG AC HS DVT Px: Eliquis Code status: DNR/DNI Admission and Anticipated Discharge Date Admission Date: July 06, 2023 Subjective Patient is seen and examined at bedside Subjectively feels unchanged from yesterday Leukopenia thrombocytopenia improving Febrile this morning Still has cough with expectoration and dyspnea on exertion No other complaints Denies any chest pain, nausea, vomiting, abdominal pain Review of Systems Review of Systems: All systems reviewed & are unremarkable except as noted in Subjective Physical Exam Physical Exam: Physical Exam: Vitals signs as noted above General Appearance:Thin, Frail, no apparent distress Head: normocephalic, Atraumatic Eyes: normal inspection, EOMI Neck: supple, Trachea midline Respiratory/Chest: Decreased breath sounds, CTA, No accessory muscle use Cardiovascular: Irregularly Irregular, No murmur Abdomen/GI:Soft, Non tender, Bowel sounds present Extremities/Musculoskeletal:normal inspection, no edema Neurologic/Psych:AAOX3, grossly no focal neurological deficits, +L small open plantar wound Skin: normal color, warm Results & Data Results & Data Vital Signs (Past 12 Hours) Vital Signs Temp Pulse Pulse Resp BP Pulse Ox O2 Del Method 07/10/23 11:18 37.0 C 78 18 92/59 L 95 Room Air 07/10/23 09:00 94 H 07/10/23 08:35 105/67 07/10/23 08:00 37.7 C H 86 16 93/55 L 92 Room Air Laboratory Results Short CBC 07/10/23 Range/Units 04:35 WBC 4.69 L (4.8-10.8) K/ul Hgb 8.8 L (14.0-18.0) g/dl Hct 26.4 L (42.0-52.0) % Plt Count 152 (130-400) K/uL BMP 07/10/23 04:35 Sodium 134 L Potassium 3.6 Chloride 102 Carbon Dioxide 22 BUN 25 H Creatinine 1.64 H Glucose 112 H Calcium 8.0 L Liver Function 07/10/23 Range/Units 04:35 Total Bilirubin 1.0 (0.2-1.0) mg/dl AST 65 H (13-39) U/L ALT 176 H (7-52) U/L Alkaline Phosphatase 95 (34-104) U/L Albumin 3.2 L (3.4-5.0) gm/dl
[2023-07-10] MEDS: MoRPHine SULFATE IR 15 MG TAB (IMMEDIATE RELEASE) PO PRN (21:13)
[2023-07-10] MEDS: MIRTAZAPINE TAB 15 MG TAB PO SCH (21:14)
[2023-07-11] MEDS: PIPER/TAZO 4.5g in D5W MINI-B 100 ML IV SCH ×3 (06:18→21:35)
[2023-07-11 06:28] LABS: Hemoglobin 8.9 g/dl (14.0-18.0); Mean Corpuscular Hemoglobin 31.2 pg (25.0-34.0); Mean Corpuscular Volume 94.7 fL (80.0-100.0); Mean Platelet Volume 11.8 fL (9.4-12.4); Platelet Count 168 K/uL (130-400); RDW Standard Deviation 48.4 fL (36.4-46.3); Red Blood Count 2.85 M/uL (4.70-6.10); White Blood Count 4.19 K/ul (4.8-10.8)
[2023-07-11 06:53] LABS: BUN Creatinine Ratio 16.9 (10-20); Calcium 8.2 mg/dl (8.6-10.3); Creatinine Clr Calc Pharmacy 39.8 ml/min; Est GFR (African American) 49.7 ml/min; Est GFR (Non-African American) 42.9 ml/min; Potassium 3.9 mmol/L (3.5-5.1)
[2023-07-11] MEDS ORDERED: LANTUS PER UNIT CHARGE SQ ONE ×3 (08:15→21:00)
[2023-07-11] MEDS: OMEGA-3 (PURIFIED FISH OIL) 1 GM CAP PO SCH ×2 (08:37→21:33)
[2023-07-11] MEDS: APIXABAN 5 MG TABLET PO SCH ×2 (08:37→21:32)
[2023-07-11] MEDS: PROCHLORPERAZINE MALEATE 10 MG TAB PO PRN (08:37)
[2023-07-11] MEDS: POTASSIUM CHLORIDE CRTAB 20 MEQ TABCR PO SCH ×2 (08:37→21:35)
[2023-07-11] MEDS: CALCIUM 600MG + VIT D 400 IU TAB PO SCH ×2 (08:37→21:32)
[2023-07-11] MEDS: GABAPENTIN 300 MG CAP PO SCH ×2 (08:37→21:33)
[2023-07-11] MEDS: PANTOprazole 40 MG TAB PO SCH (08:38)
[2023-07-11] MEDS: METOPROLOL SUCC 25MG EXT REL TAB PO SCH ×2 (08:38→20:00)
[2023-07-11] MEDS: POLYETHYLENE (MIRALAX) 17 GM PACK PO SCH (08:38)
[2023-07-11] MEDS: CYANOCOBALAMIN (B-12) 500 MCG TABLET PO SCH (08:39)
[2023-07-11] MEDS: ATORVASTATIN 40 MG TAB PO SCH (08:39)
[2023-07-11] MEDS: DOCUSATE SODIUM/SENNA 50/8.6MG TAB PO SCH ×2 (08:39→21:33)
[2023-07-11] MEDS: INSULIN ASPART PER UNIT CHARGE SC SCH ×4 (08:51→21:31)
--- NOTE | 2023-07-11 09:14 | XRay Report ---
XR chest 2V PA/lateral CLINICAL HISTORY: Pneumonia. COMPARISON STUDY: Chest radiograph and chest CT July 06, 2023. FINDINGS: Left subclavian pacer, median sternotomy wires and mediastinal surgical clips are noted. Ca rdiomediastinal silhouette is stable. There is no evidence for pulmonary edema. There is no pneumotho rax. No definite pleural effusion. Upper lobe predominant emphysema is noted. Right upper lobe consol idation has progressed. IMPRESSION: Progression of right upper lobe consolidation consistent with pneumonia. Radiographic fol low up to ensure resolution is recommended. ACT 112: Negative or not required by law. Electronically signed by: Raghu Mcgowan M.D. 07/11/2023 9:11 AM
[2023-07-11] MEDS ORDERED: VANCOMYCIN CONSULT ACTIVE PRN (09:57)
[2023-07-11] MEDS ORDERED: VANCOMYCIN HCL 1,000 MG in SODIUM CHLORIDE 0.9% 500 ML IV ONE (09:58)
[2023-07-11] MEDS ORDERED: VANCOMYCIN HCL 1,500 MG in SODIUM CHLORIDE 0.9% 500 ML IV ONE (10:15)
--- NOTE | 2023-07-11 10:32 | Cardiology Progress Note ---
Date of Service July 11, 2023 Assessment & Plan (1) Pneumonia: (2) Tachy-noman syndrome: (3) Atrial flutter: (4) Pacemaker: (5) Chronic heart failure with reduced ejection fraction and diastolic dysfunction: (6) Ischemic cardiomyopathy: (7) Multiple myeloma: Plan * Question if patient's chronic worsening shortness of breath is multifactorial with anemia / multiple myeloma, interstitial lung disease, ischemic cardiomyopathy with bypass grafts that are 30 years old (CBAG x 3 in 1993) and given fever , and CT findings underlying pneumonia still a consideration. * He is not a good candidate for antiarrhythmic therapy with concerns of lung disease and amiodarone therapy, renal function prevents dofetilide use, low EF prevents use of Multaq due to CHF concerns. * based on pacer checks he has paroxysmal AF with AF burden of 60% * Perhaps sotalol would help from a rhythm control standpoint, however his renal function (creat 1.54 today, EGFR 42 ml/min/m2) is borderline for this and it can worsen CHF. * Will obtain repeat EKG for reassessment of his QTc and continue to consider. * Continue Eliquis for stoke prophylaxis. * Continue oral furosemide 40 mg every Wed, Wed, Wednesday to keep I/Os even given IV antibiotic therapy. Admission and Anticipated Discharge Date Admission Date: July 06, 2023 Subjective Pt seen in cardiology follow up. Notes no acute worsening shortness of breath . Mild fever noted overnight with T max of 37.8 degrees C this am at 7:27 am. Telemetry reveals that he converted to SR overnight and is in SR in the 70s. Physical Exam Constitutional: no acute distress Eyes: PERRL, conjunctivae normal, anicteric sclerae Respiratory: Auscultation: no crackles, no rales and no wheezes Cardiovascular: Rate/Rhythm: + tachycardic and + irregularly irregular Extremities: no edema Gastrointestinal (Abdomen): normal bowel sounds, soft, nontender, no hepatosplenomegaly Neurologic: PERRL, EOMI, accommodation nl, no face palsy, no dysarthria Results & Data Vital Signs (Past 12 Hours) Vital Signs Temp Pulse Pulse Pulse Resp BP Pulse Ox 07/11/23 09:24 74 07/11/23 08:00 07/11/23 07:27 37.8 C H 86 19 96/58 L 91 07/11/23 03:01 36.6 C 80 20 98/60 L 96 07/10/23 23:02 37.6 C H 79 18 92/51 L 94 O2 Del Method 07/11/23 09:24 07/11/23 08:00 Room Air 07/11/23 07:27 Room Air 07/11/23 03:01 Room Air 07/10/23 23:02 Room Air (1) Pneumonia Laterality: right Lung location: upper lobe of lung Pneumonia type: due to unspecified organism Qualified Code(s): J18.9 - Pneumonia, unspecified organism
--- NOTE | 2023-07-11 10:54 | Communication Note ---
Date of Service: July 11, 2023 EKG performed at 10:40 am. SR at 75 . QTc = 469 mc Will hold off on changing his beta annika at present given CXR findings of infiltrate and fever. Will reconsider option of sotalol again tomorrow.
--- NOTE | 2023-07-11 11:03 | Electrocardiogram Report ---
Test Reason : Blood Pressure : / mmHG Vent. Rate : 075 BPM Atrial Rate : 075 BPM P-R Int : 196 ms QRS Dur : 094 ms QT Int : 420 ms P-R-T Axes : 043 072 085 degrees QTc Int : 469 ms Normal sinus rhythm Normal ECG When compared with ECG of 07-JUL-2023 05:29, Sinus rhythm has replaced Electronic ventricular pacemaker Confirmed by Mariano Ahn ([id number]) on 07/11/2023 11:02:53 AM Referred By: REFERRED SELF Confirmed By:Marv Ahn
[2023-07-11] MEDS: DEXTROMETHORPHAN POLYMR COMPLX 30 MG/5 ML UDP PO PRN (11:58)
--- NOTE | 2023-07-11 13:35 | Pharmacy Report ---
Pharmacy PK ABX Note - Date of Service July 11, 2023 - Assessment and Plan Assessment 78 year old M receiving Zosyn and vancomycin for treatment of HAP. Pertinent microbiologic data includes: negative MRSA Nasal Swab on 07/06 and 07/11. 07/[address] Larsen considering sputum sample. Per Dr. Larsen - leave vancomycin active for now until ID can evaluate tomorrow. May consider broadening gram negative coverage given CXR, fever, and immunocompromise. Plan Vancomycin * Loading dose: 1500 mg IV x 1 * Maintenance dose: 1000 mg IV every 24 hours * Regimen is predicted to achieve target AUC/KANDI of 400-600 mg/L.hr * Random level ordered for: 07/13 AM Pharmacy will continue to follow and will adjust dose/frequency as necessary. Thank you. Pharmacy has transitioned to AUC monitoring for vancomycin. AUC/KANDI is the preferred PK/PD target and is associated with decreased risk of nephrotoxicity compared to traditional trough targets.
--- NOTE | 2023-07-11 15:10 | Pharmacy Report ---
Pharmacy Glycemic Short Note 2 - Date of Service July 11, 2023 - Glycemic Short BSG Results (Last 24 hours): 07/10/23 07/10/23 07/11/23 16:51 20:41 06:06 Glucose 123 H POC Glucose 254 H 221 H 07/11/23 07/11/23 07:21 11:37 Glucose POC Glucose 137 H 228 H OUTPATIENT ANTIDIABETIC REGIMEN: * Lantus 40 units SC HS * Novolog 15 units SC TIDM * Liraglutide 1.2mg SC once daily * HbA1C: 6.9% (07/07/23) ASSESSMENT: 07/11: * Patient received 82 units of insulin yesterday, 50 units basal + 32 units bolus. BSGs were: [phone] mg/dL. Hyperglycemia likely due to no basal previous day. * Fasting BSG is 137 mg/dL this AM. Plan to get patient back to previous regimen of 45 units HS. This also matches home dosing time. Will give smaller basal dose this AM and larger dose in PM with hopes of going back to once a day at HS tomorrow. * No other changes. Remains on Zosyn. 07/10: * Dev received 40 units of insulin yesterday, all bolus. Basal was held per provider orders for BSG < 110 mg/dL. BSGs were: [phone] mg/dL. * Fasting BSG was 185 mg/dL this AM. Likely due to non-admin of basal yesterday. Believe patient needs basal on board soon so will split inpatient regimen to BID. Giving 25 units for now since behind. Will likely have to back off. * Trend down in postprandials yesterday. Will loosen Novolog today. 07/09: * 78 year old male admitted with pneumonia. History of DM2 on insulin therapy at home. Pharmacy consulted today to assist with glycemic management while inpatient in setting of elevated prandial BSGs. * BSGs the last 24h: [phone]/dL. Received 45 units of basal insulin yesterday and 21 units of bolus insulin. * Tolerating a diet and continues on antibiotics. * Given acceptable fasting BSGs, will keep basal dose of 45 units for tonight. Based upon historic glycemic data, will tighten Novolog starting at lunch to 20/5. Goal BSG also tightened to 110-140mg/dL. PLAN FOR INPATIENT GLYCEMIC CONTROL: * Basal insulin * Lantus 10 units SC AM * Lantus 35 units SC PM * Bolus insulin * NovoLog per scale ACHS or Q6hrs while NPO * Goal Range: Low 110 mg/dL - High 140 mg/dL * Correction Factor: 25 mg/dL/unit * Nutritional / Prandial insulin per carb ratio of 1 unit per 8 grams CHO consumed
[2023-07-11] MEDS: DIGOXIN 0.125 MG TAB PO SCH (15:42)
--- NOTE | 2023-07-11 16:43 | Hospitalist Progress Note ---
Date of Service July 11, 2023 Assessment & Plan (1) Hospital acquired PNA: (2) Chronic heart failure with reduced ejection fraction and diastolic dysfunction: (3) Anemia: (4) Tachy-noman syndrome: (5) Elevated troponin: (6) Ischemic cardiomyopathy: (7) HTN (hypertension): (8) Leg wound, left: (9) Multiple myeloma: (10) Type 2 diabetes mellitus: (11) CAD (coronary artery disease): (12) HLD (hyperlipidemia): (13) Pacemaker: (14) ABDI (acute kidney injury): Plan Mr. Hernandez is a 78-year-old gentleman with PMH of chronic systolic CHF, chronic ischemic heart disease, HTN, HLD, CAD s/p CABG, history of STEMI, paroxysmal A- fib, SSS s/p pacemaker, DM type II, peripheral neuropathy, GERD, CKD, multiple myeloma on Darzalex, revlimid and decadron, last treatment was on 05/25/2023 (currently being held), emphysema, interstitial lung disease, h/o opioid-induced constipation and other medical problems who presented with RAYGOZA. Initially thought to be related to RUL PNA iso recent hospitalization, however, procal/clinical presentation less suggestive of infectious eitology but appear more consistent with cardiac process rather than infectious source. Dyspnea on Exertion -Multifactorial: Interstitial lung disease, atrial fibrillation with RVR, acute on chronic systolic and diastolic CHF, symptomatic anemia, ? Possible pneumonia Immunocompromise state --CTA:No acute abnormality and in particular no evidence of pulmonary embolus. Airspace opacity is in the right upper lobe which may represent pneumonia. No evidence of interstitial pulmonary edema. Redemonstration of emphysema and interstitial lung disease. Cardiomegaly and pacemaker. -- Negative BioFire --Repeat CXR:Progression of right upper lobe consolidation consistent with pneumonia. Radiographic follow up to ensure resolution is recommended. Normal procalcitonin>>Repeat 0.58 Nasal MRSA Negative Repeat COVID screen negative Blood cultures negative to date Saturating well on room air Received IV Lasix Currently on PO Lasix MWF Appreciate cardiology input May need 2 step prior to discharge Hb at baseline, monitor CBC Change cefepime to Zosyn given fever overnight, immunocompromised state Added Vancomycin Appreciate Infectious disease Input --Will discuss again tmw given persistent fever Saturating well on room Check sputum culture ABDI on CKD II-III Avoid nephrotoxic agents as able Monitor renal function Cr 1.5 today We will consider to hold diuretics if renal function continues to worsen Acute on Chronic Heart Failure with reduced EF (35-40% 06/2023) due to ischemic cardiomyopathy Severe Multivessel Coronary Artery Disease s/p CABG 1993 (BISHOP-LAD, gastroepiploic to RPDA, graft to OM) Atrial fibrillation Tachy-noman syndrome s/p PPM 2019 Not a candidate for amiodarone due to lung issues ? due to chemotherapeutic treatment for multiple myeloma with Darzalex faspro and Revlimid--both can increase fluid overload Diuretics as per cardiology Increase metoprolol succinate to 75 mg BID Continue digoxin On Eliquis for anticoagulation Elevated Liver enzymes Likely due to Revlimid --Liver USD:The liver is normal in size and echotexture. No gallstones are seen Hepatitis panel negative LFTs improving Chronic troponin elevation Less likely ACS Chronic Hypotension Hypoalbuminemia likely contributing Monitor Peripheral Arterial Disease c/b left popliteal occlusion Chronic ulceration left forefoot Appears non-infectious, signs of healing/granulation tissue, no purulence Continue Wound care -Completed course of PO abx +inpatient administration of abx: cipro +2 days cefepime for Klebsiella/Enterobacter Chronic Pancytopenia Mild Neutropenia Multiple Myeloma IgA kappa with lytic bone lesions Initially dx 08/18/2021 with BM biopsy. Currently undergoing chemotherapy with Darzalex , revlimid and decadron Last received chemo 05/25: Follows with Dr. Garcia, took last dose of revlimid (possibly explaining pancytopenia), however given decline in performance status/infection, further treatment with Darzalex held Continue morphine IR 15 mg for pain, gabapentin 300 mg BID with bowel regimen Pancytopenia improving Monitor CBC DM II Last A1C 6.9 Hold home agents Basal/bolus insulin while in-patient BSG AC HS DVT Px: Eliquis Code status: DNR/DNI Admission and Anticipated Discharge Date Admission Date: July 06, 2023 Subjective Patient is seen and examined at bedside Low-grade fever this morning Chest x-ray today suggestive of worsening pneumonia Continues to complain of cough, dyspnea No other complaints Denies any chest pain, nausea, vomiting, abdominal pain Review of Systems Review of Systems: All systems reviewed & are unremarkable except as noted in Subjective Physical Exam Physical Exam: Physical Exam: Vitals signs as noted above General Appearance:Thin, Frail, no apparent distress Head: normocephalic, Atraumatic Eyes: normal inspection, EOMI Neck: supple, Trachea midline Respiratory/Chest: Decreased breath sounds, CTA, No accessory muscle use Cardiovascular: Irregularly Irregular, No murmur Abdomen/GI:Soft, Non tender, Bowel sounds present Extremities/Musculoskeletal:normal inspection, no edema Neurologic/Psych:AAOX3, grossly no focal neurological deficits, +L small open plantar wound Skin: normal color, warm Results & Data Results & Data Vital Signs (Past 12 Hours) Vital Signs Temp Pulse Pulse Pulse Resp BP Pulse Ox 07/11/23 15:54 36.4 C L 73 19 115/69 94 07/11/23 16:19 70 07/11/23 15:42 71 07/11/23 11:44 36.9 C 66 19 96/59 L 91 07/11/23 09:24 74 07/11/23 08:00 07/11/23 07:27 37.8 C H 86 19 96/58 L 91 O2 Del Method 07/11/23 15:54 Room Air 07/11/23 16:19 07/11/23 15:42 07/11/23 11:44 Room Air 07/11/23 09:24 07/11/23 08:00 Room Air 07/11/23 07:27 Room Air Laboratory Results Short CBC 07/11/23 Range/Units 06:06 WBC 4.19 L (4.8-10.8) K/ul Hgb 8.9 L (14.0-18.0) g/dl Hct 27.0 L (42.0-52.0) % Plt Count 168 (130-400) K/uL BMP 07/11/23 06:06 Sodium 136 Potassium 3.9 Chloride 106 Carbon Dioxide 19 L BUN 26 H Creatinine 1.54 H Glucose 123 H Calcium 8.2 L
[2023-07-11] MEDS: MIRTAZAPINE TAB 15 MG TAB PO SCH (21:34)
[2023-07-12 05:27] LABS: Hematocrit (blood only) 23.3 % (42.0-52.0); Hemoglobin 7.5 g/dl (14.0-18.0); Mean Corpuscular Hemoglobin 31.3 pg (25.0-34.0); Mean Corpuscular Hgb Conc 32.2 g/dL (32.0-36.0); Mean Corpuscular Volume 97.1 fL (80.0-100.0); Mean Platelet Volume 10.6 fL (9.4-12.4); Platelet Count 152 K/uL (130-400); RDW Coefficient of Variation 14.2 % (11.5-14.5); RDW Standard Deviation 50.5 fL (36.4-46.3); White Blood Count 3.19 K/ul (4.8-10.8)
[2023-07-12 05:46] LABS: BUN Creatinine Ratio 14.7 (10-20); Bilirubin Direct 0.3 mg/dl (0-0.2); Bilirubin,Total 0.7 mg/dl (0.2-1.0); Creatinine Clr Calc Pharmacy 40.9 ml/min; Est GFR (African American) 51.3 ml/min; Est GFR (Non-African American) 44.3 ml/min; Potassium 3.6 mmol/L (3.5-5.1); Total Protein 5.8 gm/dl (6.0-8.3)
[2023-07-12] MEDS: PIPER/TAZO 4.5g in D5W MINI-B 100 ML IV SCH ×3 (06:19→21:25)
[2023-07-12] MEDS: METOPROLOL SUCC 25MG EXT REL TAB PO SCH ×2 (08:11→21:20)
[2023-07-12] MEDS: PANTOprazole 40 MG TAB PO SCH (08:26)
[2023-07-12] MEDS: CALCIUM 600MG + VIT D 400 IU TAB PO SCH ×2 (08:26→21:19)
[2023-07-12] MEDS: DOCUSATE SODIUM/SENNA 50/8.6MG TAB PO SCH ×2 (08:26→21:20)
[2023-07-12] MEDS: GABAPENTIN 300 MG CAP PO SCH ×2 (08:26→21:20)
[2023-07-12] MEDS: CYANOCOBALAMIN (B-12) 500 MCG TABLET PO SCH (08:26)
[2023-07-12] MEDS: POLYETHYLENE (MIRALAX) 17 GM PACK PO SCH (08:26)
[2023-07-12] MEDS: APIXABAN 5 MG TABLET PO SCH ×2 (08:26→21:19)
[2023-07-12] MEDS: POTASSIUM CHLORIDE CRTAB 20 MEQ TABCR PO SCH ×2 (08:26→21:21)
[2023-07-12] MEDS: ATORVASTATIN 40 MG TAB PO SCH (08:26)
[2023-07-12] MEDS: OMEGA-3 (PURIFIED FISH OIL) 1 GM CAP PO SCH ×2 (08:26→21:20)
[2023-07-12] MEDS: INSULIN ASPART PER UNIT CHARGE SC SCH ×4 (08:32→21:13)
[2023-07-12] MEDS ORDERED: SODIUM CHLORIDE 0.9% 250 ML IV PRN (09:35)
[2023-07-12] MEDS ORDERED: VANCOMYCIN HCL 1,000 MG in SODIUM CHLORIDE 0.9% 250 ML IV SCH (10:00)
[2023-07-12 10:06] LABS: Reticulocyte % 1.1 % (0.5-2.0); Reticulocytes # 0.03 10^6/uL (0.02-0.10)
--- NOTE | 2023-07-12 10:07 | Cardiology Progress Note ---
Date of Service July 12, 2023 Assessment & Plan (1) Pneumonia: (2) Tachy-noman syndrome: (3) Atrial flutter: (4) Pacemaker: (5) Chronic heart failure with reduced ejection fraction and diastolic dysfunction: (6) Ischemic cardiomyopathy: (7) Multiple myeloma: Plan * Question if patient's chronic worsening shortness of breath is multifactorial with anemia / multiple myeloma, interstitial lung disease, ischemic cardiomyopathy with bypass grafts that are 30 years old (CBAG x 3 in 1993) and given fever , and CT findings underlying pneumonia still a consideration. * Hgb down to 7.5g/dl on 07/12/23, LFTs trending up. Pt to received transfusion of 1 unit irradiated PRBCs, will plan of furosemide 20 mg IV with the transfusion. * He is not a good candidate for antiarrhythmic therapy with concerns of lung disease and amiodarone therapy, renal function prevents dofetilide use, low EF prevents use of Multaq due to CHF concerns. * based on pacer checks he has paroxysmal AF with AF burden of 60% * Perhaps sotalol would help from a rhythm control standpoint, however his renal function (creat 1.54 today, EGFR 42 ml/min/m2) is borderline for this and it can worsen CHF. * Continue metoprolol. * Continue Eliquis for stoke prophylaxis. * oral furosemide on hold for anticipated IV dose today. Admission and Anticipated Discharge Date Admission Date: July 06, 2023 Subjective Patient seen in follow up. No acute complaints. Brief episodes of rate controlled AF last night, however, in SR with atrial pacing in the 70s now. Physical Exam Constitutional: no acute distress Eyes: PERRL, conjunctivae normal, anicteric sclerae Respiratory: Auscultation: no crackles, no rales and no wheezes Cardiovascular: Rate/Rhythm: + tachycardic and + irregularly irregular Extremities: no edema Gastrointestinal (Abdomen): normal bowel sounds, soft, nontender, no hepatospl enomegaly Neurologic: PERRL, EOMI, accommodation nl, no face palsy, no dysarthria Results & Data Vital Signs (Past 12 Hours) Vital Signs Temp Pulse Pulse Pulse Resp BP Pulse Ox 07/12/23 07:49 36.9 C 60 20 86/43 L 97 07/12/23 03:00 36.2 C L 55 L 20 118/65 94 07/11/23 23:00 70 07/11/23 22:39 37.0 C 60 16 104/56 L 91 O2 Del Method 07/12/23 07:49 Room Air 07/12/23 03:00 Room Air 07/11/23 23:00 07/11/23 22:39 Room Air (1) Pneumonia Laterality: right Lung location: upper lobe of lung Pneumonia type: due to unspecified organism Qualified Code(s): J18.9 - Pneumonia, unspecified organism
[2023-07-12] MEDS ORDERED: SODIUM CHLORIDE 0.9% 1,000 ML IV SCH (10:30)
[2023-07-12] MEDS ORDERED: AcetylCYSTEINE IV 21 HR REGIMEN (>40KG) IV STA (10:42)
--- NOTE | 2023-07-12 10:47 | Gastrointestinal Consultation ---
Date of Consultation July 12, 2023 Assessment & Plan (1) Elevated LFTs: Pt is a 78 yo male seen for transaminitis. PMHx significant for cardiac disease as noted above, multiple myeloma last chemo 05/25, ILD. On admission, his symptoms were SOB and RAYGOZA. Noted his EF decreased from last year to this year. He also has possible pneumonia. LFTs were previously normal in OP setting, and most recently significant increase was from yesterday to today. Noted that he received Vancomycin yesterday. Liver u/s unremarkable. DDx: DILI (antibx), infection, congestive hepatopathy - Trend LFTs - Consider stopping Vancomycin and use alternate antibx for pneumonia treatment - N-Acetylcysteine 21hr protocol - If LFTs did not trend down, obtain AIH, viral hepatitis serologies - Avoid hepatotoxic meds. No APAP >2g a day if needed Supervising Physician Co-Signing Physician Notes Admitted with sob - thought to be pna, also noted to have a reduction in his ef per echo in 07/10 compared to prior echo. Gi consulted for transaminitis. Outpatient labs reveal normal lft's up until 07/10 with mild transaminitis, now with elevation in ast/alt/alk phos, also slight elevation in lactate and low bp. Overall the etiology of his elevated lft's can be from passive congestie hepatopathy, in addition to possibly mild dili from vancomycin. Agree with further plan of care as documented - empiric nac, stop vanco and choose an alternative, ideally optimize chf/bp, trend lft's. History of Present Illness Reason for Consultation: Transaminitis Requesting Physician: Dr. Bhavesh Larsen Attending Physician: Dr. Clair Cortes History of Present Illness Pt is a 78 yo male w PMHx of CHF, ischemic ischemic heart disease, HTN, HLD, CAD s/p CABG, history of STEMI, paroxysmal A-fib on Eliquis, SSS s/p pacemaker, DM type II, peripheral neuropathy, GERD, CKD, multiple myeloma on Darzalex, revlimid and decadron, last treatment was on 05/25/2023 (currently being held), emphysema, interstitial lung disease, h/o opioid-induced constipation and other medical problems who presents with worsening shortness of breath and RAYGOZA. Workup showed he has ILD w possible pneumonia. It is also noted that his EF was decreased from 55% to 35% between 2021 and last admission. His LFTs were previously normal on outpt labs and had been noted to be elevated during this admission: normal Tbili, but AST/ALT fluctuates from 100s, till this AM it went up >300s. Pt denies hx of liver disease in personal or family hx. Denies jaundice, abd pain, n/v, leg edema. He denies herbal supplements or new vitamins, APAP uses. Noted that he received Vancomycin IV yesterday. Liver us unremarkable. Allergies Allergy/AdvReac Type Severity Reaction Status Date / Time tizanidine Allergy Unknown UNKNOWN--ON Verified 06/25/23 13:38 [facility] [place] MED LIST Home Medications Medication Instructions Recorded Confirmed Type apixaban 5 mg tablet (Eliquis) 5 mg PO BID 06/25/20 07/06/23 History atorvastatin 40 mg tablet 40 mg PO DAILY 06/25/20 07/06/23 History liraglutide 0.6 mg/0.1 mL (18 mg/3 1.2 mg subcut DAILY 09/30/21 07/06/23 History mL) subcutaneous pen injector (Victoza 2-Jed) ondansetron 8 mg disintegrating 8 mg PO Q8H PRN Nausea 09/30/21 07/06/23 History tablet prochlorperazine maleate 10 mg 10 mg PO Q6H PRN nausea 09/30/21 07/06/23 History tablet polyethylene glycol 3350 17 gram 17 g PO DAILY PRN constipation #15 10/05/21 07/06/23 Rx oral powder packet (Miralax) ea nitroglycerin 0.4 mg sublingual 0.4 mg sublingual .Q 5 MIN PRN 11/01/21 07/06/23 History tablet Chest Pain omega-3 fatty acids 1,000 mg 1,000 mg PO BID 04/15/22 07/06/23 History capsule docusate sodium 100 mg capsule 100 mg PO BID PRN Constipation 04/22/22 07/06/23 History (Colace) gabapentin 300 mg capsule 300 mg PO AMHS 04/22/22 07/06/23 History mecobalamin (vitamin B12) 1,000 1,000 mcg PO DAILY 04/22/22 07/06/23 History mcg chewable tablet (B12 Active) morphine 15 mg immediate release 15 mg PO Q4H PRN Pain 04/22/22 07/06/23 History tablet albuterol sulfate 90 mcg/actuation 2 puff inhalation Q6H PRN 11/04/22 07/06/23 History aerosol inhaler COUGH/SHORT OF BREATH/WHEEZING calcium carbonate 600 mg-vitamin 1 tab PO BID 11/04/22 07/06/23 History D3 10 mcg (400 unit) tablet (Calcium 600 + D(3)) digoxin 125 mcg (0.125 mg) tablet 125 mcg PO Q OTHER DAY 11/04/22 07/06/23 History lenalidomide 10 mg capsule 10 mg PO DIRECTED 11/04/22 07/06/23 History (Revlimid) potassium chloride 20 mEq 20 meq PO BID 11/04/22 07/06/23 History tablet,extended release(part/cryst) sennosides 8.6 mg tablet (senna) 17.2 mg PO HS PRN Constipation 11/04/22 07/06/23 History insulin aspart U-100 100 unit/mL 15 unit subcut TIDM 12/31/22 07/06/23 History (3 mL) subcutaneous pen (Novolog FlexPen U-100 Insulin aspart) insulin glargine 100 unit/mL (3 40 unit subcut QPM 12/31/22 07/06/23 History mL) subcutaneous pen (Basaglar KwikPen U-100 Insulin) dexamethasone 4 mg tablet 20 mg PO WK 06/25/23 07/06/23 History mirtazapine 30 mg tablet 30 mg PO HS 06/25/23 07/06/23 History omeprazole 20 mg capsule,delayed 20 mg PO QAM 06/25/23 07/06/23 History release ciprofloxacin HCl 500 mg tablet 500 mg PO BID #15 tabs 06/30/23 07/06/23 Rx furosemide 40 mg tablet 40 mg PO MoWeFr@0900 #30 tabs 06/30/23 07/06/23 Rx metoprolol succinate 25 mg 25 mg PO UD #30 tabs 06/30/23 07/06/23 Rx tablet,extended release 24 hr metoprolol succinate 50 mg 50 mg PO UD #60 tabs 06/30/23 07/06/23 Rx tablet,extended release 24 hr (Toprol XL) Patient History Medical History ABDI (acute kidney injury) CAD (coronary artery disease) CHI (closed head injury) Chronic deep vein thrombosis (DVT) Diabetic ulcer of left foot Diarrhea Hallux rigidus of left foot "S/p multiple surgeries" History of basal cell carcinoma History of melanoma in situ History of pilonidal cyst HLD (hyperlipidemia) NSTEMI (non-ST elevated myocardial infarction) Pacemaker Pneumonia Type 2 diabetes mellitus Surgical History History of bone marrow biopsy History of cataract surgery History of foot surgery S/P CABG x 4 S/P Mohs surgery for basal cell carcinoma Status post total hip replacement, left Family History Mother Lymphoma Social History Smoking Status: Former smoker Tobacco Type: Cigarettes Cigarettes Per Day: 1-2 times a month; Second Hand Exposure: Yes; Do You Dip or Chew Tobacco: No; Tobacco Cessation Education Requested by Patient: No Hx Alcohol Use: Yes Alcohol type: beer Alcohol Intake Frequency: Monthly or Less Hx Substance Use: No Preferred Language: Occitan Communication Ability: Effective Visual Impairment: No Limitations Hearing Ability: Normal Synthetic Resin Operator Required: No Beliefs That Will Affect Care: None marital status: Current Living Situation: Spouse Current Living Situation Comment: home current occupational status: retired How many Children do You have: 1 How many Children do You have Comment: Magi lives in [facility]. able to assist with care as needed. Other Information That Helps Us Care for You: No (goes to OP wound clinic) Feels Safe at Home: Yes Safety Concerns: Feels Safe At This Time Diet: regular Diet Comment: Trying to gain weight caffeine: No during the past year weight has: decreased > 10 lbs Assistive Devices: None Assistive Devices Comment: left walking boot Review of Systems Review of Systems: All systems reviewed & are unremarkable except as noted in HPI & below Physical Exam Constitutional: WD/WN, vitals as above well groomed, cooperative and comfortable Eyes: PERRL, conjunctivae normal, anicteric sclerae ENMT: external ear and nose normal, oropharynx normal Respiratory: normal respiratory effort, lungs clear to auscultation Cardiovascular: RRR, no murmur, no edema Gastrointestinal (Abdomen): normal bowel sounds, soft, nontender, no hepatosplenomegaly Skin: no rashes, warm and dry no jaundice Psychiatric: A+Ox3, euthymic affect Lymphatic: no lymphedema Results & Data Vital Signs (Past 12 Hours) Vital Signs Temp Pulse Pulse Pulse Resp BP Pulse Ox 07/12/23 07:49 36.9 C 60 20 86/43 L 97 07/12/23 03:00 36.2 C L 55 L 20 118/65 94 07/11/23 23:00 70 O2 Del Method 07/12/23 07:49 Room Air 07/12/23 03:00 Room Air 07/11/23 23:00
[2023-07-12] MEDS ORDERED: ACETYLCYSTEINE IV ONE ×3 (11:00→16:00)
[2023-07-12] MEDS ORDERED: DEXTROSE 5% IV ONE ×3 (11:00→16:00)
[2023-07-12] MEDS ORDERED: SODIUM CHLORIDE 0.9% 500 ML IV ONE (11:14)
[2023-07-12] MEDS: MoRPHine SULFATE IR 15 MG TAB (IMMEDIATE RELEASE) PO PRN ×2 (12:18→21:22)
[2023-07-12] MEDS ORDERED: FUROSEMIDE IV ONE (14:00)
[2023-07-12] MEDS ORDERED: FUROSEMIDE INJ 20 MG/2 ML VIAL IV ONE (14:00)
--- NOTE | 2023-07-12 14:48 | Hospitalist Progress Note ---
Date of Service July 12, 2023 Assessment & Plan (1) Hospital acquired PNA: (2) Chronic heart failure with reduced ejection fraction and diastolic dysfunction: (3) Anemia: (4) Tachy-noman syndrome: (5) Elevated troponin: (6) Ischemic cardiomyopathy: (7) HTN (hypertension): (8) Leg wound, left: (9) Multiple myeloma: (10) Type 2 diabetes mellitus: (11) CAD (coronary artery disease): (12) HLD (hyperlipidemia): (13) Pacemaker: (14) ABDI (acute kidney injury): Plan Mr. Hernandez is a 78-year-old gentleman with PMH of chronic systolic CHF, chronic ischemic heart disease, HTN, HLD, CAD s/p CABG, history of STEMI, paroxysmal A- fib, SSS s/p pacemaker, DM type II, peripheral neuropathy, GERD, CKD, multiple myeloma on Darzalex, revlimid and decadron, last treatment was on 05/25/2023 (currently being held), emphysema, interstitial lung disease, h/o opioid-induced constipation and other medical problems who presented with RAYGOZA. Initially thought to be related to RUL PNA iso recent hospitalization, however, procal/clinical presentation less suggestive of infectious eitology but appear more consistent with cardiac process rather than infectious source. Dyspnea on Exertion -Multifactorial: Interstitial lung disease, atrial fibrillation with RVR, acute on chronic systolic and diastolic CHF, symptomatic anemia, ? Possible pneumonia Immunocompromise state --CTA:No acute abnormality and in particular no evidence of pulmonary embolus. Airspace opacity is in the right upper lobe which may represent pneumonia. No evidence of interstitial pulmonary edema. Redemonstration of emphysema and interstitial lung disease. Cardiomegaly and pacemaker. -- Negative BioFire --Repeat CXR:Progression of right upper lobe consolidation consistent with pneumonia. Radiographic follow up to ensure resolution is recommended. Normal procalcitonin>>Repeat 0.58 Nasal MRSA Negative Repeat COVID screen negative Blood cultures negative to date Saturating well on room air Received IV Lasix Currently on PO Lasix MWF Appreciate cardiology input May need 2 step prior to discharge Hb at baseline, monitor CBC Change cefepime to Zosyn given fever overnight, immunocompromised state Added Vancomycin Appreciate Infectious disease Input --Will discuss again tmw given persistent fever Saturating well on room sputum culture--preliminary no growth Afebrile today Given symptomatic anemia, will transfuse 1 unit PRBC Monitor H&H ABDI on CKD II-III Avoid nephrotoxic agents as able Monitor renal function Cr 1.5 today We will consider to hold diuretics if renal function continues to worsen Acute on Chronic Heart Failure with reduced EF (35-40% 06/2023) due to ischemic cardiomyopathy Severe Multivessel Coronary Artery Disease s/p CABG 1993 (IBSHOP-LAD, gastroepiploic to RPDA, graft to OM) Atrial fibrillation Tachy-noman syndrome s/p PPM 2019 Not a candidate for amiodarone due to lung issues ? due to chemotherapeutic treatment for multiple myeloma with Darzalex faspro and Revlimid--both can increase fluid overload Diuretics as per cardiology Increase metoprolol succinate to 75 mg BID Continue digoxin On Eliquis for anticoagulation Elevated Liver enzymes Likely due to Revlimid DD: DILI --Liver USD:The liver is normal in size and echotexture. No gallstones are seen Hepatitis panel negative Appreciate GI input On N-acetylcysteine 24-hour protocol Monitor LFTs AIH, viral serology pending Chronic troponin elevation Less likely ACS Chronic Hypotension Hypoalbuminemia likely contributing Monitor Peripheral Arterial Disease c/b left popliteal occlusion Chronic ulceration left forefoot Appears non-infectious, signs of healing/granulation tissue, no purulence Continue Wound care -Completed course of PO abx +inpatient administration of abx: cipro +2 days cefepime for Klebsiella/Enterobacter Chronic Pancytopenia Mild Neutropenia Multiple Myeloma IgA kappa with lytic bone lesions Initially dx 08/18/2021 with BM biopsy. Currently undergoing chemotherapy with Darzalex , revlimid and decadron Last received chemo 05/25: Follows with Dr. Garcia, took last dose of revlimid (possibly explaining pancytopenia), however given decline in performance status/infection, further treatment with Darzalex held Continue morphine IR 15 mg for pain, gabapentin 300 mg BID with bowel regimen Pancytopenia improving Monitor CBC DM II Last A1C 6.9 Hold home agents Basal/bolus insulin while in-patient BSG AC HS DVT Px: Eliquis Code status: DNR/DNI Admission and Anticipated Discharge Date Admission Date: July 06, 2023 Subjective Patient is seen and examined at bedside Subjectively feels about the same as yesterday Hypotensive this morning, improved with IV fluids LFTs trending up Afebrile today Admits to having minimal hemoptysis Reports cough, dyspnea on exertion Denies any chest pain, nausea, vomiting, abdominal pain Review of Systems Review of Systems: All systems reviewed & are unremarkable except as noted in Subjective Physical Exam Physical Exam: Physical Exam: Vitals signs as noted above General Appearance:Thin, Frail, no apparent distress Head: normocephalic, Atraumatic Eyes: normal inspection, EOMI Neck: supple, Trachea midline Respiratory/Chest: Decreased breath sounds, CTA, No accessory muscle use Cardiovascular: Irregularly Irregular, No murmur Abdomen/GI:Soft, Non tender, Bowel sounds present Extremities/Musculoskeletal:normal inspection, no edema Neurologic/Psych:AAOX3, grossly no focal neurological deficits, +L small open plantar wound Skin: normal color, warm Results & Data Results & Data Vital Signs (Past 12 Hours) Vital Signs Temp Pulse Pulse Resp BP Pulse Ox O2 Del Method 07/12/23 11:58 36.9 C 61 18 146/91 H 95 Room Air 07/12/23 11:02 Room Air 07/12/23 07:49 36.9 C 60 20 86/43 L 97 Room Air 07/12/23 03:00 36.2 C L 55 L 20 118/65 94 Room Air Laboratory Results Short CBC 07/12/23 Range/Units 04:13 WBC 3.19 L (4.8-10.8) K/ul Hgb 7.5 L (14.0-18.0) g/dl Hct 23.3 L (42.0-52.0) % Plt Count 152 (130-400) K/uL BMP 07/12/23 04:13 Sodium 139 Potassium 3.6 Chloride 110 H Carbon Dioxide 22 BUN 22 Creatinine 1.50 H Glucose 75 Calcium 8.0 L Liver Function 07/12/23 Range/Units 04:13 Total Bilirubin 0.7 (0.2-1.0) mg/dl Direct Bilirubin 0.3 H (0-0.2) mg/dl AST 333 H (13-39) U/L ALT 341 H (7-52) U/L Alkaline Phosphatase 165 H (34-104) U/L Albumin 3.0 L (3.4-5.0) gm/dl
--- NOTE | 2023-07-12 17:11 | Communication Note ---
Date of Service: July 12, 2023 Given Sputum Cultures negative, MRSA screen Negative, Will DC Vancomycin. Discussed with ID today.
[2023-07-12] MEDS ORDERED: ACETAMINOPHEN 325 MG TAB PO PRN (20:38)
[2023-07-12 20:51] LABS: Hematocrit (blood only) 23.4 % (42.0-52.0); Hemoglobin 7.8 g/dl (14.0-18.0)
[2023-07-12] MEDS ORDERED: LANTUS PER UNIT CHARGE SQ SCH (21:00)
[2023-07-12] MEDS: MIRTAZAPINE TAB 15 MG TAB PO SCH (21:21)
[2023-07-13] MEDS: PIPER/TAZO 4.5g in D5W MINI-B 100 ML IV SCH ×3 (06:24→21:51)
[2023-07-13] MEDS ORDERED: SODIUM CHLORIDE 0.9% 250 ML IV PRN (09:01)
[2023-07-13] MEDS: DOCUSATE SODIUM/SENNA 50/8.6MG TAB PO SCH ×2 (09:02→21:56)
[2023-07-13] MEDS: METOPROLOL SUCC 25MG EXT REL TAB PO SCH ×2 (09:02→21:55)
[2023-07-13] MEDS: CYANOCOBALAMIN (B-12) 500 MCG TABLET PO SCH (09:02)
[2023-07-13] MEDS: ATORVASTATIN 40 MG TAB PO SCH (09:02)
[2023-07-13] MEDS: GABAPENTIN 300 MG CAP PO SCH ×2 (09:02→21:56)
[2023-07-13] MEDS: INSULIN ASPART PER UNIT CHARGE SC SCH ×4 (09:02→21:55)
[2023-07-13] MEDS: APIXABAN 5 MG TABLET PO SCH ×2 (09:02→21:56)
[2023-07-13] MEDS: OMEGA-3 (PURIFIED FISH OIL) 1 GM CAP PO SCH ×2 (09:02→21:56)
[2023-07-13] MEDS: POLYETHYLENE (MIRALAX) 17 GM PACK PO SCH (09:02)
[2023-07-13] MEDS: CALCIUM 600MG + VIT D 400 IU TAB PO SCH ×2 (09:02→21:56)
[2023-07-13] MEDS: PANTOprazole 40 MG TAB PO SCH (09:03)
[2023-07-13] MEDS: POTASSIUM CHLORIDE CRTAB 20 MEQ TABCR PO SCH ×2 (09:03→21:54)
[2023-07-13] MEDS ORDERED: VANCOMYCIN LEVEL ONE (09:30)
--- NOTE | 2023-07-13 10:05 | Gastroenterology Progress Note ---
Date of Service July 13, 2023 Assessment & Plan (1) Elevated LFTs: Plan: Pt is a 78 yo male seen for transaminitis. PMHx significant for cardiac disease as noted above, multiple myeloma last chemo 05/25, ILD. On admission, his symptoms were SOB and RAYGOZA. Noted his EF decreased from last year to this year. He also has possible pneumonia. LFTs were previously normal in OP setting, and most recently significant increase was from yesterday to today. Noted that he received Vancomycin 07/11-. Liver u/s unremarkable. DDx: DILI (antibx), infection, congestive hepatopathy Vancomycin DC'd. He received NAC infusion. - Trend LFTs (AM labs currently unavailable) - If LFTs did not trend down, obtain AIH, viral hepatitis serologies - Avoid hepatotoxic meds. No APAP >2g a day if needed - Optimize CHF Admission and Anticipated Discharge Date Admission Date: July 06, 2023 Supervising Physician Co-Signing Physician Notes Consult was done yesterday for transaminitis, suspecting it is from mild dili +/- chf. Received nac yesterday, vancomcyin dc'd. Awaiting lft's today Agree with further plan of care as documented. Subjective Patient received 1 unit of PRBC transfusion. Denies any chest pain, shortness of breath, abdominal pain, nausea or vomiting. A.m. labs pending Review of Systems Review of Systems: All systems reviewed & are unremarkable except as noted in HPI & below Physical Exam Constitutional: WD/WN, vitals as above well groomed, cooperative and comfortable Eyes: PERRL, conjunctivae normal, anicteric sclerae ENMT: external ear and nose normal, oropharynx normal Respiratory: normal respiratory effort, lungs clear to auscultation Cardiovascular: RRR, no murmur, no edema Gastrointestinal (Abdomen): normal bowel sounds, soft, nontender, no hepatosplenomegaly Skin: no rashes, warm and dry no jaundice Psychiatric: A+Ox3, euthymic affect Lymphatic: no lymphedema Results & Data Vital Signs (Past 12 Hours) Vital Signs Temp Pulse Pulse Pulse Resp BP BP 07/13/23 07:33 36.9 C 78 18 07/13/23 07:25 36.9 C 75 18 96/59 L 07/13/23 06:25 36.5 C 76 16 98/62 L 07/13/23 05:55 36.6 C 82 16 93/65 L 07/13/23 05:40 36.4 C L 77 16 97/52 L 07/13/23 05:24 36.4 C L 82 16 94/61 L 07/13/23 03:18 88 07/13/23 02:44 36.4 C L 80 16 108/62 07/12/23 22:47 36.9 C 73 16 BP Pulse Ox O2 Del Method 07/13/23 07:33 96/59 L 96 Room Air 07/13/23 07:25 97 07/13/23 06:25 97 07/13/23 05:55 97 07/13/23 05:40 95 07/13/23 05:24 92 07/13/23 03:18 07/13/23 02:44 98 Room Air 07/12/23 22:47 91/59 L 96 Room Air
[2023-07-13 11:03] LABS: Bilirubin,Total 0.7 mg/dl (0.2-1.0); Calcium 7.9 mg/dl (8.6-10.3); Magnesium 1.8 mg/dl (1.7-2.4); Potassium 3.7 mmol/L (3.5-5.1)
[2023-07-13 11:11] LABS: Basophils # (auto) 0.05 K/uL (0.00-0.20); Basophils % (auto) 1.4 %; Eosinophils # (auto) 0.12 K/uL (0.00-0.50); Eosinophils % (auto) 3.4 %; Hematocrit (blood only) 29.8 % (42.0-52.0); Hemoglobin 10.5 g/dl (14.0-18.0); Immature Granulocytes # (auto) 0.12 K/uL (0.01-0.20); Immature Granulocytes % (auto) 3.4 %; Lymphocytes # (auto) 0.36 K/uL (1.20-3.40); Lymphocytes % (auto) 10.3 %; Mean Corpuscular Hgb Conc 35.2 g/dL (32.0-36.0); Mean Corpuscular Volume 87.9 fL (80.0-100.0); Monocytes # (auto) 0.45 K/uL (0.11-0.59); Monocytes % (auto) 12.9 %; Neutrophils % (auto) 68.6 %; Platelet Count 154 K/uL (130-400); RDW Coefficient of Variation 15.3 % (11.5-14.5); RDW Standard Deviation 49.1 fL (36.4-46.3); Red Blood Count 3.39 M/uL (4.70-6.10)
[2023-07-13 11:17] LABS: Albumin Globulin Ratio 1.1 (0.9-2); BUN Creatinine Ratio 13.4 (10-20); Creatinine Clr Calc Pharmacy 50.8 ml/min; Est GFR (African American) 67.9 ml/min; Est GFR (Non-African American) 58.6 ml/min; Globulin 2.8 gm/dl (2.5-4.0); Total Protein 5.8 gm/dl (6.0-8.3)
[2023-07-13] MEDS: DEXTROMETHORPHAN POLYMR COMPLX 30 MG/5 ML UDP PO PRN (13:01)
--- NOTE | 2023-07-13 14:02 | Pharmacy Report ---
Pharmacy Glycemic Short Note 2 - Date of Service July 13, 2023 - Glycemic Short BSG Results (Last 24 hours): 07/12/23 07/12/23 07/13/23 16:36 20:37 08:27 Glucose POC Glucose 296 H 217 H 240 H 07/13/23 07/13/23 10:34 11:49 Glucose 307 H* POC Glucose 288 H OUTPATIENT ANTIDIABETIC REGIMEN: * Lantus 40 units SC HS * Novolog 15 units SC TIDM * Liraglutide 1.2mg SC once daily * HbA1C: 6.9% (07/07/23) ASSESSMENT: 07/13: * BSGs trending up over past 24 hours w/ elevated fasting BSG at 240 mg/dL * This is likely related to the acetylcysteine infusion (mixed in dextrose), which is now discontinued * Will further tighten Novolog parameters today and allow for increased basal tonight. Will need to reassess BSG trend tomorrow morning 07/11: * Patient received 82 units of insulin yesterday, 50 units basal + 32 units bolus. BSGs were: [phone] mg/dL. Hyperglycemia likely due to no basal previous day. * Fasting BSG is 137 mg/dL this AM. Plan to get patient back to previous regimen of 45 units HS. This also matches home dosing time. Will give smaller basal dose this AM and larger dose in PM with hopes of going back to once a day at HS tomorrow. * No other changes. Remains on Zosyn. 07/10: * Dev received 40 units of insulin yesterday, all bolus. Basal was held per provider orders for BSG < 110 mg/dL. BSGs were: [phone] mg/dL. * Fasting BSG was 185 mg/dL this AM. Likely due to non-admin of basal yesterday. Believe patient needs basal on board soon so will split inpatient regimen to BID. Giving 25 units for now since behind. Will likely have to back off. * Trend down in postprandials yesterday. Will loosen Novolog today. 07/09: * 78 year old male admitted with pneumonia. History of DM2 on insulin therapy at home. Pharmacy consulted today to assist with glycemic management while inpatient in setting of elevated prandial BSGs. * BSGs the last 24h: [phone]/dL. Received 45 units of basal insulin yesterday and 21 units of bolus insulin. * Tolerating a diet and continues on antibiotics. * Given acceptable fasting BSGs, will keep basal dose of 45 units for tonight. Based upon historic glycemic data, will tighten Novolog starting at lunch to 20/5. Goal BSG also tightened to 110-140mg/dL. PLAN FOR INPATIENT GLYCEMIC CONTROL: * Basal insulin * Lantus 35-40 units SC x 1 at dinnertime * Reassess in AM * Bolus insulin * NovoLog per scale ACHS or Q6hrs while NPO * Goal Range: Low 110 mg/dL - High 140 mg/dL * Correction Factor: 20 mg/dL/unit * Nutritional / Prandial insulin per carb ratio of 1 unit per 5 grams CHO consumed
[2023-07-13] MEDS ORDERED: LANTUS PER UNIT CHARGE SQ ONE ×2 (16:30)
--- NOTE | 2023-07-13 16:52 | Cardiology Progress Note ---
Date of Service July 13, 2023 Assessment & Plan (1) Pneumonia: (2) Tachy-noman syndrome: (3) Atrial flutter: (4) Pacemaker: (5) Chronic heart failure with reduced ejection fraction and diastolic dysfunction: (6) Ischemic cardiomyopathy: (7) Multiple myeloma: Plan * Question if patient's chronic worsening shortness of breath is multifactorial with anemia / multiple myeloma, interstitial lung disease, ischemic cardiomyopathy with bypass grafts that are 30 years old (CBAG x 3 in 1993) and given fever , and CT findings underlying pneumonia still a consideration. * Hgb down to 7.5g/dl on 07/12/23, and improved to 10.5 g/d post transfusion. * He is not a good candidate for antiarrhythmic therapy with concerns of lung disease and amiodarone therapy, renal function prevents dofetilide use, low EF prevents use of Multaq due to CHF concerns. * based on pacer checks he has paroxysmal AF with AF burden of 60% * Perhaps sotalol would help from a rhythm control standpoint, however his renal function (creat 1.54 today, EGFR 42 ml/min/m2) is borderline for this and it can worsen CHF. * Continue metoprolol. * Continue Eliquis for stoke prophylaxis. * Plan for furosemide 20 mg IV am of 07/14/23. Already on standing potassium supplementation. Admission and Anticipated Discharge Date Admission Date: July 06, 2023 Subjective Patient seen in cardiology follow-up. He notes feeling subjectively improved having received a unit of packed red blood cells yesterday and 20 mg of IV furosemide. 3 he is back and a rate controlled atrial fibrillation in the 80s today. Physical Exam Constitutional: no acute distress Eyes: PERRL, conjunctivae normal, anicteric sclerae Respiratory: Auscultation: no crackles, no rales and no wheezes Cardiovascular: Rate/Rhythm: + irregularly irregular Extremities: no edema Gastrointestinal (Abdomen): normal bowel sounds, soft, nontender, no hepatosplenomegaly Neurologic: PERRL, EOMI, accommodation nl, no face palsy, no dysarthria Results & Data Vital Signs (Past 12 Hours) Vital Signs Temp Pulse Pulse Resp BP BP Pulse Ox 07/13/23 15:45 36.9 C 88 19 109/62 92 07/13/23 13:32 07/13/23 11:52 36.6 C 83 18 96/60 L 95 07/13/23 07:33 36.9 C 78 18 96/59 L 96 07/13/23 07:25 36.9 C 75 18 96/59 L 97 07/13/23 06:25 36.5 C 76 16 98/62 L 97 07/13/23 05:55 36.6 C 82 16 93/65 L 97 07/13/23 05:40 36.4 C L 77 16 97/52 L 95 07/13/23 05:24 36.4 C L 82 16 94/61 L 92 O2 Del Method 07/13/23 15:45 Room Air 07/13/23 13:32 Room Air 07/13/23 11:52 Room Air 07/13/23 07:33 Room Air 07/13/23 07:25 07/13/23 06:25 07/13/23 05:55 07/13/23 05:40 07/13/23 05:24 Laboratory Results Cardiac Enzymes 07/13/23 Range/Units 10:34 AST 113 H (13-39) U/L CBC 07/12/23 07/13/23 Range/Units 20:34 10:34 WBC 3.50 L (4.8-10.8) K/ul RBC 3.39 L (4.70-6.10) M/uL Hgb 7.8 L 10.5 L (14.0-18.0) g/dl Hct 23.4 L 29.8 L (42.0-52.0) % Plt Count 154 (130-400) K/uL Neut # (Auto) 2.40 (1.40-6.50) K/uL Lymph # (Auto) 0.36 L (1.20-3.40) K/uL Cotton # (Auto) 0.45 (0.11-0.59) K/uL Eos # (Auto) 0.12 (0.00-0.50) K/uL Baso # (Auto) 0.05 (0.00-0.20) K/uL Comprehensive Metabolic Panel 07/13/23 Range/Units 10:34 Sodium 136 (136-145) mmol/L Potassium 3.7 (3.5-5.1) mmol/L Chloride 106 (98-107) mmol/L Carbon Dioxide 19 L (21-32) mmol/L BUN 16 (6-23) mg/dl Creatinine 1.19 D (0.6-1.4) mg/dl Glucose 307 H* (70-99(Fasting)) mg/dl Calcium 7.9 L (8.6-10.3) mg/dl AST 113 H (13-39) U/L ALT 251 H (7-52) U/L Alkaline Phosphatase 157 H (34-104) U/L Total Protein 5.8 L (6.0-8.3) gm/dl Albumin 3.0 L (3.4-5.0) gm/dl Intake and Output 07/13/23 07/13/23 07/13/23 06:59 14:59 22:59 Intake Total 977.083 / 2857.233 1562.967 / 1562.967 Output Total 600 / 600 Balance 977.083 / 457.233 962.967 / 962.967 Intake: IV 827.083 / 2067.233 407.967 / 407.967 AcetylCYSTEINE 7,010 mg In 727.083 / 727.083 307.967 / 307.967 Dextrose 5% 1,000 ml @ 62.5 mls /hr IV ONCE ONE Rx#:[id number] Piperacillin/Tazobactam 4.5 gm 100 / 300 100 / 100 In Dextrose 5% Mini-B 100 ml @ 25 mls/hr IV Q8H [facility] Rx#: [id number] Oral 150 / 790 880 / 880 Intake (Blood Product) Amt 0 / 0 275 / 275 Packed Cells, Leukored, Irrad 0 / 0 275 / 275 Unit [id number] Output: Urine 600 / 600 Other: Weight 69.1 kg Weight Measurement Method Built in [facility] (1) Pneumonia Laterality: right Lung location: upper lobe of lung Pneumonia type: due to unspecified organism Qualified Code(s): J18.9 - Pneumonia, unspecified organism
--- NOTE | 2023-07-13 17:07 | Hospitalist Progress Note ---
Date of Service July 13, 2023 Assessment & Plan (1) Hospital acquired PNA: (2) Chronic heart failure with reduced ejection fraction and diastolic dysfunction: (3) Anemia: (4) Tachy-noman syndrome: (5) Elevated troponin: (6) Ischemic cardiomyopathy: (7) HTN (hypertension): (8) Leg wound, left: (9) Multiple myeloma: (10) Type 2 diabetes mellitus: (11) CAD (coronary artery disease): (12) HLD (hyperlipidemia): (13) Pacemaker: (14) ABDI (acute kidney injury): Plan Mr. Hernandez is a 78-year-old gentleman with PMH of chronic systolic CHF, chronic ischemic heart disease, HTN, HLD, CAD s/p CABG, history of STEMI, paroxysmal A- fib, SSS s/p pacemaker, DM type II, peripheral neuropathy, GERD, CKD, multiple myeloma on Darzalex, revlimid and decadron, last treatment was on 05/25/2023 (currently being held), emphysema, interstitial lung disease, h/o opioid-induced constipation and other medical problems who presented with RAYGOZA. Initially thought to be related to RUL PNA iso recent hospitalization, however, procal/clinical presentation less suggestive of infectious eitology but appear more consistent with cardiac process rather than infectious source. Dyspnea on Exertion -Multifactorial: Interstitial lung disease, atrial fibrillation with RVR, acute on chronic systolic and diastolic CHF, symptomatic anemia, ? Possible pneumonia Immunocompromise state --CTA:No acute abnormality and in particular no evidence of pulmonary embolus. Airspace opacity is in the right upper lobe which may represent pneumonia. No evidence of interstitial pulmonary edema. Redemonstration of emphysema and interstitial lung disease. Cardiomegaly and pacemaker. -- Negative BioFire --Repeat CXR:Progression of right upper lobe consolidation consistent with pneumonia. Radiographic follow up to ensure resolution is recommended. Normal procalcitonin>>Repeat 0.58 Nasal MRSA Negative Repeat COVID screen negative Blood cultures negative to date Sputum culture normal [place] Saturating well on room air Received IV Lasix Currently on PO Lasix MWF Appreciate cardiology, ID input May need 2 step prior to discharge Hb at baseline, monitor CBC Change cefepime to Zosyn given fever overnight, immunocompromised state Vancomycin Discontinued. Discussed with on 07/12/23 Saturating well on room S/P 1 unit PRBCs, monitor CBC Received a dose of IV Lasix today Monitor volume status ABDI on CKD II-III Avoid nephrotoxic agents as able Monitor renal function Cr 1.1 today Acute on Chronic Heart Failure with reduced EF (35-40% 06/2023) due to ischemic cardiomyopathy Severe Multivessel Coronary Artery Disease s/p CABG 1993 (BISHOP-LAD, gastroepiploic to RPDA, graft to OM) Atrial fibrillation Tachy-noman syndrome s/p PPM 2019 Not a candidate for amiodarone due to lung issues ? due to chemotherapeutic treatment for multiple myeloma with Darzalex faspro and Revlimid--both can increase fluid overload Diuretics as per cardiology Increase metoprolol succinate to 75 mg BID Continue digoxin On Eliquis for anticoagulation Elevated Liver enzymes Likely due to Revlimid DD: DILI --Liver USD:The liver is normal in size and echotexture. No gallstones are seen Hepatitis panel negative Appreciate GI input Received N-acetylcysteine Monitor LFTs GI following Chronic troponin elevation Less likely ACS Chronic Hypotension Hypoalbuminemia likely contributing Monitor Peripheral Arterial Disease c/b left popliteal occlusion Chronic ulceration left forefoot Appears non-infectious, signs of healing/granulation tissue, no purulence Continue Wound care -Completed course of PO abx +inpatient administration of abx: cipro +2 days cefepime for Klebsiella/Enterobacter Chronic Pancytopenia Mild Neutropenia Multiple Myeloma IgA kappa with lytic bone lesions Initially dx 08/18/2021 with BM biopsy. Currently undergoing chemotherapy with Darzalex , revlimid and decadron Last received chemo 05/25: Follows with Dr. Garcia, took last dose of revlimid (possibly explaining pancytopenia), however given decline in performance status/infection, further treatment with Darzalex held Continue morphine IR 15 mg for pain, gabapentin 300 mg BID with bowel regimen Pancytopenia improved Monitor CBC DM II Last A1C 6.9 Hold home agents Basal/bolus insulin while in-patient BSG AC HS DVT Px: Eliquis Code status: DNR/DNI Admission and Anticipated Discharge Date Admission Date: July 06, 2023 Subjective Patient is seen and examined at bedside Subjectively feels better today Less dyspnea, cough today Hemoglobin stable post PRBC No new complaints Denies any chest pain, nausea, vomiting, abdominal pain Review of Systems Review of Systems: All systems reviewed & are unremarkable except as noted in Subjective Physical Exam Physical Exam: Physical Exam: Vitals signs as noted above General Appearance:Thin, Frail, no apparent distress Head: normocephalic, Atraumatic Eyes: normal inspection, EOMI Neck: supple, Trachea midline Respiratory/Chest: Decreased breath sounds, CTA, No accessory muscle use Cardiovascular: Irregularly Irregular, No murmur Abdomen/GI:Soft, Non tender, Bowel sounds present Extremities/Musculoskeletal:normal inspection, no edema Neurologic/Psych:AAOX3, grossly no focal neurological deficits, +L small open plantar wound Skin: normal color, warm Results & Data Results & Data Vital Signs (Past 12 Hours) Vital Signs Temp Pulse Pulse Resp BP BP Pulse Ox 07/13/23 15:45 36.9 C 88 19 109/62 92 07/13/23 13:32 07/13/23 11:52 36.6 C 83 18 96/60 L 95 07/13/23 07:33 36.9 C 78 18 96/59 L 96 07/13/23 07:25 36.9 C 75 18 96/59 L 97 07/13/23 06:25 36.5 C 76 16 98/62 L 97 07/13/23 05:55 36.6 C 82 16 93/65 L 97 07/13/23 05:40 36.4 C L 77 16 97/52 L 95 07/13/23 05:24 36.4 C L 82 16 94/61 L 92 O2 Del Method 07/13/23 15:45 Room Air 07/13/23 13:32 Room Air 07/13/23 11:52 Room Air 07/13/23 07:33 Room Air 07/13/23 07:25 07/13/23 06:25 07/13/23 05:55 07/13/23 05:40 07/13/23 05:24 Laboratory Results Short CBC 07/12/23 07/13/23 Range/Units 20:34 10:34 WBC 3.50 L (4.8-10.8) K/ul Hgb 7.8 L 10.5 L (14.0-18.0) g/dl Hct 23.4 L 29.8 L (42.0-52.0) % Plt Count 154 (130-400) K/uL BMP 07/13/23 10:34 Sodium 136 Potassium 3.7 Chloride 106 Carbon Dioxide 19 L BUN 16 Creatinine 1.19 D Glucose 307 H* Calcium 7.9 L Liver Function 07/13/23 Range/Units 10:34 Total Bilirubin 0.7 (0.2-1.0) mg/dl AST 113 H (13-39) U/L ALT 251 H (7-52) U/L Alkaline Phosphatase 157 H (34-104) U/L Albumin 3.0 L (3.4-5.0) gm/dl
[2023-07-13] MEDS: DIGOXIN 0.125 MG TAB PO SCH (17:57)
[2023-07-13] MEDS: MIRTAZAPINE TAB 15 MG TAB PO SCH (21:55)
[2023-07-14 06:10] LABS: Basophils # (auto) 0.03 K/uL (0.00-0.20); Eosinophils # (auto) 0.13 K/uL (0.00-0.50); Eosinophils % (auto) 4.5 %; Hematocrit (blood only) 26.7 % (42.0-52.0); Hemoglobin 8.8 g/dl (14.0-18.0); Immature Granulocytes # (auto) 0.04 K/uL (0.01-0.20); Immature Granulocytes % (auto) 1.4 %; Lymphocytes # (auto) 0.51 K/uL (1.20-3.40); Lymphocytes % (auto) 17.8 %; Mean Corpuscular Hemoglobin 30.1 pg (25.0-34.0); Mean Corpuscular Volume 91.4 fL (80.0-100.0); Mean Platelet Volume 11.5 fL (9.4-12.4); Monocytes # (auto) 0.42 K/uL (0.11-0.59); Monocytes % (auto) 14.6 %; Neutrophils # (auto) 1.74 K/uL (1.40-6.50); Neutrophils % (auto) 60.7 %; Platelet Count 169 K/uL (130-400); RDW Coefficient of Variation 15.4 % (11.5-14.5); RDW Standard Deviation 51.4 fL (36.4-46.3); Red Blood Count 2.92 M/uL (4.70-6.10); White Blood Count 2.87 K/ul (4.8-10.8)
[2023-07-14] MEDS: PIPER/TAZO 4.5g in D5W MINI-B 100 ML IV SCH ×3 (06:26→21:52)
[2023-07-14 06:33] LABS: Albumin Globulin Ratio 1.2 (0.9-2); Albumin Level 2.9 gm/dl (3.4-5.0); BUN Creatinine Ratio 14.9 (10-20); Bilirubin,Total 0.7 mg/dl (0.2-1.0); Calcium 8.1 mg/dl (8.6-10.3); Creatinine Clr Calc Pharmacy 50.8 ml/min; Est GFR (African American) 66.5 ml/min; Est GFR (Non-African American) 57.4 ml/min; Globulin 2.5 gm/dl (2.5-4.0); Potassium 3.7 mmol/L (3.5-5.1); Total Protein 5.4 gm/dl (6.0-8.3)
[2023-07-14] MEDS: APIXABAN 5 MG TABLET PO SCH ×2 (08:30→21:49)
[2023-07-14] MEDS: CALCIUM 600MG + VIT D 400 IU TAB PO SCH ×2 (08:31→21:50)
[2023-07-14] MEDS: OMEGA-3 (PURIFIED FISH OIL) 1 GM CAP PO SCH ×2 (08:31→21:50)
[2023-07-14] MEDS: FUROSEMIDE INJ 20 MG/2 ML VIAL IV SCH (08:32)
[2023-07-14] MEDS: METOPROLOL SUCC 25MG EXT REL TAB PO SCH ×2 (08:32→21:51)
[2023-07-14] MEDS: POTASSIUM CHLORIDE CRTAB 20 MEQ TABCR PO SCH ×2 (08:33→21:51)
[2023-07-14] MEDS: DOCUSATE SODIUM/SENNA 50/8.6MG TAB PO SCH ×2 (08:34→21:50)
[2023-07-14] MEDS: POLYETHYLENE (MIRALAX) 17 GM PACK PO SCH (08:34)
[2023-07-14] MEDS: CYANOCOBALAMIN (B-12) 500 MCG TABLET PO SCH (08:35)
[2023-07-14] MEDS: ATORVASTATIN 40 MG TAB PO SCH (08:35)
[2023-07-14] MEDS: PANTOprazole 40 MG TAB PO SCH (08:36)
[2023-07-14] MEDS: GABAPENTIN 300 MG CAP PO SCH ×2 (08:36→21:50)
[2023-07-14] MEDS: INSULIN ASPART PER UNIT CHARGE SC SCH ×4 (08:43→21:45)
--- NOTE | 2023-07-14 09:59 | Cardiology Progress Note ---
Date of Service July 14, 2023 Assessment & Plan (1) Pneumonia: (2) Tachy-noman syndrome: (3) Atrial flutter: (4) Pacemaker: (5) Chronic heart failure with reduced ejection fraction and diastolic dysfunction: (6) Ischemic cardiomyopathy: (7) Multiple myeloma: Plan * Question if patient's chronic worsening shortness of breath is multifactorial with anemia / multiple myeloma, interstitial lung disease, ischemic cardiomyopathy with bypass grafts that are 30 years old (CBAG x 3 in 1993) and given fever , and CT findings underlying pneumonia still a consideration. * Hgb down to 7.5g/dl on 07/12/23, and improved to 10.5 g/d post transfusion and now 8.8 g/dl. * He is not a good candidate for antiarrhythmic therapy with concerns of lung disease and amiodarone therapy, renal function prevents dofetilide use, low EF prevents use of Multaq and sotalol due to CHF concerns. * based on pacer checks he has paroxysmal AF with AF burden of 60% * Continue metoprolol. * Continue Eliquis for stoke prophylaxis. * Plan for furosemide 20 mg IV am of 07/14/23 * Continue to monitor LFTs. Admission and Anticipated Discharge Date Admission Date: July 06, 2023 Subjective Pt seen in follow up. Remains afebrile. Back in SR with atrial pacing in the 70s at present. Physical Exam Constitutional: no acute distress Eyes: PERRL, conjunctivae normal, anicteric sclerae Respiratory: Auscultation: no crackles, no rales and no wheezes Cardiovascular: Rate/Rhythm: + tachycardic and + irregularly irregular Extremities: no edema Gastrointestinal (Abdomen): normal bowel sounds, soft, nontender, no hepatosplenomegaly Neurologic: PERRL, EOMI, accommodation nl, no face palsy, no dysarthria Results & Data Vital Signs (Past 12 Hours) Vital Signs Temp Pulse Pulse Resp BP Pulse Ox O2 Del Method 07/14/23 08:07 36.9 C 61 18 105/55 L 97 Room Air 07/14/23 03:55 36.6 C 73 16 96/59 L 94 Room Air 07/14/23 03:37 67 07/13/23 23:41 37.0 C 69 20 93/54 L 95 Room Air (1) Pneumonia Laterality: right Lung location: upper lobe of lung Pneumonia type: due to unspecified organism Qualified Code(s): J18.9 - Pneumonia, unspecified organism
--- NOTE | 2023-07-14 10:37 | Gastroenterology Progress Note ---
Date of Service July 14, 2023 Assessment & Plan (1) Elevated LFTs: Plan: Pt is a 78 yo male seen for transaminitis. PMHx significant for cardiac disease as noted above, multiple myeloma last chemo 05/25, ILD. On admission, his symptoms were SOB and RAYGOZA. Noted his EF decreased from last year to this year. He also has possible pneumonia. LFTs were previously normal in OP setting, and most recently significant increase was from yesterday to today. Noted that he received Vancomycin 07/11-. Liver u/s unremarkable. DDx: DILI (antibx), infection, congestive hepatopathy Vancomycin DC'd. He received NAC infusion 07/13. LFTs improved yesterday but trending up again today. - Trend LFTs - Obtain AIH, viral hepatitis serologies - Avoid hepatotoxic meds. No APAP >2g a day if needed - Optimize CHF Admission and Anticipated Discharge Date Admission Date: July 06, 2023 Supervising Physician Co-Signing Physician Notes Agree with pe as documented, unchanged compared to yesterday mentating fine Slight fluctation in lft's Serologies sent Suspect the lft's may be from mild congestive hepatopathy and vancomycin has been stopped and nac given for possible dili. Agree with further plan of care as documented. Subjective Pt denies abd pain, n/v. Review of Systems Review of Systems: All systems reviewed & are unremarkable except as noted in HPI & below Gastrointestinal: no abdominal pain, no heartburn, no nausea, no vomiting, no hematemesis, no pain with swallowing, no dysphagia, no cramping, no change in stools and no melena Physical Exam Constitutional: WD/WN, vitals as above well groomed, cooperative and comfortable Eyes: PERRL, conjunctivae normal, anicteric sclerae ENMT: external ear and nose normal, oropharynx normal Respiratory: normal respiratory effort, lungs clear to auscultation Cardiovascular: RRR, no murmur, no edema Gastrointestinal (Abdomen): normal bowel sounds, soft, nontender, no hepato splenomegaly Skin: no rashes, warm and dry no jaundice Psychiatric: A+Ox3, euthymic affect Lymphatic: no lymphedema Results & Data Vital Signs (Past 12 Hours) Vital Signs Temp Pulse Pulse Resp BP Pulse Ox O2 Del Method 07/14/23 10:02 Room Air 07/14/23 08:07 36.9 C 61 18 105/55 L 97 Room Air 07/14/23 03:55 36.6 C 73 16 96/59 L 94 Room Air 07/14/23 03:37 67 07/13/23 23:41 37.0 C 69 20 93/54 L 95 Room Air
[2023-07-14 11:09] LABS: Immunoglobulin A 151.2 mg/dl (70-400)
[2023-07-14 11:29] LABS: Ferritin 1026.4 ng/ml (8-388)
[2023-07-14] MEDS: DEXTROMETHORPHAN POLYMR COMPLX 60 MG/10 ML UDP PO SCH ×2 (14:35→21:50)
--- NOTE | 2023-07-14 17:18 | Hospitalist Progress Note ---
Date of Service July 14, 2023 Assessment & Plan (1) Hospital acquired PNA: (2) Chronic heart failure with reduced ejection fraction and diastolic dysfunction: (3) Anemia: (4) Tachy-noman syndrome: (5) Elevated troponin: (6) Ischemic cardiomyopathy: (7) HTN (hypertension): (8) Leg wound, left: (9) Multiple myeloma: (10) Type 2 diabetes mellitus: (11) CAD (coronary artery disease): (12) HLD (hyperlipidemia): (13) Pacemaker: (14) ABDI (acute kidney injury): Plan Mr. Hernandez is a 78-year-old gentleman with PMH of chronic systolic CHF, chronic ischemic heart disease, HTN, HLD, CAD s/p CABG, history of STEMI, paroxysmal A- fib, SSS s/p pacemaker, DM type II, peripheral neuropathy, GERD, CKD, multiple myeloma on Darzalex, revlimid and decadron, last treatment was on 05/25/2023 (currently being held), emphysema, interstitial lung disease, h/o opioid-induced constipation and other medical problems who presented with RAYGOZA. Initially thought to be related to RUL PNA iso recent hospitalization, however, procal/clinical presentation less suggestive of infectious eitology but appear more consistent with cardiac process rather than infectious source. Dyspnea on Exertion -Multifactorial: Interstitial lung disease, atrial fibrillation with RVR, acute on chronic systolic and diastolic CHF, symptomatic anemia, ? Possible pneumonia Immunocompromise state --CTA:No acute abnormality and in particular no evidence of pulmonary embolus. Airspace opacity is in the right upper lobe which may represent pneumonia. No evidence of interstitial pulmonary edema. Redemonstration of emphysema and interstitial lung disease. Cardiomegaly and pacemaker. -- Negative BioFire --Repeat CXR:Progression of right upper lobe consolidation consistent with pneumonia. Radiographic follow up to ensure resolution is recommended. Normal procalcitonin>>Repeat 0.58 Nasal MRSA Negative Repeat COVID screen negative Blood cultures negative to date Sputum culture normal israel Saturating well on room air Received IV Lasix P.o. diuretics held. Was on PO Lasix MWF Appreciate cardiology, ID input May need 2 step prior to discharge Hb at baseline, monitor CBC Change cefepime to Zosyn given fever overnight, immunocompromised state Vancomycin Discontinued. Discussed with on 07/12/23 Saturating well on room S/P 1 unit PRBCs, monitor CBC Continue diuretics as per cardiology ABDI on CKD II-III Avoid nephrotoxic agents as able Monitor renal function Cr 1.2 today Acute on Chronic Heart Failure with reduced EF (35-40% 06/2023) due to ischemic cardiomyopathy Severe Multivessel Coronary Artery Disease s/p CABG 1993 (BISHOP-LAD, gastroepiploic to RPDA, graft to OM) Atrial fibrillation Tachy-noman syndrome s/p PPM 2019 Not a candidate for amiodarone due to lung issues ? due to chemotherapeutic treatment for multiple myeloma with Darzalex faspro and Revlimid--both can increase fluid overload Diuretics as per cardiology Increase metoprolol succinate to 75 mg BID Continue digoxin On Eliquis for anticoagulation Elevated Liver enzymes Likely due to Revlimid DD: DILI, Hepatic congestion --Liver USD:The liver is normal in size and echotexture. No gallstones are seen Hepatitis panel negative Appreciate GI input Received N-acetylcysteine Monitor LFTs GI following AIH, viral hepatitis serologies pending LFTs trending up again Chronic troponin elevation Less likely ACS Chronic Hypotension Hypoalbuminemia likely contributing Monitor Peripheral Arterial Disease c/b left popliteal occlusion Chronic ulceration left forefoot Appears non-infectious, signs of healing/granulation tissue, no purulence Continue Wound care -Completed course of PO abx +inpatient administration of abx: cipro +2 days cefepime for Klebsiella/Enterobacter Chronic Pancytopenia Mild Neutropenia Multiple Myeloma IgA kappa with lytic bone lesions Initially dx 08/18/2021 with BM biopsy. Currently undergoing chemotherapy with Darzalex , revlimid and decadron Last received chemo 05/25: Follows with Dr. Garcia, took last dose of revlimid (possibly explaining pancytopenia), however given decline in performance status/infection, further treatment with Darzalex held Continue morphine IR 15 mg for pain, gabapentin 300 mg BID with bowel regimen Pancytopenia improved Monitor CBC DM II Last A1C 6.9 Hold home agents Basal/bolus insulin while in-patient BSG AC HS DVT Px: Eliquis Code status: DNR/DNI Admission and Anticipated Discharge Date Admission Date: July 06, 2023 Subjective Patient is seen and examined at bedside PT still has some cough but otherwise feels well Afebrile today No new complaints Denies any chest pain, nausea, vomiting, abdominal pain Review of Systems Review of Systems: All systems reviewed & are unremarkable except as noted in Subjective Physical Exam Physical Exam: Physical Exam: Vitals signs as noted above General Appearance:Thin, Frail, no apparent distress Head: normocephalic, Atraumatic Eyes: normal inspection, EOMI Neck: supple, Trachea midline Respiratory/Chest: Decreased breath sounds, CTA, No accessory muscle use Cardiovascular: Irregularly Irregular, No murmur Abdomen/GI:Soft, Non tender, Bowel sounds present Extremities/Musculoskeletal:normal inspection, no edema Neurologic/Psych:AAOX3, grossly no focal neurological deficits, +L small open plantar wound Skin: normal color, warm Results & Data Results & Data Vital Signs (Past 12 Hours) Vital Signs Temp Pulse Pulse Pulse Resp BP Pulse Ox 07/14/23 16:20 63 07/14/23 15:58 36.9 C 62 18 118/59 L 97 07/14/23 07:21 68 07/14/23 12:15 36.7 C 64 18 96/54 L 96 07/14/23 10:02 07/14/23 08:07 36.9 C 61 18 105/55 L 97 O2 Del Method 07/14/23 16:20 07/14/23 15:58 Room Air 07/14/23 07:21 07/14/23 12:15 Room Air 07/14/23 10:02 Room Air 07/14/23 08:07 Room Air Laboratory Results Short CBC 07/14/23 Range/Units 05:31 WBC 2.87 L (4.8-10.8) K/ul Hgb 8.8 L (14.0-18.0) g/dl Hct 26.7 L (42.0-52.0) % Plt Count 169 (130-400) K/uL BMP 07/14/23 05:31 Sodium 139 Potassium 3.7 Chloride 109 H Carbon Dioxide 23 BUN 18 Creatinine 1.21 Glucose 110 H Calcium 8.1 L Liver Function 07/14/23 Range/Units 05:31 Total Bilirubin 0.7 (0.2-1.0) mg/dl AST 199 H (13-39) U/L ALT 287 H (7-52) U/L Alkaline Phosphatase 154 H (34-104) U/L Albumin 2.9 L (3.4-5.0) gm/dl
[2023-07-14] MEDS ORDERED: LANTUS PER UNIT CHARGE SC SCH (21:00)
[2023-07-14] MEDS: MoRPHine SULFATE IR 15 MG TAB (IMMEDIATE RELEASE) PO PRN (21:47)
[2023-07-14] MEDS: MIRTAZAPINE TAB 15 MG TAB PO SCH (21:52)
[2023-07-15] MEDS: PIPER/TAZO 4.5g in D5W MINI-B 100 ML IV SCH ×3 (06:19→22:03)
[2023-07-15 06:25] LABS: Hematocrit (blood only) 25.8 % (42.0-52.0); Hemoglobin 8.7 g/dl (14.0-18.0); Mean Corpuscular Hgb Conc 33.7 g/dL (32.0-36.0); Mean Corpuscular Volume 91.8 fL (80.0-100.0); Mean Platelet Volume 12.3 fL (9.4-12.4); Platelet Count 147 K/uL (130-400); RDW Coefficient of Variation 14.7 % (11.5-14.5); RDW Standard Deviation 49.5 fL (36.4-46.3); Red Blood Count 2.81 M/uL (4.70-6.10); White Blood Count 2.27 K/ul (4.8-10.8)
[2023-07-15 06:45] LABS: Albumin Globulin Ratio 1.3 (0.9-2); BUN Creatinine Ratio 13.6 (10-20); Bilirubin,Total 0.5 mg/dl (0.2-1.0); Calcium 8.1 mg/dl (8.6-10.3); Creatinine Clr Calc Pharmacy 47.1 ml/min; Est GFR (African American) 59.9 ml/min; Est GFR (Non-African American) 51.7 ml/min; Globulin 2.4 gm/dl (2.5-4.0); Magnesium 1.8 mg/dl (1.7-2.4); Potassium 3.5 mmol/L (3.5-5.1); Total Protein 5.4 gm/dl (6.0-8.3)
[2023-07-15] MEDS: INSULIN ASPART PER UNIT CHARGE SC SCH ×4 (09:05→21:04)
[2023-07-15] MEDS: METOPROLOL SUCC 25MG EXT REL TAB PO SCH ×2 (09:06→20:55)
[2023-07-15] MEDS: POTASSIUM CHLORIDE CRTAB 20 MEQ TABCR PO SCH ×2 (09:06→20:54)
[2023-07-15] MEDS: CALCIUM 600MG + VIT D 400 IU TAB PO SCH ×2 (09:06→20:56)
[2023-07-15] MEDS: GABAPENTIN 300 MG CAP PO SCH ×2 (09:07→20:56)
[2023-07-15] MEDS: OMEGA-3 (PURIFIED FISH OIL) 1 GM CAP PO SCH ×2 (09:07→20:54)
[2023-07-15] MEDS: APIXABAN 5 MG TABLET PO SCH ×2 (09:07→20:53)
[2023-07-15] MEDS: DOCUSATE SODIUM/SENNA 50/8.6MG TAB PO SCH ×2 (09:07→20:56)
[2023-07-15] MEDS: PANTOprazole 40 MG TAB PO SCH (09:08)
[2023-07-15] MEDS: FUROSEMIDE INJ 20 MG/2 ML VIAL IV SCH (09:08)
[2023-07-15] MEDS: ATORVASTATIN 40 MG TAB PO SCH (09:08)
[2023-07-15] MEDS: POLYETHYLENE (MIRALAX) 17 GM PACK PO SCH (09:08)
[2023-07-15] MEDS: CYANOCOBALAMIN (B-12) 500 MCG TABLET PO SCH (09:08)
[2023-07-15] MEDS: DEXTROMETHORPHAN POLYMR COMPLX 60 MG/10 ML UDP PO SCH ×2 (09:09→20:57)
--- NOTE | 2023-07-15 09:59 | Cardiology Progress Note ---
Date of Service July 15, 2023 Assessment & Plan (1) Pneumonia: (2) Tachy-noman syndrome: (3) Atrial flutter: (4) Pacemaker: (5) Chronic heart failure with reduced ejection fraction and diastolic dysfunction: (6) Ischemic cardiomyopathy: (7) Multiple myeloma: Plan * Question if patient's chronic worsening shortness of breath is multifactorial with anemia / multiple myeloma, interstitial lung disease, ischemic cardiomyopathy with bypass grafts that are 30 years old (CBAG x 3 in 1993) and given fever , and CT findings underlying pneumonia still a consideration. * Hgb down to 7.5g/dl on 07/12/23, and improved to 10.5 g/d post transfusion -->8.8 g/dl-->8.7 g/dl. * Continue metoprolol. * Continue Eliquis for stoke prophylaxis. * Plan for furosemide 20 mg IV am of 07/15/23, transition back to home oral dose for am of 07/16/23. * Increase activity as tolerated , perhaps will be ready for discharge on 07/16/23 * Case discussed with Dr Larsen for the purpose of coordination of care. Admission and Anticipated Discharge Date Admission Date: July 06, 2023 Subjective Pt seen in follow up. Notes more mucous with cough this am. Afebrile. Telemetry reveals SR , atrial paced in the 70s. Physical Exam Constitutional: no acute distress Eyes: PERRL, conjunctivae normal, anicteric sclerae Respiratory: Auscultation: no crackles, no rales and no wheezes Cardiovascular: Rate/Rhythm: + tachycardic and + irregularly irregular Extremities: no edema Gastrointestinal (Abdomen): normal bowel sounds, soft, nontender, no hepatosplenomegaly Neurologic: PERRL, EOMI, accommodation nl, no face palsy, no dysarthria Results & Data Vital Signs (Past 12 Hours) Vital Signs Temp Pulse Pulse Resp BP BP Pulse Ox 07/15/23 09:42 60 07/15/23 07:17 36.6 C 60 19 100/56 L 95 07/15/23 03:00 63 07/15/23 02:58 36.6 C 61 16 106/60 94 07/14/23 23:09 37.4 C 68 20 99/47 L 92 O2 Del Method 07/15/23 09:42 07/15/23 07:17 Room Air 07/15/23 03:00 07/15/23 02:58 Room Air 07/14/23 23:09 Room Air (1) Pneumonia Laterality: right Lung location: upper lobe of lung Pneumonia type: due to unspecified organism Qualified Code(s): J18.9 - Pneumonia, unspecified organism
--- NOTE | 2023-07-15 10:52 | Communication Note ---
Date of Service: July 15, 2023 Patient not examined, chart reviewed. He is hemodynamically stable, LFTs improving. AIH serologies, acute hepatitis panel pending. Per RN he is ment ating well without any complaints of abdominal pain, nausea or vomiting. Continue to trend LFTs, and follow-up serologies, but no further work-up recommended at this time. We will sign off, please recall as needed.
--- NOTE | 2023-07-15 14:07 | Pharmacy Report ---
Pharmacy Glycemic Short Note 2 - Date of Service July 15, 2023 - Glycemic Short BSG Results (Last 24 hours): 07/14/23 07/14/23 07/15/23 16:33 20:18 05:22 Glucose 98 POC Glucose 132 H 260 H 07/15/23 07/15/23 07:19 11:54 Glucose POC Glucose 101 H 195 H OUTPATIENT ANTIDIABETIC REGIMEN: * Lantus 40 units SC HS * Novolog 15 units SC TIDM * Liraglutide 1.2mg SC once daily * HbA1C: 6.9% (07/07/23) ASSESSMENT: 07/15: * Dev received 83 units of insulin yesterday of which 35 were basal * He continues to received Zosyn * Fasting BSG slightly below goal, will reduce Lantus by ~20% * Lunch and HS BSGs elevated yesterday, will tighten carb coverage 07/13: * BSGs trending up over past 24 hours w/ elevated fasting BSG at 240 mg/dL * This is likely related to the acetylcysteine infusion (mixed in dextrose), which is now discontinued * Will further tighten Novolog parameters today and allow for increased basal tonight. Will need to reassess BSG trend tomorrow morning 07/11: * Patient received 82 units of insulin yesterday, 50 units basal + 32 units bolus. BSGs were: [phone] mg/dL. Hyperglycemia likely due to no basal previous day. * Fasting BSG is 137 mg/dL this AM. Plan to get patient back to previous regimen of 45 units HS. This also matches home dosing time. Will give smaller basal dose this AM and larger dose in PM with hopes of going back to once a day at HS tomorrow. * No other changes. Remains on Zosyn. 07/10: * Dev received 40 units of insulin yesterday, all bolus. Basal was held per provider orders for BSG < 110 mg/dL. BSGs were: 140-046-109-109 mg/dL. * Fasting BSG was 185 mg/dL this AM. Likely due to non-admin of basal yesterday. Believe patient needs basal on board soon so will split inpatient regimen to BID. Giving 25 units for now since behind. Will likely have to back off. * Trend down in postprandials yesterday. Will loosen Novolog today. 07/09: * 78 year old male admitted with pneumonia. History of DM2 on insulin therapy at home. Pharmacy consulted today to assist with glycemic management while inpatient in setting of elevated prandial BSGs. * BSGs the last 24h: [phone]/dL. Received 45 units of basal insulin yesterday and 21 units of bolus insulin. * Tolerating a diet and continues on antibiotics. * Given acceptable fasting BSGs, will keep basal dose of 45 units for tonight. Based upon historic glycemic data, will tighten Novolog starting at lunch to 20/5. Goal BSG also tightened to 110-140mg/dL. PLAN FOR INPATIENT GLYCEMIC CONTROL: * Basal insulin * Lantus 30 units SC at bedtime * Bolus insulin * NovoLog per scale ACHS or Q6hrs while NPO * Goal Range: Low 110 mg/dL - High 140 mg/dL * Correction Factor: 20 mg/dL/unit * Nutritional / Prandial insulin per carb ratio of 1 unit per 3 grams CHO consumed
--- NOTE | 2023-07-15 15:06 | Hospitalist Progress Note ---
Date of Service July 15, 2023 Assessment & Plan (1) Hospital acquired PNA: (2) Chronic heart failure with reduced ejection fraction and diastolic dysfunction: (3) Anemia: (4) Tachy-noman syndrome: (5) Elevated troponin: (6) Ischemic cardiomyopathy: (7) HTN (hypertension): (8) Leg wound, left: (9) Multiple myeloma: (10) Type 2 diabetes mellitus: (11) CAD (coronary artery disease): (12) HLD (hyperlipidemia): (13) Pacemaker: (14) ABDI (acute kidney injury): Plan Mr. Hernandez is a 78-year-old gentleman with PMH of chronic systolic CHF, chronic ischemic heart disease, HTN, HLD, CAD s/p CABG, history of STEMI, paroxysmal A- fib, SSS s/p pacemaker, DM type II, peripheral neuropathy, GERD, CKD, multiple myeloma on Darzalex, revlimid and decadron, last treatment was on 05/25/2023 (currently being held), emphysema, interstitial lung disease, h/o opioid-induced constipation and other medical problems who presented with RAYGOZA. Initially thought to be related to RUL PNA iso recent hospitalization, however, procal/clinical presentation less suggestive of infectious eitology but appear more consistent with cardiac process rather than infectious source. Dyspnea on Exertion -Multifactorial: Interstitial lung disease, atrial fibrillation with RVR, acute on chronic systolic and diastolic CHF, symptomatic anemia, Pneumonia Immunocompromise state --CTA:No acute abnormality and in particular no evidence of pulmonary embolus. Airspace opacity is in the right upper lobe which may represent pneumonia. No evidence of interstitial pulmonary edema. Redemonstration of emphysema and interstitial lung disease. Cardiomegaly and pacemaker. -- Negative BioFire --Repeat CXR:Progression of right upper lobe consolidation consistent with pneumonia. Radiographic follow up to ensure resolution is recommended. Normal procalcitonin>>Repeat 0.58 Nasal MRSA Negative Repeat COVID screen negative --S/P 1 unit PRBCs Blood cultures negative to date Sputum culture normal israel Saturating well on room air Was on PO Lasix MWF Appreciate cardiology, ID input Will 2 step prior to discharge Changed cefepime to Zosyn given immunocompromised state Vancomycin Discontinued. Discussed with on 07/12/23 Saturating well on room IV Lasix will be transition to p.o. tomorrow per cardiology Hb 8.7 today PT OT prior to discharge ABDI on CKD II-III Avoid nephrotoxic agents as able Monitor renal function Cr 1.3 today Acute on Chronic Heart Failure with reduced EF (35-40% 06/2023) due to ischemic cardiomyopathy Severe Multivessel Coronary Artery Disease s/p CABG 1993 (BISHOP-LAD, gastroepiploic to RPDA, graft to OM) Atrial fibrillation Tachy-noman syndrome s/p PPM 2019 Not a candidate for amiodarone due to lung issues ? due to chemotherapeutic treatment for multiple myeloma with Darzalex faspro and Revlimid--both can increase fluid overload Diuretics as per cardiology Increase metoprolol succinate to 75 mg BID Continue digoxin On Eliquis for anticoagulation Elevated Liver enzymes Likely due to Revlimid DD: DILI, Hepatic congestion --Liver USD:The liver is normal in size and echotexture. No gallstones are seen Hepatitis panel negative Appreciate GI input Received N-acetylcysteine Monitor LFTs GI following AIH, viral hepatitis serologies pending LFTs Variable Chronic troponin elevation Less likely ACS Chronic Hypotension Hypoalbuminemia likely contributing Monitor Peripheral Arterial Disease c/b left popliteal occlusion Chronic ulceration left forefoot Appears non-infectious, signs of healing/granulation tissue, no purulence Continue Wound care -Completed course of PO abx +inpatient administration of abx: cipro +2 days cefepime for Klebsiella/Enterobacter Chronic Pancytopenia Mild Neutropenia Multiple Myeloma IgA kappa with lytic bone lesions Initially dx 08/18/2021 with BM biopsy. Currently undergoing chemotherapy with Darzalex , revlimid and decadron Last received chemo 05/25: Follows with Dr. Garcia, took last dose of revlimid (possibly explaining pancytopenia), however given decline in performance status/infection, further treatment with Darzalex held Continue morphine IR 15 mg for pain, gabapentin 300 mg BID with bowel regimen Monitor CBC DM II Last A1C 6.9 Hold home agents Basal/bolus insulin while in-patient BSG AC HS DVT Px: Eliquis Code status: DNR/DNI Admission and Anticipated Discharge Date Admission Date: July 06, 2023 Subjective Patient is seen and examined at bedside States having some difficulty to expectorate phlegm Otherwise feels well Discussed with cardiology today No dyspnea today Denies any chest pain, nausea, vomiting, abdominal pain Review of Systems Review of Systems: All systems reviewed & are unremarkable except as noted in Subjective Physical Exam Physical Exam: Physical Exam: Vitals signs as noted above General Appearance:Thin, Frail, no apparent distress Head: normocephalic, Atraumatic Eyes: normal inspection, EOMI Neck: supple, Trachea midline Respiratory/Chest: Decreased breath sounds, CTA, No accessory muscle use Cardiovascular: Irregularly Irregular, No murmur Abdomen/GI:Soft, Non tender, Bowel sounds present Extremities/Musculoskeletal:normal inspection, no edema Neurologic/Psych:AAOX3, grossly no focal neurological deficits, +L small open plantar wound Skin: normal color, warm Results & Data Results & Data Vital Signs (Past 12 Hours) Vital Signs Temp Pulse Pulse Resp BP Pulse Ox O2 Del Method 07/15/23 11:57 36.9 C 54 L 18 106/58 L 92 Room Air 07/15/23 09:46 Room Air 07/15/23 09:42 60 07/15/23 07:17 36.6 C 60 19 100/56 L 95 Room Air Laboratory Results Short CBC 07/15/23 Range/Units 05:22 WBC 2.27 L (4.8-10.8) K/ul Hgb 8.7 L (14.0-18.0) g/dl Hct 25.8 L (42.0-52.0) % Plt Count 147 (130-400) K/uL BMP 07/15/23 05:22 Sodium 139 Potassium 3.5 Chloride 107 Carbon Dioxide 24 BUN 18 Creatinine 1.32 Glucose 98 Calcium 8.1 L Liver Function 07/15/23 Range/Units 05:22 Total Bilirubin 0.5 (0.2-1.0) mg/dl AST 109 H (13-39) U/L ALT 219 H (7-52) U/L Alkaline Phosphatase 130 H (34-104) U/L Albumin 3.0 L (3.4-5.0) gm/dl
[2023-07-15 16:08] LABS: Alpha 1 Antitrypsin 297 mg/dL (83-199); Anti Mitochondrial Antibody NEGATIVE (NEGATIVE); Anti Nuclear Antibody Screen NEGATIVE (NEGATIVE); Ceruloplasmin 50 mg/dL (18-36); HBSAG NON-REACTIVE (NON-REACTIVE); Hepatitis A Antibody IgM NON-REACTIVE (NON-REACTIVE); Hepatitis B Core Antibody IgM NON-REACTIVE (NON-REACTIVE); Smooth Muscle Antibody NEGATIVE (NEGATIVE); Transglutaminase, Tissue IgA <1.0 U/mL
[2023-07-15] MEDS: DIGOXIN 0.125 MG TAB PO SCH (17:43)
[2023-07-15] MEDS: guaiFENesin/DEXTROM SYRUP 100MG/10MG 5ML UDC PO PRN (19:17)
[2023-07-15] MEDS: MIRTAZAPINE TAB 15 MG TAB PO SCH (20:54)
[2023-07-15] MEDS: LANTUS PER UNIT CHARGE SC SCH (21:04)
[2023-07-16] MEDS: PIPER/TAZO 4.5g in D5W MINI-B 100 ML IV SCH (05:37)
[2023-07-16 07:47] LABS: Albumin Globulin Ratio 1.1 (0.9-2); Albumin Level 3.5 gm/dl (3.4-5.0); BUN Creatinine Ratio 13.7 (10-20); Bilirubin,Total 0.8 mg/dl (0.2-1.0); Creatinine Clr Calc Pharmacy 41.3 ml/min; Est GFR (Non-African American) 45.7 ml/min; Globulin 3.1 gm/dl (2.5-4.0); Potassium 3.8 mmol/L (3.5-5.1); Total Protein 6.6 gm/dl (6.0-8.3)
[2023-07-16] MEDS: FUROSEMIDE 40 MG TAB PO SCH (08:30)
[2023-07-16] MEDS: APIXABAN 5 MG TABLET PO SCH ×2 (08:30→21:02)
[2023-07-16] MEDS: guaiFENesin/DEXTROM SYRUP 100MG/10MG 5ML UDC PO PRN (08:31)
[2023-07-16] MEDS: GABAPENTIN 300 MG CAP PO SCH ×2 (08:31→20:57)
[2023-07-16] MEDS: DOCUSATE SODIUM/SENNA 50/8.6MG TAB PO SCH ×2 (08:31→21:02)
[2023-07-16] MEDS: CALCIUM 600MG + VIT D 400 IU TAB PO SCH ×2 (08:31→21:00)
[2023-07-16] MEDS: POTASSIUM CHLORIDE CRTAB 20 MEQ TABCR PO SCH ×2 (08:31→21:01)
[2023-07-16] MEDS: OMEGA-3 (PURIFIED FISH OIL) 1 GM CAP PO SCH ×2 (08:31→20:59)
[2023-07-16] MEDS: METOPROLOL SUCC 25MG EXT REL TAB PO SCH ×2 (08:31→21:00)
[2023-07-16] MEDS: ATORVASTATIN 40 MG TAB PO SCH (08:31)
[2023-07-16] MEDS: PANTOprazole 40 MG TAB PO SCH (08:31)
[2023-07-16] MEDS: INSULIN ASPART PER UNIT CHARGE SC SCH ×4 (08:32→21:03)
[2023-07-16] MEDS: CYANOCOBALAMIN (B-12) 500 MCG TABLET PO SCH (08:32)
[2023-07-16] MEDS: DEXTROMETHORPHAN POLYMR COMPLX 60 MG/10 ML UDP PO SCH ×2 (08:32→21:06)
[2023-07-16] MEDS: POLYETHYLENE (MIRALAX) 17 GM PACK PO SCH (08:32)
[2023-07-16 08:34] LABS: Troponin I High Sensitivity 26.4 pg/ml (0-20)
[2023-07-16 08:53] LABS: Basophils # (auto) 0.04 K/uL (0.00-0.20); Eosinophils # (auto) 0.05 K/uL (0.00-0.50); Eosinophils % (auto) 1.2 %; Hematocrit (blood only) 33.5 % (42.0-52.0); Hemoglobin 10.8 g/dl (14.0-18.0); Immature Granulocytes # (auto) 0.03 K/uL (0.01-0.20); Immature Granulocytes % (auto) 0.7 %; Lymphocytes % (auto) 12.2 %; Mean Corpuscular Hemoglobin 30.3 pg (25.0-34.0); Mean Corpuscular Hgb Conc 32.2 g/dL (32.0-36.0); Mean Corpuscular Volume 94.1 fL (80.0-100.0); Mean Platelet Volume 11.7 fL (9.4-12.4); Monocytes # (auto) 0.47 K/uL (0.11-0.59); Monocytes % (auto) 11.4 %; Neutrophils # (auto) 3.02 K/uL (1.40-6.50); Neutrophils % (auto) 73.5 %; Platelet Count 151 K/uL (130-400); RDW Coefficient of Variation 14.8 % (11.5-14.5); RDW Standard Deviation 51.3 fL (36.4-46.3); Red Blood Count 3.56 M/uL (4.70-6.10); White Blood Count 4.11 K/ul (4.8-10.8)
--- NOTE | 2023-07-16 09:27 | Cardiology Progress Note ---
Date of Service July 16, 2023 Assessment & Plan (1) Pneumonia: (2) Tachy-noman syndrome: (3) Atrial flutter: (4) Pacemaker: (5) Chronic heart failure with reduced ejection fraction and diastolic dysfunction: (6) Ischemic cardiomyopathy: (7) Multiple myeloma: Plan * Question if patient's chronic worsening shortness of breath is multifactorial with anemia / multiple myeloma, interstitial lung disease, ischemic cardiomyopathy with bypass grafts that are 30 years old (CBAG x 3 in 1993) and given fever , and CT findings underlying pneumonia still a consideration. * Hgb down to 7.5g/dl on 07/12/23, and improved to 10.5 g/d post transfusion -->8.8 g/dl-->8.7 --> 10.8 g/dl. * He reverted back to atrial fibrillation at 1500 on 07/15/23. Rates in the 80- 90s at rest, but higher with minimal exertion. * EKG 07/16/23 at 6:36 am=AF at 84 bpm, lateral ST depression, less prominent than prior tracings when in AF with RVR. * Continue metoprolol. * Continue Eliquis for stoke prophylaxis. * Plan for furosemide 20 mg IV am of 07/15/23, transition back to home oral dose for am of 07/16/23. * Pt feeling worse. Question if this is pneumonia. Pt denies brenna diarrhea, however given course of antibiotics C Diff may be a consideration. Admission and Anticipated Discharge Date Admission Date: July 06, 2023 Subjective Patient seen in cardiology follow up. Notes having a difficult night and morning thus far. Had developed recurrent subjective fevers and chills.No objective fever on vitals. Had an unexpected loss of bowel control in bed this am. He reverted back to atrial fibrillation at 1500 on 07/15/23. Rates in the 80-90s at rest, but higher with minimal exertion. Physical Exam Constitutional: no acute distress Eyes: PERRL, conjunctivae normal, anicteric sclerae Respiratory: Auscultation: no crackles, no rales and no wheezes Cardiovascular: Rate/Rhythm: + tachycardic and + irregularly irregular Extremities: no edema Gastrointestinal (Abdomen): normal bowel sounds, soft, nontender, no hepatosplenomegaly Neurologic: PERRL, EOMI, accommodation nl, no face palsy, no dysarthria Results & Data Vital Signs (Past 12 Hours) Vital Signs Temp Pulse Pulse Resp BP BP Pulse Ox 07/16/23 08:10 36.5 C 78 18 94/54 L 95 07/16/23 07:05 99 H 07/16/23 06:29 36.4 C L 77 22 105/65 99 07/16/23 04:13 37.1 C 81 18 96/57 L 96 07/16/23 00:15 07/15/23 23:38 36.5 C 86 16 118/66 95 07/15/23 21:29 O2 Del Method 07/16/23 08:10 Room Air 07/16/23 07:05 07/16/23 06:29 Room Air 07/16/23 04:13 Room Air 07/16/23 00:15 Room Air 07/15/23 23:38 Room Air 07/15/23 21:29 Room Air (1) Pneumonia Laterality: right Lung location: upper lobe of lung Pneumonia type: due to unspecified organism Qualified Code(s): J18.9 - Pneumonia, unspecified organism
[2023-07-16] MEDS ORDERED: guaiFENesin SUGAR FREE 100 MG/5 ML UDC PO PRN ×2 (12:06→12:15)
[2023-07-16] MEDS: DOXYCYCLINE HYCLATE 100 MG CAP PO SCH ×2 (13:36→21:07)
--- NOTE | 2023-07-16 14:45 | Pharmacy Report ---
Pharmacy Glycemic Short Note 2 - Date of Service July 16, 2023 - Glycemic Short BSG Results (Last 24 hours): 07/15/23 07/15/23 07/16/23 16:53 20:29 05:59 Glucose POC Glucose 202 H 196 H 137 H 07/16/23 07/16/23 07/16/23 06:48 08:07 11:52 Glucose 166 H POC Glucose 155 H 207 H OUTPATIENT ANTIDIABETIC REGIMEN: * Lantus 40 units SC HS * Novolog 15 units SC TIDM * Liraglutide 1.2mg SC once daily * HbA1C: 6.9% (07/07/23) ASSESSMENT: 07/16: * Dev received 68 units of insulin yesterday of which 30 were basal * Continues on Zosyn, no other acute stressors noted * Fasting BSG acceptable, will continue 30 units of Lantus, reassess with tomorrow's fasting BSG * Mealtime BSGs elevated, tightened carbohydrate ratio further 07/15: * Dev received 83 units of insulin yesterday of which 35 were basal * He continues to received Zosyn * Fasting BSG slightly below goal, will reduce Lantus by ~20% * Lunch and HS BSGs elevated yesterday, will tighten carb coverage 07/13: * BSGs trending up over past 24 hours w/ elevated fasting BSG at 240 mg/dL * This is likely related to the acetylcysteine infusion (mixed in dextrose), which is now discontinued * Will further tighten Novolog parameters today and allow for increased basal tonight. Will need to reassess BSG trend tomorrow morning 07/11: * Patient received 82 units of insulin yesterday, 50 units basal + 32 units bolus. BSGs were: [phone] mg/dL. Hyperglycemia likely due to no basal previous day. * Fasting BSG is 137 mg/dL this AM. Plan to get patient back to previous regimen of 45 units HS. This also matches home dosing time. Will give smaller basal dose this AM and larger dose in PM with hopes of going back to once a day at HS tomorrow. * No other changes. Remains on Zosyn. 07/10: * Dev received 40 units of insulin yesterday, all bolus. Basal was held per provider orders for BSG < 110 mg/dL. BSGs were: [phone] mg/dL. * Fasting BSG was 185 mg/dL this AM. Likely due to non-admin of basal yesterday. Believe patient needs basal on board soon so will split inpatient regimen to BID. Giving 25 units for now since behind. Will likely have to back off. * Trend down in postprandials yesterday. Will loosen Novolog today. 07/09: * 78 year old male admitted with pneumonia. History of DM2 on insulin therapy at home. Pharmacy consulted today to assist with glycemic management while inpatient in setting of elevated prandial BSGs. * BSGs the last 24h: [phone]/dL. Received 45 units of basal insulin yesterday and 21 units of bolus insulin. * Tolerating a diet and continues on antibiotics. * Given acceptable fasting BSGs, will keep basal dose of 45 units for tonight. Based upon historic glycemic data, will tighten Novolog starting at lunch to 20/5. Goal BSG also tightened to 110-140mg/dL. PLAN FOR INPATIENT GLYCEMIC CONTROL: * Basal insulin * Lantus 30 units SC at bedtime * Bolus insulin * NovoLog per scale ACHS or Q6hrs while NPO * Goal Range: Low 110 mg/dL - High 140 mg/dL * Correction Factor: 20 mg/dL/unit * Nutritional / Prandial insulin per carb ratio of 1 unit per 3 grams CHO consumed
--- NOTE | 2023-07-16 15:02 | XRay Report ---
XR chest 1V portable HISTORY: 78 years-old Male PNA f/u. Worsening sxns. Acute shortness of breath COMPARISON: 07/11/2023 TECHNIQUE: AP view of the chest FINDINGS: Persistent right upper lobe airspace opacities, mildly improved. Cardiac silhouette is enlarged. Left subclavian pacer. Prior median sternotomy. No pneumothorax or large pleural effusion. No overt pulmo nary edema. Degenerative spine. Emphysema. Chronic appearing right-sided rib fractures. No acute disp laced rib fractures identified. IMPRESSION: Emphysema with persistent right upper lobe pneumonia, mildly improved from 07/11/2023. ACT 112: Negative or not required by law. The above report was generated using voice recognition software. It may contain grammatical, syntax o r spelling errors. Electronically signed by: Uziel Nieto M.D. 07/16/2023 3:00 PM
--- NOTE | 2023-07-16 19:15 | Hospitalist Progress Note ---
Date of Service July 16, 2023 Assessment & Plan (1) Hospital acquired PNA: (2) Chronic heart failure with reduced ejection fraction and diastolic dysfunction: (3) Anemia: (4) Tachy-noman syndrome: (5) Elevated troponin: (6) Ischemic cardiomyopathy: (7) HTN (hypertension): (8) Leg wound, left: (9) Multiple myeloma: (10) Type 2 diabetes mellitus: (11) CAD (coronary artery disease): (12) HLD (hyperlipidemia): (13) Pacemaker: (14) ABDI (acute kidney injury): Plan Mr. Hernandez is a 78-year-old gentleman with PMH of chronic systolic CHF, chronic ischemic heart disease, HTN, HLD, CAD s/p CABG, history of STEMI, paroxysmal A- fib, SSS s/p pacemaker, DM type II, peripheral neuropathy, GERD, CKD, multiple myeloma on Darzalex, revlimid and decadron, last treatment was on 05/25/2023 (currently being held), emphysema, interstitial lung disease, h/o opioid-induced constipation and other medical problems who presented with RAYGOZA. Dyspnea on Exertion -Multifactorial: Interstitial lung disease, atrial fibrillation with RVR, acute on chronic systolic and diastolic CHF, symptomatic anemia, Pneumonia Immunocompromise state --CTA:No acute abnormality and in particular no evidence of pulmonary embolus. Airspace opacity is in the right upper lobe which may represent pneumonia. No evidence of interstitial pulmonary edema. Redemonstration of emphysema and interstitial lung disease. Cardiomegaly and pacemaker. -- Negative BioFire --Repeat CXR today shows emphysema with persistent right upper lobe pneumonia, mild improved from 07/11 Normal procalcitonin>>Repeat 0.58 Nasal MRSA Negative Repeat COVID screen negative --S/P 1 unit PRBCs Blood cultures negative to date Sputum culture normal [place] Saturating well on room air Suspect IV Lasix, now back on PO Lasix MWF per cardiology. Patient was on empiric cefepime, changed to Zosyn. Added doxycycline today 07/16 for atypical coverage Appreciate cardiology, ID input Will 2 step oxygen evaluation prior to discharge Consider pulmonary evaluation if patient continues to feel poorly with dyspnea ABDI on CKD II-III Avoid nephrotoxic agents as able Monitor renal function Cr 1.3 today Acute on Chronic Heart Failure with reduced EF (35-40% 06/2023) due to ischemic cardiomyopathy Severe Multivessel Coronary Artery Disease s/p CABG 1993 (BISHOP-LAD, gastroepiploic to RPDA, graft to OM) Atrial fibrillation Tachy-noman syndrome s/p PPM 2019 Not a candidate for amiodarone due to lung issues ? due to chemotherapeutic treatment for multiple myeloma with Darzalex faspro and Revlimid--both can increase fluid overload Diuretics as per cardiology On metoprolol succinate to 75 mg BID and digoxin On Eliquis for anticoagulation Elevated Liver enzymes Likely due to Revlimid DD: DILI, Hepatic congestion --Liver USD:The liver is normal in size and echotexture. No gallstones are seen Received N-acetylcysteine Seen by GI- AIH, viral hepatitis serologies negative LFTs Variable Chronic Hypotension-consider decreasing metoprolol if BP continues to be an issue. Cardiology following Peripheral Arterial Disease c/b left popliteal occlusion Chronic ulceration left forefoot Appears non-infectious, signs of healing/granulation tissue, no purulence Continue Wound care -Completed course of PO abx +inpatient administration of abx: cipro +2 days cefepime for Klebsiella/Enterobacter Chronic Pancytopenia Mild Neutropenia Multiple Myeloma IgA kappa with lytic bone lesions Initially dx 08/18/2021 with BM biopsy. Currently undergoing chemotherapy with Darzalex , revlimid and decadron Last received chemo 05/25: Follows with Dr. Garcia, took last dose of revlimid (possibly explaining pancytopenia), however given decline in performance status/infection, further treatment with Darzalex held Continue morphine IR 15 mg for pain, gabapentin 300 mg BID with bowel regimen Monitor CBC DM II Last A1C 6.9 Hold home agents Basal/bolus insulin while in-patient BSG AC HS DVT Px: Eliquis Disposition: Pending medical stability. Admission and Anticipated Discharge Date Admission Date: July 06, 2023 Subjective Patient was seen and examined at bedside. He feels worse compared to yesterday. He had an episode this morning where he was incontinent of bowels. Also had dyspnea on exertion and diaphoresis. No fever, chills, nausea or vomiting. Appetite poor today Review of Systems Review of Systems: All systems reviewed & are unremarkable except as noted in Subjective Physical Exam Physical Exam: General: Lying comfortably in bed, not in distress, on room air HEENT: EOMI, DEVANG, MMM Chest: Decreased breath sound bilaterally, no accessory muscle use CVS: Irregular, normal heart sounds, no murmur Abdomen: Soft, non tender, not distended, normal bowel sounds Neuro: Awake, alert, oriented, conversing well, non focal Extremities: No cyanosis, clubbing or edema Results & Data Results & Data Vital Signs (Past 12 Hours) Vital Signs Temp Pulse Pulse Pulse Resp BP BP 07/16/23 16:31 36.4 C L 86 18 81/48 L 91/59 L 07/16/23 11:42 36.4 C L 66 22 97/63 L 07/16/23 10:16 07/16/23 08:10 36.5 C 78 18 94/54 L 07/16/23 07:05 99 H Pulse Ox O2 Del Method 07/16/23 16:31 96 Room Air 07/16/23 11:42 96 Room Air 07/16/23 10:16 Room Air 07/16/23 08:10 95 Room Air 07/16/23 07:05
[2023-07-16] MEDS: MoRPHine SULFATE IR 15 MG TAB (IMMEDIATE RELEASE) PO PRN (19:56)
[2023-07-16] MEDS: MIRTAZAPINE TAB 15 MG TAB PO SCH (21:02)
[2023-07-16] MEDS: LANTUS PER UNIT CHARGE SC SCH (21:04)
[2023-07-17 04:01] LABS: Basophils # (auto) 0.02 K/uL (0.00-0.20); Basophils % (auto) 0.5 %; Eosinophils # (auto) 0.06 K/uL (0.00-0.50); Eosinophils % (auto) 1.5 %; Hemoglobin 10.3 g/dl (14.0-18.0); Immature Granulocytes # (auto) 0.03 K/uL (0.01-0.20); Immature Granulocytes % (auto) 0.7 %; Lymphocytes # (auto) 0.53 K/uL (1.20-3.40); Lymphocytes % (auto) 12.9 %; Mean Corpuscular Hemoglobin 30.7 pg (25.0-34.0); Mean Corpuscular Hgb Conc 33.2 g/dL (32.0-36.0); Mean Corpuscular Volume 92.5 fL (80.0-100.0); Mean Platelet Volume 12.7 fL (9.4-12.4); Monocytes # (auto) 0.39 K/uL (0.11-0.59); Monocytes % (auto) 9.5 %; Neutrophils # (auto) 3.08 K/uL (1.40-6.50); Neutrophils % (auto) 74.9 %; Platelet Count 159 K/uL (130-400); RDW Coefficient of Variation 14.8 % (11.5-14.5); RDW Standard Deviation 50.1 fL (36.4-46.3); Red Blood Count 3.35 M/uL (4.70-6.10); White Blood Count 4.11 K/ul (4.8-10.8)
[2023-07-17 04:20] LABS: Albumin Globulin Ratio 1.2 (0.9-2); Albumin Level 3.3 gm/dl (3.4-5.0); BUN Creatinine Ratio 16.6 (10-20); Bilirubin,Total 0.5 mg/dl (0.2-1.0); C Reactive Protein 4.33 mg/dl (0-0.5); Calcium 8.7 mg/dl (8.6-10.3); Creatinine Clr Calc Pharmacy 41.6 ml/min; Est GFR (African American) 53.5 ml/min; Est GFR (Non-African American) 46.1 ml/min; Globulin 2.8 gm/dl (2.5-4.0); Magnesium 1.7 mg/dl (1.7-2.4); Phosphorus 3.5 mg/dl (2.5-4.9); Potassium 3.7 mmol/L (3.5-5.1); Total Protein 6.1 gm/dl (6.0-8.3)
[2023-07-17] MEDS: APIXABAN 5 MG TABLET PO SCH ×2 (08:58→21:22)
[2023-07-17] MEDS: CALCIUM 600MG + VIT D 400 IU TAB PO SCH ×2 (08:58→21:22)
[2023-07-17] MEDS: POTASSIUM CHLORIDE CRTAB 20 MEQ TABCR PO SCH ×2 (08:58→21:22)
[2023-07-17] MEDS: CYANOCOBALAMIN (B-12) 500 MCG TABLET PO SCH (08:58)
[2023-07-17] MEDS: OMEGA-3 (PURIFIED FISH OIL) 1 GM CAP PO SCH ×2 (08:59→21:22)
[2023-07-17] MEDS: METOPROLOL SUCC 25MG EXT REL TAB PO SCH ×2 (08:59→21:22)
[2023-07-17] MEDS: DOCUSATE SODIUM/SENNA 50/8.6MG TAB PO SCH ×2 (08:59→21:23)
[2023-07-17] MEDS: GABAPENTIN 300 MG CAP PO SCH ×2 (08:59→21:22)
[2023-07-17] MEDS: ATORVASTATIN 40 MG TAB PO SCH (08:59)
[2023-07-17] MEDS: PANTOprazole 40 MG TAB PO SCH (08:59)
[2023-07-17] MEDS: DEXTROMETHORPHAN POLYMR COMPLX 60 MG/10 ML UDP PO SCH ×2 (09:00→21:23)
[2023-07-17] MEDS: POLYETHYLENE (MIRALAX) 17 GM PACK PO SCH (09:00)
[2023-07-17] MEDS: DOXYCYCLINE HYCLATE 100 MG CAP PO SCH ×2 (09:01→21:22)
[2023-07-17] MEDS: INSULIN ASPART PER UNIT CHARGE SC SCH ×4 (09:01→21:23)
--- NOTE | 2023-07-17 13:55 | Hospitalist Progress Note ---
Date of Service July 17, 2023 Assessment & Plan (1) Hospital acquired PNA: (2) Chronic heart failure with reduced ejection fraction and diastolic dysfunction: (3) Anemia: (4) Tachy-noman syndrome: (5) Elevated troponin: (6) Ischemic cardiomyopathy: (7) HTN (hypertension): (8) Leg wound, left: (9) Multiple myeloma: (10) Type 2 diabetes mellitus: (11) CAD (coronary artery disease): (12) HLD (hyperlipidemia): (13) Pacemaker: (14) ABDI (acute kidney injury): Plan Mr. Hernandez is a 78-year-old gentleman with PMH of chronic systolic CHF, chronic ischemic heart disease, HTN, HLD, CAD s/p CABG, history of STEMI, paroxysmal A- fib, SSS s/p pacemaker, DM type II, peripheral neuropathy, GERD, CKD, multiple myeloma on Darzalex, revlimid and decadron, last treatment was on 05/25/2023 (currently being held), emphysema, interstitial lung disease, h/o opioid-induced constipation and other medical problems who presented with RAYGOZA. Dyspnea on Exertion, likely multifactorial: Interstitial lung disease, atrial fibrillation with RVR, acute on chronic systolic and diastolic CHF, symptomatic anemia, Pneumonia Immunocompromised state --CTA:No acute abnormality and in particular no evidence of pulmonary embolus. Airspace opacity is in the right upper lobe which may represent pneumonia. No evidence of interstitial pulmonary edema. Redemonstration of emphysema and interstitial lung disease. Cardiomegaly and pacemaker. -- Negative BioFire --Repeat CXR 07/16 shows emphysema with persistent right upper lobe pneumonia, mild improved from 07/11 --Normal procalcitonin>>Repeat 0.58 --Nasal MRSA Negative --Repeat COVID screen negative --S/P 1 unit PRBCs --Blood cultures negative to date --Sputum culture negative Saturating well on room air Status post IV Lasix, now back on PO Lasix MWF per cardiology. Patient was on empiric cefepime, changed to Zosyn. Added doxycycline today 07/16 for atypical coverage Appreciate cardiology, ID input Will 2 step oxygen evaluation prior to discharge Consider pulmonary evaluation if patient continues to feel poorly with dyspnea ABDI on CKD [id number] function stable around 1.4. Avoid nephrotoxic agents as able. Monitor renal function Acute on Chronic Heart Failure with reduced EF (35-40% 06/2023) due to ischemic cardiomyopathy Severe Multivessel Coronary Artery Disease s/p CABG 1993 (BISHOP-LAD, gastroepiploic to RPDA, graft to OM) Atrial fibrillation Tachy-noman syndrome s/p PPM 2019 Not a candidate for amiodarone due to lung issues ? due to chemotherapeutic treatment for multiple myeloma with Darzalex faspro and Revlimid--both can increase fluid overload Diuretics as per cardiology On metoprolol succinate to 75 mg BID and digoxin On Eliquis for anticoagulation Elevated Liver enzymes Likely due to Revlimid DD: DILI, Hepatic congestion --Liver USD:The liver is normal in size and echotexture. No gallstones are seen Received N-acetylcysteine Seen by GI- AIH, viral hepatitis serologies negative LFTs elevated but stable Chronic Hypotension-consider decreasing metoprolol if BP continues to be an issue. Cardiology following Peripheral Arterial Disease c/b left popliteal occlusion Chronic ulceration left forefoot Appears non-infectious, signs of healing/granulation tissue, no purulence Continue Wound care -Completed course of PO abx +inpatient administration of abx: cipro +2 days cefepime for Klebsiella/Enterobacter Chronic Pancytopenia Mild Neutropenia Multiple Myeloma IgA kappa with lytic bone lesions Initially dx 08/18/2021 with BM biopsy. Currently undergoing chemotherapy with Darzalex , revlimid and decadron Last received chemo 05/25: Follows with Dr. Garcia, took last dose of revlimid (possibly explaining pancytopenia), however given decline in performance status/infection, further treatment with Darzalex held Continue morphine IR 15 mg for pain, gabapentin 300 mg BID with bowel regimen Monitor CBC DM II Last A1C 6.9 Hold home agents Basal/bolus insulin while in-patient BSG AC HS DVT Px: Eliquis Disposition: Pending medical stability. Admission and Anticipated Discharge Date Admission Date: July 06, 2023 Subjective Patient was seen and examined at bedside. He feels better today. Denies any chest pain or shortness of breath no nausea vomiting. He has not got out of bed today yet,, hence he cannot say whether he would be symptomatic with that. Review of Systems Review of Systems: All systems reviewed & are unremarkable except as noted in Subjective Physical Exam Physical Exam: General: Lying comfortably in bed, not in distress, on room air HEENT: EOMI, DEVANG, MMM Chest: Decreased breath sound bilaterally, no accessory muscle use CVS: Irregular, normal heart sounds, no murmur Abdomen: Soft, non tender, not distended, normal bowel sounds Neuro: Awake, alert, oriented, conversing well, non focal Extremities: No cyanosis, clubbing or edema Results & Data Results & Data Vital Signs (Past 12 Hours) Vital Signs Temp Pulse Pulse Resp BP BP Pulse Ox 07/17/23 12:00 37.0 C 89 18 118/71 110/72 98 07/17/23 10:48 07/17/23 07:16 37.4 C 87 18 127/69 98 07/17/23 07:27 75 07/17/23 04:41 60 07/17/23 03:00 36.3 C L 84 16 133/86 94 O2 Del Method O2 Flow Rate 07/17/23 12:00 Nasal Cannula 1 07/17/23 10:48 Room Air 07/17/23 07:16 Room Air 07/17/23 07:27 07/17/23 04:41 07/17/23 03:00 Room Air Laboratory Results Short CBC 07/17/23 Range/Units 03:13 WBC 4.11 L (4.8-10.8) K/ul Hgb 10.3 L (14.0-18.0) g/dl Hct 31.0 L (42.0-52.0) % Plt Count 159 (130-400) K/uL BMP 07/17/23 03:13 Sodium 138 Potassium 3.7 Chloride 103 Carbon Dioxide 25 BUN 24 H Creatinine 1.45 H Glucose 112 H Calcium 8.7 Liver Function 07/17/23 Range/Units 03:13 Total Bilirubin 0.5 (0.2-1.0) mg/dl AST 147 H (13-39) U/L ALT 201 H (7-52) U/L Alkaline Phosphatase 118 H (34-104) U/L Albumin 3.3 L (3.4-5.0) gm/dl Medications Administered Current Inpatient Medications Acetaminophen (Acetaminophen 325 Mg Tab) 650 mg PO Q4H PRN PRN Reason: Pain or Fever Stop: 08/05/23 21:02 Last Admin: 07/08/23 23:57 Dose: 650 mg Acetaminophen (Acetaminophen 325 Mg Tab) 325 mg PO Q6H PRN PRN Reason: fever/pain Stop: 08/11/23 20:37 Last Admin: 07/12/23 21:21 Dose: 325 mg Albuterol (Albuterol Hfa 8 Gm Inhaler) 2 puffs INH Q6H PRN PRN Reason: COUGH/SHORT OF BREATH/WHEEZING Stop: 08/05/23 21:02 Apixaban (Apixaban 5 Mg Tablet) 5 mg PO BID RIVERA Stop: 08/05/23 21:02 Last Admin: 07/17/23 08:58 Dose: 5 mg Atorvastatin Calcium (Atorvastatin 40 Mg Tab) 40 mg PO DAILY RIVERA Stop: 08/06/23 08:59 Last Admin: 07/17/23 08:59 Dose: 40 mg Calcium/Vitamin D (Calcium 600mg + Vit D 400 Iu Tab) 1 tab PO BID RIVERA Stop: 08/05/23 21:29 Last Admin: 07/17/23 08:58 Dose: 1 tab Cyanocobalamin (Cyanocobalamin (B-12) 500 Mcg Tablet) 1,000 mcg PO DAILY RIVERA Stop: 08/06/23 08:59 Last Admin: 07/17/23 08:58 Dose: 1,000 mcg Dextromethorphan Polymer Complex (Dextromethorphan Polymr Complx 60 Mg/10 Ml Udp) 60 mg PO Q12 [facility]IVERA Stop: 08/13/23 13:29 Last Admin: 07/17/23 09:00 Dose: 60 mg Dextrose (Dextrose 50% 50 Ml Syringe) 25 - 50 ml IV UD PRN; Protocol PRN Reason: Hypoglycemia Protocol Stop: 08/05/23 21:02 Digoxin (Digoxin 0.125 Mg Tab) 0.125 mg PO Q2D@1600 [facility] Stop: 08/06/23 15:59 Last Admin: 07/15/23 17:43 Dose: 0.125 mg Doxycycline Hyclate (Doxycycline Hyclate 100 Mg Cap) 100 mg PO BID@1000,2200 [facility] Stop: 07/23/23 12:59 Last Admin: 07/17/23 09:01 Dose: 100 mg Fish Oil ([place]-3 (Purified Fish Oil) 1 Gm Cap) 1 gm PO BID RIVERA Stop: 08/05/23 21:14 Last Admin: 07/17/23 08:59 Dose: 1 gm Furosemide (Furosemide 40 Mg Tab) 40 mg PO MoWeFr@0900 [facility] Stop: 08/06/23 08:59 Last Admin: 07/16/23 08:30 Dose: 40 mg Gabapentin (Gabapentin 300 Mg Cap) 300 mg PO AMHS [facility]A Stop: 08/05/23 21:14 Last Admin: 07/17/23 08:59 Dose: 300 mg Glucagon (Glucagon For Inj 1 Mg Vial) 1 mg SQ UD PRN; Protocol PRN Reason: Hypoglycemia Protocol Stop: 08/05/23 21:02 Glucose (Glucose 10 Tab/Tube) 4 - 8 tab PO UD PRN; Protocol PRN Reason: Hypoglycemia Treatment Stop: 08/05/23 21:02 Glucose (Glucose 40% Gel 15 Gm Tube) 15 - 30 gm PO UD PRN; Protocol PRN Reason: Hypoglycemia Protocol Stop: 08/05/23 21:02 Guaifenesin (Guaifenesin Sugar Free 100 Mg/5 Ml Udc) 100 mg PO Q6H PRN PRN Reason: Cough Stop: 08/15/23 12:05 Insulin Aspart (Insulin Aspart Per Unit Charge) [address] [facility]; Protocol Stop: 08/05/23 21:14 Last Admin: 07/17/23 12:56 Dose: 11 units Insulin Glargine (Lantus Per Unit Charge) 30 units SC [facility] Stop: 08/13/23 20:59 Last Admin: 07/16/23 21:04 Dose: 30 units Metoprolol Succinate (Metoprolol Succ 25mg Ext Rel Tab) 75 mg PO BID [facility] Stop: 08/08/23 20:59 Last Admin: 07/17/23 08:59 Dose: 75 mg Mirtazapine (Mirtazapine Tab 15 Mg Tab) 30 mg PO HS [facility] Stop: 08/05/23 21:14 Last Admin: 07/16/23 21:02 Dose: 30 mg Miscellaneous (Carbohydrates For Hypoglycemia ) 15 - 30 gm PO UD PRN PRN Reason: Hypoglycemia Protocol Stop: 08/05/23 21:02 Miscellaneous Information (Pharmacy Glycemic Mgmt Consult) 1 each N/A UD PRN; Protocol PRN Reason: Consult Stop: 08/08/23 11:51 Morphine Sulfate (Morphine Sulfate Ir 15 Mg Tab (Immediate Release)) 15 mg PO Q4H PRN PRN Reason: Pain Stop: 07/20/23 21:02 Last Admin: 07/16/23 19:56 Dose: 15 mg Pantoprazole Sodium (Pantoprazole 40 Mg Tab) 40 mg PO QAM [facility] Stop: 08/06/23 08:59 Last Admin: 07/17/23 08:59 Dose: 40 mg Polyethylene Glycol (Polyethylene (Miralax) 17 Gm Pack) 17 gm PO DAILY [facility] Stop: 08/06/23 13:29 Last Admin: 07/17/23 09:00 Dose: Not Given Potassium Chloride (Potassium Chloride Crtab 20 Meq Tabcr) 20 meq PO BID [facility] Stop: 08/05/23 21:14 Last Admin: 07/17/23 08:58 Dose: 20 meq Prochlorperazine (Prochlorperazine Maleate 10 Mg Tab) 10 mg PO Q6H PRN PRN Reason: nausea Stop: 08/05/23 21:02 Last Admin: 07/11/23 08:37 Dose: 10 mg Senna/Docusate Sodium (Docusate Sodium/Senna 50/8.6mg Tab) 1 tab PO BID [facility] Stop: 08/07/23 20:39 Last Admin: 07/17/23 08:59 Dose: Not Given Sennosides (Senna 8.6 Mg Tab) 17.2 mg PO HS PRN PRN Reason: Constipation Stop: 08/05/23 21:02
[2023-07-17] MEDS: DIGOXIN 0.125 MG TAB PO SCH (17:31)
--- NOTE | 2023-07-17 19:48 | Electrocardiogram Report ---
Test Reason : Blood Pressure : / mmHG Vent. Rate : 084 BPM Atrial Rate : 375 BPM P-R Int : 000 ms QRS Dur : 104 ms QT Int : 400 ms P-R-T Axes : 000 073 011 degrees QTc Int : [address] depression, consider subendocardial injury Abnormal ECG When compared with ECG of 11-JUL-2023 10:40, Atrial fibrillation has replaced Sinus rhythm Non-specific change in ST segment in Inferior leads ST now depressed in Anterior leads Confirmed by Juan M Akhtar ([id number] on 07/17/2023 7:47:54 PM Referred By: REFERRED SELF Confirmed By:Juan M Akhtar
[2023-07-17] MEDS: MoRPHine SULFATE IR 15 MG TAB (IMMEDIATE RELEASE) PO PRN (21:20)
[2023-07-17] MEDS: MIRTAZAPINE TAB 15 MG TAB PO SCH (21:22)
[2023-07-17] MEDS: LANTUS PER UNIT CHARGE SC SCH (21:23)
[2023-07-18 06:17] LABS: BUN Creatinine Ratio 22.5 (10-20); Est GFR (African American) 61.6 ml/min; Est GFR (Non-African American) 53.1 ml/min; Potassium 4.1 mmol/L (3.5-5.1)
[2023-07-18] MEDS: DEXTROMETHORPHAN POLYMR COMPLX 60 MG/10 ML UDP PO SCH (09:39)
[2023-07-18] MEDS: DOXYCYCLINE HYCLATE 100 MG CAP PO SCH ×2 (09:39→21:04)
[2023-07-18] MEDS: CYANOCOBALAMIN (B-12) 500 MCG TABLET PO SCH (09:39)
[2023-07-18] MEDS: DOCUSATE SODIUM/SENNA 50/8.6MG TAB PO SCH ×2 (09:39→21:06)
[2023-07-18] MEDS: GABAPENTIN 300 MG CAP PO SCH ×2 (09:39→21:07)
[2023-07-18] MEDS: CALCIUM 600MG + VIT D 400 IU TAB PO SCH ×2 (09:39→21:05)
[2023-07-18] MEDS: METOPROLOL SUCC 25MG EXT REL TAB PO SCH ×2 (09:39→21:05)
[2023-07-18] MEDS: APIXABAN 5 MG TABLET PO SCH ×2 (09:39→21:05)
[2023-07-18] MEDS: ATORVASTATIN 40 MG TAB PO SCH (09:39)
[2023-07-18] MEDS: OMEGA-3 (PURIFIED FISH OIL) 1 GM CAP PO SCH ×2 (09:39→21:05)
[2023-07-18] MEDS: POLYETHYLENE (MIRALAX) 17 GM PACK PO SCH (09:40)
[2023-07-18] MEDS: PANTOprazole 40 MG TAB PO SCH (09:40)
[2023-07-18] MEDS: INSULIN ASPART PER UNIT CHARGE SC SCH ×4 (09:41→21:32)
[2023-07-18] MEDS: POTASSIUM CHLORIDE CRTAB 20 MEQ TABCR PO SCH ×2 (09:46→21:05)
[2023-07-18] MEDS ORDERED: SODIUM CHLORIDE 0.9% NEBU SOLN 3 ML NEB SCH (09:55)
[2023-07-18] MEDS: guaiFENesin 600 MG TABCR PO SCH ×2 (10:10→21:06)
[2023-07-18] MEDS: SODIUM CHLOR 7% 4 ML NEB NEB SCH ×2 (12:00→19:38)
--- NOTE | 2023-07-18 12:15 | Hospitalist Progress Note ---
Date of Service July 18, 2023 Assessment & Plan (1) Hospital acquired PNA: (2) Chronic heart failure with reduced ejection fraction and diastolic dysfunction: (3) Anemia: (4) Tachy-noman syndrome: (5) Elevated troponin: (6) Ischemic cardiomyopathy: (7) HTN (hypertension): (8) Leg wound, left: (9) Multiple myeloma: (10) Type 2 diabetes mellitus: (11) CAD (coronary artery disease): (12) HLD (hyperlipidemia): (13) Pacemaker: (14) ABDI (acute kidney injury): Plan Mr. Hernandez is a 78-year-old gentleman with PMH of chronic systolic CHF, chronic ischemic heart disease, HTN, HLD, CAD s/p CABG, history of STEMI, paroxysmal A- fib, SSS s/p pacemaker, DM type II, peripheral neuropathy, GERD, CKD, multiple myeloma on Darzalex, revlimid and decadron, last treatment was on 05/25/2023 (currently being held), emphysema, interstitial lung disease, h/o opioid-induced constipation and other medical problems who presented with RAYGOZA. Dyspnea on Exertion, likely multifactorial: Interstitial lung disease, atrial fibrillation with RVR, acute on chronic systolic and diastolic CHF, symptomatic anemia, Pneumonia Immunocompromised state --CTA:No acute abnormality and in particular no evidence of pulmonary embolus. Airspace opacity is in the right upper lobe which may represent pneumonia. No evidence of interstitial pulmonary edema. Redemonstration of emphysema and interstitial lung disease. Cardiomegaly and pacemaker. -- Negative BioFire --Repeat CXR 07/16 shows emphysema with persistent right upper lobe pneumonia, mild improved from 07/11 --Normal procalcitonin>>Repeat 0.58 --Nasal MRSA Negative --Repeat COVID screen negative --S/P 1 unit PRBCs --Blood cultures negative to date --Sputum culture negative Saturating well on room air Status post IV Lasix, now back on PO Lasix MWF per cardiology. Patient was on empiric cefepime, changed to Zosyn. Added doxycycline today 07/16 for atypical coverage Still with difficulty expectorating- will change antitussive to mucinex bid along with saline nebs. Continue IS and flutter valve. Appreciate cardiology, ID input Will 2 step oxygen evaluation prior to discharge Consider pulmonary evaluation if patient continues to feel poorly with dyspnea BADI on CKD [id number] function stable around 1.3. Avoid nephrotoxic agents as able. Monitor renal function Acute on Chronic Heart Failure with reduced EF (35-40% 06/2023) due to ischemic cardiomyopathy Severe Multivessel Coronary Artery Disease s/p CABG 1993 (BISHOP-LAD, gastroepiploic to RPDA, graft to OM) Atrial fibrillation Tachy-noman syndrome s/p PPM 2019 Not a candidate for amiodarone due to lung issues ? due to chemotherapeutic treatment for multiple myeloma with Darzalex faspro and Revlimid--both can increase fluid overload Diuretics as per cardiology On metoprolol succinate to 75 mg BID and digoxin On Eliquis for anticoagulation Elevated Liver enzymes Likely due to Revlimid DD: DILI, Hepatic congestion --Liver USD:The liver is normal in size and echotexture. No gallstones are seen Received N-acetylcysteine Seen by GI- AIH, viral hepatitis serologies negative LFTs elevated but stable Chronic Hypotension-consider decreasing metoprolol if BP continues to be an issue. Cardiology following Peripheral Arterial Disease c/b left popliteal occlusion Chronic ulceration left forefoot Appears non-infectious, signs of healing/granulation tissue, no purulence Continue Wound care -Completed course of PO abx +inpatient administration of abx: cipro +2 days cefepime for Klebsiella/Enterobacter Chronic Pancytopenia Mild Neutropenia Multiple Myeloma IgA kappa with lytic bone lesions Initially dx 08/18/2021 with BM biopsy. Currently undergoing chemotherapy with Darzalex , revlimid and decadron Last received chemo 05/25: Follows with Dr. Garcia, took last dose of revlimid (possibly explaining pancytopenia), however given decline in performance status/infection, further treatment with Darzalex held Continue morphine IR 15 mg for pain, gabapentin 300 mg BID with bowel regimen Monitor CBC DM II Last A1C 6.9 Hold home agents Basal/bolus insulin while in-patient BSG AC HS DVT Px: Eliquis Disposition: Pending medical stability. Admission and Anticipated Discharge Date Admission Date: July 06, 2023 Subjective Patient was seen and examined at bedside. He feels better. However still having difficulty expectorating the urbano yellow phlegm. No dyspnea at rest. No fever, chills, N/V, CP. Review of Systems Review of Systems: All systems reviewed & are unremarkable except as noted in Subjective Physical Exam Physical Exam: General: Lying comfortably in bed, not in distress, on room air HEENT: EOMI, DEVANG, MMM Chest: Decreased breath sound bilaterally, no accessory muscle use CVS: Irregular, normal heart sounds, no murmur Abdomen: Soft, non tender, not distended, normal bowel sounds Neuro: Awake, alert, oriented, conversing well, non focal Extremities: No cyanosis, clubbing or edema Results & Data Results & Data Vital Signs (Past 12 Hours) Vital Signs Temp Pulse Pulse Pulse Resp BP Pulse Ox 07/18/23 12:03 72 18 07/18/23 11:00 36.6 C 69 18 98 07/18/23 10:10 07/18/23 08:42 36.8 C 66 18 129/75 97 07/18/23 07:59 60 07/18/23 03:00 36.4 C L 65 18 136/69 96 O2 Del Method 07/18/23 12:03 Room Air 07/18/23 11:00 Room Air 07/18/23 10:10 Room Air 07/18/23 08:42 Room Air 07/18/23 07:59 07/18/23 03:00 Nasal Cannula Laboratory Results [facility] 07/18/23 05:26 Sodium 138 Potassium 4.1 Chloride 106 Carbon Dioxide 25 BUN 29 H Creatinine 1.29 Glucose 121 H Calcium 9.0 Medications Administered Current Inpatient Medications Acetaminophen (Acetaminophen 325 Mg Tab) 650 mg PO Q4H PRN PRN Reason: Pain or Fever Stop: 08/05/23 21:02 Last Admin: 07/08/23 23:57 Dose: 650 mg Acetaminophen (Acetaminophen 325 Mg Tab) 325 mg PO Q6H PRN PRN Reason: fever/pain Stop: 08/11/23 20:37 Last Admin: 07/12/23 21:21 Dose: 325 mg Albuterol (Albuterol Hfa 8 Gm Inhaler) 2 puffs INH Q6H PRN PRN Reason: COUGH/SHORT OF BREATH/WHEEZING Stop: 08/05/23 21:02 Apixaban (Apixaban 5 Mg Tablet) 5 mg PO BID [facility] Stop: 08/05/23 21:02 Last Admin: 07/18/23 09:39 Dose: 5 mg Atorvastatin Calcium (Atorvastatin 40 Mg Tab) 40 mg PO DAILY [facility] Stop: 08/06/23 08:59 Last Admin: 07/18/23 09:39 Dose: 40 mg Calcium/Vitamin D (Calcium 600mg + Vit D 400 Iu Tab) 1 tab PO BID [facility] Stop: 08/05/23 21:29 Last Admin: 07/18/23 09:39 Dose: 1 tab Cyanocobalamin (Cyanocobalamin (B-12) 500 Mcg Tablet) 1,000 mcg PO DAILY [facility] Stop: 08/06/23 08:59 Last Admin: 07/18/23 09:39 Dose: 1,000 mcg Dextrose (Dextrose 50% 50 Ml Syringe) 25 - 50 ml IV UD PRN; Protocol PRN Reason: Hypoglycemia Protocol Stop: 08/05/23 21:02 Digoxin (Digoxin 0.125 Mg Tab) 0.125 mg PO Q2D@1600 [facility] Stop: 08/06/23 15:59 Last Admin: 07/17/23 17:31 Dose: 0.125 mg Doxycycline Hyclate (Doxycycline Hyclate 100 Mg Cap) 100 mg PO BID@1000,2200 [facility] Stop: 07/23/23 12:59 Last Admin: 07/18/23 09:39 Dose: 100 mg Fish Oil ([place]-3 (Purified Fish Oil) 1 Gm Cap) 1 gm PO BID [facility] Stop: 08/05/23 21:14 Last Admin: 07/18/23 09:39 Dose: 1 gm Furosemide (Furosemide 40 Mg Tab) 40 mg PO MoWeFr@0900 [facility] Stop: 08/06/23 08:59 Last Admin: 07/16/23 08:30 Dose: 40 mg Gabapentin (Gabapentin 300 Mg Cap) 300 mg PO AMHS [facility] Stop: 08/05/23 21:14 Last Admin: 07/18/23 09:39 Dose: 300 mg Glucagon (Glucagon For Inj 1 Mg Vial) 1 mg SQ UD PRN; Protocol PRN Reason: Hypoglycemia Protocol Stop: 08/05/23 21:02 Glucose (Glucose 10 Tab/Tube) 4 - 8 tab PO UD PRN; Protocol PRN Reason: Hypoglycemia Treatment Stop: 08/05/23 21:02 Glucose (Glucose 40% Gel 15 Gm Tube) 15 - 30 gm PO UD PRN; Protocol PRN Reason: Hypoglycemia Protocol Stop: 08/05/23 21:02 Guaifenesin (Guaifenesin 600 Mg Tabcr) 1,200 mg PO Q12 [facility] Stop: 08/17/23 09:44 Last Admin: 07/18/23 10:10 Dose: Not Given Insulin Aspart (Insulin Aspart Per Unit Charge) 0 units SC ACHS [facility]; Protocol Stop: 08/05/23 21:14 Last Admin: 07/18/23 09:41 Dose: 27 units Insulin Glargine (Lantus Per Unit Charge) 30 units SC HS [facility] Stop: 08/13/23 20:59 Last Admin: 07/17/23 21:23 Dose: 30 units Metoprolol Succinate (Metoprolol Succ 25mg Ext Rel Tab) 75 mg PO BID [facility] Stop: 08/08/23 20:59 Last Admin: 07/18/23 09:39 Dose: 75 mg Mirtazapine (Mirtazapine Tab 15 Mg Tab) 30 mg PO HS [facility] Stop: 08/05/23 21:14 Last Admin: 07/17/23 21:22 Dose: 30 mg Miscellaneous (Carbohydrates For Hypoglycemia ) 15 - 30 gm PO UD PRN PRN Reason: Hypoglycemia Protocol Stop: 08/05/23 21:02 Miscellaneous Information (Pharmacy Glycemic Mgmt Consult) 1 each N/A UD PRN; Protocol PRN Reason: Consult Stop: 08/08/23 11:51 Morphine Sulfate (Morphine Sulfate Ir 15 Mg Tab (Immediate Release)) 15 mg PO Q4H PRN PRN Reason: Pain Stop: 07/20/23 21:02 Last Admin: 07/17/23 21:20 Dose: 15 mg Pantoprazole Sodium (Pantoprazole 40 Mg Tab) 40 mg PO QAM [facility] Stop: 08/06/23 08:59 Last Admin: 07/18/23 09:40 Dose: 40 mg Polyethylene Glycol (Polyethylene (Miralax) 17 Gm Pack) 17 gm PO DAILY [facility] Stop: 08/06/23 13:29 Last Admin: 07/18/23 09:40 Dose: Not Given Potassium Chloride (Potassium Chloride Crtab 20 Meq Tabcr) 20 meq PO BID [facility] Stop: 08/05/23 21:14 Last Admin: 07/18/23 09:46 Dose: 20 meq Prochlorperazine (Prochlorperazine Maleate 10 Mg Tab) 10 mg PO Q6H PRN PRN Reason: nausea Stop: 08/05/23 21:02 Last Admin: 07/11/23 08:37 Dose: 10 mg Senna/Docusate Sodium (Docusate Sodium/Senna 50/8.6mg Tab) 1 tab PO BID [facility] Stop: 08/07/23 20:39 Last Admin: 07/18/23 09:39 Dose: 1 tab Sennosides (Senna 8.6 Mg Tab) 17.2 mg PO HS PRN PRN Reason: Constipation Stop: 08/05/23 21:02 Sodium Chloride (Sodium Chlor 7% 4 Ml Neb) 4 ml NEB TIDR [facility] Stop: 08/17/23 10:13 Last Admin: 07/18/23 12:00 Dose: 4 ml
[2023-07-18] MEDS: MoRPHine SULFATE IR 15 MG TAB (IMMEDIATE RELEASE) PO PRN (20:02)
[2023-07-18] MEDS: LANTUS PER UNIT CHARGE SC SCH (21:03)
[2023-07-18] MEDS: MIRTAZAPINE TAB 15 MG TAB PO SCH (21:06)
[2023-07-19 06:02] LABS: Hematocrit (blood only) 28.1 % (42.0-52.0); Hemoglobin 9.3 g/dl (14.0-18.0); Mean Corpuscular Hemoglobin 30.4 pg (25.0-34.0); Mean Corpuscular Hgb Conc 33.1 g/dL (32.0-36.0); Mean Corpuscular Volume 91.8 fL (80.0-100.0); Mean Platelet Volume 12.5 fL (9.4-12.4); Platelet Count 144 K/uL (130-400); RDW Coefficient of Variation 14.8 % (11.5-14.5); RDW Standard Deviation 49.8 fL (36.4-46.3); Red Blood Count 3.06 M/uL (4.70-6.10); White Blood Count 3.76 K/ul (4.8-10.8)
[2023-07-19 06:23] LABS: Albumin Globulin Ratio 1.3 (0.9-2); Albumin Level 3.1 gm/dl (3.4-5.0); BUN Creatinine Ratio 22.1 (10-20); Bilirubin,Total 0.4 mg/dl (0.2-1.0); Calcium 8.8 mg/dl (8.6-10.3); Creatinine Clr Calc Pharmacy 48.5 ml/min; Est GFR (African American) 65.9 ml/min; Est GFR (Non-African American) 56.8 ml/min; Globulin 2.4 gm/dl (2.5-4.0); Total Protein 5.5 gm/dl (6.0-8.3)
[2023-07-19] MEDS: SODIUM CHLOR 7% 4 ML NEB NEB SCH ×3 (07:18→19:39)
[2023-07-19] MEDS: POTASSIUM CHLORIDE CRTAB 20 MEQ TABCR PO SCH ×2 (08:14→19:55)
[2023-07-19] MEDS: APIXABAN 5 MG TABLET PO SCH ×2 (08:14→19:55)
[2023-07-19] MEDS: CALCIUM 600MG + VIT D 400 IU TAB PO SCH ×2 (08:14→19:55)
[2023-07-19] MEDS: METOPROLOL SUCC 25MG EXT REL TAB PO SCH ×2 (08:14→19:55)
[2023-07-19] MEDS: OMEGA-3 (PURIFIED FISH OIL) 1 GM CAP PO SCH ×2 (08:14→19:55)
[2023-07-19] MEDS: PANTOprazole 40 MG TAB PO SCH (08:14)
[2023-07-19] MEDS: GABAPENTIN 300 MG CAP PO SCH ×2 (08:14→19:55)
[2023-07-19] MEDS: CYANOCOBALAMIN (B-12) 500 MCG TABLET PO SCH (08:15)
[2023-07-19] MEDS: FUROSEMIDE 40 MG TAB PO SCH (08:15)
[2023-07-19] MEDS: ATORVASTATIN 40 MG TAB PO SCH (08:15)
[2023-07-19] MEDS: guaiFENesin 600 MG TABCR PO SCH ×2 (08:16→20:08)
[2023-07-19] MEDS: DOCUSATE SODIUM/SENNA 50/8.6MG TAB PO SCH ×2 (08:16→19:55)
[2023-07-19] MEDS: POLYETHYLENE (MIRALAX) 17 GM PACK PO SCH (08:17)
--- NOTE | 2023-07-19 08:20 | Hospitalist Progress Note ---
Date of Service July 19, 2023 Assessment & Plan (1) Hospital acquired PNA: (2) Chronic heart failure with reduced ejection fraction and diastolic dysfunction: (3) Anemia: (4) Tachy-noman syndrome: (5) Elevated troponin: (6) Ischemic cardiomyopathy: (7) HTN (hypertension): (8) Leg wound, left: (9) Multiple myeloma: (10) Type 2 diabetes mellitus: (11) CAD (coronary artery disease): (12) HLD (hyperlipidemia): (13) Pacemaker: (14) ABDI (acute kidney injury): Plan Mr. Hernandez is a 78-year-old gentleman with PMH of chronic systolic CHF, chronic ischemic heart disease, HTN, HLD, CAD s/p CABG, history of STEMI, paroxysmal A- fib, SSS s/p pacemaker, DM type II, peripheral neuropathy, GERD, CKD, multiple myeloma on Darzalex, revlimid and decadron, last treatment was on 05/25/2023 (currently being held), emphysema, interstitial lung disease, h/o opioid-induced constipation and other medical problems who presented with RAYGOZA. Interstitial lung disease Atrial fibrillation with RVR Acute on chronic systolic and diastolic CHF Symptomatic anemia Pneumonia Dyspnea on Exertion, likely multifactorial to above Pt presented with RAYGOZA -- Negative BioFire --CTA:No acute abnormality and in particular no evidence of pulmonary embolus. Airspace opacity is in the right upper lobe which may represent pneumonia. No evidence of interstitial pulmonary edema. Redemonstration of emphysema and interstitial lung disease. Cardiomegaly and pacemaker. --Repeat CXR 07/16 shows emphysema with persistent right upper lobe pneumonia, mild improvement from 07/11 --Normal procalcitonin>>Repeat 0.58 --Nasal MRSA Negative --Repeat COVID screen negative --S/P 1 unit PRBCs --Blood cultures negative to date --Sputum culture negative Saturating well on room air Status post IV Lasix, now back on PO Lasix MWF per cardiology. Patient was on empiric cefepime, changed to Zosyn. On doxycycline added 07/16 for atypical coverage. Currently only on doxycycline only. Continue mucinex bid along with saline nebs. Continue IS and flutter valve. Appreciate cardiology, ID input 2-step indicating no oxygen need at home, pt stable for discharge home with home health services. ABDI on CKD II-III renal function stable around 1.3 Avoid nephrotoxic agents as able Monitor renal function Acute on Chronic Heart Failure with reduced EF (35-40% 06/2023) due to ischemic cardiomyopathy Severe Multivessel Coronary Artery Disease s/p CABG 1993 (BISHOP-LAD, gastroepiploic to RPDA, graft to OM) Atrial fibrillation Tachy-noman syndrome s/p PPM 2019 Not a candidate for amiodarone due to lung issues Question of whether due to chemotherapeutic treatment for multiple myeloma with Darzalex faspro and Revlimid--both can increase fluid overload Diuretics as per cardiology On metoprolol succinate to 75 mg BID and digoxin On Eliquis for anticoagulation Elevated Liver enzymes Likely due to Revlimid Liver US:The liver is normal in size and echotexture. No gallstones are seen Received N-acetylcysteine Seen by GI- AIH, viral hepatitis serologies negative LFTs elevated but stable Chronic Hypotension consider decreasing metoprolol if BP continues to be an issue. Cardiology following Peripheral Arterial Disease c/b left popliteal occlusion Chronic ulceration left forefoot Appears non-infectious, signs of healing/granulation tissue, no purulence Continue Wound care Completed course of PO abx +inpatient administration of abx: cipro +2 days cefepime for Klebsiella/Enterobacter Chronic Pancytopenia Mild Neutropenia Multiple Myeloma IgA kappa with lytic bone lesions Initially dx 08/18/2021 with BM biopsy. Currently undergoing chemotherapy with Darzalex , revlimid and decadron Last received chemo 05/25: Follows with Dr. Garcia, took last dose of revlimid (possibly explaining pancytopenia), however given decline in performance status/infection, further treatment with Darzalex held Continue morphine IR 15 mg for pain, gabapentin 300 mg BID with bowel regimen Monitor CBC DM II Last A1C 6.9 Hold home agents Basal/bolus insulin while in-patient BSG AC HS Diet: Low sodium DVT Px: Eliquis Disposition: Home with HH Admission and Anticipated Discharge Date Admission Date: July 06, 2023 Subjective Pt seen this AM, was on RA. Denied SOB, chest pain. Denied acute concerns. Review of Systems Review of Systems: All systems reviewed & are unremarkable except as noted in Subjective Physical Exam Physical Exam: General: Alert, oriented. No acute distress Skin: No noted rashes or bruises Psych: Appropriate mood and affect Neuro: No gross deficits HEENT: NC/AT Chest: Nontender to palpation. CV: RRR, Normal s1, s2. Resp: Breath sounds clear bilaterally, no increased effort of breathing. Abdomen: Soft, nontender, nondistended. Extremities: No edema in lower extremities bilaterally. Results & Data Results & Data Vital Signs (Past 12 Hours) Vital Signs Temp Pulse Pulse Resp BP Pulse Ox O2 Del Method 07/19/23 07:26 61 07/19/23 07:26 Room Air 07/19/23 07:31 60 20 95 Room Air 07/19/23 02:58 36.3 C L 59 L 18 116/67 95 Room Air 07/19/23 01:43 62 07/18/23 23:05 36.3 C L 60 18 108/62 93 Room Air
[2023-07-19] MEDS: INSULIN ASPART PER UNIT CHARGE SC SCH ×4 (08:24→21:11)
[2023-07-19] MEDS: DOXYCYCLINE HYCLATE 100 MG CAP PO SCH ×2 (10:03→19:55)
--- NOTE | 2023-07-19 14:01 | Pharmacy Report ---
Pharmacy Glycemic Short Note 2 - Date of Service July 19, 2023 - Glycemic Short BSG Results (Last 24 hours): 07/18/23 07/18/23 07/19/23 16:58 20:12 05:30 Glucose 119 H POC Glucose 142 H 100 H 07/19/23 07/19/23 07:52 11:57 Glucose POC Glucose 140 H 175 H OUTPATIENT ANTIDIABETIC REGIMEN: * Lantus 40 units SC HS * Novolog 15 units SC TIDM * Liraglutide 1.2mg SC once daily * HbA1C: 6.9% (07/07/23) ASSESSMENT: 07/19: * BSGs reasonably well-controlled yesterday, ranging 100-152 mg/dL * Received 99 units of insulin (30 units of basal and 69 units of prandial/correctional bolus) * No changes to glycemic regimen anticipated for today 07/16: * Dev received 68 units of insulin yesterday of which 30 were basal * Continues on Zosyn, no other acute stressors noted * Fasting BSG acceptable, will continue 30 units of Lantus, reassess with tomorrow's fasting BSG * Mealtime BSGs elevated, tightened carbohydrate ratio further 07/15: * Dev received 83 units of insulin yesterday of which 35 were basal * He continues to received Zosyn * Fasting BSG slightly below goal, will reduce Lantus by ~20% * Lunch and HS BSGs elevated yesterday, will tighten carb coverage 07/13: * BSGs trending up over past 24 hours w/ elevated fasting BSG at 240 mg/dL * This is likely related to the acetylcysteine infusion (mixed in dextrose), which is now discontinued * Will further tighten Novolog parameters today and allow for increased basal tonight. Will need to reassess BSG trend tomorrow morning Background: * 78 year old male admitted with pneumonia. History of DM2 on insulin therapy at home. Pharmacy consulted today to assist with glycemic management while inpatient in setting of elevated prandial BSGs. * BSGs the last 24h: [phone]/dL. Received 45 units of basal insulin yesterday and 21 units of bolus insulin. * Tolerating a diet and continues on antibiotics. * Given acceptable fasting BSGs, will keep basal dose of 45 units for tonight. Based upon historic glycemic data, will tighten Novolog starting at lunch to 20/5. Goal BSG also tightened to 110-140mg/dL. PLAN FOR INPATIENT GLYCEMIC CONTROL: * Basal insulin * Lantus 30 units SC at bedtime * Bolus insulin * NovoLog per scale ACHS or Q6hrs while NPO * Goal Range: Low 110 mg/dL - High 140 mg/dL * Correction Factor: 20 mg/dL/unit * Nutritional / Prandial insulin per carb ratio of 1 unit per 3 grams CHO consumed
[2023-07-19] MEDS: DIGOXIN 0.125 MG TAB PO SCH (16:38)
[2023-07-19] MEDS: MoRPHine SULFATE IR 15 MG TAB (IMMEDIATE RELEASE) PO PRN (19:53)
[2023-07-19] MEDS: MIRTAZAPINE TAB 15 MG TAB PO SCH (19:55)
[2023-07-19] MEDS: LANTUS PER UNIT CHARGE SC SCH (21:06)
[2023-07-20 07:20] LABS: Basophils # (auto) 0.02 K/uL (0.00-0.20); Basophils % (auto) 0.3 %; Eosinophils # (auto) 0.09 K/uL (0.00-0.50); Eosinophils % (auto) 1.5 %; Hematocrit (blood only) 32.9 % (42.0-52.0); Hemoglobin 10.6 g/dl (14.0-18.0); Immature Granulocytes # (auto) 0.05 K/uL (0.01-0.20); Immature Granulocytes % (auto) 0.8 %; Lymphocytes % (auto) 13.2 %; Mean Corpuscular Hemoglobin 29.7 pg (25.0-34.0); Mean Corpuscular Hgb Conc 32.2 g/dL (32.0-36.0); Mean Corpuscular Volume 92.2 fL (80.0-100.0); Mean Platelet Volume 12.1 fL (9.4-12.4); Monocytes # (auto) 0.56 K/uL (0.11-0.59); Monocytes % (auto) 9.3 %; Neutrophils # (auto) 4.53 K/uL (1.40-6.50); Neutrophils % (auto) 74.9 %; Platelet Count 166 K/uL (130-400); RDW Coefficient of Variation 14.6 % (11.5-14.5); RDW Standard Deviation 49.3 fL (36.4-46.3); Red Blood Count 3.57 M/uL (4.70-6.10); White Blood Count 6.05 K/ul (4.8-10.8)
[2023-07-20] MEDS: SODIUM CHLOR 7% 4 ML NEB NEB SCH ×2 (07:33→14:06)
[2023-07-20 07:38] LABS: Albumin Globulin Ratio 1.3 (0.9-2); Albumin Level 3.5 gm/dl (3.4-5.0); BUN Creatinine Ratio 20.6 (10-20); Bilirubin,Total 0.5 mg/dl (0.2-1.0); Creatinine Clr Calc Pharmacy 46.9 ml/min; Est GFR (African American) 63.3 ml/min; Est GFR (Non-African American) 54.7 ml/min; Globulin 2.7 gm/dl (2.5-4.0); Magnesium 1.6 mg/dl (1.7-2.4); Phosphorus 3.4 mg/dl (2.5-4.9); Total Protein 6.2 gm/dl (6.0-8.3)
[2023-07-20] MEDS: INSULIN ASPART PER UNIT CHARGE SC SCH ×2 (08:36→12:38)
[2023-07-20] MEDS: DOXYCYCLINE HYCLATE 100 MG CAP PO SCH (08:42)
[2023-07-20] MEDS: METOPROLOL SUCC 25MG EXT REL TAB PO SCH (08:42)
[2023-07-20] MEDS: POLYETHYLENE (MIRALAX) 17 GM PACK PO SCH (08:43)
[2023-07-20] MEDS: POTASSIUM CHLORIDE CRTAB 20 MEQ TABCR PO SCH (08:43)
[2023-07-20] MEDS: CALCIUM 600MG + VIT D 400 IU TAB PO SCH (08:43)
[2023-07-20] MEDS: OMEGA-3 (PURIFIED FISH OIL) 1 GM CAP PO SCH (08:43)
[2023-07-20] MEDS: APIXABAN 5 MG TABLET PO SCH (08:43)
[2023-07-20] MEDS: DOCUSATE SODIUM/SENNA 50/8.6MG TAB PO SCH (08:43)
[2023-07-20] MEDS: PANTOprazole 40 MG TAB PO SCH (08:43)
[2023-07-20] MEDS: GABAPENTIN 300 MG CAP PO SCH (08:43)
[2023-07-20] MEDS: ATORVASTATIN 40 MG TAB PO SCH (08:43)
[2023-07-20] MEDS: guaiFENesin 600 MG TABCR PO SCH (08:44)
[2023-07-20] MEDS: CYANOCOBALAMIN (B-12) 500 MCG TABLET PO SCH (08:44)
--- NOTE | 2023-07-20 09:31 | Discharge Summary ---
Discharge Summary Date of Service July 20, 2023 Notes For Next Care Provider Ensure follow up with specialists (Oncology, Cardiology) Medication Changes From Visit Doxycycline 100mg BID for 2 more days Admission HPI Per Admitting Provider This is a 78-year-old male with PMH of chronic systolic CHF, chronic ischemic heart disease, HTN, HLD, CAD s/p CABG, history of STEMI, paroxysmal A-fib, SSS s/p pacemaker, DM type II, peripheral neuropathy, GERD, CKD, multiple myeloma on Darzalex, revlimid and decadron, last treatment was on 05/25/2023 (currently being held), emphysema, interstitial lung disease, h/o opioid-induced constipation and other medical problems who presents with worsening shortness of breath. Over the past few days, patient with significant dyspnea on exertion to the point that he is short of breath even walking to the bathroom. Can normally walk up a flight of stairs without issue. Denies any fever, chills, sore throat, congestion or known recent sick contacts. Denies any chest pain, palpitations, lightheadedness. No headache, wheezing, nausea, vomiting, abdominal pain, dysuria, diarrhea or constipation. Was recently admitted to our service from 06/25-06/30 for A-fib with RVR, chronic heart failure with reduced ejection fraction, ABDI and left foot wound. Was evaluated by cardiology during admission with 2D echo showing EF of 35 to 40% with large wall motion abnormality unchanged from previous. Was discharged on Toprol 75 mg every morning and 50 every afternoon and Lasix 40 mg MoWeFr with cardiology follow-up next week. Left foot wound grew Klebsiella and Enterobacter and was transition from Rocephin to Cipro at time of discharge and has completed all but 3 doses of antibiotic. Has been complaining wound care by changing dressing every other day with foot in Cam boot. Shortness of breath felt to be multifactorial given chronic ILD, emphysema, CAD and anemia secondary to multiple myeloma. Was seen by heme-onc yesterday and per chart review, states he did not reveive to to SOB and low BP. Last received chemotherapy regimen of Darzalex, revlimid and decadron on 05/25/23. Admission Exam Per Admitting Provider General Appearance:WD/WN, vitals as above, NAD, sitting up in bed, pleasant, conversational dyspnea Head: normocephalic, atraumatic Eyes:normal inspection, PERRL, conjunctivae normal, anicteric sclerae ENT: external ear and nose normal, oropharynx normal Neck: normal visual inspection, trachea midline, no thyromegaly Respiratory:increased respiratory effort, crackles at left lung base but otherwise clear to auscultation. No wheeze or rhonchi. No accessory muscle use Cardiovascular: iregular rate and rhythm, no murmur appreciated, normal peripheral pulses, no BLE edema. Vessels: no JVD Chest: normal inspection of chest Abdomen/GI: normal bowel sounds, soft, nontender, no hepatosplenomegaly Extremities/Musculoskeletal: no cyanosis or clubbing, extremities motor strength 5/5. + L cam boot Neurologic: PERRL, EOMI, accommodation nl, no face palsy, no dysarthria, CN's II-XI intact bilaterally and moves all extremities Psychiatric:A+Ox3, euthymic affect Skin: no rashes, normal color, warm/dry Principal Dx & Hospital Course #1 = Principal Diagnosis (1) Hospital acquired PNA: (2) Chronic heart failure with reduced ejection fraction and diastolic dysfunction: (3) Anemia: (4) Tachy-noman syndrome: (5) Elevated troponin: (6) Ischemic cardiomyopathy: (7) HTN (hypertension): (8) Leg wound, left: (9) Multiple myeloma: (10) Type 2 diabetes mellitus: (11) CAD (coronary artery disease): (12) HLD (hyperlipidemia): (13) Pacemaker: (14) ABDI (acute kidney injury): Plan Mr. Hernandez is a 78-year-old gentleman with PMH of chronic systolic CHF, chronic ischemic heart disease, HTN, HLD, CAD s/p CABG, history of STEMI, paroxysmal A- fib, SSS s/p pacemaker, DM type II, peripheral neuropathy, GERD, CKD, multiple myeloma on Darzalex, revlimid and decadron, last treatment was on 05/25/2023 (currently being held), emphysema, interstitial lung disease, h/o opioid-induced constipation and other medical problems who was admitted with dyspnea on exertion in the setting of pneumonia and CHF. Interstitial lung disease Atrial fibrillation with RVR Acute on chronic systolic and diastolic CHF Symptomatic anemia Pneumonia Dyspnea on Exertion, likely multifactorial to above Pt presented with RAYGOZA -- Negative BioFire/respiratory panel --CTA: Concerning airspace opacity noted in the right upper lobe which may represent pneumonia. Also noted emphysema, interstitial lung disease, cardiomegaly and presence of a pacemaker. --Repeat CXR 07/16 showed emphysema with persistent right upper lobe pneumonia, mild improvement from 07/11 --Normal procalcitonin>>Repeat 0.58 --Nasal MRSA Negative --Repeat COVID screen negative --S/P 1 unit PRBCs on 07/13 --Blood cultures negative to date --Sputum culture negative Saturating well on room air, did not require oxygen on discharge. Status post IV Lasix, now back on PO Lasix MWF per cardiology. Patient was on empiric cefepime, changed to Zosyn. On doxycycline added 07/16 for atypical coverage. Discharged with 2 more days of PO doxycycline for 7 day treatment. Abx treatment started on 07/06. Also treated with mucinex bid, saline nebs, flutter valve. Appreciate cardiology, ID input. 2-step indicating no oxygen need at home, pt stable for discharge home with home health services. Chronic Pancytopenia Mild Neutropenia Multiple Myeloma IgA kappa with lytic bone lesions Anemia Initially dx 08/18/2021 with BM biopsy. Currently undergoing chemotherapy with Darzalex, revlimid and decadron Last received chemo 05/25: Follows with Dr. Garcia, took last dose of revlimid (possibly explaining pancytopenia), however given decline in performance status/infection, further treatment with Darzalex held Continue morphine IR 15 mg for pain, gabapentin 300 mg BID with bowel regimen Received 1U irradiated pRBCs on 07/13/23 for symptomatic anemia. Hgb 10.6 on discharge. Continue to monitor CBC ABDI on CKD II-III renal function stable around 1.3 Avoid nephrotoxic agents as able Monitor renal function Acute on Chronic Heart Failure with reduced EF (35-40% 06/2023) due to ischemic cardiomyopathy Severe Multivessel Coronary Artery Disease s/p CABG 1993 (BISHOP-LAD, gastroepiploic to RPDA, graft to OM) Atrial fibrillation Tachy-noman syndrome s/p PPM 2019 Not a candidate for amiodarone due to lung issues Question of whether due to chemotherapeutic treatment for multiple myeloma with Darzalex and Revlimid--both can increase fluid overload Diuretics as per cardiology-PO Lasix MWF per cardiology On metoprolol succinate 75 mg BID and digoxin On Eliquis for anticoagulation Elevated Liver enzymes Likely due to Revlimid Liver US:The liver is normal in size and echotexture. No gallstones are seen Received N-acetylcysteine Seen by GI- AIH, viral hepatitis serologies negative LFTs elevated but stable Chronic Hypotension consider decreasing metoprolol if BP continues to be an issue. Cardiology following Peripheral Arterial Disease c/b left popliteal occlusion Chronic ulceration left forefoot Appears non-infectious, signs of healing/granulation tissue, no purulence Continue Wound care Completed course of PO abx +inpatient administration of abx: cipro +2 days cefepime for Klebsiella/Enterobacter DM II Last A1C 6.9 Basal/bolus insulin while in-patient Continue home medications after discharge. Discharge Exam General: Alert, oriented. No acute distress Skin: No noted rashes or bruises Psych: Appropriate mood and affect Neuro: No gross deficits HEENT: NC/AT Chest: Nontender to palpation. CV: RRR, Normal s1, s2. Resp: Breath sounds clear bilaterally, no increased effort of breathing. Abdomen: Soft, nontender, nondistended. Extremities: No edema in lower extremities bilaterally. Updated Medication List Medication Instructions Recorded Confirmed Type apixaban 5 mg tablet (Eliquis) 5 mg PO BID 06/25/20 07/06/23 History atorvastatin 40 mg tablet 40 mg PO DAILY 06/25/20 07/06/23 History liraglutide 0.6 mg/0.1 mL (18 mg/3 1.2 mg subcut DAILY 09/30/21 07/06/23 History mL) subcutaneous pen injector (Victoza 2-Jed) ondansetron 8 mg disintegrating 8 mg PO Q8H PRN Nausea 09/30/21 07/06/23 History tablet prochlorperazine maleate 10 mg 10 mg PO Q6H PRN nausea 09/30/21 07/06/23 History tablet polyethylene glycol 3350 17 gram 17 g PO DAILY PRN constipation #15 10/05/21 07/06/23 Rx oral powder packet (Miralax) ea nitroglycerin 0.4 mg sublingual 0.4 mg sublingual .Q 5 MIN PRN 11/01/21 07/06/23 History tablet Chest Pain omega-3 fatty acids 1,000 mg 1,000 mg PO BID 04/15/22 07/06/23 History capsule docusate sodium 100 mg capsule 100 mg PO BID PRN Constipation 04/22/22 07/06/23 History (Colace) gabapentin 300 mg capsule 300 mg PO AMHS 04/22/22 07/06/23 History mecobalamin (vitamin B12) 1,000 1,000 mcg PO DAILY 04/22/22 07/06/23 History mcg chewable tablet (B12 Active) morphine 15 mg immediate release 15 mg PO Q4H PRN Pain 04/22/22 07/06/23 History tablet albuterol sulfate 90 mcg/actuation 2 puff inhalation Q6H PRN 11/04/22 07/06/23 History aerosol inhaler COUGH/SHORT OF BREATH/WHEEZING calcium carbonate 600 mg-vitamin 1 tab PO BID 11/04/22 07/06/23 History D3 10 mcg (400 unit) tablet (Calcium 600 + D(3)) digoxin 125 mcg (0.125 mg) tablet 125 mcg PO Q OTHER DAY 11/04/22 07/06/23 History lenalidomide 10 mg capsule 10 mg PO DIRECTED 11/04/22 07/06/23 History (Revlimid) potassium chloride 20 mEq 20 meq PO BID 11/04/22 07/06/23 History tablet,extended release(part/cryst) sennosides 8.6 mg tablet (senna) 17.2 mg PO HS PRN Constipation 11/04/22 07/06/23 History insulin aspart U-100 100 unit/mL 15 unit subcut TIDM 12/31/22 07/06/23 History (3 mL) subcutaneous pen (Novolog FlexPen U-100 Insulin aspart) insulin glargine 100 unit/mL (3 40 unit subcut QPM 12/31/22 07/06/23 History mL) subcutaneous pen (Basaglar KwikPen U-100 Insulin) dexamethasone 4 mg tablet 20 mg PO WK 06/25/23 07/06/23 History mirtazapine 30 mg tablet 30 mg PO HS 06/25/23 07/06/23 History omeprazole 20 mg capsule,delayed 20 mg PO QAM 06/25/23 07/06/23 History release furosemide 40 mg tablet 40 mg PO MoWeFr@0900 #30 tabs 06/30/23 07/06/23 Rx metoprolol succinate 25 mg 25 mg PO UD #30 tabs 06/30/23 07/06/23 Rx tablet,extended release 24 hr metoprolol succinate 50 mg 50 mg PO UD #60 tabs 06/30/23 07/06/23 Rx tablet,extended release 24 hr (Toprol XL) doxycycline hyclate 100 mg capsule 100 mg PO BID@1000,2200 #4 caps 07/20/23 Rx Hospital Stay Data Consultations 07/06/23 17:46 ED Decision to Admit Stat 07/06/23 19:07 Consult Cardiology Routine 07/09/23 12:10 Consult Infectious Diseases Routine 07/12/23 09:39 Consult Gastroenterology Routine Diagnostic Imagining Performed 07/06/23 15:35 CT angio chest PE protocol Stat 07/07/23 08:52 US RUQ [US liver] Routine Chest X-Ray 07/06/23 13:34 XR chest 1V not portable CLINICAL HISTORY: Chest pain, nonspecific TECHNIQUE: Single frontal radiograph of the chest was obtained. Comparison: Comparison is made to chest radiograph 06/25/2023 FINDINGS: Median sternotomy wires are unchanged. Dual lead pacemaker is noted. Calcified aortic knob is seen. Right upper lung airspace opacity is seen compatible with No evidence of pleural effusion or pneumothorax. IMPRESSION: No acute chest disease. ACT 112: Negative or not required by law. Electronically signed by: Tacho Lambert M.D. 07/06/2023 2:13 PM Chest CTA 07/06/23 15:35 CT angio chest PE protocol CLINICAL HISTORY: PE TECHNIQUE: Multidetector row helical CT of the chest was performed with angiographic protocol. Coronal and sagittal reformations were obtained. Coronal and sagittal MIPS were obtained from the axial data set and were submitted for review. Automated dose lowering techniques and/or adjustment according to patient size were utilized for this exam. CT DOSE: 692.29 mGy.cm Comparison: Comparison is made to CT chest 07/05/2020 FINDINGS: Lungs and pleura: Emphysema, bronchiectasis, and interstitial thickening noted. Airspace opacity is seen at the right upper lobe. Heart and pericardium: Cardiomegaly is seen with biatrial enlargement. Implanted pacemaker is seen. Vessels: No evidence of pulmonary embolism. Mediastinum and josé: Unremarkable. Chest wall and lower neck: Unremarkable. Abdomen: Unremarkable. Bones: Degenerative changes of the thoracic spine. Old healed rib fractures are seen. IMPRESSION: 1. No acute abnormality and in particular no evidence of pulmonary embolus. 2. Airspace opacity is in the right upper lobe which may represent pneumonia. No evidence of interstitial pulmonary edema. 3. Redemonstration of emphysema and interstitial lung disease. Cardiomegaly and pacemaker. ACT 112: Negative or not required by law. Electronically signed by: Tacho Lambert M.D. 07/06/2023 5:07 PM Liver Ultrasound 07/07/23 08:52 ULTRASOUND RIGHT UPPER QUADRANT ABDOMEN CLINICAL HISTORY: Elevated hepatic transaminases. COMPARISON STUDY: Abdominal CT dated 11/04/2022. TECHNIQUE: Real-time, grayscale, and color flow sonography of the right upper quadrant of the abdomen was performed. Images are reviewed in the transverse and longitudinal planes. FINDINGS: Liver: The liver is normal in size and echotexture. There is no intrahepatic biliary ductal dilatation. The main portal vein is patent. Gallbladder: The gallbladder is mildly distended but otherwise normal in appearance. No gallstones are identified. There is no gallbladder wall thickening or pericholecystic fluid. A sonographic De Paz's sign is reportedly absent. The common bile duct measures up to 0.6 cm in diameter. Pancreas: Not visualized due to overlying bowel gas. Right kidney: Survey images of the right kidney demonstrate mild cortical atrophy. Echotexture is normal. There is mild right-sided hydronephrosis. Scattered renal cysts measuring up to 2.2 cm. Ascites: None. IMPRESSION: 1. The liver is normal in size and echotexture. 2. No gallstones are seen. 3. There is mild right-sided hydronephrosis, possibly related to bladder distention when compared to the prior abdominal CT scan. Correlate clinically. 4. Nonvisualization of the pancreas. ACT 112: Negative or not required by law. Electronically signed by: Dante Lopez M.D. 07/07/2023 5:41 PM Chest X-Ray 07/11/23 07:00 XR chest 2V PA/lateral CLINICAL HISTORY: Pneumonia. COMPARISON STUDY: Chest radiograph and chest CT July 06, 2023. FINDINGS: Left subclavian pacer, median sternotomy wires and mediastinal surgical clips are noted. Cardiomediastinal silhouette is stable. There is no evidence for pulmonary edema. There is no pneumothorax. No definite pleural effusion. Upper lobe predominant emphysema is noted. Right upper lobe consolidation has progressed. IMPRESSION: Progression of right upper lobe consolidation consistent with pneumonia. Radiographic follow up to ensure resolution is recommended. ACT 112: Negative or not required by law. Electronically signed by: Raghu Mcgowan M.D. 07/11/2023 9:11 AM Chest X-Ray 07/16/23 12:57 XR chest 1V portable HISTORY: 78 years-old Male PNA f/u. Worsening sxns. Acute shortness of breath COMPARISON: 07/11/2023 TECHNIQUE: AP view of the chest FINDINGS: Persistent right upper lobe airspace opacities, mildly improved. Cardiac silhouette is enlarged. Left subclavian pacer. Prior median sternotomy. No pneumothorax or large pleural effusion. No overt pulmonary edema. Degenerative spine. Emphysema. Chronic appearing right-sided rib fractures. No acute displaced rib fractures identified. IMPRESSION: Emphysema with persistent right upper lobe pneumonia, mildly improved from 07/11/2023. ACT 112: Negative or not required by law. The above report was generated using voice recognition software. It may contain grammatical, syntax or spelling errors. Electronically signed by: Uziel Nieto M.D. 07/16/2023 3:00 PM Discharge Instructions Given to Patient (Per Discharging Provider) Mr. Hernandez, You were admitted with trouble breathing. Your symptoms improved significantly during your stay here. We are discharging you home with 2 more days of the antibiotic doxycycline. Please continue to take it as prescribed. You do not need to use oxygen at home. Continue taking your other home medications as prescribed. We ask that you keep close follow up with Cardiology and your oncologist and primary care provider after discharge. It was a pleasure taking care of you during your time here! Total Time Total Time Spent Total Time Spent (In Minutes): >30 minutes
[2023-07-20] MEDS ORDERED: MAGNESIUM OXIDE 400 MG TAB PO ONE (09:32)
== END 2023-07-20 16:48 | disposition home health service (06) | DRG 177 ==
LOC: ED 13:26 → 4W 18:41 → SUATTDRO 18:41 → 4W 20:43

== ENCOUNTER 2023-07-28 10:14 | Observation (INO) ==
--- NOTE | 2023-07-28 10:26 | Emergency Department Note ---
Impression & Plan Non-ST elevation SD (NSTEMI), Generalized weakness ED Provider Note HISTORY OF PRESENT ILLNESS: Patient is a 78-year-old male presenting with fatigue. Patient reports that he was admitted from 07/06-07/20. He was at his outpatient clinic appointment today when he was reportedly complaining of dizziness and shortness of breath. He was noted to have hypotensive blood pressures, 94/60 and 88/60. They called 911 to transfer the patient to the ER for further evaluation. Arrival to the ER, patient reports has been feeling very rundown since his discharge. He states that he intermittently gets dizzy like he is going to pass out. He has been taking his Lasix as prescribed. Denies any chest pain or significant shortness of breath. Denies any lower extremity edema. Denies any fevers, abdominal pain, nausea or vomiting. Denies any recent sick contact exposures. ROS: as above PHYSICAL EXAM: Constitutional: Patient appears in no acute distress. HENT: Head: Normocephalic and atraumatic. Eyes: EOMI, PERRL Mouth/Throat: Mucous membranes moist. Neck: Trachea midline. Neck supple. Cardiovascular: RRR, No murmurs, rubs or gallops. Intact distal pulses. Pulmonary/Chest: No respiratory distress. Breath sounds clear and equal bilaterally. No wheezes or rales. Abdominal: Abdomen soft, no tenderness, rebound or guarding. Musculoskeletal: No edema, tenderness or deformity noted. Skin: Warm and dry. No rash, erythema, pallor or cyanosis Psychiatric: Appropriate mood and affect for situation. Neurological: Alert and keenly responsive. CN II-XII grossly intact, moving all extremities equally and fully. MDM: - Vitals signs stable. - History obtained via patient. Patient presents with fatigue. He was at her outpatient follow-up clinic appointment today for follow-up from his recent admission when he reportedly was complaining of dizziness and shortness of breath. He was noted to be hypotensive at their clinic and they called 911. On arrival to the ER, the patient reports feeling very rundown and fatigued since his discharge. He reports he intermittently gets dizzy and lightheaded when he is up moving around. Denies any chest pain or shortness of breath. Denies any fevers, abdominal pain, nausea or vomiting. - Chronic conditions affecting care: CKD; HFrEF; DM-2; CAD (s/p CABG); HLD; HTN; chronic ischemic heart disease; paroxysmal Afib; sick sinus syndrome (s/p pacemaker); multiple myeloma - Differential diagnoses include, but are not limited to: UTI; pneumonia; ACS; electrolyte abnormality - Order placed for continuous cardiac monitoring. At this time, monitor showed rate of 65 bpm with normal sinus rhythm, per my interpretation. - External medical records reviewed. Discharge summary dated 07/20/2023 was reviewed. Patient was admitted for worsening shortness of breath found to have hospital-acquired pneumonia. He is not requiring any oxygen at discharge. - EKG reviewed by myself showed normal sinus rhythm. Rate 75 bpm. QTc 439. No acute ischemic changes. - Laboratory workup interpreted by myself showed normal WBC; stable electrolyte s; CKD (Cr 1.48 - baseline around 1.3); elevated troponin (33.1); elevated BNP (465); normal procalcitonin - CXR negative for new airspace opacity, per my interpretation. - Patient's BPs remained stable in ER. His BP did drop to 95/45, but he was noted to be sleeping. - Discussion was had with social work manager about patient's case and need for admission - Hospitalist consulted for admission - Patient admitted to [facility] service for further evaluation and management. ASSESSMENT AND PLAN: Diagnosis: NSTEMI; generalized weakness Plan: admit Past Med/Surg History Medical History ABDI (acute kidney injury) CAD (coronary artery disease) CHI (closed head injury) Chronic deep vein thrombosis (DVT) Diabetic ulcer of left foot Diarrhea Hallux rigidus of left foot "S/p multiple surgeries" History of basal cell carcinoma History of melanoma in situ History of pilonidal cyst HLD (hyperlipidemia) NSTEMI (non-ST elevated myocardial infarction) Pacemaker Pneumonia Type 2 diabetes mellitus Surgical History History of bone marrow biopsy History of cataract surgery History of foot surgery S/P CABG x 4 S/P Mohs surgery for basal cell carcinoma Status post total hip replacement, left Family History Mother Lymphoma Social History Smoking Status: Never smoker Tobacco Type: Cigarettes Cigarettes Per Day: 1-2 times a month; Second Hand Exposure: Yes; Do You Dip or Chew Tobacco: No; Hx Alcohol Use: Yes Alcohol type: beer Alcohol Intake Frequency: Monthly or Less Hx Substance Use: No Preferred Language: Tajik Communication Ability: Effective Visual Impairment: No Limitations Hearing Ability: Normal 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 able to assist with care as needed. Feels Safe at Home: Yes Diet: regular Diet Comment: Trying to gain weight caffeine: No during the past year weight has: decreased > 10 lbs Assistive Devices: None Allergies Allergies Allergy/AdvReac Type Severity Reaction Status Date / Time tizanidine Allergy Unknown UNKNOWN--ON Verified 06/25/23 13:38 [facility] MED LIST Home Meds Home Medications Medication Instructions Recorded Confirmed apixaban 5 mg tablet (Eliquis) 5 mg PO BID 06/25/20 07/06/23 atorvastatin 40 mg tablet 40 mg PO DAILY 06/25/20 07/06/23 liraglutide 0.6 mg/0.1 mL (18 mg/3 1.2 mg subcut DAILY 09/30/21 07/06/23 mL) subcutaneous pen injector (Victoza 2-Jed) ondansetron 8 mg disintegrating 8 mg PO Q8H PRN Nausea 09/30/21 07/06/23 tablet prochlorperazine maleate 10 mg 10 mg PO Q6H PRN nausea 09/30/21 07/06/23 tablet nitroglycerin 0.4 mg sublingual 0.4 mg sublingual .Q 5 MIN PRN 11/01/21 07/06/23 tablet Chest Pain omega-3 fatty acids 1,000 mg 1,000 mg PO BID 04/15/22 07/06/23 capsule docusate sodium 100 mg capsule 100 mg PO BID PRN Constipation 04/22/22 07/06/23 (Colace) gabapentin 300 mg capsule 300 mg PO AMHS 04/22/22 07/06/23 mecobalamin (vitamin B12) 1,000 1,000 mcg PO DAILY 04/22/22 07/06/23 mcg chewable tablet (B12 Active) morphine 15 mg immediate release 15 mg PO Q4H PRN Pain 04/22/22 07/06/23 tablet albuterol sulfate 90 mcg/actuation 2 puff inhalation Q6H PRN 11/04/22 07/06/23 aerosol inhaler COUGH/SHORT OF BREATH/WHEEZING calcium carbonate 600 mg-vitamin 1 tab PO BID 11/04/22 07/06/23 D3 10 mcg (400 unit) tablet (Calcium 600 + D(3)) digoxin 125 mcg (0.125 mg) tablet 125 mcg PO Q OTHER DAY 11/04/22 07/06/23 lenalidomide 10 mg capsule 10 mg PO DIRECTED 11/04/22 07/06/23 (Revlimid) potassium chloride 20 mEq 20 meq PO BID 11/04/22 07/06/23 tablet,extended release(part/cryst) sennosides 8.6 mg tablet (senna) 17.2 mg PO HS PRN Constipation 11/04/22 07/06/23 insulin aspart U-100 100 unit/mL 15 unit subcut TIDM 12/31/22 07/06/23 (3 mL) subcutaneous pen (Novolog FlexPen U-100 Insulin aspart) insulin glargine 100 unit/mL (3 40 unit subcut QPM 12/31/22 07/06/23 mL) subcutaneous pen (Basaglar KwikPen U-100 Insulin) dexamethasone 4 mg tablet 20 mg PO WK 06/25/23 07/06/23 mirtazapine 30 mg tablet 30 mg PO HS 06/25/23 07/06/23 omeprazole 20 mg capsule,delayed 20 mg PO QAM 06/25/23 07/06/23 release Previous Rx's Medication Instructions Recorded polyethylene glycol 3350 17 gram 17 g PO DAILY PRN constipation #15 10/05/21 oral powder packet (Miralax) ea furosemide 40 mg tablet 40 mg PO MoWeFr@0900 #30 tabs 06/30/23 metoprolol succinate 25 mg 25 mg PO UD #30 tabs 06/30/23 tablet,extended release 24 hr metoprolol succinate 50 mg 50 mg PO UD #60 tabs 06/30/23 tablet,extended release 24 hr (Toprol XL) doxycycline hyclate 100 mg capsule 100 mg PO BID@1000,2200 #4 caps 07/20/23 Results & Data (ED) Vital Signs Vital Signs - 24 hr 07/28/23 10:26 07/28/23 10:23 07/28/23 10:23 Temperature 36.6 C Temperature Source Temporal Artery Scan Pulse Rate 63 78 Respiratory Rate 18 Respiratory Effort / Characteristics Non-Labored Respiratory Depth Normal Respiratory Pattern Regular Blood Pressure 139/62 Blood Pressure Mean 87 Pulse Oximetry 98 98 Oxygen Delivery Method Room Air Room Air Sepsis Recent Fever Within 48 Hours No Sepsis New/Unexplained Change in Mental Status N/A Sepsis Action Taken by Nursing No Action Required 07/28/23 10:07/28/23 11:40 Temperature Temperature Source Pulse Rate 60 Respiratory Rate 16 Respiratory Effort / Characteristics Respiratory Depth Respiratory Pattern Blood Pressure 110/54 L Blood Pressure Mean 72 Pulse Oximetry 98 98 Oxygen Delivery Method Room Air Room Air Sepsis Recent Fever Within 48 Hours Sepsis New/Unexplained Change in Mental Status Sepsis Action Taken by Nursing Laboratory Data 07/28/23 10:35 07/28/23 10:35 Lab Results 07/28/23 07/28/23 07/28/23 Range/Units 10:35 10:35 10:35 WBC 7.42 (4.8-10.8) K/ul RBC 3.75 L (4.70-6.10) M/uL Hgb 11.1 L (14.0-18.0) g/dl Hct 35.0 L (42.0-52.0) % MCV 93.3 (80.0-100.0) fL MCH 29.6 (25.0-34.0) pg MCHC 31.7 L (32.0-36.0) g/dL RDW Std Deviation 51.0 H (36.4-46.3) fL RDW Coeff of Collin 14.9 H (11.5-14.5) % Plt Count 203 (130-400) K/uL MPV 11.6 (9.4-12.4) fL Immature Gran % (Auto) 1.8 % Neut % (Auto) 74.1 % Lymph % (Auto) 11.7 % [place] % (Auto) 10.5 % Eos % (Auto) 1.6 % Baso % (Auto) 0.3 % Neut # (Auto) 5.50 (1.40-6.50) K/uL Lymph # (Auto) 0.87 L (1.20-3.40) K/uL [place] # (Auto) 0.78 H (0.11-0.59) K/uL Eos # (Auto) 0.12 (0.00-0.50) K/uL Baso # (Auto) 0.02 (0.00-0.20) K/uL Immature Gran # (Auto) 0.13 (0.01-0.20) K/uL Sodium 141 (136-145) mmol/L Potassium 4.1 (3.5-5.1) mmol/L Chloride 106 (98-107) mmol/L Carbon Dioxide 27 (21-32) mmol/L Anion Gap 8 (3-11) BUN 20 (6-23) mg/dl Creatinine 1.48 H (0.6-1.4) mg/dl Est Cr Clr Drug Dosing 42.2 ml/min Est GFR ( Amer) 52.1 ml/min Est GFR (Non-Af Amer) 45.0 ml/min BUN/Creatinine Ratio 13.5 (10-20) Glucose 110 H (70-99(Fasting)) mg/dl Calcium 10.1 (8.6-10.3) mg/dl Magnesium 1.9 (1.7-2.4) mg/dl Total Bilirubin 0.5 (0.2-1.0) mg/dl AST 35 (13-39) U/L ALT 45 (7-52) U/L Alkaline Phosphatase 78 (34-104) U/L Troponin I High Sens 33.1 H (0-20) pg/ml B-Natriuretic Peptide 465 H (0-100) pg/ml Total Protein 6.6 (6.0-8.3) gm/dl Albumin 4.0 (3.4-5.0) gm/dl Globulin 2.6 (2.5-4.0) gm/dl Albumin/Globulin Ratio 1.5 (0.9-2) Lipase 18 (11-82) U/L Procalcitonin (0-0.5) ng/ml 07/28/23 Range/Units 10:35 WBC (4.8-10.8) K/ul RBC (4.70-6.10) M/uL Hgb (14.0-18.0) g/dl Hct (42.0-52.0) % MCV (80.0-100.0) fL MCH (25.0-34.0) pg MCHC (32.0-36.0) g/dL RDW Std Deviation (36.4-46.3) fL RDW Coeff of Collin (11.5-14.5) % Plt Count (130-400) K/uL MPV (9.4-12.4) fL Immature Gran % (Auto) % Neut % (Auto) % Lymph % (Auto) % [place] % (Auto) % Eos % (Auto) % Baso % (Auto) % Neut # (Auto) (1.40-6.50) K/uL Lymph # (Auto) (1.20-3.40) K/uL [place] # (Auto) (0.11-0.59) K/uL Eos # (Auto) (0.00-0.50) K/uL Baso # (Auto) (0.00-0.20) K/uL Immature Gran # (Auto) (0.01-0.20) K/uL Sodium (136-145) mmol/L Potassium (3.5-5.1) mmol/L Chloride (98-107) mmol/L Carbon Dioxide (21-32) mmol/L Anion Gap (3-11) BUN (6-23) mg/dl Creatinine (0.6-1.4) mg/dl Est Cr Clr Drug Dosing ml/min Est GFR ( Amer) ml/min Est GFR (Non-Af Amer) ml/min BUN/Creatinine Ratio (10-20) Glucose (70-99(Fasting)) mg/dl Calcium (8.6-10.3) mg/dl Magnesium (1.7-2.4) mg/dl Total Bilirubin (0.2-1.0) mg/dl AST (13-39) U/L ALT (7-52) U/L Alkaline Phosphatase (34-104) U/L Troponin I High Sens (0-20) pg/ml B-Natriuretic Peptide (0-100) pg/ml Total Protein (6.0-8.3) gm/dl Albumin (3.4-5.0) gm/dl Globulin (2.5-4.0) gm/dl Albumin/Globulin Ratio (0.9-2) Lipase (11-82) U/L Procalcitonin 0.08 (0-0.5) ng/ml Imaging Data Radiologist's Impression: Chest X-Ray 07/28/23 10:23 XR chest 1V portable HISTORY: 78 years-old Male Chest pain, nonspecific COMPARISON: 07/16/2023, CTA chest 07/06/2023. TECHNIQUE: AP view of the chest FINDINGS: Cardiac silhouette is enlarged. Left subclavian pacer with sternotomy changes. Pulmonary emphysema. No pneumothorax, pleural effusion or overt pulmonary edema. There is improved aeration of the right upper lung with mild persistent ill- defined airspace opacities. Unchanged appearance of the chronic right-sided rib fractures. Degenerative changes of the shoulders and spine. IMPRESSION: Improved aeration of the right upper lobe with mild persistent airspace opacities suggestive of resolving pneumonia. One-month follow-up chest radiograph is recommended. ACT 112: Negative or not required by law. The above report was generated using voice recognition software. It may contain grammatical, syntax or spelling errors. Electronically signed by: Uziel Nieto M.D. 07/28/2023 10:49 AM Discharge Plan Visit Data Chief Complaint: Hypotension ED Provider: Maile Mendoza Discharge Problem: Non-ST elevation SD (NSTEMI), Generalized weakness Forms Stand Alone Forms: My [facility] Prescriptions Prescriptions: No Action atorvastatin 40 mg tablet 40 mg PO DAILY Eliquis 5 mg tablet 5 mg PO BID insulin glargine [Basaglar KwikPen U-100 Insulin] 100 unit/mL (3 mL) insulin pen 40 unit SUBCUT QPM omega-3 fatty acids 1,000 mg Capsule 1,000 mg PO BID sennosides [senna] 8.6 mg Tablet 17.2 mg PO HS PRN (Reason: Constipation) digoxin 125 mcg (0.125 mg) tablet 125 mcg PO Q OTHER DAY albuterol sulfate 90 mcg/actuation Hfa Aerosol Inhaler 2 puff INHALATION Q6H PRN (Reason: COUGH/SHORT OF BREATH/WHEEZING) lenalidomide [Revlimid] 10 mg capsule 10 mg PO DIRECTED Rx Instructions: TAKES FOR 21 DAYS THEN OFF FOR 7 DAYS - off right now calcium carbonate-vitamin D3 [Calcium 600 + D(3)] 600 mg-10 mcg (400 unit) Tablet 1 tab PO BID potassium chloride 20 mEq tablet,ER particles/crystals 20 meq PO BID doxycycline hyclate 100 mg Capsule 100 mg PO BID@1000,2200 Qty: 4 0RF prochlorperazine maleate 10 mg Tablet 10 mg PO Q6H PRN (Reason: nausea) ondansetron 8 mg Tablet,Disintegrating 8 mg PO Q8H PRN (Reason: Nausea) Victoza 2-Jed 0.6 mg/0.1 mL (18 mg/3 mL) Pen Injector 1.2 mg SUBCUT DAILY polyethylene glycol 3350 [Miralax] 17 gram Powder In Packet 17 g PO DAILY PRN (Reason: constipation) Qty: 15 0RF nitroglycerin 0.4 mg tablet, sublingual 0.4 mg sublingual .Q 5 MIN MDD 3 doses in 15 min PRN (Reason: Chest Pain) insulin aspart U-100 [Novolog FlexPen U-100 Insulin] 100 unit/mL (3 mL) insulin pen 15 unit SUBCUT TIDM MDD 60 UNITS Patient Comments: Uses scale to dose Rx Instructions: PLUS CORRECTION OF 1:25 OVER 150. gabapentin 300 mg capsule 300 mg PO AMHS Rx Instructions: BID PER DR 1ST docusate sodium [Colace] 100 mg capsule 100 mg PO BID PRN (Reason: Constipation) morphine 15 mg tablet 15 mg PO Q4H PRN (Reason: Pain) mecobalamin (vitamin B12) [B12 Active] 1,000 mcg Tablet,Chewable 1,000 mcg PO DAILY dexamethasone 4 mg tablet 20 mg PO WK Rx Instructions: Tuesdays, chemotherapy on hold mirtazapine 30 mg tablet 30 mg PO HS omeprazole 20 mg capsule,delayed release(DR/EC) 20 mg PO QAM furosemide 40 mg Tablet 40 mg PO MoWeFr@0900 Qty: 30 0RF Rx Instructions: on Wednesday, Wednesday and Wednesday only metoprolol succinate 25 mg tablet extended release 24 hr 25 mg PO UD Qty: 30 1RF Rx Instructions: Take Metoprolol 75mg QAM and 50mg QPM metoprolol succinate [Toprol XL] 50 mg tablet extended release 24 hr 50 mg PO UD Qty: 60 0RF Rx Instructions: Take Metoprolol 75mg QAM and 50mg QPM Referrals Referrals: Landen Macario, [Primary Care Provider] -
--- NOTE | 2023-07-28 10:50 | XRay Report ---
XR chest 1V portable HISTORY: 78 years-old Male Chest pain, nonspecific COMPARISON: 07/16/2023, CTA chest 07/06/2023. TECHNIQUE: AP view of the chest FINDINGS: Cardiac silhouette is enlarged. Left subclavian pacer with sternotomy changes. Pulmonary emphysema. N o pneumothorax, pleural effusion or overt pulmonary edema. There is improved aeration of the right up per lung with mild persistent ill-defined airspace opacities. Unchanged appearance of the chronic rig ht-sided rib fractures. Degenerative changes of the shoulders and spine. IMPRESSION: Improved aeration of the right upper lobe with mild persistent airspace opacities suggest mel of resolving pneumonia. One-month follow-up chest radiograph is recommended. ACT 112: Negative or not required by law. The above report was generated using voice recognition software. It may contain grammatical, syntax o r spelling errors. Electronically signed by: Uziel Nieto M.D. 07/28/2023 10:49 AM
[2023-07-28 10:56] LABS: Basophils # (auto) 0.02 K/uL (0.00-0.20); Basophils % (auto) 0.3 %; Eosinophils # (auto) 0.12 K/uL (0.00-0.50); Eosinophils % (auto) 1.6 %; Hemoglobin 11.1 g/dl (14.0-18.0); Immature Granulocytes # (auto) 0.13 K/uL (0.01-0.20); Immature Granulocytes % (auto) 1.8 %; Lymphocytes # (auto) 0.87 K/uL (1.20-3.40); Lymphocytes % (auto) 11.7 %; Mean Corpuscular Hemoglobin 29.6 pg (25.0-34.0); Mean Corpuscular Hgb Conc 31.7 g/dL (32.0-36.0); Mean Corpuscular Volume 93.3 fL (80.0-100.0); Mean Platelet Volume 11.6 fL (9.4-12.4); Monocytes # (auto) 0.78 K/uL (0.11-0.59); Monocytes % (auto) 10.5 %; Neutrophils % (auto) 74.1 %; Platelet Count 203 K/uL (130-400); RDW Coefficient of Variation 14.9 % (11.5-14.5); Red Blood Count 3.75 M/uL (4.70-6.10); White Blood Count 7.42 K/ul (4.8-10.8)
[2023-07-28 11:13] LABS: Albumin Globulin Ratio 1.5 (0.9-2); BUN Creatinine Ratio 13.5 (10-20); Bilirubin,Total 0.5 mg/dl (0.2-1.0); Calcium 10.1 mg/dl (8.6-10.3); Creatinine Clr Calc Pharmacy 42.2 ml/min; Est GFR (African American) 52.1 ml/min; Globulin 2.6 gm/dl (2.5-4.0); Magnesium 1.9 mg/dl (1.7-2.4); Potassium 4.1 mmol/L (3.5-5.1); Total Protein 6.6 gm/dl (6.0-8.3)
[2023-07-28 11:18] LABS: Troponin I High Sensitivity 33.1 pg/ml (0-20)
--- NOTE | 2023-07-28 12:38 | History & Physical Report ---
Date of Service July 28, 2023 Assessment & Plan (1) Hypotension: (2) Elevated troponin: (3) Chronic heart failure with reduced ejection fraction and diastolic dysfunction: (4) PAF (paroxysmal atrial fibrillation): (5) Ischemic cardiomyopathy: (6) CAD (coronary artery disease): (7) Diabetic peripheral neuropathy associated with type 2 diabetes mellitus: (8) Type 2 diabetes mellitus: (9) Interstitial lung disease: (10) HTN (hypertension): (11) HLD (hyperlipidemia): (12) Multiple myeloma: Plan: This is a 78-year-old male with PMH of chronic systolic CHF, chronic ischemic heart disease, HTN, HLD, CAD s/p CABG, history of STEMI, paroxysmal A-fib, SSS s/p pacemaker, DM type II, peripheral neuropathy, GERD, CKD, multiple myeloma with last treatment on 05/25/2023 (currently being on hold), emphysema, interstitial lung disease, h/o opioid-induced constipation and others listed below presented to ER with c/o low blood pressure and dizziness with position change. Hypotension Suspect orthostatic hypotension Hypotension noted outpatient clinic today In ER BP 110/54, 98/56. History orthostatic hypotension in past Obtain orthostatics Likely secondary to medications Will hold Lasix currently. Closely monitor I&O's, daily weights, vitals to further adjust meds Elevated troponin HS troponin: 33-->28.8-->28.[address] changes No CP Chronic elevated troponin. Do not suspect ACS History Atrial fibrillation Anticoagulated on Eliquis Continue Eliquis Continue metoprolol succinate, digoxin Not candidate for amiodarone in past Chronic systolic HF 06/25/2023 echo: EF: 35-40%, large wall motion abnormality, aortic valve sclerosis without significant stenosis, moderate MR Will hold lasix with soft BP's and continue to monitor Cardiology consult for assistance with med recommendations CKD Cr: 1.48. Recent baseline ~1.3 Continue to monitor, avoid nephrotoxic agents when able Left Foot Wound infection Present on arrival Chronic, following with the wound clinic Pressure offloading with [facility] boot Wound care nurse consulted History of CAD History ischemic cardiomyopathy S/P CABG Continue metoprolol succinate Troponins as above Chronic Interstitial lung disease Emphysema Saturating well on room air, no wheezing on exam Continue outpatient pulmonology follow up SSS s/p pacemaker Multiple Myeloma IgA kappa with lytic bone lesions Initially dx 08/18/2021 with BM biopsy. Recent chemotherapy with Darzalex , Revlimid and Decadron Last treatment 05/2023 Continue morphine IR 15 mg for pain, gabapentin 300 mg BID with bowel regimen Continue oncology follow up Recent outpatient palliative consult placed DM II A1C was 6.9 on 07/07/23 Hold home agents Basal/bolus insulin while in-patient DVT Prophylaxis On Eliquis DNR/DNI as per discussion with pt Follows with Dr Landen Macario for routine care Pt was seen and care coordinated with Dr Waggoner. See addendum History of Present Illness Chief Complaint: low blood pressure Primary Care Provider: Landen Macario DO This is a 78-year-old male with PMH of chronic systolic CHF, chronic ischemic heart disease, HTN, HLD, CAD s/p CABG, history of STEMI, paroxysmal A-fib, SSS s/p pacemaker, DM type II, peripheral neuropathy, GERD, CKD, multiple myeloma with last treatment on 05/25/2023 (currently being on hold), emphysema, interstitial lung disease, h/o opioid-induced constipation and others listed below presented to ER with c/o low blood pressure. History obtained from patient, patient's significant other, inpatient and outpatient chart review. History of recurrent hospitalizations in 06/2023. Hospitalization 07/06/2023- for dyspnea on exertion, pneumonia, acute on chronic heart failure, atrial fibrillation RVR. Initially treated with cefepime and was changed to Zosyn, doxycycline. Discharged on 2 additional days of doxycycline to complete 7-day treatment. Received 1 unit PRBCs for symptomatic anemia and Hgb was 10.6 on discharge. Discharged on Metoprolol succinate 75 mg am and 50mg PM as well as Lasix MWF. Patient was seen in outpatient cardiology clinic today and was found to be hypotensive and was sent to ER via EMS. Patient states has had lethargy and fatigue since starting treatment for multiple myeloma. He states he feels "has not bounced back" yet. Significant other reports patient is very fatigued and sleeping most of the day. Last several days has been having dizziness/lightheadedness with standing. Has not been ambulating much secondary to fatigue as well as lightheadedness with ambulation. Has been using a walker at home. Denies any falls. Denies syncope. Also reports decreased appetite. States patient is however eating and drinks approximately 90 ounces of water daily. Patient feels his exertional shortness of breath is at baseline. Significant other feels that it may be worse than baseline. Patient is not complaining of any shortness of breath currently. Last BM yesterday. C/O ongoing posterior neck pain that has been present for months. Uses heating pad at home with some relief. Denies any known injury. Denies fever/chills, diaphoresis, N/V/D, SANCHEZ, vision changes, CP, palpitations, cough, sore throat, choking, otalgia, rhinorrhea, abdominal pain, paresthesias, extremity edema, rashes, urinary symptoms. Allergies Allergy/AdvReac Type Severity Reaction Status Date / Time tizanidine Allergy Unknown UNKNOWN--ON Verified 06/25/23 13:38 [facility] [place] MED LIST Home Medications Medication Instructions Recorded Confirmed Type apixaban 5 mg tablet (Eliquis) 5 mg PO BID 06/25/20 07/28/23 History atorvastatin 40 mg tablet 40 mg PO DAILY 06/25/20 07/28/23 History liraglutide 0.6 mg/0.1 mL (18 mg/3 1.2 mg subcut DAILY 09/30/21 07/28/23 History mL) subcutaneous pen injector (Victoza 2-Jed) ondansetron 8 mg disintegrating 8 mg PO Q8H PRN Nausea 09/30/21 07/28/23 History tablet prochlorperazine maleate 10 mg 10 mg PO Q6H PRN nausea 09/30/21 07/28/23 History tablet polyethylene glycol 3350 17 gram 17 g PO DAILY PRN constipation #15 10/05/21 07/28/23 Rx oral powder packet (Miralax) ea nitroglycerin 0.4 mg sublingual 0.4 mg sublingual .Q 5 MIN PRN 11/01/21 07/28/23 History tablet Chest Pain omega-3 fatty acids 1,000 mg 1,000 mg PO BID 04/15/22 07/28/23 History capsule docusate sodium 100 mg capsule 100 mg PO BID PRN Constipation 04/22/22 07/28/23 History (Colace) gabapentin 300 mg capsule 300 mg PO AMHS 04/22/22 07/28/23 History mecobalamin (vitamin B12) 1,000 1,000 mcg PO DAILY 04/22/22 07/28/23 History mcg chewable tablet (B12 Active) morphine 15 mg immediate release 15 mg PO Q4H PRN Pain 04/22/22 07/28/23 History tablet albuterol sulfate 90 mcg/actuation 2 puff inhalation Q6H PRN 11/04/22 07/28/23 History aerosol inhaler COUGH/SHORT OF BREATH/WHEEZING calcium carbonate 600 mg-vitamin 1 tab PO BID 11/04/22 07/28/23 History D3 10 mcg (400 unit) tablet (Calcium 600 + D(3)) digoxin 125 mcg (0.125 mg) tablet 125 mcg PO Q OTHER DAY 11/04/22 07/28/23 History lenalidomide 10 mg capsule 10 mg PO DIRECTED 11/04/22 07/28/23 History (Revlimid) potassium chloride 20 mEq 20 meq PO BID 11/04/22 07/28/23 History tablet,extended release(part/cryst) sennosides 8.6 mg tablet (senna) 17.2 mg PO HS PRN Constipation 11/04/22 07/28/23 History insulin aspart U-100 100 unit/mL 15 unit subcut TIDM 12/31/22 07/28/23 History (3 mL) subcutaneous pen (Novolog FlexPen U-100 Insulin aspart) insulin glargine 100 unit/mL (3 45 unit subcut QPM 12/31/22 07/28/23 History mL) subcutaneous pen (Basaglar KwikPen U-100 Insulin) dexamethasone 4 mg tablet 20 mg PO WK 06/25/23 07/28/23 History mirtazapine 30 mg tablet 30 mg PO HS 06/25/23 07/28/23 History omeprazole 20 mg capsule,delayed 20 mg PO QAM 06/25/23 07/28/23 History release furosemide 40 mg tablet 40 mg PO MoWeFr@0900 #30 tabs 06/30/23 07/28/23 Rx metoprolol succinate 25 mg 25 mg PO UD #30 tabs 06/30/23 07/28/23 Rx tablet,extended release 24 hr metoprolol succinate 50 mg 50 mg PO UD #60 tabs 06/30/23 07/28/23 Rx tablet,extended release 24 hr (Toprol XL) linaclotide 145 mcg capsule 145 mcg PO DAILY 07/28/23 07/28/23 History (Linzess) Past Med/Surg History Medical History (Updated 07/28/23 @ 15:17 by Floridalma Casey PA-C) ABDI (acute kidney injury) CAD (coronary artery disease) CHI (closed head injury) Chronic deep vein thrombosis (DVT) Diabetic ulcer of left foot Diarrhea Hallux rigidus of left foot "S/p multiple surgeries" History of basal cell carcinoma History of melanoma in situ History of pilonidal cyst HLD (hyperlipidemia) Interstitial lung disease NSTEMI (non-ST elevated myocardial infarction) Pacemaker PAF (paroxysmal atrial fibrillation) Pneumonia Type 2 diabetes mellitus Surgical History History of bone marrow biopsy History of cataract surgery History of foot surgery S/P CABG x 4 S/P Mohs surgery for basal cell carcinoma Status post total hip replacement, left Family History Mother Lymphoma Social History Smoking Status: Never smoker Tobacco Type: Cigarettes Cigarettes Per Day: 1-2 times a month; Second Hand Exposure: Yes; Do You Dip or Chew Tobacco: No; Hx Alcohol Use: Yes Alcohol type: beer Alcohol Intake Frequency: Monthly or Less Hx Substance Use: No Preferred Language: Urdu Communication Ability: Effective Visual Impairment: No Limitations Hearing Ability: Normal Bombsight Specialist Required: No Beliefs That Will Affect Care: None marital status: Current Living Situation: Spouse Current Living Situation Comment: home current occupational status: retired How many Children do You have: 1 How many Children do You have Comment: Magi lives in [facility]. able to assist with care as needed. Feels Safe at Home: Yes Diet: regular Diet Comment: Trying to gain weight caffeine: No during the past year weight has: decreased > 10 lbs Assistive Devices: None Review of Systems Review of Systems: All systems reviewed & are unremarkable except as noted in HPI & below Physical Exam Physical Exam: General: no acute distress, chronic ill appearing elderly male, WDWN Head: normocephalic, atraumatic Eyes: conjunctiva non-injected, anicteric ENT: normal inspection external ears, nose, mucous membranes moist Neck: supple, trachea midline Lungs: clear, no respiratory distress, no wheezing/rhonchi/rales CV: irregular, rate 68, + murmur, no pretibial edema Abd: normal BS, soft, non-tender Ext: no cyanosis, no calf tenderness Neuro: A&O x 3, no focal deficits noted, normal affect Skin: warm, dry. Left foot: +wound plantar surface distal foot without surrounding erythema or edema and no discharge Results & Data Results & Data Vital Signs (Past 12 Hours) Vital Signs Temp Pulse Resp BP Pulse Ox O2 Del Method 07/28/23 11:40 60 16 110/54 L 98 Room Air 07/28/23 10:23 98 Room Air 07/28/23 10:23 98 Room Air 07/28/23 10: 36.6 C 78 18 139/62 98 Room Air 07/28/23 10:26 63 Laboratory Results Short CBC 07/28/23 Range/Units 10:35 WBC 7.42 (4.8-10.8) K/ul Hgb 11.1 L (14.0-18.0) g/dl Hct 35.0 L (42.0-52.0) % Plt Count 203 (130-400) K/uL BMP 07/28/23 10:35 Sodium 141 Potassium 4.1 Chloride 106 Carbon Dioxide 27 BUN 20 Creatinine 1.48 H Glucose 110 H Calcium 10.1 Liver Function 07/28/23 Range/Units 10:35 Total Bilirubin 0.5 (0.2-1.0) mg/dl AST 35 (13-39) U/L ALT 45 (7-52) U/L Alkaline Phosphatase 78 (34-104) U/L Albumin 4.0 (3.4-5.0) gm/dl Diagnostic Findings Chest X-Ray 07/28/23 10:23 XR chest 1V portable HISTORY: 78 years-old Male Chest pain, nonspecific COMPARISON: 07/16/2023, CTA chest 07/06/2023. TECHNIQUE: AP view of the chest FINDINGS: Cardiac silhouette is enlarged. Left subclavian pacer with sternotomy changes. Pulmonary emphysema. No pneumothorax, pleural effusion or overt pulmonary edema. There is improved aeration of the right upper lung with mild persistent ill- defined airspace opacities. Unchanged appearance of the chronic right-sided rib fractures. Degenerative changes of the shoulders and spine. IMPRESSION: Improved aeration of the right upper lobe with mild persistent airspace opacities suggestive of resolving pneumonia. One-month follow-up chest radiograph is recommended. ACT 112: Negative or not required by law. The above report was generated using voice recognition software. It may contain grammatical, syntax or spelling errors. Electronically signed by: Uziel Nieto M.D. 07/28/2023 10:49 AM Supervising Physician Co-Signing Physician Notes I have seen and discussed the case with the collaborating PAChazC. I agree with the above H&P. I have reviewed and confirmed the patients medical history, the findings on physical examination, and the patients diagnosis and [facility] and agree with the information documented. In short, Mr. Hernandez is a 78 year old gentleman with complex medical history notable for ILD, HFrEF, MM who is admitted for dizziness and weakness. Patient with recent admission for progressive RAYGOZA, with discharged on 07/20. Patient describes symptoms consistent with orthostasis and notes compliance with lasix MWF and metoprolol XL 75 qam/50qpm. VS trend with hypotension prior to discharge, as well as upon presentation 07/28. Labs unremarkable. Physical exam with dry cough (similar from prior admission, coarse breath sounds, but no crackles, no edema, and healing ulcer on left forefoot. Plan for orthostatic vital signs and PT/OT. Monitor on tele. Cardiology consult to discuss further titration/optimization of medications. Rest of plan as above. (1) Hypotension Hypotension type: unspecified hypotension type Qualified Code(s): I95.9 - Hypotension, unspecified
--- NOTE | 2023-07-28 16:13 | Cardiology Consultation ---
Date of Consultation July 28, 2023 Assessment & Plan (1) Orthostatic hypotension: (2) Ischemic cardiomyopathy: (3) Chronic heart failure with reduced ejection fraction and diastolic dysfunction: (4) Tachy-abhay syndrome: (5) PAF (paroxysmal atrial fibrillation): Plan Impression: Medically complex 78-year-old male with history of ischemic cardiomyopathy admitted for significant symptomatic orthostatic hypotension. Blood pressures improving since admission. Lasix on hold (normally maintained on 40 mg Wednesday only at home) Not on any antihypertensive medications. Telemetry without concerning findings, sinus rhythm/paced in the 60s. HS troponin mildly elevated but flat-- no evidence of ACS. Plan: Orthostatic hypotension--cause likely multifactorial with underlying comorbidities with a component of hypovolemia Agree with holding diuretics at this time. Orthostatic VS Tachybradycardia syndrome/paroxysmal atrial fibrillation, status post permanent pacemaker: Heart rates controlled on telemetry Continue metoprolol succinate 50 mg twice daily Continue Eliquis 5 mg twice daily for stroke prevention. Case discussed with Dr. Lin. We will monitor on telemetry overnight. Supervising Physician Co-Signing Physician Notes Patient seen and personally examined. Assessment as above. Recent hospitalization with pneumonia mild diastolic heart failure now with symptoms of dizziness and orthostatic hypotension. Agree with plan of holding diuretics continue metoprolol and Eliquis We will follow in hospital The chest x-ray improving from last hospital stay No evidence of congestive heart failure on physical exam History of Present Illness Reason for Consultation: Hypotension, Chronic HFrEF Requesting Physician: Maddy reynolds History of Present Illness Medically complex 78-year-old male with a past medical history significant for ischemic cardiomyopathy ( LVEF of 35 to 40%), paroxysmal atrial fibrillation/tachybradycardia syndrome status post permanent pacemaker, and multiple myeloma with lytic bone lesions who was referred to the [facility] emergency department today after being evaluated by Cyril Johns PA-C in our outpatient clinic this afternoon. Patient had concerns regarding generalized fatigue and profound weakness. Mentions that the patient has not been eating or drinking well. Blood pressure was approximately 58 systolic--EMS called. Blood pressures in the emergency department are soft with a reading of 98/56. Lasix held. High-sensitivity troponins mildly elevated but flat. EKG without acute ST segment changes. Hemoglobin stable, mild renal dysfunction noted with a serum creatinine of 1.48 Primary outpatient chaser tar: Dr. Lane Past Medical History: 1.Atherosclerotic coronary disease, status post coronary bypass grafting 1993, receiving a BISHOP to LAD, gastroepiploic artery to right PDA, and left radial arterial graft to OM branch vessel. 2.Class 3 angina pectoris. 3. Atherosclerotic peripheral vascular disease with claudication- follows with vascular surgery--Known left popliteal occlusion which would require bypass per most recent vascular surgical note 08/2016 4. Chronic systolic CHF 5.Paroxysmal atrial fibrillation 6.Tachy-Abhay Syndrome status post permanent pacemaker implantation April 23, 2020. 7.Hypertension 8.Hyperlipidemia 9.Diabetes mellitus with neuropathy 10.Multiple myeloma, IgA kappa with lytic bone lesions- follows with Hematology 11.Centrilobular emphysema. 12.Chronic interstitial lung disease 13.GERD Allergies Allergy/AdvReac Type Severity Reaction Status Date / Time tizanidine Allergy Unknown UNKNOWN--ON Verified 06/25/23 13:38 [facility] MED LIST Home Medications Medication Instructions Recorded Confirmed Type apixaban 5 mg tablet (Eliquis) 5 mg PO BID 06/25/20 07/28/23 History atorvastatin 40 mg tablet 40 mg PO DAILY 06/25/20 07/28/23 History liraglutide 0.6 mg/0.1 mL (18 mg/3 1.2 mg subcut DAILY 09/30/21 07/28/23 History mL) subcutaneous pen injector (Victoza 2-Jed) ondansetron 8 mg disintegrating 8 mg PO Q8H PRN Nausea 09/30/21 07/28/23 History tablet prochlorperazine maleate 10 mg 10 mg PO Q6H PRN nausea 09/30/21 07/28/23 History tablet polyethylene glycol 3350 17 gram 17 g PO DAILY PRN constipation #15 10/05/21 07/28/23 Rx oral powder packet (Miralax) ea nitroglycerin 0.4 mg sublingual 0.4 mg sublingual .Q 5 MIN PRN 11/01/21 07/28/23 History tablet Chest Pain omega-3 fatty acids 1,000 mg 1,000 mg PO BID 04/15/22 07/28/23 History capsule docusate sodium 100 mg capsule 100 mg PO BID PRN Constipation 04/22/22 07/28/23 History (Colace) gabapentin 300 mg capsule 300 mg PO AMHS 04/22/22 07/28/23 History mecobalamin (vitamin B12) 1,000 1,000 mcg PO DAILY 04/22/22 07/28/23 History mcg chewable tablet (B12 Active) morphine 15 mg immediate release 15 mg PO Q4H PRN Pain 04/22/22 07/28/23 History tablet albuterol sulfate 90 mcg/actuation 2 puff inhalation Q6H PRN 11/04/22 07/28/23 History aerosol inhaler COUGH/SHORT OF BREATH/WHEEZING calcium carbonate 600 mg-vitamin 1 tab PO BID 11/04/22 07/28/23 History D3 10 mcg (400 unit) tablet (Calcium 600 + D(3)) digoxin 125 mcg (0.125 mg) tablet 125 mcg PO Q OTHER DAY 11/04/22 07/28/23 History lenalidomide 10 mg capsule 10 mg PO DIRECTED 11/04/22 07/28/23 History (Revlimid) potassium chloride 20 mEq 20 meq PO BID 11/04/22 07/28/23 History tablet,extended release(part/cryst) sennosides 8.6 mg tablet (senna) 17.2 mg PO HS PRN Constipation 11/04/22 07/28/23 History insulin aspart U-100 100 unit/mL 15 unit subcut TIDM 12/31/22 07/28/23 History (3 mL) subcutaneous pen (Novolog FlexPen U-100 Insulin aspart) insulin glargine 100 unit/mL (3 45 unit subcut QPM 12/31/22 07/28/23 History mL) subcutaneous pen (Basaglar KwikPen U-100 Insulin) dexamethasone 4 mg tablet 20 mg PO WK 06/25/23 07/28/23 History mirtazapine 30 mg tablet 30 mg PO HS 06/25/23 07/28/23 History omeprazole 20 mg capsule,delayed 20 mg PO QAM 06/25/23 07/28/23 History release furosemide 40 mg tablet 40 mg PO MoWeFr@0900 #30 tabs 06/30/23 07/28/23 Rx metoprolol succinate 25 mg 25 mg PO UD #30 tabs 06/30/23 07/28/23 Rx tablet,extended release 24 hr metoprolol succinate 50 mg 50 mg PO UD #60 tabs 06/30/23 07/28/23 Rx tablet,extended release 24 hr (Toprol XL) linaclotide 145 mcg capsule 145 mcg PO DAILY 07/28/23 07/28/23 History (Linzess) Patient History Medical History (Updated 07/28/23 @ 16:30 by MADISON Weinberg) ABDI (acute kidney injury) CAD (coronary artery disease) CHI (closed head injury) Chronic deep vein thrombosis (DVT) Diabetic ulcer of left foot Diarrhea Hallux rigidus of left foot "S/p multiple surgeries" History of basal cell carcinoma History of melanoma in situ History of pilonidal cyst HLD (hyperlipidemia) Interstitial lung disease NSTEMI (non-ST elevated myocardial infarction) Pacemaker PAF (paroxysmal atrial fibrillation) Pneumonia Type 2 diabetes mellitus Surgical History History of bone marrow biopsy History of cataract surgery History of foot surgery S/P CABG x 4 S/P Mohs surgery for basal cell carcinoma Status post total hip replacement, left Family History Mother Lymphoma Social History Smoking Status: Former smoker Tobacco Type: Cigarettes Second Hand Exposure: Yes; Hx Alcohol Use: No Hx Substance Use: No Preferred Language: German Communication Ability: Effective Visual Impairment: No Limitations Hearing Ability: Normal Gas Plumbing Inspector Required: No Beliefs That Will Affect Care: None marital status: Current Living Situation: Spouse Current Living Situation Comment: home current occupational status: retired How many Children do You have: 1 How many Children do You have Comment: Magi lives in [facility]. ab le to assist with care as needed. Other Information That Helps Us Care for You: No Feels Safe at Home: Yes Safety Concerns: Feels Safe At This Time Diet: regular Diet Comment: Trying to gain weight caffeine: No during the past year weight has: decreased > 10 lbs Assistive Devices: Cane Assistive Devices Comment: uses cane most of the time Review of Systems Review of Systems: All systems reviewed & are unremarkable except as noted in HPI & below Physical Exam Constitutional: WD/WN, vitals as above + ill appearing; no acute distress Eyes: PERRL, conjunctivae normal, anicteric sclerae ENMT: external ear and nose normal, oropharynx normal Neck: normal visual inspection and trachea midline Respiratory: normal respiratory effort, lungs clear to auscultation Cardiovascular: RRR, no murmur, no edema Heart Sounds: normal S1 and normal S2 Vessels: no JVD Extremities: no edema Gastrointestinal (Abdomen): normal bowel sounds, soft, nontender, no hepatosplenomegaly Skin: no rashes, warm and dry Psychiatric: A+Ox3, euthymic affect Results & Data Vital Signs (Past 12 Hours) Vital Signs Temp Pulse Resp BP Pulse Ox O2 Del Method 07/28/23 15:00 62 14 105/59 L 97 Room Air 07/28/23 14:00 69 20 113/67 98 Room Air 07/28/23 13:31 68 17 107/55 L 97 Room Air 07/28/23 14:14 70 07/28/23 11:40 60 16 110/54 L 98 Room Air 07/28/23 10:23 98 Room Air 07/28/23 10:23 98 Room Air 07/28/23 10:23 36.6 C 78 18 139/62 98 Room Air 07/28/23 10:26 63 Laboratory Results Cardiac Enzymes 07/28/23 07/28/23 07/28/23 Range/Units 10:35 10:35 12:11 AST 35 (13-39) U/L Troponin I High Sens 33.1 H 28.8 H (0-20) pg/ml B-Natriuretic Peptide 465 H (0-100) pg/ml 07/28/23 Range/Units 14:22 AST (13-39) U/L Troponin I High Sens 28.7 H (0-20) pg/ml B-Natriuretic Peptide (0-100) pg/ml Coagulation 07/28/23 Range/Units 10:35 B-Natriuretic Peptide 465 H (0-100) pg/ml CBC 07/28/23 Range/Units 10:35 WBC 7.42 (4.8-10.8) K/ul RBC 3.75 L (4.70-6.10) M/uL Hgb 11.1 L (14.0-18.0) g/dl Hct 35.0 L (42.0-52.0) % Plt Count 203 (130-400) K/uL Neut # (Auto) 5.50 (1.40-6.50) K/uL Lymph # (Auto) 0.87 L (1.20-3.40) K/uL Mcclain # (Auto) 0.78 H (0.11-0.59) K/uL Eos # (Auto) 0.12 (0.00-0.50) K/uL Baso # (Auto) 0.02 (0.00-0.20) K/uL Comprehensive Metabolic Panel 07/28/23 Range/Units 10:35 Sodium 141 (136-145) mmol/L Potassium 4.1 (3.5-5.1) mmol/L Chloride 106 (98-107) mmol/L Carbon Dioxide 27 (21-32) mmol/L BUN 20 (6-23) mg/dl Creatinine 1.48 H (0.6-1.4) mg/dl Glucose 110 H (70-99(Fasting)) mg/dl Calcium 10.1 (8.6-10.3) mg/dl AST 35 (13-39) U/L ALT 45 (7-52) U/L Alkaline Phosphatase 78 (34-104) U/L Total Protein 6.6 (6.0-8.3) gm/dl Albumin 4.0 (3.4-5.0) gm/dl Intake and Output 07/28/23 07/28/23 07/28/23 06:59 14:59 22:59 Other: Weight 71.3 kg Weight Measurement Method Built in [facility] Patient Weight 07/29/23 06:59 Weight 71.3 kg
--- NOTE | 2023-07-28 16:27 | Electrocardiogram Report ---
Test Reason : Blood Pressure : / mmHG Vent. Rate : 075 BPM Atrial Rate : 075 BPM P-R Int : 198 ms QRS Dur : 088 ms QT Int : 394 ms P-R-T Axes : 072 081 033 degrees QTc Int : 439 ms Normal sinus rhythm Nonspecific ST abnormality Abnormal ECG When compared with ECG of 16-JUL-2023 06:36, Sinus rhythm has replaced Atrial fibrillation ST no longer depressed in Anterior leads Confirmed by Dutch Dela Cruz ([id number]) on 07/28/2023 4:27:28 PM Referred By: REFERRED SELF Confirmed By:Dutch Dela Cruz
[2023-07-28] MEDS ORDERED: MoRPHine SULFATE IR 15 MG TAB (IMMEDIATE RELEASE) PO PRN (19:47)
[2023-07-28] MEDS ORDERED: MAGNESIUM HYDROXIDE SUSP 30 ML UDC PO PRN (19:47)
[2023-07-28] MEDS ORDERED: GLUCAGON FOR INJ 1 MG VIAL SQ PRN (19:47)
[2023-07-28] MEDS ORDERED: DOCUSATE SODIUM 100 MG CAP PO PRN (19:47)
[2023-07-28] MEDS ORDERED: ALBUTEROL HFA 8 GM INHALER INH PRN (19:47)
[2023-07-28] MEDS ORDERED: SENNA 8.6 MG TAB PO PRN (19:47)
[2023-07-28] MEDS ORDERED: ACETAMINOPHEN 325 MG TAB PO PRN (19:47)
[2023-07-28] MEDS ORDERED: POLYETHYLENE (MIRALAX) 17 GM PACK PO PRN (19:47)
[2023-07-28] MEDS ORDERED: CARBOHYDRATES FOR HYPOGLYCEMIA PO PRN (19:47)
[2023-07-28] MEDS ORDERED: GLUCOSE 40% GEL 15 GM TUBE PO PRN (19:47)
[2023-07-28] MEDS ORDERED: DEXTROSE 50% 50 ML SYRINGE IV PRN (19:47)
[2023-07-28] MEDS ORDERED: GLUCOSE 10 TAB/TUBE PO PRN (19:47)
[2023-07-28] MEDS ORDERED: ONDANSETRON INJ 2 MG/ML 2 ML VIAL IV PRN (19:47)
[2023-07-28] MEDS ORDERED: MIRTAZAPINE TAB 15 MG TAB PO SCH (21:00)
[2023-07-28] MEDS: POTASSIUM CHLORIDE CRTAB 20 MEQ TABCR PO SCH (21:28)
[2023-07-28] MEDS: GABAPENTIN 300 MG CAP PO SCH (21:29)
[2023-07-28] MEDS: APIXABAN 5 MG TABLET PO SCH (21:29)
[2023-07-28] MEDS: CALCIUM CARBONATE 1250MG TAB PO SCH (21:29)
[2023-07-28] MEDS: METOPROLOL SUCC 50MG EXT REL TAB PO SCH (21:29)
[2023-07-28] MEDS: INSULIN ASPART PER UNIT CHARGE SC SCH (21:32)
[2023-07-28] MEDS: LANTUS PER UNIT CHARGE SQ SCH (21:34)
[2023-07-29 06:34] LABS: Basophils # (auto) 0.01 K/uL (0.00-0.20); Basophils % (auto) 0.2 %; Eosinophils # (auto) 0.18 K/uL (0.00-0.50); Hematocrit (blood only) 30.3 % (42.0-52.0); Hemoglobin 9.5 g/dl (14.0-18.0); Immature Granulocytes # (auto) 0.04 K/uL (0.01-0.20); Immature Granulocytes % (auto) 0.9 %; Lymphocytes # (auto) 0.93 K/uL (1.20-3.40); Lymphocytes % (auto) 20.8 %; Mean Corpuscular Hemoglobin 29.2 pg (25.0-34.0); Mean Corpuscular Hgb Conc 31.4 g/dL (32.0-36.0); Mean Corpuscular Volume 93.2 fL (80.0-100.0); Monocytes # (auto) 0.55 K/uL (0.11-0.59); Monocytes % (auto) 12.3 %; Neutrophils # (auto) 2.77 K/uL (1.40-6.50); Neutrophils % (auto) 61.8 %; Platelet Count 145 K/uL (130-400); RDW Coefficient of Variation 14.9 % (11.5-14.5); RDW Standard Deviation 50.1 fL (36.4-46.3); Red Blood Count 3.25 M/uL (4.70-6.10); White Blood Count 4.48 K/ul (4.8-10.8)
[2023-07-29 07:05] LABS: BUN Creatinine Ratio 16.2 (10-20); Calcium 9.1 mg/dl (8.6-10.3); Creatinine Clr Calc Pharmacy 46.7 ml/min; Est GFR (Non-African American) 52.6 ml/min; Potassium 3.8 mmol/L (3.5-5.1)
--- NOTE | 2023-07-29 07:46 | Cardiology Progress Note ---
Date of Service July 29, 2023 Assessment & Plan (1) Orthostatic hypotension: (2) Ischemic cardiomyopathy: (3) Chronic heart failure with reduced ejection fraction and diastolic dysfunction: (4) Tachy-noman syndrome: (5) PAF (paroxysmal atrial fibrillation): Plan Impression: Medically complex 78-year-old male with history of ischemic cardiomyopathy admitted for significant symptomatic orthostatic hypotension. Blood pressures improving since admission. Lasix on hold (normally maintained on 40 mg Wednesday only at home) Not on any antihypertensive medications. Telemetry without concerning findings, sinus rhythm/paced in the 60s. HS troponin mildly elevated but flat-- no evidence of ACS. Plan: Orthostatic hypotension--cause likely multifactorial with underlying comorbidities with a component of hypovolemia Agree with holding diuretics at this time. At discharged recommend sending patient home on reduced dose of Lasix, 20 mg MWF only. Tachybradycardia syndrome/paroxysmal atrial fibrillation, status post permanent pacemaker: Heart rates controlled on telemetry Continue metoprolol succinate 50 mg twice daily Continue Eliquis 5 mg twice daily for stroke prevention. Case discussed with Dr. Lin. No further recommendations from a cardiology standpoint. Will sign off. Admission and Anticipated Discharge Date Admission Date: July 28, 2023 Supervising Physician Co-Signing Physician Notes Patient seen and examined with full assessment as well outlined above. No signs or symptoms of decompensated heart failure with hypotension likely on the basis of orthostasis mild hypovolemia. Adjustments and recommendations as above Discussed in detail with patient Subjective Medically complex 78-year-old male with history of ischemic cardiomyopathy admitted for significant symptomatic orthostatic hypotension. Chest x-ray improving from prior hospitalization--Lasix held. Metoprolol and Eliquis continued. 07/29: Labs: Renal function trending towards baseline currently 1.3, previously 1.48 No acute concerns over night. BP improving with holding of diuretic. No chest pain, RAYGOZA. Occasional lightheadedness with position changes. No syncope. Tele: paced 60s Review of Systems Review of Systems: All systems reviewed & are unremarkable except as noted in HPI & below Physical Exam Constitutional: WD/WN, vitals as above + ill appearing; no acute distress Eyes: PERRL, conjunctivae normal, anicteric sclerae ENMT: external ear and nose normal, oropharynx normal Neck: normal visual inspection and trachea midline Respiratory: normal respiratory effort, lungs clear to auscultation Cardiovascular: RRR, no murmur, no edema Heart Sounds: normal S1 and normal S2 Vessels: no JVD Extremities: no edema Gastrointestinal (Abdomen): normal bowel sounds, soft, nontender, no hepatosplenomegaly Skin: no rashes, warm and dry Psychiatric: A+Ox3, euthymic affect Results & Data Vital Signs (Past 12 Hours) Vital Signs Temp Pulse Pulse Resp BP Pulse Ox O2 Del Method 07/29/23 03:57 36.6 C 67 16 107/61 95 Room Air 07/29/23 00:17 37.0 C 59 L 16 93/56 L 96 Room Air 07/28/23 21:39 65 07/28/23 19:49 36.7 C 18 124/64 93 Room Air Laboratory Results Cardiac Enzymes 07/28/23 07/28/23 07/28/23 Range/Units 10:35 10:35 12:11 AST 35 (13-39) U/L Troponin I High Sens 33.1 H 28.8 H (0-20) pg/ml B-Natriuretic Peptide 465 H (0-100) pg/ml 07/28/23 Range/Units 14:22 AST (13-39) U/L Troponin I High Sens 28.7 H (0-20) pg/ml B-Natriuretic Peptide (0-100) pg/ml Coagulation 07/28/23 Range/Units 10:35 B-Natriuretic Peptide 465 H (0-100) pg/ml CBC 07/29/23 Range/Units 05:37 WBC 4.48 L (4.8-10.8) K/ul RBC 3.25 L (4.70-6.10) M/uL Hgb 9.5 L (14.0-18.0) g/dl Hct 30.3 L (42.0-52.0) % Plt Count 145 (130-400) K/uL Neut # (Auto) 2.77 (1.40-6.50) K/uL Lymph # (Auto) 0.93 L (1.20-3.40) K/uL Lawrence # (Auto) 0.55 (0.11-0.59) K/uL Eos # (Auto) 0.18 (0.00-0.50) K/uL Baso # (Auto) 0.01 (0.00-0.20) K/uL Comprehensive Metabolic Panel 07/28/23 07/29/23 Range/Units 10:35 05:37 Sodium 141 139 (136-145) mmol/L Potassium 4.1 3.8 (3.5-5.1) mmol/L Chloride 106 104 (98-107) mmol/L Carbon Dioxide 27 29 (21-32) mmol/L BUN 20 21 (6-23) mg/dl Creatinine 1.48 H 1.30 (0.6-1.4) mg/dl Glucose 110 H 96 (70-99(Fasting)) mg/dl Calcium 10.1 9.1 (8.6-10.3) mg/dl AST 35 (13-39) U/L ALT 45 (7-52) U/L Alkaline Phosphatase 78 (34-104) U/L Total Protein 6.6 (6.0-8.3) gm/dl Albumin 4.0 (3.4-5.0) gm/dl Intake and Output 07/28/23 07/29/23 07/29/23 22:59 06:59 14:59 Output Total 500 / 500 Balance -500 / -500 Output: Urine 500 / 500 Other: Other Intake Source sips Weight 71.3 kg 69.4 kg Weight Measurement Method Built in [facility]
[2023-07-29] MEDS: POTASSIUM CHLORIDE CRTAB 20 MEQ TABCR PO SCH (08:27)
[2023-07-29] MEDS: CALCIUM CARBONATE 1250MG TAB PO SCH (08:28)
[2023-07-29] MEDS: METOPROLOL SUCC 50MG EXT REL TAB PO SCH (08:28)
[2023-07-29] MEDS: APIXABAN 5 MG TABLET PO SCH (08:28)
[2023-07-29] MEDS: GABAPENTIN 300 MG CAP PO SCH (08:28)
[2023-07-29] MEDS: LANTUS PER UNIT CHARGE SQ SCH (08:33)
[2023-07-29] MEDS ORDERED: METOPROLOL SUCC 25MG EXT REL TAB PO SCH (09:00)
[2023-07-29] MEDS ORDERED: ATORVASTATIN 40 MG TAB PO SCH (09:00)
[2023-07-29] MEDS ORDERED: PANTOprazole 40 MG TAB PO SCH (09:00)
[2023-07-29] MEDS ORDERED: CYANOCOBALAMIN (B-12) 500 MCG TABLET PO SCH (09:00)
[2023-07-29] MEDS ORDERED: LINACLOTIDE 145 MCG CAPSULE PO SCH (09:00)
[2023-07-29] MEDS: INSULIN ASPART PER UNIT CHARGE SC SCH ×2 (09:00→13:18)
--- NOTE | 2023-07-29 12:43 | Electrocardiogram Report ---
Test Reason : Blood Pressure : / mmHG Vent. Rate : 062 BPM Atrial Rate : 062 BPM P-R Int : 282 ms QRS Dur : 096 ms QT Int : 438 ms P-R-T Axes : 000 076 051 degrees QTc Int : 444 ms Atrial-paced rhythm with prolonged AV conduction with occasional supraventricular complexes Septal infarct , age undetermined Abnormal ECG When compared with ECG of 28-JUL-2023 10:21, Electronic atrial pacemaker has replaced Sinus rhythm Confirmed by Dutch Dela Cruz ([id number]) on 07/29/2023 12:42:56 PM Referred By: REFERRED SELF Confirmed By:Dutch Dela Cruz
--- NOTE | 2023-07-29 14:03 | Hospitalist Progress Note ---
Date of Service July 29, 2023 Assessment & Plan (1) Hypotension: (2) Elevated troponin: (3) Chronic heart failure with reduced ejection fraction and diastolic dysfunction: (4) PAF (paroxysmal atrial fibrillation): (5) Ischemic cardiomyopathy: (6) CAD (coronary artery disease): (7) Diabetic peripheral neuropathy associated with type 2 diabetes mellitus: (8) Type 2 diabetes mellitus: (9) Interstitial lung disease: (10) HTN (hypertension): (11) HLD (hyperlipidemia): (12) Multiple myeloma: Plan: Patient is a 78 yr male with H/O Chronic systolic CHF, chronic ischemic heart disease, HTN, HLD, CAD s/p CABG, history of STEMI, paroxysmal A-fib, SSS s/p pacemaker, DM type II, peripheral neuropathy, GERD, CKD, multiple myeloma with last treatment on 05/25/2023 (currently being on hold), emphysema, interstitial lung disease, h/o opioid-induced constipation and others listed below presented to ER with c/o low blood pressure and dizziness with position change. Hypotension Secondary to Orthostatic hypotension Positive orthostatics Likely secondary to medications Lasix dose decreased to 20mg MWF per Cardiology recommendations Will Continue Metoprolol succinate 75mg QAM and 50mg QPM Discussed with Cardiology today. Advised to follow up with Cardiology as outpatient Elevated troponin HS troponin: 33-->28.8-->28.[address] changes Chronic elevated troponin H/O Atrial fibrillation Continue Eliquis Continue metoprolol succinate, digoxin Not candidate for amiodarone in past Chronic systolic HF 06/25/2023 echo: EF: 35-40%, large wall motion abnormality, aortic valve sclerosis without significant stenosis, moderate MR MPG cardiology input Decrease Lasix to 20 mg 3 times a week as per cardiology CKD Cr: 1.48. Recent baseline ~1.3 Continue to monitor, avoid nephrotoxic agents when able Left Foot Wound infection Present on arrival Chronic, following with the wound clinic Pressure offloading with ELENA roque Wound care nurse consulted History of CAD History ischemic cardiomyopathy S/P CABG Continue metoprolol succinate Troponins as above Chronic Interstitial lung disease Emphysema Saturating well on room air, no wheezing on exam Continue outpatient pulmonology follow up SSS s/p pacemaker Multiple Myeloma IgA kappa with lytic bone lesions Initially dx 08/18/2021 with BM biopsy. Recent chemotherapy with Darzalex , Revlimid and Decadron Last treatment 05/2023 Continue morphine IR 15 mg for pain, gabapentin 300 mg BID with bowel regimen Follows with oncology as outpatient DM II A1C was 6.9 on 07/07/23 Hold home agents Basal/bolus insulin while in-patient DVT Px Eliquis Code Status DNR/DNI Admission and Anticipated Discharge Date Admission Date: July 28, 2023 Subjective Patient is seen and examined at bedside Subjectively feels well this morning Dizziness resolved Denies any chest pain, dyspnea, nausea, vomiting, abdominal pain States having minimal cough but otherwise no complaints Review of Systems Review of Systems: All systems reviewed & are unremarkable except as noted in Subjective Physical Exam Physical Exam: Physical Exam: Vitals signs as noted above General Appearance:Thin, Frail, no apparent distress Head: normocephalic, Atraumatic Eyes: normal inspection, EOMI Neck: supple, Trachea midline Respiratory/Chest: Decreased breath sounds, CTA, No accessory muscle use Cardiovascular: S1,S2 +murmur Abdomen/GI:Soft, Non tender, Bowel sounds present Extremities/Musculoskeletal:normal inspection, no edema Neurologic/Psych:AAOX3, grossly no focal neurological deficits, +L small open plantar wound Skin: normal color, warm Results & Data Results & Data Vital Signs (Past 12 Hours) Vital Signs Temp Pulse Pulse Resp BP Pulse Ox O2 Del Method 07/29/23 12:16 36.6 C 68 18 125/61 95 Room Air 07/29/23 06:00 64 07/29/23 08:09 36.3 C L 81 18 109/61 98 Room Air 07/29/23 03:57 36.6 C 67 16 107/61 95 Room Air Laboratory Results Short CBC 07/29/23 Range/Units 05:37 WBC 4.48 L (4.8-10.8) K/ul Hgb 9.5 L (14.0-18.0) g/dl Hct 30.3 L (42.0-52.0) % Plt Count 145 (130-400) K/uL BMP 07/29/23 05:37 Sodium 139 Potassium 3.8 Chloride 104 Carbon Dioxide 29 BUN 21 Creatinine 1.30 Glucose 96 Calcium 9.1 (1) Hypotension Hypotension type: orthostatic hypotension Qualified Code(s): I95.1 - Orthostatic hypotension
--- NOTE | 2023-07-29 14:37 | Discharge Summary ---
Date of Service July 29, 2023 Admission HPI Per Admitting Provider This is a 78-year-old male with PMH of chronic systolic CHF, chronic ischemic heart disease, HTN, HLD, CAD s/p CABG, history of STEMI, paroxysmal A-fib, SSS s/p pacemaker, DM type II, peripheral neuropathy, GERD, CKD, multiple myeloma with last treatment on 05/25/2023 (currently being on hold), emphysema, interstitial lung disease, h/o opioid-induced constipation and others listed below presented to ER with c/o low blood pressure. History obtained from patient, patient's significant other, inpatient and outpatient chart review. History of recurrent hospitalizations in 06/2023. Hospitalization 07/06/2023-07/20/2023 for dyspnea on exertion, pneumonia, acute on chronic heart failure, atrial fibrillation RVR. Initially treated with cefepime and was changed to Zosyn, doxycycline. Discharged on 2 additional days of doxycycline to complete 7-day treatment. Received 1 unit PRBCs for symptomatic anemia and Hgb was 10.6 on discharge. Discharged on Metoprolol succinate 75 mg am and 50mg PM as well as Lasix MWF. Patient was seen in outpatient cardiology clinic today and was found to be hypotensive and was sent to ER via EMS. Patient states has had lethargy and fatigue since starting treatment for multiple myeloma. He states he feels "has not bounced back" yet. Significant other reports patient is very fatigued and sleeping most of the day. Last several days has been having dizziness/lightheadedness with standing. Has not been ambulating much secondary to fatigue as well as lightheadedness with ambulation. Has been using a walker at home. Denies any falls. Denies syncope. Also reports decreased appetite. States patient is however eating and drinks approximately 90 ounces of water daily. Patient feels his exertional shortness of breath is at baseline. Significant other feels that it may be worse than baseline. Patient is not complaining of any shortness of breath currently. Last BM yesterday. C/O ongoing posterior neck pain that has been present for months. Uses heating pad at home with some relief. Denies any known injury. Denies fever/chills, diaphoresis, N/V/D, SANCHEZ, vision changes, CP, palpitations, cough, sore throat, choking, otalgia, rhinorrhea, abdominal pain, paresthesias, extremity edema, rashes, urinary symptoms. Principal Diagnosis Dizziness Orthostatic hypotension Discharge Data Allergies Allergy/AdvReac Type Severity Reaction Status Date / Time tizanidine Allergy Unknown UNKNOWN--ON Verified 06/25/23 13:38 [facility] MED LIST Consultations 07/28/23 12:38 ED Decision to Admit Stat 07/28/23 19:47 Consult Cardiology Routine Hospital Course (1) Hypotension: (2) Elevated troponin: (3) Chronic heart failure with reduced ejection fraction and diastolic dysfunction: (4) PAF (paroxysmal atrial fibrillation): (5) Ischemic cardiomyopathy: (6) CAD (coronary artery disease): (7) Diabetic peripheral neuropathy associated with type 2 diabetes mellitus: (8) Type 2 diabetes mellitus: (9) Interstitial lung disease: (10) HTN (hypertension): (11) HLD (hyperlipidemia): (12) Multiple myeloma: Patient is a 78 yr male with H/O Chronic systolic CHF, chronic ischemic heart disease, HTN, HLD, CAD s/p CABG, history of STEMI, paroxysmal A-fib, SSS s/p pacemaker, DM type II, peripheral neuropathy, GERD, CKD, multiple myeloma with last treatment on 05/25/2023 (currently being on hold), emphysema, interstitial lung disease, h/o opioid-induced constipation and others listed below presented to ER with c/o low blood pressure and dizziness with position change. Dizziness/Hypotension Secondary to Orthostatic hypotension Positive orthostatics Likely medications (Lasix) contributing Lasix dose decreased to 20mg MWF per Cardiology recommendations Will Continue Metoprolol succinate 75mg QAM and 50mg QPM Discussed with Cardiology today. Advised to follow up with Cardiology as outpatient Elevated troponin HS troponin: 33-->28.8-->28.[address] changes Chronic elevated troponin H/O Atrial fibrillation Continue Eliquis Continue metoprolol succinate, digoxin Not candidate for amiodarone in past Chronic systolic HF 06/25/2023 echo: EF: 35-40%, large wall motion abnormality, aortic valve sclerosis without significant stenosis, moderate MR MPG cardiology input Decrease Lasix to 20 mg 3 times a week as per cardiology CKD Cr: 1.48. Recent baseline ~1.3 Continue to monitor, avoid nephrotoxic agents when able Left Foot Wound infection Present on arrival Chronic, following with the wound clinic Pressure offloading with CAM boot Wound care nurse consulted History of CAD History ischemic cardiomyopathy S/P CABG Continue metoprolol succinate Troponins as above Chronic Interstitial lung disease Emphysema Saturating well on room air, no wheezing on exam Continue outpatient pulmonology follow up SSS s/p pacemaker Multiple Myeloma IgA kappa with lytic bone lesions Initially dx 08/18/2021 with BM biopsy. Recent chemotherapy with Darzalex , Revlimid and Decadron Last treatment 05/2023 Continue morphine IR 15 mg for pain, gabapentin 300 mg BID with bowel regimen Follows with oncology as outpatient DM II A1C was 6.9 on 07/07/23 Hold home agents Basal/bolus insulin while in-patient DVT Px Eliquis Code Status DNR/DNI Total Time Total Time Spent Total Time Spent (In Minutes): 46 minutes Discharge Plan Discharge Items Patient Disposition: Home - Self-Care Reason For Visit: HYPOTENSION Discharge Diagnosis: Dizziness Orthostatic hypotension Activity: Per Instructions section Exercise/Sports: Wait until after follow-up appointment Non-emergency contact: Primary Care Provider and Director Outcomes Call non-emergency contact if: you have any medication questions, your symptoms worsen, your pain is concerning for you and you have a fever Follow-up/Referrals: Landen Macario, DO [Primary Care Provider] - Diet: Carb Consistent or DM2 Addtl Attending Provider Instructions: Follow-up with your primary care physician Dr. Macario in 1 week Follow-up with your dance costume designer Dr. Lin as recommended --Your Lasix is decreased to 20 mg 3 times a week (Wednesday, Wednesday and Wednesday only) Seek immediate medical attention if your symptoms reoccur or worsen Please take all medications as instructed on discharge list below. Please call if you have any questions or problems. You can reach a [facility] hospitalist on duty at [facility] 24 hours a day by calling [phone] Pending Studies at Discharge: No Stand-Alone Forms: My [facility] [employer], Smoking Cessation Medications and DC Order Prescriptions: New furosemide [Lasix] 20 mg tablet 20 mg PO UD Qty: 30 0RF Rx Instructions: 3 times a week--on Wednesday, Wednesday and Wednesday only Continued atorvastatin 40 mg tablet 40 mg PO DAILY Eliquis 5 mg tablet 5 mg PO BID insulin glargine [Basaglar KwikPen U-100 Insulin] 100 unit/mL (3 mL) insulin pen 45 unit SUBCUT QPM omega-3 fatty acids 1,000 mg Capsule 1,000 mg PO BID sennosides [senna] 8.6 mg Tablet 17.2 mg PO HS PRN (Reason: Constipation) digoxin 125 mcg (0.125 mg) tablet 125 mcg PO Q OTHER DAY albuterol sulfate 90 mcg/actuation Hfa Aerosol Inhaler 2 puff INHALATION Q6H PRN (Reason: COUGH/SHORT OF BREATH/WHEEZING) lenalidomide [Revlimid] 10 mg capsule 10 mg PO DIRECTED Rx Instructions: TAKES FOR 21 DAYS THEN OFF FOR 7 DAYS - off right now calcium carbonate-vitamin D3 [Calcium 600 + D(3)] 600 mg-10 mcg (400 unit) Tablet 1 tab PO BID potassium chloride 20 mEq tablet,ER particles/crystals 20 meq PO BID prochlorperazine maleate 10 mg Tablet 10 mg PO Q6H PRN (Reason: nausea) ondansetron 8 mg Tablet,Disintegrating 8 mg PO Q8H PRN (Reason: Nausea) Victoza 2-Jed 0.6 mg/0.1 mL (18 mg/3 mL) Pen Injector 1.2 mg SUBCUT DAILY polyethylene glycol 3350 [Miralax] 17 gram Powder In Packet 17 g PO DAILY PRN (Reason: constipation) Qty: 15 0RF nitroglycerin 0.4 mg tablet, sublingual 0.4 mg sublingual .Q 5 MIN MDD 3 doses in 15 min PRN (Reason: Chest Pain) insulin aspart U-100 [Novolog FlexPen U-100 Insulin] 100 unit/mL (3 mL) insulin pen 15 unit SUBCUT TIDM MDD 60 UNITS Patient Comments: Uses scale to dose Rx Instructions: PLUS CORRECTION OF 1:25 OVER 150. gabapentin 300 mg capsule 300 mg PO AMHS Rx Instructions: BID PER DR 1ST docusate sodium [Colace] 100 mg capsule 100 mg PO BID PRN (Reason: Constipation) morphine 15 mg tablet 15 mg PO Q4H PRN (Reason: Pain) mecobalamin (vitamin B12) [B12 Active] 1,000 mcg Tablet,Chewable 1,000 mcg PO DAILY dexamethasone 4 mg tablet 20 mg PO WK Rx Instructions: Tuesdays, chemotherapy on hold mirtazapine 30 mg tablet 30 mg PO HS omeprazole 20 mg capsule,delayed release(DR/EC) 20 mg PO QAM metoprolol succinate 25 mg tablet extended release 24 hr 25 mg PO UD Qty: 30 1RF Rx Instructions: Take Metoprolol 75mg QAM and 50mg QPM metoprolol succinate [Toprol XL] 50 mg tablet extended release 24 hr 50 mg PO UD Qty: 60 0RF Rx Instructions: Take Metoprolol 75mg QAM and 50mg QPM Linzess 145 mcg capsule 145 mcg PO DAILY Discontinued furosemide 40 mg Tablet 40 mg PO MoWeFr@0900 Qty: 30 0RF Rx Instructions: on Wednesday, Wednesday and Wednesday only Discharge Orders: Discharge Order (Routine); Ordered 07/29/23 Ordered By: Bhavesh Woo/Other Patient Handouts: Managing Type 2 Diabetes, Special Foot Care for Diabetes Admission Data Admit Date/Time: 07/28/23 12:57 Attending Provider: Bhavesh Larsen Admit Provider: Luciana Waggoner Primary Care Provider: Landen Macario. Other Providers: Luciana Waggoner ; Davide Lin ; [facility],Home Healthcare
[2023-07-30] MEDS ORDERED: DIGOXIN 0.125 MG TAB PO SCH (16:00)
== END 2023-07-29 15:38 | disposition home or self-care (01) ==
LOC: ED 10:14 → 4W 10:14 → SUATTDRO 12:57 → 4W 18:58

== ENCOUNTER 2023-08-20 09:23 | Inpatient (IN) ==
[2023-08-20 10:22] LABS: Base Excess VBG -1.5 mEq/L; HCO3 VBG 24 mmol/L; Oxygen Saturation VBG < 60.0 %; PCO2 VBG 41 mmHg (38-50); PO2 VBG 22 mmHg; pH VBG 7.37 (7.36-7.41)
--- NOTE | 2023-08-20 10:22 | XRay Report ---
XR chest 1V portable CLINICAL HISTORY: Chest pain, nonspecific COMPARISON STUDY: Chest CT July 06, 2023. Chest radiograph July 28, 2023. FINDINGS: Left subclavian pacer is in place. There are median sternotomy wires and mediastinal surgic al clips. There is no pneumothorax. No definite pleural effusion. Right upper lung airspace opacity i s again noted. There is also minimal right midlung opacity. Findings are similar to prior exam. No co nsolidation within the left lung is noted. Underlying emphysema is better depicted on prior chest CT. IMPRESSION: Persistent mild right upper and midlung airspace opacities, similar to prior exam. The f indings may reflect resolving pneumonia however continued imaging follow-up is recommended to ensure resolution. ACT 112: Negative or not required by law. Electronically signed by: Raghu Mcgowan M.D. 08/20/2023 10:20 AM
[2023-08-20 10:24] LABS: Hematocrit (blood only) 28.5 % (42.0-52.0); Hemoglobin 9.3 g/dl (14.0-18.0); Mean Corpuscular Hemoglobin 30.4 pg (25.0-34.0); Mean Corpuscular Hgb Conc 32.6 g/dL (32.0-36.0); Mean Corpuscular Volume 93.1 fL (80.0-100.0); Mean Platelet Volume 10.6 fL (9.4-12.4); Platelet Count 140 K/uL (130-400); Red Blood Count 3.06 M/uL (4.70-6.10); White Blood Count 11.02 K/ul (4.8-10.8)
[2023-08-20 10:40] LABS: BUN Creatinine Ratio 14.8 (10-20); Calcium 9.2 mg/dl (8.6-10.3); Creatinine Clr Calc Pharmacy 44.7 ml/min; Est GFR (African American) 58.3 ml/min; Est GFR (Non-African American) 50.3 ml/min; Potassium 4.5 mmol/L (3.5-5.1)
[2023-08-20 10:47] LABS: Troponin I High Sensitivity 18.8 pg/ml (0-20)
[2023-08-20 10:48] LABS: Basophils # (auto) 0.01 K/uL (0.00-0.20); Basophils % (auto) 0.1 %; Immature Granulocytes # (auto) 0.05 K/uL (0.01-0.20); Immature Granulocytes % (auto) 0.5 %; Lymphocytes # (auto) 0.36 K/uL (1.20-3.40); Lymphocytes % (auto) 3.3 %; Monocytes # (auto) 0.63 K/uL (0.11-0.59); Monocytes % (auto) 5.7 %; Neutrophils # (auto) 9.97 K/uL (1.40-6.50); Neutrophils % (auto) 90.4 %; Ovalocytes 1+; Polychromasia 1+; Tear Drop Cells 2+
[2023-08-20 10:52] LABS: INR 1.1 (0.9-1.1); Partial Thromboplastin Time 28.8 Seconds (21.0-31.0); Prothrombin Time 12.3 Seconds (9.0-12.0)
[2023-08-20] MEDS ORDERED: FUROSEMIDE 40 MG/4 ML VIAL IV ONE (11:00)
[2023-08-20 11:45] LABS: C Reactive Protein 4.77 mg/dl (0-0.5)
--- NOTE | 2023-08-20 12:43 | History & Physical Report ---
Date of Service August 20, 2023 Assessment & Plan (1) Hypoxia: (2) Interstitial lung disease: (3) Ischemic cardiomyopathy: (4) Chronic heart failure with reduced ejection fraction and diastolic dysfunction: Plan: Admit to [facility] with telemetry Patient presenting from home with reports of shortness of breath x 2 days. Was at the wound care center today and was referred to the ED due to shortness of breath. In the ED, patient was found to be hypoxic on room air, currently requiring 2 L of oxygen via nasal cannula. Etiology unclear --possible CHF vs pneumonia. Doubt PE given active anticoagulation on Eliquis. During recent admission, patient's Lasix was reduced from 40 mg MWF to 20 mg MWF. proBNP 258 (improved from most recent results) CXR: Persistent right upper and right midlung opacities; treated for pneumonia about 1 month ago S/p Lasix 40 mg IV in the ED Echo 06/2023-EF 35 to 40%, diastolic dysfunction CT chest shows Multisegmental multilobar dissipation of bilateral tree-in-bud nodules within a mid to lower lung zone predominant distribution compatible with an infectious or inflammatory bronchiolitis/pneumonitis. Linear area of right apical consolidation is suggestive of postinflammatory scarring. Attention on follow-up recommended. Procalcitonin negative Check bio fire Given CT results, likely infectious source. Will start doxycycline and IV Zosyn. Consult pulmonary given persistent right lung consolidation. Continue home dose Lasix for now (5) PAF (paroxysmal atrial fibrillation): Plan: Rate controlled on metoprolol and digoxin, anticoagulated on Eliquis (6) Tachy-noman syndrome: (7) Pacemaker: Plan: Chronic, stable No acute issue (8) Diabetic ulcer of left foot: Plan: Present on admission Follows with the wound care center (9) CAD (coronary artery disease): Plan: Appears stable, no reports of chest pain Continue statin and beta-annika (10) Type 2 diabetes mellitus: Plan: Hgb A1c 6.9 06/2023 Hold home agents and utilize NovoLog per protocol while hospitalized (11) Multiple myeloma: Plan: Follows with Dr. Garcia Treatment currently on hold DVT PROPHYLAXIS On Eliquis Patient seen in collaboration with Dr. Mcgee. I spent a total of 75 minutes coordinating, documenting, and providing care for this patient excluding time spent in the performance of separately billed services. This included personally reviewing all current laboratories and imaging studies, medication reconciliation, outpatient chart review, and discussion with specialists. History of Present Illness Chief Complaint: Shortness of breath Primary Care Provider: Landen Macario DO 78-year-old male with PMH DM type II, dyslipidemia, COPD, interstitial lung disease, CAD, paroxysmal atrial fibrillation anticoagulated on Eliquis, chronic systolic CHF EF 35 to 40%, tachybradycardia syndrome s/p pacemaker, multiple myeloma, and other problems as below who presents to the ED for evaluation of shortness of breath. History obtained from the patient and review of outpatient PCP, cardiology, oncology records. Patient reports shortness of breath for the past couple days. Reports shortness of breath with minimal exertion, no shortness of breath at rest. Reports a cough productive for yellow sputum. No chest pain or palpitations. Reports feeling mildly lightheaded and dizzy with standing, no syncopal event. Has had a poor appetite but denies abdominal pain, nausea, vomiting, diarrhea. No fevers or chills. Denies urinary symptoms. Patient was at the wound care center today for management of left lower extremity wound and given shortness of breath symptoms, was referred to the ED for further evaluation. In the ED, patient was hypoxic on room air, currently requiring 2 L of oxygen via nasal cannula. CXR shows persistent right upper and right mid lung opacities. proBNP 258. Initial HS troponin negative. Patient was given Lasix 40 mg IV. Allergies Allergy/AdvReac Type Severity Reaction Status Date / Time tizanidine Allergy Unknown UNKNOWN--ON Verified 08/20/23 08:20 [facility] MED LIST Home Medications Medication Instructions Recorded Confirmed Type apixaban 5 mg tablet (Eliquis) 5 mg PO BID 06/25/20 08/20/23 History atorvastatin 40 mg tablet 40 mg PO DAILY 06/25/20 08/20/23 History liraglutide 0.6 mg/0.1 mL (18 mg/3 1.2 mg subcut DAILY 09/30/21 08/20/23 History mL) subcutaneous pen injector (Victoza 2-Jed) ondansetron 8 mg disintegrating 8 mg PO Q8H PRN Nausea 09/30/21 08/20/23 History tablet prochlorperazine maleate 10 mg 10 mg PO Q6H PRN nausea 09/30/21 08/20/23 History tablet polyethylene glycol 3350 17 gram 17 g PO DAILY PRN constipation #15 10/05/21 08/20/23 Rx oral powder packet (Miralax) ea nitroglycerin 0.4 mg sublingual 0.4 mg sublingual .Q 5 MIN PRN 11/01/21 08/20/23 History tablet Chest Pain omega-3 fatty acids 1,000 mg 1,000 mg PO BID 04/15/22 08/20/23 History capsule docusate sodium 100 mg capsule 100 mg PO BID PRN Constipation 04/22/22 08/20/23 History (Colace) gabapentin 300 mg capsule 300 mg PO AMHS 04/22/22 08/20/23 History mecobalamin (vitamin B12) 1,000 1,000 mcg PO DAILY 04/22/22 08/20/23 History mcg chewable tablet (B12 Active) morphine 15 mg immediate release 15 mg PO Q4H PRN Pain 04/22/22 08/20/23 History tablet calcium carbonate 600 mg-vitamin 1 tab PO BID 11/04/22 08/20/23 History D3 10 mcg (400 unit) tablet (Calcium 600 + D(3)) digoxin 125 mcg (0.125 mg) tablet 125 mcg PO Q OTHER DAY 11/04/22 08/20/23 History lenalidomide 10 mg capsule 10 mg PO DIRECTED 11/04/22 08/20/23 History (Revlimid) potassium chloride 20 mEq 20 meq PO BID 11/04/22 08/20/23 History tablet,extended release(part/cryst) sennosides 8.6 mg tablet (senna) 17.2 mg PO HS PRN Constipation 11/04/22 08/20/23 History insulin aspart U-100 100 unit/mL 15 unit subcut TIDM 12/31/22 08/20/23 History (3 mL) subcutaneous pen (Novolog FlexPen U-100 Insulin aspart) insulin glargine 100 unit/mL (3 45 unit subcut QPM 12/31/22 08/20/23 History mL) subcutaneous pen (Basaglar KwikPen U-100 Insulin) dexamethasone 4 mg tablet 20 mg PO WK 06/25/23 08/20/23 History mirtazapine 30 mg tablet 30 mg PO HS 06/25/23 08/20/23 History omeprazole 20 mg capsule,delayed 20 mg PO QAM 06/25/23 08/20/23 History release linaclotide 145 mcg capsule 145 mcg PO DAILY 07/28/23 08/20/23 History (Linzess) furosemide 20 mg tablet (Lasix) 20 mg PO UD #30 tabs 07/29/23 08/20/23 Rx metoprolol succinate 25 mg 25 mg PO DAILY 08/20/23 08/20/23 History tablet,extended release 24 hr metoprolol succinate 50 mg 50 mg PO BID 08/20/23 08/20/23 History tablet,extended release 24 hr (Toprol XL) Past Med/Surg History Medical History Interstitial lung disease PAF (paroxysmal atrial fibrillation) Diabetic ulcer of left foot Chronic deep vein thrombosis (DVT) Diarrhea Pneumonia CHI (closed head injury) NSTEMI (non-ST elevated myocardial infarction) ABDI (acute kidney injury) History of pilonidal cyst Pacemaker History of basal cell carcinoma History of melanoma in situ Hallux rigidus of left foot "S/p multiple surgeries" HLD (hyperlipidemia) CAD (coronary artery disease) Type 2 diabetes mellitus Surgical History Status post total hip replacement, left History of bone marrow biopsy History of cataract surgery S/P CABG x 4 S/P Mohs surgery for basal cell carcinoma History of foot surgery Family History Mother Lymphoma Social History Smoking Status: Former smoker Tobacco Type: Cigarettes Second Hand Exposure: Yes; Hx Alcohol Use: No Hx Substance Use: No Preferred Language: Maori Communication Ability: Effective Visual Impairment: No Limitations Hearing Ability: Normal Portfolio Assistant Required: No Beliefs That Will Affect Care: None marital status: Current Living Situation: Spouse Current Living Situation Comment: home current occupational status: retired How many Children do You have: 1 How many Children do You have Comment: Magi lives in [facility]. able to assist with care as needed. Feels Safe at Home: Yes Diet: regular Diet Comment: Trying to gain weight caffeine: No during the past year weight has: decreased > 10 lbs Assistive Devices: Cane Physical Exam Constitutional: WD/WN, vitals as above no acute distress Eyes: PERRL, conjunctivae normal, anicteric sclerae Respiratory: normal respiratory effort; no respiratory distress Auscultation: + crackles (Bilateral bases) Cardiovascular: Rate/Rhythm: regular rate and regular rhythm Vessels: normal peripheral pulses Extremities: no edema Gastrointestinal (Abdomen): normal bowel sounds, soft, nontender, no hepatosplenomegaly Musculoskeletal: no cyanosis or clubbing, extremities motor strength 5/[address] to LLE Skin: no rashes, warm and dry Neurologic: PERRL, EOMI, accommodation nl, no face palsy, no dysarthria Psychiatric: A+Ox3, euthymic affect Results & Data Results & Data Vital Signs (Past 12 Hours) Vital Signs Temp Pulse Pulse Resp BP BP Pulse Ox 08/20/23 11:01 82 19 08/20/23 11:01 111/62 08/20/23 11:00 84 21 08/20/23 10:30 81 27 H 97 08/20/23 10:30 119/61 08/20/23 10:15 81 24 136/78 93 08/20/23 10:08 08/20/23 09:39 87 L 08/20/23 09:39 37.3 C 90 18 126/66 88 L 08/20/23 09:35 91 H O2 Del Method O2 Flow Rate 08/20/23 11:01 08/20/23 11:01 08/20/23 11:00 08/20/23 10:30 Nasal Cannula 3 08/20/23 10:30 08/20/23 10:15 Nasal Cannula 3 08/20/23 10:08 Nasal Cannula 08/20/23 09:39 Nasal Cannula 0 08/20/23 09:39 Room Air 08/20/23 09:35 Laboratory Results Short CBC 08/20/23 Range/Units 10:10 WBC 11.02 H (4.8-10.8) K/ul Hgb 9.3 L (14.0-18.0) g/dl Hct 28.5 L (42.0-52.0) % Plt Count 140 (130-400) K/uL BMP 08/20/23 10:10 Sodium 134 L Potassium 4.5 Chloride 103 Carbon Dioxide 22 BUN 20 Creatinine 1.35 Glucose 98 Calcium 9.2 Diagnostic Findings Chest X-Ray 08/20/23 09:53 XR chest 1V portable CLINICAL HISTORY: Chest pain, nonspecific COMPARISON STUDY: Chest CT July 06, 2023. Chest radiograph July 28, 2023. FINDINGS: Left subclavian pacer is in place. There are median sternotomy wires and mediastinal surgical clips. There is no pneumothorax. No definite pleural effusion. Right upper lung airspace opacity is again noted. There is also minimal right midlung opacity. Findings are similar to prior exam. No consolidation within the left lung is noted. Underlying emphysema is better depicted on prior chest CT. IMPRESSION: Persistent mild right upper and midlung airspace opacities, similar to prior exam. The findings may reflect resolving pneumonia however continued imaging follow-up is recommended to ensure resolution. ACT 112: Negative or not required by law. Electronically signed by: Raghu Mcgowan M.D. 08/20/2023 10:20 AM Code Status & VTE Plan Code Status Patient is a DNR as per my discussion with him. VTE Prophylaxis Plan VTE Prophylaxis will be ordered: No Supervising Physician Co-Signing Physician Notes 78-year-old male with PMH of T2DM, HLD, COPD, interstitial lung disease, CAD, paroxysmal A-fib on Eliquis, chronic systolic CHF [EF 35 to 40%], tachycardia- bradycardia syndrome status post pacemaker, multiple myeloma presented to the ED from wound care clinic for evaluation of shortness of breath. Per patient, he has been having shortness of breath for last few days associated with dizziness, reports cough with yellowish sputum for 1 week, reports decreased appetite and generalized weakness. Denies sore throat. Reports compliance with his Lasix 3 times a week regimen. Denies smoking and other ROS. Admitting CXR and labs reviewed. WBC elevated. Troponin and BNP better than his baseline. On examination patient does not appear volume overloaded. Likely pneumonia, CT chest and respiratory BioFire ordered, on doxycycline, adding zosyn and consulting pulm. PT/OT. Wean down oxygen as tolerated. Patient does not use oxygen at home. On examination: GENERAL: Alert and oriented x3. NAD, on 2L NC O2. HEENT: No pallor, no icterus. Pupils equal, round and reactive to light. Oral mucosa moist. NECK: No JVD, no neck masses. HEART: S1 and S2 heard. Regular rate and rhythm. No murmur, no gallop. RESPIRATORY SYSTEM: Normal AP diameter. No accessory muscle use. No wheezing, bb crackles. ABDOMEN: Soft, bowel sounds present, nontender, no distention. CENTRAL NERVOUS SYSTEM: No facial droop. Speech is clear. Obeys simple commands. Moves extremities. EXTREMITIES: No edema, no erythema seen. LLE Alonzo boot noted, has forefoot ulcer/new dressing today at wound clinic/not examined. I have seen and examined the patient and have discussed the case with the provider above. I agree with the assessment and plan as stated.
--- NOTE | 2023-08-20 12:47 | CT Scan Report ---
CT chest diagnostic wo con CT DOSE: 308.08 mGy.cm CLINICAL HISTORY: 78 years-old Male with hypoxia. Acute hypoxia TECHNIQUE: Multiaxial CT images of the chest were performed without contrast. A dose lowering techni que was utilized adhering to the principles of ALARA. COMPARISON: 07/06/2023 FINDINGS: No thyroid nodule. Left subclavian pacer. Mild to moderate cardiomegaly with extensive robinson ve coronary artery calcifications. Median sternotomy with CABG. Atherosclerosis of aorta without aneu rysm. There are suggested postoperative changes of the pulmonary arteries/pulmonic valve. No pneumothorax, pleural effusion or overt pulmonary edema. Emphysema. There is a linear area of cons olidation within the apical right upper lobe on image 64 suggestive of atelectasis/fibrosis measuring 8.1 x 2.8 cm. Multilobar distribution of multifocal tree-in-bud nodules with patchy dependent bibasi lar consolidation admixed with fibrosis and mild traction bronchiectasis. No honeycombing. Central ai rways are patent. No acute process of the imaged upper abdomen. Unremarkable soft tissues. Degenerative changes of the spine. Healed chronic bilateral rib fractures. Stable peripherally sclerotic lucent foci noted within the spine. IMPRESSION: 1. Multisegmental multilobar dissipation of bilateral tree-in-bud nodules within a mid to lower lung zone predominant distribution compatible with an infectious or inflammatory bronchiolitis/pneumonitis . 2. Emphysema with bibasilar fibrotic changes redemonstrated. 3. Linear area of right apical consolidation is suggestive of postinflammatory scarring. Attention on follow-up recommended. 4. No pleural effusion or lymphadenopathy. ACT 112: Negative or not required by law. Electronically signed by: Uziel Nieto M.D. 08/20/2023 12:46 PM
--- NOTE | 2023-08-20 13:54 | Emergency Department Note ---
History of Present Illness General Chief Complaint: Shortness of Breath/Dyspnea Time Seen by Provider: 08/20/23 09:52 History of Present Illness Provider Complaint: shortness of breath and cough Onset (ago): week(s) (1) Severity: moderate Consistency/Duration: + progressively worsening Relieved By: + oxygen and + upright position Exacerbated By: + lying flat, + exertion, + movement and + coughing Known history of: congestive heart failure Associated symptoms: + cough, + orthopnea and + chest congestion; no wheezing, no sputum production, no polyuria, no paresthesias, no hemoptysis, no nausea/vomiting, no syncope or no abdominal pain Related Data Home oxygen amount: none Home Medications Medication Instructions Recorded Confirmed Type apixaban 5 mg tablet (Eliquis) 5 mg PO BID 06/25/20 08/20/23 History atorvastatin 40 mg tablet 40 mg PO DAILY 06/25/20 08/20/23 History liraglutide 0.6 mg/0.1 mL (18 mg/3 1.2 mg subcut DAILY 09/30/21 08/20/23 History mL) subcutaneous pen injector (Amtec 2-Jed) ondansetron 8 mg disintegrating 8 mg PO Q8H PRN Nausea 09/30/21 08/20/23 History tablet prochlorperazine maleate 10 mg 10 mg PO Q6H PRN nausea 09/30/21 08/20/23 History tablet polyethylene glycol 3350 17 gram 17 g PO DAILY PRN constipation #15 10/05/21 08/20/23 Rx oral powder packet (Miralax) ea nitroglycerin 0.4 mg sublingual 0.4 mg sublingual .Q 5 MIN PRN 11/01/21 08/20/23 History tablet Chest Pain omega-3 fatty acids 1,000 mg 1,000 mg PO BID 04/15/22 08/20/23 History capsule docusate sodium 100 mg capsule 100 mg PO BID PRN Constipation 04/22/22 08/20/23 History (Colace) gabapentin 300 mg capsule 300 mg PO AMHS 04/22/22 08/20/23 History mecobalamin (vitamin B12) 1,000 1,000 mcg PO DAILY 04/22/22 08/20/23 History mcg chewable tablet (B12 Active) morphine 15 mg immediate release 15 mg PO Q4H PRN Pain 04/22/22 08/20/23 History tablet calcium carbonate 600 mg-vitamin 1 tab PO BID 11/04/22 08/20/23 History D3 10 mcg (400 unit) tablet (Calcium 600 + D(3)) digoxin 125 mcg (0.125 mg) tablet 125 mcg PO Q OTHER DAY 11/04/22 08/20/23 History lenalidomide 10 mg capsule 10 mg PO DIRECTED 11/04/22 08/20/23 History (Revlimid) potassium chloride 20 mEq 20 meq PO BID 11/04/22 08/20/23 History tablet,extended release(part/cryst) sennosides 8.6 mg tablet (senna) 17.2 mg PO HS PRN Constipation 11/04/22 08/20/23 History insulin aspart U-100 100 unit/mL 15 unit subcut TIDM 12/31/22 08/20/23 History (3 mL) subcutaneous pen (Novolog FlexPen U-100 Insulin aspart) insulin glargine 100 unit/mL (3 45 unit subcut QPM 12/31/22 08/20/23 History mL) subcutaneous pen (Basaglar KwikPen U-100 Insulin) dexamethasone 4 mg tablet 20 mg PO WK 06/25/23 08/20/23 History mirtazapine 30 mg tablet 30 mg PO HS 06/25/23 08/20/23 History omeprazole 20 mg capsule,delayed 20 mg PO QAM 06/25/23 08/20/23 History release linaclotide 145 mcg capsule 145 mcg PO DAILY 07/28/23 08/20/23 History (Linzess) furosemide 20 mg tablet (Lasix) 20 mg PO UD #30 tabs 07/29/23 08/20/23 Rx metoprolol succinate 25 mg 25 mg PO DAILY 08/20/23 08/20/23 History tablet,extended release 24 hr metoprolol succinate 50 mg 50 mg PO BID 08/20/23 08/20/23 History tablet,extended release 24 hr (Toprol XL) Allergies Allergy/AdvReac Type Severity Reaction Status Date / Time tizanidine Allergy Unknown UNKNOWN--ON Verified 08/20/23 08:20 [facility] MED LIST Past Med/Surg History Medical History Interstitial lung disease PAF (paroxysmal atrial fibrillation) Diabetic ulcer of left foot Chronic deep vein thrombosis (DVT) Diarrhea Pneumonia CHI (closed head injury) NSTEMI (non-ST elevated myocardial infarction) ABDI (acute kidney injury) History of pilonidal cyst Pacemaker History of basal cell carcinoma History of melanoma in situ Hallux rigidus of left foot "S/p multiple surgeries" HLD (hyperlipidemia) CAD (coronary artery disease) Type 2 diabetes mellitus Surgical History Status post total hip replacement, left History of bone marrow biopsy History of cataract surgery S/P CABG x 4 S/P Mohs surgery for basal cell carcinoma History of foot surgery Family History Mother Lymphoma Social History Smoking Status: Former smoker Tobacco Type: Cigarettes Second Hand Exposure: Yes; Hx Alcohol Use: No Hx Substance Use: No Preferred Language: Persian Communication Ability: Effective Visual Impairment: No Limitations Hearing Ability: Normal [employer] 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 able to assist with care as needed. Feels Safe at Home: Yes Diet: regular Diet Comment: Trying to gain weight caffeine: No during the past year weight has: decreased > 10 lbs Assistive Devices: Cane Physical Exam 2 Vital Signs: Vital Signs - 24 hr 08/20/23 09:35 08/20/23 09:39 08/20/23 09:39 Temperature 37.3 C Temperature Source Oral Pulse Rate 91 H 90 Pulse Rate [Apical ] Pulse Rate from Sp O2 Sensor Respiratory Rate 18 Blood Pressure 126/66 Blood Pressure [Le ft Arm] Blood Pressure Simran n 86 Blood Pressure Simran n [Left Arm] Pulse Oximetry 88 L 87 L Oxygen Delivery Me thod Room Air Nasal Cannula Oxygen Flow Rate 0 Sepsis New/Unexpla ined Change in Men jose Status No Sepsis Action Take n by Nursing No Action Required Oxygen Flow Rate - Titration 3 Pulse Oximetry Pos t Tiitration 95 08/20/23 10:08 08/20/23 10:15 08/20/23 10:30 Temperature Temperature Source Pulse Rate Pulse Rate [Apical ] 81 Pulse Rate from Sp O2 Sensor Respiratory Rate 24 Blood Pressure 119/61 Blood Pressure [Le ft Arm] 136/78 Blood Pressure Simran n 102 Blood Pressure Simran n [Left Arm] 97 Pulse Oximetry 93 Oxygen Delivery Me thod Nasal Cannula Nasal Cannula Oxygen Flow Rate 3 Sepsis New/Unexpla ined Change in Men jose Status Sepsis Action Take n by Nursing Oxygen Flow Rate - Titration Pulse Oximetry Pos t Tiitration 08/20/23 10:30 08/20/23 11:00 08/20/23 11:01 Temperature Temperature Source Pulse Rate 81 84 Pulse Rate [Apical ] Pulse Rate from Sp O2 Sensor 81 Respiratory Rate 27 H 21 Blood Pressure 111/62 Blood Pressure [Le ft Arm] Blood Pressure Simran n 73 Blood Pressure Simran n [Left Arm] Pulse Oximetry 97 Oxygen Delivery Me thod Nasal Cannula Oxygen Flow Rate 3 Sepsis New/Unexpla ined Change in Men jose Status Sepsis Action Take n by Nursing Oxygen Flow Rate - Titration Pulse Oximetry Pos t Tiitration 08/20/23 11:01 08/20/23 11:30 08/20/23 11:30 Temperature Temperature Source Pulse Rate 82 83 Pulse Rate [Apical ] Pulse Rate from Sp O2 Sensor 85 Respiratory Rate 19 24 Blood Pressure 125/52 L Blood Pressure [Le ft Arm] Blood Pressure Simran n 80 Blood Pressure Simran n [Left Arm] Pulse Oximetry 96 Oxygen Delivery Me thod Nasal Cannula Oxygen Flow Rate 2 Sepsis New/Unexpla ined Change in Men jose Status Sepsis Action Take n by Nursing Oxygen Flow Rate - Titration Pulse Oximetry Pos t Tiitration 08/20/23 12:00 08/20/23 12:01 08/20/23 12:01 Temperature Temperature Source Pulse Rate 92 H 82 Pulse Rate [Apical ] Pulse Rate from Sp O2 Sensor 92 H 86 Respiratory Rate 16 23 Blood Pressure 127/77 Blood Pressure [Le ft Arm] Blood Pressure Simran n 97 Blood Pressure Simran n [Left Arm] Pulse Oximetry 93 96 Oxygen Delivery Me thod Nasal Cannula Nasal Cannula Oxygen Flow Rate 2 2 Sepsis New/Unexpla ined Change in Men jose Status Sepsis Action Take n by Nursing Oxygen Flow Rate - Titration Pulse Oximetry Pos t Tiitration 08/20/23 12:30 Temperature Temperature Source Pulse Rate Pulse Rate [Apical ] 84 Pulse Rate from Sp O2 Sensor Respiratory Rate 14 Blood Pressure Blood Pressure [Le ft Arm] 115/65 Blood Pressure Simran n Blood Pressure Simran n [Left Arm] 81 Pulse Oximetry 98 Oxygen Delivery Me thod Nasal Cannula Oxygen Flow Rate 2 Sepsis New/Unexpla ined Change in Men jose Status Sepsis Action Take n by Nursing Oxygen Flow Rate - Titration Pulse Oximetry Pos t Tiitration Physical Exam: Physical Exam HENT: Exam performed. - Head: Normocephalic and atraumatic. EYES: Conjunctivae and EOM are normal. Right eye exhibits no discharge. Left eye exhibits no discharge. No scleral icterus. NECK: Normal range of motion. Neck supple. No JVD present. CV: Normal rate, regular rhythm, normal heart sounds and intact distal pulses. Palpable radial pulses bue. PULM/CHEST: Inspiratory Rales at the bases bilaterally. NEURO: Motor and sensation grossly intact. SKIN: Skin is warm and dry. He is not diaphoretic. PSYCH: normal mood and affect. Behavior is normal. Judgment and thought content normal. Course Course 951: The patient was evaluated in room B4. A complete history and physical exam was performed Cardiac monitoring: An order was placed for continuous cardiac monitoring. The monitor shows a rate of 90 with sinus rhythm interpreted by me Patient was found to be hypoxic on room air supplemental oxygen was applied via nasal cannula which improved the patient's oxygen saturation. 1100: Vital signs stable on supplemental oxygen via nasal cannula. Labs are within normal limits with the exception of a elevated BNP. X-ray reviewed by me appears to have some mild cephalization with some mild cardiomegaly. Formal radiology read states that there is an infiltrate. Patient is not thought to have infectious cause of his hypoxia as he has normal white blood cell count is not reporting any fevers. Lasix ordered for the patient. [facility]. Administered Medications Discontinued Medications Furosemide (Furosemide 40 Mg/4 Ml Vial) 40 mg IV ONE ONE Stop: 08/20/23 11:01 Last Admin: 08/20/23 11:18 Dose: 40 mg Documented By: MARISELA Medical Decision Making Laboratory Data Attestation: I reviewed the patient's lab results. 08/20/23 10:10 08/20/23 10:10 Lab Results 08/20/23 08/20/23 08/20/23 Range/Units 10:10 10:20 11:55 WBC 11.02 H (4.8-10.8) K/ul RBC 3.06 L (4.70-6.10) M/uL Hgb 9.3 L (14.0-18.0) g/dl Hct 28.5 L (42.0-52.0) % MCV 93.1 (80.0-100.0) fL MCH 30.4 (25.0-34.0) pg MCHC 32.6 (32.0-36.0) g/dL RDW Std Deviation 57.0 H (36.4-46.3) fL RDW Coeff of Collin 17.0 H (11.5-14.5) % Plt Count 140 (130-400) K/uL MPV 10.6 (9.4-12.4) fL Immature Gran % (Auto) 0.5 % Neut % (Auto) 90.4 % Lymph % (Auto) 3.3 % [place] % (Auto) 5.7 % Eos % (Auto) 0.0 % Baso % (Auto) 0.1 % Neut # (Auto) 9.97 H (1.40-6.50) K/uL Lymph # (Auto) 0.36 L (1.20-3.40) K/uL [place] # (Auto) 0.63 H (0.11-0.59) K/uL Eos # (Auto) 0.00 (0.00-0.50) K/uL Baso # (Auto) 0.01 (0.00-0.20) K/uL Immature Gran # (Auto) 0.05 (0.01-0.20) K/uL Polychromasia 1+ Tear Drop Cells 2+ Ovalocytes 1+ PT 12.3 H (9.0-12.0) Seconds INR 1.1 (0.9-1.1) APTT 28.8 (21.0-31.0) Seconds PTT Ratio 1.0 VBG pH 7.37 (7.36-7.41) VBG pCO2 41 (38-50) mmHg VBG pO2 22 mmHg VBG HCO3 24 mmol/L VBG O2 Saturation < 60.0 % VBG Base Excess -1.5 mEq/L Sodium 134 L (136-145) mmol/L Potassium 4.5 (3.5-5.1) mmol/L Chloride 103 (98-107) mmol/L Carbon Dioxide 22 (21-32) mmol/L Anion Gap 9 (3-11) BUN 20 (6-23) mg/dl Creatinine 1.35 (0.6-1.4) mg/dl Est Cr Clr Drug Dosing 44.7 ml/min Est GFR ( Amer) 58.3 ml/min Est GFR (Non-Af Amer) 50.3 ml/min BUN/Creatinine Ratio 14.8 (10-20) Glucose 98 (70-99(Fasting)) mg/dl Calcium 9.2 (8.6-10.3) mg/dl Troponin I High Sens 18.8 (0-20) pg/ml C-Reactive Protein 4.77 H (0-0.5) mg/dl B-Natriuretic Peptide 258 H (0-100) pg/ml Lipase 10 L (11-82) U/L Procalcitonin 0.14 (0-0.5) ng/ml SARS-CoV-2, RNA, NAAT NEGATIVE (NEGATIVE) Imaging Data Attestation: I personally reviewed and interpreted this imaging study as follows: My Impression: Chest x-ray: Cardiomegaly with mild cephalization Radiologist's Impression: XR chest 1V portable CLINICAL HISTORY: Chest pain, nonspecific COMPARISON STUDY: Chest CT July 06, 2023. Chest radiograph July 28, 2023. FINDINGS: Left subclavian pacer is in place. There are median sternotomy wires and mediastinal surgical clips. There is no pneumothorax. No definite pleural effusion. Right upper lung airspace opacity is again noted. There is also minimal right midlung opacity. Findings are similar to prior exam. No consolidation within the left lung is noted. Underlying emphysema is better depicted on prior chest CT. IMPRESSION: Persistent mild right upper and midlung airspace opacities, similar to prior exam. The findings may reflect resolving pneumonia however continued imaging follow-up is recommended to ensure resolution. ACT 112: Negative or not required by law. Electronically signed by: Raghu Mcgowan M.D. 08/20/2023 10:20 AM Dictated: 08/20/23 1017 Transcribed: 08/20/23 1017 ECG Data Attestation: I personally reviewed and interpreted this ECG as follows: Interpretation: Sinus rhythm with a rate of 87. SC QRS and QTc intervals within normal limits. No ST elevation or ST depression. T wave inversion in leads I and aVF V4 V5 V6. [facility] Narrative 0952: The patient was evaluated in room B4. A complete history and physical exam was performed Cardiac monitoring: An order was placed for continuous cardiac monitoring. The monitor shows a rate of 90 with sinus rhythm interpreted by me Patient was found to be hypoxic on room air supplemental oxygen was applied via nasal cannula which improved the patient's oxygen saturation. 1100: Vital signs stable on supplemental oxygen via nasal cannula. Labs are within normal limits with the exception of a elevated BNP. X-ray reviewed by me appears to have some mild cephalization with some mild cardiomegaly. Formal radiology read states that there is an infiltrate. Patient is not thought to have infectious cause of his hypoxia as he has normal white blood cell count is not reporting any fevers. Lasix ordered for the patient. [facility]. Impression & Plan Hypoxia, Chronic heart failure with reduced ejection fraction and diastolic dysfunction Critical Care Time Critical Care Time: Yes Total Critical Care Time: 59 I have personally spent greater than 59 minutes of critical care time in the direct management of this patient. This includes bedside care, interpretation of diagnostic studies, and testing, discussion with consultants, patient, and family members, and other required patient management activities. This 59 minutes is in excess of all separately billable procedures. Discharge Plan Visit Data Chief Complaint: Shortness of Breath/Dyspnea ED Provider: Roney Cope Discharge Problem: Hypoxia, Chronic heart failure with reduced ejection fraction and diastolic dysfunction Patient Disposition: Admitted As Inpatient Forms Stand Alone Forms: My [facility] Prescriptions Prescriptions: No Action atorvastatin 40 mg tablet 40 mg PO DAILY Eliquis 5 mg tablet 5 mg PO BID insulin glargine [Basaglar KwikPen U-100 Insulin] 100 unit/mL (3 mL) insulin pen 45 unit SUBCUT QPM omega-3 fatty acids 1,000 mg Capsule 1,000 mg PO BID sennosides [senna] 8.6 mg Tablet 17.2 mg PO HS PRN (Reason: Constipation) digoxin 125 mcg (0.125 mg) tablet 125 mcg PO Q OTHER DAY lenalidomide [Revlimid] 10 mg capsule 10 mg PO DIRECTED Rx Instructions: TAKES FOR 21 DAYS THEN OFF FOR 7 DAYS - off right now calcium carbonate-vitamin D3 [Calcium 600 + D(3)] 600 mg-10 mcg (400 unit) Tablet 1 tab PO BID potassium chloride 20 mEq tablet,ER particles/crystals 20 meq PO BID prochlorperazine maleate 10 mg Tablet 10 mg PO Q6H PRN (Reason: nausea) ondansetron 8 mg Tablet,Disintegrating 8 mg PO Q8H PRN (Reason: Nausea) Victoza 2-Jed 0.6 mg/0.1 mL (18 mg/3 mL) Pen Injector 1.2 mg SUBCUT DAILY polyethylene glycol 3350 [Miralax] 17 gram Powder In Packet 17 g PO DAILY PRN (Reason: constipation) Qty: 15 0RF nitroglycerin 0.4 mg tablet, sublingual 0.4 mg sublingual .Q 5 MIN MDD 3 doses in 15 min PRN (Reason: Chest Pain) insulin aspart U-100 [Novolog FlexPen U-100 Insulin] 100 unit/mL (3 mL) insulin pen 15 unit SUBCUT TIDM MDD 60 UNITS Patient Comments: Uses scale to dose Rx Instructions: PLUS CORRECTION OF 1:25 OVER 150. gabapentin 300 mg capsule 300 mg PO AMHS Rx Instructions: BID PER DR 1ST docusate sodium [Colace] 100 mg capsule 100 mg PO BID PRN (Reason: Constipation) morphine 15 mg tablet 15 mg PO Q4H PRN (Reason: Pain) mecobalamin (vitamin B12) [B12 Active] 1,000 mcg Tablet,Chewable 1,000 mcg PO DAILY dexamethasone 4 mg tablet 20 mg PO WK Rx Instructions: Tuesdays, chemotherapy on hold mirtazapine 30 mg tablet 30 mg PO HS omeprazole 20 mg capsule,delayed release(DR/EC) 20 mg PO QAM Linzess 145 mcg capsule 145 mcg PO DAILY furosemide [Lasix] 20 mg tablet 20 mg PO UD Qty: 30 0RF Rx Instructions: 3 times a week--on Wednesday, Wednesday and Wednesday only metoprolol succinate [Toprol XL] 50 mg tablet extended release 24 hr 50 mg PO BID Rx Instructions: Take Metoprolol 75mg QAM and 50mg QPM metoprolol succinate 25 mg tablet extended release 24 hr 25 mg PO DAILY Rx Instructions: Take Metoprolol 75mg QAM and 50mg QPM Referrals Referrals: Landen Macario, [Primary Care Provider] -
[2023-08-20 13:56] LABS: Adenovirus PCR Not Detected (NotDetected); Bordetella parapertussis PCR Not Detected (NotDetected); Bordetella pertussis PCR Not Detected (NotDetected); Chlamydia pneumoniae PCR Not Detected (NotDetected); Coronavirus 229E PCR Not Detected (NotDetected); Coronavirus CoV-2 (COVID19)PCR Not Detected (NotDetected); Coronavirus HKU1 PCR Not Detected (NotDetected); Coronavirus NL63 PCR Not Detected (NotDetected); Coronavirus OC43PCR Not Detected (NotDetected); Human Metapneumovirus PCR Not Detected (NotDetected); Influenza A PCR Not Detected (NotDetected); Influenza B PCR Not Detected (NotDetected); Mycoplasma pneumoniae PCR Not Detected (NotDetected); Parainfluenza Virus 1 PCR Not Detected (NotDetected); Parainfluenza Virus 2 PCR Not Detected (NotDetected); Parainfluenza Virus 3 PCR Not Detected (NotDetected); Parainfluenza Virus 4 PCR Not Detected (NotDetected); Respiratory Syncytial VirusPCR Not Detected (NotDetected)
[2023-08-20 14:03] LABS: Rhinovirus/Enterovirus PCR DETECTED (NotDetected)
[2023-08-20] MEDS ORDERED: GLUCOSE 40% GEL 15 GM TUBE PO PRN (15:25)
[2023-08-20] MEDS ORDERED: POLYETHYLENE (MIRALAX) 17 GM PACK PO PRN (15:25)
[2023-08-20] MEDS ORDERED: CARBOHYDRATES FOR HYPOGLYCEMIA PO PRN (15:25)
[2023-08-20] MEDS ORDERED: DEXTROSE 50% 50 ML SYRINGE IV PRN (15:25)
[2023-08-20] MEDS ORDERED: GLUCAGON FOR INJ 1 MG VIAL SQ PRN (15:25)
[2023-08-20] MEDS ORDERED: DOCUSATE SODIUM 100 MG CAP PO PRN (15:25)
[2023-08-20] MEDS ORDERED: GLUCOSE 10 TAB/TUBE PO PRN (15:25)
[2023-08-20] MEDS ORDERED: PIPER/TAZO 4.5g in D5W MINI-B 100 ML IV ONE (15:45)
--- NOTE | 2023-08-20 15:52 | Pulmonary Consultation ---
Date of Consultation August 20, 2023 Assessment & Plan (1) Hypoxia: (2) Pneumonia: Laterality: right Lung location: upper lobe of lung Pneumonia type: due to unspecified organism Qualified Code(s): J18.9 - Pneumonia, unspecified organism Plan 78-year-old male with a history of multiple myeloma, paroxysmal atrial and ischemic cardiomyopathy presenting to the hospital due to shortness of breath and cough. Serial CTs chest scans noted. He has a bandlike soft tissue density noted in the right upper lobe with bullous emphysema in the right upper lobe. Diffuse tree-in-bud opacities noted in the lower lobes bilaterally with early stages of subpleural honeycombing. Differential is broad including pulmonary toxicity related to her myeloma medications, aspiration pneumonitis, connective tissue disorder related ILD and subacute infection such as TRIP. Subacute to chronic infection such as nontuberculous Mycobacterium (MAC organisms and others) quite high on the list of differentials given the radiographic picture and history. We will order AFB sputum cultures. Patient poor candidate for bronchoscopy given severe comorbidities at baseline and underlying systolic heart failure. Start pulmonary toilet with hypertonic saline and percussive vest therapy. Continue broad-spectrum antibiotics and nebulizers as needed. Recommend ID consultation. Thanks for the consult. We will follow. Plan of care discussed with the bedside RN and patient who are in agreement. History of Present Illness Reason for Consultation: 78-year-old male with a history of asthma atrial fibrillation, multiple myeloma, hyperlipidemia and CHF presenting to the hospital due to shortness of breath. Attending Physician: Heriberto Mcgee MD History of Present Illness Reports increased shortness of breath and cough with yellow sputum over the last 2 to 3 days. No fevers, chills or night sweats. Patient is normally ambulatory at home and dependent. He lives with his . Appetite has been poor. He smoked approximately 20 pack years and quit in 1979. Received IV Lasix in the ER and placed on oxygen. Serial CT chest scans personally reviewed along with radiologic interpretations. CT chest from today reviewed as well. Multifocal tree-in-bud opacities noted predominantly in the lower lung ochoa with subpleural honeycombing. Bullous emphysematous changes noted in the upper lobes, predominantly in the right upper lobe. Right apical consolidation/fibrosis noted. He was found to have rhinovirus on respiratory virus panel. Patient with numerous hospital readmissions noted with similar chief complaints. Started on Zosyn and doxycycline by the hospitalist service. Allergies Allergy/AdvReac Type Severity Reaction Status Date / Time tizanidine Allergy Unknown UNKNOWN--ON Verified 08/20/23 08:20 [facility] Home Medications Medication Instructions Recorded Confirmed Type apixaban 5 mg tablet (Eliquis) 5 mg PO BID 06/25/20 08/20/23 History atorvastatin 40 mg tablet 40 mg PO DAILY 06/25/20 08/20/23 History liraglutide 0.6 mg/0.1 mL (18 mg/3 1.2 mg subcut DAILY 09/30/21 08/20/23 History mL) subcutaneous pen injector (Victoza 2-Jed) ondansetron 8 mg disintegrating 8 mg PO Q8H PRN Nausea 09/30/21 08/20/23 History tablet prochlorperazine maleate 10 mg 10 mg PO Q6H PRN nausea 09/30/21 08/20/23 History tablet polyethylene glycol 3350 17 gram 17 g PO DAILY PRN constipation #15 10/05/21 08/20/23 Rx oral powder packet (Miralax) ea nitroglycerin 0.4 mg sublingual 0.4 mg sublingual .Q 5 MIN PRN 11/01/21 08/20/23 History tablet Chest Pain omega-3 fatty acids 1,000 mg 1,000 mg PO BID 04/15/22 08/20/23 History capsule docusate sodium 100 mg capsule 100 mg PO BID PRN Constipation 04/22/22 08/20/23 History (Colace) gabapentin 300 mg capsule 300 mg PO AMHS 04/22/22 08/20/23 History mecobalamin (vitamin B12) 1,000 1,000 mcg PO DAILY 04/22/22 08/20/23 History mcg chewable tablet (B12 Active) morphine 15 mg immediate release 15 mg PO Q4H PRN Pain 04/22/22 08/20/23 History tablet calcium carbonate 600 mg-vitamin 1 tab PO BID 11/04/22 08/20/23 History D3 10 mcg (400 unit) tablet (Calcium 600 + D(3)) digoxin 125 mcg (0.125 mg) tablet 125 mcg PO Q OTHER DAY 11/04/22 08/20/23 History lenalidomide 10 mg capsule 10 mg PO DIRECTED 11/04/22 08/20/23 History (Revlimid) potassium chloride 20 mEq 20 meq PO BID 11/04/22 08/20/23 History tablet,extended release(part/cryst) sennosides 8.6 mg tablet (senna) 17.2 mg PO HS PRN Constipation 11/04/22 08/20/23 History insulin aspart U-100 100 unit/mL 15 unit subcut TIDM 12/31/22 08/20/23 History (3 mL) subcutaneous pen (Novolog FlexPen U-100 Insulin aspart) insulin glargine 100 unit/mL (3 45 unit subcut QPM 12/31/22 08/20/23 History mL) subcutaneous pen (Basaglar KwikPen U-100 Insulin) dexamethasone 4 mg tablet 20 mg PO WK 06/25/23 08/20/23 History mirtazapine 30 mg tablet 30 mg PO HS 06/25/23 08/20/23 History omeprazole 20 mg capsule,delayed 20 mg PO QAM 06/25/23 08/20/23 History release linaclotide 145 mcg capsule 145 mcg PO DAILY 07/28/23 08/20/23 History (Linzess) furosemide 20 mg tablet (Lasix) 20 mg PO UD #30 tabs 07/29/23 08/20/23 Rx metoprolol succinate 25 mg 25 mg PO DAILY 08/20/23 08/20/23 History tablet,extended release 24 hr metoprolol succinate 50 mg 50 mg PO BID 08/20/23 08/20/23 History tablet,extended release 24 hr (Toprol XL) Patient History Medical History Interstitial lung disease PAF (paroxysmal atrial fibrillation) Diabetic ulcer of left foot Chronic deep vein thrombosis (DVT) Diarrhea Pneumonia CHI (closed head injury) NSTEMI (non-ST elevated myocardial infarction) ABDI (acute kidney injury) History of pilonidal cyst Pacemaker History of basal cell carcinoma History of melanoma in situ Hallux rigidus of left foot "S/p multiple surgeries" HLD (hyperlipidemia) CAD (coronary artery disease) Type 2 diabetes mellitus Surgical History Status post total hip replacement, left History of bone marrow biopsy History of cataract surgery S/P CABG x 4 S/P Mohs surgery for basal cell carcinoma History of foot surgery Family History Mother Lymphoma Social History Smoking Status: Former smoker Tobacco Type: Cigarettes Second Hand Exposure: Yes; Hx Alcohol Use: No Hx Substance Use: No Preferred Language: Kinyarwanda Communication Ability: Effective Visual Impairment: No Limitations Hearing Ability: Normal Preschool Adviser Required: No Beliefs That Will Affect Care: None marital status: Current Living Situation: Spouse Current Living Situation Comment: home current occupational status: retired How many Children do You have: 1 How many Children do You have Comment: Magi lives in [facility]. able to assist with care as needed. Feels Safe at Home: Yes Safety Concerns: Feels Safe At This Time Diet: regular Diet Comment: Trying to gain weight caffeine: No during the past year weight has: decreased > 10 lbs Assistive Devices: Cane, Glasses and Other Assistive Devices Comment: Upper plate Review of Systems Review of Systems: All systems reviewed & are unremarkable except as noted in HPI & below Physical Exam Physical Exam: Constitutional: Patient appears to be of their stated age. Frail and thin appearing. Nasal cannula in place. Eyes: Pupils are equal round and reactive to light. Conjunctivae are normal. Anicteric sclera. Ears nose, mouth and throat: Deferred. Neck: Trachea is midline. Visual inspection is normal. Respiratory: Clear to auscultation bilaterally. Prolonged phase of exhalation. No increased work of breathing. Cardiovascular: Regular rate and rhythm. No murmurs. No edema. Gastrointestinal: Normal bowel sounds, soft, nontender and nondistended. No hepatosplenomegaly noted. Musculoskeletal: No cyanosis. Patient is able to move all extremities. Strength is 5 out of 5 in the upper and lower extremities. Skin: No rashes, warm dry and intact. Neurologic: No obvious focal neurological deficits seen. Psychiatric: Alert and oriented x3 with a euthymic affect. Results & Data Results & Data Vital Signs (Past 12 Hours) Vital Signs Temp Pulse Pulse Pulse Resp BP BP 08/20/23 15:44 37.5 C 81 17 08/20/23 14:30 83 14 102/59 L 08/20/23 12:30 84 14 115/65 08/20/23 12:01 82 23 08/20/23 12:01 127/77 08/20/23 12:00 92 H 16 08/20/23 11:30 125/52 L 08/20/23 11:30 83 24 08/20/23 11:01 82 19 08/20/23 11:01 111/62 08/20/23 11:00 84 21 08/20/23 10:30 81 27 H 08/20/23 10:30 119/61 08/20/23 10:15 81 24 136/78 08/20/23 10:08 08/20/23 09:39 08/20/23 09:39 37.3 C 90 18 126/66 08/20/23 09:35 91 H BP Pulse Ox O2 Del Method O2 Flow Rate 08/20/23 15:44 108/68 94 Nasal Cannula 2 08/20/23 14:30 94 Nasal Cannula 2 08/20/23 12:30 98 Nasal Cannula 2 08/20/23 12:01 96 Nasal Cannula 2 08/20/23 12:01 08/20/23 12:00 93 Nasal Cannula 2 08/20/23 11:30 08/20/23 11:30 96 Nasal Cannula 2 08/20/23 11:01 08/20/23 11:01 08/20/23 11:00 08/20/23 10:30 97 Nasal Cannula 3 08/20/23 10:30 08/20/23 10:15 93 Nasal Cannula 3 08/20/23 10:08 Nasal Cannula 08/20/23 09:39 87 L Nasal Cannula 0 08/20/23 09:39 88 L Room Air 08/20/23 09:35 PG Care Time/CCT Total # of Minutes Spent Total Time Spent with Patient: Total time spent is greater than 50% in coordination of care (as documented) at patient's floor/unit and/or counseling patient: Coding Level of Care Code 31669 INT INP/OBS CARE 3/75MIN Diagnoses Hypoxia R09.02 Pneumonia J18.9 Laterality: right Lung location: upper lobe of lung Pneumonia type: due to unspecified organism
[2023-08-20] MEDS: DOXYCYCLINE HYCLATE 100 MG CAP PO SCH ×2 (17:17→21:00)
[2023-08-20] MEDS: INSULIN ASPART PER UNIT CHARGE SC SCH ×2 (18:29→21:04)
[2023-08-20] MEDS: SODIUM CHLOR 7% 4 ML NEB NEB SCH (19:49)
--- NOTE | 2023-08-20 20:33 | Electrocardiogram Report ---
Test Reason : Blood Pressure : / mmHG Vent. Rate : 087 BPM Atrial Rate : 087 BPM P-R Int : 198 ms QRS Dur : 094 ms QT Int : 352 ms P-R-T Axes : 046 080 143 degrees QTc Int : 423 ms Normal sinus rhythm Abnormal ECG When compared with ECG of 29-JUL-2023 06:38, Sinus rhythm has replaced Electronic atrial pacemaker T wave inversion now evident in Inferior leads T wave inversion now evident in Lateral leads Confirmed by Mariano Ahn ([id number]) on 08/20/2023 8:32:38 PM Referred By: REFERRED SELF Confirmed By:Marv Ahn
[2023-08-20] MEDS: MoRPHine SULFATE IR 15 MG TAB (IMMEDIATE RELEASE) PO PRN (20:59)
[2023-08-20] MEDS: PIPERACILLIN/TAZOBACTAM 4.5 GM in DEXTROSE 5% MINI-B 100 ML IV SCH (21:00)
[2023-08-20] MEDS ORDERED: METOPROLOL SUCC 50MG EXT REL TAB PO SCH (21:00)
[2023-08-20] MEDS: MELATONIN 3 MG TAB PO PRN (21:00)
[2023-08-20] MEDS: APIXABAN 5 MG TABLET PO SCH (21:01)
[2023-08-20] MEDS: GABAPENTIN 300 MG CAP PO SCH (21:01)
[2023-08-20] MEDS: MIRTAZAPINE TAB 15 MG TAB PO SCH (21:01)
[2023-08-20] MEDS: METOPROLOL SUCC 50MG EXT REL TAB PO SCH (21:02)
[2023-08-20] MEDS: POTASSIUM CHLORIDE CRTAB 20 MEQ TABCR PO SCH (21:03)
[2023-08-20] MEDS ORDERED: ALBUMIN 25% 25 GM/100 ML VIAL IV ONE (22:49)
--- NOTE | 2023-08-20 22:52 | Communication Note ---
Date of Service: August 20, 2023 Patient lightheaded and dizzy on orthostatic vitals check. SBP 80s. Serum sodium 128 Serum creatinine 1.4 from 1.3 in a.m. AP Hypotension, hyponatremia, ARF Possible overdiuresis Hold diuretic regimen for now Baseline UA Monitor creatinine response to gentle IV hydration
[2023-08-20 23:55] LABS: BUN Creatinine Ratio 15.6 (10-20); Calcium 8.4 mg/dl (8.6-10.3); Est GFR (African American) 52.6 ml/min; Est GFR (Non-African American) 45.4 ml/min; Potassium 3.6 mmol/L (3.5-5.1)
[2023-08-21] MEDS ORDERED: SODIUM CHLORIDE 0.9% 500 ML IV ONE (00:31)
[2023-08-21 01:18] LABS: Thyroid Stimulating Hormone 0.721 uIu/ml (0.300-4.500)
[2023-08-21 05:44] LABS: Hematocrit (blood only) 26.1 % (42.0-52.0); Hemoglobin 8.6 g/dl (14.0-18.0); Mean Corpuscular Hemoglobin 30.6 pg (25.0-34.0); Mean Corpuscular Volume 92.9 fL (80.0-100.0); Mean Platelet Volume 11.5 fL (9.4-12.4); Platelet Count 130 K/uL (130-400); RDW Coefficient of Variation 16.8 % (11.5-14.5); RDW Standard Deviation 55.6 fL (36.4-46.3); Red Blood Count 2.81 M/uL (4.70-6.10); White Blood Count 7.15 K/ul (4.8-10.8)
[2023-08-21] MEDS: PIPERACILLIN/TAZOBACTAM 4.5 GM in DEXTROSE 5% MINI-B 100 ML IV SCH ×3 (05:59→21:01)
[2023-08-21 06:42] LABS: BUN Creatinine Ratio 13.5 (10-20); Calcium 8.5 mg/dl (8.6-10.3); Est GFR (African American) 55.3 ml/min; Est GFR (Non-African American) 47.7 ml/min; Potassium 3.6 mmol/L (3.5-5.1)
[2023-08-21] MEDS: SODIUM CHLOR 7% 4 ML NEB NEB SCH ×2 (07:48→19:19)
[2023-08-21] MEDS: METOPROLOL SUCC 50MG EXT REL TAB PO SCH ×2 (08:25→21:01)
[2023-08-21] MEDS: DOXYCYCLINE HYCLATE 100 MG CAP PO SCH ×2 (08:25→21:00)
[2023-08-21] MEDS: LINACLOTIDE 145 MCG CAPSULE PO SCH (08:26)
[2023-08-21] MEDS: GABAPENTIN 300 MG CAP PO SCH ×2 (08:26→21:01)
[2023-08-21] MEDS: ATORVASTATIN 40 MG TAB PO SCH (08:26)
[2023-08-21] MEDS: POTASSIUM CHLORIDE CRTAB 20 MEQ TABCR PO SCH ×2 (08:26→21:00)
[2023-08-21] MEDS: APIXABAN 5 MG TABLET PO SCH ×2 (08:26→21:00)
[2023-08-21] MEDS: PANTOprazole 40 MG TAB PO SCH (08:26)
[2023-08-21] MEDS ORDERED: METOPROLOL SUCC 25MG EXT REL TAB PO SCH (09:00)
[2023-08-21 09:06] LABS: Appearance Urine Clear (Clear); Bacteria Urine Automated Negative (Negative); Bilirubin Urine Negative (Negative); Blood Urine 3+ (Negative); Cast Urine Automated 0 /lpf (0-5); Color Urine Yellow; Epithelial Cell Urine Auto 0-5 /lpf (0-5); Glucose Urine UA Negative (Negative); Ketones Urine Negative (Negative); Leukocyte Esterase Urine Negative (Negative); Nitrite Urine Negative (Negative); Protein Urine Trace (Negative); RBC Urine Automated 0-4 /hpf (0-4); Specific Gravity Urine 1.011 (1.000-1.030); Urobilinogen Urine Negative (Negative); pH Urine 5.5 (4.5-7.5)
[2023-08-21] MEDS: INSULIN ASPART PER UNIT CHARGE SC SCH ×4 (09:06→21:01)
[2023-08-21] MEDS ORDERED: BENZONATATE 100 MG CAPSULE PO PRN (09:31)
[2023-08-21] MEDS ORDERED: ONDANSETRON INJ 2 MG/ML 2 ML VIAL IV SCH (13:45)
[2023-08-21] MEDS: IPRATROPIUM BROMIDE NEB SOLN 0.02% 2.5 ML VIAL INH SCH ×2 (13:57→19:19)
[2023-08-21] MEDS: LEVALBUTEROL HCL 0.63 MG/3 ML NEB NEB SCH ×2 (13:57→19:19)
--- NOTE | 2023-08-21 14:29 | Pulmonology Progress Note ---
Date of Service August 21, 2023 Assessment & Plan (1) Hypoxia: (2) Pneumonia: Laterality: right Lung location: upper lobe of lung Pneumonia type: due to unspecified organism Qualified Code(s): J18.9 - Pneumonia, unspecified organism (3) Immunocompromised: (4) Multiple myeloma: (5) Abnormal CT scan, chest: (6) Congestive heart failure: Plan 78-year-old male with a history of multiple myeloma, paroxysmal atrial and ischemic cardiomyopathy presenting to the hospital due to shortness of breath and cough. Serial CTs chest scans noted. He has a bandlike soft tissue density noted in the right upper lobe with bullous emphysema in the right upper lobe. Diffuse tree-in-bud opacities noted in the lower lobes bilaterally with early stages of subpleural honeycombing. Differential is broad including pulmonary toxicity related to her myeloma medications, aspiration pneumonitis, connective tissue disorder related ILD and subacute infection such as TRIP. Subacute to chronic infection such as nontuberculous Mycobacterium (MAC organisms and others) quite high on the list of differentials given the radiographic picture and history. We will order AFB sputum cultures. Patient poor candidate for bronchoscopy given severe comorbidities at baseline and underlying systolic heart failure. Continue flutter valve, percussive vest therapy, hypertonic saline twice daily. Start Xopenex/Atrovent every 6 hours. We will start the patient on high flow oxygen given desaturations with minimal activity. I ordered a repeat chest x- ray which I personally reviewed. Diffuse mild interstitial markings noted. No signs of pneumothorax or worsening effusion. Minimal right pleural effusion. If hypoxia continues to worsen, recommend trial of IV diuretic therapy given his history of congestive heart failure. Recommend ID consultation. Thanks for the consult. We will follow. Plan of care discussed with the bedside RN, RT, patient and patient who are in agreement. Admission and Anticipated Discharge Date Admission Date: August 20, 2023 Subjective Patient had a good morning with improved respiratory symptoms. This afternoon he got up to urinate and became quite short of breath. He had escalating oxygen requirements. He is being placed on high flow nasal cannula. He has a cough and is able to produce a little bit of sputum. Denies hemoptysis. No chest pain. He has shortness of breath with minimal exertion. No fevers or chills. Currently saturating 94% on 8 L of oxygen. Review of Systems Review of Systems: All systems reviewed & are unremarkable except as noted in HPI & below Physical Exam Physical Exam: Constitutional: Patient appears to be of their stated age. Frail and thin appearing. Nasal cannula in place. Eyes: Pupils are equal round and reactive to light. Conjunctivae are normal. Anicteric sclera. Ears nose, mouth and throat: Deferred. Neck: Trachea is midline. Visual inspection is normal. Respiratory: Clear to auscultation bilaterally. Prolonged phase of exhalation. No increased work of breathing. Cardiovascular: Regular rate and rhythm. No murmurs. No edema. Gastrointestinal: Normal bowel sounds, soft, nontender and nondistended. No hepatosplenomegaly noted. Musculoskeletal: No cyanosis. Patient is able to move all extremities. Strength is 5 out of 5 in the upper and lower extremities. Skin: No rashes, warm dry and intact. Neurologic: No obvious focal neurological deficits seen. Psychiatric: Alert and oriented x3 with a euthymic affect. Results & Data Results & Data Vital Signs (Past 12 Hours) Vital Signs Temp Pulse Pulse Resp BP BP Pulse Ox 08/21/23 13:57 18 94 08/21/23 13:32 37.3 C 08/21/23 11:20 37.6 C H 91 H 17 93/51 L 93 08/21/23 09:36 80 08/21/23 09:31 08/21/23 08:13 36.5 C 108 H 20 108/65 91 08/21/23 07:49 104 H 18 96 08/21/23 02:54 36.9 C 78 18 105/51 L 97 O2 Del Method O2 Flow Rate 08/21/23 13:57 Nasal Cannula 8 08/21/23 13:32 08/21/23 11:20 Nasal Cannula 2 08/21/23 09:36 08/21/23 09:31 Nasal Cannula 2 08/21/23 08:13 Nasal Cannula 2 08/21/23 07:49 Nasal Cannula 2 08/21/23 02:54 Nasal Cannula 2 PG Care Time/CCT Total # of Minutes Spent Total Time Spent with Patient: Total time spent is greater than 50% in coordination of care (as documented) at patient's floor/unit and/or counseling patient: Coding Level of Care Code 28273 SUB INP/OBS CARE 3/50MIN Diagnoses Hypoxia R09.02 Pneumonia J18.9 Laterality: right Lung location: upper lobe of lung Pneumonia type: due to unspecified organism Immunocompromised D84.9 Multiple myeloma C90.[address] scan, chest R93.89 Congestive heart failure I50.9
[2023-08-21] MEDS: DIGOXIN 0.125 MG TAB PO SCH (15:17)
--- NOTE | 2023-08-21 15:20 | XRay Report ---
XR chest 1V portable CLINICAL HISTORY: hypoxia TECHNIQUE: Single frontal radiograph of the chest was obtained. Comparison: Comparison is made to chest radiograph 08/20/2023 FINDINGS: Lines and tubes are stable. The cardiomediastinal silhouette is normal. Right upper lung airspace opa city is again seen. No evidence of pleural effusion or pneumothorax. IMPRESSION: Right upper lung airspace opacity is unchanged from prior exam. ACT 112: Negative or not required by law. Electronically signed by: Tacho Lambert M.D. 08/21/2023 3:17 PM
--- NOTE | 2023-08-21 16:12 | Hospitalist Progress Note ---
Date of Service August 21, 2023 Assessment & Plan (1) Hypoxia: (2) Interstitial lung disease: (3) Ischemic cardiomyopathy: (4) Chronic heart failure with reduced ejection fraction and diastolic dysfunction: Plan: Patient presenting from home with reports of shortness of breath x 2 days. Was at the wound care center today and was referred to the ED due to shortness of breath. Enterovirus infection Hypoxia multifactorial Interstitial lung disease, COPD, suspected TRIP, CHF with reduced EF and diastolic dysfunction H/O recent Pneumonia --CT Chest:Multisegmental multilobar dissipation of bilateral tree-in-bud nodules within a mid to lower lung zone predominant distribution compatible with an infectious or inflammatory bronchiolitis/pneumonitis. Emphysema with bibasilar fibrotic changes redemonstrated. Linear area of right apical consolid ation is suggestive of postinflammatory scarring. Attention on follow-up recommended. No pleural effusion or lymphadenopathy. --BioFire positive for enterovirus --Normal procalcitonin --Echo 06/2023-EF 35 to 40%, diastolic dysfunction --BNP 258 (improved from most recent results) -- Sputum cultures pending --Received IV Lasix --Isolation precautions Monitor volume status closely Continue nebs, Zosyn, doxycycline Supplemental oxygen as needed Appreciate pulmonology input Pulmonary hygiene with flutter valve, incentive spirometry Will consider ID evaluation if needed Resume home diuretics as able (5) PAF (paroxysmal atrial fibrillation): Plan: Continue metoprolol, digoxin On Eliquis for anticoagulation (6) Tachy-noman syndrome: Plan: S/P pacemaker Management as above (7) Pacemaker: Plan: Chronic (8) Diabetic ulcer of left foot: Plan: Present on admission Follows with the wound care center Chronic orthostatic hypotension BP usually low Monitor (9) CAD (coronary artery disease): Plan: s/p CABG Continue statin and beta-annika (10) Type 2 diabetes mellitus: Plan: Hgb A1c 6.9 06/2023 Hold home agents and utilize NovoLog per protocol while hospitalized (11) Multiple myeloma: Plan: Follows with Dr. Radha Alves currently on hold DVT Px On Eliquis CODE STATUS DNR/DNI Admission and Anticipated Discharge Date Admission Date: August 20, 2023 Subjective Patient is seen and examined at bedside States having cough with some expectoration associated with shortness of breath Requiring supplemental oxygen to maintain saturations Denies any chest pain, nausea, vomiting, abdominal pain Review of Systems Review of Systems: All systems reviewed & are unremarkable except as noted in Subjective Physical Exam Physical Exam: Physical Exam: Vitals signs as noted above General Appearance:Thin, Frail, no apparent distress Head: normocephalic, Atraumatic Eyes: normal inspection, EOMI Neck: supple, Trachea midline Respiratory/Chest: Decreased breath sounds, CTA, No accessory muscle use Cardiovascular: S1,S2 +murmur Abdomen/GI:Soft, Non tender, Bowel sounds present Extremities/Musculoskeletal:normal inspection, no edema Neurologic/Psych:AAOX3, grossly no focal neurological deficits Skin: normal color, warm Results & Data Results & Data Vital Signs (Past 12 Hours) Vital Signs Temp Pulse Pulse Resp BP BP Pulse Ox 08/21/23 15:51 91 H 08/21/23 15:42 37.0 C 108 H 20 94 08/21/23 15:25 08/21/23 15:24 08/21/23 15:17 108 H 08/21/23 15:02 37.0 C 08/21/23 13:57 18 94 08/21/23 13:32 37.3 C 08/21/23 11:20 37.6 C H 91 H 17 93/51 L 93 08/21/23 09:36 80 08/21/23 09:31 08/21/23 08:13 36.5 C 108 H 20 108/65 91 08/21/23 07:49 104 H 18 96 Pulse Ox O2 Del Method O2 Del Method O2 Flow Rate O2 Flow Rate 08/21/23 15:51 08/21/23 15:42 High Flow Nasal Cannula 8 08/21/23 15:25 96 High Flow Nasal Cannula 8 08/21/23 15:24 Nasal Cannula 2 08/21/23 15:17 08/21/23 15:02 08/21/23 13:57 Nasal Cannula 8 08/21/23 13:32 08/21/23 11:20 Nasal Cannula 2 08/21/23 09:36 08/21/23 09:31 Nasal Cannula 2 08/21/23 08:13 Nasal Cannula 2 08/21/23 07:49 Nasal Cannula 2 Laboratory Results Short CBC 08/21/23 Range/Units 05:02 WBC 7.15 (4.8-10.8) K/ul Hgb 8.6 L (14.0-18.0) g/dl Hct 26.1 L (42.0-52.0) % Plt Count 130 (130-400) K/uL BMP 08/20/23 08/21/23 23:03 05:02 Sodium 128 L 137 D Potassium 3.6 3.6 Chloride 101 103 Carbon Dioxide 21 22 BUN 23 19 Creatinine 1.47 H 1.41 H Glucose 190 H 118 H Calcium 8.4 L 8.5 L Urine 08/21/23 Range/Units 08:35 Urine Color Yellow Urine Appearance Clear (Clear) Urine pH 5.5 (4.5-7.5) Ur Specific Pearce 1.011 (1.000-1.030) Urine Protein Trace H (Negative) Urine Glucose (UA) Negative (Negative)
[2023-08-21] MEDS ORDERED: XOPENEX/ATROVENT 0.63mg/0.5MG NEB COMBO NEB SCH (19:00)
[2023-08-21] MEDS ORDERED: ONDANSETRON INJ 2 MG/ML 2 ML VIAL IV PRN (19:27)
[2023-08-21] MEDS: MIRTAZAPINE TAB 15 MG TAB PO SCH (21:00)
[2023-08-21] MEDS: MELATONIN 3 MG TAB PO PRN (21:00)
[2023-08-21] MEDS: MoRPHine SULFATE IR 15 MG TAB (IMMEDIATE RELEASE) PO PRN (21:00)
[2023-08-22] MEDS: LEVALBUTEROL HCL 0.63 MG/3 ML NEB NEB SCH ×4 (01:24→19:52)
[2023-08-22] MEDS: IPRATROPIUM BROMIDE NEB SOLN 0.02% 2.5 ML VIAL INH SCH ×4 (01:24→19:52)
[2023-08-22 05:23] LABS: Hematocrit (blood only) 24.3 % (42.0-52.0); Hemoglobin 8.2 g/dl (14.0-18.0); Mean Corpuscular Hemoglobin 31.3 pg (25.0-34.0); Mean Corpuscular Hgb Conc 33.7 g/dL (32.0-36.0); Mean Corpuscular Volume 92.7 fL (80.0-100.0); Mean Platelet Volume 10.2 fL (9.4-12.4); Platelet Count 106 K/uL (130-400); RDW Coefficient of Variation 16.6 % (11.5-14.5); Red Blood Count 2.62 M/uL (4.70-6.10); White Blood Count 6.41 K/ul (4.8-10.8)
[2023-08-22 05:27] LABS: Calcium 8.1 mg/dl (8.6-10.3); Creatinine Clr Calc Pharmacy 48.9 ml/min; Est GFR (African American) 66.5 ml/min; Est GFR (Non-African American) 57.4 ml/min; Magnesium 1.9 mg/dl (1.7-2.4); Potassium 3.9 mmol/L (3.5-5.1)
[2023-08-22] MEDS: PIPERACILLIN/TAZOBACTAM 4.5 GM in DEXTROSE 5% MINI-B 100 ML IV SCH ×3 (05:38→21:12)
[2023-08-22] MEDS: SODIUM CHLOR 7% 4 ML NEB NEB SCH ×2 (07:01→19:52)
[2023-08-22] MEDS: POTASSIUM CHLORIDE CRTAB 20 MEQ TABCR PO SCH ×2 (09:02→21:11)
[2023-08-22] MEDS: PANTOprazole 40 MG TAB PO SCH (09:13)
[2023-08-22] MEDS: ATORVASTATIN 40 MG TAB PO SCH (09:13)
[2023-08-22] MEDS: METOPROLOL SUCC 50MG EXT REL TAB PO SCH ×2 (09:14→21:12)
[2023-08-22] MEDS: LINACLOTIDE 145 MCG CAPSULE PO SCH (09:15)
[2023-08-22] MEDS: DOXYCYCLINE HYCLATE 100 MG CAP PO SCH ×2 (09:15→21:10)
[2023-08-22] MEDS: APIXABAN 5 MG TABLET PO SCH ×2 (09:17→21:10)
[2023-08-22] MEDS: GABAPENTIN 300 MG CAP PO SCH ×2 (09:19→21:10)
[2023-08-22] MEDS: INSULIN ASPART PER UNIT CHARGE SC SCH ×4 (09:59→21:11)
--- NOTE | 2023-08-22 11:32 | Pulmonology Progress Note ---
Date of Service August 22, 2023 Assessment & Plan (1) Hypoxia: (2) Pneumonia: Laterality: right Lung location: upper lobe of lung Pneumonia type: due to unspecified organism Qualified Code(s): J18.9 - Pneumonia, unspecified organism (3) Immunocompromised: (4) Multiple myeloma: (5) Abnormal CT scan, chest: (6) Congestive heart failure: Plan 78-year-old male with a history of multiple myeloma, paroxysmal atrial and ischemic cardiomyopathy presenting to the hospital due to shortness of breath and cough. Serial CTs chest scans noted. He has a bandlike soft tissue density noted in the right upper lobe with bullous emphysema in the right upper lobe. Diffuse tree-in-bud opacities noted in the lower lobes bilaterally with early stages of subpleural honeycombing. Differential is broad including pulmonary toxicity related to her myeloma medications, aspiration pneumonitis, connective tissue disorder related ILD and subacute infection such as TRIP. Subacute to chronic infection such as nontuberculous Mycobacterium (MAC organisms and others) quite high on the list of differentials given the radiographic picture and history. 3 AFB sputum cultures ordered to evaluate for TRIP. Culture results pending. May may take up to 6 weeks to finalize. Patient poor candidate for bronchoscopy given severe comorbidities at baseline and underlying systolic heart failure. Continue flutter valve, percussive vest therapy, hypertonic saline twice daily. Continue Xopenex/Atrovent every 6 hours. Repeat chest x-ray 08/21/2023 unchanged from prior. Hypoxemia improved today. Recommend ID consultation given concern for possible TRIP and underlying multiple myeloma on therapy. Thanks for the consult. We will follow. Admission and Anticipated Discharge Date Admission Date: August 20, 2023 Subjective Patient's hypoxemia improved compared to yesterday. He has been weaned down from 8 L to 4 L. Feels that he is less short of breath, but his mobility has been very limited. He mostly remains in bed. He coughs with deep breathing. He denies any significant chest pain except for when he coughs. No fevers, chills or night sweats. Review of Systems Review of Systems: All systems reviewed & are unremarkable except as noted in HPI & below Physical Exam Physical Exam: Constitutional: Patient appears to be of their stated age. Frail and thin appearing. Nasal cannula in place. Eyes: Pupils are equal round and reactive to light. Conjunctivae are normal. Anicteric sclera. Ears nose, mouth and throat: Deferred. Neck: Trachea is midline. Visual inspection is normal. Respiratory: Clear to auscultation bilaterally. Prolonged phase of exhalation. No increased work of breathing. Cardiovascular: Regular rate and rhythm. No murmurs. No edema. Gastrointestinal: Normal bowel sounds, soft, nontender and nondistended. No hepatosplenomegaly noted. Musculoskeletal: No cyanosis. Patient is able to move all extremities. Strength is 5 out of 5 in the upper and lower extremities. Skin: No rashes, warm dry and intact. Neurologic: No obvious focal neurological deficits seen. Psychiatric: Alert and oriented x3 with a euthymic affect. Results & Data Results & Data Vital Signs (Past 12 Hours) Vital Signs Temp Pulse Pulse Resp BP Pulse Ox O2 Del Method 08/22/23 10:36 60 08/22/23 07:42 36.8 C 65 19 102/59 L 95 Nasal Cannula 08/22/23 07:31 99 H 18 99 Nasal Cannula 08/22/23 07:18 High Flow Nasal Cannula 08/22/23 06:28 High Flow Nasal Cannula O2 Flow Rate 08/22/23 10:36 08/22/23 07:42 4 08/22/23 07:31 6 08/22/23 07:18 6 08/22/23 06:28 6 PG Care Time/CCT Total # of Minutes Spent Total Time Spent with Patient: Total time spent is greater than 50% in coordination of care (as documented) at patient's floor/unit and/or counseling patient: Coding Level of Care Code 98574 SUB INP/OBS CARE 2/35MIN Diagnoses Hypoxia R09.02 Pneumonia J18.9 Laterality: right Lung location: upper lobe of lung Pneumonia type: due to unspecified organism Immunocompromised D84.9 Multiple myel[address] C90[address] scan, chest R93.89 Congestive heart failure I50.9
--- NOTE | 2023-08-22 16:57 | Hospitalist Progress Note ---
Date of Service August 22, 2023 Assessment & Plan (1) Hypoxia: (2) Interstitial lung disease: (3) Ischemic cardiomyopathy: (4) Chronic heart failure with reduced ejection fraction and diastolic dysfunction: Plan: Patient presenting from home with reports of shortness of breath x 2 days. Was at the wound care center today and was referred to the ED due to shortness of breath. Enterovirus infection Hypoxia multifactorial Interstitial lung disease, COPD, suspected TRIP, CHF with reduced EF and diastolic dysfunction H/O recent Pneumonia --CT Chest:Multisegmental multilobar dissipation of bilateral tree-in-bud nodules within a mid to lower lung zone predominant distribution compatible with an infectious or inflammatory bronchiolitis/pneumonitis. Emphysema with bibasilar fibrotic changes redemonstrated. Linear area of right apical consolid ation is suggestive of postinflammatory scarring. Attention on follow-up recommended. No pleural effusion or lymphadenopathy. --BioFire positive for enterovirus --Normal procalcitonin --Echo 06/2023-EF 35 to 40%, diastolic dysfunction --BNP 258 (improved from most recent results) -- Sputum cultures pending --Received IV Lasix --Isolation precautions Monitor volume status closely Continue nebs, Zosyn, doxycycline Supplemental oxygen as needed Appreciate pulmonology input Pulmonary hygiene with flutter valve, incentive spirometry Resume home diuretics as able Less supplemental oxygen requirement today We will consult ID tomorrow given suspicion for subacute TRIP Left plantar foot wound infection Follows with wound clinic as outpatient Wound cultures growing Pseudomonas, Enterococcus faecalis Continue Zosyn Continue local wound care Inpatient wound care consulted (5) PAF (paroxysmal atrial fibrillation): Plan: Continue metoprolol, digoxin On Eliquis for anticoagulation (6) Tachy-noman syndrome: Plan: S/P pacemaker Management as above (7) Pacemaker: Plan: Chronic (8) Diabetic ulcer of left foot: Plan: Present on admission Follows with the wound care center Chronic orthostatic hypotension BP usually low Monitor (9) CAD (coronary artery disease): Plan: s/p CABG Continue statin and beta-annika (10) Type 2 diabetes mellitus: Plan: Hgb A1c 6.9 06/2023 Hold home agents and utilize NovoLog per protocol while hospitalized (11) Multiple myeloma: Plan: Follows with Dr. Radha Alves currently on hold DVT Px On Eliquis CODE STATUS DNR/DNI Admission and Anticipated Discharge Date Admission Date: August 20, 2023 Subjective Patient is seen and examined at bedside Subjectively feels breathing, cough slightly worse today Less supplemental oxygen requirement today Denies any chest pain, nausea, vomiting, abdominal pain Noted left foot wound with discharge Review of Systems Review of Systems: All systems reviewed & are unremarkable except as noted in Subjective Physical Exam Physical Exam: Physical Exam: Vitals signs as noted above General Appearance:Thin, Frail, no apparent distress Head: normocephalic, Atraumatic Eyes: normal inspection, EOMI Neck: supple, Trachea midline Respiratory/Chest: Decreased breath sounds, CTA, No accessory muscle use Cardiovascular: S1,S2 +murmur Abdomen/GI:Soft, Non tender, Bowel sounds present Extremities/Musculoskeletal:normal inspection, no edema Neurologic/Psych:AAOX3, grossly no focal neurological deficits Skin: normal color, warm Results & Data Results & Data Vital Signs (Past 12 Hours) Vital Signs Temp Pulse Pulse Resp BP Pulse Ox Pulse Ox 08/22/23 14:14 74 18 99 08/22/23 13:35 98 08/22/23 11:54 36.7 C 83 20 105/57 L 96 08/22/23 10:36 60 08/22/23 07:42 36.8 C 65 19 102/59 L 95 08/22/23 07:31 99 H 18 99 08/22/23 07:18 08/22/23 06:28 Pulse Ox Pulse Ox O2 Del Method O2 Flow Rate O2 Flow Rate O2 Flow Rate O2 Flow Rate 08/22/23 14:14 Nasal Cannula 4 08/22/23 13:35 98 92 5 5 5 08/22/23 11:54 Nasal Cannula 4 08/22/23 10:36 08/22/23 07:42 Nasal Cannula 4 08/22/23 07:31 Nasal Cannula 6 08/22/23 07:18 High Flow Nasal Cannula 6 08/22/23 06:28 High Flow Nasal Cannula 6 Laboratory Results Short CBC 08/22/23 Range/Units 04:35 WBC 6.41 (4.8-10.8) K/ul Hgb 8.2 L (14.0-18.0) g/dl Hct 24.3 L (42.0-52.0) % Plt Count 106 L (130-400) K/uL BMP 08/22/23 04:35 Sodium 138 Potassium 3.9 Chloride 108 H Carbon Dioxide 22 BUN 17 Creatinine 1.21 Glucose 145 H Calcium 8.1 L
--- NOTE | 2023-08-22 18:15 | Electrocardiogram Report ---
Test Reason : Blood Pressure : / mmHG Vent. Rate : 093 BPM Atrial Rate : 093 BPM P-R Int : 220 ms QRS Dur : 086 ms QT Int : 356 ms P-R-T Axes : 096 081 123 degrees QTc Int : 442 ms Sinus rhythm with 1st degree A-V block Low voltage QRS Abnormal ECG When compared with ECG of 20-AUG-2023 09:33, Nonspecific T wave abnormality has replaced inverted T waves in Inferior leads Nonspecific T wave abnormality now evident in Anterior leads Confirmed by Jalen Fofana ([id number]) on 08/22/2023 6:15:44 PM Referred By: REFERRED SELF Confirmed By:Jalen Fofana
[2023-08-22] MEDS: MELATONIN 3 MG TAB PO PRN (21:10)
[2023-08-22] MEDS: MoRPHine SULFATE IR 15 MG TAB (IMMEDIATE RELEASE) PO PRN (21:10)
[2023-08-22] MEDS: DOCUSATE SODIUM/SENNA 50/8.6MG TAB PO SCH (21:10)
[2023-08-22] MEDS: MIRTAZAPINE TAB 15 MG TAB PO SCH (21:10)
[2023-08-22] MEDS ORDERED: guaiFENesin/CODEINE 100MG/10MG 5ML UDC PO STA (22:33)
[2023-08-22] MEDS ORDERED: ALBUMIN 25% 25 GM/100 ML VIAL IV ONE (23:50)
[2023-08-23 00:45] LABS: Eosinophils # (auto) 0.06 K/uL (0.00-0.50); Hematocrit (blood only) 21.8 % (42.0-52.0); Hemoglobin 7.3 g/dl (14.0-18.0); Immature Granulocytes # (auto) 0.02 K/uL (0.01-0.20); Immature Granulocytes % (auto) 0.3 %; Lymphocytes % (auto) 10.3 %; Mean Corpuscular Hemoglobin 31.7 pg (25.0-34.0); Mean Corpuscular Hgb Conc 33.5 g/dL (32.0-36.0); Mean Corpuscular Volume 94.8 fL (80.0-100.0); Mean Platelet Volume 11.1 fL (9.4-12.4); Monocytes # (auto) 0.48 K/uL (0.11-0.59); Monocytes % (auto) 8.2 %; Neutrophils # (auto) 4.68 K/uL (1.40-6.50); Neutrophils % (auto) 80.2 %; Platelet Count 114 K/uL (130-400); RDW Coefficient of Variation 16.8 % (11.5-14.5); RDW Standard Deviation 56.7 fL (36.4-46.3); White Blood Count 5.84 K/ul (4.8-10.8)
[2023-08-23 00:46] LABS: BUN Creatinine Ratio 18.9 (10-20); Calcium 7.7 mg/dl (8.6-10.3); Creatinine Clr Calc Pharmacy 47.1 ml/min; Est GFR (African American) 65.9 ml/min; Est GFR (Non-African American) 56.8 ml/min; Magnesium 1.8 mg/dl (1.7-2.4)
[2023-08-23 01:02] LABS: Echinocytes 1+; Ovalocytes 1+; Tear Drop Cells 1+
[2023-08-23] MEDS: IPRATROPIUM BROMIDE NEB SOLN 0.02% 2.5 ML VIAL INH SCH ×5 (01:11→23:28)
[2023-08-23] MEDS: LEVALBUTEROL HCL 0.63 MG/3 ML NEB NEB SCH ×5 (01:11→23:28)
[2023-08-23] MEDS ORDERED: MAGNESIUM SULFATE / D5W 1 GM/100 ML BAG IV ONE (01:15)
[2023-08-23] MEDS ORDERED: SODIUM CHLORIDE 0.9% 250 ML IV PRN ×2 (02:19→06:48)
[2023-08-23] MEDS ORDERED: SODIUM CHLORIDE 0.9% 1,000 ML IV ONE (04:24)
[2023-08-23] MEDS: PIPERACILLIN/TAZOBACTAM 4.5 GM in DEXTROSE 5% MINI-B 100 ML IV SCH ×3 (05:06→21:57)
[2023-08-23 06:44] LABS: Hematocrit (blood only) 20.2 % (42.0-52.0); Hemoglobin 6.6 g/dl (14.0-18.0); Mean Corpuscular Hemoglobin 31.1 pg (25.0-34.0); Mean Corpuscular Hgb Conc 32.7 g/dL (32.0-36.0); Mean Corpuscular Volume 95.3 fL (80.0-100.0); Mean Platelet Volume 10.4 fL (9.4-12.4); Platelet Count 99 K/uL (130-400); RDW Coefficient of Variation 16.4 % (11.5-14.5); RDW Standard Deviation 56.1 fL (36.4-46.3); Red Blood Count 2.12 M/uL (4.70-6.10); White Blood Count 4.52 K/ul (4.8-10.8)
--- NOTE | 2023-08-23 06:50 | Communication Note ---
Date of Service: August 22, 2023 Late entry 11:40 PM SBP noted to be 80s as per RN. Hemoglobin 7.3 from 8.2 Patient with epistaxis episodes as per report as per RN. No active bleeding currently. Patient without headache symptoms. Ap Acute on chronic anemia Epistaxis episode Transfuse PRBC to maintain hemoglobin of at least 8 (hx CAD as per records) Hold Eliquis for now until hemoglobin stable
[2023-08-23 07:05] LABS: Anisocytosis Present; Basophils # (auto) 0.01 K/uL (0.00-0.20); Basophils % (auto) 0.2 %; Eosinophils # (auto) 0.06 K/uL (0.00-0.50); Eosinophils % (auto) 1.3 %; Immature Granulocytes # (auto) 0.02 K/uL (0.01-0.20); Immature Granulocytes % (auto) 0.4 %; Lymphocytes # (auto) 0.56 K/uL (1.20-3.40); Lymphocytes % (auto) 12.4 %; Monocytes # (auto) 0.46 K/uL (0.11-0.59); Monocytes % (auto) 10.2 %; Neutrophils # (auto) 3.41 K/uL (1.40-6.50); Neutrophils % (auto) 75.5 %; Ovalocytes 1+; Poikilocytosis Present; Tear Drop Cells 2+
[2023-08-23] MEDS: SODIUM CHLOR 7% 4 ML NEB NEB SCH ×2 (07:05→19:48)
[2023-08-23] MEDS ORDERED: OXYMETAZOLINE 0.05% 30 ML BTL PRN (08:02)
[2023-08-23] MEDS ORDERED: HYDROcodone/HOMATROPINE SYRUP 5MG/1.5MG 5ML UDP PO PRN (08:05)
[2023-08-23] MEDS: METOPROLOL SUCC 25MG EXT REL TAB PO SCH (08:23)
[2023-08-23] MEDS: POTASSIUM CHLORIDE CRTAB 20 MEQ TABCR PO SCH (08:23)
[2023-08-23] MEDS: DOCUSATE SODIUM/SENNA 50/8.6MG TAB PO SCH (08:23)
[2023-08-23] MEDS: BENZONATATE 100 MG CAPSULE PO SCH ×3 (08:23→20:14)
[2023-08-23] MEDS: GABAPENTIN 300 MG CAP PO SCH ×2 (08:24→20:17)
[2023-08-23] MEDS: DOXYCYCLINE HYCLATE 100 MG CAP PO SCH ×2 (08:24→20:17)
[2023-08-23] MEDS: PANTOprazole 40 MG TAB PO SCH (08:24)
[2023-08-23] MEDS: LINACLOTIDE 145 MCG CAPSULE PO SCH (08:24)
[2023-08-23] MEDS: ATORVASTATIN 40 MG TAB PO SCH (08:24)
[2023-08-23] MEDS: INSULIN ASPART PER UNIT CHARGE SC SCH ×4 (09:16→20:24)
[2023-08-23 10:34] LABS: Hematocrit (blood only) 23.8 % (42.0-52.0); Hemoglobin 7.8 g/dl (14.0-18.0)
--- NOTE | 2023-08-23 10:41 | Pulmonology Progress Note ---
Date of Service August 23, 2023 Assessment & Plan (1) Hypoxia: (2) Pneumonia: Laterality: right Lung location: upper lobe of lung Pneumonia type: due to unspecified organism Qualified Code(s): J18.9 - Pneumonia, unspecified organism (3) Immunocompromised: (4) Multiple myeloma: (5) Abnormal CT scan, chest: (6) Congestive heart failure: Plan 78-year-old male with a history of multiple myeloma, paroxysmal atrial and ischemic cardiomyopathy presenting to the hospital due to shortness of breath and cough. Serial CTs chest scans noted. He has a bandlike soft tissue density noted in the right upper lobe with bullous emphysema in the right upper lobe. Diffuse tree-in-bud opacities noted in the lower lobes bilaterally with early stages of subpleural honeycombing. Differential is broad including pulmonary toxicity related to her myeloma medications, aspiration pneumonitis, connective tissue disorder related ILD and subacute infection such as TRIP. Subacute to chronic infection such as nontuberculous Mycobacterium (MAC organisms and others) quite high on the list of differentials given the radiographic picture and history. AFB sputum cultures pending x3. May may take up to 6 weeks to finalize. Patient poor candidate for bronchoscopy given severe comorbidities at baseline and underlying systolic heart failure. Continue flutter valve, percussive vest therapy, hypertonic saline twice daily. Continue Xopenex/Atrovent every 6 hours. Repeat chest x-ray 08/21/2023 unchanged from prior. Recommend ID consultation given concern for possible TRIP and underlying multiple myeloma on therapy. Thanks for the consult. We will follow. Admission and Anticipated Discharge Date Admission Date: August 20, 2023 Subjective Patient seen and examined this morning. He had an episode of epistaxis y esterday evening and hypotension. He received a unit of packed RBCs. He slept poorly. He endorses some mild shortness of breath today. He remains on 4 L of oxygen via nasal cannula and satting in the mid 90s. His mobility has been extremely limited. His appetite remains poor. He complains of persistent dry cough. He denies hemoptysis. Review of Systems Review of Systems: All systems reviewed & are unremarkable except as noted in HPI & below Physical Exam Physical Exam: Constitutional: Patient appears to be of their stated age. Frail and thin appearing. Nasal cannula in place. Eyes: Pupils are equal round and reactive to light. Conjunctivae are normal. Anicteric sclera. Ears nose, mouth and throat: Deferred. Neck: Trachea is midline. Visual inspection is normal. Respiratory: Clear to auscultation bilaterally. Prolonged phase of exhalation. No increased work of breathing. Cardiovascular: Regular rate and rhythm. No murmurs. No edema. Gastrointestinal: Normal bowel sounds, soft, nontender and nondistended. No hepatosplenomegaly noted. Musculoskeletal: No cyanosis. Patient is able to move all extremities. Strength is 5 out of 5 in the upper and lower extremities. Skin: No rashes, warm dry and intact. Neurologic: No obvious focal neurological deficits seen. Psychiatric: Alert and oriented x3 with a euthymic affect. Results & Data Results & Data Vital Signs (Past 12 Hours) Vital Signs Temp Pulse Pulse Resp BP Pulse Ox O2 Del Method 08/23/23 07:25 36.7 C 72 17 97/57 L 96 Nebulizer 08/23/23 07:22 68 08/23/23 07:06 64 18 94 Nasal Cannula 08/23/23 06:51 71 106/58 L 08/23/23 04:01 36.7 C 76 18 86/47 L 98 Nasal Cannula 08/22/23 23:31 37.4 C 100 H 16 83/33 L 95 Nasal Cannula O2 Flow Rate 08/23/23 07:25 08/23/23 07:22 08/23/23 07:06 4 08/23/23 06:51 08/23/23 04:01 4 08/22/23 23:31 4 PG Care Time/CCT Total # of Minutes Spent Total Time Spent with Patient: Total time spent is greater than 50% in coordination of care (as documented) at patient's floor/unit and/or counseling patient: Coding Level of Care Code 28245 SUB INP/OBS CARE 2/35MIN Diagnoses Hypoxia R09.02 Pneumonia J18.9 Laterality: right Lung location: upper lobe of lung Pneumonia type: due to unspecified organism Immunocompromised D84.9 Multiple myeloma C90.[address] scan, chest R93.89 Congestive heart failure I50.9
[2023-08-23 10:57] LABS: INR 1.1 (0.9-1.1); Prothrombin Time 11.9 Seconds (9.0-12.0)
--- NOTE | 2023-08-23 11:07 | CT Scan Report ---
CT chest diagnostic wo con CT DOSE: 358.58 mGy.cm CLINICAL HISTORY: 78 years-old Male with Pneumonia,Epistaxis. Acute shortness of breath with pneumon ia TECHNIQUE: Multiaxial CT images of the chest were performed without contrast. A dose lowering techni que was utilized adhering to the principles of ALARA. COMPARISON: Chest CT 08/20/2023 FINDINGS: No thyroid nodule. Left subclavian pacer. Mild to moderate cardiomegaly with extensive robinson ve coronary artery calcifications. Median sternotomy with CABG. Atherosclerosis of aorta without aneu rysm. There are suggested postoperative changes of the pulmonary arteries/pulmonic valve. No pneumothorax, pleural effusion or overt pulmonary edema. Emphysema. There is a linear area of cons olidation within the apical right upper lobe on image 62 suggestive of atelectasis/fibrosis measuring 8.1 x 2.8 cm. Multilobar distribution of multifocal tree-in-bud nodules with patchy dependent bibasi lar consolidation admixed with fibrosis and mild traction bronchiectasis. The degree of consolidation within the lower lobes has worsened. Moderate associated right lower lobe prominent mucous plugging. No honeycombing. No acute process of the imaged upper abdomen. Unremarkable soft tissues. Degenerati ve changes of the spine. Healed chronic bilateral rib fractures. Stable peripherally sclerotic lucent foci noted within the spine. IMPRESSION: 1. Multisegmental multilobar dissipation of bilateral tree-in-bud nodules within a mid to lower lung zone predominant distribution compatible with an infectious or inflammatory bronchiolitis/pneumonitis is again noted with progressive lower lobe consolidation and mucous plugging. 2. Emphysema with bibasilar fibrotic changes redemonstrated. 3. Linear area of right apical consolidation is suggestive of postinflammatory scarring. Attention on follow-up recommended. ACT 112: Negative or not required by law. Electronically signed by: Uziel Nieto M.D. 08/23/2023 11:06 AM
[2023-08-23] MEDS: SODIUM CHLORIDE 0.65% NA SOLN 45 ML (OCEAN) SCH ×2 (13:25→20:14)
--- NOTE | 2023-08-23 17:18 | Hospitalist Progress Note ---
Date of Service August 23, 2023 Assessment & Plan (1) Hypoxia: (2) Interstitial lung disease: (3) Ischemic cardiomyopathy: (4) Chronic heart failure with reduced ejection fraction and diastolic dysfunction: Plan: Patient presenting from home with reports of shortness of breath x 2 days. Was at the wound care center today and was referred to the ED due to shortness of breath. Enterovirus infection Hypoxia multifactorial Interstitial lung disease, COPD, suspected TRIP, CHF with reduced EF and diastolic dysfunction H/O recent Pneumonia --CT Chest:Multisegmental multilobar dissipation of bilateral tree-in-bud nodules within a mid to lower lung zone predominant distribution compatible with an infectious or inflammatory bronchiolitis/pneumonitis. Emphysema with bibasilar fibrotic changes redemonstrated. Linear area of right apical consolid ation is suggestive of postinflammatory scarring. Attention on follow-up recommended. No pleural effusion or lymphadenopathy. --BioFire positive for enterovirus --Normal procalcitonin --Echo 06/2023-EF 35 to 40%, diastolic dysfunction --BNP 258 (improved from most recent results) -- Sputum cultures pending --Received IV Lasix --Isolation precautions Monitor volume status closely Continue nebs, Zosyn, doxycycline Supplemental oxygen as needed Appreciate pulmonology input Pulmonary hygiene with flutter valve, incentive spirometry Resume home diuretics as able Consulted ID as possible TRIP Repeat CT today suggestive of progressive lower lobe consolidation with mucous plugging Continue flutter valve, vest therapy, hypertonic saline nebs Poor candidate for bronchoscopy due to comorbidities Left plantar foot wound infection Follows with wound clinic as outpatient Wound cultures growing Pseudomonas, Enterococcus faecalis Continue Zosyn Continue local wound care Inpatient wound care consulted Follow-up ID recommendations Epistaxis Hold Eliquis Continue Humidification of supplemental oxygen Afrin as needed Monitor CBC and transfuse PRBCs as needed Will consider TXA nebs if uncontrollable, recurrent (5) PAF (paroxysmal atrial fibrillation): Plan: Continue metoprolol, digoxin Resume Eliquis as able (6) Tachy-noman syndrome: Plan: S/P pacemaker Management as above (7) Pacemaker: Plan: Chronic (8) Diabetic ulcer of left foot: Plan: Present on admission Follows with the wound care center Chronic orthostatic hypotension Metoprolol dose decreased due to persistent low BP Readjust medications as able Monitor BP (9) CAD (coronary artery disease): Plan: s/p CABG Continue statin and beta-annika (10) Type 2 diabetes mellitus: Plan: Hgb A1c 6.9 06/2023 Hold home agents and utilize NovoLog per protocol while hospitalized (11) Multiple myeloma: Plan: Follows with Dr. Garcia Treatment currently on hold DVT Px Eliquis held Re: Epistaxis SCDs for now CODE STATUS DNR/DNI Admission and Anticipated Discharge Date Admission Date: August 20, 2023 Subjective Patient is seen and examined at bedside Was noted to have epistaxis overnight Drop in hemoglobin on repeat labs, stable hemoglobin on repeat labs Hypotensive overnight Blood pressure better today Patient has persistent cough but denies any significant dyspnea Denies any chest pain, nausea, vomiting, abdominal pain Supplemental oxygen requirement about the same as yesterday Repeat CT today suggestive of progressive lower lobe consolidation with mucous plugging Review of Systems Review of Systems: All systems reviewed & are unremarkable except as noted in Subjective Physical Exam Physical Exam: Physical Exam: Vitals signs as noted above General Appearance:Thin, Frail, no apparent distress Head: normocephalic, Atraumatic Eyes: normal inspection, EOMI Neck: supple, Trachea midline Respiratory/Chest: Decreased breath sounds, CTA, No accessory muscle use Cardiovascular: S1,S2 +murmur Abdomen/GI:Soft, Non tender, Bowel sounds present Extremities/Musculoskeletal:normal inspection, no edema Neurologic/Psych:AAOX3, grossly no focal neurological deficits Skin: normal color, warm Results & Data Results & Data Vital Signs (Past 12 Hours) Vital Signs Temp Pulse Pulse Resp BP Pulse Ox Pulse Ox 08/23/23 16:15 88 08/23/23 15:26 36.6 C 74 16 110/56 L 95 08/23/23 15:00 96 08/23/23 13:08 89 18 96 08/23/23 11:21 08/23/23 11:16 36.6 C 81 16 103/58 L 98 08/23/23 07:25 36.7 C 72 17 97/57 L 96 08/23/23 07:22 68 08/23/23 07:06 64 18 94 08/23/23 06:51 71 106/58 L O2 Del Method O2 Del Method O2 Flow Rate O2 Flow Rate 08/23/23 16:15 08/23/23 15:26 Nasal Cannula 4 08/23/23 15:00 Nasal Cannula 4 08/23/23 13:08 Nasal Cannula 4 08/23/23 11:21 Nasal Cannula 4 08/23/23 11:16 Nasal Cannula 4 08/23/23 07:25 Nebulizer 08/23/23 07:22 08/23/23 07:06 Nasal Cannula 4 08/23/23 06:51 Laboratory Results Short CBC 08/23/23 08/23/23 08/23/23 Range/Units 00:07 05:37 10:00 WBC 5.84 4.52 L (4.8-10.8) K/ul Hgb 7.3 L 6.6 L* 7.8 L (14.0-18.0) g/dl Hct 21.8 L 20.2 L* 23.8 L (42.0-52.0) % Plt Count 114 L 99 L (130-400) K/uL BMP 08/23/23 00:07 Sodium 133 L Potassium 4.0 Chloride 105 Carbon Dioxide 20 L BUN 23 Creatinine 1.22 Glucose 242 H Calcium 7.7 L
[2023-08-23] MEDS: DIGOXIN 0.125 MG TAB PO SCH (18:40)
[2023-08-23] MEDS: guaiFENesin/DEXTROM SYRUP 200MG/20MG 10ML UDC PO PRN (18:40)
[2023-08-23] MEDS: MoRPHine SULFATE IR 15 MG TAB (IMMEDIATE RELEASE) PO PRN (20:13)
[2023-08-23] MEDS: MELATONIN 3 MG TAB PO PRN (20:14)
[2023-08-23] MEDS: MIRTAZAPINE TAB 15 MG TAB PO SCH (20:20)
[2023-08-23 23:12] LABS: Hematocrit (blood only) 23.9 % (42.0-52.0); Hemoglobin 7.9 g/dl (14.0-18.0)
[2023-08-24] MEDS: PIPERACILLIN/TAZOBACTAM 4.5 GM in DEXTROSE 5% MINI-B 100 ML IV SCH ×3 (05:24→20:50)
[2023-08-24 05:25] LABS: Hematocrit (blood only) 23.4 % (42.0-52.0); Hemoglobin 7.9 g/dl (14.0-18.0); Mean Corpuscular Hemoglobin 31.2 pg (25.0-34.0); Mean Corpuscular Hgb Conc 33.8 g/dL (32.0-36.0); Mean Corpuscular Volume 92.5 fL (80.0-100.0); Mean Platelet Volume 10.6 fL (9.4-12.4); Platelet Count 106 K/uL (130-400); RDW Coefficient of Variation 17.4 % (11.5-14.5); RDW Standard Deviation 56.3 fL (36.4-46.3); Red Blood Count 2.53 M/uL (4.70-6.10); White Blood Count 4.49 K/ul (4.8-10.8)
[2023-08-24 05:36] LABS: BUN Creatinine Ratio 14.9 (10-20); Calcium 8.1 mg/dl (8.6-10.3); Creatinine Clr Calc Pharmacy 61.2 ml/min; Est GFR (African American) 90.3 ml/min; Est GFR (Non-African American) 77.9 ml/min; Potassium 3.9 mmol/L (3.5-5.1)
[2023-08-24] MEDS: LEVALBUTEROL HCL 0.63 MG/3 ML NEB NEB SCH ×3 (07:17→19:38)
[2023-08-24] MEDS: SODIUM CHLOR 7% 4 ML NEB NEB SCH ×2 (07:17→19:37)
[2023-08-24] MEDS: IPRATROPIUM BROMIDE NEB SOLN 0.02% 2.5 ML VIAL INH SCH ×3 (07:17→19:37)
[2023-08-24] MEDS: guaiFENesin/DEXTROM SYRUP 200MG/20MG 10ML UDC PO PRN (08:26)
[2023-08-24] MEDS: PANTOprazole 40 MG TAB PO SCH (08:28)
[2023-08-24] MEDS: SODIUM CHLORIDE 0.65% NA SOLN 45 ML (OCEAN) SCH ×3 (08:28→20:49)
[2023-08-24] MEDS: LINACLOTIDE 145 MCG CAPSULE PO SCH (08:28)
[2023-08-24] MEDS: BENZONATATE 100 MG CAPSULE PO SCH ×3 (08:28→20:46)
[2023-08-24] MEDS: ATORVASTATIN 40 MG TAB PO SCH (08:28)
[2023-08-24] MEDS: METOPROLOL SUCC 25MG EXT REL TAB PO SCH (08:28)
[2023-08-24] MEDS: POTASSIUM CHLORIDE CRTAB 20 MEQ TABCR PO SCH (08:28)
[2023-08-24] MEDS: DOXYCYCLINE HYCLATE 100 MG CAP PO SCH (08:28)
[2023-08-24] MEDS: GABAPENTIN 300 MG CAP PO SCH ×2 (08:29→20:48)
[2023-08-24] MEDS: DOCUSATE SODIUM/SENNA 50/8.6MG TAB PO SCH (08:29)
[2023-08-24] MEDS ORDERED: METOPROLOL TARTRATE 1 MG/ML VIAL IV PRN (09:10)
[2023-08-24] MEDS ORDERED: Heparin IV Adult Wt-Based Low-Dose *NO* Bolus Protocol IV SCH (09:11)
[2023-08-24] MEDS: METOPROLOL SUCC 50MG EXT REL TAB PO SCH ×2 (09:32→20:48)
[2023-08-24] MEDS: INSULIN ASPART PER UNIT CHARGE SC SCH ×4 (09:34→22:36)
[2023-08-24] MEDS: HEPARIN SODIUM/DEXTROSE 25,000 UNITS/500 ML BAG IV SCH (09:54)
--- NOTE | 2023-08-24 10:37 | Pulmonology Progress Note ---
Date of Service August 24, 2023 Assessment & Plan (1) Hypoxia: (2) Pneumonia: Laterality: right Lung location: upper lobe of lung Pneumonia type: due to unspecified organism Qualified Code(s): J18.9 - Pneumonia, unspecified organism (3) Immunocompromised: (4) Multiple myeloma: (5) Abnormal CT scan, chest: (6) Congestive heart failure: Plan 78-year-old male with a history of multiple myeloma, paroxysmal atrial and ischemic cardiomyopathy presenting to the hospital due to shortness of breath and cough. Serial CTs chest scans noted. He has a bandlike soft tissue density noted in the right upper lobe with bullous emphysema in the right upper lobe. Diffuse tree-in-bud opacities noted in the lower lobes bilaterally with early stages of subpleural honeycombing. Differential is broad including pulmonary toxicity related to her myeloma medications, aspiration pneumonitis, connective tissue disorder related ILD and subacute infection such as TRIP. AFB sputum cultures x3 obtained and pending. Gram stain and sputum culture negative for pathogens. Respiratory viral panel was positive on admission for enterovirus/rhinovirus. Suspect this may be playing a mild role in his acute on chronic respiratory symptoms. Continue flutter valve, percussive vest therapy, hypertonic saline twice daily. Continue Xopenex/Atrovent every [address] chest noted with dense more dense consolidation in the lower lobes bilaterally. Difficult to ascertain the significance of these findings given the short interval of time from the prior CT the same admission. Given the appearance of possibly underlying interstitial lung disease and thus far negative cultures, will initiate prednisone at a dose of 40 mg. Recommend ID consultation given concern for possible TRIP and underlying multiple myeloma on therapy. Given ongoing cachexia and myeloma, recommend palliative consultation. Thanks for the consult. We will follow. Admission and Anticipated Discharge Date Admission Date: August 20, 2023 Subjective Patient seen and examined. Continues to have persistent cough there is occasional productive sputum. He has been essentially bedbound this hospitalization. Very minimal activity. Encourage nursing to get the patient out of bed and sit him up in a chair. Patient denies any hemoptysis. No fevers, chills or night sweats. Review of Systems Review of Systems: All systems reviewed & are unremarkable except as noted in HPI & below Physical Exam Physical Exam: Constitutional: Patient appears to be of their stated age. Frail and thin appearing. Nasal cannula in place. Eyes: Pupils are equal round and reactive to light. Conjunctivae are normal. Anicteric sclera. Ears nose, mouth and throat: Deferred. Neck: Trachea is midline. Visual inspection is normal. Respiratory: Clear to auscultation bilaterally. Prolonged phase of exhalation. No increased work of breathing. Cardiovascular: Regular rate and rhythm. No murmurs. No edema. Gastrointestinal: Normal bowel sounds, soft, nontender and nondistended. No hepatosplenomegaly noted. Musculoskeletal: No cyanosis. Patient is able to move all extremities. Strength is 5 out of 5 in the upper and lower extremities. Skin: No rashes, warm dry and intact. Neurologic: No obvious focal neurological deficits seen. Psychiatric: Alert and oriented x3 with a euthymic affect. Results & Data Results & Data Vital Signs (Past 12 Hours) Vital Signs Temp Pulse Pulse Resp BP BP Pulse Ox 08/24/23 07:53 08/24/23 07:28 96 H 08/24/23 07:23 36.6 C 115 H 18 135/61 95 08/24/23 07:17 18 95 08/24/23 02:43 36.4 C 77 20 119/61 97 08/23/23 23:47 83 08/23/23 23:32 36.6 C 76 20 113/64 98 O2 Del Method O2 Flow Rate 08/24/23 07:53 Nasal Cannula 3 08/24/23 07:28 08/24/23 07:23 Nebulizer 08/24/23 07:17 Nasal Cannula 3 08/24/23 02:43 Nasal Cannula 4 08/23/23 23:47 08/23/23 23:32 Nasal Cannula 4 PG Care Time/CCT Total # of Minutes Spent Total Time Spent with Patient: Total time spent is greater than 50% in coordination of care (as documented) at patient's floor/unit and/or counseling patient: Coding Level of Care Code 68631 SUB INP/OBS CARE 3/50MIN Diagnoses Hypoxia R09.02 Pneumonia J18.9 Laterality: right Lung location: upper lobe of lung Pneumonia type: due to unspecified organism Immunocompromised D84.9 [address] myel[address]90[address] scan, chest R93.89 Congestive heart failure I50.9
[2023-08-24] MEDS ORDERED: predniSONE 20 MG TAB PO STA (10:38)
[2023-08-24 11:53] LABS: Basophils # (auto) 0.01 K/uL (0.00-0.20); Basophils % (auto) 0.1 %; Eosinophils # (auto) 0.05 K/uL (0.00-0.50); Eosinophils % (auto) 0.7 %; Hematocrit (blood only) 28.5 % (42.0-52.0); Hemoglobin 9.3 g/dl (14.0-18.0); Immature Granulocytes # (auto) 0.03 K/uL (0.01-0.20); Immature Granulocytes % (auto) 0.4 %; Lymphocytes # (auto) 0.35 K/uL (1.20-3.40); Mean Corpuscular Hemoglobin 29.5 pg (25.0-34.0); Mean Corpuscular Hgb Conc 32.6 g/dL (32.0-36.0); Mean Corpuscular Volume 90.5 fL (80.0-100.0); Mean Platelet Volume 11.1 fL (9.4-12.4); Monocytes # (auto) 0.69 K/uL (0.11-0.59); Monocytes % (auto) 9.8 %; Platelet Count 136 K/uL (130-400); RDW Coefficient of Variation 17.6 % (11.5-14.5); RDW Standard Deviation 57.1 fL (36.4-46.3); Red Blood Count 3.15 M/uL (4.70-6.10); White Blood Count 7.03 K/ul (4.8-10.8)
[2023-08-24 12:27] LABS: INR 1.1 (0.9-1.1); Partial Thromboplastin Time 29.2 Seconds (21.0-31.0); Prothrombin Time 11.6 Seconds (9.0-12.0)
[2023-08-24] MEDS: ACETAMINOPHEN 325 MG TAB PO PRN (15:56)
--- NOTE | 2023-08-24 16:26 | Infectious Disease Consult ---
Date of Service August 24, 2023 Telehealth Information I performed this visit using a real-time telehealth connection between my location and the patients location ([facility]). After connecting through interactive tele-video, patient was identified by name and date of and/or wristband check.Patient (or authorized healthcare exhibit display representative) was informed that this was a telemedicine visit and it was being conducted confidentially over secure lines. My office door was closed and no one else was present in the room with me.Patient (or authorized healthcare exhibit display representative) provided consent to proceed with the visit, expressed an understanding of privacy and security of the telemedicine visit, and gave permission to have a hospital exhibit display representative in the room in order to assist with the visit and to conduct portions of the visit, as needed. I informed the patient (or authorized healthcare exhibit display representative) that I reviewed their record and presented the opportunity for them to ask any questions regarding the visit today. The patient agreed to participate. Assessment & Plan (1) Immunocompromised: (2) Interstitial lung disease: Plan: Assessment: Acute hypoxic respiratory failure Multilobar tree-in-bud nodules presumed interstitial lung disease of unclear etiology Entero/rhinovirus infection Diabetic L plantar foot wound no evidence of infection Recommendations: - Stop doxycycline as there is no clear indication to continue - Consider stopping zosyn as the patient does not feel any difference after being on it for ~4 days and there is no clear indication to continue. If to continue, complete total 5 days and stop. - F/u AFB smears and sputum cx - If no diagnosis is established, I recommend bronchoscopoy for further evaluation w/ possibly lung biopsy for pathology, repeat bacterial cultures, AFB smear/culture, pneumocystitis smear, and legionella culture - Patient does NOT appear to have infection on L foot: continue wound care. Please, avoid getting surface wound culture from a site w/o apparent finding suggestive of infection More than 50% of [id number] visit was spent counseling and coordinating care pertaining to the patient's infection diagnosis, additional work-up, and treatment option(s) as well as potential adverse events of the treatment. History of Present Illness History of Present Illness This 78 y/o male (Dev) w/ hx of ex-smoker (quit in ), COPD w/ lung scarring (not requiring any O2 supplement or inhaler/neb treatment), multiple myeloma (dx 2020, no chemo in past 3 months as MM has been under control), paroxismal atrial fibrillation, CAD s/p CABG, tachy-noman syndrome s/p PPM, and DM2 w/ chronic L plantar foot ulcer (~2 months: getting better), presented to [facility] for SOB and coughing (mostly dry but sometime light green) x 1 week. He does not require any O2 supplement at baseline. CT chest showed a bandlike soft tissue density noted in RUL w/ bullous emphysema and diffuse tree-in-bud opacities in lower lobes b/l and early stages of subpleural honey. No fever but minimal leukocytosis. RPPCR was positive for entero/rhinovirus. The patient is on doxycycline (08/20-) and zosyn (08/20-). He was also noted to have L plantar foot wound w/ surface wound culture showing PSA and E faecalis. ID was called to comment on the lung findings and L foot wound. No chest pain, f/c, night sweat, recent weight loss, diarrhea, n/v, abd pain, or urinary symptoms. No obvious sick contact prior to onset of symptoms. The patient is currently on 4 liter O2 supplement. Allergies Allergy/AdvReac Type Severity Reaction Status Date / Time tizanidine Allergy Unknown UNKNOWN--ON Verified 08/20/23 08:20 GM MED LIST Home Medications Medication Instructions Recorded Confirmed Type apixaban 5 mg tablet (Eliquis) 5 mg PO BID 06/25/20 08/20/23 History atorvastatin 40 mg tablet 40 mg PO DAILY 06/25/20 08/20/23 History liraglutide 0.6 mg/0.1 mL (18 mg/3 1.2 mg subcut DAILY 09/30/21 08/20/23 History mL) subcutaneous pen injector (Victoza 2-Jed) ondansetron 8 mg disintegrating 8 mg PO Q8H PRN Nausea 09/30/21 08/20/23 History tablet prochlorperazine maleate 10 mg 10 mg PO Q6H PRN nausea 09/30/21 08/20/23 History tablet polyethylene glycol 3350 17 gram 17 g PO DAILY PRN constipation #15 10/05/21 08/20/23 Rx oral powder packet (Miralax) ea nitroglycerin 0.4 mg sublingual 0.4 mg sublingual .Q 5 MIN PRN 11/01/21 08/20/23 History tablet Chest Pain omega-3 fatty acids 1,000 mg 1,000 mg PO BID 04/15/22 08/20/23 History capsule docusate sodium 100 mg capsule 100 mg PO BID PRN Constipation 04/22/22 08/20/23 History (Colace) gabapentin 300 mg capsule 300 mg PO AMHS 04/22/22 08/20/23 History mecobalamin (vitamin B12) 1,000 1,000 mcg PO DAILY 04/22/22 08/20/23 History mcg chewable tablet (B12 Active) morphine 15 mg immediate release 15 mg PO Q4H PRN Pain 04/22/22 08/20/23 History tablet calcium carbonate 600 mg-vitamin 1 tab PO BID 11/04/22 08/20/23 History D3 10 mcg (400 unit) tablet (Calcium 600 + D(3)) digoxin 125 mcg (0.125 mg) tablet 125 mcg PO Q OTHER DAY 11/04/22 08/20/23 History lenalidomide 10 mg capsule 10 mg PO DIRECTED 11/04/22 08/20/23 History (Revlimid) potassium chloride 20 mEq 20 meq PO BID 11/04/22 08/20/23 History tablet,extended release(part/cryst) sennosides 8.6 mg tablet (senna) 17.2 mg PO HS PRN Constipation 11/04/22 08/20/23 History insulin aspart U-100 100 unit/mL 15 unit subcut TIDM 12/31/22 08/20/23 History (3 mL) subcutaneous pen (Novolog FlexPen U-100 Insulin aspart) insulin glargine 100 unit/mL (3 45 unit subcut QPM 12/31/22 08/20/23 History mL) subcutaneous pen (Basaglar KwikPen U-100 Insulin) dexamethasone 4 mg tablet 20 mg PO WK 06/25/23 08/20/23 History mirtazapine 30 mg tablet 30 mg PO HS 06/25/23 08/20/23 History omeprazole 20 mg capsule,delayed 20 mg PO QAM 06/25/23 08/20/23 History release linaclotide 145 mcg capsule 145 mcg PO DAILY 07/28/23 08/20/23 History (Linzess) furosemide 20 mg tablet (Lasix) 20 mg PO UD #30 tabs 07/29/23 08/20/23 Rx metoprolol succinate 25 mg 25 mg PO DAILY 08/20/23 08/20/23 History tablet,extended release 24 hr metoprolol succinate 50 mg 50 mg PO BID 08/20/23 08/20/23 History tablet,extended release 24 hr (Toprol XL) Patient History Medical History (Updated 08/21/23 @ 14:28 by Charles Womack MD) Congestive heart failure Abnormal CT scan, chest Immunocompromised Interstitial lung disease PAF (paroxysmal atrial fibrillation) Diabetic ulcer of left foot Chronic deep vein thrombosis (DVT) Diarrhea Pneumonia CHI (closed head injury) NSTEMI (non-ST elevated myocardial infarction) ABDI (acute kidney injury) History of pilonidal cyst Pacemaker History of basal cell carcinoma History of melanoma in situ Hallux rigidus of left foot "S/p multiple surgeries" HLD (hyperlipidemia) CAD (coronary artery disease) Type 2 diabetes mellitus Surgical History Status post total hip replacement, left History of bone marrow biopsy History of cataract surgery S/P CABG x 4 S/P Mohs surgery for basal cell carcinoma History of foot surgery Family History Mother Lymphoma Social History Smoking Status: Former smoker Tobacco Type: Cigarettes Second Hand Exposure: Yes; Hx Alcohol Use: No Hx Substance Use: No Preferred Language: Danish Communication Ability: Effective Visual Impairment: No Limitations Hearing Ability: Normal Mission Worker Required: No Beliefs That Will Affect Care: None marital status: Current Living Situation: Spouse Current Living Situation Comment: home current occupational status: retired How many Children do You have: 1 How many Children do You have Comment: Mag[facility] lives [facility]. able to assist with care as needed. Feels Safe at Home: Yes Safety Concerns: Feels Safe At This Time Diet: regular Diet Comment: Trying to gain weight caffeine: No during the past year weight has: decreased > 10 lbs Assistive Devices: Cane and Glasses Assistive Devices Comment: Upper plate Review of Systems as HPI and all others negative Physical Exam Gen: no acute distress Lungs: breathing comfortably on 4 liter O2 via NC Neuro: awake, alert, and oriented x 3 Results & Data Vital Signs (Past 12 Hours) Vital Signs Temp Pulse Pulse Resp BP BP Pulse Ox 08/24/23 15:38 89 08/24/23 15:34 36.6 C 79 20 104/59 L 98 08/24/23 15:00 08/24/23 12:57 83 20 98 08/24/23 11:57 36.6 C 86 20 110/69 96 08/24/23 11:54 08/24/23 07:53 08/24/23 07:28 96 H 08/24/23 07:23 36.6 C 115 H 18 135/61 95 08/24/23 07:17 18 95 Pulse Ox O2 Del Method O2 Del Method O2 Flow Rate O2 Flow Rate 08/24/23 15:38 08/24/23 15:34 Nasal Cannula 3 08/24/23 15:00 94 Nasal Cannula 3 08/24/23 12:57 Nasal Cannula 4 08/24/23 11:57 Nasal Cannula 3 08/24/23 11:54 4 08/24/23 07:53 Nasal Cannula 3 08/24/23 07:28 08/24/23 07:23 Nebulizer 08/24/23 07:17 Nasal Cannula 3 Laboratory Results WBC 7.03K H 9.3 Plt 136K Cr 0.9 RPPCR (08/20): pos for Entero/rhino L foot surf wound cx (08/20/23): PSA (S to cefep, ceftaz, cipro, gent, lvq, colt, tobra, zosyn), E faecalis (S to amp, dapto, pcn, vanco 4) AFB sputum result pending Diagnostic Findings CT chest (08/23): 1. Multisegmental multilobar dissipation of bilateral tree-in-bud nodules within a mid to lower lung zone predominant distribution compatible with an infectious or inflammatory bronchiolitis/pneumonitis is again noted with progressive lower lobe consolidation and mucous plugging. 2. Emphysema with bibasilar fibrotic changes redemonstrated. 3. Linear area of right apical consolidation is suggestive of postinflammatory scarring. Attention on follow-up recommended. Medications Administered zosyn and doxycycline
--- NOTE | 2023-08-24 17:10 | Hospitalist Progress Note ---
Date of Service August 24, 2023 Assessment & Plan (1) Hypoxia: (2) Interstitial lung disease: (3) Ischemic cardiomyopathy: (4) Chronic heart failure with reduced ejection fraction and diastolic dysfunction: Plan: Patient presenting from home with reports of shortness of breath x 2 days. Was at the wound care center today and was referred to the ED due to shortness of breath. Enterovirus infection Hypoxia multifactorial Interstitial lung disease, COPD, suspected TRIP, CHF with reduced EF and diastolic dysfunction H/O recent Pneumonia --CT Chest:Multisegmental multilobar dissipation of bilateral tree-in-bud nodules within a mid to lower lung zone predominant distribution compatible with an infectious or inflammatory bronchiolitis/pneumonitis. Emphysema with bibasilar fibrotic changes redemonstrated. Linear area of right apical consolid ation is suggestive of postinflammatory scarring. Attention on follow-up recommended. No pleural effusion or lymphadenopathy. --BioFire positive for enterovirus --Normal procalcitonin --Echo 06/2023-EF 35 to 40%, diastolic dysfunction --BNP 258 (improved from most recent results) -- Sputum cultures pending --Received IV Lasix --Isolation precautions Monitor volume status closely Continue nebs Supplemental oxygen as needed Appreciate pulmonology input Pulmonary hygiene with flutter valve, incentive spirometry Resume home diuretics as able Repeat CT chest on 08/24/23 suggestive of progressive lower lobe consolidation with mucous plugging Continue flutter valve, vest therapy, hypertonic saline nebs Poor candidate for bronchoscopy due to comorbidities Appreciate ID input Plan to discontinue Zosyn after 5-day course. Doxycycline discontinued Started on prednisone 40 mg daily Consider palliative care if no improvement Left plantar foot wound Follows with wound clinic as outpatient Wound cultures growing Pseudomonas, Enterococcus faecalis No Infection currently as per ID Received Zosyn Continue local wound care Epistaxis Hold Eliquis Continue Humidification of supplemental oxygen Afrin as needed Monitor CBC and transfuse PRBCs as needed Will consider TXA nebs if uncontrollable, recurrent Trial of low dose IV heparin given Afib RVR (5) PAF (paroxysmal atrial fibrillation): Plan: A-fib RVR Continue metoprolol, digoxin Resume Eliquis as able Currently on IV heparin (6) Tachy-noman syndrome: Plan: S/P pacemaker Management as above (7) Pacemaker: Plan: Chronic (8) Diabetic ulcer of left foot: Plan: Present on admission Follows with the wound care center Chronic orthostatic hypotension Continue Metoprolol Monitor BP (9) CAD (coronary artery disease): Plan: s/p CABG Continue statin and beta-annika (10) Type 2 diabetes mellitus: Plan: Hgb A1c 6.9 06/2023 Hold home agents and utilize NovoLog per protocol while hospitalized (11) Multiple myeloma: Plan: Follows with Dr. Garcia Treatment currently on hold DVT Px IV heparin Eliquis held Re: Epistaxis CODE STATUS DNR/DNI Admission and Anticipated Discharge Date Admission Date: August 20, 2023 Subjective Patient is seen and examined at bedside Patient was noted to be in A-fib RVR this morning No epistaxis today Still has significant cough Denies any dyspnea at rest Discussed with ID today Denies any chest pain, nausea, vomiting, abdominal pain Saturating well on 3 L supplemental oxygen Review of Systems Review of Systems: All systems reviewed & are unremarkable except as noted in Subjective Physical Exam Physical Exam: Physical Exam: Vitals signs as noted above General Appearance:Thin, Frail, no apparent distress Head: normocephalic, Atraumatic Eyes: normal inspection, EOMI Neck: supple, Trachea midline Respiratory/Chest: Decreased breath sounds, CTA, No accessory muscle use Cardiovascular: S1,S2 +murmur Abdomen/GI:Soft, Non tender, Bowel sounds present Extremities/Musculoskeletal:normal inspection, no edema Neurologic/Psych:AAOX3, grossly no focal neurological deficits Skin: normal color, warm Results & Data Results & Data Vital Signs (Past 12 Hours) Vital Signs Temp Pulse Pulse Resp BP BP Pulse Ox 08/24/23 15:38 89 08/24/23 15:34 36.6 C 79 20 104/59 L 98 08/24/23 15:00 08/24/23 12:57 83 20 98 08/24/23 11:57 36.6 C 86 20 110/69 96 08/24/23 11:54 08/24/23 07:53 08/24/23 07:28 96 H 08/24/23 07:23 36.6 C 115 H 18 135/61 95 08/24/23 07:17 18 95 Pulse Ox O2 Del Method O2 Del Method O2 Flow Rate O2 Flow Rate 08/24/23 15:38 08/24/23 15:34 Nasal Cannula 3 08/24/23 15:00 94 Nasal Cannula 3 08/24/23 12:57 Nasal Cannula 4 08/24/23 11:57 Nasal Cannula 3 08/24/23 11:54 4 08/24/23 07:53 Nasal Cannula 3 08/24/23 07:28 08/24/23 07:23 Nebulizer 08/24/23 07:17 Nasal Cannula 3 Laboratory Results Short CBC 08/23/23 08/24/23 08/24/23 Range/Units 22:50 04:42 11:30 WBC 4.49 L 7.03 (4.8-10.8) K/ul Hgb 7.9 L 7.9 L 9.3 L (14.0-18.0) g/dl Hct 23.9 L 23.4 L 28.5 L (42.0-52.0) % Plt Count 106 L 136 (130-400) K/uL BMP 08/24/23 04:42 Sodium 138 Potassium 3.9 Chloride 108 H Carbon Dioxide 24 BUN 14 Creatinine 0.94 Glucose 183 H Calcium 8.1 L
[2023-08-24 17:33] LABS: Partial Thromboplastin Ratio 1.2; Partial Thromboplastin Time 32.5 Seconds (21.0-31.0)
[2023-08-24] MEDS ORDERED: HEPARIN IV BOLUS 3,000 UNITS in SYRINGE 0 ML IV ONE (17:37)
[2023-08-24] MEDS ORDERED: PHARMACY GLYCEMIC MGMT CONSULT PRN (17:38)
[2023-08-24] MEDS ORDERED: METOPROLOL TARTRATE 25 MG TAB PO STA (20:26)
[2023-08-24] MEDS ORDERED: POTASSIUM CHLORIDE CRTAB 20 MEQ TABCR PO STA (20:26)
[2023-08-24] MEDS: MoRPHine SULFATE IR 15 MG TAB (IMMEDIATE RELEASE) PO PRN (20:47)
[2023-08-24] MEDS: MELATONIN 3 MG TAB PO PRN (20:47)
[2023-08-24] MEDS: MIRTAZAPINE TAB 15 MG TAB PO SCH (20:48)
[2023-08-24] MEDS ORDERED: INSULIN PROTOCOL GOAL RANGE ONE (20:55)
[2023-08-24] MEDS ORDERED: STAT IV Infusion **Titration per Protocol STA (20:55)
[2023-08-24] MEDS ORDERED: LANTUS PER UNIT CHARGE SQ SCH (21:00)
[2023-08-24] MEDS ORDERED: INSULIN REGULAR 250 UNITS in SODIUM CHLORIDE 0.9% 247.5 ML IV SCH (21:15)
[2023-08-24] MEDS ORDERED: INSULIN HUMAN REGULAR PER UNIT 1.5 UNITS in SYRINGE 1.485 ML IV ONE (21:15)
[2023-08-25] MEDS: ACETAMINOPHEN 325 MG TAB PO PRN (00:49)
[2023-08-25 01:15] LABS: Partial Thromboplastin Ratio 1.4; Partial Thromboplastin Time 38.5 Seconds (21.0-31.0)
[2023-08-25] MEDS: MoRPHine SULFATE IR 15 MG TAB (IMMEDIATE RELEASE) PO PRN ×2 (01:27→20:44)
[2023-08-25] MEDS: IPRATROPIUM BROMIDE NEB SOLN 0.02% 2.5 ML VIAL INH SCH ×4 (02:06→19:33)
[2023-08-25] MEDS: LEVALBUTEROL HCL 0.63 MG/3 ML NEB NEB SCH ×4 (02:06→19:33)
[2023-08-25] MEDS: PIPERACILLIN/TAZOBACTAM 4.5 GM in DEXTROSE 5% MINI-B 100 ML IV SCH ×2 (05:31→14:23)
[2023-08-25] MEDS: SODIUM CHLOR 7% 4 ML NEB NEB SCH ×2 (07:07→19:33)
[2023-08-25 07:55] LABS: Hematocrit (blood only) 25.3 % (42.0-52.0); Hemoglobin 8.3 g/dl (14.0-18.0); Mean Corpuscular Hemoglobin 29.9 pg (25.0-34.0); Mean Corpuscular Hgb Conc 32.8 g/dL (32.0-36.0); Mean Platelet Volume 11.2 fL (9.4-12.4); Platelet Count 108 K/uL (130-400); RDW Coefficient of Variation 16.5 % (11.5-14.5); RDW Standard Deviation 54.2 fL (36.4-46.3); Red Blood Count 2.78 M/uL (4.70-6.10); White Blood Count 5.66 K/ul (4.8-10.8)
[2023-08-25] MEDS ORDERED: LANTUS PER UNIT CHARGE SC ONE ×2 (08:00→12:30)
[2023-08-25 08:28] LABS: Partial Thromboplastin Ratio 1.1; Partial Thromboplastin Time 30.9 Seconds (21.0-31.0)
[2023-08-25 08:35] LABS: Calcium 8.8 mg/dl (8.6-10.3); Magnesium 2.2 mg/dl (1.7-2.4); Potassium 4.1 mmol/L (3.5-5.1)
[2023-08-25 08:41] LABS: BUN Creatinine Ratio 18.9 (10-20); Creatinine Clr Calc Pharmacy 60.1 ml/min; Est GFR (African American) 89.1 ml/min; Est GFR (Non-African American) 76.9 ml/min
[2023-08-25] MEDS: METOPROLOL SUCC 25MG EXT REL TAB PO SCH (09:07)
[2023-08-25] MEDS: POTASSIUM CHLORIDE CRTAB 20 MEQ TABCR PO SCH (09:08)
[2023-08-25] MEDS: BENZONATATE 100 MG CAPSULE PO SCH ×3 (09:08→20:44)
[2023-08-25] MEDS: DOCUSATE SODIUM/SENNA 50/8.6MG TAB PO SCH (09:08)
[2023-08-25] MEDS: PANTOprazole 40 MG TAB PO SCH (09:09)
[2023-08-25] MEDS: METOPROLOL SUCC 50MG EXT REL TAB PO SCH ×2 (09:09→20:47)
[2023-08-25] MEDS: SODIUM CHLORIDE 0.65% NA SOLN 45 ML (OCEAN) SCH ×3 (09:10→20:48)
[2023-08-25] MEDS: LINACLOTIDE 145 MCG CAPSULE PO SCH (09:10)
[2023-08-25] MEDS: predniSONE 20 MG TAB PO SCH (09:10)
[2023-08-25] MEDS: GABAPENTIN 300 MG CAP PO SCH ×2 (09:11→20:47)
[2023-08-25] MEDS: ATORVASTATIN 40 MG TAB PO SCH (09:11)
[2023-08-25] MEDS: NovoLIN-N (NPH) PER UNIT CHARGE SQ SCH (09:20)
[2023-08-25] MEDS: INSULIN ASPART PER UNIT CHARGE SC SCH ×6 (09:31→21:02)
[2023-08-25] MEDS ORDERED: HEPARIN SOD (PORCINE) 1000 UNIT/ML IV ONE (10:15)
--- NOTE | 2023-08-25 10:32 | Pulmonology Progress Note ---
Date of Service August 25, 2023 Assessment & Plan (1) Hypoxia: (2) Pneumonia: Laterality: right Lung location: upper lobe of lung Pneumonia type: due to unspecified organism Qualified Code(s): J18.9 - Pneumonia, unspecified organism (3) Immunocompromised: (4) Multiple myeloma: (5) Abnormal CT scan, chest: (6) Congestive heart failure: Plan 78-year-old male with a history of multiple myeloma, paroxysmal atrial and ischemic cardiomyopathy presenting to the hospital due to shortness of breath and cough. Serial CTs chest scans noted. He has a bandlike soft tissue density noted in the right upper lobe with bullous emphysema in the right upper lobe. Diffuse tree-in-bud opacities noted in the lower lobes bilaterally with early stages of subpleural honeycombing. Differential is broad including pulmonary toxicity related to her myeloma medications, aspiration pneumonitis, connective tissue disorder related ILD and subacute infection such as TRIP. AFB sputum cultures x3 obtained and pending. Gram stain and sputum culture negative for pathogens. Respiratory viral panel was positive on admission for enterovirus/rhinovirus. Suspect this may be playing a mild role in his acute on chronic respiratory symptoms. Continue flutter valve, percussive vest therapy, hypertonic saline twice daily. Continue Xopenex/Atrovent every [address] chest noted with dense more dense consolidation in the lower lobes bilaterally. Difficult to ascertain the significance of these findings given the short interval of time from the prior CT the same admission. Given the appearance of possibly underlying interstitial lung disease and thus far negative cultures, we will continue with prednisone. Please taper over 2 weeks. He appears to have had no good response over the past 24 hours with prednisone as his oxygenation has improved. Appreciate ID input. Given ongoing cachexia and myeloma, recommend palliative consultation. I recommend that he follow-up with the [facility] ILD clinic in [place] upon discharge to undergo PFTs, HRCT and consideration of possible lung biopsy as the diagnosis at this point is unclear. No infectious etiology has been identified thus far. No further recommendations at this time. Pulmonary to sign off. Please call with questions. Thank you. Admission and Anticipated Discharge Date Admission Date: August 20, 2023 Subjective Patient seen and examined. His oxygen requirements have improved today and he is down to 1 L of oxygen. He remains profoundly weak and is mostly in bed. He did sit up in a chair yesterday and is eager to sit up in a chair today. His appetite has been poor. He denies any fevers, chills or night sweats. Review of Systems Review of Systems: All systems reviewed & are unremarkable except as noted in HPI & below Physical Exam Physical Exam: Constitutional: Patient appears to be of their stated age. Frail and thin appearing. Nasal cannula in place. Eyes: Pupils are equal round and reactive to light. Conjunctivae are normal. Anicteric sclera. Ears nose, mouth and throat: Deferred. Neck: Trachea is midline. Visual inspection is normal. Respiratory: Clear to auscultation bilaterally. Prolonged phase of exhalation. No increased work of breathing. Cardiovascular: Regular rate and rhythm. No murmurs. No edema. Gastrointestinal: Normal bowel sounds, soft, nontender and nondistended. No hepatosplenomegaly noted. Musculoskeletal: No cyanosis. Patient is able to move all extremities. Strength is 5 out of 5 in the upper and lower extremities. Skin: No rashes, warm dry and intact. Neurologic: No obvious focal neurological deficits seen. Psychiatric: Alert and oriented x3 with a euthymic affect. Results & Data Results & Data Vital Signs (Past 12 Hours) Vital Signs Temp Pulse Resp BP BP Pulse Ox O2 Del Method 08/25/23 09:37 Nasal Cannula 08/25/23 08:44 62 16 106/56 L 95 Room Air 08/25/23 07:10 70 18 97 Nasal Cannula 08/25/23 03:15 36.6 C 78 20 107/54 L 94 Nasal Cannula 08/25/23 02:07 73 22 95 Nasal Cannula 08/24/23 23:02 36.5 C 90 20 126/70 94 Nasal Cannula O2 Flow Rate 08/25/23 09:37 1 08/25/23 08:44 08/25/23 07:10 1 08/25/23 03:15 1 08/25/23 02:07 1 08/24/23 23:02 1 PG Care Time/CCT Total # of Minutes Spent Total Time Spent with Patient: Total time spent is greater than 50% in coordination of care (as documented) at patient's floor/unit and/or counseling patient: Coding Level of Care Code 68066 SUB INP/OBS CARE 2/35MIN Diagnoses Hypoxia R09.02 Pneumonia J18.9 Laterality: right Lung location: upper lobe of lung Pneumonia type: due to unspecified organism Immunocompromised D84.9 [address]90[address] scan, chest R93.89 Congestive heart failure I50.9
[2023-08-25] MEDS ORDERED: INSULIN ASPART PER UNIT CHARGE SC SCH ×2 (11:30)
--- NOTE | 2023-08-25 11:55 | Pharmacy Report ---
Pharmacy Glycemic Short Note 2 - Date of Service August 25, 2023 - Glycemic Short BSG Results (Last 24 hours): 08/24/23 08/24/23 08/24/23 12:25 17:23 17:25 Glucose POC Glucose 270 H 391 H* 391 H* 08/24/23 08/24/23 08/24/23 20:33 22:19 23:39 Glucose POC Glucose 450 H* 429 H* 455 H* 08/24/23 08/25/23 08/25/23 23:41 00:57 00:59 Glucose POC Glucose 448 H* 378 H* 410 H* 08/25/23 08/25/23 08/25/23 02:05 02:07 03:03 Glucose POC Glucose 369 H* 368 H* 369 H* 08/25/23 08/25/23 08/25/23 04:17 05:04 06:13 Glucose POC Glucose 311 H* 291 H 275 H 08/25/23 08/25/23 08/25/23 07:20 07:25 07:58 Glucose 215 H POC Glucose 236 H 213 H 08/25/23 08/25/23 08/25/23 09:03 10:04 11:01 Glucose POC Glucose 150 H 185 H 201 H OUTPATIENT ANTIDIABETIC REGIMEN: * Lantus 45 units SC QPM * Novolog 15 units SC TIDM * Victoza 1.2 mg SC daily * HbA1c 6.9% (07/07/23) ASSESSMENT: * Dev is a 78 YOM admitted with hypoxia on 08/20 with a history of T2DM. Pharmacy has been consulted for glycemic management and is familiar to the service from recent admissions. Last evening, Dev experienced significant hyperglycemia likely due to basal deficiency (Lantus was held since admission) and addition of prednisone to medication regimen and was subsequently started on an insulin drip. BSGs trended down slowly overnight into the 200s this AM. * Discussed case with roby Estrada to transition of the insulin drip this AM. Insulin NPH (0.4 units/kg) given to cover prednisone. Previous admissions, Dev's basal requirement was around 30 units daily. Will administer half of the basal requirement this AM and allow for within 15% of previous admission requirements based on evening BSGs. Plan to move Lantus to PM and continue NPH with prednisone in AM. * Novolog initiated at previously effective parameters, may need to be tightened based on prednisone and NPH response. PLAN FOR INPATIENT GLYCEMIC CONTROL: * Hold outpatient diabetes medications * Continue insulin drip until 6 hours post Lantus administration this AM (~1500 or until insulin drip turns off) * Basal insulin * Lantus 15 units SC x 1 this AM * Lantus 10-20 units SC this PM (see eMAR for additional details) * Insulin NPH 25 units SC QAM with prednisone * Bolus insulin with insulin drip running * NovoLog per scale ACHS * Nutritional / Prandial insulin per carb ratio of 1 unit per 3 grams CHO consumed * Bolus insulin after insulin drip shut off (starting with dinnertime) * NovoLog per scale ACHS or Q6hrs while NPO * Goal Range: Low 110 mg/dL - High 140 mg/dL * Correction Factor: 20 mg/dL/unit * Nutritional / Prandial insulin per carb ratio of 1 unit per 3 grams CHO consumed
[2023-08-25] MEDS: HEPARIN SODIUM/DEXTROSE 25,000 UNITS/500 ML BAG IV SCH (12:55)
[2023-08-25] MEDS ORDERED: DC IV INSULIN INFUSION 1 EA DEVI ONE ×3 (14:00→17:00)
[2023-08-25] MEDS: DIGOXIN 0.125 MG TAB PO SCH (15:26)
[2023-08-25] MEDS: guaiFENesin/DEXTROM SYRUP 200MG/20MG 10ML UDC PO PRN (15:26)
--- NOTE | 2023-08-25 16:35 | Hospitalist Progress Note ---
Date of Service August 25, 2023 Assessment & Plan (1) Hypoxia: (2) Interstitial lung disease: (3) Ischemic cardiomyopathy: (4) Chronic heart failure with reduced ejection fraction and diastolic dysfunction: Plan: Patient presenting from home with reports of shortness of breath x 2 days. Was at the wound care center today and was referred to the ED due to shortness of breath. Enterovirus infection Hypoxia multifactorial Interstitial lung disease, COPD, suspected TRIP, CHF with reduced EF and diastolic dysfunction H/O recent Pneumonia --CT Chest:Multisegmental multilobar dissipation of bilateral tree-in-bud nodules within a mid to lower lung zone predominant distribution compatible with an infectious or inflammatory bronchiolitis/pneumonitis. Emphysema with bibasilar fibrotic changes redemonstrated. Linear area of right apical consolid ation is suggestive of postinflammatory scarring. Attention on follow-up recommended. No pleural effusion or lymphadenopathy. --BioFire positive for enterovirus --Normal procalcitonin --Echo 06/2023-EF 35 to 40%, diastolic dysfunction --BNP 258 (improved from most recent results) --Repeat CT chest on 08/24/23 suggestive of progressive lower lobe consolidation with mucous plugging -- Sputum cultures pending --Received IV Lasix --Isolation precautions Monitor volume status closely Continue nebs Appreciate pulmonology input Continue Pulmonary hygiene with flutter valve, incentive spirometry, vest therapy Resumed home lasix Poor candidate for bronchoscopy due to comorbidities Appreciate ID input Plan to discontinue Zosyn after 5-day course. Doxycycline discontinued Continue on prednisone taper course --for 2 weeks Saturating well on 2 L supplemental oxygen currently Will need outpatient [facility] interstitial lung disease clinic follow-up for PFTs, HRCT and possible lung biopsy Left plantar foot wound Follows with wound clinic as outpatient Wound cultures growing Pseudomonas, Enterococcus faecalis No Infection currently as per ID Received Zosyn Continue local wound care Epistaxis Hold Eliquis Continue Humidification of supplemental oxygen Afrin as needed Monitor CBC and transfuse PRBCs as needed Will consider TXA nebs if uncontrollable, recurrent Trial of low dose IV heparin given Afib RVR No recurrence of epistaxis while on IV heparin (5) PAF (paroxysmal atrial fibrillation): Plan: A-fib RVR Continue metoprolol, digoxin Resume Eliquis as able Continue IV heparin for now (6) Tachy-noman syndrome: Plan: S/P pacemaker Management as above (7) Pacemaker: Plan: Chronic (8) Diabetic ulcer of left foot: Plan: Present on admission Follows with the wound care center Chronic orthostatic hypotension Continue Metoprolol Monitor BP (9) CAD (coronary artery disease): Plan: s/p CABG Continue statin and beta-annika (10) Type 2 diabetes mellitus: Plan: Hgb A1c 6.9 06/2023 Hold home agents and utilize NovoLog per protocol while hospitalized (11) Multiple myeloma: Plan: Follows with Dr. Garcia Treatment currently on hold DVT Px IV heparin Eliquis held Re: Epistaxis CODE STATUS DNR/DNI Admission and Anticipated Discharge Date Admission Date: August 20, 2023 Subjective Patient is seen and examined at bedside Subjectively feels better Saturating well on 2L supplemental oxygen Less cough/dyspnea today No recurrence of Epistaxis Denies any chest pain, nausea, vomiting, abdominal pain, dizziness Review of Systems Review of Systems: All systems reviewed & are unremarkable except as noted in Subjective Physical Exam Physical Exam: Physical Exam: Vitals signs as noted above General Appearance:Thin, Frail, no apparent distress Head: normocephalic, Atraumatic Eyes: normal inspection, EOMI Neck: supple, Trachea midline Respiratory/Chest: Decreased breath sounds, CTA, No accessory muscle use Cardiovascular: S1,S2 +murmur Abdomen/GI:Soft, Non tender, Bowel sounds present Extremities/Musculoskeletal:normal inspection, no edema Neurologic/Psych:AAOX3, grossly no focal neurological deficits Skin: normal color, warm Results & Data Results & Data Vital Signs (Past 12 Hours) Vital Signs Temp Pulse Resp BP Pulse Ox O2 Del Method O2 Flow Rate 08/25/23 15:41 36.3 C L 66 16 106/55 L 95 Nasal Cannula 2 08/25/23 13:50 67 18 95 Nasal Cannula 1 08/25/23 11:35 36.4 C L 60 16 104/44 L 97 Nasal Cannula 2 08/25/23 09:37 Nasal Cannula 1 08/25/23 08:44 62 16 106/56 L 95 Room Air 08/25/23 07:10 70 18 97 Nasal Cannula 1 Laboratory Results Short CBC 08/25/23 Range/Units 07:25 WBC 5.66 (4.8-10.8) K/ul Hgb 8.3 L (14.0-18.0) g/dl Hct 25.3 L (42.0-52.0) % Plt Count 108 L (130-400) K/uL BMP 08/25/23 07:25 Sodium 138 Potassium 4.1 Chloride 107 Carbon Dioxide 23 BUN 18 Creatinine 0.95 Glucose 215 H Calcium 8.8
[2023-08-25 17:26] LABS: Partial Thromboplastin Ratio 1.4; Partial Thromboplastin Time 38.2 Seconds (21.0-31.0)
[2023-08-25] MEDS: MELATONIN 3 MG TAB PO PRN (20:44)
[2023-08-25] MEDS: MIRTAZAPINE TAB 15 MG TAB PO SCH (20:48)
[2023-08-25] MEDS ORDERED: LANTUS PER UNIT CHARGE SC SCH (21:00)
[2023-08-26] MEDS: guaiFENesin/DEXTROM SYRUP 200MG/20MG 10ML UDC PO PRN ×2 (00:02→15:32)
[2023-08-26] MEDS: INSULIN ASPART PER UNIT CHARGE SC SCH ×6 (00:06→21:00)
[2023-08-26] MEDS: IPRATROPIUM BROMIDE NEB SOLN 0.02% 2.5 ML VIAL INH SCH ×4 (00:29→19:25)
[2023-08-26] MEDS: LEVALBUTEROL HCL 0.63 MG/3 ML NEB NEB SCH ×4 (00:29→19:25)
[2023-08-26 01:25] LABS: Partial Thromboplastin Ratio 1.4; Partial Thromboplastin Time 38.2 Seconds (21.0-31.0)
[2023-08-26] MEDS: SODIUM CHLOR 7% 4 ML NEB NEB SCH ×2 (07:19→19:38)
[2023-08-26 08:02] LABS: Basophils # (auto) 0.01 K/uL (0.00-0.20); Basophils % (auto) 0.2 %; Eosinophils # (auto) 0.04 K/uL (0.00-0.50); Eosinophils % (auto) 0.6 %; Hematocrit (blood only) 25.7 % (42.0-52.0); Hemoglobin 8.5 g/dl (14.0-18.0); Immature Granulocytes # (auto) 0.12 K/uL (0.01-0.20); Immature Granulocytes % (auto) 1.8 %; Lymphocytes # (auto) 0.87 K/uL (1.20-3.40); Lymphocytes % (auto) 13.2 %; Mean Corpuscular Hemoglobin 29.2 pg (25.0-34.0); Mean Corpuscular Hgb Conc 33.1 g/dL (32.0-36.0); Mean Corpuscular Volume 88.3 fL (80.0-100.0); Mean Platelet Volume 11.1 fL (9.4-12.4); Monocytes # (auto) 0.62 K/uL (0.11-0.59); Monocytes % (auto) 9.4 %; Neutrophils # (auto) 4.95 K/uL (1.40-6.50); Neutrophils % (auto) 74.8 %; Platelet Count 119 K/uL (130-400); RDW Coefficient of Variation 16.9 % (11.5-14.5); RDW Standard Deviation 53.3 fL (36.4-46.3); Red Blood Count 2.91 M/uL (4.70-6.10); White Blood Count 6.61 K/ul (4.8-10.8)
[2023-08-26 08:21] LABS: BUN Creatinine Ratio 25.3 (10-20); Creatinine Clr Calc Pharmacy 65.6 ml/min; Est GFR (African American) 96.5 ml/min; Est GFR (Non-African American) 83.2 ml/min; Potassium 4.2 mmol/L (3.5-5.1)
[2023-08-26 08:43] LABS: Partial Thromboplastin Ratio 1.5
[2023-08-26 08:48] LABS: Partial Thromboplastin Time 41.8 Seconds (21.0-31.0)
[2023-08-26] MEDS: HEPARIN SODIUM/DEXTROSE 25,000 UNITS/500 ML BAG IV SCH (09:08)
[2023-08-26] MEDS: POTASSIUM CHLORIDE CRTAB 20 MEQ TABCR PO SCH (09:10)
[2023-08-26] MEDS: LINACLOTIDE 145 MCG CAPSULE PO SCH (09:12)
[2023-08-26] MEDS: DOCUSATE SODIUM/SENNA 50/8.6MG TAB PO SCH (09:12)
[2023-08-26] MEDS: PANTOprazole 40 MG TAB PO SCH (09:12)
[2023-08-26] MEDS: ATORVASTATIN 40 MG TAB PO SCH (09:13)
[2023-08-26] MEDS: BENZONATATE 100 MG CAPSULE PO SCH ×3 (09:13→20:58)
[2023-08-26] MEDS: METOPROLOL SUCC 50MG EXT REL TAB PO SCH ×2 (09:13→20:57)
[2023-08-26] MEDS: METOPROLOL SUCC 25MG EXT REL TAB PO SCH (09:14)
[2023-08-26] MEDS: SODIUM CHLORIDE 0.65% NA SOLN 45 ML (OCEAN) SCH (09:15)
--- NOTE | 2023-08-26 09:25 | Pharmacy Report ---
Pharmacy Glycemic Short Note 2 - Date of Service August 26, 2023 - Glycemic Short BSG Results (Last 24 hours): 08/25/23 08/25/23 08/25/23 10:04 11:01 12:06 Glucose POC Glucose 185 H 201 H 203 H 08/25/23 08/25/23 08/25/23 13:08 14:03 14:57 Glucose POC Glucose 174 H 199 H 163 H 08/25/23 08/25/23 08/26/23 17:04 20:30 00:01 Glucose POC Glucose 203 H 225 H 161 H 08/26/23 08/26/23 08/26/23 04:05 07:44 08:08 Glucose 162 H POC Glucose 182 H 158 H OUTPATIENT ANTIDIABETIC REGIMEN: * Lantus 45 units SC QPM * Novolog 15 units SC TIDM * Victoza 1.2 mg SC daily * HbA1c 6.9% (07/07/23) ASSESSMENT: 08/26 * Drip transition yesterday was successfull. A total of 45 units of Lantus was administered (15 units x3 doses), which is the same as his nightly dose outpatient. NPH added to help cover prednisone-induced prandial elevations * Will continue NPH for now since prednisone is continuing * Will scale Lantus this evening based on BSG, up to home dose of 45 units * Difficult to assess Novolog regimen at this time due to concurrent drip yesterday. No changes for now 08/25 * Dev is a 78 YOM admitted with hypoxia on 08/20 with a history of T2DM. Pharmacy has been consulted for glycemic management and is familiar to the service from recent admissions. Last evening, Dev experienced significant hyperglycemia likely due to basal deficiency (Lantus was held since admission) and addition of prednisone to medication regimen and was subsequently started on an insulin drip. BSGs trended down slowly overnight into the 200s this AM. * Discussed case with roby Estrada to transition of the insulin drip this AM. Insulin NPH (0.4 units/kg) given to cover prednisone. Previous admissions, Dev's basal requirement was around 30 units daily. Will administer half of the basal requirement this AM and allow for within 15% of previous admission requirements based on evening BSGs. Plan to move Lantus to PM and continue NPH with prednisone in AM. * Novolog initiated at previously effective parameters, may need to be tightened based on prednisone and NPH response. PLAN FOR INPATIENT GLYCEMIC CONTROL: * Hold outpatient diabetes medications * Basal insulin * Lantus 15-45 units SC this PM (see eMAR for additional details) * Insulin NPH 25 units SC QAM with prednisone * Bolus insulin * NovoLog per scale ACHS or Q6hrs while NPO * Goal Range: Low 110 mg/dL - High 140 mg/dL * Correction Factor: 15 mg/dL/unit * Nutritional / Prandial insulin per carb ratio of 1 unit per 3 grams CHO consumed
[2023-08-26] MEDS: NovoLIN-N (NPH) PER UNIT CHARGE SQ SCH (10:24)
[2023-08-26] MEDS: predniSONE 20 MG TAB PO SCH (10:25)
[2023-08-26] MEDS ORDERED: APIXABAN 5 MG TABLET PO STA (12:06)
[2023-08-26] MEDS: GABAPENTIN 300 MG CAP PO SCH ×2 (12:10→20:58)
--- NOTE | 2023-08-26 14:46 | Hospitalist Progress Note ---
Date of Service August 26, 2023 Assessment & Plan (1) Hypoxia: (2) Interstitial lung disease: (3) Ischemic cardiomyopathy: (4) Chronic heart failure with reduced ejection fraction and diastolic dysfunction: Plan: Patient presenting from home with reports of shortness of breath x 2 days. Was at the wound care center today and was referred to the ED due to shortness of breath. Enterovirus infection Hypoxia multifactorial Interstitial lung disease, COPD, suspected TRIP, CHF with reduced EF and diastolic dysfunction H/O recent Pneumonia --CT Chest:Multisegmental multilobar dissipation of bilateral tree-in-bud nodules within a mid to lower lung zone predominant distribution compatible with an infectious or inflammatory bronchiolitis/pneumonitis. Emphysema with bibasilar fibrotic changes redemonstrated. Linear area of right apical consolid ation is suggestive of postinflammatory scarring. Attention on follow-up recommended. No pleural effusion or lymphadenopathy. --BioFire positive for enterovirus --Normal procalcitonin --Echo 06/2023-EF 35 to 40%, diastolic dysfunction --BNP 258 (improved from most recent results) --Repeat CT chest on 08/24/23 suggestive of progressive lower lobe consolidation with mucous plugging -- Sputum cultures pending --Received IV Lasix --Isolation precautions Monitor volume status closely Continue nebs Appreciate pulmonology input Continue Pulmonary hygiene with flutter valve, incentive spirometry, vest therapy Resumed home lasix Poor candidate for bronchoscopy due to comorbidities Appreciate ID input Completed 5-day course of Zosyn Continue on prednisone taper course --for 2 weeks Saturating well on 1 L supplemental oxygen currently Will need outpatient [facility] interstitial lung disease clinic follow-up for PFTs, HRCT and possible lung biopsy Wean off of supplemental oxygen as able Continue PT OT--May need rehab placement Left plantar foot wound Follows with wound clinic as outpatient Wound cultures growing Pseudomonas, Enterococcus faecalis No Infection currently as per ID Received Zosyn Continue local wound care Epistaxis Continue Humidification of supplemental oxygen Afrin as needed Monitor CBC and transfuse PRBCs as needed Will consider TXA nebs if uncontrollable, recurrent No recurrence of epistaxis while on IV heparin (5) PAF (paroxysmal atrial fibrillation): Plan: A-fib RVR Continue metoprolol, digoxin Discontinue IV heparin Resume Eliquis today (6) Tachy-noman syndrome: Plan: S/P pacemaker Management as above (7) Pacemaker: Plan: Chronic (8) Diabetic ulcer of left foot: Plan: Present on admission Follows with the wound care center Chronic orthostatic hypotension Continue Metoprolol Monitor BP (9) CAD (coronary artery disease): Plan: s/p CABG Continue statin and beta-annika (10) Type 2 diabetes mellitus: Plan: Hgb A1c 6.9 06/2023 Hold home agents and utilize NovoLog per protocol while hospitalized (11) Multiple myeloma: Plan: Follows with Dr. Garcia Treatment currently on hold DVT Px Eliquis CODE STATUS DNR/DNI Disposition May need rehab placement Admission and Anticipated Discharge Date Admission Date: August 20, 2023 Subjective Patient is seen and examined at bedside States feeling better today No new complaints Requiring 1 L supplemental oxygen to maintain sats Cough much improved Denies any chest pain, dyspnea, nausea, vomiting, abdominal pain, dizziness Review of Systems Review of Systems: All systems reviewed & are unremarkable except as noted in Subjective Physical Exam Physical Exam: Physical Exam: Vitals signs as noted above General Appearance:Thin, Frail, no apparent distress Head: normocephalic, Atraumatic Eyes: normal inspection, EOMI Neck: supple, Trachea midline Respiratory/Chest: Decreased breath sounds, CTA, No accessory muscle use Cardiovascular: S1,S2 +murmur Abdomen/GI:Soft, Non tender, Bowel sounds present Extremities/Musculoskeletal:normal inspection, no edema Neurologic/Psych:AAOX3, grossly no focal neurological deficits Skin: normal color, warm Results & Data Results & Data Vital Signs (Past 12 Hours) Vital Signs Temp Pulse Pulse Resp BP BP Pulse Ox 08/26/23 13:59 75 16 92 08/26/23 12:00 92/54 L 08/26/23 11:42 36.3 C L 78 16 83/51 L 95 08/26/23 07:53 98 H 16 129/74 92 08/26/23 07:19 70 18 97 08/26/23 07:00 60 08/26/23 07:00 08/26/23 04:10 36.6 C 78 16 136/72 94 O2 Del Method O2 Flow Rate 08/26/23 13:59 Nasal Cannula 1 08/26/23 12:00 08/26/23 11:42 Nasal Cannula 1 08/26/23 07:53 Room Air 08/26/23 07:19 Nasal Cannula 1 08/26/23 07:00 08/26/23 07:00 Room Air 08/26/23 04:10 Nasal Cannula 1 Laboratory Results Short CBC 08/26/23 Range/Units 07:44 WBC 6.61 (4.8-10.8) K/ul Hgb 8.5 L (14.0-18.0) g/dl Hct 25.7 L (42.0-52.0) % Plt Count 119 L (130-400) K/uL BMP 08/26/23 07:44 Sodium 140 Potassium 4.2 Chloride 108 H Carbon Dioxide 25 BUN 22 Creatinine 0.87 Glucose 162 H Calcium 9.0
--- OUTSIDE RECORDS SUMMARY | 2023-08-26 18:10 | External Medical Summary | Summary of Care ---
Author Name Unknown Organization [facility] Address [address] [address] Phone [phone] Care Team Providers Care [employer] Furnace Melter Name Role Phone AhsanLanden nava Primary Care Provider [phone] Encounter Details Date Type Department Care Team Description 07/28/2023 Orders Only Hematology/Oncology [facility] Charleen Ramirez [address] [facility] [place] [address] Chito Garcia MD [address] [facility] [place] [address] Allergies Active Allergy Reactions Severity Noted Date Comments Tizanidine 06/27/2021 documented as of this encounter (statuses as of 08/02/2023) Medications Medication Sig Dispensed Refills Start Date End Date Status LANCET DEVICE MISCIndications: DM type 2, not at goal (HCC) test bid 100 3 7 Active OMEGA 3 1000 MG PO CAPSIndications: Chronic ischemic heart disease,Dyslipid emia, goal LDL below 70 2 per day 90 Cap 0 3 Active Calcium Carbonate-Vitami n D 600-400 MG-UNIT Oral TabletIndication s:Multiple myeloma not having achieved remission (HCC) Take by mouth 1 Tablet in the morning AND 1 Tablet before bedtime. 60 Tablet 2 2 Active Additional Information Patient taking differently:1 Tablet OralDaily(AM), Take 1 tablet daily, Reason: per Dr. Garcia, Reported on 11/12/2022 Dexcom G6 SensorIndication s:Type 2 diabetes mellitus with peripheral vascular disease (HCC) Use to check blood sugars. Change every 10 days 3 Each 3 2 Active Dexcom G6 TransmitterIndic ations:Type 2 diabetes mellitus with peripheral vascular disease (HCC) Use to check blood sugars. Change every 3 months 1 Each 3 2 Active Albuterol Sulfate HFA 108 (90 Base) MCG/ACT Inhalation Aerosol Solution Inhale by mouth 2 Puffs every 6 hours as needed for Cough, Shortness of Breath or Wheezing. 18 g 3 2 Active A60-Jbnxle 1 MG Oral Tablet Chewable (Methylcobalamin ) Take by mouth daily . 0 Active Eliquis 5 MG Oral Tablet (Apixaban) TAKE 1 TABLET BY MOUTH TWICE A DAY 60 Tablet 11 3 Active Omeprazole 20 MG Oral Capsule Delayed Release (PriLOSEC)Indica tions:Gastroesop hageal reflux disease without esophagitis Take 1 Capsule by mouth in the morning. 90 Capsule 3 3 Active Calcium + Vitamin D3 600-10 MG-MCG Oral Tablet (Calcium Carb-Cholecalcif carson)Indications :Multiple myeloma not having achieved remission (HCC) TAKE 1 TABLET BY MOUTH EVERY DAY IN THE MORNING AND BEFORE BEDTIME 180 Tablet 2 3 Active NovoLOG FlexPen 100 UNIT/ML Subcutaneous Solution Pen-injector (insulin aspart)Indicatio ns:Type 2 diabetes mellitus with hemoglobin A1c goal of less than 8.0% (HCC) Inject 15 Units under the skin in the morning and 15 Units at noon and 15 Units in the evening. Inject with meals. Plus correction factor of 1:25 over 150. Max Daily Dose of 75 Units.. 75 mL 3 3 Active Prochlorperazine Maleate 10 MG Oral Tablet (Compazine)Indic ations:Multiple myeloma not having achieved remission (HCC) Take 1 Tablet by mouth every 6 hours as needed for Nausea. 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 18 mL 3 3 Active BD Pen Needle Short U/F 31G X 8 MM (Insulin Pen Needle)Indicatio ns:Type 2 diabetes mellitus with hemoglobin A1c goal of less than 8.0% (HCC) USE DIRECTED WITH insulins 500 Each 3 3 Active Morphine Sulfate 15 MG Oral Tablet (Msir)Indication s:Cancer related pain Take 1 Tablet by mouth every 4 hours as needed for Pain, Severe. 120 Tablet 0 3 Active Klor-Con M20 20 MEQ Oral Tablet Extended Release (Potassium Chloride ER) TAKE 1 TABLET BY MOUTH IN THE MORNING AND BEFORE BEDTIME 180 Tablet 1 3 Active Digoxin 125 MCG Oral Tablet (Lanoxin) Take 1 Tablet by mouth every other day. 90 Tablet 3 3 Active Ondansetron HCl 8 MG Oral Tablet (Zofran)Indicati ons:Multiple myeloma not having achieved remission (HCC) Take 1 Tablet by mouth every 8 hours as needed for Nausea. 30 Tablet 2 3 Active Gabapentin 300 MG Oral Capsule (Neurontin)Indic ations:Sensory neuropathy Take 1 Capsule by mouth in the morning and 1 Capsule in the evening. 180 Capsule 3 3 Active Linzess 145 MCG Oral Capsule (linaCLOtide)Ind ications:Therape utic opioid induced constipation Take 1 Capsule by mouth daily before breakfast. 90 Capsule 3 3 Active Mirtazapine 30 MG Oral Tablet (Remeron) Take 1 Tablet by mouth at bedtime. 30 Tablet 5 3 Active Lenalidomide 10 MG Oral Capsule (Revlimid)Indica tions:Multiple myeloma not having achieved remission (HCC) TAKE 1 CAPSULE BY MOUTH 1 TIME A DAY FOR 21 DAYS ON, THEN 7 DAYS OFF. 21 Capsule 0 3 Active Metoprolol Succinate ER 25 MG Oral Tablet Extended Release 24 Hour (toPROL XL) Take 1 Tablet by mouth in the morning. 0 3 Active dexAMETHasone 4 MG Oral Tablet (Decadron)Indica tions:Multiple myeloma not having achieved remission (HCC) Take 20mg once a week 120 Tablet 1 3 Active Metoprolol Succinate ER 50 MG Oral Tablet Extended Release 24 Hour (toPROL XL) Take 1 Tablet by mouth in the morning and 1 Tablet before bedtime. 180 Tablet 3 3 Active Senna 8.6 MG Oral Tablet Take 2 Tablets by mouth at bedtime as needed for Constipation. 60 Tablet 1 3 Active Atorvastatin Calcium 40 MG Oral Tablet (Lipitor)Indicat ions:Dyslipidemi a, goal LDL below 70 TAKE 1 TABLET BY MOUTH EVERY DAY 90 Tablet 1 3 Active Insulin Glargine Solostar 100 UNIT/ML Subcutaneous Solution Pen-injector (Basaglar KwikPen)Indicati ons:Type 2 diabetes mellitus with hemoglobin A1c goal of less than 8.0% ([facility]) Inject 40 Units under the skin every night at bedtime. 45 mL 1 3 07/30/20 23 Discontinued(Med ication/Dose Changed) Furosemide 40 MG Oral Tablet (Lasix) Take 1 Tablet by mouth in the morning. On Wednesday- y-Wednesday only. 0 3 07/30/20 23 Discontinued documented as of this encounter (statuses as of 08/02/2023) Active Problems Problem Noted Date COPD, group A, by GOLD 2017 classificati on 06/14/2023 ILD (interstitial lung disease) 06/14/20 Chronic systolic (congestive) heart fail ure 06/25/2022 Coronary artery disease invo lving [facility] coronary artery of 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 ADVANCE DIRECTIVE INFORMATION 08/04/2005 CHR ISCHEMIC HRT DIS NOS 07/28/2001 Hip joint replacement status 10/18/1996 Aortocoronary bypass status 10/18/1993 documented as of this encounter (statuses as of 08/02/2023) Resolved Problems Problem Noted Date Resolved Date Non-pressure chronic ulcer o f other part of left foot with other specified severity 11/25/2018 06/20/2021 Pressure ulcer of other site, unstageable 201803/08/2019 Peripheral vascular disease with claudication 08/09/2018 Type 2 diabetes mellitus wit h hemoglobin A1c goal of less than 7.0% 08/15/2009 10/31/2014 Overview: Per Diabetes Taxonomy. ICD-10 update of inactive term Type 2 diabetes mellitus wit h hemoglobin A1c goal of less than 7.0% 09/06/2007 08/15/2009 Overview: Per Diabetes Taxonomy. ICD-10 update of inactive term ELEV TRANSAMINASE-LDH 08/26/2006 05/26/2018 PURE HYPERCHOLESTEROLEM 02/16/2006 10/02/20 09 Overview: Per Lipid Taxonomy. Malignant neoplasm of skin of parts of face 01/1705/26/2018 Overview: 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,rt pentecostal 07/05/2002 0 05/26/2018 Rosacea 07/28/2001 05/26/2018 LOC PRIM [id number] 07/28/2001 05/26/20 18 documented as of this encounter (statuses as of 08/02/2023) Immunizations Name Administration Dates Next Due COVID-19 mRNA, LNP-s, No Pre serve, 2-Dose Series (Moderna) 08/27/2021,01/04/2021,12/02/2020 COVID-19, mRNA, LNP-s, PF, B ooster, 100mcg/0.5mg (Moderna) 05/07/2022 Covid-19, Mrna, Lnp-s, Pf, B ivalent, 30 Mcg, IM, 12 yrs and above (Pfizer) 09/04/2022 H1N1 2009 Influenza, IM 09/22/2009 PPD 05/14/2022,05/05/2022 Pneumococcal Conjugate Vacc, 13 Valent (Prevnar) 03/01/2017 Pneumococcal Polysaccharide PPV23 (Pneumovax) 09/06/2007 SEASONAL INFLUENZA, PF, 6 M & Above, IM , (FLULAVAL or FLUZONE) 07/03/2020,08/04/2019 Seasonal Influenza Virus Vac cine, Unspecified Formulation 07/21/2021,07/03/2020,08/04/2019,08/22,07/30/2012,08/18/2011,09/04/2009 ,10/15/2008,09/01/2008,09/06/2007,07/18,08/25/2005,09/24/2003 Seasonal Influenza, Quadriva lent Hd (Fluzone Hd) 07/07/2022,07/21/2021,07/09/2021(Defer red: Patient Refused) Seasonal Influenza, Split, I IV3, With Preserve, Inj 08/22/2013,07/30/2012,08/18/2011,09/04,09/01/2008,09/06/2007,07/27/2006 TDAP (age 10 and older)(Boostrix) 04/02/2022 Varicella Zoster Vaccine (Adult) 12/27/2012 Zoster Vaccine Recombinant (Shingrix) 12/27/2012 documented as of this encounter Social History Tobacco Use Types Packs/Day Years Used Date Smoking Tobacco: Former Cigarettes 1.5 25 Q uit: 10/18/1979 Smokeless Tobacco: Never Comments:occ. cigar Alcohol Use Standard Drinks/Week Comments Not Currently 0 (1 standard drink = 0.6 oz pur e alcohol) Sex Assigned at Date Recorded Not on file Job Start Date Occupation Industry Not on file Not on file Not on file documented as of this encounter Plan of Treatment Upcoming Encounters Date Type Specialty Care Team Description 08/04/2023 Office Visit Family Medicine Landen Macario DO [address] [place] [address] 08/16/2023 Pharmacy Pharmacy Pharmacist1, [facility] [address] [place] [address] 08/19/2023 Scheduled Telephone Pharmacy Ivana [facility] [address] [place], [place] [id number] 09/20/2023 Office Visit Hematology Oncology Chito Garcia MD [address] [facility] [place] [address] 10/01[facility]20[facility] [address] 01/17/2024 Office Visit Family Medicine Landen Macario, DO [address] [place] [address] Health Maintenance Due Date Last Done Comments Alpha-1 Antitrypsin 1963 Hepatitis B (3 of 3 - 19+ 3-dose series) 04/17/1994 11/18/1993, 10/18/1993 Zoster Vaccines (2 of 2) 02/21/2013 12/27/2012, 12/16 Pneumococcal Vaccine: 65+ Years (3 - PPSV23 or PCV20) 03/01/2018 03/01/2017, 09/06/2007 Albumin/Creatinine Ratio 12/14/2019 019, 01/03/2018, 06/26/2016, Additional history exists Diabetic Foot Exam 09/16/2021 09/16/2020, 0 12/16/2015, 03/06/2015, Additional history exists Depression Screening 05/20/2023 05/20/2022 COVID-19 Vaccine ( season) 2023 09/04/2022, 05/07/2022, 08/27/2021, Additional history exists DIABETES-EYE EXAM 09/09/2023 09/09/2022, , 10/25/2019, Additional history exists HbA1c 12/15/2023 06/14/2023, 02/15, 01/04/2023, Additional history exists DIG LEVEL FOR MEDICATION MONITORING YEARLY 01/05/2024 01/04/2023, 10/08/2022, 05/15/2022 B-12 03/02/2024 03/02/2023, 07/0 02/2022, 07/08/2021, Additional history exists O2 ASSESSMENT COMPLETED IN PAST YEAR FOR COPD 07/22/2024 08/02/2023 GFR 08/02/2024 08/02/2023, 06/18, 05/25/2023, Additional history exists DTaP,Tdap,and Td Vaccines (2 - Td or Tdap) 04/02/2032 04/02/2022 COLONOSCOPY-EVERY 5 YRS AGES 18-100 Discontinued 11/16/2016, 11/16/2016, 07/16/2006 Influenza Vaccine (FLU shot) Completed 08/02/2023, 07/07/2022, 07/21/2021, Additional history exists GARDASIL-HPV IMMUNIZATION SERIES Aged Out No longer eligible based on patient's age to complete this topic MENINGOCOCCAL (MENACTRA/MENVEO) Aged Out No longer eligible based on patient's age to complete this topic documented as of this encounter Medical Devices Implanted Type Area Cause Analyst Device Identifier Shelf Expiration Date Model / Serial / Lot Lens Intraoc 24.0 - [id number] - [id number] Implanted:Qty: 1 on 08/16/2018 by Adan Colon MD at OR [facility] Right: Eye [employer] 11/17/2022 [id number] / [id number] / [id number] Lens Intraoc 24.0 - [id number] - [id number] Implanted:Qty: 1 on 08/23/2018 by Adan Colon MD at OR [facility] Left: Eye [employer]OM[employer] 06/17/2023 [id number] / [id number] / [id number] Screw [employer] [id number] - [id number] Implanted:Qty: 1 on 12/07/2019 by Amilcar Saavedra MD at OR [facility] Left: Foot [employer] [id number] / / documented as of this encounter Advance Directives Latest Code Status on File Code Status Date Activated Date Inactivated Comments Full Code 12/07/2019 9:21 AM 12/07/2019 2:51 PM This order reflects the patients wishes and were consensually agreed upon. Code Status History Code Status Date Activated Date Inactivated Comments Full Code 08/23/2018 10:12 AM 08/23/2018 4:44 PM This order reflects the patients wishes and were consensually agreed upon. Full Code 08/16/2018 6:19 AM 08/16/2018 1:04 PM Thi s order reflects the patients wishes and were consensually agreed upon. Care Teams [employer] Relationship Specialty Start Date End Date Landen Macario, DO [address] [place] [address] PCP - General Family Medicine 02/09/22 documented as of this encounter
--- OUTSIDE RECORDS SUMMARY | 2023-08-26 18:10 | External Medical Summary | Summary of Care ---
Author Name Unknown Organization [facility] Address [address] [place] [address] Phone [phone] Care Team Providers Care Machine Bookkeeper Name Role Phone Landen Macario DO Primary Care Provider [phone] Reason for Visit * Reason Onset Date Comments Hospital Follow-Up Hospital Follow-Up 08/04/2023 Encounter Details Date Type Department Care Team (Late st Contact Info) Description 08/04/2023 1:40 PM EDT Office Visit [facility] [address] [facility] [address] Landen Macario DO [address] [place] [address] Dizziness*; Orthostatic hypotension; Hospital discharge follow-up; Need for vaccination; Type 2 diabetes mellitus with hemoglobin A1c goal of less than 8.0% ([facility]); Paroxysmal atrial fibrillation ([facility]); Multiple myeloma not having achieved remission ([facility]) Allergies Active Allergy Reactions Criticality Noted Date Comments Tizanidine 06/27/2021 documented as of this encounter (statuses as of 08/09/2023) Medications Medication Sig Dispensed Refills Start Date End Date Status LANCET DEVICE MISCIndications:DM type 2, not at goal (HCC) test bid 100 3 07/27/2007 Active OMEGA 3 1000 MG PO CAPSIndications:Ch ronic ischemic heart disease,Dyslipidem ia, goal LDL below 70 2 per day 90 Cap 0 08/22/2013 Active Calcium Carbonate-Vitamin D 600-400 MG-UNIT Oral TabletIndications: Multiple myeloma not having achieved remission (HCC) Take by mouth 1 Tablet in the morning AND 1 Tablet before bedtime. 60 Tablet 2 12/15/2021 Active Additional Information Patient taking differently:1 Tablet OralDaily(AM), Take 1 tablet daily, Reason: per Dr. Garcia, Reported on 11/12/2022 Dexcom G6 SensorIndications: Type 2 diabetes mellitus with peripheral vascular disease (HCC) Use to check blood sugars. Change every 10 days 3 Each 3 02/02/2022 Active Dexcom G6 TransmitterIndicat ions:Type 2 diabetes mellitus with peripheral vascular disease (HCC) Use to check blood sugars. Change every 3 months 1 Each 3 02/02/2022 Active Albuterol Sulfate HFA 108 (90 Base) MCG/ACT Inhalation Aerosol Solution Inhale by mouth 2 Puffs every 6 hours as needed for Cough, Shortness of Breath or Wheezing. 18 g 3 04/03/2022 Active F52-Diskxn 1 MG Oral Tablet Chewable (Methylcobalamin) Take by mouth daily . 0 Active Eliquis 5 MG Oral Tablet (Apixaban) TAKE 1 TABLET BY MOUTH TWICE A DAY 60 Tablet 11 11/17/2022 Active Omeprazole 20 MG Oral Capsule Delayed Release (PriLOSEC)Indicati ons:Gastroesophage al reflux disease without esophagitis Take 1 Capsule by mouth in the morning. 90 Capsule 3 12/04/2022 Active Calcium + Vitamin D3 600-10 MG-MCG Oral Tablet (Calcium Carb-Cholecalcifer ol)Indications:Mul tiple myeloma not having achieved remission (HCC) TAKE 1 TABLET BY MOUTH EVERY DAY IN THE MORNING AND BEFORE BEDTIME 180 Tablet 2 12/14/2022 Active NovoLOG FlexPen 100 UNIT/ML Subcutaneous Solution Pen-injector (insulin aspart)Indications :Type 2 diabetes mellitus with hemoglobin A1c goal of less than 8.0% (HCC) Inject 15 Units under the skin in the morning and 15 Units at noon and 15 Units in the evening. Inject with meals. Plus correction factor of 1:25 over 150. Max Daily Dose of 75 Units.. 75 mL 3 12/30/2022 Active Prochlorperazine Maleate 10 MG Oral Tablet (Compazine)Indicat ions:Multiple myeloma not having achieved remission (HCC) Take 1 Tablet by mouth every 6 hours as needed for Nausea. 30 Tablet 2 01/27/2023 Active Dexcom G7 Sensor Use to check blood sugar 1 Each 3 03/04/2023 Active Dexcom G7 Table Machine Operator Device Use to check blood sugar 1 Each 1 03/04/2023 Active Victoza 18 MG/3ML Subcutaneous Solution Pen-injector (Liraglutide)Indic ations:Type 2 diabetes mellitus with peripheral vascular disease (HCC) Inject 1.2 mg under the skin in the morning. 18 mL 3 03/30/2023 Active BD Pen Needle Short U/F 31G X 8 MM (Insulin Pen Needle)Indications :Type 2 diabetes mellitus with hemoglobin A1c goal of less than 8.0% (HCC) USE DIRECTED WITH insulins 500 Each 3 04/18/2023 Active Morphine Sulfate 15 MG Oral Tablet (Msir)Indications: Cancer related pain Take 1 Tablet by mouth every 4 hours as needed for Pain, Severe. 120 Tablet 0 05/05/2023 Active Klor-Con M20 20 MEQ Oral Tablet Extended Release (Potassium Chloride ER) TAKE 1 TABLET BY MOUTH IN THE MORNING AND BEFORE BEDTIME 180 Tablet 1 05/17/2023 Active Digoxin 125 MCG Oral Tablet (Lanoxin) Take 1 Tablet by mouth every other day. 90 Tablet 3 05/19/2023 Active Ondansetron HCl 8 MG Oral Tablet (Zofran)Indication s:Multiple myeloma not having achieved remission (HCC) Take 1 Tablet by mouth every 8 hours as needed for Nausea. 30 Tablet 2 06/14/2023 Active Gabapentin 300 MG Oral Capsule (Neurontin)Indicat ions:Sensory neuropathy Take 1 Capsule by mouth in the morning and 1 Capsule in the evening. 180 Capsule 3 06/14/2023 Active Linzess 145 MCG Oral Capsule (linaCLOtide)Indic ations:Therapeutic opioid induced constipation Take 1 Capsule by mouth daily before breakfast. 90 Capsule 3 06/14/2023 Active Mirtazapine 30 MG Oral Tablet (Remeron) Take 1 Tablet by mouth at bedtime. 30 Tablet 5 06/14/2023 Active Lenalidomide 10 MG Oral Capsule (Revlimid)Indicati ons:Multiple myeloma not having achieved remission (HCC) TAKE 1 CAPSULE BY MOUTH 1 TIME A DAY FOR 21 DAYS ON, THEN 7 DAYS OFF. 21 Capsule 0 07/07/2023 Active Metoprolol Succinate ER 25 MG Oral Tablet Extended Release 24 Hour (toPROL XL) Take 1 Tablet by mouth in the morning. 0 06/30/2023 Active dexAMETHasone 4 MG Oral Tablet (Decadron)Indicati ons:Multiple myeloma not having achieved remission (HCC) Take 20mg once a week 120 Tablet 1 07/23/2023 Active Metoprolol Succinate ER 50 MG Oral Tablet Extended Release 24 Hour (toPROL XL) Take 1 Tablet by mouth in the morning and 1 Tablet before bedtime. 180 Tablet 3 07/23/2023 Active Senna 8.6 MG Oral Tablet Take 2 Tablets by mouth at bedtime as needed for Constipation. 60 Tablet 1 07/23/2023 Active Atorvastatin Calcium 40 MG Oral Tablet (Lipitor)Indicatio ns:Dyslipidemia, goal LDL below 70 TAKE 1 TABLET BY MOUTH EVERY DAY 90 Tablet 1 07/27/2023 Active Furosemide 20 MG Oral Tablet (Lasix) Take 1 Tablet by mouth once a day on Wednesday, Wednesday, and Wednesday only. 0 07/29/2023 Active Abrysvo 120 MCG/0.5ML Intramuscular Solution Reconstituted (RSV Pre-Fusion F A&B Vac Rcmb) Inject 0.5 mL into a large muscle once for 1 dose. 0.5 mL 0 08/04/2023 08/04/20 23 Discontinue d(Refill) Abrysvo 120 MCG/0.5ML Intramuscular Solution Reconstituted (RSV Pre-Fusion F A&B Vac Rcmb) Inject 0.5 mL into a large muscle once for 1 dose. 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 03/03/2022 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 03/03/2022 Metastatic cancer to bone 10/22/2021 Acute systolic congestive heart failure 10/08/20 21 Multiple myeloma not having achieved remission 1 10/28/2020 Diabetic peripheral neuropat hy associated with type 2 diabetes mellitus 09/08/2019 Gastroesophageal reflux disease without esophagi tis 03/15/2019 intermission coordinator (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 of insulin 11/25/2018 Paroxysmal atrial fibrillation 11/25/2018 History of melanoma in situ 09/19/2018 Type 2 diabetes mellitus with peripheral vascula r disease 05/26/2018 Type 2 diabetes mellitus wit h hemoglobin A1c goal of less than 8.0% 01/10/2015 Overview: ICD-10 update of inactive term DYSLIPIDEMIA, GOAL LDL BELOW 70 10/02/2009 Overview: Per Lipid Taxonomy. ADVANCE DIRECTIVE INFORMATION 08/04/2005 CHR ISCHEMIC HRT DIS NOS 07/28/2001 Hip joint replacement status 10/18/1996 Aortocoronary bypass status 10/18/1993 documented as of this encounter (statuses as of 08/09/2023) Resolved Problems Problem Noted Date Diagnosed Date Resolved Date Non-pressure chronic ulcer o f other part of left foot with other specified severity 11/25/2018 06/20/2021 Pressure ulcer of other site, unstageable 11/25/2018 03/08/2019 Peripheral vascular disease with claudication 06/18/20 11 08/09/2018 Type 2 diabetes mellitus wit h hemoglobin A1c goal of less than 7.0% 08/15/2009 10/31/2014 Overview: Per Diabetes Taxonomy. ICD-10 update of inactive term Type 2 diabetes mellitus wit h hemoglobin A1c goal of less than 7.0% 09/06/2007 08/15/2009 Overview: Per Diabetes Taxonomy. ICD-10 update of inactive term ELEV TRANSAMINASE-LDH 08/26/20062017 PURE HYPERCHOLESTEROLEM 02/16/200609/17 Overview: Per Lipid Taxonomy. Malignant neoplasm of skin of parts of face 02/13/2005 05/26/2018 Overview: 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,rt shinto 07/05/2002 05/26/2018 Rosacea 07/28/2001 05/26/2018 LOC PRIM [id number] 07/28/200106/2018 documented as of this encounter (statuses as of 08/09/2023) Immunizations Name Administration Dates Next Due COVID-19 mRNA, LNP-s, No Pre serve, 2-Dose Series (Moderna) 08/27/2021,01/04/2021,12/02/2020 COVID-19, mRNA, LNP-s, PF, B ooster, 100mcg/0.5mg (Moderna) 05/07/2022 Covid-19, Mrna, Lnp-s, Pf, B ivalent, 30 Mcg, IM, 12 yrs and above (Pfizer) 09/04/2022 H1N1 2009 Influenza, IM 09/22/2009 PPD 05/14/2022,05/05/2022 Pneumococcal Conjugate Vacc, 13 Valent (Prevnar) 03/01/2017 Pneumococcal Polysaccharide PPV23 (Pneumovax) 09/06/2007 RSV Vac., Bivalent, Perfusio n F, Pf,0.5 Ml (Abrysvo) 08/04/2023 SEASONAL INFLUENZA, PF, 6 M & Above, IM , (FLULAVAL or FLUZONE) 07/03/2020,08/04/2019 Seasonal Influenza Virus Vac cine, Unspecified Formulation 07/21/2021,07/03/2020,08/04/2019,08/22,07/30/2012,08/18/2011,09/04/2009 ,10/15/2008,09/01/2008,09/06/2007,07/18,08/25/2005,09/24/2003 Seasonal Influenza, Quadriva lent Hd (Fluzone Hd) 08/02/2023,07/07/2022,07/21/2021,07/09(Deferred: Patient Refused) Seasonal Influenza, Split, I IV3, [...] drink = 0.6 oz pur e alcohol) PHQ-2 Answer Date Recorded PHQ Adult Total Score 0 05/20/2022 Sex and Gender Information Value Date Recorded Sex Assigned at Not on file Gender Identity Not on file Sexual Orientation Not on file Job Start Date Occupation Industry Not on file Not on file Not on file documented as of this encounter Last Filed Vital Signs Vital Sign Reading Time Taken Comments Blood Pressure 110/58 08/04/2023 1:42 PM EDT Pulse 87 08/04/2023 1:42 PM EDT Temperature 35.6 C (96.1 F) 08/04/2023 1:42 PM ED T Respiratory Rate 16 08/04/2023 1:42 PM EDT Oxygen Saturation 98% 08/04/2023 1:42 PM EDT Inhaled Oxygen Concentration - - Weight 68 kg (150 lb) 08/04/2023 1:42 PM EDT Height - - Body Mass Index 20.49 01/11/2023 3:38 PM EDT documented in this encounter Progress Notes * Landen Macario, DO - 08/04/2023 1:57 PM EDT Subjective: Dev Hernandez is a 78 year old male. Chief Complaint Patient presents with Hospital Follow-Up Hospital Follow-Up HPI: Pt to the hospital on 07/28 with low blood pressure. He was at cardiology and his BP was low enough to send him to the ER. He was fatigued and sleeping most of the day. His lasix was decreased to 20 mg MWF and he was continued on his metoprolol dose. He has a chronic foot infection but is already seeing wound care for it. Since the hospital he feels good. Lot better per . No dizziness. No trouble standing. He checksit every morning and sometimes through the day. In the AM 110s/50s. Ssometimes holding metoprolol with evening until later but always givign it to him. No swelling in his legs on the lower dose of lasix. If anything his breathing is better. They started to alternate the Lasix and digoxin and that helped with his BP. Weighing himself daily. Infection in his foot discussed. Abx done. We discussed his immune system and chemo. PMHx, meds, and allergies reviewed Patient Active Problem List Diagnosis Code Aortocoronary bypass status Z95.1 Hip joint replacement status Z96.649 CHR ISCHEMIC HRT DIS NOS I25.9 ADVANCE DIRECTIVE INFORMATION DYSLIPIDEMIA, GOAL LDL BELOW 70 E78.5 Type 2 diabetes mellitus with hemoglobin A1c goal of less than 8.0% ([facility]) E11.9 Type 2 diabetes mellitus with peripheral vascular disease ([facility]) E11.51 History of melanoma in situ Z86.006 custodial (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 of insulin ([facility]) Z79.4 Paroxysmal atrial fibrillation ([facility]) I48.0 Gastroesophageal reflux disease without esophagitis K21.9 Diabetic peripheral neuropathy associated with type 2 diabetes mellitus ([facility]) E11.42 Multiple myeloma not having achieved remission ([facility]) C90.00 Acute systolic congestive heart failure ([facility]) I50.21 Metastatic cancer to bone ([facility]) C79.51 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 ([facility]) D80.3 Selective deficiency of immunoglobulin m (igm) ([facility]) D80.4 Presence of cardiac pacemaker Z95.0 Chronic systolic (congestive) heart failure ([facility]) I50.22 Coronary artery disease involving [place] coronary artery of [place] heart without angina pectoris I25.10 COPD, group A, by GOLD 2017 classification ([facility]) J44.9 ILD (interstitial lung disease) ([facility]) J84.9 Protein-calorie malnutrition ([facility]) E46 Current Outpatient Medications Medication Sig Dispense Refill LANCET DEVICE MISC test bid 100 3 OMEGA 3 1000 MG PO CAPS 2 per day 90 Cap 0 Calcium Carbonate-Vitamin D 600-400 MG-UNIT Oral Tablet Take by mouth 1 Tablet in the morning AND 1Tablet before bedtime. (Patient taking differently: Take 1 Tablet by mouth in the morning. Take 1 tablet daily.) 60 Tablet 2 Dexcom G6 Sensor Use to check blood sugars. Change every 10 days 3 Each 3 Dexcom G6 Transmitter Use to check blood sugars. Change every 3 months 1 Each 3 Albuterol Sulfate HFA 108 (90 Base) MCG/ACT Inhalation Aerosol Solution Inhale by mouth 2 Puffs every 6 hours as needed for Cough, Shortness of Breath or Wheezing. 18 g 3 L37-Hdrfun 1 MG Oral Tablet Chewable (Methylcobalamin) Take by mouth daily . Eliquis 5 MG Oral Tablet (Apixaban) TAKE 1 TABLET BY MOUTH TWICE A DAY 60 Tablet 11 Omeprazole 20 MG Oral Capsule Delayed Release (PriLOSEC) Take 1 Capsule by mouth in the morning. 90Capsule 3 Calcium + Vitamin D3 600-10 MG-MCG Oral Tablet (Calcium Carb-Cholecalciferol) TAKE 1 TABLET BY MOUTH EVERY DAY IN THE MORNING AND BEFORE BEDTIME 180 Tablet 2 NovoLOG FlexPen 100 UNIT/ML Subcutaneous Solution Pen-injector (insulin aspart) Inject 15 Units under the skin in the morning and 15 Units at noon and 15 Units in the evening. Inject with meals. Pluscorrection factor of 1:25 over 150. Max Daily Dose of 75 Units.. 75 mL 3 Prochlorperazine Maleate 10 MG Oral Tablet (Compazine) Take 1 Tablet by mouth every 6 hours as needed for Nausea. 30 Tablet 2 Dexcom G7 Sensor Use to check blood sugar 1 Each 3 Dexcom G7 Table Machine Operator Device Use to check blood sugar 1 Each 1 Victoza 18 MG/3ML Subcutaneous Solution Pen-injector (Liraglutide) Inject 1.2 mg under the skin in the morning. 18 mL 3 BD Pen Needle Short U/F 31G X 8 MM (Insulin Pen Needle) USE DIRECTED WITH insulins 500 Each 3 Morphine Sulfate 15 MG Oral Tablet (Msir) Take 1 Tablet by mouth every 4 hours as needed for Pain, Severe. 120 Tablet 0 Klor-Con M20 20 MEQ Oral Tablet Extended Release (Potassium Chloride ER) TAKE 1 TABLET BY MOUTH IN THE MORNING AND BEFORE BEDTIME 180 Tablet 1 Digoxin 125 MCG Oral Tablet (Lanoxin) Take 1 Tablet by mouth every other day. 90 Tablet 3 Ondansetron HCl 8 MG Oral Tablet (Zofran) Take 1 Tablet by mouth every 8 hours as needed for Nausea. 30 Tablet 2 Gabapentin 300 MG Oral Capsule (Neurontin) Take 1 Capsule by mouth in the morning and 1 Capsule in the evening. 180 Capsule 3 Linzess 145 MCG Oral Capsule (linaCLOtide) Take 1 Capsule by mouth daily before breakfast. 90 Capsule 3 Mirtazapine 30 MG Oral Tablet (Remeron) Take 1 Tablet by mouth at bedtime. 30 Tablet 5 Lenalidomide 10 MG Oral Capsule (Revlimid) TAKE 1 CAPSULE BY MOUTH 1 TIME A DAY FOR 21 DAYS ON, THEN 7 DAYS OFF. 21 Capsule 0 Metoprolol Succinate ER 25 MG Oral Tablet Extended Release 24 Hour (toPROL XL) Take 1 Tablet by mouth in the morning. dexAMETHasone 4 MG Oral Tablet (Decadron) Take 20mg once a week 120 Tablet 1 Metoprolol Succinate ER 50 MG Oral Tablet Extended Release 24 Hour (toPROL XL) Take 1 Tablet by mouth in the morning and 1 Tablet before bedtime. 180 Tablet 3 Senna 8.6 MG Oral Tablet Take 2 Tablets by mouth at bedtime as needed for Constipation. 60 Tablet 1 Atorvastatin Calcium 40 MG Oral Tablet (Lipitor) TAKE 1 TABLET BY MOUTH EVERY DAY 90 Tablet 1 Furosemide 20 MG Oral Tablet (Lasix) Take 1 Tablet by mouth once a day on Wednesday, Wednesday, and Wednesday only. No current facility-administered medications for this visit. Review of patient's allergies indicates: Allergen Reactions Tizanidine OBJECTIVE: BP 110/58 | Pulse 87 | Temp 35.6 C (96.1 F) (Tympanic) | Resp 16 | Wt 68 kg (150 lb) | SpO2 98%| BMI 20.49 kg/m | BSA 1.86 m Estimated body mass index is 20.49 kg/m as calculated from the following: Height as of 01/11/23: 1.822 m (5' 11.75"). Weight as of this encounter: 68 kg (150 lb). BP Readings from Last 3 Encounters: 08/04/23 110/58 08/02/23 116/65 07/28/23 110/64 Wt Readings from Last 3 Encounters: 08/04/23 68 kg (150 lb) 08/02/23 69.2 kg (152 lb 9.6 oz) 07/28/23 66.2 kg (146 lb) ROS: Negative except for above PHYSICAL EXAM: General: alert, healthy, and no distress Head: Normocephalic, No masses, lesions, tenderness or abnormalities Heart: regular rate & rhythm, no murmur, and no gallops Lungs: chest symmetric with normal AP diameter, no chest deformities noted, no chest wall tenderness, lungs clear to auscultation Extremities: less than 2 second capillary refill, no joint deformities, effusion, or inflammation ASSESSMENT/Plan Dizziness (Primary) - DISCH MED RECON CUR MED LIS Orthostatic hypotension - DISCH MED RECON CUR MED LIS Hospital discharge follow-up - DISCH MED RECON CUR MED LIS Need for vaccination - RSV VAC., BIVALENT, PERFUSION F, PF,0.5 ML (ABRYSVO) Type 2 diabetes mellitus with hemoglobin A1c goal of less than 8.0% (HCC) Paroxysmal atrial fibrillation (HCC) Multiple myeloma not having achieved remission (HCC) Other orders - Abrysvo 120 MCG/0.5ML Intramuscular Solution Reconstituted (RSV Pre-Fusion F A&B Vac Rcmb); Inject 0.5 mL into a large muscle once for 1 dose. Doing well with changes made in the hospital. The above was discussed and understanding was expressed. Landen Macario DO documented in this encounter Nursing Notes * Glo Ferris LPN - 08/04/2023 1:40 PM EDT Dev Hernandez presents for hospital recheck. Medications & HM reviewed. Would like to discuss lasix. pharmacy questioned why he only has 3 month prescription. Says on the days he takes his lasix BP drops after taking his metoprolol. Alternates the digoxin to take it the opposite days of the lasix. Is doing better now that meds are getting more controlled. Is also doing well with chemo treatment. documented in this encounter Plan of Treatment Upcoming Encounters Date Type Department Care Team (Late st Contact Info) Description 08/16/2023 6:10 PM EDT Pharmacy Pharmacy, [facility] [address] [place] [address] [id number] Pharmacist1, [facility] [address] [place] [id number] 09/20/2023 9:30 AM EST Office Visit Hematology/Oncology [facility] [address] [place] [id number] Chito Garcia MD [address] [place] [id number] 09/27/2023 9:15 AM EST Pharmacy Pharmacy Hematology Oncology [facility] [place] [address] [facility] [address] [facility], [facility] Hem/Onc [address] [place] [address] 09/27/2023 6:15 PM EST Scheduled Telephone Pharmacy Hematology Oncology [facility] [place] [address] [place] [address] [facility] Hem/Onc [facility] [address] [place] [address] 10/01/2023 1:30 PM EST Cardiac Studies Cardiology, [facility] [address] [place] [address] Fredy Figueroa [facility] [address] [place] [address] 01/17/2024 3:00 PM EDT Office Visit Family Practice [facility] [address] [place] [address] Landen Macario, DO [address] [place] [address] Health Maintenance Due Date Last Done Comments Alpha-1 Antitrypsin 1963 Hepatitis B (3 of 3 - Risk 3-dose series) 04/17/1994 11/18/1993, 10/18/1993 Zoster Vaccines [...] 01/05/2024 01/04/2023, 10/08/2022, 05/15/2022 B-12 03/02/2024 03/02/2023, 07/02/2022, 07/08/2021, Additional history exists GFR 08/02/2024 08/02/2023, 06/18, 05/25/2023, Additional history exists O2 ASSESSMENT COMPLETED IN PAST YEAR FOR COPD 08/04/2024 08/04/2023 DTaP,Tdap,and Td Vaccines (2 - Td or [...] this encounter Medical Devices Implanted Type Area Soldering Technician Device Identifier Shelf Expiration Date Model / Serial / Lot Lens Intraoc 24.0 - [id number] - [id number] Implanted:Qty: 1 on 08/16/2018 by Adan Colon MD at OR [facility] Right: Eye [employer] 11/17/2022 [id number] / [id number] / [id number] Lens Intraoc 24.0 - [id number] - [id number] Implanted:Qty: 1 on 08/23/2018 by Adan Colon MD at OR [facility] Left: Eye [employer] 06/17/2023 [id number] / [id number] / [id number] Screw [employer] [id number] - [id number] Implanted:Qty: 1 on 12/07/2019 by Amilcar Saavedra MD at OR [facility] Left: Foot [employer]CH [id number] / / documented as of this encounter Visit Diagnoses Diagnosis Dizziness- Primary Dizziness and giddiness Orthostatic hypotension Hospital discharge follow-up Other follow-up examination Need for vaccination Need for prophylactic vaccination and inoculation against unspecified single disease Type 2 diabetes mellitus with hemoglobin A1c goal of less than 8.0% (HCC) Paroxysmal atrial fibrillation (HCC) Atrial fibrillation Multiple myeloma not having achieved remission (HCC) Multiple myeloma, without mention of having achieved remission documented in this encounter Advance Directives Latest Code Status [...] and were consensually agreed upon. Care Teams Machine Bookkeeper Relationship Specialty Start Date End Date Landen Macario DO [address] [place] [address] PCP - General Family Medicine 02/09/22 documented as of this encounter
--- OUTSIDE RECORDS SUMMARY | 2023-08-26 18:10 | External Medical Summary | Summary of Care ---
Author Name Unknown Organization [facility] Address [address] [place] [address] Phone [phone] Care Team Providers Care Filling Separator Name Role Phone Landen Macario Primary Care Provider [phone] Reason for Visit * Reason Comments Medication Management Encounter Details Date Type Department Care Team Description 08/04/2023 Pharmacy Pharmacy Hematology Oncology [facility] [address], [place] [id number] [facility] Hem/Onc [address] [place] [address] Multiple myeloma not having achieved remission (HCC)* Allergies Active Allergy Reactions Severity Noted Date Comments Tizanidine 06/27/2021 documented as of this encounter (statuses as of 08/04/2023) Medications Medication Sig Dispensed Refills Start Date End Date Status LANCET DEVICE MISCIndications:DM type 2, not at goal (HCC) test bid 100 3 07/27/2007 Active OMEGA 3 1000 MG PO CAPSIndications:Chr onic ischemic heart disease,Dyslipidemi a, goal LDL below 70 2 per day 90 Cap 0 08/22/2013 Active Calcium Carbonate-Vitamin D 600-400 MG-UNIT Oral TabletIndications:M ultiple myeloma not having achieved remission (HCC) Take by mouth 1 Tablet in the morning AND 1 Tablet before bedtime. 60 Tablet 2 12/15/2021 Active Additional Information Patient taking differently:1 Tablet OralDaily(AM), Take 1 tablet daily, Reason: per Dr. Garcia, Reported on 11/12/2022 Dexcom G6 SensorIndications:T ype 2 diabetes mellitus with peripheral vascular disease (HCC) Use to check blood sugars. Change every 10 days 3 Each 3 02/02/2022 Active Dexcom G6 TransmitterIndicati ons:Type 2 diabetes mellitus with peripheral vascular disease (HCC) Use to check blood sugars. Change every 3 months 1 Each 3 02/02/2022 Active Albuterol Sulfate HFA 108 (90 Base) MCG/ACT Inhalation Aerosol Solution Inhale by mouth 2 Puffs every 6 hours as needed for Cough, Shortness of Breath or Wheezing. 18 g 3 04/03/2022 Active Y49-Nbyukx 1 MG Oral Tablet Chewable (Methylcobalamin) Take by mouth daily . 0 Active Eliquis 5 MG Oral Tablet (Apixaban) TAKE 1 TABLET BY MOUTH TWICE A DAY 60 Tablet 11 11/17/2022 Active Omeprazole 20 MG Oral Capsule Delayed Release (PriLOSEC)Indicatio ns:Gastroesophageal reflux disease without esophagitis Take 1 Capsule by mouth in the morning. 90 Capsule 3 12/04/2022 Active Calcium + Vitamin D3 600-10 MG-MCG Oral Tablet (Calcium Carb-Cholecalcifero l)Indications:Multi ple myeloma not having achieved remission (HCC) TAKE 1 TABLET BY MOUTH EVERY DAY IN THE MORNING AND BEFORE BEDTIME 180 Tablet 2 12/14/2022 Active NovoLOG FlexPen 100 UNIT/ML Subcutaneous Solution Pen-injector (insulin aspart)Indications: Type 2 diabetes mellitus with hemoglobin A1c goal of less than 8.0% (HCC) Inject 15 Units under the skin in the morning and 15 Units at noon and 15 Units in the evening. Inject with meals. Plus correction factor of 1:25 over 150. Max Daily Dose of 75 Units.. 75 mL 3 12/30/2022 Active Prochlorperazine Maleate 10 MG Oral Tablet (Compazine)Indicati ons:Multiple myeloma not having achieved remission (HCC) Take 1 Tablet by mouth every 6 hours as needed for Nausea. 30 Tablet 2 01/27/2023 Active Dexcom G7 Sensor Use to check blood sugar 1 Each 3 03/04/2023 Active Dexcom G7 Manager System Device Use to check blood sugar 1 Each 1 03/04/2023 Active Victoza 18 MG/3ML Subcutaneous Solution Pen-injector (Liraglutide)Indica tions:Type 2 diabetes mellitus with peripheral vascular disease (HCC) Inject 1.2 mg under the skin in the morning. 18 mL 3 03/30/2023 Active BD Pen Needle Short U/F 31G X 8 MM (Insulin Pen Needle)Indications: Type 2 diabetes mellitus with hemoglobin A1c goal of less than 8.0% (HCC) USE DIRECTED WITH insulins 500 Each 3 04/18/2023 Active Morphine Sulfate 15 MG Oral Tablet (Msir)Indications:C ancer related pain Take 1 Tablet by mouth [...] Active Ondansetron HCl 8 MG Oral Tablet (Zofran)Indications :Multiple myeloma not having achieved remission (HCC) Take 1 Tablet by mouth every 8 hours as needed for Nausea. 30 Tablet 2 06/14/2023 Active Gabapentin 300 MG Oral Capsule (Neurontin)Indicati ons:Sensory neuropathy Take 1 Capsule by mouth in the morning and 1 Capsule in the evening. 180 Capsule 3 06/14/2023 Active Linzess 145 MCG Oral Capsule (linaCLOtide)Indica tions:Therapeutic opioid induced constipation Take 1 Capsule by mouth daily before breakfast. 90 Capsule 3 06/14/2023 Active Mirtazapine 30 MG Oral Tablet (Remeron) Take 1 Tablet by mouth at bedtime. 30 Tablet 5 06/14/2023 Active Lenalidomide 10 MG Oral Capsule (Revlimid)Indicatio ns:Multiple myeloma not having achieved remission (HCC) TAKE 1 CAPSULE BY MOUTH 1 TIME A DAY FOR 21 DAYS ON, THEN 7 DAYS OFF. 21 Capsule 0 07/07/2023 Active Metoprolol Succinate ER 25 MG Oral Tablet Extended Release 24 Hour (toPROL XL) Take 1 Tablet by mouth in the morning. 0 06/30/2023 Active dexAMETHasone 4 MG Oral Tablet (Decadron)Indicatio ns:Multiple myeloma not having achieved remission (HCC) Take [...] Active Atorvastatin Calcium 40 MG Oral Tablet (Lipitor)Indication s:Dyslipidemia, goal LDL below 70 TAKE 1 TABLET BY MOUTH EVERY DAY 90 Tablet 1 07/27/2023 Active Furosemide 20 MG Oral Tablet (Lasix) Take 1 Tablet by mouth once a day on Wednesday, Wednesday, and Wednesday only. 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 Metastatic cancer to bone 10/22/2021 Acute systolic congestive heart failure 10/08/2021 Multiple myeloma not having achieved rem ission 08/28/2021 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 ADVANCE DIRECTIVE INFORMATION 08/04/2005 CHR ISCHEMIC HRT DIS NOS 07/28/2001 Hip joint replacement status 10/18/1996 Aortocoronary bypass status 10/18/1993 documented as of this encounter (statuses as of 08/04/2023) Resolved Problems Problem Noted Date Resolved Date [...] 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,rt congregational 07/05/2002 0 05/26/2018 Rosacea 07/28/2001 05/26/2018 LOC PRIM [id number] 07/28/2001 05/26/20 18 documented as of this encounter (statuses as of 08/04/2023) Immunizations Name Administration Dates Next Due COVID-19 mRNA, LNP-s, No Pre serve, 2-Dose Series (Moderna) 08/27/2021,01/04/2021,12/02/2020 COVID-19, mRNA, LNP-s, PF, B ooster, 100mcg/0.5mg (Moderna) 05/07/2022 Covid-19, Mrna, Lnp-s, Pf, B ivalent, 30 Mcg, IM, 12 yrs and above ([facility]) 09/04/2022 H1N1 2009 Influenza, IM 09/22/2009 PPD [...] on file documented as of this encounter Progress Notes * Poly Tam, [facility] - 08/04/2023 9:22 AM EDT MEDICATION THERAPY MANAGEMENT LENALIDOMIDE (REVLIMID) TREATMENT PROGRESS NOTE Dev Hernandez [phone] Patient Phone Numbers Communication: Chart review Treatment: Medication: Lenalidomide (Revlimid) Indication/Staging/Diagnosis Code: Multiple Myeloma Dose: 10mg daily D1-21 every 28 days Administration: +/- food Start Date: 09/17/22 Primary Lot Technician/Oncologist: Dr. Garcia Additional Therapy: Daratumumab Dexamethasone Supportive Care Meds: Ondansetron Prochlorperazine Prophylactic Meds: Acyclovir Apixaban ASA Current cycle TBD Next cycle TBD Dose adjustment / medication hold: 05/25/23-present: DaraRd held due to declining performance status Interval History: Pt previously on lenalidomide 09/15/21-05/06/22 as Vrd Per OV 08/02/23, continue to HOLD treatment Changes to medication list since last visit? No Assessment and Plan: MTM to follow up after next OV to assess treatment restart Assessment of compliance: N/A Assessment of adverse effects attributed to drug therapy: N/A Dose adjustment needed based on lab or adverse drug reaction? No, continue to HOLD Follow up: 09/20 OV; 09/27 MT Poly Tam, PharmD, BCOP Clinical Pharmacist, [facility] Oral Chemotherapy [facility] 08/04/2023, 9:29 AM Time Spent on Encounter: 6 - 10 minutes documented in this encounter Plan of Treatment Upcoming Encounters Date Type Specialty Care Team Description 08/04/2023 Office Visit Family Medicine Landen Macario, DO [address] [facility] [place] [address] 08/16/2023 Pharmacy Pharmacy Pharmacist, [facility] [address] [facility] [place] [address] 08/19/2023 Scheduled Telephone Pharmacy [place] [facility] Hem/Onc Tech [address] [facility] [place] [phone] 09/20/2023 Office Visit Hematology Oncology Chito Garcia MD [address] [place] [address] 09/27/2023 Pharmacy Pharmacy [facility] Hem[facility]Onc [address] [place] [address] 10/01/2023 Cardiac Studies Cardiology [facility] [address] [facility] [place] [address] 01/17/2024 Office Visit Family Medicine Landen Macario, DO [address] [place] [address] Health Maintenance Due Date Last Done Comments [...] 03/02/2023, 07/0 02/2022, 07/08/2021, Additional history exists GFR 08/02/2024 08/02/2023, 06/18, 05/25/2023, Additional history exists O2 ASSESSMENT COMPLETED IN PAST YEAR FOR COPD 08/02/2024 08/02/2023 DTaP,Tdap,and Td Vaccines (2 - Td or [...] this encounter Medical Devices Implanted Type Area Pick Up Truck Driver Device Identifier Shelf Expiration Date Model / Serial / Lot Lens Intraoc 24.0 - [id number] - [id number] Implanted:Qty: 1 on 08/16/2018 by Adan Colon MD at OR [facility] Right: Eye [employer]OMB 11/17/2022 [id number] / [id number] / [id number] Lens Intraoc 24.0 - [id number] - [id number] Implanted:Qty: 1 on 08/23/2018 by Adan Colon MD at OR [facility] Left: Eye BAUSCH & LOMB 06/17/2023 [id number] / [id number] / [id number] Screw [employer] [id number] - [id number] Implanted:Qty: 1 on 12/07/2019 by Amilcar Saavedra MD at OR [facility] Left: Foot [employer]CH [id number] / / documented as of this encounter Visit Diagnoses Diagnosis Multiple myeloma not having achieved remission (HCC)- Primary Multiple myeloma, without mention of having achieved [...] and were consensually agreed upon. Care Teams Filling Separator Relationship Specialty Start Date End Date Landen Macario, DO [address] [place] [address] PCP - General Family Medicine 02/09/22 documented as of this encounter
--- OUTSIDE RECORDS SUMMARY | 2023-08-26 18:10 | External Medical Summary | Summary of Care ---
Author Name Unknown Organization [facility] Address [address] [place] [address] Phone [phone] Care Team Providers Care Sales Financial Analyst Name Role Phone RoselynLanden cameron Primary Care Provider [phone] Reason for Visit * Reason Comments Appointment Encounter Details Date Type Department Care Team (Late st Contact Info) Description 08/16/2023 6:10 PM EDT Pharmacy Pharmacy, [facility] [address] [place] [address] Pharmacist1, [facility] [address] [place] [address] Type 2 diabetes mellitus with hemoglobin A1c goal of less than 8.0% ([facility])* Allergies Active Allergy Reactions Criticality Noted Date Comments Tizanidine 06/27/2021 documented as of this encounter (statuses as of 08/16/2023) Medications Medication Sig Dispensed Refills Start Date [...] or Wheezing. 18 g 3 04/03/2022 Active O54-Rxiqan 1 MG Oral Tablet Chewable (Methylcobalamin) Take [...] 1 Each 3 03/04/2023 Active Dexcom G7 Arc Welding Machine Operator Device Use to check blood [...] as of this encounter (statuses as of 08/16/2023) Active Problems Problem Noted Date Diagnosed Date Protein-calorie malnutrition 08/02/2023 COPD, group A, by GOLD 2017 classification 06/14 ILD (interstitial lung disease) 06/14/2023 Chronic systolic (congestive) heart failure 05/2022 Coronary artery disease invo lving [place] coronary artery of [place] heart without angina pectoris 06/25/2022 Presence of [...] Gastroesophageal reflux disease without esophagi tis 03/15/2019 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 11/25/2018 Paroxysmal atrial [...] as of this encounter (statuses as of 08/16/2023) Resolved Problems Problem Noted Date Diagnosed Date [...] 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,rt jain 07/05/2002 05/26/2018 Rosacea 07/28/2001 05/26/2018 LOC PRIM [id number] 07/28/200106/2018 documented as of this encounter (statuses as of 08/16/2023) Immunizations Name Administration Dates Next Due COVID-19 mRNA, LNP-s, No Pre serve, 2-Dose Series (Moderna) 08/27/2021,01/04/2021,12/02/2020 COVID-19, mRNA, LNP-s, PF, B ooster, 100mcg/0.5mg (Moderna) 05/07/2022 Covid-19, Mrna, Lnp-s, Pf, B ivalent, 30 Mcg, IM, 12 yrs and above ([email or web address]) 09/04/2022 H1N1 2009 Influenza, IM 09/22/2009 PPD [...] as of this encounter Progress Notes * Georgette Robledo, slag expander - 08/16/2023 9:51 AM EDT Patient Phone Numbers Spoke with patient to schedule [facility] appointment for diabetes management. Appointment scheduled as noted below. 09/17/2023 Thank you, Georgette Robledo Manager Parking [facility] 08/16/2023,9:51 AM documented in this encounter Plan of Treatment Upcoming Encounters Date Type Department Care Team (Late st Contact Info) Description 09/17/2023 2:30 PM EST Office Visit Pharmacy, [facility] [address] [facility] [place] [address] Pharmacist1, [facility] [address] [facility] [place] [address] 09/20/2023 9:30 AM EST Office Visit Hematology/Oncology [facility] [address] [facility] [place] [address] Chito Garcia MD [address] [facility] [place] [address] 09/27/2023 9:15 AM EST Pharmacy Pharmacy Hematology Oncology [facility] [address] [place] [address] [facility] Hem/Onc [address] [place] [address] 09/27/2023 6:15 PM EST Scheduled Telephone Pharmacy Hematology Oncology [facility] [address] [place] [address] [facility] Hem/Onc Tech [address] [place] [address] 10/01/2023 1:30 PM EST Cardiac Studies Cardiology, [facility] [address] [place] [address] [facility] [address] [facility] [place] [address] 01/17/2024 3:00 PM EDT Office Visit Family Practice [facility] [employer] [address] [facility] [place] [address] Landen Macario DO [address] [facility] [place] [address] Health Maintenance Due Date Last Done Comments [...] this encounter Medical Devices Implanted Type Area Billing Machine Operator Device Identifier Shelf Expiration Date Model / Serial / Lot Lens Intraoc 24.0 - [id number] - [id number] Implanted:Qty: 1 on 08/16/2018 by Adan Colon MD at OR [facility] Right: Eye [employer]OM[employer] 11/17/2022 [id number] / [id number] / [id number] Lens Intraoc 24.0 - [id number] - [id number] Implanted:Qty: 1 on 08/23/2018 by Adan Colon MD at OR [facility] Left: Eye BAUSCH & LOMB 06/17/2023 [id number] / [id number] / [id number] Screw [employer] [id number] - [id number] Implanted:Qty: 1 on 12/07/2019 by Amilcar Saavedra MD at OR [facility] Left: Foot EXACTECH [id number] / / documented as of this encounter Visit Diagnoses Diagnosis Type 2 diabetes mellitus with hemoglobin A1c goal of less than 8.0% (HCC)- Primary documented in this encounter Advance Directives Latest [...] and were consensually agreed upon. Care Teams Sales Financial Analyst Relationship Specialty Start Date End Date Landen Macario DO [address] [place] [address] PCP - General Family Medicine 02/09/22 documented as of this encounter
--- OUTSIDE RECORDS SUMMARY | 2023-08-26 18:10 | External Medical Summary | Summary of Care ---
Author Name Unknown Organization [facility] Address [address] [facility] [address] Phone [phone] Care Team Providers Care Youth Counselor Name Role Phone Landen Macario Primary Care Provider [phone] Reason for Visit * Reason Onset Date Comments Test Results Lab 08/04/2023 Encounter Details Date Type Department Care Team Description 08/04/2023 Telephone Hematology/Oncology [facility] [place] [address] [facility] [place] [address] Chito Garcia MD [address] [facility] [place] [address] Test Results Lab Allergies Active Allergy Reactions Severity Noted Date [...] or Wheezing. 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 Metastatic cancer to bone 10/22/2021 Acute systolic congestive heart failure 10/08/2021 Multiple myeloma not having achieved rem ission 08/28/2021 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 09/08/2019 Gastroesophageal reflux disease without esophagitis 03/15/2019 correction (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 of insulin 11/25 Paroxysmal atrial [...] 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,rt mosque 07/05/2002 0 05/26/2018 Rosacea 07/28/2001 05/26/2018 LOC PRIM [id number] 07/28/2001 05/26/20 18 documented as of this encounter (statuses as of 08/04/2023) Immunizations Name Administration Dates Next Due COVID-19 mRNA, LNP-s, No Pre serve, 2-Dose Series (Moderna) 08/27/2021,01/04/2021,12/02/2020 COVID-19, mRNA, LNP-s, PF, B ooster, 100mcg/0.5mg (Moderna) 05/07/2022 Covid-19, Mrna, Lnp-s, Pf, B ivalent, 30 Mcg, IM, 12 yrs and above ([facility]) 09/04/2022 H1N1 2009 Influenza, IM 09/22/2009 PPD [...] on file documented as of this encounter Miscellaneous Notes * Telephone Encounter - Sobeida Mack LPN - 08/04/2023 8:17 AM EDT Notified patient per myG message, patient is active. Lab orders already entered. ----- Message from Chito Garcia MD sent at 08/03/2023 3:31 PM EDT ----- Patient is bite increase in the kappa free light chain 85. For now will continue to monitor the patient clinically repeat his blood tests in 6 weeks documented in this encounter Plan of Treatment Upcoming Encounters Date Type Specialty Care Team Description 08/04/2023 Office Visit Family Medicine Landen Macario, DO [address] [place] [address] 08/16/2023 Pharmacy Pharmacy Pharmacist, [facility] [address] [place] [address] 08/19/2023 Scheduled Telephone Pharmacy [place] [facility] Hem/Onc Tech [address] [facility] [place] [address] 09/20/2023 Office Visit Hematology Oncology Chito Garcia MD [address] [place] [address] 10/01/2023 Cardiac Studies Cardiology [facility], [facility] [address] [facility] [place] [address] 01/17/2024 Office Visit Family Medicine Landen Macario, DO [address] [place] [address] Health Maintenance Due Date Last Done Comments [...] this encounter Medical Devices Implanted Type Area Brand Attendant Device Identifier Shelf Expiration Date Model / Serial / Lot Lens Intraoc 24.0 - [id number] - [id number] Implanted:Qty: 1 on 08/16/2018 by Adan Colon MD at OR [facility] Right: Eye BAUSCH [employer] LOMB 11/17/2022 [id number] / [id number] / [id number] Lens Intraoc 24.0 - [id number] - [id number] Implanted:Qty: 1 on 08/23/2018 by Adan Colon MD at OR [facility] Left: Eye BAUSCH & LOMB 06/17/2023 [id number] / [id number] / [id number] Screw [employer] [id number] - [id number] Implanted:Qty: 1 on 12/07/2019 by Amilcar Saavedra MD at OR [facility] Left: Foot EXACTECH [id number] / / documented as of this encounter [...] and were consensually agreed upon. Care Teams Youth Counselor Relationship Specialty Start Date End Date Landen Macario, DO [address] [facility] [place] [address] PCP - General Family Medicine 02/09/22 documented as of this encounter
--- OUTSIDE RECORDS SUMMARY | 2023-08-26 18:10 | External Medical Summary | Summary of Care ---
Author Name Unknown Organization [facility] Address [address] [place] [address] Phone [phone] Care Team Providers Care General Ledger Bookkeeper Name Role Phone AhsanLanden nava Primary Care Provider [phone] Reason for Visit * Reason Comments Nurse Documentation Delay tx 6 weeks Encounter Details Date Type Department Care Team Description 08/02/2023 Hem/Onc Treatment Hematology/Oncology Treatment, [address] [address] [place], Chair 3 Hem Onc [address] [address] Arrived Allergies Active Allergy Reactions Severity Noted Date [...] or Wheezing. 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 Metastatic cancer to bone 10/22/2021 Acute systolic congestive heart failure 10/08/2021 Multiple myeloma not having achieved rem ission 08/28/2021 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 09/08/2019 Gastroesophageal reflux disease without esophagitis 03/15/2019 learning and development intern (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 of insulin 11/25 Paroxysmal atrial [...] 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,rt pentecostalism 07/05/2002 0 05/26/2018 Rosacea 07/28/2001 05/26/2018 LOC PRIM [id number] 07/28/2001 05/26/20 18 documented as of this encounter (statuses as of 08/02/2023) Immunizations Name Administration Dates Next Due COVID-19 mRNA, LNP-s, No Pre serve, 2-Dose Series (Moderna) 08/27/2021,01/04/2021,12/02/2020 COVID-19, mRNA, LNP-s, PF, B ooster, 100mcg/0.5mg (Moderna) 05/07/2022 Covid-19, Mrna, Lnp-s, Pf, B ivalent, 30 Mcg, IM, 12 yrs and above (Aptible) 09/04/2022 H1N1 2009 Influenza, IM 09/22/2009 PPD [...] on file documented as of this encounter Nursing Notes * Sallie Rodriges RN - 08/02/2023 4:[address] Garcia, delay treatment 6 weeks including Xgeva and DarzalexFaspro. documented in this encounter Plan of Treatment Upcoming Encounters Date Type Specialty Care Team Description 08/04/2023 Office Visit Family Medicine Landen Macario, DO [address] [facility] [address] 08/16/2023 Pharmacy Pharmacy Pharmacist1, [facility] [address] [place] [address] 08/19/2023 Scheduled Telephone Pharmacy Iv[facility] Hem/Onc Tech [address] [place] [address] 09/20/2023 Office Visit Hematology Oncology Chito Garcia MD [address] [place] [address] 10/01/2023 Cardiac Studies Cardiology [facility], [address] [address] 01/17/2024 Office Visit Family Medicine Landen Macario, DO [address] [place] [address] Health Maintenance Due Date Last Done Comments [...] this encounter Medical Devices Implanted Type Area General Agent Device Identifier Shelf Expiration Date Model / Serial / Lot Lens Intraoc 24.0 - [id number] - [id number] Implanted:Qty: 1 on 08/16/2018 by Adan Colon MD at OR [facility] Right: Eye [employer]OM[employer] 11/17/2022 [id number] / [id number] / [id number] Lens Intraoc 24.0 - [id number] - [id number] Implanted:Qty: 1 on 08/23/2018 by Adan Colon MD at OR [facility] Left: Eye [employer] LOMB 06/17/2023 [id number] / [id number] / [id number] Screw [employer] [id number] - [id number] Implanted:Qty: 1 on 12/07/2019 by Amilcar Saavedra MD at OR [facility] Left: Foot EXACTECH [id number] / / documented as of this encounter [...] and were consensually agreed upon. Care Teams General Ledger Bookkeeper Relationship Specialty Start Date End Date Landen Macario, DO [address] [place] [address] PCP - General Family Medicine 02/09/22 documented as of this encounter
--- OUTSIDE RECORDS SUMMARY | 2023-08-26 18:11 | External Medical Summary | Summary of Care ---
Author Name Unknown Organization [facility] Address [address] [facility] [address] Phone [phone] Care Team Providers Care Rope Coiling Machine Operator Name Role Phone RoselynLanden cameron Con MCCABE Primary Care Provider [phone] Reason for Visit * Reason Comments Outpatient Testing Encounter Details Date Type Department Care Team Description 08/02/2023 Laboratory [facility] [place] [address] [place] [id number] [facility] Scenery [address] [place] [address] Multiple myeloma not having achieved remission (HCC) Allergies Active Allergy Reactions Severity Noted Date [...] or Wheezing. 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 Metastatic cancer to bone 10/22/2021 Acute systolic congestive heart failure 10/08/2021 Multiple myeloma not having achieved rem ission 08/28/2021 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 09/08/2019 Gastroesophageal reflux disease without esophagitis 03/15/2019 intermediate (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 of insulin 11/25 Paroxysmal atrial [...] 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,rt catholic 07/05/2002 0 05/26/2018 Rosacea 07/28/2001 05/26/2018 LOC PRIM [id number] 07/28/2001 05/26/20 18 documented as of this encounter (statuses as of 08/02/2023) Immunizations Name Administration Dates Next Due COVID-19 mRNA, LNP-s, No Pre serve, 2-Dose Series (Moderna) 08/27/2021,01/04/2021,12/02/2020 COVID-19, mRNA, LNP-s, PF, B ooster, 100mcg/0.5mg (Moderna) 05/07/2022 Covid-19, Mrna, Lnp-s, Pf, B ivalent, 30 Mcg, IM, 12 yrs and above (Kraken) 09/04/2022 H1N1 2009 Influenza, IM 09/22/2009 PPD [...] Encounters Date Type Specialty Care Team Description 08/02/2023 Office Visit Hematology Oncology Chito Garcia MD [address] [place] [address] Arrived 08/02/2023 Hem/Onc Treatment Hematology Oncology [place], Chair 3 Hem Onc Scenery [address] [place] [address] Arrived 08/04/2023 Office Visit Family Medicine Landen Macario, DO [address] [place] [address] 08/16/2023 Pharmacy Pharmacy Pharmacist, [facility] [address] [place] [address] 08/19/2023 Scheduled Telephone Pharmacy [facility] Hem/Onc Tech [address] [facility] [address] 10/01/2023 Cardiac Studies Cardiology [place] [address] [facility] [address] 01/17/2024 Office Visit Family [facility] Landen Macario, DO [address] [place] [place] [address] Pending Results Name Type Priority Associated Diagnoses Date /Time PHOSPHORUS Lab STAT Multiple myeloma not having achieved remission (HCC) 08/02/2023 10:41 AM EDT CBC WITH WBC DIFFERENTIAL Lab STAT Multiple myeloma not having achieved remission (HCC) 08/02/2023 10:41 AM EDT COMPREHENSIVE METABOLIC PANEL Lab STAT Multiple myeloma not having achieved remission (HCC) 08/02/2023 10:41 AM EDT SERUM PROTEIN ELECTROPHORESIS REFLEX PROFILE Lab STAT Multiple myeloma not having achieved remission (HCC) 08/02/2023 10:41 AM EDT SERUM FREE LIGHT CHAINS Lab STAT Multiple myeloma not having achieved remission (HCC) 08/02/2023 10:41 AM EDT IMMUNOGLOBULIN QUANTITATIVE Lab STAT Multiple myeloma not having achieved remission (HCC) 08/02/2023 10:41 AM EDT SERUM IMMUNOFIXATION Lab Routine Multiple myeloma not having achieved remission (HCC) 08/02/2023 10:41 AM EDT CBC Lab STAT Multiple myeloma not having achieved remission (HCC) 08/02/2023 10:41 AM EDT DIFFERENTIAL, AUTOMATED Lab STAT Multiple myeloma not having achieved remission (HCC) 08/02/2023 10:41 AM EDT Health Maintenance Due Date Last Done Comments [...] 2023 09/04/2022, 05/07/2022, 08/27/2021, Additional history exists Influenza Vaccine (FLU shot) (#1) 2023 07/07/2022, 07/21/2021, 07/21/2021, Additional history exists DIABETES-EYE EXAM 09/09/2023 09/09/2022, , 10/25/2019, Additional history exists HbA1c 12/15/2023 06/14/2023, 02/15, 01/04/2023, Additional history exists DIG LEVEL FOR MEDICATION MONITORING YEARLY 01/05/2024 01/04/2023, 10/08/2022, 05/15/2022 B-12 03/02/2024 03/02/2023, 07/0 02/2022, 07/08/2021, Additional history exists GFR 07/05/2024 07/05/2023, 08/0 05/2023, 04/27/2023, Additional history exists O2 ASSESSMENT COMPLETED IN PAST YEAR FOR COPD 07/22/2024 07/22/2023 DTaP,Tdap,and Td Vaccines (2 - Td or Tdap) 04/02/2032 04/02/2022 COLONOSCOPY-EVERY 5 YRS AGES 18-100 Discontinued 11/16/2016, 11/16/2016, 07/16/2006 GARDASIL-HPV IMMUNIZATION SERIES Aged Out No longer eligible based on patient's age to complete this topic MENINGOCOCCAL (MENACTRA/MENVEO) Aged Out No longer eligible based on patient's age to complete this topic documented as of this encounter Medical Devices Implanted Type Area Automation Control Technician Device Identifier Shelf Expiration Date Model / Serial / Lot Lens Intraoc 24.0 - [id number] - [id number] Implanted:Qty: 1 on 08/16/2018 by Adan Colon MD at OR [facility] Right: Eye [employer]OM[employer] 11/17/2022 [id number] / [id number] / [id number] Lens Intraoc 24.0 - [id number] - [id number] Implanted:Qty: 1 on 08/23/2018 by Adan Colon MD at OR [facility] Left: Eye BAUSCH [employer] LOMB 06/17/2023 [id number] / [id number] / [id number] Screw [employer] 3.3itj90yo - [id number] Implanted:Qty: 1 on 12/07/2019 by Amilcar Saavedra MD at OR [facility] Left: Foot EXACTECH [id number] / / documented as of this encounter Visit Diagnoses Diagnosis Multiple myeloma not having achieved remission (HCC) [...] and were consensually agreed upon. Care Teams Rope Coiling Machine Operator Relationship Specialty Start Date End Date Landen Macario, DO [address] [place] [address] PCP - General Family Medicine 02/09/22 documented as of this encounter
--- OUTSIDE RECORDS SUMMARY | 2023-08-26 18:11 | External Medical Summary ---
Author Name Unknown Address Unknown Organization [id number]:[facility] [address] Laboratory Report Ordering Provider Test Date Status ANIBAL FIERRO 08/02/2023 10:41:31 Final Observation Date Value Abnormality Reference (Units ) Status WBC, Total 08/02/2023 10:41:31 8.08 4.00-10.8 0 (K/uL) Final RBC 08/02/2023 10:41:31 3.14 4.50-5.25 (M/uL) Final Hemoglobin 08/02/2023 10:41:31 9.5 Below low normal 14 .0-16.8 (g/dL) Final HCT 08/02/2023 10:41:31 29.8 Below low normal 40. 0-48.4 (%) Final MCV 08/02/2023 10:41:31 94.9 82.0-99.5 (fL) Final MCH 08/02/2023 10:41:31 30.3 27.0-34.0 (pg) Final MCHC 08/02/2023 10:41:31 31.9 32.0-36.0 (g/dL) Final RDW 08/02/2023 10:41:31 15.6 11.5-15.5 (%) Final Platelets 08/02/2023 10:41:31 161 140-400 (K /uL) Final MPV 08/02/2023 10:41:31 10.6 6.6-11.1 ( fL) Final Performing Location [facility] [address]
--- OUTSIDE RECORDS SUMMARY | 2023-08-26 18:11 | External Medical Summary ---
Author Name Unknown Address Unknown Organization [id number][facility] [place] [address] [place] [address] Laboratory Report Ordering Provider Test Date Status ANIBAL FIERRO 08/02/2023 10:41:31 Final Observation Date Value Abnormality Reference (Units) Status Immunofixation for Serum or Plasma 08/02/2023 10:41:31 No monoclonal gammopathy detected. Final Performing Location [facility] [place] [address] [place] [address]
--- OUTSIDE RECORDS SUMMARY | 2023-08-26 18:11 | External Medical Summary | Summary of Care ---
Author Name Unknown Organization [facility] Address [address] [facility] [address] Phone [phone] Care Team Providers Care Field Observer Name Role Phone AhsanLadnen nava Primary Care Provider [phone] Encounter Details Date Type Department Care Team Description 07/28/2023 Orders Only Hematology/Oncology [place] C[facility]denas [address] [facility] [place] [address] Chito Garcia MD [address] [facility] [place] [address] Allergies Active Allergy Reactions Severity Noted Date Comments Tizanidine 06/27/2021 documented as of this encounter (statuses as of 07/28/2023) Medications Medication Sig Dispensed Refills Start Date [...] or Wheezing. 18 g 3 04/03/2022 Active C92-Tdzlrm 1 MG Oral Tablet Chewable (Methylcobalamin) Take [...] for Nausea. 30 Tablet 2 01/27/2023 Active Insulin Glargine Solostar 100 UNIT/ML Subcutaneous Solution Pen-injector (Basaglar KwikPen)Indications :Type 2 diabetes mellitus with hemoglobin A1c goal of less than 8.0% (HCC) Inject 40 Units under the skin every night at bedtime. 45 mL 1 02/15/2023 Active Dexcom G7 Sensor Use to check blood sugar 1 Each 3 03/04/2023 Active Dexcom G7 Durability Engineer Device Use to check blood sugar 1 [...] A1c goal of less than 8.0% ([facility]) USE DIRECTED WITH insulins 500 Each 3 [...] at bedtime. 30 Tablet 5 06/14/2023 Active Furosemide 40 MG Oral Tablet (Lasix) Take 1 Tablet by mouth in the morning. On Wednesday-Wednesday- Wednesday only. 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 Metastatic cancer to bone 10/22/2021 Acute systolic congestive heart failure 10/08/2021 Multiple myeloma not having achieved rem ission 08/28/2021 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 09/08/2019 Gastroesophageal reflux disease without esophagitis 03/15/2019 watermaster (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 of insulin 11/25 Paroxysmal atrial [...] as of this encounter (statuses as of 07/28/2023) Resolved Problems Problem Noted Date Resolved Date [...] 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,rt rastafarian 07/05/2002 0 05/26/2018 Rosacea 07/28/2001 05/26/2018 LOC PRIM [id number] 07/28/2001 05/26/20 18 documented as of this encounter (statuses as of 07/28/2023) Immunizations Name Administration Dates Next Due COVID-19 [...] Date Type Specialty Care Team Description 08/02/2023 Laboratory Laboratory [place] [facility] Scenery [address] [place] [address] 08/02/2023 Office Visit Hematology Oncology Radha, Dale Erwin, MD [address] [place] [address] 08/02/2023 Hem/Onc Treatment Hematology Oncology [place], Chair 3 Hem Onc Scenery [address] [place] [address] 08/16/2023 Pharmacy Pharmacy Pharmacist, [facility] [address] [facility] [address] [facility] [place] [address] 08/19/2023 [facility] [address] [place] [address] 10/01/2023 Cardiac Studies Cardiology [facility] [address] [place] [address] 01/17/2024 Office Visit Family Medicine Landen Macario DO [address] [facility] [address] [place] [facility] [place] [address] Health Maintenance Due Date Last Done Comments [...] this encounter Medical Devices Implanted Type Area Judo Teacher Device Identifier Shelf Expiration Date Model / Serial / Lot Lens Intraoc 24.0 - [id number] - [id number] Implanted:Qty: 1 on 08/16/2018 by Adan Colon MD at OR [facility] Right: Eye [employer] 11/17/2022 [id number] / [id number] / [id number] Lens Intraoc 24.0 - [id number] - [id number] Implanted:Qty: 1 on 08/23/2018 by Adan Colon MD at OR [facility] Left: Eye [employer]OMB 06/17/2023 [id number] / [id number] / [id number] Screw [employer] 3.1nuo20jh - [id number] Implanted:Qty: 1 on 12/07/2019 by Amilcar Saavedra MD at OR [facility] Left: Foot EXACTECH [id number] / / documented as of this encounter [...] and were consensually agreed upon. Care Teams Field Observer Relationship Specialty Start Date End Date Landen Macario, DO [address] [facility] [place] [address] PCP - General Family Medicine 02/09/22 documented as of this encounter
--- OUTSIDE RECORDS SUMMARY | 2023-08-26 18:11 | External Medical Summary ---
Author Name Unknown Address Unknown Organization K09:[facility] [address] [place] [address] Laboratory Report Ordering Provider Test Date Status ANIBAL FIERRO 08/02/2023 10:41:31 Final Observation Date Value Abnormality Reference (Units ) Status BUN 08/02/2023 10:41:31 15 6-20 (mg/dL) Final Creatinine 08/02/2023 10:41:31 1.3 Above high normal 0.6-1.2 (mg/dL) Final Glomerular filtration rate/1.73 sq M.predicted [Volume Rate/Area] in Serum, Plasma or Blood by Creatinine-based formula (CKD-EPI) 08/02/2023 10:41:31 59 Below low normal >=60 (mL/min) Final eGFR is calculated based on the CKD-EPI 2020 equation SODIUM 08/02/2023 10:41:31 139 135-146 (m mol/L) Final Potassium 08/02/2023 10:41:31 4.6 3.5-5.1 (m mol/L) Final Cl 08/02/2023 10:41:31 105 98-107 (mm ol/L) Final CO2 08/02/2023 10:41:31 20 Below low normal 22- 32 (mmol/L) Final Anion gap 08/02/2023 10:41:31 14 7-15 (mmol /L) Final Glucose 08/02/2023 10:41:31 143 Above high normal 70 -120 (mg/dL) Final Albumin 08/02/2023 10:41:31 3.8 3.8-5.0 (g /dL) Final AST (Aspartate aminotransferase) 08/02/2023 10:41:31 24 10-50 (U/L) Fin al Alk Phos 08/02/2023 10:41:31 78 35-130 (U/ L) Final Bilirubin, Total 08/02/2023 10:41:31 0.4 <=1 .2 (mg/dL) Final Calcium 08/02/2023 10:41:31 9.1 8.4-10.2 ( mg/dL) Final Protein 08/02/2023 10:41:31 6.2 6.0-8.3 (g /dL) Final ALT (Alanine aminotransferase) 08/02/2023 10:41:31 31 10-50 (U/L) Marcelo lobato Performing Location [facility] [place] [address]
--- OUTSIDE RECORDS SUMMARY | 2023-08-26 18:11 | External Medical Summary | Summary of Care ---
Author Name Unknown Organization [facility] Address [address] [place] [facility] [place] [address] Phone [phone] Care Team Providers Care Sales Support Technician Name Role Phone Landen Macario Primary Care Provider [phone] Reason for Visit * Reason Onset Date Comments Follow Up 1m Medication Administration 08/02/2023 Flu an d/or Pneumo Inj Encounter Details Date Type Department Care Team Description 08/02/2023 Office Visit Hematology/Oncology [facility] [place] [address] [facility] [place] [address] Chito Garcia MD [address] [facility] [place] [facility] [place] [address] Multiple myeloma not having achieved remission (HCC)*; Need for prophylactic vaccination and inoculation against influenza Allergies Active Allergy Reactions Severity Noted Date [...] or Wheezing. 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 0 05/26/2018 Rosacea 07/28/2001 05/26/2018 LOC PRIM [id number] 07/28/2001 05/26/20 18 documented as of this encounter (statuses as of 08/02/2023) Immunizations Name Administration Dates Next Due COVID-19 mRNA, LNP-s, No Pre serve, 2-Dose Series (Moderna) 08/27/2021,01/04/2021,12/02/2020 COVID-19, mRNA, LNP-s, PF, B ooster, 100mcg/0.5mg (Moderna) 05/07/2022 Covid-19, Mrna, Lnp-s, Pf, B ivalent, 30 Mcg, IM, 12 yrs and above (Pancetera) 09/04/2022 H1N1 2009 Influenza, IM 09/22/2009 PPD [...] 25 Q uit: 10/18/1979 Smokeless Tobacco: Never Tobacco Cessation:Counseling Given: Not Answered Comments:occ. cigar Alcohol Use Standard Drinks/Week Comments Not Currently 0 (1 standard drink = 0.6 oz pur e alcohol) Sex Assigned at Date Recorded Not on file Job Start Date Occupation Industry Not on file Not on file Not on file documented as of this encounter Last Filed Vital Signs Vital Sign Reading Time Taken Comments Blood Pressure 116/65 08/02/2023 10:59 AM EDT Pulse 86 08/02/2023 10:59 AM EDT Temperature 36.4 C (97.6 F) 08/02/2023 10:59 AM E DT Respiratory Rate 16 08/02/2023 10:59 AM EDT Oxygen Saturation 94% 08/02/2023 10:59 AM EDT Inhaled Oxygen Concentration - - Weight 69.2 kg (152 lb 9.6 oz) 08/02/2023 10:59 AM EDT Height - - Body Mass Index 20.84 01/11/2023 3:38 PM EDT documented in this encounter Progress Notes * Brittany Robledo CMA - 08/02/2023 11:43 AM EDT PRE - ADMINISTRATION DOCUMENTATION Are you experiencing any cold symptoms or fever? No Have you had Guillain-Naubinway Syndrome (an illness that causes paralysis) within the last 6 weeks? No Have you had the flu shot in the past? YES Have you ever had a reaction to the flu shot? No Brittany Robledo CMA, 08/02/2023 11:43 AM Immunization Administration Documentation Time Out Procedure Performed: Yes Patient Identified (Ask Name/Date of ): Yes Does the patient have a fever greater than 101 degrees today? No Patient allergic to latex? No VFC Stock: Yes, Does this patient qualify for immunization through the VFC program because he/she (check only one): Yes-is enrolled in Medicaid Immunization(s) verified: Yes, Immunization Name: Flu, VIS Sheet(s) given: Yes Verified Side and Site: Yes Verified Shot(s) with Parent(s)/Patient: Yes * Chito Garcia MD - 08/02/2023 11:17 AM EDT Outpatient Consult Note Data Source: Patient, Epic record. Data Source: Patient, Epic record. 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 Current Treatment: Resumed Treatment on 09/17/22 with Darzalex plus Revlimid and Decadron. Received last dose on 05/25/2023 and currently on hold because of the deterioration of the performance status Previous Treatment: VRd - 09/15/21-05/06/22 Revlimid plus Velcade and Decadron - treatment on hold because of other comorbid condition. He was also evaluated for the stem cell transplant but not eligible because of comorbid conditions. Received last cycle of Revlimid between 03/16/2022-03/29/2022. Received last dose of Velcade on 04/21/2022 Oncologic History : 77-year-old male with past medical history significant for atrial fibrillation, coronary artery disease status post CABG at the age of 48, status post hip replacement surgery, diabetes presented withcomplaint of back pain and the left flank pain. He was seen initially by chiropractor who told him that he has cracked ribs on the left side. Patient was seen by Dr. Macario and had CT scan of the abdomen pelvis done which revealed Degenerate changes of the visualized spine, total left hip replacement, bilateral lower chronic rib fractures, likely pathological,multiple lytic lesions throughout the visualized axial skeleton, cortical breakthrough involving a few lytic lesions, some with associated soft tissue component, such as the bilateral superior iliac wings, left pubic symphysis, left proximal femoral head, L4 and L5 vertebral bodies. Pathological fractures of right T11 and left L4 transverse processes, No renal calculi or hydronephrosis. Mild cortical bulging of the interpolar region of the right kidney, indeterminate. Findings may represent a mass lesion versus extravasated lobulation. Review of peripheral blood smear shows: Smear Interpretation Macrocytic anemia, mild. Negative for evidence of dysplasia or malignancy. Negative for evidence of specific infection. Renal ultrasound was done on 07/09/2021 which shows bilateral renal cysts with no suspicious renal lesion. Patient lost about 7 lb last 10 months. His also complaining of diarrhea alternating with constipation for last few weeks. He has appointment with Gastroenterology on 07/17/2021. He denies any headache, dizziness, blurred vision, chest pain, shortness breath palpitation, abdominal pain, nausea, vomiting, bleeding, bruising, fever, night sweats. He denies any hematuria, hematochezia. He quit smoking in 1979. He used to smoke 1 pack per day for about 10 years. Denies drinking. Family history significant for mother was diagnosed of lymphoma. One brother was diagnosed of lung cancer and he was smoking. There was another brother with bleeding problem and most likely because of the cancer Patient had bone and bone marrow biopsy on 08/18/2021 which is consistent with multiple myeloma. A. Iliac bone, laterality not specified, core needle biopsy: Category: Malignant Final Interpretation: Plasma cell neoplasm. Biopsy: The biopsy specimen contains sheets of plasmacytoid cells with nuclear atypia and features of plasma cells, within a background of skeletal muscle and bone. Immunostains are performed (block A1) and demonstrate that the cells are positive for MUM1 and CD138, while negative for SOX-10, MART-1, S100, and CKAE1/AE3. The findings support a plasma cell neoplasm/myeloma. There is no evidence ofmetastatic melanoma. Material is sufficient for additional studies if clinically indicated A. Bone Marrow with Biopsy: Multiple myeloma. See microscopic description. Comment: Routine cytogenetics and FISH studies have been ordered Bone marrow aspirate: Bone marrow aspirate particles are hypercellular for age. Increased plasma cell population up to 50-60% with clustering and sheeting is present. Megakaryocytes are present in adequate numbers. Granulopoiesis is adequate and windows system admin. 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 M:E ratio is approximately 3:1. Iron status: No particles are identified. No ring sideroblasts are seen. Core biopsy sample or clot sections: The biopsy is adequate. The area that has marrow elements is prominently hypercellular for age. Theoverall cellularity of approximately 80%. There is a prominent increase in plasma cells. A CD 138 stain demonstrates plasma cells in sheets and clusters. In the non-cluster area, there are approximately 70% plasma cells. All 3 cell lines are present. Comment: This patients chart is reviewed and he has a small IgA kappa paraprotein. Also imaging studies comment on multiple osseous lesions. The amount of paraprotein is not in keeping with the number of plasma cells observed in this study. Thus a hyposecretory or non secretory multiple myeloma are considerations. Cytogenetics Oncology Chromosome Analysis: Karyotype: 46,XY[20] FISH Analysis Plasma Cell Myeloma Panel Results: Abnormal Interpretation: Del(1p): Not Detected Dup(1q): DETECTED Gains(5, 9, 15): DETECTED Del(13q)/-13: DETECTED Del(17p)(TP53): Not Detected IGH(Rearrangement): Not Detected This patient has multiple abnormalities which include duplication of 1q, gains of 5, 9 and 15 and deletion of 13q- which is in keeping with this patients plasma cell neoplasm He had a repeat bone marrow biopsy done on 02/27/2022 which was negative for residual plasma cell neoplasm. Peripheral blood: - Macrocytic anemia. Bone Marrow, aspirate and core biopsy: - Normocellular marrow for age (35% cellularity) with maturing trilineage hematopoiesis. - No morphologic evidence of plasma cell neoplasm. Flow Interpretation BONE MARROW: - No immunophenotypic evidence of monotypic plasma cells. Follow-up PET scan was done on 02/16/2022 revealed excellent response with Interval sclerosis and resolution of metabolic activity within widespread osteolytic lesions. Patient was evaluated by the transplant team and because of his other comorbid condition and poor lung function, he is not a candidate for high-dose chemotherapy and stem cell transplant. He was admitted to the hospital on 04/22/2022 and discharged on 05/04/2022. He was admitted with generalized weakness shortness of breath, episode of fall, chills. Patient had a CT scan done which was negative for pulmonary embolism. He had low blood pressure a question of infection and was treatedwith antibiotics. He was discharged on oxygen supplement and currently at [facility] rehabilitation Interval History: He was discharged from the hospital on 07/29/2023. He was admitted with the hypertension, heart failure, elevated troponin. Clinically he is feeling better and stronger. Denies any nausea, vomiting, headache, chest pain, palpitation abdominal pain, bleeding, bruising, fever, night sweats. LABS/IMAGING: Results for orders placed or performed in visit on 08/02/23 CBC Result Value Ref Range WBC 8.08 4.00 - 10.80 K/uL RBC 3.14 4.50 - 5.25 M/uL HGB 9.5 (L) 14.0 - 16.8 g/dL HCT 29.8 (L) 40.0 - 48.4 % MCV 94.9 82.0 - 99.5 fL MCH 30.3 27.0 - 34.0 pg MCHC 31.9 32.0 - 36.0 g/dL RDW 15.6 11.5 - 15.5 % PLT 161 140 - 400 K/uL MPV 10.6 6.6 - 11.1 fL DIFFERENTIAL, AUTOMATED Result Value Ref Range WBC 8.08 4.00 - 10.80 K/uL Neutrophils % 78.7 (H) 40.0 - 75.0 % Lymphocytes % 9.3 (L) 18.0 - 42.0 % Monocytes % 10.5 1.0 - 11.0 % Eosinophils % 1.4 0.0 - 6.0 % Basophils % 0.1 0.0 - 2.0 % Absolute Neutrophils 6.36 1.80 - 7.70 K/uL Absolute Lymphocytes 0.75 (L) 1.00 - 4.80 K/ul Absolute Monocytes 0.85 0.00 - 1.10 K/uL Absolute Eosinophils 0.11 0.00 - 0.70 K/uL Absolute Basophils 0.01 0.00 - 0.20 K/uL *Note: Due to a large number of results and/or encounters for the requested time period, some results have not been displayed. A complete set of results can be found in Results Review. All his blood tests are in stable range with normal IgA level and acceptable light chains level. REVIEW OF SYSTEMS: General: No Fever, chills, night sweats, or weight loss. HEENT: No change in visual acuity, blurred or double vision. No epistaxis, facial pain, nasal discharge or change in hearing. Denies dysphagia, no muscosal ulceration, or sores noted. Cardiovascular: No chest pain, RAYGOZA, or palpitations Respiratory: improving shortness of breath, cough, No hemoptysis, or pleuritic chest pain Gastrointestinal: No abdominal pain, nausea, vomiting, diarrhea, rectal pain or bleeding Genitourinary: Denies Hematuria or dysuria Musculoskeletal: Improving generalized weakness and fatigue Psychiatric: No vegetative signs of depression Endocrine: No symptoms of hypothyroidism or hyperglycemia Hematologic: No bleeding or lymph nodes noted As mentioned above, all of the systems were reviewed in full and are unremarkable. Past Medical History: Diagnosis Date Atrial fibrillation (HCC) post op COPD (chronic obstructive pulmonary disease) ([facility]) Coronary atherosclerosis 10/18/1993 Other and unspecified malignant neoplasm of skin of other and unspecified parts of face Primary localized osteoarthrosis, lower leg 10/18/1996 hip Pulmonary arterial hypertension (HCC) Rosacea Current Outpatient Medications Medication Sig Dispense Refill [...] of Breath or Wheezing. 18 g 3 [id number] 1 MG Oral Tablet Chewable (Methylcobalamin) Take [...] blood sugar 1 Each 3 Dexcom G7 Electromechanical Equipment Assembler Device Use to check blood sugar 1 [...] No current facility-administered medications for this visit. Social History Tobacco Use Smoking status: Former Packs/day: 1.50 Years: 25.00 Pack years: 37.50 Types: Cigarettes Quit date: 10/18/1979 Years since quittin.8 Smokeless tobacco: Never Tobacco comments: occ. cigar Vaping Use Vaping Use: Never used Substance Use Topics Alcohol use: Not Currently Drug use: Yes Types: Marijuana Comment: Liquid, medical marijuana; also has gummies Review of patient's allergies indicates: Allergen Reactions Tizanidine PHYSICAL EXAMINATION: General Appearance: Weak appearing patient in no acute distress BP 116/65 (BP Site: Left Arm, BP Position: Sitting, BP Cuff Size: Regular) | Pulse 86 | Temp 36.4 C (97.6 F) (Tympanic) | Resp 16 | Wt 69.2 kg (152 lb 9.6 oz) | SpO2 94% | BMI 20.84 kg/m | BSA 1.87 m Vitals reviewed. HEENT: No oral or pharyngeal masses, ulceration or thrush noted, no sinus tenderness. Neck is supple with no thyromegaly or JVD noted. Lymph Nodes: No lymphadenopathy noted in the occipital, pre and post auricular, cervical, supra andinfraclavicular, axillary, epitrochlear, inguinal, and popliteal region. Lungs/Thorax: Clear to auscultation, no accessory muscles of respiration being used. Heart: Regular rate and rhythm, normal S1, S2 Abdomen: Soft, nontender, bowel sounds present, no appreciable hepatosplenomegaly, no palpable masses Extremeties: Good pulses bilaterally, no peripheral edema. Skin: Normal skin tone with no rash, petechiae, ecchymosis noted. Musculoskeletal: No pain on palpation over bony prominence, no edema, no evidence of gout, no jointor bony deformity ASSESSMENT: 76-year-old male with past medical history significant for atrial fibrillation, coronary artery disease status post CABG at the age of 48, status post hip replacement surgery, diabetes presented withcomplaint of back pain and the left flank pain. He had a CT scan of the abdomen and pelvis done which revealed multifocal osseous lytic lesions throughout the visualized axial skeleton and multiple pathologic fractures, there is mild cortical bulging of the right kidney and this finding may represent a mass worse as extravasted lobulation and ultrasound of the kidneys requested. Further workup including bone marrow biopsy and bone biopsy all consistent with multiple myeloma. Bone marrow biopsy cellularity is 70% of which 80% are plasma cells. Further workup confirmed the diagnosis of IgA kappa multiple myeloma with lytic bone lesions. Patient has stage II multiple myeloma based on the revised international staging system for multiple myeloma. He does not have any high risk chromosomal or FSH findings. He was started on combination of Revlimid plus Velcade and Decadron with good tolerance and normalization of kappa and IgA level. He had a repeat bone marrow biopsy done on 02/27/2022 and it was negative for myeloma. He was evaluated by Dr. Schwarz in Transplant team and because of comorbid condition and lung problem, he is not candidate for high-dose chemotherapy and stem cell transplant. Treatment was on hold between 03/29/2022 and 09/17/2022 because of the deterioration in the performance status and other comorbid condition. Currently he is receiving monthly Darzalex with Decadron and Revlimid. Resumed Treatment on 09/17/22 with Darzalex plus Revlimid and Decadron. Received last dose on 05/25/2023 and currently on hold because of the deterioration of the performance status. He was recently discharged from the hospital. Now clinically he is feeling better and stronger. All his blood test including myeloma panel was in acceptable range. Discussed with the patient and about the diagnosis and reviewed all the available blood test result with them. He continues to be in recovery phase and I will continue to hold his treatment for myeloma. Currently his main issues heart problem and lung problem. PLAN: Continue hold myeloma treatment. He will return to clinic for follow-up in 6 weeks with CBC, CMP and myeloma panel. The patient voiced understanding of all of the above. All questions and concerns were addressed in an apparently satisfactory manner. Chito Garcia MD (This note was completed using the dictation program Fluency Direct. As such, there may be misspellings, word substitutions, or other variations that should not change the essence of the clinical content of this encounter note. If there is need for further clarification, please direct questions to me.) documented in this encounter Nursing Notes * Brittany Robledo CMA - 08/02/2023 10:59 AM EDT Patient identifed by name and birthdate Do you have any concerns about pain management for today's visit? No Living Will or Advance Directive for Health Care as noted on the problem list. [facility] is a way you can talk to your provider on line through e-mail. Would you like to sign up? I can activate it for you? ALREADY ACTIVE Filed Vitals: 08/02/23 1059 BP: 116/65 Pulse: 86 Resp: 16 Temp: 36.4 C (97.6 F) TempSrc: Tympanic SpO2: 94% Weight: 69.2 kg (152 lb 9.6 oz) Patient was instructed to not get up on the exam table/exam chair until directed and assisted by their provider; patient is to remain seated in the chair/ wheelchair/ exam table/ exam chair for fall prevention and safety reasons. Patient is aware to have assistance to step down off exam table/exam chair with personnel. Patient voiced full comprehension of instructions. documented in this encounter Plan of Treatment Upcoming Encounters Date Type Specialty Care Team Description 08/04/2023 Office Visit Family Medicine Landen Macario, DO [address] [place] [address] 08/16/2023 Pharmacy Pharmacy Pharmacist1, [facility] [address] [place] [address] 08/19/2023 Scheduled Telephone Pharmacy Ivana [facility] Hem/Onc Tech [address] [place] [address] 09/20/2023 Office Visit Hematology Oncology Chito Garcia MD [address] [facility] [place] [address] 10/01/2023 [facility]iac Studies [facility] [place] [address] [address] 01/17/2024 Office Visit Family Medicine Landen Macario, DO [address] [place] [address] Scheduled Orders Name Type Priority Associated Diagnoses Orde r Schedule CBC WITH WBC DIFFERENTIAL Lab Routine Multiple myeloma not having achieved remission (HCC) Expected: 09/13/2023, Expires: 02/08/2024 COMPREHENSIVE METABOLIC PANEL Lab Routine Multiple myeloma not having achieved remission (HCC) Expected: 09/13/2023, Expires: 02/08/2024 IMMUNOGLOBULIN QUANTITATIVE Lab Routine Multiple myeloma not having achieved remission (HCC) Expected: 09/13/2023, Expires: 02/08/2024 SERUM FREE LIGHT CHAINS Lab Routine Multiple myeloma not having achieved remission (HCC) Expected: 09/13/2023, Expires: 02/08/2024 SERUM PROTEIN ELECTROPHORESIS REFLEX PROFILE Lab Routine Multiple myeloma not having achieved remission (HCC) Expected: 09/13/2023, Expires: 02/08/2024 [id number], SERUM Lab Routine Multiple myeloma not having achieved remission (HCC) Expected: 09/13/2023, Expires: 02/08/2024 Health Maintenance Due Date Last Done Comments [...] IN PAST YEAR FOR COPD 07/22/2024 07/22/2023 GFR 08/02/2024 08/02/2023, 06/18, 05/25/2023, Additional history [...] this encounter Medical Devices Implanted Type Area Human Resources Director Device Identifier Shelf Expiration Date Model / Serial / Lot Lens Intraoc 24.0 - [id number] - [id number] Implanted:Qty: 1 on 08/16/2018 by Adan Colon MD at [facility] Right: Eye [employer] 11/17/2022 [id number] / [id number] / [id number] Lens Intraoc 24.0 - [id number] - [id number] Implanted:Qty: 1 on 08/23/2018 by Adan Colon MD at [facility] Left: Eye [employer] 06/17/2023 [id number] / [id number] / [id number] Screw [employer] 3.6fld00by - [id number] Implanted:Qty: 1 on 12/07/2019 by Amilcar Saavedra MD at [facility] Left: Foot EX[employer]ECH [id number] / / documented as of this encounter Visit Diagnoses Diagnosis Multiple myeloma not having achieved remission (HCC)- Primary Multiple myeloma, without mention of having achieved remission Need for prophylactic vaccination and inoculation against influenza documented in this encounter Advance Directives Latest [...] were consensually agreed upon. Care Teams Sales Support Technician Relationship Specialty Start Date End Date Landen Macario, DO [address] [place] [address] PCP - General Family Medicine 02/09/22 documented as of this encounter"
--- OUTSIDE RECORDS SUMMARY | 2023-08-26 18:11 | External Medical Summary | Summary of Care ---
Author Name Unknown Organization [facility] Address [address] [facility] [place] [address] Phone [phone] Care Team Providers Care Perioperative Educator Name Role Phone Landen Macario DO Primary Care Provider [phone] Reason for Visit * Reason Comments Hospital Follow-Up [facility] 07/06-07/20/23. V will weak- exhaustion just taking showering. Sleeps a lot. Eating alright. SOB with any exertion. Dizziness when standing for a few seconds. Denies chest pain, palpitations and edema. Encounter Details Date Type Department Care Team Description 07/28/2023 Office Visit Cardiology, [facility] [address] [place] [id number] Cyril Johns PA-C [address] [place] [address] Hypotension due to hypovolemia*; Coronary artery disease involving [place] coronary artery of [place] heart without angina pectoris; Paroxysmal atrial fibrillation (HCC); Presence of cardiac pacemaker; Chronic ischemic heart disease Allergies Active Allergy Reactions Severity Noted Date Comments Tizanidine 06/27/2021 documented as of this encounter (statuses as of 07/30/2023) Medications Medication Sig Dispensed Refills Start Date [...] or Wheezing. 18 g 3 2 Active W93-Duzjsi 1 MG Oral Tablet Chewable (Methylcobalamin ) [...] 1 Each 3 3 Active Dexcom G7 Farmworker Field Crop Device Use to check blood sugar 1 [...] Solostar 100 UNIT/ML Subcutaneous Solution Pen-injector (Basaglar KwikMichel)Indicati ons:Type 2 diabetes mellitus with hemoglobin A1c goal of less than 8.0% ([facility]) Inject 40 Units under the skin every night at bedtime. 45 mL 1 3 07/30/20 23 Discontinued(Med ication/Dose Changed) Furosemide 40 MG Oral Tablet (Lasix) Take 1 Tablet by mouth in the morning. On Wednesday- y-Wednesday only. 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 Metastatic cancer to bone 10/22/2021 Acute systolic congestive heart failure 10/08/2021 Multiple myeloma not having achieved rem ission 08/28/2021 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 Malignant neoplasm of skin of parts of face 01/1705/26/2018 Overview: 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,rt tenriism 07/05/2002 0 05/26/2018 Rosacea 07/28/2001 05/26/2018 LOC PRIM [id number] 07/28/2001 05/26/20 18 documented as of this encounter (statuses as of 07/30/2023) Immunizations Name Administration Dates Next Due COVID-19 mRNA, LNP-s, No Pre serve, 2-Dose Series (Moderna) 08/27/2021,01/04/2021,12/02/2020 COVID-19, mRNA, LNP-s, PF, B ooster, 100mcg/0.5mg (Moderna) 05/07/2022 Covid-19, Mrna, Lnp-s, Pf, B ivalent, 30 Mcg, IM, 12 yrs and above ([employer] Home) 09/04/2022 H1N1 2009 Influenza, IM 09/22/2009 PPD [...] Sign Reading Time Taken Comments Blood Pressure 110/64 07/28/2023 9:05 AM EDT Pulse 76 07/28/2023 9:05 AM EDT Temperature - - Respiratory Rate 16 07/28/2023 9:05 AM EDT Oxygen Saturation - - Inhaled Oxygen Concentration - - Weight 66.2 kg (146 lb) 07/28/2023 9:05 AM EDT Height - - Body Mass Index 19.94 01/11/2023 3:38 PM EDT documented in this encounter Progress Notes * Cyril Johns PA-C - 07/28/2023 9:11 AM EDT History of Present Illness: Dev Hernandez is complex 78 year old male here today for cardiologyfollow-up evaluation. Senior Instructional Designer is Dr. Lane. Patient last seen in this office by Mattie Franco on February 04, 2023 Hospitalized at [facility] June 25, 2023 to June 30, 2023 then again July 06, 2023 to July 20, 2023 Admitted with acute on chronic multifactorial shortness of breath Centrilobular emphysema, interstitial lung disease, hospital-acquired pneumonia Ischemic cardiomyopathy status post remote bypass surgery, chronic class 2-3 angina pectoris Systolic and diastolic heart failure with GDMT therapies limited by chronic hypotension and orthostatic hypotension, receiving 20 mg IV furosemide at [facility] Paroxysmal atrial fibrillation with patient not felt to be a good candidate for antiarrhythmic therapy - Renal function prevents use of dofetilide - Decreased EF prevents use of Multaq and sotalol due to CHF concerns - Amiodarone previously prescribed from September 2021 to March [address] Martinez recommended discontinuation due to concerns for amiodarone induced lung toxicity; although the note vijay was prescribed amiodarone for 20 years, this was not the case. Additionally, review of the pacemaker interrogations when he was prescribed amiodarone shows that the amiodarone failed to control the patient's paroxysmal atrial fibrillation Multiple myeloma treated with Darzalex plus Revlimid and Decadron, anemia requiring transfusion of pRBC's Atherosclerotic peripheral vascular disease with an open wound on the left lower extremity, followed by the [facility] and Dr. Mariano Campo. 07/28/2023 Very very weak Unable to hold his head up Exhausted Dizzy all the time Can't do anything notes sometimes he doesn't have the strength to eat, spending most of the day in bed Neck hurts all the time, aided by a heating pad No chest pain No palpitations. Cough every now and then, urbano color sputum. No orthopnea or PND, adjustable bed. No edema. No syncope. No fevers. + Mild chills. No rigors. No epistaxis. No hemoptysis. No melena or hematochezia. No hematuria No rash. Past Medical and Surgical History: Atherosclerotic coronary disease, status post coronary bypass grafting 1993, receiving a BISHOP to LAD, gastroepiploic artery to right PDA, and left radial arterial graft to OM branch vessel. Class 3 angina pectoris. 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 Hypertension Hyperlipidemia Diabetes mellitus with neuropathy Multiple myeloma, IgA kappa with lytic bone lesions- follows with Hematology Centrilobular emphysema. Chronic interstitial lung disease GERD Family History: Mother with lymphoma. Father with war related complications. Two brothers diedwith lung cancer. Social History: Reformed smoker having quit on October 18, 1979 after smoking up to 2 packs/day x 25years. Social alcohol. No illegal drug use. . Born and raised in [place]. Retired from [employer] Patient Active Problem List Diagnosis Code Aortocoronary bypass status Z95.1 Hip joint replacement status Z96.649 CHR ISCHEMIC HRT DIS NOS I25.9 ADVANCE DIRECTIVE INFORMATION DYSLIPIDEMIA, GOAL LDL BELOW 70 E78.5 Type 2 diabetes mellitus with hemoglobin A1c goal of less than 8.0% (HCC) E11.9 Type 2 diabetes mellitus with peripheral vascular disease (HCC) E11.51 History of melanoma in situ Z86.006 retirement (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 of insulin (HCC) Z79.4 Paroxysmal atrial fibrillation (HCC) I48.0 Gastroesophageal reflux disease without esophagitis K21.9 Diabetic peripheral neuropathy associated with type 2 diabetes mellitus (HCC) E11.42 Multiple myeloma not having achieved remission ([facility]) C90.00 Acute systolic congestive heart failure (HCC) I50.21 Metastatic cancer to bone (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) I50.22 Coronary artery disease involving [place] coronary artery of [place] heart without angina pectoris I25.10 COPD, group A, by GOLD 2017 classification ([facility]) J44.9 ILD (interstitial lung disease) ([facility]) J84.9 Past Medical History: Diagnosis Date Atrial fibrillation ([facility]) post op COPD (chronic obstructive pulmonary disease) ([facility]) Coronary atherosclerosis 10/18/1993 Other and unspecified malignant neoplasm of skin of other and unspecified parts of face Primary localized osteoarthrosis, lower leg 10/18/1996 hip Pulmonary arterial hypertension ([facility]) Rosacea Past Surgical History: Procedure Laterality Date BONE MARROW BIOPSY Left 02/27/2022 BONE MARROW BIOPSY (IES) performed by Cyril Aguiar DO at OR [facility] CABG, ARTERIAL, FOUR OR MORE 1993 CABG, Arterial, Four+ COLONOSCOPY, DIAGNOSTIC (RECTUM) 11/16/2016 adenomatous polyps, repeat 5 yrs/COLONOSCOPY FLEXIBLE PROXIMAL DIAGNOSTIC performed by Jorje Lee MD at ENDOSCOPY [facility] DIABETIC EYE EXAM 12/23/09 no diabetic retinopathy INCISION OF 1ST METATARSAL Left 12/07/2019 OSTEOTOMY 1ST METATARSAL performed by Amilcar Saavedra MD at OR [facility] INFORMATION 07/21 ORIF left foot MTPJ INFORMATION 10/22 revision of MTP joint IR ARTERIOGRAM EXTREMITY UNILATERAL Left 08/28/2015 IMAGING SUPERVISION & INTERPRETATION EXTREMITY UNILATERAL performed by Delroy Benz MD at OR [facility] IR BIOPSY 08/04/2021 IR BIOPSY 08/18/[address] CATHETER IN ARTERY, THIRD Left 08/28/2015 CATHETER PLACEMENT, ABDOMINAL-LOWER EXTREMITY, THIRD ORDER BRANCH performed by Delroy Benz MD at OR [facility] RELIEVE INNER EYE PRESSURE Right 08/16/2018 right GONIOTOMY performed by Adan Colon MD at OR [facility] RELIEVE INNER EYE PRESSURE Left 08/23/2018 left GONIOTOMY performed by Adan Colon MD at OR [facility] REMOVAL OF DEEP SUPPORT IMPLANT Left 12/07/2019 REMOVAL OF IMPLANT DEEP performed by Amilcar Saavedra MD at OR [facility] REMOVE CATARACT, INSERT LENS PROSTH Right 08/16/2018 right EXTRACAPSULAR CATARACT REMOVAL WITH INTRAOCULAR LENS performed by Adan Colon MD at OR [facility] REMOVE CATARACT, INSERT LENS PROSTH Left 08/23/2018 left EXTRACAPSULAR CATARACT REMOVAL WITH INTRAOCULAR LENS performed by Adan Colon MD at OR [facility] TOTAL HIP REPLACEMENT & PROSTHESIS 1997 THR (Hip Total Replacement) Complete Review of Systems is as stated above, negative, or noncontributory. Review of patient's allergies indicates: Allergen Reactions Tizanidine Current Outpatient Medications Medication Sig Dispense Refill OMEGA 3 1000 MG PO CAPS 2 [...] Change every 3 months 1 Each 3 D77-Cjmcak 1 MG Oral Tablet Chewable (Methylcobalamin) Take [...] as needed for Nausea. 30 Tablet 2 Insulin Glargine Solostar 100 UNIT/ML Subcutaneous Solution Pen-injector (Basaglar KwikPen) Inject 40 Units under the skin every night at bedtime. 45 mL 1 Dexcom G7 Sensor Use to check blood sugar 1 Each 3 Dexcom G7 Farmworker Field Crop Device Use to check blood sugar 1 [...] mouth every other day. 90 Tablet 3 Gabapentin 300 MG Oral Capsule (Neurontin) Take 1 Capsule by mouth in the morning and 1 Capsule in the evening. 180 Capsule 3 Linzess 145 MCG Oral Capsule (linaCLOtide) Take 1 Capsule by mouth daily before breakfast. 90 Capsule 3 Mirtazapine 30 MG Oral Tablet (Remeron) Take 1 Tablet by mouth at bedtime. 30 Tablet 5 Furosemide 40 MG Oral Tablet (Lasix) Take 1 Tablet by mouth in the morning. On Wvadwu-Jqljxjxwl-Cwqpmm only. Metoprolol Succinate ER 25 MG Oral Tablet Extended Release 24 Hour (toPROL XL) Take 1 Tablet by mouth in the morning. Metoprolol Succinate ER 50 MG Oral Tablet [...] BY MOUTH EVERY DAY 90 Tablet 1 LANCET DEVICE MISC test bid 100 3 Albuterol Sulfate HFA 108 (90 Base) MCG/ACT Inhalation Aerosol Solution Inhale by mouth 2 Puffs every 6 hours as needed for Cough, Shortness of Breath or Wheezing. 18 g 3 Ondansetron HCl 8 MG Oral Tablet (Zofran) Take 1 Tablet by mouth every 8 hours as needed for Nausea. 30 Tablet 2 Lenalidomide 10 MG Oral Capsule (Revlimid) TAKE 1 CAPSULE BY MOUTH 1 TIME A DAY FOR 21 DAYS ON, THEN 7 DAYS OFF. 21 Capsule 0 dexAMETHasone 4 MG Oral Tablet (Decadron) Take 20mg once a week 120 Tablet 1 No current facility-administered medications for this visit. OBJECTIVE/PHYSICAL EXAMINATION: BP 110/64 | Pulse 76 | Resp 16 | Wt 66.2 kg (146 lb) | BMI 19.94 kg/m | BSA 1.83 m SBP on my evaluation was 58. General: Acutely ill appearing, restless Skin: Pale. Eyes: PER. Conjunctiva pink, sclera pale HENT: Normocephalic. Atraumatic. Neck: No JVD. Heart: Irregularly irregular at 78. No murmur. Lungs: Decreased. Diminished. Very limited air movement. Right sided crackles. Abdomen: +BS. Soft. Nontender. No masses. No organomegaly. Extremities: No edema. Data: Device interrogation on May 21, 2023 demonstrated appropriate function, 11.2 years remaining longevity. Time in AT/AF: 13.1%. Atrial paced 49.3%. Ventricular paced 8.8%. June 25, 2023 TTE Interpretation Summary ([facility], as per Dr. Mejia): Rate controlled atrial fibrillation with rates in the range of the upper 70s to 80 beat per minute present during the echocardiogram. Large wall motion abnormality with hypokinesis of the basal inferoseptum, inferior wall at the basal in mid levels, and basal level of inferolateral wall. LV systolic function moderately reduced, EF 35 to 40%. Moderately dilated left atrium. Moderate aortic valve sclerosis without significant stenosis. Moderate mitral regurgitation. PASP 37 mmHg (upper limit of normal). LV diastolic function not graded due to the presence of the irregular rhythm. 2D and Doppler criteria suggest elevated diastolic filling pressures. Compared to the previous study of April 22, 2022, the regional wall motion abnormalities and relatively unchanged. There has been a subtle decline in the overall LV systolic function with EF previously 40 to 45%. IMPRESSION: Markedly complex 78-year-old male here today for cardiology and hospital follow-up as detailed above. Patient acutely ill appearing, systolic blood pressure 58. Suspected volume depletion, question symptomatic anemia, question underlying infection. Options discussed. EMS summoned. Cyril S Nat, PA-C Department of Cardiology I spent a total of 40-54 minutes (exact time 48 mins) on the date of service in preparation, delivery, and documentation of the care provided to Dev Hernandez excluding any time spent in the performance of separately billed services. This chart was completed in part utilizing [employer] Speech Voice Recognition Software. Grammatical errors, random word insertions, prounoun errors, and incompletesentences are an occasional consequence of this system due to software limitations, ambient noise, and hardware issues. Any formal questions or concerns about the content, text, or information contained within the body of this dictation should be directly addressed to the provider for clarification. documented in this encounter Procedure Notes * Gio Mejia DO - 07/28/2023 9:54 AM EDTAssociated Order(s): EKG REASON FOR STUDY: Hypotension; hypovolemia CONCLUSIONS: Baseline artifact Atrial fibrillation With occasional ventricular paced QRS complexes Rightward axis Nonspecific ST abnormality Abnormal ECG When compared with ECG of 05-OCT-2022 11:17, Electronic pacemaker detected has replaced Sinus rhythm Ventricular Rate: 75 Atrial Rate: 80 QRS Duration: 96 QT/QTc: 378/422 ms P-R-T [place]: 0 : 100 : 17 degrees documented in this encounter Nursing Notes * Landry Michelle RN - 07/28/2023 10:10 AM EDT IV started 24 gauge into left wrist. NSS 1000 ml up to KVO rate. * Eris Cueva LPN - 07/28/2023 9:04 AM EDT Patient identified by full name and date of Chief Complaint Patient presents with Hospital Follow-Up [facility] 07/06-07/20/23. Very weak- exhaustion just taking showering. Sleeps a lot. Eating alright. SOB with any exertion. Dizziness when standing for a few seconds. Denies chest pain, palpitations and edema. Examination Room: 2 Name: Dev Hernandez Date of : (1945). Reason for Visit: HD follow up Interim Hospitalization(s): [facility] 07/06-07/20/23 Problems/Concerns: See chief complaint Chest Pain/SOB: See chief complaint [facility] Discussed: Not applicable [facility] is a way you can talk to your provider online through e-mail. Would you like to sign up? I can activate it for you? ALREADY ACTIVE Patient was instructed to not get up on the exam table until directed and assisted by their provider; patient is to remain seated in the chair/ wheelchair/ exam table for fall prevention and safety reasons. Patient is aware to have assistance to step down off exam table with personnel. Patient voiced full comprehension of instructions. documented in this encounter Plan of Treatment Upcoming Encounters Date Type Specialty Care Team Description 08/02/2023 Laboratory Laboratory [facility], [address] [facility] [address] [place] [id number] 08/02/2023 Office Visit Hematology Oncology Chito Garcia MD [address] [place] [id number] 08/02/2023 Hem/Onc Treatment Hematology Oncology [place], Chair 3 Hem Onc Scenery [address] [place] [address] 08/04/2023 Office Visit Family Medicine Landen Macario DO [address] [place] [address] 08/16/2023 Pharmacy Pharmacy Pharmacist, [facility] [address] [place] [address] 08/19/2023 Scheduled Telephone Pharmacy Joey Heath Hem/Onc Tech [address] [facility] [place] [address] 10/01/2023 Cardiac Studies Cardiology [facility] [address] [facility] [place] [address] 01/17/2024 Office Visit Family Medicine Landen Macario, DO [address] [place] [address] Health Maintenance Due Date Last Done Comments [...] this encounter Medical Devices Implanted Type Area Manager Utilization Device Identifier Shelf Expiration Date Model / Serial / Lot Lens Intraoc 24.0 - [id number] - [id number] Implanted:Qty: 1 on 08/16/2018 by Adan Colon MD at OR [facility] Right: Eye [employer] 11/17/2022 [id number] / [id number] / [id number] Lens Intraoc 24.0 - [id number] - [id number] Implanted:Qty: 1 on 08/23/2018 by Adan Colon MD at OR [facility] Left: Eye [employer]OM[employer] 06/17/2023 [id number] / [id number] / [id number] Screw [employer] [id number] - [id number] Implanted:Qty: 1 on 12/07/2019 by Amilcar Saavedra MD at OR [facility] Left: Foot EXACTECH [id number] / / documented as of this encounter Procedures Procedure Name Priority Date/Time Associated Diagnosis Comments WI ECG ROUTINE ECG W/LEAST 12 LDS W/I&R Routine 07/28/2023 9:54 AM EDT Coronary artery disease involving [place] coronary artery of [place] heart without angina pectoris Paroxysmal atrial fibrillation (HCC) Presence of cardiac pacemaker Chronic ischemic heart disease Hypotension due to hypovolemia documented in this encounter Results * EKG (07/28/2023 9:54 AM EDT) 07/28/2023 9:54 AM EDT Procedure Note Gio Mejia, DO - 07/28/2023 9:54 AM EDT REASON FOR STUDY: Hypotension; hypovolemia CONCLUSIONS: Baseline artifact Atrial fibrillation With occasional ventricular paced QRS complexes Rightward axis Nonspecific ST abnormality Abnormal ECG When compared with ECG of 05-OCT-2022 11:17, Electronic pacemaker detected has replaced Sinus rhythm Ventricular Rate: 75 Atrial Rate: 80 QRS Duration: 96 QT/QTc: 378/422 ms P-R-T [place]: 0 : 100 : 17 degrees Cyril Johns PA-C EKG [facility] documented in this encounter Visit Diagnoses Diagnosis Hypotension due to hypovolemia- Primary Coronary artery disease involving [place] coronary artery of [place] heart without angina pectoris Paroxysmal atrial fibrillation (HCC) Atrial fibrillation Presence of cardiac pacemaker Cardiac pacemaker in situ Chronic ischemic heart disease Chronic ischemic heart disease, unspecified documented in this encounter Advance Directives Latest [...] and were consensually agreed upon. Care Teams Perioperative Educator Relationship Specialty Start Date End Date Landen Macario, DO [address] [place] [address] PCP - General Family Medicine 02/09/22 documented as of this encounter"
--- OUTSIDE RECORDS SUMMARY | 2023-08-26 18:11 | External Medical Summary ---
Author Name Unknown Address Unknown Organization K09:[facility] [address] [place] [address] Laboratory Report Ordering Provider Test Date Status ANIBAL FIERRO 08/02/2023 10:41:31 Final Observation Date Value Abnormality Reference (Units ) Status SYNC LEUKOCYTES IN BLOOD BY AUTOMATED COUNT 08/02/2023 10:41:31 8.08 4.00-10.80 (K/uL) Final Segs 08/02/2023 10:41:31 78.7 Above high normal 40.0-75.0 (%) Final Lymphs % 08/02/2023 10:41:31 9.3 Below low normal 18.0-42.0 (%) Final Monos 08/02/2023 10:41:31 10.5 1.0-11.0 (%) Final Eosinophils 08/02/2023 10:41:31 1.4 0.0-6.0 (%) Final Basos 08/02/2023 10:41:31 0.1 0.0-2.0 (%) Final Absolute Segs 08/02/2023 10:41:31 6.36 1.80-7.70 (K/uL) Final Lymphs, absolute 08/02/2023 10:41:31 0.75 Below low normal 1.00-4.80 (K/ul) Final Monos, Abs 08/02/2023 10:41:31 0.85 0.00-1.10 (K/uL) Final Eos, Abs 08/02/2023 10:41:31 0.11 0.00-0.70 (K/uL) Final Basos, Abs 08/02/2023 10:41:31 0.01 0.00-0.20 (K/uL) Final Performing Location [facility] [address] [place] [address]
--- OUTSIDE RECORDS SUMMARY | 2023-08-26 18:11 | External Medical Summary | Summary of Care ---
Author Name Unknown Organization [facility] Address [address] [place] [address] Phone [phone] Care Team Providers Care Clerical And Administrative Workers Name Role Phone Landen Macario Primary Care Provider [phone] Reason for Referral * Evaluate & Treat - Unlimited Visits (Within 10 days (routine)) - Pending Review Specialty Diagnoses / Procedures Referred By Contqian t Referred To Contact Hospice and Palliative Medicine / Palliative Medicine Diagnoses HFrEF (heart failure with reduced ejection fraction) (HCC) Multiple myeloma not having achieved remission (HCC) ILD (interstitial lung disease) (HCC) Purnima Soto MD [address], [place] [address] Referral ID Status Reason Start Date Expiration Date Visits Requested Visits Authorized [id number] Pending Review Specialty Services Required 07/22/[phone] Question Answer Referral Priority Within 10 days (routine) Where should this appointment be scheduled? [facility] Reason for Referral: Heart Failure Palliative Medicine To Address: Goals of Care Is this referral for [facility] Palliative service? (P Insurance Only) No Reason for Visit * Reason Comments Hospital Follow-Up Encounter Details Date Type Department Care Team Description 07/22/2023 Office Visit Family Practice State Charleen Cárdenas [address] [place] [address] Purnima Soto MD [address] [place] [id number] Hospital discharge follow-up*; HFrEF (heart failure with reduced ejection fraction) (HCC); Multiple myeloma not having achieved remission (HCC); ILD (interstitial lung disease) (HCC); Paroxysmal atrial fibrillation (HCC); Protein-calorie malnutrition, unspecified severity (HCC) Allergies Active Allergy Reactions Severity Noted Date Comments Tizanidine 06/27/2021 documented as of this encounter (statuses as of 08/02/2023) Medications Medication Sig Dispensed Refills Start Date End Date Status LANCET DEVICE MISCIndications: DM type 2, not at goal ([facility]) test bid 100 3 7 Active OMEGA [...] or Wheezing. 18 g 3 2 Active D07-Hmczrx 1 MG Oral Tablet Chewable (Methylcobalamin ) [...] 1 Each 3 3 Active Dexcom G7 Organizational Development Consultant Device Use to check blood sugar 1 [...] for Constipation. 60 Tablet 1 3 Active Senna 8.6 MG Oral TabletIndication s:Constipation due to pain medication Take by mouth 2 Tablets before bedtime. 90 Tablet 0 2 07/23/20 23 Discontinued(Ref ill) Dexamethasone 4 MG Oral Tablet (Decadron)Indica tions:Multiple myeloma not having achieved remission (HCC) Take 20mg on days 1, 2, 8, 9, 15, 16, 22, 23 every 28 days 120 Tablet 1 3 07/23/20 23 Discontinued(Ref ill) Atorvastatin Calcium 40 MG Oral Tablet (Lipitor)Indicat ions:Dyslipidemi a, goal LDL below 70 TAKE 1 TABLET BY MOUTH EVERY DAY 90 Tablet 1 3 07/27/20 23 Discontinued Metoprolol Succinate ER 50 MG Oral Tablet Extended Release 24 Hour (toPROL XL) Take 1 Tablet by mouth in the morning and 1 Tablet before bedtime. 180 Tablet 3 3 07/23/20 23 Discontinued Insulin Glargine Solostar 100 UNIT/ML Subcutaneous Solution Pen-injector (Carlosaglzahraa Friedman)Indicati ons:Type 2 diabetes mellitus with hemoglobin A1c goal of less than 8.0% (HCC) Inject 40 Units under the skin every night at bedtime. 45 mL 1 3 07/30/20 23 Discontinued(Med ication/Dose Changed) Ciprofloxacin HCl 500 MG Oral Tablet (Cipro) Take 1 Tablet by mouth in the morning and 1 Tablet before bedtime. 0 3 07/23/20 23 Discontinued Furosemide 40 MG Oral Tablet (Lasix) Take [...] ure 06/25/2022 Coronary artery disease invo lving [place] coronary artery of [place] heart without angina pectoris 06/25/2022 Presence [...] 0 05/26/2018 Rosacea 07/28/2001 05/26/2018 LOC PRIM [id number] 07/28/2001 05/26/20 18 documented as of this [...] Comments:occ. cigar Alcohol Use Standard Drinks/Week Comments Yes 0 (1 standard drink = 0.6 oz pur e alcohol) very rare Sex Assigned at Date Recorded Not on file Job Start Date Occupation Industry Not on file Not on file Not on file documented as of this encounter Last Filed Vital Signs Vital Sign Reading Time Taken Comments Blood Pressure 110/60 07/22/2023 2:23 PM EDT Pulse 77 07/22/2023 2:23 PM EDT Temperature 35.8 C (96.4 F) 07/22/2023 2:23 PM ED T Respiratory Rate 16 07/22/2023 2:23 PM EDT Oxygen Saturation 93% 07/22/2023 2:23 PM EDT Inhaled Oxygen Concentration - - Weight 64.9 kg (143 lb 1.3 oz) 07/22/2023 2:23 P M EDT Height - - Body Mass Index 19.54 01/11/2023 3:38 PM EDT documented in this encounter Progress Notes * Purnima Soto MD - 07/22/2023 3:00 PM EDT Subjective Chief Complaint Patient presents with Hospital Follow-Up HPI: Dev Hernandez is a 78 year old male. The following issues were addressed today: Date of admission: 07/06/23 Date of discharge: 07/20/23 Hospital course: Patient is a 78-year-old male with HFrEF, chronic ischemic heart disease, CAD s/p CABG, paroxysmal atrial fibrillation, SSS s/p pacemaker, multiple myeloma on Darzalex, Revlimid and decadron, centrilobular emphysema, and interstitial lung disease who presented to the [facility] ER with c/o worsening SOB and was admitted for pneumonia and acute on chronic multifactorial shortness of breath. Had previousl y been admitted from 06/25-06/30 for a-fib with RVR, HF exacerbation with echo showing EF 35-40%, and foot wound. He received cefepime and Zosyn and was discharged on doxycycline for suspected PNA. Was treated with IV Lasix while inpatient and transitioned back to PO. Did not require O2 on discharge. MM treatment is on hold because of other health conditions. Tests/studies pending at time of discharge: None Course since hospitalization: Patient is here with his . She states he has not been doing well. He is very weak and tired andremains short of breath. He states he is okay at rest but with any movement or activity he feels short of breath. She feels like he was discharged from the hospital too soon. Has been having crampingin the back of his neck, which is his biggest concern today. He denies chest pain or dizziness. I discussed with patient and his what their understanding is of his multiple chronic conditions and what their expectations and priorities are. states she wants him to "get back to normal" but we discussed that with his lung and heart disease that may not be a realistic goal. They stated someone mentioned hospice to them but they weren't sure who to follow-up with and had a lot of questions. states they have not seen palliative care. Review of Systems: See HPI Objective BP 110/60 | Pulse 77 | Temp 35.8 C (96.4 F) (Tympanic) | Resp 16 | Wt 64.9 kg (143 lb 1.3 oz) |SpO2 93% | BMI 19.54 kg/m | BSA 1.81 m General: No acute distress. Appears fatigued. answers most of the questions. Cardiovascular: Irregularly irregular rhythm, normal rate. Respiratory: Limited air movement bilaterally. No crackles or wheezing. Abdomen: Soft, non-distended, non-tender, normoactive bowel sounds Extremities: No edema. Neurological: Alert and oriented. Psychiatric: Appropriate mood and affect. Assessment & Plan Hospital discharge follow-up (Primary) - DISCH MED RECON CUR MED LIS HFrEF (heart failure with reduced ejection fraction) (HCC) Euvolemic today. Continue current medications. Toprol dosage is not clear from discharge instructions, asked patient and his to follow-up with cardiology. Multiple myeloma not having achieved remission (HCC) Follow-up with heme/onc as scheduled. - dexAMETHasone 4 MG Oral Tablet (Decadron); Take 20mg once a week ILD (interstitial lung disease) (HCC) Paroxysmal atrial fibrillation (HCC) Rate-controlled today. Continue current medications. Follow-up with cardiology as scheduled. Protein-calorie malnutrition, unspecified severity (HCC) Palliative medicine referral ordered. Explained role of palliative care to patient and his . This note was electronically signed by Purnima Soto MD documented in this encounter Nursing Notes * Glo Ferris LPN - 07/22/2023 2:16 PM EDT Dev Hernandez presents for hospital recheck. Medications & HM reviewed. Needs to know if he is to only take 75 mg metoprolol in the AM but hospital has it in DC notes to also take 50 mg PM does not feel he was ready to be discharged from hospital. States he is doing worse.can't walkon his own, is SOB, having urinary incontinence. documented in this encounter Plan of Treatment Upcoming Encounters Date Type Specialty Care Team Description 08/04/2023 Office Visit Family Medicine Landen Macario, DO [address] [facility] [address] 08/16/2023 Pharmacy Pharmacy Pharmacist, [facility] [address] [place] [address] 08/19/2023 [facility] [address] [place] [address] 09/20/2023 Office Visit Hematology Oncology Chito Garcia MD [address] [place] [address] 10/01/2023 Cardiac Studies Cardiology Fredy Figueroa [address] [address] 01/17/2024 Office Visit Family Medicine Landen Macario DO [address] [facility] [address] Scheduled Referrals Name Type Priority Associated Diagnoses Orde r Schedule PALLIATIVE CARE REFERRAL OP Referral Within 10 days (routine) HFrEF (heart failure with reduced ejection fraction) (HCC) Multiple myeloma not having achieved remission (HCC) ILD (interstitial lung disease) (HCC) Ordered: 07/22/2023 Health Maintenance Due Date Last Done Comments [...] exists Depression Screening 05/20/2023 05/20/2022 COVID-19 Vaccine (2022- season) 2023 09/04/2022, 05/07/2022, 08/27/2021, Additional history exists DIABETES-EYE EXAM 09/09/2023 09/09/2022, , 10/25/2019, Additional history exists HbA1c 12/15/2023 06/14/2023, 02/15, 01/04/2023, Additional history exists DIG LEVEL FOR MEDICATION MONITORING YEARLY 01/05/2024 01/04/2023, 10/08/2022, 05/15/2022 B-12 03/02/2024 03/02/2023, 07/02/2022, 07/08/2021, Additional history exists O2 ASSESSMENT COMPLETED [...] this encounter Medical Devices Implanted Type Area Tourist Escort Device Identifier Shelf Expiration Date Model / Serial / Lot Lens Intraoc 24.0 - [id number] - [id number] Implanted:Qty: 1 on 08/16/2018 by Adan Colon MD at OR [facility] Right: Eye [employer]OM[employer] 11/17/2022 [id number] / [id number] / [id number] Lens Intraoc 24.0 - [id number] - [id number] Implanted:Qty: 1 on 08/23/2018 by Adan Colon MD at OR [facility] Left: Eye BAUSCH & LOMB 06/17/2023 [id number] / [id number] / [id number] Screw [employer] 3.1bbq66zl - [id number] Implanted:Qty: 1 on 12/07/2019 by Amilcar Saavedra MD at OR [facility] Left: Foot EXACTECH [id number] / / documented as of this encounter Visit Diagnoses Diagnosis Hospital discharge follow-up- Primary Other follow-up examination HFrEF (heart failure with reduced ejection fraction) (HCC) Multiple myeloma not having achieved remission (HCC) Multiple myeloma, without mention of having achieved remission ILD (interstitial lung disease) (HCC) Postinflammatory pulmonary fibrosis Paroxysmal atrial fibrillation (HCC) Atrial fibrillation Protein-calorie malnutrition, unspecified severity (HCC) documented in this encounter Advance Directives Latest [...] and were consensually agreed upon. Care Teams Clerical And Administrative Workers Relationship Specialty Start Date End Date Landen Macario, DO [address] [place] [address] PCP - General Family Medicine 02/09/22 documented as of this encounter
--- OUTSIDE RECORDS SUMMARY | 2023-08-26 18:11 | External Medical Summary ---
Author Name Unknown Address Unknown Organization [id number]:[facility] [address] [address] Laboratory Report Ordering Provider Test Date Status ANIBAL FIERRO 08/02/2023 10:41:31 Final Observation Date Value Abnormality Reference (Units ) Status Phosphate 08/02/2023 10:41:31 2.0 Below low normal 2.5 -4.8 (mg/dL) Final Performing Location [facility] [place] [address]
--- OUTSIDE RECORDS SUMMARY | 2023-08-26 18:11 | External Medical Summary | Summary of Care ---
Author Name Unknown Organization [facility] Address [address] [place] [address] Phone [phone] Care Team Providers Care Draw Fire Operator Name Role Phone Landen Macario Primary Care Provider [phone] Reason for Visit * Reason Onset Date Comments Palliative Care Follow-up 07/28/2023 Encounter Details Date Type Department Care Team Description 07/28/2023 Telephone Palliative Medicine [facility] [address] [place], [place] [id number] Grace Foster CRNP [address] [place] [address] Palliative Care Follow-up Allergies Active Allergy Reactions Severity Noted Date [...] or Wheezing. 18 g 3 04/03/2022 Active T59-Dperxw 1 MG Oral Tablet Chewable (Methylcobalamin) Take [...] hemoglobin A1c goal of less than 8.0% ([facility]) Inject 40 Units under the skin every night at bedtime. 45 mL 1 02/15/2023 Active Dexcom G7 Sensor Use to check blood sugar 1 Each 3 03/04/2023 Active Dexcom G7 Wired Music Operator Device Use to check blood sugar [...] hemoglobin A1c goal of less than 8.0% ([facility]) USE DIRECTED WITH insulins 500 Each 3 [...] (Zofran)Indications :Multiple myeloma not having achieved remission ([facility]) Take 1 Tablet by mouth every 8 [...] ure 06/25/2022 Coronary artery disease invo lving [place] coronary artery of [place] heart without angina pectoris 06/25/2022 Presence of [...] 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,rt druze 07/05/2002 0 05/26/2018 Rosacea 07/28/2001 05/26/2018 LOC PRIM [id number] 07/28/2001 05/26/20 18 documented as of this [...] encounter Miscellaneous Notes * Telephone Encounter - Francesca Becerra LPN - 07/28/2023 1:44 PM EDT Patient was scheduled for New patient palliative appt today During chart review, noted that EMS was called for patient during cardiology visit this morning Call to [facility] Patient currently in ER Appt today cancelled Will call [facility] in 2 days to check on status documented in this encounter Plan of Treatment Upcoming Encounters Date Type Specialty Care Team Description 08/02/2023 Laboratory Laboratory [place], Lab Scenery [address] [place] [address] 08/02/2023 Office Visit Hematology Oncology Chito Garcia MD [address] [place] [address] 08/02/2023 Hem/Onc Treatment Hematology Oncology [place], Chair 3 Hem Onc Scenery [address] [place] [address] 08/16/2023 Pharmacy Pharmacy Pharmacist, [facility] [address] [place] [address] 08/19/2023 Scheduled Telephone Pharmacy [place] [facility] Hem/Onc Tech [address] [place] [place] [address] 10/01/2023 [facility] [address] [address] 01/17/2024 Office Visit Family Medicine Landen Macario DO [address] [place] [address] Health Maintenance Due Date Last Done Comments [...] exists Depression Screening 05/20/2023 05/20/2022 COVID-19 Vaccine (2022-24 season) 2023 09/04/2022, 05/07/2022, 08/27/2021, Additional history exists Influenza Vaccine (FLU shot) (#1) 2023 07/07/2022, 07/21/2021, 07/21/2021, Additional history exists DIABETES-EYE EXAM 09/09/2023 09/09/2022, , 10/25/2019, Additional history exists HbA1c 12/15/2023 06/14/2023, 0503/2023, 01/04/2023, Additional history exists DIG LEVEL FOR [...] this encounter Medical Devices Implanted Type Area Atmospheric Drier Tender Device Identifier Shelf Expiration Date Model / Serial / Lot Lens Intraoc 24.0 - [id number] - [id number] Implanted:Qty: 1 on 08/16/2018 by Adan Colon MD at OR [facility] Right: Eye [employer]OM[employer] 11/17/2022 [id number] / [id number] / [id number] Lens Intraoc 24.0 - [id number] - [id number] Implanted:Qty: 1 on 08/23/2018 by Adan Colon MD at OR [facility] Left: Eye BAUSCH & LOMB 06/17/2023 [id number] / [id number] / [id number] Screw [employer] 3.3pov49ar - [id number] Implanted:Qty: 1 on 12/07/2019 by Amilcar Saavedra MD at OR [facility] Left: Foot EXACTECH [id number] / / documented as of this encounter [...] and were consensually agreed upon. Care Teams Draw Fire Operator Relationship Specialty Start Date End Date Landen Macario, DO [address] [place] [address] PCP - General Family Medicine 02/09/22 documented as of this encounter
--- OUTSIDE RECORDS SUMMARY | 2023-08-26 18:11 | External Medical Summary ---
Author Name Unknown Address Unknown Organization [id number]:[facility] [place] [place] - [place] [facility] [address] [facility] [address] Laboratory Report Ordering Provider Test Date Status ANIBAL FIERRO 08/02/2023 10:41:31 Final Observation Date Value Abnormality Reference (Units) Status Protein 08/02/2023 10:41:31 5.4 Below low normal 6.0-8.3 (g/dL) Final Albumin/Protein.total [Pure mass fraction] in Serum or Plasma by Electrophoresis 08/02/2023 10:41:31 2.94 Below low normal 3.30-4.40 (g/dL) Final Alpha 1 globulin/Protein.tota l [Pure mass fraction] in Serum or Plasma by Electrophoresis 08/02/2023 10:41:31 0.31 Above high normal 0.10-0.30 (g/dL) Final Alpha 2 globulin/Protein.tota l [Pure mass fraction] in Serum or Plasma by Electrophoresis 08/02/2023 10:41:31 1.02 Above high normal 0.60-1.00 (g/dL) Final Beta globulin/Protein.tota l [Pure mass fraction] in Serum or Plasma by Electrophoresis 08/02/2023 10:41:31 0.85 0.80-1.30 (g/dL) Final Gamma globulin/Protein.tota l [Pure mass fraction] in Serum or Plasma by Electrophoresis 08/02/2023 10:41:31 0.27 Below low normal 0.70-1.70 (g/dL) Final Protein Fractions [Interpretation] in Serum or Plasma by Electrophoresis Narrative 08/02/2023 10:41:31 No monoclonal gammopathy detected. Final Performing Location [facility] [place] [place] - [address] [facility] [address]
--- OUTSIDE RECORDS SUMMARY | 2023-08-26 18:11 | External Medical Summary ---
Author Name Unknown Address Unknown Organization K01:[facility] [place] - [facility] [address] [facility] [address] Laboratory Report Ordering Provider Test Date Status ANIBAL FIERRO 08/02/2023 10:41:31 Final Observation Date Value Abnormality Reference (Units ) Status [place] light chains, Free, Serum 08/02/2023 10:41:31 85.17 Above high normal 3.30-19.40 (mg/L) Final [place] light chains, free, Serum 08/02/2023 10:41:31 9.66 5.71-26.30 (mg/L) Final KAPPA LAMBDA FLC RATIO 08/02/2023 10:41:31 8.82 Above high normal 0.26-1.65 Final Performing Location [facility] [place] - [facility] [place] [address]
--- OUTSIDE RECORDS SUMMARY | 2023-08-26 18:11 | External Medical Summary | Summary of Care ---
Author Name Unknown Organization [facility] Address [address] [facility] [address] Phone [phone] Care Team Providers Care Test Lead Name Role Phone Landen Macario Primary Care Provider [phone] Reason for Visit * Reason Onset Date Comments Test Results Lab 08/02/2023 Encounter Details Date Type Department Care Team Description 08/02/2023 Telephone Hematology/Oncology [facility] [place] [address] [facility] [place] [address] Chito Garcia MD [address] [facility] [place] [address] Test Results Lab Allergies Active Allergy Reactions [...] or Wheezing. 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 Metastatic cancer to bone 10/22/2021 Acute systolic congestive heart failure 10/08/2021 Multiple myeloma not having achieved rem ission 08/28/2021 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 09/08/2019 Gastroesophageal reflux disease without esophagitis 03/15/2019 [facility] (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 of insulin 11/25 Paroxysmal atrial [...] 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,rt advent 07/05/2002 0 05/26/2018 Rosacea 07/28/2001 05/26/2018 LOC PRIM [id number] 07/28/2001 05/26/20 18 documented as of this encounter (statuses as of 08/02/2023) Immunizations Name Administration Dates Next Due COVID-19 mRNA, LNP-s, No Pre serve, 2-Dose Series (Moderna) 08/27/2021,01/04/2021,12/02/2020 COVID-19, mRNA, LNP-s, PF, B ooster, 100mcg/0.5mg (Moderna) 05/07/2022 Covid-19, Mrna, Lnp-s, Pf, B ivalent, 30 Mcg, IM, 12 yrs and above (Duda) 09/04/2022 H1N1 2009 Influenza, IM 09/22/2009 PPD [...] Telephone Encounter - Sobeida Mack LPN - 08/02/2023 12:32 PM EDT Patient in treatment room today, sent myG message to make sure Dev is aware to repeat phos nextweek and that we are holding xgeva today per provider. Canceled xgeva beacon for today. Entered phos lab order for next week. ----- Message from Chito Garcia MD sent at 08/02/2023 11:51 AM EDT ----- Phosphorus is 2 with normal calcium and stable creatinine. Currently he is on Lasix for his heart problem. Will continue to monitor his phosphorus level and repeat in 1 week and hold Xgeva documented in this encounter Plan of Treatment Upcoming Encounters Date Type Specialty Care Team Description 08/04/2023 Office Visit Family Medicine Landen Macario, DO [address] [place] [address] 08/16/2023 Pharmacy Pharmacy Pharmacist, [facility] [address] [facility] [address] 08/19/[address]23 [address] [place] [facility] Hem/Onc Tech [address] [place] [address] 09/20/2023 Office Visit Hematology Oncology Chito Garcia MD [address] [place] [address] 10/01/2023 Cardiac Studies Cardiology Fredy Figueroa [address] [address] 01/17/2024 Office Visit Family Medicine Landen Macario DO [address] [place] [address] Scheduled Orders Name Type Priority Associated Diagnoses Orde r Schedule PHOSPHORUS Lab STAT Multiple myeloma not having achieved remission (HCC) Metastatic cancer to bone (HCC) Expected: 08/09/2023 (Approximate), Expires: 08/02/2024 Health Maintenance Due Date Last Done Comments [...] 01/05/2024 01/04/2023, 10/08/2022, 05/15/2022 B-12 03/02/2024 03/02/2023, 0702/2022, 07/08/2021, Additional history exists O2 ASSESSMENT COMPLETED [...] this encounter Medical Devices Implanted Type Area Compression Molding Machine Tender Device Identifier Shelf Expiration Date Model / Serial / Lot Lens Intraoc 24.0 - [id number] - [id number] Implanted:Qty: 1 on 08/16/2018 by Adan Colon MD at OR [facility] Right: Eye [employer]CH [employer]OMB 11/17/2022 [id number] / [id number] / [id number] Lens Intraoc 24.0 - [id number] - [id number] Implanted:Qty: 1 on 08/23/2018 by Adan Colon MD at OR [facility] Left: Eye BAUSCH & LOMB 06/17/2023 [id number] / [id number] / [id number] Screw [employer] 3.7fgy23hs - [id number] Implanted:Qty: 1 on 12/07/2019 by Amilcar Saavedra MD at OR [facility] Left: Foot EXACTECH [id number] / / documented as of this encounter Visit Diagnoses Diagnosis Multiple myeloma not having achieved remission (HCC)- Primary Multiple myeloma, without mention of having achieved remission Metastatic cancer to bone (HCC) Secondary malignant neoplasm of bone and bone marrow documented in this encounter Advance Directives Latest [...] and were consensually agreed upon. Care Teams Test Lead Relationship Specialty Start Date End Date Landen Macario, DO [address] [facility] [place] [address] PCP - General Family Medicine 02/09/22 documented as of this encounter
--- OUTSIDE RECORDS SUMMARY | 2023-08-26 18:11 | External Medical Summary | Summary of Care ---
Author Name Unknown Organization [facility] Address [address] [facility] [place] [address] Phone [phone] Care Team Providers Care Salesperson Surgical Appliances Name Role Phone Renaldo Landen Con MCCABE Primary Care Provider [phone] Reason for Visit * Reason Onset Date Comments Hospital Follow-Up 07/30/2023 Encounter Details Date Type Department Care Team Description 07/30/2023 Telephone Ancillary State Charleen Cárdenas [address] [place] [address] Evelyn Weldon, NATALIE Hospital Follow-Up Allergies Active Allergy Reactions Severity Noted Date [...] or Wheezing. 18 g 3 2 Active I91-Izweww 1 MG Oral Tablet Chewable (Methylcobalamin ) [...] 1 Each 3 3 Active Dexcom G7 Examination Grader Device Use to check blood sugar 1 [...] EVERY DAY 90 Tablet 1 3 Active Furosemide 20 MG Oral Tablet (Lasix) Take 1 Tablet by mouth once a day on Wednesday, Wednesday, and Wednesday only. 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 Metastatic cancer to bone 10/22/2021 Acute systolic congestive heart failure 10/08/2021 Multiple myeloma not having achieved rem ission 08/28/2021 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 09/08/2019 Gastroesophageal reflux disease without esophagitis 03/15/2019 converting technician (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 of insulin 11/25 Paroxysmal atrial [...] 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,rt buddhism 6/07/05/2002 0 05/26/2018 Rosacea 07/28/2001 05/26/2018 LOC PRIM [id number] 07/28/2001 05/26/20 18 documented as of this [...] encounter Miscellaneous Notes * Telephone Encounter - Evelyn Weldon RN - 07/30/2023 11:51 AM EDT Transitions of Care Note Reason for Referral:Recent Admission Phone visit for follow up: sameer Admitted to: [facility], Date: 07.28.23 Discharged to: home, Date: 07.29.23 Diagnosis driving hospitalization: Dizziness Orthostatic hypotension Elevated troponin HS troponin: 33-->28.8-->28.7 Source/Contact: Patient SUBJECTIVE Consent: Verbal consent for review of hospital discharge: Yes REVIEW OF SYSTEMS Patient/Other Reports: Current patient/caregiver problems or concerns: doing better CV: Denies problemss/p pacemaker Pulmonary: Denies problems Chills/Sweats/Fever:Denies chills/sweats Denies fever Appetite:Denies problems such as nausea, vomiting, burning, decreased appetite Current diet: reg Bowel: denies problems Bladder: denies problems Wound (If applicable): Left Foot Wound infection Present on arrival Chronic, following with the wound clinic [facility] consulted Pain:Denies Sleep:Denies problems FUNCTIONAL STATUS: ADL'S: Needs Assistance With:N/A as pt is independent IADL'S: Needs Assistance With:N/A as pt is independent Cognitive and Mental Health: denies problems, alert and oriented x 3, and able to communicate, understand instructions, process information. MEDICATION RECONCILIATION Medications: Reports all medications taken as prescribed. New furosemide [Lasix] 20 mg tablet 20 mg PO UD Qty: 30 0RF Rx Instructions: 3 times a week--on Wednesday, Wednesday and Wednesday only Discontinued furosemide 40 mg Tablet 40 mg PO MoWeFr@0900 Qty: 30 0RF Rx Instructions: on Wednesday, Wednesday and Wednesday only OBJECTIVE ASSESSMENT Medication Risk Assessment: No risks identified Did patient fail outpatient treatment? No Discharge instructions available for review? Yes PLAN Symptom Monitoring Interventions:Member/caregiver education - signs and symptoms to contact PrimaryCare (DO NOT DELETE-[place] symptoms patient is to report to PCP) 1. Worsening symptoms 2. dizziness 3. Chest pain / sob Agricultural TechnicianRotary Engraver of Care interventions/Action Plan: 5 - 7 day follow-up with PCP in place - Date: 08.04.23 Educated on role of SAMEER completed with patient/caregiver. Educated patient/caregiver on patient right to have input on SAMEER plan of care. Verification of Home Health/DME if indicated: NO Identified Care Gaps: No Care Gaps closed this call: Transition of Care follow-up communication Re-evaluation of Plan of Care and progress towards goals achievement: Patient education this visit: Verbal, patient to stay hydrated, follow up with cardiology Plan to follow-up as previously scheduled, instructed to call Primary Care Provider with change in symptoms or as needed before next follow-up, verbalizes understanding and agrees with plan. Lasix dose decreased to 20mg MWF per Cardiology recommendations Will Continue Metoprolol succinate 75mg QAM and 50mg QPM Discussed with Cardiology today. 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 Recent chemotherapy with Darzalex , Revlimid and Decadron Last treatment 05/2023 Continue morphine IR 15 mg for pain, gabapentin 300 mg BID with bowel regimen Follows with oncology as outpatient Evelyn Weldon RN documented in this encounter Plan of Treatment Upcoming Encounters Date Type Specialty Care Team Description 08/02/2023 Laboratory Laboratory [place], [address] [place] [address] 08/02/2023 Office Visit Hematology Oncology Chito Garcia MD [address] [place] [address] 08/02/2023 Hem/Onc Treatment Hematology Oncology [place], Chair 3 Hem Onc Scenery [address] [place] [address] 08/04/2023 Office Visit Family Medicine Landen Macario DO [address] [place] [address] 08/16/2023 Pharmacy Pharmacy Pharmacist, [facility] [address] [place] [address] 08/19/2023 Scheduled Telephone Pharmacy Ivana [facility] Hem/Onc Tech [address] [place] [address] 10/01/2023 [facility]iac Studies [facility] [address] [facility] [place] [address] 01/17/2024 Office Visit Family Medicine Landen Macario, DO [address] [facility] [address] Health Maintenance Due Date Last Done Comments [...] this encounter Medical Devices Implanted Type Area Cyber Security Instructor Device Identifier Shelf Expiration Date Model / Serial / Lot Lens Intraoc 24.0 - [id number] - [id number] Implanted:Qty: 1 on 08/16/2018 by Adan Colon MD at OR [facility] Right: Eye [employer] 11/17/2022 [id number] / [id number] / [id number] Lens Intraoc 24.0 - [id number] - [id number] Implanted:Qty: 1 on 08/23/2018 by Adan Colon MD at OR [facility] Left: Eye [employer]OM[employer] 06/17/2023 [id number] / [id number] / [id number] Screw [employer] [id number] - [id number] Implanted:Qty: 1 on 12/07/2019 by Amilcar Saavedra MD at OR [facility] Left: Foot EX[employer]CH [id number] / / documented as of this encounter [...] and were consensually agreed upon. Care Teams Salesperson Surgical Appliances Relationship Specialty Start Date End Date Landen Macario, DO [address] [facility] [place] [address] PCP - General Family Medicine 02/09/22 documented as of this encounter
--- OUTSIDE RECORDS SUMMARY | 2023-08-26 18:11 | External Medical Summary ---
Author Name Unknown Address Unknown Organization K01:[facility] [address] [place] [address] Laboratory Report Ordering Provider Test Date Status ANIBAL FIERRO 08/02/2023 10:41:31 Final Observation Date Value Abnormality Reference (Units ) Status IgG 08/02/2023 10:41:31 221 Below low normal 700 -1600 (mg/dL) Final IgA 08/02/2023 10:41:31 106 70-400 (mg /dL) Final IgM 08/02/2023 10:41:31 26 Below low normal 40- 230 (mg/dL) Final Performing Location [facility] [address] [place] [address]
--- OUTSIDE RECORDS SUMMARY | 2023-08-26 18:12 | External Medical Summary | Summary of Care ---
Author Name Unknown Organization [facility] Address [address] [place] [address] Phone [phone] Care Team Providers Care Commercial Relationship Manager Name Role Phone Landen Macario Primary Care Provider [phone] Reason for Visit * Reason Comments eRx-Medication Refill Encounter Details Date Type Department Care Team Description 07/02/2023 Refill Hematology/Oncology Treatment, [place] [address] [place] [id number] Chito Garcia MD [address] [facility] [place] [address] Multiple myeloma not having achieved remission (HCC) Allergies Active Allergy Reactions Severity Noted Date Comments Tizanidine 06/27/2021 documented as of this encounter (statuses as of 07/07/2023) Medications Medication Sig Dispensed Refills Start Date End Date Status LANCET DEVICE MISCIndications:D M type 2, not at goal (HCC) test bid 100 3 7 Active OMEGA 3 1000 MG PO CAPSIndications:C hronic ischemic heart disease,Dyslipide sarath, goal LDL below 70 2 per day 90 Cap 0 3 Active Calcium Carbonate-Vitamin D 600-400 MG-UNIT Oral TabletIndications :Multiple myeloma not having achieved remission (HCC) Take by mouth 1 Tablet in the morning AND 1 Tablet before bedtime. 60 Tablet 2 2 Active Additional Information Patient taking differently:1 Tablet OralDaily(AM), Take 1 tablet daily, Reason: per Dr. Garcia, Reported on 11/12/2022 Dexcom G6 SensorIndications :Type 2 diabetes mellitus with peripheral vascular disease (HCC) Use to check blood sugars. Change every 10 days 3 Each 3 2 Active Dexcom G6 TransmitterIndica tions:Type 2 diabetes mellitus with peripheral vascular disease (HCC) Use to check blood sugars. Change every 3 months 1 Each 3 2 Active Senna 8.6 MG Oral TabletIndications :Constipation due to pain medication Take by mouth 2 Tablets before bedtime. 90 Tablet 0 2 Active Additional Information Patient taking differently:2 Tablet OralHS PRN, Reported on 11/13/2022 Albuterol Sulfate HFA 108 (90 Base) MCG/ACT Inhalation Aerosol Solution Inhale by mouth 2 Puffs every 6 hours as needed for Cough, Shortness of Breath or Wheezing. 18 g 3 2 Active S15-Pbeujj 1 MG Oral Tablet Chewable (Methylcobalamin) Take by mouth daily . 0 Active Eliquis 5 MG Oral Tablet (Apixaban) TAKE 1 TABLET BY MOUTH TWICE A DAY 60 Tablet 11 3 Active Omeprazole 20 MG Oral Capsule Delayed Release (PriLOSEC)Indicat ions:Gastroesopha geal reflux disease without esophagitis Take 1 Capsule by mouth in the morning. 90 Capsule 3 3 Active Calcium + Vitamin D3 600-10 MG-MCG Oral Tablet (Calcium Carb-Cholecalcife rol)Indications:M ultiple myeloma not having achieved remission (HCC) TAKE 1 TABLET BY MOUTH EVERY DAY IN THE MORNING AND BEFORE BEDTIME 180 Tablet 2 3 Active Dexamethasone 4 MG Oral Tablet (Decadron)Indicat ions:Multiple myeloma not having achieved remission (HCC) Take 20mg on days 1, 2, 8, 9, 15, 16, 22, 23 every 28 days 120 Tablet 1 3 Active Additional Information Patient taking differently: Take 20mg once a week, Reported on 01/04/2023 NovoLOG FlexPen 100 UNIT/ML Subcutaneous Solution Pen-injector (insulin aspart)Indication s:Type 2 diabetes mellitus with hemoglobin A1c goal of less than 8.0% (HCC) Inject 15 Units under the skin in the morning and 15 Units at noon and 15 Units in the evening. Inject with meals. Plus correction factor of 1:25 over 150. Max Daily Dose of 75 Units.. 75 mL 3 3 Active Prochlorperazine Maleate 10 MG Oral Tablet (Compazine)Indica tions:Multiple myeloma not having achieved remission (HCC) Take 1 Tablet by mouth every 6 hours as needed for Nausea. 30 Tablet 2 3 Active Atorvastatin Calcium 40 MG Oral Tablet (Lipitor)Indicati ons:Dyslipidemia, goal LDL below 70 TAKE 1 TABLET BY MOUTH EVERY DAY 90 Tablet 1 3 Active Metoprolol Succinate ER 50 MG Oral Tablet Extended Release 24 Hour (toPROL XL) Take 1 Tablet by mouth in the morning and 1 Tablet before bedtime. 180 Tablet 3 3 Active Insulin Glargine Solostar 100 UNIT/ML Subcutaneous Solution Pen-injector (Basaglar KwikPen)Indicatio ns:Type 2 diabetes mellitus with hemoglobin A1c goal of less than 8.0% (HCC) Inject 40 Units under the skin every night at bedtime. 45 mL 1 3 Active Dexcom G7 Sensor Use to check blood sugar 1 Each 3 3 Active Dexcom G7 Precision Agriculture Specialist Device Use to check blood sugar 1 Each 1 3 Active Victoza 18 MG/3ML Subcutaneous Solution Pen-injector (Liraglutide)Vera cations:Type 2 diabetes mellitus with peripheral vascular disease (HCC) Inject 1.2 mg under the skin in the morning. 18 mL 3 3 Active BD Pen Needle Short U/F 31G X 8 MM (Insulin Pen Needle)Indication s:Type 2 diabetes mellitus with hemoglobin A1c goal of less than 8.0% (HCC) USE DIRECTED WITH insulins 500 Each 3 3 Active Morphine Sulfate 15 MG Oral Tablet (Msir)Indications :Cancer related pain Take 1 Tablet by mouth [...] Active Ondansetron HCl 8 MG Oral Tablet (Zofran)Indicatio ns:Multiple myeloma not having achieved remission (HCC) Take 1 Tablet by mouth every 8 hours as needed for Nausea. 30 Tablet 2 3 Active Gabapentin 300 MG Oral Capsule (Neurontin)Indica tions:Sensory neuropathy Take 1 Capsule by mouth in the morning and 1 Capsule in the evening. 180 Capsule 3 3 Active Linzess 145 MCG Oral Capsule (linaCLOtide)Vera cations:Therapeut ic opioid induced constipation Take 1 Capsule by mouth daily before breakfast. 90 Capsule 3 3 Active Mirtazapine 30 MG Oral Tablet (Remeron) Take 1 Tablet by mouth at bedtime. 30 Tablet 5 3 Active Ciprofloxacin HCl 500 MG Oral Tablet (Cipro) Take 1 Tablet by mouth in the morning and 1 Tablet before bedtime. 0 3 Active Furosemide 40 MG Oral Tablet (Lasix) Take 1 Tablet by mouth in the morning. On Wednesday-Wednesday -Wednesday only. 0 3 Active Lenalidomide 10 MG Oral Capsule (Revlimid)Indicat ions:Multiple myeloma not having achieved remission (HCC) TAKE 1 CAPSULE BY MOUTH 1 TIME A DAY FOR 21 DAYS ON, THEN 7 DAYS OFF. 21 Capsule 0 3 Active Lenalidomide 10 MG Oral Capsule (Revlimid)Indicat ions:Multiple myeloma not having achieved remission (HCC) Take 1 capsule by mouth 1 time in day for 21 days 21 Capsule 0 3 07/07/20 23 Discontinued documented as of this encounter (statuses as of 07/07/2023) Active Problems Problem Noted Date COPD, group A, by GOLD 2017 classificati on 06/14/2023 ILD (interstitial lung disease) 06/14/20 23 Chronic systolic (congestive) heart fail ure 06/25/2022 Coronary artery disease invo lving [place] coronary artery of [place] heart without angina pectoris 06/25/2022 Presence of cardiac pacemaker 03/24/2022 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 Metastatic cancer to bone 10/22/2021 Acute systolic congestive heart failure 10/08/2021 Multiple myeloma not having achieved rem ission 08/28/2021 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 09/08/2019 Gastroesophageal reflux disease without esophagitis 03/15/2019 halfway (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 of insulin 11/25 Paroxysmal atrial [...] as of this encounter (statuses as of 07/07/2023) Resolved Problems Problem Noted Date Resolved Date [...] 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,rt religion 6/07/05/2002 0 05/26/2018 Rosacea 07/28/2001 05/26/2018 LOC PRIM [id number] 07/28/2001 05/26/20 18 documented as of this encounter (statuses as of 07/07/2023) Immunizations Name Administration Dates Next Due COVID-19 mRNA, LNP-s, No Pre serve, 2-Dose Series (Moderna) 08/27/2021,01/04/2021,12/02/2020 COVID-19, mRNA, LNP-s, PF, B ooster, 100mcg/0.5mg (Moderna) 05/07/2022 Covid-19, Mrna, Lnp-s, Pf, B ivalent, 30 Mcg, IM, 12 yrs and above (Pfizer) 09/04/2022 H1N1 2009 Influenza, IM 09/22/2009 PPD 05/14/2022,05/05/2022 Pneumococcal Conjugate Vacc, 13 Valent (Prevnar) 03/01/2017 Pneumococcal Polysaccharide PPV23 (Pneumovax) 09/06/2007 Seasonal Influenza Virus Vac cine, Unspecified Formulation 07/21/2021,07/03/2020,08/04/2019,08/22,07/30/2012,08/18/2011,09/04/2009 ,10/15/2008,09/01/2008,09/06/2007,07/18,08/25/2005,09/24/2003 Seasonal Influenza, PF, 6 mo ns & Above, IM , (Flulaval) 07/03/2020,08/04/2019 Seasonal Influenza, Quadriva lent Hd (Fluzone Hd) [...] encounter Miscellaneous Notes * Telephone Encounter - Glo Terry RN - 07/07/2023 9:00 AM EDT Prescriber survey complete, auth # [id number] documented in this encounter Plan of Treatment Upcoming Encounters Date Type Specialty Care Team Description 07/12/2023 Office Visit Family Medicine Landen Macario, DO [address] [place] [address] 07/14/2023 Office Visit Palliative Medicine Nan Campos MD [address] [place] [address] 07/20/2023 Scheduled Telephone Pharmacy Ivana [facility] Hem/Onc Tech [address] [place] [address] 07/28/2023 Office Visit Cardiology Cyril Johns PA-C [address] [place] [address] 08/02/2023 Laboratory Laboratory [place], Lab Scenery [address] [place] [address] 08/02/2023 Office Visit Hematology Oncology Chito Garcia MD [address] [place] [address] 08/02/2023 Hem/Onc Treatment Hematology Oncology [place], Chair 7 Hem Onc Scenery [address] [place] [address] 08/16/2023 Pharmacy Pharmacy Pharmacist1, [facility] [address] [place] [address] 10/01/2023 Cardiac Studies [facility] [address] [facility] [place] [address] 01/17/2024 Office Visit Family Medicine Landen Macario DO [address] [place] [address] Health Maintenance Due Date Last Done Comments [...] Additional history exists Depression Screening 05/20/2023 05/20/2022 Influenza Vaccine (FLU shot) (#1) 2023 07/07/2022, [...] ASSESSMENT COMPLETED IN PAST YEAR FOR COPD 07/05/2024 07/05/2023 DTaP,Tdap,and Td Vaccines (2 - Td or Tdap) 04/02/2032 04/02/2022 COLONOSCOPY-EVERY 5 YRS AGES 18-100 Discontinued 11/16/2016, 11/16/2016, 07/16/2006 COVID-19 Vaccine Completed 09/04/2022, , 08/27/2021, Additional history exists GARDASIL-HPV IMMUNIZATION SERIES Aged Out No longer eligible based on patient's age to complete this topic MENINGOCOCCAL (MENACTRA/MENVEO) Aged Out No longer eligible based on patient's age to complete this topic documented as of this encounter Medical Devices Implanted Type Area Information Systems Supervisor Device Identifier Shelf Expiration Date Model / Serial / Lot Lens Intraoc 24.0 - [id number] - [id number] Implanted:Qty: 1 on 08/16/2018 by Adan Colon MD at OR [facility] Right: Eye [employer] 11/17/2022 [id number] / [id number] / [id number] Lens Intraoc 24.0 - [id number] - [id number] Implanted:Qty: 1 on 08/23/2018 by Adan Colon MD at OR [facility] Left: Eye [employer]OM[employer] 06/17/2023 [id number] / [id number] / [id number] Screw [employer] [id number] - [id number] Implanted:Qty: 1 on 12/07/2019 by Amilcar Saavedra MD at OR [facility] Left: Foot EXACTECH [id number] / / documented as of this encounter [...] and were consensually agreed upon. Care Teams Commercial Relationship Manager Relationship Specialty Start Date End Date Landen Macario, DO [address] [facility] [place] [address] PCP - General Family Medicine 02/09/22 documented as of this encounter
--- OUTSIDE RECORDS SUMMARY | 2023-08-26 18:12 | External Medical Summary | Summary of Care ---
Author Name Unknown Organization [facility] Address [address] [place] [address] Phone [phone] Care Team Providers Care Piano Sounding Board Matcher Name Role Phone Yassine Albert DO Primary Care Provider [phone] Reason for Visit * Reason Comments eRx-Medication Refill Encounter Details Date Type Department Care Team Description 07/26/[address] [facility] [address] [facility] [place] [address] Yassine Albert DO [address] [place] [address] Dyslipidemia, goal LDL below 70 Allergies Active Allergy Reactions Severity Noted Date Comments Tizanidine 06/27/2021 documented as of this encounter (statuses as of 07/27/2023) Medications Medication Sig Dispensed Refills Start Date [...] or Wheezing. 18 g 3 2 Active F37-Eksctj 1 MG Oral Tablet Chewable (Methylcobalamin) Take [...] for Nausea. 30 Tablet 2 3 Active Insulin Glargine Solostar 100 UNIT/ML Subcutaneous Solution Pen-injector (Basaglar KwikPen)Indicatio ns:Type 2 diabetes mellitus with hemoglobin A1c goal of less than 8.0% (HCC) Inject 40 Units under the skin every night at bedtime. 45 mL 1 3 Active Dexcom G7 Sensor Use to check blood sugar 1 Each 3 3 Active Dexcom G7 Press Tender Long Goods Device Use to check blood sugar 1 [...] at bedtime. 30 Tablet 5 3 Active Furosemide 40 MG Oral Tablet [...] 3 Active dexAMETHasone 4 MG Oral Tablet (Decadron)Indicat ions:Multiple myeloma [...] EVERY DAY 90 Tablet 1 3 Active Atorvastatin Calcium 40 MG Oral Tablet (Lipitor)Indicati ons:Dyslipidemia, goal LDL below 70 TAKE 1 TABLET BY MOUTH EVERY DAY 90 Tablet 1 3 07/27/20 23 Discontinued documented as of this encounter (statuses as of 07/27/2023) Active Problems Problem Noted Date COPD, group A, by GOLD 2017 classificati on 06/14/2023 ILD (interstitial lung disease) 06/14/20 23 Chronic systolic (congestive) heart fail ure 06/25/2022 Coronary artery disease invo lving [place] coronary artery of [place] heart without angina pectoris 06/25/2022 Presence of cardiac pacemaker 03/24/2022 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 Metastatic cancer to bone 10/22/2021 Acute systolic congestive heart failure 10/08/2021 Multiple myeloma not having achieved rem ission 08/28/2021 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 09/08/2019 Gastroesophageal reflux disease without esophagitis 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 11/25 Paroxysmal atrial [...] as of this encounter (statuses as of 07/27/2023) Resolved Problems Problem Noted Date Resolved Date [...] 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,rt oriental orthodox /07/05/2002 0 05/26/2018 Rosacea 07/28/2001 05/26/2018 LOC PRIM [id number] 07/28/2001 05/26/20 18 documented as of this encounter (statuses as of 07/27/2023) Immunizations Name Administration Dates Next Due COVID-19 [...] encounter Miscellaneous Notes * Telephone Encounter - Fracisco Morel [facility] - 07/27/2023 8:33 AM EDTSigned Prescriptions: Disp Refills Atorvastatin Calcium 40 MG Oral Tablet (Li*90 Tab*1 Sig: TAKE 1 TABLET BY MOUTH EVERY DAYAuthorizing Provider: YASSINE ALBERT User: FRACISCO MOREL- documented in this encounter Plan of Treatment Upcoming Encounters Date Type Specialty Care Team Description 07/28/2023 Office Visit Cardiology Cyril Johns PA-C [address] [place] [address] 07/28/2023 Office Visit Palliative Medicine Grace Foster, [place] [address] [place] [address] 08/02/2023 Laboratory Laboratory [place], Lab Scenery [address] [facility] [address] [facility] [address] 08/02/2023 Office Visit Hematology Oncology hCito Garcia MD [address] [place] [address] 08/02/2023 Hem/Onc Treatment Hematology Oncology [place], Chair 3 Hem Onc Scenery [address] [place] [address] 08/16/2023 Pharmacy Pharmacy Pharmacist, [facility] [address] [facility] [address] 08/19/2023 Scheduled Telephone Pharmacy Ivana [facility] Hem/Onc Tech [address] [place] [address] 10/01/2023 Cardiac Studies Cardiology Fredy Figueroa [facility] [address] [facility] [place] [address] 01/17/2024 Office Visit Family Medicine Yassine Albert, DO [address] [place] [address] Health Maintenance Due Date Last Done Comments [...] 01/05/2024 01/04/2023, 10/08/2022, 05/15/2022 B-12 03/02/2024 03/02/2023, 070 02/2022, 07/08/2021, Additional history exists GFR 07/05/2024 07/05/2023, 080 05/2023, 04/27/2023, Additional history exists O2 ASSESSMENT [...] this encounter Medical Devices Implanted Type Area Director Cost Device Identifier Shelf Expiration Date Model / Serial / Lot Lens Intraoc 24.0 - [id number] - [id number] Implanted:Qty: 1 on 08/16/2018 by Adan Colon MD at OR [facility] Right: Eye BAUSCH & LOMB 11/17/2022 [id number] / [id number] / [id number] Lens Intraoc 24.0 - [id number] - [id number] Implanted:Qty: 1 on 08/23/2018 by Adan Colon MD at OR [facility] Left: Eye BAUSCH & LOMB 06/17/2023 [id number] / [id number] / [id number] Screw [employer] 3.2qbb46rd - [id number] Implanted:Qty: 1 on 12/07/2019 by Amilcar Saavedra MD at OR [facility] Left: Foot EXACTECH [id number] / / documented as of this encounter Visit Diagnoses Diagnosis Dyslipidemia, goal LDL below 70 Other and unspecified hyperlipidemia documented in this encounter Advance Directives Latest [...] and were consensually agreed upon. Care Teams Piano Sounding Board Matcher Relationship Specialty Start Date End Date Yassine Albert, DO [address] [place] [address] PCP - General Family Medicine 02/09/22 documented as of this encounter
--- OUTSIDE RECORDS SUMMARY | 2023-08-26 18:12 | External Medical Summary | Summary of Care ---
Author Name Unknown Organization [facility] Address [address] [place] [address] Phone [phone] Care Team Providers Care Inventory Worker Name Role Phone RenaldoLanden Con MCCABE Primary Care Provider [phone] Reason for Visit * Reason Onset Date Comments Hospital Follow-Up 07/21/2023 Encounter Details Date Type Department Care Team Description 07/21/2023 Telephone Ancillary State Charleen Cárdenas [address] [place], [place] [id number] Joanie Hill RN Hospital Follow-Up Allergies Active Allergy Reactions Severity Noted Date Comments Tizanidine 06/27/2021 documented as of this encounter (statuses as of 07/21/2023) Medications Medication Sig Dispensed Refills Start Date [...] 3 months 1 Each 3 02/02/2022 Active Senna 8.6 MG Oral TabletIndications:C onstipation due to pain medication Take by mouth 2 Tablets before bedtime. 90 Tablet 0 03/09/2022 Active Additional Information Patient taking differently:2 Tablet OralHS PRN, Reported on 11/13/2022 Albuterol Sulfate HFA 108 (90 Base) MCG/ACT Inhalation Aerosol Solution Inhale by mouth 2 Puffs every 6 hours as needed for Cough, Shortness of Breath or Wheezing. 18 g 3 04/03/2022 Active H95-Uksjwe 1 MG Oral Tablet Chewable (Methylcobalamin) Take [...] BEFORE BEDTIME 180 Tablet 2 12/14/2022 Active Dexamethasone 4 MG Oral Tablet (Decadron)Indicatio ns:Multiple myeloma not having achieved remission (HCC) Take 20mg on days 1, 2, 8, 9, 15, 16, 22, 23 every 28 days 120 Tablet 1 12/17/2022 Active Additional Information Patient taking differently: Take [...] for Nausea. 30 Tablet 2 01/27/2023 Active Atorvastatin Calcium 40 MG Oral Tablet (Lipitor)Indication s:Dyslipidemia, goal LDL below 70 TAKE 1 TABLET BY MOUTH EVERY DAY 90 Tablet 1 02/01/2023 Active Metoprolol Succinate ER 50 MG Oral Tablet Extended Release 24 Hour (toPROL XL) Take 1 Tablet by mouth in the morning and 1 Tablet before bedtime. 180 Tablet 3 02/04/2023 Active Insulin Glargine Solostar 100 UNIT/ML Subcutaneous Solution Pen-injector (Basaglar KwikPen)Indications :Type 2 diabetes mellitus with hemoglobin A1c goal of less than 8.0% (HCC) Inject 40 Units under the skin every night at bedtime. 45 mL 1 02/15/2023 Active Dexcom G7 Sensor Use to check blood sugar 1 Each 3 03/04/2023 Active Dexcom G7 Renewable Energy Division Manager Device Use to check blood sugar 1 [...] at bedtime. 30 Tablet 5 06/14/2023 Active Ciprofloxacin HCl 500 MG Oral Tablet (Cipro) Take 1 Tablet by mouth in the morning and 1 Tablet before bedtime. 0 06/30/2023 Active Furosemide 40 MG Oral Tablet (Lasix) Take 1 Tablet by mouth in the morning. On Wednesday-Wednesday- Wednesday only. 0 06/30/2023 Active Lenalidomide 10 MG Oral Capsule (Revlimid)Indicatio ns:Multiple myeloma not having achieved remission (HCC) TAKE 1 CAPSULE BY MOUTH 1 TIME A DAY FOR 21 DAYS ON, THEN 7 DAYS OFF. 21 Capsule 0 07/07/2023 Active documented as of this encounter (statuses as of 07/21/2023) Active Problems Problem Noted Date COPD, group A, by GOLD 2017 classificati on 06/14/2023 ILD (interstitial lung disease) 06/14/20 23 Chronic systolic (congestive) heart fail ure 06/25/2022 Coronary artery disease invo lving [place] coronary artery of [place] heart without angina pectoris 06/25/2022 Presence of [...] as of this encounter (statuses as of 07/21/2023) Resolved Problems Problem Noted Date Resolved Date [...] of inactive term lentigo maligna,rt oriental orthodox 07/05/2002 0 05/26/2018 Rosacea 07/28/2001 05/26/2018 LOC PRIM [id number] 07/28/2001 05/26/20 18 documented as of this encounter (statuses as of 07/21/2023) Immunizations Name Administration Dates Next Due COVID-19 [...] encounter Miscellaneous Notes * Telephone Encounter - Joanie Kramer RN - 07/21/2023 9:46 AM EDT Images from the original note were not included. Transitions of Care Note Reason for Referral:Recent Admission Phone visit for follow up: PARVIN Admitted to: [facility], Date: 07/06/2023 Discharged to: Home with Home Health Services, Date: 07/20/2023 Diagnosis driving hospitalization: Pneumonia Source/Contact: Spouse SUBJECTIVE Consent: Verbal consent for review of hospital discharge: Yes REVIEW OF SYSTEMS Patient/Other Reports: Current patient/caregiver problems or concerns: Pt very tired. unable to get him to wake up. Went to bed at 8PM and did not get up all night. This was at 9:00, I told to go back to patient and wake him up and tell him he needs to get up just to go to the bathroom and then to call me back. called back. Patient did get OOB and to bathroom and was slightly SOB. had some questionsregarding medication so I stated that I would confirm dose and call her back. When I called her back patient was sitting up and eating some eggs. CV: Denies problems Pulmonary: SOB- some SOB while ambulating Chills/Sweats/Fever:Denies chills/sweats Denies fever Appetite:doesn't have much of an appetite but is eating Current diet: Low NA, DM Bowel: denies problems Bladder: denies problems Wound (If applicable): L foot wound. [facility] Home care is coming into day to change dressing Pain:Denies Sleep:Denies problems FUNCTIONAL STATUS: ADL'S: Needs Assistance With:N/A as pt is independent IADL'S: Needs Assistance With:Grocery Shopping, Cooking food, and Routine Housework Cognitive and Mental Health: denies problems, alert and oriented x 3, and able to communicate, understand instructions, process information. MEDICATION RECONCILIATION Medications: Discharge med list reviewed with patient or caregiver New medication(s) filled since hospitalization- see below Discontinued medication(s) since hospitalization- see below thought Metoprolol Succinate 75 mg was to be given BID, I confirmed this was to be given Once a day. ASSESSMENT Medication Risk Assessment: Taking sedatives/hypnotics/narcotic analgesics and increased fall risk PolyPharmacy Did patient fail outpatient treatment? Yes Discharge instructions available for review? Yes PLAN Symptom Monitoring Interventions:Member/caregiver education - signs and symptoms to contact PrimaryCare (DO NOT DELETE-[place] symptoms patient is to report to PCP) 1. Increaseing SOB 2. Cough, wheeze 3. Temp greater than 100, chills Offset Label RewinderAssistant Drafter of Care interventions/Action Plan: Medication reconciliation and 5 - 7 day follow-up with PCP in place - Date: July 22 at 220 Educated on role of PARVIN completed with patient/caregiver. Educated patient/caregiver on patient right to have input on PARVIN plan of care. Verification of Home Health/DME if indicated: YES [facility] Home Health Identified Care Gaps: Yes Care Gaps closed this call: Appointment made or confirmed, Medication adherence, Post discharge appointment, and Transition of Care follow-up communication Re-evaluation of Plan of Care and progress towards goals achievement: Patient education this visit: Verbal, Discussed following medication orders, encouraged patient to drink fluids, and rest. Plan to discharge needs met, verbalizes understanding and agrees with plan. Joanie Kramer RN documented in this encounter Plan of Treatment Upcoming Encounters Date Type Specialty Care Team Description 07/22/2023 Office Visit Family Medicine Purnima Soto MD [address] [facility] [place] [address] 07/28/2023 Office Visit Cardiology Cyril Johns PA-C [address] [place] [address] 08/02/2023 Laboratory Laboratory [place], Lab Scene [address] [place] [address] 08/02/2023 Office Visit Hematology Oncology Chito Garcia MD [address] [place] [address] 08/02/2023 Hem/Onc Treatment Hematology Oncology [place], Chair 3 Hem Onc Scenery [address] [place] [address] 08/16/2023 Pharmacy Pharmacy Pharmacist1, [facility] 200 [facility] [place] [address] 08/19/2023 Scheduled Telephone Pharmacy Joey Heath Hem/Onc Tech [address] [place] [phone] 10/01/2023 Cardiac Studies Cardiology [facility] [address] [facility] [place] [address] 01/17/2024 Office Visit Family Medicine Landen Macario, DO [address] [place] [address] Health Maintenance Due Date Last Done Comments [...] this encounter Medical Devices Implanted Type Area Treating And Pumping Supervisor Device Identifier Shelf Expiration Date Model / Serial / Lot Lens Intraoc 24.0 - [id number] - [id number] Implanted:Qty: 1 on 08/16/2018 by Adan Colon MD at OR [facility] Right: Eye BAUSCH & LOMB 11/17/2022 [id number] / [id number] / [id number] Lens Intraoc 24.0 - [id number] - [id number] Implanted:Qty: 1 on 08/23/2018 by Adan Colon MD at OR [facility] Left: Eye BAUSCH & LOMB 06/17/2023 [id number] / [id number] / [id number] Screw [employer] 3.2ecw97cu - [id number] Implanted:Qty: 1 on 12/07/2019 by Amilcar Saavedra MD at OR [facility] Left: Foot EXACTECH [id number] / / documented as of this encounter [...] and were consensually agreed upon. Care Teams Inventory Worker Relationship Specialty Start Date End Date Landen Macario, DO 200 [facility] [place] [address] PCP - General Family Medicine 02/09/22 documented as of this encounter
--- OUTSIDE RECORDS SUMMARY | 2023-08-26 18:12 | External Medical Summary | Summary of Care ---
Author Name Unknown Organization [facility] Address [address] [place] [address] Phone [phone] Care Team Providers Care Inventory Transcriber Name Role Phone Landen Macario Primary Care Provider [phone] Reason for Visit * Reason Onset Date Comments Encounter Created in Error 07/20/2023 Encounter Details Date Type Department Care Team Description 07/20/2023 Scheduled Telephone Pharmacy Hematology Oncology [facility] [address] [place], [place] [phone] [facility] Hem/Onc [facility] [address] [place], [place] [phone] Canceled (Vehicle Controls Engineer Error) Allergies Active Allergy Reactions Severity Noted Date Comments Tizanidine 06/27/2021 documented as of this encounter (statuses as of 07/23/2023) Medications Medication Sig Dispensed Refills Start Date [...] or Wheezing. 18 g 3 2 Active T28-Wceori 1 MG Oral Tablet Chewable (Methylcobalamin ) [...] 1 Each 3 3 Active Dexcom G7 Aviation Project Engineer Device Use to check blood sugar [...] morning. On Wednesday- y-Wednesday only. 0 3 Active Lenalidomide 10 MG Oral Capsule (Revlimid)Indica tions:Multiple myeloma not having achieved remission (HCC) TAKE 1 CAPSULE BY MOUTH 1 TIME A DAY FOR 21 DAYS ON, THEN 7 DAYS OFF. 21 Capsule 0 3 Active Senna 8.6 MG Oral TabletIndication s:Constipation due to pain medication Take by mouth 2 Tablets before bedtime. 90 Tablet 0 2 07/23/20 23 Discontinued(Ref ill) Dexamethasone 4 MG Oral Tablet (Decadron)Indica tions:Multiple myeloma not having achieved remission (HCC) Take 20mg on days 1, 2, 8, 9, 15, 16, 22, 23 every 28 days 120 Tablet 1 3 07/23/20 23 Discontinued(Ref ill) Metoprolol Succinate ER 50 MG Oral Tablet Extended Release 24 Hour (toPROL XL) Take 1 Tablet by mouth in the morning and 1 Tablet before bedtime. 180 Tablet 3 3 07/23/20 23 Discontinued Ciprofloxacin HCl 500 MG Oral Tablet (Cipro) Take 1 Tablet by mouth in the morning and 1 Tablet before bedtime. 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 Metastatic cancer to bone 10/22/2021 Acute systolic congestive heart failure 10/08/2021 Multiple myeloma not having achieved rem ission 08/28/2021 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 09/08/2019 Gastroesophageal reflux disease without esophagitis 03/15/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 11/25 Paroxysmal atrial [...] as of this encounter (statuses as of 07/23/2023) Resolved Problems Problem Noted Date Resolved Date [...] 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,rt alevism 07/05/2002 0 05/26/2018 Rosacea 07/28/2001 05/26/2018 LOC PRIM [id number] 07/28/2001 05/26/20 18 documented as of this encounter (statuses as of 07/23/2023) Immunizations Name Administration Dates Next Due COVID-19 [...] Cyril Johns PA-C [address] [place] [address] 08/02/2023 Laboratory Laboratory Allen [address] [place] [address] 08/02/2023 Office Visit Hematology Oncology Chito Garcia MD [address] [place] [address] 08/02/2023 Hem/Onc Treatment Hematology Oncology [place], Chair 3 Hem Onc Scenery [address] [place] [address] 08/16/2023 Pharmacy Pharmacy Pharmacist, [facility] [address] [place] [address] 08/19/2023 Scheduled Telephone Pharmacy Ivana [facility] Hem/Onc Tech [address] [place] [phone] 10/01/2023 Cardiac Studies Cardiology Fredy Figueroa [facility] [place] [address] 01/17/2024 Office Visit Family Medicine Landen Macario DO [address] [place] [address] Health Maintenance Due Date Last Done Comments [...] encounter Medical Devices Implanted Type Area Director Of Consumer Marketing Device Identifier Shelf Expiration Date Model / Serial / Lot Lens Intraoc 24.0 - [id number] - [id number] Implanted:Qty: 1 on 08/16/2018 by Adan Colon MD at OR [facility] Right: Eye BAUSCH [employer] LOMB 11/17/2022 [id number] / [id number] / [id number] Lens Intraoc 24.0 - [id number] - [id number] Implanted:Qty: 1 on 08/23/2018 by Adan Colon MD at OR [facility] Left: Eye BAUSCH & LOMB 06/17/2023 [id number] / [id number] / [id number] Screw [employer] 3.3jtw69yo - [id number] Implanted:Qty: 1 on 12/07/2019 by Amilcar Saavedra MD at OR [facility] Left: Foot EXACTECH [id number] / / documented as of this encounter [...] were consensually agreed upon. Care Teams Inventory Transcriber Relationship Specialty Start Date End Date Landen Macario, DO 200 [place] [address] PCP - General Family Medicine 02/09/22 documented as of this encounter
--- OUTSIDE RECORDS SUMMARY | 2023-08-26 18:12 | External Medical Summary | Summary of Care ---
Author Name Unknown Organization [facility] Address [address] [place] [address] Phone [phone] Care Team Providers Care Supervisor Cemetery Workers Name Role Phone Landen Macario DO Primary Care Provider [phone] Encounter Details Date Type Department Care Team Description 07/21/2023 Telephone Family Practice [facility] [place] [address] [facility] [place] [address] Landen Macario DO [address] [facility] [place] [address] Allergies Active Allergy Reactions Severity Noted Date [...] or Wheezing. 18 g 3 04/03/2022 Active E13-Jbvfut 1 MG Oral Tablet Chewable (Methylcobalamin) Take [...] EVERY DAY 90 Tablet 1 02/01/2023 Active Insulin Glargine Solostar 100 UNIT/ML Subcutaneous Solution Pen-injector (Basaglar KwikPen)Indications :Type 2 diabetes mellitus with hemoglobin A1c goal of less than 8.0% (HCC) Inject 40 Units under the skin every night at bedtime. 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 Metastatic cancer to bone 10/22/2021 Acute systolic congestive heart failure 10/08/2021 Multiple myeloma not having achieved rem ission 08/28/2021 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 09/08/2019 Gastroesophageal reflux disease without esophagitis 03/15/2019 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 11/25 Paroxysmal atrial [...] 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,rt taoist 07/05/2002 0 05/26/2018 Rosacea 07/28/2001 05/26/2018 LOC PRIM [id number] 07/28/2001 05/26/20 18 documented as of this [...] Miscellaneous Notes * Telephone Encounter - Glo Ferris LPN - 07/23/2023 9:10 AM EDT Information faxed, confirmation received * Telephone Encounter - Lorenza Hope LPN - 07/21/2023 3:44 PM EDT Vani from [facility] calling Admission/Start of Care Admission/Start of Care: Vani RN, Calling from: [facility] Patient was Admitted to: [facility], for: Pneumonia from 07/06/23 to 07/20/23 Referral received for: Correction Planned start of care date:Yes, Date 07/21 Start of care completed on: today 07/21 Report/Concerns of:None Narrative: Vani request a med rec be completed at tomorrow with Dr Soto. Updated Med list and copied of POLST needs to be faxed to [facility] intake to be place in his chart. I did find POLST inchart dated 01/27/23. PLEASE FAX BOTH AFTER VISIT TOMORROW [facility] FAX [phone] I updated appt note so this is addressed. FYI to Dr Soto. Next Nursing visit(s) on Thursday 07/26 They will call with any updates or additional concerns from the upcoming HH visit. Last Office Visit: 06/14/2023 Has patient been scheduled or seen in the office for a follow up visit: Yes- on1 Advised that orders will be signed by PCP and to fax to the office for signature. Call back [facility] Intake with advice or orders at [phone] Please fax orders to [phone] documented in this encounter Plan of Treatment Upcoming Encounters Date Type Specialty Care Team Description 07/28/2023 Office Visit Cardiology Cyril Johns PA-C [address] [place] [address] 08/02/2023 Laboratory Laboratory [place], Lab Scenery [address] [place] [address] 08/02/2023 Office Visit Hematology Oncology Chito Garcia MD [address] [place] [address] 08/02/2023 Hem/Onc Treatment Hematology Oncology [place], Chair 3 Hem Onc Scenery [address] [place] [address] 08/16/2023 Pharmacy Pharmacy Pharmacist, [facility] [address] [place] [address] 08/19/2023 Scheduled Telephone Pharmacy Ivana [facility] Hem/Onc Tech [address] [facility] [place] [address] 10/01/2023 Cardiac Studies Cardiology [facility] Mira [facility] [address] [place] [address] 01/17/2024 Office Visit Family Medicine Landen Macario, DO [address] [place] [address] Health Maintenance Due Date Last Done Comments [...] this encounter Medical Devices Implanted Type Area Chief Nurse Device Identifier Shelf Expiration Date Model / Serial / Lot Lens Intraoc 24.0 - [id number] - [id number] Implanted:Qty: 1 on 08/16/2018 by Adan Colon MD at OR [facility] Right: Eye [employer]OMB 11/17/2022 [id number] / [id number] / [id number] Lens Intraoc 24.0 - [id number] - [id number] Implanted:Qty: 1 on 08/23/2018 by Adan Colon MD at OR [facility] Left: Eye [employer]CH [employer] LOMB 06/17/2023 [id number] / [id number] / [id number] Screw [employer] 3.2uym70lb - [id number] Implanted:Qty: 1 on 12/07/2019 by Amilcar Saavedra MD at OR [facility] Left: Foot EXACTECH [id number] / / documented as of this encounter [...] and were consensually agreed upon. Care Teams Supervisor Cemetery Workers Relationship Specialty Start Date End Date Landen Macario, DO [address] [place] [address] PCP - General Family Medicine 02/09/22 documented as of this encounter
--- OUTSIDE RECORDS SUMMARY | 2023-08-26 18:12 | External Medical Summary | Summary of Care ---
Author Name Unknown Organization [facility] Address [address] [place] [address] Phone [phone] Care Team Providers Care Electrician Radio Name Role Phone Landen Macario DO Primary Care Provider [phone] Reason for Visit * Reason Onset Date Comments Palliative Care Follow-up 07/23/2023 Encounter Details Date Type Department Care Team Description 07/23/2023 Telephone Palliative Medicine, [facility] [address] [facility] 5th [place] [address] Grace Foster CRNP [address] [place] [address] Palliative Care Follow-up Allergies Active [...] or Wheezing. 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 Metastatic cancer to bone 10/22/2021 Acute systolic congestive heart failure 10/08/2021 Multiple myeloma not having achieved rem ission 08/28/2021 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 09/08/2019 Gastroesophageal reflux disease without esophagitis 03/15/2019 jail (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 documented in this encounter Plan of Treatment Upcoming Encounters Date Type Specialty Care Team Description 07/28/2023 Office Visit Cardiology Cyril Johns PA-C [address] [place] [address] 07/28/2023 Office Visit Palliative Medicine Grace Foster CRNP [address] [facility] [place] [id number] 08/02/2023 Laboratory Laboratory [facility] [address] [facility] [place] [address] 08/02/2023 Office Visit Hematology Oncology Chito Garcia MD [address] [place] [address] 08/02/2023 Hem/Onc Treatment Hematology Oncology [place], Chair 3 Hem Onc Scenery [address] [facility] [place] [address] 08/16/2023 Pharmacy Pharmacy Pharmacist, [facility] [address] [place] [address] 08/19/2023 Scheduled Telephone Pharmacy Ivana [facility] Hem/Onc Tech [address] [facility] [place] [address] 10/01/2023 Cardiac Studies Cardiology Fredy Figueroa [facility] [address] [place] [address] 01/17/2024 Office Visit Family Medicine Landen Macario, DO [address] [place] [address] Health Maintenance Due Date Last Done Comments [...] this encounter Medical Devices Implanted Type Area Lumber Tying Machine Operator Device Identifier Shelf Expiration Date Model / Serial / Lot Lens Intraoc 24.0 - [id number] - [id number] Implanted:Qty: 1 on 08/16/2018 by Adan Colon MD at OR [facility] Right: Eye [employer]OM[employer] 11/17/2022 [id number] / [id number] / [id number] Lens Intraoc 24.0 - [id number] - [id number] Implanted:Qty: 1 on 08/23/2018 by Adan Colon MD at OR [facility] Left: Eye [employer]CH [employer] LOMB 06/17/2023 [id number] / [id number] / [id number] Screw [employer] 3.6fnl03rx - [id number] Implanted:Qty: 1 on 12/07/2019 by Amilacr Saavedra MD at OR [facility] Left: Foot EXACTECH [id number] / / documented as of this encounter [...] and were consensually agreed upon. Care Teams Electrician Radio Relationship Specialty Start Date End Date Landen Macario, DO [address] [facility] [address] PCP - General Family Medicine 02/09/22 documented as of this encounter
--- OUTSIDE RECORDS SUMMARY | 2023-08-26 18:13 | External Medical Summary | Summary of Care ---
Author Name Unknown Organization [facility] Address [address] [facility] [address] Phone [phone] Care Team Providers Care Networking Specialist Name Role Phone RenaldoLanden Con MCCABE Primary Care Provider [phone] Reason for Visit * Reason Comments Outpatient Testing Encounter Details Date Type Department Care Team Description 07/05/2023 Laboratory Laboratory [place] [place] [address] [place] [id number] [facility] Lab Scenery [address] [place] [address] Multiple myeloma not having achieved remission (HCC) Allergies Active Allergy Reactions Severity Noted Date Comments Tizanidine 06/27/2021 documented as of this encounter (statuses as of 07/05/2023) Medications Medication Sig Dispensed Refills Start Date [...] or Wheezing. 18 g 3 04/03/2022 Active B72-Jiqnwf 1 MG Oral Tablet Chewable (Methylcobalamin) Take [...] A1c goal of less than 8.0% ([facility]) Inject 40 Units under the skin every night at bedtime. 45 mL 1 02/15/2023 Active Dexcom G7 Sensor Use to check blood sugar 1 Each 3 03/04/2023 Active Dexcom G7 Automobile Repossessor Device Use to check blood sugar 1 [...] A1c goal of less than 8.0% ([facility]) USE DIRECTED WITH insulins 500 Each 3 [...] other day. 90 Tablet 3 05/19/2023 Active Lenalidomide 10 MG Oral Capsule (Revlimid)Indicatio ns:Multiple myeloma not having achieved remission (HCC) Take 1 capsule by mouth 1 time in day for 21 days 21 Capsule 0 06/01/2023 Active Ondansetron HCl 8 MG Oral Tablet [...] On Wednesday-Wednesday- Wednesday only. 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 Metastatic cancer to bone 10/22/2021 Acute systolic congestive heart failure 10/08/2021 Multiple myeloma not having achieved rem ission 08/28/2021 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 09/08/2019 Gastroesophageal reflux disease without esophagitis 03/15/2019 half-way (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 of insulin 11/25 Paroxysmal atrial [...] as of this encounter (statuses as of 07/05/2023) Resolved Problems Problem Noted Date Resolved Date [...] 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,rt restoration 6/07/05/2002 0 05/26/2018 Rosacea 07/28/2001 05/26/2018 LOC PRIM [id number] 07/28/2001 05/26/20 18 documented as of this encounter (statuses as of 07/05/2023) Immunizations Name Administration Dates Next Due COVID-19 [...] Encounters Date Type Specialty Care Team Description 07/05/2023 Hem/Onc Treatment Hematology Oncology [place], Chair 6 Hem Onc Scenery [address] [place] [address] Arrived 07/12/2023 Office Visit Family Medicine Landen Macario, DO [address] [place] [address] 07/14/2023 Office Visit Palliative Medicine Nan Campos MD [address] [place] [address] 07/20/2023 Scheduled Telephone Pharmacy Ivana [facility] Hem/Onc Tech [address] [place] [address] 07/28/2023 Office Visit Cardiology Cyril Johns PA-C [address] [place] [address] 08/16/2023 Pharmacy Pharmacy Pharmacist, [facility] [address] [place] [address] 10/01/2023 Cardiac Studies Cardiology Fredy Figueroa [facility] [address] [place] [address] 01/17/2024 Office Visit Family Landen Greenfield, DO [address] [place] [address] Pending Results Name Type Priority Associated Diagnoses Date /Time SERUM IMMUNOFIXATION Lab Routine Multiple myeloma not having achieved remission (HCC) 07/05/2023 10:42 AM EDT IMMUNOGLOBULIN QUANTITATIVE Lab Routine Multiple myeloma not having achieved remission (HCC) 07/05/2023 10:42 AM EDT SERUM PROTEIN ELECTROPHORESIS REFLEX PROFILE Lab Routine Multiple myeloma not having achieved remission (HCC) 07/05/2023 10:42 AM EDT SERUM FREE LIGHT CHAINS Lab Routine Multiple myeloma not having achieved remission (HCC) 07/05/2023 10:42 AM EDT [id number], SERUM Lab Routine Multiple myeloma not having achieved remission (HCC) 07/05/2023 10:42 AM EDT Health Maintenance Due Date Last [...] ASSESSMENT COMPLETED IN PAST YEAR FOR COPD 06/14/2024 06/14/2023 GFR 07/05/2024 07/05/2023, 08/0 05/2023, 04/27/2023, Additional history exists DTaP,Tdap,and Td Vaccines (2 [...] this encounter Medical Devices Implanted Type Area Television Host Device Identifier Shelf Expiration Date Model / Serial / Lot Lens Intraoc 24.0 - [id number] - [id number] Implanted:Qty: 1 on 08/16/2018 by Adan Colon MD at OR [facility] Right: Eye [employer]OM[employer] 11/17/2022 [id number] / [id number] / [id number] Lens Intraoc 24.0 - [id number] - [id number] Implanted:Qty: 1 on 08/23/2018 by Adan Colon MD at OR [facility] Left: Eye BAUSCH & LOMB 06/17/2023 [id number] / [id number] / [id number] Screw [employer] 3.5dkt28zu - [id number] Implanted:Qty: 1 on 12/07/2019 by Amilcar Saavedra MD at OR [facility] Left: Foot EXACTECH [id number] / / documented as of this encounter Procedures Procedure Name Priority Date/Time Associated Diagnosis Comments DIFFERENTIAL, AUTOMATED Routine 07/05/2023 10:42 AM EDT Multiple myeloma not having achieved remission (HCC) COMPREHENSIVE METABOLIC PANEL Routine 07/05/2023 10:42 AM EDT Multiple myeloma not having achieved remission (HCC) CBC WITH WBC DIFFERENTIAL Routine 07/05/2023 10:42 AM EDT Multiple myeloma not having achieved remission (HCC) CBC Routine 07/05/2023 10:42 AM EDT Multiple myeloma not having achieved remission (HCC) DIFFERENTIAL, TECHNOLOGIST REVIEW Routine 07/05/2023 10:42 AM EDT Multiple myeloma not having achieved remission (HCC) documented in this encounter Results * (ABNORMAL) DIFFERENTIAL, TECHNOLOGIST REVIEW (07/05/2023 10:42 AM EDT) [facility] nRBCs 07/05/2023 11:18 AM EDT [facility] 56-02 Elliptocytes Moderate(A ) None Seen 07/05/2023 11:18 AM EDT [facility] 56-02 Blood Venous blood specimen / Unknown Venipuncture / Unknown 07/05/2023 10:42 AM EDT 07/05/2023 10:42 AM EDT Chito Garcia MD LAB BLOOD ORDERA BLES [facility] [address]- [address] [place] [address] * (ABNORMAL) DIFFERENTIAL, AUTOMATED (07/05/2023 10:42 AM EDT) [facility] WBC 4.17 4.00 - 10.80 K/uL 07/05/2023 11:18 AM EDT [facility] 56- Neutrophils % 60.0 40.0 - 75.0 % 07/05/2023 11:18 AM EDT [facility] 56- Lymphocytes % 16.8(L) 18.0 - 42.0 % 07/05/2023 11:18 AM EDT [facility] 56- Monocytes % 18.9(H) 1.0 - 11.0 % 07/05/2023 11:18 AM EDT [facility] 56-02 Eosinophils % 4.1 0.0 - 6.0 % 07/05/2023 11:18 AM EDT [facility] 56-02 Basophils % 0.2 0.0 - 2.0 % 07/05/2023 11:18 AM EDT [facility] 56- Absolute Neutrophils 2.50 1.80 - 7.70 K/uL 07/05/2023 11:18 AM EDT [facility] 56-02 Absolute Lymphocytes 0.70(L) 1.00 - 4.80 K/ul 07/05/2023 11:18 AM EDT [facility] 56 Absolute Monocytes 0.79 0.00 - 1.10 K/uL 07/05/2023 11:18 AM EDT [facility] 56 Absolute Eosinophils 0.17 0.00 - 0.70 K/uL 07/05/2023 11:18 AM EDT [facility] 56 Absolute Basophils 0.01 0.00 - 0.20 K/uL 07/05/2023 11:18 AM EDT [facility] 56 Blood Venous blood specimen / Unknown Venipuncture / Unknown 07/05/2023 10:42 AM EDT 07/05/2023 10:42 AM EDT Chito Garcia MD LAB BLOOD ORDERA BLES [facility] [address] [place] [address] * (ABNORMAL) CBC (07/05/2023 10:42 AM EDT) WBC 4.17 4.00 - 10.80 K/uL 07/05/2023 11:18 AM EDT [address] RBC 2.94 4.50 - 5.25 M/uL 07/05/2023 11:18 AM EDT [address] HGB 9.4(L) 14.0 - 16.8 g/dL 07/05/2023 11:18 [address] HCT 30.6(L) 40.0 - 48.4 % 07/05/2023 11:18 AM EDT [facility] 56 MCV 104.1 82.0 - 99.5 fL 07/05/2023 11:18 AM EDT [facility] 56 MCH 32.0 27.0 - 34.0 pg 07/05/2023 11:18 AM EDT [facility] 56 MCHC 30.7 32.0 - 36.0 g/dL 07/05/2023 11:18 AM EDT [facility] 56 RDW 14.8 11.5 - 15.5 % 07/05/2023 11:18 AM EDT [place] [address] PLT 116(L) 140 - 400 K/uL 07/05/2023 11:18 AM EDT [address] MPV 12.3 6.6 - 11.1 fL 07/05/2023 11:18 AM EDT [place] [address] Blood Venous blood specimen / Unknown Venipuncture / Unknown 07/05/2023 10:42 AM EDT 07/05/2023 10:42 AM EDT Chito Garcia MD LAB BLOOD ORDERA BLES [address] [place] [address] * (ABNORMAL) COMPREHENSIVE METABOLIC PANEL (07/05/2023 10:42 AM EDT) BUN 24(H) 6 - 20 mg/dL 07/05/2023 11:09 AM T [address] Creatinine 1.4(H) 0.6 - 1.2 mg/dL 07/05/2023 11:[address] Estimated Glomerular Filtration Rate 50(L) >=60 mL/min 07/05/2023 11:[address] Comment:eGFR is calculated b ased on the CKD-EPI 2020 equation Sodium 137 135 - 146 mmol/L 07/05/2023 11:[address] Potassium 4.3 3.5 - 5.1 mmol/L 07/05/2023 11:09 AM T [place] [address] Chloride 104 98 - 107 mmol/L 07/05/2023 11:09 AM [place] [address] CO2 16(L) 22 - 32 mmol/L 07/05/2023 11:[address] Anion Gap 17(H) 7 - 15 mmol/L 07/05/2023 11:[address] Glucose 281(H) 70 - 120 mg/dL 07/05/2023 11:09 AM [place] [address] Albumin 3.7(L) 3.8 - 5.0 g/dL 07/05/2023 11:09 AM EDT [facility] 56- AST 56(H) 10 - 50 U/L 07/05/2023 11:09 AM EDT [facility] 56- Alkaline Phosphatase 73 35 - 130 U/L 07/05/2023 11:09 AM EDT [facility] 56- Bilirubin, Total 0.8 <=1.2 mg/dL 07/05/2023 11:09 AM EDT [facility] 56- Calcium 8.3(L) 8.4 - 10.2 mg/dL 07/05/2023 11:09 AM EDT [facility] 56- Protein 6.4 6.0 - 8.3 g/dL 07/05/2023 11:09 AM EDT [facility] 56- ALT 68(H) 10 - 50 U/L 07/05/2023 11:09 AM EDT [facility] 56 Blood Venous blood specimen / Unknown Venipuncture / Unknown 07/05/2023 10:42 AM EDT 07/05/2023 10:42 AM EDT Chito Garcia MD LAB BLOOD ORDERA BLES [facility] [address] [facility] [address] documented in this encounter Visit Diagnoses Diagnosis Multiple myeloma [...] and were consensually agreed upon. Care Teams Networking Specialist Relationship Specialty Start Date End Date Landen Macario, DO [address] [facility] [address] PCP - General Family Medicine 02/09/22 documented as of this encounter
--- OUTSIDE RECORDS SUMMARY | 2023-08-26 18:13 | External Medical Summary | Summary of Care ---
Author Name Unknown Organization [facility] Address [address] [facility] [facility] [address] Phone [phone] Care Team Providers Care Food And Nutrition Services Supervisor Name Role Phone AhsanLanden nava Primary Care Provider [phone] Encounter Details Date Type Department Care Team Description 06/27/2023 Orders Only Hematology/Oncology State Charleen Cárdenas [address] [facility] [place] [address] Chito Garcia MD [address] [facility] [place] [address] Allergies Active Allergy Reactions Severity Noted Date Comments Tizanidine 06/27/2021 documented as of this encounter (statuses as of 07/06/2023) Medications Medication Sig Dispensed Refills Start Date [...] or Wheezing. 18 g 3 04/03/2022 Active S44-[id number] 1 MG Oral Tablet Chewable (Methylcobalamin) Take [...] 1 Each 3 03/04/2023 Active Dexcom G7 Software Engineer Web Applications Device Use to check blood sugar 1 Each 03/04/2023 Active Victoza 18 MG/3ML Subcutaneous Solution [...] at bedtime. 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 Metastatic cancer to bone 10/22/2021 Acute systolic congestive heart failure 10/08/2021 Multiple myeloma not having achieved rem ission 08/28/2021 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 09/08/2019 Gastroesophageal reflux disease without esophagitis 03/15/2019 FPC (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 of insulin 11/25 Paroxysmal atrial [...] as of this encounter (statuses as of 07/06/2023) Resolved Problems Problem Noted Date Resolved Date [...] 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,rt judaism 07/05/2002 0 05/26/2018 Rosacea 07/28/2001 05/26/2018 LOC PRIM [id number] 07/28/2001 05/26/20 18 documented as of this encounter (statuses as of 07/06/2023) Immunizations Name Administration Dates Next Due COVID-19 [...] Family Medicine Landen Macario, DO [address] [place] [address] 07/14/2023 Office Visit Palliative Medicine Nan Campos MD [address] [facility] [place] [address] 07/20/2023 Scheduled Telephone Pharmacy [facility] Hem/Onc Tech [address] [facility] [place] [address] 07/28/2023 Office Visit Cardiology Cyril Johns PA-C [address] [place] [address] 08/02/2023 Laboratory Laboratory [place], Lab Scenery [address] [place] [address] 08/02/2023 Office Visit Hematology Oncology Chito Garcia MD [address] [place] [address] 08/02/2023 Hem/Onc Treatment Hematology Oncology [place], Chair 7 Hem Onc Scenery [address] [place] [address] 08/16/2023 Pharmacy Pharmacy Pharmacist1, [facility] Sp [address] [place] [address] 10/01/2023 Cardiac Studies Cardiology Fredy Figueroa [facility] [address] [place] [address] 01/17/2024 Office Visit Family Medicine Landen Macario DO [address] [place] [address] Health Maintenance Due Date Last Done Comments [...] this encounter Medical Devices Implanted Type Area Egg Trayer Device Identifier Shelf Expiration Date Model / Serial / Lot Lens Intraoc 24.0 - [id number] - [id number] Implanted:Qty: 1 on 08/16/2018 by Adan Colon MD at OR [facility] Right: Eye [employer] 11/17/2022 [id number] / [id number] / [id number] Lens Intraoc 24.0 - [id number] - [id number] Implanted:Qty: 1 on 08/23/2018 by Adan Colon MD at OR [facility] Left: Eye [employer] 06/17/2023 [id number] / [id number] / [id number] Screw [employer] [id number] - [id number] Implanted:Qty: 1 on 12/07/2019 by Amilcar Saavedra MD at OR [facility] Left: Foot [employer]CH [id number] / / documented as of this encounter [...] and were consensually agreed upon. Care Teams Food And Nutrition Services Supervisor Relationship Specialty Start Date End Date Landen Macario, DO [address] [place] [address] PCP - General Family Medicine 02/09/22 documented as of this encounter
--- OUTSIDE RECORDS SUMMARY | 2023-08-26 18:13 | External Medical Summary ---
Author Name Unknown Address Unknown Organization K[place] [place] [address] [place] [address] Laboratory Report Ordering Provider Test Date Status ANIBAL FIERRO 07/05/2023 10:42:52 Final Observation Date Value Abnormality Reference (Units) Status Immunofixation for Serum or Plasma 07/05/2023 10:42:52 There is a small abnormality in IgG kappa.Recommend repeat testing in 3 - 6 months, if clinically indicated. Final Performing Location [facility] [place] [address] [place] [address]
--- OUTSIDE RECORDS SUMMARY | 2023-08-26 18:13 | External Medical Summary ---
Author Name Unknown Address Unknown Organization K09:[facility] [place] [address] Laboratory Report Ordering Provider Test Date Status ANIBAL FIERRO 07/05/2023 10:42:52 Final Observation Date Value Abnormality Reference (Units ) Status WBC, Total 07/05/2023 10:42:52 4.17 4.00-10.8 0 (K/uL) Final RBC 07/05/2023 10:42:52 2.94 4.50-5.25 (M/uL) Final Hemoglobin 07/05/2023 10:42:52 9.4 Below low normal 14 .0-16.8 (g/dL) Final HCT 07/05/2023 10:42:52 30.6 Below low normal 40. 0-48.4 (%) Final MCV 07/05/2023 10:42:52 104.1 82.0-99.5 (fL) Final MCH 07/05/2023 10:42:52 32.0 27.0-34.0 (pg) Final MCHC 07/05/2023 10:42:52 30.7 32.0-36.0 (g/dL) Final RDW 07/05/2023 10:42:52 14.8 11.5-15.5 (%) Final Platelets 07/05/2023 10:42:52 116 Below low normal 140 -400 (K/uL) Final MPV 07/05/2023 10:42:52 12.3 6.6-11.1 ( fL) Final Performing Location [facility] [place] [address]
--- OUTSIDE RECORDS SUMMARY | 2023-08-26 18:13 | External Medical Summary | Summary of Care ---
Author Name Unknown Organization [facility] Address [address] [facility] [address] Phone [phone] Care Team Providers Care Coiler Name Role Phone AhsanLanden nava Primary Care Provider [phone] Reason for Visit * Reason Onset Date Comments Advice 07/05/2023 Encounter Details Date Type Department Care Team Description 07/05/2023 Telephone Cardiology, [facility] [address] [place] [address] DO [address] [place] [address] Advice Allergies Active Allergy Reactions Severity Noted Date [...] or Wheezing. 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 Metastatic cancer to bone 10/22/2021 Acute systolic congestive heart failure 10/08/2021 Multiple myeloma not having achieved rem ission 08/28/2021 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 Reports patient did not receive treatment at hem/onc today due to increase shortness of breath and low bp. Spouse reports shortness of breath has been increasing/worsening since hospital d/c. Discussed with Dr. Lane who recommends patient return to ER for evaluation if symptoms are worsening from d/c. Unable to increase diuretics from an outpatient standpoint should there be fluid overload as patient will require close monitoring. States shortness of breath is multifactorial in nature. Discussed with spouse, verbalizing understanding. Will await patient to return home and determine if ER is needed. documented in this encounter Plan of Treatment Upcoming Encounters Date Type Specialty Care Team Description 07/12/2023 Office Visit Family Medicine Ladnen Macario, [address] [place] [address] 07/14/2023 Office Visit Palliative Medicine Nan Campos MD [address] [place] [address] 07/20/2023 [facility] [address] [place] [address] 07/28/2023 Office Visit Cardiology Cyril Johns PA-C [address] [place] [address] 08/02/2023 Laboratory Laboratory Allen Ramirez [address] [place] [address] 08/02/2023 Office Visit Hematology Oncology Chito Garcia MD [address] [place] [address] 08/02/2023 Hem/Onc Treatment Hematology Oncology [place], Chair 7 Hem Onc Scenery [address] [place] [address] 08/16/2023 Pharmacy Pharmacy Pharmacist1, [facility] [address] [place] [address] 10/01/2023 Cardiac Studies Cardiology [place], Pacer [facility] [address] [facility] [place] [address] 01/17/2024 Office Visit Family Medicine Landen Macario DO [address] [place] [address] Health Maintenance Due Date Last Done Comments [...] this encounter Medical Devices Implanted Type Area Resistance Brazer Device Identifier Shelf Expiration Date Model / Serial / Lot Lens Intraoc 24.0 - [id number] - [id number] Implanted:Qty: 1 on 08/16/2018 by Adan Colon MD at OR [facility] Right: Eye [employer] 11/17/2022 [id number] / [id number] / [id number] Lens Intraoc 24.0 - [id number] - [id number] Implanted:Qty: 1 on 08/23/2018 by Adan Colon MD at OR [facility] Left: Eye [employer]OM[employer] 06/17/2023 [id number] / [id number] / [id number] Screw [employer] 3.3zoh28wb - [id number] Implanted:Qty: 1 on 12/07/2019 by Amilcar Saavedra MD at OR [facility] Left: Foot EXACTECH [id number] / / documented as of this encounter [...] and were consensually agreed upon. Care Teams Coiler Relationship Specialty Start Date End Date Landen Macario, DO [address] [place] [address] PCP - General Family Medicine 02/09/22 documented as of this encounter
--- OUTSIDE RECORDS SUMMARY | 2023-08-26 18:13 | External Medical Summary | Summary of Care ---
Author Name Unknown Organization [facility] Address [address] [place] [address] Phone [phone] Care Team Providers Care Customs Compliance Analyst Name Role Phone Landen Macario DO Primary Care Provider [phone] Reason for Visit * Reason Comments Chemotherapy Chemo/recheck Encounter Details Date Type Department Care Team Description 07/05/2023 Office Visit Hematology/Oncology [facility] [address] [facility] [place] [address] Grace Veronica CRNP [address] [place] [address] Multiple myeloma in remission (HCC)*; Encounter for antineoplastic chemotherapy Allergies Active Allergy Reactions Severity Noted Date [...] or Wheezing. 18 g 3 2 Active [id number] 1 MG Oral Tablet Chewable (Methylcobalamin) Take [...] Solostar 100 UNIT/ML Subcutaneous Solution Pen-injector (Basaglar Elder)Indicatio ns:Type 2 diabetes mellitus with hemoglobin A1c goal of less than 8.0% (HCC) Inject 40 Units under the skin every night at bedtime. 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 Metastatic cancer to bone 10/22/2021 Acute systolic congestive heart failure 10/08/2021 Multiple myeloma not having achieved rem ission 08/28/2021 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 09/08/2019 Gastroesophageal reflux disease without esophagitis 03/15/2019 custodial (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 of insulin 11/25 Paroxysmal atrial [...] 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,rt episcopal 07/05/2002 0 05/26/2018 Rosacea 07/28/2001 05/26/2018 LOC PRIM [id number] 07/28/2001 05/26/20 18 documented as of this [...] Sign Reading Time Taken Comments Blood Pressure 96/56 07/05/2023 10:55 AM EDT Pulse 83 07/05/2023 10:55 AM EDT Temperature 36.5 C (97.7 F) 07/05/2023 10:55 AM E DT Respiratory Rate 16 07/05/2023 10:55 AM EDT Oxygen Saturation 94% 07/05/2023 10:55 AM EDT Inhaled Oxygen Concentration - - Weight 70.3 kg (155 lb) 07/05/2023 10:55 AM EDT Height - - Body Mass Index 21.17 01/11/2023 3:38 PM EDT documented in this encounter Progress Notes * MADISON Baker - 07/05/2023 11:00 AM EDT Images from the original note were not included. Hematology/Oncology Outpatient Clinic note Maddy Re[facility] [address] [facility] [place] [address] Name: Dev Hernandez Date: 07/05/2023 CHIEF COMPLAINT: Dev Hernandez is a 78 year old male patient of Dr. Dale Radha here today for f/u visit today. From Patient chart confirmed with patient. 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 Patient has stage II disease based on the revised international multiple myeloma staging system (beta 2 microglobulin 4.02, serum albumin more than 3.5 gram/dL, normal LDH and no deletion of high risk translocation based on the FISH result DATE OF DIAGNOSIS: 08/18/21 CURRENT TREATMENT: Darzalex plus Revlimid and Decadron (12/1/22 - ) Cycles 1 and 2: A cycle is every 28 days: Lenalidomide (Revlimid) 25 mg flat dose orally once daily on days 1 through 21 of cycles 1 and 2 Dexamethasone 20 mg flat dose orally or IV once daily on days 1, 2, 8, 9, 15, 16, 22, and 23 of cycles 1 and 2 Daratumumab and hyaluronidase-fihj (Darzalex Faspro) 1,800 mg/30,000 units flat dose subcutaneouslyonce daily on days 1, 8, 15, and 22 of cycles 1 and 2 Cycles 3 through 6: A cycle is every 28 days: Lenalidomide (Revlimid) 25 mg flat dose orally once daily on days 1 through 21 of cycles 3 through 6 Dexamethasone 20 mg flat dose orally or IV once daily on days 1, 2, 15, and 16 of cycles 3 through 6 Dexamethasone 40 mg flat dose orally or IV once daily on days 8 and 22 of cycles 3 through 6 Daratumumab and hyaluronidase-fihj (Darzalex Faspro) 1,800 mg/30,000 units flat dose subcutaneouslyonce daily on days 1 and 15 of cycles 3 through 6 Cycles 7 and beyond: A cycle is every 28 days: Lenalidomide (Revlimid) 25 mg flat dose orally once daily on days 1 through 21 of cycles 7 and beyond Dexamethasone 20 mg flat dose orally or IV once daily on days 1 and 2 of cycles 7 and beyond Dexamethasone 40 mg flat dose orally or IV once daily on days 8, 15, and 22 of cycles 7 and beyond Daratumumab and hyaluronidase-fihj (Darzalex Faspro) 1,800 mg/30,000 units flat dose subcutaneouslyonce on day 1 of cycles 7 and beyond Xgeva 120 mg subq every four weeks TREATMENT HISTORY: Revlimid plus Velcade and Decadron - treatment is on hold because of other comorbid condition. He was also evaluated for the stem cell transplant but not eligible because of comorbid conditions. Received last cycle of Revlimid between 03/16/2022-03/29/2022. Received last dose of Velcade on 04/21/2022 ONCOLOGY HISTORY: Patient with past medical history significant for atrial fibrillation, coronary artery disease status post CABG at the age of 48, status post hip replacement surgery, diabetes presented with complaint of back pain and the left flank [...] Patient had bone and bone marrow biopsy can which is consistent with multiple myeloma. A. [...] in adequate numbers. Granulopoiesis is adequate and interline clerk. 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 M:E ratio is approximately [...] DETECTED Del(17p)(TP53): Not Detected IGH(Rearrangement): Not Detected He had a repeat bone marrow biopsy [...] Follow-up PET scan was done on 02/16/2022 which again revealed excellent response with Interval sclerosis and [...] was discharged on oxygen supplement and currently [facility]. Because of comorbid conditions and worsening performance status his treatment was placed on hold. Now clinically he is feeling better with improvement in energy level. He is walking with a cane andgain weight. Room air oxygen saturation is 100%. Recent blood test revealed increase in the kappa free light chain level with increasing ratio. Patient has progressive disease with increase light chain. He received last dose of Velcade in 04/2022. Decision was made to resume treatment with Darzalex plus Revlimid and Decadron. Started new treatment plan 09/17/22. Currently he is on Darzalex on every other week basis plus Revlimid and Decadron. Myeloma panel is in acceptable range and he seems to be in remission. Because of the comorbid condition and high riskof infection and complication I will decrease the frequency of Darzalex to monthly and Decadron to 20 mg starting 01/04/23. Was determined to not be a candidate for SCT. Interval History: Patient was recently admitted at [facility] 06/25/23 - 06/30/23: Revlimid and dexamethasone were continued during admission. HISTORY OF PRESENT ILLNESS: Dev Hernandez is a 78 year old male with a history as outlined above. Currently here for f/u visit today and consideration for C10D1 of treatment plus Xgeva injection. Patient is in wheelchair today. Continues to experience increased SOB with minimal exertion and chest discomfort. Discharged onincreased Lasix and Metoprolol. Denies dizziness. Continues to have walking boot today. Wound on left foot is not healing. Has completed his oral antibiotics. Pain continues to be well controlled on current regimen. Continues to have nausea. Antiemetics are effective. Takes these twice a day. Omeprazole also helped with this. Appetite comes and goes. Denies rash. Does have some chronic opioid brian lisbeth constipation. Takes senokot as needed. Pain well controlled on Morphine IR. Tries to only take this once a day at night. Last dose of Revlimid of current cycle is today. Past Medical History: Diagnosis Date Atrial fibrillation (HCC) post op COPD (chronic obstructive pulmonary disease) (HCC) Coronary atherosclerosis 10/18/1993 Other and unspecified malignant neoplasm of skin of other and unspecified parts of face Primary localized osteoarthrosis, lower leg 10/18/1996 hip Pulmonary arterial hypertension (HCC) Rosacea Past Surgical History: Procedure Laterality Date BONE MARROW BIOPSY Left 02/27/2022 BONE MARROW BIOPSY (IES) performed by Cyril Aguiar DO at OR [facility] CABG, ARTERIAL, FOUR OR MORE 1993 CABG, Arterial, Four+ COLONOSCOPY, DIAGNOSTIC (RECTUM) 11/16/2016 adenomatous polyps, repeat 5 yrs/COLONOSCOPY FLEXIBLE PROXIMAL DIAGNOSTIC performed by Jorje Lee MD at ENDOSCOPY [facility] DIABETIC EYE EXAM 12/23/09 no diabetic retinopathy INCISION OF 1ST METATARSAL Left 12/07/2019 OSTEOTOMY 1ST METATARSAL performed by Amilcar Saavedra MD at OR [facility] INFORMATION 07/21 ORIF left foot MTPJ INFORMATION 10/22 revision of MTP joint IR ARTERIOGRAM EXTREMITY UNILATERAL Left 08/28/2015 IMAGING SUPERVISION & INTERPRETATION EXTREMITY UNILATERAL performed by Delroy Benz MD at OR [facility] IR BIOPSY 08/04/2021 IR BIOPSY 08/18/[address]21 [address]HS [address] CATHETER IN ARTERY, THIRD Left 08/28/2015 CATHETER PLACEMENT, ABDOMINAL-LOWER EXTREMITY, THIRD ORDER BRANCH performed by Delroy Benz MD at OR [facility] RELIEVE INNER EYE PRESSURE Right 08/16/2018 right GONIOTOMY performed by Adan Colon MD at OR [facility] RELIEVE INNER EYE PRESSURE Left 08/23/2018 left GONIOTOMY performed by Adan Colon MD at OR [facility] REMOVAL OF DEEP SUPPORT IMPLANT Left 12/07/2019 REMOVAL OF IMPLANT DEEP performed by Amilcar Saavedra MD at OR [facility] REMOVE CATARACT, INSERT LENS PROSTH Right 08/16/2018 right EXTRACAPSULAR CATARACT REMOVAL WITH INTRAOCULAR LENS performed by Adan Colon MD at OR [facility] REMOVE CATARACT, INSERT LENS PROSTH Left 08/23/2018 left EXTRACAPSULAR CATARACT REMOVAL WITH INTRAOCULAR LENS performed by Adan Colon MD at OR [facility] TOTAL HIP REPLACEMENT & PROSTHESIS 1996 THR (Hip Total Replacement) Social History Socioeconomic History Marital status: Spouse name: Not on file Number of children: 1 Years of education: 12 Highest education level: Not on file Occupational History 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 cigar Vaping Use Vaping Use: Never used Substance and Sexual Activity Alcohol use: Yes Comment: very rare Drug use: Yes Types: Marijuana Comment: Liquid, medical marijuana; also has gummies Sexual activity: Yes Partners: Female Other Topics Concern Service No Comment: [employer] Blood Transfusions No Caffeine Concern No Occupational Exposure No Hobby Hazards No Sleep Concern No Stress Concern No Weight Concern No Special Diet No Back Care No Exercise Yes Bike Helmet No Seat Belt Yes Self-Exams Yes Social History Narrative No pets. No mold. Lives with spouseRetired Social Determinants of Health Financial Resource Strain: Not on file Food Insecurity: Not on file Transportation Needs: Not on file Physical Activity: Not on file Stress: Not on file Social Connections: Not on file Intimate Partner Violence: Not on file Housing Stability: Not on file Review of patient's allergies indicates: Allergen Reactions [...] Change every 3 months 1 Each 3 Senna 8.6 MG Oral Tablet Take by mouth 2 Tablets before bedtime. (Patient taking differently: Take 2 Tablets by mouth at bedtime as needed.) 90 Tablet 0 Albuterol Sulfate HFA 108 (90 Base) MCG/ACT Inhalation Aerosol Solution Inhale by mouth 2 Puffs every 6 hours as needed for Cough, Shortness of Breath or Wheezing. 18 g 3 [id number] 1 MG Oral Tablet Chewable (Methylcobalamin) Take [...] MORNING AND BEFORE BEDTIME 180 Tablet 2 Dexamethasone 4 MG Oral Tablet (Decadron) Take 20mg on days 1, 2, 8, 9, 15, 16, 22, 23 every 28 days (Patient taking differently: Take 20mg once a week) 120 Tablet 1 NovoLOG FlexPen 100 UNIT/ML Subcutaneous Solution Pen-injector [...] as needed for Nausea. 30 Tablet 2 Atorvastatin Calcium 40 MG Oral Tablet (Lipitor) TAKE 1 TABLET BY MOUTH EVERY DAY 90 Tablet 1 Metoprolol Succinate ER 50 MG Oral Tablet Extended Release 24 Hour (toPROL XL) Take 1 Tablet by mouth in the morning and 1 Tablet before bedtime. 180 Tablet 3 Insulin Glargine Solostar 100 UNIT/ML Subcutaneous Solution Pen-injector (Basaglar KwikPen) Inject 40 Units under the skin every night at bedtime. 45 mL 1 Dexcom G7 Sensor Use to check blood sugar 1 Each 3 Dexcom G7 Professional Golf Tournament Player Device Use to check blood sugar 1 [...] mouth every other day. 90 Tablet 3 Lenalidomide 10 MG Oral Capsule (Revlimid) Take 1 capsule by mouth 1 time in day for 21 days 21 Capsule 0 Ondansetron HCl 8 MG Oral Tablet (Zofran) [...] by mouth at bedtime. 30 Tablet 5 Ciprofloxacin HCl 500 MG Oral Tablet (Cipro) Take 1 Tablet by mouth in the morning and 1 Tablet before bedtime. Furosemide 40 MG Oral Tablet (Lasix) Take 1 Tablet by mouth in the morning. On Cufvcs-Ympzokcsw-Wzwcpz only. No current facility-administered medications for this visit. REVIEW OF SYSTEMS: See HPI - otherwise negative OBJECTIVE: Filed Vitals: 07/05/23 1055 BP: 96/56 Pulse: 83 Resp: 16 Temp: 36.5 C (97.7 F) TempSrc: Tympanic SpO2: 94% Weight: 70.3 kg (155 lb) Wt Readings from Last 5 Encounters: 07/05/23 70.3 kg (155 lb) 06/14/23 72.8 kg (160 lb 6.4 oz) 05/25/23 70.5 kg (155 lb 6.4 oz) 05/05/23 72 kg (158 lb 12.8 oz) 04/27/23 66.8 kg (147 lb 4.8 oz) PHYSICAL EXAM: ECOG: Performance Status 2 = 60-70% Bedtime, < 50% daytime General Appearance: No acute distress Lungs/Thorax: Lung sounds diminished throughout to auscultation Heart: Normal - Regular rate, irregular rhythm, no appreciable murmurs Extremities: No edema, walking boot on left foot Neurologic: alert and oriented x 4, in wheelchair today LABS: Results for orders placed or performed in visit on 07/05/23 COMPREHENSIVE METABOLIC PANEL Result Value Ref Range BUN 24 (H) 6 - 20 mg/dL Creatinine 1.4 (H) 0.6 - 1.2 mg/dL Estimated Glomerular Filtration Rate 50 (L) >=60 mL/min Sodium 137 135 - 146 mmol/L Potassium 4.3 3.5 - 5.1 mmol/L Chloride 104 98 - 107 mmol/L CO2 16 (L) 22 - 32 mmol/L Anion Gap 17 (H) 7 - 15 mmol/L Glucose 281 (H) 70 - 120 mg/dL Albumin 3.7 (L) 3.8 - 5.0 g/dL AST 56 (H) 10 - 50 U/L Alkaline Phosphatase 73 35 - 130 U/L Bilirubin, Total 0.8 <=1.2 mg/dL Calcium 8.3 (L) 8.4 - 10.2 mg/dL Protein 6.4 6.0 - 8.3 g/dL ALT 68 (H) 10 - 50 U/L SERUM IMMUNOFIXATION Result Value Ref Range Immunofixation Interpretation There is a small abnormality in IgG kappa.Recommend repeat testing in 3 - 6 months, if clinically indicated. IMMUNOGLOBULIN QUANTITATIVE Result Value Ref Range IgG 225 (L) 700 - 1,600 mg/dL IgA 113 70 - 400 mg/dL IgM 24 (L) 40 - 230 mg/dL SERUM PROTEIN ELECTROPHORESIS REFLEX PROFILE Result Value Ref Range Protein 5.7 (L) 6.0 - 8.3 g/dL Albumin 2.99 (L) 3.30 - 4.40 g/dL Alpha-1 Globulin 0.32 (H) 0.10 - 0.30 g/dL Alpha-2 Globulin 1.13 (H) 0.60 - 1.00 g/dL Beta-Globulin 0.93 0.80 - 1.30 g/dL Gamma-Globulin 0.33 (L) 0.70 - 1.70 g/dL Electrophoresis Interpretation No paraprotein detected. Decreased gamma fraction. Urine immunofixation recommended in follow up, if clinically indicated. See serum immunofixation results. SERUM FREE LIGHT CHAINS Result Value Ref Range [place] Free Light Chains, Serum 29.31 (H) 3.30 - 19.40 mg/L Lambda Free Light Chains, Serum 12.40 5.71 - 26.30 mg/L [place] Lambda Free Light Chains Ratio 2.36 (H) 0.26 - 1.65 CBC Result Value Ref Range WBC 4.17 4.00 - 10.80 K/uL RBC 2.94 4.50 - 5.25 M/uL HGB 9.4 (L) 14.0 - 16.8 g/dL HCT 30.6 (L) 40.0 - 48.4 % MCV 104.1 82.0 - 99.5 fL MCH 32.0 27.0 - 34.0 pg MCHC 30.7 32.0 - 36.0 g/dL RDW 14.8 11.5 - 15.5 % PLT 116 (L) 140 - 400 K/uL MPV 12.3 6.6 - 11.1 fL DIFFERENTIAL, AUTOMATED Result Value Ref Range WBC 4.17 4.00 - 10.80 K/uL Neutrophils % 60.0 40.0 - 75.0 % Lymphocytes % 16.8 (L) 18.0 - 42.0 % Monocytes % 18.9 (H) 1.0 - 11.0 % Eosinophils % 4.1 0.0 - 6.0 % Basophils % 0.2 0.0 - 2.0 % Absolute Neutrophils 2.50 1.80 - 7.70 K/uL Absolute Lymphocytes 0.70 (L) 1.00 - 4.80 K/ul Absolute Monocytes 0.79 0.00 - 1.10 K/uL Absolute Eosinophils 0.17 0.00 - 0.70 K/uL Absolute Basophils 0.01 0.00 - 0.20 K/uL DIFFERENTIAL, TECHNOLOGIST REVIEW Result Value Ref Range nRBCs Elliptocytes Moderate (A) None Seen *Note: Due to a large number of results and/or encounters for the requested time period, some results have not been displayed. A complete set of results can be found in Results Review. IMPRESSION/PLAN: Multiple myeloma with lytic bone lesions Encounter for chemotherapy Currently receiving Darzalex plus Revlimid and Decadron. Darzalex changed to monthly and Decadron to 20 mg starting 01/04/23. Revlimid continues at 10mg daily D1-21 every 28 days Lab results reviewed: CMP showing some decline in renal function. Likely related to increased dose of diuretics. Calcium level low at 8.3. Will hold Xgeva today. Hgb stable at 9.4 Slight increase in [place] FLC noted at 29.31 with ratio of 2.36. Otherwise myeloma labs stable Reviewed case with Dr. Garcia: Due to decline in patient's performance status and recent hospitalization for a fib with RVR and infection of chronic left foot wound recommending holding all treatment for this month. Patient will take last dose of Revlimid today and will receive no further treatment until patient is reevaluated by Dr. Garcia in one month. Order placed. Patient verbalized understanding. Also spoke to on the telephone who also verbalized understanding. Patient will continue to follow closely with cardiology. Patient aware of signs and symptoms that would warrant returning to ED. Continue Acyclovir prophylaxis Continue calcium/vitamin d tablet once daily Pain well controlled on current regimen - continue to follow with palliative care. RTC in one month with physician for chemo return MADISON Atkinson documented in this encounter Nursing Notes * Brittany Robledo CMA - 07/05/2023 10:55 AM EDT Patient identifed by name and birthdate Do you have any concerns about pain management for today's visit? No Living Will or Advance Directive for Health Care as noted on the problem list. [employer] [facility] is a way you can talk to your provider on line through e-mail. Would you like to sign up? I can activate it for you? ALREADY ACTIVE Filed Vitals: 07/05/23 1055 BP: 96/56 Pulse: 83 Resp: 16 Temp: 36.5 C (97.7 F) TempSrc: Tympanic SpO2: 94% Weight: 70.3 kg (155 lb) Patient was instructed to not get up on the exam table/exam chair until directed and assisted by their provider; patient is to remain seated in the chair/ wheelchair/ exam table/ exam chair for fall prevention and safety reasons. Patient is aware to have assistance to step down off exam table/exam chair with personnel. Patient voiced full comprehension of instructions. NOTE: Patient is really off balance; blood pressure is 96/56 sitting did not have patient stand as was informed that he was really off balance documented in this encounter Plan of Treatment Upcoming Encounters Date Type Specialty Care Team Description 07/12/2023 Office Visit Family Medicine Landen Macario, DO [address] [place] [address] 07/14/2023 Office Visit Palliative Medicine Nan Campos MD [address] [place] [address] [place] [id number] 07/20/2023 Scheduled Telephone Pharmacy [facility] Hem/Onc Tech [address] [facility] [place] [address] 07/28/2023 Office Visit Cardiology Cyril Johns PA-C [address] [place] [address] 08/02/2023 Laboratory [facility] [address] [place] [address] 08/02/2023 Office Visit Hematology Oncology Chito Garcia MD [address] [place] [address] 08/02/2023 Hem/Onc Treatment Hematology Oncology [place], Chair 7 Hem Onc Scenery [address] [place] [address] 08/16/2023 Pharmacy Pharmacy Pharmacist1, [facility] [address] [place] [address] 10/01/2023 Cardiac Studies Cardiology Fredy Figueroa [facility] [address] [place] [address] 01/17/2024 Office Visit Family Medicine Landen Macario DO [address] [place] [address] Health Maintenance Due Date Last Done Comments [...] Medical Devices Implanted Type Area Information Systems Specialist Device Identifier Shelf Expiration Date Model / Serial / Lot Lens Intraoc 24.0 - [id number] - [id number] Implanted:Qty: 1 on 08/16/2018 by Adan Colon MD at OR [facility] Right: Eye [employer] 11/17/2022 [id number] / [id number] / [id number] Lens Intraoc 24.0 - [id number] - [id number] Implanted:Qty: 1 on 08/23/2018 by Adan Colon MD at OR [facility] Left: Eye [employer] 06/17/2023 [id number] / [id number] / [id number] Screw [employer] [id number] - [id number] Implanted:Qty: 1 on 12/07/2019 by Amilcar Saavedra MD at OR [facility] Left: Foot [employer] [id number] / / documented as of this encounter Visit Diagnoses Diagnosis Multiple myeloma in remission (HCC)- Primary Multiple myeloma in remission Encounter for antineoplastic chemotherapy documented in this encounter Advance Directives Latest [...] and were consensually agreed upon. Care Teams Customs Compliance Analyst Relationship Specialty Start Date End Date Landne Macario, DO [address] [place] [address] PCP - General Family Medicine 02/09/22 documented as of this encounter
--- OUTSIDE RECORDS SUMMARY | 2023-08-26 18:13 | External Medical Summary | Summary of Care ---
Author Name Unknown Organization [facility] Address [address] [place] [address] Phone [phone] Care Team Providers Care Carton Stapler Name Role Phone AhsanLanden nava Primary Care Provider [phone] Encounter Details Date Type Department Care Team Description 07/05/2023 Result Scan Unspecified Department Jeremías Lane DO [address] [place] [address] <No scans attached> Allergies Active Allergy Reactions Severity Noted Date [...] Take 1 tablet daily, Reason: per Dr. Radha, Reported on 11/12/2022 Dexcom G6 SensorIndications:T ype [...] or Wheezing. 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 Metastatic cancer to bone 10/22/2021 Acute systolic congestive heart failure 10/08/2021 Multiple myeloma not having achieved rem ission 08/28/2021 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 09/08/2019 Gastroesophageal reflux disease without esophagitis 03/15/2019 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 11/25 Paroxysmal atrial [...] 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,rt bahai 07/05/2002 0 05/26/2018 Rosacea 07/28/2001 05/26/2018 LOC PRIM [id number] 07/28/2001 05/26/20 18 documented as of this [...] Description 07/12/2023 Office Visit Family Medicine Landen Macario DO [address] [place] [address] 07/14/2023 Office Visit Palliative Medicine Nan [facility] [address] [facility] [place] [phone] 07/20/2023 Scheduled Telephone Pharmacy Ivana [facility] Hem/Onc Tech [address] [place], [place] [phone] 07/28/2023 Office Visit Cardiology Cyril Johns PA-C [address] [place] [address] 08/02/2023 Laboratory Laboratory [place], Lab Scenery [address] [place] [address] 08/02/2023 Office Visit Hematology Oncology Chito Garcia MD [address] [place] [address] 08/02/2023 Hem/Onc Treatment Hematology Oncology [place], Chair 7 Hem Onc Scenery [address] [place] [address] 08/16/2023 Pharmacy Pharmacy Pharmacist, [facility] Sp [address] [place] [address] 10/01/2023 Cardiac Studies Cardiology [place], Pacer [facility] [address] [place] [address] 01/17/2024 Office Visit Family Medicine Landen Macario, DO [address] [place] [address] Health Maintenance Due Date Last Done Comments [...] COMPLETED IN PAST YEAR FOR COPD 06/14/2024 07/05/2023 GFR 07/05/2024 07/05/2023, 08/0 05/2023, 04/27/2023, Additional [...] this encounter Medical Devices Implanted Type Area Terrazzo Mechanic Helper Device Identifier Shelf Expiration Date Model / Serial / Lot Lens Intraoc 24.0 - [id number] - [id number] Implanted:Qty: 1 on 08/16/2018 by Adan Colon MD at OR [facility] Right: Eye BAUSCH [employer] LOMB 11/17/2022 [id number] / [id number] / [id number] Lens Intraoc 24.0 - [id number] - [id number] Implanted:Qty: 1 on 08/23/2018 by Adan Colon MD at OR [facility] Left: Eye BAUSCH & LOMB 06/17/2023 [id number] / [id number] / [id number] Screw [employer] 3.9phi11rn - [id number] Implanted:Qty: 1 on 12/07/2019 by Amilcar Saavedra MD at OR [facility] Left: Foot EXACTECH [id number] / / documented as of this encounter Procedures Procedure Name Priority Date/Time Associated Diagnosis Comments CARDIOLOGY SCANNED RESULT 07/05/2023 documented in this encounter Results * CARDIOLOGY SCANNED RESULT (07/05/2023) 07/05/2023 Jeremías TURCIOS documented in this encounter Advance Directives Latest [...] and were consensually agreed upon. Care Teams Carton Stapler Relationship Specialty Start Date End Date Landen Macario, DO [address] [facility], [place] [phone] PCP - General Family Medicine 02/09/22 documented as of this encounter
--- OUTSIDE RECORDS SUMMARY | 2023-08-26 18:13 | External Medical Summary | Summary of Care ---
Author Name Unknown Organization [facility] Address [address] [place] [address] Phone [phone] Care Team Providers Care Sound Technician Supervisor Name Role Phone AhsanLanden nava Primary Care Provider [phone] Encounter Details Date Type Department Care Team Description 07/05/2023 Result Scan Unspecified Department Jeremías Lane DO [address] [place] [address] <No scans attached> Allergies Active Allergy Reactions [...] or Wheezing. 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 Metastatic cancer to bone 10/22/2021 Acute systolic congestive heart failure 10/08/2021 Multiple myeloma not having achieved rem ission 08/28/2021 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 09/08/2019 Gastroesophageal reflux disease without esophagitis 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 11/25 Paroxysmal atrial [...] 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,rt worship 07/05/2002 0 05/26/2018 Rosacea 07/28/2001 05/26/2018 LOC PRIM [id number] 07/28/2001 05/26/20 18 documented as of this [...] Landen Macario DO [address] [place] [address] 07/14/2023 Office Visit Palliative Medicine Nan Campos MD [address] [facility], [place] [phone] 07/20/2023 Scheduled Telephone Pharmacy Ivana [facility] Hem/Onc Tech [address] [place], [place] [phone] 07/28/2023 Office Visit Cardiology Cyril Johns PA-C [address] [place] [address] 08/02/2023 Laboratory Laboratory [place], Lab Scenery [address] [place] [address] 08/02/2023 Office Visit Hematology Oncology Chito Garcia MD [address] [place] [address] 08/02/2023 Hem/Onc Treatment Hematology Oncology [place], Chair 7 Hem Onc Scenery [address] [place] [address] 08/16/2023 Pharmacy Pharmacy Pharmacist, [facility] Sp [address] [place] [address] 10/01/2023 Cardiac Studies Cardiology [place], Pacer [facility] [address] [place] [address] 01/17/2024 Office Visit Family Medicine Landen Macario, DO [address] [place] [address] Health Maintenance Due Date Last Done Comments [...] this encounter Medical Devices Implanted Type Area Resaw Machine Operator Device Identifier Shelf Expiration Date Model / Serial / Lot Lens Intraoc 24.0 - [id number] - [id number] Implanted:Qty: 1 on 08/16/2018 by Adan Colon MD at OR [facility] Right: Eye BAUSCH [employer] LOMB 11/17/2022 [id number] / [id number] / [id number] Lens Intraoc 24.0 - [id number] - [id number] Implanted:Qty: 1 on 08/23/2018 by Adan Colon MD at OR [facility] Left: Eye BAUSCH & LOMB 06/17/2023 [id number] / [id number] / [id number] Screw [employer] 3.9ztj93oa - [id number] Implanted:Qty: 1 on 12/07/2019 by Amilcar Saavedra MD at OR [facility] Left: Foot EXACTECH [id number] / / documented as of this encounter [...] and were consensually agreed upon. Care Teams Sound Technician Supervisor Relationship Specialty Start Date End Date Landen Macario, DO [address] [facility], [place] [phone] PCP - General Family Medicine 02/09/22 documented as of this encounter
--- OUTSIDE RECORDS SUMMARY | 2023-08-26 18:13 | External Medical Summary ---
Author Name Unknown Address Unknown Organization K01:[facility] - [address] [place] [address] Laboratory Report Ordering Provider Test Date Status ANIBAL FIERRO 07/05/2023 10:42:52 Final Observation Date Value Abnormality Reference (Units ) Status IgG 07/05/2023 10:42:52 225 Below low normal 700 -1600 (mg/dL) Final IgA 07/05/2023 10:42:52 113 70-400 (mg /dL) Final IgM 07/05/2023 10:42:52 24 Below low normal 40- 230 (mg/dL) Final Performing Location [facility] - [address] [place] [address]
--- OUTSIDE RECORDS SUMMARY | 2023-08-26 18:13 | External Medical Summary | Summary of Care ---
Author Name Unknown Organization [facility] [address] [facility] [address] Phone [phone] Care Team Providers Care Bar Tender Name Role Phone AhsanLanden nava Primary Care Provider [phone] Reason for Visit * Reason Comments Nurse Documentation Hold treatment Encounter Details Date Type Department Care Team Description 07/05/2023 Hem/Onc Treatment Hematology/Oncology Treatment, [place] [address] [place] [address] [place], Chair 6 Hem Onc [facility] [address] [facility] [place] [address] Arrived Allergies Active Allergy Reactions Severity [...] or Wheezing. 18 g 3 04/03/2022 Active U25-Erkaoi 1 MG Oral Tablet Chewable (Methylcobalamin) Take [...] hemoglobin A1c goal of less than 8.0% ([facility]) Inject 40 Units under the skin every night at bedtime. 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 Metastatic cancer to bone 10/22/2021 Acute systolic congestive heart failure 10/08/2021 Multiple myeloma not having achieved rem ission 08/28/2021 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 09/08/2019 Gastroesophageal reflux disease without esophagitis 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 Hold Xgeva also due to hypocalcemia. Pt rescheduled to see Dr. Garcia in 1 month. documented in this encounter Plan of Treatment Upcoming Encounters Date Type Specialty Care Team Description 07/12/2023 Office Visit Family Medicine Landen Macario, DO [address] [place] [address] 07/14/2023 Office Visit Palliative Medicine Nna Campos MD [address] [place] [phone] 07/20/2023 Scheduled Telephone Pharmacy Iv[facility] Hem/Onc Tech [address] [place] [address] 07/28/2023 Office Visit Cardiology Cyril Johns PA-C [address] [place] [address] 08/02/2023 Laboratory Laboratory [place], Lab Scenery [address] [place] [address] 08/02/2023 Office Visit Hematology Oncology Chito Garcia MD [address] [place] [address] 08/02/2023 Hem/Onc Treatment Hematology Oncology [place], Chair 7 Hem Onc Scen[address] [place] [address] 08/16/2023 Pharmacy Pharmacy Pharmac[address] [place] [address] Sp [address] [place] [address] 10/01/2023 Cardiac Studies Cardiology [facility], Pacer [facility] 132 [facility] [place] [address] 01/17/2024 Office Visit Family Medicine Landen Macario, DO [address] [place] [address] Health Maintenance Due Date Last Done Comments [...] this encounter Medical Devices Implanted Type Area Displayer Device Identifier Shelf Expiration Date Model / Serial / Lot Lens Intraoc 24.0 - [id number] - [id number] Implanted:Qty: 1 on 08/16/2018 by Adan Colon MD at OR [facility] Right: Eye BAUSCH & LOMB 11/17/2022 [id number] / [id number] / [id number] Lens Intraoc 24.0 - [id number] - [id number] Implanted:Qty: 1 on 08/23/2018 by Adan Colon MD at OR [facility] Left: Eye BAUSCH & LOMB 06/17/2023 [id number] / [id number] / [id number] Screw [employer] 3.5bml84hu - [id number] Implanted:Qty: 1 on 12/07/2019 by Amilcar Saavedra MD at OR [facility] Left: Foot EXACTECH [id number] / / documented as of this encounter [...] and were consensually agreed upon. Care Teams Bar Tender Relationship Specialty Start Date End Date Landen Macario, DO 200 [place] [address] PCP - General Family Medicine 02/09/22 documented as of this encounter
--- OUTSIDE RECORDS SUMMARY | 2023-08-26 18:14 | External Medical Summary | Summary of Care ---
Author Name Unknown Organization [facility] Address [address] [place] [address] Phone [phone] Care Team Providers Care [facility]inary [facility] Attendant Name Role Phone AhsanLanden nava Primary Care Provider [phone] Reason for Visit * Reason Onset Date Comments Hospital Follow-Up 07/01/2023 Encounter Details Date Type Department Care Team Description 07/01/2023 Telephone Family Practice Varinder Ramirez [place] [address] [facility] [place] [address] Thuy Castellon, NATALIE Hospital Follow-Up Allergies Active Allergy Reactions Severity Noted Date Comments Tizanidine 06/27/2021 documented as of this encounter (statuses as of 07/01/2023) Medications Medication Sig Dispensed Refills Start Date [...] or Wheezing. 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 Metastatic cancer to bone 10/22/2021 Acute systolic congestive heart failure 10/08/2021 Multiple myeloma not having achieved rem ission 08/28/2021 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 09/08/2019 Gastroesophageal reflux disease without esophagitis 03/15/2019 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 Transitions of Care Note Reason for Referral:Recent Admission Phone visit for follow up: PARVIN Admitted to: [facility], Date: 06/25/23 Discharged to: Home, Date: 06/30/23 Diagnosis driving hospitalization: Atrial fibrillation with rapid ventricular response, chronic heart failure, left foot wound infection, acute kidney injury, hypomagnesemia. Source/Contact: Patient SUBJECTIVE Consent: Verbal consent for review of hospital discharge: Yes REVIEW OF SYSTEMS Patient/Other Reports: Current patient/caregiver problems or concerns: Patient feels she is doing ok, his dressing to his left foot wound is dry and intact, they change it at home either every day or every other day, he reports their is no drainage on it. Patient had follow-up appointment scheduled with Dr. Soto on 07/05, however he would like to see Dr. Macario and his next available appointment that works with patient's schedule is 07/12, appointment made. Per patient his BP this am was 121/100. CV: Denies problems Pulmonary: Denies problems Chills/Sweats/Fever:Denies chills/sweats Denies fever Appetite:Denies problems such as nausea, vomiting, burning, decreased appetite Current diet: Diabetic and cardiac Bowel: denies problems Bladder: denies problems Wound (If applicable): Site-left foot, Drainage-none, and Odor-non Pain:Denies Sleep:Denies problems FUNCTIONAL STATUS: ADL'S: Needs Assistance With:N/A as pt is independent IADL'S: Needs Assistance With:N/A as pt is independent Cognitive and Mental Health: denies problems, alert and oriented x 3, and able to communicate, understand instructions, process information. MEDICATION RECONCILIATION Medications: Discharge med list reviewed with patient or caregiver New medication(s) filled since hospitalization- Changed medication(s) since hospitalization Metoprolol succinate 75mg PO daily and 50mg PO in the evening. Reports all medications taken as prescribed. Denies side effects OBJECTIVE N/a ASSESSMENT Medication Risk Assessment: Hgb less than 10 Did patient fail outpatient treatment? No Discharge instructions available for review? Yes PLAN Symptom Monitoring Interventions:Member/caregiver education - signs and symptoms to contact PrimaryCare (DO NOT DELETE-[place] symptoms patient is to report to PCP) 1. Chest pain/shortness of breath/difficulty breathing 2. Fever/chills/nausea/vomiting 3. Swelling of legs/hands/feet, pain/redness/drainage/swelling from/around wound, fall, confusion, increased weakness/fatigue. Speeder TenderSenior Regulatory Affairs Specialist of Care interventions/Action Plan: Medication reconciliation, Develop/confirm action plan for acute exacerbation, and 5 - 7 day follow-up with PCP in place - Date: 07/02/23 with wound center and 07/12/23 with PCP, 07/05 with heme/onc, 07/28 with cardiology. Educated on role of PARVIN completed with patient/caregiver. Educated patient/caregiver on patient right to have input on PARVIN plan of care. Verification of Home Health/DME if indicated: NO n/a Identified Care Gaps: No Care Gaps closed this call: Appointment made or confirmed, Medication monitoring, Plan of care optimization, Post discharge appointment, and Transition of Care follow-up communication Re-evaluation of Plan of Care and progress towards goals achievement: Patient education this visit: Verbal, Educated patient to continue to monitor for signs/symptoms as discussed above and to call PCP if they occur, educated patient to keep wound on left foot clean and dry, keep follow-up appointments, take medications as prescribed, monitor BP and heart rate. Patient verbalized understanding ofabove education. Plan to follow-up as previously scheduled, instructed to call Primary Care Provider with change in symptoms or as needed before next follow-up, discharge needs met, verbalizes understanding and agrees with plan. Thuy Castellon RN documented in this encounter Plan of Treatment Upcoming Encounters Date Type Specialty Care Team Description 07/05/2023 Laboratory Laboratory [place], Lab Scenery [address] [facility] [facility] [address] 07/05/2023 Office Visit Hematology Oncology Grace Veronica CRNP [address] [facility] [place] [address] 07/05/2023 Hem/Onc Treatment Hematology Oncology [place], Chair 6 Hem Onc Scenery [address] [place] [address] 07/12/2023 Office Visit Family Medicine Landen Macario, DO [address] [place] [address] 07/14/2023 Office Visit Palliative Medicine Nan Campos MD [address] [facility] [place] [address] 07/20/2023 Scheduled Telephone Pharmacy [facility] Hem/Onc Tech [address] [place], [place] [phone] 07/28/2023 Office Visit Cardiology Cyril Johns PA-C [address] [place] [address] 08/16/2023 Pharmacy Pharmacy Pharmacist, [facility] Sp [address] [place] [address] 10/01/2023 Cardiac Studies Cardiology Fredy Figueroa [facility] [address] [place] [address] 01/17/2024 Office Visit Family Medicine Landen Macario, DO [address] [place] [address] Health Maintenance Due Date Last Done Comments [...] 07/0 02/2022, 07/08/2021, Additional history exists GFR 05/25/2024 05/25/2023, 04/17, 03/30/2023, Additional history exists O2 ASSESSMENT COMPLETED IN PAST YEAR FOR COPD 06/14/2024 06/14/2023 DTaP,Tdap,and Td Vaccines (2 - Td or [...] this encounter Medical Devices Implanted Type Area Shot Hole Driller Device Identifier Shelf Expiration Date Model / Serial / Lot Lens Intraoc 24.0 - [id number] - [id number] Implanted:Qty: 1 on 08/16/2018 by Adan Colon MD at OR [facility] Right: Eye BAUSCH [employer] LOMB 11/17/2022 [id number] / [id number] / [id number] Lens Intraoc 24.0 - [id number] - [id number] Implanted:Qty: 1 on 08/23/2018 by Adan Colon MD at OR [facility] Left: Eye BAUSCH & LOMB 06/17/2023 [id number] / [id number] / [id number] Screw [employer] 3.5oby93wv - [id number] Implanted:Qty: 1 on 12/07/2019 by Amilcar Saavedra MD at OR [facility] Left: Foot EXACTECH [id number] / / documented as of this encounter [...] and were consensually agreed upon. Care Teams Veterinary Hospital Attendant Relationship Specialty Start Date End Date Landen Macario, DO 200 [place] [address] PCP - General Family Medicine 02/09/22 documented as of this encounter
--- OUTSIDE RECORDS SUMMARY | 2023-08-26 18:14 | External Medical Summary ---
Author Name Unknown Address Unknown Organization K01:LABORATORY [facility] - [address] [facility] [address] Laboratory Report Ordering Provider Test Date Status ANIBAL FIERRO 07/05/2023 10:42:52 Final Observation Date Value Abnormality Reference (Units) Status Protein 10:42:52 5.7 Below low normal 6.0-8.3 (g/dL) Final Albumin/Protein.tota l [Pure mass fraction] in Serum or Plasma by Electrophoresis 10:42:52 2.99 Below low normal 3.30-4.40 (g/dL) Final Alpha 1 globulin/Protein.tot al [Pure mass fraction] in Serum or Plasma by Electrophoresis 10:42:52 0.32 Above high normal 0.10-0.30 (g/dL) Final Alpha 2 globulin/Protein.tot al [Pure mass fraction] in Serum or Plasma by Electrophoresis 10:42:52 1.13 Above high normal 0.60-1.00 (g/dL) Final Beta globulin/Protein.tot al [Pure mass fraction] in Serum or Plasma by Electrophoresis 10:42:52 0.93 0.80-1.30 (g/dL) Final Gamma globulin/Protein.tot al [Pure mass fraction] in Serum or Plasma by Electrophoresis 10:42:52 0.33 Below low normal 0.70-1.70 (g/dL) Final Protein Fractions [Interpretation] in Serum or Plasma by Electrophoresis Narrative 10:42:52 No paraprotein detected. Decreased gamma fraction. Urine immunofixation recommended in follow up, if clinically indicated. See serum immunofixation results. Final Performing Location LABORATORY [facility] - [address] [facility] [address]
--- OUTSIDE RECORDS SUMMARY | 2023-08-26 18:14 | External Medical Summary ---
Author Name Unknown Address Unknown Organization K09:[facility] [place] [address] Laboratory Report Ordering Provider Test Date Status ANIBAL FIERRO 07/05/2023 10:42:52 Final Observation Date Value Abnormality Reference (Units ) Status Nucleated erythrocytes/100 leukocytes [Ratio] in Blood by Automated count 07/05/2023 10:42:52 Final Elliptocytes [Presence] in Blood by Light microscopy 07/05/2023 10:42:52 Moderate Abnormal None Seen Final Performing Location [facility] [place] [address]
--- OUTSIDE RECORDS SUMMARY | 2023-08-26 18:14 | External Medical Summary ---
Author Name Unknown Address Unknown Organization K09:[facility] [address] [place] [address] Laboratory Report Ordering Provider Test Date Status ANIBAL FIERRO 07/05/2023 10:42:52 Final Observation Date Value Abnormality Reference (Units ) Status BUN 07/05/2023 10:42:52 24 Above high normal 6-20 (mg/dL) Final Creatinine 07/05/2023 10:42:52 1.4 Above high normal 0.6-1.2 (mg/dL) Final Glomerular filtration rate/1.73 sq M.predicted [Volume Rate/Area] in Serum, Plasma or Blood by Creatinine-based formula (CKD-EPI) 07/05/2023 10:42:52 50 Below low normal >=60 (mL/min) Final eGFR is calculated based on the CKD-EPI 2020 equation SODIUM 07/05/2023 10:42:52 137 135-146 (m mol/L) Final Potassium 07/05/2023 10:42:52 4.3 3.5-5.1 (m mol/L) Final Cl 07/05/2023 10:42:52 104 98-107 (mm ol/L) Final CO2 07/05/2023 10:42:52 16 Below low normal 22- 32 (mmol/L) Final Anion gap 07/05/2023 10:42:52 17 Above high normal 7- 15 (mmol/L) Final Glucose 07/05/2023 10:42:52 281 Above high normal 70 -120 (mg/dL) Final Albumin 07/05/2023 10:42:52 3.7 Below low normal 3.8 -5.0 (g/dL) Final AST (Aspartate aminotransferase) 07/05/2023 10:42:52 56 Above high normal 10-50 (U/L) Final Alk Phos 07/05/2023 10:42:52 73 35-130 (U/ L) Final Bilirubin, Total 07/05/2023 10:42:52 0.8 <=1 .2 (mg/dL) Final Calcium 07/05/2023 10:42:52 8.3 Below low normal 8.4 -10.2 (mg/dL) Final Protein 07/05/2023 10:42:52 6.4 6.0-8.3 (g /dL) Final ALT (Alanine aminotransferase) 07/05/2023 10:42:52 68 Above high normal 10-50 (U/L) Final Performing Location [facility] [address] [place] [address]
--- OUTSIDE RECORDS SUMMARY | 2023-08-26 18:14 | External Medical Summary ---
Author Name Unknown Address Unknown Organization K01:[facility] - [facility] [place] [address] Laboratory Report Ordering Provider Test Date Status ANIBAL FIERRO 07/05/2023 10:42:52 Final Observation Date Value Abnormality Reference (Units ) Status [place] light chains, Free, Serum 07/05/2023 10:42:52 29.31 Above high normal 3.30-19.40 (mg/L) Final Lambda light chains, free, Serum 07/05/2023 10:42:52 12.40 5.71-26.30 (mg/L) Final KAPPA LAMBDA FLC RATIO 07/05/2023 10:42:52 2.36 Above high normal 0.26-1.65 Final Performing Location [facility] - [facility] [place] [address]
--- OUTSIDE RECORDS SUMMARY | 2023-08-26 18:14 | External Medical Summary | Summary of Care ---
Author Name Unknown Organization [facility] Address [address] [facility] [address] Phone [phone] Care Team Providers Care Explosives Worker Name Role Phone AhsanLanden nava Primary Care Provider [phone] Encounter Details Date Type Department Care Team Description 06/25/2023 Telephone Cardiology, [facility] [address] [place] [address] Mattie Franco CRNP [address] [place] [address] Allergies Active Allergy Reactions Severity Noted Date Comments Tizanidine 06/27/2021 documented as of this encounter (statuses as of 06/25/2023) Medications Medication Sig Dispensed Refills Start Date [...] or Wheezing. 18 g 3 04/03/2022 Active D27-Xwzejs 1 MG Oral Tablet Chewable (Methylcobalamin) Take [...] hemoglobin A1c goal of less than 8.0% ([facility]) Inject 15 Units under the skin in [...] 1 Each 3 03/04/2023 Active Dexcom G7 Roadway Designer Device Use to check blood sugar 1 [...] as of this encounter (statuses as of 06/25/2023) Active Problems Problem Noted Date COPD, group A, by GOLD 2017 classificati on 06/14/2023 ILD (interstitial lung disease) 06/14/20 23 Chronic systolic (congestive) heart fail ure 06/25/2022 Coronary artery disease invo lving [place] coronary artery of [place] heart without angina pectoris 06/25/2022 Presence of cardiac pacemaker 03/24/2022 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 Metastatic cancer to bone 10/22/2021 Acute systolic congestive heart failure 10/08/2021 Multiple myeloma not having achieved rem ission 08/28/2021 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 09/08/2019 Gastroesophageal reflux disease without esophagitis 03/15/2019 prison (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 of insulin 11/25 Paroxysmal atrial [...] as of this encounter (statuses as of 06/25/2023) Resolved Problems Problem Noted Date Resolved Date [...] 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,rt restorationist 07/05/2002 0 05/26/2018 Rosacea 07/28/2001 05/26/2018 LOC PRIM [id number] 07/28/2001 05/26/20 18 documented as of this encounter (statuses as of 06/25/2023) Immunizations Name Administration Dates Next Due COVID-19 [...] encounter Miscellaneous Notes * Telephone Encounter - Landry Michelle RN - 06/25/2023 10:58 AM EDT Patient phoned the clinic and stated he was having difficulty breathing. He stated he was very short of breath and is getting worse. He denies chest pain but has palpitations. He stated he just returned from a cruise ship and when he went to get off the cruise ship he had to be taken off by wheelchair due to being short of breath. I advised him to to call 911 and go to the ER immediately. He refused EMS but is going by private auto. ER was notified and copy of records faxed. documented in this encounter Plan of Treatment Upcoming Encounters Date Type Specialty Care Team Description 06/29/2023 Laboratory Laboratory [place], Lab Scenery 200 [facility] [place] [address] 06/29/2023 Office Visit Hematology Oncology Chito Garcia MD [address] [place] [address] 06/29/2023 Hem/Onc Treatment Hematology Oncology [place], Chair 8 Hem Onc Scenery 200 [facility] [place] [address] 07/14/2023 Office Visit Palliative Medicine Nan Campos MD [address] [place] [address] 07/20/2023 Scheduled Telephone Pharmacy [place] [facility] Hem/Onc Tech [address] [place] [address] 07/28/2023 Office Visit Cardiology Cyril Johns PA-C [address] [place] [address] 08/16/2023 Pharmacy Pharmacy Pharmacist, [facility] 200 [facility] [place] [address] 10/01/2023 Cardiac Studies Cardiology Fredy Figueroa [facility] [address] [place] [address] 01/17/2024 Office Visit Family Medicine Landen Macario, DO 200 [facility] [place] [address] Health Maintenance Due Date Last Done Comments [...] this encounter Medical Devices Implanted Type Area Supervisor Stone Device Identifier Shelf Expiration Date Model / Serial / Lot Lens Intraoc 24.0 - [id number] - [id number] Implanted:Qty: 1 on 08/16/2018 by Adan Colon MD at OR [facility] Right: Eye BAUSCH & LOMB 11/17/2022 [id number] / [id number] / [id number] Lens Intraoc 24.0 - [id number] - [id number] Implanted:Qty: 1 on 08/23/2018 by Adan Colon MD at OR [facility] Left: Eye BAUSCH & LOMB 06/17/2023 [id number] / [id number] / [id number] Screw [employer] 3.2apn87ml - [id number] Implanted:Qty: 1 on 12/07/2019 by Amilcar Saavedra MD at OR [facility] Left: Foot EXACTECH [id number] / / documented as of this encounter [...] and were consensually agreed upon. Care Teams Explosives Worker Relationship Specialty Start Date End Date Landen Macario, DO 200 [facility] [place] [address] PCP - General Family Medicine 02/09/22 documented as of this encounter
--- OUTSIDE RECORDS SUMMARY | 2023-08-26 18:14 | External Medical Summary | Summary of Care ---
Author Name Unknown Organization [facility] Address [address] [facility] [address] Phone [phone] Care Team Providers Care Radiosonde Specialist Name Role Phone Landen Macario Primary Care Provider [phone] Reason for Visit * Reason Onset Date Comments Appointment Canceled 06/29/2023 Encounter Details Date Type Department Care Team Description 06/29/2023 Telephone Hematology/Oncology [place] 200 [facility] [place] [address] Chito aGrcia MD 200 [place] [address] Appointment Canceled Allergies Active Allergy Reactions Severity Noted Date Comments Tizanidine 06/27/2021 documented as of this encounter (statuses as of 06/29/2023) Medications Medication Sig Dispensed Refills Start Date [...] or Wheezing. 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 Metastatic cancer to bone 10/22/2021 Acute systolic congestive heart failure 10/08/2021 Multiple myeloma not having achieved rem ission 08/28/2021 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 09/08/2019 Gastroesophageal reflux disease without esophagitis 03/15/2019 director long 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 care (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 of insulin 11/25 Paroxysmal atrial [...] as of this encounter (statuses as of 06/29/2023) Resolved Problems Problem Noted Date Resolved Date [...] 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,rt taoism 07/05/2002 0 05/26/2018 Rosacea 07/28/2001 05/26/2018 LOC PRIM [id number] 07/28/2001 05/26/20 18 documented as of this encounter (statuses as of 06/29/2023) Immunizations Name Administration Dates Next Due COVID-19 [...] encounter Miscellaneous Notes * Telephone Encounter - JENNIE Rowland - 06/29/2023 9:10 AM EDT Nursing/-patients canceled appts for today due to patient is admitted at [facility] for heart issues. She rescheduled appts to 07/05/23. documented in this encounter Plan of Treatment Upcoming Encounters Date Type Specialty Care Team Description 07/05/2023 Laboratory Laboratory [place], Lab Scenery [address] [place] [address] 07/05/2023 Office Visit Hematology Oncology Grace Veronica CRNP 400 [facility] [place] [id number] 07/05/2023 Hem/Onc Treatment Hematology Oncology [place], Chair 6 Hem Onc Scenery [address] [place] [address] 07/14/2023 Office Visit Palliative Medicine [facility] [address] [facility] [place] [address] 07/20/2023 [facility] [address] [place], [place] [id number] 07/28/2023 Office Visit Cardiology Cyril Johns PA-C [address] [place] [address] 08/16/2023 Pharmacy Pharmacy Pharmacist, [facility] [address] [place] [address] 10/01/2023 Cardiac Studies Cardiology Fredy Figueroa [facility] [address] [place] [address] 01/17/2024 Office Visit Family Medicine Landen Macario DO [address] [place] [address] Health Maintenance Due Date Last Done Comments [...] this encounter Medical Devices Implanted Type Area Nut Steamer Device Identifier Shelf Expiration Date Model / Serial / Lot Lens Intraoc 24.0 - [id number] - [id number] Implanted:Qty: 1 on 08/16/2018 by Adan Colon MD at OR [facility] Right: Eye BAUSCH & LOMB 11/17/2022 [id number] / [id number] / [id number] Lens Intraoc 24.0 - [id number] - [id number] Implanted:Qty: 1 on 08/23/2018 by Adan Colon MD at OR [facility] Left: Eye BAUSCH & LOMB 06/17/2023 [id number] / [id number] / [id number] Screw [employer] 3.0rmj36vr - [id number] Implanted:Qty: 1 on 12/07/2019 by Amilcar Saavedra MD at OR [facility] Left: Foot EXACTECH [id number] / / documented as of this encounter [...] and were consensually agreed upon. Care Teams Radiosonde Specialist Relationship Specialty Start Date End Date Landen Macario, DO [address] [facility] [address] PCP - General Family Medicine 02/09/22 documented as of this encounter
--- OUTSIDE RECORDS SUMMARY | 2023-08-26 18:14 | External Medical Summary ---
Author Name Unknown Address Unknown Organization K09:[facility] [address] [place] [address] Laboratory Report Ordering Provider Test Date Status ANIBAL FIERRO 07/05/2023 10:42:52 Final Observation Date Value Abnormality Reference (Units ) Status SYNC LEUKOCYTES IN BLOOD BY AUTOMATED COUNT 07/05/2023 10:42:52 4.17 4.00-10.80 (K/uL) Final Segs 07/05/2023 10:42:52 60.0 40.0-75.0 (%) Final Lymphs % 07/05/2023 10:42:52 16.8 Below low normal 18.0-42.0 (%) Final Monos 07/05/2023 10:42:52 18.9 Above high normal 1.0-11.0 (%) Final Eosinophils 07/05/2023 10:42:52 4.1 0.0-6.0 (%) Final Basos 07/05/2023 10:42:52 0.2 0.0-2.0 (%) Final Absolute Segs 07/05/2023 10:42:52 2.50 1.80-7.70 (K/uL) Final Lymphs, absolute 07/05/2023 10:42:52 0.70 Below low normal 1.00-4.80 (K/ul) Final Monos, Abs 07/05/2023 10:42:52 0.79 0.00-1.10 (K/uL) Final Eos, Abs 07/05/2023 10:42:52 0.17 0.00-0.70 (K/uL) Final Basos, Abs 07/05/2023 10:42:52 0.01 0.00-0.20 (K/uL) Final Performing Location [facility] [address] [place] [address]
--- OUTSIDE RECORDS SUMMARY | 2023-08-26 18:14 | External Medical Summary | Summary of Care ---
Author Name Unknown Organization [facility] Address [address] [facility] [address] Phone [phone] Care Team Providers Care Pattern Chain Builder Name Role Phone AhsanLanden nava Primary Care Provider [phone] Encounter Details Date Type Department Care Team Description 06/25/2023 Telephone Cardiology, [facility] [address] [place] [address] Mattie [...] or Wheezing. 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 Metastatic cancer to bone 10/22/2021 Acute systolic congestive heart failure 10/08/2021 Multiple myeloma not having achieved rem ission 08/28/2021 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 09/08/2019 Gastroesophageal reflux disease without esophagitis 03/15/2019 residential (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 of insulin 11/25 Paroxysmal atrial [...] update of inactive term lentigo maligna,rt religion 07/05/2002 0 05/26/2018 Rosacea 07/28/2001 05/26/2018 LOC PRIM [id number] 07/28/2001 05/26/20 18 documented as of this encounter (statuses as of 06/25/2023) Immunizations Name Administration Dates Next Due COVID-19 mRNA, LNP-s, No Pre serve, 2-Dose Series (Moderna) 08/27/2021,01/04/2021,12/02/2020 COVID-19, mRNA, LNP-s, PF, B ooster, 100mcg/0.5mg (Moderna) 05/07/2022 Covid-19, Mrna, Lnp-s, Pf, B ivalent, 30 Mcg, IM, 12 yrs and above (Pfizer) 09/04/2022 H1N1 2009 Influenza, IM 09/22/2009 Hepatitis B, 20+ yrs 11/18/1993,10/18/1993 PPD 05/14/2022,05/05/2022 Pneumococcal Conjugate Vacc, 13 Valent (Prevnar) 03/01/2017 Pneumococcal Polysaccharide PPV23 (Pneumovax) 09/06/2007 Seasonal Influenza Virus Vac cine, Unspecified Formulation 07/21/2021,07/03/2020,08/04/2019,08/22,07/30/2012,08/18/2011,09/04/2009 ,10/15/2008,09/01/2008,09/06/2007,07/18,08/25/2005,09/24/2003 Seasonal Influenza, PF, 6 mo ns & Above, IM , (Flulaval) 07/03/2020,08/04/2019 Seasonal Influenza, Quadriva lent Hd (Fluzone Hd) 07/07/2022,07/21/2021,07/09/2021(Defer red: Patient Refused) Seasonal Influenza, Split, I IV3, With Preserve, Inj 08/22/2013,07/30/2012,08/18/2011,09/04,09/01/2008,09/06/2007,07/27/2006 ,08/25/2005,09/24/2003 TDAP (age 10 and older)(Boostrix) 04/02/2022 Varicella [...] encounter Miscellaneous Notes * Telephone Encounter - [place] Daily - 06/25/2023 12:25 PM EDT Covering for Mattie Joan, ENGINE SETTER Agree with ED recommendation. * Telephone Encounter - Landry Michelle RN [...] 06/29/2023 Laboratory Laboratory [place], Lab Scenery [address] [facility] [address] 06/29/2023 Office Visit Hematology Oncology Chito Garcia MD [address] [place] [address] 06/29/2023 Hem/Onc Treatment Hematology Oncology [place], Chair 8 Hem Onc Scenery [address] [place] [address] 07/14/2023 Office Visit Palliative Medicine Nan Campos MD 400 [facility] [place] [address] 07/20/2023 Scheduled Telephone Pharmacy [place] Hem/Onc Tech [address] [facility] [place] [address] 07/28/2023 Office Visit Cardiology Cyril Johns PA-C [address] [facility] [place] [address] 08/16/2023 Pharmacy Pharmacy Pharmacist1, [facility] 200 [facility] [place] [address] 10/01/2023 Cardiac Studies Cardiology [place], Pacer [facility] 132 [facility] [place] [address] 01/17/2024 Office Visit Family Medicine Landen Macario, DO [address] [place] [address] Health Maintenance Due Date Last Done Comments [...] this encounter Medical Devices Implanted Type Area Lithographic Photographer Apprentice Device Identifier Shelf Expiration Date Model / Serial / Lot Lens Intraoc 24.0 - [id number] - [id number] Implanted:Qty: 1 on 08/16/2018 by Adan Colon MD at OR [facility] Right: Eye BAUSCH & LOMB 11/17/2022 [id number] / [id number] / [id number] Lens Intraoc 24.0 - [id number] - [id number] Implanted:Qty: 1 on 08/23/2018 by Adan Colon MD at OR [facility] Left: Eye BAUSCH & LOMB 06/17/2023 [id number] / [id number] / [id number] Screw [employer] 3.2enb44rt - [id number] Implanted:Qty: 1 on 12/07/2019 by Amilcar Saavedra MD at OR [facility] Left: Foot EXACTECH [id number] / / documented as of this encounter [...] and were consensually agreed upon. Care Teams Pattern Chain Builder Relationship Specialty Start Date End Date Landen Macario, DO 200 [place] [address] PCP - General Family Medicine 02/09/22 documented as of this encounter
--- OUTSIDE RECORDS SUMMARY | 2023-08-26 18:14 | External Medical Summary ---
Author Name Unknown Address Unknown Organization : Laboratory Report Ordering Provider Test Date Status FIERROEBENEZERANIBAL 07/05/2023 10:42:52 Final Observation Date Value Abnormality Reference (Units ) Status Beta-2 Microglobulin 07/05/2023 10:42:52 3.04 Above high normal <=2.51 (mg/L) Final This test was performed usin g the Leal
Immunoturbidimetric method. Values obtained
from different assay methods cannot be used
interchangeably. Beta-2 Microglobulin levels,
regardless of value, should not be interpreted
as absolute evidence of the presence or absence of
disease.

Test Performed at:
[facility]
[address]
[place] [address]
Sloan Sotelo M.D., Ph.D.,Director of Laboratories Performing Location
--- OUTSIDE RECORDS SUMMARY | 2023-08-26 18:14 | External Medical Summary | Summary of Care ---
Author Name Unknown Organization [facility] Address [address] [facility] [address] Phone [phone] Care Team Providers Care Specialist Field Engineer Name Role Phone AhsanLanden nava Primary Care Provider [phone] Encounter Details Date Type Department Care Team Description 06/27/2023 Orders Only Hematology/Oncology [place] Charleen Cárdenas 200 [facility] [place] [address] Chito Garcia MD [address] [facility] [place] [address] Allergies Active Allergy Reactions Severity Noted Date Comments Tizanidine 06/27/2021 documented as of this encounter (statuses as of 06/27/2023) Medications Medication Sig Dispensed Refills Start Date [...] or Wheezing. 18 g 3 04/03/2022 Active U48-Gkeltf 1 MG Oral Tablet Chewable (Methylcobalamin) Take [...] 1 Each 3 03/04/2023 Active Dexcom G7 Back Padder Device Use to check blood sugar 1 [...] as of this encounter (statuses as of 06/27/2023) Active Problems Problem Noted Date COPD, group A, by GOLD 2017 classificati on 06/14/2023 ILD (interstitial lung disease) 06/14/20 23 Chronic systolic (congestive) heart fail ure 06/25/2022 Coronary artery disease invo lving [place] coronary artery of [place] heart without angina pectoris 06/25/2022 Presence of [...] as of this encounter (statuses as of 06/27/2023) Resolved Problems Problem Noted Date Resolved Date [...] 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,rt nondenominational 07/05/2002 0 05/26/2018 Rosacea 07/28/2001 05/26/2018 LOC PRIM [id number] 07/28/2001 05/26/20 18 documented as of this encounter (statuses as of 06/27/2023) Immunizations Name Administration Dates Next Due COVID-19 [...] 06/29/2023 Laboratory Laboratory [place], Lab Scenery [address] [place] [address] 06/29/2023 Office Visit Hematology Oncology Chito Garcia MD [address] [place] [address] 06/29/2023 Hem/Onc Treatment Hematology Oncology [place], Chair [address] [facility] 200 [facility] [place] [address] 07/14/2023 Office Visit Palliative Medicine Nan Campos MD 400 [place] [address] 07/20/2023 Scheduled Telephone Pharmacy [facility] Hem/Onc Tech [address] [place] [address] 07/28/2023 Office Visit Cardiology Cyril Johns PA-C [address] [facility] [address] 08/16/2023 Pharmacy Pharmacy Pharmacist, [facility] 200 [facility] [place] [address] 10/01/2023 Cardiac Studies Cardiology Fredy Figueroa [facility] [address] [place] [address] 01/17/2024 Office Visit Family Medicine Landen Macario DO 200 [facility] [place] [address] Health Maintenance Due Date Last Done Comments [...] this encounter Medical Devices Implanted Type Area Salvager Device Identifier Shelf Expiration Date Model / Serial / Lot Lens Intraoc 24.0 - [id number] - [id number] Implanted:Qty: 1 on 08/16/2018 by Adan Colon MD at OR [facility] Right: Eye BAUSCH & LOMB 11/17/2022 [id number] / [id number] / [id number] Lens Intraoc 24.0 - [id number] - [id number] Implanted:Qty: 1 on 08/23/2018 by Adan Colon MD at OR [facility] Left: Eye BAUSCH & LOMB 06/17/2023 [id number] / [id number] / [id number] Screw Hd[employer]td 3.7gou63oo - [id number] Implanted:Qty: 1 on 12/07/2019 by Amilcar Saavedra MD at OR [facility] Left: Foot EXACTECH [id number] / / documented as of this encounter [...] and were consensually agreed upon. Care Teams Specialist Field Engineer Relationship Specialty Start Date End Date Landen Macario, DO 200 [facility] [place] [address] PCP - General Family Medicine 02/09/22 documented as of this encounter
--- OUTSIDE RECORDS SUMMARY | 2023-08-26 18:14 | External Medical Summary | Summary of Care ---
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 ([facility]); COPD, group A, by GOLD 2017 classification ([facility]); ILD (interstitial lung disease) ([facility]); Therapeutic opioid induced constipation Allergies Active Allergy Reactions Severity Noted Date Comments Tizanidine 06/27/2021 documented as of this encounter (statuses as of 06/22/2023) Medications Medication Sig Dispensed Refills Start Date End Date Status LANCET DEVICE MISCIndications: DM type 2, not at goal ([facility]) test bid 100 3 7 Active OMEGA [...] 3 2 Active Senna 8.6 MG Oral TabletIndication s:Constipation [...] or Wheezing. 18 g 3 2 Active X45-Eqjkav 1 MG Oral Tablet Chewable (Methylcobalamin ) [...] 3 Active Dexamethasone 4 MG Oral Tablet (Decadron)Indica tions:Multiple [...] 1 Each 3 3 Active Dexcom G7 Construction Rigger Device Use to check blood sugar 1 [...] other day. 90 Tablet 3 3 Active Lenalidomide 10 MG Oral Capsule (Revlimid)Indica tions:Multiple myeloma not having achieved remission (HCC) Take 1 capsule by mouth 1 time in day for 21 days 21 Capsule 0 3 Active Ondansetron HCl 8 MG Oral [...] at bedtime. 30 Tablet 5 3 Active Gabapentin 300 MG Oral Capsule (Neurontin) Take 1 Capsule by mouth every morning. 90 Capsule 11 2 06/14/20 23 Discontinued(Ref ill) Mirtazapine 15 MG Oral Tablet (Remeron)Indicat ions:Metastatic cancer to bone (HCC),Loss of weight Take 1 Tablet by mouth at bedtime. 30 Tablet 5 3 06/14/20 23 Discontinued documented as of this encounter (statuses as of 06/22/2023) Active Problems Problem Noted Date COPD, group A, by GOLD 2017 classificati on 06/14/2023 ILD (interstitial lung disease) 06/14/20 23 Chronic systolic (congestive) heart fail ure 06/25/2022 Coronary artery disease invo lving [place] coronary artery of [place] heart without angina pectoris 06/25/2022 Presence of [...] as of this encounter (statuses as of 06/22/2023) Resolved Problems Problem Noted Date Resolved Date [...] 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,rt yazdanism 6/07/05/2002 0 05/26/2018 Rosacea 07/28/2001 05/26/2018 LOC PRIM [id number] 07/28/2001 05/26/20 18 documented as of this encounter (statuses as of 06/22/2023) Immunizations Name Administration Dates Next Due COVID-19 mRNA, LNP-s, No Pre serve, 2-Dose Series (Moderna) 08/27/2021,01/04/2021,12/02/2020 Covid-19 Mrna, Lnp-s, No Pre serve, Booster (Moderna) 05/07/2022 Covid-19, Mrna, Lnp-s, Pf, B [...] Sign Reading Time Taken Comments Blood Pressure 104/52 06/14/2023 2:45 PM EDT Pulse 72 06/14/2023 2:45 PM EDT Temperature 36.3 C (97.3 F) 06/14/2023 2:45 PM ED T Respiratory Rate 16 06/14/2023 2:45 PM EDT Oxygen Saturation 93% 06/14/2023 2:45 PM EDT Inhaled Oxygen Concentration - - Weight 72.8 kg (160 lb 6.4 oz) 06/14/2023 2:45 P M EDT Height - - Body Mass Index 21.91 01/11/2023 3:38 PM EDT documented in this encounter Progress Notes * Landen Macario, - 06/14/2023 3:24 PM EDT Subjective: Dev Hernandez is a 78 year old male. Chief Complaint Patient presents with Re-Check HPI: Pt here in follow-up. Using a cane to walk, getting his boot off. Sometimes gets a hot flash in his back. It is a heat or pinpricking. Worse with a cough or sneeze. We discussed the likelihood that it is coming from his back and spine. Mid back down. He takes Gabapentin. Occasional heart palpitations. No pain and not passing out or lightheaded. Worse after bowel movement. Constipated lately. Taking stool softners and a laxative almost daily. He does dulcolax. Drinks pletny of water. Will try Linzess. 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 ([facility]) Z79.4 Paroxysmal atrial fibrillation ([facility]) I48.0 Gastroesophageal reflux disease without esophagitis K21.9 Diabetic peripheral neuropathy associated with type 2 diabetes mellitus ([facility]) E11.42 Multiple myeloma not having achieved remission ([facility]) C90.00 Acute systolic congestive heart failure ([facility]) I50.21 Metastatic cancer to bone ([facility]) C79.51 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 ([facility]) D80.3 Selective deficiency of immunoglobulin m (igm) ([facility]) D80.4 Presence of cardiac pacemaker Z95.0 Chronic systolic (congestive) heart failure ([facility]) I50.22 Coronary artery disease involving [place] coronary artery of [place] heart without angina pectoris I25.10 COPD, group A, by GOLD 2017 classification ([facility]) J44.9 ILD (interstitial lung disease) ([facility]) J84.9 Current Outpatient Medications Medication Sig Dispense Refill LANCET DEVICE MISC test bid 100 3 OMEGA 3 1000 MG PO CAPS 2 per day 90 Cap 0 Calcium Carbonate-Vitamin D 600-400 MG-UNIT Oral Tablet Take by mouth 1 Tablet in the morning AND 1Tablet before bedtime. (Patient taking differently: Take 1 Tablet by mouth in the morning. Take 1 tablet daily.) 60 Tablet 2 Gabapentin 300 MG Oral Capsule (Neurontin) Take 1 Capsule by mouth every morning. 90 Capsule 11 Dexcom G6 Sensor Use to check blood [...] of Breath or Wheezing. 18 g 3 T32-Rgphvw 1 MG Oral Tablet Chewable (Methylcobalamin) Take by mouth daily . Eliquis 5 MG Oral Tablet (Apixaban) TAKE 1 TABLET BY MOUTH TWICE A DAY 60 Tablet 11 Omeprazole 20 MG Oral Capsule Delayed Release (PriLOSEC) Take 1 Capsule by mouth in the morning. 90Capsule 3 Mirtazapine 15 MG Oral Tablet (Remeron) Take 1 Tablet by mouth at bedtime. 30 Tablet 5 Calcium + Vitamin D3 600-10 MG-MCG Oral [...] blood sugar 1 Each 3 Dexcom G7 Construction Rigger Device Use to check blood sugar 1 [...] as needed for Nausea. 30 Tablet 2 No current facility-administered medications for this visit. Review of patient's allergies indicates: Allergen Reactions Tizanidine OBJECTIVE: BP 104/52 | Pulse 72 | Temp 36.3 C (97.3 F) (Tympanic) | Resp 16 | Wt 72.8 kg (160 lb 6.4 oz) |SpO2 93% | BMI 21.91 kg/m | BSA 1.92 m Estimated body mass index is 21.91 kg/m as calculated from the following: Height as of 01/11/23: 1.822 m (5' 11.75"). Weight as of this encounter: 72.8 kg (160 lb 6.4 oz). BP Readings from Last 3 Encounters: 06/14/23 104/52 05/25/23 124/74 05/05/23 136/71 Wt Readings from Last 3 Encounters: 06/14/23 72.8 kg (160 lb 6.4 oz) 05/25/23 70.5 kg (155 lb 6.4 oz) 05/05/23 72 kg (158 lb 12.8 oz) ROS: Negative except for above PHYSICAL EXAM: General: alert, healthy, and no distress Head: Normocephalic, No masses, lesions, tenderness or abnormalities Heart: regular rate & rhythm, no murmur, and no gallops Lungs: chest symmetric with normal AP diameter, no chest deformities noted, no chest wall tenderness, lungs clear to auscultation ASSESSMENT/Plan Sensory neuropathy (Primary) - Gabapentin 300 MG Oral Capsule (Neurontin); Take 1 Capsule by mouth in the morning and 1 Capsule in the evening. 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 Other orders - Mirtazapine 30 MG Oral Tablet (Remeron); Take 1 Tablet by mouth at bedtime. I spent a total of 30 minutes on the date of service in preparation, delivery, and documentation ofthe care provided to this patient, excluding any time spent on the performance of any procedure or separately billable services. Will increase Remeron and add Linzess. The above was discussed and understanding was expressed. Landen Macario DO documented in this encounter Nursing Notes * Glo Ferris LPN - 06/14/2023 2:42 PM EDT Dev Hernandez presents for 6 month recheck. Medications & HM reviewed. C/O heat and tingling on his mid to lower back when he coughs or sneezes. documented in this encounter Plan of Treatment Upcoming Encounters Date Type Specialty Care Team Description 06/29/2023 Laboratory Laboratory [place] [address] [place] [address] 06/29/2023 Office Visit Hematology Oncology Chito Garcia MD [address] [place] [address] 06/29/2023 Hem/Onc Treatment Hematology Oncology [place], Chair [address] Hem Onc Scenery [address] [place] [address] 07/14/2023 Office Visit Palliative Medicine Nan Campos MD [address] [place] [address] 07/20/2023 [facility] [address] [place] [address] 07/28/2023 Office Visit Cardiology Cyril Johns PA-C [address] [place] [address] 10/01/2023 Cardiac Studies Cardiology Fredy Figueroa [facility] [address] [place] [address] 01/17/2024 Office Visit Family Medicine Landen Macario, DO [address] [place] [address] Health Maintenance Due Date Last Done Comments Alpha-1 Antitrypsin 1963 Hepatitis B (3 of 3 - 19+ 3-dose series) 04/17/1994 11/18/1993, 10/18/1993 Zoster Vaccines (2 of 2) 02/21/2013 12/27/2012, 12/16 Pneumococcal Vaccine: 65+ Years (3 - PPSV23 or PCV20) 03/01/2018 03/01/2017, 09/06/2007 Albumin/Creatinine Ratio 12/14/2019 019, 01/03/2018, 06/26/2016, Additional history exists DIABETES-FOOT EXAM 09/16/2021 09/16/2020, 0 12/16/2015, 03/06/2015, Additional history exists Depression Screening, Annual for Pts 12 and Over 05/20/2023 05/20/2022 Influenza Vaccine (FLU shot) (#1) [...] this encounter Medical Devices Implanted Type Area Insole And Outsole Preparer Device Identifier Shelf Expiration Date Model / Serial / Lot Lens Intraoc 24.0 - [id number] - [id number] Implanted:Qty: 1 on 08/16/2018 by Adan Colon MD at OR [facility] Right: Eye [employer]OMB 11/17/2022 [id number] / [id number] / [id number] Lens Intraoc 24.0 - [id number] - [id number] Implanted:Qty: 1 on 08/23/2018 by Adan Colon MD at OR [facility] Left: Eye BAUSCH [employer] LOMB 06/17/2023 [id number] / [id number] / [id number] Screw [employer] [id number] - [id number] Implanted:Qty: 1 on 12/07/2019 by Amilcar Saavedra MD at OR [facility] Left: Foot EXACTECH [id number] / / documented as of this encounter Visit Diagnoses Diagnosis Sensory neuropathy- Primary Unspecified hereditary and idiopathic peripheral neuropathy 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 Care Teams Program Checker Relationship Specialty Start Date End Date Landen Macario, DO [address] [place] [address] PCP - General Family Medicine 02/09/22 documented as of this encounter
--- OUTSIDE RECORDS SUMMARY | 2023-08-26 18:14 | External Medical Summary | Summary of Care ---
Author Name Unknown Organization [facility] Address [address] [facility] [address] Phone [phone] Care Team Providers Care Modern Greek Studies Professor Name Role Phone AhsanLanden nava Primary Care Provider [phone] Encounter Details Date Type Department Care Team Description 01/28/2023 Orders Only Hematology/Oncology [facility] [place] [address] [facility] [place] [address] Dexter Tong MD [address] [facility] [place] [address] Allergies Active Allergy Reactions Severity Noted Date Comments Tizanidine 06/27/2021 documented as of this encounter (statuses as of 06/24/2023) Medications Medication Sig Dispensed Refills Start Date [...] or Wheezing. 18 g 3 04/03/2022 Active B10-Orzccb 1 MG Oral Tablet Chewable (Methylcobalamin) Take [...] A1c goal of less than 8.0% ([facility]) Inject 15 Units under the [...] for Nausea. 30 Tablet 2 01/27/2023 Active documented as of this encounter (statuses as of 06/24/2023) Active Problems Problem Noted Date COPD, group A, by GOLD 2017 classificati on 06/14/2023 ILD (interstitial lung disease) 06/14/20 23 Chronic systolic (congestive) heart fail ure 06/25/2022 Coronary artery disease invo lving [place] coronary artery of [place] heart without angina pectoris 06/25/2022 Presence of [...] as of this encounter (statuses as of 06/24/2023) Resolved Problems Problem Noted Date Resolved Date [...] 0 05/26/2018 Rosacea 07/28/2001 05/26/2018 LOC PRIM [id number] 07/28/2001 05/26/20 18 documented as of this encounter (statuses as of 06/24/2023) Immunizations Name Administration Dates Next Due COVID-19 [...] 06/29/2023 Laboratory Laboratory [place], Lab Scenery [address] [facility] [place] [address] 06/29/2023 Office Visit Hematology Oncology Chito Garcia MD [address] [place] [address] 06/29/2023 Hem/Onc Treatment Hematology [facility] [place], Chair [address] Hem Onc Scenery [address] [place] [address] 07/14/2023 Office Visit Palliative Medicine Nan Campos MD [address] [place], [place] [address] [address] 07/20/2023 Scheduled Telephone Pharmacy [facility] Hem/Onc Tech [address] [place] [phone] 07/28/2023 Office Visit Cardiology Cyril Johns PA-C [address] [place] [address] 08/16/2023 Pharmacy Pharmacy Pharmacist, [facility] [address] [place] [address] 10/01/2023 Cardiac Studies Cardiology Fredy Figueroa [facility] [address] [place] [address] 01/17/2024 Office Visit Family Medicine Landen Macario, DO [address] [place] [address] Health Maintenance Due Date Last Done Comments Alpha-1 Antitrypsin 1963 Hepatitis B (3 of 3 - 19+ 3-dose series) 04/17/1994 11/18/1993, 10/18/1993 Zoster Vaccines (2 of 2) 02/21/2013 12/27/2012, 12/16 Pneumococcal Vaccine: 65+ Years (3 - PPSV23 or PCV20) 03/01/2018 03/01/2017, 09/06/2007 Albumin/Creatinine Ratio 12/14/201912/14/ 019, 01/03/2018, 06/26/2016, Additional history exists Diabetic [...] this encounter Medical Devices Implanted Type Area Hosiery Bagger Device Identifier Shelf Expiration Date Model / Serial / Lot Lens Intraoc 24.0 - [id number] - [id number] Implanted:Qty: 1 on 08/16/2018 by Adan Colon MD at OR [facility] Right: Eye [employer]OM[employer] 11/17/2022 [id number] / [id number] / [id number] Lens Intraoc 24.0 - [id number] - [id number] Implanted:Qty: 1 on 08/23/2018 by Adan Colon MD at OR [facility] Left: Eye [employer]CH [employer] LOMB 06/17/2023 [id number] / [id number] / [id number] Screw [employer] [id number] - [id number] Implanted:Qty: 1 on 12/07/2019 by Amilcar Saavedra MD at OR [facility] Left: Foot EXACTECH [id number] / / documented as of this encounter [...] and were consensually agreed upon. Care Teams Modern Greek Studies Professor Relationship Specialty Start Date End Date Landen Macario, DO [address] [place] [facility] [place] [address] PCP - General Family Medicine 02/09/22 documented as of this encounter
--- OUTSIDE RECORDS SUMMARY | 2023-08-26 18:15 | External Medical Summary | Summary of Care ---
Author Name Unknown Organization [facility] Address [address] [place] [address] Phone [phone] Care Team Providers Care Kettle Chipper Name Role Phone AhsanLanden nava Primary Care Provider [phone] Reason for Visit * Reason Comments Chemotherapy Darzalex Faspro * Episode Based Medications (Routine) - Authorized Specialty Diagnoses / Procedures Referred By Contac t Referred To Contact Diagnoses Multiple myeloma not having achieved remission (HCC) Procedures MA DARATUMUMAB, HYALURONIDASE Chito Garcia MD [address] [place] [id number] Anc Hem/Onc Varinder Ramirez [address] [place] [phone] Referral ID Status Reason Start Date Expiration Date V isits Requested Visits Authorized [id number] Authorized 08/27/2022 08/28/2023 99 99 Encounter Details Date Type Department Care Team Description 05/25/2023 Hem/Onc Treatment Hematology/Oncology Treatment, [place] [address] [place] [phone] [place], Chair 6 Hem Onc Scenery [address] [place] [address] Multiple myeloma not having achieved remission (HCC)* Allergies Active Allergy Reactions Severity Noted Date Comments Tizanidine 06/27/2021 documented as of this encounter (statuses as of 05/25/2023) Medications Medication Sig Dispensed Refills Start Date [...] Reason: per Dr. Garcia, Reported on 11/12/2022 Gabapentin 300 MG Oral Capsule (Neurontin) Take 1 Capsule by mouth every morning. 90 Capsule 11 01/28/2022 Active Dexcom G6 SensorIndications:T ype 2 diabetes mellitus [...] or Wheezing. 18 g 3 04/03/2022 Active Z62-Nrosrk 1 MG Oral Tablet Chewable (Methylcobalamin) Take by mouth daily . 0 Active Eliquis 5 MG Oral Tablet (Apixaban) TAKE 1 TABLET BY MOUTH TWICE A DAY 60 Tablet 11 11/17/2022 Active Omeprazole 20 MG Oral Capsule Delayed Release (PriLOSEC)Indicatio ns:Gastroesophageal reflux disease without esophagitis Take 1 Capsule by mouth in the morning. 90 Capsule 3 12/04/2022 Active Mirtazapine 15 MG Oral Tablet (Remeron)Indication s:Metastatic cancer to bone (HCC),Loss of weight Take 1 Tablet by mouth at bedtime. 30 Tablet 5 12/07/2022 Active Calcium + Vitamin D3 600-10 MG-MCG [...] 75 Units.. 75 mL 3 12/30/2022 Active Ondansetron HCl 8 MG Oral Tablet (Zofran)Indications :Multiple myeloma not having achieved remission (HCC) Take 1 Tablet by mouth every 8 hours as needed for Nausea. 30 Tablet 2 01/27/2023 Active Prochlorperazine Maleate 10 MG Oral Tablet [...] 1 Each 3 03/04/2023 Active Dexcom G7 Wine Bottle Inspector Device Use to check blood sugar 1 [...] Pain, Severe. 120 Tablet 0 05/05/2023 Active Lenalidomide 10 MG Oral Capsule (Revlimid)Indicatio ns:Multiple myeloma not having achieved remission (HCC) TAKE 1 CAPSULE BY MOUTH 1 TIME A DAY FOR 21 DAYS ON THEN 7 DAYS OFF 21 Capsule 0 05/12/2023 Active Klor-Con M20 20 MEQ Oral Tablet Extended Release (Potassium Chloride ER) TAKE 1 TABLET BY MOUTH IN THE MORNING AND BEFORE BEDTIME 180 Tablet 1 05/17/2023 Active Digoxin 125 MCG Oral Tablet (Lanoxin) Take 1 Tablet by mouth every other day. 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 Metastatic cancer to bone 10/22/2021 Acute systolic congestive heart failure 10/08/2021 Multiple myeloma not having achieved rem ission 08/28/2021 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 09/08/2019 Gastroesophageal reflux disease without esophagitis 03/15/2019 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 11/25 Paroxysmal atrial [...] as of this encounter (statuses as of 05/25/2023) Resolved Problems Problem Noted Date Resolved Date [...] 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,rt adventism 07/05/2002 0 05/26/2018 Rosacea 07/28/2001 05/26/2018 LOC PRIM [id number] 07/28/2001 05/26/20 18 documented as of this encounter (statuses as of 05/25/2023) Immunizations Name Administration Dates Next Due COVID-19 [...] Hd) 07/07/2022,07/21/2021,07/09/2021(Defer red: Patient Refused) Seasonal Influenza, Quadriva lent, No Preserve, 6 Mons & Above, IM 07/03/2020,08/04/2019 Seasonal Influenza, Split, I IV3, With Preserve, [...] Sign Reading Time Taken Comments Blood Pressure 124/74 05/25/2023 8:59 AM EDT Pulse 68 05/25/2023 8:59 AM EDT Temperature 36 C (96.8 F) 05/25/2023 8:59 AM EDT Respiratory Rate 18 05/25/2023 8:59 AM EDT Oxygen Saturation 96% 05/25/2023 8:59 AM EDT Inhaled Oxygen Concentration - - Weight 70.5 kg (155 lb 6.4 oz) 05/25/2023 8:59 A M EDT Height - - Body Mass Index 21.22 01/11/2023 3:38 PM EDT documented in this encounter Nursing Notes * Suly Burgess RN - 05/25/2023 10:08 AM EDT Ch 6. Pt arrived today for Darzalex Faspro and Xgeva injections. Pt had labs performed prior, results WNL. Pt reports he is feeling 'ok'. He reports he continues with chronic but stable neuropathy. Pt denies diarrhea. He reports good appetite, but further states cannot seem to gain weight. He denies any other new concerns today. It wast noted that his BS dropped to 50 while waiting, pt states he took his insulin, but didn't eat anything. Instructed pt he should not take his insulin if he is notgoing to eat with it. Pt was given 2 nutrigrain bars and an apple juice, BS came up to 120. Pt tolerated Darzalex Faspro and Xgeva injections well. Pt discharged in stable condition. documented in this encounter Plan of Treatment Upcoming Encounters Date Type Specialty Care Team Description 06/14/2023 Office Visit Pharmacy [facility] [address] [place] [address] 06/14/2023 Office Visit Family Medicine Landen Macario DO [address] [place] [address] 06/22/2023 Scheduled Telephone Pharmacy [facility] Hem/Onc Tech [address] [place] [address] 06/29/2023 Laboratory Laboratory [place], Lab Scenery [address] [place] [address] 06/29/2023 Office Visit Hematology Oncology Chito Garcia MD [address] [place] [address] 06/29/2023 Hem/Onc Treatment Hematology Oncology [place], Chair 2 Hem Onc Scenery [address] [facility] [address] 07/14/2023 Office Visit Palliative Medicine Nan Campos MD [address] [facility] [place] [address] 07/28/2023 Office Visit Cardiology Cyril Johns PA-C [address] [place] [address] 10/01/2023 Cardiac Studies Cardiology Fredy Figueroa [facility] [address] [place] [address] Health Maintenance Due Date Last Done Comments Hepatitis B (3 of 3 - 19+ [...] 2023 07/07/2022, 07/21/2021, 07/21/2021, Additional history exists HbA1c 09/02/2023 03/02/2023, 03/, 10/08/2022, Additional history exists DIABETES-EYE EXAM 09/09/2023 09/09/2022, , 10/25/2019, Additional history exists DIG LEVEL FOR MEDICATION MONITORING YEARLY 01/05/2024 01/04/2023, 10/08/2022, 05/15/2022 B-12 03/02/2024 03/02/2023, 07/0 02/2022, 07/08/2021, Additional history exists GFR 05/25/2024 05/25/2023, 04/17, 03/30/2023, Additional history exists DTaP,Tdap,and Td Vaccines (2 [...] this encounter Medical Devices Implanted Type Area Research Test Engine Operator Device Identifier Shelf Expiration Date Model / Serial / Lot Lens Intraoc 24.0 - [id number] - [id number] Implanted:Qty: 1 on 08/16/2018 by Adan Colon MD at OR [facility] Right: Eye [employer] LOMB 11/17/2022 [id number] / [id number] / [id number] Lens Intraoc 24.0 - [id number] - [id number] Implanted:Qty: 1 on 08/23/2018 by Adan Colon MD at OR [facility] Left: Eye BA[employer]CH [employer] LOMB 06/17/2023 [id number] / [id number] / [id number] Screw [employer] [id number] - [id number] Implanted:Qty: 1 on 12/07/2019 by Amilcar Saavedra MD at [facility] Left: Foot EXACTECH [id number] / / documented as of this encounter Visit Diagnoses Diagnosis Multiple myeloma not having achieved remission (HCC)- Primary Multiple myeloma, without mention of having achieved remission documented in this encounter Administered Medications Active Administered Medications - up to 3 most recent administrations Medication Order MAR Action Action Date Dose Rate Site diphenhydrAMINE (Benadryl) inj 50 mg 50 mg, IV Push, ONCE PRN Other, Hypersensitivity Reaction, Starting on Wed05/25/23 at 0849, Until Wed05/26/23 at 0848, For 24 hours EPINEPHrine 1 MG/ML inj 0.3 mg 0.3 mg, Intramuscular, ONCE PRN Other, Hypersensitivity Reaction or Anaphylaxis, Starting on Wed05/25/23 at 0849, Until Wed05/26/23 at 0848, For 24 hours Hydrocortisone Sod Suc (PF) (Solu-Cortef) inj 100 mg 100 mg, IV Push, ONCE PRN Other, Hypersensitivity Reaction, Starting on Wed05/25/23 at 0849, Until Wed05/26/23 at 0848, For 24 hours meperidine (Demerol) 25 MG/ML inj 25 mg 25 mg, IV Push, ONCE PRN Shivering, Starting on Wed05/25/23 at 0849, Until Wed05/26/23 at 0848, For 24 hours Inactive Administered Medications - up to 3 most recent administrations Medication Order MAR Action Action Date Dose Rate Site Acetaminophen (Tylenol) tab 650 mg 650 mg, Oral, ONCE, On Wed05/25/23 at 0930, For 1 dose, Maximum of 4 grams (4000 mg) per day. Given 05/25/2023 9:08 AM EDT 650 mg Awuxzgbfskw-jjixegonfbgwk-d ihj (Darzalex Faspro) 1800 mg-23491 units/ 15 ml subcut inj 15 mL, Subcutaneous, ONCE, On Wed05/25/23 at 1030, For 1 dose, Inject subcutanteously into abdomen over 3 to 5 minutes Given 05/25/2023 9:35 AM EDT 15 mL Abdomen Right Upper Denosumab (Xgeva) subcut inj 120 mg 120 mg, Subcutaneous, ONCE, On Wed05/25/23 at 1015, For 1 dose Given 05/25/2023 9:44 AM EDT 120 mg Arm Left Upper diphenhydrAMINE (Benadryl) cap 50 mg 50 mg, Oral, ONCE, On Wed05/25/23 at 0930, For 1 dose Given 05/25/2023 9:08 AM EDT 50 mg documented in this encounter Advance Directives Latest [...] and were consensually agreed upon. Care Teams Kettle Chipper Relationship Specialty Start Date End Date Landen Macario, DO [address] [facility] [place] [address] PCP - General Family Medicine 02/09/22 documented as of this encounter
--- OUTSIDE RECORDS SUMMARY | 2023-08-26 18:15 | External Medical Summary ---
Author Name Unknown Address Unknown Organization [id number]:[facility] [place] [address] Laboratory Report Ordering Provider Test Date Status ANIBAL FIERRO 05/25/2023 07:54:16 Final Observation Date Value Abnormality Reference (Units ) Status SYNC LEUKOCYTES IN BLOOD BY AUTOMATED COUNT 05/25/2023 07:54:16 4.30 4.00-10.80 (K/uL) Final Segs 05/25/2023 07:54:16 50.2 40.0-75.0 (%) Final Lymphs % 05/25/2023 07:54:16 28.6 18.0-42.0 (%) Final Monos 05/25/2023 07:54:16 19.3 Above high normal 1.0-11.0 (%) Final Eosinophils 05/25/2023 07:54:16 1.4 0.0-6.0 (%) Final Basos 05/25/2023 07:54:16 0.5 0.0-2.0 (%) Final Absolute Segs 05/25/2023 07:54:16 2.16 1.80-7.70 (K/uL) Final Lymphs, absolute 05/25/2023 07:54:16 1.23 1.00-4.80 (K/ul) Final Monos, Abs 05/25/2023 07:54:16 0.83 0.00-1.10 (K/uL) Final Eos, Abs 05/25/2023 07:54:16 0.06 0.00-0.70 (K/uL) Final Basos, Abs 05/25/2023 07:54:16 0.02 0.00-0.20 (K/uL) Final Performing Location [facility] [place] [address]
--- OUTSIDE RECORDS SUMMARY | 2023-08-26 18:15 | External Medical Summary ---
Author Name Unknown Address Unknown Organization [id number]:[facility] [place] [address] Laboratory Report Ordering Provider Test Date Status ANIBAL FIERRO 05/25/2023 07:54:16 Final Observation Date Value Abnormality Reference (Units ) Status Phosphate 05/25/2023 07:54:16 3.9 2.5-4.8 (m g/dL) Final Performing Location [facility] [place] [address]
--- OUTSIDE RECORDS SUMMARY | 2023-08-26 18:15 | External Medical Summary ---
Author Name Unknown Address Unknown Organization K01:[facility] - [address] [place] [address] Laboratory Report Ordering Provider Test Date Status ANIBAL FIERRO 05/25/2023 07:54:16 Final Observation Date Value Abnormality Reference (Units ) Status IgG 05/25/2023 07:54:16 255 Below low normal 700 -1600 (mg/dL) Final IgA 05/25/2023 07:54:16 60 Below low normal 70- 400 (mg/dL) Final IgM 05/25/2023 07:54:16 18 Below low normal 40- 230 (mg/dL) Final Performing Location [facility] - [address] [place] [address]
--- OUTSIDE RECORDS SUMMARY | 2023-08-26 18:15 | External Medical Summary ---
Author Name Unknown Address Unknown Organization K01:[facility] - [facility] [place][note 2] [address] [facility] [address] Laboratory Report Ordering Provider Test Date Status ANIBAL FIERRO 05/25/2023 07:54:16 Final Observation Date Value Abnormality Reference (Units) Status Protein 07:54:16 5.7 Below low normal 6.0-8.3 (g/dL) Final Albumin/Protein.tota l [Pure mass fraction] in Serum or Plasma by Electrophoresis 3 07:54:16 3.33 3.30-4.40 (g/dL) Final Alpha 1 globulin/Protein.tot al [Pure mass fraction] in Serum or Plasma by Electrophoresis 3 07:54:16 0.24 0.10-0.30 (g/dL) Final Alpha 2 globulin/Protein.tot al [Pure mass fraction] in Serum or Plasma by Electrophoresis 3 07:54:16 0.98 0.60-1.00 (g/dL) Final Beta globulin/Protein.tot al [Pure mass fraction] in Serum or Plasma by Electrophoresis 3 07:54:16 0.84 0.80-1.30 (g/dL) Final Gamma globulin/Protein.tot al [Pure mass fraction] in Serum or Plasma by Electrophoresis 3 07:54:16 0.30 Below low normal 0.70-1.70 (g/dL) Final Protein Fractions [Interpretation] in Serum or Plasma by Electrophoresis Narrative 3 07:54:16 There is a small irregularity of undetermined clinical significance in the gamma fraction. See serum immunofixation results. Final Performing Location LAB[facility]ORY [facility] - [address] [address]
--- OUTSIDE RECORDS SUMMARY | 2023-08-26 18:15 | External Medical Summary ---
Author Name Unknown Address Unknown Organization K09:[facility] [place] [address] [place] [address] Laboratory Report Ordering Provider Test Date Status ANIBAL FIERRO 05/25/2023 07:54:16 Final Observation Date Value Abnormality Reference (Units ) Status BUN 05/25/2023 07:54:16 23 Above high normal 6-20 (mg/dL) Final Creatinine 05/25/2023 07:54:16 1.3 Above high normal 0.6-1.2 (mg/dL) Final Glomerular filtration rate/1.73 sq M.predicted [Volume Rate/Area] in Serum, Plasma or Blood by Creatinine-based formula (CKD-EPI) 05/25/2023 07:54:16 57 Below low normal >=60 (mL/min) Final eGFR is calculated based on the CKD-EPI 2020 equation SODIUM 05/25/2023 07:54:16 141 135-146 (m mol/L) Final Potassium 05/25/2023 07:54:16 4.6 3.5-5.1 (m mol/L) Final Cl 05/25/2023 07:54:16 107 98-107 (mm ol/L) Final CO2 05/25/2023 07:54:16 21 Below low normal 22- 32 (mmol/L) Final Anion gap 05/25/2023 07:54:16 13 7-15 (mmol /L) Final Glucose 05/25/2023 07:54:16 98 70-120 (mg /dL) Final Albumin 05/25/2023 07:54:16 4.1 3.8-5.0 (g /dL) Final AST (Aspartate aminotransferase) 05/25/2023 07:54:16 20 10-50 (U/L) Fin al Alk Phos 05/25/2023 07:54:16 70 35-130 (U/ L) Final Bilirubin, Total 05/25/2023 07:54:16 0.5 <=1 .2 (mg/dL) Final Calcium 05/25/2023 07:54:16 9.7 8.4-10.2 ( mg/dL) Final Protein 05/25/2023 07:54:16 6.4 6.0-8.3 (g /dL) Final ALT (Alanine aminotransferase) 05/25/2023 07:54:16 27 10-50 (U/L) Marcelo lobato Performing Location [facility] [place] [address]
--- OUTSIDE RECORDS SUMMARY | 2023-08-26 18:15 | External Medical Summary | Summary of Care ---
Author Name Unknown Organization [facility] Address [address] [facility] [facility] [address] Phone [phone] Care Team Providers Care Director Of Supply Chain Name Role Phone RoselynLanden cameron Con MCCABE Primary Care Provider [phone] Reason for Visit * Reason Comments Outpatient Testing Encounter Details Date Type Department Care Team Description 05/25/2023 Laboratory Laboratory Sc[place] [address] [place] [id number] [facility] Lab Scenery [address] [place] [address] Multiple myeloma not having achieved remission (HCC) [...] or Wheezing. 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 Metastatic cancer to bone 10/22/2021 Acute systolic congestive heart failure 10/08/2021 Multiple myeloma not having achieved rem ission 08/28/2021 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 09/08/2019 Gastroesophageal reflux disease without esophagitis 03/15/2019 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 11/25 Paroxysmal atrial [...] 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,rt cheondoism 07/05/2002 0 05/26/2018 Rosacea 07/28/2001 05/26/2018 LOC PRIM [id number] 07/28/2001 05/26/20 18 documented as of this encounter (statuses as of 05/25/2023) Immunizations Name Administration Dates Next Due COVID-19 mRNA, LNP-s, No Pre serve, 2-Dose Series (Moderna) 08/27/2021,01/04/2021,12/02/2020 Covid-19 Mrna, Lnp-s, No Pre serve, Booster (Moderna) 05/07/2022 Covid-19, Mrna, Lnp-s, Pf, B ivalent, 30 Mcg, IM, 12 yrs and above (CapsoVision) 09/04/2022 H1N1 2009 Influenza, IM 09/22/2009 PPD [...] Encounters Date Type Specialty Care Team Description 05/25/2023 Hem/Onc Treatment Hematology [place] [place], Chair 6 Hem Onc Scenery [address] [place] [address] Arrived 06/14/2023 Office Visit Pharmacy Pharmacist1, [facility] Sp [address] [place] [address] 06/14/2023 Office Visit Family Medicine Landen Macario DO [address] [place] [address] 06/22/2023 Laboratory Laboratory [facility] Scenery [address] [place] [address] 06/22/2023 Office Visit Hematology Oncology Chito Garcia MD [address] [place] [address] 06/22/2023 Hem/Onc Treatment Hematology Oncology [place], Chair 4 Hem Onc Scenery [address] [place] [address] 06/22/2023 Scheduled Telephone Pharmacy [facility] Hem/Onc Tech [address] [place] [address] 07/14/2023 Office Visit Palliative Medicine Nan Campos MD [address] [place] [address] 07/28/2023 Office Visit Cardiology Cyril Johns PA-C [address] [place] [address] 10/01/2023 Cardiac Studies [facility] [address] [place] [address] Pending Results Name Type Priority Associated Diagnoses Date /Time PHOSPHORUS Lab STAT Multiple myeloma not having achieved remission (HCC) 05/25/2023 7:54 AM EDT COMPREHENSIVE METABOLIC PANEL Lab STAT Multiple myeloma not having achieved remission (HCC) 05/25/2023 7:54 AM EDT SERUM PROTEIN ELECTROPHORESIS REFLEX PROFILE Lab STAT Multiple myeloma not having achieved remission (HCC) 05/25/2023 7:54 AM EDT SERUM FREE LIGHT CHAINS Lab STAT Multiple myeloma not having achieved remission (HCC) 05/25/2023 7:54 AM EDT IMMUNOGLOBULIN QUANTITATIVE Lab STAT Multiple myeloma not having achieved remission (HCC) 05/25/2023 7:54 AM EDT Health Maintenance Due Date Last [...] 07/21/2021, Additional history exists HbA1c 09/02/2023 03/02/2023, 12/17, 10/08/2022, Additional history exists DIABETES-EYE EXAM 09/09/2023 09/09/2022, , 10/25/2019, Additional history exists DIG LEVEL FOR MEDICATION MONITORING YEARLY 01/05/2024 01/04/2023, 10/08/2022, 05/15/2022 B-12 03/02/2024 03/02/2023, 07/0 02/2022, 07/08/2021, Additional history exists GFR 04/27/2024 04/27/2023, 03/18, 03/02/2023, Additional history exists DTaP,Tdap,and Td Vaccines (2 [...] this encounter Medical Devices Implanted Type Area Pricing Coordinator Device Identifier Shelf Expiration Date Model / Serial / Lot Lens Intraoc 24.0 - [id number] - [id number] Implanted:Qty: 1 on 08/16/2018 by Adan Colon MD at OR [facility] Right: Eye [employer] 11/17/2022 [id number] / [id number] / [id number] Lens Intraoc 24.0 - [id number] - [id number] Implanted:Qty: 1 on 08/23/2018 by Adan Colon MD at OR [facility] Left: Eye BA[employer] LOMB 06/17/2023 [id number] / [id number] / [id number] Screw [employer] [id number] - [id number] Implanted:Qty: 1 on 12/07/2019 by Amilcar Saavedra MD at [facility] Left: Foot EXACTECH [id number] / / documented as of this encounter Procedures Procedure Name Priority Date/Time Associated Diagnosis Comments DIFFERENTIAL, AUTOMATED STAT 05/25/2023 7:54 AM EDT Multiple myeloma not having achieved remission (HCC) CBC WITH WBC DIFFERENTIAL STAT 05/25/2023 7:54 AM EDT Multiple myeloma not having achieved remission (HCC) CBC STAT 05/25/2023 7:54 AM EDT Multiple myeloma not having achieved remission (HCC) documented in this encounter Results * (ABNORMAL) DIFFERENTIAL, AUTOMATED (05/25/2023 7:54 AM EDT) WBC 4.30 4.00 - 10.80 K/uL 05/25/2023 7:59 AM EDT [facility] 56-02 Neutrophils % 50.2 40.0 - 75.0 % 05/25/2023 7:59 AM EDT [facility]ORY [facility] 56-02 Lymphocytes % 28.6 18.0 - 42.0 % 05/25/2023 7:59 AM EDT [facility] 56-02 Monocytes % 19.3(H) 1.0 - 11.0 % 05/25/2023 7:59 AM EDT [facility] 56-02 Eosinophils % 1.4 0.0 - 6.0 % 05/25/2023 7:59 AM EDT [facility] 56-02 Basophils % 0.5 0.0 - 2.0 % 05/25/2023 7:59 AM EDT [facility] 56- Absolute Neutrophils 2.16 1.80 - 7.70 K/uL 05/25/2023 7:59 AM EDT [facility] 56- Absolute Lymphocytes 1.23 1.00 - 4.80 K/ul 05/25/2023 7:59 AM EDT [facility] 56-02 Absolute Monocytes 0.83 0.00 - 1.10 K/uL 05/25/2023 7:59 AM EDT [facility] 56- Absolute Eosinophils 0.06 0.00 - 0.70 K/uL 05/25/2023 7:59 AM EDT [facility] 56- Absolute Basophils 0.02 0.00 - 0.20 K/uL 05/25/2023 7:59 AM EDT [facility] 56- Blood Venous blood specimen / Unknown Venipuncture / Unknown 05/25/2023 7:54 AM EDT 05/25/2023 7:54 AM EDT Chito Garcia MD LAB BLOOD ORDERA BLES [facility] [address] [place] [address] * (ABNORMAL) CBC (05/25/2023 7:54 AM EDT) WBC 4.30 4.00 - 10.80 K/uL 05/25/2023 7:59 AM EDT [facility] 56- RBC 3.13 4.50 - 5.25 M/uL 05/25/2023 7:59 AM EDT [facility] 56- HGB 10.2(L) 14.0 - 16.8 g/dL 05/25/2023 7:59 AM EDT [facility] HCT 31.7(L) 40.0 - 48.4 % 05/25/2023 7:59 AM EDT [facility] 56 MCV 101.3 82.0 - 99.5 fL 05/25/2023 7:59 AM EDT [facility] 56 MCH 32.6 27.0 - 34.0 pg 05/25/2023 7:59 AM EDT [facility] 56 MCHC 32.2 32.0 - 36.0 g/dL 05/25/2023 7:59 AM EDT [facility] 56 RDW 16.5 11.5 - 15.5 % 05/25/2023 7:59 AM EDT [facility] 56 PLT 135(L) 140 - 400 K/uL 05/25/2023 7:59 AM EDT [facility] 56 MPV 10.4 6.6 - 11.1 fL 05/25/2023 7:59 AM EDT [facility] 56 Blood Venous blood specimen / Unknown Venipuncture / Unknown 05/25/2023 7:54 AM EDT 05/25/2023 7:54 AM EDT Chito Garcia MD LAB BLOOD ORDERA BLES [facility] 56- [address] [place], [place] [id number] documented in this encounter Visit Diagnoses Diagnosis [...] and were consensually agreed upon. Care Teams Director Of Supply Chain Relationship Specialty Start Date End Date Landen Macario, DO [address] [place] [address] PCP - General Family Medicine 02/09/22 documented as of this encounter
--- OUTSIDE RECORDS SUMMARY | 2023-08-26 18:15 | External Medical Summary | Summary of Care ---
Author Name Unknown Organization [facility] Address [address] [place] [facility] [place] [address] Phone [phone] Care Team Providers Care Government Teacher Name Role Phone AhsanLanden nava Primary Care Provider [phone] Reason for Visit * Reason Onset Date Comments Medication Refill 06/01/2023 Encounter Details Date Type Department Care Team Description 06/01/2023 Refill Hematology/Oncology Treatment, [place] [address] [facility] [place] [id number] Chito Garcia MD 200 [facility] [place] [address] Multiple myeloma not having achieved remission (HCC) Allergies Active Allergy Reactions Severity Noted Date Comments Tizanidine 06/27/2021 documented as of this encounter (statuses as of 06/01/2023) Medications Medication Sig Dispensed Refills Start Date [...] 90 Capsule 11 01/28/2022 Active Dexcom G6 SensorIndications: Type 2 diabetes mellitus with peripheral vascular disease (HCC) Use to check blood sugars. Change every 10 days 3 Each 3 02/02/2022 Active Dexcom G6 TransmitterIndicat ions:Type 2 diabetes mellitus with peripheral vascular disease (HCC) Use to check blood sugars. Change every 3 months 1 Each 3 02/02/2022 Active Senna 8.6 MG Oral TabletIndications: Constipation due to pain medication Take by mouth 2 Tablets before bedtime. 90 Tablet 0 03/09/2022 Active Additional Information Patient taking differently:2 Tablet OralHS PRN, Reported on 11/13/2022 Albuterol Sulfate HFA 108 (90 Base) MCG/ACT Inhalation Aerosol Solution Inhale by mouth 2 Puffs every 6 hours as needed for Cough, Shortness of Breath or Wheezing. 18 g 3 04/03/2022 Active H43-Muwila 1 MG Oral Tablet Chewable (Methylcobalamin) Take [...] 12/04/2022 Active Mirtazapine 15 MG Oral Tablet (Remeron)Indicatio ns:Metastatic cancer to bone (HCC),Loss of weight Take 1 Tablet by mouth at bedtime. 30 Tablet 5 12/07/2022 Active Calcium + Vitamin D3 600-10 MG-MCG Oral Tablet (Calcium Carb-Cholecalcifer ol)Indications:Mul tiple myeloma not having achieved remission (HCC) TAKE 1 TABLET BY MOUTH EVERY DAY IN THE MORNING AND BEFORE BEDTIME 180 Tablet 2 12/14/2022 Active Dexamethasone 4 MG Oral Tablet (Decadron)Indicati ons:Multiple myeloma [...] Solostar 100 UNIT/ML Subcutaneous Solution Pen-injector (Basaglar KwikPen)Indication s:Type 2 diabetes mellitus with hemoglobin A1c goal of less than 8.0% (HCC) Inject 40 Units under the skin every night at bedtime. 45 mL 1 02/15/2023 Active Dexcom G7 Sensor Use to check blood sugar 1 Each 3 03/04/2023 Active Dexcom G7 Assistant Maintenance Manager Device Use to check blood sugar [...] 05/19/2023 Active Lenalidomide 10 MG Oral Capsule (Revlimid)Indicati ons:Multiple myeloma not having achieved remission (HCC) Take 1 capsule by mouth 1 time in day for 21 days 21 Capsule 0 06/01/2023 Active Lenalidomide 10 MG Oral Capsule (Revlimid)Indicati ons:Multiple myeloma not having achieved remission (HCC) TAKE 1 CAPSULE BY MOUTH 1 TIME A DAY FOR 21 DAYS ON THEN 7 DAYS OFF 21 Capsule 0 05/12/2023 3 Discontinue d(Refill) documented as of this encounter (statuses as of 06/01/2023) Active Problems Problem Noted Date Chronic systolic (congestive) heart fail ure 06/25/2022 Coronary artery disease invo lving [place] coronary artery of [place] heart without angina pectoris 06/25/2022 Presence of cardiac pacemaker 03/24/2022 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 Metastatic cancer to bone 10/22/2021 Acute systolic congestive heart failure 10/08/2021 Multiple myeloma not having achieved rem ission 08/28/2021 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 09/08/2019 Gastroesophageal reflux disease without esophagitis 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 11/25 Paroxysmal [...] as of this encounter (statuses as of 06/01/2023) Resolved Problems Problem Noted Date Resolved Date [...] 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,rt jehovah's witness 07/05/2002 0 05/26/2018 Rosacea 07/28/2001 05/26/2018 LOC PRIM [id number] 07/28/2001 05/26/20 18 documented as of this encounter (statuses as of 06/01/2023) Immunizations Name Administration Dates Next Due COVID-19 [...] Telephone Encounter - Glo Terry RN - 06/01/2023 8:56 AM EDT [employer] Auth #[id number] OV note on 04/27/23: "Current Treatment: Resumed Treatment on 09/17/22 with Darzalex plus Revlimid and Decadron" documented in this encounter Plan of Treatment Upcoming Encounters Date Type Specialty Care Team Description 06/14/2023 Office Visit Pharmacy Pharmacist1, [facility] [address] [place] [address] 06/14/2023 Office Visit Family Medicine Landen Macario, [address] [place] [address] 06/22/2023 Scheduled Telephone Pharmacy Ivana [facility] Hem/Onc Tech [address] [place] [address] 06/29/2023 Laboratory Laboratory [facility] Lab Scenery [address] [place] [address] 06/29/2023 Office Visit Hematology Oncology Chito Garcia MD [address] [place] [address] 06/29/2023 Hem/Onc Treatment [facility] [place] [place], Chair 2 Hem Onc Scenery [address] [place] [address] 07/14/2023 Office Visit Palliative Medicine Nan Campos MD [address] [place] [address] [place], [place] [id number] 07/28/2023 Office Visit Cardiology Cyril Johns PA-C [address] [place] [address] 10/01/2023 Cardiac Studies Cardiology Fredy Figueroa [facility] [address] [place] [address] Health Maintenance Due Date Last Done Comments [...] this encounter Medical Devices Implanted Type Area Mobile Sales Technician Device Identifier Shelf Expiration Date Model / Serial / Lot Lens Intraoc 24.0 - [id number] - [id number] Implanted:Qty: 1 on 08/16/2018 by dAan Colon MD at OR [facility] Right: Eye [employer]OM[employer] 11/17/2022 [id number] / [id number] / [id number] Lens Intraoc 24.0 - [id number] - [id number] Implanted:Qty: 1 on 08/23/2018 by Adan Colon MD at OR [facility] Left: Eye BAUSCH & LOMB 06/17/2023 [id number] / [id number] / [id number] Screw [employer] [id number] - [id number] Implanted:Qty: 1 on 12/07/2019 by Amilcar Saavedra MD at OR [facility] Left: Foot EXACTECH [id number] / / documented as of this encounter [...] and were consensually agreed upon. Care Teams Government Teacher Relationship Specialty Start Date End Date Landen Macario, DO 200 [place] [address] PCP - General Family Medicine 02/09/22 documented as of this encounter
--- OUTSIDE RECORDS SUMMARY | 2023-08-26 18:15 | External Medical Summary | Summary of Care ---
Author Name Unknown Organization [facility] Address [address] [facility] [place] [address] Phone [phone] Care Team Providers Care Long Winder Tender Name Role Phone AhsanLanden nava Primary Care Provider [phone] Reason for Visit * Reason Comments Diabetes Follow-Up Dosage Adjustment In Person (Anticoag Cl inic) Encounter Details Date Type Department Care Team Description 06/14/2023 [facility] [place] [address] [facility] [place] [address] Pharmacist1, [facility] 200 [facility] [place] [address] Type 2 diabetes mellitus with hemoglobin A1c goal of less than 8.0% (HCC)*; Multiple myeloma not having achieved remission (HCC) Allergies Active Allergy Reactions Severity Noted Date Comments Tizanidine 06/27/2021 documented as of this encounter (statuses as of 06/14/2023) Medications Medication Sig Dispensed Refills Start Date End Date Status LANCET DEVICE MISCIndications:DM type 2, not at goal (HCC) test bid 100 3 07/27/2007 Active OMEGA 3 1000 MG PO CAPSIndications:Radha aguilar ischemic heart disease,Dyslipidem ia, goal LDL below [...] or Wheezing. 18 g 3 04/03/2022 Active I17-Svjirw 1 MG Oral Tablet Chewable (Methylcobalamin) Take [...] 1 Each 3 03/04/2023 Active Dexcom G7 Tie Loader Device Use to check blood sugar 1 [...] for Nausea. 30 Tablet 2 06/14/2023 Active Ondansetron HCl 8 MG Oral Tablet (Zofran)Indication s:Multiple myeloma not having achieved remission (HCC) Take 1 Tablet by mouth every 8 hours as needed for Nausea. 30 Tablet 2 01/27/2023 3 Discontinue d(Refill) documented as of this encounter (statuses as of 06/14/2023) Active Problems Problem Noted Date Chronic systolic (congestive) heart fail ure 06/25/2022 Coronary artery disease invo lving [place] coronary artery of [place] heart without angina pectoris 06/25/2022 Presence of [...] as of this encounter (statuses as of 06/14/2023) Resolved Problems Problem Noted Date Resolved Date [...] 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,rt sikhism 07/05/2002 0 05/26/2018 Rosacea 07/28/2001 05/26/2018 LOC PRIM [id number] 07/28/2001 05/26/20 18 documented as of this encounter (statuses as of 06/14/2023) Immunizations Name Administration Dates Next Due COVID-19 [...] as of this encounter Progress Notes * Filipe Moya V, [facility] - 06/14/2023 1:52 PM EDT Medication Therapy Disease Management Clinic - Diabetes Management Progress Note eDv Hernandez, identified by name and date of , is a 78 year old male being seen for diabetes management/education. Patient presents for return diabetic visit. DIABETES: Current diabetic medications: Victoza 1.2 mg daily AM Basaglar 40 units daily at bedtime daily Novolog 15 units TID with meals + correction factor of 1:25 over 150 Medication Injection Site: Abdomen Lifestyle: Diet: unchanged History of Treatment Barriers: Lifestyle: None Therapy considerations: Chemotherapy starting 09/15, Decadron 20mg once weekly on Tuesdays Medication: Metformin: ROLO noted by pcp, Victoza 1.8mg - ROLO Glucose Review/SMBG: Readings obtained from patient device 30 day average - 181 (56% in range) Hypoglycemia: Does your blood sugar go below 70 mg/dL? Yes, last evening. Gave insulin and didn't eat right away and ate pasta. Hyperglycemia symptoms present: none Recent Labs Units 03/02/23 0841 01/04/23 1032 10/08/22 0914 HEMOGLOBIN A1C - [facility] % 5.3 6.8* 6.7* Recent Labs Units 05/25/23 0754 04/27/23 0731 03/30/23 0846 ESTIMATED GLOMERULAR FILTRATION RATE - [facility] mL/min 57* 51* 69 CREATININE - [facility] mg/dL 1.3* 1.4* 1.1 Lab Results Component Value Date/Time CREATININE - [facility] 1.3 (H) 05/25/2023 07:54 AM CREATININE - [facility] 1.4 (H) 04/27/2023 07:31 AM CREATININE - [facility] 1.1 03/30/2023 08:46 AM CREATININE - [facility] 1.1 09/04/2020 10:57 AM CREATININE - [facility] 1.3 (H) 03/29/2020 11:17 AM CREATININE - [facility] 1.3 (H) 03/29/2020 11:17 AM CREATININE, RANDOM URINE - [facility] 97 12/14/2018 11:10 AM CREATININE, RANDOM URINE - [facility] 141 01/03/2018 04:00 PM CREATININE, RANDOM URINE - [facility] 83 06/26/2016 10:31 AM CREATININE-OUTSIDE LAB 1.25 10/10/2021 12:00 AM HYPERTENSION: Patient on ACEi/ARB: no, Losartan stopped recently - low BP BP Readings from Last 3 Encounters: 08/08/23 124/74 05/05/23 136/71 04/27/23 118/61 Blood pressure at goal: yes HYPERLIPIDEMIA: Patient is taking moderate or high intensity statin: yes, Atorvastatin 40mg daily HEALTH MAINTENANCE REVIEW: Health Maintenance Due Topic Date Due Hepatitis B (3 of 3 - 19+ 3-dose series) 04/17/1994 Zoster Vaccines (2 of 2) 02/21/2013 Pneumococcal Vaccine: 65+ Years (3 - PPSV23 or PCV20) 03/01/2018 Albumin/Creatinine Ratio 12/14/2019 DIABETES-FOOT EXAM 09/16/2021 Depression Screening, Annual for Pts 12 and Over 05/20/2023 ASSESSMENT & PLAN: ICD-10-CM 1. Type 2 diabetes mellitus with hemoglobin A1c goal of less than 8.0% (HCC) E11.9 BG Readings - Blood sugars controlled. A1C 6.6 today! Medications - Reviewed current regimen, patient is adherent to regimen. Diet, Exercise, Lifestyle - No significant lifestyle changes since last visit. Discussed with patient today. Patient is agreeable to wear Dexcom G7 CGM. Patient aware to contact clinic if any hypoglycemia before next visit. MEDICATION CHANGES: no change Diabetic Medications: Victoza 1.2 mg daily AM Basaglar 40 units daily at bedtime daily Novolog 15 units TID with meals + correction factor of 1:25 over 150 HEALTH MAINTENANCE INTERVENTIONS: Labs: Ordered & Scheduled: Urine Microalbumin Immunizations: needs pneumococcal anf Hepatitis B series Foot Exam: Complete with next PCP visit on 06/14 Eye Exam: Up to Date Annual Wellness Visit: Up to Date FOLLOW UP: Return to clinic in 3 months Visit date not found Filipe Moya RPh, CDE Clinical Pharmacist - Sausage Cooker Medication Therapy Management Clinic 06/14/2023, 1:52 PM documented in this encounter Plan of Treatment Upcoming Encounters Date Type Specialty Care Team Description 06/14/2023 Office Visit Family Medicine Landen Macario, [address] [place] [address] Arrived 06/22/2023 Scheduled Telephone Pharmacy [facility] Hem/Onc Tech [address] [facility] [place] [address] 06/29/2023 Laboratory Laboratory [facility], Lab Scenery [address] [place] [address] 06/29/2023 Office Visit Hematology Oncology Chito Garcia MD [address] [place] [address] 06/29/2023 Hem/Onc Treatment [facility] [place], Chair 8 Hem Onc Scenery [address] [place] [address] 07/14/2023 Office Visit Palliative Medicine Nan Campos MD [address] [place] [address] [place] [phone] 07/28/2023 Office Visit Cardiology Cyril Johns PA-C [address] [place] [address] 10/01/2023 [facility] [address] [place] [address] Health Maintenance Due Date Last Done Comments [...] encounter Medical Devices Implanted Type Area Manager Packaging Device Identifier Shelf Expiration Date Model / Serial / Lot Lens Intraoc 24.0 - [id number] - [id number] Implanted:Qty: 1 on 08/16/2018 by Adan Colon MD at OR [facility] Right: Eye [employer]OM[employer] 11/17/2022 [id number] / [id number] / [id number] Lens Intraoc 24.0 - [id number] - [id number] Implanted:Qty: 1 on 08/23/2018 by Adan Colon MD at OR [facility] Left: Eye BAUSCH [employer] LOMB 06/17/2023 [id number] / [id number] / [id number] [employer] [id number] - [id number] Implanted:Qty: 1 on 12/07/2019 by Amilcar Saavedra MD at OR [facility] Left: Foot EXACTECH [id number] / / documented as of this encounter Visit Diagnoses Diagnosis Type 2 diabetes mellitus with hemoglobin A1c goal of less than 8.0% (HCC)- Primary Multiple myeloma not having achieved remission (HCC) [...] and were consensually agreed upon. Care Teams Long Winder Tender Relationship Specialty Start Date End Date Landen Macario, DO [address] [place] [address] PCP - General Family Medicine 02/09/22 documented as of this encounter
--- OUTSIDE RECORDS SUMMARY | 2023-08-26 18:15 | External Medical Summary ---
Author Name Unknown Address Unknown Organization K01:[facility] [place] [address] [place] [address] Laboratory Report Ordering Provider Test Date Status ANIBAL FIERRO 05/25/2023 07:54:16 Final Observation Date Value Abnormality Reference (Units) Status Immunofixation for Serum or Plasma 05/25/2023 07:54:16 There is a small abnormality in IgG kappa. Recommend repeat testing in 3 to 6 months, if clinically necessary. Final Performing Location [facility] [place] [facility] [address] [place] [address]
--- OUTSIDE RECORDS SUMMARY | 2023-08-26 18:15 | External Medical Summary ---
Author Name Unknown Address Unknown Organization K09:[facility] [place] [address] Laboratory Report Ordering Provider Test Date Status PRAKASHPHARMACIST1 06/14/2023 13:35:36 Final Observation Date Value Abnormality Reference (Units ) Status HbA1C 06/14/2023 13:35:36 6.6 Above high normal 4. 0-5.6 (%) Final Performing Location [facility] [place] [address]
--- OUTSIDE RECORDS SUMMARY | 2023-08-26 18:16 | External Medical Summary ---
Author Name Unknown Address Unknown Organization K09:[facility] [place] [address] Laboratory Report Ordering Provider Test Date Status ANIBAL FIERRO 05/25/2023 07:54:16 Final Observation Date Value Abnormality Reference (Units ) Status WBC, Total 05/25/2023 07:54:16 4.30 4.00-10.8 0 (K/uL) Final RBC 05/25/2023 07:54:16 3.13 4.50-5.25 (M/uL) Final Hemoglobin 05/25/2023 07:54:16 10.2 Below low normal 14 .0-16.8 (g/dL) Final HCT 05/25/2023 07:54:16 31.7 Below low normal 40. 0-48.4 (%) Final MCV 05/25/2023 07:54:16 101.3 82.0-99.5 (fL) Final MCH 05/25/2023 07:54:16 32.6 27.0-34.0 (pg) Final MCHC 05/25/2023 07:54:16 32.2 32.0-36.0 (g/dL) Final RDW 05/25/2023 07:54:16 16.5 11.5-15.5 (%) Final Platelets 05/25/2023 07:54:16 135 Below low normal 140 -400 (K/uL) Final MPV 05/25/2023 07:54:16 10.4 6.6-11.1 ( fL) Final Performing Location [facility] [place] [address]
--- OUTSIDE RECORDS SUMMARY | 2023-08-26 18:16 | External Medical Summary | Summary of Care ---
Author Name Unknown Organization [facility] Address [address] [place] [address] Phone [phone] Care Team Providers Care Digital Operations Analyst Name Role Phone Landen Macario Primary Care Provider [phone] Reason for Visit * Reason Comments eRx-Medication Refill Encounter Details Date Type Department Care Team Description 05/12/2023 Refill Hematology/Oncology Treatment, [place] [address] [place] [id number] Chito Garcia MD [address] [place] [address] Multiple myeloma not having achieved remission (HCC) Allergies Active Allergy Reactions Severity Noted Date Comments Tizanidine 06/27/2021 documented as of this encounter (statuses as of 05/12/2023) Medications Medication Sig Dispensed Refills Start Date End Date Status LANCET DEVICE MISCIndications:D M type 2, not at goal (HCC) test bid 100 3 07/27/2007 Active OMEGA 3 1000 MG PO CAPSIndications:C [...] 90 Capsule 11 01/28/2022 Active Dexcom G6 SensorIndications :Type 2 diabetes mellitus with peripheral vascular disease (HCC) Use to check blood sugars. Change every 10 days 3 Each 3 02/02/2022 Active Dexcom G6 TransmitterIndica tions:Type 2 diabetes mellitus with peripheral vascular disease (HCC) Use to check blood sugars. Change every 3 months 1 Each 3 02/02/2022 Active Senna 8.6 MG Oral TabletIndications :Constipation [...] or Wheezing. 18 g 3 04/03/2022 Active V78-Wrhtyn 1 MG Oral Tablet Chewable (Methylcobalamin) Take by mouth daily . 0 Active Digoxin 125 MCG Oral Tablet (Lanoxin) Take 1 Tablet by mouth every other day. 90 Tablet 3 05/25/2022 Active Potassium Chloride Raven ER 20 MEQ Oral Tablet Extended Release (Klor-Con M20) Take 1 Tablet by mouth in the morning and 1 Tablet before bedtime. 180 Tablet 1 11/10/2022 Active Eliquis 5 MG Oral Tablet (Apixaban) TAKE 1 TABLET BY MOUTH TWICE A DAY 60 Tablet 11 11/17/2022 Active Omeprazole 20 MG Oral Capsule Delayed Release (PriLOSEC)Indicat ions:Gastroesopha geal reflux disease without esophagitis Take 1 Capsule by mouth in the morning. 90 Capsule 3 12/04/2022 Active Mirtazapine 15 MG Oral Tablet (Remeron)Indicati ons:Metastatic cancer to bone (HCC),Loss of weight Take 1 Tablet by mouth at bedtime. 30 Tablet 5 12/07/2022 Active Calcium + Vitamin D3 600-10 MG-MCG Oral Tablet (Calcium Carb-Cholecalcife rol)Indications:M ultiple myeloma not having achieved remission (HCC) TAKE 1 TABLET BY MOUTH EVERY DAY IN THE MORNING AND BEFORE BEDTIME 180 Tablet 2 12/14/2022 Active Dexamethasone 4 MG Oral Tablet (Decadron)Indicat [...] 1 Each 3 03/04/2023 Active Dexcom G7 Telex Operator Device Use to check blood sugar [...] 05/05/2023 Active Lenalidomide 10 MG Oral Capsule (Revlimid)Indicat ions:Multiple myeloma not having achieved remission (HCC) TAKE 1 CAPSULE BY MOUTH 1 TIME A DAY FOR 21 DAYS ON THEN 7 DAYS OFF 21 Capsule 0 05/12/2023 Active Lenalidomide 10 MG Oral Capsule (Revlimid)Indicat ions:Multiple myeloma not having achieved remission (HCC) TAKE 1 CAPSULE BY MOUTH 1 TIME A DAY FOR 21 DAYS ON THEN 7 DAYS OFF 21 Capsule 0 04/19/2023 05/12/20 23 Discontinued documented as of this encounter (statuses as of 05/12/2023) Active Problems Problem Noted Date Chronic systolic (congestive) heart fail ure 06/25/2022 Coronary artery disease invo lving [place] coronary artery of [place] heart without angina pectoris 06/25/2022 Presence of cardiac pacemaker 03/24/2022 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 Metastatic cancer to bone 10/22/2021 Acute systolic congestive heart failure 10/08/2021 Multiple myeloma not having achieved rem ission 08/28/2021 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 09/08/2019 Gastroesophageal reflux disease without esophagitis 03/15/2019 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 11/25 Paroxysmal atrial [...] as of this encounter (statuses as of 05/12/2023) Resolved Problems Problem Noted Date Resolved Date [...] 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,rt anabaptism 07/05/2002 0 05/26/2018 Rosacea 07/28/2001 05/26/2018 LOC PRIM [id number] 07/28/2001 05/26/20 18 documented as of this encounter (statuses as of 05/12/2023) Immunizations Name Administration Dates Next Due COVID-19 [...] encounter Miscellaneous Notes * Telephone Encounter - Maile Shipman RN - 05/12/2023 1:53 PM EDT [employer] Auth #[id number] OV note on 04/27/23: "Current Treatment: ResumedTreatment on09/17/22 withDarzalex plus Revlimid and Decadron" * Telephone Encounter - Interface, E-Rx Ss Inbound - 05/12/2023 11:18 AM EDT Pending Prescriptions: Disp Refills Lenalidomide 10 MG Oral Capsule (Revlimid)* 0 Sig: TAKE 1 CAPSULE BY MOUTH 1 TIME A DAY FOR 21 DAYS ON THEN 7 DAYS OFF documented in this encounter Plan of Treatment Upcoming Encounters Date Type Specialty Care Team Description 05/24/2023 Scheduled Telephone Pharmacy [facility] Hem/Onc Tech [address] [place], [place] [id number] 05/25/2023 Laboratory Laboratory [place], Lab Scenery [address] [place] [address] 05/25/2023 Hem/Onc Treatment [facility]ology [place], Chair 6 Hem Onc Scenery [address] [facility] [address] 06/14/2023 Office Visit Pharmacy Pharmacist, [facility] Sp [address] [facility] [address] 06/14/2023 Office Visit Family Medicine Landen Macario DO [address] [place] [address] 06/22/2023 Laboratory Laboratory [place] Lab Scenery [address] [facility] [address] 06/22/2023 Office Visit Hematology Oncology Chito Garcia MD [address] [place] [address] 06/22/2023 Hem/Onc Treatment Hematology [place] [place], Chair [address] Hem Onc Scenery [address] [facility] [place] [address] 07/14/2023 Office Visit Palliative Medicine Nan Campos MD [address] [place], [place] [address] [address] 07/28/2023 Office Visit Cardiology Cyril Johns PA-C [address] [place] [address] 10/01/2023 [facility] [address] [place] [address] Health Maintenance Due Date Last Done Comments [...] encounter Medical Devices Implanted Type Area Manager Drug Device Identifier Shelf Expiration Date Model / Serial / Lot Lens Intraoc 24.0 - [id number] - [id number] Implanted:Qty: 1 on 08/16/2018 by Adan Colon MD at OR [facility] Right: Eye [employer] 11/17/2022 [id number] / [id number] / [id number] Lens Intraoc 24.0 - [id number] - [id number] Implanted:Qty: 1 on 08/23/2018 by Adan Colon MD at OR [facility] Left: Eye [employer]CH [employer] LOMB 06/17/2023 [id number] / [id number] / [id number] Screw [employer] [id number] - [id number] Implanted:Qty: 1 on 12/07/2019 by Amilcar Saavedra MD at OR [facility] Left: Foot EXACTECH [id number] / / documented as of this encounter [...] and were consensually agreed upon. Care Teams Digital Operations Analyst Relationship Specialty Start Date End Date Landen Macario, DO 200 [place] [address] PCP - General Family Medicine 02/09/22 documented as of this encounter
--- OUTSIDE RECORDS SUMMARY | 2023-08-26 18:16 | External Medical Summary | Summary of Care ---
Author Name Unknown Organization [facility] Address [address] [place] [address] Phone [phone] Care Team Providers Care Cullet Crusher Name Role Phone Landen Macario DO Primary Care Provider [phone] Encounter Details Date Type Department Care Team Description 05/20/2023 Orders Only Hematology/Oncology, [facility] [address] [place], [place] [id number] Chito Garcia MD [address] [place] [address] Allergies Active Allergy Reactions Severity Noted Date Comments Tizanidine 06/27/2021 documented as of this encounter (statuses as of 05/20/2023) Medications Medication Sig Dispensed Refills Start Date [...] or Wheezing. 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 Metastatic cancer to bone 10/22/2021 Acute systolic congestive heart failure 10/08/2021 Multiple myeloma not having achieved rem ission 08/28/2021 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 09/08/2019 Gastroesophageal reflux disease without esophagitis 03/15/2019 senior care (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 of insulin 11/25 Paroxysmal [...] as of this encounter (statuses as of 05/20/2023) Resolved Problems Problem Noted Date Resolved Date [...] 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,rt presybeterian 07/05/2002 0 05/26/2018 Rosacea 07/28/2001 05/26/2018 LOC PRIM [id number] 07/28/2001 05/26/20 18 documented as of this encounter (statuses as of 05/20/2023) Immunizations Name Administration Dates Next Due COVID-19 [...] Care Team Description 05/24/2023 Scheduled Telephone Pharmacy Joey [place] Hem/Onc Tech [address] [facility] [place] [address] 05/25/2023 Laboratory Laboratory [place], Lab Scenery [address] [place] [address] 05/25/2023 Hem/Onc Treatment Hematology Oncology [place], Chair 6 Hem Onc Scenery [address] [place] [address] 06/14/2023 Office Visit Pharmacy Pharmacist1, [facility] [address] [place] [address] 06/14/2023 Office Visit Family Medicine Landen Macario DO [address] [place] [address] 06/22/2023 Laboratory Laboratory [place], Lab Scenery [address] [place] [address] 06/22/2023 Office Visit Hematology Oncology Chito Garcia MD [address] [place] [address] 06/22/2023 Hem/Onc Treatment Hematology Oncology [place], Chair 4 Hem Onc Scenery [address] [place] [address] 07/14/2023 Office Visit Palliative Medicine Nan Campos MD [address] [place] [phone] 07/28/2023 Office Visit Cardiology Cyril Johns PA-C [address] [place] [address] 10/01/2023 Cardiac Studies Cardiology Fredy Figueroa [facility] [address] [place] [address] Health Maintenance Due Date Last Done Comments [...] 07/08/2021, Additional history exists GFR 04/27/2024 04/27/2023, 0612/2022, 03/02/2023, Additional history exists DTaP,Tdap,and Td Vaccines [...] this encounter Medical Devices Implanted Type Area Level Vial Inspector And Tester Device Identifier Shelf Expiration Date Model / Serial / Lot Lens Intraoc 24.0 - [id number] - [id number] Implanted:Qty: 1 on 08/16/2018 by Adan Colon MD at OR [facility] Right: Eye BAUSCH & LOMB 11/17/2022 [id number] / [id number] / [id number] Lens Intraoc 24.0 - [id number] - [id number] Implanted:Qty: 1 on 08/23/2018 by Adan Colon MD at OR [facility] Left: Eye BAUSCH & LOMB 06/17/2023 [id number] / [id number] / [id number] Screw [employer] 3.3dqm00qt - [id number] Implanted:Qty: 1 on 12/07/2019 by Amilcar Saavedra MD at OR [facility] Left: Foot EXACTECH [id number] / / documented as of this encounter [...] and were consensually agreed upon. Care Teams Cullet Crusher Relationship Specialty Start Date End Date Landen Macario, DO [address] [place] [address] PCP - General Family Medicine 02/09/22 documented as of this encounter
--- OUTSIDE RECORDS SUMMARY | 2023-08-26 18:16 | External Medical Summary | Summary of Care ---
Author Name Unknown Organization [facility] Address [address] [place] [address] Phone [phone] Care Team Providers Care Tissue Packer Name Role Phone AhsanYassine nava Primary Care Provider [phone] Reason for Visit * Reason Comments eRx-Medication Refill Encounter Details Date Type Department Care Team Description 05/15/2023 Refill Family Practice [facility] 200 [facility] [place] [address] Colleen Nieves DO 200 [facility] [place] [address] Allergies Active Allergy Reactions Severity Noted Date Comments Tizanidine 06/27/2021 documented as of this encounter (statuses as of 05/17/2023) Medications Medication Sig Dispensed Refills Start Date [...] or Wheezing. 18 g 3 04/03/2022 Active I98-Pzjuzb 1 MG Oral Tablet Chewable (Methylcobalamin) Take by mouth daily . 0 Active Digoxin 125 MCG Oral Tablet (Lanoxin) Take 1 Tablet by mouth every other day. 90 Tablet 3 05/25/2022 Active Eliquis 5 MG Oral Tablet (Apixaban) [...] 1 Each 3 03/04/2023 Active Dexcom G7 Perfume Compounder Device Use to check blood sugar 1 [...] BEFORE BEDTIME 180 Tablet 1 05/17/2023 Active Potassium Chloride Raven ER 20 MEQ Oral Tablet Extended Release (Klor-Con M20) Take 1 Tablet by mouth in the morning and 1 Tablet before bedtime. 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 Metastatic cancer to bone 10/22/2021 Acute systolic congestive heart failure 10/08/2021 Multiple myeloma not having achieved rem ission 08/28/2021 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 09/08/2019 Gastroesophageal reflux disease without esophagitis 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 11/25 Paroxysmal atrial [...] as of this encounter (statuses as of 05/17/2023) Resolved Problems Problem Noted Date Resolved Date [...] 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,rt muslim 07/05/2002 0 05/26/2018 Rosacea 07/28/2001 05/26/2018 LOC PRIM [id number] 07/28/2001 05/26/20 18 documented as of this encounter (statuses as of 05/17/2023) Immunizations Name Administration Dates Next Due COVID-19 [...] encounter Miscellaneous Notes * Telephone Encounter - Liz Jacinto RPh - 05/17/2023 10:11 AM EDTSigned Prescriptions: Disp Refills Klor-Con M20 20 MEQ Oral Tablet Extended R*180 Ta*1 Sig: TAKE 1 TABLET BY MOUTH IN THE MORNING AND BEFORE BEDTIMEAuthorizing Provider: YASSINE ALBERT User: LIZ JACINTO documented in this encounter Plan of Treatment Upcoming Encounters Date Type Specialty Care Team Description 05/24/2023 Scheduled Telephone Pharmacy [facility] Hem/Onc Tech [address] [facility] [place] [id number] 05/25/2023 Laboratory Allen Jaimes Scenery 200 [facility] [place] [address] 05/25/2023 Hem/Onc Treatment Hematology Oncology [place], Chair 6 Hem Onc Scenery 200 [facility] [place] [facility] [place] [address] 06/14/2023 Office Visit Pharmacy Pharmacist, [facility] 200 [facility] [place] [address] 06/14/2023 Office Visit Family Medicine Yassine Albert DO [address] [place] [address] 06/22/2023 Laboratory Álvaro Ramirez Lab Scenery 200 [facility] [place] [address] 06/22/2023 Office Visit Hematology Oncology Chito Garcia MD [address] [place] [address] 06/22/2023 Hem/Onc Treatment Hematology Oncology [place], Chair 4 Hem Onc Scenery [address] [place] [facility] [address] 07/14/2023 Office Visit Palliative Medicine Nan Campos MD [address] [place] [address] [place] [address] 07/28/2023 Office Visit Cardiology Cyril Johns PA-C [address] [place] [address] 10/01/2023 Cardiac Studies Cardiology [facility] [address] [place] [address] Health Maintenance Due Date Last Done Comments [...] 07/21/2021, Additional history exists HbA1c 09/02/2023 03/02/2023, 03, 10/08/2022, Additional history exists DIABETES-EYE EXAM 09/09/2023 [...] this encounter Medical Devices Implanted Type Area Senior Office Assistant Device Identifier Shelf Expiration Date Model / Serial / Lot Lens Intraoc 24.0 - [id number] - [id number] Implanted:Qty: 1 on 08/16/2018 by Adan Colon MD at OR [facility] Right: Eye BAUSCH & LOMB 11/17/2022 [id number] / [id number] / [id number] Lens Intraoc 24.0 - [id number] - [id number] Implanted:Qty: 1 on 08/23/2018 by Adan Colon MD at OR [facility] Left: Eye BAUSCH & LOMB 06/17/2023 [id number] / [id number] / [id number] Screw [employer] 3.0arf49do - [id number] Implanted:Qty: 1 on 12/07/2019 by Amilcar Saavedra MD at OR [facility] Left: Foot EXACTECH [id number] / / documented as of this encounter [...] and were consensually agreed upon. Care Teams Tissue Packer Relationship Specialty Start Date End Date Yassine Albert, DO 200 [facility] [address] PCP - General Family Medicine 02/09/22 documented as of this encounter
--- OUTSIDE RECORDS SUMMARY | 2023-08-26 18:16 | External Medical Summary | Summary of Care ---
Author Name Unknown Organization [facility] Address [address] [place] [address] Phone [phone] Care Team Providers Care Contract Administration Manager Name Role Phone Yassine Albert DO Primary Care Provider [phone] Reason for Visit * Reason Onset Date Comments Medication Refill 05/18/2023 Encounter Details Date Type Department Care Team Description 05/18/2023 Refill Family Practice [facility] 200 [facility] [place] [address] Yassine Albert DO [address] [place] [address] Allergies Active Allergy Reactions Severity Noted Date Comments Tizanidine 06/27/2021 documented as of this encounter (statuses as of 05/19/2023) Medications Medication Sig Dispensed Refills Start Date [...] or Wheezing. 18 g 3 04/03/2022 Active C99-Szuiyq 1 MG Oral Tablet Chewable (Methylcobalamin) Take [...] 1 Each 3 03/04/2023 Active Dexcom G7 Precision Lens Grinder Device Use to check blood sugar 1 [...] 05/05/2023 Active Lenalidomide 10 MG Oral Capsule (Revlimid)Indicati [...] other day. 90 Tablet 3 05/19/2023 Active Digoxin 125 MCG Oral Tablet (Lanoxin) Take 1 Tablet by mouth every other day. 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 Metastatic cancer to bone 10/22/2021 Acute systolic congestive heart failure 10/08/2021 Multiple myeloma not having achieved rem ission 08/28/2021 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 09/08/2019 Gastroesophageal reflux disease without esophagitis 03/15/2019 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 11/25 Paroxysmal atrial [...] as of this encounter (statuses as of 05/19/2023) Resolved Problems Problem Noted Date Resolved Date [...] 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,rt holiness 07/05/2002 0 05/26/2018 Rosacea 07/28/2001 05/26/2018 LOC PRIM [id number] 07/28/2001 05/26/20 18 documented as of this encounter (statuses as of 05/19/2023) Immunizations Name Administration Dates Next Due COVID-19 mRNA, LNP-s, No Pre serve, 2-Dose Series (Moderna) 08/27/2021,01/04/2021,12/02/2020 Covid-19 Mrna, Lnp-s, No Pre serve, Booster (Moderna) 05/07/2022 Covid-19, Mrna, Lnp-s, Pf, B ivalent, 30 Mcg, IM, 12 yrs and above (Okairos) 09/04/2022 H1N1 2009 Influenza, IM 09/22/2009 PPD [...] encounter Miscellaneous Notes * Telephone Encounter - Yassine Albert DO - 05/19/2023 4:40 PM EDTSigned Prescriptions: Disp Refills Digoxin 125 MCG Oral Tablet (Lanoxin) 90 Tab*3 Sig: Take 1 Tablet by mouth every other day. Authorizing Provider: YASSINE ALBERT * Telephone Encounter - Lesly Au LPN - 05/19/2023 2:11 PM EDT Pending Prescriptions: Disp Refills Digoxin 125 MCG Oral Tablet (Lanoxin) 90 Tab*3 Sig: Take 1 Tablet by mouth every other day. * Telephone Encounter - JENNIE Shannon - 05/18/2023 1:33 PM EDT Did you pend patient's preferred pharmacy and medication before forwarding?yes Pharmacy: [id number] [address] [facility] Pending Prescriptions: Disp Refills Digoxin 125 MCG Oral Tablet (Lanoxin) 90 Tab*3 Sig: Take 1 Tablet by mouth every other day. Last Visit: 12/07/2022 (in office), Visit date not found (telemedicine) Next Visit: 06/14/2023 If no future appointments scheduled, and last appointment is greater than a year ago, please schedule patient for a follow-up appointment Last date the medication was ordered: 05.25.22 Is this request for a controlled substance?No Urine Drug Screen:No results found. However, due to the size of the patient record, not all encounters were searched. Please check Results Review for a complete set of results. Patient Phone Numbers Labs: Lab Results Component Value Date/Time CREAT 1.4 (H) 04/27/2023 07:31 AM CREAT 1.25 10/10/2021 12:00 AM CREAT 1.1 09/04/2020 10:57 AM POTASSIUM 4.9 04/27/2023 07:31 AM POTASSIUM 4.6 10/10/2021 12:00 AM POTASSIUM 4.5 09/04/2020 10:57 AM TSH 1.93 01/26/2022 11:59 AM TSH 1.46 09/16/2020 12:55 PM LDLCALC 37 09/04/2020 10:57 AM LDLDIRECT 49 05/12/2022 09:00 AM LDLDIRECT NOT APPLICABLE 09/04/2020 10:57 AM LDLDIRECT 57 01/06/2018 10:48 AM ALT 22 04/27/2023 07:31 AM ALT 30 09/04/2020 10:57 AM HGBA1C 5.3 03/02/2023 08:41 AM HGBA1C 6.5 (H) 09/16/2020 12:55 PM documented in this encounter Plan of Treatment Upcoming Encounters Date Type Specialty Care Team Description 05/24/2023 Scheduled Telephone Pharmacy [place] [facility] Hem/Onc Tech [address] [facility] [place] [address] 05/25/2023 Laboratory Laboratory [place] Lab Scenery [address] [facility] [address] 05/25/2023 Hem/Onc Treatment Hematology Oncology [place], Chair 6 Hem Onc Scenery [address] [place] [address] 06/14/2023 Office Visit Pharmacy Pharmacist, [facility] Sp [address] [place] [address] 06/14/2023 Office Visit Family Medicine Yassine Albert DO [address] [place] [address] 06/22/2023 Laboratory Laboratory [place] Lab Scenery [address] [place] [address] 06/22/2023 Office Visit Hematology Oncology Chito Garcia MD [address] [place] [address] 06/22/2023 Hem/Onc Treatment Hematology Oncology [place], Chair 4 Hem Onc Scenery [address] [place] [address] 07/14/2023 Office Visit Palliative Medicine Nan Campos MD 400 [facility] [place] [phone] 07/28/2023 Office Visit Cardiology Cyril Johns PA-C [address] [place] [address] 10/01/2023 [facility] [address] [place] [address] Health Maintenance Due Date Last Done Comments [...] this encounter Medical Devices Implanted Type Area Well Site Drilling Engineer Device Identifier Shelf Expiration Date Model / Serial / Lot Lens Intraoc 24.0 - [id number] - [id number] Implanted:Qty: 1 on 08/16/2018 by Adan Colon MD at OR [facility] Right: Eye BAUSCH & LOMB 11/17/2022 [id number] / [id number] / [id number] Lens Intraoc 24.0 - [id number] - [id number] Implanted:Qty: 1 on 08/23/2018 by Adan Colon MD at OR [facility] Left: Eye BAUSCH & LOMB 06/17/2023 [id number] / [id number] / [id number] Screw [employer] 3.9wei61gj - [id number] Implanted:Qty: 1 on 12/07/2019 by Amilcar Saavedra MD at OR [facility] Left: Foot EXACTECH [id number] / / documented as of this encounter [...] and were consensually agreed upon. Care Teams Contract Administration Manager Relationship Specialty Start Date End Date Yassine Albert, DO 200 [facility] [address] PCP - General Family Medicine 02/09/22 documented as of this encounter
--- OUTSIDE RECORDS SUMMARY | 2023-08-26 18:16 | External Medical Summary ---
Author Name Unknown Address Unknown Organization K01:[facility] [place] [address] Laboratory Report Ordering Provider Test Date Status ANIBAL FIERRO 05/25/2023 07:54:16 Final Observation Date Value Abnormality Reference (Units ) Status [place] light chains, Free, Serum 05/25/2023 07:54:16 13.52 3.30-19.40 (mg/L) Final Lambda light chains, free, Serum 05/25/2023 07:54:16 10.61 5.71-26.30 (mg/L) Final KAPPA LAMBDA FLC RATIO 05/25/2023 07:54:16 1.27 0.26-1.65 Final Performing Location [facility] [place] [address]
--- OUTSIDE RECORDS SUMMARY | 2023-08-26 18:16 | External Medical Summary | Summary of Care ---
Author Name Unknown Organization [facility] Address [address] [place] [address] Phone [phone] Care Team Providers Care Hot Mill Shearer Name Role Phone Landen Macario Primary Care Provider [phone] Reason for Visit * Reason Onset Date Comments Medication Refill 05/24/2023 Encounter Details Date Type Department Care Team Description 05/24/2023 Scheduled Telephone Pharmacy Hematology Oncology [facility] [address] [place], [place] [id number] [facility] Hem/Onc [facility] [address] [place] [address] Allergies Active Allergy Reactions Severity Noted Date Comments Tizanidine 06/27/2021 documented as of this encounter (statuses as of 05/24/2023) Medications Medication Sig Dispensed Refills Start Date [...] or Wheezing. 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 Metastatic cancer to bone 10/22/2021 Acute systolic congestive heart failure 10/08/2021 Multiple myeloma not having achieved rem ission 08/28/2021 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 09/08/2019 Gastroesophageal reflux disease without esophagitis 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 11/25 Paroxysmal atrial [...] as of this encounter (statuses as of 05/24/2023) Resolved Problems Problem Noted Date Resolved Date [...] 0 05/26/2018 Rosacea 07/28/2001 05/26/2018 LOC PRIM [id number] 07/28/2001 05/26/20 18 documented as of this encounter (statuses as of 05/24/2023) Immunizations Name Administration Dates Next Due COVID-19 mRNA, LNP-s, No Pre serve, 2-Dose Series (Moderna) 08/27/2021,01/04/2021,12/02/2020 Covid-19 Mrna, Lnp-s, No Pre serve, Booster (Moderna) 05/07/2022 Covid-19, Mrna, Lnp-s, Pf, B ivalent, 30 Mcg, IM, 12 yrs and above ([employer]) 09/04/2022 H1N1 2009 Influenza, IM 09/22/2009 PPD [...] encounter Miscellaneous Notes * Telephone Encounter - Mary Peña CPhT - 05/24/2023 10:12 AM EDT [facility] technicians have not been added to Dr. Garcia's [employer] portal for ordering. Mary Peña Supervisor [facility] 05/24/2023, 10:13 AM Time Spent on Encounter: < 5 minutes documented in this encounter Plan of Treatment Upcoming Encounters Date Type Specialty Care Team Description 05/25/2023 Laboratory Laboratory [place], Lab Scenery [address] [place] [address] 05/25/2023 Hem/Onc Treatment Hematology Oncology [place], Chair 6 Hem Onc Scenery [address] [place] [address] 06/14/2023 Office Visit Pharmacy Pharmacist, [facility] [address] [place] [address] 06/14/2023 Office Visit Family Medicine Landen Macario DO [address] [place] [address] 06/22/2023 Laboratory Laboratory [place], Lab Scenery [address] [place] [address] 06/22/2023 Office Visit Hematology Oncology Chito Garcia MD [address] [place] [address] 06/22/2023 Hem/Onc Treatment Hematology Oncology [place], Chair 4 Hem Onc Scenery [address] [place] [address] 06/22/2023 Scheduled Telephone Pharmacy [facility] Tech [address] [facility] [id number] 07/14/2023 Office Visit Palliative Medicine Nan Campos MD 400 [facility] [place] [address] 07/28/2023 Office Visit Cardiology Cyril Johns PA-C [address] [place] [address] 10/01/2023 Cardiac Studies Cardiology [place], [address] [place] [address] Health Maintenance Due Date Last Done Comments [...] 07/21/2021, Additional history exists HbA1c 09/02/2023 03/02/2023, 03/2 , 10/08/2022, Additional history exists DIABETES-EYE EXAM 09/09/2023 [...] this encounter Medical Devices Implanted Type Area Automotive Parts Counter Person Device Identifier Shelf Expiration Date Model / Serial / Lot Lens Intraoc 24.0 - [id number] - [id number] Implanted:Qty: 1 on 08/16/2018 by Adan Colon MD at OR [facility] Right: Eye BAUSCH & LOMB 11/17/2022 [id number] / [id number] / [id number] Lens Intraoc 24.0 - [id number] - [id number] Implanted:Qty: 1 on 08/23/2018 by Adan Colon MD at OR [facility] Left: Eye BAUSCH & LOMB 06/17/2023 [id number] / [id number] / [id number] Screw [employer] 3.2ocz36au - [id number] Implanted:Qty: 1 on 12/07/2019 by Amilcar Saavedra MD at OR [facility] Left: Foot EXACTECH [id number] / / documented as of this encounter [...] and were consensually agreed upon. Care Teams Hot Mill Shearer Relationship Specialty Start Date End Date Landen Macario, DO [address] [place] [address] PCP - General Family Medicine 02/09/22 documented as of this encounter
--- OUTSIDE RECORDS SUMMARY | 2023-08-26 18:17 | External Medical Summary | Summary of Care ---
Author Name Unknown Organization [facility] Address [address] [place] [address] Phone [phone] Care Team Providers Care Architectural Engineer Name Role Phone Landen Macario Primary Care Provider [phone] Reason for Visit * Reason Comments Follow Up Encounter Details Date Type Department Care Team Description 05/05/2023 Office Visit Palliative Medicine [facility] [address] [place] [address] Nan Campos MD [address] [place] [id number] Cancer related pain*; Palliative care encounter; Metastatic cancer to bone (HCC) Allergies Active Allergy Reactions Severity Noted Date Comments Tizanidine 06/27/2021 documented as of this encounter (statuses as of 05/05/2023) Medications Medication Sig Dispensed Refills Start Date [...] or Wheezing. 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 18 mL 3 03/30/2023 Active Lenalidomide 10 MG Oral Capsule (Revlimid)Indicati ons:Multiple myeloma not having achieved remission (HCC) TAKE 1 CAPSULE BY MOUTH 1 TIME A DAY FOR 21 DAYS ON THEN 7 DAYS OFF 21 Capsule 0 04/19/2023 Active BD Pen Needle Short U/F 31G X 8 MM (Insulin Pen Needle)Indications :Type 2 diabetes mellitus with hemoglobin A1c goal of less than 8.0% (HCC) USE DIRECTED WITH insulins 500 Each 3 04/18/2023 Active Morphine Sulfate 15 MG Oral Tablet (Msir)Indications: Cancer related pain Take 1 Tablet by mouth every 4 hours as needed for Pain, Severe. 120 Tablet 0 05/05/2023 Active Morphine Sulfate 15 MG Oral Tablet (Msir)Indications: Cancer related pain Take 1 Tablet by mouth every 4 hours as needed for Pain, Severe. 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 Metastatic cancer to bone 10/22/2021 Acute systolic congestive heart failure 10/08/2021 Multiple myeloma not having achieved rem ission 08/28/2021 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 09/08/2019 Gastroesophageal reflux disease without esophagitis 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 11/25 Paroxysmal [...] as of this encounter (statuses as of 05/05/2023) Resolved Problems Problem Noted Date Resolved Date [...] update of inactive term lentigo maligna,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/05/2002 0 05/26/2018 Rosacea 07/28/2001 05/26/2018 LOC PRIM [id number] 07/28/2001 05/26/20 18 documented as of this encounter (statuses as of 05/05/2023) Immunizations Name Administration Dates Next Due COVID-19 [...] Sign Reading Time Taken Comments Blood Pressure 136/71 05/05/2023 1:53 PM EDT Pulse 87 05/05/2023 1:53 PM EDT Temperature 35.9 C (96.7 F) 05/05/2023 1:53 PM ED T Respiratory Rate 16 05/05/2023 1:53 PM EDT Oxygen Saturation 92% 05/05/2023 1:53 PM EDT Inhaled Oxygen Concentration - - Weight 72 kg (158 lb 12.8 oz) 05/05/2023 1:53 PM EDT Height - - Body Mass Index 21.69 01/11/2023 3:38 PM EDT documented in this encounter Patient Instructions * Patient Instructions* Francesca Becerra LPN - 05/05/2023 1:49 PM EDT Our Palliative Medicine Clinic is available Wednesday through Wednesday during business hours, so we are unavailable on weekends and holidays. Please ensure that you request refills early in the week as itmay take 1-2 days for them to be addressed and filled, for authorizations to be approved, or for the pharmacy to order them if needed. You can contact our office at [phone], which is our clinic in [place], or you can message us on shopp. If you have an emergency outside of these hours, we recommend calling your primary care clinic, Oncology office, or going to the ER if you have a medical emergency. documented in this encounter Progress Notes * Nan Campos MD - 05/05/2023 2:01 PM EDT Palliative Medicine Outpatient Progress Note [facility] Palliative Medicine Outreach [address] [place] [address] Name: Dev Hernandez Date: 05/05/2023 HPI: Dev Hernandez is a 77 year old male with multiple myeloma seen in follow-up for goals of care and symptom management. Doing OK overall Has more sensation in the R leg over L, had neuropathy in the L leg and Taking MS IR 2-3 x/day - usually helping for pain in legs ROS: See HPI. All others negative. Past Medical History: Diagnosis Date Atrial fibrillation (HCC) post op COPD (chronic obstructive pulmonary disease) (HCC) Coronary atherosclerosis 10/18/1993 Other and unspecified malignant neoplasm of skin of other and unspecified parts of face Primary localized osteoarthrosis, lower leg 10/18/1996 hip Pulmonary arterial hypertension (HCC) Rosa[place]wana SHx: No change FHx: No change Decision-making Capacity: Does Patient have Decisional Capacity? y Does Patient have a Healthcare Agent? Y, Advanced Care Planning (see ACP Tab): AD in EMR: no POLST in EMR: yes DNR LIMITED Examination: BP 136/71 | Pulse 87 | Temp 35.9 C (96.7 F) | Resp 16 | Wt 72 kg (158 lb 12.8 oz) | SpO2 92% | BMI 21.69 kg/m | BSA 1.91 m Constitutional: no acute distress, chronically ill HENT: normocephalic, atraumatic. Eyes: anicteric, sclera and conjunctiva normal. Neck: no stridor Chest: normal respiratory effort Abdominal: nondistended Extremities: no edema Data Review: External notes reviewed: PCP notes reviewed, Hem onc notes reviewed Lab / Imaging Results: Cr 1.4, mildly elevated History obtained from: pt Discussion with other team members: no ASSESSMENT/PLAN: Dev Hernandez is a 77 year old male seen in follow-up for goals of care and pain and symptom management. 1. Multiple myeloma -F/u with Dr Garcia 2. Cancer related pain, in legs -Refilled MSIR 15mg - back up to taking about 2-3x/day -I have reviewed the patients controlled substance dispensing history in the Prescription DrugMonitoring Program in compliance with the [facility] regulations before prescribing a controlled substance. 3. ACP - DNR/DNI if admitted - Ok for LIMITED tx - POLST completed previously Follow up in 2 mo Nan Campos MD Palliative Medicine Physician [facility] Office: [phone] 05/05/2023 * Francesca Becerra LPN - 05/05/2023 1:53 PM EDT Return Palliative Visit Pain: no pain today Takes the morphine 1-2 times daily Needs refill Last BM: today. Takes senna and miralax PRN. Does not have BM every day Other issues: get hand cramps recently-possibly d/t chemo pill documented in this encounter Plan of Treatment Upcoming Encounters Date Type Specialty Care Team Description 05/24/2023 Scheduled Telephone Pharmacy [facility] Hem[facility]Onc Tech [address] [place] [address] 05/25/2023 Laboratory Laboratory [facility], [address] Scenery [address] [place] [id number] 05/25/2023 Hem/Onc Treatment Hematology Oncology [place], Chair 6 Hem Onc Scenery [address] [place] [address] 06/14/2023 Office Visit Pharmacy Pharmacist, [facility] [address] [place] [address] 06/14/2023 Office Visit Family Medicine Landen Macario DO [address] [place] [address] 06/22/2023 Laboratory Laboratory [facility] Scenery [address] [place] [address] 06/22/2023 Office Visit Hematology Oncology Chito Garcia MD [address] [place] [address] 06/22/2023 Hem/Onc Treatment Hematology Oncology [place], Chair 4 Hem Onc Scenery [address] [place] [id number] 07/14/2023 Office Visit Palliative Medicine Nan Campos MD [address] [place], [place] [address] [phone] 07/28/2023 Office Visit Cardiology Cyril Johns PA-C [address] [place] [address] 10/01/2023 Cardiac Studies Cardiology [facility] [address] [facility] [place] [address] Health Maintenance Due Date Last Done Comments [...] this encounter Medical Devices Implanted Type Area Bombsight Specialist Device Identifier Shelf Expiration Date Model / Serial / Lot Lens Intraoc 24.0 - [id number] - [id number] Implanted:Qty: 1 on 08/16/2018 by Adan Colon MD at OR [facility] Right: Eye [employer] 11/17/2022 [id number] / [id number] / [id number] Lens Intraoc 24.0 - [id number] - [id number] Implanted:Qty: 1 on 08/23/2018 by Adan Colon MD at OR [facility] Left: Eye [employer] 06/17/2023 [id number] / [id number] / [id number] Screw [employer] [id number] - [id number] Implanted:Qty: 1 on 12/07/2019 by Amilcar Saavedra MD at [facility] Left: Foot [employer] [id number] / / documented as of this encounter Visit Diagnoses Diagnosis Cancer related pain- Primary Neoplasm related pain (acute) (chronic) Palliative care encounter Encounter for palliative care Metastatic cancer to bone (HCC) Secondary malignant [...] and were consensually agreed upon. Care Teams Architectural Engineer Relationship Specialty Start Date End Date Newhouser, Landen D, DO [address] [place] [address] PCP - General Family Medicine 02/09/22 documented as of this encounter"
--- OUTSIDE RECORDS SUMMARY | 2023-08-26 18:17 | External Medical Summary | Summary of Care ---
Author Name Unknown Organization [facility] Address [address] [place] [place] [place] [address] Phone [phone] Care Team Providers Care Manager Reporting Name Role Phone Landen Macario Primary Care Provider [phone] Reason for Visit * Reason Comments Chemotherapy Chemo/recheck Encounter Details Date Type Department Care Team Description 04/27/2023 Office Visit Hematology/Oncology [facility] [place] [address] [place] [address] Chito Garcia MD [address] [place] [address] Multiple myeloma not having achieved remission (HCC)* Allergies Active Allergy Reactions Severity Noted Date Comments Tizanidine 06/27/2021 documented as of this encounter (statuses as of 04/27/2023) Medications Medication Sig Dispensed Refills Start Date [...] or Wheezing. 18 g 3 04/03/2022 Active L28-[id number] 1 MG Oral Tablet Chewable (Methylcobalamin) Take [...] for Nausea. 30 Tablet 2 01/27/2023 Active Morphine Sulfate 15 MG Oral Tablet (Msir)Indications:C ancer related pain Take 1 Tablet by mouth every 4 hours as needed for Pain, Severe. 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 Metastatic cancer to bone 10/22/2021 Acute systolic congestive heart failure 10/08/2021 Multiple myeloma not having achieved rem ission 08/28/2021 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 09/08/2019 Gastroesophageal reflux disease without esophagitis 03/15/2019 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 11/25 Paroxysmal atrial [...] as of this encounter (statuses as of 04/27/2023) Resolved Problems Problem Noted Date Resolved Date [...] 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,rt hoahaoism 07/05/2002 0 05/26/2018 Rosacea 07/28/2001 05/26/2018 LOC PRIM [id number] 07/28/2001 05/26/20 18 documented as of this encounter (statuses as of 04/27/2023) Immunizations Name Administration Dates Next Due COVID-19 mRNA, LNP-s, No Pre serve, 2-Dose Series (Moderna) 08/27/2021,01/04/2021,12/02/2020 Covid-19 Mrna, Lnp-s, No Pre serve, Booster (Moderna) 05/07/2022 Covid-19, Mrna, Lnp-s, Pf, B ivalent, 30 Mcg, IM, 12 yrs and above ([place] [employer]) 09/04/2022 H1N1 2009 Influenza, IM 09/22/2009 PPD [...] Sign Reading Time Taken Comments Blood Pressure 118/61 04/27/2023 8:01 AM EDT Pulse 86 04/27/2023 8:01 AM EDT Temperature 36.8 C (98.3 F) 04/27/2023 8:01 AM ED T Respiratory Rate 16 04/27/2023 8:01 AM EDT Oxygen Saturation 99% 04/27/2023 8:01 AM EDT Inhaled Oxygen Concentration - - Weight 66.8 kg (147 lb 4.8 oz) 04/27/2023 8:01 A M EDT Height - - Body Mass Index 20.12 01/11/2023 3:38 PM EDT documented in this encounter Progress Notes * Chito Garcia MD - 04/27/2023 8:27 AM EDT Outpatient Consult Note Data Source: Patient, Epic record. Data Source: Patient, Epic record. 04/27/2023 8:27 AM Dev Hernandez [id number] 77 year old Patient Encounter: HEMATOLOGY/ONCOLOGY [facility] Cancer Diagnosis: Multiple myelomaIgG kapp[place]ith lytic bone lesions. Current Treatment: Resumed Treatment on 09/17/22 withDarzalex plus Revlimid and Decadron Previous Treatment: VRd - 09/15/21-05/06/22 Revlimid plus Velcade and Decadron-treatment on hold becauseof other comorbid condition. Hewas also evaluated for the stem cell transplant [...] left side. Patient was seen by Dr. Shelton had CT scan of the abdomen pelvis done which revealed Degenerate changes of the visualized spine,total left hip replacement, bilateral lower chronic rib fractures, likely pathological,multiple lytic lesions throughout the visualized axial skeleton, cortical breakthrough involving a few lytic lesions, some with associated soft tissue component, such as the bilateral superior iliac wings, left pubic symphysis, left proximal femoral head, L4 and L5 vertebral bodies. Pathological fractures of right T11 and left L4 transverse processes,No renal calculi or hydronephrosis. Mild cortical bulging of the interpolar region of the right kidney, indeterminate. Findings may represent a mass lesion versus extravasated lobulation. Review of peripheral blood smear shows: Smear Interpretation Macrocytic anemia, mild. Negative for evidence of dysplasia or malignancy. Negative for evidence of specific infection. Renal ultrasoundwas done on 07/09/2021 which shows bilateral renal cysts with no suspicious renallesion. Patient lost about 7 lb last 10 [...] in adequate numbers. Granulopoiesis is adequate and technical inspector. 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 M:E ratio is approximately [...] kappa paraprotein. Also imaging studies comment on multipleosseous lesions. The amount of paraprotein is not in keeping with the number of plasma cells observed in this study. Thus ahyposecretory or non secretory multiple myeloma are considerations. Cytogenetics Oncology Chromosome Analysis:Karyotype: 46,XY[20] FISH Analysis Plasma Cell Myeloma Panel [...] was done on 02/16/2022 revealed excellent response withInterval sclerosis and resolution of metabolic activity within widespread osteolytic lesions. Patient was evaluated by the transplant team and because of his other comorbid condition and poor lung function,he is not a candidate for high-dose chemotherapy and stem cell transplant. He was admitted to the hospital on 04/22/2022 and discharged on 05/04/2022. He was admitted with generalized weakness shortness of breath, episode of fall, chills. Patient had a CT scan done which was negative for pulmonary embolism. He had low blood pressure a question of infection and was treated with antibiotics.He was discharged on oxygen supplement and currently at [facility] Interval History: Overall clinically he is stable without any new symptoms of complain. He is no side effects toxicity from the treatment. Denies any fever, night sweats, new bone pain, nausea, vomiting, diarrhea, newbone pain. He continues to issues with the neuropathy. LABS/IMAGING: Results for orders placed or performed in visit on 04/27/23 PHOSPHORUS Result Value Ref Range Phosphorus 3.6 2.5 - 4.8 mg/dL COMPREHENSIVE METABOLIC PANEL Result Value Ref Range BUN 19 6 - 20 mg/dL Creatinine 1.4 (H) 0.6 - 1.2 mg/dL Estimated Glomerular Filtration Rate 51 (L) >=60 mL/min Sodium 140 135 - 146 mmol/L Potassium 4.9 3.5 - 5.1 mmol/L Chloride 103 98 - 107 mmol/L CO2 23 22 - 32 mmol/L Anion Gap 14 7 - 15 mmol/L Glucose 125 (H) 70 - 120 mg/dL Albumin 4.2 3.8 - 5.0 g/dL AST 17 10 - 50 U/L Alkaline Phosphatase 60 35 - 130 U/L Bilirubin, Total 0.5 <=1.2 mg/dL Calcium 9.0 8.4 - 10.2 mg/dL Protein 6.7 6.0 - 8.3 g/dL ALT 22 10 - 50 U/L CBC Result Value Ref Range WBC 4.36 4.00 - 10.80 K/uL RBC 3.28 4.50 - 5.25 M/uL HGB 10.5 (L) 14.0 - 16.8 g/dL HCT 32.5 (L) 40.0 - 48.4 % MCV 99.1 82.0 - 99.5 fL MCH 32.0 27.0 - 34.0 pg MCHC 32.3 32.0 - 36.0 g/dL RDW 16.9 11.5 - 15.5 % PLT 148 140 - 400 K/uL MPV 10.1 6.6 - 11.1 fL DIFFERENTIAL, AUTOMATED Result Value Ref Range WBC 4.36 4.00 - 10.80 K/uL Neutrophils % 49.8 40.0 - 75.0 % Lymphocytes % 23.9 18.0 - 42.0 % Monocytes % 24.5 (H) 1.0 - 11.0 % Eosinophils % 1.1 0.0 - 6.0 % Basophils % 0.7 0.0 - 2.0 % Absolute Neutrophils 2.17 1.80 - 7.70 K/uL Absolute Lymphocytes 1.04 1.00 - 4.80 K/ul Absolute Monocytes 1.07 0.00 - 1.10 K/uL Absolute Eosinophils 0.05 0.00 - 0.70 K/uL Absolute Basophils 0.03 0.00 - 0.20 K/uL *Note: Due to a large number of results and/or encounters for the requested time period, some results have not been displayed. A complete set of results can be found in Results Review. All his blood test result are in acceptable and stable range REVIEW OF SYSTEMS: General: No Fever, chills, night sweats HEENT: No change in visual acuity, blurred or double vision. No epistaxis, facial pain, nasal discharge or change in hearing. Denies dysphagia, no muscosal ulceration, or sores noted. Cardiovascular: No chest pain, RAYGOZA, or palpitations Respiratory: No shortness of breath, cough, hemoptysis, or pleuritic chest pain Gastrointestinal: No abdominal pain, nausea, vomiting, diarrhea, rectal pain or bleeding Genitourinary: Denies Hematuria or dysuria Musculoskeletal: No bone pain Skin: No skin rash or lesions noted Neurologic: stable numbness, weakness, neuropathic pain, no change in cognitive function Psychiatric: No vegetative signs of depression Endocrine: No symptoms of hypothyroidism or hyperglycemia Hematologic: No bleeding or lymph nodes noted As mentioned above, all of the systems were reviewed in full and are unremarkable. Past Medical History: Diagnosis Date Atrial fibrillation (HCC) post op COPD (chronic obstructive pulmonary disease) ([facility]) Coronary atherosclerosis 10/18/1993 Other and unspecified malignant neoplasm of skin of other and unspecified parts of face Primary localized osteoarthrosis, lower leg 10/18/1996 hip Pulmonary arterial hypertension ([facility]) Rosacea Current Outpatient Medications Medication Sig Dispense Refill LANCET DEVICE MISC test bid 100 3 OMEGA 3 1000 MG PO CAPS 2 per day 90 Cap 0 Calcium Carbonate-Vitamin D 600-400 MG-UNIT Oral Tablet Take by mouth 1 Tablet in the morning AND 1 Tablet before bedtime. (Patient taking differently: Take 1 Tablet by mouth in the morning. Take1 tablet daily.) 60 Tablet 2 Gabapentin 300 [...] Inhalation Aerosol Solution Inhale by mouth 2 Puffsevery 6 hours as needed for Cough, Shortness of Breath or Wheezing. 18 g 3 U04-[id number] 1 MG Oral Tablet Chewable (Methylcobalamin) Take by mouth daily . Digoxin 125 MCG Oral Tablet (Lanoxin) Take 1 Tablet by mouth every other day. 90 Tablet 3 Potassium Chloride Raven ER 20 MEQ Oral Tablet Extended Release (Klor-Con M20) Take 1 Tablet by mouth in the morning and 1 Tablet before bedtime. 180 Tablet 1 Eliquis 5 MG Oral Tablet (Apixaban) TAKE 1 TABLET BY MOUTH TWICE A DAY 60 Tablet 11 Omeprazole 20 MG Oral Capsule Delayed Release (PriLOSEC) Take 1 Capsule by mouth in the morning. 90 Capsule 3 Mirtazapine 15 MG Oral Tablet (Remeron) Take 1 Tablet by mouth at bedtime. 30 Tablet 5 Calcium + Vitamin D3 600-10 MG-MCG Oral Tablet (Calcium Carb- Cholecalciferol) TAKE 1 TABLET BY MOUTH EVERY DAY IN THE MORNING AND BEFORE BEDTIME 180 Tablet 2 Dexamethasone 4 MG Oral Tablet (Decadron) Take 20mg on days 1, 2, 8, 9, 15, 16, 22, 23 every 28days (Patient taking differently: Take 20mg once a week) 120 Tablet 1 NovoLOG FlexPen 100 UNIT/ML Subcutaneous Solution Pen-injector (insulin aspart) Inject 15 Unitsunder the skin in the morning and 15 Units at noon and 15 Units in the evening. Inject with meals. Plus correction factor of 1:25 over 150. Max Daily Dose of 75 Units.. 75 mL 3 Ondansetron HCl 8 MG Oral Tablet (Zofran) Take 1 Tablet by mouth every 8 hours as needed for Nausea. 30 Tablet 2 Prochlorperazine Maleate 10 MG Oral Tablet (Compazine) Take 1 Tablet by mouth every 6 hours as needed for Nausea. 30 Tablet 2 Morphine Sulfate 15 MG Oral Tablet (Msir) Take 1 Tablet by mouth every 4 hours as needed for Pain, Severe. 90 Tablet 0 Atorvastatin Calcium 40 MG Oral Tablet (Lipitor) TAKE 1 TABLET BY MOUTH EVERY DAY 90 Tablet 1 Metoprolol Succinate ER 50 MG Oral Tablet Extended Release 24 Hour (toPROL XL) Take 1 Tablet bymouth in the morning and 1 Tablet before bedtime. 180 Tablet 3 Insulin Glargine Solostar 100 UNIT/ML Subcutaneous Solution Pen-injector (Basaglar KwikPen) Inject 40 Units under the skin every night at bedtime. 45 mL 1 Dexcom G7 Sensor Use to check blood sugar 1 Each 3 Dexcom G7 Apprentice Jockey Device Use to check blood sugar 1 Each 1 Victoza 18 MG/3ML Subcutaneous Solution Pen-injector (Liraglutide) Inject 1.2 mg under the skinin the morning. 18 mL 3 Lenalidomide 10 MG Oral Capsule (Revlimid) TAKE 1 CAPSULE BY MOUTH 1 TIME A DAY FOR 21 DAYS ON THEN 7 DAYS OFF 21 Capsule 0 BD Pen Needle Short U/F 31G X 8 MM (Insulin Pen Needle) USE DIRECTED WITH insulins 500 Each 3 No current facility-administered medications for this visit. Social History Tobacco Use Smoking status: Former Packs/day: 1.50 Years: 25.00 Pack years: 37.50 Types: Cigarettes Quit date: 10/18/1979 Years since quittin.5 Smokeless tobacco: Never Tobacco comments: occ. cigar Vaping Use Vaping Use: Never used Substance Use Topics Alcohol use: Yes Comment: very rare Drug use: Yes Types: Marijuana Comment: Liquid, medical marijuana; also has gummies Review of patient's allergies indicates: Allergen Reactions Tizanidine PHYSICAL EXAMINATION: General Appearance: Weak appearing patient in no acute distress BP 118/61 (BP Site: Left Arm, BP Position: Sitting, BP Cuff Size: Regular) | Pulse 86 | Temp 36.8 C (98.3 F) (Tympanic) | Resp 16 | Wt 66.8 kg (147 lb 4.8 oz) | SpO2 99% | BMI 20.12 kg/m | BSA 1.84 m Vitals reviewed. HEENT: No oral or [...] Extremeties: Good pulses bilaterally, no peripheral edema. ASSESSMENT: 76-year-old male with past medical history significant for atrial fibrillation, coronary artery disease status post CABG at the age of 48, status post hip replacement surgery, diabetes presented withcomplaint of back pain and the left flank pain. He had a CT scan of the abdomen andpelvis done which revealed multifocal osseous lytic lesions throughout the visualized axial skeleton and multiple pathologic fractures,there is mild cortical bulging of the right kidney and this finding may represent a mass worse as extravastedlobulation and ultrasound of the kidneys requested. Further workup including bone marrow biopsy and bone biopsy all consistent with multiple myeloma. Bone marrow biopsy cellularity is70% of which 80%areplasma cells. Further workup confirmed the diagnosis of IgA kappa multiple myeloma with lytic bone lesions. Patient has stage II multiple myeloma based on the revised international staging system for multiple myeloma. He does not have any high risk chromosomal or FSH findings. He was started oncombination of Revlimid plus Velcade and Decadron with good tolerance and normalization of kappa and IgA level. He had a repeat bone marrow biopsy done on 02/27/2022nd it was negative for myeloma. He was evaluated by Dr. Schwarz in Transplant team and because of comorbid condition and lung problem,he is not candidate for high-dose chemotherapy and stem cell transplant. Treatment was on hold between 03/29/2022 and 09/17/2022 because of the deterioration in the performance status and other comorbid condition. Currently he is receiving monthly Darzalex with Decadron and Revlimid. Overall clinically he is stable without any new symptoms complain. All his blood countsare in stable range with normal light chains and IgA level. Discussed with the patient about diagnosis. Reviewed all the available blood test result with him. PLAN: Continue current treatment including combination of Darzalex plus Revlimid and Decadron. He will return to clinic for follow-up in 2 months with CBC, CMP and myeloma panel. The [...] in this encounter Nursing Notes * Brittany oRbledo CMA - 04/27/2023 8:02 AM EDT Patient identifed by name and [...] it for you? ALREADY ACTIVE Filed Vitals: 04/27/23 0801 BP: 118/61 Pulse: 86 Resp: 16 Temp: 36.8 C (98.3 F) TempSrc: Tympanic SpO2: 99% Weight: 66.8 kg (147 lb 4.8 oz) Patient was instructed to not get [...] Encounters Date Type Specialty Care Team Description 05/05/2023 Office Visit Palliative Medicine Nan Campos MD [address] [place] [address] [place] [address] 05/05/2023 Office Visit Pharmacy Pharmacist, [facility] [address] [facility] [place] [id number] 05/24/2023 Scheduled Telephone Pharmacy Ivana [facility] Hem/Onc Tech [address] [place] [address] 05/25/2023 Laboratory Laboratory [facility] [address] [place] [id number] 05/25/2023 Hem/Onc Treatment Hematology [facility], Chair 6 Hem Onc [address] [address] [place] [id number] 06/14/2023 Office Visit Family Medicine Landen Macario DO [address] [facility] [id number] 06/22/2023 Laboratory Laboratory [facility] [address] [place] [id number] 06/22/2023 Office Visit Hematology Oncology Chito Garcia MD [address] [place] [id number] 06/22/2023 Hem/Onc Treatment Hematology Oncology [facility], Chair 4 Hem Onc Sc[facility] [place] [id number] 07/28/2023 Office Visit Cardiology Cyril Johns PA-C [address] [place] [address] 10/01/2023 Cardiac Studies Cardiology Fredy Figueroa [facility] [address] [place] [id number] Scheduled Orders Name Type Priority Associated Diagnoses Orde r Schedule CBC WITH WBC DIFFERENTIAL Lab Routine Multiple myeloma not having achieved remission (HCC) Expected: 06/28/2023, Expires: 11/09/2023 COMPREHENSIVE METABOLIC PANEL Lab Routine Multiple myeloma not having achieved remission (HCC) Expected: 06/28/2023, Expires: 11/09/2023 SERUM IMMUNOFIXATION Lab Routine Multiple myeloma not having achieved remission (HCC) Expected: 06/28/2023, Expires: 11/09/2023 IMMUNOGLOBULIN QUANTITATIVE Lab Routine Multiple myeloma not having achieved remission (HCC) Expected: 06/28/2023, Expires: 11/09/2023 SERUM PROTEIN ELECTROPHORESIS REFLEX PROFILE Lab Routine Multiple myeloma not having achieved remission (HCC) Expected: 06/28/2023, Expires: 11/09/2023 SERUM FREE LIGHT CHAINS Lab Routine Multiple myeloma not having achieved remission (HCC) Expected: 06/28/2023, Expires: 11/09/2023 [id number], SERUM Lab Routine Multiple myeloma not having achieved remission (HCC) Expected: 06/28/2023, Expires: 11/09/2023 Health Maintenance Due Date Last Done Comments B-12 1963 Hepatitis B (3 of 3 - 19+ 3-dose series) 04/17/1994 11/18/1993, 10/18/1993 Zoster Vaccines (2 of 2) 02/21/2013 12/27/2012, 12/16 Pneumococcal Vaccine: 65+ Years (3 - PPSV23 if available, else PCV20) 03/01/2018 03/01/2017, 09/06/2007 Albumin/Creatinine Ratio 12/14/2019 [...] MEDICATION MONITORING YEARLY 01/05/2024 01/04/2023, 10/08/2022, 05/15/2022 GFR 04/27/2024 04/27/2023, 03/18, 03/02/2023, Additional history [...] encounter Medical Devices Implanted Type Area Senior Bioinformatics Scientist Device Identifier Shelf Expiration Date Model / Serial / Lot Lens Intraoc 24.0 - [id number] - [id number] Implanted:Qty: 1 on 08/16/2018 by Adan Colon MD at OR [facility] Right: Eye [employer]OM[employer] 11/17/2022 [id number] / [id number] / [id number] Lens Intraoc 24.0 - [id number] - [id number] Implanted:Qty: 1 on 08/23/2018 by Adan Colon MD at OR [facility] Left: Eye [employer]CH [employer] LOMB 06/17/2023 [id number] / [id number] / [id number] Screw [employer] 3.0pos19oc - [id number] Implanted:Qty: 1 on 12/07/2019 by Amilcar Saavedra MD at OR [facility] Left: Foot [employer]CH [id number] / / documented as of this encounter [...] and were consensually agreed upon. Care Teams Manager Reporting Relationship Specialty Start Date End Date Landen Macario, DO [address] [place] [address] PCP - General Family Medicine 02/09/22 documented as of this encounter"
--- OUTSIDE RECORDS SUMMARY | 2023-08-26 18:17 | External Medical Summary | Summary of Care ---
Author Name Unknown Organization [facility] Address [address] [place] [address] Phone [phone] Care Team Providers Care Disposition Clerk Name Role Phone Landen Macario DO Primary Care Provider [phone] Reason for Visit * Reason Onset Date Comments Forms Request 04/30/2023 Encounter Details Date Type Department Care Team Description 04/30/2023 Telephone Family Practice [facility] [address] [facility] [place] [address] Landen Macario DO [address] [place] [address] Forms Request Allergies Active Allergy Reactions Severity Noted Date Comments Tizanidine 06/27/2021 documented as of this encounter (statuses as of 04/30/2023) Medications Medication Sig Dispensed Refills Start Date [...] or Wheezing. 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 Metastatic cancer to bone 10/22/2021 Acute systolic congestive heart failure 10/08/2021 Multiple myeloma not having achieved rem ission 08/28/2021 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 09/08/2019 Gastroesophageal reflux disease without esophagitis 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 11/25 Paroxysmal [...] as of this encounter (statuses as of 04/30/2023) Resolved Problems Problem Noted Date Resolved Date [...] 0 05/26/2018 Rosacea 07/28/2001 05/26/2018 LOC PRIM [id number] 07/28/2001 05/26/20 18 documented as of this encounter (statuses as of 04/30/2023) Immunizations Name Administration Dates Next Due COVID-19 mRNA, LNP-s, No Pre serve, 2-Dose Series (Moderna) 08/27/2021,01/04/2021,12/02/2020 Covid-19 Mrna, Lnp-s, No Pre serve, Booster (Moderna) 05/07/2022 Covid-19, Mrna, Lnp-s, Pf, B ivalent, 30 Mcg, IM, 12 yrs and above ([employer]) 09/04/2022 H1N1 2009 Influenza, IM 09/22/2009 PPD [...] Telephone Encounter - Glo Ferris LPN - 04/30/2023 4:50 PM EDT Forms faxed. Confirmation received. * Telephone Encounter - Landen Macario DO - 04/30/2023 4:15 PM EDT Signed at your desk * Telephone Encounter - Glo Ferris LPN - 04/30/2023 2:35 PM EDT Provider to address: diabetic foot clinic Reason for Call: Forms Request Contact: Telephone Call Contact Type: Other: forms Outcome: Forms placed on dr. morse desk for completion Total Time including non face to face (minutes): 5 documented in this encounter Plan of Treatment Upcoming Encounters Date Type Specialty Care Team Description 05/05/2023 Office Visit Palliative Medicine Nan Campos MD [address] [place] [phone] 05/05/2023 Office Visit Pharmacy Pharmacist, [facility] [address] [place] [address] 05/24/2023 Scheduled Telephone Pharmacy [facility] Hem/Onc Tech [address] [place] [address] 05/25/2023 Laboratory [facility]o [facility] Lab Scenery [address] [place] [address] 05/25/2023 Hem/Onc Treatment H[facility]ology [facility] [place], Chair 6 Hem Onc Scenery [address] [place] [address] 06/14/2023 Office Visit Family Medicine Landen Macario DO [address] [place] [address] 06/22/2023 Laboratory Laboratory [facility] [address] [place] [address] 06/22/2023 Office Visit Hematology Oncology Chito Garcia MD [address] [place] [address] 06/22/2023 Hem/Onc Treatment Hematology [place] [place], Chair 4 Hem Onc Scenery [address] [place] [address] 07/28/2023 Office Visit Cardiology Cyril Johns PA-C [address] [place] [address] 10/01/2023 Cardiac Studies Cardiology [facility], Pacer Clinic [facility] [address] [place] [address] Health Maintenance Due Date Last Done Comments [...] 03/02/2024 03/02/2023, 0702/2022, 07/08/2021, Additional history exists GFR 04/27/2024 04/27/2023, [...] this encounter Medical Devices Implanted Type Area Crop Ranch Hand Device Identifier Shelf Expiration Date Model / Serial / Lot Lens Intraoc 24.0 - [id number] - [id number] Implanted:Qty: 1 on 08/16/2018 by Adan Colon MD at OR [facility] Right: Eye BAUSCH & LOMB 11/17/2022 [id number] / [id number] / [id number] Lens Intraoc 24.0 - [id number] - [id number] Implanted:Qty: 1 on 08/23/2018 by Adan Colon MD at OR [facility] Left: Eye BAUSCH & LOMB 06/17/2023 [id number] / [id number] / [id number] Screw [employer] [id number] - [id number] Implanted:Qty: 1 on 12/07/2019 by Amilcar Saavedra MD at OR [facility] Left: Foot EXACTECH [id number] / / documented as of this encounter [...] and were consensually agreed upon. Care Teams Disposition Clerk Relationship Specialty Start Date End Date Landen Macario, DO [address] [facility] [place] [address] PCP - General Family Medicine 02/09/22 documented as of this encounter
--- OUTSIDE RECORDS SUMMARY | 2023-08-26 18:17 | External Medical Summary | Summary of Care ---
Author Name Unknown Organization [facility] Address [address] [place] [address] Phone [phone] Care Team Providers Care Caustic Strength Inspector Name Role Phone AhsanLanden nava Primary Care Provider [phone] Reason for Visit * Reason Comments Chemotherapy Darzalex Faspro Medication Administration Xgeva * Episode Based Medications (Routine) - Authorized Specialty Diagnoses / Procedures Referred By Contqian t Referred To Contact Diagnoses Multiple myeloma not having achieved remission (HCC) Procedures SC DARATUMUMAB, HYALURONIDASE Chito Garcia MD [address] [place] [address] Anc Hem/Onc Scenery [facility] [address] [place] [id number] Referral ID Status Reason Start Date Expiration Date V isits Requested Visits Authorized [id number] Authorized 08/27/2022 08/28/2023 99 99 Encounter Details Date Type Department Care Team Description 04/27/2023 Hem/Onc Treatment Hematology/Oncology Treatment, [place] [address] [place] [phone] [place], Chair 9 Hem Onc Scenery [address] [place] [address] Multiple myeloma not having achieved remission (HCC)* [...] or Wheezing. 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 Pt arrived today for Darzalex Faspro and Xgeva injections. Pt had labs performed prior, results WNL. Pt met with Dr. Garcia prior, all concerns addressed. Pt reports feeling some mild fatigue and inability to gain weight. Denies pain or new issues. Pt tolerated both injections well. Pt discharged in stable condition. documented in this encounter Plan of Treatment Upcoming Encounters Date Type Specialty Care Team Description 05/05/2023 Office Visit Palliative Medicine Nan Campos MD [address] [place], [place] [phone] 05/05/2023 Office Visit Pharmacy Pharmacist, [facility] [address] [place] [address] 05/24/2023 Scheduled Telephone Pharmacy [facility] Hem/Onc Tech [address] [place] [address] 05/25/2023 Laboratory Laboratory [facility], Lab Scenery [address] [place] [address] 05/25/2023 Hem/Onc Treatment Hematology [place]cology [place], Chair 6 Hem Onc Scenery [address] [place] [address] 06/14/2023 Office Visit Family Medicine Landen Macario DO [address] [place] [address] 06/22/2023 Laboratory Laboratory [facility], Lab Scenery [address] [place] [address] 06/22/2023 Office Visit Hematology Oncology Chito Garcia MD [address] [place] [address] 06/22/2023 Hem/Onc Treatment Hematology Oncology [place], Chair 4 Hem Onc Scenery [address] [place] [address] 07/28/2023 Office Visit Cardiology Cyril Johns PA-C [address] [place] [address] 10/01/2023 Cardiac Studies [address] [facility] [address] [place] [address] Health Maintenance Due Date Last Done Comments [...] this encounter Medical Devices Implanted Type Area Industrial Rehabilitation Consultant Device Identifier Shelf Expiration Date Model / Serial / Lot Lens Intraoc 24.0 - [id number] - [id number] Implanted:Qty: 1 on 08/16/2018 by Adan Colon MD at OR [facility] Right: Eye BAUSCH & LOMB 11/17/2022 [id number] / [id number] / [id number] Lens Intraoc 24.0 - [id number] - [id number] Implanted:Qty: 1 on 08/23/2018 by Adan Colon MD at OR [facility] Left: Eye BAUSCH & LOMB 06/17/2023 [id number] / [id number] / [id number] Screw [employer] 3.3fnu45gd - [id number] Implanted:Qty: 1 on 12/07/2019 by Amilcar Saavedra MD at OR [facility] Left: Foot EXACTECH [id number] / / documented as of this encounter [...] ONCE PRN Other, Hypersensitivity Reaction, Starting on Wed04/27/23 at 0845, Until Wed04/28/23 at 0844, For 24 hours EPINEPHrine 1 MG/ML inj 0.3 mg 0.3 mg, Intramuscular, ONCE PRN Other, Hypersensitivity Reaction or Anaphylaxis, Starting on Wed04/27/23 at 0845, Until Wed04/28/23 at 0844, For 24 hours Hydrocortisone Sod Suc (PF) (Solu-Cortef) inj 100 mg 100 mg, IV Push, ONCE PRN Other, Hypersensitivity Reaction, Starting on Wed04/27/23 at 0845, Until Wed04/28/23 at 0844, For 24 hours meperidine (Demerol) 25 MG/ML inj 25 mg 25 mg, IV Push, ONCE PRN Shivering, Starting on Wed04/27/23 at 0845, Until Wed04/28/23 at 0844, For 24 hours Inactive Administered Medications - up to 3 most recent administrations Medication Order MAR Action Action Date Dose Rate Site Acetaminophen (Tylenol) tab 650 mg 650 mg, Oral, ONCE, On Wed04/27/23 at 0915, For 1 dose, Maximum of 4 grams (4000 mg) per day. Given 04/27/2023 8:56 AM EDT 650 mg Hlyhhehyrxe-cvlcbnhjuwicp-i ihj (Darzalex Faspro) 1800 mg-70347 units/ 15 ml subcut inj 15 mL, Subcutaneous, ONCE, On Wed04/27/23 at 1015, For 1 dose, Inject subcutanteously into abdomen over 3 to 5 minutes Given 04/27/2023 9:14 AM EDT 15 mL Abdomen Left Upper Denosumab (Xgeva) subcut inj 120 mg 120 mg, Subcutaneous, ONCE, On Wed04/27/23 at 0915, For 1 dose Given 04/27/2023 9:14 AM EDT 120 mg Arm Left Upper diphenhydrAMINE (Benadryl) cap 50 mg 50 mg, Oral, ONCE, On Wed04/27/23 at 0915, For 1 dose Given 04/27/2023 8:56 AM EDT 50 mg documented in this [...] and were consensually agreed upon. Care Teams Caustic Strength Inspector Relationship Specialty Start Date End Date Landen Macario, DO [address] [place] [address] PCP - General Family Medicine 02/09/22 documented as of this encounter
--- OUTSIDE RECORDS SUMMARY | 2023-08-26 18:17 | External Medical Summary | Summary of Care ---
Author Name Unknown Organization [facility] Address [address] [facility] [place] [address] Phone [phone] Care Team Providers Care Gasser Machine Operator Name Role Phone RoselynLanden cameron Primary Care Provider [phone] Reason for Visit * Reason Comments Diabetes Follow-Up Dosage Adjustment In Person (Anticoag Cl inic) Encounter Details Date Type Department Care Team Description 05/05/2023 [facility] [address] [facility] [place] [address] Pharmacist1, [facility] [address] [facility] [place] [address] Type 2 diabetes mellitus with hemoglobin A1c goal of less than 8.0% ([facility])* Allergies Active Allergy Reactions Severity Noted Date [...] or Wheezing. 18 g 3 04/03/2022 Active P47-Fgkagb 1 MG Oral Tablet Chewable (Methylcobalamin) Take [...] 1 Each 3 03/04/2023 Active Dexcom G7 Personnel Psychologist Device Use to check blood sugar 1 [...] Pain, Severe. 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 Metastatic cancer to bone 10/22/2021 Acute systolic congestive heart failure 10/08/2021 Multiple myeloma not having achieved rem ission 08/28/2021 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 09/08/2019 Gastroesophageal reflux disease without esophagitis 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 11/25 Paroxysmal atrial [...] 0 05/26/2018 Rosacea 07/28/2001 05/26/2018 LOC PRIM [id number] 07/28/2001 05/26/20 18 documented as of this encounter (statuses as of 05/05/2023) Immunizations Name Administration Dates Next Due COVID-19 mRNA, LNP-s, No Pre serve, 2-Dose Series (Moderna) 08/27/2021,01/04/2021,12/02/2020 Covid-19 Mrna, Lnp-s, No Pre serve, Booster (Moderna) 05/07/2022 Covid-19, Mrna, Lnp-s, Pf, B ivalent, 30 Mcg, IM, 12 yrs and above ([employer]) 09/04/2022 H1N1 2009 Influenza, IM 09/22/2009 PPD [...] Filipe Moya V, [facility] - 05/05/2023 2:15 PM EDT Images from the original note were not included. Medication Therapy Disease Management [facility] - Diabetes Management Progress Note Dev Hernandez, identified by name and date of , is a 77 year old male being seen for diabetes management/education. Patient presents for return diabetic visit. DIABETES: Current diabetic medications: Victoza 1.2mgdaily AM Basaglar 40units daily at bedtime daily Novolog 15units TID with meals + correction factor of 1:25 over 150 Medication Injection Site: Abdomen Lifestyle: Diet: unchanged History of Treatment Barriers: Lifestyle: None Therapy considerations: Chemotherapy starting 09/15, Decadron 20mg once weekly on Tuesdays Medication: Metformin:ROLO noted by pcp Glucose Review/SMBG: Readings obtained from patient device Hypoglycemia: Does your blood sugar go below 70 mg/dL? Yes, per sensor but not by symptoms Hyperglycemia symptoms present: none Recent Labs Units 03/02/23 0841 01/04/23 1032 10/08/22 0914 HEMOGLOBIN A1C - [facility] % 5.3 6.8* 6.7* Recent Labs Units 04/27/23 0731 03/30/23 0846 03/02/23 0841 ESTIMATED GLOMERULAR FILTRATION RATE - [facility] mL/min 51* 69 63 CREATININE - [facility] mg/dL 1.4* 1.1 1.2 Lab Results Component Value Date/Time CREATININE - [facility] 1.4 (H) 04/27/2023 07:31 AM CREATININE - [facility] 1.1 03/30/2023 08:46 AM CREATININE - [facility] 1.2 03/02/2023 08:41 AM CREATININE - [facility] 1.1 09/04/2020 10:57 [...] BP BP Readings from Last 3 Encounters: 05/05/23 136/71 04/27/23 118/61 03/30/23 158/79 Blood pressure at goal: yes HYPERLIPIDEMIA: Patient [...] hemoglobin A1c goal of less than 8.0% ([facility]) E11.9 BG Readings - Blood sugars controlled. BG average at goal. The high readings were all due to diet. Medications - Reviewed current regimen, patient is adherent to regimen. Diet, Exercise, Lifestyle - No significant lifestyle changes since last visit. Discussed with patient today. Patient is agreeable to wear Dexcom CGM. Patient aware to contact clinic if any hypoglycemia before next visit. MEDICATION CHANGES: no change Diabetic Medications: Victoza 1.2mgdaily AM Basaglar 40units daily at bedtime daily Novolog 15units TID with meals + correction factor of 1:25 over 150 HEALTH MAINTENANCE INTERVENTIONS: Labs: Ordered & Scheduled: Urine Microalbumin Immunizations: needs pneumococcal and 2nd shingles in future Foot Exam: Due Eye Exam: Up to Date Annual Wellness Visit: Up to Date FOLLOW UP: Return to clinic in 6 weeks 06/14/2023 Filipe Moya RPh, MARTHAE Clinical Pharmacist - Workers Compensation Claims Examiner Medication Therapy Management Clinic 05/05/2023, 2:15 PM documented in this encounter Plan of Treatment Upcoming Encounters Date Type Specialty Care Team Description 05/24/2023 Scheduled Telephone Pharmacy [facility] Hem/Onc Tech [address] [facility] [place] [address] 05/25/2023 Laboratory Laboratory [place], Lab Scenery [address] [place] [address] 05/25/2023 Hem/Onc Treatment Hematology Oncology [place], Chair 6 Hem Onc Scenery [address] [place] [address] 06/14/2023 Office Visit Pharmacy PharmacistErnestine [facility] Sp [address] [place] [address] 06/14/2023 Office Visit Family Medicine Landen Macario DO [address] [place] [address] 06/22/2023 Laboratory Laboratory Allen Ramirez Scenery [address] [place] [address] 06/22/2023 Office Visit Hematology Oncology Chito Garcia MD [address] [place] [address] 06/22/2023 Hem/Onc Treatment Hematology Oncology [place], Chair 4 Hem Onc Scenery [address] [place] [address] 07/14/2023 Office Visit Palliative Medicine Nan Campos MD [address] [place] [address] [place], [place] [phone] 07/28/2023 Office Visit Cardiology Cyril Johns PA-C [address] [place] [address] 10/01/2023 Cardiac Studies Cardiology Fredy Figueroa [facility] [address] [place] [address] Health Maintenance Due Date Last Done Comments [...] this encounter Medical Devices Implanted Type Area Instrument Repairer Helper Device Identifier Shelf Expiration Date Model / Serial / Lot Lens Intraoc 24.0 - [id number] - [id number] Implanted:Qty: 1 on 08/16/2018 by Adan Colon MD at [facility] Right: Eye BAUSCH & LOMB 11/17/2022 [id number] / [id number] / [id number] Lens Intraoc 24.0 - [id number] - [id number] Implanted:Qty: 1 on 08/23/2018 by Adan Colon MD at OR [facility] Left: Eye BAUSCH & LOMB 06/17/2023 [id number] / [id number] / [id number] Screw [employer] 3.5sdu13iv - [id number] Implanted:Qty: 1 on 12/07/2019 by Amilcar Saavedra MD at OR [facility] Left: Foot EXACTECH [id number] / / documented as of this encounter Visit Diagnoses Diagnosis Type 2 diabetes mellitus with hemoglobin A1c goal of less than 8.0% ([facility])- Primary documented in this encounter Advance Directives [...] and were consensually agreed upon. Care Teams Gasser Machine Operator Relationship Specialty Start Date End Date Landen Macario, DO [address] [place] [address] PCP - General Family Medicine 02/09/22 documented as of this encounter
--- OUTSIDE RECORDS SUMMARY | 2023-08-26 18:18 | External Medical Summary ---
Author Name Unknown Address Unknown Organization [id number]:LABORATORY [facility] - [facility] [place] [address] Laboratory Report Ordering Provider Test Date Status ANIBAL FIERRO 04/27/2023 07:31:33 Final Observation Date Value Abnormality Reference (Units ) Status [place] light chains, Free, Serum 04/27/2023 07:31:33 16.44 3.30-19.40 (mg/L) Final L[place] light chains, free, Serum 04/27/2023 07:31:33 14.17 5.71-26.30 (mg/L) Final KAPPA LAMBDA FLC RATIO 04/27/2023 07:31:33 1.16 0.26-1.65 Final Performing Location LABORATORY [facility] - [facility] [place] [address]
--- OUTSIDE RECORDS SUMMARY | 2023-08-26 18:18 | External Medical Summary ---
Author Name Unknown Address Unknown Organization K09:[facility] [place] [address] Laboratory Report Ordering Provider Test Date Status ANIBAL FIERRO 04/27/2023 07:31:33 Final Observation Date Value Abnormality Reference (Units ) Status WBC, Total 04/27/2023 07:31:33 4.36 4.00-10.8 0 (K/uL) Final RBC 04/27/2023 07:31:33 3.28 4.50-5.25 (M/uL) Final Hemoglobin 04/27/2023 07:31:33 10.5 Below low normal 14 .0-16.8 (g/dL) Final HCT 04/27/2023 07:31:33 32.5 Below low normal 40. 0-48.4 (%) Final MCV 04/27/2023 07:31:33 99.1 82.0-99.5 (fL) Final MCH 04/27/2023 07:31:33 32.0 27.0-34.0 (pg) Final MCHC 04/27/2023 07:31:33 32.3 32.0-36.0 (g/dL) Final RDW 04/27/2023 07:31:33 16.9 11.5-15.5 (%) Final Platelets 04/27/2023 07:31:33 148 140-400 (K /uL) Final MPV 04/27/2023 07:31:33 10.1 6.6-11.1 ( fL) Final Performing Location [facility] [place] [address]
--- OUTSIDE RECORDS SUMMARY | 2023-08-26 18:18 | External Medical Summary | Summary of Care ---
Author Name Unknown Organization [facility] Address [address] [facility] [place] [address] Phone [phone] Care Team Providers Care Spool Maker Name Role Phone AhsanLanden nava Primary Care Provider [phone] Reason for Visit * Reason Comments Diabetes Follow-Up Dosage Adjustment In Person (Anticoag Cl inic) Encounter Details Date Type Department Care Team Description 03/30/2023 [facility] Visit Pharm[facility] [address] [facility] [place] [address] Pharmacist1, [facility] [address] [facility] [place] [address] Type 2 diabetes mellitus with hemoglobin A1c goal of less than 8.0% ([facility])*; Type 2 diabetes mellitus with peripheral vascular disease (HCC) Allergies Active Allergy Reactions Severity Noted Date Comments Tizanidine 06/27/2021 documented as of this encounter (statuses as of 03/30/2023) Medications Medication Sig Dispensed Refills Start Date End Date Status LANCET DEVICE MISCIndications:D M type 2, not at goal (HCC) test bid 100 3 07/27/2007 Active OMEGA 3 1000 MG PO CAPSIndications:C hronic ischemic heart disease,Dyslipide sarath, goal LDL below 70 2 per day 90 Cap 0 08/22/2013 Active BD Pen Needle Short U/F 31G X 8 MM (Insulin Pen Needle)Indication s:Type 2 diabetes mellitus with hemoglobin A1c goal of less than 8.0% (HCC) USE DIRECTED WITH SOLSTAR 100 Each 3 10/14/2021 Active Calcium Carbonate-Vitamin D 600-400 MG-UNIT Oral [...] or Wheezing. 18 g 3 04/03/2022 Active P49-Ygleej 1 MG Oral Tablet Chewable (Methylcobalamin) Take [...] 1 Each 3 03/04/2023 Active Dexcom G7 Faucets Assembler Device Use to check blood sugar 1 Each 1 03/04/2023 Active Lenalidomide 10 MG Oral Capsule (Revlimid)Indicat ions:Multiple myeloma not having achieved remission (HCC) TAKE 1 CAPSULE BY MOUTH 1 TIME A DAY FOR 21 DAYS ON THEN 7 DAYS OFF 21 Capsule 0 03/21/2023 Active Victoza 18 MG/3ML Subcutaneous Solution Pen-injector (Liraglutide)Vera cations:Type 2 diabetes mellitus with peripheral vascular disease (HCC) Inject 1.2 mg under the skin in the morning. 18 mL 3 03/30/2023 Active Victoza 18 MG/3ML Subcutaneous Solution Pen-injector (Liraglutide)Vera cations:Type 2 diabetes mellitus with peripheral vascular disease (HCC) Inject 1.8 mg under the skin in the morning. 27 mL 3 02/15/2023 03/30/20 23 Discontinued Hospital, Clinic, or Other Facility Administered Medication Ordered Dose Route Frequency Start Date End Date Status Albuterol Sulfate (Proventil) (5 MG/ML) 0.5% *conc* inhalation solution 2.5 mgIndications:ILD (interstitial lung disease) ([facility]),COPD, group A, by GOLD 2017 classification ([facility]) 2.5 mg NEBULIZER PRN 04/03/2022 04/03/2023 Acti ve Albuterol Sulfate (Proventil) (2.5 MG/3ML) 0.083% inhalation solution 2.5 mgIndications:ILD (interstitial lung disease) ([facility]),COPD, group A, by GOLD 2017 classification ([facility]) 2.5 mg NEBULIZER PRN 04/03/2022 04/03/2023 Acti ve documented as of this encounter (statuses as of 03/30/2023) Active Problems Problem Noted Date Chronic systolic (congestive) heart fail ure 06/25/2022 Coronary artery disease invo lving [place] coronary artery of [place] heart without angina pectoris 06/25/2022 Presence of [...] as of this encounter (statuses as of 03/30/2023) Resolved Problems Problem Noted Date Resolved Date [...] 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,rt christianity 07/05/2002 0 05/26/2018 Rosacea 07/28/2001 05/26/2018 LOC PRIM [id number] 07/28/2001 05/26/20 18 documented as of this encounter (statuses as of 03/30/2023) Immunizations Name Administration Dates Next Due COVID-19 mRNA, LNP-s, No Pre serve, 2-Dose Series (Moderna) 08/27/2021,01/04/2021,12/02/2020 Covid-19 Mrna, Lnp-s, No Pre serve, Booster (Moderna) 05/07/2022 Covid-19, Mrna, Lnp-s, Pf, B ivalent, 30 Mcg, IM, 12 yrs and above (Douguo) 09/04/2022 H1N1 2009 Influenza, IM 09/22/2009 Hepatitis [...] encounter Progress Notes * Filipe Moya V, [facility] - 03/30/2023 9:00 AM EDT Images from the original note were not included. Medication Therapy Disease Management Clinic - Diabetes Management Progress Note Dev Hernandez, identified by name and date of , is a 77 year old male being seen for diabetes management/education. Patient presents for return diabetic visit. DIABETES: Current diabetic medications: INCREASE Victoza 1.8 mg daily AM (had ROLO so decreased back to 1.2mg daily) Basaglar 40 units daily at bedtime daily Novolog 15units TID with meals + correction factor of 1:25 over 150 Medication Injection Site: Abdomen Lifestyle: Diet: unchanged History of Treatment Barriers: Lifestyle: None Therapy considerations: Chemotherapy starting 09/15, Decadron 20mg once weekly on Tuesdays Medication: Metformin:ROLO noted by pcp Glucose Review/SMBG: Readings obtained from patient device Hypoglycemia: Does your blood sugar go below 70 mg/dL? Yes, per sensor. Not always low Hyperglycemia symptoms present: none Recent Labs Units 03/02/23 0841 01/04/23 1032 10/08/22 0914 HEMOGLOBIN A1C - [facility] % 5.3 6.8* 6.7* Recent Labs Units 03/02/23 0841 02/02/23 0754 01/04/23 1032 ESTIMATED GLOMERULAR FILTRATION RATE - [facility] mL/min 63 65 67 CREATININE - [facility] mg/dL 1.2 1.2 1.1 Lab Results Component Value Date/Time CREATININE - [facility] 1.2 03/02/2023 08:41 AM CREATININE - [facility] 1.2 02/02/2023 07:54 AM CREATININE - [facility] 1.1 01/04/2023 10:32 AM CREATININE - [facility] 1.1 09/04/2020 10:57 [...] BP BP Readings from Last 3 Encounters: 03/02/23 102/65 03/02/23 102/65 02/04/23 116/66 Blood pressure at goal: yes HYPERLIPIDEMIA: Patient is taking moderate or high intensity statin: yes, Atorvastatin 40mg daily HEALTH MAINTENANCE REVIEW: Health Maintenance Due Topic Date Due Hepatitis B (3 of 3 - 19+ 3-dose series) 04/17/1994 Zoster Vaccines (2 of 2) 02/21/2013 Pneumococcal Vaccine: 65+ Years (3 - PPSV23 if available, else PCV20) 03/01/2018 Albumin/Creatinine Ratio 12/14/2019 DIABETES-FOOT EXAM 09/16/2021 ASSESSMENT & PLAN: ICD-10-CM 1. Type 2 diabetes mellitus with hemoglobin A1c goal of less than 8.0% ([facility]) E11.9 BG Readings - Blood sugars controlled. Medications - Reviewed current regimen, patient is not adherent to regimen. decreased Victoza on own due to ROLO Diet, Exercise, Lifestyle - No significant lifestyle changes since last visit. Discussed with patient today. Patient is agreeable to wear Dexcom CGM. Order sent for Dexcom G7 recently - patient waiting to start. Patient aware to contact clinic if any hypoglycemia before next visit. MEDICATION CHANGES: no change Diabetic Medications: Victoza 1.2 mg daily AM Basaglar 40 units daily at bedtime daily Novolog 15units TID with meals + correction factor of 1:25 over 150 HEALTH MAINTENANCE INTERVENTIONS: Labs: Ordered & Scheduled: Urine Microalbumin Immunizations: needs pneumococcal and 2nd shingles in future Foot Exam: Due Eye Exam: Up to Date Annual Wellness Visit: Up to Date FOLLOW UP: Return to clinic in 6 weeks 05/05/2023 Filipe Moya RPh, [facility] Clinical Pharmacist - Land Law Examiner Medication Therapy Management Clinic 03/30/2023, 9:01 AM documented in this encounter Plan of Treatment Upcoming Encounters Date Type Specialty Care Team Description 04/19/2023 Scheduled Telephone Pharmacy Ivana [facility] Hem/Onc Tech [address] [place] [address] 04/27/2023 Laboratory Laboratory [facility] [address] [facility] [place] [address] 04/27/2023 Office Visit Hematology Oncology Chito Garcia MD [address] [place] [address] 04/27/2023 Hem/Onc Treatment Hematology Oncology [place], Chair 9 Hem Onc Scenery [address] [facility] [place] [address] 05/05/2023 Office Visit Palliative Medicine Nan Campos MD [address] [place] [address] 05/05/2023 Office Visit Pharmacy Pharmacist, [facility] Sp [address] [facility] [place] [address] 06/14/2023 Office Visit Family Medicine Landen Macario DO [address] [facility] [place] [address] 07/28/2023 Office Visit Cardiology Cyril Johns PA-C [address] [place] [address] 10/01/2023 Cardiac Studies Cardiology [address] [place] [address] Health Maintenance Due Date Last Done Comments [...] for Pts 12 and Over 05/20/2023 05/20/2022 HbA1c 09/02/2023 03/02/2023, 12/17, 10/08/2022, Additional history exists DIABETES-EYE EXAM 09/09/2023 09/09/2022, , 10/25/2019, Additional history exists DIG LEVEL FOR MEDICATION MONITORING YEARLY 01/05/2024 01/04/2023, 10/08/2022, 05/15/2022 Yearly B-12 03/02/2024 03/02/2023, 07/0 02/2022, 07/08/2021, Additional history exists GFR 03/30/2024 03/30/2023, 02/15, 02/02/2023, Additional history exists DTaP,Tdap,and Td Vaccines (2 - Td or Tdap) 04/02/2032 04/02/2022 COLONOSCOPY-EVERY 5 YRS AGES 18-100 Discontinued 11/16/2016, 11/16/2016, 07/16/2006 Influenza Vaccine (FLU shot) Completed 07/07/2022, 07/21/2021, 07/21/2021, Additional history exists COVID-19 Vaccine Completed 09/04/2022, , 08/27/2021, Additional history exists GARDASIL-HPV IMMUNIZATION SERIES Aged Out No longer eligible based on patient's age to complete this topic MENINGOCOCCAL (MENACTRA/MENVEO) Aged Out No longer eligible based on patient's age to complete this topic documented as of this encounter Medical Devices Implanted Type Area Porcelain Waxer Device Identifier Shelf Expiration Date Model / Serial / Lot Lens Intraoc 24.0 - [id number] - [id number] Implanted:Qty: 1 on 08/16/2018 by Adan Colon MD at OR [facility] Right: Eye [employer]OM[employer] 11/17/2022 [id number] / [id number] / [id number] Lens Intraoc 24.0 - [id number] - [id number] Implanted:Qty: 1 on 08/23/2018 by Adan Colon MD at OR [facility] Left: Eye [employer]USCH [employer] LOMB 06/17/2023 [id number] / [id number] / [id number] Screw [employer] [id number] - [id number] Implanted:Qty: 1 on 12/07/2019 by Amilcar Saavedra MD at OR [facility] Left: Foot EXACTECH [id number] / / documented as of this encounter Visit Diagnoses Diagnosis Type 2 diabetes mellitus with hemoglobin A1c goal of less than 8.0% (HCC)- Primary Type 2 diabetes mellitus with peripheral vascular disease (HCC) documented in this encounter Advance Directives [...] and were consensually agreed upon. Care Teams Spool Maker Relationship Specialty Start Date End Date Landen Macario, DO [address] [facility] [place] [address] PCP - General Family Medicine 02/09/22 documented as of this encounter
--- OUTSIDE RECORDS SUMMARY | 2023-08-26 18:18 | External Medical Summary | Summary of Care ---
Author Name Unknown Organization [facility] Address [address] [place] [facility] [place] [address] Phone [phone] Care Team Providers Care Incinerator Plant Laborer Name Role Phone Yassine Albert DO Primary Care Provider [phone] Reason for Visit * Reason Comments eRx-Medication Refill Encounter Details Date Type Department Care Team Description 04/16/[address] [facility] [address] [facility] [place] [address] Yassine Albert DO 200 [place] [address] Type 2 diabetes mellitus with hemoglobin A1c goal of less than 8.0% ([facility]) Allergies Active Allergy Reactions Severity Noted Date Comments Tizanidine 06/27/2021 documented as of this encounter (statuses as of 04/18/2023) Medications Medication Sig Dispensed Refills Start Date [...] or Wheezing. 18 g 3 04/03/2022 Active W46-Ybytco 1 MG Oral Tablet Chewable (Methylcobalamin) Take [...] 1 Each 3 03/04/2023 Active Dexcom G7 Shelter Monitor Device Use to check blood sugar 1 [...] WITH insulins 500 Each 3 04/18/2023 Active BD Pen Needle Short U/F 31G X 8 MM (Insulin Pen Needle)Indication s:Type 2 diabetes mellitus with hemoglobin A1c goal of less than 8.0% ([facility]) USE DIRECTED WITH SOLSTAR 100 Each 3 10/14/2021 04/18/20 23 Discontinued documented as of this encounter (statuses as of 04/18/2023) Active Problems Problem Noted Date Chronic systolic (congestive) heart fail ure 06/25/2022 Coronary artery disease invo lving [place] coronary artery of [place] heart without angina pectoris 06/25/2022 Presence of cardiac pacemaker 03/24/2022 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 Metastatic cancer to bone 10/22/2021 Acute systolic congestive heart failure 10/08/2021 Multiple myeloma not having achieved rem ission 08/28/2021 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 09/08/2019 Gastroesophageal reflux disease without esophagitis 03/15/2019 buttermaker continuous churn (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 of insulin 11/25 Paroxysmal atrial [...] as of this encounter (statuses as of 04/18/2023) Resolved Problems Problem Noted Date Resolved Date [...] 0 05/26/2018 Rosacea 07/28/2001 05/26/2018 LOC PRIM [id number] 07/28/2001 05/26/20 18 documented as of this encounter (statuses as of 04/18/2023) Immunizations Name Administration Dates Next Due COVID-19 [...] encounter Miscellaneous Notes * Telephone Encounter - Marek Balderrama, [facility] - 04/18/2023 10:29 AM EDT Signed Prescriptions: Disp Refills BD Pen Needle Short U/F 31G X 8 MM (Insuli*500 Ea*3 Sig: USE ASDIRECTED WITH insulinsAuthorizing Provider: YASSINE ALBERT User: MAREK BALDERRAMA- documented in this encounter Plan of Treatment Upcoming Encounters Date Type Specialty Care Team Description 04/27/2023 Laboratory Laboratory [place], Lab Scenery [address] [facility] [place] [address] 04/27/2023 Office Visit Hematology Oncology Chito Garcia MD [address] [place] [address] 04/27/2023 Hem/Onc Treatment Hematology Oncology [place], Chair 9 Hem Onc Scenery [address] [facility] [address] [facility] [address] 05/05/2023 Office Visit Palliative Medicine Nan Campos MD [address] [place] [address] 05/05/2023 [facility] [address] [facility] [address] 05/24/2023 [facility]c [facility] [address] [place] [address] 06/14/2023 Office Visit Family Medicine Yassine Albert DO [address] [facility] [address] 07/28/2023 Office Visit Cardiology Cyril Johns PA-C [address] [place] [address] 10/01/2023 Cardiac Studies Cardiology [address] [place] [address] Health Maintenance Due Date Last Done Comments [...] this encounter Medical Devices Implanted Type Area Secretarial Stenographer Device Identifier Shelf Expiration Date Model / Serial / Lot Lens Intraoc 24.0 - [id number] - [id number] Implanted:Qty: 1 on 08/16/2018 by Adan Colon MD at OR [facility] Right: Eye [employer]OM[employer] 11/17/2022 [id number] / [id number] / [id number] Lens Intraoc 24.0 - [id number] - [id number] Implanted:Qty: 1 on 08/23/2018 by Adan Colon MD at OR [facility] Left: Eye BAUSCH [employer] LOMB 06/17/2023 [id number] / [id number] / [id number] Screw [employer] 3.5epz51du - [id number] Implanted:Qty: 1 on 12/07/2019 by Amilcar Saavedra MD at OR [facility] Left: Foot EXACTECH [id number] / / documented as of this encounter Visit Diagnoses Diagnosis Type 2 diabetes mellitus with hemoglobin A1c goal of less than 8.0% (HCC) documented in this encounter Advance Directives [...] and were consensually agreed upon. Care Teams Incinerator Plant Laborer Relationship Specialty Start Date End Date Yassine Albert, DO [address] [place] [address] PCP - General Family Medicine 02/09/22 documented as of this encounter
--- OUTSIDE RECORDS SUMMARY | 2023-08-26 18:18 | External Medical Summary ---
Author Name Unknown Address Unknown Organization K01:[facility] [place] [address] [place] [address] Laboratory Report Ordering Provider Test Date Status ANIBAL FIERRO 04/27/2023 07:31:33 Final Observation Date Value Abnormality Reference (Units) Status Protein 04/27/2023 07:31:33 5.9 Below low normal 6.0-8.3 (g/dL) Final Albumin/Protein.total [Pure mass fraction] in Serum or Plasma by Electrophoresis 04/27/2023 07:31:33 3.33 3.30-4.40 (g/dL) Final Alpha 1 globulin/Protein.tota l [Pure mass fraction] in Serum or Plasma by Electrophoresis 04/27/2023 07:31:33 0.26 0.10-0.30 (g/dL) Final Alpha 2 globulin/Protein.tota l [Pure mass fraction] in Serum or Plasma by Electrophoresis 04/27/2023 07:31:33 1.12 Above high normal 0.60-1.00 (g/dL) Final Beta globulin/Protein.tota l [Pure mass fraction] in Serum or Plasma by Electrophoresis 04/27/2023 07:31:33 0.90 0.80-1.30 (g/dL) Final Gamma globulin/Protein.tota l [Pure mass fraction] in Serum or Plasma by Electrophoresis 04/27/2023 07:31:33 0.29 Below low normal 0.70-1.70 (g/dL) Final Protein Fractions [Interpretation] in Serum or Plasma by Electrophoresis Narrative 04/27/2023 07:31:33 Decreased gamma fraction with small irregularity that may represent previously identified paraprotein, not quantifiable. There has been no change in identity or mobility since the prior examination. Final Performing Location [facility] [place] [address] [place] [address]
--- OUTSIDE RECORDS SUMMARY | 2023-08-26 18:18 | External Medical Summary | Summary of Care ---
Author Name Unknown Organization [facility] Address [address] [place] [address] Phone [phone] Care Team Providers Care Drying Room Attendant Name Role Phone Landen Macario DO Primary Care Provider [phone] Reason for Visit * Reason Onset Date Comments Medication Question 03/03/2023 Encounter Details Date Type Department Care Team Description 03/03/2023 Telephone Family Practice [facility] [address] [place] [address] Landen Macario DO [address] [place] [address] Medication Question Allergies Active Allergy Reactions Severity Noted Date Comments Tizanidine 06/27/2021 documented as of this encounter (statuses as of 04/21/2023) Medications Medication Sig Dispensed Refills Start Date [...] or Wheezing. 18 g 3 04/03/2022 Active S39-Byfdxt 1 MG Oral Tablet Chewable (Methylcobalamin) Take [...] 1 Each 3 03/04/2023 Active Dexcom G7 Global Supply Chain Director Device Use to check blood sugar 1 Each 1 03/04/2023 Active BD Pen Needle Short U/F 31G X 8 MM (Insulin Pen Needle)Indication s:Type 2 diabetes mellitus with hemoglobin A1c goal of less than 8.0% (HCC) USE DIRECTED WITH SOLSTAR 100 Each 3 10/14/2021 04/18/20 23 Discontinued Lenalidomide 10 MG Oral Capsule (Revlimid)Indicat ions:Multiple myeloma not having achieved remission (HCC) TAKE 1 CAPSULE BY MOUTH 1 TIME A DAY FOR 21 DAYS ON THEN 7 DAYS OFF 21 Capsule 0 02/15/2023 03/19/20 23 Discontinued Victoza 18 MG/3ML Subcutaneous Solution Pen-injector (Liraglutide)Vera cations:Type 2 diabetes mellitus with peripheral vascular disease ([facility]) Inject 1.8 mg under the skin in the morning. 27 mL 3 02/15/2023 03/30/20 23 Discontinued Hospital, Clinic, or Other Facility Administered Medication Ordered Dose Route Frequency Start Date End Date Status Albuterol Sulfate (Proventil) (5 MG/ML) 0.5% *conc* inhalation solution 2.5 mgIndications:ILD (interstitial lung disease) ([facility]),COPD, group A, by GOLD 2017 classification ([facility]) 2.5 mg NEBULIZER PRN 04/03/2022 04/03/2023 Ende d Albuterol Sulfate (Proventil) (2.5 MG/3ML) 0.083% inhalation solution 2.5 mgIndications:ILD (interstitial lung disease) ([facility]),COPD, group A, by GOLD 2017 classification ([facility]) 2.5 mg NEBULIZER PRN 04/03/2022 04/03/2023 Ende d documented as of this encounter (statuses as of 04/21/2023) Active Problems Problem Noted Date Chronic systolic [...] 09/08/2019 Gastroesophageal reflux disease without esophagitis 03/15/2019 [facility] (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 of insulin 11/25 Paroxysmal atrial [...] as of this encounter (statuses as of 04/21/2023) Resolved Problems Problem Noted Date Resolved Date [...] 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,rt caodaism 6/07/05/2002 0 05/26/2018 Rosacea 07/28/2001 05/26/2018 LOC PRIM [id number] 07/28/2001 05/26/20 18 documented as of this encounter (statuses as of 04/21/2023) Immunizations Name Administration Dates Next Due COVID-19 [...] encounter Miscellaneous Notes * Telephone Encounter - Landen Macario DO - 03/04/2023 2:38 PM EDT Script sent * Telephone Encounter - Lucy Calderon CPhT - 03/03/2023 5:36 PM EDT Pt calling in and said he has the Dexcom G6 sensor and would like to upgrade to the Dexcom G7. Pt uses [id number] [address] [facility] Please advise. Thank you, Lucy Calderon [place] [facility] [employer] 03/03/2023, 5:37 PM documented in this encounter Plan of Treatment Upcoming Encounters Date Type Specialty Care Team Description 04/27/2023 Laboratory Laboratory [facility] [address] [place] [address] 04/27/2023 Office Visit Hematology Oncology Chito Garcia MD [address] [place] [address] 04/27/2023 Hem/Onc Treatment Hematology Oncology [place], Chair 9 Hem Onc Scenery [address] [place] [address] 05/05/2023 Office Visit Palliative Medicine Nan Campos MD [address] [place] [address] [place] [phone] 05/05/2023 Office Visit Pharmacy Pharmacist1, [facility] Sp [address] [place] [address] 05/24/2023 Scheduled Telephone Pharmacy [facility] Hem/Onc Tech [address] [place] [address] 06/14/2023 Office Visit Family Medicine Landen Macario, DO [address] [facility] [place] [address] 07/28/2023 Office Visit Cardiology Cyril Johns PA-C [address] [place] [address] 10/01/2023 Cardiac Studies Cardiology Fredy Figueroa [facility] [address] [place] [address] Health Maintenance Due Date Last Done Comments [...] this encounter Medical Devices Implanted Type Area Dry Yard Worker Device Identifier Shelf Expiration Date Model / Serial / Lot Lens Intraoc 24.0 - [id number] - [id number] Implanted:Qty: 1 on 08/16/2018 by Adan Colon MD at OR [facility] Right: Eye [employer]OMB 11/17/2022 [id number] / [id number] / [id number] Lens Intraoc 24.0 - [id number] - [id number] Implanted:Qty: 1 on 08/23/2018 by Adan Colon MD at OR [facility] Left: Eye BAUSCH & LOMB 06/17/2023 [id number] / [id number] / [id number] Screw [employer] 3.9vgy52xs - [id number] Implanted:Qty: 1 on 12/07/2019 by Amilcar Saavedra MD at OR [facility] Left: Foot EXACTECH [id number] / / documented as of this encounter [...] and were consensually agreed upon. Care Teams Drying Room Attendant Relationship Specialty Start Date End Date Landen Macario, DO [address] [place] [address] PCP - General Family Medicine 02/09/22 documented as of this encounter
--- OUTSIDE RECORDS SUMMARY | 2023-08-26 18:18 | External Medical Summary | Summary of Care ---
Author Name Unknown Organization [facility] Address [address] [place] [address] Phone [phone] Care Team Providers Care Door Maker Name Role Phone hAsanLanden nava Primary Care Provider [phone] Reason for Visit * Reason Comments Chemotherapy Darzalex Faspro Medication Administration Xgeva * Episode Based Medications (Routine) - Authorized Specialty Diagnoses / Procedures Referred By Contac t Referred To Contact Diagnoses Multiple myeloma not having achieved remission (HCC) Procedures WI DARATUMUMAB, HYALURONIDASE Chito Garcia MD [address] [place] [address] Anc Hem/Onc [address] [place] [address] Referral ID Status Reason Start Date Expiration Date V isits Requested Visits Authorized [id number] Authorized 08/27/2022 08/28/2023 99 99 Encounter Details Date Type Department Care Team Description 03/30/2023 Hem/Onc Treatment Hematology/Oncology Treatment, [address] [place] [address] [place], Chair 2 Hem Onc [address] [place] [address] Multiple myeloma not having achieved remission (HCC)*; Encounter for antineoplastic chemotherapy Allergies [...] or Wheezing. 18 g 3 04/03/2022 Active [id number]-[id number] 1 MG Oral Tablet Chewable (Methylcobalamin) Take [...] hemoglobin A1c goal of less than 8.0% ([facility]) Inject 40 Units under the skin every night at bedtime. 45 mL 1 02/15/2023 Active Dexcom G7 Sensor Use to check blood sugar 1 Each 3 03/04/2023 Active Dexcom G7 Wood Cabinetmaker Device Use to check blood sugar 1 [...] inhalation solution 2.5 mgIndications:ILD (interstitial lung disease) ([facility]),COPD, group A, by GOLD 2017 classification ([facility]) 2.5 mg NEBULIZER PRN 04/03/2022 04/03/2023 Acti ve Albuterol Sulfate (Proventil) (2.5 MG/3ML) 0.083% inhalation solution 2.5 mgIndications:ILD (interstitial lung disease) ([facility]),COPD, group A, by GOLD 2017 classification (HCC) 2.5 mg NEBULIZER PRN 04/03/2022 04/03/2023 Acti [...] update of inactive term lentigo maligna,rt mandaeism 07/05/2002 0 05/26/2018 Rosacea 07/28/2001 05/26/2018 LOC PRIM [id number] 07/28/2001 05/26/20 18 documented as of this [...] as of this encounter Nursing Notes * Maria Teresa Clifford RN - 03/30/2023 11:33 AM EDT Chair 5. Patient here today for Darzalex Faspro and Xgeva. Patient saw Dr. Garcia today -- see office visit note for details. Overall patient is feeling well today. Labs were WNL for patient and treatment. Patient's glucose was 51 this morning -- patient had 2 Nutrigrain bars and water while here and states he is going to get breakfast when leaving today. Patient wears Dexcom for glucose readings and upon leaving facilitytoday, Dexcom reading was 94. Patient does not have any acute issues or complaints and is comfortable, denies further needs at this time. Functional status at today's visit: Restricted in physically strenuous activity but ambulatory and able to carry out work on a light orsedentary nature, e.g. light house work, office work The drug name, dose, infusion volume, rate and route of administration, expiration date and time, appearance and physical integrity of the drug and rate set on the pump and sequencing of drug administration (as applicable) were verified by me and second sign-in RN. Patient was assessed for symptoms or adverse side effects during treatment. Patient tolerated treatment well without any acute issues or problems. Xgeva given and Darzalex Faspro given, patient will return in 1 month for next treatment. Patient left facility in stable condition and denied any further needs. documented in this encounter Plan of Treatment Upcoming Encounters Date Type Specialty Care Team Description 04/19/2023 Scheduled Telephone Pharmacy [facility] Hem/Onc Tech [address] [place] [address] 04/27/2023 Laboratory Laboratory [facility] Lab Scene [address] [place] [place] [address] 04/27/2023 Office Visit Hematology Oncology Chito Garcia MD [address] [place] [address] 04/27/2023 Hem/Onc Treatment Hematology Oncology [place], Chair 9 Hem Onc Scenery [address] [place] [address] 05/05/2023 Office Visit Palliative Medicine Nan Campos MD [address] [place] [phone] 05/05/2023 Office Visit Pharmacy Pharmacist, [facility] Sp [address] [facility] [address] 06/14/2023 Office Visit Family Medicine Landen Macario DO [address] [facility] [address] 07/28/2023 Office Visit Cardiology Cyril Johns PA-C [address] [place] [address] 10/01/2023 Cardiac Studies Cardiology Fredy Figueroa [facility] [address] [place] [address] Health Maintenance Due Date Last Done Comments [...] this encounter Medical Devices Implanted Type Area Electromedical Equipment Technician Device Identifier Shelf Expiration Date Model / Serial / Lot Lens Intraoc 24.0 - [id number] - [id number] Implanted:Qty: 1 on 08/16/2018 by Adan Colon MD at OR [facility] Right: Eye [employer]USCH [employer] LOMB 11/17/2022 [id number] / [id number] / [id number] Lens Intraoc 24.0 - [id number] - [id number] Implanted:Qty: 1 on 08/23/2018 by Adan Colon MD at OR [facility] Left: Eye BAUSCH & LOMB 06/17/2023 [id number] / [id number] / [id number] Screw [employer] 3.2gxr97gt - [id number] Implanted:Qty: 1 on 12/07/2019 by Amilcar Saavedra MD at OR [facility] Left: Foot EXACTECH [id number] / / documented as of this encounter Visit Diagnoses Diagnosis Multiple myeloma not having achieved remission (HCC)- Primary Multiple myeloma, without mention of having achieved remission Encounter for antineoplastic chemotherapy documented in this encounter Administered Medications Active Administered Medications - up to 3 most recent administrations Medication Order MAR Action Action Date Dose Rate Site diphenhydrAMINE (Benadryl) inj 50 mg 50 mg, IV Push, ONCE PRN Other, Hypersensitivity Reaction, Starting on Wed03/30/23 at 1000, Until Wed03/31/23 at 0959, For 24 hours EPINEPHrine 1 MG/ML inj 0.3 mg 0.3 mg, Intramuscular, ONCE PRN Other, Hypersensitivity Reaction or Anaphylaxis, Starting on Wed03/30/23 at 1000, Until Wed03/31/23 at 0959, For 24 hours Hydrocortisone Sod Suc (PF) (Solu-Cortef) inj 100 mg 100 mg, IV Push, ONCE PRN Other, Hypersensitivity Reaction, Starting on Wed03/30/23 at 1000, Until Wed03/31/23 at 0959, For 24 hours meperidine (Demerol) 25 MG/ML inj 25 mg 25 mg, IV Push, ONCE PRN Shivering, Starting on Wed03/30/23 at 1000, Until Wed03/31/23 at 0959, For 24 hours Inactive Administered Medications - up to 3 most recent administrations Medication Order MAR Action Action Date Dose Rate Site Acetaminophen (Tylenol) tab 650 mg 650 mg, Oral, ONCE, On Wed03/30/23 at 1045, For 1 dose, Maximum of 4 grams (4000 mg) per day. Given 03/30/2023 10:04 AM EDT 650 mg Pqevwydmoar-zgyfiqhrzkzrb-f ihj (Darzalex Faspro) 1800 mg-92039 units/ 15 ml subcut inj 15 mL, Subcutaneous, ONCE, On Wed03/30/23 at 1130, For 1 dose, Inject subcutanteously into abdomen over 3 to 5 minutes Given 03/30/2023 10:26 AM EDT 15 mL Abdomen Right Lower Denosumab (Xgeva) subcut inj 120 mg 120 mg, Subcutaneous, ONCE, On Wed03/30/23 at 1045, For 1 dose Given 03/30/2023 10:27 AM EDT 120 mg Arm Left Upper diphenhydrAMINE (Benadryl) cap 50 mg 50 mg, Oral, ONCE, On Wed03/30/23 at 1045, For 1 dose Given 03/30/2023 10:04 AM EDT 50 mg documented in this [...] and were consensually agreed upon. Care Teams Door Maker Relationship Specialty Start Date End Date Landen Macario, DO [address] [place] [address] PCP - General Family Medicine 02/09/22 documented as of this encounter
--- OUTSIDE RECORDS SUMMARY | 2023-08-26 18:18 | External Medical Summary ---
Author Name Unknown Address Unknown Organization K09[facility] [address] Laboratory Report Ordering Provider Test Date Status ANIBAL FIERRO 04/27/2023 07:31:33 Final Observation Date Value Abnormality Reference (Units ) Status SYNC LEUKOCYTES IN BLOOD BY AUTOMATED COUNT 04/27/2023 07:31:33 4.36 4.00-10.80 (K/uL) Final Segs 04/27/2023 07:31:33 49.8 40.0-75.0 (%) Final Lymphs % 04/27/2023 07:31:33 23.9 18.0-42.0 (%) Final Monos 04/27/2023 07:31:33 24.5 Above high normal 1.0-11.0 (%) Final Eosinophils 04/27/2023 07:31:33 1.1 0.0-6.0 (%) Final Basos 04/27/2023 07:31:33 0.7 0.0-2.0 (%) Final Absolute Segs 04/27/2023 07:31:33 2.17 1.80-7.70 (K/uL) Final Lymphs, absolute 04/27/2023 07:31:33 1.04 1.00-4.80 (K/ul) Final Monos, Abs 04/27/2023 07:31:33 1.07 0.00-1.10 (K/uL) Final Eos, Abs 04/27/2023 07:31:33 0.05 0.00-0.70 (K/uL) Final Basos, Abs 04/27/2023 07:31:33 0.03 0.00-0.20 (K/uL) Final Performing Location [facility] [place] [address]
--- OUTSIDE RECORDS SUMMARY | 2023-08-26 18:18 | External Medical Summary ---
Author Name Unknown Address Unknown Organization K09:[facility] [address] [place] [address] Laboratory Report Ordering Provider Test Date Status ANIBAL FIERRO 04/27/2023 07:31:33 Final Observation Date Value Abnormality Reference (Units ) Status BUN 04/27/2023 07:31:33 19 6-20 (mg/dL) Final Creatinine 04/27/2023 07:31:33 1.4 Above high normal 0.6-1.2 (mg/dL) Final Glomerular filtration rate/1.73 sq M.predicted [Volume Rate/Area] in Serum, Plasma or Blood by Creatinine-based formula (CKD-EPI) 04/27/2023 07:31:33 51 Below low normal >=60 (mL/min) Final eGFR is calculated based on the CKD-EPI 2020 equation SODIUM 04/27/2023 07:31:33 140 135-146 (m mol/L) Final Potassium 04/27/2023 07:31:33 4.9 3.5-5.1 (m mol/L) Final Cl 04/27/2023 07:31:33 103 98-107 (mm ol/L) Final CO2 04/27/2023 07:31:33 23 22-32 (mmo l/L) Final Anion gap 04/27/2023 07:31:33 14 7-15 (mmol /L) Final Glucose 04/27/2023 07:31:33 125 Above high normal 70 -120 (mg/dL) Final Albumin 04/27/2023 07:31:33 4.2 3.8-5.0 (g /dL) Final AST (Aspartate aminotransferase) 04/27/2023 07:31:33 17 10-50 (U/L) Fin al Alk Phos 04/27/2023 07:31:33 60 35-130 (U/ L) Final Bilirubin, Total 04/27/2023 07:31:33 0.5 <=1 .2 (mg/dL) Final Calcium 04/27/2023 07:31:33 9.0 8.4-10.2 ( mg/dL) Final Protein 04/27/2023 07:31:33 6.7 6.0-8.3 (g /dL) Final ALT (Alanine aminotransferase) 04/27/2023 07:31:33 22 10-50 (U/L) Marcelo lobato Performing Location [facility] [address] [place] [address]
--- OUTSIDE RECORDS SUMMARY | 2023-08-26 18:18 | External Medical Summary ---
Author Name Unknown Address Unknown Organization K09:[facility] [place] [address] Laboratory Report Ordering Provider Test Date Status ANIBAL FIERRO 04/27/2023 07:31:33 Final Observation Date Value Abnormality Reference (Units ) Status Phosphate 04/27/2023 07:31:33 3.6 2.5-4.8 (m g/dL) Final Performing Location [facility] [place] [address]
--- OUTSIDE RECORDS SUMMARY | 2023-08-26 18:18 | External Medical Summary | Summary of Care ---
Author Name Unknown Organization [facility] Address [address] [place] [address] Phone [phone] Care Team Providers Care Programmer Developer Name Role Phone Landen Macario Primary Care Provider [phone] Reason for Visit * Reason Comments eRx-Medication Refill Encounter Details Date Type Department Care Team Description 04/13/2023 Refill Hematology/Oncology Treatment, [place] [address] [place] [id number] Chito Barnett MD [address] [place] [address] Multiple myeloma not having achieved remission (HCC) Allergies Active Allergy Reactions Severity Noted Date Comments Tizanidine 06/27/2021 documented as of this encounter (statuses as of 04/19/2023) Medications Medication Sig Dispensed Refills Start Date [...] Take 1 tablet daily, Reason: per Dr. Barnett, Reported on 11/12/2022 Gabapentin 300 MG Oral [...] or Wheezing. 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 Metastatic cancer to bone 10/22/2021 Acute systolic congestive heart failure 10/08/2021 Multiple myeloma not having achieved rem ission 08/28/2021 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 09/08/2019 Gastroesophageal reflux disease without esophagitis 03/15/2019 detention (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 of insulin 11/25 Paroxysmal atrial [...] as of this encounter (statuses as of 04/19/2023) Resolved Problems Problem Noted Date Resolved Date [...] 0 05/26/2018 Rosacea 07/28/2001 05/26/2018 LOC PRIM [id number] 07/28/2001 05/26/20 18 documented as of this encounter (statuses as of 04/19/2023) Immunizations Name Administration Dates Next Due COVID-19 [...] Telephone Encounter - Maile Shipman RN - 04/19/2023 8:56 AM EDTSigned Prescriptions: Disp Refills Lenalidomide 10 MG Oral Capsule (Revlimid) 21 Cap*0 Sig: TAKE 1 CAPSULE BY MOUTH 1 TIME A DAY FOR 21 DAYS ON THEN 7 DAYS OFFAuthorizing Provider: CHITO BARNETT * Telephone Encounter - Glo Terry RN - 04/15/2023 1:04 PM EDT Prescriber survey complete, auth #[id number] * Telephone Encounter - Interface, E-Rx Ss Inbound - 04/15/2023 1:28 AM EDT Pending Prescriptions: Disp Refills Lenalidomide 10 MG Oral Capsule (Revlimid)* 0 Sig: TAKE 1 CAPSULE BY MOUTH 1 TIME A DAY FOR 21 DAYS ON THEN 7 DAYS OFF * Telephone Encounter - Interface, E-Rx Ss Inbound - 04/13/2023 1:48 PM EDT Pending Prescriptions: Disp Refills Lenalidomide 10 MG Oral Capsule (Revlimid)* 0 Sig: TAKE 1 CAPSULE BY MOUTH 1 TIME A DAY FOR 21 DAYS ON THEN 7 DAYS OFF documented in this encounter Plan of Treatment Upcoming Encounters Date Type Specialty Care Team Description 04/27/2023 Laboratory Laboratory [place], Lab Scenery [address] [place] [address] 04/27/2023 Office Visit Hematology Oncology Chito Barnett MD [address] [place] [address] 04/27/2023 Hem/Onc Treatment Hematology Oncology [place], Chair 9 Hem Onc Scenery [address] [place] [address] 05/05/2023 Office Visit Palliative Medicine Nan Campos MD [address] [place] [address] 05/05/2023 Office Visit Pharmacy Pharmacist, [facility] Sp [address] [place] [address] 05/24/2023 [facility] [address] [place] [address] 06/14/2023 Office Visit Family Medicine Landen Macario DO [address] [place] [address] 07/28/2023 Office Visit Cardiology Cyril Johns PA-C [address] [place] [address] 10/01/2023 Cardiac Studies Cardiology Fredy Figueroa [facility] [address] [place] [address] Health Maintenance Due Date Last Done Comments [...] 01/04/2023, 10/08/2022, 05/15/2022 Yearly B-12 03/02/2024 03/02/2023, 07/02/2022, 07/08/2021, Additional history exists GFR 03/30/2024 03/30/2023, [...] this encounter Medical Devices Implanted Type Area Certified Credit Counselor Device Identifier Shelf Expiration Date Model / Serial / Lot Lens Intraoc 24.0 - [id number] - [id number] Implanted:Qty: 1 on 08/16/2018 by Adan Colon MD at OR [facility] Right: Eye BAUSCH [employer] LOMB 11/17/2022 [id number] / [id number] / [id number] Lens Intraoc 24.0 - [id number] - [id number] Implanted:Qty: 1 on 08/23/2018 by Adan Colon MD at OR [facility] Left: Eye BAUSCH & LOMB 06/17/2023 [id number] / [id number] / [id number] Screw [employer] 3.0ums97wm - [id number] Implanted:Qty: 1 on 12/07/2019 by Amilcar Saavedra MD at OR [facility] Left: Foot EXACTECH [id number] / / documented as of this encounter [...] and were consensually agreed upon. Care Teams Programmer Developer Relationship Specialty Start Date End Date Landen Macario, DO [address] [place] [address] PCP - General Family Medicine 02/09/22 documented as of this encounter
--- OUTSIDE RECORDS SUMMARY | 2023-08-26 18:18 | External Medical Summary | Summary of Care ---
Author Name Unknown Organization [facility] Address [address] [facility] [address] Phone [phone] Care Team Providers Care Business Services Representative Name Role Phone AhsanLanden nava Primary Care Provider [phone] Encounter Details Date Type Department Care Team Description 04/22/2023 Orders Only Hematology/Oncology Treatment, [place] [address] [place] [phone] Chito Garcia MD [address] [place] [address] Allergies Active Allergy Reactions Severity Noted Date Comments Tizanidine 06/27/2021 documented as of this encounter (statuses as of 04/22/2023) Medications Medication Sig Dispensed Refills Start Date [...] or Wheezing. 18 g 3 04/03/2022 Active R55-Bnpdyj 1 MG Oral Tablet Chewable (Methylcobalamin) Take [...] 1 Each 3 03/04/2023 Active Dexcom G7 Special Procedure Tech Device Use to check blood sugar 1 [...] as of this encounter (statuses as of 04/22/2023) Active Problems Problem Noted Date Chronic systolic (congestive) heart fail ure 06/25/2022 Coronary artery disease invo lving [place] coronary artery of 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 11/25 Paroxysmal atrial [...] as of this encounter (statuses as of 04/22/2023) Resolved Problems Problem Noted Date Resolved Date [...] 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,rt scientology 07/05/2002 0 05/26/2018 Rosacea 07/28/2001 05/26/2018 LOC PRIM [id number] 07/28/2001 05/26/20 18 documented as of this encounter (statuses as of 04/22/2023) Immunizations Name Administration Dates Next Due COVID-19 [...] 04/27/2023 Laboratory Laboratory [place], Lab Scen[address] [place] [address] 04/27/2023 Office Visit Hematology Oncology Chito Garcia MD [address] [place] [address] 04/27/2023 Hem/Onc Treatment Hematology Oncology [place], Chair 9 Hem Onc Sc[address] [place] [address] 05/05/2023 Office Visit Palliative Medicine Nan Campos [facility] [place] [address] 05/05/2023 Office Visit Pharmacy Pharmacist, [facility] Sp 200 [facility] [place] [address] 05/24/2023 Scheduled Telephone Pharmacy [facility] Hem[facility]Onc Tech [address] [facility] [phone] 06/14/2023 Office Visit Family Medicine Landen Macario, DO [address] [place] [address] 07/28/2023 Office Visit Cardiology Cyril Johns PA-C [address] [place] [address] 10/01/2023 Cardiac Studies Cardiology Fredy Figueroa [facility] [address] [place] [address] Health Maintenance Due Date Last Done Comments [...] this encounter Medical Devices Implanted Type Area Toter Device Identifier Shelf Expiration Date Model / Serial / Lot Lens Intraoc 24.0 - [id number] - [id number] Implanted:Qty: 1 on 08/16/2018 by Adan Colon MD at OR [facility] Right: Eye BAUSCH [employer] LOMB 11/17/2022 [id number] / [id number] / [id number] Lens Intraoc 24.0 - [id number] - [id number] Implanted:Qty: 1 on 08/23/2018 by Adan Colon MD at OR [facility] Left: Eye BAUSCH [employer] LOMB 06/17/2023 [id number] / [id number] / [id number] Screw [employer] 3.1udd22nk - [id number] Implanted:Qty: 1 on 12/07/2019 by Amilcar Saavedra MD at OR [facility] Left: Foot EXACTECH [id number] / / documented as of this encounter [...] and were consensually agreed upon. Care Teams Business Services Representative Relationship Specialty Start Date End Date Landen Macario, DO [address] [place] [address] PCP - General Family Medicine 02/09/22 documented as of this encounter
--- OUTSIDE RECORDS SUMMARY | 2023-08-26 18:18 | External Medical Summary | Summary of Care ---
Author Name Unknown Organization [facility] Address [address] [facility] [address] Phone [phone] Care Team Providers Care Bill Board Poster Name Role Phone RenaldoLanden Con MCCABE Primary Care Provider [phone] Reason for Visit * Reason Comments Outpatient Testing Encounter Details Date Type Department Care Team Description 04/27/2023 Laboratory Laboratory Scenery [place] [address] [place] [id number] [facility] Lab Scenery [address] [place] [address] Multiple myeloma not having achieved remission (HCC) [...] or Wheezing. 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 Metastatic cancer to bone 10/22/2021 Acute systolic congestive heart failure 10/08/2021 Multiple myeloma not having achieved rem ission 08/28/2021 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 09/08/2019 Gastroesophageal reflux disease without esophagitis 03/15/2019 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 11/25 Paroxysmal atrial [...] 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,rt sikh 07/05/2002 0 05/26/2018 Rosacea 07/28/2001 05/26/2018 LOC PRIM [id number] 07/28/2001 05/26/20 18 documented as of this encounter (statuses as of 04/27/2023) Immunizations Name Administration Dates Next Due COVID-19 mRNA, LNP-s, No Pre serve, 2-Dose Series (Moderna) 08/27/2021,01/04/2021,12/02/2020 Covid-19 Mrna, Lnp-s, No Pre serve, Booster (Moderna) 05/07/2022 Covid-19, Mrna, Lnp-s, Pf, B ivalent, 30 Mcg, IM, 12 yrs and above (BitPass) 09/04/2022 H1N1 2009 Influenza, IM 09/22/2009 PPD [...] Date Type Specialty Care Team Description 04/27/2023 Office Visit Hematology Oncology Radha, Chito Hood MD [address] [place] [address] Arrived 04/27/2023 Hem/Onc Treatment Hematology Oncology [place], Chair 9 Hem Onc Scenery [address] [place] [address] Arrived 05/05/2023 Office Visit Palliative Medicine Nan Campos MD [address] [place], [place] [address], [place] [address] 05/05/2023 Office Visit Pharmacy Pharmacist, [facility] [address] [facility] [place] [address] 05/24/2023 Scheduled Telephone Pharmacy Atilio Heath Hem/Onc Tech [address] [facility] [place] [phone] 06/14/2023 Office Visit Family Medicine Landen Macario, DO 200 [facility] [place] [address] 07/28/2023 Office Visit Cardiology Cyril Johns PA-C [address] [place] [address] 10/01/2023 Cardiac Studies Cardiology Fredy Figueroa [facility] [address] [place] [address] Pending Results Name Type Priority Associated Diagnoses Date /Time PHOSPHORUS Lab STAT Multiple myeloma not having achieved remission (HCC) 04/27/2023 7:31 AM EDT COMPREHENSIVE METABOLIC PANEL Lab STAT Multiple myeloma not having achieved remission (HCC) 04/27/2023 7:31 AM EDT SERUM PROTEIN ELECTROPHORESIS REFLEX PROFILE Lab STAT Multiple myeloma not having achieved remission (HCC) 04/27/2023 7:31 AM EDT SERUM FREE LIGHT CHAINS Lab STAT Multiple myeloma not having achieved remission (HCC) 04/27/2023 7:31 AM EDT IMMUNOGLOBULIN QUANTITATIVE Lab STAT Multiple myeloma not having achieved remission (HCC) 04/27/2023 7:31 AM EDT Health Maintenance Due Date Last [...] MONITORING YEARLY 01/05/2024 01/04/2023, 10/08/2022, 05/15/2022 GFR 03/30/2024 03/30/2023, 02/15, 02/02/2023, Additional history [...] this encounter Medical Devices Implanted Type Area Title One Reading Teacher Device Identifier Shelf Expiration Date Model / Serial / Lot Lens Intraoc 24.0 - [id number] - [id number] Implanted:Qty: 1 on 08/16/2018 by Adan Colon MD at OR [facility] Right: Eye [employer] 11/17/2022 [id number] / [id number] / [id number] Lens Intraoc 24.0 - [id number] - [id number] Implanted:Qty: 1 on 08/23/2018 by Adan Colon MD at [facility] Left: Eye [employer] 06/17/2023 [id number] / [id number] / [id number] Screw [employer] 3.7zym40so - [id number] Implanted:Qty: 1 on 12/07/2019 by Amilcar Saavedra MD at OR [facility] Left: Foot EXACTECH [id number] / / documented as of this encounter Procedures Procedure Name Priority Date/Time Associated Diagnosis Comments DIFFERENTIAL, AUTOMATED STAT 04/27/2023 7:31 AM EDT Multiple myeloma not having achieved remission (HCC) CBC WITH WBC DIFFERENTIAL STAT 04/27/2023 7:31 AM EDT Multiple myeloma not having achieved remission (HCC) CBC STAT 04/27/2023 7:31 AM EDT Multiple myeloma not having achieved remission (HCC) documented in this encounter Results * (ABNORMAL) DIFFERENTIAL, AUTOMATED (04/27/2023 7:31 AM EDT) WBC 4.36 4.00 - 10.80 K/uL 04/27/2023 7:36 AM EDT [facility] [place] 56-02 Neutrophils % 49.8 40.0 - 75.0 % 04/27/2023 7:36 AM EDT [facility] [place] 56-02 Lymphocytes % 23.9 18.0 - 42.0 % 04/27/2023 7:36 AM EDT [facility] [place] 56-02 Monocytes % 24.5(H) 1.0 - 11.0 % 04/27/2023 7:36 AM EDT [facility] [place] 56-02 Eosinophils % 1.1 0.0 - 6.0 % 04/27/2023 7:36 AM EDT LABORATORY [facility] 56-02 Basophils % 0.7 0.0 - 2.0 % 04/27/2023 7:36 AM EDT LABORATORY [facility] COL[facility] 56-02 Absolute Neutrophils 2.17 1.80 - 7.70 K/uL 04/27/2023 7:36 AM EDT [facility] 56 Absolute Lymphocytes 1.04 1.00 - 4.80 K/ul 04/27/2023 7:36 AM EDT [facility] 56 Absolute Monocytes 1.07 0.00 - 1.10 K/uL 04/27/2023 7:36 AM EDT [facility] 56 Absolute Eosinophils 0.05 0.00 - 0.70 K/uL 04/27/2023 7:36 AM EDT [facility] 56 Absolute Basophils 0.03 0.00 - 0.20 K/uL 04/27/2023 7:36 AM EDT [facility] 56 Blood Venous blood specimen / Unknown Venipuncture / Unknown 04/27/2023 7:31 AM EDT 04/27/2023 7:31 AM EDT Chito Garcia MD LAB BLOOD ORDERA BLES Performing Organization Address City/State/[facility] Co de Phone Number [facility] [address] [place] [address] * (ABNORMAL) CBC (04/27/2023 7:31 AM EDT) WBC 4.36 4.00 - 10.80 K/uL 04/27/2023 7:36 AM EDT [facility] 56 RBC 3.28 4.50 - 5.25 M/uL 04/27/2023 7:36 AM EDT [facility] 56 HGB 10.5(L) 14.0 - 16.8 g/dL 04/27/2023 7:36 AM EDT [facility] 56 HCT 32.5(L) 40.0 - 48.4 % 04/27/2023 7:36 AM EDT [facility] 56 MCV 99.1 82.0 - 99.5 fL 04/27/2023 7:36 AM EDT [facility] 56 MCH 32.0 27.0 - 34.0 pg 04/27/2023 7:36 AM EDT [facility] 56 MCHC 32.3 32.0 - 36.0 g/dL 04/27/2023 7:36 AM EDT [facility] 56 RDW 16.9 11.5 - 15.5 % 04/27/2023 7:36 AM EDT [facility] 56 PLT 148 140 - 400 K/uL 04/27/2023 7:36 AM EDT [facility] 56 MPV 10.1 6.6 - 11.1 fL 04/27/2023 7:36 AM EDT [facility] 56 Blood Venous blood specimen / Unknown Venipuncture / Unknown 04/27/2023 7:31 AM EDT 04/27/2023 7:31 AM EDT Chito Garcia MD LAB BLOOD ORDERA BLES [facility] [address] documented in this encounter Visit Diagnoses Diagnosis [...] and were consensually agreed upon. Care Teams Bill Board Poster Relationship Specialty Start Date End Date Landen Macario, DO 200 [facility] [place] [address] PCP - General Family Medicine 02/09/22 documented as of this encounter
--- OUTSIDE RECORDS SUMMARY | 2023-08-26 18:19 | External Medical Summary | Summary of Care ---
Author Name Unknown Organization [facility] Address [address] [facility] [address] Phone [phone] Care Team Providers Care Ground Water Technician Name Role Phone RoselynLandne cameron Con MCCABE Primary Care Provider [phone] Reason for Visit * Reason Comments Outpatient Testing Encounter Details Date Type Department Care Team Description 03/30/2023 Laboratory Laboratory Scenery [facility] [address] [place] [phone] [facility] Lab Scenery [address] [place] [address] Multiple myeloma not having achieved remission (HCC) [...] or Wheezing. 18 g 3 04/03/2022 Active B48-Oxftgx 1 MG Oral Tablet Chewable (Methylcobalamin) Take [...] before bedtime. 180 Tablet 3 02/04/2023 Active Victoza 18 MG/3ML Subcutaneous Solution Pen-injector (Liraglutide)Indica tions:Type 2 diabetes mellitus with peripheral vascular disease (HCC) Inject 1.8 mg under the skin in the morning. 27 mL 3 02/15/2023 Active Insulin Glargine Solostar 100 UNIT/ML Subcutaneous Solution Pen-injector (Basaglar Elder)Indications :Type 2 diabetes mellitus with hemoglobin A1c goal of less than 8.0% (HCC) Inject 40 Units under the skin every night at bedtime. 45 mL 1 02/15/2023 Active Dexcom G7 Sensor Use to check blood sugar 1 Each 3 03/04/2023 Active Dexcom G7 Health Technical Writer Device Use to check blood sugar 1 Each 1 03/04/2023 Active Lenalidomide 10 MG Oral Capsule (Revlimid)Indicatio ns:Multiple myeloma not having achieved remission ([facility]) TAKE 1 CAPSULE BY MOUTH 1 TIME A DAY FOR 21 DAYS ON THEN 7 DAYS OFF 21 Capsule 0 03/21/2023 Active Hospital, Clinic, or Other Facility Administered Medication Ordered Dose Route Frequency Start Date End Date Status Albuterol Sulfate (Proventil) (5 MG/ML) 0.5% *conc* inhalation solution 2.5 mgIndications:ILD (interstitial lung disease) ([facility]),COPD, group A, by GOLD 2017 classification ([facility]) 2.5 mg NEBULIZER PRN 04/03/2022 04/03/2023 Acti ve Albuterol Sulfate (Proventil) (2.5 MG/3ML) 0.083% inhalation solution 2.5 mgIndications:ILD (interstitial lung disease) ([facility]),COPD, group A, by GOLD 2017 classification ([facility]) 2.5 mg NEBULIZER PRN 04/03/2022 04/03/2023 Acti ve documented as of this encounter (statuses as of 03/30/2023) Active Problems Problem Noted Date Chronic systolic (congestive) heart fail ure 06/25/2022 Coronary artery disease invo lving elem coronary artery of elem heart without angina pectoris 06/25/2022 Presence of [...] disease without esophagitis 03/15/2019 long term care pharmacist (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 of insulin 11/25 Paroxysmal atrial [...] 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,rt denominational 6/07/05/2002 0 05/26/2018 Rosacea 07/28/2001 05/26/2018 LOC PRIM [id number] 07/28/2001 08/09/20 18 documented as of this encounter (statuses [...] Encounters Date Type Specialty Care Team Description 03/30/2023 Office Visit Hematology Oncology Chito Garcia MD 200 [facility] [place] [address] Arrived 03/30/2023 Hem/Onc Treatment Hematology Oncology [place], Chair 2 Hem Onc Scenery [address] [place] [address] Arrived 04/19/2023 Scheduled Telephone Pharmacy [place] [facility] Hem/Onc Tech [address] [place] [address] 04/27/2023 Laboratory Laboratory [place], Lab Scenery 200 [facility] [place] [address] 04/27/2023 Office Visit Hematology Oncology Chito Garcia MD 200 [place] [address] 04/27/2023 Hem/Onc Treatment Hematology Oncology [place], Chair 9 Hem Onc Scenery [address] [facility] [address] 05/05/2023 Office Visit Palliative Medicine Nan Campos MD [address] [place] [address] [place] [phone] 06/14/2023 Office Visit Family Medicine Landen Macario DO 200 [facility] [place] [address] 07/28/2023 Office Visit Cardiology Cyril Johns PA-C [address] [place] [address] 10/01/2023 Cardiac Studies Cardiology [facility], Pacer [address] [place] [address] Pending Results Name Type Priority Associated Diagnoses Date /Time PHOSPHORUS Lab STAT Multiple myeloma not having achieved remission (HCC) 03/30/2023 8:46 AM EDT COMPREHENSIVE METABOLIC PANEL Lab STAT Multiple myeloma not having achieved remission (HCC) 03/30/2023 8:46 AM EDT SERUM PROTEIN ELECTROPHORESIS REFLEX PROFILE Lab STAT Multiple myeloma not having achieved remission (HCC) 03/30/2023 8:46 AM EDT SERUM FREE LIGHT CHAINS Lab STAT Multiple myeloma not having achieved remission (HCC) 03/30/2023 8:46 AM EDT IMMUNOGLOBULIN QUANTITATIVE Lab STAT Multiple myeloma not having achieved remission (HCC) 03/30/2023 8:46 AM EDT Health Maintenance Due Date Last [...] MONITORING YEARLY 01/05/2024 01/04/2023, 10/08/2022, 05/15/2022 GFR 03/02/2024 03/02/2023, 01/16, 01/04/2023, Additional history exists Yearly B-12 03/02/2024 03/02/2023, 07/0 02/2022, 07/08/2021, Additional history exists DTaP,Tdap,and Td Vaccines (2 [...] this encounter Medical Devices Implanted Type Area Mental Health Consultant Device Identifier Shelf Expiration Date Model / Serial / Lot Lens Intraoc 24.0 - [id number] - [id number] Implanted:Qty: 1 on 08/16/2018 by Adan Colon MD at OR [facility] Right: Eye [employer] 11/17/2022 [id number] / [id number] / [id number] Lens Intraoc 24.0 - [id number] - [id number] Implanted:Qty: 1 on 08/23/2018 by Adan Colon MD at OR [facility] Left: Eye [employer] 06/17/2023 [id number] / [id number] / [id number] Screw [employer] [id number] - [id number] Implanted:Qty: 1 on 12/07/2019 by Amilcar Saavedra MD at OR [facility] Left: Foot EXACTECH [id number] / / documented as of this encounter Procedures Procedure Name Priority Date/Time Associated Diagnosis Comments DIFFERENTIAL, AUTOMATED STAT 03/30/2023 8:46 AM EDT Multiple myeloma not having achieved remission (HCC) CBC WITH WBC DIFFERENTIAL STAT 03/30/2023 8:46 AM EDT Multiple myeloma not having achieved remission (HCC) CBC STAT 03/30/2023 8:46 AM EDT Multiple myeloma not having achieved remission (HCC) documented in this encounter Results * (ABNORMAL) DIFFERENTIAL, AUTOMATED (03/30/2023 8:46 AM EDT) WBC 3.98(L) 4.00 - 10.80 K/uL 03/30/2023 9:00 AM EDT [facility] [place] 56-02 Neutrophils % 53.7 40.0 - 75.0 % 03/30/2023 9:00 AM EDT [facility] [place] 56-02 Lymphocytes % 18.6 18.0 - 42.0 % 03/30/2023 9:00 AM EDT [facility] [place] 56-02 Monocytes % 23.9(H) 1.0 - 11.0 % 03/30/2023 9:00 AM EDT [facility] [place] 56-02 Eosinophils % 2.8 0.0 - 6.0 % 03/30/2023 9:00 AM EDT [facility] [place] 56-02 Basophils % 1.0 0.0 - 2.0 % 03/30/2023 9:00 AM EDT [facility] [place] 56-02 Absolute Neutrophils 2.14 1.80 - 7.70 K/uL 03/30/2023 9:00 AM EDT [facility] [place] 56-02 Absolute Lymphocytes 0.74(L) 1.00 - 4.80 K/ul 03/30/2023 9:00 AM EDT [facility] [place] 56-02 Absolute Monocytes 0.95 0.00 - 1.10 K/uL 03/30/2023 9:00 AM EDT [facility] [place] 56-02 Absolute Eosinophils 0.11 0.00 - 0.70 K/uL 03/30/2023 9:00 AM EDT [facility] [place] 56-02 Absolute Basophils 0.04 0.00 - 0.20 K/uL 03/30/2023 9:00 AM EDT [facility] [place] 56-02 Blood Venous blood specimen / Unknown Venipuncture / Unknown 03/30/2023 8:46 AM EDT 03/30/2023 8:46 AM EDT Chito Garcia MD LAB BLOOD ORDERA BLES [facility] 56 [address] [place], [place] [id number] * (ABNORMAL) CBC (03/30/2023 8:46 AM EDT) WBC 3.98(L) 4.00 - 10.80 K/uL 03/30/2023 9:[address] EDT [address] RBC 3.17 4.50 - 5.25 M/uL 03/30/2023 9:00 AM EDT [address] HGB 10.0(L) 14.0 - 16.8 g/dL 03/30/2023 9:00 AM EDT [facility] 56 HCT 31.2(L) 40.0 - 48.4 % 03/30/2023 9:00 AM EDT [facility] 56 MCV 98.4 82.0 - 99.5 fL 03/30/2023 9:00 AM EDT [facility] 56 MCH 31.5 27.0 - 34.0 pg 03/30/2023 9:00 AM EDT [facility] 56 MCHC 32.1 32.0 - 36.0 g/dL 03/30/2023 9:00 AM EDT [facility] 56 RDW 16.5 11.5 - 15.5 % 03/30/2023 9:00 AM EDT [facility] 56 PLT 152 140 - 400 K/uL 03/30/2023 9:00 AM EDT [facility] 56 MPV 10.4 6.6 - 11.1 fL 03/30/2023 9:00 AM EDT [facility] 56 Blood Venous blood specimen / Unknown Venipuncture / Unknown 03/30/2023 8:46 AM EDT 03/30/2023 8:46 AM EDT Chito Garcia MD LAB BLOOD ORDERA BLES [facility] [address] [place] [address] documented in this encounter Visit Diagnoses Diagnosis [...] and were consensually agreed upon. Care Teams Ground Water Technician Relationship Specialty Start Date End Date Landen Macario, DO 200 [facility] [address] PCP - General Family Medicine 02/09/22 documented as of this encounter
--- OUTSIDE RECORDS SUMMARY | 2023-08-26 18:19 | External Medical Summary ---
Author Name Unknown Address Unknown Organization [id number]:LABORATORY [facility] - [facility] [place] [address] Laboratory Report Ordering Provider Test Date Status ANIBAL FIERRO 03/30/2023 08:46:15 Final Observation Date Value Abnormality Reference (Units ) Status [place] light chains, Free, Serum 03/30/2023 08:46:15 10.88 3.30-19.40 (mg/L) Final [place] light chains, free, Serum 03/30/2023 08:46:15 11.30 5.71-26.30 (mg/L) Final KAPPA LAMBDA FLC RATIO 03/30/2023 08:46:15 0.96 0.26-1.65 Final Performing Location [facility] - [facility] [place] [address]
--- OUTSIDE RECORDS SUMMARY | 2023-08-26 18:19 | External Medical Summary ---
Author Name Unknown Address Unknown Organization [id number]:[facility] [place] [address] Laboratory Report Ordering Provider Test Date Status ANIBAL FIERRO 03/30/2023 08:46:15 Final Observation Date Value Abnormality Reference (Units ) Status WBC, Total 03/30/2023 08:46:15 3.98 Below low normal 4. 00-10.80 (K/uL) Final RBC 03/30/2023 08:46:15 3.17 4.50-5.25 (M/uL) Final Hemoglobin 03/30/2023 08:46:15 10.0 Below low normal 14 .0-16.8 (g/dL) Final HCT 03/30/2023 08:46:15 31.2 Below low normal 40. 0-48.4 (%) Final MCV 03/30/2023 08:46:15 98.4 82.0-99.5 (fL) Final MCH 03/30/2023 08:46:15 31.5 27.0-34.0 (pg) Final MCHC 03/30/2023 08:46:15 32.1 32.0-36.0 (g/dL) Final RDW 03/30/2023 08:46:15 16.5 11.5-15.5 (%) Final Platelets 03/30/2023 08:46:15 152 140-400 (K /uL) Final MPV 03/30/2023 08:46:15 10.4 6.6-11.1 ( fL) Final Performing Location [facility] [address]
--- OUTSIDE RECORDS SUMMARY | 2023-08-26 18:19 | External Medical Summary | Summary of Care ---
Author Name Unknown Organization [facility] Address [address] [facility] [address] [address] Phone [phone] Care Team Providers Care Sales Service Route Manager Name Role Phone RoselynLanden cameron Con MCCABE Primary Care Provider [phone] Reason for Visit * Reason Comments Outpatient Testing Encounter Details Date Type Department Care Team Description 03/30/2023 Laboratory Laboratory Scenery [facility] [address] [place] [phone] [facility] Lab Scenery [address] [place] [address] Multiple myeloma not having achieved remission (HCC) [...] or Wheezing. 18 g 3 04/03/2022 Active V96-Yvytks 1 MG Oral Tablet Chewable (Methylcobalamin) Take [...] 1 Each 3 03/04/2023 Active Dexcom G7 Hand Marker Device Use to check blood sugar 1 Each 1 03/04/2023 Active Lenalidomide 10 MG Oral Capsule (Revlimid)Indicatio ns:Multiple myeloma not having achieved remission ([facility]) TAKE 1 CAPSULE BY MOUTH 1 TIME A DAY FOR 21 DAYS ON THEN 7 DAYS OFF 21 Capsule 0 03/21/2023 Active Hospital, Clinic, or Other Facility Administered Medication Ordered Dose Route Frequency Start Date End Date Status Albuterol Sulfate (Proventil) (5 MG/ML) 0.5% *conc* inhalation solution 2.5 mgIndications:ILD (interstitial lung disease) ([facility]),COPD, group A, by GOLD 2017 classification ([facility]) 2.5 mg NEBULIZER PRN 04/03/2022 04/03/2023 Acti ve Albuterol Sulfate (Proventil) (2.5 MG/3ML) 0.083% inhalation solution 2.5 mgIndications:ILD (interstitial lung disease) ([facility]),COPD, group A, by GOLD 2017 classification ([facility]) 2.5 mg NEBULIZER PRN 04/03/2022 04/03/2023 Acti ve documented as of this encounter (statuses as of 03/30/2023) Active Problems Problem Noted Date Chronic systolic (congestive) heart fail ure 06/25/2022 Coronary artery disease invo lving [place] coronary artery of [place] heart without angina pectoris 06/25/2022 Presence of cardiac pacemaker 03/24/2022 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 Metastatic cancer to bone 10/22/2021 Acute systolic congestive heart failure 10/08/2021 Multiple myeloma not having achieved rem ission 08/28/2021 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 09/08/2019 Gastroesophageal reflux disease without esophagitis 03/15/2019 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 (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 of insulin 11/25 Paroxysmal atrial [...] 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,rt confucianism 6/07/05/2002 0 05/26/2018 Rosacea 07/28/2001 05/26/2018 LOC PRIM [id number] 07/28/2001 08/09/20 18 documented as of this [...] Visit Hematology Oncology Chito Garcia MD 200 [place] [address] Arrived 03/30/2023 Hem/Onc Treatment Hematology Oncology [place], Chair 2 Hem Onc Scenery [address] [place] [address] Arrived 04/19/2023 Scheduled Telephone Pharmacy Ivana [facility] Hem/Onc Tech [address] [place] [address] 04/27/2023 Laboratory Laboratory [place], Lab Scenery 200 [facility] [place] [address] 04/27/2023 Office Visit Hematology Oncology Chito Garcia MD 200 [place] [address] 04/27/2023 Hem/Onc Treatment Hematology Oncology [place], Chair 9 Hem Onc Scenery [address] [facility] [address] 05/05/2023 Office Visit Palliative Medicine Nan Campos MD [address] [place] [address] [place] [id number] 06/14/2023 Office Visit Family Medicine Landen Macario DO 200 [facility] [place] [address] 07/28/2023 Office Visit Cardiology Cyril Johns PA-C [address] [place] [address] 10/01/2023 Cardiac Studies Cardiology [facility], Pacer [address] [place] [address] Pending Results Name Type Priority Associated Diagnoses [...] this encounter Medical Devices Implanted Type Area Maintenance Painter Device Identifier Shelf Expiration Date Model / Serial / Lot Lens Intraoc 24.0 - [id number] - [id number] Implanted:Qty: 1 on 08/16/2018 by Adan Colon MD at OR [facility] Right: Eye [employer]OM[employer] 11/17/2022 [id number] / [id number] / [id number] Lens Intraoc 24.0 - [id number] - [id number] Implanted:Qty: 1 on 08/23/2018 by Adan Colon MD at OR [facility] Left: Eye BAUSCH [employer] LOMB 06/17/2023 [id number] / [id number] / [id number] Screw [employer] 3.9rhj12hd - [id number] Implanted:Qty: 1 on 12/07/2019 by Amilcar Saavedra MD at OR [facility] Left: Foot EXACTECH [id number] / / documented as of this encounter [...] 0.20 K/uL 03/30/2023 9:00 AM EDT LABORATORY [place] 56-02 Blood Venous blood specimen / Unknown Venipuncture / Unknown 03/30/2023 8:46 AM EDT 03/30/2023 8:46 AM EDT Chito Garcia MD LAB BLOOD ORDERA BLES [facility] 56 [address] [place], [place] [id number] * (ABNORMAL) CBC (03/30/2023 8:46 AM EDT) WBC 3.98(L) 4.00 - 10.80 K/uL 03/30/2023 9:00 AM EDT [address] RBC 3.17 4.50 - 5.25 M/uL 03/30/2023 9:00 AM EDT [address] HGB 10.0(L) 14.0 - 16.8 g/dL 03/30/2023 9:00 AM EDT [facility] 56 HCT 31.2(L) 40.0 - 48.4 % 03/30/2023 9:00 AM EDT [facility] 56 MCV 98.4 82.0 - 99.5 fL 03/30/2023 9:00 AM EDT [facility] 56 MCH 31.5 27.0 - 34.0 pg 03/30/2023 9:00 AM EDT [facility] 56 MCHC 32.1 32.0 - 36.0 g/dL 03/30/2023 9:00 AM EDT [facility] 56 RDW 16.5 11.5 - 15.5 % 03/30/2023 9:00 AM EDT [facility] 56 PLT 152 140 - 400 K/uL 03/30/2023 9:00 AM EDT [facility] 56 MPV 10.4 6.6 - 11.1 fL 03/30/2023 9:00 AM EDT [facility] 56 Blood Venous blood specimen / Unknown Venipuncture / Unknown 03/30/2023 8:46 AM EDT 03/30/2023 8:46 AM EDT Chtio Garcia MD LAB BLOOD ORDERA BLES [facility] 56 [address] [place] [address] documented in this encounter Visit Diagnoses Diagnosis [...] were consensually agreed upon. Care Teams Sales Service Route Manager Relationship Specialty Start Date End Date Landen Macario, DO 200 [place] [address] PCP - General Family Medicine 02/09/22 documented as of this encounter
--- OUTSIDE RECORDS SUMMARY | 2023-08-26 18:19 | External Medical Summary ---
Author Name Unknown Address Unknown Organization K01:[facility] - [address] [place] [address] Laboratory Report Ordering Provider Test Date Status FIERROANIBAL 03/30/2023 08:46:15 Final Observation Date Value Abnormality Reference (Units ) Status IgG 03/30/2023 08:46:15 302 Below low normal 700 -1600 (mg/dL) Final IgA 03/30/2023 08:46:15 71 70-400 (mg /dL) Final IgM 03/30/2023 08:46:15 17 Below low normal 40- 230 (mg/dL) Final Performing Location [facility] - [address] [place] [address]
--- OUTSIDE RECORDS SUMMARY | 2023-08-26 18:19 | External Medical Summary | Summary of Care ---
Author Name Unknown Organization [facility] Address [address] [place] [facility] [address] Phone [phone] Care Team Providers Care Talent Acquisition Lead Name Role Phone AhsanLanden nava Primary Care Provider [phone] Reason for Visit * Reason Comments Diabetes Follow-Up Dosage Adjustment In Person (Anticoag Cl inic) Encounter Details Date Type Department Care Team Description 03/30/2023 [facility] [place] 200 [facility] [place] [address] Pharmacist1, [facility] 200 [facility] [place] [address] Type 2 diabetes mellitus with hemoglobin A1c goal of less than 8.0% ([facility]; Type 2 diabetes mellitus with peripheral vascular [...] or Wheezing. 18 g 3 04/03/2022 Active U81-Bgfebj 1 MG Oral Tablet Chewable (Methylcobalamin) Take [...] than 8.0% ([facility]) Inject 40 Units under the skin every night at bedtime. 45 mL 1 02/15/2023 Active Dexcom G7 Sensor Use to check blood sugar 1 Each 3 03/04/2023 Active Dexcom G7 Research And Development Director Device Use to check blood sugar [...] inhalation solution 2.5 mgIndications:ILD (interstitial lung disease) ([facility]),COPD, group A, by GOLD 2017 classification ([facility]) 2.5 mg NEBULIZER PRN 04/03/2022 04/03/2023 Acti ve Albuterol Sulfate (Proventil) (2.5 MG/3ML) 0.083% inhalation solution 2.5 mgIndications:ILD (interstitial lung disease) ([facility]),COPD, group A, by GOLD 2017 classification ([facility]) 2.5 mg NEBULIZER PRN 04/03/2022 04/03/2023 Acti ve documented as of this encounter (statuses as of 03/30/2023) Active Problems Problem Noted Date Chronic systolic (congestive) heart fail ure 06/25/2022 Coronary artery disease invo lving [place] coronary artery of [place] heart without angina pectoris 06/25/2022 Presence of cardiac pacemaker 03/24/2022 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 Metastatic cancer to bone 10/22/2021 Acute systolic congestive heart failure 10/08/2021 Multiple myeloma not having achieved rem ission 08/28/2021 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 09/08/2019 Gastroesophageal reflux disease without esophagitis 03/15/2019 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 11/25 Paroxysmal atrial [...] 0 05/26/2018 Rosacea 07/28/2001 05/26/2018 LOC PRIM [id number] 07/28/2001 05/26/20 18 documented as of this encounter (statuses as of 03/30/2023) Immunizations Name Administration Dates Next Due COVID-19 mRNA, LNP-s, No Pre serve, 2-Dose Series (Moderna) 08/27/2021,01/04/2021,12/02/2020 Covid-19 Mrna, Lnp-s, No Pre serve, Booster (Moderna) 05/07/2022 Covid-19, Mrna, Lnp-s, Pf, B ivalent, 30 Mcg, IM, 12 yrs and above (RadioRx) 09/04/2022 H1N1 2009 Influenza, IM 09/22/2009 Hepatitis [...] encounter Progress Notes * Filipe Moya V, [facility] - 03/30/2023 9:00 AM EDT Images from [...] than 8.0% ([facility]) E11.9 BG Readings - Blood sugars controlled. [...] Filipe Moya RPh, PRAVEEN Clinical Pharmacist - Spooler Operator Medication [facility] 03/30/2023, 9:01 AM documented in this encounter Plan of Treatment Upcoming Encounters Date Type Specialty Care Team Description 04/19/2023 Scheduled Telephone Pharmacy Ivana [facility] Hem/Onc Tech [address] [place] [address] 04/27/2023 Laboratory Laboratory [place] [facility] 200 [facility] [place] [address] 04/27/2023 Office Visit Hematology Oncology Chito Garcia MD [address] [place] [address] 04/27/2023 Hem/Onc Treatment Hematology Oncology [place], Chair 9 Hem Onc Scenery 200 [facility] [place] [address] 05/05/2023 Office Visit Palliative Medicine Nan Campos MD [address] [place] [address] 05/05/2023 Office Visit Pharmacy Pharmacist, [facility] 200 [facility] [place] [address] 06/14/2023 Office Visit Family Medicine Landen Macario DO 200 [facility] [place] [address] 07/28/2023 Office Visit Cardiology Cyril Johns PA-C [address] [place] [address] 10/01/2023 Cardiac Studies Cardiology [address] [place] [address] Health Maintenance Due Date Last Done Comments [...] this encounter Medical Devices Implanted Type Area Electronic Coils Supervisor Device Identifier Shelf Expiration Date Model / Serial / Lot Lens Intraoc 24.0 - [id number] - [id number] Implanted:Qty: 1 on 08/16/2018 by Adan Colon MD at OR [facility] Right: Eye [employer] 11/17/2022 [id number] / [id number] / [id number] Lens Intraoc 24.0 - [id number] - [id number] Implanted:Qty: 1 on 08/23/2018 by Adan Colon MD at OR [facility] Left: Eye BAUSCH [employer] LOMB 06/17/2023 [id number] / [id number] / [id number] Screw [employer] 3.1vtt50om - [id number] Implanted:Qty: 1 on 12/07/2019 by Amilcar Saavedra MD at OR [facility] Left: Foot EXACTECH [id number] / / documented as of this encounter [...] and were consensually agreed upon. Care Teams Talent Acquisition Lead Relationship Specialty Start Date End Date Landen Macario, DO 200 [facility] [place] [address] PCP - General Family Medicine 02/09/22 documented as of this encounter
--- OUTSIDE RECORDS SUMMARY | 2023-08-26 18:19 | External Medical Summary ---
Author Name Unknown Address Unknown Organization K09:[facility] [address] [place] [address] Laboratory Report Ordering Provider Test Date Status ANIBAL FIERRO 03/30/2023 08:46:15 Final Observation Date Value Abnormality Reference (Units ) Status SYNC LEUKOCYTES IN BLOOD BY AUTOMATED COUNT 03/30/2023 08:46:15 3.98 Below low normal 4.00-10.80 (K/uL) Final Segs 03/30/2023 08:46:15 53.7 40.0-75.0 (%) Final Lymphs % 03/30/2023 08:46:15 18.6 18.0-42.0 (%) Final Monos 03/30/2023 08:46:15 23.9 Above high normal 1.0-11.0 (%) Final Eosinophils 03/30/2023 08:46:15 2.8 0.0-6.0 (%) Final Basos 03/30/2023 08:46:15 1.0 0.0-2.0 (%) Final Absolute Segs 03/30/2023 08:46:15 2.14 1.80-7.70 (K/uL) Final Lymphs, absolute 03/30/2023 08:46:15 0.74 Below low normal 1.00-4.80 (K/ul) Final Monos, Abs 03/30/2023 08:46:15 0.95 0.00-1.10 (K/uL) Final Eos, Abs 03/30/2023 08:46:15 0.11 0.00-0.70 (K/uL) Final Basos, Abs 03/30/2023 08:46:15 0.04 0.00-0.20 (K/uL) Final Performing Location [facility] [address] [place] [address]
--- OUTSIDE RECORDS SUMMARY | 2023-08-26 18:19 | External Medical Summary | Summary of Care ---
Author Name Unknown Organization [facility] Address [address] [place] [address] Phone [phone] Care Team Providers Care Refrigeration Mechanic Name Role Phone AhsanLanden nava Primary Care Provider [phone] Encounter Details Date Type Department Care Team Description 03/28/2023 Orders Only Hematology/Oncology [facility] 200 [place] [address] Chito Garcia MD 200 [place] [address] Allergies Active Allergy Reactions Severity Noted Date Comments Tizanidine 06/27/2021 documented as of this encounter (statuses as of 03/28/2023) Medications Medication Sig Dispensed Refills Start Date End Date Status LANCET DEVICE MISCIndications:DM type 2, not at goal ([facility]) test bid 100 3 07/27/2007 Active OMEGA 3 1000 MG PO CAPSIndications:Chr onic ischemic heart disease,Dyslipidemi a, goal LDL below 70 2 per day 90 Cap 0 08/22/2013 Active BD Pen Needle Short U/F 31G X 8 MM (Insulin Pen Needle)Indications: Type 2 diabetes mellitus with hemoglobin A1c goal of less than 8.0% ([facility]) USE DIRECTED WITH SOLSTAR 100 Each 3 [...] or Wheezing. 18 g 3 04/03/2022 Active W49-Jrxjea 1 MG Oral Tablet Chewable (Methylcobalamin) Take [...] Solostar 100 UNIT/ML Subcutaneous Solution Pen-injector (Carlosaglzahraa Friedman)Indications :Type 2 diabetes mellitus with hemoglobin A1c goal of less than 8.0% ([facility]) Inject 40 Units under the skin every night at bedtime. 45 mL 1 02/15/2023 Active Dexcom G7 Sensor Use to check blood sugar 1 Each 3 03/04/2023 Active Dexcom G7 Application Manager Device Use to check blood sugar 1 Each 1 03/04/2023 Active Lenalidomide 10 MG Oral Capsule (Revlimid)Indicatio ns:Multiple myeloma not having achieved remission ([facility]) TAKE 1 CAPSULE BY MOUTH 1 TIME A DAY FOR 21 DAYS ON THEN 7 DAYS OFF 21 Capsule 0 03/21/2023 Active Hospital, Clinic, or Other Facility Administered Medication Ordered Dose Route Frequency Start Date End Date Status Albuterol Sulfate (Proventil) (5 MG/ML) 0.5% *conc* inhalation solution 2.5 mgIndications:ILD (interstitial lung disease) ([facility]),COPD, group A, by GOLD 2017 classification ([facility]) 2.5 mg NEBULIZER PRN 04/03/2022 04/03/2023 Acti ve Albuterol Sulfate (Proventil) (2.5 MG/3ML) 0.083% inhalation solution 2.5 mgIndications:ILD (interstitial lung disease) ([facility]),COPD, group A, by GOLD 2017 classification ([facility]) 2.5 mg NEBULIZER PRN 04/03/2022 04/03/2023 Acti ve documented as of this encounter (statuses as of 03/28/2023) Active Problems Problem Noted Date Chronic systolic (congestive) heart fail ure 06/25/2022 Coronary artery disease invo lving [place] coronary artery of [place] heart without angina pectoris 06/25/2022 Presence of cardiac pacemaker 03/24/2022 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 Metastatic cancer to bone 10/22/2021 Acute systolic congestive heart failure 10/08/2021 Multiple myeloma not having achieved rem ission 08/28/2021 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 09/08/2019 Gastroesophageal reflux disease without esophagitis 03/15/2019 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 11/25 Paroxysmal atrial [...] as of this encounter (statuses as of 03/28/2023) Resolved Problems Problem Noted Date Resolved Date [...] 0 05/26/2018 Rosacea 07/28/2001 05/26/2018 LOC PRIM [id number] 07/28/2001 05/26/20 18 documented as of this encounter (statuses as of 03/28/2023) Immunizations Name Administration Dates Next Due COVID-19 [...] Date Type Specialty Care Team Description 03/30/2023 Telemedicine Pharmacy Pharmacist, [facility] Sp [address] [place] [address] 03/30/2023 Laboratory Laboratory [place], Lab Scenery [address] [place] [address] 03/30/2023 Office Visit Hematology Oncology Chito Garcia MD [facility] [place] [address] 03/30/2023 Hem/Onc Treatment Hematology Oncology [place], Chair 2 Hem Onc Scenery [address] [place] [address] 04/19/2023 Scheduled Telephone Pharmacy Ivana [facility] Hem/Onc Tech [address] [place] [address] 04/27/2023 Laboratory Laboratory [place], Lab Scenery [address] [place] [address] 04/27/2023 Office Visit Hematology Oncology Chito Garcia MD [facility] [place] [address] 04/27/2023 Hem/Onc Treatment Hematology Oncology [place], Chair 9 Hem Onc Scenery [address] [place] [address] 05/05/2023 Office Visit Palliative Medicine Nan Campos MD [address] [place] [address] [place], [place] [id number] 06/14/2023 Office Visit Family Medicine Landen Macario, [address] [place] [address] 07/28/2023 Office Visit Cardiology Cyril Johns PA-C [address] [place] [address] 10/01/2023 Cardiac Studies Cardiology [facility] [address] [place] [address] Health Maintenance Due Date Last Done Comments Hepatitis B (3 of 3 - 19+ 3-dose series) 04/17/1994 11/18/1993, 10/18/1993 Zoster Vaccines (2 of 2) 02/21/2013 12/27/2012, 12/16 Pneumococcal Vaccine: 65+ Years (3 - PPSV23 if available, else PCV20) 03/01/2018 03/01/2017, 09/06/2007 Albumin/Creatinine Ratio 12/14/2019 019, 01/03/2018, 06/26/2016, Additional history exists DIABETES-FOOT EXAM 09/16/2021 09/16/2020, 0 12/16/2015, 03/06/2015, Additional history exists COVID-19 Vaccine (6 - Moderna series) 01/02/2023 09/04/2022, 05/07/2022, 08/27/2021, Additional history exists Depression Screening, Annual for [...] Completed 07/07/2022, 07/21/2021, 07/21/2021, Additional history exists GARDASIL-HPV IMMUNIZATION SERIES Aged Out No longer eligible based on patient's age to complete this topic MENINGOCOCCAL (MENACTRA/MENVEO) Aged Out No longer eligible based on patient's age to complete this topic documented as of this encounter Medical Devices Implanted Type Area Materials And Processes Manager Device Identifier Shelf Expiration Date Model / Serial / Lot Lens Intraoc 24.0 - [id number] - [id number] Implanted:Qty: 1 on 08/16/2018 by Adan Colon MD at OR [facility] Right: Eye [employer] 11/17/2022 [id number] / [id number] / [id number] Lens Intraoc 24.0 - [id number] - [id number] Implanted:Qty: 1 on 08/23/2018 by Adan Colon MD at OR [facility] Left: Eye BAUSCH [employer] LOMB 06/17/2023 [id number] / [id number] / [id number] Screw [employer] 3.6dea55va - [id number] Implanted:Qty: 1 on 12/07/2019 by Amilcar Saavedra MD at OR [facility] Left: Foot EXACTECH [id number] / / documented as of this encounter [...] and were consensually agreed upon. Care Teams Refrigeration Mechanic Relationship Specialty Start Date End Date Landen Macario, DO 200 [facility] [place] [address] PCP - General Family Medicine 02/09/22 documented as of this encounter
--- OUTSIDE RECORDS SUMMARY | 2023-08-26 18:19 | External Medical Summary ---
Author Name Unknown Address Unknown Organization K01:[facility] - [address] [facility] [address] Laboratory Report Ordering Provider Test Date Status ANIBAL FIERRO 03/30/2023 08:46:15 Final Observation Date Value Abnormality Reference (Units) Status Protein 08:46:15 5.9 Below low normal 6.0-8.3 (g/dL) Final Albumin/Protein.total [Pure mass fraction] in Serum or Plasma by Electrophoresis 3 08:46:15 3.34 3.30-4.40 (g/dL) Final Alpha 1 globulin/Protein.tota l [Pure mass fraction] in Serum or Plasma by Electrophoresis 3 08:46:15 0.24 0.10-0.30 (g/dL) Final Alpha 2 globulin/Protein.tota l [Pure mass fraction] in Serum or Plasma by Electrophoresis 3 08:46:15 1.10 Above high normal 0.60-1.00 (g/dL) Final Beta globulin/Protein.tota l [Pure mass fraction] in Serum or Plasma by Electrophoresis 3 08:46:15 0.90 0.80-1.30 (g/dL) Final Gamma globulin/Protein.tota l [Pure mass fraction] in Serum or Plasma by Electrophoresis 3 08:46:15 0.33 Below low normal 0.70-1.70 (g/dL) Final Protein Fractions [Interpretation] in Serum or Plasma by Electrophoresis Narrative 3 08:46:15 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 Decreased gamma fraction. Paraprotein concentration is detectable, but less than 0.5 g/dL, unable to be accurately quantified by this method. Final Performing Location [facility] - [address] [facility] [address]
--- OUTSIDE RECORDS SUMMARY | 2023-08-26 18:19 | External Medical Summary | Summary of Care ---
Author Name Unknown Organization [facility] Address [address] [place] [address] Phone [phone] Care Team Providers Care Museum Tour Guide Name Role Phone Landen Macario Primary Care Provider [phone] Reason for Visit * Reason Comments Chemotherapy Encounter Details Date Type Department Care Team Description 03/30/2023 Office Visit Hematology/Oncology [facility] [address] [place] [address] Chito Garcia MD [address] [place] [address] Multiple myeloma not having achieved remission (HCC)* Allergies Active Allergy Reactions Severity Noted Date Comments Tizanidine 06/27/2021 documented as of this encounter (statuses as of 03/30/2023) Medications Medication Sig Dispensed Refills Start Date End Date Status LANCET DEVICE MISCIndications:DM type 2, not at goal ([facility]) test bid 100 3 07/27/2007 Active OMEGA [...] or Wheezing. 18 g 3 04/03/2022 Active X19-Hdzaam 1 MG Oral Tablet Chewable (Methylcobalamin) Take [...] 1 Each 3 03/04/2023 Active Dexcom G7 Train Planner Device Use to check blood sugar 1 [...] inhalation solution 2.5 mgIndications:ILD (interstitial lung disease) ([facility]),COPD, group A, by GOLD 2017 classification ([facility]) 2.5 mg NEBULIZER PRN 04/03/2022 04/03/2023 Acti ve Albuterol Sulfate (Proventil) (2.5 MG/3ML) 0.083% inhalation solution 2.5 mgIndications:ILD (interstitial lung disease) ([facility]),COPD, group A, by GOLD 2017 classification ([facility]) 2.5 mg NEBULIZER PRN 04/03/2022 04/03/2023 Acti ve documented as of this encounter (statuses as of 03/30/2023) Active Problems Problem Noted Date Chronic systolic (congestive) heart fail ure 06/25/2022 Coronary artery disease invo lving [place]osh[place] coronary artery of [place] heart without angina pectoris 06/25/2022 Presence of [...] update of inactive term lentigo maligna,rt congregational 6/07/05/2002 0 05/26/2018 Rosacea 07/28/2001 05/26/2018 LOC PRIM [id number] 07/28/2001 05/26/20 18 documented as of this [...] Sign Reading Time Taken Comments Blood Pressure 158/79 03/30/2023 9:22 AM EDT Pulse 78 03/30/2023 9:22 AM EDT Temperature 36.4 C (97.5 F) 03/30/2023 9:22 AM ED T Respiratory Rate 16 03/30/2023 9:22 AM EDT Oxygen Saturation 96% 03/30/2023 9:22 AM EDT Inhaled Oxygen Concentration - - Weight 70.2 kg (154 lb 12.8 oz) 03/30/2023 9:22 AM EDT Height - - Body Mass Index 21.14 01/11/2023 3:38 PM EDT documented in this encounter Progress Notes * Chito Garcia MD - 03/30/2023 9:35 AM EDT Outpatient Consult Note Data Source: Patient, Epic record. Data Source: Patient, Epic record. 03/30/2023 9:35 AM Dev Hernandez [id number] 77 year old Patient Encounter: HEMATOLOGY/ONCOLOGY [facility] Cancer Diagnosis: Multiple myelomaIgG kappawith lytic [...] in adequate numbers. 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 M:E ratio is approximately [...] discharged on oxygen supplement and currently at [facility]. Interval History: Currently he is on Darzalex plus Revlimid and Decadron with good tolerance and without any significant side effects toxicity. Overall clinically he is doing well without any new symptoms. He is issues with neuropathy and muscle cramps which are stable. Denies any headache, chest pain, shortness breath palpitation abdominal pain or distention, bleeding, bruising, nausea, vomiting, fever, night sweats, weight loss. LABS/IMAGING: Results for orders placed or performed in visit on 03/30/23 PHOSPHORUS Result Value Ref Range Phosphorus 2.8 2.5 - 4.8 mg/dL COMPREHENSIVE METABOLIC PANEL Result Value Ref Range BUN 14 6 - 20 mg/dL Creatinine 1.1 0.6 - 1.2 mg/dL Estimated Glomerular Filtration Rate 69 >=60 mL/min Sodium 141 135 - 146 mmol/L Potassium 3.8 3.5 - 5.1 mmol/L Chloride 107 98 - 107 mmol/L CO2 21 (L) 22 - 32 mmol/L Anion Gap 13 7 - 15 mmol/L Glucose 51 (L) 70 - 120 mg/dL Albumin 3.9 3.8 - 5.0 g/dL AST 15 10 - 50 U/L Alkaline Phosphatase 64 35 - 130 U/L Bilirubin, Total 0.5 <=1.2 mg/dL Calcium 9.0 8.4 - 10.2 mg/dL Protein 6.4 6.0 - 8.3 g/dL ALT 15 10 - 50 U/L CBC Result Value Ref Range WBC 3.98 (L) 4.00 - 10.80 K/uL RBC 3.17 4.50 - 5.25 M/uL HGB 10.0 (L) 14.0 - 16.8 g/dL HCT 31.2 (L) 40.0 - 48.4 % MCV 98.4 82.0 - 99.5 fL MCH 31.5 27.0 - 34.0 pg MCHC 32.1 32.0 - 36.0 g/dL RDW 16.5 11.5 - 15.5 % PLT 152 140 - 400 K/uL MPV 10.4 6.6 - 11.1 fL DIFFERENTIAL, AUTOMATED Result Value Ref Range WBC 3.98 (L) 4.00 - 10.80 K/uL Neutrophils % 53.7 40.0 - 75.0 % Lymphocytes % 18.6 18.0 - 42.0 % Monocytes % 23.9 (H) 1.0 - 11.0 % Eosinophils % 2.8 0.0 - 6.0 % Basophils % 1.0 0.0 - 2.0 % Absolute Neutrophils 2.14 1.80 - 7.70 K/uL Absolute Lymphocytes 0.74 (L) 1.00 - 4.80 K/ul Absolute Monocytes 0.95 0.00 - 1.10 K/uL Absolute Eosinophils 0.11 0.00 - 0.70 K/uL Absolute Basophils 0.04 0.00 - 0.20 K/uL *Note: Due to a large number of results and/or encounters for the requested time period, some results have not been displayed. A complete set of results can be found in Results Review. All his blood counts are in acceptable range with normalization of light chain and immunoglobulin alevel. REVIEW OF SYSTEMS: General: No Fever, chills, [...] bleeding Genitourinary: Denies Hematuria or dysuria Musculoskeletal: Generalized weakness which is getting better Skin: No skin rash or lesions noted Neurologic: stable numbness, no weakness, neuropathic pain or change in cognitive function Psychiatric: No vegetative [...] CAPS 2 per day 90 Cap 0 BD Pen Needle Short U/F 31G X 8 MM (Insulin Pen Needle) USE DIRECTED WITH SOLSTAR 100 Each 3 Calcium Carbonate-Vitamin D 600-400 MG-UNIT Oral Tablet [...] of Breath or Wheezing. 18 g 3 [id number] 1 MG Oral Tablet Chewable (Methylcobalamin) Take [...] 1 Tablet before bedtime. 180 Tablet 3 Victoza 18 MG/3ML Subcutaneous Solution Pen-injector (Liraglutide) Inject 1.8 mg under the skinin the morning. 27 mL 3 Insulin Glargine Solostar 100 UNIT/ML Subcutaneous Solution Pen-injector (Basaglar KwikPen) Inject 40 Units under the skin every night at bedtime. 45 mL 1 Dexcom G7 Sensor Use to check blood sugar 1 Each 3 Dexcom G7 Train Planner Device Use to check blood sugar 1 Each 1 Lenalidomide 10 MG Oral Capsule (Revlimid) TAKE 1 CAPSULE BY MOUTH 1 TIME A DAY FOR 21 DAYS ON THEN 7 DAYS OFF 21 Capsule 0 Current Facility-Administered Medications Medication Dose Route Frequency Provider Last Rate Last Admin Albuterol Sulfate (Proventil) (5 MG/ML) 0.5% *conc* inhalation solution 2.5 mg 2.5 mg NebulizerPRMADISON Bender Albuterol Sulfate (Proventil) (2.5 MG/3ML) 0.083% inhalation solution 2.5 mg 2.5 mg Nebulizer PRN MADISON Hodgson Social History Tobacco Use Smoking status: Former Packs/day: 1.50 Years: 25.00 Pack years: 37.50 Types: Cigarettes Quit date: 10/18/1979 Years since quittin.4 Smokeless tobacco: Never Tobacco comments: occ. cigar Vaping Use Vaping Use: Never used Substance Use Topics Alcohol use: Yes Comment: very rare Drug use: Yes Types: Marijuana Comment: Liquid, medical marijuana; also has gummies Review of patient's allergies indicates: Allergen Reactions Tizanidine PHYSICAL EXAMINATION: General Appearance: Healthy appearing patient in no acute distress BP 158/79 (BP Site: Left Arm, BP Position: Sitting, BP Cuff Size: Regular) | Pulse 78 | Temp 36.4 C (97.5 F) (Oral) | Resp 16 | Wt 70.2 kg (154 lb 12.8 oz) | SpO2 96% | BMI 21.14 kg/m | BSA 1.89 m Vitals reviewed. HEENT: No oral or [...] for high-dose chemotherapy and stem cell transplant. Currently he is receiving monthly Darzalex with Decadron and Revlimid with good tolerance and without any significant side effects toxicity. All his blood counts are in acceptable range. Discussed with the patient about diagnosis and prognosis and reviewed all the available blood test result with her. PLAN: Continue current treatment. He will return to clinic for [...] in this encounter Nursing Notes * Brittany Robledo, [facility] - 03/30/2023 9:22 AM EDT Patient identifed by name and birthdate Do you have any concerns about pain management for today's visit? Yes. Patient instructed to discuss pain concerns with provider during the visit today Living Will or Advance Directive for Health Care as noted on the problem list. [facility] is a way you can talk to your provider on line through e-mail. Would you like to sign up? I can activate it for you? ALREADY ACTIVE Filed Vitals: 03/30/23 0922 BP: 158/79 Pulse: 78 Resp: 16 Temp: 36.4 C (97.5 F) TempSrc: Oral SpO2: 96% Weight: 70.2 kg (154 lb 12.8 oz) Patient was instructed to not get [...] Care Team Description 04/19/2023 Scheduled Telephone Pharmacy Joey Heath Hem/Onc Tech [address] [place] [address] 04/27/2023 Laboratory Laboratory [place], Lab Scenery [address] [facility] [facility] [address] 04/27/2023 Office Visit Hematology Oncology Chito Garcia MD [address] [place] [address] 04/27/2023 Hem/Onc Treatment Hematology Oncology [place], Chair 9 Hem Onc Scenery [address] [facility] [place] [address] 05/05/2023 Office Visit Palliative Medicine Nan Campos MD [address] [place] [address] 05/05/2023 Office Visit Pharmacy [facility] [address] [facility] [place] [address] 06/14/2023 Office Visit Family Medicine Landen Macario DO [address] [facility] [place] [address] 07/28/2023 Office Visit Cardiology Cyril Johns PA-C [address] [place] [address] 10/01/2023 Cardiac Studies Cardiology Fredy Figueroa [facility] [address] [place] [address] Scheduled Orders Name Type Priority Associated Diagnoses Orde r Schedule CBC WITH WBC DIFFERENTIAL Lab Routine Multiple myeloma not having achieved remission (HCC) Expected: 05/31/2023, Expires: 10/05/2023 COMPREHENSIVE METABOLIC PANEL Lab Routine Multiple myeloma not having achieved remission (HCC) Expected: 05/31/2023, Expires: 10/05/2023 SERUM IMMUNOFIXATION Lab Routine Multiple myeloma not having achieved remission (HCC) Expected: 05/31/2023, Expires: 10/05/2023 IMMUNOGLOBULIN QUANTITATIVE Lab Routine Multiple myeloma not having achieved remission (HCC) Expected: 05/31/2023, Expires: 10/05/2023 SERUM FREE LIGHT CHAINS Lab Routine Multiple myeloma not having achieved remission (HCC) Expected: 05/31/2023, Expires: 10/05/2023 SERUM PROTEIN ELECTROPHORESIS REFLEX PROFILE Lab Routine Multiple myeloma not having achieved remission (HCC) Expected: 05/31/2023, Expires: 10/05/2023 Health Maintenance Due Date Last Done Comments [...] Medical Devices Implanted Type Area Automotive Parts Coordinator Device Identifier Shelf Expiration Date Model / Serial / Lot Lens Intraoc 24.0 - [id number] - [id number] Implanted:Qty: 1 on 08/16/2018 by Adan Colon MD at OR [facility] Right: Eye BAUSCH [employer] LOMB 11/17/2022 [id number] / [id number] / [id number] Lens Intraoc 24.0 - [id number] - [id number] Implanted:Qty: 1 on 08/23/2018 by Adan Colon MD at OR [facility] Left: Eye BAUSCH & LOMB 06/17/2023 [id number] / [id number] / [id number] Screw [employer] [id number] - [id number] Implanted:Qty: 1 on 12/07/2019 by Amilcar Saavedra MD at OR [facility] Left: Foot EXACTECH [id number] / / documented as of this encounter [...] and were consensually agreed upon. Care Teams Museum Tour Guide Relationship Specialty Start Date End Date Landen Macario, DO [address] [facility] [place] [address] PCP - General Family Medicine 02/09/22 documented as of this encounter"
--- OUTSIDE RECORDS SUMMARY | 2023-08-26 18:19 | External Medical Summary ---
Author Name Unknown Address Unknown Organization K09:[facility] [place] [address] Laboratory Report Ordering Provider Test Date Status ANIBAL FIERRO 03/30/2023 08:46:15 Final Observation Date Value Abnormality Reference (Units ) Status Phosphate 03/30/2023 08:46:15 2.8 2.5-4.8 (m g/dL) Final Performing Location [facility] [place] [address]
--- OUTSIDE RECORDS SUMMARY | 2023-08-26 18:20 | External Medical Summary | Summary of Care ---
Author Name Unknown Organization [facility] Address [address] [place] [address] Phone [phone] Care Team Providers Care Cleaning Machine Operator Name Role Phone AhsanLanden anva Primary Care Provider [phone] Encounter Details Date Type Department Care Team Description 03/28/2023 Orders Only Hematology/Oncology [facility] [address] [place] [address] Chito Garcia MD [address] [place] [address] Allergies Active Allergy Reactions Severity Noted Date Comments Tizanidine 06/27/2021 documented as of this encounter (statuses as of 03/28/2023) Medications Medication Sig Dispensed Refills Start Date End Date Status LANCET DEVICE MISCIndications:DM type 2, not at goal ([facility]) test bid 100 3 07/27/2007 Active OMEGA 3 1000 MG PO CAPSIndications:Chr onic ischemic heart disease,Dyslipidemi a, goal LDL below 70 2 per day 90 Cap 0 08/22/2013 Active BD Pen Needle Short U/F 31G X 8 MM (Insulin Pen Needle)Indications: Type 2 diabetes mellitus with hemoglobin A1c goal of less than 8.0% ([facility]) USE DIRECTED WITH SOLSTAR 100 Each 3 [...] or Wheezing. 18 g 3 04/03/2022 Active B10-Cizspu 1 MG Oral Tablet Chewable (Methylcobalamin) Take [...] goal of less than 8.0% ([facility]) Inject 40 Units under the skin every night at bedtime. 45 mL 1 02/15/2023 Active Dexcom G7 Sensor Use to check blood sugar 1 Each 3 03/04/2023 Active Dexcom G7 Fire Observer Device Use to check blood sugar 1 Each 1 03/04/2023 Active Lenalidomide 10 MG Oral Capsule (Revlimid)Indicatio ns:Multiple myeloma not having achieved remission ([facility]) TAKE 1 CAPSULE BY MOUTH 1 TIME A DAY FOR 21 DAYS ON THEN 7 DAYS OFF 21 Capsule 0 03/21/2023 Active Hospital, Clinic, or Other Facility Administered Medication Ordered Dose Route Frequency Start Date End Date Status Albuterol Sulfate (Proventil) (5 MG/ML) 0.5% *conc* inhalation solution 2.5 mgIndications:ILD (interstitial lung disease) ([facility]),COPD, group A, by GOLD 2017 classification ([facility]) 2.5 mg NEBULIZER PRN 04/03/2022 04/03/2023 Acti ve Albuterol Sulfate (Proventil) (2.5 MG/3ML) 0.083% inhalation solution 2.5 mgIndications:ILD (interstitial lung disease) ([facility]),COPD, group A, by GOLD 2017 classification ([facility]) 2.5 mg NEBULIZER PRN 04/03/2022 04/03/2023 Acti ve documented as of this encounter (statuses as of 03/28/2023) Active Problems Problem Noted Date Chronic systolic (congestive) heart fail ure 06/25/2022 Coronary artery disease invo lving lummi coronary artery of lummi heart without angina pectoris 06/25/2022 Presence of [...] 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,rt jainism 07/05/2002 0 05/26/2018 Rosacea 07/28/2001 05/26/2018 LOC PRIM [id number] 07/28/2001 05/26/20 18 documented as of this [...] Care Team Description 03/30/2023 Telemedicine Pharmacy Pharmacist, [facility] Clinic Sp [address] [place] [place] [address] 03/30/2023 Laboratory Laboratory [place], Lab Scenery [address] [place] [address] 03/30/2023 Office Visit Hematology Oncology Chito Garcia MD [address] [facility] [place] [address] 03/30/2023 Hem/Onc Treatment Hematology Oncology [place], Chair 2 Hem Onc Scenery [address] [place] [address] 04/19/2023 Scheduled Telephone Pharmacy Ivana [facility] Hem/Onc Tech [address] [place] [address] 04/27/2023 Laboratory Laboratory [place], Lab Scenery [address] [place] [address] 04/27/2023 Office Visit Hematology Oncology Chito Garcia MD [address] [facility] [place] [address] 04/27/2023 Hem/Onc Treatment Hematology Oncology [place], Chair 9 Hem Onc Scenery [address] [place] [address] 05/05/2023 Office Visit Palliative Medicine Nan Campos MD [address] [place] [address] [place], [place] [id number] 06/14/2023 Office Visit Family Medicine Landen Macario, [address] [place] [address] 07/28/2023 Office Visit Cardiology Cyril Johns PA-C [address] [place] [address] 10/01/2023 Cardiac Studies Cardiology Fredy Figueroa [facility] [address] [place] [address] Health Maintenance Due Date Last Done Comments [...] this encounter Medical Devices Implanted Type Area Rubber Heel And Sole Press Tender Device Identifier Shelf Expiration Date Model / Serial / Lot Lens Intraoc 24.0 - [id number] - [id number] Implanted:Qty: 1 on 08/16/2018 by Adan Colon MD at OR [facility] Right: Eye BAUSCH [employer] LOMB 11/17/2022 [id number] / [id number] / [id number] Lens Intraoc 24.0 - [id number] - [id number] Implanted:Qty: 1 on 08/23/2018 by Adan Colon MD at OR [facility] Left: Eye BAUSCH & LOMB 06/17/2023 [id number] / [id number] / [id number] Screw [employer] [id number] - [id number] Implanted:Qty: 1 on 12/07/2019 by Amilcar Saavedra MD at OR [facility] Left: Foot EXACTECH [id number] / / documented as of this encounter [...] and were consensually agreed upon. Care Teams Cleaning Machine Operator Relationship Specialty Start Date End Date Landen Macario, DO [address] [facility] [address] PCP - General Family Medicine 02/09/22 documented as of this encounter
--- OUTSIDE RECORDS SUMMARY | 2023-08-26 18:20 | External Medical Summary | Summary of Care ---
Author Name Unknown Organization [facility] Address [address] [place] [facility] [place] [address] Phone [phone] Care Team Providers Care Piece Goods Clerk Name Role Phone Landen Macario DO Primary Care Provider [phone] Reason for Visit * Reason Onset Date Comments Medication Question 03/03/2023 Encounter Details Date Type Department Care Team Description 03/03/2023 Telephone Family Practice [facility] [address] [facility] [place] [address] Landen Macario DO [address] [place] [address] Medication Question Allergies Active Allergy Reactions Severity Noted Date Comments Tizanidine 06/27/2021 documented as of this encounter (statuses as of 03/05/2023) Medications Medication Sig Dispensed Refills Start Date [...] or Wheezing. 18 g 3 04/03/2022 Active O87-Urafyz 1 MG Oral Tablet Chewable (Methylcobalamin) Take [...] before bedtime. 180 Tablet 3 02/04/2023 Active Lenalidomide 10 MG Oral Capsule (Revlimid)Indicatio ns:Multiple myeloma not having achieved remission (HCC) TAKE 1 CAPSULE BY MOUTH 1 TIME A DAY FOR 21 DAYS ON THEN 7 DAYS OFF 21 Capsule 0 02/15/2023 Active Victoza 18 MG/3ML Subcutaneous Solution Pen-injector (Liraglutide)Indica tions:Type 2 diabetes mellitus with peripheral vascular disease (HCC) Inject 1.8 mg under the skin in the morning. 27 mL 3 02/15/2023 Active Insulin Glargine Solostar 100 UNIT/ML Subcutaneous Solution Pen-injector (Basaglar KwikPen)Indications :Type 2 diabetes mellitus with hemoglobin A1c goal of less than 8.0% ([facility]) Inject 40 Units under the skin every night at bedtime. 45 mL 1 02/15/2023 Active Dexcom G7 Sensor Use to check blood sugar 1 Each 3 03/04/2023 Active Dexcom G7 Bead Wire Insulator Device Use to check blood sugar 1 Each 1 03/04/2023 Active Hospital, Clinic, or Other Facility Administered Medication Ordered Dose Route Frequency Start Date End Date Status Albuterol Sulfate (Proventil) (5 MG/ML) 0.5% *conc* inhalation solution 2.5 mgIndications:ILD (interstitial lung disease) ([facility]),COPD, group A, by GOLD 2017 classification ([facility]) 2.5 mg NEBULIZER PRN 04/03/2022 04/03/2023 Acti ve Albuterol Sulfate (Proventil) (2.5 MG/3ML) 0.083% inhalation solution 2.5 mgIndications:ILD (interstitial lung disease) ([facility]),COPD, group A, by GOLD 2017 classification ([facility]) 2.5 mg NEBULIZER PRN 04/03/2022 04/03/2023 Acti ve documented as of this encounter (statuses as of 03/05/2023) Active Problems Problem Noted Date Chronic systolic (congestive) heart fail ure 06/25/2022 Coronary artery disease invo lving [place] coronary artery of [place] heart without angina pectoris 06/25/2022 Presence of [...] as of this encounter (statuses as of 03/05/2023) Resolved Problems Problem Noted Date Resolved Date [...] 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,rt lutheran 6/00 07/05/2002 0 05/26/2018 Rosacea 07/28/2001 05/26/2018 LOC PRIM [id number] 07/28/2001 05/26/20 18 documented as of this encounter (statuses as of 03/05/2023) Immunizations Name Administration Dates Next Due COVID-19 mRNA, LNP-s, No Pre serve, 2-Dose Series (Moderna) 08/27/2021,01/04/2021,12/02/2020 Covid-19 Mrna, Lnp-s, No Pre serve, Booster (Moderna) 05/07/2022 Covid-19, Mrna, Lnp-s, Pf, B ivalent Booster, 30 Mcg, IM, 12 yrs and above [...] Dexcom G7. Pt uses [id number] [address] [place] [address] Please advise. Thank you, Lucy Calderon Customer Advocate [facility] 03/03/2023, 5:37 PM documented in this encounter Plan of Treatment Upcoming Encounters Date Type Specialty Care Team Description 03/18/2023 Scheduled Telephone Pharmacy Ivana [facility] Hem/Onc Tech [address] [place] [facility] [place] [address] 03/24/2023 Office Visit Cardiology Jeremías Lane, DO [address] [place] [address] 03/30/2023 Telemedicine Pharmacy Pharmacist, [facility] Sp [address] [place] [address] 03/30/2023 Laboratory Laboratory Allen Ramirez [address] [place] [address] 03/30/2023 Office Visit Hematology Oncology Chito Garcia MD 200 [facility] [place] [address] 03/30/2023 Hem/Onc Treatment Hematology Oncology [place], Chair 2 Hem Onc Scenery [address] [facility] [place] [address] 04/27/2023 Laboratory Laboratory [place], Lab Scenery [address] [place] [address] 04/27/2023 Office Visit Hematology Oncology Chito Garcia MD 200 [place] [address] 04/27/2023 Hem/Onc Treatment Hematology Oncology [place], Chair 9 Hem Onc Scenery [address] [facility] [place] [address] 05/05/2023 Office Visit Palliative Medicine Nan Campos MD [address] [place] [address] 06/14/2023 Office Visit Family Medicine Landen Macario DO 200 [place] [address] 10/01/2023 Cardiac Studies Cardiology Fredy Figueroa [address] [address] Health Maintenance Due Date Last Done Comments [...] for Pts 12 and Over 05/20/2023 05/20/2022 HgA1C 09/02/2023 03/02/2023, 03, 10/08/2022, Additional history exists DIABETES-EYE EXAM 09/09/2023 09/09/2022, , 10/25/2019, Additional history exists DIG LEVEL FOR MEDICATION MONITORING YEARLY 01/05/2024 01/04/2023, 10/08/2022, 05/15/2022 GFR - Renal Function 03/02/2024 03/02/2023, 02/02/2023, 01/04/2023, Additional history exists Yearly B-12 03/02/2024 [...] this encounter Medical Devices Implanted Type Area Screw Machine Operator Swiss Type Device Identifier Shelf Expiration Date Model / Serial / Lot Lens Intraoc 24.0 - [id number] - [id number] Implanted:Qty: 1 on 08/16/2018 by Adan Colon MD at OR [facility] Right: Eye [employer] 11/17/2022 [id number] / [id number] / [id number] Lens Intraoc 24.0 - [id number] - [id number] Implanted:Qty: 1 on 08/23/2018 by Adan Colon MD at OR [facility] Left: Eye [employer] 06/17/2023 [id number] / [id number] / [id number] Screw [employer] [id number] - [id number] Implanted:Qty: 1 on 12/07/2019 by Amilcar Saavedra MD at OR [facility] Left: Foot EX[employer]ECH [id number] / / documented as of this encounter [...] and were consensually agreed upon. Care Teams Piece Goods Clerk Relationship Specialty Start Date End Date Landen Macario, DO [address] [place] [address] PCP - General Family Medicine 02/09/22 documented as of this encounter
--- OUTSIDE RECORDS SUMMARY | 2023-08-26 18:20 | External Medical Summary | Summary of Care ---
Author Name Unknown Organization [facility] Address [address] [facility] [address] Phone [phone] Care Team Providers Care Motorcycle Service Technician Name Role Phone RenaldoLanden Con MCCABE Primary Care Provider [phone] Reason for Visit * Reason Comments Outpatient Testing Encounter Details Date Type Department Care Team Description 03/02/2023 Laboratory Laboratory Sc[place] [place] [address] [place] [address] [facility] Lab Scenery [address] [place] [address] Multiple myeloma not having achieved remission (HCC); Type 2 diabetes mellitus with hemoglobin A1c goal of less than 8.0% ([facility]) Allergies Active Allergy Reactions Severity Noted Date Comments Tizanidine 06/27/2021 documented as of this encounter (statuses as of 03/02/2023) Medications Medication Sig Dispensed Refills Start Date End Date Status TYLENOL ARTHRITIS PAIN 650 MG PO TBCR 2 po prn 0 01/19/2007 Activ e LANCET DEVICE MISCIndications:DM type 2, not at goal (HCC) test bid 100 3 07/27/2007 Active OMEGA 3 1000 MG PO CAPSIndications:Chr onic ischemic heart disease,Dyslipidemi a, goal LDL below 70 2 per day 90 Cap 0 08/22/2013 Active Docusate Sodium 100 MG Oral Capsule (Colace) Take 1 Capsule by mouth in the morning and 1 Capsule before bedtime. 0 Active Polyethylene Glycol 3350 17 GM/SCOOP Oral Powder (Miralax) Take 17 g by mouth daily as needed. 0 Active BD Pen Needle Short U/F 31G [...] or Wheezing. 18 g 3 04/03/2022 Active G20-Ynbdds 1 MG Oral Tablet Chewable (Methylcobalamin) Take by mouth daily . 0 Active Ferrous Sulfate 325 (65 Fe) MG Oral Tablet (Feosol) Take 1 Tablet by mouth daily with breakfast. 0 Active Digoxin 125 MCG Oral Tablet (Lanoxin) Take 1 Tablet by mouth every other day. 90 Tablet 3 05/25/2022 Active Nitroglycerin 0.4 MG Sublingual Tablet Sublingual (Nitrostat) Place 1 Tablet under the tongue every 5 minutes as needed for Pain, Chest. up to 3 doses in 15 minutes 25 Tablet 11 10/05/2022 Active Additional Information Patient not taking.Reported on 02/04/2023 Potassium Chloride Raven ER 20 MEQ Oral [...] EVERY DAY 90 Tablet 1 02/01/2023 Active Acyclovir 400 MG Oral Tablet (Zovirax)Indication s:Multiple myeloma not having achieved remission (HCC) TAKE 1 TABLET BY MOUTH EVERY DAY IN THE MORNING AND BEFORE BEDTIME 180 Tablet 3 02/01/2023 Active Additional Information Patient not taking.Reported on 02/04/2023 Metoprolol Succinate ER 50 MG Oral Tablet [...] Solostar 100 UNIT/ML Subcutaneous Solution Pen-injector (Basaglar GioikMichel)Indications :Type 2 diabetes mellitus with hemoglobin A1c goal of less than 8.0% ([facility]) Inject 40 Units under the skin every night at bedtime. 45 mL 1 02/15/2023 Active Hospital, Clinic, or Other Facility Administered Medication Ordered Dose Route Frequency Start Date End Date Status Albuterol Sulfate (Proventil) (5 MG/ML) 0.5% *conc* inhalation solution 2.5 mgIndications:ILD (interstitial lung disease) ([facility]),COPD, group A, by GOLD 2017 classification ([facility]) 2.5 mg NEBULIZER PRN 04/03/2022 04/03/2023 Acti ve Albuterol Sulfate (Proventil) (2.5 MG/3ML) 0.083% inhalation solution 2.5 mgIndications:ILD (interstitial lung disease) (HCC),COPD, group A, by GOLD 2017 classification (HCC) 2.5 mg NEBULIZER PRN 04/03/2022 04/03/2023 Acti ve documented as of this encounter (statuses as of 03/02/2023) Active Problems Problem Noted Date Chronic systolic (congestive) heart fail ure 06/25/2022 Coronary artery disease invo lving [place] coronary artery of [place] heart without angina pectoris 06/25/2022 Presence of cardiac pacemaker 03/24/2022 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 Metastatic cancer to bone 10/22/2021 Acute systolic congestive heart failure 10/08/2021 Multiple myeloma not having achieved rem ission 08/28/2021 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 09/08/2019 Gastroesophageal reflux disease without esophagitis 03/15/2019 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 11/25 Paroxysmal atrial [...] as of this encounter (statuses as of 03/02/2023) Resolved Problems Problem Noted Date Resolved Date [...] 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,rt jewish 07/05/2002 0 05/26/2018 Rosacea 07/28/2001 05/26/2018 LOC PRIM [id number] 07/28/2001 05/26/20 18 documented as of this encounter (statuses as of 03/02/2023) Immunizations Name Administration Dates Next Due COVID-19 mRNA, LNP-s, No Pre serve, 2-Dose Series (Moderna) 08/27/2021,01/04/2021,12/02/2020 Covid-19 Mrna, Lnp-s, No Pre serve, Booster (Moderna) 05/07/2022 Covid-19, Mrna, Lnp-s, Pf, B ivalent Booster, 30 Mcg, IM, 12 yrs and above ([facility] [place]) 09/04/2022 H1N1 2009 Influenza, IM 09/22/2009 PPD [...] Encounters Date Type Specialty Care Team Description 03/02/2023 Office Visit Hematology Oncology Grace Veronica CRNP [address] [facility] [place] [address] PENDING VISIT DRAFT 03/02/2023 Hem/Onc Treatment Hematology Oncology [place], Chair 7 Hem Onc [facility] [address] [facility] [place] [address] Arrived 03/18/2023 Scheduled Telephone Pharmacy [facility] Hem[facility]Onc [facility] [address] [facility] [place] [address] 03/24/2023 Office Visit Cardiology Jeremías Lane, DO [address] [place] [address] 03/30/2023 [facility] [address] [facility] [place] [address] 03/30/2023 Laboratory Laboratory Allen Ramirez [place] 200 [place] [address] 03/30/2023 Office Visit Hematology Oncology Chito Garcia MD 200 [place] [address] 03/30/2023 Hem/Onc Treatment Hematology Oncology [place], Chair 2 Hem Onc [facility] 200 [place] [address] 05/05/2023 Office Visit Palliative Medicine Nan Campos MD [address] [place], [place] [address] [place] [address] 06/14/2023 Office Visit Family Medicine Landen Macario DO [address] [place] [address] 10/01/2023 Cardiac Studies Cardiology [facility], Pacer [address] [place] [address] Pending Results Name Type Priority Associated Diagnoses Date /Time PHOSPHORUS Lab STAT Multiple myeloma not having achieved remission (HCC) 03/02/2023 8:41 AM EDT COMPREHENSIVE METABOLIC PANEL Lab STAT Multiple myeloma not having achieved remission ([facility]) 03/02/2023 8:41 AM EDT SERUM PROTEIN ELECTROPHORESIS REFLEX PROFILE Lab STAT Multiple myeloma not having achieved remission ([facility]) 03/02/2023 8:41 AM EDT SERUM FREE LIGHT CHAINS Lab STAT Multiple myeloma not having achieved remission ([facility]) 03/02/2023 8:41 AM EDT IMMUNOGLOBULIN QUANTITATIVE Lab STAT Multiple myeloma not having achieved remission ([facility]) 03/02/2023 8:41 AM EDT HEMOGLOBIN A1C Lab Routine Type 2 diabetes mellitus with hemoglobin A1c goal of less than 8.0% (HCC) 03/02/2023 8:41 AM EDT Health Maintenance Due Date Last Done Comments Hepatitis B (3 of 3 - 19+ 3-dose series) 04/17/1994 11/18/1993, 10/18/1993 Zoster Vaccines (2 of 2) 02/21/2013 12/27/2012, 12/16 Pneumococcal Vaccine: 65+ Years (3 - PPSV23 if available, else PCV20) 03/01/2018 03/01/2017, 09/06/2007 Albumin/Creatinine Ratio 12/14/2019 019, 01/03/2018, 06/26/2016, Additional history exists DIABETES-FOOT EXAM 09/16/2021 09/16/2020, 0 12/16/2015, 03/06/2015, Additional history exists Yearly B-12 04/21/2023 04/21/2022, 06/19, 09/16/2020, Additional history exists Depression Screening, Annual for Pts 12 and Over 05/20/2023 05/20/2022 HgA1C 07/07/2023 01/04/2023, 09/18, 12/15/2021, Additional history exists DIABETES-EYE EXAM 09/09/2023 09/09/2022, , 10/25/2019, Additional history exists DIG LEVEL FOR MEDICATION MONITORING YEARLY 01/05/2024 01/04/2023, 10/08/2022, 05/15/2022 GFR - Renal Function 02/03/2024 02/02/2023, 01/04/2023, 12/17/2022, Additional history exists DTaP,Tdap,and Td Vaccines (2 [...] this encounter Medical Devices Implanted Type Area Management Professor Device Identifier Shelf Expiration Date Model / Serial / Lot Lens Intraoc 24.0 - [id number] - [id number] Implanted:Qty: 1 on 08/16/2018 by Adan Colon MD at OR [facility] Right: Eye [employer] 11/17/2022 [id number] / [id number] / [id number] Lens Intraoc 24.0 - [id number] - [id number] Implanted:Qty: 1 on 08/23/2018 by Adan Colon MD at OR [facility] Left: Eye [employer] 06/17/2023 [id number] / [id number] / [id number] Screw [employer] [id number] - [id number] Implanted:Qty: 1 on 12/07/2019 by Amilcar Saavedra MD at OR [facility] Left: Foot EXACTECH [id number] / / documented as of this encounter Procedures Procedure Name Priority Date/Time Associated Diagnosis Comments DIFFERENTIAL, AUTOMATED STAT 03/02/2023 8:41 AM EDT Multiple myeloma not having achieved remission (HCC) CBC WITH WBC DIFFERENTIAL STAT 03/02/2023 8:41 AM EDT Multiple myeloma not having achieved remission (HCC) CBC STAT 03/02/2023 8:41 AM EDT Multiple myeloma not having achieved remission (HCC) documented in this encounter Results * (ABNORMAL) DIFFERENTIAL, AUTOMATED (03/02/2023 8:41 AM EDT) WBC 3.32(L) 4.00 - 10.80 K/uL 03/02/2023 8:51 AM EDT [facility] 56-02 Neutrophils % 52.4 40.0 - 75.0 % 03/02/2023 8:51 AM EDT [facility]02 Lymphocytes % 24.4 18.0 - 42.0 % 03/02/2023 8:51 AM EDT [facility] 56-02 Monocytes % 17.8(H) 1.0 - 11.0 % 03/02/2023 8:51 AM EDT [facility] 56 Eosinophils % 4.8 0.0 - 6.0 % 03/02/2023 8:51 AM EDT [facility] 56 Basophils % 0.6 0.0 - 2.0 % 03/02/2023 8:51 AM EDT [facility] 56 Absolute Neutrophils 1.74(L) 1.80 - 7.70 K/uL 03/02/2023 8:51 AM EDT [facility] Absolute Lymphocytes 0.81(L) 1.00 - 4.80 K/ul 03/02/2023 8:51 AM EDT [facility] 56 Absolute Monocytes 0.59 0.00 - 1.10 K/uL 03/02/2023 8:51 AM EDT [facility] Absolute Eosinophils 0.16 0.00 - 0.70 K/uL 03/02/2023 8:51 AM EDT [facility] Absolute Basophils 0.02 0.00 - 0.20 K/uL 03/02/2023 8:51 AM EDT [facility] Blood Venous blood specimen / Unknown Venipuncture / Unknown 03/02/2023 8:41 AM EDT 03/02/2023 8:41 AM EDT Chito Garcia MD LAB BLOOD ORDERA BLES [facility] [address] [place] [address] * (ABNORMAL) CBC (03/02/2023 8:41 AM EDT) [facility] WBC 3.32(L) 4.00 - 10.80 K/uL 03/02/2023 8:51 AM EDT [facility] RBC 3.23 4.50 - 5.25 M/uL 03/02/2023 8:51 AM EDT [facility] HGB 9.9(L) 14.0 - 16.8 g/dL 03/02/2023 8:51 AM EDT [facility] HCT 32.0(L) 40.0 - 48.4 % 03/02/2023 8:51 AM EDT [facility] 56 MCV 99.1 82.0 - 99.5 fL 03/02/2023 8:51 AM EDT [facility] 56 MCH 30.7 27.0 - 34.0 pg 03/02/2023 8:51 AM EDT [facility] 56 MCHC 30.9 32.0 - 36.0 g/dL 03/02/2023 8:51 AM EDT [facility] 56 RDW 16.3 11.5 - 15.5 % 03/02/2023 8:51 AM EDT [facility] 56 PLT 155 140 - 400 K/uL 03/02/2023 8:51 AM EDT [address] MPV 11.6 6.6 - 11.1 fL 03/02/2023 8:51 AM EDT [facility] 56 Blood Venous blood specimen / Unknown Venipuncture / Unknown 03/02/2023 8:41 AM EDT 03/02/2023 8:41 AM EDT Chito Garcia MD LAB BLOOD ORDERA BLES [address] [place] [address] documented in this encounter Visit Diagnoses Diagnosis Multiple myeloma not having achieved remission (HCC) Multiple myeloma, without mention of having achieved remission Type 2 diabetes mellitus with hemoglobin A1c [...] and were consensually agreed upon. Care Teams Motorcycle Service Technician Relationship Specialty Start Date End Date Landen Macario, DO 200 [place] [address] PCP - General Family Medicine 02/09/22 documented as of this encounter
--- OUTSIDE RECORDS SUMMARY | 2023-08-26 18:20 | External Medical Summary | Summary of Care ---
Author Name Unknown Organization [facility] Address [address] [place] [address] Phone [phone] Care Team Providers Care Tin Whiz Machine Operator Name Role Phone Landen Macario Primary Care Provider [phone] Reason for Visit * Reason Comments eRx-Medication Refill Encounter Details Date Type Department Care Team Description 03/17/2023 Refill Hematology/Oncology Treatment, [place] [address] [place] [address] Chito Garcia MD 200 [place] [address] Multiple myeloma not having achieved remission (HCC) Allergies Active Allergy Reactions Severity Noted Date Comments Tizanidine 06/27/2021 documented as of this encounter (statuses as of 03/21/2023) Medications Medication Sig Dispensed Refills Start Date [...] less than 8.0% ([facility]) USE DIRECTED WITH SOLSTAR 100 Each [...] 2 diabetes mellitus with peripheral vascular disease ([facility]) Use to check blood sugars. Change every [...] or Wheezing. 18 g 3 04/03/2022 Active T24-Kaifmf 1 MG Oral Tablet Chewable (Methylcobalamin) Take [...] 1 Each 3 03/04/2023 Active Dexcom G7 Overhead Irrigator Device Use to check blood sugar 1 Each 1 03/04/2023 Active Lenalidomide 10 MG Oral Capsule (Revlimid)Indicat ions:Multiple myeloma not having achieved remission (HCC) TAKE 1 CAPSULE BY MOUTH 1 TIME A DAY FOR 21 DAYS ON THEN 7 DAYS OFF 21 Capsule 0 03/21/2023 Active Lenalidomide 10 MG Oral Capsule (Revlimid)Indicat ions:Multiple myeloma not having achieved remission (HCC) TAKE 1 CAPSULE BY MOUTH 1 TIME A DAY FOR 21 DAYS ON THEN 7 DAYS OFF 21 Capsule 0 02/15/2023 03/19/20 23 Discontinued Hospital, Clinic, or Other Facility Administered Medication Ordered Dose Route Frequency Start Date End Date Status Albuterol Sulfate (Proventil) (5 MG/ML) 0.5% *conc* inhalation solution 2.5 mgIndications:ILD (interstitial lung disease) ([facility]),COPD, group A, by GOLD 2017 classification ([facility]) 2.5 mg NEBULIZER PRN 04/03/2022 04/03/2023 Acti ve Albuterol Sulfate (Proventil) (2.5 MG/3ML) 0.083% inhalation solution 2.5 mgIndications:ILD (interstitial lung disease) ([facility]),COPD, group A, by GOLD 2017 classification ([facility]) 2.5 mg NEBULIZER PRN 04/03/2022 04/03/2023 Acti ve documented as of this encounter (statuses as of 03/21/2023) Active Problems Problem Noted Date Chronic systolic (congestive) heart fail ure 06/25/2022 Coronary artery disease invo lving [place] coronary artery of [place] heart without angina pectoris 06/25/2022 Presence of [...] as of this encounter (statuses as of 03/21/2023) Resolved Problems Problem Noted Date Resolved Date [...] 0 05/26/2018 Rosacea 07/28/2001 05/26/2018 LOC PRIM [id number] 07/28/2001 05/26/20 18 documented as of this encounter (statuses as of 03/21/2023) Immunizations Name Administration Dates Next Due COVID-19 mRNA, LNP-s, No Pre serve, 2-Dose Series (Moderna) 08/27/2021,01/04/2021,12/02/2020 Covid-19 Mrna, Lnp-s, No Pre serve, Booster (Moderna) 05/07/2022 Covid-19, Mrna, Lnp-s, Pf, B ivalent, 30 Mcg, IM, 12 yrs and above (Mocapay) 09/04/2022 H1N1 2009 Influenza, IM 09/22/2009 PPD [...] Telephone Encounter - Glo Terry RN - 03/19/2023 4:25 PM EDT Per office note 03/02/23: "Continue Revlimid 10 mg daily for a total of 21 out of 28 days." Prescriber survey complete, auth #[id number] * Telephone Encounter - Interface, E-Rx Ss Inbound - 03/18/2023 1:49 PM EDT Pending Prescriptions: Disp Refills Lenalidomide 10 MG Oral Capsule (Revlimid)* 0 Sig: TAKE 1 CAPSULE BY MOUTH 1 TIME A DAY FOR 21 DAYS ON THEN 7 DAYS OFF documented in this encounter Plan of Treatment Upcoming Encounters Date Type Specialty Care Team Description 03/24/2023 Office Visit [address] Jeremías Lane DO [address] [place] [address] 03/30/2023 Telemedicine Pharmacy Pharmacist1, [facility] [address] [place] [address] 03/30/2023 Laboratory Laboratory [place], Lab Scenery [address] [place] [address] 03/30/2023 Office Visit Hematology Oncology Chito Garcia MD 200 [place] [address] 03/30/2023 Hem/Onc Treatment Hematology Oncology [place], Chair 2 Hem Onc Scenery [address] [facility] [address] [place] [address] 04/19/2023 [facility] [address] [place] [address] 04/27/2023 Laboratory Laboratory Allen Ramirez [facility] 200 [facility] [place] [address] 04/27/2023 Office Visit Hematology Oncology Chito Garcia MD 200 [place] [address] 04/27/2023 Hem/Onc Treatment Hematology Oncology [place], Chair 9 Hem Onc Scenery 200 [facility] [place] [address] 05/05/2023 Office Visit Palliative Medicine Nan Campos MD [address] [place] [address] 06/14/2023 Office Visit Family Medicine Landen Macario DO 200 [facility] [place] [address] 10/01/2023 Cardiac Studies Cardiology Fredy Figueroa [facility] 132 [facility] [place] [address] Health Maintenance Due Date Last Done Comments [...] Additional history exists Yearly B-12 03/02/2024 03/02/2023, 07/02/2022, 07/08/2021, Additional history exists DTaP,Tdap,and Td Vaccines [...] this encounter Medical Devices Implanted Type Area Him Specialist Device Identifier Shelf Expiration Date Model / Serial / Lot Lens Intraoc 24.0 - [id number] - [id number] Implanted:Qty: 1 on 08/16/2018 by Adan Colon MD at OR [facility] Right: Eye [employer]OM[employer] 11/17/2022 [id number] / [id number] / [id number] Lens Intraoc 24.0 - [id number] - [id number] Implanted:Qty: 1 on 08/23/2018 by Adan Colon MD at OR [facility] Left: Eye BAUSCH & LOMB 06/17/2023 [id number] / [id number] / [id number] Screw [employer] 3.2zzb01hk - [id number] Implanted:Qty: 1 on 12/07/2019 by Amilcar Saavedra MD at OR [facility] Left: Foot EXACTECH [id number] / / documented as of this encounter [...] and were consensually agreed upon. Care Teams Tin Whiz Machine Operator Relationship Specialty Start Date End Date Landen Macario, DO [address] [place] [address] PCP - General Family Medicine 02/09/22 documented as of this encounter
--- OUTSIDE RECORDS SUMMARY | 2023-08-26 18:20 | External Medical Summary | Summary of Care ---
Author Name Unknown Organization [facility] Address [address] [place] [address] Phone [phone] Care Team Providers Care Senior Electrical Design Engineer Name Role Phone Landen Macario Primary Care Provider [phone] Reason for Visit * Reason Onset Date Comments Encounter Created in Error 03/18/2023 Encounter Details Date Type Department Care Team Description 03/18/2023 Scheduled Telephone Pharmacy Hematology Oncology [facility] [address] [place], [place] [id number] [facility] Hem/Onc [facility] [address] [place] [address] Multiple myeloma not having achieved remission (HCC)* Allergies Active Allergy Reactions Severity Noted Date Comments Tizanidine 06/27/2021 documented as of this encounter (statuses as of 03/23/2023) Medications Medication Sig Dispensed Refills Start Date [...] or Wheezing. 18 g 3 04/03/2022 Active K33-[place] 1 MG Oral Tablet Chewable (Methylcobalamin) Take [...] 1 Each 3 03/04/2023 Active Dexcom G7 Printed Circuit Board Drafter Device Use to check blood sugar 1 [...] 2.5 mgIndications:ILD (interstitial lung disease) ([facility]),COPD, group A, by GOLD 2017 classification ([facility]) 2.5 mg NEBULIZER PRN 04/03/2022 04/03/2023 Acti ve Albuterol Sulfate (Proventil) (2.5 MG/3ML) 0.083% inhalation solution 2.5 mgIndications:ILD (interstitial lung disease) ([facility]),COPD, group A, by GOLD 2017 classification ([facility]) 2.5 mg NEBULIZER PRN 04/03/2022 04/03/2023 Acti ve documented as of this encounter (statuses as of 03/23/2023) Active Problems Problem Noted Date Chronic systolic (congestive) heart fail ure 06/25/2022 Coronary artery disease invo lving [place] coronary artery of [place] heart without angina pectoris 06/25/2022 Presence of cardiac pacemaker 03/24/2022 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 Metastatic cancer to bone 10/22/2021 Acute systolic congestive heart failure 10/08/2021 Multiple myeloma not having achieved rem ission 08/28/2021 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 09/08/2019 Gastroesophageal reflux disease without esophagitis 03/15/2019 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 11/25 Paroxysmal atrial [...] as of this encounter (statuses as of 03/23/2023) Resolved Problems Problem Noted Date Resolved Date [...] 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,rt gnosticism 6/00 07/05/2002 0 05/26/2018 Rosacea 07/28/2001 05/26/2018 LOC PRIM [id number] 07/28/2001 05/26/20 18 documented as of this encounter (statuses as of 03/23/2023) Immunizations Name Administration Dates Next Due COVID-19 [...] Description 03/24/[address] Jeremías Lane O, DO [address] [place] [address] 03/30/[facility] [address] [place] [address] 03/30/2023 Laboratory Allen Jaimesry 200 [facility] [place] [address] 03/30/2023 Office Visit Hematology Oncology Chito Garcia MD 200 [facility] [place] [address] 03/30/2023 Hem/Onc Treatment Hematology Oncology [place], Chair 2 Hem Onc Scenery [address] [place] [address] 04/19/2023 Scheduled Telephone Pharmacy [facility] Hem/Onc Tech [address] [place] [address] 04/27/2023 Laboratory Laboratory [place] Lab Scenery 200 [facility] [address] [facility] [address] 04/27/2023 Office Visit Hematology Oncology Chito Garcia MD 200 [facility] [place] [address] 04/27/2023 Hem/Onc Treatment Hematology Oncology [place], Chair 9 Hem Onc Scenery [address] [place] [address] 05/05/2023 Office Visit Palliative Medicine Nan Campos MD [address] [place] [address] 06/14/2023 Office Visit Family Medicine Landen Macario, DO [address] [place] [address] 10/01/[address] [facility] 132 [facility] [place] [address] Health Maintenance Due Date Last Done Comments [...] and Over 05/20/2023 05/20/2022 HbA1c 09/02/2023 03/02/2023, 03, 10/08/2022, Additional history [...] this encounter Medical Devices Implanted Type Area Torch Burner Device Identifier Shelf Expiration Date Model / Serial / Lot Lens Intraoc 24.0 - [id number] - [id number] Implanted:Qty: 1 on 08/16/2018 by Adan Colon MD at OR [facility] Right: Eye [employer] LOMB 11/17/2022 [id number] / [id number] / [id number] Lens Intraoc 24.0 - [id number] - [id number] Implanted:Qty: 1 on 08/23/2018 by Adan Colon MD at OR [facility] Left: Eye BAUSCH & LOMB 06/17/2023 [id number] / [id number] / [id number] Screw [employer] 3.6prn81jt - [id number] Implanted:Qty: 1 on 12/07/2019 by Amilcar Saavedra MD at OR [facility] Left: Foot EXACTECH [id number] / / documented as of this encounter [...] and were consensually agreed upon. Care Teams Senior Electrical Design Engineer Relationship Specialty Start Date End Date Landen Macario, DO 200 [facility] [address] PCP - General Family Medicine 02/09/22 documented as of this encounter
--- OUTSIDE RECORDS SUMMARY | 2023-08-26 18:20 | External Medical Summary ---
Author Name Unknown Address Unknown Organization [id number]:[facility] [place] [facility] [address] [place] [address] Laboratory Report Ordering Provider Test Date Status ANIBAL FIERRO 03/02/2023 08:41:23 Final Observation Date Value Abnormality Reference (Units) Status Immunofixation for Serum or Plasma 03/02/2023 08:41:23 A monoclonal IgG kappa gammopathy is present. The monoclonal IgG kappa could be consistent with therapeutic monoclonal antibody. Clinical correlation required. Final Performing Location [facility] [place] [address] [place] [address]
--- OUTSIDE RECORDS SUMMARY | 2023-08-26 18:20 | External Medical Summary | Summary of Care ---
Author Name Unknown Organization [facility] Address [address] [place] [address] Phone [phone] Care Team Providers Care Mountain Bike Guide Name Role Phone AhsanLanden nava Primary Care Provider [phone] Encounter Details Date Type Department Care Team Description 03/28/2023 Orders Only Hematology/Oncology [facility] 200 [place] [address] Chito Garcia MD 200 [place] [address] Allergies Active Allergy Reactions Severity Noted Date Comments Tizanidine 06/27/2021 documented as of this encounter (statuses as of 03/28/2023) Medications Medication Sig Dispensed Refills Start Date End Date Status LANCET DEVICE MISCIndications:DM type 2, not at goal ([facility]) test bid 100 3 07/27/2007 Active OMEGA 3 1000 MG PO CAPSIndications:Chr onic ischemic heart disease,Dyslipidemi a, goal LDL below 70 2 per day 90 Cap 0 08/22/2013 Active BD Pen Needle Short U/F 31G X 8 MM (Insulin Pen Needle)Indications: Type 2 diabetes mellitus with hemoglobin A1c goal of less than 8.0% ([facility]) USE DIRECTED WITH SOLSTAR 100 Each [...] or Wheezing. 18 g 3 04/03/2022 Active Q23-Xkqyqy 1 MG Oral Tablet Chewable (Methylcobalamin) Take [...] 1 Each 3 03/04/2023 Active Dexcom G7 Sound Effects Person Device Use to check blood sugar 1 Each 1 03/04/2023 Active Lenalidomide 10 MG Oral Capsule (Revlimid)Indicatio ns:Multiple myeloma not having achieved remission ([facility]) TAKE 1 CAPSULE BY MOUTH 1 [...] ure 06/25/2022 Coronary artery disease invo lving [place] coronary artery of [place] heart without angina pectoris 06/25/2022 Presence of [...] 0 05/26/2018 Rosacea 07/28/2001 05/26/2018 LOC PRIM [id number] 07/28/2001 05/26/20 18 documented as of this [...] Care Team Description 03/30/2023 Telemedicine Pharmacy Pharmacist, [facility] [address] [place] [address] 03/30/2023 Laboratory Laboratory [place], Lab Scenery [address] [place] [place] [address] 03/30/2023 Office Visit Hematology Oncology Chito Garcia MD 200 [facility] [place] [address] 03/30/2023 Hem/Onc Treatment Hematology Oncology [place], Chair 2 Hem Onc Scenery [address] [place] [address] 04/19/2023 Scheduled Telephone Pharmacy [place] [facility] Hem/Onc Tech [address] [place] [address] 04/27/2023 Laboratory Laboratory [place], Lab Scenery [address] [place] [address] 04/27/2023 Office Visit Hematology Oncology Chito Garcia MD 200 [facility] [place] [address] 04/27/2023 Hem/Onc Treatment Hematology Oncology [place], Chair 9 Hem Onc Scenery [address] [place] [address] 05/05/2023 Office Visit Palliative Medicine Nan Campos MD [address] [place] [address] [place], [place] [address] 06/14/2023 Office Visit Family Medicine Landen Macario, [address] [place] [address] 07/28/2023 Office Visit Cardiology Cyril Johns PA-C [address] [place] [address] 10/01/2023 Cardiac Studies Cardiology Fredy Figueroa [facility] [address] [place] [address] Health Maintenance Due Date Last Done Comments [...] this encounter Medical Devices Implanted Type Area Alum Mixer Device Identifier Shelf Expiration Date Model / Serial / Lot Lens Intraoc 24.0 - [id number] - [id number] Implanted:Qty: 1 on 08/16/2018 by Adan Colon MD at OR [facility] Right: Eye [employer]OMB 11/17/2022 [id number] / [id number] / [id number] Lens Intraoc 24.0 - [id number] - [id number] Implanted:Qty: 1 on 08/23/2018 by Adan Colon MD at OR [facility] Left: Eye BAUSCH & LOMB 06/17/2023 [id number] / [id number] / [id number] Screw [employer] 3.2puy45gb - [id number] Implanted:Qty: 1 on 12/07/2019 by Amilcar Saavedra MD at OR [facility] Left: Foot EXACTECH [id number] / / documented as of this encounter [...] and were consensually agreed upon. Care Teams Mountain Bike Guide Relationship Specialty Start Date End Date Landen Macario, DO 200 [facility] [place] [place] [address] PCP - General Family Medicine 02/09/22 documented as of this encounter
--- OUTSIDE RECORDS SUMMARY | 2023-08-26 18:20 | External Medical Summary ---
Author Name Unknown Address Unknown Organization K01:[facility]ATORY [facility] - [address] [place] [address] Laboratory Report Ordering Provider Test Date Status BARBARA BISHOP 03/02/2023 08:41:23 Final Observation Date Value Abnormality Reference (Units ) Status Vitamin B12 03/02/2023 08:41:23 539 001-7600 (pg/mL) Final Performing Location [facility]ORY [facility] - [address] [place] [place] [address]
--- OUTSIDE RECORDS SUMMARY | 2023-08-26 18:20 | External Medical Summary ---
Author Name Unknown Address Unknown Organization K01:[facility] [place] [facility] [address] [facility] [address] Laboratory Report Ordering Provider Test Date Status ANIBAL FIERRO 03/02/2023 08:41:23 Final Observation Date Value Abnormality Reference (Units) Status Protein 08:41:23 6.0 6.0-8.3 (g/dL) Final Albumin/Protein.total [Pure mass fraction] in Serum or Plasma by Electrophoresis 3 08:41:23 3.42 3.30-4.40 (g/dL) Final Alpha 1 globulin/Protein.tota l [Pure mass fraction] in Serum or Plasma by Electrophoresis 3 08:41:23 0.27 0.10-0.30 (g/dL) Final Alpha 2 globulin/Protein.tota l [Pure mass fraction] in Serum or Plasma by Electrophoresis 3 08:41:23 1.05 Above high normal 0.60-1.00 (g/dL) Final Beta globulin/Protein.tota l [Pure mass fraction] in Serum or Plasma by Electrophoresis 3 08:41:23 0.89 0.80-1.30 (g/dL) Final Gamma globulin/Protein.tota l [Pure mass fraction] in Serum or Plasma by Electrophoresis 3 08:41:23 0.36 Below low normal 0.70-1.70 (g/dL) Final Protein Fractions [Interpretation] in Serum or Plasma by Electrophoresis Narrative 3 08:41:23 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 Paraprotein concentration is detectable, but less than 0.5 g/dL, unable to be accurately quantified by this method. Final Performing Location [facility] [place] - [address] [facility] [address]
--- OUTSIDE RECORDS SUMMARY | 2023-08-26 18:20 | External Medical Summary ---
Author Name Unknown Address Unknown Organization K01:[facility] - [address] [place] [address] Laboratory Report Ordering Provider Test Date Status FIERRO,MEMON 03/02/2023 08:41:23 Final Observation Date Value Abnormality Reference (Units ) Status IgG 03/02/2023 08:41:23 301 Below low normal 700 -1600 (mg/dL) Final IgA 03/02/2023 08:41:23 93 70-400 (mg /dL) Final IgM 03/02/2023 08:41:23 20 Below low normal 40- 230 (mg/dL) Final Performing Location LABORATORY [facility] - [address] [place] [address]
--- OUTSIDE RECORDS SUMMARY | 2023-08-26 18:20 | External Medical Summary | Summary of Care ---
Author Name Unknown Organization [facility] Address [address] [place] [address] Phone [phone] Care Team Providers Care Neonatal Intensive Care Unit Nurse Name Role Phone AhsanLanden nava Primary Care Provider [phone] Reason for Visit * Reason Comments Chemotherapy DarzalexFaspro Medication Administration Xgeva * Episode Based Medications (Routine) - Authorized Specialty Diagnoses / Procedures Referred By Contac t Referred To Contact Diagnoses Multiple myeloma not having achieved remission (HCC) Procedures NV DARATUMUMAB, HYALURONIDASE Chito Garcia MD [address] [facility] [place] [address] Anc Hem/Onc [address] [place] [address] Referral ID Status Reason Start Date Expiration Date V isits Requested Visits Authorized [id number] Authorized 08/27/2022 08/28/2023 99 99 Encounter Details Date Type Department Care Team Description 03/02/2023 Hem/Onc Treatment Hematology/Oncology Treatment, [address] [place] [address] Ashley, Chair 7 Hem Onc [address] [place] [address] Multiple myeloma not having achieved remission (HCC)*; Encounter for antineoplastic immunotherapy Allergies Active Allergy Reactions Severity Noted Date [...] or Wheezing. 18 g 3 04/03/2022 Active [id number] 1 MG Oral Tablet Chewable (Methylcobalamin) Take [...] goal of less than 8.0% ([facility]) Inject 40 Units under the skin every night at bedtime. 45 mL 1 02/15/2023 Active Hospital, Clinic, or Other Facility Administered Medication Ordered Dose Route Frequency Start Date End Date Status Albuterol Sulfate (Proventil) (5 MG/ML) 0.5% *conc* inhalation solution 2.5 mgIndications:ILD (interstitial lung disease) ([facility]),COPD, group A, by GOLD 2017 classification ([facility]) 2.5 mg NEBULIZER PRN 04/03/2022 04/03/2023 Acti ve Albuterol Sulfate (Proventil) (2.5 MG/3ML) 0.083% inhalation solution 2.5 mgIndications:ILD (interstitial lung disease) ([facility]),COPD, group A, by GOLD 2017 classification ([facility]) 2.5 mg NEBULIZER PRN 04/03/2022 04/03/2023 Acti ve documented as of this encounter (statuses as of 03/02/2023) Active Problems Problem Noted Date Chronic systolic (congestive) heart fail ure 06/25/2022 Coronary artery disease invo lving [place] coronary artery of [place] heart without angina pectoris 06/25/2022 Presence of [...] 0 05/26/2018 Rosacea 07/28/2001 05/26/2018 LOC PRIM [id number] 07/28/2001 05/26/20 18 documented as of this [...] Sign Reading Time Taken Comments Blood Pressure 102/65 03/02/2023 10:25 AM EDT Pulse 89 03/02/2023 10:25 AM EDT Temperature - - Respiratory Rate - - Oxygen Saturation - - Inhaled Oxygen Concentration - - Weight - - Height - - Body Mass Index - - documented in this encounter Nursing Notes * Sallie Rodriges RN - 03/02/2023 3:01 PM EDT Xgeva administered SQ in LUE. DarzalexFaspro administered SQ in LLQ. Pt tolerated injections well. Pt discharged in stable condition. * Sallie Rodriges RN - 03/02/2023 10:23 AM EDT Chair 9, DarzalexFaspro/Xgeva. Pt seen by Zion Veronica; refer to office visit notes. Labs within normal limits for treatment today. Pt denies dental/jaw pain, and has no recent or upcoming invasive dental procedures to report. documented in this encounter Plan of Treatment Upcoming Encounters Date Type Specialty Care Team Description 03/18/2023 Scheduled Telephone Pharmacy Joey [facility] Hem/Onc Tech [address] [place] [address] 03/24/20[address], DO [address] [place] [address] 03/30/2023 Telemedicine Pharmacy Pharmacist1, [facility] [address] [place] [address] 03/30/2023 Laboratory Laboratory [facility] [address] [facility] [place] [address] 03/30/2023 Office Visit Hematology Oncology [facility]ito [facility] MD [facility] [address] 03/30/2023 Hem/Onc Treatment Hematology Oncology [place], Chair 2 Hem Onc Sc[facility] [address] 05/05/2023 Office Visit Palliative Medicine Nan Campos MD [address] [place] [id number] 06/14/2023 Office Visit Family Medicine Landen Macario DO [address] [place] [address] 10/01/2023 Cardiac Studies Cardiology Fredy Figueroa [facility] [address] [place] [address] Health Maintenance Due Date Last Done Comments [...] and Over 05/20/2023 05/20/2022 HgA1C 09/02/2023 03/02/2023, 12/17, 10/08/2022, Additional history exists DIABETES-EYE EXAM 09/09/2023 09/09/2022, , 10/25/2019, Additional history exists DIG LEVEL FOR MEDICATION MONITORING YEARLY 01/05/2024 01/04/2023, 10/08/2022, 05/15/2022 GFR - Renal Function 03/02/2024 03/02/2023, 02/02/2023, 01/04/2023, Additional history exists DTaP,Tdap,and Td Vaccines (2 [...] this encounter Medical Devices Implanted Type Area Kiln Maintenance Device Identifier Shelf Expiration Date Model / Serial / Lot Lens Intraoc 24.0 - [id number] - [id number] Implanted:Qty: 1 on 08/16/2018 by Adan Colon MD at OR [facility] Right: Eye [employer] 11/17/2022 [id number] / [id number] / [id number] Lens Intraoc 24.0 - [id number] - [id number] Implanted:Qty: 1 on 08/23/2018 by [facility] Left: Eye [employer]OM[employer] 06/17/2023 [id number] / [id number] / [id number] Screw [employer] [id number] - [id number] Implanted:Qty: 1 on 12/07/2019 by Amilcar Saavedra MD at OR [facility] Left: Foot EX[employer]CH [id number] / / documented as of this encounter Visit Diagnoses Diagnosis Multiple myeloma not having achieved remission (HCC)- Primary Multiple myeloma, without mention of having achieved remission Encounter for antineoplastic immunotherapy documented in this encounter Administered Medications Active Administered Medications - up to 3 most recent administrations Medication Order MAR Action Action Date Dose Rate Site diphenhydrAMINE (Benadryl) inj 50 mg 50 mg, IV Push, ONCE PRN Other, Hypersensitivity Reaction, Starting on Wed03/02/23 at 1020, Until Wed03/03/23 at 1019, For 24 hours EPINEPHrine 1 MG/ML inj 0.3 mg 0.3 mg, Intramuscular, ONCE PRN Other, Hypersensitivity Reaction or Anaphylaxis, Starting on Wed03/02/23 at 1020, Until Wed03/03/23 at 1019, For 24 hours Hydrocortisone Sod Suc (PF) (Solu-Cortef) inj 100 mg 100 mg, IV Push, ONCE PRN Other, Hypersensitivity Reaction, Starting on Wed03/02/23 at 1020, Until Wed03/03/23 at 1019, For 24 hours meperidine (Demerol) 25 MG/ML inj 25 mg 25 mg, IV Push, ONCE PRN Shivering, Starting on Wed03/02/23 at 1020, Until Wed03/03/23 at 1019, For 24 hours Inactive Administered Medications - up to 3 most recent administrations Medication Order MAR Action Action Date Dose Rate Site Acetaminophen (Tylenol) tab 650 mg 650 mg, Oral, ONCE, On Wed03/02/23 at 1045, For 1 dose, Maximum of 4 grams (4000 mg) per day. Given 03/02/2023 10:26 AM EDT 650 mg Zumtkwjfyci-wcgtfddegwpvj-h ihj (Darzalex Faspro) 1800 mg-30619 units/ 15 ml subcut inj 15 mL, Subcutaneous, ONCE, On Wed03/02/23 at 1200, For 1 dose, Inject subcutanteously into abdomen over 3 to 5 minutes Given 03/02/2023 10:50 AM EDT 15 mL Abdomen Left Lower Denosumab (Xgeva) subcut inj 120 mg 120 mg, Subcutaneous, ONCE, On Wed03/02/23 at 1130, For 1 dose Given 03/02/2023 10:49 AM EDT 120 mg Arm Left Upper diphenhydrAMINE (Benadryl) cap 50 mg 50 mg, Oral, ONCE, On Wed03/02/23 at 1045, For 1 dose Given 03/02/2023 10:27 AM EDT 50 mg documented in this [...] and were consensually agreed upon. Care Teams Neonatal Intensive Care Unit Nurse Relationship Specialty Start Date End Date Landen Macario, DO [address] [facility] [place] [address] PCP - General Family Medicine 02/09/22 documented as of this encounter
--- OUTSIDE RECORDS SUMMARY | 2023-08-26 18:20 | External Medical Summary | Summary of Care ---
Author Name Unknown Organization [facility] Address [address] [facility] [place] [address] Phone [phone] Care Team Providers Care Press Setup Operator Name Role Phone AhsanLanden nava Primary Care Provider [phone] Encounter Details Date Type Department Care Team Description 03/11/2023 Result Scan Unspecified Department Jeremías Lane DO [address] [place] [address] <No scans attached> Allergies Active Allergy Reactions Severity Noted Date Comments Tizanidine 06/27/2021 documented as of this encounter (statuses as of 03/11/2023) Medications Medication Sig Dispensed Refills Start Date End Date Status LANCET DEVICE MISCIndications:DM type 2, not at goal ([facility]) test bid 100 3 07/27/2007 Active OMEGA 3 1000 MG PO CAPSIndications:Chr onic ischemic heart disease,Dyslipidemi a, goal LDL below 70 2 per day 90 Cap 0 08/22/2013 Active BD Pen Needle Short U/F 31G X 8 MM (Insulin Pen Needle)Indications: Type 2 diabetes mellitus with hemoglobin A1c goal of less than 8.0% ([facility]) USE DIRECTED WITH SOLSTAR 100 Each 3 10/14/2021 Active Calcium Carbonate-Vitamin D 600-400 MG-UNIT Oral TabletIndications:M ultiple myeloma not having achieved remission (HCC) Take by mouth 1 Tablet in the morning AND 1 Tablet before bedtime. 60 Tablet 2 12/15/2021 Active Additional Information Patient taking differently:1 Tablet OralDaily(AM), Take 1 tablet daily, Reason: per Dr. aGrcia, Reported on 11/12/2022 Gabapentin 300 MG Oral [...] or Wheezing. 18 g 3 04/03/2022 Active N72-Daxpib 1 MG Oral Tablet Chewable (Methylcobalamin) Take [...] 1 Each 3 03/04/2023 Active Dexcom G7 Director Revenue Device Use to check blood sugar 1 Each 1 03/04/2023 Active Hospital, Clinic, or Other Facility Administered Medication Ordered Dose Route Frequency Start Date End Date Status Albuterol Sulfate (Proventil) (5 MG/ML) 0.5% *conc* inhalation solution 2.5 mgIndications:ILD (interstitial lung disease) ([facility]),COPD, group A, by GOLD 2017 classification ([facility]) 2.5 mg NEBULIZER PRN 04/03/2022 04/03/2023 Acti ve Albuterol Sulfate (Proventil) (2.5 MG/3ML) 0.083% inhalation solution 2.5 mgIndications:ILD (interstitial lung disease) ([facility]),COPD, group A, by GOLD 2017 classification ([facility]) 2.5 mg NEBULIZER PRN 04/03/2022 04/03/2023 Acti ve documented as of this encounter (statuses as of 03/11/2023) Active Problems Problem Noted Date Chronic systolic (congestive) heart fail ure 06/25/2022 Coronary artery disease invo lving [place] coronary artery of [place] heart without angina pectoris 06/25/2022 Presence of cardiac pacemaker 03/24/2022 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 Metastatic cancer to bone 10/22/2021 Acute systolic congestive heart failure 10/08/2021 Multiple myeloma not having achieved rem ission 08/28/2021 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 09/08/2019 Gastroesophageal reflux disease without esophagitis 03/15/2019 watermelon inspector (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 of insulin 11/25 Paroxysmal atrial [...] as of this encounter (statuses as of 03/11/2023) Resolved Problems Problem Noted Date Resolved Date [...] 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,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 0 05/26/2018 Rosacea 07/28/2001 05/26/2018 LOC PRIM [id number] 07/28/2001 05/26/20 18 documented as of this encounter (statuses as of 03/11/2023) Immunizations Name Administration Dates Next Due COVID-19 [...] Team Description 03/18/2023 Scheduled Telephone Pharmacy [facility] Hem/Onc Tech [address] [facility] [place] [phone] 03/24/2023 Office Visit [address] Jeremías Lane O, DO [address] [place] [address] 03/30/2023 Telemedicine Pharmacy Pharmacist, [facility] [address] [facility] [place] [address] 03/30/2023 Laboratory Laboratory [place], Lab Scenery 200 [facility] [place] [address] 03/30/2023 Office Visit Hematology Oncology [facility]ito [facility] [address] [facility] [address] 03/30/2023 Hem/Onc Treatment Hematology Oncology [place], Chair 2 Hem Onc Scenery [address] [facility] [place] [address] 04/27/2023 Laboratory Laboratory [place], Lab Scenery [address] [facility] [place] [address] 04/27/2023 Office Visit Hematology Oncology [facility]ito [facility] [address] [facility] [address] 04/27/2023 Hem/Onc Treatment Hematology Oncology [place], Chair 9 Hem Onc Scenery [address] [facility] [place] [address] 05/05/2023 Office Visit Palliative Medicine Nan Campos MD [address] [place], [place] [address] [address] 06/14/2023 Office Visit Family Medicine Landen Macario, DO [address] [place] [address] 10/01/2023 Cardiac Studies Cardiology Fredy Figueroa [facility] [address] [facility] [place] [address] Health Maintenance Due Date Last Done Comments [...] this encounter Medical Devices Implanted Type Area Vessel Traffic Officer Device Identifier Shelf Expiration Date Model / Serial / Lot Lens Intraoc 24.0 - [id number] - [id number] Implanted:Qty: 1 on 08/16/2018 by Adan Colon MD at OR [facility] Right: Eye [employer] 11/17/2022 [id number] / [id number] / [id number] Lens Intraoc 24.0 - [id number] - [id number] Implanted:Qty: 1 on 08/23/2018 by Adan Colon MD at OR [facility] Left: Eye [employer]CH [employer]OM[employer] 06/17/2023 [id number] / [id number] / [id number] Screw [employer] [id number] - [id number] Implanted:Qty: 1 on 12/07/2019 by Amilcar Saavedra MD at OR [facility] Left: Foot EXACTECH [id number] / / documented as of this encounter Procedures Procedure Name Priority Date/Time Associated Diagnosis Comments CARDIOLOGY SCANNED RESULT 03/11/2023 documented in this encounter Results * CARDIOLOGY SCANNED RESULT (03/11/2023) 03/11/2023 Jeremías TURCIOS documented in this encounter Advance [...] and were consensually agreed upon. Care Teams Press Setup Operator Relationship Specialty Start Date End Date Landen Macario, DO [address] [place] [address] PCP - General Family Medicine 02/09/22 documented as of this encounter
--- OUTSIDE RECORDS SUMMARY | 2023-08-26 18:20 | External Medical Summary | Summary of Care ---
Author Name Unknown Organization [facility] Address [address] [facility] [place] [address] Phone [phone] Care Team Providers Care Primary Grade Teacher Name Role Phone Landen Macario Primary Care Provider [phone] Reason for Visit * Reason Comments Chemotherapy Encounter Details Date Type Department Care Team Description 03/02/2023 Office Visit Hematology/Oncology [facility] [address] [place] [address] Grace Veronica CRNP [address] [facility] [place] [address] Multiple myeloma not having achieved remission (HCC)*; Anemia, unspecified type; Encounter for antineoplastic chemotherapy Allergies Active Allergy Reactions Severity Noted Date Comments Tizanidine 06/27/2021 documented as of this encounter (statuses as of 03/03/2023) Medications Medication Sig Dispensed Refills Start Date [...] hemoglobin A1c goal of less than 8.0% ([facility]) USE DIRECTED WITH SOLSTAR 100 Each 3 [...] or Wheezing. 18 g 3 04/03/2022 Active C20-Lunghx 1 MG Oral Tablet Chewable (Methylcobalamin) Take [...] 02/04/2023 Active Lenalidomide 10 MG Oral Capsule (Revlimid)Indicati [...] at bedtime. 45 mL 1 02/15/2023 Active TYLENOL ARTHRITIS PAIN 650 MG PO TBCR 2 po prn 0 01/19/2007 3 Discontinue d(Medicatio n List Clean Up) Docusate Sodium 100 MG Oral Capsule (Colace) Take 1 Capsule by mouth in the morning and 1 Capsule before bedtime. 0 3 Discontinue d(Medicatio n List Clean Up) Polyethylene Glycol 3350 17 GM/SCOOP Oral Powder (Miralax) Take 17 g by mouth daily as needed. 0 3 Discontinue d(Medicatio n List Clean Up) Ferrous Sulfate 325 (65 Fe) MG Oral Tablet (Feosol) Take 1 Tablet by mouth daily with breakfast. 0 3 Discontinue d(Medicatio n List Clean Up) Nitroglycerin 0.4 MG Sublingual Tablet Sublingual (Nitrostat) Place 1 Tablet under the tongue every 5 minutes as needed for Pain, Chest. up to 3 doses in 15 minutes 25 Tablet 11 10/05/2022 3 Discontinue d(Medicatio n List Clean Up) Acyclovir 400 MG Oral Tablet (Zovirax)Indicatio ns:Multiple myeloma not having achieved remission (HCC) TAKE 1 TABLET BY MOUTH EVERY DAY IN THE MORNING AND BEFORE BEDTIME 180 Tablet 3 02/01/2023 3 Discontinue d(Medicatio n List Clean Up) Hospital, Clinic, or Other Facility Administered Medication Ordered Dose Route Frequency Start Date End Date Status Albuterol Sulfate (Proventil) (5 MG/ML) 0.5% *conc* inhalation solution 2.5 mgIndications:ILD (interstitial lung disease) (HCC),COPD, group A, by GOLD 2017 classification ([facility]) 2.5 mg NEBULIZER PRN 04/03/2022 04/03/2023 Acti ve Albuterol Sulfate (Proventil) (2.5 MG/3ML) 0.083% inhalation solution 2.5 mgIndications:ILD (interstitial lung disease) (HCC),COPD, group A, by GOLD 2017 classification ([facility]) 2.5 mg NEBULIZER PRN 04/03/2022 04/03/2023 Acti ve documented as of this encounter (statuses as of 03/03/2023) Active Problems Problem Noted Date Chronic systolic (congestive) heart fail ure 06/25/2022 Coronary artery disease invo lving elim ira coronary artery of elim ira heart without angina pectoris 06/25/2022 Presence of cardiac pacemaker 03/24/2022 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 Metastatic cancer to bone 10/22/2021 Acute systolic congestive heart failure 10/08/2021 Multiple myeloma not having achieved rem ission 08/28/2021 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 09/08/2019 Gastroesophageal reflux disease without esophagitis 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/2019 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 11/25 Paroxysmal [...] as of this encounter (statuses as of 03/03/2023) Resolved Problems Problem Noted Date Resolved Date [...] 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,rt buddhist 07/05/2002 0 05/26/2018 Rosacea 07/28/2001 05/26/2018 LOC PRIM [id number] 07/28/2001 05/26/20 18 documented as of this encounter (statuses as of 03/03/2023) Immunizations Name Administration Dates Next Due COVID-19 mRNA, LNP-s, No Pre serve, 2-Dose Series ([employer]) 08/27/2021,01/04/2021,12/02/2020 Covid-19 Mrna, Lnp-s, No Pre serve, Booster (Moderna) 05/07/2022 Covid-19, Mrna, Lnp-s, Pf, B ivalent Booster, 30 Mcg, IM, 12 yrs and above ([employer]) 09/04/2022 H1N1 2009 Influenza, IM 09/22/2009 PPD [...] Time Taken Comments Blood Pressure 102/65 03/02/2023 9:31 AM EDT Pulse 89 03/02/2023 9:31 AM EDT Temperature 36.6 C (97.8 F) 03/02/2023 9:31 AM ED T Respiratory Rate 16 03/02/2023 9:31 AM EDT Oxygen Saturation 97% 03/02/2023 9:31 AM EDT Inhaled Oxygen Concentration - - Weight 70.8 kg (156 lb) 03/02/2023 9:31 AM EDT Height - - Body Mass Index 21.31 01/11/2023 3:38 PM EDT documented in this encounter Progress Notes * MADISON Baker - 03/02/2023 9:30 AM EDT Hematology/Oncology Outpatient Clinic note Maddy Ramirez [address] [place] [address] Name: Dev Hernandez Date: 03/01/2023 CHIEF COMPLAINT: Dev Hernandez is a 77 year old male patient of Dr. Dale Radha here today for f/u visit today. From Patient chart confirmed with patient. HEMATOLOGY/ONCOLOGY DIAGNOSIS: Multiple myelomaIgAkappawith lytic bone lesions Patient has stage II disease based on the revised international multiple myeloma staging system(beta 2 microglobulin 4.02, serum albumin more than 3.5 gram/dL, normal LDH and no deletion of high risk translocation based on the FISH result DATE OF DIAGNOSIS: 08/18/21 CURRENT TREATMENT: Darzalex plus Revlimid and Decadron(09/17/22 - ) Cycles 1 and 2: A cycle is every 28 days: Lenalidomide (Revlimid) 25 mg flat dose orally once daily on days 1 through 21 of cycles 1 and 2 Dexamethasone 20 mg flat dose orally or IV once daily on days 1, 2, 8, 9, 15, 16, 22, and 23of cycles 1 and 2 Daratumumab and hyaluronidase-fihj (Darzalex Faspro) 1,800 mg/30,000 units flat dose subcutaneously once daily on days 1, 8, 15, and [...] (Darzalex Faspro) 1,800 mg/30,000 units flat dose subcutaneously once daily on days 1 and 15 of [...] (Darzalex Faspro) 1,800 mg/30,000 units flat dose subcutaneously once on day 1 of cycles 7 and beyond Xgeva 120 mg subq every four weeks TREATMENT HISTORY: Revlimid plus Velcade and Decadron-treatment is on hold becauseof other comorbid condition. He was also evaluated for the stem cell transplant but not eligible because of comorbid conditions. Received last cycle of Revlimid between 03/16/2022-03/29/2022. Received last dose of Velcade on 04/21/2022 ONCOLOGY HISTORY: Patientwith past medical history significant for atrial fibrillation, [...] in adequate numbers. 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 M:E ratio is approximately [...] on 02/16/2022 which again revealed excellent response withInterval sclerosis and resolution [...] discharged on oxygen supplement [facility] Because of comorbid conditionsand worsening performance status his treatment was placed on hold. Now clinically he is feeling better with improvement in energy level. He is walking with a cane and gain weight. Room air oxygen saturation is 100%. Recent blood test revealed increase in the kappa free light chain level with increasing ratio. Patient has progressive disease with increase light chain. He received last dose of Velcade in 04/2022. Decision was made to resume treatment withDarzalex plus Revlimid and Decadron. Started new treatment plan 09/17/22. Interval History: Currently he is on Darzalex on every other week basis plus Revlimid and Decadron. Myeloma panel is in acceptable range and he seems to be in remission. Because of the comorbid condition and high risk of infection and complication I will decrease the frequency of Darzalex to monthly and Decadronto 20 mg starting 01/04/23. Was determined to not be a candidate for SCT. HISTORY OF PRESENT ILLNESS: Dev Hernandez is a 77 year old male with a history as outlined above. Currently here for f/u visit today and C6D1 of treatment plus Xgeva injection. Is confused by his dexamethasone schedule. Unsure how much to be taking and which days. Denies any other questions or concerns today. Pain continues to be well controlled on current regimen. Taking medical marijuana rarely. Uses gummies at night just one to help him sleep. Has done this three times so far. Foot ulceration has healed up nicely. Gets some pain in his legs on the Revlimid. Has not had any chest pain recently. Is on increased dose of beta annika. Continues to have nausea. Pills are effective. Takes these twice a day. Omeprazole also helped with this. Appetite comes and goes. Does seem to be improving. Denies rash. 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 Takes senokot as needed. Pain well controlled on Morphine IR. Tries to only take this once a day at night. Pain is mostly in his right leg. Off week of Revlimid currently. Denies black or bloody bowel movements. Past Medical History: Diagnosis Date Atrial fibrillation [...] performed by Cyril Aguiar DO at OR [facility] CABG, ARTERIAL, FOUR OR MORE 1993 CABG, Arterial, Four+ COLONOSCOPY, DIAGNOSTIC (RECTUM) 11/16/2016 adenomatous polyps, repeat 5 yrs/COLONOSCOPY FLEXIBLE PROXIMAL DIAGNOSTIC performed by Jorje Lee MD at ENDOSCOPY [facility] DIABETIC EYE EXAM 12/23/09 no diabetic retinopathy INCISION OF 1ST METATARSAL Left 12/07/2019 OSTEOTOMY 1ST METATARSAL performed by Amilcar Saavedra MD at OR [facility] INFORMATION 07/21 ORIF left foot MTPJ INFORMATION 10/22 revision of MTP joint IR ARTERIOGRAM EXTREMITY UNILATERAL Left 08/28/2015 IMAGING SUPERVISION & INTERPRETATION EXTREMITY UNILATERAL performed by Delroy Benz MD at OR [facility] IR BIOPSY 08/04/2021 IR BIOPSY 08/18/2021 MOHS SURG STAGE [address] CATHETER IN ARTERY, THIRD Left 08/28/2015 CATHETER PLACEMENT, ABDOMINAL-LOWER EXTREMITY, THIRD ORDER BRANCH performed by Delroy Benz MD at OR [facility] RELIEVE INNER EYE PRESSURE Right 08/16/2018 right GONIOTOMY performed by Adan Colon MD at OR [facility] RELIEVE INNER EYE PRESSURE Left 08/23/2018 left GONIOTOMY performed by Adan Colon MD at OR [facility] REMOVAL OF DEEP SUPPORT IMPLANT Left 12/07/2019 REMOVAL OF IMPLANT DEEP performed by Amilcar Saavedra MD at OR [facility] REMOVE CATARACT, INSERT LENS PROSTH Right 08/16/2018 right EXTRACAPSULAR CATARACT REMOVAL WITH INTRAOCULAR LENS performed by Adan Colon MD at OR [facility] REMOVE CATARACT, INSERT LENS PROSTH Left 08/23/2018 left EXTRACAPSULAR CATARACT REMOVAL WITH INTRAOCULAR LENS performed by Adan Colon MD at OR [facility] TOTAL HIP REPLACEMENT & PROSTHESIS 1996 THR (Hip Total Replacement) Social History Tobacco Use Smoking status: Former Packs/day: 1.50 Years: 25.00 Pack years: 37.50 Types: Cigarettes Quit date: 10/18/1979 Years since quittin.3 Smokeless tobacco: Never Tobacco comments: occ. cigar Vaping Use Vaping Use: Never used Substance and Sexual Activity Alcohol use: Yes Comment: very rare Drug use: Yes Types: Marijuana Comment: Liquid, medical marijuana; also has gummies Sexual activity: Yes Partners: Female Review of patient's allergies indicates: Allergen Reactions Tizanidine Current Outpatient Medications Medication Sig Dispense Refill TYLENOL ARTHRITIS PAIN 650 MG PO TBCR 2 po prn (Patient not taking: Reported on 02/04/2023) 0 LANCET DEVICE MISC test bid 100 3 OMEGA 3 1000 MG PO CAPS 2 per day 90 Cap 0 Docusate Sodium 100 MG Oral Capsule (Colace) Take 1 Capsule by mouth in the morning and 1 Capsule before bedtime. (Patient not taking: Reported on 02/04/2023) Polyethylene Glycol 3350 17 GM/SCOOP Oral Powder (Miralax) Take 17 g by mouth daily as needed. (Patient not taking: Reported on 02/04/2023) BD Pen Needle Short U/F 31G X [...] of Breath or Wheezing. 18 g 3 Z79-Cigrok 1 MG Oral Tablet Chewable (Methylcobalamin) Take by mouth daily . Ferrous Sulfate 325 (65 Fe) MG Oral Tablet (Feosol) Take 1 Tablet by mouth daily with breakfast. (Patient not taking: Reported on 02/04/2023) Digoxin 125 MCG Oral Tablet (Lanoxin) Take 1 Tablet by mouth every other day. 90 Tablet 3 Nitroglycerin 0.4 MG Sublingual Tablet Sublingual (Nitrostat) Place 1 Tablet under the tongue every 5 minutes as needed for Pain, Chest. up to 3 doses in 15 minutes (Patient not taking: Reported on 02/04/2023) 25 Tablet 11 Potassium Chloride Raven ER 20 MEQ Oral [...] BY MOUTH EVERY DAY 90 Tablet 1 Acyclovir 400 MG Oral Tablet (Zovirax) TAKE 1 TABLET BY MOUTH EVERY DAY IN THE MORNING AND BEFORE BEDTIME (Patient not taking: Reported on 02/04/2023) 180 Tablet 3 Metoprolol Succinate ER 50 MG Oral Tablet Extended Release 24 Hour (toPROL XL) Take 1 Tablet bymouth in the morning and 1 Tablet before bedtime. 180 Tablet 3 Lenalidomide 10 MG Oral Capsule (Revlimid) TAKE 1 CAPSULE BY MOUTH 1 TIME A DAY FOR 21 DAYS ON THEN 7 DAYS OFF 21 Capsule 0 Victoza 18 MG/3ML Subcutaneous Solution Pen-injector (Liraglutide) Inject 1.8 mg under the skinin the morning. 27 mL 3 Insulin Glargine Solostar 100 UNIT/ML Subcutaneous Solution Pen-injector (Basaglar KwikPen) Inject 40 Units under the skin every night at bedtime. 45 mL 1 Current Facility-Administered Medications Medication Dose Route Frequency Provider Last Rate Last Admin Albuterol Sulfate (Proventil) (5 MG/ML) 0.5% *conc* inhalation solution 2.5 mg 2.5 mg NebulizerMADISON Mejia Albuterol Sulfate (Proventil) (2.5 MG/3ML) 0.083% inhalation solution 2.5 mg 2.5 mg Nebulizer SHRUTIN MADISON Hodgson REVIEW OF SYSTEMS: See HPI - otherwise negative OBJECTIVE: Filed Vitals: 03/02/23 0931 BP: 102/65 Pulse: 89 Resp: 16 Temp: 36.6 C (97.8 F) TempSrc: Tympanic SpO2: 97% Weight: 70.8 kg (156 lb) Wt Readings from Last 5 Encounters: 03/02/23 70.8 kg (156 lb) 02/04/23 69.9 kg (154 lb) 02/02/23 68.2 kg (150 lb 4.8 oz) 01/27/23 69.1 kg (152 lb 4.8 oz) 01/11/23 71.2 kg (157 lb) PHYSICAL EXAM: ECOG: Performance Status 1 = 80-90% Symptoms but nearly ambulatory General Appearance: No acute distress HEENT: Normal - No oral or pharyngeal masses, ulceration or thrush noted Lymph Nodes: Normal - No palpable lymph nodes in the neck or supraclavicular areas Lungs/Thorax: Normal - Clear to auscultation Heart: Normal - Regular rate and rhythm, normal S1, S2, no appreciable murmurs Extremities: no edema Neurologic: alert and oriented x 4, ambulates with cane LABS: Results for orders placed or performed in visit on 03/02/23 PHOSPHORUS Result Value Ref Range Phosphorus 4.1 2.5 - 4.8 mg/dL COMPREHENSIVE METABOLIC PANEL Result Value Ref Range BUN 12 6 - 20 mg/dL Creatinine 1.2 0.6 - 1.2 mg/dL Estimated Glomerular Filtration Rate 63 >=60 mL/min Sodium 143 135 - 146 mmol/L Potassium 4.1 3.5 - 5.1 mmol/L Chloride 108 (H) 98 - 107 mmol/L CO2 22 22 - 32 mmol/L Anion Gap 13 7 - 15 mmol/L Glucose 61 (L) 70 - 120 mg/dL Albumin 4.2 3.8 - 5.0 g/dL AST 13 10 - 50 U/L Alkaline Phosphatase 62 35 - 130 U/L Bilirubin, Total 0.6 <=1.2 mg/dL Calcium 9.3 8.4 - 10.2 mg/dL Protein 6.3 6.0 - 8.3 g/dL ALT 13 10 - 50 U/L CBC Result Value Ref Range WBC 3.32 (L) 4.00 - 10.80 K/uL RBC 3.23 4.50 - 5.25 M/uL HGB 9.9 (L) 14.0 - 16.8 g/dL HCT 32.0 (L) 40.0 - 48.4 % MCV 99.1 82.0 - 99.5 fL MCH 30.7 27.0 - 34.0 pg MCHC 30.9 32.0 - 36.0 g/dL RDW 16.3 11.5 - 15.5 % PLT 155 140 - 400 K/uL MPV 11.6 6.6 - 11.1 fL DIFFERENTIAL, AUTOMATED Result Value Ref Range WBC 3.32 (L) 4.00 - 10.80 K/uL Neutrophils % 52.4 40.0 - 75.0 % Lymphocytes % 24.4 18.0 - 42.0 % Monocytes % 17.8 (H) 1.0 - 11.0 % Eosinophils % 4.8 0.0 - 6.0 % Basophils % 0.6 0.0 - 2.0 % Absolute Neutrophils 1.74 (L) 1.80 - 7.70 K/uL Absolute Lymphocytes 0.81 (L) 1.00 - 4.80 K/ul Absolute Monocytes 0.59 0.00 - 1.10 K/uL Absolute Eosinophils 0.16 0.00 - 0.70 K/uL Absolute Basophils 0.02 0.00 - 0.20 K/uL *Note: Due to a large number of results and/or encounters for the requested time period, some results have not been displayed. A complete set of results can be found in Results Review. IMPRESSION/PLAN: Multiple myeloma with lytic bone lesions Anemia Encounter for chemotherapy With improvement in PS treatment resumed 09/17/22 withDarzalex plus Revlimid and Decadron Lab results reviewed: CMP and phos WNL Worsening anemia with Hgb of 9.9 - added on ferritin, iron screen, vitamin b12 and folic acid level Myeloma labs pending - will follow Ok for Darzalex Faspro and Xgeva injections today as scheduled. Educated patient that he should be taking Dexamethasone 20 mg weekly and not just on weeks of Darzalex Faspro injection. Patient verbalized understanding. Continue Revlimid 10 mg daily for a total of 21 out of 28 days. Currently on off week. ContinueAcyclovir prophylaxis Continue calcium/vitamin d tablet once daily Pain well controlled on current regimen - continue to follow with palliative care. RTC as scheduled MADISON Atkinson documented in this encounter Nursing Notes * Brittany Robledo CMA - 03/02/2023 9:33 AM EDT Patient identifed by name and [...] it for you? ALREADY ACTIVE Filed Vitals: 03/02/23 0931 BP: 102/65 Pulse: 89 Resp: 16 Temp: 36.6 C (97.8 F) TempSrc: Tympanic SpO2: 97% Weight: 70.8 kg (156 lb) Patient was instructed to not get [...] Joey Heath Hem/Onc Tech [address] [facility] [place] [address] 03/24/2023 Office [address] Jeremías Lane, DO [address] [place] [address] 03/30/2023 [facility]medicine [facility] [address] [facility] [place] [address] 03/30/2023 Laboratory Laboratory [place], Lab Scenery [address] [facility] [place] [address] 03/30/2023 Office Visit Hematology Oncology Chito Garcia MD [address] [place] [address] 03/30/2023 Hem/Onc Treatment Hematology Oncology [place], Chair 2 Hem Onc Scenery [address] [place] [address] 04/27/2023 Laboratory Laboratory [place] Lab Scenery [address] [place] [place] [address] 04/27/2023 Office Visit Hematology Oncology Chito Garcia MD [address] [place] [address] 04/27/2023 Hem/Onc Treatment Hematology Oncology [place], Chair 9 Hem Onc Scenery [address] [facility] [place] [address] 05/05/2023 Office Visit Palliative Medicine Nan Campos MD [address] [place] [address] [place] [id number] 06/14/2023 Office Visit Family Medicine Landen Macario DO [address] [place] [address] 10/01/2023 Cardiac Studies [facility] [address] [place] [address] Scheduled Orders Name Type Priority Associated Diagnoses Orde r Schedule IRON SCREEN, INCLUDING TIBC Lab Routine Multiple myeloma not having achieved remission (HCC) Anemia, unspecified type Ordered: 03/03/2023 FERRITIN Lab Routine Multiple myeloma not having achieved remission (HCC) Anemia, unspecified type Ordered: 03/03/2023 VITAMIN B12 Lab Routine Multiple myeloma not having achieved remission (HCC) Anemia, unspecified type Ordered: 03/03/2023 FOLIC ACID Lab Routine Multiple myeloma not having achieved remission (HCC) Anemia, unspecified type Ordered: 03/03/2023 Health Maintenance Due Date Last Done Comments [...] this encounter Medical Devices Implanted Type Area Keno Terminal Operator Device Identifier Shelf Expiration Date Model / Serial / Lot Lens Intraoc 24.0 - [id number] - [id number] Implanted:Qty: 1 on 08/16/2018 by Adan Colon MD at OR [facility] Right: Eye [employer] 11/17/2022 [id number] / [id number] / [id number] Lens Intraoc 24.0 - [id number] - [id number] Implanted:Qty: 1 on 08/23/2018 by Adan Colon MD at OR [facility] Left: Eye [employer] 06/17/2023 [id number] / [id number] / [id number] Screw [employer] 3.8zar23ub - [id number] Implanted:Qty: 1 on 12/07/2019 by Amilcar Saavedra MD at OR [facility] Left: Foot [employer] [id number] / / documented as of this encounter Visit Diagnoses Diagnosis Multiple myeloma not having achieved remission (HCC)- Primary Multiple myeloma, without mention of having achieved remission Anemia, unspecified type Encounter for antineoplastic chemotherapy documented in this [...] and were consensually agreed upon. Care Teams Primary Grade Teacher Relationship Specialty Start Date End Date Landen Macario, DO [address] [place] [address] PCP - General Family Medicine 02/09/22 documented as of this encounter
--- OUTSIDE RECORDS SUMMARY | 2023-08-26 18:20 | External Medical Summary ---
Author Name Unknown Address Unknown Organization [id number]:LABORATORY [facility] [place] [address] Laboratory Report Ordering Provider Test Date Status ANIBAL FIERRO 03/02/2023 08:41:23 Final Observation Date Value Abnormality Reference (Units ) Status [place] light chains, Free, Serum 03/02/2023 08:41:23 14.76 3.30-19.40 (mg/L) Final [place] light chains, free, Serum 03/02/2023 08:41:23 15.45 5.71-26.30 (mg/L) Final KAPPA LAMBDA FLC RATIO 03/02/2023 08:41:23 0.96 0.26-1.65 Final Performing Location LABORATORY [facility] - [facility] [place] [address]
--- OUTSIDE RECORDS SUMMARY | 2023-08-26 18:21 | External Medical Summary | Summary of Care ---
Author Name Unknown Organization [facility] Address [address] [place] [address] Phone [phone] Care Team Providers Care Physical Education Specialist Name Role Phone AhsanLanden nava Primary Care Provider [phone] Encounter Details Date Type Department Care Team Description 02/25/2023 Orders Only Hematology/Oncology [facility] [address] [place] [address] Chito Garcia MD [address] [place] [address] Allergies Active Allergy Reactions Severity Noted Date Comments Tizanidine 06/27/2021 documented as of this encounter (statuses as of 02/25/2023) Medications Medication Sig Dispensed Refills Start Date [...] or Wheezing. 18 g 3 04/03/2022 Active [id number] 1 MG Oral Tablet Chewable (Methylcobalamin) Take [...] 2 diabetes mellitus with peripheral vascular disease ([facility]) Inject 1.8 mg under the skin in the morning. 27 mL 3 02/15/2023 Active Insulin Glargine Solostar 100 UNIT/ML Subcutaneous Solution Pen-injector (Basaglar KwikPen)Indications :Type 2 diabetes mellitus with hemoglobin A1c goal of less than 8.0% ([facility]) Inject 40 Units under the skin every night at bedtime. 45 mL 1 02/15/2023 Active Hospital, Clinic, or Other Facility Administered Medication Ordered Dose Route Frequency Start Date End Date Status Albuterol Sulfate (Proventil) (5 MG/ML) 0.5% *conc* inhalation solution 2.5 mgIndications:ILD (interstitial lung disease) ([facility]),COPD, group A, by GOLD 2017 classification ([facility]) 2.5 mg NEBULIZER PRN 04/03/2022 04/03/2023 Acti ve Albuterol Sulfate (Proventil) (2.5 MG/3ML) 0.083% inhalation solution 2.5 mgIndications:ILD (interstitial lung disease) ([facility]),COPD, group A, by GOLD 2017 classification (HCC) 2.5 mg NEBULIZER PRN 04/03/2022 04/03/2023 Acti ve documented as of this encounter (statuses as of 02/25/2023) Active Problems Problem Noted Date Chronic systolic (congestive) heart fail ure 06/25/2022 Coronary artery disease invo lving [place] coronary artery of [place] heart without angina pectoris 06/25/2022 Presence of cardiac pacemaker 03/24/2022 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 Metastatic cancer to bone 10/22/2021 Acute systolic congestive heart failure 10/08/2021 Multiple myeloma not having achieved rem ission 08/28/2021 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 09/08/2019 Gastroesophageal reflux disease without esophagitis 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 11/25 [...] as of this encounter (statuses as of 02/25/2023) Resolved Problems Problem Noted Date Resolved Date [...] update of inactive term lentigo maligna,rt gnosticism 07/05/2002 0 05/26/2018 Rosacea 07/28/2001 05/26/2018 LOC PRIM [id number] 07/28/2001 05/26/20 18 documented as of this encounter (statuses as of 02/25/2023) Immunizations Name Administration Dates Next Due COVID-19 [...] Date Type Specialty Care Team Description 03/02/2023 Laboratory Laboratory [facility], Lab Scenery [address] [place] [address] 03/02/2023 Office Visit Hematology Oncology Grace Veronica CRNP [address] [place] [address] 03/02/2023 Hem/Onc Treatment Hematology Oncology [place], Chair 7 Hem Onc Scenery [address] [place] [address] 03/18/2023 Scheduled Telephone Pharmacy Atilio Heath Hem/Onc Tech [address], [place] [id number] 03/24/20[address] Jeremías Lane, DO [address] [place] [address] 03/30/2023 [facility] [address] [place] [address] 03/30/2023 Laboratory Laboratory [place] [facility] [address] [place] [address] 03/30/2023 Office Visit Hematology Oncology Chito Garcia MD [address] [place] [address] 03/30/2023 Hem/Onc Treatment Hematology Oncology [place], Chair 2 Hem Onc [facility] [address] [place] [address] 05/05/2023 Office Visit Palliative Medicine Nan Campos MD [address] [place], [place] [address] [place] [id number] 06/14/2023 Office Visit Family Medicine Landen Macario DO [address] [place] [address] 10/01/2023 Cardiac Studies Cardiology [facility] [address] [place] [address] Health Maintenance Due Date Last Done Comments [...] and Over 05/20/2023 05/20/2022 HgA1C 07/07/2023 01/04/2023, 12/11/2021, 12/15/2021, Additional history exists DIABETES-EYE EXAM 09/09/2023 [...] this encounter Medical Devices Implanted Type Area Target Developer Device Identifier Shelf Expiration Date Model / Serial / Lot Lens Intraoc 24.0 - [id number] - [id number] Implanted:Qty: 1 on 08/16/2018 by Adan Colon MD at OR [facility] Right: Eye [employer] 11/17/2022 [id number] / [id number] / [id number] Lens Intraoc 24.0 - [id number] - [id number] Implanted:Qty: 1 on 08/23/2018 by Adan Colon MD at OR [facility] Left: Eye [employer] 06/17/2023 [id number] / [id number] / [id number] Screw [employer] [id number] - [id number] Implanted:Qty: 1 on 12/07/2019 by Amilcar Saavedra MD at OR [facility] Left: Foot [employer] [id number] / / documented as of this encounter [...] and were consensually agreed upon. Care Teams Physical Education Specialist Relationship Specialty Start Date End Date Landen Macario, DO [address] [place] [address] PCP - General Family Medicine 02/09/22 documented as of this encounter
--- OUTSIDE RECORDS SUMMARY | 2023-08-26 18:21 | External Medical Summary ---
Author Name Unknown Address Unknown Organization [id number]:[facility] - [address] [place] [address] Laboratory Report Ordering Provider Test Date Status BARBARA BISHOP 03/02/2023 08:41:23 Final Observation Date Value Abnormality Reference (Units ) Status Iron 03/02/2023 08:41:23 69 45-176 (ug /dL) Final Iron-binding capacity 03/02/2023 08:41:23 308 250-425 (ug/dL) Final Transferrin Sat % 03/02/2023 08:41:23 22 15 -55 (%) Final Performing Location [facility] - [address] [place] [address]
--- OUTSIDE RECORDS SUMMARY | 2023-08-26 18:21 | External Medical Summary ---
Author Name Unknown Address Unknown Organization [id number]:[facility] [place] [address] Laboratory Report Ordering Provider Test Date Status ANIBAL FIERRO 03/02/2023 08:41:23 Final Observation Date Value Abnormality Reference (Units ) Status Phosphate 03/02/2023 08:41:23 4.1 2.5-4.8 (m g/dL) Final Performing Location [facility] [place] [address]
--- OUTSIDE RECORDS SUMMARY | 2023-08-26 18:21 | External Medical Summary ---
Author Name Unknown Address Unknown Organization [id number]:[facility] [address] [place] [address] Laboratory Report Ordering Provider Test Date Status ANIBAL FIERRO 03/02/2023 08:41:23 Final Observation Date Value Abnormality Reference (Units ) Status SYNC LEUKOCYTES IN BLOOD BY AUTOMATED COUNT 03/02/2023 08:41:23 3.32 Below low normal 4.00-10.80 (K/uL) Final Segs 03/02/2023 08:41:23 52.4 40.0-75.0 (%) Final Lymphs % 03/02/2023 08:41:23 24.4 18.0-42.0 (%) Final Monos 03/02/2023 08:41:23 17.8 Above high normal 1.0-11.0 (%) Final Eosinophils 03/02/2023 08:41:23 4.8 0.0-6.0 (%) Final Basos 03/02/2023 08:41:23 0.6 0.0-2.0 (%) Final Absolute Segs 03/02/2023 08:41:23 1.74 Below low normal 1.80-7.70 (K/uL) Final Lymphs, absolute 03/02/2023 08:41:23 0.81 Below low normal 1.00-4.80 (K/ul) Final Monos, Abs 03/02/2023 08:41:23 0.59 0.00-1.10 (K/uL) Final Eos, Abs 03/02/2023 08:41:23 0.16 0.00-0.70 (K/uL) Final Basos, Abs 03/02/2023 08:41:23 0.02 0.00-0.20 (K/uL) Final Performing Location [facility] [place] [address]
--- OUTSIDE RECORDS SUMMARY | 2023-08-26 18:21 | External Medical Summary ---
Author Name Unknown Address Unknown Organization K09:[facility] [address] [place] [address] Laboratory Report Ordering Provider Test Date Status ANIBAL FIERRO 03/02/2023 08:41:23 Final Observation Date Value Abnormality Reference (Units ) Status BUN 03/02/2023 08:41:23 12 6-20 (mg/dL) Final Creatinine 03/02/2023 08:41:23 1.2 0.6-1.2 (mg/dL) Final Glomerular filtration rate/1.73 sq M.predicted [Volume Rate/Area] in Serum, Plasma or Blood by Creatinine-based formula (CKD-EPI) 03/02/2023 08:41:23 63 >=60 (mL/min) Final eGFR is calculated based on the CKD-EPI 2020 equation SODIUM 03/02/2023 08:41:23 143 135-146 (m mol/L) Final Potassium 03/02/2023 08:41:23 4.1 3.5-5.1 (m mol/L) Final Cl 03/02/2023 08:41:23 108 Above high normal 98 -107 (mmol/L) Final CO2 03/02/2023 08:41:23 22 22-32 (mmo l/L) Final Anion gap 03/02/2023 08:41:23 13 7-15 (mmol /L) Final Glucose 03/02/2023 08:41:23 61 Below low normal 70- 120 (mg/dL) Final Albumin 03/02/2023 08:41:23 4.2 3.8-5.0 (g /dL) Final AST (Aspartate aminotransferase) 03/02/2023 08:41:23 13 10-50 (U/L) Fin al Alk Phos 03/02/2023 08:41:23 62 35-130 (U/ L) Final Bilirubin, Total 03/02/2023 08:41:23 0.6 <=1 .2 (mg/dL) Final Calcium 03/02/2023 08:41:23 9.3 8.4-10.2 ( mg/dL) Final Protein 03/02/2023 08:41:23 6.3 6.0-8.3 (g /dL) Final ALT (Alanine aminotransferase) 03/02/2023 08:41:23 13 10-50 (U/L) Marcelo lobato Performing Location [facility] [address] [place] [address]
--- OUTSIDE RECORDS SUMMARY | 2023-08-26 18:21 | External Medical Summary ---
Author Name Unknown Address Unknown Organization K01:[facility] - [address] [place] [address] Laboratory Report Ordering Provider Test Date Status DARIOBARBARA 03/02/2023 08:41:23 Final Observation Date Value Abnormality Reference (Units ) Status Ferritin 03/02/2023 08:41:23 288 30-400 (ng /mL) Final Performing Location [facility] - [address] [place] [address]
--- OUTSIDE RECORDS SUMMARY | 2023-08-26 18:21 | External Medical Summary ---
Author Name Unknown Address Unknown Organization K01:[facility] [place] [address] [place] [address] Laboratory Report Ordering Provider Test Date Status ROOSEVELT METZGER 03/02/2023 08:41:23 Final Observation Date Value Abnormality Reference (Units ) Status HbA1C 03/02/2023 08:41:23 5.3 4.0-5.6 (% ) Final The use of HbA1c to monitor glycemic status is based on normal hemoglobin and HbA composition. This test should not be used in patients with abnormal hemoglobin that affects the half life of the red blood cell or the in vivo glycation rates. Glucose, estimated average 03/02/2023 08:41:23 105 <126 (mg/dL) Final Performing Location [facility] [place] [address] [place] [address]
--- OUTSIDE RECORDS SUMMARY | 2023-08-26 18:21 | External Medical Summary ---
Author Name Unknown Address Unknown Organization K01:[facility] [address] [place] [address] Laboratory Report Ordering Provider Test Date Status BARBARA BISHOP 03/02/2023 08:41:23 Final Observation Date Value Abnormality Reference (Units ) Status Folic Acid 03/02/2023 08:41:23 9.3 >4.5 (ng/ mL) Final Performing Location [facility] - [address] [place] [address]
[2023-08-26] MEDS: MELATONIN 3 MG TAB PO PRN (20:56)
[2023-08-26] MEDS: MoRPHine SULFATE IR 15 MG TAB (IMMEDIATE RELEASE) PO PRN (20:56)
[2023-08-26] MEDS: APIXABAN 5 MG TABLET PO SCH (20:58)
[2023-08-26] MEDS: MIRTAZAPINE TAB 15 MG TAB PO SCH (20:58)
[2023-08-26] MEDS ORDERED: LANTUS PER UNIT CHARGE SC SCH (21:00)
[2023-08-27] MEDS: IPRATROPIUM BROMIDE NEB SOLN 0.02% 2.5 ML VIAL INH SCH ×3 (00:29→13:41)
[2023-08-27] MEDS: LEVALBUTEROL HCL 0.63 MG/3 ML NEB NEB SCH ×3 (00:29→13:41)
[2023-08-27] MEDS: MoRPHine SULFATE IR 15 MG TAB (IMMEDIATE RELEASE) PO PRN ×2 (02:54→20:33)
[2023-08-27] MEDS: SODIUM CHLOR 7% 4 ML NEB NEB SCH (07:15)
[2023-08-27] MEDS: INSULIN ASPART PER UNIT CHARGE SC SCH ×4 (08:39→20:32)
[2023-08-27] MEDS: BENZONATATE 100 MG CAPSULE PO SCH ×3 (08:40→20:34)
[2023-08-27] MEDS: DOCUSATE SODIUM/SENNA 50/8.6MG TAB PO SCH (08:41)
[2023-08-27] MEDS: POTASSIUM CHLORIDE CRTAB 20 MEQ TABCR PO SCH (08:41)
[2023-08-27] MEDS: PANTOprazole 40 MG TAB PO SCH (08:42)
[2023-08-27] MEDS: LINACLOTIDE 145 MCG CAPSULE PO SCH (08:42)
[2023-08-27] MEDS: predniSONE 20 MG TAB PO SCH (08:42)
[2023-08-27] MEDS: FUROSEMIDE 20 MG TAB PO SCH (08:42)
[2023-08-27] MEDS: METOPROLOL SUCC 50MG EXT REL TAB PO SCH ×2 (08:43→20:35)
[2023-08-27] MEDS: NovoLIN-N (NPH) PER UNIT CHARGE SQ SCH (08:43)
[2023-08-27] MEDS: GABAPENTIN 300 MG CAP PO SCH ×2 (08:43→20:36)
[2023-08-27] MEDS: ATORVASTATIN 40 MG TAB PO SCH (08:43)
[2023-08-27] MEDS: APIXABAN 5 MG TABLET PO SCH ×2 (08:50→20:34)
[2023-08-27] MEDS: METOPROLOL SUCC 25MG EXT REL TAB PO SCH (08:50)
--- NOTE | 2023-08-27 08:50 | Hospitalist Progress Note ---
Date of Service August 27, 2023 Assessment & Plan (1) Hypoxia: (2) Interstitial lung disease: (3) Ischemic cardiomyopathy: (4) Chronic heart failure with reduced ejection fraction and diastolic dysfunction: Plan: Patient presenting from home with reports of shortness of breath x 2 days. Was at the wound care center and was referred to the ED due to shortness of breath. +Rhino/ Enterovirus infection Hypoxia multifactorial Interstitial lung disease, COPD, suspected TRIP, CHF with reduced EF and diastolic dysfunction H/O recent Pneumonia --CT Chest:Multisegmental multilobar dissipation of bilateral tree-in-bud nod ules within a mid to lower lung zone predominant distribution compatible with an infectious or inflammatory bronchiolitis/pneumonitis. Emphysema with bibasilar fibrotic changes redemonstrated. Linear area of right apical consolidation is suggestive of postinflammatory scarring. Attention on follow-up recommended. No pleural effusion or lymphadenopathy. --BioFire positive for enterovirus --Normal procalcitonin --Echo 06/2023-EF 35 to 40%, diastolic dysfunction --BNP 258 (improved from most recent results) --Repeat CT chest on 08/24/23 suggestive of progressive lower lobe consolidation with mucous plugging -- Sputum cultures pending --Received IV Lasix --Isolation precautions Monitor volume status closely Continue nebs Appreciate pulmonology input Continue Pulmonary hygiene with flutter valve, incentive spirometry, vest therapy Resumed home lasix Poor candidate for bronchoscopy due to comorbidities Appreciate ID input Completed 5-day course of Zosyn Continue on prednisone taper course --for 2 weeks Saturating well on 1-2 L supplemental oxygen currently Will need outpatient [facility] interstitial lung disease clinic follow-up for PFTs, HRCT and possible lung biopsy Wean off of supplemental oxygen as able Continue PT OT--May need rehab placement Left plantar foot wound Follows with wound clinic as outpatient Wound cultures growing Pseudomonas, Enterococcus faecalis No Infection currently as per ID Received Zosyn Continue local wound care Epistaxis Continue Humidification of supplemental oxygen Afrin as needed Monitor CBC and transfuse PRBCs as needed Will consider TXA nebs if uncontrollable, recurrent No recurrence of epistaxis while on IV heparin (5) PAF (paroxysmal atrial fibrillation): Plan: A-fib RVR Continue metoprolol, digoxin Discontinued IV heparin Resumed Eliquis (6) Tachy-noman syndrome: Plan: S/P pacemaker Management as above (7) Pacemaker: Plan: Chronic (8) Diabetic ulcer of left foot: Plan: Present on admission Follows with the wound care center Chronic orthostatic hypotension Continue Metoprolol Monitor BP (9) CAD (coronary artery disease): Plan: s/p CABG Continue statin and beta-annika (10) Type 2 diabetes mellitus: Plan: Hgb A1c 6.9 06/2023 Hold home agents and utilize NovoLog per protocol while hospitalized (11) Multiple myeloma: Plan: Follows with Dr. Garcia Treatment currently on hold DVT Px Eliquis CODE STATUS DNR/DNI Disposition May need rehab placement Admission and Anticipated Discharge Date Admission Date: August 20, 2023 Subjective Patient is seen and examined at bedside Overall feels better since admission however has persistent cough, feels tired and short of breath just going to the bathroom, also - heart - goes to afib in and out Requiring 1-2 L supplemental oxygen to maintain sats Denies any chest pain, nausea, vomiting, abdominal pain Pt not interested in rehab, says at home can help him. Seen by pulmonary med. as outpt in 12/2022 - he does not recall. Will need pulmonary follow up. Review of Systems Review of Systems: All systems reviewed & are unremarkable except as noted in Subjective Physical Exam Physical Exam: General Appearance:Thin, Frail elderly M, in no apparent distress Head: normocephalic, Atraumatic Eyes: normal inspection, EOMI Neck: supple, Trachea midline Respiratory/Chest: Decreased breath sounds, CTA, No accessory muscle use Cardiovascular: S1,S2 +murmur Abdomen/GI:Soft, Non tender, Bowel sounds present Extremities/Musculoskeletal:normal inspection, no edema Neurologic/Psych:AAOX3, grossly no focal neurological deficits Skin: normal color, warm Results & Data Results & Data Vital Signs (Past 12 Hours) Vital Signs Temp Pulse Pulse Resp BP Pulse Ox O2 Del Method 08/27/23 07:52 36.1 C L 92 H 16 97 Nasal Cannula 08/27/23 07:17 63 18 92 Nasal Cannula 08/26/23 23:17 67 08/26/23 21:41 36.4 C L 75 18 111/54 L 92 Nasal Cannula O2 Flow Rate 08/27/23 07:52 2 08/27/23 07:17 1 08/26/23 23:17 08/26/23 21:41 1 Laboratory Results 08/27/23 08/27/23 08/27/23 Range/Units 12:00 09:08 08:11 WBC 4.95 (4.8-10.8) K/ul RBC 3.08 L (4.70-6.10) M/uL Hgb 9.1 L (14.0-18.0) g/dl Hct 28.4 L (42.0-52.0) % MCV 92.2 (80.0-100.0) fL MCH 29.5 (25.0-34.0) pg MCHC 32.0 (32.0-36.0) g/dL RDW Std Deviation 55.6 H (36.4-46.3) fL RDW Coeff of Collin 16.9 H (11.5-14.5) % Plt Count 123 L (130-400) K/uL MPV 11.3 (9.4-12.4) fL Absolute Nucleated RBC 0.04 (0.00-0.12) K/uL Nucleated RBC % (auto) 0.8 % APTT 22.4 (21.0-31.0) Seconds PTT Ratio 0.8 Sodium 141 (136-145) mmol/L Potassium 3.9 (3.5-5.1) mmol/L Chloride 107 (98-107) mmol/L Carbon Dioxide 27 (21-32) mmol/L Anion Gap 7 (3-11) BUN 27 H (6-23) mg/dl Creatinine 1.00 (0.6-1.4) mg/dl Est Cr Clr Drug Dosing 60.0 ml/min Est GFR ( Amer) 83.8 ml/min Est GFR (Non-Af Amer) 72.3 ml/min BUN/Creatinine Ratio 27.0 H (10-20) Glucose 128 H (70-99(Fasting)) mg/dl POC Glucose 171 H 135 H (70-99) mg/dl Calcium 9.0 (8.6-10.3) mg/dl Magnesium 1.9 (1.7-2.4) mg/dl 08/26/23 08/26/23 Range/Units 20:49 16:52 WBC (4.8-10.8) K/ul RBC (4.70-6.10) M/uL Hgb (14.0-18.0) g/dl Hct (42.0-52.0) % MCV (80.0-100.0) fL MCH (25.0-34.0) pg MCHC (32.0-36.0) g/dL RDW Std Deviation (36.4-46.3) fL RDW Coeff of Collin (11.5-14.5) % Plt Count (130-400) K/uL MPV (9.4-12.4) fL Absolute Nucleated RBC (0.00-0.12) K/uL Nucleated RBC % (auto) % APTT (21.0-31.0) Seconds PTT Ratio Sodium (136-145) mmol/L Potassium (3.5-5.1) mmol/L Chloride (98-107) mmol/L Carbon Dioxide (21-32) mmol/L Anion Gap (3-11) BUN (6-23) mg/dl Creatinine (0.6-1.4) mg/dl Est Cr Clr Drug Dosing ml/min Est GFR ( Amer) ml/min Est GFR (Non-Af Amer) ml/min BUN/Creatinine Ratio (10-20) Glucose (70-99(Fasting)) mg/dl POC Glucose 259 H 247 H (70-99) mg/dl Calcium (8.6-10.3) mg/dl Magnesium (1.7-2.4) mg/dl Medications Administered Current Inpatient Medications Acetaminophen (Acetaminophen 325 Mg Tab) 650 mg PO Q4H PRN PRN Reason: Pain or Fever Stop: 09/19/23 15:24 Last Admin: 08/25/23 00:49 Dose: 650 mg Apixaban (Apixaban 5 Mg Tablet) 5 mg PO BID RIVERA Stop: 09/19/23 20:59 Last Admin: 08/26/23 20:58 Dose: 5 mg Atorvastatin Calcium (Atorvastatin 40 Mg Tab) 40 mg PO DAILY [facility] Stop: 09/20/23 08:59 Last Admin: 08/27/23 08:43 Dose: 40 mg Benzonatate (Benzonatate 100 Mg Capsule) 100 mg PO TID RIVERA Stop: 09/22/23 08:59 Last Admin: 08/27/23 08:40 Dose: 100 mg Dextrose (Dextrose 50% 50 Ml Syringe) 25 - 50 ml IV UD PRN; Protocol PRN Reason: Hypoglycemia Protocol Stop: 09/19/23 15:24 Digoxin (Digoxin 0.125 Mg Tab) 0.125 mg PO Q2D@1600 [facility] Stop: 09/20/23 15:59 Last Admin: 08/25/23 15:26 Dose: 0.125 mg Furosemide (Furosemide 20 Mg Tab) 20 mg PO MoWeFr@0900 [facility] Stop: 09/22/23 08:59 Last Admin: 08/27/23 08:42 Dose: 20 mg Gabapentin (Gabapentin 300 Mg Cap) 300 mg PO BID [facility] Stop: 09/19/23 20:59 Last Admin: 08/27/23 08:43 Dose: 300 mg Glucagon (Glucagon For Inj 1 Mg Vial) 1 mg SQ UD PRN; Protocol PRN Reason: Hypoglycemia Protocol Stop: 09/19/23 15:24 Glucose (Glucose 10 Tab/Tube) 4 - 8 tab PO UD PRN; Protocol PRN Reason: Hypoglycemia Treatment Stop: 09/19/23 15:24 Glucose (Glucose 40% Gel 15 Gm Tube) 15 - 30 gm PO UD PRN; Protocol PRN Reason: Hypoglycemia Protocol Stop: 09/19/23 15:24 Guaifenesin/Dextromethorphan (Guaifenesin/Dextrom Syrup 200mg/20mg 10ml Udc) 10 ml PO Q6H PRN PRN Reason: Cough Stop: 09/22/23 17:18 Last Admin: 08/26/23 15:32 Dose: 10 ml Insulin Aspart (Insulin Aspart Per Unit Charge) 0 units SC ACHS [facility] Stop: 09/24/23 16:29 Last Admin: 08/27/23 08:39 Dose: 19 units Insulin Glargine (Lantus Per Unit Charge) 0 units SC HS [facility]; Protocol Stop: 09/25/23 20:59 Last Admin: 08/26/23 20:59 Dose: 45 units Insulin Human NPH (Novolin-N (Nph) Per Unit Charge) 25 units SQ DAILY [facility] Stop: 09/24/23 08:59 Last Admin: 08/27/23 08:43 Dose: 25 units Ipratropium [place] (Ipratropium [place] Neb Soln 0.02% 2.5 Ml Vial) 0.5 mg INH Q6R [facility] Stop: 09/20/23 12:59 Last Admin: 08/27/23 07:16 Dose: 0.5 mg Levalbuterol HCl (Levalbuterol Hcl 0.63 Mg/3 Ml Neb) 0.63 mg NEB Q6R [facility] Stop: 09/20/23 13:44 Last Admin: 08/27/23 07:16 Dose: 0.63 mg Linaclotide (Linaclotide 145 Mcg Capsule) 145 mcg PO DAILY [facility] Stop: 09/20/23 08:59 Last Admin: 08/27/23 08:42 Dose: 145 mcg Melatonin (Melatonin 3 Mg Tab) 3 mg PO HS PRN PRN Reason: Sleep Stop: 09/19/23 20:11 Last Admin: 08/26/23 20:56 Dose: 3 mg Metoprolol Succinate (Metoprolol Succ 25mg Ext Rel Tab) 25 mg PO DAILY [facility] Stop: 09/22/23 08:59 Last Admin: 08/26/23 09:14 Dose: 25 mg Metoprolol Succinate (Metoprolol Succ 50mg Ext Rel Tab) 50 mg PO BID [facility] Stop: 09/23/23 09:14 Last Admin: 08/27/23 08:43 Dose: 50 mg Metoprolol Tartrate (Metoprolol Tartrate 1 Mg/Ml Vial) 2.5 mg IV Q6 PRN PRN Reason: Tachycardia HR>110 Stop: 09/23/23 11:59 Mirtazapine (Mirtazapine Tab 15 Mg Tab) 30 mg PO HS [facility] Stop: 09/19/23 20:59 Last Admin: 08/26/23 20:58 Dose: 30 mg Miscellaneous (Carbohydrates For Hypoglycemia ) 15 - 30 gm PO UD PRN PRN Reason: Hypoglycemia Protocol Stop: 09/19/23 15:24 Miscellaneous Information (Pharmacy Glycemic Mgmt Consult) 1 each N/A UD PRN; Protocol PRN Reason: Consult Stop: 09/23/23 17:37 Morphine Sulfate (Morphine Sulfate Ir 15 Mg Tab (Immediate Release)) 15 mg PO Q4H PRN PRN Reason: Moderate-Severe Pain Stop: 09/03/23 15:24 Last Admin: 08/27/23 02:54 Dose: 15 mg Ondansetron HCl (Ondansetron Inj 2 Mg/Ml 2 Ml Vial) 4 mg IV Q6H PRN PRN Reason: Nausea And Vomiting Stop: 09/20/23 13:44 Oxymetazoline HCl (Oxymetazoline 0.05% 30 Ml Btl) 1 sprays NA Q8H PRN PRN Reason: Epistaxis Stop: 09/22/23 08:01 Pantoprazole Sodium (Pantoprazole 40 Mg Tab) 40 mg PO QAM [facility] Stop: 09/20/23 08:59 Last Admin: 08/27/23 08:42 Dose: 40 mg Polyethylene Glycol (Polyethylene (Miralax) 17 Gm Pack) 17 gm PO DAILY PRN PRN Reason: constipation Stop: 09/19/23 15:24 Potassium Chloride (Potassium Chloride Crtab 20 Meq Tabcr) 20 meq PO DAILY [facility] Stop: 09/22/23 08:59 Last Admin: 08/27/23 08:41 Dose: 20 meq Prednisone (Prednisone 20 Mg Tab) 40 mg PO DAILY [facility] Stop: 09/24/23 08:59 Last Admin: 08/27/23 08:42 Dose: 40 mg Senna/Docusate Sodium (Docusate Sodium/Senna 50/8.6mg Tab) 1 tab PO QAM [facility] Stop: 09/21/23 19:44 Last Admin: 08/27/23 08:41 Dose: 1 tab Sodium Chloride (Sodium Chlor 7% 4 Ml Neb) 4 ml NEB BIDR [facility] Stop: 09/19/23 18:59 Last Admin: 08/27/23 07:15 Dose: 4 ml
[2023-08-27 09:30] LABS: Hematocrit (blood only) 28.4 % (42.0-52.0); Hemoglobin 9.1 g/dl (14.0-18.0); Mean Corpuscular Hemoglobin 29.5 pg (25.0-34.0); Mean Corpuscular Volume 92.2 fL (80.0-100.0); Mean Platelet Volume 11.3 fL (9.4-12.4); Nucleated RBC # (auto) 0.04 K/uL (0.00-0.12); Nucleated RBC % (auto) 0.8 %; Platelet Count 123 K/uL (130-400); RDW Coefficient of Variation 16.9 % (11.5-14.5); RDW Standard Deviation 55.6 fL (36.4-46.3); Red Blood Count 3.08 M/uL (4.70-6.10); White Blood Count 4.95 K/ul (4.8-10.8)
[2023-08-27] MEDS ORDERED: INSULIN HUMAN NPH SQ SCH ×2 (09:31→10:00)
[2023-08-27 09:47] LABS: Est GFR (African American) 83.8 ml/min; Est GFR (Non-African American) 72.3 ml/min; Magnesium 1.9 mg/dl (1.7-2.4); Potassium 3.9 mmol/L (3.5-5.1)
[2023-08-27 10:12] LABS: Partial Thromboplastin Ratio 0.8; Partial Thromboplastin Time 22.4 Seconds (21.0-31.0)
--- NOTE | 2023-08-27 11:29 | Pharmacy Report ---
Pharmacy Glycemic Short Note 2 - Date of Service August 27, 2023 - Glycemic Short BSG Results (Last 24 hours): 08/26/23 08/26/23 08/26/23 12:49 16:52 20:49 Glucose POC Glucose 230 H 247 H 259 H 08/27/23 08/27/23 08:11 09:08 Glucose 128 H POC Glucose 135 H OUTPATIENT ANTIDIABETIC REGIMEN: * Lantus 45 units SC QPM * Novolog 15 units SC TIDM * Victoza 1.2 mg SC daily * HbA1c 6.9% (07/07/23) ASSESSMENT: 08/27 * Dev received 156 units of insulin yesterday of which 70 were basal (45 units Lantus and 25 units NPH to cover prednisone) * Fasting BSG this AM within goal range, continue with current basal regimen, allow for 25% decrease in Lantus at bedtime if BSGs at or below goal. * BSGs trended up yesterday, tightened Novolog parameters 08/26 * Drip transition yesterday was successfull. A total of 45 units of Lantus was administered (15 units x3 doses), which is the same as his nightly dose outpatient. NPH added to help cover prednisone-induced prandial elevations * Will continue NPH for now since prednisone is continuing * Will scale Lantus this evening based on BSG, up to home dose of 45 units * Difficult to assess Novolog regimen at this time due to concurrent drip yest erd. No changes for now 08/25 * Dev is a 78 YOM admitted with hypoxia on 08/20 with a history of T2DM. Pharmacy has been consulted for glycemic management and is familiar to the service from recent admissions. Last evening, Dev experienced significant hyperglycemia likely due to basal deficiency (Lantus was held since admission) and addition of prednisone to medication regimen and was subsequently started on an insulin drip. BSGs trended down slowly overnight into the 200s this AM. * Discussed case with roby Estrada to transition of the insulin drip this AM. Insulin NPH (0.4 units/kg) given to cover prednisone. Previous admissions, Dev's basal requirement was around 30 units daily. Will administer half of the basal requirement this AM and allow for within 15% of previous admission requirements based on evening BSGs. Plan to move Lantus to PM and continue NPH with prednisone in AM. * Novolog initiated at previously effective parameters, may need to be tightened based on prednisone and NPH response. PLAN FOR INPATIENT GLYCEMIC CONTROL: * Hold outpatient diabetes medications * Basal insulin * Lantus 35-45 units SC this PM (see eMAR for additional details) * Insulin NPH 25 units SC QAM with prednisone * Bolus insulin * NovoLog per scale ACHS or Q6hrs while NPO * Goal Range: Low 110 mg/dL - High 140 mg/dL * Correction Factor: 10 mg/dL/unit * Nutritional / Prandial insulin per carb ratio of 1 unit per 2.5 grams CHO consumed
[2023-08-27] MEDS: guaiFENesin/DEXTROM SYRUP 200MG/20MG 10ML UDC PO PRN (13:08)
[2023-08-27] MEDS ORDERED: IPRATROPIUM BROMIDE NEB SOLN 0.02% 2.5 ML VIAL INH PRN (13:15)
[2023-08-27] MEDS ORDERED: LEVALBUTEROL HCL 0.63 MG/3 ML NEB NEB PRN (13:16)
[2023-08-27] MEDS: DIGOXIN 0.125 MG TAB PO SCH (14:40)
[2023-08-27] MEDS: LANTUS PER UNIT CHARGE SC SCH (20:31)
[2023-08-27] MEDS: MELATONIN 3 MG TAB PO PRN (20:33)
[2023-08-27] MEDS: MIRTAZAPINE TAB 15 MG TAB PO SCH (20:35)
[2023-08-28] MEDS: POTASSIUM CHLORIDE CRTAB 20 MEQ TABCR PO SCH (08:36)
[2023-08-28] MEDS: DOCUSATE SODIUM/SENNA 50/8.6MG TAB PO SCH (08:38)
[2023-08-28] MEDS: BENZONATATE 100 MG CAPSULE PO SCH ×3 (08:38→20:08)
[2023-08-28] MEDS: predniSONE 20 MG TAB PO SCH (08:39)
[2023-08-28] MEDS: METOPROLOL SUCC 50MG EXT REL TAB PO SCH ×2 (08:39→20:09)
[2023-08-28] MEDS: ATORVASTATIN 40 MG TAB PO SCH (08:39)
[2023-08-28] MEDS: METOPROLOL SUCC 25MG EXT REL TAB PO SCH (08:39)
[2023-08-28] MEDS: LINACLOTIDE 145 MCG CAPSULE PO SCH (08:40)
[2023-08-28] MEDS: PANTOprazole 40 MG TAB PO SCH (08:40)
[2023-08-28] MEDS: APIXABAN 5 MG TABLET PO SCH ×2 (08:40→20:09)
--- NOTE | 2023-08-28 08:41 | Hospitalist Progress Note ---
Date of Service August 28, 2023 Assessment & Plan (1) Hypoxia: (2) Interstitial lung disease: (3) Ischemic cardiomyopathy: (4) Chronic heart failure with reduced ejection fraction and diastolic dysfunction: Plan: Patient presenting from home with reports of shortness of breath x 2 days. Was at the wound care center and was referred to the ED due to shortness of breath. +Rhino/ Enterovirus infection Hypoxia multifactorial Interstitial lung disease, COPD, suspected TRIP, CHF with reduced EF and diastolic dysfunction H/O recent Pneumonia --CT Chest:Multisegmental multilobar dissipation of bilateral tree-in-bud nod ules within a mid to lower lung zone predominant distribution compatible with an infectious or inflammatory bronchiolitis/pneumonitis. Emphysema with bibasilar fibrotic changes redemonstrated. Linear area of right apical consolidation is suggestive of postinflammatory scarring. Attention on follow-up recommended. No pleural effusion or lymphadenopathy. --BioFire positive for enterovirus --Normal procalcitonin --Echo 06/2023-EF 35 to 40%, diastolic dysfunction --BNP 258 (improved from most recent results) --Repeat CT chest on 08/24/23 suggestive of progressive lower lobe consolidation with mucous plugging -- Sputum cultures pending --Received IV Lasix --Isolation precautions Monitor volume status closely Continue nebs Appreciate pulmonology input Continue Pulmonary hygiene with flutter valve, incentive spirometry, vest therapy Resumed home lasix Poor candidate for bronchoscopy due to comorbidities Appreciate ID input Completed 5-day course of Zosyn Continue on prednisone taper course --for 2 weeks . Started on prednisone 40 mg daily -> will decrease to 30 mg daily Saturating well on 1-2 L supplemental oxygen currently Will need outpatient [facility] interstitial lung disease clinic follow-up for PFTs, HRCT and possible lung biopsy Wean off of supplemental oxygen as able Continue PT OT--May need rehab placement Left plantar foot wound Follows with wound clinic as outpatient Wound cultures growing Pseudomonas, Enterococcus faecalis No Infection currently as per ID Received Zosyn Continue local wound care Epistaxis Continue Humidification of supplemental oxygen Afrin as needed Monitor CBC and transfuse PRBCs as needed Will consider TXA nebs if uncontrollable, recurrent No recurrence of epistaxis while on IV heparin or eliquis (5) PAF (paroxysmal atrial fibrillation): Plan: A-fib RVR Continue metoprolol, digoxin Discontinued IV heparin Resumed Eliquis (6) Tachy-noman syndrome: Plan: S/P pacemaker Management as above (7) Pacemaker: Plan: Chronic (8) Diabetic ulcer of left foot: Plan: Present on admission Follows with the wound care center Chronic orthostatic hypotension Continue Metoprolol Monitor BP (9) CAD (coronary artery disease): Plan: s/p CABG Continue statin and beta-annika (10) Type 2 diabetes mellitus: Plan: Hgb A1c 6.9 06/2023 Hold home agents and utilize NovoLog per protocol while hospitalized (11) Multiple myeloma: Plan: Follows with Dr. Garcia Treatment currently on hold DVT Px Eliquis CODE STATUS DNR/DNI Disposition May need rehab placement Admission and Anticipated Discharge Date Admission Date: August 20, 2023 Subjective Patient is seen and examined at bedside Overall feels better since admission however has persistent cough (does not feel cough got much better), feels tired and short of breath just going to the bathroom, also - heart goes to afib in and out Requiring 1-2 L supplemental oxygen Denies any chest pain, nausea, vomiting, abdominal pain Pt not interested in rehab, says at home can help him. Seen by pulmonary med. as outpt in 12/2022 - he does not recall. Will need pulmonary follow up. Review of Systems Review of Systems: All systems reviewed & are unremarkable except as noted in Subjective Physical Exam Physical Exam: General Appearance:Thin, Frail elderly M, in no apparent distress Head: normocephalic, Atraumatic Eyes: normal inspection, EOMI Neck: supple, Trachea midline Respiratory/Chest: Decreased breath sounds, CTA, No accessory muscle use, + cough Cardiovascular: S1,S2 +murmur Abdomen/GI:Soft, Non tender, Bowel sounds present Extremities/Musculoskeletal:normal inspection, no edema Neurologic/Psych:AAOX3, grossly no focal neurological deficits Skin: normal color, warm Results & Data Results & Data Vital Signs (Past 12 Hours) Vital Signs Temp Pulse Pulse Resp BP BP Pulse Ox 08/28/23 07:52 36.4 C L 64 16 116/59 L 96 08/27/23 23:46 62 08/27/23 22:00 36.4 C L 68 18 123/54 L 95 08/27/23 20:42 O2 Del Method O2 Flow Rate 08/28/23 07:52 Nasal Cannula 2 08/27/23 23:46 11/10/23 22:00 Nasal Cannula 2 08/27/23 20:42 Nasal Cannula 2 Laboratory Results 08/27/23 08/27/23 08/27/23 Range/Units 20:13 17:05 12:00 WBC (4.8-10.8) K/ul RBC (4.70-6.10) M/uL Hgb (14.0-18.0) g/dl Hct (42.0-52.0) % MCV (80.0-100.0) fL MCH (25.0-34.0) pg MCHC (32.0-36.0) g/dL RDW Std Deviation (36.4-46.3) fL RDW Coeff of Collin (11.5-14.5) % Plt Count (130-400) K/uL MPV (9.4-12.4) fL Absolute Nucleated RBC (0.00-0.12) K/uL Nucleated RBC % (auto) % APTT (21.0-31.0) Seconds PTT Ratio Sodium (136-145) mmol/L Potassium (3.5-5.1) mmol/L Chloride (98-107) mmol/L Carbon Dioxide (21-32) mmol/L Anion Gap (3-11) BUN (6-23) mg/dl Creatinine (0.6-1.4) mg/dl Est Cr Clr Drug Dosing ml/min Est GFR ( Amer) ml/min Est GFR (Non-Af Amer) ml/min BUN/Creatinine Ratio (10-20) Glucose (70-99(Fasting)) mg/dl POC Glucose 175 H 161 H 171 H (70-99) mg/dl Calcium (8.6-10.3) mg/dl Magnesium (1.7-2.4) mg/dl 08/27/23 Range/Units 09:08 WBC 4.95 (4.8-10.8) K/ul RBC 3.08 L (4.70-6.10) M/uL Hgb 9.1 L (14.0-18.0) g/dl Hct 28.4 L (42.0-52.0) % MCV 92.2 (80.0-100.0) fL MCH 29.5 (25.0-34.0) pg MCHC 32.0 (32.0-36.0) g/dL RDW Std Deviation 55.6 H (36.4-46.3) fL RDW Coeff of Collin 16.9 H (11.5-14.5) % Plt Count 123 L (130-400) K/uL MPV 11.3 (9.4-12.4) fL Absolute Nucleated RBC 0.04 (0.00-0.12) K/uL Nucleated RBC % (auto) 0.8 % APTT 22.4 (21.0-31.0) Seconds PTT Ratio 0.8 Sodium 141 (136-145) mmol/L Potassium 3.9 (3.5-5.1) mmol/L Chloride 107 (98-107) mmol/L Carbon Dioxide 27 (21-32) mmol/L Anion Gap 7 (3-11) BUN 27 H (6-23) mg/dl Creatinine 1.00 (0.6-1.4) mg/dl Est Cr Clr Drug Dosing 60.0 ml/min Est GFR ( Amer) 83.8 ml/min Est GFR (Non-Af Amer) 72.3 ml/min BUN/Creatinine Ratio 27.0 H (10-20) Glucose 128 H (70-99(Fasting)) mg/dl POC Glucose (70-99) mg/dl Calcium 9.0 (8.6-10.3) mg/dl Magnesium 1.9 (1.7-2.4) mg/dl Medications Administered Current Inpatient Medications Acetaminophen (Acetaminophen 325 Mg Tab) 650 mg PO Q4H PRN PRN Reason: Pain or Fever Stop: 09/19/23 15:24 Last Admin: 08/25/23 00:49 Dose: 650 mg Apixaban (Apixaban 5 Mg Tablet) 5 mg PO BID [facility]A Stop: 09/19/23 20:59 Last Admin: 08/27/23 20:34 Dose: 5 mg Atorvastatin Calcium (Atorvastatin 40 Mg Tab) 40 mg PO DAILY [facility]A Stop: 09/20/23 08:59 Last Admin: 08/27/23 08:43 Dose: 40 mg Benzonatate (Benzonatate 100 Mg Capsule) 100 mg PO TID [facility]IVERA Stop: 09/22/23 08:59 Last Admin: 08/27/23 20:34 Dose: 100 mg Dextrose (Dextrose 50% 50 Ml Syringe) 25 - 50 ml IV UD PRN; Protocol PRN Reason: Hypoglycemia Protocol Stop: 09/19/23 15:24 Digoxin (Digoxin 0.125 Mg Tab) 0.125 mg PO Q2D@1600 [facility] Stop: 09/20/23 15:59 Last Admin: 08/27/23 14:40 Dose: 0.125 mg Furosemide (Furosemide 20 Mg Tab) 20 mg PO MoWeFr@0900 [facility] Stop: 09/22/23 08:59 Last Admin: 08/27/23 08:42 Dose: 20 mg Gabapentin (Gabapentin 300 Mg Cap) 300 mg PO BID [facility] Stop: 09/19/23 20:59 Last Admin: 08/27/23 20:36 Dose: 300 mg Glucagon (Glucagon For Inj 1 Mg Vial) 1 mg SQ UD PRN; Protocol PRN Reason: Hypoglycemia Protocol Stop: 09/19/23 15:24 Glucose (Glucose 10 Tab/Tube) 4 - 8 tab PO UD PRN; Protocol PRN Reason: Hypoglycemia Treatment Stop: 09/19/23 15:24 Glucose (Glucose 40% Gel 15 Gm Tube) 15 - 30 gm PO UD PRN; Protocol PRN Reason: Hypoglycemia Protocol Stop: 09/19/23 15:24 Guaifenesin/Dextromethorphan (Guaifenesin/Dextrom Syrup 200mg/20mg 10ml Udc) 10 ml PO Q6H PRN PRN Reason: Cough Stop: 09/22/23 17:18 Last Admin: 08/27/23 13:08 Dose: 10 ml Insulin Aspart (Insulin Aspart Per Unit Charge) 0 units SC ACHS [facility] Stop: 09/24/23 16:29 Last Admin: 08/27/23 20:32 Dose: 4 units Insulin Glargine (Lantus Per Unit Charge) 0 units SC HS [facility]; Protocol Stop: 09/26/23 20:59 Last Admin: 08/27/23 20:31 Dose: 35 units Insulin Human NPH (Insulin Human Nph) 25 units SQ DAILY [facility] Stop: 09/27/23 08:59 Ipratropium Hercules (Ipratropium Hercules Neb Soln 0.02% 2.5 Ml Vial) 0.5 mg INH Q6R PRN PRN Reason: Shortness Of Breath Or Wheezing Stop: 09/20/23 12:59 Levalbuterol HCl (Levalbuterol Hcl 0.63 Mg/3 Ml Neb) 0.63 mg NEB Q6R PRN PRN Reason: Shortness Of Breath Or Wheezing Stop: 09/20/23 13:44 Linaclotide (Linaclotide 145 Mcg Capsule) 145 mcg PO DAILY [facility] Stop: 09/20/23 08:59 Last Admin: 08/27/23 08:42 Dose: 145 mcg Melatonin (Melatonin 3 Mg Tab) 3 mg PO HS PRN PRN Reason: Sleep Stop: 09/19/23 20:11 Last Admin: 08/27/23 20:33 Dose: 3 mg Metoprolol Succinate (Metoprolol Succ 25mg Ext Rel Tab) 25 mg PO DAILY [facility] Stop: 09/22/23 08:59 Last Admin: 08/27/23 08:50 Dose: 25 mg Metoprolol Succinate (Metoprolol Succ 50mg Ext Rel Tab) 50 mg PO BID [facility] Stop: 09/23/23 09:14 Last Admin: 08/27/23 20:35 Dose: 50 mg Metoprolol Tartrate (Metoprolol Tartrate 1 Mg/Ml Vial) 2.5 mg IV Q6 PRN PRN Reason: Tachycardia HR>110 Stop: 09/23/23 11:59 Mirtazapine (Mirtazapine Tab 15 Mg Tab) 30 mg PO HS [facility] Stop: 09/19/23 20:59 Last Admin: 08/27/23 20:35 Dose: 30 mg Miscellaneous (Carbohydrates For Hypoglycemia ) 15 - 30 gm PO UD PRN PRN Reason: Hypoglycemia Protocol Stop: 09/19/23 15:24 Miscellaneous Information (Pharmacy Glycemic Mgmt Consult) 1 each N/A UD PRN; Protocol PRN Reason: Consult Stop: 09/23/23 17:37 Morphine Sulfate (Morphine Sulfate Ir 15 Mg Tab (Immediate Release)) 15 mg PO Q4H PRN PRN Reason: Moderate-Severe Pain Stop: 09/03/23 15:24 Last Admin: 08/27/23 20:33 Dose: 15 mg Ondansetron HCl (Ondansetron Inj 2 Mg/Ml 2 Ml Vial) 4 mg IV Q6H PRN PRN Reason: Nausea And Vomiting Stop: 09/20/23 13:44 Oxymetazoline HCl (Oxymetazoline 0.05% 30 Ml Btl) 1 sprays NA Q8H PRN PRN Reason: Epistaxis Stop: 09/22/23 08:01 Pantoprazole Sodium (Pantoprazole 40 Mg Tab) 40 mg PO QAM [facility] Stop: 09/20/23 08:59 Last Admin: 08/27/23 08:42 Dose: 40 mg Polyethylene Glycol (Polyethylene (Miralax) 17 Gm Pack) 17 gm PO DAILY PRN PRN Reason: constipation Stop: 09/19/23 15:24 Potassium Chloride (Potassium Chloride Crtab 20 Meq Tabcr) 20 meq PO DAILY [facility] Stop: 09/22/23 08:59 Last Admin: 08/27/23 08:41 Dose: 20 meq Prednisone (Prednisone 20 Mg Tab) 40 mg PO DAILY [facility] Stop: 09/24/23 08:59 Last Admin: 08/27/23 08:42 Dose: 40 mg Senna/Docusate Sodium (Docusate Sodium/Senna 50/8.6mg Tab) 1 tab PO QAM [facility] Stop: 09/21/23 19:44 Last Admin: 08/27/23 08:41 Dose: 1 tab
[2023-08-28] MEDS: INSULIN ASPART PER UNIT CHARGE SC SCH ×4 (08:50→20:03)
[2023-08-28] MEDS: INSULIN HUMAN NPH SQ SCH (08:58)
[2023-08-28] MEDS ORDERED: INSULIN HUMAN NPH SQ SCH (09:00)
[2023-08-28] MEDS: GABAPENTIN 300 MG CAP PO SCH ×2 (09:13→20:08)
[2023-08-28] MEDS: guaiFENesin/DEXTROM SYRUP 200MG/20MG 10ML UDC PO PRN ×3 (09:13→20:08)
[2023-08-28 13:00] LABS: Hematocrit (blood only) 31.1 % (42.0-52.0); Mean Corpuscular Hemoglobin 29.9 pg (25.0-34.0); Mean Corpuscular Hgb Conc 32.2 g/dL (32.0-36.0); Mean Corpuscular Volume 92.8 fL (80.0-100.0); Mean Platelet Volume 11.1 fL (9.4-12.4); Nucleated RBC % (auto) 1.3 %; Platelet Count 131 K/uL (130-400); RDW Standard Deviation 55.2 fL (36.4-46.3); Red Blood Count 3.35 M/uL (4.70-6.10); White Blood Count 7.97 K/ul (4.8-10.8)
[2023-08-28 13:11] LABS: BUN Creatinine Ratio 34.3 (10-20); Calcium 9.5 mg/dl (8.6-10.3); Creatinine Clr Calc Pharmacy 61.6 ml/min; Est GFR (African American) 84.8 ml/min; Est GFR (Non-African American) 73.2 ml/min; Potassium 3.5 mmol/L (3.5-5.1)
[2023-08-28 13:25] LABS: Basophils # (auto) 0.02 K/uL (0.00-0.20); Basophils % (auto) 0.3 %; Eosinophils # (auto) 0.04 K/uL (0.00-0.50); Eosinophils % (auto) 0.5 %; Immature Granulocytes # (auto) 0.42 K/uL (0.01-0.20); Immature Granulocytes % (auto) 5.3 %; Lymphocytes % (auto) 8.8 %; Monocytes # (auto) 0.77 K/uL (0.11-0.59); Monocytes % (auto) 9.7 %; Neutrophils # (auto) 6.02 K/uL (1.40-6.50); Neutrophils % (auto) 75.4 %; Polychromasia 1+; Tear Drop Cells 2+
[2023-08-28 13:29] LABS: Partial Thromboplastin Ratio 0.9; Partial Thromboplastin Time 24.2 Seconds (21.0-31.0)
[2023-08-28] MEDS ORDERED: POTASSIUM CHLORIDE CRTAB 20 MEQ TABCR PO STA (13:36)
[2023-08-28 13:56] LABS: Magnesium 1.9 mg/dl (1.7-2.4)
[2023-08-28] MEDS: ADVANCED PROBIOTIC 1250 MG CAPSULE PO SCH (14:49)
[2023-08-28] MEDS: LANTUS PER UNIT CHARGE SC SCH (20:06)
[2023-08-28] MEDS: MIRTAZAPINE TAB 15 MG TAB PO SCH (20:08)
[2023-08-28] MEDS: MELATONIN 3 MG TAB PO PRN (21:31)
[2023-08-28] MEDS: MoRPHine SULFATE IR 15 MG TAB (IMMEDIATE RELEASE) PO PRN (21:31)
[2023-08-29 07:33] LABS: Hematocrit (blood only) 28.8 % (42.0-52.0); Hemoglobin 9.3 g/dl (14.0-18.0); Mean Corpuscular Hemoglobin 29.7 pg (25.0-34.0); Mean Corpuscular Hgb Conc 32.3 g/dL (32.0-36.0); Mean Platelet Volume 10.5 fL (9.4-12.4); Nucleated RBC # (auto) 0.06 K/uL (0.00-0.12); Nucleated RBC % (auto) 1.1 %; Platelet Count 105 K/uL (130-400); RDW Standard Deviation 54.2 fL (36.4-46.3); Red Blood Count 3.13 M/uL (4.70-6.10); White Blood Count 5.71 K/ul (4.8-10.8)
[2023-08-29 07:54] LABS: BUN Creatinine Ratio 38.1 (10-20); Calcium 9.5 mg/dl (8.6-10.3); Creatinine Clr Calc Pharmacy 62.9 ml/min; Est GFR (African American) 86.9 ml/min; Phosphorus 4.6 mg/dl (2.5-4.9); Potassium 4.1 mmol/L (3.5-5.1)
[2023-08-29 07:59] LABS: Partial Thromboplastin Ratio 0.8; Partial Thromboplastin Time 23.4 Seconds (21.0-31.0)
[2023-08-29] MEDS: METOPROLOL SUCC 50MG EXT REL TAB PO SCH ×2 (08:32→21:43)
[2023-08-29] MEDS: BENZONATATE 100 MG CAPSULE PO SCH ×3 (08:32→21:44)
[2023-08-29] MEDS: POTASSIUM CHLORIDE CRTAB 20 MEQ TABCR PO SCH (08:32)
[2023-08-29] MEDS: APIXABAN 5 MG TABLET PO SCH ×2 (08:32→21:44)
[2023-08-29] MEDS: METOPROLOL SUCC 25MG EXT REL TAB PO SCH (08:33)
[2023-08-29] MEDS: GABAPENTIN 300 MG CAP PO SCH ×2 (08:33→21:42)
[2023-08-29] MEDS: predniSONE 10 MG TABLET PO SCH (08:34)
[2023-08-29] MEDS: ATORVASTATIN 40 MG TAB PO SCH (08:41)
[2023-08-29] MEDS: LINACLOTIDE 145 MCG CAPSULE PO SCH (08:41)
[2023-08-29] MEDS: ADVANCED PROBIOTIC 1250 MG CAPSULE PO SCH (08:41)
[2023-08-29] MEDS: DOCUSATE SODIUM/SENNA 50/8.6MG TAB PO SCH (08:42)
[2023-08-29] MEDS: PANTOprazole 40 MG TAB PO SCH (08:46)
[2023-08-29] MEDS: INSULIN ASPART PER UNIT CHARGE SC SCH ×4 (08:46→21:41)
[2023-08-29] MEDS: INSULIN HUMAN NPH SQ SCH (08:47)
--- NOTE | 2023-08-29 08:57 | Hospitalist Progress Note ---
Date of Service August 29, 2023 Assessment & Plan (1) Hypoxia: (2) Interstitial lung disease: (3) Ischemic cardiomyopathy: (4) Chronic heart failure with reduced ejection fraction and diastolic dysfunction: Plan: Patient presenting from home with reports of shortness of breath x 2 days. Was at the wound care center and was referred to the ED due to shortness of breath. +Rhino/ Enterovirus infection Hypoxia multifactorial Interstitial lung disease, COPD, suspected TRIP, CHF with reduced EF and diastolic dysfunction H/O recent Pneumonia --CT Chest:Multisegmental multilobar dissipation of bilateral tree-in-bud nod ules within a mid to lower lung zone predominant distribution compatible with an infectious or inflammatory bronchiolitis/pneumonitis. Emphysema with bibasilar fibrotic changes redemonstrated. Linear area of right apical consolidation is suggestive of postinflammatory scarring. Attention on follow-up recommended. No pleural effusion or lymphadenopathy. --BioFire positive for enterovirus --Normal procalcitonin --Echo 06/2023-EF 35 to 40%, diastolic dysfunction --BNP 258 (improved from most recent results) --Repeat CT chest on 08/24/23 suggestive of progressive lower lobe consolidation with mucous plugging -- Sputum cultures pending --Received IV Lasix --Isolation precautions Monitor volume status closely Continue nebs Appreciate pulmonology input Continue Pulmonary hygiene with flutter valve, incentive spirometry, vest therapy Resumed home lasix Poor candidate for bronchoscopy due to comorbidities Appreciate ID input Completed 5-day course of Zosyn Continue on prednisone taper course --for 2 weeks . Started on prednisone 40 mg daily -> will decrease to 30 mg daily Saturating well on 1-2 L supplemental oxygen currently Will need outpatient [facility] interstitial lung disease clinic follow-up for PFTs, HRCT and possible lung biopsy Wean off of supplemental oxygen as able Continue PT OT--May need rehab placement Left plantar foot wound Follows with wound clinic as outpatient Wound cultures growing Pseudomonas, Enterococcus faecalis No Infection currently as per ID Received Zosyn Continue local wound care Epistaxis Continue Humidification of supplemental oxygen Afrin as needed Monitor CBC and transfuse PRBCs as needed Will consider TXA nebs if uncontrollable, recurrent No recurrence of epistaxis while on IV heparin or eliquis (5) PAF (paroxysmal atrial fibrillation): Plan: A-fib RVR Continue metoprolol, digoxin Discontinued IV heparin Resumed Eliquis NSVT - this AM (08/29/23) pt remained asymptomatic Discussed w/ cardiology - reviewed recent echo and cardiac hx - no changes recommended (for more detail can review last cardiology consult) (6) Tachy-noman syndrome: Plan: S/P pacemaker Management as above (7) Pacemaker: Plan: Chronic (8) Diabetic ulcer of left foot: Plan: Present on admission Follows with the wound care center Chronic orthostatic hypotension Continue Metoprolol Monitor BP (9) CAD (coronary artery disease): Plan: s/p CABG Continue statin and beta-annika (10) Type 2 diabetes mellitus: Plan: Hgb A1c 6.9 06/2023 Hold home agents and utilize NovoLog per protocol while hospitalized (11) Multiple myeloma: Plan: Follows with Dr. Garcia Treatment currently on hold DVT Px Eliquis CODE STATUS DNR/DNI Disposition May need rehab placement Admission and Anticipated Discharge Date Admission Date: August 20, 2023 Subjective Patient is seen and examined at bedside Overall feels better since admission however has persistent cough (does not feel cough got much better), feels tired and short of breath just going to the bathroom, also - heart goes to afib in and out Requiring 1-2 L supplemental oxygen Denies any chest pain, nausea, vomiting, abdominal pain Pt not interested in rehab, says at home can help him. Seen by pulmonary med. as outpt in 12/2022 - he does not recall. Will need pulmonary follow up. This AM had NSVT - when going to bathroom - was completely asymptomatic. Discussed w/ cardiology - reviewed recent echo and cardiac hx - no changes recommended (for more detail can review last cardiology consult) Review of Systems Review of Systems: All systems reviewed & are unremarkable except as noted in Subjective Physical Exam Physical Exam: General Appearance:Thin, Frail elderly M, in no apparent distress Head: normocephalic, Atraumatic Eyes: normal inspection, EOMI Neck: supple, Trachea midline Respiratory/Chest: Decreased breath sounds, CTA, No accessory muscle use, + cough Cardiovascular: S1,S2 +murmur Abdomen/GI:Soft, Non tender, Bowel sounds present Extremities/Musculoskeletal:normal inspection, no edema Neurologic/Psych:AAOX3, grossly no focal neurological deficits Skin: normal color, warm Results & Data Results & Data Vital Signs (Past 12 Hours) Vital Signs Temp Pulse Pulse Resp BP BP Pulse Ox 08/29/23 07:20 36.6 C 60 18 135/57 L 97 08/29/23 06:00 60 08/28/23 23:57 71 08/28/23 23:00 36.2 C L 62 18 134/68 98 08/28/23 22:31 O2 Del Method O2 Flow Rate 08/29/23 07:20 Nasal Cannula 2 08/29/23 06:00 08/28/23 23:57 08/28/23 23:00 Nasal Cannula 2 08/28/23 22:31 Nasal Cannula 2 Laboratory Results 08/29/23 08/29/23 08/28/23 Range/Units 08:16 07:08 19:57 WBC 5.71 (4.8-10.8) K/ul RBC 3.13 L (4.70-6.10) M/uL Hgb 9.3 L (14.0-18.0) g/dl Hct 28.8 L (42.0-52.0) % MCV 92.0 (80.0-100.0) fL MCH 29.7 (25.0-34.0) pg MCHC 32.3 (32.0-36.0) g/dL RDW Std Deviation 54.2 H (36.4-46.3) fL RDW Coeff of Collin 17.0 H (11.5-14.5) % Plt Count 105 L (130-400) K/uL MPV 10.5 (9.4-12.4) fL Immature Gran % (Auto) % Neut % (Auto) % Lymph % (Auto) % Parmer % (Auto) % Eos % (Auto) % Baso % (Auto) % Neut # (Auto) (1.40-6.50) K/uL Lymph # (Auto) (1.20-3.40) K/uL Parmer # (Auto) (0.11-0.59) K/uL Eos # (Auto) (0.00-0.50) K/uL Baso # (Auto) (0.00-0.20) K/uL Immature Gran # (Auto) (0.01-0.20) K/uL Absolute Nucleated RBC 0.06 (0.00-0.12) K/uL Nucleated RBC % (auto) 1.1 % Polychromasia Tear Drop Cells APTT 23.4 (21.0-31.0) Seconds PTT Ratio 0.8 Sodium 142 (136-145) mmol/L Potassium 4.1 (3.5-5.1) mmol/L Chloride 108 H (98-107) mmol/L Carbon Dioxide 28 (21-32) mmol/L Anion Gap 6 (3-11) BUN 37 H (6-23) mg/dl Creatinine 0.97 (0.6-1.4) mg/dl Est Cr Clr Drug Dosing 62.9 ml/min Est GFR ( Amer) 86.9 ml/min Est GFR (Non-Af Amer) 75.0 ml/min BUN/Creatinine Ratio 38.1 H (10-20) Glucose 107 H (70-99(Fasting)) mg/dl POC Glucose 105 H 222 H (70-99) mg/dl Calcium 9.5 (8.6-10.3) mg/dl Phosphorus 4.6 (2.5-4.9) mg/dl Magnesium 2.0 (1.7-2.4) mg/dl 08/28/23 08/28/23 08/28/23 Range/Units 16:56 12:44 12:14 WBC 7.97 (4.8-10.8) K/ul RBC 3.35 L (4.70-6.10) M/uL Hgb 10.0 L (14.0-18.0) g/dl Hct 31.1 L (42.0-52.0) % MCV 92.8 (80.0-100.0) fL MCH 29.9 (25.0-34.0) pg MCHC 32.2 (32.0-36.0) g/dL RDW Std Deviation 55.2 H (36.4-46.3) fL RDW Coeff of Collin 17.0 H (11.5-14.5) % Plt Count 131 (130-400) K/uL MPV 11.1 (9.4-12.4) fL Immature Gran % (Auto) 5.3 % Neut % (Auto) 75.4 % Lymph % (Auto) 8.8 % Parmer % (Auto) 9.7 % Eos % (Auto) 0.5 % Baso % (Auto) 0.3 % Neut # (Auto) 6.02 (1.40-6.50) K/uL Lymph # (Auto) 0.70 L (1.20-3.40) K/uL Parmer # (Auto) 0.77 H (0.11-0.59) K/uL Eos # (Auto) 0.04 (0.00-0.50) K/uL Baso # (Auto) 0.02 (0.00-0.20) K/uL Immature Gran # (Auto) 0.42 H (0.01-0.20) K/uL Absolute Nucleated RBC 0.10 (0.00-0.12) K/uL Nucleated RBC % (auto) 1.3 % Polychromasia 1+ Tear Drop Cells 2+ APTT 24.2 (21.0-31.0) Seconds PTT Ratio 0.9 Sodium 140 (136-145) mmol/L Potassium 3.5 (3.5-5.1) mmol/L Chloride 107 (98-107) mmol/L Carbon Dioxide 25 (21-32) mmol/L Anion Gap 8 (3-11) BUN 34 H (6-23) mg/dl Creatinine 0.99 (0.6-1.4) mg/dl Est Cr Clr Drug Dosing 61.6 ml/min Est GFR ( Amer) 84.8 ml/min Est GFR (Non-Af Amer) 73.2 ml/min BUN/Creatinine Ratio 34.3 H (10-20) Glucose 97 (70-99(Fasting)) mg/dl POC Glucose 221 H 101 H (70-99) mg/dl Calcium 9.5 (8.6-10.3) mg/dl Phosphorus 4.0 (2.5-4.9) mg/dl Magnesium 1.9 (1.7-2.4) mg/dl Medications Administered Current Inpatient Medications Acetaminophen (Acetaminophen 325 Mg Tab) 650 mg PO Q4H PRN PRN Reason: Pain or Fever Stop: 09/19/23 15:24 Last Admin: 08/25/23 00:49 Dose: 650 mg Apixaban (Apixaban 5 Mg Tablet) 5 mg PO BID [facility] Stop: 09/19/23 20:59 Last Admin: 08/29/23 08:32 Dose: 5 mg Atorvastatin Calcium (Atorvastatin 40 Mg Tab) 40 mg PO DAILY [facility] Stop: 09/20/23 08:59 Last Admin: 08/29/23 08:41 Dose: 40 mg Benzonatate (Benzonatate 100 Mg Capsule) [address] [facility] Stop: 09/22/23 08:59 Last Admin: 08/29/23 08:32 Dose: 100 mg Dextrose (Dextrose 50% 50 Ml Syringe) 25 - 50 ml IV UD PRN; Protocol PRN Reason: Hypoglycemia Protocol Stop: 09/19/23 15:24 Digoxin (Digoxin 0.125 Mg Tab) 0.125 mg PO Q2D@1600 [facility] Stop: 09/20/23 15:59 Last Admin: 08/27/23 14:40 Dose: 0.125 mg Furosemide (Furosemide 20 Mg Tab) 20 mg PO MoWeFr@0900 [facility] Stop: 09/22/23 08:59 Last Admin: 08/27/23 08:42 Dose: 20 mg Gabapentin (Gabapentin 300 Mg Cap) [address] [facility] Stop: 09/19/23 20:59 Last Admin: 08/29/23 08:33 Dose: 300 mg Glucagon (Glucagon For Inj 1 Mg Vial) 1 mg SQ UD PRN; Protocol PRN Reason: Hypoglycemia Protocol Stop: 09/19/23 15:24 Glucose (Glucose 10 Tab/Tube) 4 - 8 tab PO UD PRN; Protocol PRN Reason: Hypoglycemia Treatment Stop: 09/19/23 15:24 Glucose (Glucose 40% Gel 15 Gm Tube) 15 - 30 gm PO UD PRN; Protocol PRN Reason: Hypoglycemia Protocol Stop: 09/19/23 15:24 Guaifenesin/Dextromethorphan (Guaifenesin/Dextrom Syrup 200mg/20mg 10ml Udc) 10 ml PO Q6H PRN PRN Reason: Cough Stop: 09/22/23 17:18 Last Admin: 08/28/23 20:08 Dose: 10 ml Insulin Aspart (Insulin Aspart Per Unit Charge) [address] [facility] Stop: 09/24/23 16:29 Last Admin: 08/29/23 08:46 Dose: 20 units Insulin Glargine (Lantus Per Unit Charge) [address] [facility]; Protocol Stop: 09/26/23 20:59 Last Admin: 08/28/23 20:06 Dose: 30 units Insulin Human NPH (Insulin Human Nph) [address] [facility] Stop: 09/27/23 08:59 Last Admin: 08/29/23 08:47 Dose: 20 units Ipratropium Gerton (Ipratropium Gerton Neb Soln 0.02% 2.5 Ml Vial) 0.5 mg INH Q6R PRN PRN Reason: Shortness Of Breath Or Wheezing Stop: 09/20/23 12:59 Lactobacillus Acidophilus (Advanced Probiotic 1250 Mg Capsule) 2 cap PO DAILY [facility] Stop: 09/27/23 13:44 Last Admin: 08/29/23 08:41 Dose: 2 cap Levalbuterol HCl (Levalbuterol Hcl 0.63 Mg/3 Ml Neb) 0.63 mg NEB Q6R PRN PRN Reason: Shortness Of Breath Or Wheezing Stop: 09/20/23 13:44 Linaclotide (Linaclotide 145 Mcg Capsule) 145 mcg PO DAILY [facility] Stop: 09/20/23 08:59 Last Admin: 08/29/23 08:41 Dose: 145 mcg Melatonin (Melatonin 3 Mg Tab) 3 mg PO HS PRN PRN Reason: Sleep Stop: 09/19/23 20:11 Last Admin: 08/28/23 21:31 Dose: 3 mg Metoprolol Succinate (Metoprolol Succ 25mg Ext Rel Tab) 25 mg PO DAILY [facility] Stop: 09/22/23 08:59 Last Admin: 08/29/23 08:33 Dose: 25 mg Metoprolol Succinate (Metoprolol Succ 50mg Ext Rel Tab) 50 mg PO BID [facility] Stop: 09/23/23 09:14 Last Admin: 08/29/23 08:32 Dose: 50 mg Metoprolol Tartrate (Metoprolol Tartrate 1 Mg/Ml Vial) 2.5 mg IV Q6 PRN PRN Reason: Tachycardia HR>110 Stop: 09/23/23 11:59 Mirtazapine (Mirtazapine Tab 15 Mg Tab) 30 mg PO HS [facility] Stop: 09/19/23 20:59 Last Admin: 08/28/23 20:08 Dose: 30 mg Miscellaneous (Carbohydrates For Hypoglycemia ) 15 - 30 gm PO UD PRN PRN Reason: Hypoglycemia Protocol Stop: 09/19/23 15:24 Miscellaneous Information (Pharmacy Glycemic Mgmt Consult) 1 each N/A UD PRN; Protocol PRN Reason: Consult Stop: 09/23/23 17:37 Morphine Sulfate (Morphine Sulfate Ir 15 Mg Tab (Immediate Release)) 15 mg PO Q4H PRN PRN Reason: Moderate-Severe Pain Stop: 09/03/23 15:24 Last Admin: 08/28/23 21:31 Dose: 15 mg Ondansetron HCl (Ondansetron Inj 2 Mg/Ml 2 Ml Vial) 4 mg IV Q6H PRN PRN Reason: Nausea And Vomiting Stop: 09/20/23 13:44 Oxymetazoline HCl (Oxymetazoline 0.05% 30 Ml Btl) 1 sprays NA Q8H PRN PRN Reason: Epistaxis Stop: 09/22/23 08:01 Pantoprazole Sodium (Pantoprazole 40 Mg Tab) [address] [facility] Stop: 09/20/23 08:59 Last Admin: 08/29/23 08:46 Dose: 40 mg Polyethylene Glycol (Polyethylene (Miralax) 17 Gm Pack) 17 gm PO DAILY PRN PRN Reason: constipation Stop: 09/19/23 15:24 Potassium Chloride (Potassium Chloride Crtab 20 Meq Tabcr) [address] [facility] Stop: 09/22/23 08:59 Last Admin: 08/29/23 08:32 Dose: 20 meq Prednisone (Prednisone 10 Mg Tablet) [address] [facility] Stop: 09/28/23 08:59 Last Admin: 08/29/23 08:34 Dose: 30 mg Senna/Docusate Sodium (Docusate Sodium/Senna 50/8.6mg Tab) [address] [facility] Stop: 09/21/23 19:44 Last Admin: 08/29/23 08:42 Dose: 1 tab
--- NOTE | 2023-08-29 11:43 | XRay Report ---
XR chest 1V portable HISTORY: follow up, hypoxia, arrhythmia COMPARISON: Chest 08/21/2023. Chest CT 08/23/2023. FINDINGS: No pneumothorax. No pleural effusions. The heart is normal in size. There are poststernotom y changes and left-sided pacemaker again noted. No evidence for pulmonary edema. Peripheral linear de nsity within the right upper lobe remains unchanged. Reticulonodular interstitial thickening most pro nounced within the lung bases. This has slightly improved and favors an infectious bronchiolitis. IMPRESSION: 1. Slight improvement in the reticulonodular interstitial thickening favoring an infectious bronchiol itis. 2. Linear density within the periphery of the right upper lobe persists. ACT 112: Negative or not required by law. Electronically signed by: Sloan Dang M.D. 08/29/2023 11:42 AM
[2023-08-29] MEDS: DIGOXIN 0.125 MG TAB PO SCH (17:27)
[2023-08-29] MEDS: MoRPHine SULFATE IR 15 MG TAB (IMMEDIATE RELEASE) PO PRN (21:40)
[2023-08-29] MEDS: LANTUS PER UNIT CHARGE SC SCH (21:41)
[2023-08-29] MEDS: MELATONIN 3 MG TAB PO PRN (21:41)
[2023-08-29] MEDS: guaiFENesin/DEXTROM SYRUP 200MG/20MG 10ML UDC PO PRN (21:41)
[2023-08-29] MEDS: MIRTAZAPINE TAB 15 MG TAB PO SCH (21:42)
--- NOTE | 2023-08-30 06:20 | Electrocardiogram Report ---
Test Reason : Blood Pressure : / mmHG Vent. Rate : 061 BPM Atrial Rate : 340 BPM P-R Int : 230 ms QRS Dur : 100 ms QT Int : 458 ms P-R-T Axes : 000 064 074 degrees QTc Int : 461 ms Atrial-paced rhythm with prolonged AV conduction Nonspecific T wave abnormality Abnormal ECG When compared with ECG of 21-AUG-2023 11:08, Electronic atrial pacemaker has replaced Sinus rhythm Vent. rate has decreased BY 32 BPM Non-specific change in ST segment in Anterior leads Confirmed by Jalen Fofana ([id number] on 08/30/2023 6:20:06 AM Referred By: REFERRED SELF Confirmed By:Jalen Fofana
[2023-08-30] MEDS: METOPROLOL SUCC 50MG EXT REL TAB PO SCH (08:29)
[2023-08-30] MEDS: DOCUSATE SODIUM/SENNA 50/8.6MG TAB PO SCH (08:29)
[2023-08-30] MEDS: METOPROLOL SUCC 25MG EXT REL TAB PO SCH (08:30)
[2023-08-30] MEDS: BENZONATATE 100 MG CAPSULE PO SCH ×2 (08:30→12:48)
[2023-08-30] MEDS: ATORVASTATIN 40 MG TAB PO SCH (08:30)
[2023-08-30] MEDS: APIXABAN 5 MG TABLET PO SCH (08:30)
[2023-08-30] MEDS: LINACLOTIDE 145 MCG CAPSULE PO SCH (08:31)
[2023-08-30] MEDS: predniSONE 10 MG TABLET PO SCH (08:31)
[2023-08-30] MEDS: ADVANCED PROBIOTIC 1250 MG CAPSULE PO SCH (08:31)
[2023-08-30] MEDS: PANTOprazole 40 MG TAB PO SCH (08:31)
[2023-08-30] MEDS: POTASSIUM CHLORIDE CRTAB 20 MEQ TABCR PO SCH (08:31)
[2023-08-30] MEDS: guaiFENesin/DEXTROM SYRUP 200MG/20MG 10ML UDC PO PRN ×2 (08:32→14:16)
[2023-08-30] MEDS: GABAPENTIN 300 MG CAP PO SCH (08:32)
[2023-08-30] MEDS: INSULIN ASPART PER UNIT CHARGE SC SCH ×2 (08:42→12:47)
[2023-08-30] MEDS: INSULIN HUMAN NPH SQ SCH (08:42)
[2023-08-30 09:07] LABS: Basophils # (auto) 0.01 K/uL (0.00-0.20); Basophils % (auto) 0.1 %; Eosinophils # (auto) 0.04 K/uL (0.00-0.50); Eosinophils % (auto) 0.5 %; Hemoglobin 11.4 g/dl (14.0-18.0); Immature Granulocytes # (auto) 0.26 K/uL (0.01-0.20); Immature Granulocytes % (auto) 3.4 %; Lymphocytes # (auto) 1.21 K/uL (1.20-3.40); Lymphocytes % (auto) 15.8 %; Mean Corpuscular Hemoglobin 29.6 pg (25.0-34.0); Mean Corpuscular Hgb Conc 31.7 g/dL (32.0-36.0); Mean Corpuscular Volume 93.5 fL (80.0-100.0); Mean Platelet Volume 11.8 fL (9.4-12.4); Monocytes # (auto) 0.68 K/uL (0.11-0.59); Monocytes % (auto) 8.9 %; Neutrophils # (auto) 5.46 K/uL (1.40-6.50); Neutrophils % (auto) 71.3 %; Nucleated RBC # (auto) 0.04 K/uL (0.00-0.12); Nucleated RBC % (auto) 0.5 %; Platelet Count 135 K/uL (130-400); RDW Coefficient of Variation 17.8 % (11.5-14.5); RDW Standard Deviation 55.6 fL (36.4-46.3); Red Blood Count 3.85 M/uL (4.70-6.10); White Blood Count 7.66 K/ul (4.8-10.8)
[2023-08-30 09:21] LABS: BUN Creatinine Ratio 35.2 (10-20); Calcium 9.6 mg/dl (8.6-10.3); Creatinine Clr Calc Pharmacy 56.5 ml/min; Est GFR (African American) 76.3 ml/min; Est GFR (Non-African American) 65.9 ml/min; Potassium 3.8 mmol/L (3.5-5.1)
[2023-08-30 09:30] LABS: Partial Thromboplastin Ratio 0.8; Partial Thromboplastin Time 23.4 Seconds (21.0-31.0)
[2023-08-30] MEDS: FUROSEMIDE 20 MG TAB PO SCH (09:33)
--- NOTE | 2023-08-30 10:31 | Pharmacy Report ---
Pharmacy Glycemic Short Note 2 - Date of Service August 30, 2023 - Glycemic Short BSG Results (Last 24 hours): 08/29/23 08/29/23 08/29/23 12:22 17:13 20:40 Glucose POC Glucose 163 H 166 H 194 H 08/30/23 08/30/23 08:15 08:47 Glucose 123 H POC Glucose 120 H OUTPATIENT ANTIDIABETIC REGIMEN: * Lantus 45 units SC QPM * Novolog 15 units SC TIDM * Victoza 1.2 mg SC daily * HbA1c 6.9% (07/07/23) ASSESSMENT: 08/30: * Patient received total of 110 units of insulin yesterday, of which 25 were Lantus and 20 units were NPH to cover po prednisone 30 mg * BSGs relatively controlled yesterday, reasonable to continue similar parameters today 08/27 * Dev received 156 units of insulin yesterday of which 70 were basal (45 units Lantus and 25 units NPH to cover prednisone) * Fasting BSG this AM within goal range, continue with current basal regimen, allow for 25% decrease in Lantus at bedtime if BSGs at or below goal. * BSGs trended up yesterday, tightened Novolog parameters 08/26 * Drip transition yesterday was successfull. A total of 45 units of Lantus was administered (15 units x3 doses), which is the same as his nightly dose outpatient. NPH added to help cover prednisone-induced prandial elevations * Will continue NPH for now since prednisone is continuing * Will scale Lantus this evening based on BSG, up to home dose of 45 units * Difficult to assess Novolog regimen at this time due to concurrent drip yesterday. No changes for now 08/25 * Dev is a 78 YOM admitted with hypoxia on 08/20 with a history of T2DM. Pharmacy has been consulted for glycemic management and is familiar to the service from recent admissions. Last evening, Dev experienced significant hyperglycemia likely due to basal deficiency (Lantus was held since admission) and addition of prednisone to medication regimen and was subsequently started on an insulin drip. BSGs trended down slowly overnight into the 200s this AM. * Discussed case with roby Estrada to transition of the insulin drip this AM. Insulin NPH (0.4 units/kg) given to cover prednisone. Previous admissions, Dev's basal requirement was around 30 units daily. Will administer half of the basal requirement this AM and allow for within 15% of previous admission requirements based on evening BSGs. Plan to move Lantus to PM and continue NPH with prednisone in AM. * Novolog initiated at previously effective parameters, may need to be tightened based on prednisone and NPH response. PLAN FOR INPATIENT GLYCEMIC CONTROL: * Hold outpatient diabetes medications * Basal insulin * Lantus 20-25 units SC this PM (see eMAR for additional details) * Insulin NPH 20 units SC QAM with prednisone * Bolus insulin * NovoLog per scale ACHS or Q6hrs while NPO * Goal Range: Low 110 mg/dL - High 140 mg/dL * Correction Factor: 15 mg/dL/unit * Nutritional / Prandial insulin per carb ratio of 1 unit pe 4 grams CHO consumed
--- NOTE | 2023-08-30 15:21 | Discharge Summary ---
Discharge Summary Date of Service August 30, 2023 Notes For Next Care Provider Ensure follow up with Interstitial Lung Disease (ILD) clinic at [facility]. Pulmonology recommending: PFTs, HRCT, possible lung biopsy ID recommending: bronchoscopy, possible lung biopsy, repeat bacterial culture, AFB smear/culture, Pneumocystis smear, legionella Culture Wound Care for left foot wound Medication Changes From Visit Continue with Prednisone taper as prescribed for total of 2 weeks Admission HPI Per Admitting Provider 78-year-old male with PMH DM type II, dyslipidemia, COPD, interstitial lung disease, CAD, paroxysmal atrial fibrillation anticoagulated on Eliquis, chronic systolic CHF EF 35 to 40%, tachybradycardia syndrome s/p pacemaker, multiple myeloma, and other problems as below who presents to the ED for evaluation of shortness of breath. History obtained from the patient and review of outpatient PCP, cardiology, oncology records. Patient reports shortness of breath for the past couple days. Reports shortness of breath with minimal exertion, no shortness of breath at rest. Reports a cough productive for yellow sputum. No chest pain or palpitations. Reports feeling mildly lightheaded and dizzy with standing, no syncopal event. Has had a poor appetite but denies abdominal pain, nausea, vomiting, diarrhea. No fevers or chills. Denies urinary symptoms. Patient was at the wound care center today for management of left lower extremity wound and given shortness of breath symptoms, was referred to the ED for further evaluation. In the ED, patient was hypoxic on room air, currently requiring 2 L of oxygen via nasal cannula. CXR shows persistent right upper and right mid lung opacities. proBNP 258. Initial HS troponin negative. Patient was given Lasix 40 mg IV. Admission Exam Per Admitting Provider Constitutional: WD/WN, vitals as above no acute distress Eyes: PERRL, conjunctivae normal, anicteric sclerae Respiratory: normal respiratory effort; no respiratory distress Auscultation: + crackles (Bilateral bases) Cardiovascular: Rate/Rhythm: regular rate and regular rhythm Vessels: normal peripheral pulses Extremities: no edema Gastrointestinal (Abdomen): normal bowel sounds, soft, nontender, no hepatosplenomegaly Musculoskeletal: no cyanosis or clubbing, extremities motor strength 5/[address] to LLE Skin: no rashes, warm and dry Neurologic: PERRL, EOMI, accommodation nl, no face palsy, no dysarthria Psychiatric: A+Ox3, euthymic affect Principal Dx & Hospital Course #1 = Principal Diagnosis (1) Hypoxia: (2) Interstitial lung disease: (3) Ischemic cardiomyopathy: (4) Chronic heart failure with reduced ejection fraction and diastolic dysfunction: (5) PAF (paroxysmal atrial fibrillation): (6) Tachy-noman syndrome: (7) Pacemaker: (8) Diabetic ulcer of left foot: (9) CAD (coronary artery disease): (10) Type 2 diabetes mellitus: (11) Multiple myeloma: Plan 78-year-old male with PMH DM type II, dyslipidemia, COPD, interstitial lung disease, CAD, paroxysmal atrial fibrillation anticoagulated on Eliquis, chronic systolic CHF EF 35 to 40%, tachybradycardia syndrome s/p pacemaker, multiple myeloma, and other problems as below who presents to the ED for evaluation of shortness of breath. Patient presenting from home with reports of shortness of breath x 2 days. Was at the [facility] and was referred to the ED due to shortness of breath. Rhinovirus/Enterovirus infection Hypoxia multifactorial Interstitial lung disease, COPD, suspected TRIP, CHF with reduced EF and diastolic dysfunction H/O recent Pneumonia --CT Chest:Multisegmental multilobar dissipation of bilateral tree-in-bud nodules within a mid to lower lung zone predominant distribution compatible with an infectious or inflammatory bronchiolitis/pneumonitis. Emphysema with bibasilar fibrotic changes redemonstrated. Linear area of right apical consolidation is suggestive of postinflammatory scarring. Attention on follow-up recommended. No pleural effusion or lymphadenopathy. --BioFire positive for enterovirus --Normal procalcitonin --Echo 06/2023-EF 35 to 40%, diastolic dysfunction --BNP 258 (improved from most recent results) --Repeat CT chest on 08/24/23 suggestive of progressive lower lobe consolidation with mucous plugging -- Sputum cultures NGTD Completed 5-day course of Zosyn Prednisone taper for 2 weeks, discharged with remaining doses. Did not require oxygen on discharge Pulmonology was consulted and recommended the following: -follow up with Interstitial Lung Disease (ILD) clinic at [facility] for PFTs, HRCT, possible lung biopsy ID was consulted and recommended the following: -follow up with Interstitial Lung Disease (ILD) clinic at [facility] for bronchoscopy, possible lung biopsy, repeat bacterial culture, AFB smear/culture, Pneumocystis smear, legionella Culture Left plantar foot wound Diabetic Ulcer Follows with wound clinic as outpatient Wound cultures growing Pseudomonas, Enterococcus faecalis No infection currently as per ID, recommending wound care Received Zosyn as noted above Continue local wound care Epistaxis Episode in the hospital Continue Humidification of supplemental oxygen Afrin as needed Did not have recurrence of epistaxis while on IV heparin or eliquis A-fib RVR Continue metoprolol, digoxin Discontinued IV heparin Resumed Eliquis NSVT Noted on 08/29/23, pt remained asymptomatic Discussed w/ cardiology - reviewed recent echo and cardiac hx - no changes recommended Tachy-noman syndrome S/P pacemaker Management as above Chronic orthostatic hypotension Stable Monitor BP CAD (coronary artery disease) s/p CABG Continue statin and beta-annika Type 2 diabetes mellitus Hgb A1c 6.9 06/2023 Home agents held while hospitalized, resume after discharge Multiple myeloma Follows with Hematology/Oncology, Dr. Garcia Treatment currently on hold Discharge Exam General: Alert, oriented. No acute distress Skin: No noted rashes or bruises Psych: Appropriate mood and affect Neuro: No gross deficits HEENT: NC/AT CV: RRR, murmur appreciated Resp: Breath sounds decreased bilaterally, no increased effort of breathing. Abdomen: Soft, nontender, nondistended. Extremities: No edema in lower extremities bilaterally. Updated Medication List Medication Instructions Recorded Confirmed Type apixaban 5 mg tablet (Eliquis) 5 mg PO BID 06/25/20 08/20/23 History atorvastatin 40 mg tablet 40 mg PO DAILY 06/25/20 08/20/23 History liraglutide 0.6 mg/0.1 mL (18 mg/3 1.2 mg subcut DAILY 09/30/21 08/20/23 History mL) subcutaneous pen injector (Victoza 2-Jed) ondansetron 8 mg disintegrating 8 mg PO Q8H PRN Nausea 09/30/21 08/20/23 History tablet prochlorperazine maleate 10 mg 10 mg PO Q6H PRN nausea 09/30/21 08/20/23 History tablet polyethylene glycol 3350 17 gram 17 g PO DAILY PRN constipation #15 10/05/21 08/20/23 Rx oral powder packet (Miralax) ea nitroglycerin 0.4 mg sublingual 0.4 mg sublingual .Q 5 MIN PRN 11/01/21 08/20/23 History tablet Chest Pain omega-3 fatty acids 1,000 mg 1,000 mg PO BID 04/15/22 08/20/23 History capsule docusate sodium 100 mg capsule 100 mg PO BID PRN Constipation 04/22/22 08/20/23 History (Colace) gabapentin 300 mg capsule 300 mg PO AMHS 04/22/22 08/20/23 History mecobalamin (vitamin B12) 1,000 1,000 mcg PO DAILY 04/22/22 08/20/23 History mcg chewable tablet (B12 Active) morphine 15 mg immediate release 15 mg PO Q4H PRN Pain 04/22/22 08/20/23 History tablet calcium carbonate 600 mg-vitamin 1 tab PO BID 11/04/22 08/20/23 History D3 10 mcg (400 unit) tablet (Calcium 600 + D(3)) digoxin 125 mcg (0.125 mg) tablet 125 mcg PO Q OTHER DAY 11/04/22 08/20/23 History lenalidomide 10 mg capsule 10 mg PO DIRECTED 11/04/22 08/20/23 History (Revlimid) potassium chloride 20 mEq 20 meq PO BID 11/04/22 08/20/23 History tablet,extended release(part/cryst) sennosides 8.6 mg tablet (senna) 17.2 mg PO HS PRN Constipation 11/04/22 08/20/23 History insulin aspart U-100 100 unit/mL 15 unit subcut TIDM 12/31/22 08/20/23 History (3 mL) subcutaneous pen (Novolog FlexPen U-100 Insulin aspart) insulin glargine 100 unit/mL (3 45 unit subcut QPM 12/31/22 08/20/23 History mL) subcutaneous pen (Basaglar KwikPen U-100 Insulin) dexamethasone 4 mg tablet 20 mg PO WK 06/25/23 08/20/23 History mirtazapine 30 mg tablet 30 mg PO HS 06/25/23 08/20/23 History omeprazole 20 mg capsule,delayed 20 mg PO QAM 06/25/23 08/20/23 History release linaclotide 145 mcg capsule 145 mcg PO DAILY 07/28/23 08/20/23 History (Linzess) furosemide 20 mg tablet (Lasix) 20 mg PO UD #30 tabs 07/29/23 08/20/23 Rx metoprolol succinate 25 mg 25 mg PO DAILY 08/20/23 08/20/23 History tablet,extended release 24 hr metoprolol succinate 50 mg 50 mg PO BID 08/20/23 08/20/23 History tablet,extended release 24 hr (Toprol XL) prednisone 10 mg tablet See Rx Instructions .Route 08/30/23 Rx .COMPLEX #7 tabs Hospital Stay Data Consultations 08/20/23 11:02 ED Decision to Admit Stat 08/20/23 15:25 Consult Pulmonology Routine 08/23/23 07:59 Consult Infectious Diseases Routine Diagnostic Imagining Performed 08/20/23 11:55 CT chest diagnostic wo con Urgent 08/23/23 07:57 CT chest diagnostic wo con Urgent Chest X-Ray 08/20/23 09:53 XR chest 1V portable CLINICAL HISTORY: Chest pain, nonspecific COMPARISON STUDY: Chest CT July 06, 2023. Chest radiograph July 28, 2023. FINDINGS: Left subclavian pacer is in place. There are median sternotomy wires and mediastinal surgical clips. There is no pneumothorax. No definite pleural effusion. Right upper lung airspace opacity is again noted. There is also minimal right midlung opacity. Findings are similar to prior exam. No consolidation within the left lung is noted. Underlying emphysema is better depicted on prior chest CT. IMPRESSION: Persistent mild right upper and midlung airspace opacities, similar to prior exam. The findings may reflect resolving pneumonia however continued imaging follow-up is recommended to ensure resolution. ACT 112: Negative or not required by law. Electronically signed by: Raghu Mcgowan M.D. 08/20/2023 10:[address] 08/20/23 11:55 CT chest diagnostic wo con CT DOSE: 308.08 mGy.cm CLINICAL HISTORY: 78 years-old Male with hypoxia. Acute hypoxia TECHNIQUE: Multiaxial CT images of the chest were performed without contrast. A dose lowering technique was utilized adhering to the principles of ALARA. COMPARISON: 07/06/2023 FINDINGS: No thyroid nodule. Left subclavian pacer. Mild to moderate cardiomegaly with extensive tangirnaq coronary artery calcifications. Median sternotomy with CABG. Atherosclerosis of aorta without aneurysm. There are suggested postoperative changes of the pulmonary arteries/pulmonic valve. No pneumothorax, pleural effusion or overt pulmonary edema. Emphysema. There is a linear area of consolidation within the apical right upper lobe on image 64 suggestive of atelectasis/fibrosis measuring 8.1 x 2.8 cm. Multilobar distribution of multifocal tree-in-bud nodules with patchy dependent bibasilar consolidation admixed with fibrosis and mild traction bronchiectasis. No honeycombing. Central airways are patent. No acute process of the imaged upper abdomen. Unremarkable soft tissues. Degenerative changes of the spine. Healed chronic bilateral rib fractures. Stable peripherally sclerotic lucent foci noted within the spine. IMPRESSION: 1. Multisegmental multilobar dissipation of bilateral tree-in-bud nodules within a mid to lower lung zone predominant distribution compatible with an infectious or inflammatory bronchiolitis/pneumonitis. 2. Emphysema with bibasilar fibrotic changes redemonstrated. 3. Linear area of right apical consolidation is suggestive of postinflammatory scarring. Attention on follow-up recommended. 4. No pleural effusion or lymphadenopathy. ACT 112: Negative or not required by law. Electronically signed by: Uziel Nieto M.D. 08/20/2023 12:46 PM Chest X-Ray 08/21/23 13:44 XR chest 1V portable CLINICAL HISTORY: hypoxia TECHNIQUE: Single frontal radiograph of the chest was obtained. Comparison: Comparison is made to chest radiograph 08/20/2023 FINDINGS: Lines and tubes are stable. The cardiomediastinal silhouette is normal. Right upper lung airspace opacity is again seen. No evidence of pleural effusion or pneumothorax. IMPRESSION: Right upper lung airspace opacity is unchanged from prior exam. ACT 112: Negative or not required by law. Electronically signed by: Tacho Lambert M.D. 08/21/2023 3:[address] 08/23/23 07:57 CT chest diagnostic wo con CT DOSE: 358.58 mGy.cm CLINICAL HISTORY: 78 years-old Male with Pneumonia,Epistaxis. Acute shortness of breath with pneumonia TECHNIQUE: Multiaxial CT images of the chest were performed without contrast. A dose lowering technique was utilized adhering to the principles of ALARA. COMPARISON: Chest CT 08/20/2023 FINDINGS: No thyroid nodule. Left subclavian pacer. Mild to moderate cardiomegaly with extensive tangirnaq coronary artery calcifications. Median sternotomy with CABG. Atherosclerosis of aorta without aneurysm. There are suggested postoperative changes of the pulmonary arteries/pulmonic valve. No pneumothorax, pleural effusion or overt pulmonary edema. Emphysema. There is a linear area of consolidation within the apical right upper lobe on image 62 suggestive of atelectasis/fibrosis measuring 8.1 x 2.8 cm. Multilobar distribution of multifocal tree-in-bud nodules with patchy dependent bibasilar consolidation admixed with fibrosis and mild traction bronchiectasis. The degree of consolidation within the lower lobes has worsened. Moderate associated right lower lobe prominent mucous plugging. No honeycombing. No acute process of the imaged upper abdomen. Unremarkable soft tissues. Degenerative changes of the spine. Healed chronic bilateral rib fractures. Stable peripherally sclerotic lucent foci noted within the spine. IMPRESSION: 1. Multisegmental multilobar dissipation of bilateral tree-in-bud nodules within a mid to lower lung zone predominant distribution compatible with an infectious or inflammatory bronchiolitis/pneumonitis is again noted with progressive lower lobe consolidation and mucous plugging. 2. Emphysema with bibasilar fibrotic changes redemonstrated. 3. Linear area of right apical consolidation is suggestive of postinflammatory scarring. Attention on follow-up recommended. ACT 112: Negative or not required by law. Electronically signed by: Uziel Nieto M.D. 08/23/2023 11:06 AM Chest X-Ray 08/29/23 10:54 XR chest 1V portable HISTORY: follow up, hypoxia, arrhythmia COMPARISON: Chest 08/21/2023. Chest CT 08/23/2023. FINDINGS: No pneumothorax. No pleural effusions. The heart is normal in size. There are poststernotomy changes and left-sided pacemaker again noted. No evidence for pulmonary edema. Peripheral linear density within the right upper lobe remains unchanged. Reticulonodular interstitial thickening most pronounced within the lung bases. This has slightly improved and favors an infectious bronchiolitis. IMPRESSION: 1. Slight improvement in the reticulonodular interstitial thickening favoring an infectious bronchiolitis. 2. Linear density within the periphery of the right upper lobe persists. ACT 112: Negative or not required by law. Electronically signed by: Sloan Dang M.D. 08/29/2023 11:42 AM Pending Results Patient Have Any Pending Studies at Discharge: No Discharge Instructions Given to Patient (Per Discharging Provider) Mr. Hernandez, You were admitted with trouble breathing. You were evaluated by the iron worker foreman and they believe that it is related to your lung disease. They are recommending follow up with the Interstitial Lung Disease clinic at [facility] for further evaluation and testing. Pulmonology also recommended treatment with a total of 2 weeks of steroids. You did not require oxygen for discharge. Please also keep follow up with your primary care provider. It was a pleasure taking care of you while you were here! Total Time Total Time Spent Total Time Spent (In Minutes): > 30 minutes
== END 2023-08-30 16:32 | disposition home health service (06) | DRG 205 ==
LOC: ED 09:23 → SUATTDRO 11:55 → 2W 11:55

== ENCOUNTER 2023-11-21 19:46 | Inpatient (IN) ==
--- OUTSIDE RECORDS SUMMARY | 2023-11-21 19:57 | External Medical Summary | Summary of Care ---
Author Name Unknown Organization [facility] Address [address] [address] Phone [phone] Care Team Providers Care Market Developer Name Role Phone Yassine Albert DO Primary Care Provider [phone] Reason for Visit * Reason Comments eRx-Medication Refill Encounter Details Date Type Department Care Team (Late st Contact Info) Description 11/16/2023 Refill Pharmacy, [facility] [address] [facility] [place] [address] Yassine Albert DO [address] [facility] [place] [address] Type 2 diabetes mellitus with hemoglobin A1c goal of less than 8.0% (HCC) Allergies Active Allergy Reactions Criticality Noted Date Comments Tizanidine 06/27/2021 documented as of this encounter (statuses as of 11/16/2023) Medications Medication Sig Dispensed Refills Start Date [...] or Wheezing. 18 g 3 04/03/2022 Active V63-Leyzse 1 MG Oral Tablet Chewable (Methylcobalamin) Take by mouth daily . 0 Active Omeprazole 20 MG Oral Capsule Delayed [...] 1 Each 3 03/04/2023 Active Dexcom G7 First Dyer Device Use to check blood sugar 1 [...] than 8.0% (FORMERLY [facility]) USE DIRECTED WITH insulins 500 Each 3 04/18/2023 Active Digoxin 125 MCG Oral Tablet (Lanoxin) Take 1 Tablet by mouth every other day. 90 Tablet 3 05/19/2023 Active Ondansetron HCl 8 MG Oral Tablet (Zofran)Indications :Multiple myeloma not having achieved remission ([facility]) Take 1 Tablet by mouth every 8 [...] at bedtime. 30 Tablet 5 06/14/2023 Active Senna 8.6 MG Oral Tablet Take 2 Tablets by mouth at bedtime as needed for Constipation. 60 Tablet 1 07/23/2023 Active Atorvastatin Calcium 40 MG Oral Tablet (Lipitor)Indication s:Dyslipidemia, goal LDL below 70 TAKE 1 TABLET BY MOUTH EVERY DAY 90 Tablet 1 07/27/2023 Active Metoprolol Succinate ER 25 MG Oral Tablet Extended Release 24 Hour (toPROL XL) Take 1 Tablet by mouth in the morning. 90 Tablet 3 10/13/2023 Active Metoprolol Succinate ER 50 MG Oral Tablet Extended Release 24 Hour (toPROL XL) Take 1 Tablet by mouth in the morning and 1 Tablet before bedtime. 180 Tablet 3 10/13/2023 Active Morphine Sulfate 15 MG Oral Tablet (Msir)Indications:C ancer related pain Take 1 Tablet by mouth every 4 hours as needed for Pain, Severe. 120 Tablet 0 10/13/2023 Active Furosemide 20 MG Oral Tablet (Lasix) Take 1 Tablet by mouth once a day on Wednesday, Wednesday, and Wednesday only. 30 Tablet 5 10/13/2023 Active Fluticasone Propionate 50 MCG/ACT Nasal Suspension (Flonase)Indication s:ETD (Eustachian tube dysfunction), right Administer 2 Sprays into each nostril in the morning. 18.2 mL 1 10/13/2023 Active Lenalidomide 10 MG Oral Capsule (Revlimid)Indicatio ns:Multiple myeloma not having achieved remission (HCC) Take one cap by mouth daily for 21 days on, 7 days off of a 28 day cycle 21 Capsule 0 11/02/2023 Active Eliquis 5 MG Oral Tablet (Apixaban)Indicatio ns:Paroxysmal atrial fibrillation (HCC) TAKE 1 TABLET BY MOUTH TWICE A DAY 180 Tablet 3 11/05/2023 Active Klor-Con M20 20 MEQ Oral Tablet Extended Release (Potassium Chloride ER) TAKE 1 TABLET BY MOUTH IN THE MORNING AND BEFORE BEDTIME 180 Tablet 3 11/11/2023 Active Basaglar KwikPen 100 UNIT/ML Subcutaneous Solution Pen-injector (Insulin Glargine Solostar)Indication s:Type 2 diabetes mellitus with hemoglobin A1c goal of less than 8.0% (HCC) INJECT 40 UNITS , SUBCUTANEOUSLY, EVERY DAY. PLUS DIRECTED FOR 3 DAYS AROUND CHEMO. 45 mL 3 11/16/2023 Active documented as of this encounter (statuses as of 11/16/2023) Active Problems Problem Noted Date Diagnosed Date COPD, group B, by GOLD 2017 classification 09/27 Overview: Per COPD GOLD Classification Chronic kidney disease, stage 3a 08/30/2023 Overview: Per CKD protocol Protein-calorie malnutrition 08/02/2023 ILD (interstitial lung disease) 06/14/2023 Chronic systolic (congestive) heart failure 05/2022 Coronary artery disease invo lving cocopah coronary artery of cocopah heart without angina pectoris 06/25/2022 Presence of [...] Gastroesophageal reflux disease without esophagi tis 03/15/2019 watermaster (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 of insulin 11/25/2018 Paroxysmal atrial [...] as of this encounter (statuses as of 11/16/2023) Resolved Problems Problem Noted Date Diagnosed Date Resolved Date COPD, group A, by GOLD 2017 classification 06/14/2023 09/30/2023 Overview: Per COPD GOLD Classification Non-pressure chronic ulcer o f other part [...] 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,rt scientologist 07/05/2002 05/26/2018 Rosacea 07/28/2001 05/26/2018 LOC PRIM [id number] 07/28/200106/2018 documented as of this encounter (statuses as of 11/16/2023) Immunizations Name Administration Dates Next Due COVID-19 [...] Perfusio n F, Pf,0.5 Ml (Abrysvo) 08/04/2023 Seasonal Influenza Virus Vac cine, Unspecified Formulation 07/21/2021,07/03/2020,08/04/2019,08/22,07/30/2012,08/18/2011,09/04/2009 ,10/15/2008,09/01/2008,09/06/2007,07/18,08/25/2005,09/24/2003 Seasonal Influenza, PF, 6 M & above, IM , (FluLaval or Fluzone) 07/03/2020,08/04/2019 Seasonal Influenza, Quadriva lent Hd (Fluzone [...] encounter Miscellaneous Notes * Telephone Encounter - Chio Royal RPh - 11/16/2023 12:57 PM ESTSigned Prescriptions: Disp Refills Basaglar KwikPen 100 UNIT/ML Subcutaneous *45 mL 3 Sig: INJECT 40 UNITS , SUBCUTANEOUSLY, EVERY DAY. PLUS DIRECTED FOR 3 DAYS AROUND CHEMO.Authorizing Provider: YASSINE ALBERT User: CHIO ALMENDAREZ V * Telephone Encounter - Delroy Melgoza, assistant chief of police - 11/16/2023 12:54 PM EST Pt is out of medication. Did you pend patient's preferred pharmacy and medication before forwarding?yes Pharmacy: [id number] [address] [place] [address] Pending Prescriptions: Disp Refills Basaglar KwikPen 100 UNIT/ML Subcutaneous* 2 Sig: INJECT 40 UNITS , SUBCUTANEOUSLY, EVERY DAY. PLUS DIRECTED FOR 3 DAYS AROUND CHEMO. Last Visit: 09/21/2023 (in office), 02/15/2023 (telemedicine) Next Visit: 12/22/2023 If no future appointments scheduled, and last appointment is greater than a year ago, please schedule patient for a follow-up appointment Last date the medication was ordered: 11/16/2023 Is this request for a controlled substance?No Urine Drug Screen:No results found. However, due to the size of the patient record, not all encounters were searched. Please check Results Review for a complete set of results. Patient Phone Numbers Labs: Lab Results Component Value Date/Time CREAT 1.0 11/04/2023 12:53 PM CREAT 1.25 10/10/2021 12:00 AM CREAT 1.1 09/04/2020 10:57 AM POTASSIUM 3.7 11/04/2023 12:53 PM POTASSIUM 4.6 10/10/2021 12:00 AM POTASSIUM 4.5 09/04/2020 10:57 AM TSH 1.93 01/26/2022 11:59 AM TSH 1.46 09/16/2020 12:55 PM LDLCALC 37 09/04/2020 10:57 AM LDLDIRECT 49 05/12/2022 09:00 AM LDLDIRECT NOT APPLICABLE 09/04/2020 10:57 AM LDLDIRECT 57 01/06/2018 10:48 AM ALT 28 11/04/2023 12:53 PM ALT 30 09/04/2020 10:57 AM HGBA1C 6.1 (H) 09/21/2023 01:41 PM HGBA1C 6.6 (H) 06/14/2023 01:35 PM HGBA1C 6.5 (H) 09/16/2020 12:55 PM documented in this encounter Plan of Treatment Upcoming Encounters Date Type Department Care Team (Late st Contact Info) Description 11/26/2023 9:00 AM EST Pharmacy Pharmacy Hematology Oncology [address] [address] [facility] Hem/Onc [facility] [place] [address] 11/26/2023 10:30 AM EST Laboratory Laboratory [facility] [place] [address] [place] [place] [phone] [place], Lab [facility] [address] [place] [address] 11/26/2023 11:30 AM EST [facility] [address] [place] [address] 12/14/2023 8:00 AM EST Office Visit Hematology/Oncology [facility] [address] [place] [address] Chito Garcia MD [address] [place] [address] 12/22/2023 2:00 PM EST Office Visit Pharmacy, [facility] [address] [place] [address] Pharmacist1, [facility] [address] [facility] [place] [address] 01/17/2024 3:00 PM EDT Office Visit Family [facility] [place] [address] [place] [address] Yassine Albert, DO [address] [place] [address] 05/09/2024 3:20 PM EDT Office Visit [facility] [place] [address] [place] [address] Yassine Albert, DO [address] [place] [address] Health Maintenance Due Date Last Done Comments [...] Additional history exists Depression Screening 05/20/2023 05/20/2022 Diabetic Eye Exam 09/09/2023 09/09/2022, , 10/25/2019, Additional history exists DIG LEVEL FOR MEDICATION MONITORING YEARLY 01/05/2024 01/04/2023, 10/08/2022, 05/15/2022 B-12 03/02/2024 03/02/2023, 070 02/2022, 07/08/2021, Additional history exists HbA1c 03/22/2024 09/21/2023, 05/19, 03/02/2023, Additional history exists GFR 05/04/2024 11/04/2023, 10/18, 10/25/2023, Additional history exists CKD PHOS USE SMARTSET 04524 09/21/2024 12/0 02/2023, 08/02/2023, 05/25/2023, Additional history exists CKD HGB USE SMARTSET 04243 10/29/202410/29, 10/29/2023, 10/25/2023, Additional history exists O2 ASSESSMENT COMPLETED IN PAST YEAR FOR COPD 10/29/2024 10/29/2023 DTaP,Tdap,and Td Vaccines (2 - Td or Tdap) 04/02/2032 04/02/2022 COLONOSCOPY-EVERY 5 YRS AGES 18-100 Discontinued 11/16/2016, 11/16/2016, 07/16/2006 Influenza Vaccine (FLU shot) Completed 08/02/2023, 07/07/2022, 07/21/2021, Additional history exists COVID-19 Vaccine Completed 08/18/2023, , 05/07/2022, Additional history exists GARDASIL-HPV IMMUNIZATION SERIES Aged Out No longer eligible based on patient's age to complete this topic MENINGOCOCCAL (MENACTRA/MENVEO) Aged Out No longer eligible based on patient's age to complete this topic documented as of this encounter Medical Devices Implanted Type Area Almond Roaster Device Identifier Shelf Expiration Date Model / Serial / Lot Lens Intraoc 24.0 - [id number] - [id number] Implanted:Qty: 1 on 08/16/2018 by Adan Colon MD at OR [facility] Right: Eye [employer] 11/17/2022 [id number] / [id number] / [id number] Lens Intraoc 24.0 - [id number] - [id number] Implanted:Qty: 1 on 08/23/2018 by Adan Colon MD at OR [facility] Left: Eye [employer]OM[employer] 06/17/2023 [id number] / [id number] / [id number] Screw [employer] [id number] - [id number] Implanted:Qty: 1 on 12/07/2019 by Amilcar Saavedra MD at OR [facility] Left: Foot EXACTECH [id number] / / documented as of this encounter [...] and were consensually agreed upon. Care Teams Market Developer Relationship Specialty Start Date End Date Yassine Albert DO [address] [place] [address] PCP - General Family Medicine 02/09/22 documented as of this encounter
--- OUTSIDE RECORDS SUMMARY | 2023-11-21 19:57 | External Medical Summary | Summary of Care ---
Author Name Unknown Organization [facility] Address [address] [address] Phone [phone] Care Team Providers Care Song Lyricist Name Role Phone Landen Macario DO Primary Care Provider [phone] Reason for Visit * Reason Comments eRx-Medication Refill Encounter Details Date Type Department Care Team (Late st Contact Info) Description 11/05/2023 Refill Cardiology, [facility] [address] [place] [phone] Keri yDe PA-C [address] [place] [phone] Paroxysmal atrial fibrillation (HCC)* Allergies Active Allergy Reactions Criticality Noted Date Comments Tizanidine 06/27/2021 documented as of this encounter (statuses as of 11/05/2023) Medications Medication Sig Dispensed Refills Start Date [...] or Wheezing. 18 g 3 2 Active W20-Nkywtt 1 MG Oral Tablet Chewable (Methylcobalamin) Take [...] 1 Each 3 3 Active Dexcom G7 Neonatal Intensive Care Unit Nurse Device Use to check blood sugar 1 [...] WITH insulins 500 Each 3 3 Active Klor-Con M20 20 MEQ Oral [...] at bedtime. 30 Tablet 5 3 Active Senna 8.6 MG Oral Tablet Take 2 Tablets by mouth at bedtime as needed for Constipation. 60 Tablet 1 3 Active Atorvastatin Calcium 40 MG Oral Tablet (Lipitor)Indicati ons:Dyslipidemia, goal LDL below 70 TAKE 1 TABLET BY MOUTH EVERY DAY 90 Tablet 1 3 Active Metoprolol Succinate ER 25 MG Oral Tablet Extended Release 24 Hour (toPROL XL) Take 1 Tablet by mouth in the morning. 90 Tablet 3 3 Active Metoprolol Succinate ER 50 MG Oral Tablet Extended Release 24 Hour (toPROL XL) Take 1 Tablet by mouth in the morning and 1 Tablet before bedtime. 180 Tablet 3 3 Active Morphine Sulfate 15 MG Oral Tablet (Msir)Indications :Cancer related pain Take 1 Tablet by mouth every 4 hours as needed for Pain, Severe. 120 Tablet 0 3 Active Furosemide 20 MG Oral Tablet (Lasix) Take 1 Tablet by mouth once a day on Wednesday, Wednesday, and Wednesday only. 30 Tablet 5 3 Active Fluticasone Propionate 50 MCG/ACT Nasal Suspension (Flonase)Indicati ons:ETD (Eustachian tube dysfunction), right Administer 2 Sprays into each nostril in the morning. 18.2 mL 1 3 Active Lenalidomide 10 MG Oral Capsule (Revlimid)Indicat ions:Multiple myeloma not having achieved remission (HCC) Take one cap by mouth daily for 21 days on, 7 days off of a 28 day cycle 21 Capsule 0 4 Active Eliquis 5 MG Oral Tablet (Apixaban)Indicat ions:Paroxysmal atrial fibrillation (HCC) TAKE 1 TABLET BY MOUTH TWICE A DAY 180 Tablet 3 4 Active Eliquis 5 MG Oral Tablet (Apixaban) TAKE 1 TABLET BY MOUTH TWICE A DAY 60 Tablet 11 3 11/05/19 24 Discontinued documented as of this encounter (statuses as of 11/05/2023) Active Problems Problem Noted Date Diagnosed Date COPD, group B, by GOLD 2017 classification 09/27 Overview: Per COPD GOLD Classification Chronic kidney disease, stage 3a 08/30/2023 Overview: Per CKD protocol Protein-calorie malnutrition 08/02/2023 ILD (interstitial lung disease) 06/14/2023 Chronic systolic (congestive) heart failure 05/2022 Coronary artery disease invo lving andreafski coronary artery of andreafski heart without angina pectoris 06/25/2022 Presence of [...] Gastroesophageal reflux disease without esophagi tis 03/15/2019 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 11/25/2018 Paroxysmal atrial [...] as of this encounter (statuses as of 11/05/2023) Resolved Problems Problem Noted Date Diagnosed Date [...] 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,rt anglican 07/05/2002 05/26/2018 Rosacea 07/28/2001 05/26/2018 LOC PRIM [id number] 07/28/200106/2018 documented as of this encounter (statuses as of 11/05/2023) Immunizations Name Administration Dates Next Due COVID-19 [...] encounter Miscellaneous Notes * Telephone Encounter - Earlene Ladd PA-C - 11/05/2023 8:14 AM ESTSigned Prescriptions: Disp Refills Eliquis 5 MG Oral Tablet (Apixaban) 180 Ta*3 Sig: TAKE 1 TABLET BY MOUTH TWICE A DAY Authorizing Provider: EARLENE LADD * Telephone Encounter - Grace Krause COT - 11/05/2023 7:59 AM ESTPending Prescriptions: Disp Refills Eliquis 5 MG Oral Tablet (Apixaban) 180 Ta*3 Sig: TAKE 1 TABLET BY MOUTH TWICE A DAY * Telephone Encounter - Grace Krause COT - 11/05/2023 7:59 AM EST Did you pend patient's preferred pharmacy and medication before forwarding?yes Pharmacy: [facility][id number][facility] [address] [facility] Pending Prescriptions: Disp Refills Eliquis 5 MG Oral Tablet (Apixaban) [Phar*180 Ta*3 Sig: TAKE 1 TABLET BY MOUTH TWICE A DAY Last Visit: 07/28/2023 (in office), 01/31/2020 (telemedicine) Next Visit: Visit date not found If no future appointments scheduled, and last appointment is greater than a year ago, please schedule patient for a follow-up appointment Last date the medication was ordered: 11-17-2022 Is this request for a controlled substance?No [...] 9:00 AM EST Pharmacy Pharmacy Hematology Oncology [facility] [place] [address] [place] [address] [facility], [facility] Hem/Onc [address] [place] [address] 11/26/2023 10:30 AM EST Laboratory Laboratory [facility] [place] [address] [place] [phone] [place], Lab [facility] [address] [place] [address] 11/26/2023 11:30 AM EST Hem[facility] [address] [place] [address] 12/14/2023 8:00 AM EST Office Visit Hematology/Oncology [facility] [place] [address] [place] [address] Chito Garcia MD [address] [place] [address] 12/22/2023 2:00 PM EST Office Visit Pharmacy, [facility] [place] [address] [place] [address] Pharmacist1, [facility] [address] [facility] [place] [address] 01/17/2024 3:00 PM EDT Office Visit [facility] [address] [place] [address] [place] [address] Landen Macario, DO [address] [place] [address] 05/09/2024 3:20 PM EDT Office Visit [facility] [place] [address] [place] [address] Landen Macario, DO [address] [place] [address] Health Maintenance Due Date Last Done Comments [...] 03/02/2023, 07/0 02/2022, 07/08/2021, Additional history exists HbA1c 03/22/2024 09/21/2023, 05/19, 03/02/2023, Additional history exists GFR 05/04/2024 11/04/2023, 10/18, 10/25/2023, Additional history exists CKD PHOS USE SMARTSET 99980 09/21/2024 12/0 02/2023, 08/02/2023, 05/25/2023, Additional history exists CKD HGB USE SMARTSET 73166 10/29/202410/29, 10/29/2023, 10/25/2023, Additional history exists O2 [...] this encounter Medical Devices Implanted Type Area Biodiesel Processing Technician Device Identifier Shelf Expiration Date Model / Serial / Lot Lens Intraoc 24.0 - [id number] - [id number] Implanted:Qty: 1 on 08/16/2018 by Adan Colon MD at OR [facility] Right: Eye [employer] 11/17/2022 [id number] / [id number] / [id number] Lens Intraoc 24.0 - [id number] - [id number] Implanted:Qty: 1 on 08/23/2018 by Adan Colon MD at OR [facility] Left: Eye [employer]CH [employer]OMB 06/17/2023 [id number] / [id number] / [id number] Screw [employer] [id number] - [id number] Implanted:Qty: 1 on 12/07/2019 by Amilcar Saavedra MD at OR [facility] Left: Foot EXACTECH [id number] / / documented as of this encounter Visit Diagnoses Diagnosis Paroxysmal atrial fibrillation (HCC)- Primary Atrial fibrillation documented in this encounter Advance Directives Latest [...] and were consensually agreed upon. Care Teams Song Lyricist Relationship Specialty Start Date End Date Landen Macario DO [address] [place] [address] PCP - General Family Medicine 02/09/22 documented as of this encounter
--- OUTSIDE RECORDS SUMMARY | 2023-11-21 19:57 | External Medical Summary | Summary of Care ---
Author Name Unknown Organization [facility] Address [address] [place] [address] Phone [phone] Care Team Providers Care Customer Care Manager Name Role Phone Landen Macario Primary Care Provider [phone] Reason for Visit * Reason Comments Diabetes Follow-Up Dosage Adjustment In Person (Anticoag Cl inic) Encounter Details Date Type Department Care Team (Late st Contact Info) Description 11/18/2023 4:00 PM [facility] Pharmacy Pharmacy, [place] [address] [place] [address] [facility] [address] [place] [address] Type 2 diabetes mellitus with hemoglobin A1c goal of less than 8.0% ([facility])* Allergies Active Allergy Reactions Criticality Noted Date Comments Tizanidine 06/27/2021 documented as of this encounter (statuses as of 11/18/2023) Medications Medication Sig Dispensed Refills Start Date [...] or Wheezing. 18 g 3 04/03/2022 Active Q61-Vnikjj 1 MG Oral Tablet Chewable (Methylcobalamin) Take [...] 1 Each 3 03/04/2023 Active Dexcom G7 Area Operations Director Device Use to check blood sugar [...] 8.0% ([facility]) USE DIRECTED WITH insulins 500 Each 3 04/18/2023 Active Digoxin 125 MCG Oral Tablet (Lanoxin) Take 1 Tablet by mouth every other day. 90 Tablet 3 05/19/2023 Active Ondansetron HCl 8 MG Oral Tablet (Zofran)Indications :Multiple myeloma not having achieved remission ([facility]) Take 1 Tablet by mouth every 8 [...] of less than 8.0% ([facility]) INJECT 40 UNITS , SUBCUTANEOUSLY, EVERY DAY. PLUS DIRECTED FOR 3 DAYS AROUND CHEMO. 45 mL 3 11/16/2023 Active documented as of this encounter (statuses as of 11/18/2023) Active Problems Problem Noted Date Diagnosed Date COPD, group B, by GOLD 2017 classification 09/27 Overview: Per COPD GOLD Classification Chronic kidney disease, stage 3a 08/30/2023 Overview: Per CKD protocol Protein-calorie malnutrition 08/02/2023 ILD (interstitial lung disease) 06/14/2023 Chronic systolic (congestive) heart failure 05/2022 Coronary artery disease invo lving [place] coronary artery of [place] heart without angina pectoris 06/25/2022 Presence of [...] Gastroesophageal reflux disease without esophagi tis 03/15/2019 senior living (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 of insulin 11/25/2018 Paroxysmal atrial [...] as of this encounter (statuses as of 11/18/2023) Resolved Problems Problem Noted Date Diagnosed Date [...] of inactive term lentigo maligna,rt nondenominational 07/05/2002 05/26/2018 Rosacea 07/28/2001 05/26/2018 LOC PRIM [id number] 07/28/200106/2018 documented as of this encounter (statuses as of 11/18/2023) Immunizations Name Administration Dates Next Due COVID-19 mRNA, LNP-s, No Pre serve, 2-Dose Series (Moderna) 08/27/2021,01/04/2021,12/02/2020 COVID-19, mRNA, LNP-s, PF, B ooster, 100mcg/0.5mg (Moderna) 05/07/2022 Covid-19, Mrna, Lnp-s, Pf, B ivalent, 30 Mcg, IM, 12 yrs and above ([employer]) 09/04/2022 H1N1 2009 Influenza, IM 09/22/2009 PPD [...] of this encounter Progress Notes * Filipe Royal RPh - 11/18/2023 3:58 PM EST Patient here for help getting Dexcom paired with his new phone. Unable to connect to his account. He will make an account and login. He will then be able to connect sensor to phone. Filipe Moya RPh, [facility] Clinical Pharmacist Medication Therapy Management Clinic 11/18/2023, 3:58 PM documented in this encounter Plan of Treatment Upcoming Encounters Date Type Department Care Team (Late st Contact Info) Description 11/26/2023 9:00 AM EST Pharmacy Pharmacy Hematology Oncology [place] [address] [place] [facility] [place] [address] [facility] [place] Hem/Onc [address] [place] [address] 11/26/2023 10:30 AM EST Laboratory Laboratory [place] [facility]leen C[facility]denas [address] [place] [id number] [place], Lab Scenery [address] [place] [address] 11/26/2023 11:30 AM EST Hem/Onc Treatment Hematology/Oncology Treatment, [place] [address] [place] [address] 12/14/2023 8:00 AM EST Office Visit Hematology/Oncology [facility] [address] [place] [address] Chito Garcia MD [address] [place] [address] 12/22/2023 2:00 PM EST Pharmacy Pharmacy, [facility] [place] [address] [place] [address] Pharmacist1, [facility] Sp [address] [facility] [place] [address] 01/17/2024 3:00 PM EDT Office Visit Family Practice [facility] [address] [place] [address] Landen Macario, DO [address] [place], [place] [address] 05/09/2024 3:20 PM EDT Office Visit [facility] [place] [address] [place] [address] Landen Macario, DO 200 [facility] [place] [address] Health Maintenance Due Date Last Done Comments [...] 01/05/2024 01/04/2023, 10/08/2022, 05/15/2022 B-12 03/02/2024 03/02/2023, 02/2022, 07/08/2021, Additional history exists HbA1c 03/22/2024 09/21/2023, 05/19, 03/02/2023, Additional history exists GFR 05/04/2024 11/04/2023, 10/18, 10/25/2023, Additional history exists CKD PHOS USE SMARTSET 21950 09/21/2024 1202/2023, 08/02/2023, 05/25/2023, Additional history exists CKD HGB USE SMARTSET 43885 10/29/202410/29, 10/29/2023, 10/25/2023, Additional history exists O2 [...] this encounter Medical Devices Implanted Type Area Production Assembler Device Identifier Shelf Expiration Date Model / Serial / Lot Lens Intraoc 24.0 - [id number] - [id number] Implanted:Qty: 1 on 08/16/2018 by Adan Colon MD at OR [facility] Right: Eye BAUSCH [employer] LOMB 11/17/2022 [id number] / [id number] / [id number] Lens Intraoc 24.0 - [id number] - [id number] Implanted:Qty: 1 on 08/23/2018 by Adan Colon MD at OR [facility] Left: Eye BAUSCH & LOMB 06/17/2023 [id number] / [id number] / [id number] Screw [employer] [id number] - [id number] Implanted:Qty: 1 on 12/07/2019 by Amilcar Saavedra MD at OR [facility] Left: Foot EXACTECH [id number] / / documented as of this encounter [...] and were consensually agreed upon. Care Teams Customer Care Manager Relationship Specialty Start Date End Date Landen Macario DO 200 [facility] [place] [address] PCP - General Family Medicine 02/09/22 documented as of this encounter
--- OUTSIDE RECORDS SUMMARY | 2023-11-21 19:57 | External Medical Summary | Summary of Care ---
Author Name Unknown Organization [facility] Address [address] [place] [address] Phone [phone] Care Team Providers Care Patrol Community Service Officer Name Role Phone Landen Macario Primary Care Provider [phone] Reason for Visit * Reason Comments Medication Management Encounter Details Date Type Department Care Team (Late st Contact Info) Description 11/04/2023 1:15 PM [facility] Pharmacy Pharmacy Hematology Oncology [facility] [address], [place] [phone] [place], [facility] Hem/Onc [address] [place], [place] [id number] Multiple myeloma not having achieved remission (HCC)* Allergies Active Allergy Reactions Criticality Noted Date Comments Tizanidine 06/27/2021 documented as of this encounter (statuses as of 11/04/2023) Medications Medication Sig Dispensed Refills Start Date [...] or Wheezing. 18 g 3 04/03/2022 Active X10-Jpijqs 1 MG Oral Tablet Chewable (Methylcobalamin) Take [...] 1 Each 3 03/04/2023 Active Dexcom G7 Supervisor Laundry Device Use to check blood sugar 1 [...] WITH insulins 500 Each 3 04/18/2023 Active Klor-Con M20 20 MEQ Oral Tablet [...] day cycle 21 Capsule 0 11/02/2023 Active documented as of this encounter (statuses as of 11/04/2023) Active Problems Problem Noted Date Diagnosed Date COPD, group B, by GOLD 2017 classification 09/27 Overview: Per COPD GOLD Classification Chronic kidney disease, stage 3a 08/30/2023 Overview: Per CKD protocol Protein-calorie malnutrition 08/02/2023 ILD (interstitial lung disease) 06/14/2023 Chronic systolic (congestive) heart failure 05/2022 Coronary artery disease invo lving [place] coronary artery of [place] heart without angina pectoris 06/25/2022 Presence of [...] Gastroesophageal reflux disease without esophagi tis 03/15/2019 retirement (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 of insulin 11/25/2018 Paroxysmal atrial [...] as of this encounter (statuses as of 11/04/2023) Resolved Problems Problem Noted Date Diagnosed Date [...] of inactive term lentigo maligna,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 - 11/04/2023 2:30 PM EST MEDICATION THERAPY MANAGEMENT LENALIDOMIDE (REVLIMID) TREATMENT PROGRESS NOTE Dev Hernandez [phone] Patient Phone Numbers Communication: Spoke to: Patient Treatment: Medication: Lenalidomide (Revlimid) Indication/Staging/Diagnosis Code: Multiple Myeloma Dose: 10mg daily D1-21 every 28 days Administration: +/- food Start Date: 09/17/22 Primary Psychologist Military Personnel/Oncologist: Dr. Garcia Additional Therapy: Daratumumab Dexamethasone Supportive Care Meds: Ondansetron Prochlorperazine Prophylactic Meds: Acyclovir Apixaban ASA Current cycle 11/26 - Next cycle 12/23 - 01/12 (anticipated) Dose adjustment / medication hold: 05/25/23-10/28/23: DaraRd held due to declining performance status 05/25/23-11/25/23: Lenalidomide held Interval History: Pt previously on lenalidomide 09/15/21-05/06/22 as Vrd Per OV 09/20/23, continue to HOLD treatment. "The decision about resuming treatment will depend on his overall performance status and status of the wound in the left lower extremity." Per OV 10/25/23, resume DaraRd Per TE 11/02/23 addendum 11/04/23, lenalidomide shipped 11/02/23 Pt confirms receiving lenalidomide today and inquiring when to resume therapy Changes to medication list since last visit? No Assessment and Plan: Advised pt to wait until next daratumumab treatment to resume lenalidomide as all treatment can be started the same day. Advised pt to keep lenalidomide stored in cool, dry area until labs reviewed 11/26 Pt repeated instructions back and is agreeable with plan MTM to follow up 11/26 to assess pre-cycle labs Assessment of compliance: compliant Assessment of adverse effects attributed to drug therapy: N/A Dose adjustment needed based on lab or adverse drug reaction? Yes, resume Follow up: 11/26 Poly Tam, PharmD, BCOP Clinical Pharmacist, [facility] Oral Chemotherapy [facility] 11/04/2023, 2:39 PM Time Spent on Encounter: 6 - 10 minutes Encounter Group: Hematology Encounter Interventions Item Category: Oral Chemotherapy Lenalidomide Problem/Rationale: Safety: Needs additional monitoring - Medication Requires monitoring Pharmacist Intervention(s): Disease management Magnitude of Intervention: Modification of medication for asymtomatic patients (Level 2) documented in this encounter Plan of Treatment Upcoming Encounters Date Type Department Care Team (Late st Contact Info) Description 11/26/2023 9:00 AM EST Pharmacy Pharmacy Hematology Oncology [address] [address] [place], [facility] Hem/Onc [address] [place] [address] 11/26/2023 10:30 AM EST Laboratory Laboratory [facility] [place] [address] [phone] [place], Lab [address] [place] [address] 11/26/2023 11:30 AM EST Hem/Onc Treatment Hematology/Oncology Treatment, [place] [address] [place] [address] 12/14/2023 8:00 AM EST Office Visit Hematology/Oncology [facility] [place] [address] [place] [address] Chito Garcia MD [address] [place] [address] 12/22/2023 2:00 PM EST Office Visit Pharmacy, [facility] [place] [address] [place] [address] [address] Pharmacist1, [facility] Sp [address] [facility] [place] [address] 01/17/2024 3:00 PM EDT Office Visit [facility] [place] [address] [place] [address] Landen Macario, DO [address] [facility] [place] [address] 05/09/2024 3:20 PM EDT Office Visit [facility] [place] [address] [place] [address] Landen Macario, DO [address] [place] [address] Health Maintenance Due Date Last Done Comments [...] 07/08/2021, Additional history exists HbA1c 03/22/2024 09/21/2023, 08/2 05/2023, 03/02/2023, Additional history exists GFR 04/28/2024 10/29/2023, 05/2024, 09/21/2023, Additional history exists CKD PHOS USE SMARTSET 61849 09/21/202402/2023, 08/02/2023, 05/25/2023, Additional history exists CKD HGB USE SMARTSET 03938 10/29/202410/29, 10/29/2023, 10/25/2023, Additional history exists O2 [...] this encounter Medical Devices Implanted Type Area Market Asset Protection Manager Device Identifier Shelf Expiration Date Model / Serial / Lot Lens Intraoc 24.0 - [id number] - [id number] Implanted:Qty: 1 on 08/16/2018 by Adan Colon MD at OR [facility] Right: Eye BAUSCH [employer] LOMB 11/17/2022 [id number] / [id number] / [id number] Lens Intraoc 24.0 - [id number] - [id number] Implanted:Qty: 1 on 08/23/2018 by Adan Colon MD at OR [facility] Left: Eye BAUSCH & LOMB 06/17/2023 [id number] / [id number] / [id number] Screw [employer] [id number] - [id number] Implanted:Qty: 1 on 12/07/2019 by Amilcar Saavedra MD at OR [facility] Left: Foot EXACTECH [id number] / / documented as of this encounter [...] and were consensually agreed upon. Care Teams Patrol Community Service Officer Relationship Specialty Start Date End Date Landen Macario DO [address] [place] [address] PCP - General Family Medicine 02/09/22 documented as of this encounter
--- OUTSIDE RECORDS SUMMARY | 2023-11-21 19:57 | External Medical Summary | Summary of Care ---
Author Name Unknown Organization [facility] Address [address] [facility] [address] Phone [phone] Care Team Providers Care Gear Machine Operator General Name Role Phone Landen Macario DO Primary Care Provider [phone] Reason for Visit * Reason Onset Date Comments Health Maintenance 11/19/2023 Encounter Details Date Type Department Care Team (Late st Contact Info) Description 11/19/2023 Telephone Family Practice [facility] [place] [address] [facility] [place] [address] Landen Macario DO [address] [facility] [place] [address] Health Maintenance Allergies Active Allergy Reactions Criticality Noted Date Comments Tizanidine 06/27/2021 documented as of this encounter (statuses as of 11/19/2023) Medications Medication Sig Dispensed Refills Start Date [...] or Wheezing. 18 g 3 04/03/2022 Active X85-Turgfz 1 MG Oral Tablet Chewable (Methylcobalamin) Take [...] 1 Each 3 03/04/2023 Active Dexcom G7 Campus Police Officer Device Use to check blood sugar 1 [...] of less than 8.0% ([facility]) USE DIRECTED WITH insulins 500 Each 3 04/18/2023 Active Digoxin 125 MCG Oral Tablet (Lanoxin) Take 1 Tablet by mouth every other day. 90 Tablet 3 05/19/2023 Active Ondansetron HCl 8 MG Oral Tablet (Zofran)Indications :Multiple myeloma not having achieved remission ([facility]) Take 1 Tablet by mouth every 8 [...] of less than 8.0% ([facility]) INJECT 40 UNITS , SUBCUTANEOUSLY, EVERY DAY. PLUS DIRECTED FOR 3 DAYS AROUND CHEMO. 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 03/03/2022 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 03/03/2022 Metastatic cancer to bone 10/22/2021 Acute systolic congestive heart failure 10/08/20 Multiple myeloma not having achieved remission 1 10/28/2020 Diabetic peripheral neuropat hy associated with type 2 diabetes mellitus 09/08/2019 Gastroesophageal reflux disease without esophagi tis 03/15/2019 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 11/25/2018 Paroxysmal atrial [...] as of this encounter (statuses as of 11/19/2023) Resolved Problems Problem Noted Date Diagnosed Date [...] of inactive term lentigo maligna,rt mandaeism 07/05/2002 05/26/2018 Rosacea 07/28/2001 05/26/2018 LOC PRIM [id number]-[id number] 07/28/200106/2018 documented as of this encounter (statuses as of 11/19/2023) Immunizations Name Administration Dates Next Due COVID-19 [...] encounter Miscellaneous Notes * Telephone Encounter - Dayana Bueno LPN - 11/19/2023 1:17 PM EST Care Gaps Comprehensive Care Outreach Last Office/Telemedicine Visit: 10/13/2023 (in office), Visit date not found (telemedicine) Next Office Visit: 01/17/2024 Hemoglobin AIC Results: Lab Results Component Value Date/Time HEMOGLOBIN A1C - [facility] 6.1 (H) 09/21/2023 01:41 PM HEMOGLOBIN A1C - [facility] 5.3 03/02/2023 08:41 AM HEMOGLOBIN A1C - [facility] 6.8 (H) 01/04/2023 10:32 AM HEMOGLOBIN A1C - [facility] 6.5 (H) 09/16/2020 12:55 PM HEMOGLOBIN A1C - [facility] 6.8 (H) 03/29/2020 11:17 AM HEMOGLOBIN A1C - [facility] 6.3 (H) 09/05/2019 10:54 AM HEMOGLOBIN A1C POCT - [facility] 6.6 (H) 06/14/2023 01:35 PM BP Readings from Last 1 Encounters: 10/29/23 101/59 Reviewed Health Maintenance below: Health Maintenance Topic Date Due Alpha-1 Antitrypsin Never done Hepatitis B (3 of 3 - Risk 3-dose series) 04/17/1994 Zoster Vaccines (2 of 2) 02/21/2013 Pneumococcal Vaccine: 65+ Years (3 - PPSV23 or PCV20) 03/01/2018 Albumin/Creatinine Ratio 12/14/2019 Diabetic Foot Exam 09/16/2021 Depression Screening 05/20/2023 Diabetic Eye Exam 09/09/2023 DIG LEVEL FOR MEDICATION MONITORING YEARLY 01/05/2024 Eye Urine ordered Care Gap Outreach Action Taken: Spoke to patient documented in this encounter Plan of Treatment Upcoming Encounters Date Type Department Care Team (Late st Contact Info) Description 11/26/2023 9:00 AM EST Pharmacy Pharmacy Hematology Oncology [facility] [address] [place] [address] [place], [facility] Hem/Onc [address] [place] [address] 11/26/2023 10:30 AM EST [facility] [employer] [address] [place] [id number] [place], Lab [facility] [address] [place] [address] 11/26/2023 11:30 AM EST Hem/Onc Treatment Hematology/Oncology Treatment, [place] [address] [place] [address] 12/14/2023 8:00 AM EST Office [facility] [employer] [address] [place] [address] Chito Garcia MD [address] [place] [address] 12/22/2023 2:00 PM EST Pharmacy Pharmacy, [facility] [place] [address] [place] [address] Pharmacist1, [facility] Sp [address] [place] [address] 01/17/2024 3:00 PM EDT Office Visit Family Practice [facility] [place] [address] [place] [address] Landen Macario, DO [address] [place] [address] 05/09/2024 3:20 PM EDT Office Visit Family Practice [place] [employer] [address] [facility] [place] [address] Landen Macario DO [address] [facility] [place] [address] Scheduled Orders Name Type Priority Associated Diagnoses Orde r Schedule ALBUMIN / CREATININE RATIO, URINE Lab Routine Screening for nephropathy Expected: 11/19/2023, Expires: 11/19/2024 Health Maintenance Due Date Last Done Comments [...] Additional history exists CKD PHOS USE SMARTSET 34012 09/21/2024 12/0 02/2023, 08/02/2023, 05/25/2023, Additional history exists CKD HGB USE SMARTSET 30069 10/29/202410/29, 10/29/2023, 10/25/2023, Additional history exists O2 [...] this encounter Medical Devices Implanted Type Area Assistant Accounting Manager Device Identifier Shelf Expiration Date Model / Serial / Lot Lens Intraoc 24.0 - [id number] - [id number] Implanted:Qty: 1 on 08/16/2018 by Adan Colon MD at OR [facility] Right: Eye BA[employer]CH [employer]OMB 11/17/2022 [id number] / [id number] / [id number] Lens Intraoc 24.0 - [id number] - [id number] Implanted:Qty: 1 on 08/23/2018 by Adan Colon MD at OR [facility] Left: Eye BAUSCH & LOMB 06/17/2023 [id number] / [id number] / [id number] Screw [employer] 3.9sop41fz - [id number] Implanted:Qty: 1 on 12/07/2019 by Amilcar Saavedra MD at OR [facility] Left: Foot EXACTECH [id number] / / documented as of this encounter Visit Diagnoses Diagnosis Screening for nephropathy- Primary documented in this encounter Advance Directives [...] and were consensually agreed upon. Care Teams Gear Machine Operator General Relationship Specialty Start Date End Date Landen Macario DO [address] [place] [address] PCP - General Family Medicine 02/09/22 documented as of this encounter
--- OUTSIDE RECORDS SUMMARY | 2023-11-21 19:57 | External Medical Summary | Summary of Care ---
Author Name Unknown Organization [facility] Address [address] [facility] [address] Phone [phone] Care Team Providers Care Marketing Data Specialist Name Role Phone Landen Macario DO Primary Care Provider [phone] Reason for Visit * Reason Onset Date Comments Home Health 08/12/2023 Encounter Details Date Type Department Care Team (Late st Contact Info) Description 08/12/2023 Telephone Family Practice [facility] [place] [address] [facility] [place] [address] Landen Macario DO [address] [facility] [place] [address] Home Health Allergies Active Allergy Reactions Criticality Noted Date Comments Tizanidine 06/27/2021 documented as of this encounter (statuses as of 11/11/2023) Medications Medication Sig Dispensed Refills Start Date [...] or Wheezing. 18 g 3 04/03/2022 Active Y99-Dddhdy 1 MG Oral Tablet Chewable (Methylcobalamin) Take [...] 1 Each 3 03/04/2023 Active Dexcom G7 Scale Assembly Set Up Worker Device Use to check blood sugar 1 [...] 8.0% ([facility]) USE DIRECTED WITH insulins 500 Each 3 04/18/2023 Active Digoxin 125 MCG Oral Tablet (Lanoxin) Take 1 Tablet by mouth every other day. 90 Tablet 3 05/19/2023 Active Ondansetron HCl 8 MG Oral Tablet (Zofran)Indications :Multiple myeloma not having achieved remission ([facility]) Take 1 Tablet by mouth every 8 [...] as of this encounter (statuses as of 11/11/2023) Active Problems Problem Noted Date Diagnosed Date COPD, group B, by GOLD 2017 classification 09/27 Overview: Per COPD GOLD Classification Chronic kidney disease, stage 3a 08/30/2023 Overview: Per CKD protocol Protein-calorie malnutrition 08/02/2023 ILD (interstitial lung disease) 06/14/2023 Chronic systolic (congestive) heart failure 05/2022 Coronary artery disease invo lving [place] coronary artery of [place] heart without angina pectoris 06/25/2022 Presence of [...] Gastroesophageal reflux disease without esophagi tis 03/15/2019 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 Colleen Nieves DO * Telephone Encounter - Nicki Bello LPN - 08/12/2023 2:12 PM EDT HH Concerns Vani ESTRADA, Calling from: [facility] Report/Concerns of: Seeping wound. Left plantar foot. It Symptoms: none Vitals: T 97.8 P 77 RR 16 BP 110/64 SP O2 98 on room air Lung sounds clear Weight n/a Blood sugar 131 Narrative: Wound had been staying the same. They were going to discharge him. But from this weeks picture compared to last week picture, they are asking for more visits. It has changed shape and it is seeping. Will keep the dressing the same. Currently [facility] with dry dressing. Keep him on for weekly visits. See's the wound clinic next week. Will fax over orders. Call back Vani with any advice or orders at [phone] Please fax new orders to [phone] documented in this encounter Plan of Treatment Upcoming Encounters Date Type Department Care Team (Late st Contact Info) Description 11/26/2023 9:00 AM EST Pharmacy Pharmacy Hematology Oncology [facility] [address] [place] [address] Gm, [facility] Hem/Onc [address] [place] [address] 11/26/2023 10:30 AM EST Laboratory Laboratory [facility] [place] [address] [place] [id number] [place] [facility] [address] [place] [address] 11/26/2023 11:30 AM EST Hem/Onc Treatment Hematology/Oncology Treatment, [place] [address] [place] [address] 12/14/2023 8:00 AM EST Office Visit Hematology/Oncology [facility] [place] [address] [place] [address] Chito Garcia MD [address] [place] [address] 12/22/2023 2:00 PM EST Office Visit Pharmacy, [facility] [place] [address] [place] [address] Pharmacist1, [facility] Sp [address] [facility] [place] [address] 01/17/2024 3:00 PM EDT Office Visit Family Practice [facility] [place] [address] [place] [address] Ladnen Macario, DO [address] [facility] [place] [address] 05/09/2024 3:20 PM EDT Office Visit Family Practice [place] C[facility]den[place] [address] [facility] [place] [address] Landen Macario DO [address] [facility] [place] [address] Health Maintenance Due Date Last Done Comments [...] Additional history exists CKD PHOS USE SMARTSET 70406 09/21/2024 12/0 02/2023, 08/02/2023, 05/25/2023, Additional history exists CKD HGB USE SMARTSET 63769 10/29/202410/29, 10/29/2023, 10/25/2023, Additional history exists O2 [...] this encounter Medical Devices Implanted Type Area Pbx Operator Device Identifier Shelf Expiration Date Model / Serial / Lot Lens Intraoc 24.0 - [id number] - [id number] Implanted:Qty: 1 on 08/16/2018 by Adan Colon MD at OR [facility] Right: Eye [employer]OMB 11/17/2022 [id number] / [id number] / [id number] Lens Intraoc 24.0 - [id number] - [id number] Implanted:Qty: 1 on 08/23/2018 by Adan Colon MD at OR [facility] Left: Eye BAUSCH & LOMB 06/17/2023 [id number] / [id number] / [id number] Screw [employer] 3.9xwq54kg - [id number] Implanted:Qty: 1 on 12/07/2019 by Amilcar Saavedra MD at OR [facility] Left: Foot EXACTECH [id number] / / documented as of this encounter Additional Health Concerns Infection Onset Date Last Indicated Resolved Time Respiratory Rule-Out 09/20/2023 09/20/2023 023 5:19 PM EST documented as of this encounter Advance Directives [...] and were consensually agreed upon. Care Teams Marketing Data Specialist Relationship Specialty Start Date End Date Landen Macario DO [facility] [place] [address] PCP - General Family Medicine 02/09/22 documented as of this encounter
--- OUTSIDE RECORDS SUMMARY | 2023-11-21 19:57 | External Medical Summary | Summary of Care ---
Author Name Unknown Organization [facility] Address [address] [place] [address] Phone [phone] Care Team Providers Care Mechanic And Welder Name Role Phone AhsanLanden nava Primary Care Provider [phone] Reason for Visit * Reason Onset Date Comments Other 11/18/2023 Encounter Details Date Type Department Care Team (Late st Contact Info) Description 11/18/2023 Telephone Pharmacy Call Center [phone] [place] [address] Pharmacist1, [facility] [address] [place] [address] Other Allergies Active Allergy Reactions Criticality Noted Date [...] or Wheezing. 18 g 3 04/03/2022 Active G05-Biwoty 1 MG Oral Tablet Chewable (Methylcobalamin) Take [...] 1 Each 3 03/04/2023 Active Dexcom G7 Dresser Tender Device Use to check blood sugar 1 [...] hemoglobin A1c goal of less than 8.0% ([facility]) USE DIRECTED WITH insulins 500 Each 3 04/18/2023 Active Digoxin 125 MCG Oral Tablet (Lanoxin) Take 1 Tablet by mouth every other day. 90 Tablet 3 05/19/2023 Active Ondansetron HCl 8 MG Oral Tablet (Zofran)Indications :Multiple myeloma not having achieved remission ([facility]) Take 1 Tablet by mouth every 8 [...] hemoglobin A1c goal of less than 8.0% ([facility]) INJECT 40 UNITS , SUBCUTANEOUSLY, EVERY DAY. [...] failure 05/2022 Coronary artery disease invo lving [place] coronary artery of [place] heart without angina pectoris 06/25/2022 Presence of [...] Gastroesophageal reflux disease without esophagi tis 03/15/2019 care home (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 of insulin 11/25/2018 Paroxysmal atrial [...] of inactive term lentigo maligna,rt jewish 07/05/2002 05/26/2018 Rosacea 07/28/2001 05/26/2018 LOC PRIM [id number] 07/28/200106/2018 documented as of this encounter (statuses as of 11/18/2023) Immunizations Name Administration Dates Next Due COVID-19 mRNA, LNP-s, No Pre serve, 2-Dose Series (Moderna) 08/27/2021,01/04/2021,12/02/2020 COVID-19, mRNA, LNP-s, PF, B ooster, 100mcg/0.5mg (Moderna) 05/07/2022 Covid-19, Mrna, Lnp-s, Pf, B ivalent, 30 Mcg, IM, 12 yrs and above ([employer]) 09/04/2022 H1N1 2009 Influenza, IM 09/22/2009 PPD [...] encounter Miscellaneous Notes * Telephone Encounter - Filipe Royal RPh - 11/18/2023 1:50 PM EST Patient Phone Numbers Caller's name: Dev Preferred call back number(OFFICE NUMBER FOR ): [phone] Reason for call: Pt having issues pairing the Dexcom to his phone. He would like to speak to the [facility] . Please advise and return his call. Patient coming to clinic at 4 PM to get help. Filipe Moya RP, [facility] Clinical Pharmacist Medication Therapy Management [facility] 11/18/2023, 1:52 PM * Telephone Encounter - Alicia Joseph PHARM Tech - 11/18/2023 1:45 PM EST Caller's name: Dev Preferred call back number(OFFICE NUMBER FOR ): [phone] Reason for call: Pt having issues pairing the Dexcom to his phone. He would like to speak to the [facility] . Please advise and return his call. Thank you, Alicia Joseph Bobbin Handler [facility] 11/18/2023,1:45 PM documented in this encounter Plan of Treatment Upcoming Encounters Date Type Department Care Team (Late st Contact Info) Description 11/18/2023 4:00 PM EST Pharmacy Pharmacy, [facility] [address] [place] [facility] [place] [address] [facility] [address] [place] [facility] [place] [address] 11/26/2023 9:00 AM EST Pharmacy Pharmacy Hematology Oncology [facility] [address] [place] [address] Gm, [facility] Hem/Onc [address] [place] [address] 11/26/2023 10:30 AM EST Laboratory Laboratory [facility] [place] [address] [place] [id number] [place], Lab [facility] [address] [facility] [place] [address] 11/26/2023 11:30 AM EST Hem/Onc Treatment Hematology/Oncology Treatment, [place] [address] [place] [address] 12/14/2023 8:00 AM EST Office Visit Hematology/Oncology [facility] [place] [address] [place] [address] Chito Garcia MD [address] [place] [address] 12/22/2023 2:00 PM EST Pharmacy Pharmacy, [facility] [place] [address] [place] [address] Pharmacist1, [facility] [place] [address] [address] 01/17/2024 3:00 PM EDT Office Visit Family Practice [facility] [place] [address] [place] [address] Landen Macario, DO [address] [place], [place] [address] 05/09/2024 3:20 PM EDT Office Visit Family Practice Jayme Ramirez [place] [address] [facility] [place] [address] Landen Macario DO [address] [facility] [place] [address] Health Maintenance Due Date Last Done Comments [...] Additional history exists CKD PHOS USE SMARTSET 83545 09/21/2024 12/0 02/2023, 08/02/2023, 05/25/2023, Additional history exists CKD HGB USE SMARTSET 27373 10/29/202410/29, 10/29/2023, 10/25/2023, Additional history exists O2 [...] this encounter Medical Devices Implanted Type Area Alteration Tailor Apprentice Device Identifier Shelf Expiration Date Model / Serial / Lot Lens Intraoc 24.0 - [id number] - [id number] Implanted:Qty: 1 on 08/16/2018 by Adan Colon MD at OR [facility] Right: Eye BA[employer]CH [employer] LOMB 11/17/2022 [id number] / [id number] / [id number] Lens Intraoc 24.0 - [id number] - [id number] Implanted:Qty: 1 on 08/23/2018 by Adan Colon MD at OR [facility] Left: Eye BAUSCH & LOMB 06/17/2023 [id number] / [id number] / [id number] Screw [employer] 3.0xpt69sd - [id number] Implanted:Qty: 1 on 12/07/2019 by Amilcar Saavedra MD at OR [facility] Left: Foot EXACTECH [id number] / / documented as of this encounter [...] and were consensually agreed upon. Care Teams Mechanic And Welder Relationship Specialty Start Date End Date Landen Macario DO 200 [place] [address] PCP - General Family Medicine 02/09/22 documented as of this encounter
--- OUTSIDE RECORDS SUMMARY | 2023-11-21 19:57 | External Medical Summary | Summary of Care ---
Author Name Unknown Organization [facility] Address [address] [facility] [address] Phone [phone] Care Team Providers Care Special Events Manager Name Role Phone Yassine Albert DO Primary Care Provider [phone] Reason for Visit * Reason Comments eRx-Medication Refill Encounter Details Date Type Department Care Team (Late st Contact Info) Description 11/11/2023 Refill Family Practice [facility] [address] [facility] [place] [address] Yassine Albert DO [address] [place] [address] Allergies Active Allergy Reactions Criticality Noted Date [...] or Wheezing. 18 g 3 2 Active W49-Mncqxj 1 MG Oral Tablet Chewable (Methylcobalamin) Take [...] 1 Each 3 3 Active Dexcom G7 Intake Coordinator Device Use to check blood sugar 1 [...] A1c goal of less than 8.0% ([facility]) USE DIRECTED WITH insulins 500 Each 3 3 Active Digoxin 125 MCG Oral Tablet (Lanoxin) Take 1 Tablet by mouth every other day. 90 Tablet 3 3 Active Ondansetron HCl 8 MG Oral Tablet (Zofran)Indicatio ns:Multiple myeloma not having achieved remission ([facility]) Take 1 Tablet by [...] A DAY 180 Tablet 3 4 Active Klor-Con M20 20 MEQ Oral Tablet Extended Release (Potassium Chloride ER) TAKE 1 TABLET BY MOUTH IN THE MORNING AND BEFORE BEDTIME 180 Tablet 3 4 Active Klor-Con M20 20 MEQ Oral Tablet Extended Release (Potassium Chloride ER) TAKE 1 TABLET BY MOUTH IN THE MORNING AND BEFORE BEDTIME 180 Tablet 1 3 11/11/19 24 Discontinued documented as of this encounter (statuses as of 11/11/2023) Active Problems Problem Noted Date Diagnosed Date COPD, group B, by GOLD 2017 classification 09/27 Overview: Per COPD GOLD Classification Chronic kidney disease, stage 3a 08/30/2023 Overview: Per CKD protocol Protein-calorie malnutrition 08/02/2023 ILD (interstitial lung disease) 06/14/2023 Chronic systolic (congestive) heart failure 05/2022 Coronary artery disease invo lving [place] coronary artery of [place] heart without angina pectoris 06/25/2022 [...] Gastroesophageal reflux disease without esophagi tis 03/15/2019 [facility] (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 of insulin 11/25/2018 Paroxysmal atrial [...] of inactive term lentigo maligna,rt catholic 07/05/2002 05/26/2018 Rosacea 07/28/2001 05/26/2018 LOC PRIM [id number] 07/28/200106/2018 documented as of this encounter (statuses [...] encounter Miscellaneous Notes * Telephone Encounter - Kaela Dennis RPh - 11/11/2023 2:52 PM ESTSigned Prescriptions: Disp Refills Klor-Con M20 20 MEQ Oral Tablet Extended R*180 Ta*3 Sig: TAKE 1 TABLET BY MOUTH IN THE MORNING AND BEFORE BEDTIMEAuthorizing Provider: YASSINE ALBERT User: KAELA DENNIS documented in this encounter Plan of Treatment Upcoming Encounters Date Type Department Care Team (Late st Contact Info) Description 11/26/2023 9:00 AM EST Pharmacy Pharmacy Hematology Oncology [place] [address] [place] [address] [facility] Hem/Onc [address] [place] [address] 11/26/2023 10:30 AM EST Laboratory Laboratory [place]issa C[facility]denas [address] [place] [phone] [place] [facility] [address] [place] [address] 11/26/2023 11:30 AM EST Hem/Onc Treatment Hematology/Oncology Treatment, [place] [address] [place] [address] 12/14/2023 8:00 AM EST Office Visit Hematology/Oncology [facility] [place] [address] [place] [address] Chito Garcia MD [address] [place] [address] 12/22/2023 2:00 PM EST Office Visit Pharmacy, [facility] [place] [address] [place] [address] Pharmacist1, [facility] Sp [address] [facility] [place] [address] 01/17/2024 3:00 PM EDT Office Visit Family Practice [facility] [place] [address] [place] [address] Yassine Albert, DO [address] [place] [address] 05/09/2024 3:20 PM EDT Office Visit Family Practice [facility] [place] [address] [place] [address] Yassine Albert, DO [address] [facility] [address] Health Maintenance Due Date Last Done Comments [...] Additional history exists CKD PHOS USE SMARTSET 67156 09/21/202402/2023, 08/02/2023, 05/25/2023, Additional history exists CKD HGB USE SMARTSET 13860 10/29/202410/29, 10/29/2023, 10/25/2023, Additional history exists O2 [...] this encounter Medical Devices Implanted Type Area Automated Access Systems Technician Device Identifier Shelf Expiration Date Model / Serial / Lot Lens Intraoc 24.0 - [id number] - [id number] Implanted:Qty: 1 on 08/16/2018 by Adan Colon MD at OR [facility] Right: Eye [employer]OM[employer] 11/17/2022 [id number] / [id number] / [id number] Lens Intraoc 24.0 - [id number] - [id number] Implanted:Qty: 1 on 08/23/2018 by Adan Colon MD at OR [facility] Left: Eye BAUSCH & LOMB 06/17/2023 [id number] / [id number] / [id number] Screw [employer] 3.3yij64bx - [id number] Implanted:Qty: 1 on 12/07/2019 by Amilcar Saavedra MD at OR [facility] Left: Foot EXACTECH [id number] / / documented as of this encounter [...] and were consensually agreed upon. Care Teams Special Events Manager Relationship Specialty Start Date End Date Yassine Albert DO [address] [place] [address] PCP - General Family Medicine 02/09/22 documented as of this encounter
--- OUTSIDE RECORDS SUMMARY | 2023-11-21 19:57 | External Medical Summary | Summary of Care ---
Author Name Unknown Organization [facility] Address [address] [facility] [address] Phone [phone] Care Team Providers Care Freight Brakeman Name Role Phone Landen Macario Primary Care Provider [phone] Reason for Visit * Reason Onset Date Comments Appointment 12/22/2022 Encounter Details Date Type Department Care Team (Late st Contact Info) Description 12/22/2022 Telephone Sleep Disorders Ctr [facility] [address] [facility] [place] [address] Lorenza Diana CRNP Appointment Allergies Active Allergy Reactions Criticality Noted Date [...] or Wheezing. 18 g 3 2 Active A68-Fttpui 1 MG Oral Tablet Chewable (Methylcobalamin ) [...] BEFORE BEDTIME 180 Tablet 2 3 Active TYLENOL ARTHRITIS PAIN 650 MG PO TBCR 2 po prn 0 7 03/02/20 23 Discontinued(Med ication List Clean Up) Ondansetron HCl 8 MG Oral Tablet (Zofran)Indicati ons:Multiple myeloma not having achieved remission (HCC) Take 1 Tablet by mouth every 8 hours as needed for Nausea. 30 Tablet 2 1 01/28/20 23 Discontinued(Ref ill) Prochlorperazine Maleate 10 MG Oral Tablet (Compazine)Indic ations:Multiple myeloma not having achieved remission (HCC) Take 1 Tablet by mouth every 6 hours as needed for Nausea. 30 Tablet 2 1 01/28/20 23 Discontinued(Ref ill) Docusate Sodium 100 MG Oral Capsule (Colace) Take 1 Capsule by mouth in the morning and 1 Capsule before bedtime. 0 03/02/20 23 Discontinued(Med ication List Clean Up) Polyethylene Glycol 3350 17 GM/SCOOP Oral Powder (Miralax) Take 17 g by mouth daily as needed. 0 03/02/20 Discontinued(Med ication List Clean Up) BD Pen Needle Short U/F 31G X 8 MM (Insulin Pen Needle)Indicatio ns:Type 2 diabetes mellitus with hemoglobin A1c goal of less than 8.0% (HCC) USE DIRECTED WITH SOLSTAR 100 Each 3 1 04/18/20 23 Discontinued Gabapentin 300 MG Oral Capsule (Neurontin) Take 1 Capsule by mouth every morning. 90 Capsule 11 2 06/14/20 23 Discontinued(Ref ill) Senna 8.6 MG Oral TabletIndication s:Constipation due to pain medication Take by mouth 2 Tablets before bedtime. 90 Tablet 0 2 07/23/20 23 Discontinued(Ref ill) oxygen IN GAS Use as directed 2 L/min(Oxygen) at bedtime . And with all and any sleep. 1 Each 0 2 02/05/20 23 Discontinued Ferrous Sulfate 325 (65 Fe) MG Oral Tablet (Feosol) Take 1 Tablet by mouth daily with breakfast. 0 03/02/20 Discontinued(Med ication List Clean Up) Digoxin 125 MCG Oral Tablet (Lanoxin) Take 1 Tablet by mouth every other day. 90 Tablet 3 2 05/18/20 23 Discontinued(Ref ill) Acyclovir 400 MG Oral Tablet (Zovirax)Indicat ions:Multiple myeloma not having achieved remission (HCC) Take by mouth 1 Tablet in the morning AND 1 Tablet before bedtime. 180 Tablet 1 2 02/02/20 23 Discontinued Atorvastatin Calcium 40 MG Oral Tablet (Lipitor)Indicat ions:Dyslipidemi a, goal LDL below 70 TAKE 1 TABLET BY MOUTH EVERY DAY 90 Tablet 1 2 02/02/20 23 Discontinued Nitroglycerin 0.4 MG Sublingual Tablet Sublingual (Nitrostat) Place 1 Tablet under the tongue every 5 minutes as needed for Pain, Chest. up to 3 doses in 15 minutes 25 Tablet 11 2 03/02/20 23 Discontinued(Med ication List Clean Up) NovoLOG FlexPen 100 UNIT/ML Subcutaneous Solution Pen-injector (insulin aspart)Indicatio ns:Type 2 diabetes mellitus with hemoglobin A1c goal of less than 8.0% (HCC) Inject 10 Units under the skin in the morning and 10 Units at noon and 10 Units in the evening. Inject with meals. Plus correction factor of 1:25 over 150. Max Daily Dose of 60 Units.. 60 mL 3 2 12/31/19 23 Discontinued Morphine Sulfate 15 MG Oral Tablet (Msir)Indication s:Cancer related pain Take 1 Tablet by mouth every 4 hours as needed for Pain, Severe. 90 Tablet 0 3 01/28/20 23 Discontinued(Ref ill) Potassium Chloride Raven ER 20 MEQ Oral Tablet Extended Release (Klor-Con M20) Take 1 Tablet by mouth in the morning and 1 Tablet before bedtime. 180 Tablet 1 3 05/17/20 23 Discontinued Eliquis 5 MG Oral Tablet (Apixaban) TAKE 1 TABLET BY MOUTH TWICE A DAY 60 Tablet 11 3 11/05/19 24 Discontinued Insulin Glargine Solostar 100 UNIT/ML Subcutaneous Solution Pen-injector (Basaglar KwikPen)Indicati ons:Type 2 diabetes mellitus with hemoglobin A1c goal of less than 8.0% (HCC) Inject 45 Units under the skin every night at bedtime. 45 mL 1 3 02/16/20 23 Discontinued(Ref ill) Lenalidomide 10 MG Oral Capsule (Revlimid)Indica tions:Multiple myeloma not having achieved remission (HCC) TAKE 1 CAPSULE BY MOUTH ONCE DAILY FOR 21 DAYS ON AND 7 DAYS OFF 21 Capsule 0 3 12/25/19 23 Discontinued Victoza 18 MG/3ML Subcutaneous Solution Pen-injector (Liraglutide)Ind ications:Type 2 diabetes mellitus with peripheral vascular disease (HCC) INJECT 1.2 MG UNDER THE SKIN ONCE DAILY 18 mL 1 3 02/16/20 23 Discontinued(Ref ill) Mirtazapine 15 MG Oral Tablet (Remeron)Indicat ions:Metastatic cancer to bone (HCC),Loss of weight Take 1 Tablet by mouth at bedtime. 30 Tablet 5 3 06/14/20 23 Discontinued Dexamethasone 4 MG Oral Tablet (Decadron)Indica tions:Multiple myeloma not having achieved remission (HCC) Take 20mg on days 1, 2, 8, 9, 15, 16, 22, 23 every 28 days 120 Tablet 1 3 07/23/20 23 Discontinued(Ref ill) Hospital, Clinic, or Other Facility Administered Medication Ordered Dose Route Frequency Start Date End Date Status Albuterol Sulfate (Proventil) (5 MG/ML) 0.5% *conc* inhalation solution 2.5 mgIndications:ILD (interstitial lung disease) (HCC),COPD, group A, by GOLD 2017 classification (HCC) 2.5 mg NEBULIZER PRN 04/03/2022 04/03/2023 Ende d Albuterol Sulfate (Proventil) (2.5 MG/3ML) 0.083% inhalation solution 2.5 mgIndications:ILD (interstitial lung disease) (HCC),COPD, group A, by GOLD 2017 classification ([facility]) 2.5 mg NEBULIZER PRN 04/03/2022 04/03/2023 Ende [...] failure 05/2022 Coronary artery disease invo lving [place] coronary artery of [place] heart without angina pectoris 06/25/2022 Presence of [...] Gastroesophageal reflux disease without esophagi tis 03/15/2019 emt intermediate (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 of insulin 11/25/2018 Paroxysmal atrial [...] 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,rt yazidism 07/05/2002 05/26/2018 Rosacea 07/28/2001 05/26/2018 LOC PRIM [id number] 07/28/200106/2018 documented as of this encounter (statuses [...] 0.6 oz pur e alcohol) very rare PHQ-2 Answer Date Recorded PHQ Adult Total Score 0 05/20/2022 Sex and Gender Information Value Date Recorded Sex Assigned at Not on file Gender Identity Not on file Sexual Orientation Not on file Job Start Date Occupation Industry Not on file Not on file Not on file documented as of this encounter Miscellaneous Notes * Telephone Encounter - Rafia Skinner, JENNIE - 11/16/2023 5:43 PM EST Pt seen by Dr Garcia on 01/11/23. * Telephone Encounter - Shelly Weaver, JENNIE - 01/01/2023 3:55 PM EDT Lmom to offer appt with Dr. Garcia * Telephone Encounter - Lorenza Diana CRNP - 12/22/2022 3:38 PM EST Please offer patient appt with Dr. Garcia. Recently had PFTs showing continued reduced DLCO. documented in this encounter Plan of Treatment Upcoming Encounters Date Type Department Care Team (Late st Contact Info) Description 11/26/2023 9:00 AM EST Pharmacy Pharmacy Hematology Oncology [facility] [address] [place] [address] [facility], [facility] Hem/Onc [address] [place] [address] 11/26/2023 10:30 AM EST Laboratory Laboratory State Marissa Cárdenas [address] [place] [id number] [place], Lab Scenery [address] [place] [address] 11/26/2023 11:30 AM EST Hem/Onc Treatment Hematology/Oncology Treatment, [place] [address] [place] [address] 12/14/2023 8:00 AM EST Office Visit Hematology/Oncology [facility] [address] [place] [address] Chito Garcia MD [address] [place] [address] 12/22/2023 2:00 PM EST Office Visit Pharmacy, [facility] [place] [address] [facility] [place] [address] Pharmacist1, [facility] [address] [facility] [place] [address] 01/17/2024 3:00 PM EDT Office Visit Family Practice [facility] [address] [place] [address] Landen Macario, DO 200 [facility] [place] [address] 05/09/2024 3:20 PM EDT Office Visit [facility] [place] [address] [place] [address] Landen Macario, DO [address] [facility] [place] [address] Health Maintenance Due Date Last Done Comments [...] Additional history exists CKD PHOS USE SMARTSET 52400 09/21/20240 02/2023, 08/02/2023, 05/25/2023, Additional history exists CKD HGB USE SMARTSET 99450 10/29/202410/29, 10/29/2023, 10/25/2023, Additional history exists O2 [...] this encounter Medical Devices Implanted Type Area Resident Advisor Device Identifier Shelf Expiration Date Model / Serial / Lot Lens Intraoc 24.0 - [id number] - [id number] Implanted:Qty: 1 on 08/16/2018 by Adan Colon MD at OR [facility] Right: Eye BAUSCH & LOMB 11/17/2022 [id number] / [id number] / [id number] Lens Intraoc 24.0 - [id number] - [id number] Implanted:Qty: 1 on 08/23/2018 by Adan Colon MD at OR [facility] Left: Eye BAUSCH & LOMB 06/17/2023 [id number] / [id number] / [id number] Screw [employer] [id number] - [id number] Implanted:Qty: 1 on 12/07/2019 by Amilcar Saavedra MD at [facility] Left: Foot EXACTECH [id number] / / documented as of this encounter [...] and were consensually agreed upon. Care Teams Freight Brakeman Relationship Specialty Start Date End Date Landen Macario DO [address] [place] [address] PCP - General Family Medicine 02/09/22 documented as of this encounter
--- OUTSIDE RECORDS SUMMARY | 2023-11-21 19:58 | External Medical Summary | Summary of Care ---
Author Name Unknown Organization [facility] Address [address] [place] [address] Phone [phone] Care Team Providers Care Information Systems Professor Name Role Phone Landen Macario Primary Care Provider [phone] Reason for Visit * Reason Onset Date Comments Advice 11/02/2023 Radha Encounter Details Date Type Department Care Team (Late st Contact Info) Description 11/02/2023 Telephone Access Center, [place] [address] [facility] *DO NOT REMOVE THIS DEPARTMENT* [place], [place] [id number] Services, Scheduling [address] [place] [address] Advice (Radha ) Allergies Active Allergy Reactions Criticality Noted Date Comments Tizanidine 06/27/2021 documented as of this encounter (statuses as of 11/02/2023) Medications Medication Sig Dispensed Refills Start Date [...] or Wheezing. 18 g 3 04/03/2022 Active I73-Lxbumq 1 MG Oral Tablet Chewable (Methylcobalamin) Take [...] 1 Each 3 03/04/2023 Active Dexcom G7 Sales And Training Specialist Device Use to check blood sugar [...] as of this encounter (statuses as of 11/02/2023) Active Problems Problem Noted Date Diagnosed Date COPD, group B, by GOLD 2017 classification 09/27 Overview: Per COPD GOLD Classification Chronic kidney disease, stage 3a 08/30/2023 Overview: Per CKD protocol Protein-calorie malnutrition 08/02/2023 ILD (interstitial lung disease) 06/14/2023 Chronic systolic (congestive) heart failure 05/2022 Coronary artery disease invo lving [place] coronary artery of [place] heart without angina pectoris 06/25/2022 Presence of [...] Gastroesophageal reflux disease without esophagi tis 03/15/2019 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 Please see other TE from 11/02/23 * Telephone Encounter - Glo Murillo RN - 11/02/2023 11:12 AM EST MTM: please send rx for brand revlimid Oral precert: please obtain auth for brand revlimid due to shortage of generic lenalidomide Thanks! * Telephone Encounter - Maureen Sheppard OSA - 11/02/2023 10:42 AM EST Jemima calling in from [facility] specialty pharmacy. Requesting doctor approve brand name with a DAW1. As there is a short term shortage of the generic brand. Please call Jemima back with a verbal or fax to [phone] Thank you. documented in this encounter Plan of Treatment Upcoming Encounters Date Type Department Care Team (Late st Contact Info) Description 11/04/2023 12:30 PM EST Laboratory Laboratory, [place] [address] [place] [facility] [place] [id number] [place], Laboratory [address] [place] [facility] [place] [address] 11/04/2023 1:15 PM EST Pharmacy Pharmacy Hematology Oncology [address] [id number] [facility] Hem/Onc [address] [facility] [address] 11/26/2023 10:30 AM EST Laboratory Laboratory [facility] [place] [address] [place] [phone] [place], Lab [facility] [address] [place] [address] 11/26/2023 11:30 AM EST Hem/Onc Treatment Hematology/Oncology Treatment, [place] [address] [place] [address] 12/14/2023 8:00 AM EST Office Visit Hematology/Oncology [facility] [place] [address] [place] [address] Chito Garcia MD [address] [place] [address] 12/22/2023 2:00 PM EST Office Visit Pharmacy, [facility] [place] [address] [place] [address] Pharmacist1, [facility] Sp [address] [facility] [place] [address] 01/17/2024 3:00 PM EDT Office Visit [facility] [place] [address] [place] [address] Landen Macario, DO [address] [facility] [place] [address] 05/09/2024 3:20 PM EDT Office Visit [facility] [place] [address] [place] [address] Landen Macario, DO [address] [facility] [place] [address] Health Maintenance Due Date Last Done Comments [...] 01/05/2024 01/04/2023, 10/08/2022, 05/15/2022 B-12 03/02/2024 03/02/2023, 0 02/2022, 07/08/2021, Additional history exists HbA1c 03/22/2024 09/21/2023, 2 05/2023, 03/02/2023, Additional history exists GFR 04/28/2024 10/29/2023, 0 05/2024, 09/21/2023, Additional history exists CKD PHOS USE SMARTSET 43909 09/21/20240 02/2023, 08/02/2023, 05/25/2023, Additional history exists CKD HGB USE SMARTSET 96645 10/29/202410/29, 10/29/2023, 10/25/2023, Additional history exists O2 [...] this encounter Medical Devices Implanted Type Area Memorial Marker Designer Device Identifier Shelf Expiration Date Model / Serial / Lot Lens Intraoc 24.0 - [id number] - [id number] Implanted:Qty: 1 on 08/16/2018 by Adan Colon MD at [facility] Right: Eye BAUSCH & LOMB 11/17/2022 [id number] / [id number] / [id number] Lens Intraoc 24.0 - [id number] - [id number] Implanted:Qty: 1 on 08/23/2018 by Adan Colon MD at OR [facility] Left: Eye BAUSCH & LOMB 06/17/2023 [id number] / [id number] / [id number] Screw [employer] [id number] - [id number] Implanted:Qty: 1 on 12/07/2019 by Amilcar Saavedra MD at [facility] Left: Foot EXACTECH [id number] / / documented as of this encounter [...] and were consensually agreed upon. Care Teams Information Systems Professor Relationship Specialty Start Date End Date Landen Macario DO [address] [place] [address] PCP - General Family Medicine 02/09/22 documented as of this encounter
--- OUTSIDE RECORDS SUMMARY | 2023-11-21 19:58 | External Medical Summary | Summary of Care ---
Author Name Unknown Organization [facility] Address [address] [place] [address] Phone [phone] Care Team Providers Care Nuclear Powerplant Supervisor Name Role Phone Landen Macario DO Primary Care Provider [phone] Reason for Visit * Reason Onset Date Comments FYI 11/02/2023 Encounter Details Date Type Department Care Team (Late st Contact Info) Description 11/02/2023 Telephone Hematology/Oncology, [facility] [address] [place] [address] Chito Garcia MD [address] [place] [address] FYI Allergies Active Allergy Reactions Criticality Noted Date [...] or Wheezing. 18 g 3 04/03/2022 Active G77-Gqpivt 1 MG Oral Tablet Chewable (Methylcobalamin) Take [...] 1 Each 3 03/04/2023 Active Dexcom G7 Roller Picker Device Use to check blood sugar [...] hemoglobin A1c goal of less than 8.0% ([facility]) USE DIRECTED WITH insulins 500 Each 3 [...] 06/14/2023 Active Gabapentin 300 MG Oral Capsule (Neurontin)Indica tions:Sensory neuropathy Take 1 Capsule by mouth in the morning and 1 Capsule in the evening. 180 Capsule 3 06/14/2023 Active Linzess 145 MCG Oral Capsule (linaCLOtide)Vera [...] 10/13/2023 Active Lenalidomide 10 MG Oral Capsule (Revlimid)Indicat ions:Multiple myeloma not having achieved remission (HCC) Take one cap by mouth daily for 21 days on, 7 days off of a 28 day cycle 21 Capsule 0 11/02/2023 Active Lenalidomide 10 MG Oral Capsule (Revlimid)Indicat ions:Multiple myeloma not having achieved remission (HCC) Take one cap by mouth daily for 21 days on, 7 days off of a 28 day cycle 21 Capsule 0 10/28/2023 4 Discontinue d(Refill) documented as of this encounter (statuses as of 11/02/2023) Active Problems Problem Noted Date Diagnosed Date COPD, group B, by GOLD 2017 classification 09/27 Overview: Per COPD GOLD Classification Chronic kidney disease, stage 3a 08/30/2023 Overview: Per CKD protocol Protein-calorie malnutrition 08/02/2023 ILD (interstitial lung disease) 06/14/2023 Chronic systolic (congestive) heart failure 05/2022 Coronary artery disease invo lving [place] coronary artery of [place] heart without angina pectoris 06/25/2022 Presence of [...] Gastroesophageal reflux disease without esophagi tis 03/15/2019 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 11/25/2018 Paroxysmal atrial [...] 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,rt gnosticist 07/05/2002 05/26/2018 Rosacea 07/28/2001 05/26/2018 LOC PRIM [id number]-[id number] 07/28/200106/2018 documented as of this encounter (statuses [...] as of this encounter Miscellaneous Notes * Addendum Note - Randolph Tam RPh - 11/02/2023 10:48 AM ESTAddended by: RANDOLPH TAM on: 11/02/2023 10:48 AM Modules accepted: Orders * Telephone Encounter - Randolph Tam RPh - 11/02/2023 10:47 AM EST Updated RX for Revlimid with ALETHA 1 - brand name only sent to [facility] Time Spent on Encounter: 6 - 10 minutes Encounter Group: Hematology Encounter Interventions Item Category: Oral Chemotherapy Lenalidomide Problem/Rationale: Adherence - Medication product not available Pharmacist Intervention(s): Medication prescribed Magnitude of Intervention: Modification of medication for asymtomatic patients (Level 2) * Telephone Encounter - Tyesha Daniel OSA - 11/02/2023 10:21 AM EST Images from the original note were not included. MEDICATION THERAPY MANAGEMENT LENALIDOMIDE (REVLIMID) TREATMENT PROGRESS NOTE Dev Hernandez [id number] Patient Phone Numbers Communication: Spoke with [facility] Treatment: Medication: Lenalidomide (Revlimid) Indication/Staging/Diagnosis Code: Multiple Myeloma Dose: 10mg daily D1-21 every 28 days Administration: +/- food Start Date: 09/17/22 Primary Energy Specialist/Oncologist: Dr. Garcia NEED REVLIMID ALETHA 1 DUE TO DRUG SHORTAGE JENNIE [place] Filter Press Supervisor Pharmacy Hematology Oncology Oral Chemotherapy Clinic Medication Therapy Disease Management [facility] 11/02/23 10:23 AM Time Spent on Encounter: 6 - 10 minutes documented in this encounter Plan of Treatment Upcoming Encounters Date Type Department Care Team (Late st Contact Info) Description 11/02/2023 1:15 PM EST Pharmacy Pharmacy Hematology Oncology [address] [address] [facility], [facility] Hem/[place]c [facility] [place] [address] 11/04/2023 12:30 PM EST Laboratory [address] [id number] [address] [address] 11/26/2023 10:30 AM EST Laboratory Laboratory [facility] Charleen Ramirez [address] [place] [phone] [place], Lab [address] [place] [address] 11/26/2023 11:30 AM EST Hem/Onc Treatment Hematology/Oncology Treatment, [place] [address] [place] [address] 12/14/2023 8:00 AM EST Office Visit Hematology/Oncology [place] [address] [place] [address] Chito Garcia MD [address] [place] [address] 12/22/2023 2:00 PM EST Office Visit Pharmacy, [facility] [address] [place] [address] Pharmacist1, [facility] Sp [address] [place] [address] 01/17/2024 3:00 PM EDT Office Visit [facility] [address] [place] [address] Landen Macario, DO [address] [place] [address] 05/09/2024 3:20 PM EDT Office Visit [facility] [address] [place] [address] Landen Macario, DO [address] [place] [address] Health Maintenance Due Date Last Done Comments [...] Additional history exists CKD PHOS USE SMARTSET 24353 09/21/20240 02/2023, 08/02/2023, 05/25/2023, Additional history exists CKD HGB USE SMARTSET 93609 10/29/202410/29, 10/29/2023, 10/25/2023, Additional history exists O2 [...] this encounter Medical Devices Implanted Type Area Chefs Device Identifier Shelf Expiration Date Model / Serial / Lot Lens Intraoc 24.0 - [id number] - [id number] Implanted:Qty: 1 on 08/16/2018 by Adan Colon MD at OR [facility] Right: Eye BAUSCH & LOMB 11/17/2022 [id number] / [id number] / [id number] Lens Intraoc 24.0 - [id number] - [id number] Implanted:Qty: 1 on 08/23/2018 by Adan Colon MD at OR [facility] Left: Eye BAUSCH & LOMB 06/17/2023 [id number] / [id number] / [id number] Screw [employer] [id number] - [id number] Implanted:Qty: 1 on 12/07/2019 by Amilcar Saavedra MD at [facility] Left: Foot EXACTECH [id number] / / documented as of this encounter [...] and were consensually agreed upon. Care Teams Nuclear Powerplant Supervisor Relationship Specialty Start Date End Date Landen Macario DO [address] [facility] [place] [address] PCP - General Family Medicine 02/09/22 documented as of this encounter
--- OUTSIDE RECORDS SUMMARY | 2023-11-21 19:58 | External Medical Summary | Summary of Care ---
Author Name Unknown Organization [facility] Address [address] [facility] [address] Phone [phone] Care Team Providers Care Registered Nurse Supervisor Name Role Phone AhsanLanden nava DO Primary Care Provider [phone] Encounter Details Date Type Department Care Team (Late st Contact Info) Description 10/26/2023 Orders Only Hematology/Oncology [facility] [address] [place] [address] Chito Garcia MD [address] [place] [address] Multiple myeloma not having achieved remission (HCC)* Allergies Active Allergy Reactions Criticality Noted Date Comments Tizanidine 06/27/2021 documented as of this encounter (statuses as of 10/28/2023) Medications Medication Sig Dispensed Refills Start Date [...] or Wheezing. 18 g 3 04/03/2022 Active W24-Kkdovm 1 MG Oral Tablet Chewable (Methylcobalamin) Take [...] 1 Each 3 03/04/2023 Active Dexcom G7 Service Tester Device Use to check blood sugar 1 [...] 28 day cycle 21 Capsule 0 10/28/2023 Active Lenalidomide 10 MG Oral Capsule (Revlimid)Indicat ions:Multiple myeloma not having achieved remission (HCC) TAKE 1 CAPSULE BY MOUTH 1 TIME A DAY FOR 21 DAYS ON, THEN 7 DAYS OFF. 21 Capsule 0 07/07/2023 4 Discontinue d(Refill) dexAMETHasone 4 MG Oral Tablet (Decadron)Indicat ions:Multiple myeloma not having achieved remission (HCC) Take 20mg once a week 120 Tablet 1 07/23/2023 4 Discontinue d(End of Procedure) documented as of this encounter (statuses as of 10/28/2023) Active Problems Problem Noted Date Diagnosed Date COPD, group B, by GOLD 2017 classification 09/27 Overview: Per COPD GOLD Classification Chronic kidney disease, stage 3a 08/30/2023 Overview: Per CKD protocol Protein-calorie malnutrition 08/02/2023 ILD (interstitial lung disease) 06/14/2023 Chronic systolic (congestive) heart failure 05/2022 Coronary artery disease invo lving pamunkey coronary artery of pamunkey heart without angina pectoris 06/25/2022 Presence of [...] Gastroesophageal reflux disease without esophagi tis 03/15/2019 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 11/25/2018 Paroxysmal atrial [...] as of this encounter (statuses as of 10/28/2023) Resolved Problems Problem Noted Date Diagnosed Date [...] 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,rt restorationism 07/05/2002 05/26/2018 Rosacea 07/28/2001 05/26/2018 LOC PRIM [id number] 07/28/200106/2018 documented as of this encounter (statuses as of 10/28/2023) Immunizations Name Administration Dates Next Due COVID-19 mRNA, LNP-s, No Pre serve, 2-Dose Series (Moderna) 08/27/2021,01/04/2021,12/02/2020 COVID-19, mRNA, LNP-s, PF, B ooster, 100mcg/0.5mg (Moderna) 05/07/2022 Covid-19, Mrna, Lnp-s, Pf, B ivalent, 30 Mcg, IM, 12 yrs and above (Dysonics) 09/04/2022 H1N1 2009 Influenza, IM 09/22/2009 Hepatitis [...] Miscellaneous Notes * Addendum Note - Randolph Major RPh - 10/28/2023 3:22 PM ESTAddended by: RANDOLPH MAJOR on: 10/28/2023 03:22 PM Modules accepted: Orders documented in this encounter Plan of Treatment Upcoming Encounters Date Type Department Care Team (Late st Contact Info) Description 10/29/2023 1:30 PM EST Laboratory Laboratory [facility] [place] [address] [place] [id number] [facility] [address] [facility] [place] [address] 10/29/2023 2:30 PM EST Hem/Onc Treatment Hematology/Oncology Treatment, [place] [address] [place] [address] Ashley, Chair 5 Hem Onc [address] [place] [address] 11/04/2023 1:30 PM EST Office Visit Pulmonary Medicine, [place] [address] [place] [address] Jignesh Hendrickson MD [address] [place] [address] 12/14/2023 8:00 AM EST Office Visit Hematology/Oncology [facility] [place] [address] [facility] [place] [address] Chito Garcia MD [address] [facility] [place] [address] 12/22/2023 2:00 PM EST Office Visit Pharmacy, [facility] [place] [address] [facility] [place] [address] Pharmacist1, [facility] [address] [facility] [place] [address] 01/17/2024 3:00 PM EDT Office Visit Family [facility] [place] [address] [place] [address] Landen Macario, DO [address] [place] [address] 05/09/2024 3:20 PM EDT Office Visit [facility] [place] [address] [place] [address] Landen Macario, DO [address] [place] [address] Health Maintenance Due Date Last Done Comments [...] 09/21/2023, 05/19, 03/02/2023, Additional history exists GFR 04/24/2024 10/25/2023, 0 02/2023, 08/02/2023, Additional history exists CKD PHOS USE SMARTSET 58790 09/21/20240 02/2023, 08/02/2023, 05/25/2023, Additional history exists CKD HGB USE SMARTSET 24030 10/25/202410/25, 10/25/2023, 09/21/2023, Additional history exists O2 ASSESSMENT COMPLETED IN PAST YEAR FOR COPD 10/25/2024 10/25/2023 DTaP,Tdap,and Td Vaccines (2 - Td or [...] this encounter Medical Devices Implanted Type Area Solutions Architect Device Identifier Shelf Expiration Date Model / Serial / Lot Lens Intraoc 24.0 - [id number] - [id number] Implanted:Qty: 1 on 08/16/2018 by Adan Colon MD at OR [facility] Right: Eye [employer] 11/17/2022 [id number] / [id number] / [id number] Lens Intraoc 24.0 - [id number] - [id number] Implanted:Qty: 1 on 08/23/2018 by Adan Colon MD at OR [facility] Left: Eye BAUSCH [employer] LOMB 06/17/2023 [id number] / [id number] / [id number] Screw [employer] 3.3mtv52vb - [id number] Implanted:Qty: 1 on 12/07/2019 by Amilcar Saavedra MD at OR [facility] Left: Foot EXACTECH [id number] / / documented as of this encounter [...] and were consensually agreed upon. Care Teams Registered Nurse Supervisor Relationship Specialty Start Date End Date Landen Macario DO [address] [place] [address] PCP - General Family Medicine 02/09/22 documented as of this encounter
--- OUTSIDE RECORDS SUMMARY | 2023-11-21 19:58 | External Medical Summary | Summary of Care ---
Author Name Unknown Organization [facility] Address [address] [place] [address] Phone [phone] Care Team Providers Care Audio Visual Technician Name Role Phone RenaldoLanden Con MCCABE Primary Care Provider [phone] Reason for Visit * Reason Comments Outpatient Testing Encounter Details Date Type Department Care Team (Late st Contact Info) Description 10/29/2023 1:30 PM EST Laboratory Laboratory [facility] [address] [place] [id number] [facility] [address] [facility] [place] [address] Arrived Allergies Active Allergy Reactions Criticality Noted Date Comments Tizanidine 06/27/2021 documented as of this encounter (statuses as of 10/29/2023) Medications Medication Sig Dispensed Refills Start Date [...] or Wheezing. 18 g 3 04/03/2022 Active J97-Yeqyil 1 MG Oral Tablet Chewable (Methylcobalamin) Take [...] 1 Each 3 03/04/2023 Active Dexcom G7 Herb Grower Device Use to check blood sugar 1 [...] day cycle 21 Capsule 0 10/28/2023 Active documented as of this encounter (statuses as of 10/29/2023) Active Problems Problem Noted Date Diagnosed Date COPD, group B, by GOLD 2017 classification 09/27 Overview: Per COPD GOLD Classification Chronic kidney disease, stage 3a 08/30/2023 Overview: Per CKD protocol Protein-calorie malnutrition 08/02/2023 ILD (interstitial lung disease) 06/14/2023 Chronic systolic (congestive) heart failure 05/2022 Coronary artery disease invo lving caddo coronary artery of caddo heart without angina pectoris 06/25/2022 Presence of [...] Gastroesophageal reflux disease without esophagi tis 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 11/25/2018 Paroxysmal atrial [...] as of this encounter (statuses as of 10/29/2023) Resolved Problems Problem Noted Date Diagnosed Date [...] 07/05/2002 05/26/2018 Rosacea 07/28/2001 05/26/2018 LOC PRIM [id number] 07/28/200106/2018 documented as of this encounter (statuses as of 10/29/2023) Immunizations Name Administration Dates Next Due COVID-19 [...] Team (Late st Contact Info) Description 10/29/2023 2:30 PM EST Hem/Onc Treatment Hematology/Oncology Treatment, [place] [address] [facility] [address] [place] [address] [place], Chair 5 Hem Onc [facility] [address] [place] [address] Arrived 11/01/2023 1:15 PM EST Pharmacy Pharmacy Hematology Oncology [facility], [address] [address] Gm, [facility] Hem/Onc [facility] [place] [address] 11/04/2023 1:30 PM EST Office Visit Pulmonary Medicine, [place] [address] [place] [address] Jignesh Hendrickson MD [facility] [place] [address] 12/14/2023 8:00 AM EST Office Visit Hematology/Oncology [facility] [place] [address] [place] [address] Chito Garcia MD [address] [place] [address] 12/22/2023 2:00 PM EST Office Visit Pharmacy, [facility] [place] [address] [place] [address] Pharmacist, [facility] [address] [facility] [place] [address] 01/17/2024 3:00 PM EDT Office Visit Family Practice [facility] [place] [address] [place] [address] Landen Macario, DO [address] [facility] [place] [address] 05/09/2024 3:20 PM EDT Office Visit Family Practice [facility] [place] [address] [facility] [place] [address] Landen Macario, DO [address] [facility] [place] [address] Health Maintenance Due Date Last Done Comments [...] 03/02/2023, Additional history exists GFR 04/24/2024 10/25/2023, 120 02/2023, 08/02/2023, Additional history exists CKD PHOS USE SMARTSET 56868 09/21/2024 12/0 02/2023, 08/02/2023, 05/25/2023, Additional history exists CKD HGB USE SMARTSET 97816 10/25/202410/25, 10/25/2023, 09/21/2023, Additional history exists O2 [...] this encounter Medical Devices Implanted Type Area Building Wrecker Device Identifier Shelf Expiration Date Model / Serial / Lot Lens Intraoc 24.0 - [id number] - [id number] Implanted:Qty: 1 on 08/16/2018 by Adan Colon MD at OR [facility] Right: Eye [employer] 11/17/2022 [id number] / [id number] / [id number] Lens Intraoc 24.0 - [id number] - [id number] Implanted:Qty: 1 on 08/23/2018 by Adan Colon MD at OR [facility] Left: Eye BAUSCH [employer] LOMB 06/17/2023 [id number] / [id number] / [id number] Screw [employer] 3.5rck47qz - [id number] Implanted:Qty: 1 on 12/07/2019 by Amilcar Saavedra MD at OR [facility] Left: Foot EXACTECH [id number] / / documented as of this encounter [...] and were consensually agreed upon. Care Teams Audio Visual Technician Relationship Specialty Start Date End Date Landen Macario DO [address] [place] [address] PCP - General Family Medicine 02/09/22 documented as of this encounter
--- OUTSIDE RECORDS SUMMARY | 2023-11-21 19:58 | External Medical Summary | Summary of Care ---
Author Name Unknown Organization [facility] Address [address] [place] [address] Phone [phone] Care Team Providers Care Supervisor Coating Name Role Phone Landen Macario DO Primary Care Provider [phone] Reason for Visit * Reason Onset Date Comments FYI 11/02/2023 Encounter Details Date Type Department Care Team (Late st Contact Info) Description 11/02/2023 Telephone Hematology/Oncology, [facility] [address] [place] [address] Chito Garcia MD [address] [place] [address] FYI Allergies Active Allergy Reactions Criticality Noted [...] or Wheezing. 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 05/26/2018 Rosacea 07/28/2001 05/26/2018 LOC PRIM [id number] 07/28/200106/2018 documented as of this encounter (statuses as of 11/02/2023) Immunizations Name Administration Dates Next Due COVID-19 mRNA, LNP-s, No Pre serve, 2-Dose Series (Moderna) 08/27/2021,01/04/2021,12/02/2020 COVID-19, mRNA, LNP-s, PF, B ooster, 100mcg/0.5mg (Moderna) 05/07/2022 Covid-19, Mrna, Lnp-s, Pf, B ivalent, 30 Mcg, IM, 12 yrs and above ([place]) 09/04/2022 H1N1 2009 Influenza, IM 09/22/2009 PPD [...] encounter Miscellaneous Notes * Telephone Encounter - Tyesha Daniel OSA - 11/02/2023 10:21 AM EST Images from the original note were not included. MEDICATION THERAPY MANAGEMENT LENALIDOMIDE (REVLIMID) TREATMENT PROGRESS NOTE Dev Ramirez Mary [phone] Patient Phone Numbers Communication: Spoke with [facility] Treatment: Medication: Lenalidomide (Revlimid) Indication/Staging/Diagnosis Code: Multiple Myeloma Dose: 10mg daily D1-21 every 28 days Administration: +/- food Start Date: 09/17/22 Primary Barrel Burner/Oncologist: Dr. Garcia NEED REVLIMID ALETHA 1 DUE TO DRUG SHORTAGE JENNIE Linares Windows Laptop Technician Pharmacy Hematology Oncology Oral Chemotherapy Clinic Medication Therapy Disease Management [facility] 11/02/23 10:23 AM Time Spent on Encounter: 6 - 10 minutes documented in this encounter Plan of Treatment Upcoming Encounters Date Type Department Care Team (Late st Contact Info) Description 11/02/2023 1:15 PM EST Pharmacy Pharmacy Hematology Oncology [place] [address] [place] [address] [facility] Hem/Onc [address] [place] [address] 11/04/2023 12:30 PM EST Laboratory Laboratory, [place] [address] [place] [phone] [place], Laboratory [address], [place] [id number] 11/26/2023 10:30 AM EST Laboratory Laboratory [facility] [place] [address] [place] [phone] [facility] [address] [place] [address] 11/26/2023 11:30 AM EST Hem/Onc Treatment Hematology/Oncology Treatment, [place] [address] [place] [address] 12/14/2023 8:00 AM EST Office Visit Hematology/Oncology [facility] [place] [address] [place] [address] Chito Garcia MD [address] [place] [address] 12/22/2023 2:00 PM EST Office Visit Pharmacy, [facility] [place] [address] [place] [address] Pharmacist1, [facility] [address] [place] [address] 01/17/2024 3:00 PM EDT Office Visit [facility] [place] [address] [place] [address] Landen Macario, DO [address] [place] [address] 05/09/2024 3:20 PM EDT Office Visit [facility] [place] [address] [place] [address] Landen Macario, DO [address] [place] [address] Health Maintenance Due Date Last Done Comments [...] Additional history exists CKD PHOS USE SMARTSET 27441 09/21/2024/0 02/2023, 08/02/2023, 05/25/2023, Additional history exists CKD HGB USE SMARTSET 09663 10/29/202410/29, 10/29/2023, 10/25/2023, Additional history exists O2 [...] this encounter Medical Devices Implanted Type Area Adolescent Psychiatrist Device Identifier Shelf Expiration Date Model / Serial / Lot Lens Intraoc 24.0 - [id number] - [id number] Implanted:Qty: 1 on 08/16/2018 by Adan Colon MD at OR [facility] Right: Eye [employer] 11/17/2022 [id number] / [id number] / [id number] Lens Intraoc 24.0 - [id number] - [id number] Implanted:Qty: 1 on 08/23/2018 by Adan Colon MD at OR [facility] Left: Eye BAUSCH [employer] LOMB 06/17/2023 [id number] / [id number] / [id number] Screw [employer] 3.8xke83qg - [id number] Implanted:Qty: 1 on 12/07/2019 by Amilcar Saavedra MD at OR [facility] Left: Foot EXACTECH [id number] / / documented as of this encounter [...] were consensually agreed upon. Care Teams Supervisor Coating Relationship Specialty Start Date End Date Landen Macario DO [address] [place] [address] PCP - General Family Medicine 02/09/22 documented as of this encounter
--- OUTSIDE RECORDS SUMMARY | 2023-11-21 19:58 | External Medical Summary ---
Author Name Unknown Address Unknown Organization [facility] [place] [address] Laboratory Report Ordering Provider Test Date Status ANIBAL FIERRO 10/29/2023 13:19:24 Final Observation Date Value Abnormality Reference (Units ) Status WBC, Total 10/29/2023 13:19:24 6.52 4.00-10.8 0 (K/uL) Final RBC 10/29/2023 13:19:24 3.83 4.50-5.25 (M/uL) Final Hemoglobin 10/29/2023 13:19:24 11.8 Below low normal 14 .0-16.8 (g/dL) Final HCT 10/29/2023 13:19:24 37.6 Below low normal 40. 0-48.4 (%) Final MCV 10/29/2023 13:19:24 98.2 82.0-99.5 (fL) Final MCH 10/29/2023 13:19:24 30.8 27.0-34.0 (pg) Final MCHC 10/29/2023 13:19:24 31.4 32.0-36.0 (g/dL) Final RDW 10/29/2023 13:19:24 17.0 11.5-15.5 (%) Final Platelets 10/29/2023 13:19:24 185 140-400 (K /uL) Final MPV 10/29/2023 13:19:24 9.6 6.6-11.1 ( fL) Final Performing Location [facility] [address] [address]
--- OUTSIDE RECORDS SUMMARY | 2023-11-21 19:58 | External Medical Summary ---
Author Name Unknown Address Unknown Organization [facility] [address] [place] [address] Laboratory Report Ordering Provider Test Date Status ANIBAL FIERRO 10/29/2023 13:19:24 Final Observation Date Value Abnormality Reference (Units ) Status SYNC LEUKOCYTES IN BLOOD BY AUTOMATED COUNT 10/29/2023 13:19:24 6.52 4.00-10.80 (K/uL) Final Neutrophils/100 leukocytes in Blood by Manual count 10/29/2023 13:19:24 56.0 40.0-75.0 (%) Final Lymphocytes/100 leukocytes in Blood by Manual count 10/29/2023 13:19:24 20.0 18.0-42.0 (%) Final Monocytes/100 leukocytes in Blood by Manual count 10/29/2023 13:19:24 21.0 Above high normal 1.0-11.0 (%) Final Eosinophils/100 leukocytes in Blood by Manual count 10/29/2023 13:19:24 1.0 0.0-6.0 (%) Final Metamyelocytes/100 leukocytes in Blood by Manual count 10/29/2023 13:19:24 2.0 Above high normal <=0.0 (%) Final Neutrophils [#/volume] in Blood by Manual count 10/29/2023 13:19:24 3.65 1.80-7.70 (K/uL) Final Lymphocytes [#/volume] in Blood by Manual count 10/29/2023 13:19:24 1.30 1.00-4.80 (K/uL) Final Monocytes [#/volume] in Blood by Manual count 10/29/2023 13:19:24 1.37 Above high normal 0.00-1.10 (K/uL) Final Eosinophils [#/volume] in Blood by Manual count 10/29/2023 13:19:24 0.07 0.00-0.70 (K/uL) Final Metamyelocytes [#/volume] in Blood by Manual count 10/29/2023 13:19:24 0.13 Above high normal <=0.00 (K/uL) Final Nucleated erythrocytes/100 leukocytes [Ratio] in Blood by Automated count 10/29/2023 13:19:24 Final Elliptocytes [Presence] in Blood by Light microscopy 10/29/2023 13:19:24 Moderate Abnormal None Seen Final Dacrocytes [Presence] in Blood by Light microscopy 10/29/2023 13:19:24 Moderate Abnormal None Seen Final Performing Location [facility] [address] [place] [address]
--- OUTSIDE RECORDS SUMMARY | 2023-11-21 19:58 | External Medical Summary | Summary of Care ---
Author Name Unknown Organization [facility] Address [address] [place] [address] Phone [phone] Care Team Providers Care Textile Stylist Name Role Phone Landen Macario DO Primary Care Provider [phone] Reason for Visit * Reason Onset Date Comments FYI 11/02/2023 Encounter Details Date Type Department Care Team (Late st Contact Info) Description 11/02/2023 Telephone Hematology/Oncology, [facility] [address] [place] [address] Chito Garcia MD [address] [place] [address] FY Allergies Active Allergy Reactions Criticality Noted Date [...] or Wheezing. 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 11/25/2018 Paroxysmal atrial [...] of inactive term lentigo maligna,rt gnosticism 07/05/2002 05/26/2018 Rosacea 07/28/2001 05/26/2018 LOC PRIM [id number] 07/28/200106/2018 documented as of this encounter (statuses [...] Telephone Encounter - Tyesha Daniel OSA - 11/04/2023 11:01 AM EST Shipped 11/02/2023 Copay $12 (Update received from [facility]) JENNIE Linares Entry Level Staff Accountant Pharmacy Hematology Oncology Oral Chemotherapy Clinic Medication Therapy Disease Management [facility] 11/04/23 11:02 AM Time Spent on Encounter: 6 - 10 minutes * Addendum Note - Randolph Major RPh - 11/02/2023 10:48 AM ESTAddended by: RANDOLPH MAJOR on: 11/02/2023 10:48 AM Modules accepted: Orders * Telephone Encounter - Randolph Major RPh - 11/02/2023 10:47 AM EST Updated RX for Revlimid with ALETHA 1 - brand name only sent to [facility] Specialty Time Spent on Encounter: 6 - [...] LENALIDOMIDE (REVLIMID) TREATMENT PROGRESS NOTE Dev Hernandez [id number] Patient Phone Numbers Communication: Spoke with [facility] Treatment: Medication: Lenalidomide (Revlimid) Indication/Staging/Diagnosis Code: Multiple Myeloma Dose: 10mg daily D1-21 every 28 days Administration: +/- food Start Date: 09/17/22 Primary Electronics Technology Instructor/Oncologist: Dr. Garcia NEED REVLIMID ALETHA 1 DUE TO DRUG SHORTAGE JENNIE Linares Entry Level Staff Accountant Pharmacy Hematology Oncology Oral Chemotherapy Clinic Medication Therapy Disease Management [facility] 11/02/23 10:23 AM Time Spent on Encounter: 6 - 10 minutes documented in this encounter Plan of Treatment Upcoming Encounters Date Type Department Care Team (Late st Contact Info) Description 11/04/2023 12:30 PM EST Laboratory Laboratory, [place] [address] [place] [address] [place] [address] [place] [address] 11/04/2023 1:15 PM EST Pharmacy Pharmacy Hematology Oncology [facility] [address] [place] [address] [facility], [facility] Hem/Onc [address] [place] [address] 11/26/2023 10:30 AM EST Laboratory Laboratory [place] Marissa Ramirez [address] [place] [id number] [facility] [place] [address] [place], [place] [address] 11/26/2023 11:30 AM EST Hem/Onc Treatment Hematology/Oncology Treatment, [place] [address] [place] [address] 12/14/2023 8:00 AM EST Office Visit Hematology/Oncology [facility] [place] [address] [place] [address] Chito Garcia MD [address] [facility] [address] [place] [address] 12/22/2023 2:00 PM EST Office Visit Pharmacy, [facility] [place] [address] [place] [address] [address], [facility] Sp [address] [place], [place] [address] 01/17/2024 3:00 PM EDT Office Visit [facility] [place] [address] [place] [address] Landen Macario, DO [address] [facility] [place] [address] 05/09/2024 3:20 PM EDT Office Visit [facility] [place] [address] [place] [address] Landen Macario, DO [address] [facility] [place] [address] Health Maintenance Due Date Last Done Comments [...] 09/21/2023, 05/19, 03/02/2023, Additional history exists GFR 04/28/2024 10/29/2023, 0 05/2024, 09/21/2023, Additional history exists CKD PHOS USE SMARTSET 19028 09/21/20240 02/2023, 08/02/2023, 05/25/2023, Additional history exists CKD HGB USE SMARTSET 33519 10/29/202410/29, 10/29/2023, 10/25/2023, Additional history exists O2 [...] this encounter Medical Devices Implanted Type Area Hockey Player Device Identifier Shelf Expiration Date Model / Serial / Lot Lens Intraoc 24.0 - [id number] - [id number] Implanted:Qty: 1 on 08/16/2018 by Adan Colon MD at OR [facility] Right: Eye [employer]OM[employer] 11/17/2022 [id number] / [id number] / [id number] Lens Intraoc 24.0 - [id number] - [id number] Implanted:Qty: 1 on 08/23/2018 by Adan Colon MD at OR [facility] Left: Eye BAUSCH [employer] LOMB 06/17/2023 [id number] / [id number] / [id number] Screw [employer] 3.2kal63cn - [id number] Implanted:Qty: 1 on 12/07/2019 by Amilcar Saavedra MD at OR [facility] Left: Foot EXACTECH [id number] / / documented as of this encounter [...] and were consensually agreed upon. Care Teams Textile Stylist Relationship Specialty Start Date End Date Landen Macario DO [address] [place] [address] PCP - General Family Medicine 02/09/22 documented as of this encounter
--- OUTSIDE RECORDS SUMMARY | 2023-11-21 19:58 | External Medical Summary ---
Author Name Unknown Address Unknown Organization K01:[facility] [address] [facility] [place] [address] Laboratory Report Ordering Provider Test Date Status ANIBAL FIERRO 11/04/2023 12:53:36 Final Observation Date Value Abnormality Reference (Units ) Status BUN 11/04/2023 12:53:36 21 Above high normal 6-20 (mg/dL) Final Creatinine 11/04/2023 12:53:36 1.0 0.6-1.2 (mg/dL) Final Glomerular filtration rate/1.73 sq M.predicted [Volume Rate/Area] in Serum, Plasma or Blood by Creatinine-based formula (CKD-EPI) 11/04/2023 12:53:36 81 >=60 (mL/min) Final eGFR is calculated based on the CKD-EPI 2020 equation SODIUM 11/04/2023 12:53:36 141 135-146 (m mol/L) Final Potassium 11/04/2023 12:53:36 3.7 3.5-5.1 (m mol/L) Final Cl 11/04/2023 12:53:36 102 98-107 (mm ol/L) Final CO2 11/04/2023 12:53:36 22 22-32 (mmo l/L) Final Anion gap 11/04/2023 12:53:36 17 Above high normal 7- 15 (mmol/L) Final Glucose 11/04/2023 12:53:36 75 70-120 (mg /dL) Final Albumin 11/04/2023 12:53:36 4.3 3.8-5.0 (g /dL) Final AST (Aspartate aminotransferase) 11/04/2023 12:53:36 19 10-50 (U/L) Fin al Alk Phos 11/04/2023 12:53:36 72 35-130 (U/ L) Final Bilirubin, Total 11/04/2023 12:53:36 0.3 <=1 .2 (mg/dL) Final Calcium 11/04/2023 12:53:36 9.1 8.4-10.2 ( mg/dL) Final Protein 11/04/2023 12:53:36 6.3 6.0-8.3 (g /dL) Final ALT (Alanine aminotransferase) 11/04/2023 12:53:36 28 10-50 (U/L) Marcelo lobato Performing Location [facility] [address] [facility] [address]
--- OUTSIDE RECORDS SUMMARY | 2023-11-21 19:58 | External Medical Summary | Summary of Care ---
Author Name Unknown Organization [facility] Address [address] [place] [address] Phone [phone] Care Team Providers Care Public Health Sanitarian Name Role Phone Landen Macario Primary Care Provider [phone] Reason for Visit * Reason Comments Medication Management Encounter Details Date Type Department Care Team (Late st Contact Info) Description 10/28/2023 1:30 PM [facility] Pharmacy Pharmacy Hematology Oncology [facility] [address] [place], [place] [phone] [facility], [facility] Hem/Onc [address] [place], [place] [phone] Multiple myeloma not having achieved remission (HCC)* [...] or Wheezing. 18 g 3 04/03/2022 Active G13-Jhoizo 1 MG Oral Tablet Chewable (Methylcobalamin) Take [...] 1 Each 3 03/04/2023 Active Dexcom G7 Margarine Maker Device Use to check blood sugar [...] failure 05/2022 Coronary artery disease invo lving [place] coronary artery of [place] heart without angina pectoris 06/25/2022 Presence of [...] Gastroesophageal reflux disease without esophagi tis 03/15/2019 alf (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 of insulin 11/25/2018 Paroxysmal atrial [...] of inactive term lentigo maligna,rt muslim 07/05/2002 05/26/2018 Rosacea 07/28/2001 05/26/2018 LOC PRIM [id number] 07/28/200106/2018 documented as of this encounter (statuses as of 10/28/2023) Immunizations Name Administration Dates Next Due COVID-19 mRNA, LNP-s, No Pre serve, 2-Dose Series (Moderna) 08/27/2021,01/04/2021,12/02/2020 COVID-19, mRNA, LNP-s, PF, B ooster, 100mcg/0.5mg (Moderna) 05/07/2022 Covid-19, Mrna, Lnp-s, Pf, B ivalent, 30 Mcg, IM, 12 yrs and above (TNC) 09/04/2022 H1N1 2009 Influenza, IM 09/22/2009 PPD [...] of this encounter Progress Notes * Poly Tam RP - 10/28/2023 3:23 PM EST Lenalidomide RX sent to [facility] to follow up in 2 days to assess RX status Poly Tam, PharmD, BCOP Clinical Pharmacist, [facility] Oral Chemotherapy [facility] 10/28/2023, 3:23 PM Time Spent on Encounter: 6 - 10 minutes Encounter Group: Hematology Encounter Interventions Item Category: Oral Chemotherapy Lenalidomide Problem/Rationale: [place] Plan Review: Clinical Review Pharmacist Intervention(s): Medication prescribed Magnitude of Intervention: Modification of medication for asymtomatic patients (Level 2) * Ashlee Ortiz CPhT - 10/28/2023 12:42 PM EST MEDICATION THERAPY MANAGEMENT LENALIDOMIDE (REVLIMID) TREATMENT PROGRESS NOTE Dev Hernandez [id number] Patient Phone Numbers Communication: Chart review Treatment: Medication: Lenalidomide (Revlimid) Indication/Staging/Diagnosis Code: Multiple Myeloma Dose: 10mg daily D1-21 every 28 days Administration: +/- food Start Date: 09/17/22 Primary Chimney Repairer/Oncologist: Dr. Garcia Additional Therapy: Daratumumab Dexamethasone Supportive Care Meds: Ondansetron Prochlorperazine Prophylactic Meds: Acyclovir Apixaban ASA Current cycle TBD Next cycle TBD Dose adjustment / medication hold: 05/25/23-present: DaraRd held due to declining performance status Interval History: Pt previously on lenalidomide 09/15/21-05/06/22 as Vrd Per OV 12/4/23, continue to HOLD treatment. "The decision about resuming treatment will depend on his overall performance status and status of the wound in the left lower extremity." Per OV 10/25/23, resume DaraRd Changes to medication list since last visit? No Assessment and Plan: Oral chemotherapy beacon plan signed by Dr. Garcia on 10/26 [facility] auth# [id number] Ashlee Ortiz Energy Efficient Site Manager II [facility] Oral Chemotherapy Clinic 10/28/2023 12:44 PM Time Spent on Encounter: < 5 minutes documented in this encounter Plan of Treatment Upcoming Encounters Date Type Department Care Team (Late st Contact Info) Description 10/29/2023 1:30 PM EST Laboratory Laboratory [facility] [address] [place] [id number] [place] [facility] [address] [facility] [place] [address] 10/29/2023 2:30 PM EST Hem/Onc Treatment Hematology/Oncology Treatment, [place] [facility] [address] [place], Chair [address] Hem On[address] [place] [address] 11/01/2023 1:15 PM EST Pharmacy Pharmacy Hematology Oncology [facility], [address] [address] [facility], [facility] Hem/Onc [facility] [place] [address] 11/04/2023 1:30 PM EST Office Visit Pulmonary Medicine, [place] [address] [place], [place] [phone] Jignesh Hendrickson MD [address] [place], [place] [phone] 12/14/2023 8:00 AM EST Office Visit Hematology/Oncology [facility] [address] [place] [address] Chito Garcia MD 200 [facility] [place] [address] 12/22/2023 2:00 PM EST Office Visit Pharmacy, [facility] [place] [address] [facility] [place] [address] Pharmacist1, [facility] Sp [address] [place] [address] 01/17/2024 3:00 PM EDT Office Visit [facility] [address] [facility] [place] [address] Landen Macario, DO [address] [facility] [place] [address] 05/09/2024 3:20 PM EDT Office Visit [facility] [address] [facility] [place] [address] Landen Macario, DO [address] [facility] [address] [place] [address] Health Maintenance Due Date Last Done Comments [...] Additional history exists CKD PHOS USE SMARTSET 96878 09/21/20240 02/2023, 08/02/2023, 05/25/2023, Additional history exists CKD HGB USE SMARTSET 21517 10/25/202410/25, 10/25/2023, 09/21/2023, Additional history exists O2 [...] this encounter Medical Devices Implanted Type Area Vice President Media Relations Device Identifier Shelf Expiration Date Model / Serial / Lot Lens Intraoc 24.0 - [id number] - [id number] Implanted:Qty: 1 on 08/16/2018 by Adan Colon MD at OR [facility] Right: Eye [employer]OM[employer] 11/17/2022 [id number] / [id number] / [id number] Lens Intraoc 24.0 - [id number] - [id number] Implanted:Qty: 1 on 08/23/2018 by Adan Colon MD at OR [facility] Left: Eye BAUSCH [employer] LOMB 06/17/2023 [id number] / [id number] / [id number] Screw [employer] 3.9iyy05gx - [id number] Implanted:Qty: 1 on 12/07/2019 by Amilcar Saavedra MD at OR [facility] Left: Foot EXACTECH [id number] / / documented as of this encounter [...] and were consensually agreed upon. Care Teams Public Health Sanitarian Relationship Specialty Start Date End Date Landen Macario DO 200 [facility] [place] [address] PCP - General Family Medicine 02/09/22 documented as of this encounter
--- OUTSIDE RECORDS SUMMARY | 2023-11-21 19:58 | External Medical Summary | Summary of Care ---
Author Name Unknown Organization [facility] Address [address] [place] [address] Phone [phone] Care Team Providers Care Supervisor Engine Repair Name Role Phone RoselynLanden cameron Primary Care Provider [phone] Reason for Visit * Reason Comments Outpatient Testing Encounter Details Date Type Department Care Team (Late st Contact Info) Description 11/04/2023 12:30 PM EST Laboratory Laboratory, [place] [address] [place] [address] [facility] [address] [place] [address] Multiple myeloma not having achieved remission (HCC) Allergies Active Allergy Reactions Criticality Noted [...] or Wheezing. 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 11/25/2018 Paroxysmal [...] 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,rt mandaen 07/05/2002 05/26/2018 Rosacea 07/28/2001 05/26/2018 LOC PRIM [id number] 07/28/200106/2018 documented as of this encounter (statuses as of 11/04/2023) Immunizations Name Administration Dates Next Due COVID-19 mRNA, LNP-s, No Pre serve, 2-Dose Series (Moderna) 08/27/2021,01/04/2021,12/02/2020 COVID-19, mRNA, LNP-s, PF, B ooster, 100mcg/0.5mg (Moderna) 05/07/2022 Covid-19, Mrna, Lnp-s, Pf, B ivalent, 30 Mcg, IM, 12 yrs and above (Mesuro) 09/04/2022 H1N1 2009 Influenza, IM 09/22/2009 PPD [...] st Contact Info) Description 11/04/2023 1:15 PM EST Pharmacy Pharmacy Hematology Oncology [facility] [address] [place] [address] [place], [facility] Hem/Onc [address] [place] [address] 11/26/2023 10:30 AM EST Laboratory Laboratory [place] [employer] [address] [place] [phone] [place], Lab [facility] [address] [place] [address] [address] 11/26/2023 11:30 AM EST Hem/Onc Treatment Hematology/Oncology Treatment, [place] [address] [place] [address] 12/14/2023 8:00 AM EST Office Visit Hematology/Oncology [facility] [place] [address] [place] [address] [address] Chito Garcia MD [address] [place] [address] [address] 12/22/2023 2:00 PM EST Office Visit Pharmacy, [facility] [place] [address] [place] [address] [address] Pharmacist1, [facility] Sp [address] [place] [address] 01/17/2024 3:00 PM EDT Office Visit Family Practice [place] [employer] [address] [place] [address] [address] Landen Macario, DO [address] [place] [address] 05/09/2024 3:20 PM EDT Office Visit Family Practice [place]leen C[place]denas 200 [facility] [place] [address] Landen Macario DO [address] [place] [address] Pending Results Name Type Priority Associated Diagnoses Date /Time COMPREHENSIVE METABOLIC PANEL Lab STAT Multiple myeloma not having achieved remission (HCC) 11/04/2023 12:53 PM EST Health Maintenance Due Date Last Done Comments [...] Additional history exists CKD PHOS USE SMARTSET 93867 09/21/2024/0 02/2023, 08/02/2023, 05/25/2023, Additional history exists CKD HGB USE SMARTSET 11435 10/29/202410/29, 10/29/2023, 10/25/2023, Additional history exists O2 [...] this encounter Medical Devices Implanted Type Area Auto Body Shop Manager Device Identifier Shelf Expiration Date Model / Serial / Lot Lens Intraoc 24.0 - [id number] - [id number] Implanted:Qty: 1 on 08/16/2018 by Adan Colon MD at OR [facility] Right: Eye [employer]CH [employer] LOMB 11/17/2022 [id number] / [id number] / [id number] Lens Intraoc 24.0 - [id number] - [id number] Implanted:Qty: 1 on 08/23/2018 by Adan Colon MD at OR [facility] Left: Eye BAUSCH [employer] LOMB 06/17/2023 [id number] / [id number] / [id number] Screw [employer] 3.2eyh82cx - [id number] Implanted:Qty: 1 on 12/07/2019 by Amilcar Saavedra MD at OR [facility] Left: Foot EXACTECH [id number] / / documented as of this encounter [...] were consensually agreed upon. Care Teams Supervisor Engine Repair Relationship Specialty Start Date End Date Landen Macario DO 200 [facility] [place] [address] PCP - General Family Medicine 02/09/22 documented as of this encounter
--- OUTSIDE RECORDS SUMMARY | 2023-11-21 19:58 | External Medical Summary | Summary of Care ---
Author Name Unknown Organization [facility] Address [address] [place] [address] Phone [phone] Care Team Providers Care Spring Former Hand Name Role Phone AhsanLanden nava Primary Care Provider [phone] Reason for Visit * Reason Comments Chemotherapy Darzalex-Faspro. * Episode Based Medications (Routine) - Authorized Specialty Diagnoses / Procedures Referred By Contac t Referred To Contact Diagnoses Multiple myeloma not having achieved remission (HCC) Procedures IA DARATUMUMAB, HYALURONIDASE Chito Garcia MD [address] [place] [address] Anc Hem/Onc [facility] DEPT CLOSED - 08/31/[address] [place] [id number] Referral ID Status Reason Start Date Expiration Date V isits Requested Visits Authorized [id number] Authorized 08/27/2022 12/24/2023 99 99 Encounter Details Date Type Department Care Team (Latest Contact Info) Description 10/29/2023 2:30 PM EST Hem/Onc Treatment Hematology/Oncology Treatment, [place] [address] [place] [address] Ashley, Chair 5 Hem Onc [address] [place] [address] Multiple myeloma not having achieved remission (HCC)* [...] or Wheezing. 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 11/25/2018 Paroxysmal atrial [...] 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,rt orthodoxy 07/05/2002 05/26/2018 Rosacea 07/28/2001 05/26/2018 LOC PRIM [id number] 07/28/200106/2018 documented as of this encounter (statuses [...] Sign Reading Time Taken Comments Blood Pressure 101/59 10/29/2023 2:00 PM EST Pulse 86 10/29/2023 2:00 PM EST Temperature 36.6 C (97.9 F) 10/29/2023 2:00 PM ES T Respiratory Rate 18 10/29/2023 2:00 PM EST Oxygen Saturation 94% 10/29/2023 2:00 PM EST Inhaled Oxygen Concentration - - Weight 67.3 kg (148 lb 6.4 oz) 10/29/2023 2:00 P M EST Height - - Body Mass Index 20.27 01/11/2023 3:38 PM EDT documented in this encounter Nursing Notes * Suzette Goldberg RN - 10/29/2023 4:23 PM EST Goals: Patient will remain free from injury. Possible barriers to meeting goals: Fall risk d/t ambulation with IV pole. Stability of the patient: Moderately unstable - medium risk of patient condition declining or worsening Summary regarding today's goals: Met: Patient remained free of injury. Functional status at today's visit: Restricted in [...] adverse side effects during treatment. Patient tolerated procedure well. Discharged in stable condition. * Suzette Goldberg RN - 10/29/2023 4:07 PM EST Chair 6. Patient arrived for darzalex-faspro injection. Patient denies any problems and has been feeling good. Dr. Garcia made aware that patients creatine was 1.3, BUN was 21, calcium was 10.6 and potassium was 5.5, per Dr. Garcia patient is good for treatment today but would like patient to repeat potassiumin one week and would like patient to decrease potassium dose to 10meq per day. Patient verbalizes understanding and agreeable to changes. Chemo agents Darzalex-faspro. Appetite a little decreased but good Nausea/Vomiting no Diarrhea no Constipation no Mucositis no Fatigue no Bleeding no Infection no Rash no Numbness tingling no Pain no Radiation no ABN Labs See above note. Alt in Tx: no Return in 1week for labs. Safety and Risk for Injury Patient will remain free from injury. Ensure appropriate safety devices are available. Provide and maintain safe environment. documented in this encounter Plan of Treatment Upcoming Encounters Date Type Department Care Team (Late st Contact Info) Description 11/01/2023 1:15 PM EST Pharmacy Pharmacy Hematology Oncology [place] [address] [place] [address] [facility], [facility] Hem/Onc [address] [place] [address] 11/04/2023 12:30 PM EST Laboratory Laboratory, [place] [address] [place] [address] [facility] [address] [place] [address] 11/04/2023 1:30 PM EST Office Visit Pulmonary Medicine, [place] [address] [place] [address] Jignesh Hendrickson MD [address] [place] [address] 11/26/2023 10:30 AM EST Laboratory Laboratory [facility] [place] [address] [place] [phone] [facility] [address] [facility] [place] [address] 11/26/2023 11:30 AM EST [facility] [address] [place] [address] 12/14/2023 8:00 AM EST Office Visit Hematology/Oncology [facility] [place] [address] [place] [address] Chiot Garcia MD [address] [place] [address] 12/22/2023 2:00 PM EST Office Visit Pharmacy, [facility] [place] [address] [place] [address] Pharmacist1, [facility] [address] [facility] [place] [address] 01/17/2024 3:00 PM EDT Office Visit Family [facility] [place] [address] [place] [address] Landen Macario, [address] [facility] [place] [address] 05/09/2024 3:20 PM EDT Office Visit [facility] [place] [address] [place] [address] Landen Macario, DO 200 [facility] [place] [address] Scheduled Orders Name Type Priority Associated Diagnoses Orde r Schedule COMPREHENSIVE METABOLIC PANEL Lab STAT Multiple myeloma not having achieved remission (HCC) Expected: 11/05/2023, Expires: 10/29/2024 Health Maintenance Due Date Last Done Comments [...] Additional history exists CKD PHOS USE SMARTSET 06906 09/21/2024 120 02/2023, 08/02/2023, 05/25/2023, Additional history exists O2 ASSESSMENT COMPLETED IN PAST YEAR FOR COPD 10/25/2024 10/25/2023 CKD HGB USE SMARTSET 35257 10/29/202410/29, 10/29/2023, 10/25/2023, Additional history exists DTaP,Tdap,and Td Vaccines (2 [...] this encounter Medical Devices Implanted Type Area Marker Assembler Device Identifier Shelf Expiration Date Model / Serial / Lot Lens Intraoc 24.0 - [id number] - [id number] Implanted:Qty: 1 on 08/16/2018 by Adan Colon MD at OR [facility] Right: Eye [employer] 11/17/2022 [id number] / [id number] / [id number] Lens Intraoc 24.0 - [id number] - [id number] Implanted:Qty: 1 on 08/23/2018 by Adan Colon MD at OR [facility] Left: Eye [employer]OMB 06/17/2023 [id number] / [id number] / [id number] Screw [employer] 3.0cpg85iy - [id number] Implanted:Qty: 1 on 12/07/2019 by Amlicar Saavedra MD at OR [facility] Left: Foot EXACTECH [id number] / / documented as of this encounter [...] ONCE PRN Other, Hypersensitivity Reaction, Starting on Wed10/29/23 at 1442, Until 10/30/23 at 1441, For 24 hours EPINEPHrine 1 MG/ML inj 0.3 mg 0.3 mg, Intramuscular, ONCE PRN Other, Hypersensitivity Reaction or Anaphylaxis, Starting on Wed10/29/23 at 1442, Until 10/30/23 at 1441, For 24 hours Hydrocortisone Sod Suc (PF) (Solu-Cortef) inj 100 mg 100 mg, IV Push, ONCE PRN Other, Hypersensitivity Reaction, Starting on Wed10/29/23 at 1442, Until 10/30/23 at 1441, For 24 hours meperidine (Demerol) 25 MG/ML inj 25 mg 25 mg, IV Push, ONCE PRN Shivering, Starting on Wed10/29/23 at 1442, Until 10/30/23 at 1441, For 24 hours Inactive Administered Medications - up to 3 most recent administrations Medication Order MAR Action Action Date Dose Rate Site Acetaminophen (Tylenol) tab 650 mg 650 mg, Oral, ONCE, On Wed10/29/23 at 1515, For 1 dose, Maximum of 4 grams (4000 mg) per day. Given 10/29/2023 3:07 PM EST 650 mg Daratumumab-hyaluronidas e-fihj (Darzalex Faspro) 1800 mg-75280 units/ 15 ml subcut inj 15 mL, Subcutaneous, ONCE, On Wed10/29/23 at 1615, For 1 dose, Inject subcutanteously into abdomen over 3 to 5 minutes Given 10/29/2023 3:52 PM EST 15 mL Abdomen Left Lower dexamethasone sodium phosphate 20 mg in NSS 50 mL ivpb 20 mg, IV Piggyback, ONCE, On Wed10/29/23 at 1545, For 1 dose, PROTECT FROM LIGHT Infuse over 30 minutes! Start Infusion 10/29/2023 3:07 PM EST 20 mg 100 mL/hr diphenhydrAMINE (Benadryl) inj 50 mg 50 mg, IV Push, ONCE, On Wed10/29/23 at 1545, For 1 dose Given 10/29/2023 3:07 PM EST 50 mg Famotidine (Pepcid) tab 20 mg 20 mg, Oral, ONCE, On Wed10/29/23 at 1545, For 1 dose Given 10/29/2023 3:07 PM EST 20 mg documented in this encounter Advance Directives [...] and were consensually agreed upon. Care Teams Spring Former Hand Relationship Specialty Start Date End Date Landen Macario DO [address] [place] [address] PCP - General Family Medicine 02/09/22 documented as of this encounter
--- OUTSIDE RECORDS SUMMARY | 2023-11-21 19:58 | External Medical Summary ---
Author Name Unknown Address Unknown Organization K09:[facility] [address] [place] [address] Laboratory Report Ordering Provider Test Date Status ANIBAL FIERRO 10/29/2023 13:19:24 Final Observation Date Value Abnormality Reference (Units ) Status BUN 10/29/2023 13:19:24 21 Above high normal 6-20 (mg/dL) Final Creatinine 10/29/2023 13:19:24 1.3 Above high normal 0.6-1.2 (mg/dL) Final Glomerular filtration rate/1.73 sq M.predicted [Volume Rate/Area] in Serum, Plasma or Blood by Creatinine-based formula (CKD-EPI) 10/29/2023 13:19:24 59 Below low normal >=60 (mL/min) Final eGFR is calculated based on the CKD-EPI 2020 equation SODIUM 10/29/2023 13:19:24 141 135-146 (m mol/L) Final Potassium 10/29/2023 13:19:24 5.5 Above high normal 3. 5-5.1 (mmol/L) Final Cl 10/29/2023 13:19:24 101 98-107 (mm ol/L) Final CO2 10/29/2023 13:19:24 25 22-32 (mmo l/L) Final Anion gap 10/29/2023 13:19:24 15 7-15 (mmol /L) Final Glucose 10/29/2023 13:19:24 167 Above high normal 70 -120 (mg/dL) Final Albumin 10/29/2023 13:19:24 4.6 3.8-5.0 (g /dL) Final AST (Aspartate aminotransferase) 10/29/2023 13:19:24 20 10-50 (U/L) Fin al Alk Phos 10/29/2023 13:19:24 75 35-130 (U/ L) Final Bilirubin, Total 10/29/2023 13:19:24 0.4 <=1 .2 (mg/dL) Final Calcium 10/29/2023 13:19:24 10.6 Above high normal 8. 4-10.2 (mg/dL) Final Protein 10/29/2023 13:19:24 7.5 6.0-8.3 (g /dL) Final ALT (Alanine aminotransferase) 10/29/2023 13:19:24 14 10-50 (U/L) Marcelo lobato Performing Location [facility] [address] [place] [address]
--- OUTSIDE RECORDS SUMMARY | 2023-11-21 19:58 | External Medical Summary | Summary of Care ---
Author Name Unknown Organization [facility] Address [address] [place] [address] Phone [phone] Care Team Providers Care Hearing Aide Technician Name Role Phone Landen Macario DO Primary Care Provider [phone] Encounter Details Date Type Department Care Team (Late st Contact Info) Description 10/28/2023 Orders Only Hematology/Oncology, [facility] [address], [place] [phone] Chito Garcia MD [address] [place] [address] Allergies Active Allergy Reactions Criticality Noted Date [...] or Wheezing. 18 g 3 04/03/2022 Active V54-Oidhrx 1 MG Oral Tablet Chewable (Methylcobalamin) Take [...] 1 Each 3 03/04/2023 Active Dexcom G7 Insurance Agent Device Use to check blood sugar 1 [...] DAYS OFF. 21 Capsule 0 07/07/2023 Active Senna 8.6 MG Oral Tablet Take [...] the morning. 18.2 mL 1 10/13/2023 Active documented as of this encounter (statuses as of 10/28/2023) Active Problems Problem Noted Date Diagnosed Date COPD, group B, by GOLD 2017 classification 09/27 Overview: Per COPD GOLD Classification Chronic kidney disease, stage 3a 08/30/2023 Overview: Per CKD protocol Protein-calorie malnutrition 08/02/2023 ILD (interstitial lung disease) 06/14/2023 Chronic systolic (congestive) heart failure 05/2022 Coronary artery disease invo lving [place] coronary artery of [place] heart without angina pectoris 06/25/2022 Presence of [...] reflux disease without esophagi tis 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 11/25/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 Paroxysmal [...] 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,rt congregation 07/05/2002 05/26/2018 Rosacea 07/28/2001 05/26/2018 LOC PRIM [id number] 07/28/200106/2018 documented as of this encounter (statuses [...] Description 10/29/2023 1:30 PM EST Laboratory Laboratory [facility] [place] [address] [place] [address] [phone] [facility] [address] [place] [address] [address] 10/29/2023 2:30 PM EST Hem/Onc Treatment Hematology/Oncology Treatment, [place] [address] [facility] [address] [place] [address] [place], Chair 5 Hem Onc [place] [address] [place] [address] [address] 11/04/2023 1:30 PM EST Office Visit Pulmonary Medicine, [place] [address] [place] [address] Jignesh Hendrickson MD [address] [place] [address] 12/14/2023 8:00 AM EST Office Visit Hematology/Oncology [facility] [place] [address] [place] [address] Chito Garcia MD [address] [place] [address] 12/22/2023 2:00 PM EST Office Visit Pharmacy, [facility] [place] [address] [place] [address] [address] Pharmacist1, [facility] [address] [place] [address] 01/17/2024 3:00 PM EDT Office Visit Family Practice [facility] [place] [address] [place] [address] Landen Macario, DO 200 [facility] [place] [address] 05/09/2024 3:20 PM EDT Office Visit Family Practice [facility] [place] [address] [facility] [place] [address] Landen Macario, DO 200 [facility] [place] [address] Health Maintenance Due Date Last Done Comments [...] Additional history exists CKD PHOS USE SMARTSET 50030 09/21/2024 12/0 02/2023, 08/02/2023, 05/25/2023, Additional history exists CKD HGB USE SMARTSET 51329 10/25/202410/25, 10/25/2023, 09/21/2023, Additional history exists O2 [...] this encounter Medical Devices Implanted Type Area Aluminum Pourer Device Identifier Shelf Expiration Date Model / Serial / Lot Lens Intraoc 24.0 - [id number] - [id number] Implanted:Qty: 1 on 08/16/2018 by Adan Colon MD at OR [facility] Right: Eye [employer] 11/17/2022 [id number] / [id number] / [id number] Lens Intraoc 24.0 - [id number] - [id number] Implanted:Qty: 1 on 08/23/2018 by Adan Colon MD at OR [facility] Left: Eye [employer] LOMB 06/17/2023 [id number] / [id number] / [id number] Screw [employer] 3.9dtv05of - [id number] Implanted:Qty: 1 on 12/07/2019 by Amilcar Saavedra MD at OR [facility] Left: Foot EXACTECH [id number] / / documented as of this encounter [...] and were consensually agreed upon. Care Teams Hearing Aide Technician Relationship Specialty Start Date End Date Landen Macario DO [facility] [address] [address] PCP - General Family Medicine 02/09/22 documented as of this encounter
--- OUTSIDE RECORDS SUMMARY | 2023-11-21 19:59 | External Medical Summary | Summary of Care ---
Author Name Unknown Organization [facility] Address [address] [facility] [address] Phone [phone] Care Team Providers Care Imaging Assistant Name Role Phone Landen Macario DO Primary Care Provider [phone] Reason for Visit * Reason Onset Date Comments Follow Up 10/05/2023 Encounter Details Date Type Department Care Team (Late st Contact Info) Description 10/05/2023 Telephone Hematology/Oncology [facility] [place] [address] [facility] [place] [address] Chito Garcia MD [address] [facility] [place] [address] Follow Up Allergies Active Allergy Reactions Criticality Noted Date Comments Tizanidine 06/27/2021 documented as of this encounter (statuses as of 10/27/2023) Medications Medication Sig Dispensed Refills Start Date [...] or Wheezing. 18 g 3 04/03/2022 Active E21-Rftqnm 1 MG Oral Tablet Chewable (Methylcobalamin) Take [...] 1 Each 3 03/04/2023 Active Dexcom G7 Gear Nicker Device Use to check blood sugar 1 [...] 06/14/2023 Active Lenalidomide 10 MG Oral Capsule (Revlimid)Indicat ions:Multiple myeloma not having achieved remission (HCC) TAKE 1 CAPSULE BY MOUTH 1 TIME A DAY FOR 21 DAYS ON, THEN 7 DAYS OFF. 21 Capsule 0 07/07/2023 Active dexAMETHasone 4 MG Oral Tablet (Decadron)Indicat ions:Multiple myeloma not having achieved remission (HCC) Take 20mg once a week 120 Tablet 1 07/23/2023 Active Senna 8.6 MG Oral Tablet Take 2 Tablets by mouth at bedtime as needed for Constipation. 60 Tablet 1 07/23/2023 Active Atorvastatin Calcium 40 MG Oral Tablet (Lipitor)Indicati ons:Dyslipidemia, goal LDL below 70 TAKE 1 TABLET BY MOUTH EVERY DAY 90 Tablet 1 07/27/2023 Active Morphine Sulfate 15 MG Oral Tablet (Msir)Indications :Cancer related pain Take 1 Tablet by mouth every 4 hours as needed for Pain, Severe. 120 Tablet 0 05/05/2023 3 Discontinue d(Refill) Metoprolol Succinate ER 25 MG Oral Tablet Extended Release 24 Hour (toPROL XL) Take 1 Tablet by mouth in the morning. 0 06/30/2023 3 Discontinue d(Refill) Metoprolol Succinate ER 50 MG Oral Tablet Extended Release 24 Hour (toPROL XL) Take 1 Tablet by mouth in the morning and 1 Tablet before bedtime. 180 Tablet 3 07/23/2023 3 Discontinue d(Refill) Furosemide 20 MG Oral Tablet (Lasix) Take 1 Tablet by mouth once a day on Wednesday, Wednesday, and Wednesday only. 0 07/29/2023 3 Discontinue d(Refill) predniSONE 20 MG Oral Tablet (Deltasone) 1 tab 3 times a day for 3 days, then 1 tab 2 times a day for 3 days, then 1 tab daily for 3 days 18 Tablet 0 09/23/2023 3 Discontinue d(Patient preference/ discontinua tion) documented as of this encounter (statuses as of 10/27/2023) Active Problems Problem Noted Date Diagnosed Date COPD, group B, by GOLD 2017 classification 09/27 Overview: Per COPD GOLD Classification Chronic kidney disease, stage 3a 08/30/2023 Overview: Per CKD protocol Protein-calorie malnutrition 08/02/2023 ILD (interstitial lung disease) 06/14/2023 Chronic systolic (congestive) heart failure 05/2022 Coronary artery disease invo lving [place] coronary [...] Gastroesophageal reflux disease without esophagi tis 03/15/2019 intermediate (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 of insulin 11/25/2018 Paroxysmal [...] as of this encounter (statuses as of 10/27/2023) Resolved Problems Problem Noted Date Diagnosed Date [...] update of inactive term lentigo maligna,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/05/2002 05/26/2018 Rosacea 07/28/2001 05/26/2018 LOC PRIM [id number] 07/28/2001 08/0 06/2018 documented as of this encounter (statuses as of 10/27/2023) Immunizations Name Administration Dates Next Due COVID-19 mRNA, LNP-s, No Pre serve, 2-Dose Series (Moderna) 08/27/2021,01/04/2021,12/02/2020 COVID-19, mRNA, LNP-s, PF, B ooster, 100mcg/0.5mg (Moderna) 05/07/2022 Covid-19, Mrna, Lnp-s, Pf, B ivalent, 30 Mcg, IM, 12 yrs and above ([employer]) 09/04/2022 H1N1 2009 Influenza, IM 09/22/2009 Hepatitis [...] Miscellaneous Notes * Telephone Encounter - Glo Murillo RN - 10/27/2023 7:[address] Garcia's routing comment: "Lets start with chemo first " * Telephone Encounter - Sloan Torres RN - 10/05/2023 10:34 AM EST Nursing- patient is to see Dr. Garcia on 10/25/23 to discuss restarting treatments. Current auth for Xgeva has , referral will need continued/discontinued based on discussion. documented in this encounter Plan of Treatment Upcoming Encounters Date Type Department Care Team (Late st Contact Info) Description 10/28/2023 1:30 PM EST Pharmacy Pharmacy Hematology Oncology [place] [address] [place] [address] [facility] Hem/Onc [address] [place] [address] 10/29/2023 1:30 PM EST Laboratory Laboratory [facility] [address] [place] [address] [place], Lab [facility] [address] [place] [address] 10/29/2023 2:30 PM EST Hem/Onc Treatment Hematology/Oncology Treatment, [place] [address] [place] [address] Ashley, Chair 5 Hem Onc [facility] [address] [place] [address] 11/04/2023 1:30 PM EST Office Visit Pulmonary Medicine, [place] [address] [place] [address] Jignesh Hendrickson MD [address] [place] [address] 12/14/2023 8:00 AM EST Office Visit Hematology/Oncology [facility] [address] [place] [address] Chito Garcia MD [address] [place] [address] 12/22/2023 2:00 PM EST Office Visit Pharmacy, [facility] [address] [place] [address] Pharmacist1, [facility] [address] [place] [address] 01/17/2024 3:00 PM EDT Office Visit [facility] [address] [place] [address] Landen Macario, DO [address] [place] [address] 05/09/2024 3:20 PM EDT Office Visit [facility] [address] [place] [address] Landen Macario, DO [address] [place] [address] Health Maintenance Due Date Last Done Comments [...] 03/02/2023, Additional history exists GFR 04/24/2024 10/25/2023, 12/0 02/2023, 08/02/2023, Additional history exists CKD PHOS USE SMARTSET 45670 09/21/2024 12/0 02/2023, 08/02/2023, 05/25/2023, Additional history exists CKD HGB USE SMARTSET 81142 10/25/202410/25, 10/25/2023, 09/21/2023, Additional history exists O2 [...] this encounter Medical Devices Implanted Type Area Radiologic Technology Program Director Device Identifier Shelf Expiration Date Model / Serial / Lot Lens Intraoc 24.0 - [id number] - [id number] Implanted:Qty: 1 on 08/16/2018 by Adan Colon MD at OR [facility] Right: Eye [employer] 11/17/2022 [id number] / [id number] / [id number] Lens Intraoc 24.0 - [id number] - [id number] Implanted:Qty: 1 on 08/23/2018 by Adan Colon MD at OR [facility] Left: Eye [employer]OMB 06/17/2023 [id number] / [id number] / [id number] Screw [employer] 3.1gap80ic - [id number] Implanted:Qty: 1 on 12/07/2019 by Amilcar Saavedra MD at OR [facility] Left: Foot EXACTECH [id number] / / documented as of this encounter [...] and were consensually agreed upon. Care Teams Imaging Assistant Relationship Specialty Start Date End Date Landen Macario DO [address] [place] [address] PCP - General Family Medicine 02/09/22 documented as of this encounter
--- OUTSIDE RECORDS SUMMARY | 2023-11-21 19:59 | External Medical Summary | Summary of Care ---
Author Name Unknown Organization [facility] Address [address] [place] [address] Phone [phone] Care Team Providers Care Perinatal Director Name Role Phone AhsanLanden nava Primary Care Provider [phone] Reason for Visit * Reason Onset Date Comments Appointment 10/26/2023 Encounter Details Date Type Department Care Team (Late st Contact Info) Description 10/26/2023 Telephone Hematology/Oncology Treatment, [place] [address] [place] [address] Chito Garcia MD [address] [place] [address] Appointment Allergies Active Allergy Reactions Criticality Noted Date Comments Tizanidine 06/27/2021 documented as of this encounter (statuses as of 10/26/2023) Medications Medication Sig Dispensed Refills Start Date [...] or Wheezing. 18 g 3 04/03/2022 Active W25-Mcxbea 1 MG Oral Tablet Chewable (Methylcobalamin) Take [...] 1 Each 3 03/04/2023 Active Dexcom G7 Study Abroad Coordinator Device Use to check blood sugar [...] 07/07/2023 Active dexAMETHasone 4 MG Oral Tablet (Decadron)Indicatio [...] as of this encounter (statuses as of 10/26/2023) Active Problems Problem Noted Date Diagnosed Date COPD, group B, by GOLD 2017 classification 09/27 Overview: Per COPD GOLD Classification Chronic kidney disease, stage 3a 08/30/2023 Overview: Per CKD protocol Protein-calorie malnutrition 08/02/2023 ILD (interstitial lung disease) 06/14/2023 Chronic systolic (congestive) heart failure 05/2022 Coronary artery disease invo lving [facility]. m[facility] [...] as of this encounter (statuses as of 10/26/2023) Resolved Problems Problem Noted Date Diagnosed Date [...] update of inactive term lentigo maligna,rt congregation 607/05/2002 05/26/2018 Rosacea 07/28/2001 05/26/2018 LOC PRIM [id number] 07/28/200106/2018 documented as of this encounter (statuses as of 10/26/2023) Immunizations Name Administration Dates Next Due COVID-19 [...] encounter Miscellaneous Notes * Telephone Encounter - Jemima Lange OSA - 10/26/2023 8:43 AM EST Called and lmom for patient. * Telephone Encounter - Glo Murillo RN - 10/26/2023 7:58 AM EST Order received to resume darzalex/ revlimid. [place] for darzalex adjusted. Referral in place. Scheduling: please call patient to schedule - labs "CBCd, CMP"- ok to do day prior if patient prefers - 1 hour appt "darzalex faspro" (Radha) MTM: [id number] for sending new rx for revlimid Thanks! documented in this encounter Plan of Treatment Upcoming Encounters Date Type Department Care Team (Late st Contact Info) Description 10/26/2023 9:15 AM EST Pharmacy Pharmacy Hematology Oncology [address] [address] [facility], [facility] Hem/Onc [facility] [place] [address] 10/26/2023 6:15 PM EST Scheduled Telephone Pharmacy Hematology Oncology [address] [address] [facility] Hem/Onc Tech [address] [place] [address] 11/04/2023 1:30 PM EST Office Visit Pulmonary Medicine, [place] [address] [place] [address] Jignesh Hendrickson MD [address] [place] [address] 12/14/2023 8:00 AM EST Office Visit Hematology/Oncology [facility] [place] [address] [place] [address] Chito Garcia MD [address] [place] [address] 12/22/2023 2:00 PM EST Office Visit Pharmacy, [facility] [place] [address] [place] [address] Pharmacist1, [facility] [address] [place] [address] 01/17/2024 3:00 PM EDT Office Visit [facility] [place] [address] [place] [address] Landen Macario, DO [address] [place] [address] 05/09/2024 3:20 PM EDT Office Visit [facility] [place] [address] [place] [address] Landen Macario, DO [address] [place] [address] Health Maintenance Due Date Last Done Comments [...] 08/2 05/2023, 03/02/2023, Additional history exists GFR 04/24/2024 10/25/2023, 12/0 02/2023, 08/02/2023, Additional history exists CKD PHOS USE SMARTSET 20408 09/21/2024 12/0 02/2023, 08/02/2023, 05/25/2023, Additional history exists CKD HGB USE SMARTSET 24475 10/25/202410/25, 10/25/2023, 09/21/2023, Additional history exists O2 [...] this encounter Medical Devices Implanted Type Area Muffler Tender Device Identifier Shelf Expiration Date Model / Serial / Lot Lens Intraoc 24.0 - [id number] - [id number] Implanted:Qty: 1 on 08/16/2018 by Adan Colon MD at OR [facility] Right: Eye BAUSCH & LOMB 11/17/2022 [id number] / [id number] / [id number] Lens Intraoc 24.0 - [id number] - [id number] Implanted:Qty: 1 on 08/23/2018 by Adan Colon MD at OR [facility] Left: Eye BAUSCH & LOMB 06/17/2023 [id number] / [id number] / [id number] Screw [employer] 3.5mal59sy - [id number] Implanted:Qty: 1 on 12/07/2019 by Amilcar Saavedra MD at OR [facility] Left: Foot EXACTECH [id number] / / documented as of this encounter [...] and were consensually agreed upon. Care Teams Perinatal Director Relationship Specialty Start Date End Date Landen Macario DO [address] [place] [address] PCP - General Family Medicine 02/09/22 documented as of this encounter
--- OUTSIDE RECORDS SUMMARY | 2023-11-21 19:59 | External Medical Summary | Summary of Care ---
Author Name Unknown Organization [facility] Address [address] [facility] [address] Phone [phone] Care Team Providers Care Catheterization Laboratory Technician Name Role Phone AhsanLanden nava Primary Care Provider [phone] Encounter Details Date Type Department Care Team (Late st Contact Info) Description 10/26/2023 Orders Only Hematology/Oncology [facility] 200 [facility] [place] [address] Chito Garcia MD 200 [place] [address] Multiple myeloma not having achieved remission (HCC)* [...] or Wheezing. 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 11/25/2018 Paroxysmal atrial [...] 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,rt adventist 607/05/2002 05/26/2018 Rosacea 07/28/2001 05/26/2018 LOC PRIM [id number] 07/28/200106/2018 documented as of this encounter (statuses [...] Team (Late st Contact Info) Description 10/26/2023 6:15 PM EST Scheduled Telephone Pharmacy Hematology Oncology [facility] [place] [address] [place] [address] [facility] Hem/Onc [facility] [address] [place] [address] 10/28/2023 1:30 PM EST Pharmacy Pharmacy Hematology Oncology [facility] [place] [address] [place] [address] [facility] Hem/Onc [facility] [place] [address] 10/29/2023 1:30 PM EST Laboratory Laboratory [facility] [address] [place] [id number] [place], Lab Scenery [address] [place] [address] 10/29/2023 2:30 PM EST Hem[facility] [address] [place] [address] Ashley, Chair 5 Hem Onc [facility] [address] [place] [address] 11/04/2023 1:30 PM EST Office Visit Pulmonary Medicine, [address] [address] Jignesh Hendrickson MD [facility] [place] [address] 12/14/2023 8:00 AM EST Office Visit Hematology/Oncology [facility] [place] [address] [place] [address] Chito Garcia MD 200 [facility] [place] [address] 12/22/2023 2:00 PM EST Office Visit Pharmacy, [facility] [place] [address] [place] [address] Pharmacist1, [facility] [address] [place] [address] 01/17/2024 3:00 PM EDT Office Visit [facility] [place] [address] [place] [address] Landen Macario, DO [address] [facility] [place] [address] 05/09/2024 3:20 PM EDT Office Visit [facility] [place] [address] [place] [address] Landen Macario, DO 200 [facility] [address] Health Maintenance Due Date Last Done Comments [...] Additional history exists CKD PHOS USE SMARTSET 37040 09/21/20240 02/2023, 08/02/2023, 05/25/2023, Additional history exists CKD HGB USE SMARTSET 30445 10/25/202410/25, 10/25/2023, 09/21/2023, Additional history exists O2 [...] this encounter Medical Devices Implanted Type Area Head Of Research & Insights Device Identifier Shelf Expiration Date Model / Serial / Lot Lens Intraoc 24.0 - [id number] - [id number] Implanted:Qty: 1 on 08/16/2018 by Adan Colon MD at OR [facility] Right: Eye BAUSCH & LOMB 11/17/2022 [id number] / [id number] / [id number] Lens Intraoc 24.0 - [id number] - [id number] Implanted:Qty: 1 on 08/23/2018 by Adan Colon MD at OR [facility] Left: Eye BAUSCH & LOMB 06/17/2023 [id number] / [id number] / [id number] Screw [employer] 3.0qsv01gi - [id number] Implanted:Qty: 1 on 12/07/2019 by Amilcar Saavedra MD at OR [facility] Left: Foot EXACTECH [id number] / / documented as of this encounter [...] and were consensually agreed upon. Care Teams Catheterization Laboratory Technician Relationship Specialty Start Date End Date Landen Macario DO [address] [place] [address] PCP - General Family Medicine 02/09/22 documented as of this encounter
--- OUTSIDE RECORDS SUMMARY | 2023-11-21 19:59 | External Medical Summary | Summary of Care ---
Author Name Unknown Organization [facility] Address [address] [place] [address] Phone [phone] Care Team Providers Care [employer] Advisor Name Role Phone Landen Macario Primary Care Provider [phone] Reason for Visit * Reason Comments Medication Management Encounter Details Date Type Department Care Team (Late st Contact Info) Description 10/26/2023 9:15 AM [facility] Pharmacy Pharmacy Hematology Oncology [facility] [address] [place], [place] [phone] [facility], [facility] Hem/Onc [address] [place], [place] [id number] Multiple myeloma not having achieved remission (HCC)* [...] or Wheezing. 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 11/25/2018 Paroxysmal atrial [...] 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,rt jew 6/07/05/2002 05/26/2018 Rosacea 07/28/2001 05/26/2018 LOC PRIM [id number] 07/28/2001 08/0 06/2018 documented as of this [...] this encounter Progress Notes * Poly Tam, [facility] - 10/26/2023 1:21 PM EST MEDICATION THERAPY MANAGEMENT LENALIDOMIDE (REVLIMID) TREATMENT PROGRESS NOTE Dev Hernandez [phone] Patient Phone Numbers Communication: Chart review Treatment: Medication: Lenalidomide (Revlimid) Indication/Staging/Diagnosis Code: Multiple Myeloma Dose: 10mg daily D1-21 every 28 days Administration: +/- food Start Date: 09/17/22 Primary Cryptographic Vulnerability Analyst/Oncologist: Dr. Garcia Additional Therapy: Daratumumab Dexamethasone Supportive [...] since last visit? No Assessment and Plan: Per discussion with Dr. Garcia, pt to resume lenalidomide at 10mg daily D1-21 every 28 dasy Alteration of treatment entered to reflect dose reduction [place] plan updated and sent to Dr. Garcia for signature MTM to follow up in 2 days to assess beacon plan signature and auth status Assessment of compliance: N/A Assessment of adverse effects attributed to drug therapy: N/A Dose adjustment needed based on lab or adverse drug reaction? Yes, resume Follow up: 2 days Poly Tam, PharmD, BCOP Clinical Pharmacist, [facility] Oral Chemotherapy [facility] 10/26/2023, 2:30 PM Time Spent on Encounter: 11 - 15 minutes Encounter Group: Hematology Encounter Interventions Item Category: Oral Chemotherapy Lenalidomide Problem/Rationale: Indication: Needs additional medication therapy - Untreated condition, - Synergistic therapy [place] Plan Review: Alteration of plan Pharmacist Intervention(s): Clarification with Provider, Dose decreased, and Medication resumed Magnitude of Intervention: Modification of medication for asymtomatic patients (Level 2) documented in this encounter Plan of Treatment Upcoming Encounters Date Type Department Care Team (Late st Contact Info) Description 10/26/2023 6:15 PM EST Scheduled Telephone Pharmacy Hematology Oncology [place] [address] [place] [address] [facility] Hem/Onc Tech [address] [place] [address] 10/28/2023 1:30 PM EST Pharmacy Pharmacy Hematology Oncology [place] [address] [place] [address] [facility] Hem/Onc [address] [place] [address] 10/29/2023 1:30 PM EST Laboratory Laboratory [address] [address] [place] [phone] [place], Lab Scenery [address] [place] [address] 10/29/2023 2:30 PM EST Hem/Onc Treatment Hematology/Oncology Treatment, [place] [address] [place] [address] Ashley, Chair 5 Hem Onc [address] [address] [place] [address] 11/04/2023 1:30 PM EST Office Visit Pulmonary Medicine, [place] [address] [place] [address] Jignesh Hendrickson MD [address] [place] [address] 12/14/2023 8:00 AM EST Office Visit Hematology/Oncology [facility] 200 [place] [address] Chito Garcia MD [address] [place] [address] 12/22/2023 2:00 PM EST Office Visit Pharmacy, [facility] [address] [place] [address] Pharmacist1, [facility] 200 [facility] [place] [address] 01/17/2024 3:00 PM EDT Office Visit [facility] [address] [facility] [place] [address] Landen Macario, DO [address] [place] [address] 05/09/2024 3:20 PM EDT Office Visit [facility] [address] [facility] [place] [address] Landen Macario, DO 200 [place] [address] Health Maintenance Due Date Last Done Comments [...] Additional history exists CKD PHOS USE SMARTSET 43213 09/21/2024 12/0 02/2023, 08/02/2023, 05/25/2023, Additional history exists CKD HGB USE SMARTSET 48282 10/25/202410/25, 10/25/2023, 09/21/2023, Additional history exists O2 [...] this encounter Medical Devices Implanted Type Area River Tester Device Identifier Shelf Expiration Date Model / Serial / Lot Lens Intraoc 24.0 - [id number] - [id number] Implanted:Qty: 1 on 08/16/2018 by Adan Colon MD at OR [facility] Right: Eye BAUSCH & LOMB 11/17/2022 [id number] / [id number] / [id number] Lens Intraoc 24.0 - [id number] - [id number] Implanted:Qty: 1 on 08/23/2018 by Adan Colon MD at OR [facility] Left: Eye BAUSCH & LOMB 06/17/2023 [id number] / [id number] / [id number] Screw [employer] 3.5gwt88oz - [id number] Implanted:Qty: 1 on 12/07/2019 by Amilcar Saavedra MD at OR [facility] Left: Foot EXACTECH [id number] / / documented as of this encounter [...] and were consensually agreed upon. Care Teams [employer] Advisor Relationship Specialty Start Date End Date Landen Macario DO [address] [place] [address] PCP - General Family Medicine 02/09/22 documented as of this encounter
--- OUTSIDE RECORDS SUMMARY | 2023-11-21 19:59 | External Medical Summary | Summary of Care ---
Author Name Unknown Organization [facility] Address [address] [place] [address] Phone [phone] Care Team Providers Care Staff Weapons Officer Name Role Phone AhsanLanden nava Primary Care Provider [phone] Reason for Visit * Reason Onset Date Comments Appointment 10/26/2023 Encounter Details Date Type Department Care Team (Late st Contact Info) Description 10/26/2023 Telephone Hematology/Oncology Treatment, [place] [address] [place] [address] Chito Garcia MD [address] [place] [address] Appointment Allergies Active Allergy Reactions Criticality Noted [...] or Wheezing. 18 g 3 04/03/2022 Active C57-Qxyyzi 1 MG Oral Tablet Chewable (Methylcobalamin) Take [...] 1 Each 3 03/04/2023 Active Dexcom G7 Crew Chief Device Use to check blood sugar 1 [...] the morning. 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 11/25/2018 Paroxysmal atrial [...] update of inactive term lentigo maligna,rt lutheran 07/05/2002 05/26/2018 Rosacea 07/28/2001 05/26/2018 LOC PRIM [id number] 07/28/200106/2018 documented as of this encounter (statuses [...] encounter Miscellaneous Notes * Addendum Note - Clint Murillo RN - 10/28/2023 1:05 PM ESTAddended by: CLINT MURILLO on: 10/28/2023 01:05 PM Modules accepted: Orders * Telephone Encounter - Clint Murillo RN - 10/28/2023 1:[address] Garcia's routing comment: "maintenance protocol of the Chris protocol including combination of Darzalex on monthly basis with Revlimid 15 mg for 21 days of every 28 days. It does not include Decadron" Called patient, who verbalized understanding. * Telephone Encounter - Clint Murillo RN - 10/27/2023 7:37 AM EST MTM already aware to send rx for revlimid. Patient previously taking decadron 20mg PO once a week. Dr Garcia: do you want him to restart this as well? * Telephone Encounter - Jemima Lange OSA - 10/26/2023 1:37 PM EST Nursing-Returned patients call and he is scheduled for lab work and tx for 10/29/23. Patient asking about Revlimid. Need refilled and sent to [facility] in [place]. Also patient asking if he needs to take the decadron prior. Please contact patient and advise. Thank you. * Telephone Encounter - Nova Fabian OSA - 10/26/2023 12:25 PM EST Patient is calling back to get scheduled Please call him back on his home number * Telephone Encounter - Jemima Lange OSA - 10/26/2023 8:43 AM EST Called and lmom for patient. * Telephone Encounter - Clint Murillo RN - 10/26/2023 7:58 AM EST Order received to resume darzalex/ revlimid. [place] for darzalex adjusted. Referral in place. Scheduling: please call patient to schedule - labs "CBCd, CMP"- ok to do day prior if patient prefers - 1 hour appt "darzalex faspro" (Radha) [facility]: NESHA for sending new rx for revlimid Thanks! documented in this encounter Plan of Treatment Upcoming Encounters Date Type Department Care Team (Late st Contact Info) Description 10/28/2023 1:30 PM EST Pharmacy Pharmacy Hematology Oncology [facility] [address] [place] [address] [facility], [facility] Hem/Onc [address] [place] [address] 10/29/2023 1:30 PM EST Laboratory Laboratory [address] [place] [address] [place], Lab Scenery [address] [facility] [address] 10/29/2023 2:30 PM EST Hem/Onc Treatment Hematology/Oncology Treatment, [place] [address] [place] [address] Ashley, Chair 5 Hem Onc [facility] [address] [place] [address] 11/04/2023 1:30 PM EST Office Visit Pulmonary Medicine, [place] [address] [place] [address] Jignesh Hendrickson MD [address] [place] [address] 12/14/2023 8:00 AM EST Office Visit Hematology/Oncology [facility] [place] [address] [place] [address] Chito Garcia MD [address] [place] [address] 12/22/2023 2:00 PM EST Office Visit Pharmacy, [facility] [place] [address] [place] [address] Pharmacist1, [facility] Sp [address] [facility] [address] 01/17/2024 3:00 PM EDT Office Visit [facility] [place] [address] [place] [address] Landen Macario, DO [address] [place] [address] 05/09/2024 3:20 PM EDT Office Visit [facility] [place] [address] [place] [address] Landen Macario, DO [address] [place], [place] [address] Health Maintenance Due Date Last Done Comments [...] Additional history exists CKD PHOS USE SMARTSET 57757 09/21/2024 12/0 02/2023, 08/02/2023, 05/25/2023, Additional history exists CKD HGB USE SMARTSET 05861 10/25/202410/25, 10/25/2023, 09/21/2023, Additional history exists O2 [...] this encounter Medical Devices Implanted Type Area Cotton Wringer Device Identifier Shelf Expiration Date Model / Serial / Lot Lens Intraoc 24.0 - [id number] - [id number] Implanted:Qty: 1 on 08/16/2018 by Adan Colon MD at OR [facility] Right: Eye BAUSCH & LOMB 11/17/2022 [id number] / [id number] / [id number] Lens Intraoc 24.0 - [id number] - [id number] Implanted:Qty: 1 on 08/23/2018 by Adan Colon MD at OR [facility] Left: Eye BAUSCH & LOMB 06/17/2023 [id number] / [id number] / [id number] Screw [employer] 3.9nhz99oz - [id number] Implanted:Qty: 1 on 12/07/2019 by Amilcar Saavedra MD at OR [facility] Left: Foot EXACTECH [id number] / / documented as of this encounter [...] and were consensually agreed upon. Care Teams Staff Weapons Officer Relationship Specialty Start Date End Date Landen Macario DO [address] [place] [address] PCP - General Family Medicine 02/09/22 documented as of this encounter
--- OUTSIDE RECORDS SUMMARY | 2023-11-21 19:59 | External Medical Summary | Summary of Care ---
Author Name Unknown Organization [facility] Address [address] [place] [address] Phone [phone] Care Team Providers Care Physical Medicine Specialist Name Role Phone AhsanLanden nava Primary Care Provider [phone] Reason for Visit * Reason Onset Date Comments Appointment 10/26/2023 Encounter Details Date Type Department Care Team (Late st Contact Info) Description 10/26/2023 Telephone Hematology/Oncology Treatment, [place] [address] [place] [address] Chito Garcia MD 200 [place] [address] Appointment Allergies Active Allergy Reactions Criticality Noted [...] or Wheezing. 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 * Telephone Encounter - Glo Murillo RN - 10/26/2023 7:58 AM EST Order received to resume darzalex/ revlimid. [place] for darzalex adjusted. Referral in place. Scheduling: please call patient to schedule - labs "CBCd, CMP"- ok to do day prior if patient prefers - 1 hour appt "darzalex faspro" (Radha) MTM: NESHA for sending new rx for revlimid Thanks! documented in this encounter Plan of Treatment Upcoming Encounters Date Type Department Care Team (Late st Contact Info) Description 10/26/2023 6:15 PM EST Scheduled Telephone Pharmacy Hematology Oncology [address] [address] [facility] Hem/Onc Tech [address] [place] [address] 11/04/2023 1:30 PM EST Office Visit Pulmonary Medicine, [place] [address] [place] [address] Jignesh Hendrickson MD [address] [place] [address] 12/14/2023 8:00 AM EST Office Visit Hematology/Oncology [facility] 200 [facility] [place] [address] Chito Garcia MD 200 [facility] [place] [address] 12/22/2023 2:00 PM EST Office Visit Pharmacy, [facility] [address] [facility] [address] [place] [address] Pharmacist1, [facility] 200 [facility] [place] [address] 01/17/2024 3:00 PM EDT Office Visit [facility] [place] [address] [place] [address] Landen Macario, DO [address] [place] [address] 05/09/2024 3:20 PM EDT Office Visit [facility] [place] [address] [place] [address] Landen Macario, DO [address] [place] [address] Health Maintenance Due Date Last Done Comments [...] Additional history exists CKD PHOS USE SMARTSET 47162 09/21/2024 12/0 02/2023, 08/02/2023, 05/25/2023, Additional history exists CKD HGB USE SMARTSET 46502 10/25/202410/25, 10/25/2023, 09/21/2023, Additional history exists O2 [...] this encounter Medical Devices Implanted Type Area Medical File Clerk Device Identifier Shelf Expiration Date Model / Serial / Lot Lens Intraoc 24.0 - [id number] - [id number] Implanted:Qty: 1 on 08/16/2018 by Adan Colon MD at OR [facility] Right: Eye BAUSCH & LOMB 11/17/2022 [id number] / [id number] / [id number] Lens Intraoc 24.0 - [id number] - [id number] Implanted:Qty: 1 on 08/23/2018 by Adan Colon MD at OR [facility] Left: Eye BAUSCH & LOMB 06/17/2023 [id number] / [id number] / [id number] Screw [employer] 3.0qnx54lm - [id number] Implanted:Qty: 1 on 12/07/2019 by Amilcar Saavedra MD at OR [facility] Left: Foot EXACTECH [id number] / / documented as of this encounter [...] were consensually agreed upon. Care Teams Physical Medicine Specialist Relationship Specialty Start Date End Date Landen Macario DO 200 [facility] [place] [address] PCP - General Family Medicine 02/09/22 documented as of this encounter
--- OUTSIDE RECORDS SUMMARY | 2023-11-21 19:59 | External Medical Summary | Summary of Care ---
Author Name Unknown Organization [facility] Address [address] [place] [address] Phone [phone] Care Team Providers Care Arch Support Technician Name Role Phone AhsanLanden nava Primary Care Provider [phone] Reason for Visit * Reason Onset Date Comments Appointment 10/26/2023 Encounter Details Date Type Department Care Team (Late st Contact Info) Description 10/26/2023 Telephone Hematology/Oncology Treatment, [place] [address] [place] [address] Chito Garcia MD 200 [place] [address] Appointment Allergies Active Allergy Reactions Criticality Noted [...] or Wheezing. 18 g 3 04/03/2022 Active P17-Vstnmj 1 MG Oral Tablet Chewable (Methylcobalamin) Take [...] Each 3 03/04/2023 Active Dexcom G7 Insurance Adjustor Device Use to check blood sugar 1 [...] failure 05/2022 Coronary artery disease invo lving [place] coronary artery of [place] heart without angina pectoris 06/25/2022 Presence of [...] Gastroesophageal reflux disease without esophagi tis 03/15/2019 group home (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 of insulin 11/25/2018 Paroxysmal [...] update of inactive term lentigo maligna,rt protestant 607/05/2002 05/26/2018 Rosacea 07/28/2001 05/26/2018 LOC PRIM [id number] 07/28/200106/2018 documented as of this encounter (statuses [...] Encounter - Glo Murillo RN - 10/27/2023 7:37 AM EST [...] about Revlimid. Need refilled and sent to [facility] in [place]. Also patient asking if he needs to [...] EST Order received to resume darzalex/ revlimid. [place] for darzalex adjusted. Referral in place. Scheduling: [...] 1:30 PM EST Pharmacy Pharmacy Hematology Oncology [address] [address] [facility], [facility] Hem/Onc [address] [place] [address] 10/29/2023 1:30 PM EST Laboratory Laboratory [facility] [address] [place] [address] [place], Lab Scenery [address] [place] [address] 10/29/2023 2:30 PM EST Hem/Onc Treatment Hematology/Oncology Treatment, [place] [address] [place] [address] Ashley, Chair 5 Hem Onc [place] [address] [place] [address] 11/04/2023 1:30 PM EST Office Visit Pulmonary Medicine, [address] [address] Jignesh Hendrickson MD [address] [place] [address] 12/14/2023 8:00 AM EST Office Visit Hematology/Oncology [facility] [address] [place] [address] Chito Garcia MD [address] [place] [address] 12/22/2023 2:00 PM EST Office Visit Pharmacy, [facility] [place] [address] [place] [address] Pharmacist1, [facility] Sp [address] [place] [address] 01/17/2024 3:00 PM EDT Office Visit Family Practice [facility] [address] [place] [address] Landen Macario, DO [address] [place], [place] [address] 05/09/2024 3:20 PM EDT Office Visit [facility] [place] [address] [place] [address] Landen Macario, DO [address] [place] [address] Health Maintenance Due Date Last Done Comments [...] 07/08/2021, Additional history exists HbA1c 03/22/2024 09/21/2023, 0805/2023, 03/02/2023, Additional history exists GFR 04/24/2024 10/25/2023, 02/2023, 08/02/2023, Additional history exists CKD PHOS USE SMARTSET 54016 09/21/202402/2023, 08/02/2023, 05/25/2023, Additional history exists CKD HGB USE SMARTSET 96643 10/25/202410/25, 10/25/2023, 09/21/2023, Additional history exists O2 [...] this encounter Medical Devices Implanted Type Area Blind Hanger Device Identifier Shelf Expiration Date Model / Serial / Lot Lens Intraoc 24.0 - [id number] - [id number] Implanted:Qty: 1 on 08/16/2018 by Adan Colon MD at OR [facility] Right: Eye BAUSCH & LOMB 11/17/2022 [id number] / [id number] / [id number] Lens Intraoc 24.0 - [id number] - [id number] Implanted:Qty: 1 on 08/23/2018 by Adan Colon MD at OR [facility] Left: Eye BAUSCH & LOMB 06/17/2023 [id number] / [id number] / [id number] Screw [employer] 3.4wqc40xk - [id number] Implanted:Qty: 1 on 12/07/2019 by Amilcar Saavedra MD at OR [facility] Left: Foot EXACTECH [id number] / / documented as of this encounter [...] and were consensually agreed upon. Care Teams Arch Support Technician Relationship Specialty Start Date End Date Landen Macario DO [address] [place] [address] PCP - General Family Medicine 02/09/22 documented as of this encounter
--- OUTSIDE RECORDS SUMMARY | 2023-11-21 19:59 | External Medical Summary | Summary of Care ---
Author Name Unknown Organization [facility] Address [address] [place] [address] Phone [phone] Care Team Providers Care Igniter Capper Name Role Phone AhsanLanden nava Primary Care Provider [phone] Reason for Visit * Reason Onset Date Comments Appointment 10/26/2023 Encounter Details Date Type Department Care Team (Late st Contact Info) Description 10/26/2023 Telephone Hematology/Oncology Treatment, [place] [address] [place] [address] Chito Garcia MD [address] [place] [address] Appointment Allergies Active Allergy Reactions Criticality Noted [...] or Wheezing. 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 Need refilled and sent to [facility] in [place]. Also patient asking if he needs to [...] lmom for patient. * Telephone Encounter - Gol Murillo RN - 10/26/2023 7:58 AM EST Order received to resume darzalex/ revlimid. [place] for darzalex adjusted. Referral in place. Scheduling: please call patient to schedule - labs "CBCd, CMP"- ok to do day prior if patient prefers - 1 hour appt "darzalex faspro" (Radha) MTM: FYI for sending new rx for revlimid Thanks! documented in this encounter Plan of Treatment Upcoming Encounters Date Type Department Care Team (Late st Contact Info) Description 10/26/2023 6:15 PM EST Scheduled Telephone Pharmacy Hematology Oncology [facility] [place] [address] [place] [address] [facility] Hem/Onc [place] [address] [place] [address] 10/29/2023 1:30 PM EST Laboratory Laboratory [facility] [address] [place] [phone] [place], Lab [facility] 200 [facility] [place] [address] 10/29/2023 2:30 PM EST Hem/Onc Treatment Hematology/Oncology Treatment, [place] [address] [place] [address] Ashley, Chair 5 Hem On[address] [place] [address] 11/04/2023 1:30 PM EST Office Visit Pulmonary Medicine, [place] [address] [place] [address] Jignesh Hendrickson MD [address] [place] [address] 12/14/2023 8:00 AM EST Office Visit Hematology/Oncology [facility] [place] [address] [place] [address] Chito Garcia MD [address] [place] [address] 12/22/2023 2:00 PM EST Office Visit Pharmacy, [facility] [place] [address] [place] [address] Pharmacist1, [facility] [address] [place] [address] 01/17/2024 3:00 PM EDT Office Visit [facility] [address] [place] [address] Landen Macario, DO [address] [place] [address] 05/09/2024 3:20 PM EDT Office Visit [facility] [place] [address] [place] [address] Landen Macario, DO [address] [place] [address] Health Maintenance Due Date Last Done Comments [...] Additional history exists CKD PHOS USE SMARTSET 74469 09/21/202402/2023, 08/02/2023, 05/25/2023, Additional history exists CKD HGB USE SMARTSET 53771 10/25/202410/25, 10/25/2023, 09/21/2023, Additional history exists O2 [...] this encounter Medical Devices Implanted Type Area Flatwork Supervisor Device Identifier Shelf Expiration Date Model / Serial / Lot Lens Intraoc 24.0 - [id number] - [id number] Implanted:Qty: 1 on 08/16/2018 by Adan Colon MD at OR [facility] Right: Eye BAUSCH & LOMB 11/17/2022 [id number] / [id number] / [id number] Lens Intraoc 24.0 - [id number] - [id number] Implanted:Qty: 1 on 08/23/2018 by Adan Colon MD at OR [facility] Left: Eye BAUSCH & LOMB 06/17/2023 [id number] / [id number] / [id number] 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 Care Teams Igniter Capper Relationship Specialty Start Date End Date Landen Macario DO 200 [facility] [place] [address] PCP - General Family Medicine 02/09/22 documented as of this encounter
--- OUTSIDE RECORDS SUMMARY | 2023-11-21 19:59 | External Medical Summary | Summary of Care ---
Author Name Unknown Organization [facility] Address [address] [place] [address] Phone [phone] Care Team Providers Care Marketing Communications Coordinator Name Role Phone Landen Macario Primary Care Provider [phone] Reason for Visit * Reason Onset Date Comments Medication Update 10/26/2023 Encounter Details Date Type Department Care Team (Latest Contact Info) Description 10/26/2023 6:15 PM EST Scheduled Telephone Pharmacy Hematology Oncology [facility] [address] [place], [place] [phone] [facility] Hem/Onc [facility] [address] [place], [place] [phone] Multiple myeloma not having achieved remission (HCC)* [...] or Wheezing. 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 11/25/2018 Paroxysmal [...] of inactive term lentigo maligna,rt scientology 07/05/2002 05/26/2018 Rosacea 07/28/2001 05/26/2018 LOC PRIM [id number] 07/28/200106/2018 documented as of this encounter (statuses [...] encounter Miscellaneous Notes * Telephone Encounter - Ashlee Ortiz CPhT - 10/27/2023 8:51 AM EST [place] authorization number obtained for Lenalidomide 10mg day - [id number] Ashlee Ortiz Customer Experience Intern II [facility] Oral Chemotherapy Clinic 10/27/2023 8:52 AM documented in this encounter Plan of Treatment Upcoming Encounters Date Type Department Care Team (Late st Contact Info) Description 10/28/2023 1:30 PM EST Pharmacy Pharmacy Hematology Oncology [place] [address] [place] [address] [facility], [facility] Hem/Onc [address] [place] [address] 10/29/2023 1:30 PM EST [facility] [place] [place] [address] [place] [phone] [place], Lab [place]en[place] [address] [place] [address] 10/29/2023 2:30 PM EST Hem/Onc Treatment Hematology/Oncology Treatment, [place] [address] [place] [address] Ashley, Chair 5 Hem Onc [place] [address] [place] [address] 11/04/2023 1:30 PM EST Office Visit Pulmonary Medicine, [place] [address] [place] [address] Jignesh Hendrickson MD [address] [place] [address] 12/14/2023 8:00 AM EST Office Visit Hematology/Oncology [facility] 200 [place] [address] Chito Garcia MD 200 [place] [address] 12/22/2023 2:00 PM EST Office Visit Pharmacy, [facility] 200 [facility] [place] [address] Pharmacist1, [facility] 200 [facility] [address] 01/17/2024 3:00 PM EDT Office Visit [facility] 200 [place] [address] Landen Macario, DO [address] [place] [address] 05/09/2024 3:20 PM EDT Office Visit [facility] [address] [place] [address] Landen Macario, DO 200 [facility] [place] [address] Health Maintenance Due Date Last Done Comments [...] Additional history exists CKD PHOS USE SMARTSET 15792 09/21/2024 12/0 02/2023, 08/02/2023, 05/25/2023, Additional history exists CKD HGB USE SMARTSET 10956 10/25/202410/25, 10/25/2023, 09/21/2023, Additional history exists O2 [...] this encounter Medical Devices Implanted Type Area Shooting Gallery Operator Device Identifier Shelf Expiration Date Model / Serial / Lot Lens Intraoc 24.0 - [id number] - [id number] Implanted:Qty: 1 on 08/16/2018 by Adan Colon MD at OR [facility] Right: Eye BAUSCH & LOMB 11/17/2022 [id number] / [id number] / [id number] Lens Intraoc 24.0 - [id number] - [id number] Implanted:Qty: 1 on 08/23/2018 by Adan Colon MD at OR [facility] Left: Eye BAUSCH & LOMB 06/17/2023 [id number] / [id number] / [id number] Screw [employer] 3.9kls55ix - [id number] Implanted:Qty: 1 on 12/07/2019 by Amilcar Saavedra MD at OR [facility] Left: Foot EXACTECH [id number] / / documented as of this encounter [...] were consensually agreed upon. Care Teams Marketing Communications Coordinator Relationship Specialty Start Date End Date Landen Macario DO [address] [place] [address] PCP - General Family Medicine 02/09/22 documented as of this encounter
--- OUTSIDE RECORDS SUMMARY | 2023-11-21 19:59 | External Medical Summary | Summary of Care ---
Author Name Unknown Organization [facility] Address [address] [place] [address] Phone [phone] Care Team Providers Care Sql Programmer Analyst Name Role Phone AhsanLanden nava Primary Care Provider [phone] Reason for Visit * Reason Onset Date Comments Appointment 10/26/2023 Encounter Details Date Type Department Care Team (Late st Contact Info) Description 10/26/2023 Telephone Hematology/Oncology Treatment, [place] [address] [place] [address] Chito Garcia MD [address] [place] [address] Appointment Allergies Active Allergy Reactions Criticality Noted [...] or Wheezing. 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 [place] for darzalex adjusted. Referral in place. Scheduling: [...] 9:15 AM EST Pharmacy Pharmacy Hematology Oncology [facility]3], [address] [address] [facility] Hem/Onc [address] [place] [address] 10/26/2023 6:15 PM EST Scheduled Telephone Pharmacy Hematology Oncology [address] [address] [facility] Hem/Onc Tech [address] [place] [address] 11/04/2023 1:30 PM EST Office Visit Pulmonary Medicine, [address] [address] Jignesh Hendrickson MD [facility] [place] [address] 12/14/2023 8:00 AM EST Office Visit Hematology/Oncology [facility] [place] [address] [place] [address] Chito Garcia MD [address] [place] [address] 12/22/2023 2:00 PM EST Office Visit Pharmacy, [facility] [place] [address] [place] [address] Pharmacist1, [facility] Sp [address] [place] [address] 01/17/2024 3:00 PM EDT Office Visit Family Practice [facility] [place] [address] [place] [address] Landen Macario, DO [address] [place] [address] 05/09/2024 3:20 PM EDT Office Visit [facility] [place] [address] [place] [address] Landen Macario, DO [address] [place] [address] Health Maintenance Due Date Last Done Comments [...] Additional history exists CKD PHOS USE SMARTSET 09724 09/21/202402/2023, 08/02/2023, 05/25/2023, Additional history exists CKD HGB USE SMARTSET 32712 10/25/202410/25, 10/25/2023, 09/21/2023, Additional history exists O2 [...] this encounter Medical Devices Implanted Type Area Psychology Department Chair Device Identifier Shelf Expiration Date Model / Serial / Lot Lens Intraoc 24.0 - [id number] - [id number] Implanted:Qty: 1 on 08/16/2018 by Adan Colon MD at OR [facility] Right: Eye BAUSCH & LOMB 11/17/2022 [id number] / [id number] / [id number] Lens Intraoc 24.0 - [id number] - [id number] Implanted:Qty: 1 on 08/23/2018 by Adan Colon MD at OR [facility] Left: Eye BAUSCH & LOMB 06/17/2023 [id number] / [id number] / [id number] Screw [employer] 3.1xeh56mg - [id number] Implanted:Qty: 1 on 12/07/2019 by Amilcar Saavedra MD at OR [facility] Left: Foot EXACTECH [id number] / / documented as of this encounter [...] and were consensually agreed upon. Care Teams Sql Programmer Analyst Relationship Specialty Start Date End Date Landen Macario DO [address] [place] [address] PCP - General Family Medicine 02/09/22 documented as of this encounter
--- OUTSIDE RECORDS SUMMARY | 2023-11-21 19:59 | External Medical Summary | Summary of Care ---
Author Name Unknown Organization [facility] Address [address] [place] [address] Phone [phone] Care Team Providers Care Jewelry Racker Name Role Phone Landen Macario DO Primary Care Provider [phone] Encounter Details Date Type Department Care Team (Late st Contact Info) Description 10/26/2023 Orders Only Hematology/Oncology, [facility] [address] [place], [place] [id number] Chito Garcia MD [address] [place] [address] Allergies Active Allergy Reactions Criticality Noted Date [...] or Wheezing. 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 Hem/Onc [place] [address] [place] [address] 10/28/2023 1:30 PM EST Pharmacy Pharmacy Hematology Oncology [facility], [place] [address] [place] [address] [facility] Hem/Onc [address] [place] [address] 10/29/2023 1:30 PM EST Laboratory Laboratory [facility] [address] [place] [phone] Ashley, Lab Scenery [address] [place] [address] 10/29/2023 2:30 PM EST Hem/Onc Treatment Hematology/Oncology Treatment, [place] [address] [place] [address] Ashley, Chair 5 Hem Onc Scenery [address] [place] [address] 11/04/2023 1:30 PM EST Office Visit Pulmonary Medicine, [address] [address] [facility] [place] [address] 12/14/2023 8:00 AM EST Office Visit Hematology/Oncology [facility] [address] [place] [address] Chito Garcia MD 200 [facility] [place] [address] 12/22/2023 2:00 PM EST Office Visit Pharmacy, [facility] [place] [address] [place] [address] Pharmacist1, [facility] [address] [place] [address] 01/17/2024 3:00 PM EDT Office Visit Family [facility] [address] [place] [address] Landen Macario, DO 200 [facility] [place] [address] 05/09/2024 3:20 PM EDT Office Visit [facility] [address] [place] [address] Landen Macario, DO 200 [facility] [place] [address] Health Maintenance Due Date Last Done Comments [...] 03/02/2023, Additional history exists GFR 04/24/2024 10/25/2023, 1202/2023, 08/02/2023, Additional history exists CKD PHOS USE SMARTSET 71715 09/21/202402/2023, 08/02/2023, 05/25/2023, Additional history exists CKD HGB USE SMARTSET 01050 10/25/202410/25, 10/25/2023, 09/21/2023, Additional history exists O2 [...] this encounter Medical Devices Implanted Type Area Warp Tier Device Identifier Shelf Expiration Date Model / Serial / Lot Lens Intraoc 24.0 - [id number] - [id number] Implanted:Qty: 1 on 08/16/2018 by Adan Colon MD at OR [facility] Right: Eye [employer] 11/17/2022 [id number] / [id number] / [id number] Lens Intraoc 24.0 - [id number] - [id number] Implanted:Qty: 1 on 08/23/2018 by Adan Colon MD at OR [facility] Left: Eye [employer]OM[employer] 06/17/2023 [id number] / [id number] / [id number] Screw [employer] 3.0vaq74om - [id number] Implanted:Qty: 1 on 12/07/2019 by Amilcar Saavedra MD at OR [facility] Left: Foot EXACTECH [id number] / / documented as of this encounter [...] and were consensually agreed upon. Care Teams Jewelry Racker Relationship Specialty Start Date End Date Landen Macario DO [address] [place] [address] PCP - General Family Medicine 02/09/22 documented as of this encounter
--- OUTSIDE RECORDS SUMMARY | 2023-11-21 20:00 | External Medical Summary ---
Author Name Unknown Address Unknown Organization K09:[facility] [place] [address] Laboratory Report Ordering Provider Test Date Status ANIBAL FIERRO 10/25/2023 10:46:21 Final Observation Date Value Abnormality Reference (Units ) Status WBC, Total 10/25/2023 10:46:21 6.61 4.00-10.8 0 (K/uL) Final RBC 10/25/2023 10:46:21 3.58 4.50-5.25 (M/uL) Final Hemoglobin 10/25/2023 10:46:21 11.0 Below low normal 14 .0-16.8 (g/dL) Final HCT 10/25/2023 10:46:21 34.5 Below low normal 40. 0-48.4 (%) Final MCV 10/25/2023 10:46:21 96.4 82.0-99.5 (fL) Final MCH 10/25/2023 10:46:21 30.7 27.0-34.0 (pg) Final MCHC 10/25/2023 10:46:21 31.9 32.0-36.0 (g/dL) Final RDW 10/25/2023 10:46:21 16.2 11.5-15.5 (%) Final Platelets 10/25/2023 10:46:21 171 140-400 (K /uL) Final MPV 10/25/2023 10:46:21 10.0 6.6-11.1 ( fL) Final Performing Location [facility] [place] [address]
--- OUTSIDE RECORDS SUMMARY | 2023-11-21 20:00 | External Medical Summary ---
Author Name Unknown Address Unknown Organization : Laboratory Report Ordering Provider Test Date Status ANIBAL FIERRO 10/25/2023 10:46:21 Final Observation Date Value Abnormality Reference (Units ) Status Beta-2 Microglobulin 10/25/2023 10:46:21 3.26 Above high normal <=2.51 (mg/L) Final This test was performed usin g the Leal
Immunoturbidimetric method. Values obtained
from different assay methods cannot be used
interchangeably. Beta-2 Microglobulin levels,
regardless of value, should not be interpreted
as absolute evidence of the presence or absence of
disease.

Test Performed at:
[email or web address]
[address] [facility]
[place] [address]
Sloan Sotelo M.D., Ph.D.,Director of Laboratories Performing Location
--- OUTSIDE RECORDS SUMMARY | 2023-11-21 20:00 | External Medical Summary | Summary of Care ---
Author Name Unknown Organization [facility] Address [address] [facility] [address] Phone [phone] Care Team Providers Care Book Critic Name Role Phone Landen Macario Primary Care Provider [phone] Reason for Visit * Reason Comments Follow Up 4wk Encounter Details Date Type Department Care Team (Late st Contact Info) Description 10/25/2023 10:15 AM EST Office Visit Hematology/Oncology [facility] [place] [address] [facility] [place] [address] Chito Garcia MD [address] [facility] [place] [address] Multiple myeloma not having achieved remission (HCC)* Allergies Active Allergy Reactions Criticality Noted Date Comments Tizanidine 06/27/2021 documented as of this encounter (statuses as of 10/25/2023) Medications Medication Sig Dispensed Refills Start Date [...] or Wheezing. 18 g 3 04/03/2022 Active R11-Zpqllw 1 MG Oral Tablet Chewable (Methylcobalamin) Take [...] 1 Each 3 03/04/2023 Active Dexcom G7 Systems Consultant Device Use to check blood sugar [...] as of this encounter (statuses as of 10/25/2023) Active Problems Problem Noted Date Diagnosed Date COPD, group B, by GOLD 2017 classification 09/27 Overview: Per COPD GOLD Classification Chronic kidney disease, stage 3a 08/30/2023 Overview: Per CKD protocol Protein-calorie malnutrition 08/02/2023 ILD (interstitial lung disease) 06/14/2023 Chronic systolic (congestive) heart failure 05/2022 Coronary artery disease invo lving viejas coronary artery of viejas heart without angina pectoris 06/25/2022 Presence of [...] reflux disease without esophagi tis 03/15/2019 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 11/25/2018 Paroxysmal atrial [...] as of this encounter (statuses as of 10/25/2023) Resolved Problems Problem Noted Date Diagnosed Date [...] 07/05/2002 05/26/2018 Rosacea 07/28/2001 05/26/2018 LOC PRIM [id number] 07/28/2001 08/0 06/2018 documented as of this encounter (statuses as of 10/25/2023) Immunizations Name Administration Dates Next Due COVID-19 [...] Sign Reading Time Taken Comments Blood Pressure 111/78 10/25/2023 10:02 AM EST Pulse 100 10/25/2023 10:02 AM EST Temperature 36.9 C (98.4 F) 10/25/2023 10:[address] Respiratory Rate 16 10/25/2023 10:02 AM EST Oxygen Saturation 94% 10/25/2023 10:02 AM EST Inhaled Oxygen Concentration - - Weight 69.2 kg (152 lb 9.6 oz) 10/25/2023 10:02 AM EST Height - - Body Mass Index 20.84 01/11/2023 3:38 PM EDT documented in this encounter Progress Notes * Chito Garcia MD - 10/25/2023 10:15 AM EST Outpatient Consult Note Data Source: Patient, [facility] record. Data Source: Patient, [facility] record. 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 Current Treatment: Treatment started on on 09/17/22 with Darzalex plus Revlimid and Decadron because of the disease progression. Received last dose on 05/25/2023 and currently on hold because of the deterioration of theperformance status Previous Treatment: VRd - 09/15/21-05/06/22 Revlimid plus Velcade and Decadron - treatment on hold because of other comorbid condition. He was also evaluated for the stem cell transplant but not eligible because of comorbid conditions. Received Revlimid between 03/16/2022-03/29/2022. Received last dose of Velcade on 04/21/2022 Oncologic History : 78-year-old male with past medical history significant for [...] in adequate numbers. Granulopoiesis is adequate and assembler billiard table. 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 M:E ratio is approximately [...] discharged on oxygen supplement and currently at [facility] Interval History: Overall clinically he is feeling better and stronger. He had amputation 1 of the toe recently. His also in the left foot his healing. He is more energy level. He denies any headache, dizziness, new bone pain, nausea, vomiting, abdominal pain or distention, change bowel habits, bleeding, bruising. LABS/IMAGING: Results for orders placed or performed in visit on 09/21/23 COMPREHENSIVE METABOLIC PANEL Result Value Ref Range BUN 19 6 - 20 mg/dL Creatinine 1.3 (H) 0.6 - 1.2 mg/dL Estimated Glomerular Filtration Rate 59 (L) >=60 mL/min Sodium 141 135 - 146 mmol/L Potassium 3.9 3.5 - 5.1 mmol/L Chloride 99 98 - 107 mmol/L CO2 20 (L) 22 - 32 mmol/L Anion Gap 22 (H) 7 - 15 mmol/L Glucose 122 (H) 70 - 120 mg/dL Albumin 4.4 3.8 - 5.0 g/dL AST 20 10 - 50 U/L Alkaline Phosphatase 82 35 - 130 U/L Bilirubin, Total 0.5 <=1.2 mg/dL Calcium 10.3 (H) 8.4 - 10.2 mg/dL Protein 7.7 6.0 - 8.3 g/dL ALT 26 10 - 50 U/L IMMUNOGLOBULIN QUANTITATIVE Result Value Ref Range IgG 391 (L) 700 - 1,600 mg/dL IgA 231 70 - 400 mg/dL IgM 29 (L) 40 - 230 mg/dL SERUM FREE LIGHT CHAINS Result Value Ref Range [place] Free Light Chains, Serum 311.76 (H) 3.30 - 19.40 mg/L Lambda Free Light Chains, Serum 11.07 5.71 - 26.30 mg/L [place] Lambda Free Light Chains Ratio 28.16 (H) 0.26 - 1.65 SERUM PROTEIN ELECTROPHORESIS REFLEX PROFILE Result Value Ref Range Normal/Abnormal Normal Normal Protein 7.0 6.0 - 8.3 g/dL Albumin 3.47 3.30 - 4.40 g/dL Alpha-1 Globulin 0.39 (H) 0.10 - 0.30 g/dL Alpha-2 Globulin 1.43 (H) 0.60 - 1.00 g/dL Beta-Globulin 1.27 0.80 - 1.30 g/dL Gamma-Globulin 0.45 (L) 0.70 - 1.70 g/dL Electrophoresis Interpretation No paraprotein detected. Decreased gamma fraction. Urine immunofixation recommended in follow up, if clinically indicated. [id number], SERUM Result Value Ref Range B2 Microglobulin, Serum 5.21 (H) <=2.51 mg/L PHOSPHORUS Result Value Ref Range Phosphorus 4.2 2.5 - 4.8 mg/dL CBC Result Value Ref Range WBC 11.43 (H) 4.00 - 10.80 K/uL RBC 4.03 4.50 - 5.25 M/uL HGB 12.2 (L) 14.0 - 16.8 g/dL HCT 38.3 (L) 40.0 - 48.4 % MCV 95.0 82.0 - 99.5 fL MCH 30.3 27.0 - 34.0 pg MCHC 31.9 32.0 - 36.0 g/dL RDW 17.2 11.5 - 15.5 % PLT 158 140 - 400 K/uL MPV 9.1 6.6 - 11.1 fL DIFFERENTIAL, TECHNOLOGIST REVIEW Result Value Ref Range WBC 11.43 (H) 4.00 - 10.80 K/uL Neutrophils % 72.0 40.0 - 75.0 % Lymphocytes % 11.0 (L) 18.0 - 42.0 % Monocytes % 13.0 (H) 1.0 - 11.0 % Eosinophils % 2.0 0.0 - 6.0 % Metamyelocytes % 2.0 (H) <=0.0 % Absolute Neutrophils 8.23 (H) 1.80 - 7.70 K/uL Absolute Lymphocytes 1.26 1.00 - 4.80 K/uL Absolute Monocytes 1.49 (H) 0.00 - 1.10 K/uL Absolute Eosinophils 0.23 0.00 - 0.70 K/uL Absolute Metamyelocytes 0.23 (H) <=0.00 K/uL nRBCs HEMOGLOBIN A1C Result Value Ref Range Hemoglobin A1C 6.1 (H) 4.0 - 5.6 % Estimated Average Glucose 128 (H) <126 mg/dL *Note: Due to a large number of results and/or encounters for the requested time period, some results have not been displayed. A complete set of results can be found in Results Review. Recent myeloma panel was done on 09/21/2023 shows rising level of kappa free light chain and it ews320, lambda was normal with ratio of 28. Beta-2 microglobulin also increased to 5.21. REVIEW OF SYSTEMS: General: No Fever, chills, [...] bleeding Genitourinary: Denies Hematuria or dysuria Musculoskeletal: Stable weakness Psychiatric: No vegetative signs of depression Endocrine: [...] of Breath or Wheezing. 18 g 3 Q74-Wxafip 1 MG Oral Tablet Chewable (Methylcobalamin) Take [...] blood sugar 1 Each 3 Dexcom G7 Systems Consultant Device Use to check blood sugar 1 Each 1 Victoza 18 MG/3ML Subcutaneous Solution Pen-injector (Liraglutide) Inject 1.2 mg under the skin in the morning. 18 mL 3 BD Pen Needle Short U/F 31G X 8 MM (Insulin Pen Needle) USE DIRECTED WITH insulins 500 Each 3 Klor-Con M20 20 MEQ Oral Tablet Extended [...] 20mg once a week 120 Tablet 1 Senna 8.6 MG Oral Tablet Take 2 Tablets by mouth at bedtime as needed for Constipation. 60 Tablet 1 Atorvastatin Calcium 40 MG Oral Tablet (Lipitor) TAKE 1 TABLET BY MOUTH EVERY DAY 90 Tablet 1 Metoprolol Succinate ER 25 MG Oral Tablet Extended Release 24 Hour (toPROL XL) Take 1 Tablet by mouth in the morning. 90 Tablet 3 Metoprolol Succinate ER 50 MG Oral Tablet Extended Release 24 Hour (toPROL XL) Take 1 Tablet by mouth in the morning and 1 Tablet before bedtime. 180 Tablet 3 Morphine Sulfate 15 MG Oral Tablet (Msir) Take 1 Tablet by mouth every 4 hours as needed for Pain, Severe. 120 Tablet 0 Furosemide 20 MG Oral Tablet (Lasix) Take 1 Tablet by mouth once a day on Wednesday, Wednesday, and Wednesday only. 30 Tablet 5 Fluticasone Propionate 50 MCG/ACT Nasal Suspension (Flonase) Administer 2 Sprays into each nostril in the morning. 18.2 mL 1 No current facility-administered medications for this visit. Social History Tobacco Use Smoking status: Former Packs/day: 1.50 Years: 25.00 Additional pack years: 0.00 Total pack years: 37.50 Types: Cigarettes Quit date: 10/18/1979 Years since quittin.0 Smokeless tobacco: Never Tobacco comments: occ. cigar Vaping Use Vaping Use: Never used Substance Use Topics Alcohol use: Not Currently Drug use: Yes Types: Marijuana Comment: Liquid, medical marijuana; also has gummies Review of patient's allergies indicates: Allergen Reactions Tizanidine PHYSICAL EXAMINATION: General Appearance: Healthy appearing patient in no acute distress BP 111/78 (BP Site: Left Arm, BP Position: Sitting, BP Cuff Size: Regular) | Pulse 100 | Temp 36.9 C (98.4 F) (Tympanic) | Resp 16 | Wt 69.2 kg (152 lb 9.6 oz) | SpO2 94% | BMI 20.84 kg/m | BSA1.87 m Vitals reviewed. HEENT: No oral or [...] Good pulses bilaterally, no peripheral edema. ASSESSMENT: 78-year-old male with past medical history significant for [...] and because of comorbid condition and lung problemhe is not candidate for high-dose chemotherapy and stem cell transplant. He has issues of generalized weakness and weight loss and was admitted to the hospital with episodeof fall and sepsis. Because of comorbid condition and worsening performance status his treatment nidhi hold. Because of disease progression increasing light chain his treatment for myeloma was started on 09/17/2022 including combination of Darzalex plus Revlimid and Decadron. He had a good response to the treatment. He received last treatment on 05/25/2023 and since then the treatment is on hold because of the other comorbid condition and heart problem and deterioration and performance status. Now there is increasing the light chain level stable rest blood test. Discussed with the patient in detail about diagnosis prognosis reviewed all the available test result with him. He is at risk for disease progression with increasing kappa light chain. He recently had amputation of 1 of the toe in the left lower extremity. Ulcer is healing. Because of other comorbid condition, at this point the best option is to treat him with maintenanceprotocol of the Chris protocol including combination of Darzalex on monthly basis with Revlimid 15 mg for 21 days of every 28 week cycle. After detailed discussion he agreed to proceed with treatment. PLAN: As above. He will have a repeat myeloma panel done today as a baseline. He will return clinic for follow-up in 6 weeks with CBC, CMP and myeloma panel The patient voiced understanding of all of [...] this encounter Nursing Notes * Brittany Robledo, [facility] - 10/25/2023 10:02 AM EST Patient identifed by name and birthdate Do you have any concerns about pain management for today's visit? No Living Will or Advance Directive for Health Care as noted on the problem list. [facility] is a way you can talk to your provider on line through e-mail. Would you like to sign up? I can activate it for you? ALREADY ACTIVE Filed Vitals: 10/25/23 1002 BP: 111/78 Pulse: 100 Resp: 16 Temp: 36.9 C (98.4 F) TempSrc: Tympanic SpO2: 94% Weight: 69.2 [...] Upcoming Encounters Date Type Department Care Team (Latest Contact Info) Description 10/25/2023 11:40 AM EST Laboratory Laboratory State Charleen C[facility]denas [address] [place] [phone] [facility] [place] [address] Multiple myeloma not having achieved remission (HCC) 11/01/2023 9:15 AM EST Pharmacy Pharmacy Hematology Oncology [facility], [address] [address] [facility] Hem/Onc [facility] [place] [address] 11/01/2023 6:15 PM EST Scheduled Telephone Pharmacy Hematology Oncology [facility], [address] [address] [facility] Hem/Onc Tech [address] [place] [address] 11/04/2023 1:30 PM EST Office Visit Pulmonary Medicine, [place] [address] [place] [address] Jignesh Hendrickson MD [address] [place] [address] 12/14/2023 8:00 AM EST Office Visit Hematology/Oncolog y State [facility]leen C[facility]as [address] [place] [address] [address] Chito Garcia MD [address] [place] [address] 12/22/2023 2:00 PM EST Office Visit Pharmacy, [facility] [address] [facility] [place] [address] Pharmacist1, [facility] Sp [address] [place] [address] 01/17/2024 3:00 PM EDT Office Visit [facility] [address] [facility] [place] [address] Landen Macario, DO [address] [facility] [place] [address] 05/09/2024 3:20 PM EDT Office Visit [facility] [address] [facility] [place] [address] Landen Macario, DO [address] [facility] [place] [address] Scheduled Orders Name Type Priority Associated Diagnoses Orde r Schedule [id number], SERUM Lab Routine Multiple myeloma not having achieved remission (HCC) Ordered: 10/25/2023 CBC WITH WBC DIFFERENTIAL Lab Routine Multiple myeloma not having achieved remission (HCC) Ordered: 10/25/2023 COMPREHENSIVE METABOLIC PANEL Lab Routine Multiple myeloma not having achieved remission (HCC) Ordered: 10/25/2023 IMMUNOGLOBULIN QUANTITATIVE Lab Routine Multiple myeloma not having achieved remission (HCC) Ordered: 10/25/2023 SERUM FREE LIGHT CHAINS Lab Routine Multiple myeloma not having achieved remission (HCC) Ordered: 10/25/2023 SERUM PROTEIN ELECTROPHORESIS REFLEX PROFILE Lab Routine Multiple myeloma not having achieved remission (HCC) Ordered: 10/25/2023 [id number], SERUM Lab Routine Multiple myeloma not having achieved remission (HCC) Expected: 12/06/2023, Expires: 04/03/2024 CBC WITH WBC DIFFERENTIAL Lab Routine Multiple myeloma not having achieved remission (HCC) Expected: 12/06/2023, Expires: 04/03/2024 COMPREHENSIVE METABOLIC PANEL Lab Routine Multiple myeloma not having achieved remission (HCC) Expected: 12/06/2023, Expires: 04/03/2024 IMMUNOGLOBULIN QUANTITATIVE Lab Routine Multiple myeloma not having achieved remission (HCC) Expected: 12/06/2023, Expires: 04/03/2024 SERUM FREE LIGHT CHAINS Lab Routine Multiple myeloma not having achieved remission (HCC) Expected: 12/06/2023, Expires: 04/03/2024 Health Maintenance Due Date Last Done Comments [...] 03/02/2023, 0702/2022, 07/08/2021, Additional history exists GFR 03/22/2024 09/21/2023, 07/18, 07/05/2023, Additional history exists HbA1c 03/22/2024 09/21/2023, 05/19, 03/02/2023, Additional history exists CKD HGB USE SMARTSET 30826 09/21/202409/21, 09/21/2023, 08/02/2023, Additional history exists CKD PHOS USE SMARTSET 12850 09/21/2024 12/0 02/2023, 08/02/2023, 05/25/2023, Additional history exists O2 ASSESSMENT COMPLETED IN PAST YEAR FOR COPD 10/13/2024 10/13/2023 DTaP,Tdap,and Td Vaccines (2 - Td or [...] this encounter Medical Devices Implanted Type Area Account Director Device Identifier Shelf Expiration Date Model / Serial / Lot Lens Intraoc 24.0 - [id number] - [id number] Implanted:Qty: 1 on 08/16/2018 by Adan Colon MD at OR [facility] Right: Eye [employer] 11/17/2022 [id number] / [id number] / [id number] Lens Intraoc 24.0 - [id number] - [id number] Implanted:Qty: 1 on 08/23/2018 by Adan Colon MD at OR [facility] Left: Eye [employer] 06/17/2023 [id number] / [id number] / [id number] Screw [employer] 3.0bbu71ee - [id number] Implanted:Qty: 1 on 12/07/2019 by Amilcar Saavedra MD at OR [facility] Left: Foot EXACTECH [id number] / / documented as of this encounter Visit Diagnoses Diagnosis Multiple myeloma not having achieved remission (HCC)- Primary Multiple myeloma, without mention of having achieved remission Multiple myeloma not having achieved remission (HCC) [...] and were consensually agreed upon. Care Teams Book Critic Relationship Specialty Start Date End Date Landen Macario DO [address] [place] [address] PCP - General Family Medicine 02/09/22 documented as of this encounter"
--- OUTSIDE RECORDS SUMMARY | 2023-11-21 20:00 | External Medical Summary | Summary of Care ---
Author Name Unknown Organization [facility] Address [address] [place] [address] Phone [phone] Care Team Providers Care Weld Technician Name Role Phone RoselynLanden cameron Con MCCABE Primary Care Provider [phone] Reason for Visit * Reason Comments Outpatient Testing Encounter Details Date Type Department Care Team (Late st Contact Info) Description 10/25/2023 11:40 AM EST Laboratory Laboratory [facility] [address] [place] [phone] [facility] 200 [facility] [place] [address] Multiple myeloma not having achieved remission (HCC) [...] or Wheezing. 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 11/25/2018 Paroxysmal [...] 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,rt church 607/05/2002 05/26/2018 Rosacea 07/28/2001 05/26/2018 LOC PRIM [id number] 07/28/200106/2018 documented as of this encounter (statuses [...] Team (Late st Contact Info) Description 11/01/2023 9:15 AM EST Pharmacy Pharmacy Hematology Oncology [address] [address] [facility] Hem[facility]Onc Formerly named [facility] [place] [address] 11/01/2023 6:15 PM EST Scheduled Telephone Pharmacy Hematology Oncology [facility], [place] [address] [place] [address] [facility] Hem/Onc [facility] [address] [place] [address] 11/04/2023 1:30 PM EST Office Visit Pulmonary Medicine, [place] [address] [place] [address] Jignesh Hendrickson MD [address] [place] [address] 12/14/2023 8:00 AM EST Office Visit Hematology/Oncology [facility] [place] [address] [place] [address] Chito Garcia MD [address] [place] [address] 12/22/2023 2:00 PM EST Office Visit Pharmacy, [facility] [place] [address] [place] [address] Pharmacist1, [facility] [address] [place] [address] 01/17/2024 3:00 PM EDT Office Visit [facility] [address] [place] [address] Landen Macario, DO [address] [place] [address] 05/09/2024 3:20 PM EDT Office Visit [facility] [place] [address] [place] [address] Landen Macario, DO [address] [place] [address] Pending Results Name Type Priority Associated Diagnoses Date /Time CBC WITH WBC DIFFERENTIAL Lab Routine Multiple myeloma not having achieved remission (HCC) 10/25/2023 10:46 AM EST COMPREHENSIVE METABOLIC PANEL Lab Routine Multiple myeloma not having achieved remission (HCC) 10/25/2023 10:46 AM EST SERUM FREE LIGHT CHAINS Lab Routine Multiple myeloma not having achieved remission (HCC) 10/25/2023 10:46 AM EST IMMUNOGLOBULIN QUANTITATIVE Lab Routine Multiple myeloma not having achieved remission (HCC) 10/25/2023 10:46 AM EST SERUM PROTEIN ELECTROPHORESIS REFLEX PROFILE Lab Routine Multiple myeloma not having achieved remission (HCC) 10/25/2023 10:46 AM EST UMMH-1-[id number], SERUM Lab Routine Multiple myeloma not having achieved remission (HCC) 10/25/2023 10:46 AM EST CBC Lab Routine Multiple myeloma not having achieved remission (HCC) 10/25/2023 10:46 AM EST DIFFERENTIAL, AUTOMATED Lab Routine Multiple myeloma not having achieved remission (HCC) 10/25/2023 10:46 AM EST Health Maintenance Due Date Last Done [...] 07/0 02/2022, 07/08/2021, Additional history exists GFR 03/22/2024 09/21/2023, 07/18, 07/05/2023, Additional history exists HbA1c 03/22/2024 09/21/2023, 05/19, 03/02/2023, Additional history exists CKD HGB USE SMARTSET 29575 09/21/202409/21, 09/21/2023, 08/02/2023, Additional history exists CKD PHOS USE SMARTSET 75869 09/21/2024 120 02/2023, 08/02/2023, 05/25/2023, Additional history [...] this encounter Medical Devices Implanted Type Area Cad Cam Programmer Device Identifier Shelf Expiration Date Model / Serial / Lot Lens Intraoc 24.0 - [id number] - [id number] Implanted:Qty: 1 on 08/16/2018 by Adan Colon MD at OR [facility] Right: Eye [employer]CH [employer] LOMB 11/17/2022 [id number] / [id number] / [id number] Lens Intraoc 24.0 - [id number] - [id number] Implanted:Qty: 1 on 08/23/2018 by Adan Colon MD at OR [facility] Left: Eye BAUSCH & LOMB 06/17/2023 [id number] / [id number] / [id number] Screw [employer] 3.2mzm30bx - [id number] Implanted:Qty: 1 on 12/07/2019 by Amilcar Saavedra MD at OR [facility] Left: Foot EXACTECH [id number] / / documented as of this encounter [...] and were consensually agreed upon. Care Teams Weld Technician Relationship Specialty Start Date End Date Landen Macario DO [address] [place], [place] [address]dariel[address] [place] [address] PCP - General Family Medicine 02/09/22 documented as of this encounter
--- OUTSIDE RECORDS SUMMARY | 2023-11-21 20:00 | External Medical Summary ---
Author Name Unknown Address Unknown Organization K09[facility] [place] [address] Laboratory Report Ordering Provider Test Date Status ANIBAL FIERRO 10/25/2023 10:46:21 Final Observation Date Value Abnormality Reference (Units ) Status SYNC LEUKOCYTES IN BLOOD BY AUTOMATED COUNT 10/25/2023 10:46:21 6.61 4.00-10.80 (K/uL) Final Segs 10/25/2023 10:46:21 63.5 40.0-75.0 (%) Final Lymphs % 10/25/2023 10:46:21 19.2 18.0-42.0 (%) Final Monos 10/25/2023 10:46:21 16.5 Above high normal 1.0-11.0 (%) Final Eosinophils 10/25/2023 10:46:21 0.6 0.0-6.0 (%) Final Basos 10/25/2023 10:46:21 0.2 0.0-2.0 (%) Final Absolute Segs 10/25/2023 10:46:21 4.20 1.80-7.70 (K/uL) Final Lymphs, absolute 10/25/2023 10:46:21 1.27 1.00-4.80 (K/ul) Final Monos, Abs 10/25/2023 10:46:21 1.09 0.00-1.10 (K/uL) Final Eos, Abs 10/25/2023 10:46:21 0.04 0.00-0.70 (K/uL) Final Basos, Abs 10/25/2023 10:46:21 0.01 0.00-0.20 (K/uL) Final Performing Location [facility] [place] [address]
--- OUTSIDE RECORDS SUMMARY | 2023-11-21 20:00 | External Medical Summary ---
Author Name Unknown Address Unknown Organization K01:[facility] [address] [place] [address] Laboratory Report Ordering Provider Test Date Status FIERRO,MEMON 10/25/2023 10:46:21 Final Observation Date Value Abnormality Reference (Units ) Status IgG 10/25/2023 10:46:21 307 Below low normal 700 -1600 (mg/dL) Final IgA 10/25/2023 10:46:21 360 70-400 (mg /dL) Final IgM 10/25/2023 10:46:21 11 Below low normal 40- 230 (mg/dL) Final Performing Location [facility] - [address] [place] [address]
--- OUTSIDE RECORDS SUMMARY | 2023-11-21 20:00 | External Medical Summary | Summary of Care ---
Author Name Unknown Organization [facility] Address [address] [place] [address] Phone [phone] Care Team Providers Care Automobile Washer Steam Name Role Phone RoselynLanden cameron Con MCCABE Primary Care Provider [phone] Reason for Visit * Reason Comments Outpatient Testing Encounter Details Date Type Department Care Team (Late st Contact Info) Description 10/25/2023 11:40 AM EST Laboratory Laboratory [facility] [address] [place] [phone] [facility] 200 [facility] [place] [address] Multiple myeloma not having achieved remission (HCC) [...] or Wheezing. 18 g 3 04/03/2022 Active E00-Pncyqu 1 MG Oral Tablet Chewable (Methylcobalamin) Take [...] 1 Each 3 03/04/2023 Active Dexcom G7 Marketing Financial Analyst Device Use to check blood sugar [...] failure 05/2022 Coronary artery disease invo lving [place] coronary artery of [place] heart without angina pectoris 06/25/2022 Presence of [...] update of inactive term lentigo maligna,rt hoahaoism 607/05/2002 05/26/2018 Rosacea 07/28/2001 05/26/2018 LOC PRIM [id number] 07/28/200106/2018 documented as of this encounter (statuses [...] 9:15 AM EST Pharmacy Pharmacy Hematology Oncology [address] [address] [facility], [facility] Hem/Onc [facility] [place] [address] 11/01/2023 6:15 PM EST Scheduled Telephone Pharmacy Hematology Oncology [facility], [place] [address] [place] [address] [facility] Hem/Onc [facility] [address] [place] [address] 11/04/2023 1:30 PM EST Office Visit Pulmonary Medicine, [place] [address] [place] [address] Jignesh Hendrickson MD [address] [place] [address] 12/14/2023 8:00 AM EST Office Visit Hematology/Oncology [facility] [place] [address] [place] [address] Chito Garcia MD [address] [place] [address] 12/22/2023 2:00 PM EST Office Visit Pharmacy, [facility] [place] [address] [place] [address] Pharmacist1, [facility] [address] [place] [address] 01/17/2024 3:00 PM EDT Office Visit [facility] [address] [place] [address] Landen Macario, DO [address] [place] [address] 05/09/2024 3:20 PM EDT Office Visit [facility] [place] [address] [place] [address] Landen Macario, DO [address] [place] [address] Pending Results Name Type Priority Associated Diagnoses [...] achieved remission (HCC) 10/25/2023 10:46 AM EST [id number], SERUM Lab Routine Multiple myeloma not having [...] Additional history exists CKD HGB USE SMARTSET 53879 09/21/202409/21, 09/21/2023, 08/02/2023, Additional history exists CKD PHOS USE SMARTSET 35279 09/21/2024 120 02/2023, 08/02/2023, 05/25/2023, Additional history [...] this encounter Medical Devices Implanted Type Area Ammunition Storekeeper Device Identifier Shelf Expiration Date Model / Serial / Lot Lens Intraoc 24.0 - [id number] - [id number] Implanted:Qty: 1 on 08/16/2018 by Adan Colon MD at OR [facility] Right: Eye BAUSCH [employer] LOMB 11/17/2022 [id number] / [id number] / [id number] Lens Intraoc 24.0 - [id number] - [id number] Implanted:Qty: 1 on 08/23/2018 by Adan Colon MD at OR [facility] Left: Eye BAUSCH & LOMB 06/17/2023 [id number] / [id number] / [id number] Screw [employer] 3.2mal13ux - [id number] Implanted:Qty: 1 on 12/07/2019 by Amilcar Saavedra MD at OR [facility] Left: Foot EXACTECH [id number] / / documented as of this encounter [...] and were consensually agreed upon. Care Teams Automobile Washer Steam Relationship Specialty Start Date End Date Landen Macario DO [address] [place], [place] [address]dar[address] [place] [address] PCP - General Family Medicine 02/09/22 documented as of this encounter
--- OUTSIDE RECORDS SUMMARY | 2023-11-21 20:00 | External Medical Summary ---
Author Name Unknown Address Unknown Organization K09:[facility] [place] [address] [place] [address] Laboratory Report Ordering Provider Test Date Status ANIBAL FIERRO 10/25/2023 10:46:21 Final Observation Date Value Abnormality Reference (Units ) Status BUN 10/25/2023 10:46:21 22 Above high normal 6-20 (mg/dL) Final Creatinine 10/25/2023 10:46:21 1.1 0.6-1.2 (mg/dL) Final Glomerular filtration rate/1.73 sq M.predicted [Volume Rate/Area] in Serum, Plasma or Blood by Creatinine-based formula (CKD-EPI) 10/25/2023 10:46:21 73 >=60 (mL/min) Final eGFR is calculated based on the CKD-EPI 2020 equation SODIUM 10/25/2023 10:46:21 138 135-146 (m mol/L) Final Potassium 10/25/2023 10:46:21 4.8 3.5-5.1 (m mol/L) Final Cl 10/25/2023 10:46:21 99 98-107 (mm ol/L) Final CO2 10/25/2023 10:46:21 25 22-32 (mmo l/L) Final Anion gap 10/25/2023 10:46:21 14 7-15 (mmol /L) Final Glucose 10/25/2023 10:46:21 147 Above high normal 70 -120 (mg/dL) Final Albumin 10/25/2023 10:46:21 4.4 3.8-5.0 (g /dL) Final AST (Aspartate aminotransferase) 10/25/2023 10:46:21 14 10-50 (U/L) Fin al Alk Phos 10/25/2023 10:46:21 81 35-130 (U/ L) Final Bilirubin, Total 10/25/2023 10:46:21 0.7 <=1 .2 (mg/dL) Final Calcium 10/25/2023 10:46:21 10.0 8.4-10.2 ( mg/dL) Final Protein 10/25/2023 10:46:21 6.7 6.0-8.3 (g /dL) Final ALT (Alanine aminotransferase) 10/25/2023 10:46:21 11 10-50 (U/L) Marcelo lobato Performing Location [facility] [address] [place] [address]
--- OUTSIDE RECORDS SUMMARY | 2023-11-21 20:00 | External Medical Summary | Summary of Care ---
Author Name Unknown Organization [facility] Address [address] [place] [address] Phone [phone] Care Team Providers Care Cement Crusher Operator Name Role Phone Landen Macario DO Primary Care Provider [phone] Encounter Details Date Type Department Care Team (Late st Contact Info) Description 10/25/2023 Orders Only Hematology/Oncology, [facility] [address] [place] [address] Chito Garcia MD [address] [place] [address] Multiple myeloma not having achieved remission (HCC)* [...] or Wheezing. 18 g 3 04/03/2022 Active L93-Kzipeb 1 MG Oral Tablet Chewable (Methylcobalamin) Take [...] 1 Each 3 03/04/2023 Active Dexcom G7 Mixer Blender Device Use to check blood sugar 1 [...] failure 05/2022 Coronary artery disease invo lving [place] coronary artery of [place] heart without angina pectoris 06/25/2022 Presence of [...] 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,rt religious 607/05/2002 05/26/2018 Rosacea 07/28/2001 05/26/2018 LOC PRIM [id number] 07/28/2001 06/2018 documented as of this encounter (statuses [...] Description 10/25/2023 11:40 AM EST Laboratory Laboratory [facility] [place] [address] [place] [phone] [facility] 200 [facility] [place] [address] Multiple myeloma not having achieved remission (HCC) 11/01/2023 9:15 AM EST Pharmacy Pharmacy Hematology Oncology [facility] [place] [address] [place] [address] [facility], [facility] Hem/Onc [address] [place] [address] 11/01/2023 6:15 PM EST Scheduled Telephone Pharmacy Hematology Oncology [facility], [place] [address] [place] [address] [facility] Hem/Onc [facility] [address] [place] [address] 11/04/2023 1:30 PM EST Office Visit Pulmonary Medicine, [place] [address] [place] [address] Jignesh Hendrickson MD [address] [place] [address] 12/14/2023 8:00 AM EST Office Visit Hematology/Oncolog y [facility] [place] [address] [place] [address] Chito Garcia MD 200 [place] [address] 12/22/2023 2:00 PM EST Office Visit Pharmacy, [facility] [place] [address] [place] [address] Pharmacist1, [facility] Sp [address] [place] [address] 01/17/2024 3:00 PM EDT Office Visit [facility] 200 [place] [address] Landen Macario, DO 200 [facility] [place] [address] 05/09/2024 3:20 PM EDT Office Visit [facility] [address] [place] [address] Landen Macario, DO 200 [place] [address] Health Maintenance Due Date Last Done Comments [...] 03/02/2024 03/02/2023, 02/2022, 07/08/2021, Additional history exists GFR 03/22/2024 09/21/2023, 07/18, 07/05/2023, Additional history exists HbA1c 03/22/2024 09/21/2023, 05/19, 03/02/2023, Additional history exists CKD PHOS USE SMARTSET 24540 09/21/202402/2023, 08/02/2023, 05/25/2023, Additional history exists O2 ASSESSMENT COMPLETED IN PAST YEAR FOR COPD 10/13/2024 10/25/2023 CKD HGB USE SMARTSET 37078 10/25/202410/25, 10/25/2023, 09/21/2023, Additional history exists DTaP,Tdap,and Td Vaccines (2 [...] this encounter Medical Devices Implanted Type Area Surgical Product Sales Consultant Device Identifier Shelf Expiration Date Model / Serial / Lot Lens Intraoc 24.0 - [id number] - [id number] Implanted:Qty: 1 on 08/16/2018 by Adan Colon MD at OR [facility] Right: Eye [employer]CH [employer] LOMB 11/17/2022 [id number] / [id number] / [id number] Lens Intraoc 24.0 - [id number] - [id number] Implanted:Qty: 1 on 08/23/2018 by [facility] Left: Eye BAUSCH & LOMB 06/17/2023 [id number] / [id number] / [id number] Screw [employer] 3.0hhc14dt - [id number] Implanted:Qty: 1 on 12/07/2019 by Amilcar Saavedra MD at OR [facility] Left: Foot EXACTECH [id number] / / documented as of this encounter Visit Diagnoses Diagnosis Multiple myeloma not having achieved remission (HCC) Multiple myeloma, without mention of having achieved remission Multiple myeloma not having achieved remission (HCC)- [...] and were consensually agreed upon. Care Teams Cement Crusher Operator Relationship Specialty Start Date End Date Landen Macario DO [address] [place] [address] PCP - General Family Medicine 02/09/22 documented as of this encounter
--- OUTSIDE RECORDS SUMMARY | 2023-11-21 20:00 | External Medical Summary ---
Author Name Unknown Address Unknown Organization K09[facility] [place] [address] Laboratory Report Ordering Provider Test Date Status SRIANIBAL 10/25/2023 10:46:21 Final Observation Date Value Abnormality Reference (Units ) Status Nucleated erythrocytes/100 leukocytes [Ratio] in Blood by Automated count 10/25/2023 10:46:21 Final Elliptocytes [Presence] in Blood by Light microscopy 10/25/2023 10:46:21 Moderate Abnormal None Seen Final Performing Location [facility] [place] [address]
--- OUTSIDE RECORDS SUMMARY | 2023-11-21 20:00 | External Medical Summary | Summary of Care ---
Author Name Unknown Organization [facility] Address [address] [facility] [address] Phone [phone] Care Team Providers Care Mission Analyst Name Role Phone Landen Macario DO Primary Care Provider [phone] Reason for Visit * Reason Onset Date Comments Follow Up 10/05/2023 Encounter Details Date Type Department Care Team (Late st Contact Info) Description 10/05/2023 Telephone Hematology/Oncology [facility] [place] [address] [facility] [place] [address] Chito Garcia MD 200 [facility] [place] [address] Follow Up Allergies Active Allergy Reactions Criticality [...] or Wheezing. 18 g 3 04/03/2022 Active R56-Cqcykb 1 MG Oral Tablet Chewable (Methylcobalamin) Take [...] 1 Each 3 03/04/2023 Active Dexcom G7 Mastercam Programmer Device Use to check blood sugar 1 [...] failure 05/2022 Coronary artery disease invo lving [place] coronary artery of [place] heart without angina pectoris 06/25/2022 Presence of [...] Gastroesophageal reflux disease without esophagi tis 03/15/2019 jail (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 of insulin 11/25/2018 Paroxysmal atrial [...] 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,rt latter-day 07/05/2002 05/26/2018 Rosacea 07/28/2001 05/26/2018 LOC PRIM [id number] 07/28/2001 08/0 06/2018 documented as of this [...] encounter Miscellaneous Notes * Telephone Encounter - Sloan Torres RN [...] 9:15 AM EST Pharmacy Pharmacy Hematology Oncology [facility] [address] [address] [facility] Hem/Onc [address] [place] [address] 10/26/2023 6:15 PM EST Scheduled Telephone Pharmacy Hematology Oncology [facility] [address] [address] [facility] Hem/Onc Tech [address] [place] [address] 11/04/2023 1:30 PM EST Office Visit Pulmonary Medicine, [address] [address] Jignesh Hendrickson MD [address] [place] [facility] [address] 12/14/2023 8:00 AM EST Office Visit Hematology/Oncology [facility] [address] [place] [address] Chito Garcia MD [address] [place] [address] 12/22/2023 2:00 PM EST Office Visit Pharmacy, [facility] [place] [address] [place] [address] Pharmacist1, [facility] Sp 200 [facility] [place] [address] 01/17/2024 3:00 PM EDT Office Visit Family Practice [facility] [address] [place] [address] Landen Macario, DO 200 [place] [address] 05/09/2024 3:20 PM EDT Office Visit [facility] [place] [address] [place] [address] Landen Macario, DO 200 [place] [address] Health Maintenance Due Date Last Done Comments [...] Additional history exists CKD PHOS USE SMARTSET 87961 09/21/202402/2023, 08/02/2023, 05/25/2023, Additional history exists CKD HGB USE SMARTSET 39405 10/25/202410/25, 10/25/2023, 09/21/2023, Additional history exists O2 [...] this encounter Medical Devices Implanted Type Area Biometric Technician Device Identifier Shelf Expiration Date Model / Serial / Lot Lens Intraoc 24.0 - [id number] - [id number] Implanted:Qty: 1 on 08/16/2018 by Adan Colon MD at OR [facility] Right: Eye [employer]OMB 11/17/2022 [id number] / [id number] / [id number] Lens Intraoc 24.0 - [id number] - [id number] Implanted:Qty: 1 on 08/23/2018 by Adan Colon MD at OR [facility] Left: Eye BAUSCH & LOMB 06/17/2023 [id number] / [id number] / [id number] Screw [employer] 3.2muf85zv - [id number] Implanted:Qty: 1 on 12/07/2019 by Amilcar Saavedra MD at OR [facility] Left: Foot EXACTECH [id number] / / documented as of this encounter [...] and were consensually agreed upon. Care Teams Mission Analyst Relationship Specialty Start Date End Date Landen Macario DO [address] [place] [address] PCP - General Family Medicine 02/09/22 documented as of this encounter
[2023-11-21 20:47] LABS: Basophils # (auto) 0.01 K/uL (0.00-0.20); Basophils % (auto) 0.2 %; Eosinophils # (auto) 0.08 K/uL (0.00-0.50); Eosinophils % (auto) 1.5 %; Hematocrit (blood only) 30.1 % (42.0-52.0); Hemoglobin 9.6 g/dl (14.0-18.0); Immature Granulocytes # (auto) 0.05 K/uL (0.01-0.20); Immature Granulocytes % (auto) 0.9 %; Lymphocytes # (auto) 0.87 K/uL (1.20-3.40); Lymphocytes % (auto) 15.9 %; Mean Corpuscular Hemoglobin 30.9 pg (25.0-34.0); Mean Corpuscular Hgb Conc 31.9 g/dL (32.0-36.0); Mean Corpuscular Volume 96.8 fL (80.0-100.0); Mean Platelet Volume 10.3 fL (9.4-12.4); Monocytes # (auto) 0.85 K/uL (0.11-0.59); Monocytes % (auto) 15.5 %; Neutrophils # (auto) 3.61 K/uL (1.40-6.50); Platelet Count 107 K/uL (130-400); RDW Coefficient of Variation 16.8 % (11.5-14.5); Red Blood Count 3.11 M/uL (4.70-6.10); White Blood Count 5.47 K/ul (4.8-10.8)
[2023-11-21 21:04] LABS: Albumin Globulin Ratio 1.5 (0.9-2); Albumin Level 4.1 gm/dl (3.4-5.0); BUN Creatinine Ratio 15.2 (10-20); Bilirubin,Total 0.5 mg/dl (0.2-1.0); Calcium 9.1 mg/dl (8.6-10.3); Creatinine Clr Calc Pharmacy 59.5 ml/min; Est GFR (Non-African American) 68.1 ml/min; Globulin 2.8 gm/dl (2.5-4.0); Potassium 4.7 mmol/L (3.5-5.1); Total Protein 6.9 gm/dl (6.0-8.3)
--- NOTE | 2023-11-21 21:27 | Emergency Department Note ---
Impression & Plan Ischemic necrosis of toe, Diabetic ulcer of left foot ED Provider Note Name: DARREN CONNOLLY Age: 78 Sex: Male Arrives Via: Walk-In Informant: Patient, ED Provider: Omari Blanco MD Chief Complaint: Toe discoloration Impression: As per impressions above Medical Decision Makin-year-old gentleman with a history of diabetes, CAD, peripheral artery disease amongst multiple others arrives for evaluation of worsening discoloration of second toe left foot. He has been dealing with an infection on the toe and had the distal tip of the toe amputated a few weeks ago. States initially it had been looking better but over the last few days increasing discoloration of the toe. The toe is now black. Does have some oozing around it. The foot started swelling earlier today. On examination patient has an ischemic toe which may be starting turn gangrenous. The foot itself is starting to swell up as well and I am concerned for developing cellulitis. Patient is a brittle diabetic with previous osteomyelitis. In the setting of an ischemic toe I feel hospitalization is likely necessary for IV antibiotics and I suspect amputation of the toe. I do not have contact for his podiatry team but they can be consulted tomorrow and hospitalist will bring him in for further management. Of note patient is currently on doxycycline and thus broad-spectrum antibiotics were initiated with Zosyn and vancomycin. Patient is not septic I do not feel that cultures are indicated at this time. Triage/Nursing Notes reviewed by Me Differential:Fracture, dislocation, foreign body, cellulitis, osteomyelitis, ischemia, abscess, necrotizing fasciitis amongst many other pathologies considered Vital Signs: reviewed and remarkable for no significant abnormalities Interventions: Zosyn IV, vancomycin IV, morphine p.o. (chronic dose.) Labs:ED labs Reviewed by me and remarkable for no significant abnormalities [facility] for further management. Plan: Disposition:Hospitalization. Condition: Good History of Present Illness: 78-year-old male arrives for evaluation of black left toe. Patient notes that his second toe has been dealing with an infection and he had 3 weeks ago some tissue removed from the tip of it. Notes initially infection had done a bit better but over the last few days increasing discoloration of the toe. Today the foot started swelling. Denies any specific pain but he cannot really feel his foot anyways. He has been noticing some bleeding around the base of the toe. The toe is essentially turned black and thus he arrives to the ER for evaluation. He denies any fevers, chills, nausea, vomiting. Patient notes that he has diabetes. He also has a history of cancer. He is also on Eliquis and bleeds easily. Past Medical History:See Below Home Medications:See Below Allergies:Tizanidine Vitals:Blood Pressure: 122/62, Pulse 65, RR 16, T 36.3C, O2 99% on RA Physical Exam: GENERAL: Patient is well appearing and in minimal distress. RESPIRATORY: No dyspnea. Clear to auscultation and equal bilaterally. CARDIOVASCULAR: Regular rate and rhythm.No murmur appreciated. EXTREMITIES: Normal motion all extremities, no cyanosis. The left second toe is is ischemic and black. Some mild venous oozing at base of toe. The foot itself is somewhat swollen and he is developing cellulitis over the top of the left foot spreading to just prior to ankle. No crepitus and patient does not have any tenderness to palpation. NEUROLOGIC: Alert and oriented. No focal neurologic deficits appreciated SKIN: No rash, no jaundice, no diaphoresis. PSYCH: Appropriate GCS: 15 Omari Blanco MD Past Med/Surg History Medical History COPD (chronic obstructive pulmonary disease) CKD (chronic kidney disease) stage 3, GFR 30-59 ml/min Multiple myeloma f/u oncology at [facility] Congestive heart failure Immunocompromised Interstitial lung disease PAF (paroxysmal atrial fibrillation) pacemaker placed in 2019 Diabetic ulcer of left foot Chronic deep vein thrombosis (DVT) LLE Diarrhea Pneumonia [facility] admission 08/2023 NSTEMI (non-ST elevated myocardial infarction) Per remote records History of pilonidal cyst Pacemaker Implanted 2019 History of melanoma in situ right [employer] HLD (hyperlipidemia) CAD (coronary artery disease) s/p CABG x4 (age 48) Follow[address] with Dr[address] Lane/[facility] Type 2 diabetes mellitus IDDM Surgical History Hallux rigidus of left foot multiple surgeries Hx of colonoscopy S/P surgical removal of pilonidal cyst Hx of melanoma excision many years ago; right [employer] Status post total hip replacement, left History of bone marrow biopsy early 2022 History of cataract surgery R/L S/P CABG x 4 Age 48 S/P Mohs surgery for basal cell carcinoma Family History Mother Lymphoma Social History Smoking Status: Former smoker Tobacco Type: Cigarettes Second Hand Exposure: Yes ( smokes); Do You Dip or Chew Tobacco: No; Hx Alcohol Use: Yes Alcohol type: beer Alcohol Intake Frequency: Monthly or Less Hx Substance Use: Yes Prescribed Medications: Marijuana Last Used Substance Other:: remote hx in s; medical card-does not use Substance Use Type Other:: has a marijuana card but he states he "... doesnt use it" Preferred Language: Korean Communication Ability: Effective Visual Impairment: No Limitations Hearing Ability: Normal Ticket Dispatcher Required: No Beliefs That Will Affect Care: None marital status: Current Living Situation: Spouse Current Living Situation Comment: home current occupational status: retired How many Children do You have: 1 How many Children do You have Comment: Magi lives in [facility]. able to assist with care as needed. Feels Safe at Home: Yes Diet: regular Diet Comment: Trying to gain weight caffeine: No during the past year weight has: decreased > 10 lbs Assistive Devices: Cane and Denture - Upper Allergies Allergies Allergy/AdvReac Type Severity Reaction Status Date / Time tizanidine AdvReac Intermediate "Woozy" Verified 11/21/23 22:43 feeling Home Meds Home Medications Medication Instructions Recorded Confirmed apixaban 5 mg tablet (Eliquis) 5 mg PO BID 06/25/20 11/21/23 atorvastatin 40 mg tablet 40 mg PO QAM 06/25/20 11/21/23 liraglutide 0.6 mg/0.1 mL (18 mg/3 1.2 mg subcut DAILY 09/30/21 11/21/23 mL) subcutaneous pen injector (Victoza 2-Jed) ondansetron 8 mg disintegrating 8 mg PO Q8H PRN Nausea 09/30/21 11/21/23 tablet prochlorperazine maleate 10 mg 10 mg PO Q6H PRN nausea 09/30/21 11/21/23 tablet nitroglycerin 0.4 mg sublingual 0.4 mg sublingual .Q 5 MIN PRN 11/01/21 11/21/23 tablet Chest Pain omega-3 fatty acids 1,000 mg 1,000 mg PO BID 04/15/22 11/21/23 capsule docusate sodium 100 mg capsule 100 mg PO BID PRN Constipation 04/22/22 11/21/23 (Colace) gabapentin 300 mg capsule 300 mg PO BID 04/22/22 11/21/23 mecobalamin (vitamin B12) 1,000 1,000 mcg PO QAM 04/22/22 11/21/23 mcg chewable tablet (B12 Active) morphine 15 mg immediate release 15 mg PO Q4H PRN Pain 04/22/22 11/21/23 tablet digoxin 125 mcg (0.125 mg) tablet 125 mcg PO Q2D 11/04/22 11/21/23 lenalidomide 10 mg capsule 10 mg PO DIRECTED 11/04/22 11/21/23 (Revlimid) potassium chloride 20 mEq 20 meq PO BID 11/04/22 11/21/23 tablet,extended release(part/cryst) sennosides 8.6 mg tablet (senna) 17.2 mg PO HS PRN Constipation 11/04/22 11/21/23 insulin aspart U-100 100 unit/mL 15 unit subcut TIDM 12/31/22 11/21/23 (3 mL) subcutaneous pen (Novolog FlexPen U-100 Insulin aspart) insulin glargine 100 unit/mL (3 45 unit subcut QPM 12/31/22 11/21/23 mL) subcutaneous pen (Basaglar KwikPen U-100 Insulin) dexamethasone 4 mg tablet 20 mg PO WK 06/25/23 11/21/23 mirtazapine 30 mg tablet 30 mg PO HS 06/25/23 11/21/23 omeprazole 20 mg capsule,delayed 20 mg PO QAM 06/25/23 11/21/23 release linaclotide 145 mcg capsule 145 mcg PO DAILY 07/28/23 11/21/23 (Linzess) metoprolol succinate 25 mg 25 mg PO QAM 08/20/23 11/21/23 tablet,extended release 24 hr metoprolol succinate 50 mg 50 mg PO BID 08/20/23 11/21/23 tablet,extended release 24 hr (Toprol XL) calcium carbonate 600 mg-vitamin 1 tab PO DAILY 11/16/23 11/21/23 D3 10 mcg (400 unit) tablet (Calcium 600 + D(3)) Previous Rx's Medication Instructions Recorded polyethylene glycol 3350 17 gram 17 g PO DAILY PRN constipation #15 10/05/21 oral powder packet (Miralax) ea furosemide 20 mg tablet (Lasix) 20 mg PO UD #30 tabs 07/29/23 doxycycline hyclate 100 mg tablet 100 mg PO bid #28 tabs 11/18/23 Results & Data (ED) Vital Signs Vital Signs - 24 hr 11/21/23 20:01 11/21/23 22:27 11/21/23 22:35 Temperature 36.3 C L Temperature Source Temporal Artery Scan Pulse Rate 83 68 Pulse Rate [Apical] 85 Pulse Rhythm [Apical] Regular Pulse Strength [Apical] Normal Respiratory Rate 17 18 Respiratory Effort / Characteristics Non-Labored Spontaneous Respiratory Depth Normal Respiratory Pattern Regular Blood Pressure 139/70 Blood Pressure [Right Arm] 132/70 Blood Pressure Mean 93 Blood Pressure Mean [Right Arm] 90 Pulse Oximetry 96 96 Oxygen Delivery Method Room Air Room Air Sepsis Recent Fever Within 48 Hours No Sepsis New/Unexplained Change in Mental Status No Sepsis Action Taken by Nursing No Action Required 11/21/23 23:21 11/22/23 00:00 11/22/23 01:00 Temperature Temperature Source Pulse Rate Pulse Rate [Apical] 66 68 65 Pulse Rhythm [Apical] Pulse Strength [Apical] Respiratory Rate 20 16 16 Respiratory Effort / Characteristics Respiratory Depth Respiratory Pattern Blood Pressure Blood Pressure [Right Arm] 121/51 L 131/61 122/62 Blood Pressure Mean Blood Pressure Mean [Right Arm] 74 84 82 Pulse Oximetry 98 98 99 Oxygen Delivery Method Room Air Room Air Room Air Sepsis Recent Fever Within 48 Hours Sepsis New/Unexplained Change in Mental Status Sepsis Action Taken by Nursing Laboratory Data 11/21/23 20:31 11/21/23 20:31 Lab Results 11/21/23 Range/Units 20:31 WBC 5.47 (4.8-10.8) K/ul RBC 3.11 L (4.70-6.10) M/uL Hgb 9.6 L (14.0-18.0) g/dl Hct 30.1 L (42.0-52.0) % MCV 96.8 (80.0-100.0) fL MCH 30.9 (25.0-34.0) pg MCHC 31.9 L (32.0-36.0) g/dL RDW Std Deviation 59.0 H (36.4-46.3) fL RDW Coeff of Collin 16.8 H (11.5-14.5) % Plt Count 107 L (130-400) K/uL MPV 10.3 (9.4-12.4) fL Immature Gran % (Auto) 0.9 % Neut % (Auto) 66.0 % Lymph % (Auto) 15.9 % [place] % (Auto) 15.5 % Eos % (Auto) 1.5 % Baso % (Auto) 0.2 % Neut # (Auto) 3.61 (1.40-6.50) K/uL Lymph # (Auto) 0.87 L (1.20-3.40) K/uL [place] # (Auto) 0.85 H (0.11-0.59) K/uL Eos # (Auto) 0.08 (0.00-0.50) K/uL Baso # (Auto) 0.01 (0.00-0.20) K/uL Immature Gran # (Auto) 0.05 (0.01-0.20) K/uL Sodium 138 (136-145) mmol/L Potassium 4.7 (3.5-5.1) mmol/L Chloride 105 (98-107) mmol/L Carbon Dioxide 23 (21-32) mmol/L Anion Gap 10 (3-11) BUN 16 (6-23) mg/dl Creatinine 1.05 (0.6-1.4) mg/dl Est Cr Clr Drug Dosing 59.5 ml/min Est GFR ( Amer) 79.0 ml/min Est GFR (Non-Af Amer) 68.1 ml/min BUN/Creatinine Ratio 15.2 (10-20) Glucose 101 H (70-99(Fasting)) mg/dl Calcium 9.1 (8.6-10.3) mg/dl Total Bilirubin 0.5 (0.2-1.0) mg/dl AST 18 (13-39) U/L ALT 13 (7-52) U/L Alkaline Phosphatase 47 (34-104) U/L Total Protein 6.9 (6.0-8.3) gm/dl Albumin 4.1 (3.4-5.0) gm/dl Globulin 2.8 (2.5-4.0) gm/dl Albumin/Globulin Ratio 1.5 (0.9-2) Administered Medications Discontinued Medications Piperacillin Sod/Tazobactam Sod (Zosyn) 4.5 gm in 100 mls @ 200 mls/hr IV NOW ONE Stop: 11/21/23 22:57 Last Infusion: 11/21/23 23:07 Dose: Infused Documented By: Admin: 11/21/23 22:37 Dose: 200 mls/hr Documented By: ALIE Vancomycin HCl 1,500 mg/ (Sodium Chloride) 530 mls @ 200 mls/hr IV NOW ONE Stop: 11/22/23 01:06 Last Admin: 11/21/23 23:11 Dose: 200 mls/hr Documented By: ALIE Morphine Sulfate (Morphine Sulfate Ir 15 Mg Tab (Immediate Release)) 15 mg PO NOW STA Stop: 11/21/23 23:43 Last Admin: 11/21/23 23:47 Dose: 15 mg Documented By: TUTU Discharge Plan Visit Data Chief Complaint: Toe Injury/Pain Stated Complaint: SECOND TOE BLACK/LT FOOT, TIP REMOVED RECENTLY ED Provider: Omari Blanco Discharge Problem: Ischemic necrosis of toe, Diabetic ulcer of left foot Forms Stand Alone Forms: My [facility] Prescriptions Prescriptions: No Action doxycycline hyclate 100 mg tablet 100 mg PO bid Qty: 28 0RF Rx Instructions: STARTED 11/18/23 FOR 14 DAYS atorvastatin 40 mg tablet 40 mg PO QAM Eliquis 5 mg tablet 5 mg PO BID insulin glargine [Basaglar KwikPen U-100 Insulin] 100 unit/mL (3 mL) insulin pen 45 unit SUBCUT QPM omega-3 fatty acids 1,000 mg Capsule 1,000 mg PO BID sennosides [senna] 8.6 mg Tablet 17.2 mg PO HS PRN (Reason: Constipation) digoxin 125 mcg (0.125 mg) tablet 125 mcg PO Q2D Rx Instructions: ON HOLD WHILE ON DOXYCYCLINEPER PT'S lenalidomide [Revlimid] 10 mg capsule 10 mg PO DIRECTED Patient Comments: on hold currently (09/30/23) Rx Instructions: TAKES FOR 21 DAYS THEN OFF FOR 7 DAYS - off right now potassium chloride 20 mEq tablet,ER particles/crystals 20 meq PO BID calcium carbonate-vitamin D3 [Calcium 600 + D(3)] 600 mg-10 mcg (400 unit) tablet 1 tab PO DAILY Rx Instructions: ON HOLD WHILE ON DOXYCYCLINEPER PT'S prochlorperazine maleate 10 mg Tablet 10 mg PO Q6H PRN (Reason: nausea) ondansetron 8 mg Tablet,Disintegrating 8 mg PO Q8H PRN (Reason: Nausea) Victoza 2-Jed 0.6 mg/0.1 mL (18 mg/3 mL) Pen Injector 1.2 mg SUBCUT DAILY polyethylene glycol 3350 [Miralax] 17 gram Powder In Packet 17 g PO DAILY PRN (Reason: constipation) Qty: 15 0RF nitroglycerin 0.4 mg tablet, sublingual 0.4 mg sublingual .Q 5 MIN MDD 3 doses in 15 min PRN (Reason: Chest Pain) insulin aspart U-100 [Novolog FlexPen U-100 Insulin] 100 unit/mL (3 mL) insulin pen 15 unit SUBCUT TIDM MDD 60 UNITS Patient Comments: Uses scale to dose Rx Instructions: PLUS CORRECTION OF 1:25 OVER 150. gabapentin 300 mg capsule 300 mg PO BID Rx Instructions: BID PER DR 1ST docusate sodium [Colace] 100 mg capsule 100 mg PO BID PRN (Reason: Constipation) morphine 15 mg tablet 15 mg PO Q4H PRN (Reason: Pain) mecobalamin (vitamin B12) [B12 Active] 1,000 mcg Tablet,Chewable 1,000 mcg PO QAM dexamethasone 4 mg tablet 20 mg PO WK Patient Comments: on hold Rx Instructions: Tuesdays, chemotherapy on hold mirtazapine 30 mg tablet 30 mg PO HS omeprazole 20 mg capsule,delayed release(DR/EC) 20 mg PO QAM Linzess 145 mcg capsule 145 mcg PO DAILY furosemide [Lasix] 20 mg tablet 20 mg PO UD Qty: 30 0RF Rx Instructions: 3 times a week--on Wednesday, Wednesday and Wednesday only metoprolol succinate [Toprol XL] 50 mg tablet extended release 24 hr 50 mg PO BID Rx Instructions: Take Metoprolol 75mg QAM and 50mg QPM metoprolol succinate 25 mg tablet extended release 24 hr 25 mg PO QAM Rx Instructions: Take Metoprolol 75mg QAM and 50mg QPM Referrals Referrals: Landen Macario DO [Primary Care Provider] - Discharge Problem: Diabetic ulcer of left foot Qualifiers: Diabetic foot ulcer location: midfoot Diabetes mellitus type: type 2 Non- pressure ulcer stage: unspecified non-pressure ulcer stage Qualified Code(s): E 11.621 - Type 2 diabetes mellitus with foot ulcer; L97.429 - Non-pressure chronic ulcer of left heel and midfoot with unspecified severity
[2023-11-21] MEDS ORDERED: VANCOMYCIN CONSULT ACTIVE PRN (22:28)
[2023-11-21] MEDS: PIPERACILLIN/TAZOBACTAM 4.5 GM/100 ML BAG IV ONE (22:37)
[2023-11-21] MEDS: VANCOMYCIN HCL 1,500 MG in SODIUM CHLORIDE 0.9% 500 ML IV ONE (23:11)
[2023-11-21] MEDS: MoRPHine SULFATE IR 15 MG TAB (IMMEDIATE RELEASE) PO STA (23:47)
--- NOTE | 2023-11-22 02:14 | History & Physical Report ---
Date of Service November 22, 2023 Assessment & Plan (1) Ischemic necrosis of toe: Plan: 78-year-old male with past medical history significant for type 2 diabetes, hyperlipidemia, peripheral neuropathy, COPD, interstitial lung disease, paroxysmal atrial fibrillation, chronic systolic and diastolic CHF, tachybradycardia syndrome s/p pacemaker, history of CAD s/p CABG, GERD, CKD stage III, multiple myeloma on chemo, presents with necrotic left second toe. Patient underwent amputation of the distal phalanx of left second toe on 10/22/2023 secondary to osteomyelitis. And when sutures were removed on Nov 08 2023 wound dehiscence was noted. Following with the wound care. Has a follow- up appoint with podiatry on November 22, 2023. Also seen by vascular medicine on October 14, 2023 prior to surgery. 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 Comes to the ER today because of discoloration of the second left toe. Toe is dark in color. Some mild oozing seen. Patient says because of multiple procedures to the left foot he did not have any sensations. Denies any fevers. Hemodynamics are stable. Denies any chest pain or shortness of breath. No cough. Currently no abdominal pain. Somewhat constipated. Denies any bloody stools. Normal micturition. No headache. No earache or runny nose or nose or sore throat. No cough. Resting comfortably. Ischemic necrosis of left second toe IV Vanco and Zosyn Gentle fluids N.p.o. Podiatry consult in a.m. Can consult vascular medicine Close monitor Chronic systolic and diastolic CHF Echo from June 2023 EF 35 to 40%, moderate mitral regurgitation, moderate aortic valve sclerosis. Moderate dilated left atrium Currently on Lasix 3 times a week which will be continued Currently on gentle fluids as patient is n.p.o. Will monitor for volume overload Type 2 diabetes Placed on Lantus 20 units daily as patient is n.p.o. Sliding scale Will monitor Paroxysmal atrial fibrillation Tachybradycardia syndrome s/p pacemaker On digoxin, Toprol-XL Holding Eliquis for procedures and restart as soon as possible Hypertension On metoprolol succinate Monitor Hyperlipidemia On statin History of CAD s/p CABG On beta-annika and statin Currently holding Eliquis CKD stage III Present creatinine 1.05 Will follow labs Multiple myeloma Maintenance Chemo was recently restarted Will hold Revlimid for now Follow-up with heme-onc History of COPD Interstitial lung disease Will monitor DVT prophylaxis SCDs for now Restart Eliquis as soon as possible Disposition Med/telemetry as patient has multiple cardiac history Full code History of Present Illness Chief Complaint: Necrotic left second toe Primary Care Provider: Landen Macario DO 78-year-old male with past medical history significant for type 2 diabetes, hyperlipidemia, peripheral neuropathy, COPD, interstitial lung disease, paroxysmal atrial fibrillation, chronic systolic and diastolic CHF, tachybradycardia syndrome s/p pacemaker, history of CAD s/p CABG, GERD, CKD stage III, multiple myeloma on chemo, presents with necrotic left second toe. Patient underwent amputation of the distal phalanx of left second toe on 10/22/2023 secondary to osteomyelitis. And when sutures were removed on Nov 08 2023 wound dehiscence was noted. Following with the wound care. Has a follow- up appoint with podiatry on November 22, 2023. Also seen by vascular medicine on October 14, 2023 prior to surgery. 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 Comes to the ER today because of discoloration of the second left toe. Toe is dark in color. Some mild oozing seen. Patient says because of multiple procedures to the left foot he did not have any sensations. Denies any fevers. Hemodynamics are stable. Denies any chest pain or shortness of breath. No cough. Currently no abdominal pain. Somewhat constipated. Denies any bloody stools. Normal micturition. No headache. No earache or runny nose or nose or sore throat. No cough. Resting comfortably. Past medical history. As mentioned above Past surgical history. Left bone marrow biopsy, CABG, colonoscopy, ostectomy first metatarsal left side, ORIF left foot MTPJ, revision of MTP joint, IR biopsy, Mohs surgery stage I, relieve inner eye pressure, bilateral cataract surgery, total hip replacement. Family history. Brother had lung cancer. Mother had lymphoma. Social history. . Quit smoking 1980s. Smoked 1.5 packs a day for 25 years. No alcohol currently. Medical marijuana. Allergies Allergy/AdvReac Type Severity Reaction Status Date / Time tizanidine AdvReac Intermediate "Woozy" Verified 11/21/23 22:43 feeling Home Medications Medication Instructions Recorded Confirmed Type apixaban 5 mg tablet (Eliquis) 5 mg PO BID 06/25/20 11/21/23 History atorvastatin 40 mg tablet 40 mg PO QAM 06/25/20 11/21/23 History liraglutide 0.6 mg/0.1 mL (18 mg/3 1.2 mg subcut DAILY 09/30/21 11/21/23 History mL) subcutaneous pen injector (Victoza 2-Jed) ondansetron 8 mg disintegrating 8 mg PO Q8H PRN Nausea 09/30/21 11/21/23 History tablet prochlorperazine maleate 10 mg 10 mg PO Q6H PRN nausea 09/30/21 11/21/23 History tablet polyethylene glycol 3350 17 gram 17 g PO DAILY PRN constipation #15 10/05/21 11/21/23 Rx oral powder packet (Miralax) ea nitroglycerin 0.4 mg sublingual 0.4 mg sublingual .Q 5 MIN PRN 11/01/21 11/21/23 History tablet Chest Pain omega-3 fatty acids 1,000 mg 1,000 mg PO BID 04/15/22 11/21/23 History capsule docusate sodium 100 mg capsule 100 mg PO BID PRN Constipation 04/22/22 11/21/23 History (Colace) gabapentin 300 mg capsule 300 mg PO BID 04/22/22 11/21/23 History mecobalamin (vitamin B12) 1,000 1,000 mcg PO QAM 04/22/22 11/21/23 History mcg chewable tablet (B12 Active) morphine 15 mg immediate release 15 mg PO Q4H PRN Pain 04/22/22 11/21/23 History tablet digoxin 125 mcg (0.125 mg) tablet 125 mcg PO Q2D 11/04/22 11/21/23 History lenalidomide 10 mg capsule 10 mg PO DIRECTED 11/04/22 11/21/23 History (Revlimid) potassium chloride 20 mEq 20 meq PO BID 11/04/22 11/21/23 History tablet,extended release(part/cryst) sennosides 8.6 mg tablet (senna) 17.2 mg PO HS PRN Constipation 11/04/22 11/21/23 History insulin aspart U-100 100 unit/mL 15 unit subcut TIDM 12/31/22 11/21/23 History (3 mL) subcutaneous pen (Novolog FlexPen U-100 Insulin aspart) insulin glargine 100 unit/mL (3 45 unit subcut QPM 12/31/22 11/21/23 History mL) subcutaneous pen (Basaglar KwikPen U-100 Insulin) dexamethasone 4 mg tablet 20 mg PO WK 06/25/23 11/21/23 History mirtazapine 30 mg tablet 30 mg PO HS 06/25/23 11/21/23 History omeprazole 20 mg capsule,delayed 20 mg PO QAM 06/25/23 11/21/23 History release linaclotide 145 mcg capsule 145 mcg PO DAILY 07/28/23 11/21/23 History (Linzess) furosemide 20 mg tablet (Lasix) 20 mg PO UD #30 tabs 07/29/23 11/21/23 Rx metoprolol succinate 25 mg 25 mg PO QAM 08/20/23 11/21/23 History tablet,extended release 24 hr metoprolol succinate 50 mg 50 mg PO BID 08/20/23 11/21/23 History tablet,extended release 24 hr (Toprol XL) calcium carbonate 600 mg-vitamin 1 tab PO DAILY 11/16/23 11/21/23 History D3 10 mcg (400 unit) tablet (Calcium 600 + D(3)) doxycycline hyclate 100 mg tablet 100 mg PO bid #28 tabs 11/18/23 11/21/23 Rx Past Med/Surg History Medical History COPD (chronic obstructive pulmonary disease) CKD (chronic kidney disease) stage 3, GFR 30-59 ml/min Multiple myeloma f/u oncology at [facility] Congestive heart failure Immunocompromised Interstitial lung disease PAF (paroxysmal atrial fibrillation) pacemaker placed in 2019 Diabetic ulcer of left foot Chronic deep vein thrombosis (DVT) LLE Diarrhea Pneumonia [facility] admission 08/2023 NSTEMI (non-ST elevated myocardial infarction) Per remote records History of pilonidal cyst Pacemaker Implanted 2019 History of melanoma in situ right catholic HLD (hyperlipidemia) CAD (coronary artery disease) s/p CABG x4 (age 48) Follow[address] with Dr[address] Lane/[facility] Type 2 diabetes mellitus IDDM Surgical History Hallux rigidus of left foot multiple surgeries Hx of colonoscopy S/P surgical removal of pilonidal cyst Hx of melanoma excision many years ago; right catholic Status post total hip replacement, left History of bone marrow biopsy early 2022 History of cataract surgery R/L S/P CABG x 4 Age 48 S/P Mohs surgery for basal cell carcinoma Family History Mother Lymphoma Social History Smoking Status: Former smoker Tobacco Type: Cigarettes Second Hand Exposure: Yes ( smokes); Do You Dip or Chew Tobacco: No; Hx Alcohol Use: Yes Alcohol type: beer Alcohol Intake Frequency: Monthly or Less Hx Substance Use: Yes Prescribed Medications: Marijuana Last Used Substance Other:: remote hx in s; medical card-does not use Substance Use Type Other:: has a marijuana card but he states he "... 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 able to assist with care as needed. Feels Safe at Home: Yes Diet: regular Diet Comment: Trying to gain weight caffeine: No during the past year weight has: decreased > 10 lbs Assistive Devices: Cane Review of Systems Review of Systems: All systems reviewed & are unremarkable except as noted in HPI & below Physical Exam Physical Exam: General- Not in distress Head- atraumatic Eyes- PERRL. ENT- oropharynx clear Neck- supple, no JVD. Lungs- clear to auscultation no wheezing or crackles. Heart- regular rhythm; no murmur, no gallop Abdomen- normal bowel sounds, soft, nontender, no distension. Extremities- Left second toe is gangrenous with mild drainage seen and erythema surrounding foot Neuro- alert, oriented x 3; PERRL no facial palsy; no dysarthria; moves extremities. Results & Data Results & Data Vital Signs (Past 12 Hours) Vital Signs Temp Pulse Pulse Resp BP BP Pulse Ox 11/22/23 01:00 65 16 122/62 99 11/22/23 00:00 68 16 131/61 98 11/21/23 23:21 66 20 121/51 L 98 11/21/23 22:35 68 11/21/23 22:27 85 18 132/70 96 11/21/23 20:01 36.3 C L 83 17 139/70 96 O2 Del Method 11/22/23 01:00 Room Air 11/22/23 00:00 Room Air 11/21/23 23:21 Room Air 11/21/23 22:35 11/21/23 22:27 Room Air 11/21/23 20:01 Room Air Diagnostic Findings Laboratory Results WBC 5.47 K/ul (4.8-10.8) 11/21/23 20:31 RBC 3.11 M/uL (4.70-6.10) L 11/21/23 20:31 Hgb 9.6 g/dl (14.0-18.0) L 11/21/23 20:31 Hct 30.1 % (42.0-52.0) L 11/21/23 20:31 MCV 96.8 fL (80.0-100.0) 11/21/23 20:31 MCH 30.9 pg (25.0-34.0) 11/21/23 20: MCHC 31.9 g/dL (32.0-36.0) L 11/21/23 20:31 RDW Std Deviation 59.0 fL (36.4-46.3) H 11/21/23 20:31 RDW Coeff of Collin 16.8 % (11.5-14.5) H 11/21/23 20:31 Plt Count 107 K/uL (130-400) L 11/21/23 20:31 MPV 10.3 fL (9.4-12.4) 11/21/23 20:31 Immature Gran % (Auto) 0.9 % 11/21/23 20: Neut % (Auto) 66.0 % 11/21/23 20:31 Lymph % (Auto) 15.9 % 11/21/23 20:31 [place] % (Auto) 15.5 % 11/21/23 20:31 Eos % (Auto) 1.5 % 11/21/23 20:31 Baso % (Auto) 0.2 % 11/21/23 20: Neut # (Auto) 3.61 K/uL (1.40-6.50) 11/21/23 20:31 Lymph # (Auto) 0.87 K/uL (1.20-3.40) L 11/21/23 20:31 [place] # (Auto) 0.85 K/uL (0.11-0.59) H 11/21/23 20:31 Eos # (Auto) 0.08 K/uL (0.00-0.50) 11/21/23 20:31 Baso # (Auto) 0.01 K/uL (0.00-0.20) 11/21/23 20: Immature Gran # (Auto) 0.05 K/uL (0.01-0.20) 11/21/23 20:31 Sodium 138 mmol/L (136-145) 11/21/23 20:31 Potassium 4.7 mmol/L (3.5-5.1) 11/21/23 20:31 Chloride 105 mmol/L (98-107) 11/21/23 20:31 Carbon Dioxide 23 mmol/L (21-32) 11/21/23 20:31 Anion Gap 10 (3-11) 11/21/23 20:31 BUN 16 mg/dl (6-23) 11/21/23 20:31 Creatinine 1.05 mg/dl (0.6-1.4) 11/21/23 20:31 Est Cr Clr Drug Dosing 59.5 ml/min 11/21/23 20:31 Est GFR ( Amer) 79.0 ml/min 11/21/23 20:31 Est GFR (Non-Af Amer) 68.1 ml/min 11/21/23 20:31 BUN/Creatinine Ratio 15.2 (10-20) 11/21/23 20:31 Glucose 101 mg/dl (70-99(Fasting)) H 11/21/23 20:31 Calcium 9.1 mg/dl (8.6-10.3) 11/21/23 20:31 Total Bilirubin 0.5 mg/dl (0.2-1.0) 11/21/23 20:31 AST 18 U/L (13-39) 11/21/23 20:31 ALT 13 U/L (7-52) 11/21/23 20:31 Alkaline Phosphatase 47 U/L (34-104) 11/21/23 20:31 Total Protein 6.9 gm/dl (6.0-8.3) 11/21/23 20:31 Albumin 4.1 gm/dl (3.4-5.0) 11/21/23 20:31 Globulin 2.8 gm/dl (2.5-4.0) 11/21/23 20:31 Albumin/Globulin Ratio 1.5 (0.9-2) 11/21/23 20:31 Code Status & VTE Plan VTE Prophylaxis Plan VTE Prophylaxis will be ordered: Yes
[2023-11-22] MEDS ORDERED: CARBOHYDRATES FOR HYPOGLYCEMIA PO PRN (02:32)
[2023-11-22] MEDS ORDERED: GLUCOSE 40% GEL 15 GM TUBE PO PRN (02:32)
[2023-11-22] MEDS ORDERED: PROCHLORPERAZINE MALEATE 10 MG TAB PO PRN (02:32)
[2023-11-22] MEDS ORDERED: GLUCAGON FOR INJ 1 MG VIAL SQ PRN (02:32)
[2023-11-22] MEDS ORDERED: DEXTROSE 50% 50 ML SYRINGE IV PRN (02:32)
[2023-11-22] MEDS ORDERED: POLYETHYLENE (MIRALAX) 17 GM PACK PO PRN ×2 (02:32)
[2023-11-22] MEDS ORDERED: NITROGLYCERIN SL 0.4 MG/TAB TAB SL PRN ×2 (02:32)
[2023-11-22] MEDS ORDERED: GLUCOSE 10 TAB/TUBE PO PRN (02:32)
[2023-11-22] MEDS ORDERED: DOCUSATE SODIUM 100 MG CAP PO PRN (02:32)
[2023-11-22] MEDS: SODIUM CHLORIDE 0.9% 1,000 ML IV SCH (03:52)
[2023-11-22] MEDS: PIPERACILLIN/TAZOBACTAM 4.5 GM in DEXTROSE 5% MINI-B 100 ML IV SCH (03:52)
--- NOTE | 2023-11-22 06:43 | XRay Report ---
XR toe(s) LT min 2V CLINICAL HISTORY: 2nd toe black COMPARISON STUDY: Left second toe 09/28/2023. FINDINGS: Interval amputation of the distal phalanx of the left second toe. Mild soft tissue swelling and a small skin ulceration at the distal second toe. No underlying bony destruction to suggest an o steomyelitis. No fracture or dislocation. Postoperative changes again noted at the first MTP joint. IMPRESSION: 1. Interval amputation of the distal phalanx of the left second toe. 2. Mild soft tissue swelling and a small skin ulceration at the distal left second toe. 3. No evidence for osteomyelitis. ACT 112: Negative or not required by law. Electronically signed by: Sloan Dang M.D. 11/22/2023 6:42 AM
[2023-11-22 07:11] LABS: Eosinophils # (auto) 0.08 K/uL (0.00-0.50); Eosinophils % (auto) 2.6 %; Hematocrit (blood only) 25.7 % (42.0-52.0); Hemoglobin 8.1 g/dl (14.0-18.0); Immature Granulocytes # (auto) 0.03 K/uL (0.01-0.20); Lymphocytes # (auto) 0.71 K/uL (1.20-3.40); Lymphocytes % (auto) 22.7 %; Mean Corpuscular Hemoglobin 30.6 pg (25.0-34.0); Mean Corpuscular Hgb Conc 31.5 g/dL (32.0-36.0); Mean Platelet Volume 10.4 fL (9.4-12.4); Monocytes # (auto) 0.59 K/uL (0.11-0.59); Monocytes % (auto) 18.8 %; Neutrophils # (auto) 1.72 K/uL (1.40-6.50); Neutrophils % (auto) 54.9 %; Platelet Count 76 K/uL (130-400); RDW Coefficient of Variation 16.8 % (11.5-14.5); RDW Standard Deviation 59.3 fL (36.4-46.3); Red Blood Count 2.65 M/uL (4.70-6.10); White Blood Count 3.13 K/ul (4.8-10.8)
[2023-11-22 07:27] LABS: BUN Creatinine Ratio 12.8 (10-20); Creatinine Clr Calc Pharmacy 53.4 ml/min; Est GFR (African American) 69.3 ml/min; Est GFR (Non-African American) 59.8 ml/min; Magnesium 1.7 mg/dl (1.7-2.4)
[2023-11-22 07:35] LABS: Estimated Average Glucose 131 mg/dl; Hemoglobin A1C 6.2 % (4.5-5.6)
[2023-11-22] MEDS: INSULIN ASPART PER UNIT CHARGE SC SCH (08:43)
[2023-11-22] MEDS ORDERED: DOXYCYCLINE HYCLATE 100 MG CAP PO SCH (09:00)
[2023-11-22] MEDS: LINACLOTIDE 145 MCG CAPSULE PO SCH (09:26)
[2023-11-22] MEDS: FUROSEMIDE 20 MG TAB PO SCH (09:26)
[2023-11-22] MEDS: GABAPENTIN 300 MG CAP PO SCH (09:26)
[2023-11-22] MEDS: ATORVASTATIN 40 MG TAB PO SCH (09:26)
[2023-11-22] MEDS: CYANOCOBALAMIN (B-12) 500 MCG TABLET PO SCH (09:26)
[2023-11-22] MEDS: METOPROLOL SUCC 25MG EXT REL TAB PO SCH (09:27)
[2023-11-22] MEDS: CALCIUM 600MG + VIT D 400 IU TAB PO SCH (09:28)
[2023-11-22] MEDS: PANTOprazole 40 MG TAB PO SCH (09:28)
[2023-11-22] MEDS: POTASSIUM CHLORIDE CRTAB 20 MEQ TABCR PO SCH (09:29)
[2023-11-22] MEDS: LANTUS PER UNIT CHARGE SQ SCH (09:33)
--- NOTE | 2023-11-22 10:53 | Pharmacy Report ---
Pharmacy PK ABX Note - Date of Service November 22, 2023 - Assessment and Plan Assessment * 78 year old M receiving VANCOMCYIN + ZOSYN + DOXYCYCLINE for treatment of diabetic foot, L 2nd toe necrosis. * Pertinent microbiologic data includes: 11/16/23 L 2nd toe cx growing MSSA; pt has h/o of pseudomonas aeruginosa in prior foot cultures (however organism was pansensitive) Plan Vancomycin * Loading dose: 1500 mg IV x 1 * Maintenance dose: 750 mg IV every 12 hours * Regimen is predicted to achieve target AUC/KANDI of 400-600 mg/L.hr with ~15% risk of nephrotoxicity * Trough level ordered for: 11/23/22 (prior to 3rd maint dose) Pharmacy will continue to follow and will adjust dose/frequency as necessary. Thank you. Pharmacy has transitioned to AUC monitoring for vancomycin. AUC/KANDI is the preferred PK/PD target and is associated with decreased risk of nephrotoxicity compared to traditional trough targets.
[2023-11-22] MEDS: VANCOMYCIN HCL 750 MG in SODIUM CHLORIDE 0.9% 250 ML IV SCH (11:16)
--- NOTE | 2023-11-22 16:37 | Communication Note ---
Date of Service: November 22, 2023 Patient seen and examined at bedside. He is lying on the bed comfortably; he is awaiting podiatry to evaluate him. On physical examination; Constitutional: WD/WN, vitals as above, NAD, sitting up in bed, pleasant, conversing easily Respiratory: normal respiratory effort, lungs clear to auscultation, no wheeze, rales, rhonchi. Normal insp/exp effort, no accessory muscle use Cardiovascular: RRR, no murmur, no edema Vessels: no JVD or carotid bruit Chest: normal inspection of chest Abdomen: normal bowel sounds, soft, nontender, no hepatosplenomegaly Musculoskeletal: Gangrene present in left second toe with mild drainage and erythema surrounding the foot. Skin: no rashes, warm and dry normal turgor Neurologic: PERRL, EOMI, accommodation nl, no face palsy, no dysarthria CN's II- XI intact bilaterally and moves all extremities Psychiatric: A+Ox3, euthymic affect Assessment/plan Left second toe gangrene; Podiatry informed regarding patient's admission; appreciate input. Patient kept n.p.o. from midnight Continue on IV antibiotics. Continue other home medications.
--- NOTE | 2023-11-22 17:44 | Podiatry Consultation ---
Date of Consultation November 22, 2023 Assessment & Plan (1) Diabetic ulcer of left foot: Diabetes mellitus type: type 2 Diabetic foot ulcer location: midfoot Non-pressure ulcer stage: unspecified non-pressure ulcer stage Qualified Code(s): E11.621 - Type 2 diabetes mellitus with foot ulcer; L97.429 - Non-pressure chronic ulcer of left heel and midfoot with unspecified severity (2) Ischemic necrosis of toe: (3) Surgical wound dehiscence: (4) Acquired hammertoe of left foot: (5) Diabetic ulcer of toe of left foot associated with diabetes mellitus due to underlying condition, with necrosis of bone: Plan Patient examined and evaluated at bedside. Chart reviewed, including recent radiographs. -Patient will require a left second toe amputation, though this is not urgent or emergent. -Gangrene of the toe is well demarcated with no ascending cellulitis at this time. Continue IV antibiotics for now. -He will benefit from follow-up with vascular surgery as well as cardiology and likely oncology during this hospitalization. -Ideally, he has vascular clearance and cardiology clearance before undergoing a surgical amputation. This could ideally prevent further more proximal levels of amputation. -Further, this acute ischemia can be a result of a embolic event from a more proximal embolus that can be more life-threatening. -For now, we will plan on surgery later in the week, when stable and followed up with these other specialist. -Thank you for the consult, we look forward to helping him out while here in the hospital. History of Present Illness Reason for Consultation: Left toe necrosis Attending Physician: Juan Brooks MD History of Present Illness Patient seen at bedside in the emergency department. He states that over the last week he has noticed increasing blackening of the left second toe. He has had surgery on this toe couple of months ago, which was to amputate the distal tip of the toe. He doesn't heal this uneventfully except for a small suture reaction. He had been following up with wound care for this and had been improving as well. Over the last week, though, he has noticed this acute blackening of the toe. He states that he has no pain to the toe and has no systemic signs of infection. He states that he is scheduled to see cardiology and oncology soon and was scheduled for open wound care and to see us on an outpatient basis. Allergies Allergy/AdvReac Type Severity Reaction Status Date / Time tizanidine AdvReac Intermediate "Woozy" Verified 11/21/23 22:43 feeling Home Medications Medication Instructions Recorded Confirmed Type apixaban 5 mg tablet (Eliquis) 5 mg PO BID 06/25/20 11/21/23 History atorvastatin 40 mg tablet 40 mg PO QAM 06/25/20 11/21/23 History liraglutide 0.6 mg/0.1 mL (18 mg/3 1.2 mg subcut DAILY 09/30/21 11/21/23 History mL) subcutaneous pen injector (Victoza 2-Jed) ondansetron 8 mg disintegrating 8 mg PO Q8H PRN Nausea 09/30/21 11/21/23 History tablet prochlorperazine maleate 10 mg 10 mg PO Q6H PRN nausea 09/30/21 11/21/23 History tablet polyethylene glycol 3350 17 gram 17 g PO DAILY PRN constipation #15 10/05/21 11/21/23 Rx oral powder packet (Miralax) ea nitroglycerin 0.4 mg sublingual 0.4 mg sublingual .Q 5 MIN PRN 11/01/21 11/21/23 History tablet Chest Pain omega-3 fatty acids 1,000 mg 1,000 mg PO BID 04/15/22 11/21/23 History capsule docusate sodium 100 mg capsule 100 mg PO BID PRN Constipation 04/22/22 11/21/23 History (Colace) gabapentin 300 mg capsule 300 mg PO BID 04/22/22 11/21/23 History mecobalamin (vitamin B12) 1,000 1,000 mcg PO QAM 04/22/22 11/21/23 History mcg chewable tablet (B12 Active) morphine 15 mg immediate release 15 mg PO Q4H PRN Pain 04/22/22 11/21/23 History tablet digoxin 125 mcg (0.125 mg) tablet 125 mcg PO Q2D 11/04/22 11/21/23 History lenalidomide 10 mg capsule 10 mg PO DIRECTED 11/04/22 11/21/23 History (Revlimid) potassium chloride 20 mEq 20 meq PO BID 11/04/22 11/21/23 History tablet,extended release(part/cryst) sennosides 8.6 mg tablet (senna) 17.2 mg PO HS PRN Constipation 11/04/22 11/21/23 History insulin aspart U-100 100 unit/mL 15 unit subcut TIDM 12/31/22 11/21/23 History (3 mL) subcutaneous pen (Novolog FlexPen U-100 Insulin aspart) insulin glargine 100 unit/mL (3 45 unit subcut QPM 12/31/22 11/21/23 History mL) subcutaneous pen (Basaglar KwikPen U-100 Insulin) dexamethasone 4 mg tablet 20 mg PO WK 06/25/23 11/21/23 History mirtazapine 30 mg tablet 30 mg PO HS 06/25/23 11/21/23 History omeprazole 20 mg capsule,delayed 20 mg PO QAM 06/25/23 11/21/23 History release linaclotide 145 mcg capsule 145 mcg PO DAILY 07/28/23 11/21/23 History (Linzess) furosemide 20 mg tablet (Lasix) 20 mg PO UD #30 tabs 07/29/23 11/21/23 Rx metoprolol succinate 25 mg 25 mg PO QAM 08/20/23 11/21/23 History tablet,extended release 24 hr metoprolol succinate 50 mg 50 mg PO BID 08/20/23 11/21/23 History tablet,extended release 24 hr (Toprol XL) calcium carbonate 600 mg-vitamin 1 tab PO DAILY 11/16/23 11/21/23 History D3 10 mcg (400 unit) tablet (Calcium 600 + D(3)) doxycycline hyclate 100 mg tablet 100 mg PO bid #28 tabs 11/18/23 11/21/23 Rx Patient History Medical History COPD (chronic obstructive pulmonary disease) CKD (chronic kidney disease) stage 3, GFR 30-59 ml/min Multiple myeloma f/u oncology at [facility] Congestive heart failure Immunocompromised Interstitial lung disease PAF (paroxysmal atrial fibrillation) pacemaker placed in 2019 Diabetic ulcer of left foot Chronic deep vein thrombosis (DVT) LLE Diarrhea Pneumonia [facility] admission 08/2023 NSTEMI (non-ST elevated myocardial infarction) Per remote records History of pilonidal cyst Pacemaker Implanted 2019 History of melanoma in situ 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 Lane/[facility] Type 2 diabetes mellitus IDDM Surgical History Hallux rigidus of left foot multiple surgeries Hx of colonoscopy S/P surgical removal of pilonidal cyst Hx of melanoma excision many years ago; right scientologist Status post total hip replacement, left History of bone marrow biopsy early 2022 History of cataract surgery R/L S/P CABG x 4 Age 48 S/P Mohs surgery for basal cell carcinoma Family History Mother Lymphoma Social History Smoking Status: Former smoker Tobacco Type: Cigarettes Second Hand Exposure: Yes ( smokes); Do You Dip or Chew Tobacco: No; Hx Alcohol Use: Yes Alcohol type: beer Alcohol Intake Frequency: Monthly or Less Hx Substance Use: Yes Prescribed Medications: Marijuana Last Used Substance Other:: remote hx in s; medical card-does not use Substance Use Type Other:: has a marijuana card but he states he "... doesnt use it" Preferred Language: Korean Communication Ability: Effective Visual Impairment: No Limitations Hearing Ability: Normal Document Controller Required: No Beliefs That Will Affect Care: None marital status: Current Living Situation: Spouse Current Living Situation Comment: home current occupational status: retired How many Children do You have: 1 How many Children do You have Comment: Magi lives in [facility]. able to assist with care as needed. Feels Safe at Home: Yes Diet: regular Diet Comment: Trying to gain weight caffeine: No during the past year weight has: decreased > 10 lbs Assistive Devices: Cane Review of Systems Review of Systems: All systems reviewed & are unremarkable except as noted in HPI & below Constitutional: + fatigue; no fever and no chills Eyes: no problem reported Ear, Nose, Mouth, Throat: no problem reported Respiratory: no problem reported Cardiovascular: as per Subjective / HPI and + problem reported; no chest pain Gastrointestinal: no problem reported Musculoskeletal: + stiffness Integumentary: + new lesions, + non-healing lesions, + changing lesions and + erythema Psychiatric: + depression; no behavioral changes and no problem reported Endocrine: no problem reported Physical Exam Physical Exam: DP/PT pulses 0/4 bilateral. Advanced trophic changes noted to the bilateral lower extremity. Acute ischemia with necrosis is noted to this left Second toe. No specific open wound is noted, though the toe is extensively dryly necrotic to the level of the mid proximal phalanx. This is affecting the toes circumferentially. No purulent drainage is noted though there is some serous weeping to the proximal aspect of the toe. No pain on palpation is appreciated. There is pain with aggressive compression of the toe, so pain sensation is still intact. There is soft tissue crepitus and underlying mummification of the toe. No active range of motion of the distal aspect of the toe is appreciated. No other toes are affected by this at this time. There is dependent rubor and distal cooling appreciated overall. CFT to the remainder of the digits is within normal limits. Sensation is intact to the remainder of the foot as well. No abnormal reflexes are noted. No additional open wounds are appreciated. The prior surgical site is well healed, despite the advancing necrosis. Constitutional: WD/WN, vitals as above well developed and + ill appearing; no acute distress Eyes: PERRL, conjunctivae normal, anicteric sclerae ENMT: external ear and nose normal, oropharynx normal Neck: trachea midline, no thyromegaly Respiratory: normal respiratory effort, lungs clear to auscultation Cardiovascular: Rate/Rhythm: regular rate and regular rhythm Vessels: + posterior tibial pulses abnormal and + dorsalis pedis pulses abnormal Chest (Breasts): normal inspection/palpation of breasts Gastrointestinal (Abdomen): normal bowel sounds, soft, nontender, no hepatosplenomegaly Musculoskeletal: Head/Neck/Chest: normocephalic and head atraumatic; head normal to inspection Extremities: + limited ROM of extremities and + amputation noted (Left distal phalanx of 2nd toe) Gait: + limp Skin: + turgor decreased, + skin atrophy, + er ythema, + nails discolored and + nails dystrophic Neurologic: patellar DTR's 2+ bilat, sensation intact and PERRL, EOMI, accommodation nl, no face palsy, no dysarthria moves all extremities; + abnormal sensation to monofilament Psychiatric: A+Ox3, euthymic affect Results & Data Vital Signs (Past 12 Hours) Vital Signs Pulse Pulse Resp BP Pulse Ox O2 Del Method 11/22/23 14:46 64 18 110/51 L 97 Room Air 11/22/23 09:38 68 15 117/62 94 Room Air 11/22/23 07:53 68 Diagnostic Findings Radiographs were reviewed and did reveal no significant soft tissue gas formation or changes to the structures of the bone. There is no underlying evidence of osteomyelitis.
[2023-11-22] MEDS: DIGOXIN 0.125 MG TAB PO SCH (17:53)
[2023-11-22] MEDS: MIRTAZAPINE TAB 15 MG TAB PO SCH (19:54)
[2023-11-22] MEDS: METOPROLOL SUCC 50MG EXT REL TAB PO SCH (19:54)
[2023-11-22] MEDS: MoRPHine SULFATE IR 15 MG TAB (IMMEDIATE RELEASE) PO STA (21:54)
[2023-11-23 07:07] LABS: Basophils # (auto) 0.01 K/uL (0.00-0.20); Basophils % (auto) 0.3 %; Eosinophils # (auto) 0.07 K/uL (0.00-0.50); Eosinophils % (auto) 2.2 %; Hematocrit (blood only) 24.9 % (42.0-52.0); Hemoglobin 8.1 g/dl (14.0-18.0); Immature Granulocytes # (auto) 0.02 K/uL (0.01-0.20); Immature Granulocytes % (auto) 0.6 %; Lymphocytes # (auto) 0.65 K/uL (1.20-3.40); Lymphocytes % (auto) 20.8 %; Mean Corpuscular Hemoglobin 30.9 pg (25.0-34.0); Mean Corpuscular Hgb Conc 32.5 g/dL (32.0-36.0); Mean Platelet Volume 10.7 fL (9.4-12.4); Monocytes # (auto) 0.57 K/uL (0.11-0.59); Monocytes % (auto) 18.3 %; Neutrophils % (auto) 57.8 %; Platelet Count 87 K/uL (130-400); RDW Coefficient of Variation 16.4 % (11.5-14.5); RDW Standard Deviation 55.7 fL (36.4-46.3); Red Blood Count 2.62 M/uL (4.70-6.10); White Blood Count 3.12 K/ul (4.8-10.8)
[2023-11-23 07:21] LABS: Albumin Globulin Ratio 1.7 (0.9-2); Albumin Level 3.5 gm/dl (3.4-5.0); BUN Creatinine Ratio 14.1 (10-20); Bilirubin,Total 0.4 mg/dl (0.2-1.0); Calcium 7.7 mg/dl (8.6-10.3); Creatinine Clr Calc Pharmacy 68.5 ml/min; Est GFR (African American) 92.7 ml/min; Est GFR (Non-African American) 79.9 ml/min; Globulin 2.1 gm/dl (2.5-4.0); Potassium 3.7 mmol/L (3.5-5.1); Total Protein 5.6 gm/dl (6.0-8.3)
--- NOTE | 2023-11-23 09:35 | Cardiology Consultation ---
Date of Consultation November 23, 2023 Assessment & Plan (1) Preop cardiovascular exam: (2) Chronic heart failure with reduced ejection fraction and diastolic dysfunction: (3) CAD (coronary artery disease): (4) PVD (peripheral vascular disease): (5) Paroxysmal atrial fibrillation: (6) Tachy-noman syndrome: Plan 78-year-old patient admitted due to gangrene of the left second toe. Patient is considered moderate perioperative risk from a cardiovascular perspective due to complex issues noted above. He appears compensated from a heart failure perspective. No recent unstable angina, decompensated heart failure, or unstable dysrhythmia. Carries a history of paroxysmal atrial fibrillation, however, remains in sinus rhythm since admission. No further cardiac testing or intervention would lower his perioperative risk at this time. Eliquis on hold in anticipation of podiatric surgery. Recommend IV heparin bridging. Continue beta-annika uninterrupted perioperatively. Patient treated with apixaban-only without low-dose aspirin due to history of anemia, and thrombocytopenia related to multiple myeloma. Thank you for allow me to take part in the care of your patient. I will continue to follow during hospitalization. History of Present Illness Reason for Consultation: Preoperative cardiovascular evaluation. Requesting Physician: Dr. Brooks Attending Physician: Juan Brooks MD History of Present Illness Complex 78-year-old male present to the emergency department 11/21/2023 secondary to gangrene of left second toe. Underwent amputation of the distal phalanx of the left second toe on 10/22/2023 due to osteomyelitis. Sutures removed 11/08/2023 demonstrating wound dehiscence. He followed with wound care. Approximately 1 week ago, patient noted black discoloration of his second left toe. No pain or discomfort. History of peripheral vascular disease and known occlusion of the left popliteal artery dating back to 2014. Patient seen examined the bedside. Essentially asymptomatic from a cardiovascular perspective. Denies chest pain, shortness of breath, or palpitations. Telemetry reveals sinus rhythm and intermittent atrial pacing. No atrial fibrillation. Review of most recent device interrogation performed 08/2023 demonstrates atrial fibrillation burden of 18%. He is chronically anticoagulated with Eliquis, however, on hold in anticipation of possible toe amputation. Offers no other concerns/complaints currently. Complex history noted below. Cardiovascular history copied from the [facility] medical record: 1. Ischemic cardiomyopathy, LVEF 35-40% status post remote bypass surgery, chronic class 2-3 angina pectoris 2. Systolic and diastolic heart failure with GDMT therapies limited by chronic hypotension and orthostatic hypotension, receiving 20 mg IV furosemide at [facility] 3. Paroxysmal atrial fibrillation with patient not felt to be a good candidate for antiarrhythmic therapy - Renal function prevents use of dofetilide - Decreased EF prevents use of Multaq and sotalol due to CHF concerns - Amiodarone previously prescribed from September 2021 to March [address] Martinez recommended discontinuation due to concerns for amiodarone induced lung toxicity; 4. Tachybradycardia syndrome status post pacemaker implantation 04/23/2020 5. Atherosclerotic peripheral vascular disease with an open wound on the left lower extremity, followed by the [facility] and Dr. Mariano Campo Allergies Allergy/AdvReac Type Severity Reaction Status Date / Time tizanidine AdvReac Intermediate "Woozy" Verified 11/21/23 22:43 feeling Home Medications Medication Instructions Recorded Confirmed Type apixaban 5 mg tablet (Eliquis) 5 mg PO BID 06/25/20 11/21/23 History atorvastatin 40 mg tablet 40 mg PO QAM 06/25/20 11/21/23 History liraglutide 0.6 mg/0.1 mL (18 mg/3 1.2 mg subcut DAILY 09/30/21 11/21/23 History mL) subcutaneous pen injector (Victoza 2-Jed) ondansetron 8 mg disintegrating 8 mg PO Q8H PRN Nausea 09/30/21 11/21/23 History tablet prochlorperazine maleate 10 mg 10 mg PO Q6H PRN nausea 09/30/21 11/21/23 History tablet polyethylene glycol 3350 17 gram 17 g PO DAILY PRN constipation #15 10/05/21 11/21/23 Rx oral powder packet (Miralax) ea nitroglycerin 0.4 mg sublingual 0.4 mg sublingual .Q 5 MIN PRN 11/01/21 11/21/23 History tablet Chest Pain omega-3 fatty acids 1,000 mg 1,000 mg PO BID 04/15/22 11/21/23 History capsule docusate sodium 100 mg capsule 100 mg PO BID PRN Constipation 04/22/22 11/21/23 History (Colace) gabapentin 300 mg capsule 300 mg PO BID 04/22/22 11/21/23 History mecobalamin (vitamin B12) 1,000 1,000 mcg PO QAM 04/22/22 11/21/23 History mcg chewable tablet (B12 Active) morphine 15 mg immediate release 15 mg PO Q4H PRN Pain 04/22/22 11/21/23 History tablet digoxin 125 mcg (0.125 mg) tablet 125 mcg PO Q2D 11/04/22 11/21/23 History lenalidomide 10 mg capsule 10 mg PO DIRECTED 11/04/22 11/21/23 History (Revlimid) potassium chloride 20 mEq 20 meq PO BID 11/04/22 11/21/23 History tablet,extended release(part/cryst) sennosides 8.6 mg tablet (senna) 17.2 mg PO HS PRN Constipation 11/04/22 11/21/23 History insulin aspart U-100 100 unit/mL 15 unit subcut TIDM 12/31/22 11/21/23 History (3 mL) subcutaneous pen (Novolog FlexPen U-100 Insulin aspart) insulin glargine 100 unit/mL (3 45 unit subcut QPM 12/31/22 11/21/23 History mL) subcutaneous pen (Basaglar KwikPen U-100 Insulin) dexamethasone 4 mg tablet 20 mg PO WK 06/25/23 11/21/23 History mirtazapine 30 mg tablet 30 mg PO HS 06/25/23 11/21/23 History omeprazole 20 mg capsule,delayed 20 mg PO QAM 06/25/23 11/21/23 History release linaclotide 145 mcg capsule 145 mcg PO DAILY 07/28/23 11/21/23 History (Linzess) furosemide 20 mg tablet (Lasix) 20 mg PO UD #30 tabs 07/29/23 11/21/23 Rx metoprolol succinate 25 mg 25 mg PO QAM 08/20/23 11/21/23 History tablet,extended release 24 hr metoprolol succinate 50 mg 50 mg PO BID 08/20/23 11/21/23 History tablet,extended release 24 hr (Toprol XL) calcium carbonate 600 mg-vitamin 1 tab PO DAILY 11/16/23 11/21/23 History D3 10 mcg (400 unit) tablet (Calcium 600 + D(3)) doxycycline hyclate 100 mg tablet 100 mg PO bid #28 tabs 11/18/23 11/21/23 Rx Patient History Medical History COPD (chronic obstructive pulmonary disease) CKD (chronic kidney disease) stage 3, GFR 30-59 ml/min Multiple myeloma f/u oncology at [facility] Congestive heart failure Immunocompromised Interstitial lung disease PAF (paroxysmal atrial fibrillation) pacemaker placed in 2019 Diabetic ulcer of left foot Chronic deep vein thrombosis (DVT) LLE Diarrhea Pneumonia [facility] admission 08/2023 NSTEMI (non-ST elevated myocardial infarction) Per remote records History of pilonidal cyst Pacemaker Implanted 2019 History of melanoma in situ 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 Lane/[facility] Type 2 diabetes mellitus IDDM Surgical History Hallux rigidus of left foot multiple surgeries Hx of colonoscopy S/P surgical removal of pilonidal cyst Hx of melanoma excision many years ago; right taoist Status post total hip replacement, left History of bone marrow biopsy early 2022 History of cataract surgery R/L S/P CABG x 4 Age 48 S/P Mohs surgery for basal cell carcinoma Family History Mother Lymphoma Social History Smoking Status: Former smoker Tobacco Type: Cigarettes Second Hand Exposure: Yes ( smokes); Do You Dip or Chew Tobacco: No; Hx Alcohol Use: Yes Alcohol type: beer Alcohol Intake Frequency: Monthly or Less Hx Substance Use: Yes Prescribed Medications: Marijuana Last Used Substance Other:: remote hx in 1960's; medical card-does not use Substance Use Type Other:: has a marijuana card but he states he "... doesnt use it" Preferred Language: Ecuadorean Communication Ability: Effective Visual Impairment: No Limitations Hearing Ability: Normal Performance Improvement Analyst Required: No Beliefs That Will Affect Care: None marital status: Current Living Situation: Spouse Current Living Situation Comment: home current occupational status: retired How many Children do You have: 1 How many Children do You have Comment: Magi lives in [facility]. able to assist with care as needed. Feels Safe at Home: Yes Diet: regular Diet Comment: Trying to gain weight caffeine: No during the past year weight has: decreased > 10 lbs Assistive Devices: Cane Review of Systems Review of Systems: All systems reviewed & are unremarkable except as noted in Subjective Physical Exam Constitutional: well nourished; no acute distress Respiratory: no respiratory distress, no labored breathing and no retractions Cardiovascular: Rate/Rhythm: regular rate and regular rhythm Heart Sounds: normal S1, normal S2 and + murmur (1/6 holosystolic murmur heard best at the apex) Vessels: radial pulses present; no JVD and no carotid bruit Extremities: no edema Gastrointestinal (Abdomen): Inspection/Auscultation: normal bowel sounds; abdomen not distended Percussion/Palpation: abdomen soft; abdomen nontender, no guarding and abdomen not rigid Neurologic: CN's II-XI intact bilaterally and moves all extremities; no focal motor deficits Results & Data Vital Signs (Past 12 Hours) Vital Signs Temp Pulse Pulse Resp BP Pulse Ox O2 Del Method 11/23/23 07:46 36.9 C 65 18 123/63 98 Room Air 11/23/23 05:56 63 11/23/23 03:46 36.9 C 66 18 101/59 L 94 Room Air 11/22/23 23:55 37.0 C 76 18 118/62 96 Room Air 11/22/23 22:34 99 H Laboratory Results Cardiac Enzymes 11/23/23 Range/Units 06:35 AST 9 L (13-39) U/L CBC 11/23/23 Range/Units 06:35 WBC 3.12 L (4.8-10.8) K/ul RBC 2.62 L (4.70-6.10) M/uL Hgb 8.1 L (14.0-18.0) g/dl Hct 24.9 L (42.0-52.0) % Plt Count 87 L (130-400) K/uL Neut # (Auto) 1.80 (1.40-6.50) K/uL Lymph # (Auto) 0.65 L (1.20-3.40) K/uL [place] # (Auto) 0.57 (0.11-0.59) K/uL Eos # (Auto) 0.07 (0.00-0.50) K/uL Baso # (Auto) 0.01 (0.00-0.20) K/uL Comprehensive Metabolic Panel 11/23/23 Range/Units 06:35 Sodium 143 (136-145) mmol/L Potassium 3.7 (3.5-5.1) mmol/L Chloride 112 H (98-107) mmol/L Carbon Dioxide 24 (21-32) mmol/L BUN 13 (6-23) mg/dl Creatinine 0.92 (0.6-1.4) mg/dl Glucose 105 H (70-99(Fasting)) mg/dl Calcium 7.7 L (8.6-10.3) mg/dl AST 9 L (13-39) U/L ALT 9 (7-52) U/L Alkaline Phosphatase 42 (34-104) U/L Total Protein 5.6 L (6.0-8.3) gm/dl Albumin 3.5 (3.4-5.0) gm/dl Intake and Output 11/22/23 11/23/23 11/23/23 22:59 06:59 14:59 Intake Total 1100 / 1830 365 / 1830 1000 / 1000 Output Total 850 / 2325 825 / 2325 Balance 250 / -495 -460 / -495 1000 / 1000 Intake: IV 1100 / 1830 365 / 1830 1000 / 1000 Piperacillin/Tazobactam 4.5 gm 100 / 300 100 / 300 In Dextrose 5% Mini-B 100 ml @ 25 mls/hr IV Q8H [facility]A Rx#: [id number] Sodium Chloride 0.9% 1,000 ml @ 1000 / 1000 1000 / 1000 75 mls/hr IV .[id number] [facility] Rx#: [id number] Vancomycin HCl 750 mg In Sodium 265 / 530 Chloride 0.9% 250 ml @ 200 mls /hr IV Q12H [facility] Rx#:[id number] Output: Urine 850 / 2325 825 / 2325 Other: Other Intake Source NPO Weight 72 kg Weight Measurement Method Built in [facility] (3) CAD (coronary artery disease) Coronary Disease-Associated Artery/Lesion type: [place] artery [place] vs. transplanted heart: [place] heart Associated angina: with stable angina Qualified Code(s): I25.118 - Atherosclerotic heart disease of [place] coronary artery with other forms of angina pectoris
[2023-11-23] MEDS: HEPARIN SOD (PORCINE) 1000 UNIT/ML IV ONE (10:26)
[2023-11-23] MEDS: HEPARIN SODIUM/DEXTROSE 25,000 UNITS/500 ML BAG IV SCH (10:27)
[2023-11-23] MEDS: Heparin IV Adult Wt-Based Standard w/ INITIAL Bolus Protocol IV STA (10:42)
[2023-11-23 11:05] LABS: INR 1.1 (0.9-1.1); Partial Thromboplastin Time 27 Seconds (21-31); Prothrombin Time 11.6 Seconds (9.0-12.0)
[2023-11-23] MEDS: VANCOMYCIN HCL 1,000 MG in SODIUM CHLORIDE 0.9% 250 ML IV SCH (11:06)
--- NOTE | 2023-11-23 12:41 | Pharmacy Report ---
Pharmacy PK ABX Note - Date of Service November 23, 2023 - Assessment and Plan Assessment * 78 year old M receiving VANCOMCYIN + ZOSYN for treatment of diabetic foot, L 2nd toe necrosis. * Pertinent microbiologic data includes: 11/16/23 L 2nd toe cx growing MSSA; pt has h/o of pseudomonas aeruginosa in prior foot cultures (however organism was pansensitive) * Per podiatry note: patient will require a left second toe amputation (not urgent/emergent) * Consider de-escalation of current regimen based on culture data. Zosyn monotherapy would cover both identified organisms. Plan Vancomycin * Current regimen: 750 mg IV every 12 hours * Random level obtained 11/23/23 resulted as 12.7 mcg/mL. This is predicted to achieve target AUC/KANDI of 400-600 mg/L.hr * Change to 1000 mg IV every 12 hours * Will repeat level in the next 48-72 hours if therapy is continued and/or change in patient clinical status * Predicted AUC at steady state: 509 mg/L.hr Zosyn * 4.5 g IV q8h - appropriately dosed based on indication/renal function Pharmacy will continue to follow and will adjust dose/frequency as necessary. Thank you. Pharmacy has transitioned to AUC monitoring for vancomycin. AUC/KANDI is the preferred PK/PD target and is associated with decreased risk of nephrotoxicity compared to traditional trough targets.
--- NOTE | 2023-11-23 15:45 | Hospitalist Progress Note ---
Date of Service November 23, 2023 Assessment & Plan (1) Ischemic necrosis of toe: Plan: 78-year-old male with past medical history significant for type 2 diabetes, hyperlipidemia, peripheral neuropathy, COPD, interstitial lung disease, paroxysmal atrial fibrillation, chronic systolic and diastolic CHF, tachybradycardia syndrome s/p pacemaker, history of CAD s/p CABG, GERD, CKD stage III, multiple myeloma on chemo, presents with necrotic left second toe. Patient underwent amputation of the distal phalanx of left second toe on 10/22/2023 secondary to osteomyelitis. And when sutures were removed on Nov 08 2023 wound dehiscence was noted. Following with the wound care. Has a follow- up appoint with podiatry on November 22, 2023. Also seen by vascular medicine on October 14, 2023 prior to surgery. 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 Gangrene of left second toe Past history as above; amputation of distal phalanx of left second toe on October 2023 secondary to osteomyelitis Dark discoloration of left second toe consistent with gangrene Continue on IV antibiotics with vancomycin and Zosyn Discussed with podiatry; recommended cardiology evaluation and vascular evaluation prior to intervention. Possible amputation on Discussed with Dr. Campo from vascular medicine; no intervention on the popliteal artery for the time being; okay to proceed to surgery. Discussed with Dr. Lane from cardiology; he recommended heparin bridging for atrial fibrillation. Continue beta-annika uninterrupted. No additional cardiac workup prior to procedure. Chronic systolic and diastolic CHF Echo from June 2023 EF 35 to 40%, moderate mitral regurgitation, moderate aortic valve sclerosis. Moderate dilated left atrium Currently on Lasix 3 times a week which will be continued Will monitor for volume overload Type 2 diabetes Placed on Lantus 20 units daily as patient is n.p.o. Sliding scale Will monitor Paroxysmal atrial fibrillation Tachybradycardia syndrome s/p pacemaker On digoxin, Toprol-XL Holding Eliquis for procedures. Currently on heparin drip. Heparin drips needs to be on hold 6 hours prior to surgery. Hypertension On metoprolol succinate Monitor Hyperlipidemia On statin History of CAD s/p CABG On beta-annika and statin Currently holding Eliquis CKD stage III Present creatinine 1.05 Avoid nephrotoxic agent Multiple myeloma Maintenance Chemo was recently restarted Will hold Revlimid for now Follow-up with heme-onc Patient has follow-up with heme oncology on November [address] Garcia informed regarding the hospitalization. Awaiting reply History of COPD Interstitial lung disease Will monitor DVT prophylaxis Heparin drip Disposition Med/telemetry Full code Time spent evaluating patient, direct bedside care, chart review, placing orders, interpretation of diagnostic studies, discussion with consultants, patient, and family members, as well as other required patient management activities is 50-minute Please note the above document was generated using voice recognition software. It may contain grammatical, syntax or spelling errors. Any formal questions or concerns about the content, text or information contained within the body of this dictation should be directly addressed to the provider for clarification Admission and Anticipated Discharge Date Admission Date: November 22, 2023 Subjective Patient seen and examined at bedside. He is comfortably lying on the bed; not in distress. Denies fever, chills, chest pain, shortness of breath or abdominal pain. Review of Systems Review of Systems: All systems reviewed & are unremarkable except as noted in Subjective Physical Exam Physical Exam: Constitutional: WD/WN, vitals as above, NAD, sitting up in bed, pleasant, conversing easily Respiratory: normal respiratory effort, lungs clear to auscultation, no wheeze, rales, rhonchi. Normal insp/exp effort, no accessory muscle use Cardiovascular: RRR, no murmur, no edema Vessels: no JVD or carotid bruit Chest: normal inspection of chest Abdomen: normal bowel sounds, soft, nontender, no hepatosplenomegaly Musculoskeletal: Gangrene present in left second toe with mild drainage and erythema surrounding the foot. Skin: no rashes, warm and dry normal turgor Neurologic: PERRL, EOMI, accommodation nl, no face palsy, no dysarthria CN's II- XI intact bilaterally and moves all extremities Psychiatric: A+Ox3, euthymic affect Results & Data Results & Data Vital Signs (Past 12 Hours) Vital Signs Temp Pulse Pulse Resp BP Pulse Ox O2 Del Method 11/23/23 15:37 37.0 C 77 16 98/53 L 96 Room Air 11/23/23 14:00 80 11/23/23 11:17 36.7 C 66 18 115/62 95 Room Air 11/23/23 07:46 36.9 C 65 18 123/63 98 Room Air 11/23/23 05:56 63 11/23/23 03:46 36.9 C 66 18 101/59 L 94 Room Air
[2023-11-23] MEDS: POLYETHYLENE (MIRALAX) 17 GM PACK PO SCH (16:35)
[2023-11-23] MEDS: MAGNESIUM HYDROXIDE SUSP 30 ML UDC PO ONE (16:35)
[2023-11-23 17:41] LABS: ANTI-Xa, UFH(UnfractionatedHep 0.86 IU/ml (0.3-0.7)
--- NOTE | 2023-11-23 18:04 | Vascular Medicine Consultation ---
Date of Consultation November 23, 2023 Assessment & Plan (1) PVD (peripheral vascular disease): 2. CAD post remote CABG 3. ICM/HFrEF EF 35 to 40% 4. Paroxysmal atrial fibrillation 5. Type 2 diabetes 6. Multiple myelomaactive chemotherapy 7. tachybradycardia syndrome post pacemaker 8. History of COPD/ILD Patient seen today in the setting of gangrenous left second toe following recent partial amputation. Patient has known longstanding left distal popliteal artery occlusion which has been managed conservatively for years. Over that time has had recurrent left diabetic foot ulcers and numerous surgical procedures to left foot. Has previously not had issues healing surgical wounds. Most recent arterial duplex 01/2023 showed distal three-vessel runoff with borderline toe pressures. Today foot is warm and capillary refill only minimally reduced in surrounding toes. Will repeat arterial duplex to confirm no significant changes in left arterial system. Assuming unchanged suspect arterial perfusion should be adequate to heal surgical wound from planned second toe amputation. We did discuss possible repeat angiogram. Distal popliteal occlusion involves trifurcation with tibial vessels and would be complex to intervene upon endovascularly but may have options from a retrograde approach. For now patient would prefer to avoid additional vascular procedures unless continued issues post toe amputation. Will follow-up post ultrasound. History of Present Illness Attending Physician: Juan Brooks MD History of Present Illness Mr. Hernandez is a pleasant 78 year old man with type 2 diabetes and lower extremity PAD seen today in the setting of gangrenous left second toe following recent partial distal amputation. Medical history significant for CAD status post CABG, ischemic cardiomyopathy, paroxysmal atrial fibrillation, tachy/noman syndrome status post pacemaker, history of tobacco use and multiple myeloma being treated with chemotherapy. Has followed with [facility] vascular surgery. Was previously seen by [facility] vascular medicine 10/14/2023. He has a history of recurrent diabetic foot ulcers which have all previously healed. Has also had at least 7 surgeries to his left foot over the years (bunion, shaving, fusion, debridement) with podiatry. Recently has been following with [facility] wound care and [facility] [place] [facility] podiatry. Underwent distal phalanx second toe amputation with Dr. Jeromy Orellana of 10/22/2023. Sutures removed 11/08/2023 and some degree of wound dehiscence noted, had also been scrubbing area. Presented to [facility] ED 11/21/2023 after toe noted to be black in color. No fevers or chills. No significant pain. Been seen again by podiatry and second toe amputation and will plan for later this week. He has a history of PAD and is followed by [facility] vascular surgery.In 2014 underwent angiogram revealing occluded popliteal artery, no endovascular intervention done. Recommended he would need bypass but then ulcer healed and no vascular intervention performed. Repeat arterial duplex January 2023 in the setting of left great toe and plantar foot ulcers. Showed left mid, distal 100% popliteal artery occlusion, monophasic waveforms distally. Left digit pressure 45 mmHg. Vascular surgery recommended conservative therapy as wound was healing. He has not seen them since. Allergies Allergy/AdvReac Type Severity Reaction Status Date / Time tizanidine AdvReac Intermediate "Woozy" Verified 11/21/23 22:43 feeling Home Medications Medication Instructions Recorded Confirmed Type apixaban 5 mg tablet (Eliquis) 5 mg PO BID 06/25/20 11/21/23 History atorvastatin 40 mg tablet 40 mg PO QAM 06/25/20 11/21/23 History liraglutide 0.6 mg/0.1 mL (18 mg/3 1.2 mg subcut DAILY 09/30/21 11/21/23 History mL) subcutaneous pen injector (Victoza 2-Jed) ondansetron 8 mg disintegrating 8 mg PO Q8H PRN Nausea 09/30/21 11/21/23 History tablet prochlorperazine maleate 10 mg 10 mg PO Q6H PRN nausea 09/30/21 11/21/23 History tablet polyethylene glycol 3350 17 gram 17 g PO DAILY PRN constipation #15 10/05/21 11/21/23 Rx oral powder packet (Miralax) ea nitroglycerin 0.4 mg sublingual 0.4 mg sublingual .Q 5 MIN PRN 11/01/21 11/21/23 History tablet Chest Pain omega-3 fatty acids 1,000 mg 1,000 mg PO BID 04/15/22 11/21/23 History capsule docusate sodium 100 mg capsule 100 mg PO BID PRN Constipation 04/22/22 11/21/23 History (Colace) gabapentin 300 mg capsule 300 mg PO BID 04/22/22 11/21/23 History mecobalamin (vitamin B12) 1,000 1,000 mcg PO QAM 04/22/22 11/21/23 History mcg chewable tablet (B12 Active) morphine 15 mg immediate release 15 mg PO Q4H PRN Pain 04/22/22 11/21/23 History tablet digoxin 125 mcg (0.125 mg) tablet 125 mcg PO Q2D 11/04/22 11/21/23 History lenalidomide 10 mg capsule 10 mg PO DIRECTED 11/04/22 11/21/23 History (Revlimid) potassium chloride 20 mEq 20 meq PO BID 11/04/22 11/21/23 History tablet,extended release(part/cryst) sennosides 8.6 mg tablet (senna) 17.2 mg PO HS PRN Constipation 11/04/22 11/21/23 History insulin aspart U-100 100 unit/mL 15 unit subcut TIDM 12/31/22 11/21/23 History (3 mL) subcutaneous pen (Novolog FlexPen U-100 Insulin aspart) insulin glargine 100 unit/mL (3 45 unit subcut QPM 12/31/22 11/21/23 History mL) subcutaneous pen (Basaglar KwikPen U-100 Insulin) dexamethasone 4 mg tablet 20 mg PO WK 06/25/23 11/21/23 History mirtazapine 30 mg tablet 30 mg PO HS 06/25/23 11/21/23 History omeprazole 20 mg capsule,delayed 20 mg PO QAM 06/25/23 11/21/23 History release linaclotide 145 mcg capsule 145 mcg PO DAILY 07/28/23 11/21/23 History (Linzess) furosemide 20 mg tablet (Lasix) 20 mg PO UD #30 tabs 07/29/23 11/21/23 Rx metoprolol succinate 25 mg 25 mg PO QAM 08/20/23 11/21/23 History tablet,extended release 24 hr metoprolol succinate 50 mg 50 mg PO BID 08/20/23 11/21/23 History tablet,extended release 24 hr (Toprol XL) calcium carbonate 600 mg-vitamin 1 tab PO DAILY 11/16/23 11/21/23 History D3 10 mcg (400 unit) tablet (Calcium 600 + D(3)) doxycycline hyclate 100 mg tablet 100 mg PO bid #28 tabs 11/18/23 11/21/23 Rx Patient History Medical History COPD (chronic obstructive pulmonary disease) CKD (chronic kidney disease) stage 3, GFR 30-59 ml/min Multiple myeloma f/u oncology at [facility] Congestive heart failure Immunocompromised Interstitial lung disease PAF (paroxysmal atrial fibrillation) pacemaker placed in 2019 Diabetic ulcer of left foot Chronic deep vein thrombosis (DVT) LLE Diarrhea Pneumonia [facility] admission 08/2023 NSTEMI (non-ST elevated myocardial infarction) Per remote records History of pilonidal cyst Pacemaker Implanted 2019 History of melanoma in situ right episcopalian HLD (hyperlipidemia) CAD (coronary artery disease) s/p CABG x4 (age 48) Follow[address] with Dr. Lane/[facility] Type 2 diabetes mellitus IDDM Surgical History Hallux rigidus of left foot multiple surgeries Hx of colonoscopy S/P surgical removal of pilonidal cyst Hx of melanoma excision many years ago; right episcopalian Status post total hip replacement, left History of bone marrow biopsy early 2022 History of cataract surgery R/L S/P CABG x 4 Age 48 S/P Mohs surgery for basal cell carcinoma Family History Mother Lymphoma Social History Smoking Status: Former smoker Tobacco Type: Cigarettes Second Hand Exposure: Yes ( smokes); Do You Dip or Chew Tobacco: No; Hx Alcohol Use: Yes Alcohol type: beer Alcohol Intake Frequency: Monthly or Less Hx Substance Use: Yes Prescribed Medications: Marijuana Last Used Substance Other:: remote hx in s; medical card-does not use Substance Use Type Other:: has a marijuana card but he states he "... 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 able to assist with care as needed. Feels Safe at Home: Yes Diet: regular Diet Comment: Trying to gain weight caffeine: No during the past year weight has: decreased > 10 lbs Assistive Devices: None Review of Systems Review of Systems: All systems reviewed & are unremarkable except as noted in HPI & below Physical Exam Physical Exam: General: No acute distress, comfortable. HEENT: Head is normal. General: Comfortable, no acute distress Neck: Normal carotid upstrokes, no bruits. No JVD. Lungs: Clear to auscultation bilaterally, no rhonchi or wheezes Cardiac: Regular rate and rhythm, 1 out of 6 holosystolic murmur Abdomen: Soft, nontender Psych: Alert orient x3, normal affect and mood Extremities/vascular: --No edema --Left distal 2nd toe ulcer gangrenous, no surrounding erythema, mild drainage on plantar aspect -- Nonpalpable pedal pulses --Left foot is warm, capillary mildly re duced in first and third toes. Results & Data Vital Signs (Past 12 Hours) Vital Signs Temp Pulse Pulse Resp BP Pulse Ox O2 Del Method 11/23/23 15:37 98.6 F 77 16 98/53 L 96 Room Air 11/23/23 14:00 80 11/23/23 11:17 98.1 F 66 18 115/62 95 Room Air 11/23/23 07:46 98.4 F 65 18 123/63 98 Room Air 11/23/23 05:56 63 PG Care Time/CCT Total # of Minutes Spent Total Time Spent with Patient: Total time spent is greater than 50% in coordination of care (as documented) at patient's floor/unit and/or counseling patient: Coding Level of Care Code 67549 INT INP/OBS CARE 2/55MIN Diagnoses PVD (peripheral vascular disease) I73.9
[2023-11-23] MEDS: MoRPHine SULFATE IR 15 MG TAB (IMMEDIATE RELEASE) PO PRN (21:16)
--- NOTE | 2023-11-24 07:41 | Ultrasound Report ---
US arterial duplex LE LT CLINICAL HISTORY: Diabetic foot ulcer, toe pressure if possible COMPARISON STUDY: Left leg arterial Doppler study 04/15/2018. FINDINGS: The right ankle-brachial index measured 1.1 and the left ankle-brachial index measures 0.65 . This is similar to the prior study. Toe pressures were unable to be obtained by the technologist. S cattered calcified plaque again noted within the left lower extremity arterial system. There are norm al velocities and biphasic to triphasic waveforms seen within the left common femoral and left superf icial femoral arteries. Normal velocities and waveforms within the proximal left popliteal artery. Th e distal left popliteal artery is completely occluded. Distal to this area of occlusion there are mon ophasic normal to low velocity waveforms seen within the left calf arteries and dorsalis pedis artery . IMPRESSION: 1. Focal area of occlusion seen within the distal left popliteal artery. 2. This likely accounts for the monophasic normal to low velocity waveforms within the left calf jose m hilary and left dorsalis pedis artery. ACT 112: Negative or not required by law. Electronically signed by: Sloan Dang M.D. 11/24/2023 7:39 AM
[2023-11-24 08:21] LABS: Basophils # (auto) 0.01 K/uL (0.00-0.20); Basophils % (auto) 0.3 %; Eosinophils # (auto) 0.11 K/uL (0.00-0.50); Eosinophils % (auto) 2.8 %; Hematocrit (blood only) 25.9 % (42.0-52.0); Hemoglobin 8.3 g/dl (14.0-18.0); Immature Granulocytes # (auto) 0.03 K/uL (0.01-0.20); Immature Granulocytes % (auto) 0.8 %; Lymphocytes # (auto) 0.96 K/uL (1.20-3.40); Lymphocytes % (auto) 24.2 %; Mean Corpuscular Volume 96.6 fL (80.0-100.0); Mean Platelet Volume 11.2 fL (9.4-12.4); Monocytes # (auto) 0.62 K/uL (0.11-0.59); Monocytes % (auto) 15.7 %; Neutrophils # (auto) 2.23 K/uL (1.40-6.50); Neutrophils % (auto) 56.2 %; Platelet Count 80 K/uL (130-400); RDW Coefficient of Variation 16.6 % (11.5-14.5); RDW Standard Deviation 57.9 fL (36.4-46.3); Red Blood Count 2.68 M/uL (4.70-6.10); White Blood Count 3.96 K/ul (4.8-10.8)
[2023-11-24 08:33] LABS: Albumin Globulin Ratio 1.5 (0.9-2); Albumin Level 3.5 gm/dl (3.4-5.0); BUN Creatinine Ratio 12.5 (10-20); Bilirubin,Total 0.5 mg/dl (0.2-1.0); Calcium 7.8 mg/dl (8.6-10.3); Creatinine Clr Calc Pharmacy 65.6 ml/min; Est GFR (Non-African American) 75.9 ml/min; Globulin 2.3 gm/dl (2.5-4.0); Potassium 4.2 mmol/L (3.5-5.1); Total Protein 5.8 gm/dl (6.0-8.3)
[2023-11-24 08:44] LABS: ANTI-Xa, UFH(UnfractionatedHep 0.55 IU/ml (0.3-0.7)
--- NOTE | 2023-11-24 11:16 | Anesthesiology Consultation ---
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 History Surgery Operation Date: 11/25/23 10:20 Proposed Procedures p Left 2nd Toe Amputation - Bao Orellana DPM Height/Weight Height: 5 ft 11 in Weight: 72 kg Allergies Allergy/AdvReac Type Severity Reaction Status Date / Time tizanidine AdvReac Intermediate "Woozy" Verified 11/21/23 22:43 feeling Medications Home Medications Medication Instructions Recorded Confirmed Last Taken apixaban 5 mg tablet (Eliquis) 5 mg PO BID 06/25/20 11/21/23 11/21/23 atorvastatin 40 mg tablet 40 mg PO QAM 06/25/20 11/21/23 11/21/23 liraglutide 0.6 mg/0.1 mL (18 mg/3 1.2 mg subcut DAILY 09/30/21 11/21/23 11/21/23 mL) subcutaneous pen injector ([employer]osCool 2-Jed) ondansetron 8 mg disintegrating 8 mg PO Q8H PRN Nausea 09/30/21 11/21/23 10/21/23 20:00 tablet prochlorperazine maleate 10 mg 10 mg PO Q6H PRN nausea 09/30/21 11/21/23 Unknown tablet polyethylene glycol 3350 17 gram 17 g PO DAILY PRN constipation #15 10/05/21 11/21/23 10/08/21 oral powder packet (Miralax) ea nitroglycerin 0.4 mg sublingual 0.4 mg sublingual .Q 5 MIN PRN 11/01/21 11/21/23 Unknown tablet Chest Pain omega-3 fatty acids 1,000 mg 1,000 mg PO BID 04/15/22 11/21/23 11/21/23 capsule docusate sodium 100 mg capsule 100 mg PO BID PRN Constipation 04/22/22 11/21/23 10/20/23 (Colace) gabapentin 300 mg capsule 300 mg PO BID 04/22/22 11/21/23 11/21/23 mecobalamin (vitamin B12) 1,000 1,000 mcg PO QAM 04/22/22 11/21/23 11/21/23 mcg chewable tablet (B12 Active) morphine 15 mg immediate release 15 mg PO Q4H PRN Pain 04/22/22 11/21/2324 20:00 tablet digoxin 125 mcg (0.125 mg) tablet 125 mcg PO Q2D 11/04/22 11/21/23 07/28/23 lenalidomide 10 mg capsule 10 mg PO DIRECTED 11/04/22 11/21/23 Unknown (Revlimid) potassium chloride 20 mEq 20 meq PO BID 11/04/22 11/21/23 11/21/23 tablet,extended release(part/cryst) sennosides 8.6 mg tablet (senna) 17.2 mg PO HS PRN Constipation 11/04/22 11/21/23 Unknown insulin aspart U-100 100 unit/mL 15 unit subcut TIDM 12/31/22 11/21/23 11/21/23 (3 mL) subcutaneous pen (Novolog FlexPen U-100 Insulin aspart) insulin glargine 100 unit/mL (3 45 unit subcut QPM 12/31/22 11/21/23 11/21/23 mL) subcutaneous pen (Basaglar KwikPen U-100 Insulin) dexamethasone 4 mg tablet 20 mg PO WK 06/25/23 11/21/23 06/22/23 mirtazapine 30 mg tablet 30 mg PO HS 06/25/23 11/21/23 11/21/23 omeprazole 20 mg capsule,delayed 20 mg PO QAM 06/25/23 11/21/23 11/21/23 release linaclotide 145 mcg capsule 145 mcg PO DAILY 07/28/23 11/21/23 11/21/23 (Linzess) furosemide 20 mg tablet (Lasix) 20 mg PO UD #30 tabs 07/29/23 11/21/23 11/21/23 metoprolol succinate 25 mg 25 mg PO QAM 08/20/23 11/21/23 11/21/23 tablet,extended release 24 hr metoprolol succinate 50 mg 50 mg PO BID 08/20/23 11/21/23 11/21/23 tablet,extended release 24 hr (Toprol XL) calcium carbonate 600 mg-vitamin 1 tab PO DAILY 11/16/23 11/21/23 Unknown D3 10 mcg (400 unit) tablet (Calcium 600 + D(3)) doxycycline hyclate 100 mg tablet 100 mg PO bid #28 tabs 11/18/23 11/21/23 11/21/23 Active Medications Generic Name Dose Route Start Last Admin Trade Name Patience PRN Reason Stop Dose Admin Atorvastatin Calcium 40 mg 11/22/23 09:00 11/24/23 09:35 Atorvastatin 40 Mg Tab PO 12/22/23 08:59 40 mg QAM [facility] Administration Calcium/Vitamin D 1 tab 11/22/23 09:00 11/24/23 09:36 Calcium 600mg + Vit D 400 Iu Tab PO 12/22/23 08:59 1 tab DAILY [facility] Administration Cyanocobalamin 1,000 mcg 11/22/23 09:00 11/24/23 09:37 Cyanocobalamin (B-12) 500 Mcg Tablet PO 12/22/23 08:59 1,000 mcg QAM [facility] Administration Digoxin 0.125 mg 11/22/23 16:00 11/22/23 17:53 Digoxin 0.125 Mg Tab PO 12/22/23 15:59 0.125 mg Q2D@1600 [facility] Administration Furosemide 20 mg 11/22/23 09:00 11/24/23 09:38 Furosemide 20 Mg Tab PO 12/22/23 08:59 20 mg MoWeFr@0900 [facility] Administration Gabapentin 300 mg 11/22/23 09:00 11/24/23 09:38 Gabapentin 300 Mg Cap PO 12/22/23 08:59 300 mg BID [facility] Administration Piperacillin Sod/Tazobactam 100 mls @ 25 mls/hr 11/22/23 04:00 11/24/23 08:09 Sod 4.5 gm/ Dextrose IV 11/29/23 03:59 Infused Q8H [facility] Infusion Protocol Heparin Sodium/Dextrose 25,000 units in 500 mls @ 23 mls/hr 11/23/23 09:30 11/24/23 09:33 Heparin Sodium/Dextrose IV 12/23/23 09:29 1,150 units/hr .[id number] [facility] 23 mls/hr Titration Protocol 1,150 UNITS/HR Vancomycin HCl 1,000 mg/ 270 mls @ 200 mls/hr 11/23/23 10:00 11/24/23 10:14 Sodium Chloride IV 11/30/23 09:59 200 mls/hr Q12H [facility] Administration Insulin Aspart 0 units 11/22/23 07:30 11/24/23 10:00 Insulin Aspart Per Unit Charge SC 12/22/23 07:29 8 units ACHS [facility] Administration Insulin Glargine 20 units 11/22/23 09:00 11/24/23 10:03 Lantus Per Unit Charge SQ 12/22/23 08:59 20 units DAILY [facility] Administration Linaclotide 145 mcg 11/22/23 09:00 11/24/23 09:39 Linaclotide 145 Mcg Capsule PO 12/22/23 08:59 145 mcg DAILY [facility] Administration Metoprolol Succinate 50 mg 11/22/23 21:00 11/23/23 19:38 Metoprolol Succ 50mg Ext Rel Tab PO 12/22/23 20:59 50 mg PM [facility] Administration Metoprolol Succinate 75 mg 11/22/23 09:00 11/24/23 09:40 Metoprolol Succ 25mg Ext Rel Tab PO 12/22/23 08:59 75 mg QAM [facility] Administration Mirtazapine 30 mg 11/22/23 21:00 11/23/23 20:43 Mirtazapine Tab 15 Mg Tab PO 12/22/23 20:59 30 mg HS [facility] Administration Morphine Sulfate 15 mg 11/23/23 20:57 11/23/23 21:16 Morphine Sulfate Ir 15 Mg Tab (Immediate Release) PO 12/07/23 20:56 15 mg HS PRN Administration Pain Pantoprazole Sodium 40 mg 11/22/23 09:00 11/24/23 09:42 Pantoprazole 40 Mg Tab PO 12/22/23 08:59 40 mg QAM [facility] Administration Polyethylene Glycol 17 gm 11/23/23 16:00 11/24/23 09:43 Polyethylene (Miralax) 17 Gm Pack PO 12/23/23 15:59 17 gm DAILY [facility] Administration Potassium Chloride 20 meq 11/22/23 09:00 11/24/23 09:42 Potassium Chloride Crtab 20 Meq Tabcr PO 12/22/23 08:59 20 meq BID [facility] Administration Past Medical History Medical History COPD (chronic obstructive pulmonary disease) CKD (chronic kidney disease) stage 3, GFR 30-59 ml/min Multiple myeloma f/u oncology at [facility] Congestive heart failure Immunocompromised Interstitial lung disease PAF (paroxysmal atrial fibrillation) pacemaker placed in 2019 Diabetic ulcer of left foot Chronic deep vein thrombosis (DVT) LLE Diarrhea Pneumonia [facility] admission 08/2023 NSTEMI (non-ST elevated myocardial infarction) Per remote records History of pilonidal cyst Pacemaker Implanted 2019 History of melanoma in situ right baptism HLD (hyperlipidemia) CAD (coronary artery disease) s/p CABG x4 (age 48) Follows with Dr. Lane/ANA Type 2 diabetes mellitus IDDM Past Family History Family History Mother Lymphoma Past Surgical History Surgical History Hallux rigidus of left foot multiple surgeries Hx of colonoscopy S/P surgical removal of pilonidal cyst Hx of melanoma excision many years ago; right baptism Status post total hip replacement, left History of bone marrow biopsy early 2022 History of cataract surgery R/L S/P CABG x 4 Age 48 S/P Mohs surgery for basal cell carcinoma Social History Smoking Status: Former smoker tobacco type: cigars Do You Dip or Chew Tobacco: No Hx Alcohol Use: Yes Alcohol type: beer alcohol intake frequency: other (very rarely) Hx Substance Use: Yes substance use type: former substance user, marijuana (medical marijuana card- no current/recent issue) and crack/cocaine (per records) Substance Use Type Other:: has a marijuana card but he states he "... doesnt use it" Last Used Substance Other:: remote hx in s; medical card-does not use Physical Exam Vital Signs Last Vital Signs Temp 98.2 F 11/24/23 08:29 Pulse 68 11/24/23 08:29 Resp 12 11/24/23 08:29 BP 140/68 11/24/23 08:29 Pulse Ox 98 11/24/23 08:29 O2 Del Method Room Air 11/24/23 08:29 Testing Laboratory Results 11/24/23 07:59 11/24/23 07:59 PT 11.6 Seconds (9.0-12.0) 11/23/23 10:14 INR 1.1 (0.9-1.1) 11/23/23 10:14 APTT 27 Seconds (21-31) 11/23/23 10:14 Hemoglobin A1c 6.2 % (4.5-5.6) H 11/22/23 06:44 11/24/23 08:15 POC Glucose 107 H Electrocardiogram Date: 08/29/23 Atrial-paced rhythm with prolonged AV conduction, rate 61 bpm Nonspecific T wave abnormality Abnormal ECG When compared with ECG of 21-AUG-2023 11:08, Electronic atrial pacemaker has replaced Sinus rhythm Vent. rate has decreased BY 32 BPM Non-specific change in ST segment in Anterior leads Confirmed by Jalen Fofana ([id number]) on 08/30/2023 6:20:06 AM Echocardiogram Date: 06/25/23 There is a large wall motion abnormality with hypokinesis of the basal inferoseptum, inferior wall at the basal and mid levels, and basal level of inferolateral wall LV systolic function is moderately reduced EF 35-40% LA is mod dilated AV sclerosis moderate, without significant AV stenosis Mod MR PASP is estimated 37 mmHg 2D and doppler criteria suggest elevated diastolic filling pressures Compared to the previous study performed 04/22/2022, the regional wall motion abnormalities are relatively unchanged. There has been a subtle decline in the LV systolic function with EF having been graded to be 40-45% at that time
--- NOTE | 2023-11-24 15:12 | Vascular Medicine ProgressNote ---
Date of Service November 24, 2023 Assessment & Plan (1) PVD (peripheral vascular disease): Plan: 2. CAD post remote CABG 3. ICM/HFrEF EF 35 to 40% 4. Paroxysmal atrial fibrillation 5. Type 2 diabetes 6. Multiple myelomaactive chemotherapy 7. tachybradycardia syndrome post pacemaker 8. History of COPD/ILD Reviewed repeat arterial duplex. Distal popliteal occlusion again noted. No other new significant disease in left lower extremity arterial system and three- vessel distal runoff. Left ANTONIO 0.65 moderately reduced and unchanged from 12/2022 previously 0.62. Feel arterial perfusion should be adequate to heal surgical wound. Can proceed without additional revascularization. Can revisit vascular options if wound healing issues in the future. Vascular medicine to sign off. Please contact if questions. Admission and Anticipated Discharge Date Admission Date: November 22, 2023 Subjective Feeling well this morning. No new issues overnight. Physical Exam Physical Exam: General: No acute distress, comfortable. Lungs: Clear to auscultation bilaterally, no rhonchi or wheezes Cardiac: Regular rate and rhythm, 1 out of 6 holosystolic murmur Abdomen: Soft, nontender Psych: Alert orient x3, normal affect and mood Extremities/vascular: --No edema -- Wound dressed Results & Data Vital Signs (Past 12 Hours) Vital Signs Temp Pulse Pulse Resp BP Pulse Ox O2 Del Method 11/24/23 14:35 62 11/24/23 12:17 99.3 F 60 14 120/58 L 92 Room Air 11/24/23 08:29 98.2 F 68 12 140/68 98 Room Air 11/24/23 07:41 97.7 F 65 18 130/71 94 Room Air 11/24/23 07:23 60 11/24/23 03:49 97.9 F 62 18 123/57 L 95 Room Air PG Care Time/CCT Total # of Minutes Spent Total Time Spent with Patient: Total time spent is greater than 50% in coordination of care (as documented) at patient's floor/unit and/or counseling patient: Coding Level of Care Code 66542 SUB INP/OBS CARE 235MIN Diagnoses PVD (peripheral vascular disease) I73.9
--- NOTE | 2023-11-24 15:46 | Cardiology Progress Note ---
Date of Service November 24, 2023 Assessment & Plan (1) Preop cardiovascular exam: (2) Chronic heart failure with reduced ejection fraction and diastolic dysfunction: (3) CAD (coronary artery disease): (4) PVD (peripheral vascular disease): (5) Paroxysmal atrial fibrillation: (6) Tachy-noman syndrome: Plan 78-year-old patient admitted due to gangrene of the left second toe. Patient is considered moderate perioperative risk from a cardiovascular perspective due to complex issues noted above. He appears compensated from a heart failure perspective. No recent unstable angina, decompensated heart failure, or unstable dysrhythmia. Carries a history of paroxysmal atrial fibrillation, however, remains in sinus rhythm since admission. No further cardiac testing or intervention would lower his perioperative risk at this time. Eliquis on hold in anticipation of podiatric surgery. Recommend IV heparin bridging. Continue beta-annika uninterrupted perioperatively. Patient treated with apixaban-only without low-dose aspirin due to history of anemia, and thrombocytopenia related to multiple myeloma. 11/24/23: Unchanged assessment/plan from above. No acute cardiac events overnight. Eliquis on hold. IV heparin infusing. Remains in atrial paced rhythm. No afib. Continue beta annika. Moderate perioperative risk. no further cardiac testing warranted. Case discussed with Dr. Mejia I spent a total of 25 minutes on the date of service in preparation, delivery, and documentation of the care provided to this patient, excluding any time spent in the performance of separately billed services. Keri Dye PA-C Department of Cardiology, [facility] This chart was completed in part utilizing Speech Voice Recognition Software. Grammatical errors, random word insertions, pronoun errors, and incomplete sentences are an occasional consequence of this system due to software limitations, ambient noise, and hardware issues. Any formal questions or concerns about the content, text, or information contained within the body of this dictation should be directly addressed to the provider for clarification. Admission and Anticipated Discharge Date Admission Date: November 22, 2023 Supervising Physician Co-Signing Physician Notes Attending attestation: Case reviewed with the advanced practitioner. I have personally performed a history and physical examination on the patient. I have reviewed the advanced practitioner's documentation on the date of service referenced in note, and I agree with, and take responsibility for the plan of care. Subjective: Patient without any subjective complaints Exam: Left second toe necrotic Data: Telemetry reveals sinus rhythm Impression/ Plan: Problems as noted above Vascular medicine input noted and appreciated * Patient felt to be a reasonable candidate for sedation necessary for left second toe amputation * He is scheduled for chemotherapy on Wednesday. Will need to reassess timing of therapy based on his recovery. I spent a total of 20 minutes coordinating, documenting, and providing care for this patient excluding time spent in the performance of separately billed services or time spent by another provider. Gio Mejia, Subjective Patient resting in bed. No acute concerns. Toe amputation planned for tomorrow. no chest pain/dyspnea. No palpitations. Review of Systems Review of Systems: All systems reviewed & are unremarkable except as noted in HPI & below Physical Exam Constitutional: well nourished; no acute distress Respiratory: no respiratory distress, no labored breathing and no retractions Cardiovascular: Rate/Rhythm: regular rate and regular rhythm Heart Sounds: normal S1, normal S2 and + murmur (1/6 holosystolic murmur heard best at the apex) Vessels: radial pulses present; no JVD and no carotid bruit Extremities: no edema Gastrointestinal (Abdomen): Inspection/Auscultation: normal bowel sounds; abdomen not distended Percussion/Palpation: abdomen soft; abdomen nontender, no guarding and abdomen not rigid Neurologic: CN's II-XI intact bilaterally and moves all extremities; no focal motor deficits Results & Data Vital Signs (Past 12 Hours) Vital Signs Temp Pulse Pulse Resp BP Pulse Ox O2 Del Method 11/24/23 15:07 36.9 C 66 18 115/58 L 92 Room Air 11/24/23 14:35 62 11/24/23 12:17 37.4 C 60 14 120/58 L 92 Room Air 11/24/23 08:29 36.8 C 68 12 140/68 98 Room Air 11/24/23 07:41 36.5 C 65 18 130/71 94 Room Air 11/24/23 07:23 60 11/24/23 03:49 36.6 C 62 18 123/57 L 95 Room Air Laboratory Results Cardiac Enzymes 11/24/23 Range/Units 07:59 AST 11 L (13-39) U/L CBC 11/24/23 Range/Units 07:59 WBC 3.96 L (4.8-10.8) K/ul RBC 2.68 L (4.70-6.10) M/uL Hgb 8.3 L (14.0-18.0) g/dl Hct 25.9 L (42.0-52.0) % Plt Count 80 L (130-400) K/uL Neut # (Auto) 2.23 (1.40-6.50) K/uL Lymph # (Auto) 0.96 L (1.20-3.40) K/uL [place] # (Auto) 0.62 H (0.11-0.59) K/uL Eos # (Auto) 0.11 (0.00-0.50) K/uL Baso # (Auto) 0.01 (0.00-0.20) K/uL Comprehensive Metabolic Panel 11/24/23 Range/Units 07:59 Sodium 144 (136-145) mmol/L Potassium 4.2 (3.5-5.1) mmol/L Chloride 112 H (98-107) mmol/L Carbon Dioxide 25 (21-32) mmol/L BUN 12 (6-23) mg/dl Creatinine 0.96 (0.6-1.4) mg/dl Glucose 111 H (70-99(Fasting)) mg/dl Calcium 7.8 L (8.6-10.3) mg/dl AST 11 L (13-39) U/L ALT 9 (7-52) U/L Alkaline Phosphatase 35 (34-104) U/L Total Protein 5.8 L (6.0-8.3) gm/dl Albumin 3.5 (3.4-5.0) gm/dl Intake and Output 11/24/23 11/24/23 11/24/23 06:59 14:59 22:59 Intake Total 870.583 / 3237.016 1507.701 / 1507.701 Output Total 600 / 2150 1950 / 1950 Balance 270.583 / 1087.016 -442.299 / -442.299 Intake: IV 540.583 / 2517.016 537.701 / 537.701 Heparin Sodium/Dextrose 25,000 170.583 / 359.516 167.701 / 167.701 units In 500 ml @ 1,150 UNITS/ HR 23 mls/hr IV .[id number] [facility] Rx #:[id number] Piperacillin/Tazobactam 4.5 gm 100 / 300 100 / 100 In Dextrose 5% Mini-B 100 ml @ 25 mls/hr IV Q8H [facility] Rx#: [id number] Vancomycin HCl 1,000 mg In 270 / 540 270 / 270 Sodium Chloride 0.9% 250 ml @ 200 mls/hr IV Q12H [facility] Rx#: [id number] Oral 330 / 720 970 / 970 Output: Urine 600 / 2150 1350 / 1350 Other 600 / 600 # Bowel Movements 0 / 0 Other: Weight 72 kg 72 kg Weight Measurement Method Standing Scale Patient Weight 11/25/23 06:59 Weight 72 kg Diagnostic Findings Telemetry reviewed:atrial paced rhythm. No afib noted. Medications Administered Current Inpatient Medications Acetaminophen (Acetaminophen 325 Mg Tab) 650 mg PO Q4H PRN PRN Reason: Pain or Fever Stop: 12/22/23 02:31 Atorvastatin Calcium (Atorvastatin 40 Mg Tab) [facility] [place] Stop: 12/22/23 08:59 Last Admin: 11/24/23 09:35 Dose: 40 mg Calcium/Vitamin D (Calcium 600mg + Vit D 400 Iu Tab) 1 tab PO DAILY [facility] Stop: 12/22/23 08:59 Last Admin: 11/24/23 09:36 Dose: 1 tab Cyanocobalamin (Cyanocobalamin (B-12) 500 Mcg Tablet) 1,000 mcg PO QAM [facility] Stop: 12/22/23 08:59 Last Admin: 11/24/23 09:37 Dose: 1,000 mcg Dextrose (Dextrose 50% 50 Ml Syringe) 25 - 50 ml IV UD PRN; Protocol PRN Reason: Hypoglycemia Protocol Stop: 12/22/23 02:31 Digoxin (Digoxin 0.125 Mg Tab) 0.125 mg PO Q2D@1600 [facility] Stop: 12/22/23 15:59 Last Admin: 11/22/23 17:53 Dose: 0.125 mg Docusate Sodium (Docusate Sodium 100 Mg Cap) 100 mg PO BID PRN PRN Reason: Constipation Stop: 12/22/23 02:31 Doxycycline Hyclate (Doxycycline Hyclate 100 Mg Cap) 100 mg PO BID [facility] Stop: 11/29/23 08:59 Furosemide (Furosemide 20 Mg Tab) 20 mg PO MoWeFr@0900 [facility] Stop: 12/22/23 08:59 Last Admin: 11/24/23 09:38 Dose: 20 mg Gabapentin (Gabapentin 300 Mg Cap) 300 mg PO BID [facility] Stop: 12/22/23 08:59 Last Admin: 11/24/23 09:38 Dose: 300 mg Glucagon (Glucagon For Inj 1 Mg Vial) 1 mg SQ UD PRN; Protocol PRN Reason: Hypoglycemia Protocol Stop: 12/22/23 02:31 Glucose (Glucose 10 Tab/Tube) 4 - 8 tab PO UD PRN; Protocol PRN Reason: Hypoglycemia Treatment Stop: 12/22/23 02:31 Glucose (Glucose 40% Gel 15 Gm Tube) 15 - 30 gm PO UD PRN; Protocol PRN Reason: Hypoglycemia Protocol Stop: 12/22/23 02:31 Piperacillin Sod/Tazobactam (Sod 4.5 gm/ Dextrose) 100 mls @ 25 mls/hr IV Q8H [facility]; Protocol Stop: 11/29/23 03:59 Last Admin: 11/24/23 12:23 Dose: 25 mls/hr Heparin Sodium/Dextrose (Heparin Sodium/Dextrose) 25,000 units in 500 mls @ 23 mls/hr IV .[id number] [facility]; Protocol Stop: 12/23/23 09:29 Last Titration: 11/24/23 09:33 Dose: 1,150 units/hr, 23 mls/hr Vancomycin HCl 1,000 mg/ (Sodium Chloride) 270 mls @ 200 mls/hr IV Q12H [facility] Stop: 11/30/23 09:59 Last Infusion: 11/24/23 11:43 Dose: Infused Insulin Aspart (Insulin Aspart Per Unit Charge) 0 units SC ACHS [facility] Stop: 12/22/23 07:29 Last Admin: 11/24/23 13:20 Dose: 10 units Insulin Glargine (Lantus Per Unit Charge) 20 units SQ DAILY [facility] Stop: 12/22/23 08:59 Last Admin: 11/24/23 10:03 Dose: 20 units Linaclotide (Linaclotide 145 Mcg Capsule) 145 mcg PO DAILY [facility] Stop: 12/22/23 08:59 Last Admin: 11/24/23 09:39 Dose: 145 mcg Metoprolol Succinate (Metoprolol Succ 50mg Ext Rel Tab) 50 mg PO PM [facility] Stop: 12/22/23 20:59 Last Admin: 11/23/23 19:38 Dose: 50 mg Metoprolol Succinate (Metoprolol Succ 25mg Ext Rel Tab) 75 mg PO QAM [facility] Stop: 12/22/23 08:59 Last Admin: 11/24/23 09:40 Dose: 75 mg Mirtazapine (Mirtazapine Tab 15 Mg Tab) 30 mg PO HS [facility] Stop: 12/22/23 20:59 Last Admin: 11/23/23 20:43 Dose: 30 mg Miscellaneous (Carbohydrates For Hypoglycemia ) 15 - 30 gm PO UD PRN PRN Reason: Hypoglycemia Protocol Stop: 12/22/23 02:31 Miscellaneous Information (Vancomycin Consult Active) 1 each N/A UD PRN PRN Reason: Consult Stop: 12/21/23 22:27 Morphine Sulfate (Morphine Sulfate Ir 15 Mg Tab (Immediate Release)) 15 mg PO HS PRN PRN Reason: Pain Stop: 12/07/23 20:56 Last Admin: 11/23/23 21:16 Dose: 15 mg Nitroglycerin (Nitroglycerin Sl 0.4 Mg/Tab Tab) 0.4 mg SL Q5M PRN PRN Reason: Chest Pain Stop: 12/22/23 02:31 Pantoprazole Sodium (Pantoprazole 40 Mg Tab) 40 mg PO QAM [facility] Stop: 12/22/23 08:59 Last Admin: 11/24/23 09:42 Dose: 40 mg Polyethylene Glycol (Polyethylene (Miralax) 17 Gm Pack) 17 gm PO DAILY PRN PRN Reason: Constipation Stop: 12/22/23 02:31 Polyethylene Glycol (Polyethylene (Miralax) 17 Gm Pack) 17 gm PO DAILY [facility] Stop: 12/23/23 15:59 Last Admin: 11/24/23 09:43 Dose: 17 gm Potassium Chloride (Potassium Chloride Crtab 20 Meq Tabcr) 20 meq PO BID [facility] Stop: 12/22/23 08:59 Last Admin: 11/24/23 09:42 Dose: 20 meq Prochlorperazine (Prochlorperazine Maleate 10 Mg Tab) 10 mg PO Q6H PRN PRN Reason: nausea Stop: 12/22/23 02:31 Sennosides (Senna 8.6 Mg Tab) 17.2 mg PO HS PRN PRN Reason: Constipation Stop: 12/22/23 02:31 (3) CAD (coronary artery disease) Associated angina: with stable angina Coronary Disease-Associated Artery/Lesion type: [place] artery [place] vs. transplanted heart: [place] heart Qualified Code(s): I25.118 - Atherosclerotic heart disease of [place] coronary artery with other forms of angina pectoris
--- NOTE | 2023-11-24 22:28 | Hospitalist Progress Note ---
Date of Service November 24, 2023 Assessment & Plan (1) Ischemic necrosis of toe: Plan: 78-year-old male with past medical history significant for type 2 diabetes, hyperlipidemia, peripheral neuropathy, COPD, interstitial lung disease, paroxysmal atrial fibrillation, chronic systolic and diastolic CHF, tachybradycardia syndrome s/p pacemaker, history of CAD s/p CABG, GERD, CKD stage III, multiple myeloma on chemo, presents with necrotic left second toe. Patient underwent amputation of the distal phalanx of left second toe on 10/22/2023 secondary to osteomyelitis. And when sutures were removed on Nov 08 2023 wound dehiscence was noted. Followed with wound care. Also seen by vascular medicine on October 14, 2023 prior to surgery. 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 Gangrene of left second toe Past history as above; amputation of distal phalanx of left second toe in October 2023 secondary to osteomyelitis Dark discoloration of left second toe consistent with gangrene Continue on IV antibiotics with vancomycin and Zosyn Previous provider discussed with podiatry; recommended cardiology evaluation and vascular evaluation prior to intervention. Amputation scheduled for 11/25/23 Previous provider discussed with Dr. Campo from vascular medicine; no intervention on the popliteal artery for the time being; okay to proceed with surgery. Discussed with Dr. Lane from cardiology; he recommended heparin bridging for atrial fibrillation. Continue beta-annika uninterrupted. No additional cardiac workup prior to procedure. Appreciate recs Chronic systolic and diastolic CHF Echo from June 2023 EF 35 to 40%, moderate mitral regurgitation, moderate aortic valve sclerosis. Moderate dilated left atrium Currently on Lasix 3 times a week which will be continued Will monitor for volume overload Type 2 diabetes Hgba1c of 6.2 on Nov 22 Basal/bolus per protocol Paroxysmal atrial fibrillation Tachybradycardia syndrome s/p pacemaker On digoxin, Toprol-XL Holding Eliquis for procedures. Currently on heparin drip. Heparin drips needs to be on hold 6 hours prior to surgery. Hypertension On metoprolol succinate Monitor Hyperlipidemia On statin History of CAD s/p CABG On beta-annika and statin Currently holding Eliquis, on heparin drip CKD stage III Cr currently wnl Avoid nephrotoxic agents/contrast as able Monitor with AM labs Multiple myeloma Maintenance Chemo was recently restarted Will hold Revlimid for now Follow-up with heme-onc -pt's oncologist not currently in country -will follow up with covering oncology provider for further recs History of COPD Interstitial lung disease Will monitor Diet: DMII/HH DVT prophylaxis: Heparin drip Disposition: PT/OT ordered post op Full code Admission and Anticipated Discharge Date Admission Date: November 22, 2023 Subjective Mr Hernandez was seen laying in bed. Concerned about his chemotherapy and when he could have that done. States that he would like a port placed rather than a PICC. Otherwise stated that he was ready for his procedure tomorrow. Review of Systems Review of Systems: All systems reviewed & are unremarkable except as noted in Subjective Physical Exam Physical Exam: General: Alert, oriented. No acute distress Skin: left second toe blackened Psych: Appropriate mood and affect Neuro: No gross deficits HEENT: NC/AT Chest: Nontender to palpation. CV: RRR Resp: Breath sounds clear bilaterally, no increased effort of breathing. Abdomen: Soft, nontender, nondistended. Extremities: left second toe blackened Results & Data Results & Data Vital Signs (Past 12 Hours) Vital Signs Temp Pulse Pulse Resp BP Pulse Ox O2 Del Method 11/24/23 08:29 36.8 C 68 12 140/68 98 Room Air 11/24/23 07:41 36.5 C 65 18 130/71 94 Room Air 11/24/23 07:23 60 11/24/23 03:49 36.6 C 62 18 123/57 L 95 Room Air
[2023-11-25] MEDS: MAGNESIUM SULFATE / D5W 1 GM/100 ML BAG IV ONE (01:15)
[2023-11-25 01:46] LABS: Basophils # (auto) 0.01 K/uL (0.00-0.20); Basophils % (auto) 0.2 %; Eosinophils # (auto) 0.11 K/uL (0.00-0.50); Eosinophils % (auto) 2.5 %; Hematocrit (blood only) 24.5 % (42.0-52.0); Hemoglobin 8.9 g/dl (14.0-18.0); Immature Granulocytes # (auto) 0.05 K/uL (0.01-0.20); Immature Granulocytes % (auto) 1.1 %; Lymphocytes # (auto) 1.07 K/uL (1.20-3.40); Lymphocytes % (auto) 24.3 %; Mean Corpuscular Hemoglobin 34.5 pg (25.0-34.0); Mean Corpuscular Hgb Conc 36.3 g/dL (32.0-36.0); Mean Platelet Volume 10.8 fL (9.4-12.4); Monocytes # (auto) 0.52 K/uL (0.11-0.59); Monocytes % (auto) 11.8 %; Neutrophils # (auto) 2.64 K/uL (1.40-6.50); Neutrophils % (auto) 60.1 %; Platelet Count 90 K/uL (130-400); RDW Coefficient of Variation 16.2 % (11.5-14.5); RDW Standard Deviation 55.2 fL (36.4-46.3); Red Blood Count 2.58 M/uL (4.70-6.10)
[2023-11-25 02:13] LABS: BUN Creatinine Ratio 15.6 (10-20); Est GFR (African American) 95.1 ml/min; Est GFR (Non-African American) 82.1 ml/min; Magnesium 1.8 mg/dl (1.7-2.4); Potassium 3.7 mmol/L (3.5-5.1)
[2023-11-25 02:22] LABS: Vancomycin Random 22.3 mcg/ml (10-20)
[2023-11-25 03:16] LABS: Digoxin 0.3 ng/ml (0.8-2.0)
[2023-11-25 03:27] LABS: ANTI-Xa, UFH(UnfractionatedHep 0.36 IU/ml (0.3-0.7)
[2023-11-25] MEDS: POTASSIUM CHLORIDE CRTAB 20 MEQ TABCR PO STA (04:12)
[2023-11-25] MEDS: INSULIN ASPART PER UNIT CHARGE SC SCH ×2 (06:08→17:54)
[2023-11-25 07:23] LABS: Eosinophils # (auto) 0.09 K/uL (0.00-0.50); Eosinophils % (auto) 1.7 %; Hematocrit (blood only) 27.6 % (42.0-52.0); Hemoglobin 9.4 g/dl (14.0-18.0); Immature Granulocytes # (auto) 0.05 K/uL (0.01-0.20); Lymphocytes # (auto) 0.74 K/uL (1.20-3.40); Lymphocytes % (auto) 14.1 %; Mean Corpuscular Hemoglobin 32.4 pg (25.0-34.0); Mean Corpuscular Hgb Conc 34.1 g/dL (32.0-36.0); Mean Corpuscular Volume 95.2 fL (80.0-100.0); Mean Platelet Volume 10.9 fL (9.4-12.4); Monocytes % (auto) 9.5 %; Neutrophils # (auto) 3.88 K/uL (1.40-6.50); Neutrophils % (auto) 73.7 %; Platelet Count 90 K/uL (130-400); RDW Standard Deviation 55.5 fL (36.4-46.3); White Blood Count 5.26 K/ul (4.8-10.8)
[2023-11-25 07:55] LABS: Albumin Globulin Ratio 1.5 (0.9-2); Albumin Level 3.6 gm/dl (3.4-5.0); BUN Creatinine Ratio 14.6 (10-20); Bilirubin,Total 0.5 mg/dl (0.2-1.0); Calcium 8.3 mg/dl (8.6-10.3); Creatinine Clr Calc Pharmacy 66.6 ml/min; Est GFR (Non-African American) 75.9 ml/min; Globulin 2.4 gm/dl (2.5-4.0); Phosphorus 1.9 mg/dl (2.5-4.9); Potassium 4.2 mmol/L (3.5-5.1)
[2023-11-25 08:27] LABS: ANTI-Xa, UFH(UnfractionatedHep < 0.10 IU/ml (0.3-0.7)
[2023-11-25] MEDS: LACTATED RINGER'S 1,000 ML IV SCH (09:25)
[2023-11-25] MEDS ORDERED: ePHEDrine sulfate 50 MG/ML AMP IV PRN (09:44)
[2023-11-25] MEDS ORDERED: ATROPINE SULFATE 0.1 MG/ML 10ML SYR IV PRN (09:44)
[2023-11-25] MEDS ORDERED: fentaNYL citrate PF 100 MCG/2 ML VIAL IV PRN (09:44)
[2023-11-25] MEDS ORDERED: ONDANSETRON INJ 2 MG/ML 2 ML VIAL IV PRN (09:44)
[2023-11-25] MEDS ORDERED: PROPOFOL IV EMULSION 10 MG/ML 20 ML VIAL IV ONE (09:55)
[2023-11-25] MEDS ORDERED: LIDOCAINE 2% 2 ML VIAL/AMP(20MG/ML) INFIL ONE (09:55)
[2023-11-25] MEDS ORDERED: fentaNYL citrate PF 100 MCG/2 ML VIAL ONE (09:58)
--- NOTE | 2023-11-25 10:19 | History & Physical Bridge Note ---
Date of Service November 25, 2023 History & Physical Bridge Note I have examined the patient, reviewed the History & Physical and in the interval since the performance of the History & Physical I have noted the following changes of clinical significance: no changes noted. Plan for second toe amputation today. All questions answered. No new concerns
[2023-11-25] MEDS ORDERED: POTASSIUM PHOS 3 MMOL/1 ML INFUSION IV STA (10:35)
--- NOTE | 2023-11-25 10:41 | Pharmacy Report ---
Pharmacy PK ABX Note - Date of Service November 25, 2023 - Assessment and Plan Assessment * 78 year old M receiving vancomycin and Zosyn for treatment of diabetic foot, L 2nd toe necrosis. * Pertinent microbiologic data includes: 11/16/23 L 2nd toe cx growing MSSA; pt has h/o of pseudomonas aeruginosa in prior foot cultures (however organism was pansensitive) * OR today for left second toe amputation * Renal function stable. Patient remains afebrile w/ no leukocytosis. * Consider de-escalation of current regimen based on culture data in postoperative setting. Plan Vancomycin * Current regimen: 1000 mg IV every 12 hours * Random level obtained 11/25/23 resulted as 17.4 mcg/mL. This is predicted to achieve target AUC/KANDI of 400-600 mg/L.hr * Predicted AUC at steady state: 555 mg/L.hr * Continue 1000 mg IV every 12 hours * Will repeat level in the next 48-72 hours if therapy is continued and/or change in patient clinical status Zosyn * 4.5 g IV q8h - appropriately dosed based on indication/renal function Pharmacy will continue to follow and will adjust dose/frequency as necessary. Thank you. Pharmacy has transitioned to AUC monitoring for vancomycin. AUC/KANDI is the preferred PK/PD target and is associated with decreased risk of nephrotoxicity compared to traditional trough targets.
[2023-11-25] MEDS ORDERED: PHENYLEPHRINE 100MCG/ML 10ML SYR IV ONE (10:49)
[2023-11-25] MEDS: BUPIVACAINE 0.5 % 5 MG/1 ML MPF 30ML VIAL ONE (10:58)
--- NOTE | 2023-11-25 11:06 | Post Operative Brief Note ---
Immediate Post Op Note v1 Date of Surgery November 25, 2023 Pre & Post Diagnosis Operation Date: 11/25/23 10:20 Pre-Op Diagnosis: Necrotic Left Second Toe Post-Op Diagnosis: Necrotic Left Second Toe I identified the patient and participated in the time-out.: Yes Procedure Operation Date: 11/25/23 10:20 Actual Procedures p Left 2nd Toe Amputation(Left) - Bao Orellana DPM Surgeon Bao Orellana DPM Artistic Associate None Estimated Blood Loss 10 Findings Consistent with Post-Op Diagnosis Specimens Left second toe Anesthesia Type MAC Complications none Disposition Accompanied Patient To Recovery: Yes
--- NOTE | 2023-11-25 11:54 | Anesthesiology Progress Note ---
Date of Service November 25, 2023 Anesthesia Post Procedure Vital Signs Vital Signs: Temp Pulse Pulse Pulse Resp BP BP 11/25/23 11:30 70 17 103/50 L 11/25/23 11:20 71 18 104/52 L 11/25/23 11:13 99.1 F 77 16 110/56 L 11/25/23 09:17 100.0 F H 86 20 142/64 H 11/25/23 07:29 97.9 F 89 18 172/70 H 11/25/23 02:38 98.2 F 80 16 115/56 L 11/24/23 23:18 98.8 F 77 17 114/63 11/24/23 20:00 11/24/23 19:25 99.1 F 70 17 132/62 11/24/23 16:00 63 11/24/23 15:07 98.4 F 66 18 115/58 L 11/24/23 14:35 62 11/24/23 12:17 99.3 F 60 14 120/58 L Pulse Ox O2 Del Method 11/25/23 11:30 93 Room Air 11/25/23 11:20 91 Room Air 11/25/23 11:13 91 Room Air 11/25/23 09:17 92 Room Air 11/25/23 07:29 91 Room Air 11/25/23 02:38 95 Room Air 11/24/23 23:18 95 Room Air 11/24/23 20:00 Room Air 11/24/23 19:25 95 Room Air 11/24/23 16:00 11/24/23 15:07 92 Room Air 11/24/23 14:35 11/24/23 12:17 92 Room Air Transfer of Care Handoff Completed per policy Notes Mental Status: alert / awake / arousable and participated in evaluation Patient Amnestic to Procedure: Yes Nausea / Vomiting: adequately controlled Pain: adequately controlled Airway Patency, RR, SpO2: stable & adequate BP & HR: stable & adequate Hydration State: stable & adequate Anesthetic Complications: no major complications apparent and Pt Satisfied with anesthetic care
[2023-11-25] MEDS: POTASSIUM PHOSPHATE 21 MMOL in SODIUM CHLORIDE 0.9% 500 ML IV ONE (12:33)
[2023-11-25] MEDS ORDERED: Nursing to Pharmacy Communication SCH (14:30)
[2023-11-25] MEDS: HYDROmorphone INJ 0.5 MG/0.5 ML SYR IV STA (16:00)
[2023-11-25 20:43] LABS: ANTI-Xa, UFH(UnfractionatedHep 0.27 IU/ml (0.3-0.7)
[2023-11-25 20:45] LABS: Calcium 8.1 mg/dl (8.6-10.3); Magnesium 1.9 mg/dl (1.7-2.4); Potassium 3.6 mmol/L (3.5-5.1)
[2023-11-25 20:51] LABS: BUN Creatinine Ratio 13.3 (10-20); Creatinine Clr Calc Pharmacy 71.1 ml/min; Est GFR (African American) 95.1 ml/min; Est GFR (Non-African American) 82.1 ml/min; Phosphorus 2.4 mg/dl (2.5-4.9)
[2023-11-25 20:52] LABS: Troponin I High Sensitivity 15.5 pg/ml (0-20)
[2023-11-25 20:59] LABS: Basophils # (auto) 0.01 K/uL (0.00-0.20); Basophils % (auto) 0.2 %; Eosinophils # (auto) 0.09 K/uL (0.00-0.50); Eosinophils % (auto) 1.8 %; Hematocrit (blood only) 22.2 % (42.0-52.0); Hemoglobin 7.3 g/dl (14.0-18.0); Immature Granulocytes # (auto) 0.05 K/uL (0.01-0.20); Lymphocytes % (auto) 20.4 %; Mean Corpuscular Hemoglobin 31.7 pg (25.0-34.0); Mean Corpuscular Hgb Conc 32.9 g/dL (32.0-36.0); Mean Corpuscular Volume 96.5 fL (80.0-100.0); Mean Platelet Volume 11.2 fL (9.4-12.4); Monocytes # (auto) 0.46 K/uL (0.11-0.59); Monocytes % (auto) 9.4 %; Neutrophils % (auto) 67.2 %; Platelet Count 84 K/uL (130-400); RDW Coefficient of Variation 16.5 % (11.5-14.5); RDW Standard Deviation 57.3 fL (36.4-46.3); Tear Drop Cells 1+; White Blood Count 4.91 K/ul (4.8-10.8)
[2023-11-25 21:09] LABS: RBC Morphology Unremarkable
[2023-11-25] MEDS: SENNA 8.6 MG TAB PO PRN (21:15)
--- NOTE | 2023-11-25 23:24 | Hospitalist Progress Note ---
Date of Service November 25, 2023 Assessment & Plan (1) Ischemic necrosis of toe: Plan: 78-year-old male with past medical history significant for type 2 diabetes, hyperlipidemia, peripheral neuropathy, COPD, interstitial lung disease, paroxysmal atrial fibrillation, chronic systolic and diastolic CHF, tachybradycardia syndrome s/p pacemaker, history of CAD s/p CABG, GERD, CKD stage III, multiple myeloma on chemo, presents with necrotic left second toe. Patient underwent amputation of the distal phalanx of left second toe on 10/22/2023 secondary to osteomyelitis. And when sutures were removed on Nov 08 2023 wound dehiscence was noted. Followed with wound care. Also seen by vascular medicine on October 14, 2023 prior to surgery. 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 Gangrene of left second toe Past history as above; amputation of distal phalanx of left second toe in October 2023 secondary to osteomyelitis Dark discoloration of left second toe consistent with gangrene Continue on IV antibiotics with vancomycin and Zosyn Previous provider discussed with podiatry; recommended cardiology evaluation and vascular evaluation prior to intervention. Amputation scheduled for 11/25/23 Previous provider discussed with Dr. Campo from vascular medicine; no intervention on the popliteal artery for the time being; okay to proceed with surgery. Discussed with Dr. Lane from cardiology; he recommended heparin bridging for atrial fibrillation. Continue beta-annika uninterrupted. No additional cardiac workup prior to procedure. -s/p amputation of left second toe on 11/25/2023 with podiatry -pathology pending -no further blood Cx -given infectious source removed, discontinue antibiotics Appreciate recs Paroxysmal atrial fibrillation Tachybradycardia syndrome s/p pacemaker On digoxin, Toprol-XL Holding Eliquis for procedures. Currently on heparin drip. Heparin drips on hold 6 hours prior to his surgery, has since been resumed. Notified on 11/25 that pt had flipped into atrial fibrillation from paced rhythm. Further workup: EKG, hs trop. Consider order for echo in AM, pacer interrogation with cardiology follow up. Likely flipped as a result of recent surgery (stressor) On heparin as above that has been resumed postop, currently rate controlled. Continue current meds digoxin, Toprol-XL Chronic systolic and diastolic CHF Echo from June 2023 EF 35 to 40%, moderate mitral regurgitation, moderate aortic valve sclerosis. Moderate dilated left atrium Currently on Lasix 3 times a week which will be continued Will monitor for volume overload Type 2 diabetes Hgba1c of 6.2 on Nov 5 Basal/bolus per protocol Hypertension On metoprolol succinate Monitor Hyperlipidemia On statin History of CAD s/p CABG On beta-annika and statin Currently holding Eliquis, on heparin drip CKD stage III Cr currently wnl Avoid nephrotoxic agents/contrast as able Monitor with AM labs Multiple myeloma Maintenance Chemo was recently restarted Will hold Revlimid for now Follow-up with heme-onc -pt's oncologist not [place] -will follow up with covering oncology provider for further recs History of COPD Interstitial lung disease Will monitor Diet: DMII/HH DVT prophylaxis: Heparin drip Disposition: PT/OT ordered post op Full code Admission and Anticipated Discharge Date Admission Date: November 22, 2023 Subjective Pt was seen multiple times postop. Originally denied concerns, noting that he felt great. Later notified by nursing that pt had flipped from a paced rhythm to atrial fibrillation. On exam in the room pt sleeping, notes he is asymptomatic Review of Systems Review of Systems: All systems reviewed & are unremarkable except as noted in Subjective Physical Exam Physical Exam: General: sleepy. No acute distress Skin: left foot bandaged Psych: mood and affect could not be determined Neuro: No gross deficits HEENT: NC/AT Chest: Nontender to palpation. CV: RRR Resp: Breath sounds clear bilaterally, no increased effort of breathing. Abdomen: Soft, nontender, nondistended. Extremities: left foot bandaged Results & Data Results & Data Vital Signs (Past 12 Hours) Vital Signs Temp Pulse Pulse Pulse Resp BP BP 11/25/23 14:47 81 11/25/23 14:02 36.5 C 70 117/64 11/25/23 13:02 80 11/25/23 13:00 36.8 C 67 110/60 11/25/23 12:20 37.5 C 76 119/61 11/25/23 11:40 37.3 C 68 16 101/51 L 11/25/23 11:30 70 17 103/50 L 11/25/23 11:20 71 18 104/52 L 11/25/23 11:13 37.3 C 77 16 110/56 L 11/25/23 09:17 37.8 C H 86 20 142/64 H 11/25/23 07:29 36.6 C 89 18 172/70 H Pulse Ox O2 Del Method 11/25/23 14:47 11/25/23 14:02 93 Room Air 11/25/23 13:02 11/25/23 13:00 94 Room Air 11/25/23 12:20 95 Room Air 11/25/23 11:40 93 Room Air 11/25/23 11:30 93 Room Air 11/25/23 11:20 91 Room Air 11/25/23 11:13 91 Room Air 11/25/23 09:17 92 Room Air 11/25/23 07:29 91 Room Air
[2023-11-25] MEDS: ACETAMINOPHEN 325 MG TAB PO PRN (23:45)
[2023-11-26 03:20] LABS: ANTI-Xa, UFH(UnfractionatedHep 0.31 IU/ml (0.3-0.7)
[2023-11-26 03:25] LABS: Albumin Globulin Ratio 1.6 (0.9-2); Albumin Level 3.6 gm/dl (3.4-5.0); BUN Creatinine Ratio 13.2 (10-20); Bilirubin,Total 0.4 mg/dl (0.2-1.0); Calcium 8.4 mg/dl (8.6-10.3); Creatinine Clr Calc Pharmacy 70.3 ml/min; Est GFR (African American) 93.9 ml/min; Globulin 2.3 gm/dl (2.5-4.0); Magnesium 1.9 mg/dl (1.7-2.4); Phosphorus 3.2 mg/dl (2.5-4.9); Potassium 3.8 mmol/L (3.5-5.1); Total Protein 5.9 gm/dl (6.0-8.3)
[2023-11-26 04:22] LABS: Basophils # (auto) 0.01 K/uL (0.00-0.20); Basophils % (auto) 0.2 %; Eosinophils # (auto) 0.08 K/uL (0.00-0.50); Eosinophils % (auto) 1.5 %; Hematocrit (blood only) 23.4 % (42.0-52.0); Hemoglobin 7.8 g/dl (14.0-18.0); Immature Granulocytes # (auto) 0.05 K/uL (0.01-0.20); Immature Granulocytes % (auto) 0.9 %; Lymphocytes # (auto) 0.88 K/uL (1.20-3.40); Lymphocytes % (auto) 16.2 %; Mean Corpuscular Hgb Conc 33.3 g/dL (32.0-36.0); Mean Corpuscular Volume 95.9 fL (80.0-100.0); Mean Platelet Volume 11.1 fL (9.4-12.4); Monocytes # (auto) 0.61 K/uL (0.11-0.59); Monocytes % (auto) 11.2 %; Ovalocytes 1+; Platelet Count 73 K/uL (130-400); Platelet Estimate Decreased (Normal); RDW Coefficient of Variation 16.5 % (11.5-14.5); RDW Standard Deviation 57.2 fL (36.4-46.3); Red Blood Count 2.44 M/uL (4.70-6.10); Tear Drop Cells 2+; White Blood Count 5.43 K/ul (4.8-10.8)
[2023-11-26] MEDS: POTASSIUM CHLORIDE CRTAB 20 MEQ TABCR PO SCH (07:51)
[2023-11-26] MEDS ORDERED: PHARMACY GLYCEMIC MGMT CONSULT PRN (10:31)
--- NOTE | 2023-11-26 10:35 | Cardiology Progress Note ---
Date of Service November 26, 2023 Assessment & Plan (1) Paroxysmal atrial fibrillation: (2) Chronic heart failure with reduced ejection fraction and diastolic dysfunction: (3) CAD (coronary artery disease): (4) PVD (peripheral vascular disease): (5) Tachy-noman syndrome: Plan 78-year-old patient admitted due to gangrene of the left second toe. Amputation performed 11/25/2023 without complication. Brief episode of paroxysmal atrial fibrillation without associated symptoms recorded overnight. Appears compensated from a heart failure perspective. Continue bridging therapy with IV heparin. Resume Eliquis 5 mg twice daily if no further invasive procedures are scheduled. Continue other cardiovascular medications including atorvastatin, digoxin, furosemide, and metoprolol succinate. No further inpatient cardiac testing or intervention recommended at this time. Cardiology will sign off. Please call with any additional concerns/questions. Admission and Anticipated Discharge Date Admission Date: November 22, 2023 Subjective 78-year-old male seen and examined at the bedside. Toe amputation performed without complication. Brief episode of paroxysmal atrial fibrillation with rapid ventricular response recorded overnight. No associated symptoms. Denies chest pain or shortness of breath. No orthopnea or PND. Pain well-controlled. Currently sinus rhythm on telemetry. Review of Systems Review of Systems: All systems reviewed & are unremarkable except as noted in Subjective Physical Exam Constitutional: well nourished; no acute distress Respiratory: no respiratory distress, no labored breathing and no retractions Cardiovascular: Rate/Rhythm: regular rate and regular rhythm Heart Sounds: normal S1, normal S2 and + murmur (1/6 holosystolic murmur heard best at the apex) Vessels: radial pulses present; no JVD and no carotid bruit Extremities: no edema Gastrointestinal (Abdomen): Inspection/Auscultation: normal bowel sounds; abdomen not distended Percussion/Palpation: abdomen soft; abdomen nontender, no guarding and abdomen not rigid Neurologic: CN's II-XI intact bilaterally and moves all extremities; no focal motor deficits Results & Data Vital Signs (Past 12 Hours) Vital Signs Temp Pulse Pulse Resp BP BP Pulse Ox 11/26/23 07:24 36.6 C 75 18 116/54 L 93 11/26/23 07:19 73 11/26/23 02:50 36.9 C 66 18 100/38 L 90 11/26/23 00:42 38.4 C H 87 16 129/59 L 93 02/09/24 00:37 85 11/25/23 23:49 37.5 C 11/25/23 23:08 37.9 C H 81 16 131/67 90 O2 Del Method 11/26/23 07:24 Room Air 11/26/23 07:19 11/26/23 02:50 Room Air 11/26/23 00:42 Room Air 11/26/23 00:37 11/25/23 23:49 11/25/23 23:08 Room Air Laboratory Results Cardiac Enzymes 11/25/23 11/26/23 Range/Units 20:04 02:33 AST 14 (13-39) U/L Troponin I High Sens 15.5 (0-20) pg/ml CBC 11/25/23 11/26/23 Range/Units 20:04 02:33 WBC 4.91 5.43 (4.8-10.8) K/ul RBC 2.30 L 2.44 L (4.70-6.10) M/uL Hgb 7.3 L 7.8 L (14.0-18.0) g/dl Hct 22.2 L 23.4 L (42.0-52.0) % Plt Count 84 L 73 L (130-400) K/uL Neut # (Auto) 3.30 3.80 (1.40-6.50) K/uL Lymph # (Auto) 1.00 L 0.88 L (1.20-3.40) K/uL Gage # (Auto) 0.46 0.61 H (0.11-0.59) K/uL Eos # (Auto) 0.09 0.08 (0.00-0.50) K/uL Baso # (Auto) 0.01 0.01 (0.00-0.20) K/uL Comprehensive Metabolic Panel 11/25/23 11/26/23 Range/Units 20:04 02:33 Sodium 137 136 (136-145) mmol/L Potassium 3.6 3.8 (3.5-5.1) mmol/L Chloride 107 106 (98-107) mmol/L Carbon Dioxide 21 22 (21-32) mmol/L BUN 12 12 (6-23) mg/dl Creatinine 0.90 0.91 (0.6-1.4) mg/dl Glucose 157 H 169 H (70-99(Fasting)) mg/dl Calcium 8.1 L 8.4 L (8.6-10.3) mg/dl AST 14 (13-39) U/L ALT 14 (7-52) U/L Alkaline Phosphatase 42 (34-104) U/L Total Protein 5.9 L (6.0-8.3) gm/dl Albumin 3.6 (3.4-5.0) gm/dl Intake and Output 11/25/23 11/26/23 11/26/23 22:59 06:59 14:59 Intake Total 1435.500 / 2611.100 305.6 / 2611.100 108.8 / 108.8 Output Total 1400 / 3060 600 / 3060 600 / 600 Balance 35.500 / -448.900 -294.4 / -448.900 -491.2 / -491.2 Intake: IV 795.500 / 1321.100 155.6 / 1321.100 108.8 / 108.8 Heparin Sodium/Dextrose 25,000 189.750 / 345.350 155.6 / 345.350 108.8 / 108.8 units In 500 ml @ 1,200 UNITS/ HR 24 mls/hr IV .[id number] [facility] Rx #:[id number] Piperacillin/Tazobactam 4.5 gm 98.75 / 198.75 In Dextrose 5% Mini-B 100 ml @ 25 mls/hr IV Q8H [facility] Rx#: [id number] Potassium Phosphate 21 mmol In 507 / 507 Sodium Chloride 0.9% 500 ml @ 88 mls/hr IV [facility] Rx#: [id number] Oral 640 / 790 150 / 790 Output: Urine 1400 / 3050 600 / 3050 600 / 600 Other: Weight 72.9 kg Weight Measurement Method Built in [facility] (3) CAD (coronary artery disease) Coronary Disease-Associated Artery/Lesion type: [place] artery [place] vs. transplanted heart: [place] heart Associated angina: with stable angina Qualified Code(s): I25.118 - Atherosclerotic heart disease of [place] coronary artery with other forms of angina pectoris
--- NOTE | 2023-11-26 11:59 | Pharmacy Report ---
Pharmacy Glycemic Short Note 2 - Date of Service November 26, 2023 - Glycemic Short BSG Results (Last 24 hours): 11/25/23 11/25/23 11/25/23 12:54 16:59 20:04 Glucose 157 H POC Glucose 143 H 276 H 11/25/23 11/26/23 11/26/23 20:22 02:33 07:29 Glucose 169 H POC Glucose 183 H 176 H 11/26/23 11:40 Glucose POC Glucose 254 H OUTPATIENT ANTIDIABETIC REGIMEN: * Basaglar 45 units SC qPM * Novolog per sliding scale (per certified diabetes educator note: takes throughout the day when Dexcom alarms) * Victoza 1.2 mg SC daily HbA1c: 6.2% (11/22/23) ASSESSMENT: * RB is a 78 year old male POD #1 s/p left 2nd toe amputation secondary to diabetic foot ulcer * Pharmacy consulted for glycemic management in postoperative period * Blood sugars have been reasonably controlled w/ intermittent periods of hyperglycemia * Heparin gtt (mixed in dextrose) currently infusing, likely will be switched back to Eliquis in postop period if no further intervention is required * Will allow for increased basal insulin today and will tighten Novolog parameters PLAN FOR INPATIENT GLYCEMIC CONTROL: * Basal insulin * Lantus 20 units SQ daily * Lantus 0-10-20 units SC HS * Bolus insulin * NovoLog per scale ACHS or Q6hrs while NPO * Goal Range: Low 110 mg/dL - High 140 mg/dL * Correction Factor: 20 mg/dL/unit * Nutritional / Prandial insulin per carb ratio of 1 unit per 6 grams CHO consumed
[2023-11-26] MEDS ORDERED: LANTUS PER UNIT CHARGE SQ SCH (12:00)
[2023-11-26] MEDS: INSULIN ASPART PER UNIT CHARGE SC SCH (12:24)
[2023-11-26] MEDS: MoRPHine SULFATE IR 15 MG TAB (IMMEDIATE RELEASE) PO ONE (15:46)
--- NOTE | 2023-11-26 16:47 | Electrocardiogram Report ---
Test Reason : Blood Pressure : / mmHG Vent. Rate : 075 BPM Atrial Rate : 075 BPM P-R Int : 198 ms QRS Dur : 096 ms QT Int : 382 ms P-R-T Axes : 051 069 133 degrees QTc Int : 426 ms Sinus rhythm with Premature atrial complexes Abnormal ECG When compared with ECG of 29-AUG-2023 11:10, T wave inversion now evident in Lateral leads Confirmed by Dutch Dela Cruz ([id number] on 11/26/2023 4:47:11 PM Referred By: REFERRED SELF Confirmed By:Dutch Dela Cruz
--- NOTE | 2023-11-26 17:44 | Hospitalist Progress Note ---
Date of Service November 26, 2023 Assessment & Plan (1) Ischemic necrosis of toe: Plan: 78-year-old male with past medical history significant for type 2 diabetes, hyperlipidemia, peripheral neuropathy, COPD, interstitial lung disease, paroxysmal atrial fibrillation, chronic systolic and diastolic CHF, tachybradycardia syndrome s/p pacemaker, history of CAD s/p CABG, GERD, CKD stage III, multiple myeloma on chemo, presents with necrotic left second toe. Patient underwent amputation of the distal phalanx of left second toe on 10/22/2023 secondary to osteomyelitis. And when sutures were removed on Nov 08 2023 wound dehiscence was noted. Followed with wound care. Also seen by vascular medicine on October 14, 2023 prior to surgery. 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 Gangrene of left second toe Past history as above; amputation of distal phalanx of left second toe in October 2023 secondary to osteomyelitis Dark discoloration of left second toe consistent with gangrene Continue on IV antibiotics with vancomycin and Zosyn Previous provider discussed with podiatry; recommended cardiology evaluation and vascular evaluation prior to intervention. Amputation scheduled for 11/25/23 Previous provider discussed with Dr. Campo from vascular medicine; no intervention on the popliteal artery for the time being; okay to proceed with surgery. Discussed with Dr. Lane from cardiology; he recommended heparin bridging for atrial fibrillation. Continue beta-annika uninterrupted. No additional cardiac workup prior to procedure. -s/p amputation of left second toe on 11/25/2023 with podiatry -pathology pending -no further blood Cx -given infectious source removed, discontinue antibiotics PT/OT- recommend going home Appreciate recs Paroxysmal atrial fibrillation Tachybradycardia syndrome s/p pacemaker On digoxin, Toprol-XL Holding Eliquis for procedures. Currently on heparin drip. Heparin drip on hold 6 hours prior to his surgery, has since been resumed. Notified on 11/25 that pt had flipped into atrial fibrillation from paced rhythm. Also occasionally going into atrial flutter. Seen by Cardiology on 11/26- recommended continuing with his current regimen. -Further workup: EKG, hs trop. Consider order for echo in AM, pacer interrogation with cardiology follow up. Likely flipped as a result of recent surgery (stressor) On heparin as above that has been resumed postop, currently rate controlled. Continue current meds digoxin, Toprol-XL Continue to monitor on telemtry Chronic systolic and diastolic CHF Echo from June 2023 EF 35 to 40%, moderate mitral regurgitation, moderate aortic valve sclerosis. Moderate dilated left atrium Currently on Lasix 3 times a week which will be continued Will monitor for volume overload Type 2 diabetes Hgba1c of 6.2 on Nov 5 Basal/bolus per protocol Hypertension On metoprolol succinate Monitor Hyperlipidemia On statin History of CAD s/p CABG On beta-annika and statin Currently holding Eliquis, on heparin drip CKD stage III Cr currently wnl Avoid nephrotoxic agents/contrast as able Monitor with AM labs Multiple myeloma Maintenance Chemo was recently restarted Will hold Revlimid for now Follow-up with heme-onc -pt's oncologist not currently in country -will follow up with covering oncology provider for further recs History of COPD Interstitial lung disease Will monitor Diet: DMII/HH DVT prophylaxis: Heparin drip Disposition: PT/OT ordered post op Full code Admission and Anticipated Discharge Date Admission Date: November 22, 2023 Subjective Pt seen with at bedside. Stated he was in pain, requesting morphine. Chart review shows pt has been getting 15mg of morphine IR. Per pt has been getting 1.5mg. Pt switched into atrial fibrillation last evening- asymptomatic. On Heparin drip, rate controlled. Per nursing pt flipping into episodes of atrial flutter, asymptomatic before going back into paced rhythm. Review of Systems Review of Systems: All systems reviewed & are unremarkable except as noted in Subjective Physical Exam Physical Exam: General: sleepy. No acute distress Skin: left foot bandaged Psych: mood and affect could not be determined Neuro: No gross deficits HEENT: NC/AT Chest: Nontender to palpation. CV: RRR Resp: Breath sounds clear bilaterally, no increased effort of breathing. Abdomen: Soft, nontender, nondistended. Extremities: left foot bandaged Results & Data Results & Data Vital Signs (Past 12 Hours) Vital Signs Temp Pulse Pulse Resp BP Pulse Ox O2 Del Method 11/26/23 15:47 79 11/26/23 15:08 37.2 C 78 16 107/52 L 94 Room Air 11/26/23 11:26 37.3 C 93 H 16 105/52 L 92 Room Air 11/26/23 07:24 36.6 C 75 18 116/54 L 93 Room Air 11/26/23 07:19 73
[2023-11-26] MEDS: LANTUS PER UNIT CHARGE SC SCH (20:50)
[2023-11-27 06:13] LABS: Basophils # (auto) 0.01 K/uL (0.00-0.20); Basophils % (auto) 0.2 %; Eosinophils # (auto) 0.08 K/uL (0.00-0.50); Eosinophils % (auto) 1.5 %; Hematocrit (blood only) 25.5 % (42.0-52.0); Hemoglobin 8.3 g/dl (14.0-18.0); Immature Granulocytes # (auto) 0.06 K/uL (0.01-0.20); Immature Granulocytes % (auto) 1.1 %; Lymphocytes # (auto) 0.98 K/uL (1.20-3.40); Lymphocytes % (auto) 18.5 %; Mean Corpuscular Hgb Conc 32.5 g/dL (32.0-36.0); Mean Corpuscular Volume 95.1 fL (80.0-100.0); Mean Platelet Volume 11.6 fL (9.4-12.4); Monocytes # (auto) 0.64 K/uL (0.11-0.59); Monocytes % (auto) 12.1 %; Neutrophils # (auto) 3.53 K/uL (1.40-6.50); Neutrophils % (auto) 66.6 %; Nucleated RBC # (auto) 0.02 K/uL (0.00-0.12); Nucleated RBC % (auto) 0.4 %; Platelet Count 87 K/uL (130-400); RDW Coefficient of Variation 16.8 % (11.5-14.5); RDW Standard Deviation 57.6 fL (36.4-46.3); Red Blood Count 2.68 M/uL (4.70-6.10)
[2023-11-27 06:23] LABS: Albumin Globulin Ratio 1.4 (0.9-2); Albumin Level 3.6 gm/dl (3.4-5.0); BUN Creatinine Ratio 15.3 (10-20); Bilirubin,Total 0.6 mg/dl (0.2-1.0); Calcium 8.7 mg/dl (8.6-10.3); Creatinine Clr Calc Pharmacy 75.1 ml/min; Est GFR (African American) 97.4 ml/min; Globulin 2.6 gm/dl (2.5-4.0); Magnesium 1.7 mg/dl (1.7-2.4); Phosphorus 2.8 mg/dl (2.5-4.9); Potassium 3.7 mmol/L (3.5-5.1); Total Protein 6.2 gm/dl (6.0-8.3)
[2023-11-27 06:34] LABS: ANTI-Xa, UFH(UnfractionatedHep 0.28 IU/ml (0.3-0.7)
[2023-11-27] MEDS: LANTUS PER UNIT CHARGE SC SCH (08:37)
[2023-11-27] MEDS ORDERED: LANTUS PER UNIT CHARGE SC SCH (09:00)
--- NOTE | 2023-11-27 09:09 | Pharmacy Report ---
Pharmacy Glycemic Short Note 2 - Date of Service November 27, 2023 - Glycemic Short BSG Results (Last 24 hours): 11/26/23 11/26/23 11/26/23 11:40 16:14 20:37 Glucose POC Glucose 254 H 155 H 198 H 11/27/23 11/27/23 05:30 07:22 Glucose 191 H POC Glucose 189 H OUTPATIENT ANTIDIABETIC REGIMEN: * Basaglar 45 units SC PM * Novolog per sliding scale (per teaching fellow note: takes throughout the day when Dexcom alarms) * Victoza 1.2 mg SC daily * HbA1c: 6.2% (11/22/23) ASSESSMENT: 11/27: * Mr. Hernandez received 67 units of insulin yesterday, 30 basal + 37 bolus. BSGs were: 316-180-031-198 mg/dL. * Fasting BSG is 189 mg/dL this AM. Will increase basal by 30%. * BSGs were reasonable following tighter CF/CR yesterday evening. Will continue with current orders. * Stressors remain stable. 11/26: * RB is a 78 year old male POD #1 s/p left 2nd toe amputation secondary to diabetic foot ulcer * Pharmacy consulted for glycemic management in postoperative period * Blood sugars have been reasonably controlled w/ intermittent periods of hyperglycemia * Heparin gtt (mixed in dextrose) currently infusing, likely will be switched back to Eliquis in postop period if no further intervention is required * Will allow for increased basal insulin today and will tighten Novolog parameters PLAN FOR INPATIENT GLYCEMIC CONTROL: * Basal insulin * Lantus 20 units SC BID * Bolus insulin * NovoLog per scale ACHS or Q6hrs while NPO * Goal Range: Low 110 mg/dL - High 140 mg/dL * Correction Factor: 20 mg/dL/unit * Nutritional / Prandial insulin per carb ratio of 1 unit per 6 grams CHO consumed
[2023-11-27] MEDS: MoRPHine SULFATE IR 15 MG TAB (IMMEDIATE RELEASE) PO ONE (10:18)
--- NOTE | 2023-11-27 11:20 | Cardiology Progress Note ---
Date of Service November 27, 2023 Assessment & Plan (1) Paroxysmal atrial fibrillation: (2) Chronic heart failure with reduced ejection fraction and diastolic dysfunction: (3) CAD (coronary artery disease): (4) PVD (peripheral vascular disease): (5) Tachy-noman syndrome: Plan 78-year-old patient admitted due to gangrene of the left second toe. Amputation performed 11/25/2023 without complication. Asymptomatic episodes of paroxysmal atrial fibrillation and controlled ve ntricular response recorded on telemetry. Appears compensated from a heart failure perspective. Give additional 20 mEq of oral potassium chloride this morning. Resume Eliquis 5 mg twice daily if no further invasive procedures are scheduled. Continue other cardiovascular medications including atorvastatin, digoxin, furosemide, and metoprolol succinate. No further inpatient cardiac testing or intervention recommended at this time. Routine outpatient cardiology follow-up as scheduled. Admission and Anticipated Discharge Date Admission Date: November 22, 2023 Subjective Patient seen examined the bedside. Paroxysmal atrial fibrillation with heart rates in the 80s-90s recorded overnight. No symptoms. Feeling well from a cardiovascular perspective. Denies chest pain or shortness of breath. No palpitations, lightheadedness, or dizziness. Denies orthopnea, or PND. Pain well-controlled postoperatively. Review of Systems Review of Systems: All systems reviewed & are unremarkable except as noted in Subjective Physical Exam Constitutional: well nourished; no acute distress Respiratory: no respiratory distress, no labored breathing and no retractions Cardiovascular: Rate/Rhythm: regular rate and regular rhythm Heart Sounds: normal S1, normal S2 and + murmur (1/6 holosystolic murmur heard best at the apex) Vessels: radial pulses present; no JVD and no carotid bruit Extremities: no edema Gastrointestinal (Abdomen): Inspection/Auscultation: normal bowel sounds; abdomen not distended Percussion/Palpation: abdomen soft; abdomen nontender, no guarding and abdomen not rigid Neurologic: CN's II-XI intact bilaterally and moves all extremities; no focal motor deficits Results & Data Vital Signs (Past 12 Hours) Vital Signs Temp Pulse Pulse Resp BP Pulse Ox O2 Del Method 11/27/23 08:00 91 H 11/27/23 07:20 37.3 C 80 20 128/66 93 Room Air 11/27/23 03:47 37.1 C 93 H 18 118/61 90 Room Air 11/26/23 23:39 36.8 C 79 18 126/65 91 Room Air Laboratory Results Cardiac Enzymes 11/27/23 Range/Units 05:30 AST 15 (13-39) U/L CBC 11/27/23 Range/Units 05:30 WBC 5.30 (4.8-10.8) K/ul RBC 2.68 L (4.70-6.10) M/uL Hgb 8.3 L (14.0-18.0) g/dl Hct 25.5 L (42.0-52.0) % Plt Count 87 L (130-400) K/uL Neut # (Auto) 3.53 (1.40-6.50) K/uL Lymph # (Auto) 0.98 L (1.20-3.40) K/uL Brooke # (Auto) 0.64 H (0.11-0.59) K/uL Eos # (Auto) 0.08 (0.00-0.50) K/uL Baso # (Auto) 0.01 (0.00-0.20) K/uL Comprehensive Metabolic Panel 11/27/23 Range/Units 05:30 Sodium 136 (136-145) mmol/L Potassium 3.7 (3.5-5.1) mmol/L Chloride 103 (98-107) mmol/L Carbon Dioxide 23 (21-32) mmol/L BUN 13 (6-23) mg/dl Creatinine 0.85 (0.6-1.4) mg/dl Glucose 191 H (70-99(Fasting)) mg/dl Calcium 8.7 (8.6-10.3) mg/dl AST 15 (13-39) U/L ALT 16 (7-52) U/L Alkaline Phosphatase 38 (34-104) U/L Total Protein 6.2 (6.0-8.3) gm/dl Albumin 3.6 (3.4-5.0) gm/dl Intake and Output 11/26/23 11/27/23 11/27/23 22:59 06:59 14:59 Intake Total 420 / 1672.133 783.333 / 1672.133 106.667 / 106.667 Output Total 800 / 2600 600 / 2600 700 / 700 Balance -380 / -927.867 183.333 / -927.867 -593.333 / -593.333 Intake: IV 543.333 / 652.133 106.667 / 106.667 Heparin Sodium/Dextrose 25,000 543.333 / 652.133 106.667 / 106.667 units In 500 ml @ 1,250 UNITS/ HR 25 mls/hr IV .Q20H [facility] Rx#: [id number] Oral 420 / 1020 240 / 1020 Output: Urine 800 / 2600 600 / 2600 700 / 700 Other: Weight 73 kg Weight Measurement Method Built in [facility] (3) CAD (coronary artery disease) Coronary Disease-Associated Artery/Lesion type: [place] artery [place] vs. transplanted heart: [place] heart Associated angina: with stable angina Qualified Code(s): I25.118 - Atherosclerotic heart disease of [place] coronary artery with other forms of angina pectoris
--- NOTE | 2023-11-27 11:33 | Discharge Summary ---
Discharge Summary Date of Service November 27, 2023 Notes For Next Care Provider Please ensure close follow up with Cardiology Please ensure adequate diabetic management Medication Changes From Visit Discontinued antibiotics post amputation. Admission HPI Per Admitting Provider 78-year-old male with past medical history significant for type 2 diabetes, hyperlipidemia, peripheral neuropathy, COPD, interstitial lung disease, paroxysmal atrial fibrillation, chronic systolic and diastolic CHF, tachybradycardia syndrome s/p pacemaker, history of CAD s/p CABG, GERD, CKD stage III, multiple myeloma on chemo, presents with necrotic left second toe. Patient underwent amputation of the distal phalanx of left second toe on 10/22/2023 secondary to osteomyelitis. And when sutures were removed on Nov 08 2023 wound dehiscence was noted. Following with the wound care. Has a follow- up appoint with podiatry on November 22, 2023. Also seen by vascular medicine on October 14, 2023 prior to surgery. 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 Comes to the ER today because of discoloration of the second left toe. Toe is dark in color. Some mild oozing seen. Patient says because of multiple procedures to the left foot he did not have any sensations. Denies any fevers. Hemodynamics are stable. Denies any chest pain or shortness of breath. No cough. Currently no abdominal pain. Somewhat constipated. Denies any bloody stools. Normal micturition. No headache. No earache or runny nose or nose or sore throat. No cough. Resting comfortably. Past medical history. As mentioned above Past surgical history. Left bone marrow biopsy, CABG, colonoscopy, ostectomy first metatarsal left side, ORIF left foot MTPJ, revision of MTP joint, IR biopsy, Mohs surgery stage I, relieve inner eye pressure, bilateral cataract surgery, total hip replacement. Family history. Brother had lung cancer. Mother had lymphoma. Social history. . Quit smoking 1980s. Smoked 1.5 packs a day for 25 years. No alcohol currently. Medical marijuana. Admission Exam Per Admitting Provider General- Not in distress Head- atraumatic Eyes- PERRL. ENT- oropharynx clear Neck- supple, no JVD. Lungs- clear to auscultation no wheezing or crackles. Heart- regular rhythm; no murmur, no gallop Abdomen- normal bowel sounds, soft, nontender, no distension. Extremities- Left second toe is gangrenous with mild drainage seen and erythema surrounding foot Neuro- alert, oriented x 3; PERRL no facial palsy; no dysarthria; moves ext remities. Principal Dx & Hospital Course #1 = Principal Diagnosis (1) Ischemic necrosis of toe: Plan 78-year-old male with past medical history significant for type 2 diabetes, hyperlipidemia, peripheral neuropathy, COPD, interstitial lung disease, paroxysmal atrial fibrillation, chronic systolic and diastolic CHF, tachybradycardia syndrome s/p pacemaker, history of CAD s/p CABG, GERD, CKD stage III, multiple myeloma on chemo, presents with necrotic left second toe. Patient underwent amputation of the distal phalanx of left second toe on 10/22/2023 secondary to osteomyelitis. And when sutures were removed on Nov 08 2023 wound dehiscence was noted. Followed with wound care. Also seen by vascular medicine on October 14, 2023 prior to surgery. 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 Gangrene of left second toe Past history as above; amputation of distal phalanx of left second toe in October 2023 secondary to osteomyelitis Dark discoloration of left second toe consistent with gangrene Was initially treated with IV antibiotics vancomycin and Zosyn Previous provider discussed with podiatry; recommended cardiology evaluation and vascular evaluation prior to intervention. Amputation was scheduled for 11/25/23 Previous provider discussed with Dr. Campo from vascular medicine; no intervention on the popliteal artery for the time being; okay to proceed with surgery. Advised to follow up if there were wound healing issues in the future. Previous provider discussed with Dr. Lane from cardiology; he recommended heparin bridging for atrial fibrillation. Continue beta-annika uninterrupted. No additional cardiac workup prior to procedure. -s/p amputation of left second toe on 11/25/2023 with podiatry -pathology pending at time of discharge -given infectious source removed, empiric antibiotics were discontinued PT/OT- recommend going home Pain control with home po morphine after discharge- pt stated that he had enough doses at home for at least a week as he has been taking them nightly, rather than q4h prn which was prescribed in an attempt to not use the narcotic as frequently. PCP, Podiatry and wound care follow up after discharge recommended. Paroxysmal atrial fibrillation Tachybradycardia syndrome s/p pacemaker On digoxin, Toprol-XL Held Eliquis perioperatively, pt was placed on a heparin drip. Transitioned back to home Eliquis 5mg BID on day of discharge. Continue with this at home. Notified on 11/25 that pt had flipped into atrial fibrillation from paced rhythm. Also occasionally going into atrial flutter. Seen by Cardiology- recommended the following: -Continue his current medications of atorvastatin, digoxin, furosemide, and metoprolol succinate. -No further inpatient cardiac testing or intervention recommended at this time. -Routine outpatient cardiology follow-up as scheduled. Cardiology and PCP followup after discharge Chronic systolic and diastolic CHF Echo from June 2023 EF 35 to 40%, moderate mitral regurgitation, moderate aortic valve sclerosis. Moderate dilated left atrium Currently on Lasix 3 times a week which will be continued Cardiology follow up as above Type 2 diabetes Hgba1c of 6.2 on Nov 22 Pt with elevated glucose levels while hospitalized Basal/bolus per protocol, glycemic consult was placed. Resume home meds on discharge with pcp follow up Hypertension Stable Continue home medications as above Hyperlipidemia On statin History of CAD s/p CABG On beta-annika and statin CKD stage III Cr currently wnl Avoid nephrotoxic agents/contrast as able PCP follow up Multiple myeloma Maintenance Chemo was recently restarted Revlimid was held while hospitalized and perioperatively Follow-up with heme-onc after discharge History of COPD Interstitial lung disease Stable Discharge Exam General: Alert. No acute distress Skin: left foot bandaged Psych: appropriate mood and affect Neuro: No gross deficits HEENT: NC/AT Chest: Nontender to palpation. CV: RRR Resp: Breath sounds clear bilaterally, no increased effort of breathing. Abdomen: Soft, nontender, nondistended. Extremities: left foot bandaged Updated Medication List Medication Instructions Recorded Confirmed Type apixaban 5 mg tablet (Eliquis) 5 mg PO BID 06/25/20 11/21/23 History atorvastatin 40 mg tablet 40 mg PO QAM 06/25/20 11/21/23 History liraglutide 0.6 mg/0.1 mL (18 mg/3 1.2 mg subcut DAILY 09/30/21 11/21/23 History mL) subcutaneous pen injector (Victoza 2-Jed) ondansetron 8 mg disintegrating 8 mg PO Q8H PRN Nausea 09/30/21 11/21/23 History tablet prochlorperazine maleate 10 mg 10 mg PO Q6H PRN nausea 09/30/21 11/21/23 History tablet polyethylene glycol 3350 17 gram 17 g PO DAILY PRN constipation #15 10/05/21 11/21/23 Rx oral powder packet (Miralax) ea nitroglycerin 0.4 mg sublingual 0.4 mg sublingual .Q 5 MIN PRN 11/01/21 11/21/23 History tablet Chest Pain omega-3 fatty acids 1,000 mg 1,000 mg PO BID 04/15/22 11/21/23 History capsule docusate sodium 100 mg capsule 100 mg PO BID PRN Constipation 04/22/22 11/21/23 History (Colace) gabapentin 300 mg capsule 300 mg PO BID 04/22/22 11/21/23 History mecobalamin (vitamin B12) 1,000 1,000 mcg PO QAM 04/22/22 11/21/23 History mcg chewable tablet (B12 Active) morphine 15 mg immediate release 15 mg PO Q4H PRN Pain 04/22/22 11/21/23 History tablet digoxin 125 mcg (0.125 mg) tablet 125 mcg PO Q2D 11/04/22 11/21/23 History lenalidomide 10 mg capsule 10 mg PO DIRECTED 11/04/22 11/21/23 History (Revlimid) potassium chloride 20 mEq 20 meq PO BID 11/04/22 11/21/23 History tablet,extended release(part/cryst) sennosides 8.6 mg tablet (senna) 17.2 mg PO HS PRN Constipation 11/04/22 11/21/23 History insulin aspart U-100 100 unit/mL 15 unit subcut TIDM 12/31/22 11/21/23 History (3 mL) subcutaneous pen (Novolog FlexPen U-100 Insulin aspart) insulin glargine 100 unit/mL (3 45 unit subcut QPM 12/31/22 11/21/23 History mL) subcutaneous pen (Basaglar KwikPen U-100 Insulin) dexamethasone 4 mg tablet 20 mg PO WK 06/25/23 11/21/23 History mirtazapine 30 mg tablet 30 mg PO HS 06/25/23 11/21/23 History omeprazole 20 mg capsule,delayed 20 mg PO QAM 06/25/23 11/21/23 History release linaclotide 145 mcg capsule 145 mcg PO DAILY 07/28/23 11/21/23 History (Linzess) furosemide 20 mg tablet (Lasix) 20 mg PO UD #30 tabs 07/29/23 11/21/23 Rx metoprolol succinate 25 mg 25 mg PO QAM 08/20/23 11/21/23 History tablet,extended release 24 hr metoprolol succinate 50 mg 50 mg PO BID 08/20/23 11/21/23 History tablet,extended release 24 hr (Toprol XL) calcium carbonate 600 mg-vitamin 1 tab PO DAILY 11/16/23 11/21/23 History D3 10 mcg (400 unit) tablet (Calcium 600 + D(3)) doxycycline hyclate 100 mg tablet 100 mg PO bid #28 tabs 11/18/23 11/21/23 Rx Hospital Stay Data Consultations 11/21/23 23:16 ED Decision to Admit Stat 11/22/23 08:00 Consult Podiatry Routine 11/22/23 17:45 Consult Vascular Surgery Routine 11/23/23 07:51 Consult Cardiology Routine Procedures Performed Operation Date: 11/25/23 10:20 Actual Procedures p Left 2nd Toe Amputation(Left) - Bao Orellana DPM Diagnostic Imagining Performed 11/23/23 18:04 US arterial duplex LE LT Routine Toe X-Ray 11/21/23 21:21 XR toe(s) LT min 2V CLINICAL HISTORY: 2nd toe black COMPARISON STUDY: Left second toe 09/28/2023. FINDINGS: Interval amputation of the distal phalanx of the left second toe. Mild soft tissue swelling and a small skin ulceration at the distal second toe. No underlying bony destruction to suggest an osteomyelitis. No fracture or dislocation. Postoperative changes again noted at the first MTP joint. IMPRESSION: 1. Interval amputation of the distal phalanx of the left second toe. 2. Mild soft tissue swelling and a small skin ulceration at the distal left second toe. 3. No evidence for osteomyelitis. ACT 112: Negative or not required by law. Electronically signed by: Sloan Dang M.D. 11/22/2023 6:42 AM Duplex Scan Lower Extremity Artery 11/23/23 18:04 US arterial duplex LE LT CLINICAL HISTORY: Diabetic foot ulcer, toe pressure if possible COMPARISON STUDY: Left leg arterial Doppler study 04/15/2018. FINDINGS: The right ankle-brachial index measured 1.1 and the left ankle- brachial index measures 0.65. This is similar to the prior study. Toe pressures were unable to be obtained by the technologist. Scattered calcified plaque again noted within the left lower extremity arterial system. There are normal velocities and biphasic to triphasic waveforms seen within the left common femoral and left superficial femoral arteries. Normal velocities and waveforms within the proximal left popliteal artery. The distal left popliteal artery is completely occluded. Distal to this area of occlusion there are monophasic normal to low velocity waveforms seen within the left calf arteries and dorsalis pedis artery. IMPRESSION: 1. Focal area of occlusion seen within the distal left popliteal artery. 2. This likely accounts for the monophasic normal to low velocity waveforms within the left calf arteries and left dorsalis pedis artery. ACT 112: Negative or not required by law. Electronically signed by: Sloan Dang M.D. 11/24/2023 7:39 AM Discharge Instructions Given to Patient (Per Discharging Provider) Mr. Hernandez, You were admitted with a necrotic second toe. This toe was removed while you were here and we are discharging you home. Please continue with pain control at home with your morphine tablets. You indicated that you had enough at home for the next week. While you were here, we also noticed that your heart would go into atrial fibrillation occasionally. You have a pacemaker. You were seen by Cardiology and they recommended continuing with your current medications. Please re-start your home Eliquis or blood thinner TONIGHT by taking one 5mg dose. Continue with it twice a day after that as prescribed. Please keep close follow up with Cardiology after discharge. Please keep close follow up with your primary care provider as well after discharge. Please do not hesitate to come back to the emergency room if your symptoms worsen or return. It was a pleasure taking care of you while you were here. Total Time Total Time Spent Total Time Spent (In Minutes): > 30 minutes
[2023-11-27] MEDS: APIXABAN 5 MG TABLET PO ONE (12:06)
[2023-11-27] MEDS: POTASSIUM CHLORIDE CRTAB 20 MEQ TABCR PO STA (12:06)
--- NOTE | 2023-12-10 11:25 | Operative Report ---
Post Operative Report Pre & Post Diagnosis Operation Date: 11/25/23 10:20 Pre-Op Diagnosis: Necrotic Left Second Toe Post-Op Diagnosis: Necrotic Left Second Toe I identified the patient and participated in the time-out.: Yes Procedure Operation Date: 11/25/23 10:20 Actual Procedures p Left 2nd Toe Amputation(Left) - Bao Orellana DPM Surgeon Bao Orellana DPM Personal Property Assessor None Estimated Blood Loss 10 Findings Consistent with Post-Op Diagnosis Specimens Left second toe sent for pathology Anesthesia Type MAC Complications none Disposition Accompanied Patient To Recovery: Yes Disposition: Recovery Room Indications This patient is a long-standing patient of our practice who presented to the hospital with worsening necrosis changes to his second toe. She has previously healed a surgical intervention to this digit recently developed a wound which was less improved with wound care. Over the last few days he has noticed a drastic increase in the darkness of the toe and presented to the emergency department for treatment. Dry gangrene diffusely to the level of the proximal phalanx. We did discuss At this toe would need amputated as it is no longer viable. Patient is amenable to this. Preoperative instructions, postoperative instructions, relative rest and outcomes were all discussed at length that this visit. All questions were answered. Consent was obtained for this left second toe amputation. Description of Procedure The patient was brought to the operating room and placed on the operating table in the supine position. Following administration of IV sedation, local analgesia was obtained utilizing 20 cc of half percent Marcaine plain in digital block. The left lower extremity was scrubbed, prepped, and draped in the usual aseptic manner. No tourniquet was utilized as he is already extremely avascular to the lower extremity. Attention was directed to the left forefoot where the necrotic second toe was immediately identified. 2 converging semielliptical incisions were made circumferentially around the digit at the level of the middle of the proximal phalanx, proximal to the level of necrosis. The incision was carried down utilizing sharp dissection techniques to the level of the metatarsophalangeal joint. It was here that the digit was disarticulated and passed off to the back table. The toe will be sent in formalin for permanent pathology specimen. No proximal evidence of infection or ischemia was noted. No significant blood loss was appreciated on surgical dissection. The incision site was flushed with copious amounts of sterile saline. The surgical site was reapproximated utilizing 2-0 nylon in a simple interrupted fashion. The incision was dressed with Xeroform gauze, 4 x 4 gauze, Kerlix, and an Gustabo wrap. The Gustabo wrap was only loosely adhered to prevent significant compression to the lower extremity. The patient tolerated the procedure well and was transferred to the stable and vascular status intact to the feet. Patient was given instructions which were discussed with him prior to surgery. Patient understands and will schedule follow up accordingly. I attest to the content of the Intraoperative Record and any orders documented therein. Any exceptions are noted below.
== END 2023-11-27 13:28 | disposition home or self-care (01) | DRG 256 ==
LOC: ED 19:46 → EDINP 11-22 02:06 → SUATTDRO 11-22 02:06 → 2N 11-22 02:33 → 2S 11-26 00:23

== ENCOUNTER 2024-02-14 13:21 | Inpatient (IN) ==
--- NOTE | 2024-02-14 14:28 | Emergency Department Note ---
Impression & Plan Anemia ADMIT ED Provider Note HPI: History obtained from patient. The patient is a 78-year-old gentleman with history of multiple myeloma, currently on chemotherapy, who presents to the emergency department with a chief complaint of dyspnea on exertion and hemoptysis. Patient states he has had the symptoms for about the past week. Patient states that today he did have some hemoptysis. Patient denies any chest pain. On arrival here to the ED the patient is hemodynamically stable, he is saturating well on room air. Patient states that when he coughs he gets some bloody sputum but denies any large- volume hemoptysis. Patient denies any vomiting. ROS: - Per HPI Differential Diagnosis: Symptomatic anemia, pulmonary embolism, lung mass/lung cancer, acute bronchitis, pneumonia,, amongst other potential pathologies. *Outpatient medications and allergy history reviewed. PE: General: Alert HEENT: Normocephalic, trachea midline Eyes: Extraocular eye movement is intact, no scleral erythema Pulmonary: Clear to auscultation bilaterally, no wheezing Cardio: Regular rate and rhythm GI: Abdomen is soft to palpation : No suprapubic tenderness MSK: No evidence of trauma or malformation of the extremities, no edema Skin: No evidence of rash Neuro: Alert, no focal deficits Psychiatric: Cooperative INDEPENDENT INTERPRETATIONS: night monitor: (As interpreted by myself): - An order was placed for continuous cardiac monitoring - Patient was noted to be in sinus rhythm with a rate of 80 EKG: (As interpreted by myself): Rate: 80 Rhythm: Sinus rhythm Intervals: Within normal limits ST changes: No ST elevation Time: 1341 Chest x-ray: (As interpreted by myself): -Mild pulmonary vascular congestion Interventions provided in ED: -IV fluid bolus, IV ceftriaxone, IV azithromycin Medical Decision Making: IV was established and lab work obtained, patient was placed on hospital monitor. Lab work shows a mild leukopenia at 3.15, hemoglobin is lower than baseline at 7.1, platelet count is lower than baseline at 39, CMP does not show any critical findings. Troponin is negative. BNP is mildly elevated at 348. Given the patient's mopped assist CT angiography of the chest was obtained that does not show any evidence of pulmonary embolism. Patchy airspace opacity is noted at the bilateral lung bases. Given the patient's cough and leukopenia I do of suspicion for pneumonia. Blood cultures were drawn and the patient was treated with IV ceftriaxone and IV azithromycin. Patient states he is having difficulty walking even short distances before becoming very short of breath. I discussed this with the patient's hematology/oncology provider, Dr. Lobato, and he does recommend admission and transfusion for possible symptomatic anemia at this time to which I am in agreement. I discussed this with the patient and he is also in agreement. I did receive word from the blood bank that there will be a delay in transfusion as the patient's blood has to come from the [facility] secondary to the fact that he is on Darzalex. Patient is hemodynamically stable at this time. I discussed the patient's presentation with the on-call admitting provider for the [facility], Ingris Tracy Pa-c, and the patient was placed for admission in stable condition to the service of Dr. Waggoner. Consultants/Discussions held with other healthcare providers: -Hospitalist, Dr. Waggoner -Hematology/oncology, Dr. Lobato Disposition discussion held by myself with: -Patient Diagnosis: 1. Symptomatic anemia, acute 2. Hemoptysis, acute 3. Bilateral pneumonia, acute 4. History of multiple myeloma 5. Elevated BNP 6. Thrombocytopenia, acute on chronic 7. Leukopenia, acute on chronic Disposition: Admission Cyril Sosa DO Emergency Medicine Past Med/Surg History Medical History (Updated 02/14/24 @ 17:30 by Cyril Sosa DO) Diabetic ulcer of left foot COPD (chronic obstructive pulmonary disease) CKD (chronic kidney disease) stage 3, GFR 30-59 ml/min Multiple myeloma f/u oncology at [facility] Congestive heart failure Immunocompromised Interstitial lung disease PAF (paroxysmal atrial fibrillation) pacemaker placed in 2019 Diabetic ulcer of left foot Chronic deep vein thrombosis (DVT) LLE Diarrhea Pneumonia [facility] admission 08/2023 NSTEMI (non-ST elevated myocardial infarction) Per remote records History of pilonidal cyst Pacemaker Implanted 2019 History of melanoma in situ right bahai HLD (hyperlipidemia) CAD (coronary artery disease) s/p CABG x4 (age 48) Follow[address] with Dr[address] Lane/[facility] Type 2 diabetes mellitus IDDM Surgical History Hallux rigidus of left foot multiple surgeries Hx of colonoscopy S/P surgical removal of pilonidal cyst Hx of melanoma excision many years ago; right bahai Status post total hip replacement, left History of bone marrow biopsy early 2022 History of cataract surgery R/L S/P CABG x 4 Age 48 S/P Mohs surgery for basal cell carcinoma Family History Mother Lymphoma Social History Smoking Status: Never smoker Tobacco Type: Cigarettes Second Hand Exposure: Yes ( smokes); Do You Dip or Chew Tobacco: No; Hx Alcohol Use: Yes Alcohol type: wine Alcohol Intake Frequency: Monthly or Less Hx Substance Use: No Preferred Language: Kenyan Communication Ability: Effective Visual Impairment: No Limitations Hearing Ability: Normal Cans Vacuum Tester Required: No Beliefs That Will Affect Care: None marital status: Current Living Situation: Spouse Current Living Situation Comment: home current occupational status: retired How many Children do You have: 1 How many Children do You have Comment: Magi lives in [facility]. able to assist with care as needed. Feels Safe at Home: Yes Diet: regular Diet Comment: Trying to gain weight caffeine: No during the past year weight has: decreased > 10 lbs Assistive Devices: None Allergies Allergies Allergy/AdvReac Type Severity Reaction Status Date / Time tizanidine AdvReac Intermediate "Woozy" Verified 02/14/24 15:54 feeling Home Meds Home Medications Medication Instructions Recorded Confirmed apixaban 5 mg tablet (Eliquis) 5 mg PO BID 06/25/20 02/14/24 atorvastatin 40 mg tablet 40 mg PO QAM 06/25/20 02/14/24 liraglutide 0.6 mg/0.1 mL (18 mg/3 1.2 mg subcut DAILY 09/30/21 02/14/24 mL) subcutaneous pen injector (Victoza 2-Jed) ondansetron 8 mg disintegrating 8 mg PO Q8H PRN Nausea 09/30/21 02/14/24 tablet prochlorperazine maleate 10 mg 10 mg PO Q6H PRN nausea 09/30/21 02/14/24 tablet nitroglycerin 0.4 mg sublingual 0.4 mg sublingual .Q 5 MIN PRN 11/01/21 02/14/24 tablet Chest Pain omega-3 fatty acids 1,000 mg 1,000 mg PO BID 04/15/22 02/14/24 capsule docusate sodium 100 mg capsule 100 mg PO BID PRN Constipation 04/22/22 02/14/24 (Colace) gabapentin 300 mg capsule 300 mg PO BID 04/22/22 02/14/24 mecobalamin (vitamin B12) 1,000 1,000 mcg PO QAM 04/22/22 02/14/24 mcg chewable tablet (B12 Active) morphine 15 mg immediate release 15 mg PO Q4H PRN Pain 04/22/22 02/14/24 tablet digoxin 125 mcg (0.125 mg) tablet 125 mcg PO Q2D 11/04/22 02/14/24 lenalidomide 10 mg capsule 10 mg PO .HOLD 11/04/22 02/14/24 (Revlimid) potassium chloride 20 mEq 20 meq PO BID 11/04/22 02/14/24 tablet,extended release(part/cryst) sennosides 8.6 mg tablet (senna) 17.2 mg PO HS PRN Constipation 11/04/22 02/14/24 insulin glargine 100 unit/mL (3 45 unit subcut QPM 12/31/22 02/14/24 mL) subcutaneous pen (Basaglar KwikPen U-100 Insulin) mirtazapine 30 mg tablet 30 mg PO HS 06/25/23 02/14/24 omeprazole 20 mg capsule,delayed 20 mg PO QAM 06/25/23 02/14/24 release linaclotide 145 mcg capsule 145 mcg PO DAILY 07/28/23 02/14/24 (Linzess) metoprolol succinate 25 mg 25 mg PO QAM 08/20/23 02/14/24 tablet,extended release 24 hr metoprolol succinate 50 mg 50 mg PO BID 08/20/23 02/14/24 tablet,extended release 24 hr (Toprol XL) calcium carbonate 600 mg-vitamin 1 tab PO DAILY 11/16/23 02/14/24 D3 10 mcg (400 unit) tablet (Calcium 600 + D(3)) insulin lispro 100 unit/mL 0 sliding scale dose subcut TID 02/14/24 02/14/24 subcutaneous pen (Admelog SoloStar PRN .According to BSG U-) Previous Rx's Medication Instructions Recorded polyethylene glycol 3350 17 gram 17 g PO DAILY PRN constipation #15 10/05/21 oral powder packet (Miralax) ea furosemide 20 mg tablet (Lasix) 20 mg PO UD #30 tabs 07/29/23 Results & Data (ED) Vital Signs Vital Signs - 24 hr 02/14/24 13:27 02/14/24 14:05 02/14/24 14:53 Temperature 36.5 C Temperature Source Temporal Artery Scan Pulse Rate 75 75 Pulse Rate from SpO2 Sensor Respiratory Rate 20 Respiratory Effort / Characteristics Non-Labored Spontaneous Respiratory Depth Normal Blood Pressure 112/68 Blood Pressure Mean 82 Pulse Oximetry 95 Oxygen Delivery Method Room Air Sepsis Recent Fever Within 48 Hours No Sepsis New/Unexplained Change in Mental Status No Sepsis Action Taken by Nursing No Action Required 02/14/24 15:30 02/14/24 15:30 Temperature Temperature Source Pulse Rate 85 Pulse Rate from SpO2 Sensor 90 Respiratory Rate 12 Respiratory Effort / Characteristics Respiratory Depth Blood Pressure 104/55 L Blood Pressure Mean 68 Pulse Oximetry 96 Oxygen Delivery Method Room Air Sepsis Recent Fever Within 48 Hours Sepsis New/Unexplained Change in Mental Status Sepsis Action Taken by Nursing Laboratory Data 02/14/24 13:53 02/14/24 13:53 Lab Results 02/14/24 02/14/24 Range/Units 13:53 16:14 WBC 3.15 L (4.8-10.8) K/ul RBC 2.23 L (4.70-6.10) M/uL Hgb 7.1 L (14.0-18.0) g/dl Hct 22.1 L (42.0-52.0) % MCV 99.1 (80.0-100.0) fL MCH 31.8 (25.0-34.0) pg MCHC 32.1 (32.0-36.0) g/dL RDW Std Deviation 61.0 H (36.4-46.3) fL RDW Coeff of Collin 17.0 H (11.5-14.5) % Plt Count 39 L (130-400) K/uL MPV 12.9 H (9.4-12.4) fL Immature Gran % (Auto) 1.0 % Neut % (Auto) 59.0 % Lymph % (Auto) 24.8 % [place] % (Auto) 13.3 % Eos % (Auto) 1.9 % Baso % (Auto) 0.0 % Neut # (Auto) 1.86 (1.40-6.50) K/uL Lymph # (Auto) 0.78 L (1.20-3.40) K/uL [place] # (Auto) 0.42 (0.11-0.59) K/uL Eos # (Auto) 0.06 (0.00-0.50) K/uL Baso # (Auto) 0.00 (0.00-0.20) K/uL Immature Gran # (Auto) 0.03 (0.01-0.20) K/uL Polychromasia 1+ Tear Drop Cells 1+ Ovalocytes 1+ PT 12.6 H (9.0-12.0) Seconds INR 1.2 H (0.9-1.1) APTT 33 H (21-31) Seconds PTT Ratio 1.2 Sodium 135 L (136-145) mmol/L Potassium 4.4 (3.5-5.1) mmol/L Chloride 102 (98-107) mmol/L Carbon Dioxide 22 (21-32) mmol/L Anion Gap 11 (3-11) BUN 27 H (6-23) mg/dl Creatinine 1.04 (0.6-1.4) mg/dl Est Cr Clr Drug Dosing Not Reportable Est GFR ( Amer) 79.9 ml/min Est GFR (Non-Af Amer) 68.9 ml/min BUN/Creatinine Ratio 26.0 H (10-20) Glucose 195 H (70-99(Fasting)) mg/dl Calcium 9.5 (8.6-10.3) mg/dl Total Bilirubin 0.7 (0.2-1.0) mg/dl AST 39 (13-39) U/L ALT 73 H (7-52) U/L Alkaline Phosphatase 49 (34-104) U/L Troponin I High Sens 12.7 (0-20) pg/ml B-Natriuretic Peptide 348 H (0-100) pg/ml Total Protein 7.4 (6.0-8.3) gm/dl Albumin 3.8 (3.4-5.0) gm/dl Globulin 3.6 (2.5-4.0) gm/dl Albumin/Globulin Ratio 1.1 (0.9-2) Blood Type O Positive Crossmatch See Detail Administered Medications Azithromycin 500 mg/ Dextrose 255 mls @ 125 mls/hr IV NOW ONE Stop: 02/14/24 17:56 Last Admin: 02/14/24 17:19 Dose: 125 mls/hr Documented By: NATA Menthol (Cough Drop (Sugar Free) Eun 24 Eun/1 Box) 1 eun BUCCAL PRN PRN PRN Reason: Cough or Sore Throat Stop: 03/15/24 16:35 Last Admin: 02/14/24 17:19 Dose: 1 eun Documented By: Admin: 02/14/24 16:48 Dose: 1 eun Documented By: Admin: 02/14/24 16:40 Dose: 1 eun Documented By: NATA Discontinued Medications Ceftriaxone Sodium (Rocephin) 1,000 mg in 50 mls @ 100 mls/hr IV NOW STA Stop: 02/14/24 16:22 Last Infusion: 02/14/24 17:21 Dose: Infused Documented By: Admin: 02/14/24 16:38 Dose: 100 mls/hr Documented By: NATA Sodium Chloride (Nss) 500 mls @ 999 mls/hr IV .Q31M ONE Stop: 02/14/24 16:24 Last Admin: 02/14/24 16:39 Dose: 999 mls/hr Documented By: NATA Ioversol (Optiray 320 125ml) 118 ml IV ONCE ONE Stop: 02/14/24 15:06 Last Admin: 02/14/24 15:05 Dose: 118 ml Documented By: MAYELA Imaging Data Radiologist's Impression: Chest X-Ray 02/14/24 13:31 XR chest 1V portable HISTORY: 78 years-old Male Chest pain, nonspecific COMPARISON: 10/04/2023 TECHNIQUE: AP view of the chest FINDINGS: Cardiac silhouette is enlarged. Left subclavian pacer. Median sternotomy with mediastinal surgical clips. Pulmonary vascular congestion with lateral right lung interstitial coarsening. No pneumothorax, large pleural effusion or lobar airspace consolidation. Chronic appearing right-sided rib fractures. IMPRESSION: 1. Cardiomegaly with pulmonary vascular congestion. 2. Lateral right lung interstitial coarsening may be technical. Findings should be correlated clinically to exclude a nonspecific pneumonitis. ACT 112: Negative or not required by law. The above report was generated using voice recognition software. It may contain grammatical, syntax or spelling errors. Electronically signed by: Uziel Nieto M.D. 02/14/2024 2:28 PM Chest CTA 02/14/24 14:26 CT ANGIOGRAM OF THE CHEST CLINICAL HISTORY: Hemoptysis. COMPARISON STUDY: Chest x-ray dated 02/14/2024. Chest CT dated 08/23/2023. TECHNIQUE: Following the IV administration of 118 cc of Optiray 320, CT angiogram of the chest was performed from the upper abdomen to the thoracic inlet utilizing the pulmonary embolus protocol. Images are reviewed in the axial, sagittal, and coronal planes. 3-D MIPS images are created and assessed. IV contrast was administered without complication. A dose lowering technique was utilized adhering to the principles of ALARA. CT DOSE: 615.99 mGy.cm FINDINGS: Thyroid: Imaged portions of the thyroid gland are normal in size and attenuation. Thoracic aorta: There is atherosclerotic calcification of the thoracic aorta, which is normal in caliber and demonstrates standard 3-vessel arch anatomy. No dissection is seen. Pulmonary vasculature: The pulmonary trunk is normal in caliber. There are no filling defects identified in main, lobar, or segmental pulmonary branches to suggest pulmonary embolus. Heart: The patient is status post midline sternotomy. A cardiac pacemaker is noted in the left chest wall. The heart is enlarged and without pericardial effusion. Lungs and pleural spaces: There is moderate emphysematous change with apical bullae. Subpleural reticulation is seen throughout both lungs. Patchy airspace consolidation is present at both lung bases. The trachea and central airways appear clear. Foci of parenchymal scarring are again seen in the upper lobes, greater than right. No pleural effusion is seen. Mediastinum: There is no mediastinal lymphadenopathy. Keli: Clear. Axillae: There is no axillary lymphadenopathy. Upper abdomen: Partially visualized upper abdominal viscera is within normal limits. Skeletal structures: No pleural effusion is identified. The skeletal structures are heterogeneous. Degenerative change is noted in the shoulders and spine. No lytic or blastic bony lesions are clearly seen. There are chronic/healed right- sided rib fractures. There is also chronic deformity of the right scapula. IMPRESSION: 1. There is no evidence of pulmonary embolus in the main, lobar, or segmental pulmonary arteries. 2. Emphysema with chronic/fibrotic change as above. 3. Patchy airspace consolidation is seen at both lung bases. Correlate clinically for evidence of pneumonia/aspiration pneumonitis. A follow-up chest CT in 3-4 months time is recommended to document resolution. 4. Cardiomegaly and cardiac pacemaker. 5. Additional findings as above. ACT 112: Negative or not required by law. Electronically signed by: Dante Lopez M.D. 02/14/2024 3:19 PM Discharge Plan Visit Data Chief Complaint: Shortness of Breath/Dyspnea Stated Complaint: SOB, COUGHING UP BLOOD, CANCER PATIENT ED Provider: Cyril Sosa Discharge Problem: Anemia Forms Stand Alone Forms: [facility] Prescriptions Prescriptions: No Action atorvastatin 40 mg tablet 40 mg PO QAM Eliquis 5 mg tablet 5 mg PO BID insulin glargine [Basaglar KwikPen U-100 Insulin] 100 unit/mL (3 mL) insulin pen 45 unit SUBCUT QPM omega-3 fatty acids 1,000 mg Capsule 1,000 mg PO BID sennosides [senna] 8.6 mg Tablet 17.2 mg PO HS PRN (Reason: Constipation) digoxin 125 mcg (0.125 mg) tablet 125 mcg PO Q2D lenalidomide [Revlimid] 10 mg capsule 10 mg PO .HOLD Patient Comments: on hold currently (09/30/23) potassium chloride 20 mEq tablet,ER particles/crystals 20 meq PO BID calcium carbonate-vitamin D3 [Calcium 600 + D(3)] 600 mg-10 mcg (400 unit) tablet 1 tab PO DAILY Rx Instructions: ON HOLD WHILE ON DOXYCYCLINEPER PT'S prochlorperazine maleate 10 mg Tablet 10 mg PO Q6H PRN (Reason: nausea) ondansetron 8 mg Tablet,Disintegrating 8 mg PO Q8H PRN (Reason: Nausea) Victoza 2-Jed 0.6 mg/0.1 mL (18 mg/3 mL) Pen Injector 1.2 mg SUBCUT DAILY polyethylene glycol 3350 [Miralax] 17 gram Powder In Packet 17 g PO DAILY PRN (Reason: constipation) Qty: 15 0RF nitroglycerin 0.4 mg tablet, sublingual 0.4 mg sublingual .Q 5 MIN MDD 3 doses in 15 min PRN (Reason: Chest Pain) gabapentin 300 mg capsule 300 mg PO BID Rx Instructions: BID PER DR 1ST docusate sodium [Colace] 100 mg capsule 100 mg PO BID PRN (Reason: Constipation) morphine 15 mg tablet 15 mg PO Q4H PRN (Reason: Pain) mecobalamin (vitamin B12) [B12 Active] 1,000 mcg Tablet,Chewable 1,000 mcg PO QAM mirtazapine 30 mg tablet 30 mg PO HS omeprazole 20 mg capsule,delayed release(/EC) 20 mg PO QAM Linzess 145 mcg capsule 145 mcg PO DAILY furosemide [Lasix] 20 mg tablet 20 mg PO UD Qty: 30 0RF Rx Instructions: 3 times a week--on Wednesday, Wednesday and Wednesday only metoprolol succinate [Toprol XL] 50 mg tablet extended release 24 hr 50 mg PO BID Rx Instructions: Take Metoprolol 75mg QAM and 50mg QPM metoprolol succinate 25 mg tablet extended release 24 hr 25 mg PO QAM Rx Instructions: Take Metoprolol 75mg QAM and 50mg QPM insulin lispro [Admelog SoloStar U-100 Insulin] 100 unit/mL insulin pen 0 sliding scale dose SUBCUT TID PRN (Reason: .According to BSG) Referrals Referrals: Landen Macario DO [Primary Care Provider] - Discharge Problem: Anemia Qualifiers: Anemia type: unspecified type Qualified Code(s): D64.9 - Anemia, unspecified
[2024-02-14 14:29] LABS: Eosinophils # (auto) 0.06 K/uL (0.00-0.50); Eosinophils % (auto) 1.9 %; Hematocrit (blood only) 22.1 % (42.0-52.0); Hemoglobin 7.1 g/dl (14.0-18.0); Immature Granulocytes # (auto) 0.03 K/uL (0.01-0.20); Lymphocytes # (auto) 0.78 K/uL (1.20-3.40); Lymphocytes % (auto) 24.8 %; Mean Corpuscular Hemoglobin 31.8 pg (25.0-34.0); Mean Corpuscular Hgb Conc 32.1 g/dL (32.0-36.0); Mean Corpuscular Volume 99.1 fL (80.0-100.0); Mean Platelet Volume 12.9 fL (9.4-12.4); Monocytes # (auto) 0.42 K/uL (0.11-0.59); Monocytes % (auto) 13.3 %; Neutrophils # (auto) 1.86 K/uL (1.40-6.50); Platelet Count 39 K/uL (130-400); Red Blood Count 2.23 M/uL (4.70-6.10); White Blood Count 3.15 K/ul (4.8-10.8)
--- NOTE | 2024-02-14 14:30 | XRay Report ---
XR chest 1V portable HISTORY: 78 years-old Male Chest pain, nonspecific COMPARISON: 10/04/2023 TECHNIQUE: AP view of the chest FINDINGS: Cardiac silhouette is enlarged. Left subclavian pacer. Median sternotomy with mediastinal surgical cl ips. Pulmonary vascular congestion with lateral right lung interstitial coarsening. No pneumothorax, large pleural effusion or lobar airspace consolidation. Chronic appearing right-sided rib fractures. IMPRESSION: 1. Cardiomegaly with pulmonary vascular congestion. 2. Lateral right lung interstitial coarsening may be technical. Findings should be correlated clinica lly to exclude a nonspecific pneumonitis. ACT 112: Negative or not required by law. The above report was generated using voice recognition software. It may contain grammatical, syntax o r spelling errors. Electronically signed by: Uziel Nieto M.D. 02/14/2024 2:28 PM
[2024-02-14 14:46] LABS: Alanine Aminotransferase 73 U/L (7-52); Albumin Globulin Ratio 1.1 (0.9-2); Albumin Level 3.8 gm/dl (3.4-5.0); Alkaline Phosphatase 49 U/L (34-104); Anion Gap 11 (3-11); Aspartate Aminotransferase 39 U/L (13-39); Bilirubin,Total 0.7 mg/dl (0.2-1.0); Blood Urea Nitrogen 27 mg/dl (6-23); Calcium 9.5 mg/dl (8.6-10.3); Carbon Dioxide 22 mmol/L (21-32); Chloride 102 mmol/L (98-107); Est GFR (African American) 79.9 ml/min; Est GFR (Non-African American) 68.9 ml/min; Globulin 3.6 gm/dl (2.5-4.0); Glucose 195 mg/dl (70-99(Fasting)); Potassium 4.4 mmol/L (3.5-5.1); Sodium 135 mmol/L (136-145); Total Protein 7.4 gm/dl (6.0-8.3)
[2024-02-14 14:48] LABS: Ovalocytes 1+; Polychromasia 1+; Tear Drop Cells 1+
[2024-02-14 14:52] LABS: Troponin I High Sensitivity 12.7 pg/ml (0-20)
[2024-02-14 14:57] LABS: INR 1.2 (0.9-1.1); Partial Thromboplastin Ratio 1.2; Partial Thromboplastin Time 33 Seconds (21-31); Prothrombin Time 12.6 Seconds (9.0-12.0)
[2024-02-14] MEDS: OPTIRAY 320 125ml IV ONE (15:05)
--- NOTE | 2024-02-14 15:21 | CT Scan Report ---
CT ANGIOGRAM OF THE CHEST CLINICAL HISTORY: Hemoptysis. COMPARISON STUDY: Chest x-ray dated 02/14/2024. Chest CT dated 08/23/2023. TECHNIQUE: Following the IV administration of 118 cc of Optiray 320, CT angiogram of the chest was pe rformed from the upper abdomen to the thoracic inlet utilizing the pulmonary embolus protocol. Images are reviewed in the axial, sagittal, and coronal planes. 3-D MIPS images are created and assessed. I V contrast was administered without complication. A dose lowering technique was utilized adhering to the principles of ALARA. CT DOSE: 615.99 mGy.cm FINDINGS: Thyroid: Imaged portions of the thyroid gland are normal in size and attenuation. Thoracic aorta: There is atherosclerotic calcification of the thoracic aorta, which is normal in isidro xochitl and demonstrates standard 3-vessel arch anatomy. No dissection is seen. Pulmonary vasculature: The pulmonary trunk is normal in caliber. There are no filling defects identif ied in main, lobar, or segmental pulmonary branches to suggest pulmonary embolus. Heart: The patient is status post midline sternotomy. A cardiac pacemaker is noted in the left chest wall. The heart is enlarged and without pericardial effusion. Lungs and pleural spaces: There is moderate emphysematous change with apical bullae. Subpleural retic ulation is seen throughout both lungs. Patchy airspace consolidation is present at both lung bases. T he trachea and central airways appear clear. Foci of parenchymal scarring are again seen in the upper lobes, greater than right. No pleural effusion is seen. Mediastinum: There is no mediastinal lymphadenopathy. Keli: Clear. Axillae: There is no axillary lymphadenopathy. Upper abdomen: Partially visualized upper abdominal viscera is within normal limits. Skeletal structures: No pleural effusion is identified. The skeletal structures are heterogeneous. De generative change is noted in the shoulders and spine. No lytic or blastic bony lesions are clearly s een. There are chronic/healed right-sided rib fractures. There is also chronic deformity of the right scapula. IMPRESSION: 1. There is no evidence of pulmonary embolus in the main, lobar, or segmental pulmonary arteries. 2. Emphysema with chronic/fibrotic change as above. 3. Patchy airspace consolidation is seen at both lung bases. Correlate clinically for evidence of pne umonia/aspiration pneumonitis. A follow-up chest CT in 3-4 months time is recommended to document res olution. 4. Cardiomegaly and cardiac pacemaker. 5. Additional findings as above. ACT 112: Negative or not required by law. Electronically signed by: Dante Lopez M.D. 02/14/2024 3:19 PM
[2024-02-14] MEDS ORDERED: SODIUM CHLORIDE 0.9% 250 ML IV PRN (15:54)
[2024-02-14] MEDS: cefTRIAXone SODIUM 1,000 MG/50 ML BAG IV STA (16:38)
[2024-02-14] MEDS: SODIUM CHLORIDE 0.9% 500 ML IV ONE (16:39)
[2024-02-14] MEDS: COUGH DROP (SUGAR FREE) LOZ 24 LOZ/1 BOX BUCCAL PRN (16:40)
--- NOTE | 2024-02-14 17:06 | History & Physical Report ---
Date of Service February 14, 2024 Assessment & Plan (1) SOB (shortness of breath): (2) Multiple myeloma: (3) Chronic heart failure with reduced ejection fraction and diastolic dysfunction: (4) PVD (peripheral vascular disease): (5) CAD (coronary artery disease): (6) HLD (hyperlipidemia): (7) Pacemaker: (8) HTN (hypertension): (9) Type 2 diabetes mellitus: Plan: Dyspnea on exertion with Hemoptysis Multiple Myeloma -Admit to [facility] [place] telemetry -Follows with hematology/oncology, Dr. Garcia as an outpatient - multiple myeloma IgG kappa with lytic bone lesions, pancytopenia secondary to chemotherapy, severe CAD multivessel disease s/p CABG at age 48, paroxysmal A- fib, chronic systolic CHF, DM type II, ulcer of the foot, also with neutropenia and thrombocytopenia. It was planned that he would have cardiac cath prior to his next session of chemotherapy per Dr. Garcia. Patient underwent a cardiac catheterization on 02/[address] Campo at [facility] which showed patent dickinson to LAD, radial to left PLB and right gastroepiploic to PDA, severe multivessel CAD: 100% proximal LAD chronic total occlusion, 95% proximal circumflex OM1, 100% distal circumflex chronic total acute lesion 2012, OM 3 mid occlusion, 100% mid RCA chronic total occlusion. Normal intracardiac filling pressure. He recommended medical management of the patient's chronic CAD and stated no acute or high risk SHARON identified. Suspected that majority of symptoms are secondary to anemia/malignancy although could consider trial of additional antianginal therapy. - Heme/onc rec transfusion of 1 unit of blood for symptomatic anemia. -- Ordered -- due to MM and chemo requires specific blood product which is coming from [place]. - Consider pulm consult with new onset of hemptysis - CTA chest negative for pulmonary embolism, emphysema with chronic/fibrotic change, patchy airspace consolidation seen at both lung bases, correlate clinically for evidence of pneumonia/aspiration pneumonitis, cardiomegaly and cardiac pacemaker noted - Will check RVP biofire, strep, mono, legionella urine, AFB to complete infectious workup - Trend Bcx x 2, started on azithromycin 500 mg IV in the ER-- add vanc and meropenum IV - Will hold eliquis, consider heparin bridging pending hemoptysis is quantified, monitor, pt reports tablespoon of sputum with BRB at a time. Plt count currently 39. Active chemotherapy started 12/02/23 with daratumumab and hyaluronidase injectio ns (Darzalex Faspro), lenalidomide (Revlimid) and Xgeva monthly inj on day 29 of his cycle. Day 1 of cycle 13 on 01/27/2024. His next scheduled chemotherapy was scheduled for 02/24/2024 pending all went well with cardiac cath as above CHF CAD s/p CABG HTN HLD Persistent Atrial Fibrillation - Continue cardiac medications - BNP noted to be slighty elevated at 348 on admission - Most recent cardiac cath as above - Jun 2023 of LVEF of 30-35%, large WMA with hypokinesis of basal inferoseptum, inferior wall and basal and mid levels, basal level of inferolateral wall, aort ic valve sclerosis moderated, moderate mitral regurg, pulm aa systolic pressure is 37 mmHG, diastolic function could not be assessed due to irregular rhythm. - Holding eliquis as above with low threshhold for starting heparin with multiple myeloma DM II - ISS with Accu-Cheks ACHS - A1c 6.5 on 11/22/23 DVT ppx: teds, scds, holding chemical ppx Lines: mediport Left chest wall not accessed, PIV left antecubital space FEN/GI:Regular diet, daily protein supplement CODE: dnr/dni Dispo: From home, likely to remain in the hospital x 1-2 days A total of 80 minutes were spent with greater than 50% of that time face to face with the patient, personally reviewing all current laboratories, imaging studies, past medication reconciliation, outpatient chart review, and discussion with specialists to collaborate care for the patient with attending. Please see attending documentation for corrections and/or additions. History of Present Illness Chief Complaint: Shortness of breath on exertion Primary Care Provider: Landen Macario DO This is a 78-year-old male with PMHx of multiple myeloma IgG kappa with lytic bone lesions, pancytopenia secondary to chemotherapy, severe CAD multivessel disease s/p CABG at age 48, paroxysmal A-fib, chronic systolic CHF, DM type II, ulcer of the foot, also with neutropenia and thrombocytopenia. It was planned that he would have cardiac cath prior to his next session of chemotherapy per Dr. Garcia. Patient underwent a cardiac catheterization on 02/[address] Campo at [facility] which showed patent dickinson to LAD, radial to left PLB and right gastroepiploic to PDA, severe multivessel CAD: 100% proximal LAD chronic total occlusion, 95% proximal circumflex OM1, 100% distal circumflex chronic total acute lesion 2012, OM 3 mid occlusion, 100% mid RCA chronic total occlusion. Normal intracardiac filling pressure. He recommended medical management of the patient's chronic CAD and stated no acute or high risk SHARON identified. Suspected that majority of symptoms are secondary to anemia/malignancy although could consider trial of additional antianginal therapy. Pt presents to the hospital with acute worsening dyspnea on exertion, ongoing for the past 2 weeks, with 3 days ago started coughing up blood. The sputum is streaked with blood and last time was this afternoon. It is about a tablespoon of bloody sputum when it happens. He states normally doesn't have any productive cough. Pt feels shortness of breath even with walking short distances, 10 ft in the ER room. Reports hx of constipation and is on linzess. Denies any fever, or chills. Pt denies sick contacts that he is aware of. He had been in contact with Dr. Garcia's office this morning and they believe that he would benefit from transfusion of 1 unit of blood for symptomatic anemia. He has a boot on his lateral side of left foot and has an ulcer there which has been following with wound care. Patient is currently on active treatment with daratumumab and hyaluronidase injections (Darzalex Faspro), lenalidomide (Revlimid) and Xgeva monthly inj on day 29 of his cycle. This was initiated on 12/02/23. And had day 1 of cycle 13 on 01/27/2024. His next scheduled chemotherapy was scheduled for 02/24/2024. Allergies Allergy/AdvReac Type Severity Reaction Status Date / Time tizanidine AdvReac Intermediate "Woozy" Verified 02/14/24 15:54 feeling Home Medications Medication Instructions Recorded Confirmed Type apixaban 5 mg tablet (Eliquis) 5 mg PO BID 06/25/20 02/14/24 History atorvastatin 40 mg tablet 40 mg PO QAM 06/25/20 02/14/24 History liraglutide 0.6 mg/0.1 mL (18 mg/3 1.2 mg subcut DAILY 12/14/21 04/29/24 History mL) subcutaneous pen injector (Victoza 2-Jed) ondansetron 8 mg disintegrating 8 mg PO Q8H PRN Nausea 09/30/21 02/14/24 History tablet prochlorperazine maleate 10 mg 10 mg PO Q6H PRN nausea 09/30/21 02/14/24 History tablet polyethylene glycol 3350 17 gram 17 g PO DAILY PRN constipation #15 10/05/21 02/14/24 Rx oral powder packet (Miralax) ea nitroglycerin 0.4 mg sublingual 0.4 mg sublingual .Q 5 MIN PRN 11/01/21 02/14/24 History tablet Chest Pain omega-3 fatty acids 1,000 mg 1,000 mg PO BID 04/15/22 02/14/24 History capsule docusate sodium 100 mg capsule 100 mg PO BID PRN Constipation 04/22/22 02/14/24 History (Colace) gabapentin 300 mg capsule 300 mg PO BID 04/22/22 02/14/24 History mecobalamin (vitamin B12) 1,000 1,000 mcg PO QAM 04/22/22 02/14/24 History mcg chewable tablet (B12 Active) morphine 15 mg immediate release 15 mg PO Q4H PRN Pain 04/22/22 02/14/24 History tablet digoxin 125 mcg (0.125 mg) tablet 125 mcg PO Q2D 11/04/22 02/14/24 History lenalidomide 10 mg capsule 10 mg PO .HOLD 11/04/22 02/14/24 History (Revlimid) potassium chloride 20 mEq 20 meq PO BID 11/04/22 02/14/24 History tablet,extended release(part/cryst) sennosides 8.6 mg tablet (senna) 17.2 mg PO HS PRN Constipation 11/04/22 02/14/24 History insulin glargine 100 unit/mL (3 45 unit subcut QPM 12/31/22 02/14/24 History mL) subcutaneous pen (Basaglar Elder U-100 Insulin) mirtazapine 30 mg tablet 30 mg PO HS 06/25/23 02/14/24 History omeprazole 20 mg capsule,delayed 20 mg PO QAM 06/25/23 02/14/24 History release linaclotide 145 mcg capsule 145 mcg PO DAILY 07/28/23 02/14/24 History (Linzess) furosemide 20 mg tablet (Lasix) 20 mg PO UD #30 tabs 07/29/23 02/14/24 Rx metoprolol succinate 25 mg 25 mg PO QAM 08/20/23 02/14/24 History tablet,extended release 24 hr metoprolol succinate 50 mg 50 mg PO BID 08/20/23 02/14/24 History tablet,extended release 24 hr (Toprol XL) calcium carbonate 600 mg-vitamin 1 tab PO DAILY 11/16/23 02/14/24 History D3 10 mcg (400 unit) tablet (Calcium 600 + D(3)) insulin lispro 100 unit/mL 0 sliding scale dose subcut TID 02/14/24 02/14/24 History subcutaneous pen (Admelog SoloStar PRN .According to BSG U-) Past Med/Surg History Medical History (Updated 02/14/24 @ 17:30 by Cyril Sosa DO) Diabetic ulcer of left foot COPD (chronic obstructive pulmonary disease) CKD (chronic kidney disease) stage 3, GFR 30-59 ml/min Multiple myeloma f/u oncology at [facility] Congestive heart failure Immunocompromised Interstitial lung disease PAF (paroxysmal atrial fibrillation) pacemaker placed in 2019 Diabetic ulcer of left foot Chronic deep vein thrombosis (DVT) LLE Diarrhea Pneumonia [facility] admission 08/2023 NSTEMI (non-ST elevated myocardial infarction) Per remote records History of pilonidal cyst Pacemaker Implanted 2019 History of melanoma in situ right adventism HLD (hyperlipidemia) CAD (coronary artery disease) s/p CABG x4 (age 48) Follow[address] with Dr. Lane/[facility] Type 2 diabetes mellitus IDDM Surgical History Hallux rigidus of left foot multiple surgeries Hx of colonoscopy S/P surgical removal of pilonidal cyst Hx of melanoma excision many years ago; right adventism Status post total hip replacement, left History of bone marrow biopsy early 2022 History of cataract surgery R/L S/P CABG x 4 Age 48 S/P Mohs surgery for basal cell carcinoma Family History Mother Lymphoma Social History Smoking Status: Never smoker Tobacco Type: Cigarettes Second Hand Exposure: Yes ( smokes); Do You Dip or Chew Tobacco: No; Hx Alcohol Use: Yes Alcohol type: wine Alcohol Intake Frequency: Monthly or Less Hx Substance Use: No Preferred Language: Greek Communication Ability: Effective Visual Impairment: No Limitations Hearing Ability: Normal Audiology Director Required: No Beliefs That Will Affect Care: None marital status: Current Living Situation: Spouse Current Living Situation Comment: home current occupational status: retired How many Children do You have: 1 How many Children do You have Comment: Magi lives in [facility]. able to assist with care as needed. Feels Safe at Home: Yes Diet: regular Diet Comment: Trying to gain weight caffeine: No during the past year weight has: decreased > 10 lbs Assistive Devices: None Review of Systems Review of Systems: Constitutional: No fever, sweats or chills Eyes: No diplopia, no worsening or blurred vision ENT: normal hearing, no trouble swallowing Respiratory: As per HPI Cardiovascular: No chest pain, tightness or palpitations Abdomen: No pain, nausea, vomiting, diarrhea or constipation Musculoskeletal: No joint pain, calf pain, swelling, + Left foot ulcer as per HPI. Neurologic: No weakness, numbness/tingling, or balance problems Psychiatric: No anxiety or depression Skin: No rash or itch Physical Exam Physical Exam: General: awake, alert, no apparent distress, thin white male Head: Normocephalic, atraumatic ENT: PERRL, EOMI, no pharyngeal exudate, mucous membranes moist Chest: Clear to auscultation, left side with diminished breath sounds upper ochoa, slightly present in the right upper ochoa, on room air, sats 96% on RA, no adventitious breath sounds Cardiac:irregularly irregular, rate controlled, no murmur, no JVD, normal peripheral pulses, good capillary refill Abdominal: NABS x 4 quadrants, soft, nondistended, nontender to palpation, no rebound or guarding Extremities: Normal inspection, no peripheral edema or erythema, calfs nontender to palpation Psych: Normal mood and affect Neuro: AAO x 3, strength intact bilaterally and rated 5/5, no motor deficits, speech is clear, no peripheral sensory deficits Results & Data Results & Data Vital Signs (Past 12 Hours) Vital Signs Temp Pulse Resp BP Pulse Ox O2 Del Method 02/14/24 15:30 104/55 L 02/14/24 15:30 85 12 96 Room Air 02/14/24 14:53 Room Air 02/14/24 14:05 75 02/14/24 13:27 36.5 C 75 20 112/68 95 Laboratory Results 02/14/24 16:14 Aerobic Blood Culture - Pending Blood Anaerobic Blood Culture - Pending 02/14/24 16:14 Aerobic Blood Culture - Pending Blood Anaerobic Blood Culture - Pending 02/14/24 02/14/24 16:14 13:53 WBC 3.15 L RBC 2.23 L Hgb 7.1 L Hct 22.1 L MCV 99.1 MCH 31.8 MCHC 32.1 RDW Std Deviation 61.0 H RDW Coeff of Collin 17.0 H Plt Count 39 L MPV 12.9 H Immature Gran % (Auto) 1.0 Neut % (Auto) 59.0 Lymph % (Auto) 24.8 [place] % (Auto) 13.3 Eos % (Auto) 1.9 Baso % (Auto) 0.0 Neut # (Auto) 1.86 Lymph # (Auto) 0.78 L [place] # (Auto) 0.42 Eos # (Auto) 0.06 Baso # (Auto) 0.00 Immature Gran # (Auto) 0.03 Polychromasia 1+ Tear Drop Cells 1+ Ovalocytes 1+ PT 12.6 H INR 1.2 H APTT 33 H PTT Ratio 1.2 Sodium 135 L Potassium 4.4 Chloride 102 Carbon Dioxide 22 Anion Gap 11 BUN 27 H Creatinine 1.04 Est Cr Clr Drug Dosing Not Reportable Est GFR ( Amer) 79.9 Est GFR (Non-Af Amer) 68.9 BUN/Creatinine Ratio 26.0 H Glucose 195 H Calcium 9.5 Total Bilirubin 0.7 AST 39 ALT 73 H Alkaline Phosphatase 49 Troponin I High Sens 12.7 B-Natriuretic Peptide 348 H Total Protein 7.4 Albumin 3.8 Globulin 3.6 Albumin/Globulin Ratio 1.1 Crossmatch See Detail Diagnostic Findings Chest X-Ray 02/14/24 13:31 XR chest 1V portable HISTORY: 78 years-old Male Chest pain, nonspecific COMPARISON: 10/04/2023 TECHNIQUE: AP view of the chest FINDINGS: Cardiac silhouette is enlarged. Left subclavian pacer. Median sternotomy with mediastinal surgical clips. Pulmonary vascular congestion with lateral right lung interstitial coarsening. No pneumothorax, large pleural effusion or lobar airspace consolidation. Chronic appearing right-sided rib fractures. IMPRESSION: 1. Cardiomegaly with pulmonary vascular congestion. 2. Lateral right lung interstitial coarsening may be technical. Findings should be correlated clinically to exclude a nonspecific pneumonitis. ACT 112: Negative or not required by law. The above report was generated using voice recognition software. It may contain grammatical, syntax or spelling errors. Electronically signed by: Uziel Nieto M.D. 02/14/2024 2:28 PM Chest CTA 02/14/24 14:26 CT ANGIOGRAM OF THE CHEST CLINICAL HISTORY: Hemoptysis. COMPARISON STUDY: Chest x-ray dated 02/14/2024. Chest CT dated 08/23/2023. TECHNIQUE: Following the IV administration of 118 cc of Optiray 320, CT angiogram of the chest was performed from the upper abdomen to the thoracic inlet utilizing the pulmonary embolus protocol. Images are reviewed in the axial, sagittal, and coronal planes. 3-D MIPS images are created and assessed. IV contrast was administered without complication. A dose lowering technique was utilized adhering to the principles of ALARA. CT DOSE: 615.99 mGy.cm FINDINGS: Thyroid: Imaged portions of the thyroid gland are normal in size and attenuation. Thoracic aorta: There is atherosclerotic calcification of the thoracic aorta, which is normal in caliber and demonstrates standard 3-vessel arch anatomy. No dissection is seen. Pulmonary vasculature: The pulmonary trunk is normal in caliber. There are no filling defects identified in main, lobar, or segmental pulmonary branches to suggest pulmonary embolus. Heart: The patient is status post midline sternotomy. A cardiac pacemaker is noted in the left chest wall. The heart is enlarged and without pericardial effusion. Lungs and pleural spaces: There is moderate emphysematous change with apical bullae. Subpleural reticulation is seen throughout both lungs. Patchy airspace consolidation is present at both lung bases. The trachea and central airways appear clear. Foci of parenchymal scarring are again seen in the upper lobes, greater than right. No pleural effusion is seen. Mediastinum: There is no mediastinal lymphadenopathy. Keli: Clear. Axillae: There is no axillary lymphadenopathy. Upper abdomen: Partially visualized upper abdominal viscera is within normal limits. Skeletal structures: No pleural effusion is identified. The skeletal structures are heterogeneous. Degenerative change is noted in the shoulders and spine. No lytic or blastic bony lesions are clearly seen. There are chronic/healed right- sided rib fractures. There is also chronic deformity of the right scapula. IMPRESSION: 1. There is no evidence of pulmonary embolus in the main, lobar, or segmental pulmonary arteries. 2. Emphysema with chronic/fibrotic change as above. 3. Patchy airspace consolidation is seen at both lung bases. Correlate clinically for evidence of pneumonia/aspiration pneumonitis. A follow-up chest CT in 3-4 months time is recommended to document resolution. 4. Cardiomegaly and cardiac pacemaker. 5. Additional findings as above. ACT 112: Negative or not required by law. Electronically signed by: Dante Lopez M.D. 02/14/2024 3:19 PM ECG Additional Comments: Reviewed personally showing Afib , rate controlled. Code Status & VTE Plan Code Status DNR/DNI - discussed with pt at bedside Supervising Physician Co-Signing Physician Notes I have seen and discussed the case with the collaborating advanced practitioner. I agree with the above H&P. I have reviewed and confirmed the patients medical history, the findings on physical examination, and the patients diagnosis and treatment plan with Demarcus BRITTON and agree with the information documented. Mr. Hernandez is a 78-year-old male with past medical history significant for a trial fibrillation, coronary artery disease status post CABG at the age of 48, status post hip replacement surgery, diabetes, Multiple myelomaIgG kappawith lytic bone lesions who is presented with progressive SOB. He states he is dynpnic while ambulating short distances, even to the bathroom. He denies fevers, endorses chills. Reports hemoptysis, bright red blood--more like clots--for last 3 days. He is on active chemotreatment complicated by pancytopenia. He is s/p C, which revealed severe chronic CAD. GENERAL APPEARANCE: AxOx4, chronically ill appearing man, no acute distress. HEENT: NC, AT. MMM. EOMI, clear conjunctiva, oropharynx clear. NECK: thin, No stiffness or restricted ROM. HEART: regular with occasional irregular/extra beat LUNGS: diminished left breath sounds, poor airway movement ABDOMEN: Soft, nontender, nondistended with good bowel sounds heard. BACK: No CVAT, no obvious deformity. EXTREMITIES: Without cyanosis, clubbing or edema. NEUROLOGICAL: Grossly nonfocal. Alert and oriented, moving all 4 extremities. CN not formally tested but appear grossly intact. Skin: small lesion on lateral edge of Left foot, no signs of superimposed infection, no drainage, mild tenderness to palpation, well healed area of amputation of 2nd digit on left foot CT ANGIOGRAM OF THE CHEST CLINICAL HISTORY: Hemoptysis. COMPARISON STUDY: Chest x-ray dated 02/14/2024. Chest CT dated 08/23/2023. TECHNIQUE: Following the IV administration of 118 cc of Optiray 320, CT angiogram of the chest was performed from the upper abdomen to the thoracic inlet utilizing the pulmonary embolus protocol. Images are reviewed in the axial, sagittal, and coronal planes. 3-D MIPS images are created and assessed. IV contrast was administered without complication. A dose lowering technique was utilized adhering to the principles of ALARA. CT DOSE: 615.99 mGy.cm FINDINGS: Thyroid: Imaged portions of the thyroid gland are normal in size and att enuation. Thoracic aorta: There is atherosclerotic calcification of the thoracic aorta, which is normal in caliber and demonstrates standard 3-vessel arch anatomy. No dissection is seen. Pulmonary vasculature: The pulmonary trunk is normal in caliber. There are no filling defects identified in main, lobar, or segmental pulmonary branches to suggest pulmonary embolus. Heart: The patient is status post midline sternotomy. A cardiac pacemaker is noted in the left chest wall. The heart is enlarged and without pericardial effusion. Lungs and pleural spaces: There is moderate emphysematous change with apical bullae. Subpleural reticulation is seen throughout both lungs. Patchy airspace consolidation is present at both lung bases. The trachea and central airways appear clear. Foci of parenchymal scarring are again seen in the upper lobes, greater than right. No pleural effusion is seen. Mediastinum: There is no mediastinal lymphadenopathy. Keli: Clear. Axillae: There is no axillary lymphadenopathy. Upper abdomen: Partially visualized upper abdominal viscera is within normal limits. Skeletal structures: No pleural effusion is identified. The skeletal structures are heterogeneous. Degenerative change is noted in the shoulders and spine. No lytic or blastic bony lesions are clearly seen. There are chronic/healed right- sided rib fractures. There is also chronic deformity of the right scapula. IMPRESSION: 1. There is no evidence of pulmonary embolus in the main, lobar, or segmental pulmonary arteries. 2. Emphysema with chronic/fibrotic change as above. 3. Patchy airspace consolidation is seen at both lung bases. Correlate clinically for evidence of pneumonia/aspiration pneumonitis. A follow-up chest CT in 3-4 months time is recommended to document resolution. 4. Cardiomegaly and cardiac pacemaker. 5. Additional findings as above. #RAYGOZA multifactorial, anemia of 7 on admission, severe CAD -Plan to transfuse >8 for hgb goal -requires leukoirradiated blood, pending receipt from [employer] -Monitor on tele -Infectious work up iso immunocompromised/chemo, empiric abx 48 hours #Hemoptysis Reports 1teaspoon brenna blood with coughing x 3 days Hold eliquis at this time Pulm consult No active coughing thus far--will hold on TXA neb at this time #immunocompromised #Acute on chronic anemia #Pancytopenia #Multiple Myeloma IgG kappa with lytic bones lesions not a candidate for stem cell transplant Hgb 7 on admission, will transfuse with goal for >8 iso severe CAD as possible eitology for SOB/RAYGOZA contact precautions Plt 39, not sure if at daniele, lower than baseline, will trend cbc Hold eliquis iso hemoptysis and anemia, resume as able or consider heparin bridge Rest of plan as above I spent a total of 45 minutes coordinating, documenting, and providing care for this patient excluding time spent in the performance of separately billed services. All of the aforementioned completed outside of collaborating with the assigned advanced practitioner for a full treatment plan. I have reviewed the advanced practitioner's documentation, and I agree with, and take responsibility for the plan of care (5) CAD (coronary artery disease) Associated angina: with stable angina Coronary Disease-Associated Artery/Lesion type: platinum artery [place] vs. transplanted heart: platinum heart Qualified Code(s): I25.118 - Atherosclerotic heart disease of platinum coronary artery with other forms of angina pectoris
[2024-02-14] MEDS: AZITHROMYCIN 500 MG in DEXTROSE 5% 250 ML IV ONE (17:19)
[2024-02-14] MEDS ORDERED: VANCOMYCIN CONSULT ACTIVE PRN (17:24)
[2024-02-14] MEDS ORDERED: PROCHLORPERAZINE MALEATE 10 MG TAB PO PRN (18:00)
[2024-02-14] MEDS: Patient's HEIGHT &/or WEIGHT Needed SCH (18:27)
[2024-02-14] MEDS: VANCOMYCIN HCL 1,750 MG in SODIUM CHLORIDE 0.9% 500 ML IV ONE (19:06)
[2024-02-14] MEDS: MEROPENEM 500 MG in SYRINGE 0 ML IV SCH (19:06)
[2024-02-14 19:18] LABS: Adenovirus PCR Not Detected (NotDetected); Bordetella parapertussis PCR Not Detected (NotDetected); Bordetella pertussis PCR Not Detected (NotDetected); Chlamydia pneumoniae PCR Not Detected (NotDetected); Coronavirus 229E PCR Not Detected (NotDetected); Coronavirus CoV-2 (COVID19)PCR Not Detected (NotDetected); Coronavirus HKU1 PCR Not Detected (NotDetected); Coronavirus NL63 PCR Not Detected (NotDetected); Coronavirus OC43PCR Not Detected (NotDetected); Human Metapneumovirus PCR Not Detected (NotDetected); Influenza A PCR Not Detected (NotDetected); Influenza B PCR Not Detected (NotDetected); Mycoplasma pneumoniae PCR Not Detected (NotDetected); Parainfluenza Virus 1 PCR Not Detected (NotDetected); Parainfluenza Virus 2 PCR Not Detected (NotDetected); Parainfluenza Virus 3 PCR Not Detected (NotDetected); Parainfluenza Virus 4 PCR Not Detected (NotDetected); Respiratory Syncytial VirusPCR Not Detected (NotDetected); Rhinovirus/Enterovirus PCR Not Detected (NotDetected)
[2024-02-14] MEDS ORDERED: ONDANSETRON INJ 2 MG/ML 2 ML VIAL IV PRN (21:02)
[2024-02-14] MEDS: POTASSIUM CHLORIDE CRTAB 20 MEQ TABCR PO SCH (22:02)
[2024-02-14] MEDS: MoRPHine SULFATE IR 15 MG TAB (IMMEDIATE RELEASE) PO SCH (22:02)
[2024-02-14] MEDS: MELATONIN 3 MG TAB PO PRN (22:02)
[2024-02-14] MEDS: GABAPENTIN 300 MG CAP PO SCH (22:03)
[2024-02-14] MEDS: METOPROLOL SUCC 50MG EXT REL TAB PO SCH (22:03)
[2024-02-14] MEDS: MIRTAZAPINE TAB 15 MG TAB PO SCH (22:03)
[2024-02-14] MEDS: LANTUS PER UNIT CHARGE SC SCH (22:04)
--- OUTSIDE RECORDS SUMMARY | 2024-02-14 22:46 | External Medical Summary | Summary of Care ---
Author Name Unknown Organization [facility] Address [address] [place] [address] Phone [phone] Care Team Providers Care Differential Specialist Name Role Phone AhsanLanden nava Primary Care Provider [phone] Reason for Visit * Reason Onset Date Comments Test Results 02/11/2024 Radha Encounter Details Date Type Department Care Team (Late st Contact Info) Description 02/11/2024 Telephone Hematology/Oncology [facility] [place] [address] [place] [address] Services, Scheduling [address] [place] [address] Test Results (Radha) Allergies Active Allergy Reactions Criticality Noted Date Comments Tizanidine 06/27/2021 documented as of this encounter (statuses as of 02/14/2024) Medications Medication Sig Dispensed Refills Start Date [...] or Wheezing. 18 g 3 04/03/2022 Active G63-Kxeiay 1 MG Oral Tablet Chewable (Methylcobalamin) Take by mouth daily . 0 Active Calcium + Vitamin D3 600-10 MG-MCG Oral Tablet (Calcium Carb-Cholecalcifero l)Indications:Multi ple myeloma not having achieved remission (HCC) TAKE 1 TABLET BY MOUTH EVERY DAY IN THE MORNING AND BEFORE BEDTIME 180 Tablet 2 12/14/2022 Active Prochlorperazine Maleate 10 MG Oral Tablet (Compazine)Indicati ons:Multiple myeloma not having achieved remission (HCC) Take 1 Tablet by mouth every 6 hours as needed for Nausea. 30 Tablet 2 01/27/2023 Active Dexcom G7 Sensor Use to check blood sugar 1 Each 3 03/04/2023 Active Dexcom G7 Field Coil Winder Device Use to check blood sugar 1 [...] before breakfast. 90 Capsule 3 06/14/2023 Active Senna 8.6 MG Oral Tablet Take 2 Tablets by mouth at bedtime as needed for Constipation. 60 Tablet 1 07/23/2023 Active Metoprolol Succinate ER 25 MG Oral Tablet Extended Release 24 Hour (toPROL XL) Take 1 Tablet by mouth in the morning. 90 Tablet 3 10/13/2023 Active Metoprolol Succinate ER 50 MG Oral Tablet Extended Release 24 Hour (toPROL XL) Take 1 Tablet by mouth in the morning and 1 Tablet before bedtime. 180 Tablet 3 10/13/2023 Active Eliquis 5 MG Oral Tablet (Apixaban)Indicatio ns:Paroxysmal atrial fibrillation (HCC) TAKE 1 TABLET BY MOUTH TWICE A DAY 180 Tablet 3 11/05/2023 Active Klor-Con M20 20 MEQ Oral Tablet Extended Release (Potassium Chloride ER) TAKE 1 TABLET BY MOUTH IN THE MORNING AND BEFORE BEDTIME 180 Tablet 3 11/11/2023 Active Omeprazole 20 MG Oral Capsule Delayed Release (PriLOSEC)Indicatio ns:Gastroesophageal reflux disease without esophagitis TAKE 1 CAPSULE BY MOUTH EVERY MORNING 90 Capsule 3 11/24/2023 Active Mirtazapine 30 MG Oral Tablet (Remeron) TAKE 1 TABLET BY MOUTH EVERYDAY AT BEDTIME 90 Tablet 1 12/07/2023 Active Furosemide 20 MG Oral Tablet (Lasix) 1 tablet 5 days per week. May take an additional tablet as needed for increased fluid retention. Do not start before December 15, 2023. 45 Tablet 5 12/15/2023 Active Insulin Lispro 100 UNIT/ML Injection Solution (Humalog) Inject 15 Units under the skin in the morning and 15 Units at noon and 15 Units in the evening. Inject with meals. Plus correction factor of 1:25 over 150. Max Daily Dose of 75 Units.. 75 mL 3 12/17/2023 Active Insulin Lispro (1 Unit Dial) 100 UNIT/ML Subcutaneous Solution Pen-injector (Admelog SoloStar)Indication s:Type 2 diabetes mellitus with peripheral vascular disease (HCC) Inject 15 Units under the skin in the morning and 15 Units at noon and 15 Units in the evening. Inject before meals. 75 mL 12 12/20/2023 Active Insulin Glargine Solostar 100 UNIT/ML Subcutaneous Solution Pen-injector (Basaglar KwikPen)Indications :Type 2 diabetes mellitus with hemoglobin A1c goal of less than 8.0% (HCC) INJECT 50 UNITS SUBCUTANEOUSLY, EVERY DAY. Plus as directed for 3 days around chemo. DX E11.9 45 mL 3 12/27/2023 Active Lenalidomide 10 MG Oral Capsule (Revlimid)Indicatio ns:Multiple myeloma not having achieved remission (HCC) Take one cap by mouth daily for 21 days on, 7 days off of a 28 day cycle 21 Capsule 0 01/17/2024 Active Morphine Sulfate 15 MG Oral Tablet (Msir)Indications:M etastatic cancer to bone (HCC),Cancer related pain,Multiple myeloma not having achieved remission (HCC) Take 1 Tablet by mouth every 4 hours as needed for Pain, Severe. 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 12/06/2023 HFrEF (heart failure with reduced ejection fract ion) 12/06/2023 COPD, group B, by GOLD 2017 classification 09/27 Overview: Per COPD GOLD Classification Chronic kidney disease, stage 3a 08/30/2023 Overview: Per CKD protocol Protein-calorie malnutrition 08/02/2023 ILD (interstitial lung disease) 06/14/2023 Chronic systolic (congestive) heart failure 09/0 05/2022 Coronary artery disease invo lving [place] coronary artery of [place] heart without angina pectoris 06/25/2022 Presence of [...] Gastroesophageal reflux disease without esophagi tis 03/15/2019 long-term (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 of insulin 11/25/2018 Paroxysmal atrial [...] as of this encounter (statuses as of 02/14/2024) Resolved Problems Problem Noted Date Diagnosed Date [...] 07/05/2002 05/26/2018 Rosacea 07/28/2001 05/26/2018 LOC PRIM [id number] 07/28/200106/2018 documented as of this encounter (statuses as of 02/14/2024) Immunizations Name Administration Dates Next Due COVID-19 mRNA, LNP-s, No Pre serve, 2-Dose Series (Moderna) 08/27/2021,01/04/2021,12/02/2020 COVID-19, MRNA-LNP, 23-24, P F, 50 MCG/0.5 mL, 12 YRS AND ABOVE, IM (MODERNA-Spikevax) 08/18/2023 COVID-19, mRNA, LNP-s, PF, B ooster, 100mcg/0.5mg [...] Date Smoking Tobacco: Former Cigarettes 1.5 25 0 10/18/1954 - 10/18/1979 Smokeless Tobacco: Never Comments:occ. cigar Alcohol [...] encounter Miscellaneous Notes * Telephone Encounter - lSoan Torres RN - 02/14/2024 8:13 AM EDT Called patient, no answer, LMOM with return #. Patient received 1 unit of PRBC last week, Hgb 7.5 on Wednesday. Will see if patient wants to go for another transfusion. * Telephone Encounter - Kerri Moya OSA - 02/11/2024 4:50 PM EDT Radha pt. Pt is calling for lab results. Is waiting for a call back. Please call pt back at [phone] Thank you! documented in this encounter Plan of Treatment Upcoming Encounters Date Type Department Care Team (Late st Contact Info) Description 02/23/2024 1:30 PM EDT Laboratory Laboratory [facility] [address] [place] [phone] Ashley Lab [facility] [address] [facility] [place] [address] 02/23/2024 2:00 PM EDT Office Visit Hematology/Oncology [facility] [address] [place] [phone] Chito Garcia MD [address] [place] [address] 02/23/2024 2:30 PM EDT Immunization/Injecti on Hematology/Oncology Treatment, [place] [address] [place] [phone] Ashley, Chair 5 Hem Onc [address] [place] [address] 02/23/2024 6:15 PM EDT Scheduled Telephone Pharmacy Hematology Oncology [facility] [address] [place] [address] [facility] Hem/Onc Tech [address] [place] [address] 03/01/2024 9:00 AM EDT Pharmacy Pharmacy Hematology Oncology [facility] [address] [place] [address] [facility] Hem/Onc [address] [place] [address] 04/17/2024 3:40 PM EDT Office Visit Family Practice [facility] [address] [place] [address] Landen Macario, DO [address] [place] [address] 05/09/2024 2:50 PM EDT Office Visit Pharmacy, [facility] [place] [address] [facility] [place] [address] Pharmacist1, [facility] [address] [facility] [place] [address] 05/09/2024 3:20 PM EDT Office Visit Family Practice [facility] [place] [address] [facility] [place] [address] Landen Macario DO [address] [facility] [place] [address] Health Maintenance Due Date Last Done Comments Alpha-1 Antitrypsin 1963 Hepatitis B (3 of 3 - 19+ 3-dose series) 04/17/1994 11/18/1993, 10/18/1993 Zoster Vaccines (2 of 2) 02/21/2013 12/27/2012, 12/16 Pneumococcal Vaccine: 65+ Years (3 of 3 - PPSV23 or PCV20) 04/26/2017 03/01/2017, 09/06/2007 Albumin/Creatinine Ratio 12/14/2019 019, 01/03/2018, 06/26/2016, Additional history exists Diabetic Foot Exam 09/16/2021 09/16/2020, 0 12/16/2015, 03/06/2015, Additional history exists Depression Screening 05/20/2023 05/20/2022 HbA1c 06/28/2024 12/27/2023, 12/0 02/2023, 06/14/2023, Additional history exists GFR 08/03/2024 02/02/2024, 04/0 10/2023, 12/30/2023, Additional history exists Diabetic Eye Exam 09/30/2024 09/30/2023, , 09/03/2021, Additional history exists CKD PHOS USE SMARTSET 60658 12/29/202412/16, 12/02/2023, 09/21/2023, Additional history exists B-12 01/16/2025 01/17/2024, 02/15, 04/21/2022, Additional history exists DIG LEVEL FOR MEDICATION MONITORING YEARLY 01/16/2025 01/17/2024, 01/04/2023, 10/08/2022, Additional history exists O2 ASSESSMENT COMPLETED IN PAST YEAR FOR COPD 01/23/2025 01/24/2024 CKD HGB USE SMARTSET 36936 02/10/202502/10, 02/11/2024, 02/02/2024, Additional history exists DTaP,Tdap,and Td Vaccines (2 - Td or Tdap) 04/02/2032 04/02/2022 RETIRED - COLONOSCOPY-EVERY 5 YRS AGES 18-100 Discontinued 11/16/2016, [...] this encounter Medical Devices Implanted Type Area Legal Services Manager Device Identifier Shelf Expiration Date Model / Serial / Lot Lens Intraoc 24.0 - [id number] - [id number] Implanted:Qty: 1 on 08/16/2018 by Adan Colon MD at OR [facility] Right: Eye BAUSCH & LOMB 11/17/2022 [id number] / [id number] / [id number] Lens Intraoc 24.0 - [id number] - [id number] Implanted:Qty: 1 on 08/23/2018 by Adan Colon MD at OR [facility] Left: Eye BAUSCH & LOMB 06/17/2023 [id number] / [id number] / [id number] Screw [employer] 3.5qpl07sd - [id number] Implanted:Qty: 1 on 12/07/2019 by Amilcar Saavedra MD at OR [facility] Left: Foot EXACTECH [id number] / / Screw [employer] [id number] - [id number] Implanted:Qty: 1 on 12/07/2019 by Amilcar Saavedra MD at OR [facility] Left: Foot EXACTECH [id number] / / documented as of this encounter [...] and were consensually agreed upon. Care Teams Differential Specialist Relationship Specialty Start Date End Date Landen Macario DO [address] [place] [address] PCP - General Family Medicine 02/09/22 documented as of this encounter
--- OUTSIDE RECORDS SUMMARY | 2024-02-14 22:46 | External Medical Summary | Summary of Care ---
Author Name Unknown Organization [facility] Address [address] [place] [address] Phone [phone] Care Team Providers Care Industrial Fabric Cutter Name Role Phone AhsanLanden nava Primary Care Provider [phone] Reason for Visit * Reason Onset Date Comments Test Results 02/11/2024 Radha Encounter Details Date Type Department Care Team (Late st Contact Info) Description 02/11/2024 Telephone Hematology/Oncology [facility] [place] [address] [place] [address] Services, Scheduling [address] [place] [address] Test Results (Radha) Allergies Active Allergy Reactions [...] or Wheezing. 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 12/06/2023 HFrEF (heart failure with reduced ejection fract ion) 12/06/2023 COPD, group B, by GOLD 2017 classification 09/27 Overview: Per COPD GOLD Classification Chronic kidney disease, stage 3a 08/30/2023 Overview: Per CKD protocol Protein-calorie malnutrition 08/02/2023 ILD (interstitial lung disease) 06/14/2023 Chronic systolic (congestive) heart failure 09/0 05/2022 Coronary artery disease invo lving [place] coronary artery of [place] heart without angina pectoris 06/25/2022 Presence of [...] 07/05/2002 05/26/2018 Rosacea 07/28/2001 05/26/2018 LOC PRIM [id number] 07/28/200106/2018 documented as of this encounter (statuses [...] Telephone Encounter - Sloan Torres RN - 02/14/2024 8:13 AM EDT [...] call back. Please call pt back at [phone] Thank you! documented in this encounter Plan of Treatment Upcoming Encounters Date Type Department Care Team (Late st Contact Info) Description 02/23/2024 1:30 PM EDT Laboratory Laboratory [facility] [address] [place] [phone] Ashley Lab [facility] [address] [facility] [place] [address] 02/23/2024 2:00 PM EDT Office Visit Hematology/Oncology [facility] [address] [place] [phone] Chito Garcia MD [address] [place] [address] 02/23/2024 2:30 PM EDT Immunization/Injecti on Hematology/Oncology Treatment, [place] [address] [place] [phone] Ashley, Chair [address] Hem Onc [address] [place] [address] 02/23/2024 6:15 PM EDT Scheduled Telephone Pharmacy Hematology Oncology [facility] [address] [place] [address] [facility] Hem/Onc Tech [address] [place] [address] 03/01/2024 9:00 AM EDT Pharmacy Pharmacy Hematology Oncology [facility] [address] [place] [address] [facility] Hem/Onc [address] [place] [address] 04/17/2024 3:40 PM EDT Office Visit Family Practice [facility] [address] [place] [address] Landen Macario, DO [address] [place] [address] 05/09/2024 2:50 PM EDT Office Visit Pharmacy, [facility] [place] [address] [facility] [place] [address] Pharmacist1, [facility] [address] [facility] [place] [address] 05/09/2024 3:20 PM EDT Office Visit Family Practice [facility] [place] [address] [facility] [place] [address] Landen Macario DO [address] [facility] [place] [address] Health Maintenance Due Date Last Done Comments [...] Additional history exists CKD PHOS USE SMARTSET 41981 12/29/202412/16, 12/02/2023, 09/21/2023, Additional history exists B-12 01/16/2025 01/17/2024, 02/15, 04/21/2022, Additional history exists DIG LEVEL FOR MEDICATION MONITORING YEARLY 01/16/2025 01/17/2024, 01/04/2023, 10/08/2022, Additional history exists O2 ASSESSMENT COMPLETED IN PAST YEAR FOR COPD 01/23/2025 01/24/2024 CKD HGB USE SMARTSET 48882 02/10/202502/10, 02/11/2024, 02/02/2024, Additional history exists DTaP,Tdap,and [...] this encounter Medical Devices Implanted Type Area Lacer And Tier Device Identifier Shelf Expiration Date Model / Serial / Lot Lens Intraoc 24.0 - [id number] - [id number] Implanted:Qty: 1 on 08/16/2018 by Adan Colon MD at OR [facility] Right: Eye BAUSCH & LOMB 11/17/2022 [id number] / [id number] / [id number] Lens Intraoc 24.0 - [id number] - [id number] Implanted:Qty: 1 on 08/23/2018 by Adan Colon MD at OR [facility] Left: Eye BAUSCH & LOMB 06/17/2023 [id number] / [id number] / [id number] Screw [employer] 3.1szo49iz - [id number] Implanted:Qty: 1 on 12/07/2019 by Amilcar Saavedra MD at OR [facility] Left: Foot EXACTECH [id number] / / Screw [employer] 3.6kvm92ch - [id number] Implanted:Qty: 1 on 12/07/2019 by Amilcar Saavedra MD at OR [facility] Left: Foot EXACTECH [id number] / / documented as of this encounter [...] and were consensually agreed upon. Care Teams Industrial Fabric Cutter Relationship Specialty Start Date End Date Landen Macario DO [address] [place] [address] PCP - General Family Medicine 02/09/22 documented as of this encounter
--- OUTSIDE RECORDS SUMMARY | 2024-02-14 22:46 | External Medical Summary | Summary of Care ---
Author Name Unknown Organization [facility] Address [address] [address] Phone [phone] Care Team Providers Care Distribution Operations Supervisor Name Role Phone Landen Macario DO Primary Care Provider [phone] Reason for Visit * Reason Onset Date Comments Test Results Lab 02/03/2024 Encounter Details Date Type Department Care Team (Late st Contact Info) Description 02/03/2024 Telephone Hematology/Oncology [facility] [place] [address] [place] [address] Chito Garcia MD [address] [place] [address] Test Results Lab Allergies Active Allergy Reactions Criticality Noted Date Comments Tizanidine 06/27/2021 documented as of this encounter (statuses as of 02/11/2024) Medications Medication Sig Dispensed Refills Start Date [...] or Wheezing. 18 g 3 2 Active U07-Japvcb 1 MG Oral Tablet Chewable (Methylcobalamin) Take by mouth daily . 0 Active Calcium + Vitamin D3 600-10 MG-MCG Oral Tablet (Calcium Carb-Cholecalcife rol)Indications:M ultiple myeloma not having achieved remission (HCC) TAKE 1 TABLET BY MOUTH EVERY DAY IN THE MORNING AND BEFORE BEDTIME 180 Tablet 2 3 Active Prochlorperazine Maleate 10 MG Oral Tablet (Compazine)Indica tions:Multiple myeloma not having achieved remission (HCC) Take 1 Tablet by mouth every 6 hours as needed for Nausea. 30 Tablet 2 3 Active Dexcom G7 Sensor Use to check blood sugar 1 Each 3 3 Active Dexcom G7 Behavioral Health Worker Device Use to check blood sugar [...] before breakfast. 90 Capsule 3 3 Active Senna 8.6 MG Oral Tablet Take 2 Tablets by mouth at bedtime as needed for Constipation. 60 Tablet 1 3 Active Metoprolol Succinate ER 25 MG Oral Tablet Extended Release 24 Hour (toPROL XL) Take 1 Tablet by mouth in the morning. 90 Tablet 3 3 Active Metoprolol Succinate ER 50 MG Oral Tablet Extended Release 24 Hour (toPROL XL) Take 1 Tablet by mouth in the morning and 1 Tablet before bedtime. 180 Tablet 3 3 Active Eliquis 5 MG Oral Tablet (Apixaban)Indicat ions:Paroxysmal atrial fibrillation (HCC) TAKE 1 TABLET BY MOUTH TWICE A DAY 180 Tablet 3 4 Active Klor-Con M20 20 MEQ Oral Tablet Extended Release (Potassium Chloride ER) TAKE 1 TABLET BY MOUTH IN THE MORNING AND BEFORE BEDTIME 180 Tablet 3 4 Active Omeprazole 20 MG Oral Capsule Delayed Release (PriLOSEC)Indicat ions:Gastroesopha geal reflux disease without esophagitis TAKE 1 CAPSULE BY MOUTH EVERY MORNING 90 Capsule 3 4 Active Mirtazapine 30 MG Oral Tablet (Remeron) TAKE 1 TABLET BY MOUTH EVERYDAY AT BEDTIME 90 Tablet 1 4 Active Furosemide 20 MG Oral Tablet (Lasix) 1 tablet 5 days per week. May take an additional tablet as needed for increased fluid retention. Do not start before December 15, 2023. 45 Tablet 5 4 Active Insulin Lispro 100 UNIT/ML Injection Solution (Humalog) Inject 15 Units under the skin in the morning and 15 Units at noon and 15 Units in the evening. Inject with meals. Plus correction factor of 1:25 over 150. Max Daily Dose of 75 Units.. 75 mL 3 4 Active Insulin Lispro (1 Unit Dial) 100 UNIT/ML Subcutaneous Solution Pen-injector (Admelog SoloStar)Indicati ons:Type 2 diabetes mellitus with peripheral vascular disease (HCC) Inject 15 Units under the skin in the morning and 15 Units at noon and 15 Units in the evening. Inject before meals. 75 mL 12 4 Active Insulin Glargine Solostar 100 UNIT/ML Subcutaneous Solution Pen-injector (Carlosaglzahraa Friedman)Indicatio ns:Type 2 diabetes mellitus with hemoglobin A1c goal of less than 8.0% (HCC) INJECT 50 UNITS SUBCUTANEOUSLY, EVERY DAY. Plus as directed for 3 days around chemo. DX E11.9 45 mL 3 4 Active Lenalidomide 10 MG Oral Capsule (Revlimid)Indicat ions:Multiple myeloma not having achieved remission (HCC) Take one cap by mouth daily for 21 days on, 7 days off of a 28 day cycle 21 Capsule 0 4 Active Morphine Sulfate 15 MG Oral Tablet (Msir)Indications :Metastatic cancer to bone (HCC),Cancer related pain,Multiple myeloma not having achieved remission (HCC) Take 1 Tablet by mouth every 4 hours as needed for Pain, Severe. 120 Tablet 0 4 Active Atorvastatin Calcium 40 MG Oral Tablet (Lipitor)Indicati ons:Dyslipidemia, goal LDL below 70 TAKE 1 TABLET BY MOUTH EVERY DAY 90 Tablet 3 4 Active Fluticasone Propionate 50 MCG/ACT Nasal Suspension (Flonase)Indicati ons:ETD (Eustachian tube dysfunction), right Administer 2 Sprays into each nostril in the morning. 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 12/06/2023 HFrEF (heart failure with reduced ejection fract ion) 12/06/2023 COPD, group B, by GOLD 2017 classification 09/27 Overview: Per COPD GOLD Classification Chronic kidney disease, stage 3a 08/30/2023 Overview: Per CKD protocol Protein-calorie malnutrition 08/02/2023 ILD (interstitial lung disease) 06/14/2023 Chronic systolic (congestive) heart failure 05/2022 Coronary artery disease invo lving [place] [...] Gastroesophageal reflux disease without esophagi tis 03/15/2019 long term (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 of insulin 11/25/2018 Paroxysmal atrial [...] as of this encounter (statuses as of 02/11/2024) Resolved Problems Problem Noted Date Diagnosed Date [...] of inactive term lentigo maligna,rt tenriism 07/05/2002 05/26/2018 Rosacea 07/28/2001 05/26/2018 LOC PRIM [id number] 07/28/200106/2018 documented as of this encounter (statuses as of 02/11/2024) Immunizations Name Administration Dates Next Due COVID-19 [...] encounter Miscellaneous Notes * Telephone Encounter - Mattie Parks OSA - 02/11/2024 11:03 AM EDT Added to schedule * Addendum Note - Sloan Valderrama RN - 02/11/2024 10:59 AM EDTAddended by: SLOAN VALDERRAMA on: 02/11/2024 10:59 AM Modules accepted: Orders * Telephone Encounter - Sloan Valderrama RN - 02/11/2024 10:50 AM EDT Called and spoke with patients . Would like to come today for lab work. Scheduling- Please schedule patient for lab apt today at [facility] @ 2:30PM "[facility]" * Telephone Encounter - Sloan Valderrama RN - 02/09/2024 1:29 PM EDT Called patient as MyG has not been read. No answer, unable to leave VM on phone. * Telephone Encounter - Sloan Valderrama RN - 02/07/2024 9:[address] Garcia- repeat lab work this week. MyG sent to patient. * Telephone Encounter - Sloan Valderrama RN - 02/04/2024 9:32 AM EDT Called [facility], they received patients blood so he will be able to have his transfusion this morning. Jeff Powell RN aware. * Addendum Note - Sloan Valderrama RN - 02/03/2024 12:35 PM EDTAddended by: SLOAN VALDERRAMA on: 02/03/2024 12:35 PM Modules accepted: Orders * Telephone Encounter - Sloan Valderrama RN - 02/03/2024 12:[address] Garcia- schedule patient for transfusion 1U PRBC. Called [facility], they are able to schedule the patient tomorrow at 10AM. Called [facility], they state that patient had antibodies with last type and screen, they may not have a unit available tomorrow for him. Called patient, he is aware that he has an appointment for blood tomorrow at 10AM, he is going to the lab to have T&S at 1PM. Message sent to Jeff Sherry [facility] he goes tomorrow. * Telephone Encounter - Sloan Valderrama RN - 02/03/2024 10:[address] Garcia- please review patients labs from yesterday. Hgb is 6.9 , would you like him scheduled for a transfusion? documented in this encounter Plan of Treatment Upcoming Encounters Date Type Department Care Team (Late st Contact Info) Description 02/11/2024 2:30 PM EDT Laboratory Laboratory [facility] [place] [address] [facility] [place] [phone] [place] [address] [address] [facility] [place] [address] 02/23/2024 1:30 PM EDT Laboratory Laboratory [facility] [place] [address] [facility] [place] [phone] Allen Ramirez [place] [address] [address] [facility] [place] [address] 02/23/2024 2:00 PM EDT Office Visit Hematology/Oncology [facility] [place] [address] [place] [phone] Chito Garcia MD 200 [facility] [place] [address] 02/23/2024 2:30 PM EDT Immunization/Injecti on Hematology/Oncology Treatment, [address] [place] [phone] [place], Chair 5 Hem Onc [facility] [address] [place] [address] 02/23/2024 6:15 PM EDT Scheduled Telephone Pharmacy Hematology Oncology [facility], [place] [address] [place] [address] [place], [facility] Hem/Onc Tech [address] [place] [address] 03/01/2024 9:00 AM EDT Pharmacy Pharmacy Hematology Oncology [facility], [place] [address] [place] [address] [facility], [facility] Hem/Onc [address] [place] [address] 04/17/2024 3:40 PM EDT Office Visit [facility] [address] [place] [address] Landen Macario, DO [address] [place] [address] 05/09/2024 2:50 PM EDT Office Visit Pharmacy, [facility] [place] [address] [place] [address] Pharmacist1, [facility] Sp [address] [facility] [place] [address] 05/09/2024 3:20 PM EDT Office Visit [facility] [address] [place] [address] Landen Macario, DO [address] [facility] [place] [address] Scheduled Orders Name Type Priority Associated Diagnoses Orde r Schedule TYPE AND SCREEN Lab Routine Multiple myeloma not having achieved remission (HCC) Expected: 02/03/2024, Expires: 03/04/2025 CBC WITH WBC DIFFERENTIAL Lab STAT Multiple myeloma not having achieved remission (HCC) Expected: 02/11/2024, Expires: 02/10/2025 Health Maintenance Due Date Last Done Comments [...] Additional history exists CKD PHOS USE SMARTSET 57832 12/29/202412/16, 12/02/2023, 09/21/2023, Additional history exists B-12 01/16/2025 01/17/2024, 02/15, 04/21/2022, Additional history exists DIG LEVEL FOR MEDICATION MONITORING YEARLY 01/16/2025 01/17/2024, 01/04/2023, 10/08/2022, Additional history exists O2 ASSESSMENT COMPLETED IN PAST YEAR FOR COPD 01/23/2025 01/24/2024 CKD HGB USE SMARTSET 98244 02/01/202502/01, 02/02/2024, 01/24/2024, Additional history exists DTaP,Tdap,and Td Vaccines (2 [...] this encounter Medical Devices Implanted Type Area Investigator Claims Device Identifier Shelf Expiration Date Model / Serial / Lot Lens Intraoc 24.0 - [id number] - [id number] Implanted:Qty: 1 on 08/16/2018 by Adan Colon MD at OR [facility] Right: Eye [employer]OMB 11/17/2022 [id number] / [id number] / [id number] Lens Intraoc 24.0 - [id number] - [id number] Implanted:Qty: 1 on 08/23/2018 by Adan Colon MD at OR [facility] Left: Eye BAUSCH [employer] LOMB 06/17/2023 [id number] / [id number] / [id number] Screw [employer] 3.4rlp11kk - [id number] Implanted:Qty: 1 on 12/07/2019 by Amilcar Saavedra MD at OR [facility] Left: Foot EXACTECH [id number] / / [employer]w [employer] 3.1cei74uf - [id number] Implanted:Qty: 1 on 12/07/2019 by Amilcar Saavedra MD at OR [facility] Left: Foot EXACT[employer]CH [id number] / / documented as of this encounter [...] and were consensually agreed upon. Care Teams Distribution Operations Supervisor Relationship Specialty Start Date End Date Landen Macario DO [facility] [address] PCP - General Family Medicine 02/09/22 documented as of this encounter
--- OUTSIDE RECORDS SUMMARY | 2024-02-14 22:46 | External Medical Summary | Summary of Care ---
Author Name Unknown Organization [facility] Address [address] [facility] [facility] [address] Phone [phone] Care Team Providers Care Tube Drawing Supervisor Name Role Phone Landen Macario DO Primary Care Provider [phone] Reason for Visit * Reason Onset Date Comments Test Results Lab 02/03/2024 Encounter Details Date Type Department Care Team (Late st Contact Info) Description 02/03/2024 Telephone Hematology/Oncology [facility] [place] [address] [place] [phone] Chito Garcia MD [address] [place] [address] Test Results Lab Allergies Active Allergy Reactions Criticality Noted Date Comments Tizanidine 06/27/2021 documented as of this encounter (statuses as of 02/11/2024) Medications Medication Sig Dispensed Refills Start Date End Date Status LANCET DEVICE MISCIndications:D M type 2, not at goal (HCC) test bid 100 3 7 Active OMEGA 3 1000 MG PO CAPSIndications:C hronic ischemic heart disease,Dyslipide asrath, goal LDL below 70 2 per day [...] or Wheezing. 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 12/06/2023 HFrEF (heart failure with reduced ejection fract ion) 12/06/2023 COPD, group B, by GOLD 2017 classification 09/27 Overview: Per COPD GOLD Classification Chronic kidney disease, stage 3a 08/30/2023 Overview: Per CKD protocol Protein-calorie malnutrition 08/02/2023 ILD (interstitial lung disease) 06/14/2023 Chronic systolic (congestive) heart failure 05/2022 Coronary artery disease invo lving [place] coronary artery of [place] heart without angina pectoris 06/25/2022 Presence of [...] reflux disease without esophagi tis 03/15/2019 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 11/25/2018 Paroxysmal atrial [...] 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,rt yazidi 07/05/2002 05/26/2018 Rosacea 07/28/2001 05/26/2018 LOC PRIM [id number] 07/28/200106/2018 documented as of this encounter (statuses [...] schedule patient for lab apt today at [facility] @ 2:30PM "[facility]" * Telephone Encounter - [...] RN - 02/04/2024 9:32 AM EDT Called [facility], they received patients blood so [...] sent [facility] Jeff Sherry [facility] when he goes [...] Description 02/23/2024 1:30 PM EDT Laboratory Laboratory [facility] [address] [place] [phone] Allen Ramirez [address] [place] [address] 02/23/2024 2:00 PM EDT Office Visit Hematology/Oncology [facility] [place] [address] [place] [phone] Chito Garcia MD 200 [facility] [place] [address] 02/23/2024 2:30 PM EDT Immunization/Injecti on Hematology/Oncology Treatment, [place] 200 [facility] [place] [phone] [place], Chair 5 Hem Onc [place] [address] [place] [address] 02/23/2024 6:15 PM EDT Scheduled Telephone Pharmacy Hematology Oncology [facility], [place] [address] [place] [facility] [place] [address] [facility] Hem/Onc [facility] [address] [place] [address] 03/01/2024 9:00 AM EDT Pharmacy Pharmacy Hematology Oncology [facility], [place] [address] [place] [address] [facility], [facility] Hem/Onc [address] [place] [address] 04/17/2024 3:40 PM EDT Office Visit [facility] [address] [place] [address] Landen Macario, DO [address] [facility] [address] [place] [address] 05/09/2024 2:50 PM EDT Office Visit Pharmacy, [facility] [place] [address] [place] [address] Pharmacist1, [facility] Sp [address] [place] [address] 05/09/2024 3:20 PM EDT Office Visit [facility] [address] [place] [address] Landen Macario, DO [address] [place] [address] Scheduled Orders Name Type Priority Associated Diagnoses Orde r Schedule TYPE AND SCREEN Lab Routine Multiple myeloma not having achieved remission (HCC) Expected: 02/03/2024, Expires: 03/04/2025 Health Maintenance Due Date Last Done Comments [...] Depression Screening 05/20/2023 05/20/2022 HbA1c 06/28/2024 12/27/2023, 1202/2023, 06/14/2023, Additional history exists GFR 08/03/2024 02/02/2024, 04/0 10/2023, 12/30/2023, Additional history exists Diabetic Eye Exam 09/30/2024 09/30/2023, , 09/03/2021, Additional history exists CKD PHOS USE SMARTSET 07962 12/29/202412/16, 12/02/2023, 09/21/2023, Additional history exists B-12 01/16/2025 01/17/2024, 02/15, 04/21/2022, Additional history exists DIG LEVEL FOR MEDICATION MONITORING YEARLY 01/16/2025 01/17/2024, 01/04/2023, 10/08/2022, Additional history exists O2 ASSESSMENT COMPLETED IN PAST YEAR FOR COPD 01/23/2025 01/24/2024 CKD HGB USE SMARTSET 75475 02/10/202502/10, 02/11/2024, 02/02/2024, Additional history exists DTaP,Tdap,and [...] encounter Medical Devices Implanted Type Area Supervisor Pairing And Inspecting Device Identifier Shelf Expiration Date Model / Serial / Lot Lens Intraoc 24.0 - [id number] - [id number] Implanted:Qty: 1 on 08/16/2018 by Adan Colon MD at OR [facility] Right: Eye BA[employer]CH [employer]OMB 11/17/2022 [id number] / [id number] / [id number] Lens Intraoc 24.0 - [id number] - [id number] Implanted:Qty: 1 on 08/23/2018 by Adan Colon MD at OR [facility] Left: Eye BAUSCH & LOMB 06/17/2023 [id number] / [id number] / [id number] Scre[employer] 3.7vuv33qt - [id number] Implanted:Qty: 1 on 12/07/2019 by Amilcar Saavedra MD at OR [facility] Left: Foot EXACTECH [id number] / / [employer]w [employer] 3.2fhl27rm - [id number] Implanted:Qty: 1 on 12/07/2019 by Amilcar Saavedra MD at OR [facility] Left: Foot EXACTECH [id number] / / documented as of this encounter [...] and were consensually agreed upon. Care Teams Tube Drawing Supervisor Relationship Specialty Start Date End Date Landen Macario DO [address] [place] [address] PCP - General Family Medicine 02/09/22 documented as of this encounter
--- OUTSIDE RECORDS SUMMARY | 2024-02-14 22:46 | External Medical Summary | Summary of Care ---
Author Name Unknown Organization [facility] Address [address] [place] [address] Phone [phone] Care Team Providers Care Type Inspector Name Role Phone RoselynLanden cameron Primary Care Provider [phone] Reason for Visit * Reason Comments Outpatient Testing Encounter Details Date Type Department Care Team (Late st Contact Info) Description 02/11/2024 2:30 PM EDT Laboratory Laboratory [facility] [address] [place] [phone] [facility] 200 [facility] [place] [address] Multiple myeloma not having achieved remission (HCC) [...] or Wheezing. 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 12/06/2023 HFrEF (heart failure with reduced ejection fract ion) 12/06/2023 COPD, group B, by GOLD 2017 classification 09/27 Overview: Per COPD GOLD Classification Chronic kidney disease, stage 3a 08/30/2023 Overview: Per CKD protocol Protein-calorie malnutrition 08/02/2023 ILD (interstitial lung disease) 06/14/2023 Chronic systolic (congestive) heart failure 05/2022 Coronary artery disease invo lving [place] coronary artery of [place] heart without angina pectoris 06/25/2022 Presence of [...] Gastroesophageal reflux disease without esophagi tis 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 11/25/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 Paroxysmal atrial [...] 07/05/2002 05/26/2018 Rosacea 07/28/2001 05/26/2018 LOC PRIM [id number] 07/28/200106/2018 documented as of this encounter (statuses [...] Description 02/23/2024 1:30 PM EDT Laboratory Laboratory [place] [address] [place] [phone] Allen Ramirez [facility] [address] [place] [address] 02/23/2024 2:00 PM EDT Office Visit Hematology/Oncology [place] [address] [place] [phone] Chito Garcia MD [address] [place] [address] 02/23/2024 2:30 PM EDT Immunization/Injecti on Hematology/Oncology Treatment, [place] [address] [place] [phone] [place], Chair 5 Hem Onc [facility] 200 [facility] [place] [address] 02/23/2024 6:15 PM EDT Scheduled Telephone Pharmacy Hematology Oncology [facility] [place] [address] [place] [address] [facility] Hem/Onc [facility] [address] [place] [address] 03/01/2024 9:00 AM EDT Pharmacy Pharmacy Hematology Oncology [place] [address] [place] [address] [facility], [facility] Hem/Onc [facility] [place] [address] 04/17/2024 3:40 PM EDT Office Visit [facility] [place] [address] [place] [address] Landen Macario, DO [address] [place] [address] 05/09/2024 2:50 PM EDT Office Visit Pharmacy, [facility] [place] [address] [place] [address] Pharmacist1, [facility] Sp [address] [facility] [place] [address] 05/09/2024 3:20 PM EDT Office Visit [facility] [place] [address] [place] [address] Landen Macario, DO [address] [place] [address] Pending Results Name Type Priority Associated Diagnoses Date /Time CBC WITH WBC DIFFERENTIAL Lab STAT Multiple myeloma not having achieved remission (HCC) 02/11/2024 2:12 PM EDT CBC Lab STAT Multiple myeloma not having achieved remission (HCC) 02/11/2024 2:12 PM EDT DIFFERENTIAL, AUTOMATED Lab STAT Multiple myeloma not having achieved remission (HCC) 02/11/2024 2:12 PM EDT Health Maintenance Due Date Last Done [...] Additional history exists CKD PHOS USE SMARTSET 51932 12/29/202412/16, 12/02/2023, 09/21/2023, Additional history exists B-12 01/16/2025 01/17/2024, 02/15, 04/21/2022, Additional history exists DIG LEVEL FOR MEDICATION MONITORING YEARLY 01/16/2025 01/17/2024, 01/04/2023, 10/08/2022, Additional history exists O2 ASSESSMENT COMPLETED IN PAST YEAR FOR COPD 01/23/2025 01/24/2024 CKD HGB USE SMARTSET 46785 02/01/202502/01, 02/02/2024, 01/24/2024, Additional history exists DTaP,Tdap,and [...] this encounter Medical Devices Implanted Type Area Psychologist Personnel Device Identifier Shelf Expiration Date Model / Serial / Lot Lens Intraoc 24.0 - [id number] - [id number] Implanted:Qty: 1 on 08/16/2018 by Adan Colon MD at OR [facility] Right: Eye [employer]CH [employer] LOMB 11/17/2022 [id number] / [id number] / [id number] Lens Intraoc 24.0 - [id number] - [id number] Implanted:Qty: 1 on 08/23/2018 by Adan Colon MD at OR [facility] Left: Eye BAUSCH & LOMB 06/17/2023 [id number] / [id number] / [id number] Screw [employer] 3.6zea00ig - [id number] Implanted:Qty: 1 on 12/07/2019 by Amilcar Saavedra MD at OR [facility] Left: Foot EXACTECH [id number] / / Screw [employer] 3.6kts94uu - [id number] Implanted:Qty: 1 on 12/07/2019 by Amilcar Saavedra MD at OR [facility] Left: Foot EXACTECH [id number] / / documented as of this encounter [...] and were consensually agreed upon. Care Teams Type Inspector Relationship Specialty Start Date End Date Landen Macario DO [address] [place] [facility] [place] [address] PCP - General Family Medicine 02/09/22 documented as of this encounter
--- OUTSIDE RECORDS SUMMARY | 2024-02-14 22:47 | External Medical Summary ---
Author Name Unknown Address Unknown Organization K09:[facility] [address] Laboratory Report Ordering Provider Test Date Status ANIBAL FIERRO 02/11/2024 14:12:48 Final Observation Date Value Abnormality Reference (Units ) Status Nucleated erythrocytes/100 leukocytes [Ratio] in Blood by Automated count 02/11/2024 14:12:48 Final Performing Location [facility] [address]
--- OUTSIDE RECORDS SUMMARY | 2024-02-14 22:47 | External Medical Summary | Summary of Care ---
Author Name Unknown Organization [facility] Address [address] [address] Phone [phone] Care Team Providers Care Organizational Consultant Name Role Phone Landen Macario Primary Care Provider [phone] Reason for Visit * Reason Onset Date Comments Test Results Lab 02/03/2024 Encounter Details Date Type Department Care Team (Late st Contact Info) Description 02/03/2024 Telephone Hematology/Oncology [facility] [place] [address] [place] [address] Chito Garcia MD [address] [place] [address] Test Results Lab Allergies Active Allergy Reactions Criticality Noted Date Comments Tizanidine 06/27/2021 documented as of this encounter (statuses as of 02/07/2024) Medications Medication Sig Dispensed Refills Start Date [...] or Wheezing. 18 g 3 04/03/2022 Active K70-Qpngke 1 MG Oral Tablet Chewable (Methylcobalamin) Take [...] 1 Each 3 03/04/2023 Active Dexcom G7 Portable Sawmill Operator Device Use to check blood sugar [...] before bedtime. 180 Tablet 3 10/13/2023 Active Fluticasone Propionate 50 MCG/ACT Nasal Suspension (Flonase)Indication s:ETD (Eustachian tube dysfunction), right Administer 2 Sprays into each nostril in the morning. 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 12/06/2023 HFrEF (heart failure with reduced ejection fract ion) 12/06/2023 COPD, group B, by GOLD 2017 classification 09/27 Overview: Per COPD GOLD Classification Chronic kidney disease, stage 3a 08/30/2023 Overview: Per CKD protocol Protein-calorie malnutrition 08/02/2023 ILD (interstitial lung disease) 06/14/2023 Chronic systolic (congestive) heart failure 09/0 05/2022 Coronary artery disease invo lving [place] coronary artery of [place] heart without angina pectoris 06/25/2022 Presence of [...] as of this encounter (statuses as of 02/07/2024) Resolved Problems Problem Noted Date Diagnosed Date [...] of inactive term lentigo maligna,rt taoist 07/05/2002 05/26/2018 Rosacea 07/28/2001 05/26/2018 LOC PRIM [id number] 07/28/200106/2018 documented as of this encounter (statuses as of 02/07/2024) Immunizations Name Administration Dates Next Due COVID-19 mRNA, LNP-s, No Pre serve, 2-Dose Series (Moderna) 08/27/2021,01/04/2021,12/02/2020 COVID-19, MRNA-LNP, 23-24, P F, 50 MCG/0.5 mL, 12 YRS AND ABOVE, IM (MODERNA-Spikevax) 08/18/2023 COVID-19, mRNA, LNP-s, PF, B ooster, 100mcg/0.5mg (Moderna) 05/07/2022 Covid-19, Mrna, Lnp-s, Pf, B ivalent, 30 Mcg, IM, 12 yrs and above (Localist) 09/04/2022 H1N1 2009 Influenza, IM 09/22/2009 Hepatitis [...] Telephone Encounter - Sloan Torres RN - 02/07/2024 9:[address] Garcia- repeat lab work this week. MyG sent to patient. * Telephone Encounter - Sloan Torres RN - 02/04/2024 9:32 AM EDT Called [facility], they received patients blood so he will be able to have his transfusion this morning. Jeff Powell RN aware. * Addendum Note - Sloan Torres RN - 02/03/2024 12:35 PM EDTAddended by: SLOAN TORRES on: 02/03/2024 12:35 PM Modules accepted: Orders * Telephone Encounter - Sloan Torres RN - 02/03/2024 12:02 PM EDT Per [...] T&S at 1PM. Message sent to Jeff Powell to see if [facility] hospitalist can consent the patient when he goes tomorrow. * Telephone Encounter - Sloan Torres RN - 02/03/2024 10:[address] Garcia- please review patients labs from yesterday. Hgb is 6.9 , would you like him scheduled for a transfusion? documented in this encounter Plan of Treatment Upcoming Encounters Date Type Department Care Team (Late st Contact Info) Description 02/23/2024 1:30 PM EDT Laboratory Laboratory [facility] [address] [phone] Allen Ramirez [address] [place] [address] [address] 02/23/2024 2:00 PM EDT Office Visit Hematology/Oncology [facility] [employer] [address] [place] [address] [phone] Chito Garcia MD [address] [place] [address] [address] 02/23/2024 2:30 PM EDT Immunization/Injecti on Hematology/Oncology Treatment, [place] [address] [place] [phone] Nurse, Med [address] [place] [address] [address] 02/23/2024 6:15 PM EDT Scheduled Telephone Pharmacy Hematology Oncology [place] [address] [place] [address] [facility] Hem/Onc [facility] [address] [place] [address] 03/01/2024 9:00 AM EDT Pharmacy Pharmacy Hematology Oncology [facility] [address] [place] [address] [facility], [facility] Hem/Onc [address] [place] [address] 04/17/2024 3:40 PM EDT Office Visit [facility] [address] [place] [address] Landen Macario, DO [address] [place] [address] [address] 05/09/2024 2:50 PM EDT Office Visit Pharmacy, [facility] [place] [address] [address] Pharmacist1, [facility] [place] [address] [place] [address] 05/09/2024 3:20 PM EDT Office Visit [facility] [place] [address] [place] [address] [address] Landen Macario, DO [address] [place] [address] Scheduled Orders Name Type Priority Associated Diagnoses [...] Additional history exists CKD PHOS USE SMARTSET 62063 12/29/202412/16, 12/02/2023, 09/21/2023, Additional history exists B-12 01/16/2025 01/17/2024, 02/15, 04/21/2022, Additional history exists DIG LEVEL FOR MEDICATION MONITORING YEARLY 01/16/2025 01/17/2024, 01/04/2023, 10/08/2022, Additional history exists O2 ASSESSMENT COMPLETED IN PAST YEAR FOR COPD 01/23/2025 01/24/2024 CKD HGB USE SMARTSET 35861 02/01/202502/01, 02/02/2024, 01/24/2024, Additional history exists DTaP,Tdap,and [...] this encounter Medical Devices Implanted Type Area Technical Operations Vice President Device Identifier Shelf Expiration Date Model / Serial / Lot Lens Intraoc 24.0 - [id number] - [id number] Implanted:Qty: 1 on 08/16/2018 by Adan Colon MD at OR [facility] Right: Eye [employer] 11/17/2022 [id number] / [id number] / [id number] Lens Intraoc 24.0 - [id number] - [id number] Implanted:Qty: 1 on 08/23/2018 by Adan Colon MD at OR [facility] Left: Eye BAUSCH [employer] LOMB 06/17/2023 [id number] / [id number] / [id number] Screw [employer] 3.1hga77rh - [id number] Implanted:Qty: 1 on 12/07/2019 by Amilcar Saavedra MD at OR [facility] Left: Foot EXACTECH [id number] / / Screw [employer] 3.1ymc10fo - [id number] Implanted:Qty: 1 on 12/07/2019 by Amilcar Saavedra MD at OR [facility] Left: Foot EXACTECH [id number] / / documented as of this encounter [...] and were consensually agreed upon. Care Teams Organizational Consultant Relationship Specialty Start Date End Date Landen Macario DO [address] [place] [address] PCP - General Family Medicine 02/09/22 documented as of this encounter
--- OUTSIDE RECORDS SUMMARY | 2024-02-14 22:47 | External Medical Summary ---
Author Name Unknown Address Unknown Organization K09:[facility] [address] [place] [address] Laboratory Report Ordering Provider Test Date Status ANIBAL FIERRO 02/11/2024 14:12:48 Final Observation Date Value Abnormality Reference (Units ) Status SYNC LEUKOCYTES IN BLOOD BY AUTOMATED COUNT 02/11/2024 14:12:48 3.48 Below low normal 4.00-10.80 (K/uL) Final Segs 02/11/2024 14:12:48 56.6 40.0-75.0 (%) Final Lymphs % 02/11/2024 14:12:48 22.7 18.0-42.0 (%) Final Monos 02/11/2024 14:12:48 19.0 Above high normal 1.0-11.0 (%) Final Eosinophils 02/11/2024 14:12:48 1.7 0.0-6.0 (%) Final Basos 02/11/2024 14:12:48 0.0 0.0-2.0 (%) Final Absolute Segs 02/11/2024 14:12:48 1.97 1.80-7.70 (K/uL) Final Lymphs, absolute 02/11/2024 14:12:48 0.79 Below low normal 1.00-4.80 (K/ul) Final Monos, Abs 02/11/2024 14:12:48 0.66 0.00-1.10 (K/uL) Final Eos, Abs 02/11/2024 14:12:48 0.06 0.00-0.70 (K/uL) Final Basos, Abs 02/11/2024 14:12:48 0.00 0.00-0.20 (K/uL) Final Performing Location [facility] [address] [place] [address]
--- OUTSIDE RECORDS SUMMARY | 2024-02-14 22:47 | External Medical Summary | Summary of Care ---
Author Name Unknown Organization [facility] Address [address] [facility] [facility] [address] Phone [phone] Care Team Providers Care Retail Planning Manager Name Role Phone Landen Macario DO Primary Care Provider [phone] Reason for Visit * Reason Onset Date Comments Test Results Lab 02/03/2024 Encounter Details Date Type Department Care Team (Late st Contact Info) Description 02/03/2024 Telephone Hematology/Oncology [facility] [place] [address] [place] [phone] Chito Garcia MD [address] [place] [address] Test Results Lab Allergies Active Allergy Reactions [...] or Wheezing. 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 Would like to come today for lab work. Scheduling- Please schedule patient for lab apt today at [facility] @ 2:30PM "[facility]" * Telephone Encounter - [...] RN - 02/04/2024 9:32 AM EDT Called [facility], they received patients blood [...] sent to Jeff Powell to see if [facility] hospitalist can consent the patient when he [...] Description 02/23/2024 1:30 PM EDT Laboratory Laboratory [facility] [place] [address] [place] [phone] Allen Ramirez [address] [place] [address] 02/23/2024 2:00 PM EDT Office Visit Hematology/Oncology [facility] [place] [address] [facility] [place] [phone] Chito Garcia MD [address] [facility] [place] [address] 02/23/2024 2:30 PM EDT Immunization/Injecti on Hematology/Oncology Treatment, [place] [address] [place] [phone] Ashley, Chair [address] Hem Onc [address] [place] [address] 02/23/2024 6:15 PM EDT Scheduled Telephone Pharmacy Hematology Oncology [facility], [place] [address] [place] [address] [facility] Hem/Onc [place] [address] [place] [address] 03/01/2024 9:00 AM EDT Pharmacy Pharmacy Hematology Oncology [facility], [place] [address] [place] [address] [facility] Hem/Onc [address] [place] [address] 04/17/2024 3:40 PM EDT Office Visit [facility] [address] [facility] [place] [address] Landen Macario, DO [address] [facility] [place] [place] [address] 05/09/2024 2:50 PM EDT Office Visit Pharmacy, [facility] [address] [facility] [place] [address] Pharmacist1, [facility] [address] [facility] [place] [address] 05/09/2024 3:20 PM EDT Office Visit [facility] 200 [facility] [place] [address] Landen Macario, DO [address] [facility] [place] [address] Scheduled Orders Name Type Priority Associated Diagnoses [...] Additional history exists CKD PHOS USE SMARTSET 08205 12/29/202412/16, 12/02/2023, 09/21/2023, Additional history exists B-12 01/16/2025 01/17/2024, 02/15, 04/21/2022, Additional history exists DIG LEVEL FOR MEDICATION MONITORING YEARLY 01/16/2025 01/17/2024, 01/04/2023, 10/08/2022, Additional history exists O2 ASSESSMENT COMPLETED IN PAST YEAR FOR COPD 01/23/2025 01/24/2024 CKD HGB USE SMARTSET 17838 02/01/202502/01, 02/02/2024, 01/24/2024, Additional history exists DTaP,Tdap,and [...] this encounter Medical Devices Implanted Type Area Cylinder Handler Device Identifier Shelf Expiration Date Model / Serial / Lot Lens Intraoc 24.0 - [id number] - [id number] Implanted:Qty: 1 on 08/16/2018 by Aadn Colon MD at OR [facility] Right: Eye [employer]OM[employer] 11/17/2022 [id number] / [id number] / [id number] Lens Intraoc 24.0 - [id number] - [id number] Implanted:Qty: 1 on 08/23/2018 by Adan Colon MD at OR [facility] Left: Eye BAUSCH & LOMB 06/17/2023 [id number] / [id number] / [id number] Screw [employer] 3.8nsl80vy - [id number] Implanted:Qty: 1 on 12/07/2019 by Amilcar Saavedra MD at OR [facility] Left: Foot EXACTECH 9522-2924 / / Screw [employer] 3.5cwi63hh - [id number] Implanted:Qty: 1 on 12/07/2019 by Amilcar Saavedra MD at OR [facility] Left: Foot EXACTECH 8945-1717 / / documented as of this encounter [...] and were consensually agreed upon. Care Teams Retail Planning Manager Relationship Specialty Start Date End Date Landen Macario DO [address] [place] [address] PCP - General Family Medicine 02/09/22 documented as of this encounter
--- OUTSIDE RECORDS SUMMARY | 2024-02-14 22:47 | External Medical Summary | Summary of Care ---
Author Name Unknown Organization [facility] Address [address] [facility] [address] Phone [phone] Care Team Providers Care Retail Service Lead Merchandiser Name Role Phone Landen Macario Primary Care Provider [phone] Reason for Visit * Reason Onset Date Comments Test Results Lab 02/03/2024 Encounter Details Date Type Department Care Team (Late st Contact Info) Description 02/03/2024 Telephone Hematology/Oncology [facility] [place] [address] [place] [address] Chito Garcia MD [address] [place] [address] Test Results Lab Allergies Active Allergy Reactions Criticality Noted Date Comments Tizanidine 06/27/2021 documented as of this encounter (statuses as of 02/09/2024) Medications Medication Sig Dispensed Refills Start Date [...] or Wheezing. 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 12/06/2023 HFrEF (heart failure with reduced ejection fract ion) 12/06/2023 COPD, group B, by GOLD 2017 classification 09/27 Overview: Per COPD GOLD Classification Chronic kidney disease, stage 3a 08/30/2023 Overview: Per CKD protocol Protein-calorie malnutrition 08/02/2023 ILD (interstitial lung disease) 06/14/2023 Chronic systolic (congestive) heart failure 09/0 05/2022 Coronary artery disease invo lving grindstone coronary [...] Gastroesophageal reflux disease without esophagi tis 03/15/2019 [facility] (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 of insulin 11/25/2018 Paroxysmal atrial [...] as of this encounter (statuses as of 02/09/2024) Resolved Problems Problem Noted Date Diagnosed Date [...] 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,rt zoroastrian 07/05/2002 05/26/2018 Rosacea 07/28/2001 05/26/2018 LOC PRIM [id number] 07/28/200106/2018 documented as of this encounter (statuses as of 02/09/2024) Immunizations Name Administration Dates Next Due COVID-19 mRNA, LNP-s, No Pre serve, 2-Dose Series (Moderna) 08/27/2021,01/04/2021,12/02/2020 COVID-19, MRNA-LNP, 23-24, P F, 50 MCG/0.5 mL, 12 YRS AND ABOVE, IM (MODERNA-Spikevax) 08/18/2023 COVID-19, mRNA, LNP-s, PF, B ooster, 100mcg/0.5mg (Moderna) 05/07/2022 Covid-19, Mrna, Lnp-s, Pf, B ivalent, 30 Mcg, IM, 12 yrs and above (Mozenda) 09/04/2022 H1N1 2009 Influenza, IM 09/22/2009 Hepatitis [...] Miscellaneous Notes * Telephone Encounter - Sloan Valderrama RN [...] RN - 02/04/2024 9:32 AM EDT Called [facility], they received patients blood so he [...] sent to Jeff Powell to see if [facility] hospitalist can consent the patient when he [...] Description 02/23/2024 1:30 PM EDT Laboratory Laboratory [place] [address] [place] [phone] Allen Ramirez [facility] [address] [place] [address] 02/23/2024 2:00 PM EDT Office Visit Hematology/Oncology [facility] [place] [address] [place] [place] [phone] Chito Garcia MD [address] [place] [address] 02/23/2024 2:30 PM EDT Immunization/Injecti on Hematology/Oncology Treatment, [place] [address] [facility] [address] [place] [phone] Nurse, Med [address] [place] [address] 02/23/2024 6:15 PM EDT Scheduled Telephone Pharmacy Hematology Oncology [facility] [address] [place] [address] [facility] Hem/Onc [facility] [address] [place] [address] 03/01/2024 9:00 AM EDT Pharmacy Pharmacy Hematology Oncology [facility] [address] [place] [address] [facility] Hem/Onc [address] [place] [address] 04/17/2024 3:40 PM EDT Office Visit Family Practice [facility] [place] [address] [place] [address] Landen Macario, DO [address] [place] [address] 05/09/2024 2:50 PM EDT Office Visit Pharmacy, [facility] [place] [address] [place] [address] Pharmacist1, [facility] [address] [place] [address] 05/09/2024 3:20 PM EDT Office Visit Family Practice [place] [place] [address] [facility] [place] [address] Landen Macario DO 200 [facility] [address] Scheduled Orders Name Type Priority Associated Diagnoses [...] Additional history exists CKD PHOS USE SMARTSET 30965 12/29/202412/16, 12/02/2023, 09/21/2023, Additional history exists B-12 01/16/2025 01/17/2024, 02/15, 04/21/2022, Additional history exists DIG LEVEL FOR MEDICATION MONITORING YEARLY 01/16/2025 01/17/2024, 01/04/2023, 10/08/2022, Additional history exists O2 ASSESSMENT COMPLETED IN PAST YEAR FOR COPD 01/23/2025 01/24/2024 CKD HGB USE SMARTSET 49253 02/01/202502/01, 02/02/2024, 01/24/2024, Additional history exists DTaP,Tdap,and [...] this encounter Medical Devices Implanted Type Area Travel Coordinator Device Identifier Shelf Expiration Date Model / Serial / Lot Lens Intraoc 24.0 - [id number] - [id number] Implanted:Qty: 1 on 08/16/2018 by Adan Colon MD at OR [facility] Right: Eye [employer] 11/17/2022 [id number] / [id number] / [id number] Lens Intraoc 24.0 - [id number] - [id number] Implanted:Qty: 1 on 08/23/2018 by Adan Colon MD at OR [facility] Left: Eye [employer]CH [employer]OMB 06/17/2023 [id number] / [id number] / [id number] Screw [employer] 3.5dep97vq - [id number] Implanted:Qty: 1 on 12/07/2019 by Amilcar Saavedra MD at OR [facility] Left: Foot EXACTECH [id number] / / Screw [employer] 3.7ugz60uh - [id number] Implanted:Qty: 1 on 12/07/2019 by Amilcar Saavedra MD at OR [facility] Left: Foot EXACTECH [id number] / / documented as of this encounter [...] were consensually agreed upon. Care Teams Retail Service Lead Merchandiser Relationship Specialty Start Date End Date Landen Macario DO [address] [place] [address] PCP - General Family Medicine 02/09/22 documented as of this encounter
--- OUTSIDE RECORDS SUMMARY | 2024-02-14 22:47 | External Medical Summary | Summary of Care ---
Author Name Unknown Organization [facility] Address [address] [place] [facility] [place] [place] [address] Phone [phone] Care Team Providers Care Family Intervention Specialist Name Role Phone Yassine Albert DO Primary Care Provider [phone] Reason for Visit * Reason Comments eRx-Medication Refill Encounter Details Date Type Department Care Team (Late st Contact Info) Description 02/09/2024 Refill Family Practice [facility] [address] [facility] [place] [address] Yassine Albert DO [address] [facility] [place] [address] ETD (Eustachian tube dysfunction), right Allergies Active Allergy Reactions Criticality Noted Date [...] or Wheezing. 18 g 3 2 Active S08-Dwpqcp 1 MG Oral Tablet Chewable (Methylcobalamin) Take [...] 1 Each 3 3 Active Dexcom G7 System Admin Device Use to check blood sugar 1 [...] Suspension (Flonase)Indicati ons:ETD (Eustachian tube dysfunction), right SPRAY 2 SPRAYS INTO EACH NOSTRIL IN THE MORNING 48 mL 3 4 Active Fluticasone Propionate 50 MCG/ACT Nasal Suspension (Flonase)Indicati ons:ETD (Eustachian tube dysfunction), right Administer 2 Sprays into each nostril in the morning. 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 12/06/2023 HFrEF (heart failure with reduced ejection fract ion) 12/06/2023 COPD, group B, by GOLD 2017 classification 09/27 Overview: Per COPD GOLD Classification Chronic kidney disease, stage 3a 08/30/2023 Overview: Per CKD protocol Protein-calorie malnutrition 08/02/2023 ILD (interstitial lung disease) 06/14/2023 Chronic systolic (congestive) heart failure 05/2022 Coronary artery disease invo lving [place] coronary artery of [place] heart without angina pectoris 06/25/2022 Presence of [...] Gastroesophageal reflux disease without esophagi tis 03/15/2019 longterm (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 of insulin 11/25/2018 Paroxysmal atrial [...] update of inactive term lentigo maligna,rt caodaism 07/05/2002 05/26/2018 Rosacea 07/28/2001 05/26/2018 LOC PRIM [id number] 07/28/200106/2018 documented as of this encounter (statuses [...] encounter Miscellaneous Notes * [facility]06 PM EDTSigned Prescriptions: Disp Refills Fluticasone Propionate 50 MCG/ACT Nasal Jones*48 mL 3 Sig: SPRAY 2 SPRAYS INTO EACH NOSTRIL IN THE MORNINGAuthorizing Provider: YASSINE ALBERT User: PATRICK HANKS documented in this encounter Plan of Treatment Upcoming Encounters Date Type Department Care Team (Late st Contact Info) Description 02/23/2024 1:30 PM EDT Laboratory Laboratory [facility] [address] [facility] [place] [address] [place] [address] 02/23/2024 2:00 PM EDT Office Visit Hematology/Oncology [facility] [address] [facility] [place] [address] Chito Garcia MD [address] [facility] [place] [address] 02/23/2024 2:30 PM EDT Immunization/Injecti on Hematology/Oncology Treatment, [place] 200 [place] [address] Nurse, Med [address] [facility] [place] [address] 02/23/2024 6:15 PM EDT Scheduled Telephone Pharmacy Hematology Oncology [address] [address] [facility] Hem/Onc Tech [address] [place] [address] 03/01/2024 9:00 AM EDT Pharmacy Pharmacy Hematology Oncology [place] [address] [place] [address] [facility] Hem/Onc [facility] [place] [address] 04/17/2024 3:40 PM EDT Office Visit [facility] [address] [facility] [place] [address] Yassine Albert, DO [address] [place] [address] 05/09/2024 2:50 PM EDT Office Visit Pharmacy, [facility] [place] [address] [place] [address] Pharmacist1, [facility] [address] [place] [address] 05/09/2024 3:20 PM EDT Office Visit [facility] [address] [place] [address] Yassine Albert, DO [address] [place] [address] Health Maintenance Due Date Last Done Comments Alpha-1 Antitrypsin 1963 Hepatitis B (3 of 3 - 19+ 3-dose series) 04/17/1994 11/18/1993, 10/18/1993 Zoster Vaccines (2 of 2) 02/21/2013 12/27/2012, 12/16 Pneumococcal Vaccine: 65+ Years (3 of 3 - PPSV23 or PCV20) 04/26/2017 03/01/2017, 09/06/2007 Albumin/Creatinine Ratio 12/14/201912/14/2 019, 01/03/2018, 06/26/2016, Additional history exists Diabetic Foot Exam 09/16/2021 09/16/2020, 0 12/16/2015, 03/06/2015, Additional history exists Depression Screening 05/20/2023 05/20/2022 HbA1c 06/28/2024 12/27/2023, 12/0 02/2023, 06/14/2023, Additional history exists GFR 08/03/2024 02/02/2024, 04/0 10/2023, 12/30/2023, Additional history exists Diabetic Eye Exam 09/30/2024 09/30/2023, , 09/03/2021, Additional history exists CKD PHOS USE SMARTSET 58521 12/29/202412/16, 12/02/2023, 09/21/2023, Additional history exists B-12 01/16/2025 01/17/2024, 02/15, 04/21/2022, Additional history exists DIG LEVEL FOR MEDICATION MONITORING YEARLY 01/16/2025 01/17/2024, 01/04/2023, 10/08/2022, Additional history exists O2 ASSESSMENT COMPLETED IN PAST YEAR FOR COPD 01/23/2025 01/24/2024 CKD HGB USE SMARTSET 95259 02/01/202502/01, 02/02/2024, 01/24/2024, Additional history exists DTaP,Tdap,and [...] this encounter Medical Devices Implanted Type Area Executor Of Estate Device Identifier Shelf Expiration Date Model / Serial / Lot Lens Intraoc 24.0 - [id number] - [id number] Implanted:Qty: 1 on 08/16/2018 by Adan Colon MD at OR [facility] Right: Eye [employer]OM[employer] 11/17/2022 [id number] / [id number] / [id number] Lens Intraoc 24.0 - [id number] - [id number] Implanted:Qty: 1 on 08/23/2018 by Adan Colon MD at OR [facility] Left: Eye BAUSCH & LOMB 06/17/2023 [id number] / [id number] / [id number] Screw [employer] 3.8fgn62id - [id number] Implanted:Qty: 1 on 12/07/2019 by Amilcar Saavedra MD at [facility] Left: Foot EXACTECH 2755-1820 / / Screw [employer] 3.2aly93ki - [id number] Implanted:Qty: 1 on 12/07/2019 by Amilcar Saavedra MD at [facility] Left: Foot EXACTECH [id number] / / documented as of this encounter Visit Diagnoses Diagnosis ETD (Eustachian tube dysfunction), right documented in this encounter Advance Directives Latest [...] and were consensually agreed upon. Care Teams Family Intervention Specialist Relationship Specialty Start Date End Date Yassine Albert DO [address] [place] [address] PCP - General Family Medicine 02/09/22 documented as of this encounter
--- OUTSIDE RECORDS SUMMARY | 2024-02-14 22:47 | External Medical Summary | Summary of Care ---
Author Name Unknown Organization [facility] Address [address] [facility] [place] [address] Phone [phone] Care Team Providers Care Laborer Wrecking And Salvaging Name Role Phone AhsanLanden nava Primary Care Provider [phone] Encounter Details Date Type Department Care Team (Late st Contact Info) Description 02/07/2024 Result Scan Unspecified Department <No scans attached> Allergies Active Allergy Reactions Criticality Noted Date Comments Tizanidine 06/27/2021 documented as of this encounter (statuses as of 02/08/2024) Medications Medication Sig Dispensed Refills Start Date [...] or Wheezing. 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 12/06/2023 HFrEF (heart failure with reduced ejection fract ion) 12/06/2023 COPD, group B, by GOLD 2017 classification 09/27 Overview: Per COPD GOLD Classification Chronic kidney disease, stage 3a 08/30/2023 Overview: Per CKD protocol Protein-calorie malnutrition 08/02/2023 ILD (interstitial lung disease) 06/14/2023 Chronic systolic (congestive) heart failure 05/2022 Coronary artery disease invo lving [place] coronary artery of [place] heart without angina pectoris 06/25/2022 Presence of [...] as of this encounter (statuses as of 02/08/2024) Resolved Problems Problem Noted Date Diagnosed Date [...] 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,rt islam 07/05/2002 05/26/2018 Rosacea 07/28/2001 05/26/2018 LOC PRIM [id number] 07/28/200106/2018 documented as of this encounter (statuses as of 02/08/2024) Immunizations Name Administration Dates Next Due COVID-19 [...] Description 02/23/2024 1:30 PM EDT Laboratory Laboratory [facility] [place] [address] [place] [id number] [facility] [address] [place] [address] 02/23/2024 2:00 PM EDT Office Visit Hematology/Oncology [facility] [place] [address] [place] [phone] Chito Garcia MD [address] [place] [address] 02/23/2024 2:30 PM EDT Immunization/Injecti on Hematology/Oncology Treatment, [place] [address] [place] [phone] Nurse, Med [address] [place] [address] 02/23/2024 6:15 PM EDT Scheduled Telephone Pharmacy Hematology Oncology [facility] [place] [address] [facility] [place] [address] [facility] Hem/Onc Tech [address] [place] [address] 03/01/2024 9:00 AM EDT Pharmacy Pharmacy Hematology Oncology [facility], [place] [address] [place] [address] [facility] Hem/Onc [address] [place] [address] 04/17/2024 3:40 PM EDT Office Visit [facility] 200 [facility] [place] [address] Landen Macario, DO [address] [facility] [place] [address] 05/09/2024 2:50 PM EDT Office Visit Pharmacy, [facility] [address] [facility] [place] [address] Pharmacist1, [facility] Sp [address] [place] [address] 05/09/2024 3:20 PM EDT Office Visit [facility] [address] [place] [address] Landen Macario, DO [address] [place] [address] Health Maintenance Due Date Last Done Comments [...] Additional history exists CKD PHOS USE SMARTSET 98747 12/29/202412/16, 12/02/2023, 09/21/2023, Additional history exists B-12 01/16/2025 01/17/2024, 02/15, 04/21/2022, Additional history exists DIG LEVEL FOR MEDICATION MONITORING YEARLY 01/16/2025 01/17/2024, 01/04/2023, 10/08/2022, Additional history exists O2 ASSESSMENT COMPLETED IN PAST YEAR FOR COPD 01/23/2025 01/24/2024 CKD HGB USE SMARTSET 18610 02/01/202502/01, 02/02/2024, 01/24/2024, Additional history exists DTaP,Tdap,and [...] this encounter Medical Devices Implanted Type Area Field Support Specialist Device Identifier Shelf Expiration Date Model / Serial / Lot Lens Intraoc 24.0 - [id number] - [id number] Implanted:Qty: 1 on 08/16/2018 by Adan Colon MD at OR [facility] Right: Eye BAUSCH [employer] LOMB 11/17/2022 [id number] / [id number] / [id number] Lens Intraoc 24.0 - [id number] - [id number] Implanted:Qty: 1 on 08/23/2018 by Adan Colon MD at OR [facility] Left: Eye BAUSCH & LOMB 06/17/2023 [id number] / [id number] / [id number] Screw [employer] 3.4mrd33uz - [id number] Implanted:Qty: 1 on 12/07/2019 by Amilcar Saavedra MD at OR [facility] Left: Foot EXACTECH 6067-2907 / / Screw [employer] 3.8vvq58px - [id number] Implanted:Qty: 1 on 12/07/2019 by Amilcar Saavedra MD at [facility] Left: Foot EXACTECH 6847-7412 / / documented as of this encounter Procedures Procedure Name Priority Date/Time Associated Diagnosis Comments CARDIAC CATH SCANNED RESULT 02/07/2024 documented in this encounter Results * CARDIAC CATH SCANNED RESULT (02/07/2024) 02/07/2024 No Physician Data Unknown CARD CATH documented in this encounter Advance Directives Latest [...] and were consensually agreed upon. Care Teams Laborer Wrecking And Salvaging Relationship Specialty Start Date End Date Landen Macario DO [address] [place] [address] PCP - General Family Medicine 02/09/22 documented as of this encounter
--- OUTSIDE RECORDS SUMMARY | 2024-02-14 22:47 | External Medical Summary ---
Author Name Unknown Address Unknown Organization [facility] [place] [address] Laboratory Report Ordering Provider Test Date Status ANIBAL FIERRO 02/11/2024 14:12:48 Final Observation Date Value Abnormality Reference (Units ) Status WBC, Total 02/11/2024 14:12:48 3.48 Below low normal 4. 00-10.80 (K/uL) Final RBC 02/11/2024 14:12:48 2.34 4.50-5.25 (M/uL) Final Hemoglobin 02/11/2024 14:12:48 7.5 Below low normal 14 .0-16.8 (g/dL) Final HCT 02/11/2024 14:12:48 24.1 Below low normal 40. 0-48.4 (%) Final MCV 02/11/2024 14:12:48 103.0 82.0-99.5 (fL) Final MCH 02/11/2024 14:12:48 32.1 27.0-34.0 (pg) Final MCHC 02/11/2024 14:12:48 31.1 32.0-36.0 (g/dL) Final RDW 02/11/2024 14:12:48 17.2 11.5-15.5 (%) Final Platelets 02/11/2024 14:12:48 45 Below low normal 140 -400 (K/uL) Final Consistent with previous res ults.
null MPV 02/11/2024 14:12:48 11.0 6.6-11.1 ( fL) Final Performing Location [facility] [place] [address]
--- OUTSIDE RECORDS SUMMARY | 2024-02-15 06:11 | External Medical Summary | Summary of Care ---
Author Name Unknown Organization [facility] Address [address] [place] [address] Phone [phone] Care Team Providers Care Business System Consultant Name Role Phone AhsanLanden nava Primary Care Provider [phone] Reason for Visit * Reason Onset Date Comments Test Results 02/11/2024 Radha Encounter Details Date Type Department Care Team (Late st Contact Info) Description 02/11/2024 Telephone Hematology/Oncology [facility] [place] [address] [place] [address] Services, Scheduling [address] [place] [address] Test Results (Radha) Allergies Active Allergy Reactions [...] or Wheezing. 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 12/06/2023 HFrEF (heart failure with reduced ejection fract ion) 12/06/2023 COPD, group B, by GOLD 2017 classification 09/27 Overview: Per COPD GOLD Classification Chronic kidney disease, stage 3a 08/30/2023 Overview: Per CKD protocol Protein-calorie malnutrition 08/02/2023 ILD (interstitial lung disease) 06/14/2023 Chronic systolic (congestive) heart failure 09/0 05/2022 Coronary artery disease invo lving [place] coronary artery of [place] heart without angina pectoris 06/25/2022 Presence [...] Gastroesophageal reflux disease without esophagi tis 03/15/2019 shelter (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 of insulin 11/25/2018 Paroxysmal atrial [...] of inactive term lentigo maligna,rt adventism 07/05/2002 05/26/2018 Rosacea 07/28/2001 05/26/2018 LOC PRIM [id number] 07/28/200106/2018 documented as of this encounter (statuses [...] Miscellaneous Notes * Telephone Encounter - Nova Santiago [facility] - 02/14/2024 10:34 AM EDT Patient's is returning a call to Sloan to go over test results. [phone]. Thank you * Telephone Encounter - Sloan Torres, NATALIE - 02/14/2024 8:13 AM EDT Called patient, [...] call back. Please call pt back at [phone] Thank you! documented in this encounter Plan of Treatment Upcoming Encounters Date Type Department Care Team (Late st Contact Info) Description 02/23/2024 1:30 PM EDT Laboratory Laboratory [address] [place] [phone] [facility] [address] [place] [address] 02/23/2024 2:00 PM EDT Office Visit Hematology/Oncology [facility] [address] [place] [address] Chito Garcia MD 200 [facility] [place] [address] 02/23/2024 2:30 PM EDT Immunization/Injecti on Hematology/Oncology Treatment, [place] [facility] [phone] Ashley, Chair [address] [place] [address] 02/23/2024 6:15 PM EDT Scheduled Telephone Pharmacy Hematology Oncology [address] [facility] [place] [address] [place] [address] 03/01/2024 9:00 AM EDT Pharmacy Pharmacy Hematology Oncology [place] [address] [place] [address] [address], [facility] Hem/Onc [address] [place] [address] 04/17/2024 3:40 PM EDT Office Visit [facility] 200 [facility] [place] [address] Landen Macario, DO 200 [facility] [place] [address] 05/09/2024 2:50 PM EDT Office Visit Pharmacy, [facility] 200 [facility] [place] [address] [address] [facility] 200 [place] [address] 05/09/2024 3:20 PM EDT Office Visit [facility] 200 [facility] [place] [address] Landen Macario, DO 200 [facility] [place] [address] Health Maintenance Due Date Last Done Comments [...] Additional history exists CKD PHOS USE SMARTSET 05151 12/29/202412/16, 12/02/2023, 09/21/2023, Additional history exists B-12 01/16/2025 01/17/2024, 02/15, 04/21/2022, Additional history exists DIG LEVEL FOR MEDICATION MONITORING YEARLY 01/16/2025 01/17/2024, 01/04/2023, 10/08/2022, Additional history exists O2 ASSESSMENT COMPLETED IN PAST YEAR FOR COPD 01/23/2025 01/24/2024 CKD HGB USE SMARTSET 40345 02/10/202502/10, 02/11/2024, 02/02/2024, Additional history exists DTaP,Tdap,and [...] this encounter Medical Devices Implanted Type Area Construction Foreman Device Identifier Shelf Expiration Date Model / Serial / Lot Lens Intraoc 24.0 - [id number] - [id number] Implanted:Qty: 1 on 08/16/2018 by Adan Colon MD at [facility] Right: Eye [employer]OM[employer] 11/17/2022 [id number] / [id number] / [id number] Lens Intraoc 24.0 - [id number] - [id number] Implanted:Qty: 1 on 08/23/2018 by Adan Colon MD at OR [facility] Left: Eye BAUSCH & LOMB 06/17/2023 [id number] / [id number] / [id number] Screw [employer] 3.2vdv55ez - [id number] Implanted:Qty: 1 on 12/07/2019 by Amilcar Saavedra MD at OR [facility] Left: Foot EXACTECH 8279-3979 / / Screw [employer] 3.5nft44bx - [id number] Implanted:Qty: 1 on 12/07/2019 by Amilcar Saavedra MD at [facility] Left: Foot EXACTECH 3795-9306 / / documented as of this encounter [...] were consensually agreed upon. Care Teams Business System Consultant Relationship Specialty Start Date End Date Landen Macario DO [address] [place] [address] PCP - General Family Medicine 02/09/22 documented as of this encounter
--- OUTSIDE RECORDS SUMMARY | 2024-02-15 06:11 | External Medical Summary | Summary of Care ---
Author Name Unknown Organization [facility] Address [address] [place] [address] Phone [phone] Care Team Providers Care Air Twist Operator Name Role Phone AhsanLanden nava Primary Care Provider [phone] Reason for Visit * Reason Onset Date Comments Test Results 02/11/2024 Radha Encounter Details Date Type Department Care Team (Late st Contact Info) Description 02/11/2024 Telephone Hematology/Oncology [facility] [place] [address] [place] [address] Services, Scheduling [address] [place] [address] Test Results (Radha) Allergies Active Allergy Reactions [...] or Wheezing. 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 12/06/2023 HFrEF (heart failure with reduced ejection fract ion) 12/06/2023 COPD, group B, by GOLD 2017 classification 09/27 Overview: Per COPD GOLD Classification Chronic kidney disease, stage 3a 08/30/2023 Overview: Per CKD protocol Protein-calorie malnutrition 08/02/2023 ILD (interstitial lung disease) 06/14/2023 Chronic systolic (congestive) heart failure 09/0 05/2022 Coronary artery disease invo lving [place] coronary artery of [place] heart without angina pectoris 06/25/2022 Presence of [...] update of inactive term lentigo maligna,rt church 07/05/2002 05/26/2018 Rosacea 07/28/2001 05/26/2018 LOC PRIM [id number] 07/28/200106/2018 documented as of this encounter (statuses [...] to Sloan to go over test results. [phone]. Thank you * Telephone Encounter - Sloan [...] call back. Please call pt back at [phone] Thank you! documented in this encounter Plan of Treatment Upcoming Encounters Date Type Department Care Team (Late st Contact Info) Description 02/23/2024 1:30 PM EDT Laboratory Laboratory [address] [place] [phone] [facility] [address] [place] [address] 02/23/2024 2:00 PM EDT Office Visit Hematology/Oncology [facility] [address] [place] [address] Chito Garcia MD 200 [facility] [place] [address] 02/23/2024 2:30 PM EDT Immunization/Injecti on Hematology/Oncology Treatment, [place] [facility] [phone] Ashley, Chair 5 Hem Onc [address] [place] [address] 02/23/2024 6:15 PM EDT Scheduled Telephone Pharmacy Hematology Oncology [address] [address] [facility] [place] [address] [place] [address] 03/01/2024 9:00 AM EDT Pharmacy Pharmacy Hematology Oncology [place] [address] [place] [address] Gm, [facility] Hem/Onc [address] [place] [address] 04/17/2024 3:40 PM EDT Office Visit [facility] 200 [facility] [place] [address] Landen Macario, DO [address] [place] [address] 05/09/2024 2:50 PM EDT Office Visit Pharmacy, [facility] 200 [facility] [place] [address] Pharmacist1, [facility] Sp 200 [facility] [place] [address] 05/09/2024 3:20 PM EDT Office Visit [facility] 200 [facility] [place] [address] Landen Macario, DO [address] [place] [address] Health Maintenance Due Date Last Done Comments [...] Additional history exists CKD PHOS USE SMARTSET 19312 12/29/202412/16, 12/02/2023, 09/21/2023, Additional history exists B-12 01/16/2025 01/17/2024, 02/15, 04/21/2022, Additional history exists DIG LEVEL FOR MEDICATION MONITORING YEARLY 01/16/2025 01/17/2024, 01/04/2023, 10/08/2022, Additional history exists O2 ASSESSMENT COMPLETED IN PAST YEAR FOR COPD 01/23/2025 01/24/2024 CKD HGB USE SMARTSET 49442 02/10/202502/10, 02/11/2024, 02/02/2024, Additional history exists DTaP,Tdap,and [...] encounter Medical Devices Implanted Type Area Chief Hospital Administrator Device Identifier Shelf Expiration Date Model / Serial / Lot Lens Intraoc 24.0 - [id number] - [id number] Implanted:Qty: 1 on 08/16/2018 by Adan Colon MD at [facility] Right: Eye [employer]CH [employer]OMB 11/17/2022 [id number] / [id number] / [id number] Lens Intraoc 24.0 - [id number] - [id number] Implanted:Qty: 1 on 08/23/2018 by Adan Colon MD at OR [facility] Left: Eye BAUSCH & LOMB 06/17/2023 [id number] / [id number] / [id number] Screw [employer] 3.5rvb64ns - [id number] Implanted:Qty: 1 on 12/07/2019 by Amilcar Saavedra MD at OR [facility] Left: Foot EXACTECH 2223-3300 / / Screw [employer] 3.4xxt36uc - [id number] Implanted:Qty: 1 on 12/07/2019 by Amilcar Saavedra MD at OR [facility] Left: Foot EXACTECH 6930-8786 / / documented as of this encounter [...] and were consensually agreed upon. Care Teams Air Twist Operator Relationship Specialty Start Date End Date Landen Macario DO [address] [place] [address] PCP - General Family Medicine 02/09/22 documented as of this encounter
--- OUTSIDE RECORDS SUMMARY | 2024-02-15 06:11 | External Medical Summary | Summary of Care ---
Author Name Unknown Organization [facility] Address [address] [place] [address] Phone [phone] Care Team Providers Care Ordnance Artificer Name Role Phone AhsanLanden nava Primary Care Provider [phone] Reason for Visit * Reason Onset Date Comments Test Results 02/11/2024 Radha Encounter Details Date Type Department Care Team (Late st Contact Info) Description 02/11/2024 Telephone Hematology/Oncology [facility] [place] [address] [place] [address] Services, Scheduling [address] [place] [address] Test Results (Radha) Allergies Active Allergy Reactions [...] or Wheezing. 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 12/06/2023 HFrEF (heart failure with reduced ejection fract ion) 12/06/2023 COPD, group B, by GOLD 2017 classification 09/27 Overview: Per COPD GOLD Classification Chronic kidney disease, stage 3a 08/30/2023 Overview: Per CKD protocol Protein-calorie malnutrition 08/02/2023 ILD (interstitial lung disease) 06/14/2023 Chronic systolic (congestive) heart failure 09/0 05/2022 Coronary artery disease invo lving [place] [...] 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,rt mu-ism 07/05/2002 05/26/2018 Rosacea 07/28/2001 05/26/2018 LOC PRIM [id number] 07/28/200106/2018 documented as of this encounter (statuses [...] Telephone Encounter - Glo Murillo RN - 02/14/2024 1:42 PM EDT Patient currently in ER. * Telephone Encounter - Glo Murillo RN - 02/14/2024 10:51 AM EDT Called patients . She states that patient probably did not tell us that he has been coughing upblood. No clots, but she has noted streaks of dark blood in mucous that he coughs. Advised her thathe did not, advised that patient should go to ER. She states that patient declined her calling EMS,but that she will get him to the ER as soon as she is able to. * Telephone Encounter - Nova Santiago OSA - 02/14/2024 10:34 AM EDT Patient's is returning a call to Sloan to go over test results. [phone]. Thank you * Telephone Encounter - Glo Murillo RN - 02/14/2024 10:32 AM EDT Called and spoke to patient. He states that he still "cannot breathe". Has been monitoring pulse ox, has consistently been in high 90's%. No appetite. Denies fever/ cough. Patient states that he feels like this is related to his heart catheterization that he had last Wednesday. He did feel slightly better after his transfusion last week, but not much. Offered to schedule additional unit of blood- patient declined, states that he plans to go to the ER. Asked when he plans to go- he states that he has not eaten breakfast yet so is not sure when he will go, but it will be at some point today. Encouraged patient that if he is stable and does not feel he urgently needs to go to ER, we can discuss symptoms with Dr Garcia and/ or he could call his granite installer for assessment to avoid ER visit. Patient declined, states that he has already decided to go to ER. Will go to [facility]. Called [facility] ER and spoke to Adriana to make aware patient will be going to ER at some point. Dr Garcia: NESHA * Telephone Encounter - Sloan Torres RN [...] call back. Please call pt back at [phone] Thank you! documented in this encounter Plan of Treatment Upcoming Encounters Date Type Department Care Team (Late st Contact Info) Description 02/23/2024 1:30 PM EDT Laboratory Laboratory [facility] [address] [place] [phone] [facility] [address] [place] [address] 02/23/2024 2:00 PM EDT Office Visit Hematology/Oncology [facility] [place] [address] [facility] [place] [phone] Chito Garcia MD [address] [facility] [place] [address] 02/23/2024 2:30 PM EDT Immunization/Injecti on Hematology/Oncology Treatment, [place] [address] [place] [phone] Ashley, Chair 5 Hem Onc [address] [place] [address] 02/23/2024 6:15 PM EDT Scheduled Telephone Pharmacy Hematology Oncology [facility] [address] [place] [address] [facility] [address] [place] [address] 03/01/2024 9:00 AM EDT Pharmacy Pharmacy Hematology Oncology [facility] [address] [place] [address] [facility] Hem/Onc [address] [place] [facility] [place] [address] 04/17/2024 3:40 PM EDT Office Visit [facility] [address] [facility] [place] [address] Landen Macario, DO [address] [facility] [place] [address] 05/09/2024 2:50 PM EDT Office Visit Pharmacy, [facility] [place] [address] [facility] [place] [address] Pharmacist1, [facility] [address] [facility] [place] [address] 05/09/2024 3:20 PM EDT Office Visit [facility] [place] [address] [facility] [place] [address] Landen Macario, DO [address] [facility] [place] [address] Health Maintenance Due Date Last Done Comments [...] Additional history exists CKD PHOS USE SMARTSET 42204 12/29/202412/16, 12/02/2023, 09/21/2023, Additional history exists B-12 01/16/2025 01/17/2024, 02/15, 04/21/2022, Additional history exists DIG LEVEL FOR MEDICATION MONITORING YEARLY 01/16/2025 01/17/2024, 01/04/2023, 10/08/2022, Additional history exists O2 ASSESSMENT COMPLETED IN PAST YEAR FOR COPD 01/23/2025 01/24/2024 CKD HGB USE SMARTSET 89026 02/10/202502/10, 02/11/2024, 02/02/2024, Additional history exists DTaP,Tdap,and [...] this encounter Medical Devices Implanted Type Area Comb Fixer Device Identifier Shelf Expiration Date Model / Serial / Lot Lens Intraoc 24.0 - [id number] - [id number] Implanted:Qty: 1 on 08/16/2018 by Adan Colon MD at [facility] Right: Eye [employer] 11/17/2022 [id number] / [id number] / [id number] Lens Intraoc 24.0 - [id number] - [id number] Implanted:Qty: 1 on 08/23/2018 by Adan Colon MD at OR [facility] Left: Eye [employer]CH [employer] LOMB 06/17/2023 [id number] / [id number] / [id number] Screw [employer] 3.1aay76mu - [id number] Implanted:Qty: 1 on 12/07/2019 by Amilcar Saavedra MD at [facility] Left: Foot EXACTECH [id number] / / Screw [employer] 3.6xud46zw - [id number] Implanted:Qty: 1 on 12/07/2019 by Amilcar Saavedra MD at [facility] Left: Foot EXACTECH [id number] / / documented as of this encounter [...] and were consensually agreed upon. Care Teams Ordnance Artificer Relationship Specialty Start Date End Date Landen Macario DO [address] [place] [address] PCP - General Family Medicine 02/09/22 documented as of this encounter
--- OUTSIDE RECORDS SUMMARY | 2024-02-15 06:11 | External Medical Summary | Summary of Care ---
Author Name Unknown Organization [facility] Address [address] [place] [address] Phone [phone] Care Team Providers Care Tap Dancer Name Role Phone AhsanLanden nava Primary Care Provider [phone] Reason for Visit * Reason Onset Date Comments Test Results 02/11/2024 Radha Encounter Details Date Type Department Care Team (Late st Contact Info) Description 02/11/2024 Telephone Hematology/Oncology [facility] [place] [address] [place] [address] Services, Scheduling [address] [place] [address] Test Results (Radha) Allergies Active Allergy Reactions [...] or Wheezing. 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 12/06/2023 HFrEF (heart failure with reduced ejection fract ion) 12/06/2023 COPD, group B, by GOLD 2017 classification 09/27 Overview: Per COPD GOLD Classification Chronic kidney disease, stage 3a 08/30/2023 Overview: Per CKD protocol Protein-calorie malnutrition 08/02/2023 ILD (interstitial lung disease) 06/14/2023 Chronic systolic (congestive) heart failure 09/0 05/2022 Coronary artery disease invo lving [place] coronary artery of [place] heart without angina pectoris 06/25/2022 Presence of [...] Gastroesophageal reflux disease without esophagi tis 03/15/2019 half-way (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 of insulin 11/25/2018 Paroxysmal atrial [...] 07/05/2002 05/26/2018 Rosacea 07/28/2001 05/26/2018 LOC PRIM [id number] 07/28/200106/2018 documented as of this encounter (statuses [...] to Sloan to go over test results. [phone]. Thank you * Telephone Encounter - Glo [...] Garcia and/ or he could call his mold making plastics sheets supervisor for assessment to avoid ER visit. Patient declined, states that he has already decided to go to ER. Will go to [facility]. Called [facility] ER and spoke to Adriana to make [...] call back. Please call pt back at [phone] Thank you! documented in this encounter Plan of Treatment Upcoming Encounters Date Type Department Care Team (Late st Contact Info) Description 02/23/2024 1:30 PM EDT Laboratory Laboratory [facility] Charleen Ramirez [address] [place] [phone] Allen Ramirez Scene [address] [place] [address] 02/23/2024 2:00 PM EDT Office Visit Hematology/Oncology [facility] [place] [address] [place] [phone] Chito Garcia MD [address] [place] [address] 02/23/2024 2:30 PM EDT Immunization/Injecti on Hematology/Oncology Treatment, [place] [address] [place] [phone] Ashley, Chair [address] [facility] [address] [place] [address] 02/23/2024 6:15 PM EDT Scheduled Telephone Pharmacy Hematology Oncology [facility] [place] [address] [place] [address] [facility] Hem/Onc [facility] [address] [place] [address] 03/01/2024 9:00 AM EDT Pharmacy Pharmacy Hematology Oncology [facility] [place] [address] [place] [address] [facility] Hem/Onc [address] [place] [address] 04/17/2024 3:40 PM EDT [facility] [place] [address] [place] [address] Landen Macario, DO [address] [place] [address] 05/09/2024 2:50 PM EDT Office Visit Pharmacy, [facility] [place] [address] [place] [address] Pharmacist1, [facility] [address] [place] [address] 05/09/2024 3:20 PM EDT Office Visit Family Practice [facility] [place] [address] [place] [address] Landen Macario DO [address] [place] [address] Health Maintenance Due Date Last Done Comments [...] Additional history exists CKD PHOS USE SMARTSET 09763 12/29/202412/16, 12/02/2023, 09/21/2023, Additional history exists B-12 01/16/2025 01/17/2024, 02/15, 04/21/2022, Additional history exists DIG LEVEL FOR MEDICATION MONITORING YEARLY 01/16/2025 01/17/2024, 01/04/2023, 10/08/2022, Additional history exists O2 ASSESSMENT COMPLETED IN PAST YEAR FOR COPD 01/23/2025 01/24/2024 CKD HGB USE SMARTSET 65627 02/10/202502/10, 02/11/2024, 02/02/2024, Additional history exists DTaP,Tdap,and [...] this encounter Medical Devices Implanted Type Area Lead Data Entry Operator Device Identifier Shelf Expiration Date Model / Serial / Lot Lens Intraoc 24.0 - [id number] - [id number] Implanted:Qty: 1 on 08/16/2018 by Adan Colon MD at OR [facility] Right: Eye [employer]OM[employer] 11/17/2022 [id number] / [id number] / [id number] Lens Intraoc 24.0 - [id number] - [id number] Implanted:Qty: 1 on 08/23/2018 by Adan Colon MD at OR [facility] Left: Eye BAUSCH [employer] LOMB 06/17/2023 [id number] / [id number] / [id number] Screw [employer] 3.5kcu76ru - [id number] Implanted:Qty: 1 on 12/07/2019 by Amilcar Saavedra MD at OR [facility] Left: Foot EXACTECH 2131-1508 / / Screw [employer] 3.7jxl04wj - [id number] Implanted:Qty: 1 on 12/07/2019 by Amilcar Saavedra MD at [facility] Left: Foot EXACTECH 8644-8523 / / documented as of this encounter [...] and were consensually agreed upon. Care Teams Tap Dancer Relationship Specialty Start Date End Date Landen Macario DO [address] [place] [address] PCP - General Family Medicine 02/09/22 documented as of this encounter
--- OUTSIDE RECORDS SUMMARY | 2024-02-15 06:11 | External Medical Summary | Summary of Care ---
Author Name Unknown Organization [facility] Address [address] [place] [address] Phone [phone] Care Team Providers Care Personnel Assistant Name Role Phone AhsanLanden nava Primary Care Provider [phone] Reason for Visit * Reason Onset Date Comments Test Results 02/11/2024 Radha Encounter Details Date Type Department Care Team (Late st Contact Info) Description 02/11/2024 Telephone Hematology/Oncology [facility] [place] [address] [place] [address] Services, Scheduling [address] [place] [address] Test Results (Radha) Allergies Active Allergy Reactions [...] or Wheezing. 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 12/06/2023 HFrEF (heart failure with reduced ejection fract ion) 12/06/2023 COPD, group B, by GOLD 2017 classification 09/27 Overview: Per COPD GOLD Classification Chronic kidney disease, stage 3a 08/30/2023 Overview: Per CKD protocol Protein-calorie malnutrition 08/02/2023 ILD (interstitial lung disease) 06/14/2023 Chronic systolic (congestive) heart failure 09/0 05/2022 Coronary artery disease invo lving [place] coronary artery of [place] heart without angina pectoris 06/25/2022 Presence of [...] of inactive term lentigo maligna,rt religion 07/05/2002 05/26/2018 Rosacea 07/28/2001 05/26/2018 LOC PRIM [id number] 07/28/200106/2018 documented as of this encounter (statuses [...] to Sloan to go over test results. [phone]. Thank you * Telephone Encounter - Glo [...] Garcia and/ or he could call his openstack developer for assessment to avoid ER visit. Patient declined, states that he has already decided to go to ER. Will go to [facility]. Called [facility] ER and spoke to Adriana to make aware patient will be going to ER at some point. Dr Garcia: NESHA * Telephone Encounter - Sloan Torres, NATALIE [...] call back. Please call pt back at [phone] Thank you! documented in this encounter Plan of Treatment Upcoming Encounters Date Type Department Care Team (Late st Contact Info) Description 02/23/2024 1:30 PM EDT Laboratory Laboratory [facility] 200 [facility] [place] [address] Ashley Lab [facility] [address] [facility] [place] [address] 02/23/2024 2:00 PM EDT Office Visit Hematology/Oncology [facility] [address] [place] [address] Chito Garcia MD 200 [facility] [place] [address] 02/23/2024 2:30 PM EDT Immunization/Injecti on Hematology/Oncology Treatment, [place] [address] [facility] [place] [phone] Ashley, Chair 5 Hem Onc [address] [place] [address] 02/23/2024 6:15 PM EDT Scheduled Telephone Pharmacy Hematology Oncology [address] [address] [facility] Hem/Onc Tech [facility] [place] [address] 03/01/2024 9:00 AM EDT Pharmacy Pharmacy Hematology Oncology [place] [address] [place] [address] [facility] Hem/Onc [address] [place] [address] 04/17/2024 3:40 PM EDT Office Visit [facility] [address] [facility] [place] [address] Landen Macario, DO [address] [place] [address] 05/09/2024 2:50 PM EDT Office Visit Pharmacy, [facility] Ashley [place] [address] [place] [address] Pharmacist1, [facility] [address] [facility] [place] [address] 05/09/2024 3:20 PM EDT Office Visit [facility] [place] [address] [place] [address] Landen Macario, DO [address] [place] [address] Health Maintenance Due Date Last Done Comments Alpha-1 Antitrypsin 1963 Hepatitis B (3 of 3 - 19+ 3-dose series) 04/17/1994 11/18/1993, 10/18/1993 Zoster Vaccines (2 of 2) 02/21/2013 12/27/2012, 12/16 Pneumococcal Vaccine: 65+ Years (3 of 3 - PPSV23 or PCV20) 04/26/2017 03/01/2017, 09/06/2007 Albumin/Creatinine Ratio 12/14/201912/14/ 019, 01/03/2018, 06/26/2016, Additional history exists Diabetic Foot Exam 09/16/2021 09/16/2020, 0 12/16/2015, 03/06/2015, Additional history exists Depression Screening 05/20/2023 05/20/2022 HbA1c 06/28/2024 12/27/2023, 12/02/2023, 06/14/2023, Additional history exists GFR 08/03/2024 02/02/2024, 04/0 10/2023, 12/30/2023, Additional history exists Diabetic Eye Exam 09/30/2024 09/30/2023, , 09/03/2021, Additional history exists CKD PHOS USE SMARTSET 10679 12/29/202412/16, 12/02/2023, 09/21/2023, Additional history exists B-12 01/16/2025 01/17/2024, 02/15, 04/21/2022, Additional history exists DIG LEVEL FOR MEDICATION MONITORING YEARLY 01/16/2025 01/17/2024, 01/04/2023, 10/08/2022, Additional history exists O2 ASSESSMENT COMPLETED IN PAST YEAR FOR COPD 01/23/2025 01/24/2024 CKD HGB USE SMARTSET 54830 02/10/202502/10, 02/11/2024, 02/02/2024, Additional history exists DTaP,Tdap,and [...] this encounter Medical Devices Implanted Type Area Bobbin Trucker Device Identifier Shelf Expiration Date Model / Serial / Lot Lens Intraoc 24.0 - [id number] - [id number] Implanted:Qty: 1 on 08/16/2018 by Adan Colon MD at OR [facility] Right: Eye [employer] 11/17/2022 [id number] / [id number] / [id number] Lens Intraoc 24.0 - [id number] - [id number] Implanted:Qty: 1 on 08/23/2018 by Adan Colon MD at OR [facility] Left: Eye BA[employer]CH [employer] LOMB 06/17/2023 [id number] / [id number] / [id number] Screw [employer] 3.7bvs50vl - [id number] Implanted:Qty: 1 on 12/07/2019 by Amilcar Saavedra MD at OR [facility] Left: Foot EXACTECH 0980-9315 / / Screw [employer] 3.6gkq89qp - [id number] Implanted:Qty: 1 on 12/07/2019 by Amilcar Saavedra MD at OR [facility] Left: Foot EXACTECH [id number] / / documented as of this encounter [...] and were consensually agreed upon. Care Teams Personnel Assistant Relationship Specialty Start Date End Date Landen Macario DO [address] [place] [address] PCP - General Family Medicine 02/09/22 documented as of this encounter
[2024-02-15 07:19] LABS: Hematocrit (blood only) 21.6 % (42.0-52.0); Hemoglobin 6.9 g/dl (14.0-18.0); Mean Corpuscular Hemoglobin 30.5 pg (25.0-34.0); Mean Corpuscular Hgb Conc 31.9 g/dL (32.0-36.0); Mean Corpuscular Volume 95.6 fL (80.0-100.0); Mean Platelet Volume 10.9 fL (9.4-12.4); Platelet Count 27 K/uL (130-400); RDW Coefficient of Variation 18.4 % (11.5-14.5); RDW Standard Deviation 62.6 fL (36.4-46.3); Red Blood Count 2.26 M/uL (4.70-6.10); White Blood Count 2.38 K/ul (4.8-10.8)
[2024-02-15 07:38] LABS: BUN Creatinine Ratio 26.7 (10-20); Calcium 8.2 mg/dl (8.6-10.3); Creatinine Clr Calc Pharmacy 66.5 ml/min; Est GFR (African American) 95.1 ml/min; Est GFR (Non-African American) 82.1 ml/min; Magnesium 1.8 mg/dl (1.7-2.4); Phosphorus 3.3 mg/dl (2.5-4.9); Potassium 4.1 mmol/L (3.5-5.1)
[2024-02-15 08:19] LABS: Hematocrit (blood only) 21.8 % (42.0-52.0); Mean Corpuscular Hemoglobin 30.7 pg (25.0-34.0); Mean Corpuscular Hgb Conc 32.1 g/dL (32.0-36.0); Mean Corpuscular Volume 95.6 fL (80.0-100.0); Mean Platelet Volume 10.9 fL (9.4-12.4); Platelet Count 27 K/uL (130-400); RDW Coefficient of Variation 18.6 % (11.5-14.5); Red Blood Count 2.28 M/uL (4.70-6.10); White Blood Count 2.38 K/ul (4.8-10.8)
[2024-02-15 08:39] LABS: Basophils # (auto) 0.01 K/uL (0.00-0.20); Basophils % (auto) 0.4 %; Eosinophils # (auto) 0.07 K/uL (0.00-0.50); Eosinophils % (auto) 2.9 %; Immature Granulocytes # (auto) 0.01 K/uL (0.01-0.20); Immature Granulocytes % (auto) 0.4 %; Lymphocytes # (auto) 0.78 K/uL (1.20-3.40); Lymphocytes % (auto) 32.8 %; Monocytes # (auto) 0.34 K/uL (0.11-0.59); Monocytes % (auto) 14.3 %; Neutrophils # (auto) 1.17 K/uL (1.40-6.50); Neutrophils % (auto) 49.2 %; Ovalocytes 1+; Tear Drop Cells 1+
--- NOTE | 2024-02-15 08:54 | Pulmonary Consultation ---
Date of Consultation February 15, 2024 Assessment & Plan (1) Ischemic cardiomyopathy: (2) Multiple myeloma: Multiple myeloma remission status: not in remission Qualified Code(s): C90.00 - Multiple myeloma not having achieved remission (3) Pancytopenia: (4) Multifocal pneumonia: (5) Idiopathic interstitial pneumonia: (6) Dyspnea on exertion: Plan 78-year-old male with a longstanding history of multiple myeloma actively on therapy who is presenting to the hospital with increasing shortness of breath. He also has a longstanding history of severe ischemic cardiomyopathy. Patient reports episodic epistaxis likely related to his thrombocytopenia. No overt hemoptysis has been identified or observed. Certainly he is at risk for hemoptysis given his pneumonia, ischemic cardiomyopathy and low platelet count. Unclear role for diagnostic bronchoscopy at this time. Agree with empiric treatment with antibiotics. MRSA screen was negative and thus will discontinue vancomycin. Continue empiric meropenem or consider even de-escalating to Unasyn as he does not have a history of pseudomonal pulmonary infection in our chart. 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 Recommend speech therapy consultation (ordered) to evaluate for chronic aspiration as the infiltrates on CT chest suggests possible chronic aspiration. Dyspnea is also multifactorial related to the deviously noted pancytopenia, severe deconditioning, ischemic cardiomyopathy and multifocal pneumonia. Will repeat echocardiogram to evaluate EF and RV function. He also has a history of aortic valve sclerosis. Will evaluate the patency of this valve with follow-up echo. Pulmonary to continue to follow along with you. Thank you for the consult. History of Present Illness Reason for Consultation: Hemoptysis Attending Physician: Juan Brooks MD History of Present Illness 78-year-old male with a past medical history of multiple myeloma treated by Dr. Garcia at [facility] oncology who presented yesterday to the ER due to ongoing dyspnea with exertion. He also noted episodic epistaxis when blowing his nose or sneezing. He had a CT of his chest yesterday which revealed groundglass opacities in the lower lobes bilaterally which are actually improved compared to his prior CT 08/23/2023. He also has severe emphysematous changes and fibrosis noted on his CT chest. I did see the patient during his last hospitalization last winter. His infectious workup was largely negative. I recommended that the patient follow-up with the ILD clinic at [facility] and unclear whether that occurred. Notably, the patient did have a cardiac cath 02/07/2024 which revealed severe hopi multivessel coronary artery disease and medical management was recommended. Patient notes that since his cardiac catheterization he has had significant dyspnea. Received 1 unit of packed RBCs today due to a low hemoglobin of 6.9. His last echo in our system indicated an EF of 35 to 40% with moderate aortic valve sclerosis and pulmonary arterial systolic pressures of 37 mmHg. BNP this admission is elevated to 348 which is close to his baseline. Patient is currently on meropenem and vancomycin. Allergies Allergy/AdvReac Type Severity Reaction Status Date / Time tizanidine AdvReac Intermediate "Woozy" Verified 02/14/24 15:54 feeling Home Medications Medication Instructions Recorded Confirmed Type apixaban 5 mg tablet (Eliquis) 5 mg PO BID 06/25/20 02/14/24 History atorvastatin 40 mg tablet 40 mg PO QAM 06/25/20 02/14/24 History liraglutide 0.6 mg/0.1 mL (18 mg/3 1.2 mg subcut DAILY 09/30/21 02/14/24 History mL) subcutaneous pen injector (Victoza 2-Jed) ondansetron 8 mg disintegrating 8 mg PO Q8H PRN Nausea 09/30/21 02/14/24 History tablet prochlorperazine maleate 10 mg 10 mg PO Q6H PRN nausea 09/30/21 02/14/24 History tablet polyethylene glycol 3350 17 gram 17 g PO DAILY PRN constipation #15 10/05/21 02/14/24 Rx oral powder packet (Miralax) ea nitroglycerin 0.4 mg sublingual 0.4 mg sublingual .Q 5 MIN PRN 11/01/21 02/14/24 History tablet Chest Pain omega-3 fatty acids 1,000 mg 1,000 mg PO BID 04/15/22 02/14/24 History capsule docusate sodium 100 mg capsule 100 mg PO BID PRN Constipation 04/22/22 02/14/24 History (Colace) gabapentin 300 mg capsule 300 mg PO BID 04/22/22 02/14/24 History mecobalamin (vitamin B12) 1,000 1,000 mcg PO QAM 04/22/22 02/14/24 History mcg chewable tablet (B12 Active) morphine 15 mg immediate release 15 mg PO Q4H PRN Pain 04/22/22 02/14/24 History tablet digoxin 125 mcg (0.125 mg) tablet 125 mcg PO Q2D 11/04/22 02/14/24 History lenalidomide 10 mg capsule 10 mg PO .HOLD 11/04/22 02/14/24 History (Revlimid) potassium chloride 20 mEq 20 meq PO BID 11/04/22 02/14/24 History tablet,extended release(part/cryst) sennosides 8.6 mg tablet (senna) 17.2 mg PO HS PRN Constipation 11/04/22 02/14/24 History insulin glargine 100 unit/mL (3 45 unit subcut QPM 12/31/22 02/14/24 History mL) subcutaneous pen (Basaglar KwikPen U-100 Insulin) mirtazapine 30 mg tablet 30 mg PO HS 06/25/23 02/14/24 History omeprazole 20 mg capsule,delayed 20 mg PO QAM 06/25/23 02/14/24 History release linaclotide 145 mcg capsule 145 mcg PO DAILY 07/28/23 02/14/24 History (Linzess) furosemide 20 mg tablet (Lasix) 20 mg PO UD #30 tabs 07/29/23 02/14/24 Rx metoprolol succinate 25 mg 25 mg PO QAM 08/20/23 02/14/24 History tablet,extended release 24 hr metoprolol succinate 50 mg 50 mg PO BID 08/20/23 02/14/24 History tablet,extended release 24 hr (Toprol XL) calcium carbonate 600 mg-vitamin 1 tab PO DAILY 11/16/23 02/14/24 History D3 10 mcg (400 unit) tablet (Calcium 600 + D(3)) insulin lispro 100 unit/mL 0 sliding scale dose subcut TID 02/14/24 02/14/24 History subcutaneous pen (Admelog SoloStar PRN .According to BSG U-) Patient History Medical History (Updated 02/15/24 @ 08:57 by Charles Womack MD) Dyspnea on exertion Idiopathic interstitial pneumonia Multifocal pneumonia Pancytopenia Diabetic ulcer of left foot COPD (chronic obstructive pulmonary disease) CKD (chronic kidney disease) stage 3, GFR 30-59 ml/min Multiple myeloma f/u oncology at [facility] Congestive heart failure Immunocompromised Interstitial lung disease PAF (paroxysmal atrial fibrillation) pacemaker placed in 2019 Diabetic ulcer of left foot Chronic deep vein thrombosis (DVT) LLE Diarrhea Pneumonia [facility] admission 08/2023 NSTEMI (non-ST elevated myocardial infarction) Per remote records History of pilonidal cyst Pacemaker Implanted 2019 History of melanoma in situ right jainism HLD (hyperlipidemia) CAD (coronary artery disease) s/p CABG x4 (age 48) Follow[address] with Dr[address] Lane/[facility] Type 2 diabetes mellitus IDDM Surgical History Hallux rigidus of left foot multiple surgeries Hx of colonoscopy S/P surgical removal of pilonidal cyst Hx of melanoma excision many years ago; right jainism Status post total hip replacement, left History of bone marrow biopsy early 2022 History of cataract surgery R/L S/P CABG x 4 Age 48 S/P Mohs surgery for basal cell carcinoma Family History Mother Lymphoma Social History Smoking Status: Never smoker Tobacco Type: Cigarettes Second Hand Exposure: No; Do You Dip or Chew Tobacco: No; Tobacco Cessation Education Requested by Patient: No Hx Alcohol Use: No Hx Substance Use: No Preferred Language: Icelandic Communication Ability: Effective Visual Impairment: No Limitations Hearing Ability: Normal Cribber Required: No Beliefs That Will Affect Care: None marital status: Current Living Situation: Spouse Current Living Situation Comment: home current occupational status: retired How many Children do You have: 1 How many Children do You have Comment: Magi lives in [facility]. able to assist with care as needed. Other Information That Helps Us Care for You: No Feels Safe at Home: Yes Safety Concerns: Feels Safe At This Time Diet: regular Diet Comment: Trying to gain weight caffeine: No during the past year weight has: decreased > 10 lbs Assistive Devices: Cane Review of Systems Review of Systems: All systems reviewed & are unremarkable except as noted in HPI & below Physical Exam Physical Exam: Constitutional: Patient appears to be of their stated age. Frail and elderly appearing male. Eyes: Pupils are equal round and reactive to light. Conjunctivae are normal. Anicteric sclera. Ears nose, mouth and throat: Mallampati class 1. Normal posterior oropharynx. Uvula is midline. Neck: Trachea is midline. Visual inspection is normal. Respiratory: Diminished bilaterally with crackles Cardiovascular: Regular rate and rhythm. No murmurs. No edema. Gastrointestinal: Normal bowel sounds, soft, nontender and nondistended. No hepatosplenomegaly noted. Musculoskeletal: No cyanosis. Patient is able to move all extremities. Strength is 5 out of 5 in the upper and lower extremities. Skin: No rashes, warm dry and intact. Neurologic: No obvious focal neurological deficits seen. Psychiatric: Alert and oriented x3 with a euthymic affect. Results & Data Results & Data Vital Signs (Past 12 Hours) Vital Signs Temp Pulse Pulse Resp BP BP Pulse Ox 02/15/24 08:42 83 02/15/24 07:28 36.8 C 84 18 110/55 L 92 02/15/24 06:20 36.7 C 81 18 120/60 92 02/15/24 05:33 36.8 C 84 16 139/61 95 02/15/24 05:03 37.3 C 81 16 111/63 92 02/15/24 04:48 36.9 C 82 14 109/62 91 02/15/24 04:26 37.1 C 83 18 118/66 96 02/15/24 02:54 36.6 C 81 18 116/67 94 02/14/24 22:44 78 02/14/24 22:39 36.6 C 67 18 94/53 L 95 02/14/24 21:35 36.6 C 78 18 133/76 97 02/14/24 21:00 02/14/24 20:51 O2 Del Method 02/15/24 08:42 02/15/24 07:28 Room Air 02/15/24 06:20 02/15/24 05:33 02/15/24 05:03 02/15/24 04:48 02/15/24 04:26 02/15/24 02:54 Room Air 02/14/24 22:44 02/14/24 22:39 Room Air 02/14/24 21:35 Room Air 02/14/24 21:00 Room Air 02/14/24 20:51 Room Air PG Care Time/CCT Total # of Minutes Spent Total Time Spent with Patient: Total time spent is greater than 50% in coordination of care (as documented) at patient's floor/unit and/or counseling patient: Coding Level of Care Code 55634 INT INP/OBS CARE 3/75MIN Diagnoses Ischemic cardiomyopathy I25.5 Multiple myeloma not having achieved remission C90.00 Multiple myeloma remission status: not in remission Pancytopenia D61.818 Multifocal pneumonia J18.9 Idiopathic interstitial pneumonia J84.111 Dyspnea on exertion R06.09
[2024-02-15] MEDS: LINACLOTIDE 145 MCG CAPSULE PO SCH (09:49)
[2024-02-15] MEDS: CALCIUM 600MG + VIT D 400 IU TAB PO SCH (09:49)
[2024-02-15] MEDS: PANTOprazole 40 MG TAB PO SCH (09:49)
[2024-02-15] MEDS: METOPROLOL SUCC 25MG EXT REL TAB PO SCH (09:49)
[2024-02-15] MEDS: CYANOCOBALAMIN (B-12) 500 MCG TABLET PO SCH (09:49)
[2024-02-15] MEDS: ATORVASTATIN 40 MG TAB PO SCH (09:49)
[2024-02-15] MEDS: POLYETHYLENE (MIRALAX) 17 GM PACK PO SCH (09:50)
[2024-02-15] MEDS: guaiFENesin 600 MG TABCR PO SCH (11:52)
[2024-02-15] MEDS: DOXYCYCLINE HYCLATE 100 MG CAP PO SCH (11:52)
--- NOTE | 2024-02-15 14:10 | Hospitalist Progress Note ---
Date of Service February 15, 2024 Assessment & Plan (1) SOB (shortness of breath): (2) Multiple myeloma: (3) Chronic heart failure with reduced ejection fraction and diastolic dysfunction: (4) PVD (peripheral vascular disease): (5) CAD (coronary artery disease): (6) HLD (hyperlipidemia): (7) Pacemaker: (8) HTN (hypertension): (9) Type 2 diabetes mellitus: Plan: Bilateral pneumonia Dyspnea on exertion with Hemoptysis Multiple Myeloma Pancytopenia History of multiple myeloma on chemotherapy; presents with fatigue, tiredness and shortness of breath Recently had cardiac catheterization on 02/[address] Campo at [facility] which showed patent dickinson to LAD, radial to left PLB and right gastroepiploic to PDA, severe multivessel CAD: 100% proximal LAD chronic total occlusion, 95% proximal circumflex OM1, 100% distal circumflex chronic total acute lesion 2012, OM 3 mid occlusion, 100% mid RCA chronic total occlusion. Normal intracardiac filling pressure. He recommended medical management of the patient's chronic CAD and stated no acute or high risk SHARON identified. Active chemotherapy started 12/02/23 with daratumumab and hyaluronidase injections (Darzalex Faspro), lenalidomide (Revlimid) and Xgeva monthly inj on day 29 of his cycle. Day 1 of cycle 13 on 01/27/2024. His next scheduled chemotherapy was scheduled for 02/24/2024 pending all went well with cardiac cath as abov - CTA chest negative for pulmonary embolism, emphysema with chronic/fibrotic change, patchy airspace consolidation seen at both lung bases, correlate clinically for evidence of pneumonia/aspiration pneumonitis, cardiomegaly and cardiac pacemaker noted Hemoglobin of 6.9 on admission, thrombocytopenia and leukopenia present MRSA nares negative Continue on antibiotics with Zosyn and doxycycline. DC vancomycin Appreciate pulmonology input. CORPORATE TUTOR eval pending CHF CAD s/p CABG HTN HLD Persistent Atrial Fibrillation - Continue cardiac medications - BNP noted to be slighty elevated at 348 on admission - Most recent cardiac cath as above - Jun 2023 of LVEF of 30-35%, large WMA with hypokinesis of basal inferoseptum, inferior wall and basal and mid levels, basal level of inferolateral wall, aortic valve sclerosis moderated, moderate mitral regurg, pulm aa systolic pressure is 37 mmHG, diastolic function could not be assessed due to irregular rhythm. Eliquis to be discontinued for the time being till thrombocytopenia resolved. He will need to have discussion with his clinical trial educator regarding long-term anticoagulation given chemotherapy induced thrombocytopenia/multiple myeloma. DM II - ISS with Accu-Cheks ACHS - A1c 6.5 on 11/22/23 DVT ppx: teds, scds, holding chemical ppx FEN/GI:Regular diet, daily protein supplement CODE: dnr/dni Time spent evaluating patient, direct bedside care, chart review, placing orders, interpretation of diagnostic studies, discussion with consultants, patient, and family members, as well as other required patient management activities is 50 minutes Please note the above document was generated using voice recognition software. It may contain grammatical, syntax or spelling errors. Any formal questions or concerns about the content, text or information contained within the body of this dictation should be directly addressed to the provider for clarification Admission and Anticipated Discharge Date Admission Date: February 14, 2024 Subjective Patient seen and examined at bedside He is lying on the bed comfortably; not in distress He denies any shortness of breath, chest pain or fever Review of Systems Review of Systems: All systems reviewed & are unremarkable except as noted in Subjective Physical Exam Physical Exam: Constitutional: WD/WN, vitals as above, NAD, sitting up in bed, pleasant, conversing easily Respiratory: Decreased breath sound at bases Cardiovascular: RRR, no murmur, no edema Vessels: no JVD or carotid bruit Chest: normal inspection of chest Abdomen: normal bowel sounds, soft, nontender, no hepatosplenomegaly Musculoskeletal: no cyanosis or clubbing, extremities motor strength 5/5 Skin: no rashes, warm and dry normal turgor Neurologic: PERRL, EOMI, accommodation nl, no face palsy, no dysarthria CN's II- XI intact bilaterally and moves all extremities Psychiatric: A+Ox3, euthymic affect Results & Data Results & Data Vital Signs (Past 12 Hours) Vital Signs Temp Pulse Pulse Resp BP BP Pulse Ox 02/15/24 11:17 36.6 C 79 18 107/55 L 96 02/15/24 10:39 02/15/24 08:42 83 02/15/24 07:28 36.8 C 84 18 110/55 L 92 02/15/24 06:20 36.7 C 81 18 120/60 92 02/15/24 05:33 36.8 C 84 16 139/61 95 02/15/24 05:03 37.3 C 81 16 111/63 92 02/15/24 04:48 36.9 C 82 14 109/62 91 02/15/24 04:26 37.1 C 83 18 118/66 96 02/15/24 02:54 36.6 C 81 18 116/67 94 O2 Del Method 02/15/24 11:17 Room Air 02/15/24 10:39 Room Air 02/15/24 08:42 02/15/24 07:28 Room Air 02/15/24 06:20 02/15/24 05:33 02/15/24 05:03 02/15/24 04:48 02/15/24 04:26 02/15/24 02:54 Room Air (2) Multiple myeloma Multiple myeloma remission status: not in remission Qualified Code(s): C90.00 - Multiple myeloma not having achieved remission (5) CAD (coronary artery disease) Coronary Disease-Associated Artery/Lesion type: [place] artery [place] vs. transplanted heart: [place] heart Associated angina: with stable angina Qualified Code(s): I25.118 - Atherosclerotic heart disease of [place] coronary artery with other forms of angina pectoris
--- NOTE | 2024-02-15 14:46 | Electrocardiogram Report ---
Test Reason : Blood Pressure : / mmHG Vent. Rate : 080 BPM Atrial Rate : 080 BPM P-R Int : 176 ms QRS Dur : 094 ms QT Int : 388 ms P-R-T Axes : 101 067 085 degrees QTc Int : 447 ms Sinus rhythm with Premature supraventricular complexes Nonspecific ST abnormality Abnormal ECG When compared with ECG of 26-NOV-2023 15:10, T wave inversion no longer evident in Lateral leads Confirmed by Jalen Fofana ([id number]) on 02/15/2024 2:46:30 PM Referred By: REFERRED SELF Confirmed By:Jalen Fofana
--- NOTE | 2024-02-15 14:56 | Electrocardiogram Report ---
Test Reason : Blood Pressure : / mmHG Vent. Rate : 087 BPM Atrial Rate : 000 BPM P-R Int : 000 ms QRS Dur : 106 ms QT Int : 392 ms P-R-T Axes : 000 078 054 degrees QTc Int : 471 ms Atrial fibrillation with occasional ventricular-paced complexes Abnormal ECG When compared with ECG of 14-FEB-2024 13:41, (unconfirmed) Atrial fibrillation is now Present Confirmed by Jalen Fofana ([id number]) on 02/15/2024 2:55:44 PM Referred By: REFERRED SELF Confirmed By:Jalen Fofana
[2024-02-15] MEDS: PIPER/TAZO 4.5g in D5W MINI-B 100 ML IV ONE (17:48)
[2024-02-15] MEDS ORDERED: VANCOMYCIN HCL 1,500 MG in SODIUM CHLORIDE 0.9% 500 ML IV SCH (19:00)
[2024-02-15] MEDS: DOCUSATE SODIUM 100 MG CAP PO PRN (20:49)
[2024-02-15] MEDS: PIPER/TAZO 4.5g in D5W MINI-B 100 ML IV SCH (23:59)
[2024-02-16 07:43] LABS: BUN Creatinine Ratio 19.6 (10-20); Calcium 8.2 mg/dl (8.6-10.3); Creatinine Clr Calc Pharmacy 58.7 ml/min; Est GFR (African American) 81.8 ml/min; Est GFR (Non-African American) 70.6 ml/min; Potassium 4.2 mmol/L (3.5-5.1)
[2024-02-16 07:52] LABS: Basophils # (auto) 0.01 K/uL (0.00-0.20); Basophils % (auto) 0.3 %; Eosinophils % (auto) 3.4 %; Hematocrit (blood only) 22.9 % (42.0-52.0); Hemoglobin 7.5 g/dl (14.0-18.0); Immature Granulocytes # (auto) 0.03 K/uL (0.01-0.20); Lymphocytes # (auto) 0.92 K/uL (1.20-3.40); Lymphocytes % (auto) 31.3 %; Mean Corpuscular Hemoglobin 30.4 pg (25.0-34.0); Mean Corpuscular Hgb Conc 32.8 g/dL (32.0-36.0); Mean Corpuscular Volume 92.7 fL (80.0-100.0); Mean Platelet Volume 12.8 fL (9.4-12.4); Monocytes # (auto) 0.47 K/uL (0.11-0.59); Neutrophils # (auto) 1.41 K/uL (1.40-6.50); Ovalocytes 1+; Platelet Count 22 K/uL (130-400); Platelet Estimate Signific. Decreased (Normal); RDW Coefficient of Variation 18.6 % (11.5-14.5); RDW Standard Deviation 62.4 fL (36.4-46.3); Red Blood Count 2.47 M/uL (4.70-6.10); Tear Drop Cells 1+; White Blood Count 2.94 K/ul (4.8-10.8)
--- NOTE | 2024-02-16 12:16 | Fluoroscopy Report ---
VIDEO SWALLOW STUDY CLINICAL HISTORY: Chronic aspiration. COMPARISON STUDY: No priors. Fluoroscopy time: 1.41 minutes. Ka,r: 4.19 mGy FINDINGS: Fluoroscopic guidance is provided to the department of speech pathology in performing a vid eo swallow study. The patient consumed barium-impregnated pudding, cracker with paste, nectar-thick l iquid, and thin barium while the swallowing mechanism was observed in real-time. No penetration or as piration was seen with any of the sampled textures. IMPRESSION: No penetration or aspiration was seen with any of the sampled textures. See dedicated spe ech pathology report for detailed findings and recommendations. Dictated: 02/16/2024 11:23 AM Transcribed: 02/16/2024 11:32 AM Isaiah [id number] [email or web address] Electronically signed by: Dante Lopez M.D. 02/16/2024 12:15 PM
--- NOTE | 2024-02-16 14:38 | Hospitalist Progress Note ---
Date of Service February 16, 2024 Assessment & Plan (1) SOB (shortness of breath): (2) Multiple myeloma: (3) Chronic heart failure with reduced ejection fraction and diastolic dysfunction: (4) PVD (peripheral vascular disease): (5) CAD (coronary artery disease): (6) HLD (hyperlipidemia): (7) Pacemaker: (8) HTN (hypertension): (9) Type 2 diabetes mellitus: Plan: Bilateral pneumonia Dyspnea on exertion with Hemoptysis Multiple myelomaIgG [place] lytic bone lesions. Chemotherapy-induced pancytopenia History of multiple myeloma on chemotherapy; presents with fatigue, tiredness and shortness of breath Recently had cardiac catheterization on 02/[address] Campo at [facility] which showed patent dickinson to LAD, radial to left PLB and right gastroepiploic to PDA, severe multivessel CAD: 100% proximal LAD chronic total occlusion, 95% proximal circumflex OM1, 100% distal circumflex chronic total acute lesion 2012, OM 3 mid occlusion, 100% mid RCA chronic total occlusion. Normal intracardiac filling pressure. He recommended medical management of the patient's chronic CAD and stated no acute or high risk SHARON identified. Currently on Maintenance protocol of the Chris protocol including combination of Darzalex on monthly basis with Revlimid 15 mg for 21 days of every 28 week cycle. Received first dose on December 02, 2023. - CTA chest negative for pulmonary embolism, emphysema with chronic/fibrotic change, patchy airspace consolidation seen at both lung bases, correlate clinically for evidence of pneumonia/aspiration pneumonitis, cardiomegaly and cardiac pacemaker noted Hemoglobin of 6.9 on admission, thrombocytopenia and leukopenia present MRSA nares negative Patient is status post 1 unit of packed RBC after admission. Continue on antibiotics with Zosyn and doxycycline; plan to treat for 7 days Swallow evaluation done; currently on EEG due to diet with thin liquids. CHF CAD s/p CABG HTN HLD Persistent Atrial Fibrillation - Continue cardiac medications - BNP noted to be slighty elevated at 348 on admission - Most recent cardiac cath as above - Jun 2023 of LVEF of 30-35%, large WMA with hypokinesis of basal inferoseptum, inferior wall and basal and mid levels, basal level of inferolateral wall, aortic valve sclerosis moderated, moderate mitral regurg, pulm aa systolic pressure is 37 mmHG, diastolic function could not be assessed due to irregular rhythm. Repeat echocardiogram during the hospitalization shows improvement in EF to 40 to 45% Eliquis to be discontinued for the time being till thrombocytopenia resolved. He will need to have discussion with his surgical rn regarding long-term anticoagulation given chemotherapy induced thrombocytopenia. I discussed with patient and patient's at bedside. DM II - ISS with Accu-Cheks ACHS - A1c 6.5 on 11/22/23 DVT ppx: teds, scds, holding chemical ppx FEN/GI:Regular diet, daily protein supplement CODE: dnr/dni DispositionPT OT recommends home with support of family. Discharge in next few days. Patient undergoing treatment for pneumonia, chemotherapy-induced pancytopenia Discussed with patient's at bedside. Answered questions/queries. Time spent evaluating patient, direct bedside care, chart review, placing orders, interpretation of diagnostic studies, discussion with consultants, patient, and family members, as well as other required patient management activities is 50 minutes Please note the above document was generated using voice recognition software. It may contain grammatical, syntax or spelling errors. Any formal questions or concerns about the content, text or information contained within the body of this dictation should be directly addressed to the provider for clarification Admission and Anticipated Discharge Date Admission Date: February 14, 2024 Subjective Patient seen and examined at bedside. He reports that he is feeling tired and weak today. Afebrile; reports shortness of breath on exertion No significant events overnight Review of Systems Review of Systems: All systems reviewed & are unremarkable except as noted in Subjective Physical Exam Physical Exam: Constitutional: WD/WN, vitals as above, NAD, sitting up in bed, pleasant, conversing easily Respiratory: Decreased breath sound at bases Cardiovascular: RRR, no murmur, no edema Vessels: no JVD or carotid bruit Chest: normal inspection of chest Abdomen: normal bowel sounds, soft, nontender, no hepatosplenomegaly Musculoskeletal: no cyanosis or clubbing, extremities motor strength 5/5 Skin: no rashes, warm and dry normal turgor Neurologic: PERRL, EOMI, accommodation nl, no face palsy, no dysarthria CN's II-XI intact bilaterally and moves all extremities Psychiatric: A+Ox3, euthymic affect Results & Data Results & Data Vital Signs (Past 12 Hours) Vital Signs Temp Pulse Pulse Resp BP Pulse Ox O2 Del Method 02/16/24 11:08 36.6 C 95 H 20 123/72 92 Room Air 02/16/24 09:52 Room Air 02/16/24 07:20 36.7 C 72 18 109/55 L 91 Room Air 02/16/24 07:18 79 02/16/24 04:04 36.9 C 76 18 107/36 L 90 Room Air (2) Multiple myeloma Multiple myeloma remission status: not in remission Qualified Code(s): C90.00 - Multiple myeloma not having achieved remission (5) CAD (coronary artery disease) Coronary Disease-Associated Artery/Lesion type: [place] artery [place] vs. transplanted heart: [place] heart Associated angina: with stable angina Qualified Code(s): I25.118 - Atherosclerotic heart disease of [place] coronary artery with other forms of angina pectoris
[2024-02-16 14:52] LABS: Epstein Barr Virus Early Ag Ab 9.72 U/mL
--- NOTE | 2024-02-16 16:18 | Pulmonology Progress Note ---
Date of Service February 16, 2024 Assessment & Plan (1) Ischemic cardiomyopathy: (2) Multiple myeloma: Multiple myeloma remission status: not in remission Qualified Code(s): C90.00 - Multiple myeloma not having achieved remission (3) Pancytopenia: (4) Multifocal pneumonia: (5) Idiopathic interstitial pneumonia: (6) Dyspnea on exertion: (7) Chronic pulmonary aspiration: Encounter type: subsequent encounter Qualified Code(s): T17.908D - Unspecified foreign body in respiratory tract, part unspecified causing other injury, subsequent encounter Plan 78-year-old male with a longstanding history of multiple myeloma actively on therapy who is presenting to the hospital with increasing shortness of breath. He also has a longstanding history of severe ischemic cardiomyopathy. Patient reports episodic epistaxis likely related to his thrombocytopenia. No overt hemoptysis has been identified or observed. Certainly he is at risk for hemoptysis given his pneumonia, ischemic cardiomyopathy and low platelet count. 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 Speech therapy consultation and swallow study noted. Patient at risk for aspiration due to oral pharyngeal dysfunction. Encouraged to double swallow, sit upright when eating and use thickened liquids Suspect findings on CT chest from this admission likely related to aspiration pneumonitis versus possible aspiration pneumonia. Antibiotics de-escalated from Zosyn to Augmentin and doxycycline. Recommend a 7-day course of antibiotics. Dyspnea is also multifactorial related to the deviously noted pancytopenia, severe deconditioning, ischemic cardiomyopathy and multifocal pneumonia. Echo with evidence of mildly reduced systolic function and moderate valvular disease. Recommend ambulatory oxygen saturation on room air prior to discharge. Patient may benefit from chronic supplemental oxygen therapy if his O2 sats are below 89% on room air. Otherwise, I do not see a reason for the patient to remain in the hospital from a pulmonary perspective. Patient has a number of hematologic and medical issues related to his multiple myeloma and palliative care consultation may be of benefit. Pulmonary medicine to sign off at this time. Thank you for the consult. Please call with questions Admission and Anticipated Discharge Date Admission Date: February 14, 2024 Subjective Patient continues to complain of fatigue. He has a bit of a cough in the morning and occasionally produces sputum which is typical for him. He has some mild shortness of breath with exertion. He is sleepy today. Review of Systems Review of Systems: All systems reviewed & are unremarkable except as noted in HPI & below Physical Exam Physical Exam: Constitutional: Patient appears to be of their stated age. Frail and elderly appearing male. Eyes: Pupils are equal round and reactive to light. Conjunctivae are normal. Anicteric sclera. Ears nose, mouth and throat: Mallampati class 1. Normal posterior oropharynx. Uvula is midline. Neck: Trachea is midline. Visual inspection is normal. Respiratory: Diminished bilaterally with crackles Cardiovascular: Regular rate and rhythm. No murmurs. No edema. Gastrointestinal: Normal bowel sounds, soft, nontender and nondistended. No hepatosplenomegaly noted. Musculoskeletal: No cyanosis. Patient is able to move all extremities. Strength is 5 out of 5 in the upper and lower extremities. Skin: No rashes, warm dry and intact. Neurologic: No obvious focal neurological deficits seen. Psychiatric: Alert and oriented x3 with a euthymic affect. Results & Data Results & Data Vital Signs (Past 12 Hours) Vital Signs Temp Pulse Pulse Resp BP Pulse Ox O2 Del Method 02/16/24 15:25 36.8 C 90 18 113/70 92 Room Air 02/16/24 11:08 36.6 C 95 H 20 123/72 92 Room Air 02/16/24 09:52 Room Air 02/16/24 07:20 36.7 C 72 18 109/55 L 91 Room Air 02/16/24 07:18 79 PG Care Time/CCT Total # of Minutes Spent Total Time Spent with Patient: Total time spent is greater than 50% in coordination of care (as documented) at patient's floor/unit and/or counseling patient: Coding Level of Care Code 66086 SUB INP/OBS CARE 2/35MIN Diagnoses Ischemic cardiomyopathy I25.5 Multiple myeloma not having achieved remission C90.00 Multiple myeloma remission status: not in remission Pancytopenia D61.818 Multifocal pneumonia J18.9 Idiopathic interstitial pneumonia J84.111 Dyspnea on exertion R06.09 Chronic pulmonary aspiration, subsequent encounter T17.908D Encounter type: subsequent encounter
[2024-02-16] MEDS: DIGOXIN 0.125 MG TAB PO SCH (16:48)
[2024-02-16] MEDS: AMOXICILLIN/CLAVULANATE 875 MG TAB PO SCH (17:38)
[2024-02-16] MEDS ORDERED: CARBOHYDRATES FOR HYPOGLYCEMIA PO PRN (19:45)
[2024-02-16] MEDS ORDERED: DEXTROSE 50% 50 ML SYRINGE IV PRN (19:45)
[2024-02-16] MEDS ORDERED: GLUCAGON FOR INJ 1 MG VIAL IM PRN (19:45)
[2024-02-16] MEDS ORDERED: GLUCOSE 40% GEL 15 GM TUBE PO PRN (19:45)
[2024-02-16] MEDS ORDERED: GLUCOSE 10 TAB/TUBE PO PRN (19:45)
[2024-02-16] MEDS: INSULIN ASPART PER UNIT CHARGE SC SCH (21:27)
[2024-02-16] MEDS: LANTUS PER UNIT CHARGE SC SCH (21:27)
[2024-02-17 07:58] LABS: Calcium 8.1 mg/dl (8.6-10.3); Creatinine Clr Calc Pharmacy 59.9 ml/min; Est GFR (African American) 83.8 ml/min; Est GFR (Non-African American) 72.3 ml/min; Potassium 4.3 mmol/L (3.5-5.1)
[2024-02-17 08:11] LABS: Eosinophils # (auto) 0.03 K/uL (0.00-0.50); Eosinophils % (auto) 1.1 %; Hematocrit (blood only) 21.4 % (42.0-52.0); Hemoglobin 6.9 g/dl (14.0-18.0); Immature Granulocytes # (auto) 0.04 K/uL (0.01-0.20); Immature Granulocytes % (auto) 1.4 %; Lymphocytes # (auto) 0.93 K/uL (1.20-3.40); Lymphocytes % (auto) 33.5 %; Mean Corpuscular Hemoglobin 30.3 pg (25.0-34.0); Mean Corpuscular Hgb Conc 32.2 g/dL (32.0-36.0); Mean Corpuscular Volume 93.9 fL (80.0-100.0); Mean Platelet Volume 12.6 fL (9.4-12.4); Monocytes # (auto) 0.37 K/uL (0.11-0.59); Monocytes % (auto) 13.3 %; Neutrophils # (auto) 1.41 K/uL (1.40-6.50); Neutrophils % (auto) 50.7 %; Ovalocytes 1+; Platelet Count 27 K/uL (130-400); RDW Coefficient of Variation 18.4 % (11.5-14.5); RDW Standard Deviation 61.6 fL (36.4-46.3); Red Blood Count 2.28 M/uL (4.70-6.10); Tear Drop Cells 1+; White Blood Count 2.78 K/ul (4.8-10.8)
[2024-02-17] MEDS: COLLAGENASE OINT 30 GM TUBE EXT SCH (08:35)
[2024-02-17] MEDS ORDERED: SODIUM CHLORIDE 0.9% 250 ML IV PRN (09:09)
--- NOTE | 2024-02-17 13:03 | Hospitalist Progress Note ---
Date of Service February 17, 2024 Assessment & Plan (1) SOB (shortness of breath): (2) Multiple myeloma: (3) Chronic heart failure with reduced ejection fraction and diastolic dysfunction: (4) PVD (peripheral vascular disease): (5) CAD (coronary artery disease): (6) HLD (hyperlipidemia): (7) Pacemaker: (8) HTN (hypertension): (9) Type 2 diabetes mellitus: Plan: Bilateral pneumonia Dyspnea on exertion with Hemoptysis Multiple myelomaIgG [place] lytic bone lesions. Chemotherapy-induced pancytopenia History of multiple myeloma on chemotherapy; presents with fatigue, tiredness and shortness of breath Recently had cardiac catheterization on 02/[address] Campo at [facility] which showed patent dickinson to LAD, radial to left PLB and right gastroepiploic to PDA, severe multivessel CAD: 100% proximal LAD chronic total occlusion, 95% proximal circumflex OM1, 100% distal circumflex chronic total acute lesion 2012, OM 3 mid occlusion, 100% mid RCA chronic total occlusion. Normal intracardiac filling pressure. He recommended medical management of the patient's chronic CAD and stated no acute or high risk SHARON identified. Currently on Maintenance protocol of the Chris protocol including combination of Darzalex on monthly basis with Revlimid 15 mg for 21 days of every 28 week cycle. Received first dose on December 02, 2023. - CTA chest negative for pulmonary embolism, emphysema with chronic/fibrotic change, patchy airspace consolidation seen at both lung bases, correlate clinically for evidence of pneumonia/aspiration pneumonitis, cardiomegaly and cardiac pacemaker noted Hemoglobin of 6.9 on admission, thrombocytopenia and leukopenia present MRSA nares negative CBC reviewed today; hemoglobin of 6.9 Patient is status post 1 unit of packed RBC after admission. Will transfuse for another unit today. Pulmonology recommends Augmentin and doxycycline for total of 7 days Swallow evaluation done; on easy to chew diet with thin liquid Repeat CBC tomorrow a.m. CHF CAD s/p CABG HTN HLD Persistent Atrial Fibrillation - Continue cardiac medications - BNP noted to be slighty elevated at 348 on admission - Most recent cardiac cath as above - Jun 2023 of LVEF of 30-35%, large WMA with hypokinesis of basal inferoseptum, inferior wall and basal and mid levels, basal level of inferolateral wall, aortic valve sclerosis moderated, moderate mitral regurg, pulm aa systolic pressure is 37 mmHG, diastolic function could not be assessed due to irregular rhythm. Repeat echocardiogram during the hospitalization shows improvement in EF to 40 to 45% Eliquis to be on hold for the time being till thrombocytopenia resolved. He will need to have discussion with his physiotherapy assistant regarding long-term anticoagulation given chemotherapy induced thrombocytopenia. I discussed with patient and patient's at bedside. DM II - ISS with Accu-Cheks ACHS - A1c 6.5 on 11/22/23 DVT ppx: teds, scds, holding chemical ppx FEN/GI:Regular diet, daily protein supplement CODE: dnr/dni DispositionPT OT recommends home with support of family. Discharge in next few days. Patient undergoing treatment for pneumonia, chemotherapy-induced pancytopenia Discussed with patient's at bedside on February. Answered questions/queries. Time spent evaluating patient, direct bedside care, chart review, placing orders, interpretation of diagnostic studies, discussion with consultants, patient, and family members, as well as other required patient management activities is 50 minutes Please note the above document was generated using voice recognition software. It may contain grammatical, syntax or spelling errors. Any formal questions or concerns about the content, text or information contained within the body of this dictation should be directly addressed to the provider for clarification Admission and Anticipated Discharge Date Admission Date: February 14, 2024 Subjective Patient seen and examined at bedside He reports that he is feeling slightly better compared to yesterday. Vitals are stable; saturating well on room air. Review of Systems Review of Systems: All systems reviewed & are unremarkable except as noted in Subjective Physical Exam Physical Exam: Constitutional: WD/WN, vitals as above, NAD, sitting up in bed, pleasant, conversing easily Respiratory: Decreased breath sound at bases Cardiovascular: RRR, no murmur, no edema Vessels: no JVD or carotid bruit Chest: normal inspection of chest Abdomen: normal bowel sounds, soft, nontender, no hepatosplenomegaly Musculoskeletal: no cyanosis or clubbing, extremities motor strength 5/5 Skin: no rashes, warm and dry normal turgor Neurologic: PERRL, EOMI, accommodation nl, no face palsy, no dysarthria CN's II- XI intact bilaterally and moves all extremities Psychiatric: A+Ox3, euthymic affect Results & Data Results & Data Vital Signs (Past 12 Hours) Vital Signs Temp Pulse Pulse Resp BP BP Pulse Ox 02/17/24 12:23 36.7 C 68 18 112/51 L 95 02/17/24 11:50 37.2 C 75 18 99/44 L 92 02/17/24 11:35 37.0 C 76 18 104/51 L 93 02/17/24 11:20 36.7 C 73 18 105/61 90 02/17/24 11:00 36.7 C 73 18 105/61 90 02/17/24 10:30 36.7 C 73 18 105/61 73 L 02/17/24 10:30 36.7 C 73 18 105/61 90 02/17/24 09:44 02/17/24 07:33 36.6 C 69 18 136/62 92 02/17/24 07:23 77 02/17/24 02:55 36.6 C 67 20 98/58 L 96 O2 Del Method 02/17/24 12:23 02/17/24 11:50 02/17/24 11:35 02/17/24 11:20 02/17/24 11:00 02/17/24 10:30 02/17/24 10:30 02/17/24 09:44 Room Air 02/17/24 07:33 Room Air 02/17/24 07:23 02/17/24 02:55 Room Air (2) Multiple myeloma Multiple myeloma remission status: not in remission Qualified Code(s): C90.00 - Multiple myeloma not having achieved remission (5) CAD (coronary artery disease) Coronary Disease-Associated Artery/Lesion type: [place] artery [place] vs. transplanted heart: [place] heart Associated angina: with stable angina Qualified Code(s): I25.118 - Atherosclerotic heart disease of [place] coronary artery with other forms of angina pectoris
[2024-02-18 08:04] LABS: Hematocrit (blood only) 24.8 % (42.0-52.0); Hemoglobin 8.3 g/dl (14.0-18.0); Mean Corpuscular Hemoglobin 29.6 pg (25.0-34.0); Mean Corpuscular Hgb Conc 33.5 g/dL (32.0-36.0); Mean Corpuscular Volume 88.6 fL (80.0-100.0); Platelet Count 22 K/uL (130-400); RDW Coefficient of Variation 19.7 % (11.5-14.5); RDW Standard Deviation 63.3 fL (36.4-46.3); White Blood Count 2.46 K/ul (4.8-10.8)
[2024-02-18 08:16] LABS: BUN Creatinine Ratio 21.3 (10-20); Calcium 7.7 mg/dl (8.6-10.3); Creatinine Clr Calc Pharmacy 63.5 ml/min; Est GFR (African American) 90.3 ml/min; Est GFR (Non-African American) 77.9 ml/min; Potassium 4.2 mmol/L (3.5-5.1)
[2024-02-18 08:28] LABS: Eosinophils # (auto) 0.05 K/uL (0.00-0.50); Immature Granulocytes # (auto) 0.04 K/uL (0.01-0.20); Immature Granulocytes % (auto) 1.6 %; Lymphocytes % (auto) 32.5 %; Monocytes # (auto) 0.46 K/uL (0.11-0.59); Monocytes % (auto) 18.7 %; Neutrophils # (auto) 1.11 K/uL (1.40-6.50); Neutrophils % (auto) 45.2 %; Ovalocytes 1+
[2024-02-18 13:31] LABS: Hematocrit (blood only) 26.9 % (42.0-52.0); Hemoglobin 8.7 g/dl (14.0-18.0)
--- NOTE | 2024-02-18 16:00 | Hospitalist Progress Note ---
Date of Service February 18, 2024 Assessment & Plan (1) SOB (shortness of breath): (2) Multiple myeloma: (3) Chronic heart failure with reduced ejection fraction and diastolic dysfunction: (4) PVD (peripheral vascular disease): (5) CAD (coronary artery disease): (6) HLD (hyperlipidemia): (7) Pacemaker: (8) HTN (hypertension): (9) Type 2 diabetes mellitus: Plan: Bilateral pneumonia Dyspnea on exertion with Hemoptysis Multiple myelomaIgG [place] lytic bone lesions. Chemotherapy-induced pancytopenia History of multiple myeloma on chemotherapy; presents with fatigue, tiredness and shortness of breath Recently had cardiac catheterization on 02/[address] Campo at [facility] which showed patent dickinson to LAD, radial to left PLB and right gastroepiploic to PDA, severe multivessel CAD: 100% proximal LAD chronic total occlusion, 95% proximal circumflex OM1, 100% distal circumflex chronic total acute lesion 2012, OM 3 mid occlusion, 100% mid RCA chronic total occlusion. Normal intracardiac filling pressure. He recommended medical management of the patient's chronic CAD and stated no acute or high risk SHARON identified. Currently on Maintenance protocol of the Chris protocol including combination of Darzalex on monthly basis with Revlimid 15 mg for 21 days of every 28 week cycle. Received first dose on December 02, 2023. - CTA chest negative for pulmonary embolism, emphysema with chronic/fibrotic change, patchy airspace consolidation seen at both lung bases, correlate clinically for evidence of pneumonia/aspiration pneumonitis, cardiomegaly and cardiac pacemaker noted Hemoglobin of 6.9 on admission, thrombocytopenia and leukopenia present MRSA nares negative CBC reviewed today; hemoglobin of 8.3 and 8.7 today. Patient is status post 2 unit of packed RBC after admission. Pulmonology recommends Augmentin and doxycycline for total of 7 days Swallow evaluation done; on easy to chew diet with thin liquid Repeat CBC tomorrow a.m. Repeat CT chest in 3-4 mo. Will benefit from pall care as OP. 2 step done, 3L w/ ambulation. CHF CAD s/p CABG HTN HLD Persistent Atrial Fibrillation - Continue cardiac medications - BNP noted to be slighty elevated at 348 on admission - Most recent cardiac cath as above - Jun 2023 of LVEF of 30-35%, large WMA with hypokinesis of basal inferoseptum, inferior wall and basal and mid levels, basal level of inferolateral wall, aortic valve sclerosis moderated, moderate mitral regurg, pulm aa systolic pressure is 37 mmHG, diastolic function could not be assessed due to irregular rhythm. Repeat echocardiogram during the hospitalization shows improvement in EF to 40 to 45% Eliquis to be on hold for the time being till thrombocytopenia resolved. He will need to have discussion with his orange picker machine operator regarding long-term anticoagulation given chemotherapy induced thrombocytopenia. Per prior attend - I discussed with patient and patient's at bedside. DM II - ISS with Accu-Cheks ACHS - A1c 6.5 on 11/22/23 DVT ppx: teds, scds, holding chemical ppx FEN/GI:Regular diet, daily protein supplement CODE: dnr/dni DispositionPT OT recommends home with support of family. Discharge likely janice. Patient undergoing treatment for pneumonia, chemotherapy-induced pancytopenia Please note the above document was generated using voice recognition software. It may contain grammatical, syntax or spelling errors. Any formal questions or concerns about the content, text or information contained within the body of this dictation should be directly addressed to the provider for clarification Admission and Anticipated Discharge Date Admission Date: February 14, 2024 Subjective Patient seen and examined at bedside He reports that he is feeling tired today. would like to go home janice. Vitals are stable; saturating well on room air. Per RN, pt w/ sob w/ exertion, 2 step completed, needs 3 L /w/ activity. Physical Exam Physical Exam: Constitutional: WD/WN, vitals as above, NAD, sitting up in bed, pleasant, conversing easily Respiratory: Decreased breath sound at bases Cardiovascular: RRR, no murmur, no edema Vessels: no JVD or carotid bruit Chest: normal inspection of chest Abdomen: normal bowel sounds, soft, nontender, no hepatosplenomegaly Musculoskeletal: no cyanosis or clubbing, extremities motor strength 5/5 Skin: no rashes, warm and dry normal turgor Neurologic: PERRL, EOMI, accommodation nl, no face palsy, no dysarthria CN's II- XI intact bilaterally and moves all extremities Psychiatric: A+Ox3, euthymic affect Results & Data Results & Data Vital Signs (Past 12 Hours) Vital Signs Temp Pulse Pulse Pulse Pulse Pulse Pulse 02/18/24 15:17 37.6 C H 02/18/24 11:15 37.0 C 02/18/24 09:29 94 H 94 H 101 H 84 84 02/18/24 08:00 74 02/18/24 08:00 02/18/24 07:28 36.8 C Pulse Resp Resp Resp Resp Resp Resp 02/18/24 15:17 85 19 02/18/24 11:15 70 19 02/18/24 09:29 24 24 22 20 18 02/18/24 08:00 02/18/24 08:00 02/18/24 07:28 72 19 BP Pulse Ox Pulse Ox Pulse Ox Pulse Ox Pulse Ox Pulse Ox 02/18/24 15:17 116/61 93 02/18/24 11:15 111/56 L 94 02/18/24 09:29 86 L 92 86 L 92 92 02/18/24 08:00 02/18/24 08:00 02/18/24 07:28 116/58 L 92 O2 Del Method O2 Flow Rate O2 Flow Rate 02/18/24 15:17 Room Air 02/18/24 11:15 Room Air 02/18/24 09:29 2 3 02/18/24 08:00 02/18/24 08:00 Room Air 02/18/24 07:28 Room Air (2) Multiple myeloma Multiple myeloma remission status: not in remission Qualified Code(s): C90.00 - Multiple myeloma not having achieved remission (5) CAD (coronary artery disease) Coronary Disease-Associated Artery/Lesion type: [place] artery [place] vs. transplanted heart: [place] heart Associated angina: with stable angina Qualified Code(s): I25.118 - Atherosclerotic heart disease of [place] coronary artery with other forms of angina pectoris
[2024-02-18] MEDS: ADVANCED PROBIOTIC 625 MG CAPSULE PO SCH (18:09)
[2024-02-19 07:56] LABS: Calcium 7.7 mg/dl (8.6-10.3); Magnesium 1.9 mg/dl (1.7-2.4); Potassium 4.3 mmol/L (3.5-5.1)
[2024-02-19 08:01] LABS: BUN Creatinine Ratio 21.1 (10-20); Creatinine Clr Calc Pharmacy 64.2 ml/min; Est GFR (African American) 95.1 ml/min; Est GFR (Non-African American) 82.1 ml/min; Phosphorus 2.1 mg/dl (2.5-4.9)
[2024-02-19 08:16] LABS: Hematocrit (blood only) 23.7 % (42.0-52.0); Hemoglobin 8.1 g/dl (14.0-18.0); Mean Corpuscular Hemoglobin 29.8 pg (25.0-34.0); Mean Corpuscular Hgb Conc 34.2 g/dL (32.0-36.0); Mean Corpuscular Volume 87.1 fL (80.0-100.0); Platelet Count 17 K/uL (130-400); RDW Coefficient of Variation 18.9 % (11.5-14.5); Red Blood Count 2.72 M/uL (4.70-6.10); White Blood Count 2.37 K/ul (4.8-10.8)
[2024-02-19 08:17] LABS: Platelet Estimate Signific. Decreased (Normal)
[2024-02-19] MEDS: POT PHOSPHATE MONOBASIC W/ SOD TAB PO SCH (09:40)
[2024-02-19] MEDS: ACETAMINOPHEN 325 MG TAB PO ONE (12:02)
[2024-02-19 12:26] LABS: Hematocrit (blood only) 25.5 % (42.0-52.0); Hemoglobin 8.5 g/dl (14.0-18.0)
[2024-02-19 12:38] LABS: Platelet Count 19 K/uL (130-400)
--- NOTE | 2024-02-19 15:43 | Hospitalist Progress Note ---
Date of Service February 19, 2024 Assessment & Plan (1) SOB (shortness of breath): (2) Multiple myeloma: (3) Chronic heart failure with reduced ejection fraction and diastolic dysfunction: (4) PVD (peripheral vascular disease): (5) CAD (coronary artery disease): (6) HLD (hyperlipidemia): (7) Pacemaker: (8) HTN (hypertension): (9) Type 2 diabetes mellitus: Plan: Bilateral pneumonia Dyspnea on exertion with Hemoptysis Multiple myelomaIgG [place] lytic bone lesions. Chemotherapy-induced pancytopenia History of multiple myeloma on chemotherapy; presents with fatigue, tiredness and shortness of breath Recently had cardiac catheterization on 02/[address]o at [facility] which showed patent dickinson to LAD, radial to left PLB and right gastroepiploic to PDA, severe multivessel CAD: 100% proximal LAD chronic total occlusion, 95% proximal circumflex OM1, 100% distal circumflex chronic total acute lesion 2012, OM 3 mid occlusion, 100% mid RCA chronic total occlusion. Normal intracardiac filling pressure. He recommended medical management of the patient's chronic CAD and stated no acute or high risk SHARON identified. Currently on Maintenance protocol of the Chris protocol including combination of Darzalex on monthly basis with Revlimid 15 mg for 21 days of every 28 week cycle. Received first dose on December 02, 2023. - CTA chest negative for pulmonary embolism, emphysema with chronic/fibrotic change, patchy airspace consolidation seen at both lung bases, correlate clinically for evidence of pneumonia/aspiration pneumonitis, cardiomegaly and cardiac pacemaker noted Hemoglobin of 6.9 on admission, thrombocytopenia and leukopenia present MRSA nares negative CBC reviewed today; hemoglobin above 8 today. Patient is status post 2 unit of packed RBC after admission. 1 unit platelets (concern of reaction to plt transfusion, see subjective 02/18). d/w onco 02/18, plan to keep plt > 20k given hemoptysis. Pt reports improving hemoptysis by evening today. Pulmonology recommends Augmentin and doxycycline for total of 7 days Swallow evaluation done; on easy to chew diet with thin liquid Repeat CBC 5 pm and tomorrow a.m. Repeat CT chest in 3-4 mo. Will benefit from pall care as OP. 2 step done, 3L w/ ambulation. CHF CAD s/p CABG HTN HLD Persistent Atrial Fibrillation - Continue cardiac medications - BNP noted to be slighty elevated at 348 on admission - Most recent cardiac cath as above - Jun 2023 of LVEF of 30-35%, large WMA with hypokinesis of basal inferoseptum, inferior wall and basal and mid levels, basal level of inferolateral wall, aortic valve sclerosis moderated, moderate mitral regurg, pulm aa systolic pressure is 37 mmHG, diastolic function could not be assessed due to irregular rhythm. Repeat echocardiogram during the hospitalization shows improvement in EF to 40 to 45% Eliquis to be on hold for the time being till thrombocytopenia resolved. He luis e l need to have discussion with his inspector balance bridge regarding long-term anticoagulation given chemotherapy induced thrombocytopenia. Per prior attend - I discussed with patient and patient's at bedside. DM II - ISS with Accu-Cheks ACHS - A1c 6.5 on 11/22/23 DVT ppx: teds, scds, holding chemical ppx FEN/GI:Regular diet, daily protein supplement CODE: dnr/dni DispositionPT OT recommends home with support of family. Discharge once platelets improving or stable. Pt's was given a phone call 02/18, left VM to call back. Please note the above document was generated using voice recognition software. It may contain grammatical, syntax or spelling errors. Any formal questions or concerns about the content, text or information contained within the body of this dictation should be directly addressed to the provider for clarification Admission and Anticipated Discharge Date Admission Date: February 14, 2024 Subjective Patient seen and examined at bedside Patient reports scant hemoptysis in the morning, platelets was 17,000, platelet transfusion ordered. d/w w/ oncology - plan to keep plt > 20K if improvement in hemoptysis. If Hb is dropping or hemoptysis is increasing, then aim for > 50K. Vitals were stable, patient reported improvement in his loose stools in the morning. Patient reports loose stool, will hold Linzess and MiraLAX. Will add psyllium for bulking, as needed Imodium. Of note, patient does have shortness of breath with exertion, needs 3 L oxygen with ambulation per two-step test. Patient was transfused platelet, after 1 unit patient noted to have fever of 38.4 C per RN which resolved on its own within 10 to 15 minutes to 36.8 C. Rest of the vitals were stable, patient did not have any shortness of breath or abdominal pain or wheezing. Patient does run soft blood pressure on and off. After discussion with RN, it was most likely instrument error that his temperature was high. Patient was not feeling hot or was not sweating at bedside exam. Patient appeared stable. But for now we will hold further platelet transfusion as patient reports now improvement in his hemoptysis. Will repeat CBC at around 5 PM. d/w RN in detail. Physical Exam Physical Exam: Constitutional: WD/WN, vitals as above, NAD, sitting up in bed, pleasant, conversing easily Respiratory: Decreased breath sound at bases Cardiovascular: RRR, no murmur, no edema Vessels: no JVD or carotid bruit Chest: normal inspection of chest Abdomen: normal bowel sounds, soft, nontender, no hepatosplenomegaly Musculoskeletal: no cyanosis or clubbing, extremities motor strength 5/5 Skin: no rashes, warm and dry normal turgor Neurologic: PERRL, EOMI, accommodation nl, no face palsy, no dysarthria CN's II- XI intact bilaterally and moves all extremities Psychiatric: A+Ox3, euthymic affect Results & Data Results & Data Vital Signs (Past 12 Hours) Vital Signs Temp Pulse Pulse Resp BP BP Pulse Ox 02/19/24 15:09 114 H 02/19/24 14:46 36.8 C 89 17 101/57 L 99 02/19/24 14:06 36.8 C 100 H 18 128/67 92 02/19/24 13:55 38.4 C H 87/49 L 02/19/24 13:54 38.4 C H 98 H 19 87/49 L 91 02/19/24 13:37 88 02/19/24 13:10 37.2 C 94 H 14 105/58 L 92 02/19/24 12:40 36.6 C 96 H 17 113/61 91 02/19/24 12:25 36.6 C 92 H 16 115/65 90 02/19/24 12:04 36.7 C 98 H 17 111/70 91 02/19/24 11:16 37.8 C H 83 19 102/47 L 93 02/19/24 08:00 02/19/24 07:49 123/65 02/19/24 07:25 37.3 C 92 H 19 91/48 L 93 O2 Del Method O2 Flow Rate 02/19/24 15:09 02/19/24 14:46 Nasal Cannula 3 02/19/24 14:06 Room Air 02/19/24 13:55 02/19/24 13:54 0 02/19/24 13:37 02/19/24 13:10 02/19/24 12:40 0 02/19/24 12:25 0 02/19/24 12:04 0 02/19/24 11:16 Room Air 02/19/24 08:00 Room Air 02/19/24 07:49 02/19/24 07:25 Room Air (2) Multiple myeloma Multiple myeloma remission status: not in remission Qualified Code(s): C90.00 - Multiple myeloma not having achieved remission (5) CAD (coronary artery disease) Coronary Disease-Associated Artery/Lesion type: [place] artery [place] vs. transplanted heart: [place] heart Associated angina: with stable angina Qualified Code(s): I25.118 - Atherosclerotic heart disease of [place] coronary artery with other forms of angina pectoris
[2024-02-19] MEDS: PSYLLIUM or GUAR GUM FIBER 4GM PACKET PO SCH (17:02)
[2024-02-19 17:21] LABS: Hematocrit (blood only) 23.6 % (42.0-52.0); Hemoglobin 7.8 g/dl (14.0-18.0); Mean Corpuscular Hemoglobin 29.5 pg (25.0-34.0); Mean Corpuscular Hgb Conc 33.1 g/dL (32.0-36.0); Mean Corpuscular Volume 89.4 fL (80.0-100.0); Mean Platelet Volume 10.4 fL (9.4-12.4); Platelet Count 38 K/uL (130-400); RDW Coefficient of Variation 19.2 % (11.5-14.5); RDW Standard Deviation 61.6 fL (36.4-46.3); Red Blood Count 2.64 M/uL (4.70-6.10); White Blood Count 2.16 K/ul (4.8-10.8)
[2024-02-19] MEDS: ACETAMINOPHEN 325 MG TAB PO PRN (19:20)
[2024-02-19 22:57] LABS: Hematocrit (blood only) 23.3 % (42.0-52.0); Hemoglobin 7.7 g/dl (14.0-18.0)
[2024-02-20 06:50] LABS: Calcium 7.6 mg/dl (8.6-10.3); Magnesium 1.8 mg/dl (1.7-2.4); Potassium 4.7 mmol/L (3.5-5.1)
[2024-02-20 06:57] LABS: Creatinine Clr Calc Pharmacy 67.9 ml/min; Est GFR (African American) 97.4 ml/min; Phosphorus 3.6 mg/dl (2.5-4.9)
[2024-02-20 06:59] LABS: Hematocrit (blood only) 26.6 % (42.0-52.0); Hemoglobin 8.6 g/dl (14.0-18.0); Mean Corpuscular Hgb Conc 32.3 g/dL (32.0-36.0); Mean Corpuscular Volume 89.6 fL (80.0-100.0); Mean Platelet Volume 10.3 fL (9.4-12.4); Platelet Count 32 K/uL (130-400); RDW Standard Deviation 60.5 fL (36.4-46.3); Red Blood Count 2.97 M/uL (4.70-6.10); White Blood Count 2.23 K/ul (4.8-10.8)
--- NOTE | 2024-02-20 09:36 | XRay Report ---
XR chest 1V portable HISTORY: f/u pneumonia, pt febrile COMPARISON: Chest 02/14/2024. FINDINGS: No pneumothorax. No pleural effusions. The cardiac silhouette remains mildly enlarged. Ther e are poststernotomy changes and a left-sided dual-chamber pacemaker. There are old, healed right-kana ed rib fractures. Patchy bibasilar densities have improved. Mild chronic interstitial thickening pers ists. No evidence for pulmonary edema. IMPRESSION: Patchy bibasilar densities have slightly improved suggesting a resolving pneumonitis. ACT 112: Negative or not required by law. Electronically signed by: Sloan Dang M.D. 02/20/2024 9:35 AM
[2024-02-20] MEDS: OPTIRAY 320 100ml IV ONE (10:09)
[2024-02-20 10:16] LABS: Appearance Urine Clear (Clear); Bacteria Urine Automated None Seen (None Seen); Bilirubin Urine Negative (Negative); Blood Urine 2+ (Negative); Color Urine Yellow; Epithelial Cell Urine Auto 0-2 /hpf (0-2); Glucose Urine UA Negative (Negative); Ketones Urine Negative (Negative); Leukocyte Esterase Urine Negative (Negative); Nitrite Urine Negative (Negative); Protein Urine 2+ (Negative); RBC Urine Automated >20 /hpf (0-2); Specific Gravity Urine 1.021 (1.000-1.030); Urobilinogen Urine Negative (Negative); WBC Urine Automated 0-5 /hpf (0-5); pH Urine 5.5 (4.5-7.5)
--- NOTE | 2024-02-20 10:25 | CT Scan Report ---
ABDOMEN AND PELVIS CT WITHOUT CONTRAST CT DOSE: 746.34 mGy.cm HISTORY: Fever. ro abscess /infection TECHNIQUE: Multiaxial CT images of the abdomen and pelvis were performed without contrast. A dose lo wering technique was utilized adhering to the principles of ALARA. COMPARISON STUDY: Chest CTA 02/14/2024. Abdomen and pelvis CT 11/04/2022. FINDINGS: There is a trace right pleural effusion. Pacemaker wires are noted. The heart is borderline enlarged. Patchy bibasilar densities with interstitial thickening are again noted and suggestive of a pneumonia. These are similar to the prior study. No pneumoperitoneum. No pneumatosis. There is a le ft total hip arthroplasty. There are old, healed bilateral rib fractures. Multiple scattered lytic os seous lesions again noted consistent with patient's known history of multiple myeloma. The unenhanced liver, gallbladder, pancreas, spleen, and adrenal glands unremarkable. Scattered renal hypodense les ions are similar to the prior study and likely represent cysts. No hydronephrosis. No renal calculi. Calcified plaque within the normal caliber abdominal aorta. No retroperitoneal or pelvic lymphadenopa thy. There are few surgical clips within the upper abdomen, unchanged. The bladder is mildly distende d. No bladder wall thickening. The prostate gland is mildly enlarged. Suboptimal evaluation for bowel pathology due to the lack of intravenous and oral contrast. However, there is no definite bowel wall thickening or obstruction. Normal appendix. Fluid-filled nondilated loops of large and small bowel s een throughout the abdomen. IMPRESSION: 1. Patchy bibasilar densities again noted. These are similar to the prior chest CT and favor a pneumo nitis. This could be due to prior aspiration. 2. No bowel wall thickening or obstruction. 3. Fluid-filled nondilated loops of large and small bowel seen throughout the abdomen. This suggests a diarrheal illness/gastroenteritis. 4. Scattered lytic osseous lesions again noted consistent the patient's history of multiple myeloma. ACT 112: Negative or not required by law. Electronically signed by: Sloan Dang M.D. 02/20/2024 10:23 AM
--- NOTE | 2024-02-20 10:29 | CT Scan Report ---
CT foot LT w con CT DOSE: 601.51 mGy.cm CLINICAL HISTORY: ro osteomyelitis, pt febrile . Left foot pain for TECHNIQUE: Multiaxial CT images of the left foot were performed following the intravenous administrat ion of contrast and reformatted in the sagittal and coronal plane. A dose lowering technique was uti lized adhering to the principles of ALARA. COMPARISON STUDY: Left foot CT 05/09/2019. Left second toe radiograph 11/21/2023. FINDINGS: Evidence for prior amputation of the left second toe. No areas of bony destructive changes to suggest an osteomyelitis. No fracture or dislocation within the left foot. Prior fusion of the fir st MTP joint with a single screw. The hardware appears intact. No abnormal periprosthetic lucency. No loculated fluid collections to suggest an abscess. Focal thickening at the amputation site adjacent to the head of the second metatarsal favors postoperative change. IMPRESSION: 1. No bony destructive changes to suggest an osteomyelitis. 2. Prior amputation of the second toe. 3. No fracture or dislocation within the left foot. ACT 112: Negative or not required by law. Electronically signed by: Sloan Dang M.D. 02/20/2024 10:27 AM
[2024-02-20] MEDS: LOPERAMIDE HCL 2 MG CAP PO PRN (15:53)
--- NOTE | 2024-02-20 16:17 | Hospitalist Progress Note ---
Date of Service February 20, 2024 Assessment & Plan (1) SOB (shortness of breath): (2) Multiple myeloma: (3) Chronic heart failure with reduced ejection fraction and diastolic dysfunction: (4) PVD (peripheral vascular disease): (5) CAD (coronary artery disease): (6) HLD (hyperlipidemia): (7) Pacemaker: (8) HTN (hypertension): (9) Type 2 diabetes mellitus: Plan: Bilateral pneumonia Dyspnea on exertion with Hemoptysis Multiple myelomaIgG [place] lytic bone lesions. Chemotherapy-induced pancytopenia History of multiple myeloma on chemotherapy; presents with fatigue, tiredness and shortness of breath Recently had cardiac catheterization on 02/[address] Campo at [facility] which showed patent dickinson to LAD, radial to left PLB and right gastroepiploic to PDA, severe multivessel CAD: 100% proximal LAD chronic total occlusion, 95% proximal circumflex OM1, 100% distal circumflex chronic total acute lesion 2012, OM 3 mid occlusion, 100% mid RCA chronic total occlusion. Normal intracardiac filling pressure. He recommended medical management of the patient's chronic CAD and stated no acute or high risk SHARON identified. Currently on Maintenance protocol of the Chris protocol including combination of Darzalex on monthly basis with Revlimid 15 mg for 21 days of every 28 week cycle. Received first dose on December 02, 2023. 02/14/24 CTA chest negative for pulmonary embolism, emphysema with chronic/fibrotic change, patchy airspace consolidation seen at both lung bases, correlate clinically for evidence of pneumonia/aspiration pneumonitis, cardiomegaly and cardiac pacemaker noted Hemoglobin of 6.9 on admission, thrombocytopenia and leukopenia present MRSA nares negative CBC reviewed today; hemoglobin above 8 today. Patient is status post 2 unit of packed RBC after admission. 1 unit platelets (concern of reaction to plt transfusion, see subjective 02/18, transfusion rx ruled out). d/w onco 02/18, plan to keep plt > 20k given hemoptysis. Pt reports improving hemoptysis. Continue to monitor platelets. Pulmonology recommends Augmentin and doxycycline for total of 7 days Swallow evaluation done; on easy to chew diet with thin liquid CBC in AM to monitor HnH and Platelets. Repeat CT chest in 3-4 mo. Will benefit from pall care as OP. 2 step done, 3L w/ ambulation. Febrile episode in AM of 02/19 - UA, Bl Cx, CT AP, CT LLE to ro OM at ulcer site, CXR to ro worsening of Pna sent. UA neg, CTAP/CXR/CT LLE w/ no acute finding. Will consult georgette WHITTINGTON febrile episodes. follow blood culture. Continue to monitor on current antibiotic as febrile episodes got better by the day w/ tylenol. CHF CAD s/p CABG HTN HLD Persistent Atrial Fibrillation - Continue cardiac medications - BNP noted to be slighty elevated at 348 on admission - Most recent cardiac cath as above - Jun 2023 of LVEF of 30-35%, large WMA with hypokinesis of basal inferoseptum, inferior wall and basal and mid levels, basal level of inferolateral wall, aortic valve sclerosis moderated, moderate mitral regurg, pulm aa systolic pressure is 37 mmHG, diastolic function could not be assessed due to irregular rhythm. Repeat echocardiogram during the hospitalization shows improvement in EF to 40 to 45% Eliquis to be on hold for the time being till thrombocytopenia resolved. He will need to have discussion with his digital director regarding long-term anticoagulation given chemotherapy induced thrombocytopenia. Per prior attend - I discussed with patient and patient's at bedside. DM II - ISS with Accu-Cheks ACHS - A1c 6.5 on 11/22/23 DVT ppx: teds, scds, holding chemical ppx FEN/GI:Regular diet, daily protein supplement CODE: dnr/dni DispositionPT OT recommends home with support of family. Discharge once platelets improving or stable. Pt's was given a phone call 02/18 and updated in detail. Please note the above document was generated using voice recognition software. It may contain grammatical, syntax or spelling errors. Any formal questions or concerns about the content, text or information contained within the body of this dictation should be directly addressed to the provider for clarification Admission and Anticipated Discharge Date Admission Date: February 14, 2024 Subjective Patient seen and examined at bedside. Patient reports improving hemoptysis, improving loose stool. Patient denies worsening cough, denies pain or burning while passing urine, denies increased pain at LLE ulcer site. Patient had a febrile episode in the morning, resolved with Tylenol. Tests were sent to rule out infection. Of note, patient does have shortness of breath with exertion, needs 3 L oxygen with ambulation per two-step test. Physical Exam Physical Exam: Constitutional: WD/WN, vitals as above, NAD, sitting up in bed, pleasant, conversing easily Respiratory: Decreased breath sound at bases Cardiovascular: RRR, no murmur, no edema Vessels: no JVD or carotid bruit Chest: normal inspection of chest Abdomen: normal bowel sounds, soft, nontender, no hepatosplenomegaly Musculoskeletal: no cyanosis or clubbing, extremities motor strength 5/5 Skin: no rashes, warm and dry normal turgor Neurologic: PERRL, EOMI, accommodation nl, no face palsy, no dysarthria CN's II- XI intact bilaterally and moves all extremities Psychiatric: A+Ox3, euthymic affect Results & Data Results & Data Vital Signs (Past 12 Hours) Vital Signs Temp Pulse Pulse Resp BP Pulse Ox O2 Del Method 02/20/24 15:55 84 02/20/24 15:24 36.8 C 77 19 109/55 L 95 Room Air 02/20/24 12:32 96 H 02/20/24 11:22 36.8 C 79 19 94/51 L 95 Room Air 02/20/24 09:49 37.7 C H 97 H 17 99/51 L 93 Room Air 02/20/24 09:03 38.0 C H 02/20/24 08:00 Room Air 02/20/24 07:59 39.1 C H 02/20/24 07:23 39.3 C H 99 H 19 99/46 L 92 Room Air (2) Multiple myeloma Multiple myeloma remission status: not in remission Qualified Code(s): C90.00 - Multiple myeloma not having achieved remission (5) CAD (coronary artery disease) Coronary Disease-Associated Artery/Lesion type: [place] artery [place] vs. transplanted heart: [place] heart Associated angina: with stable angina Qualified Code(s): I25.118 - Atherosclerotic heart disease of [place] coronary artery with other forms of angina pectoris
[2024-02-21 08:19] LABS: BUN Creatinine Ratio 18.1 (10-20); Creatinine Clr Calc Pharmacy 61.3 ml/min; Est GFR (African American) 90.3 ml/min; Est GFR (Non-African American) 77.9 ml/min; Magnesium 1.6 mg/dl (1.7-2.4); Phosphorus 2.6 mg/dl (2.5-4.9); Potassium 4.2 mmol/L (3.5-5.1)
[2024-02-21] MEDS: SENNA 8.6 MG TAB PO PRN (08:21)
[2024-02-21 08:31] LABS: Mean Corpuscular Hemoglobin 29.5 pg (25.0-34.0); Mean Corpuscular Hgb Conc 32.7 g/dL (32.0-36.0); Mean Corpuscular Volume 90.5 fL (80.0-100.0); RDW Coefficient of Variation 19.2 % (11.5-14.5); RDW Standard Deviation 63.2 fL (36.4-46.3)
[2024-02-21 08:33] LABS: Hematocrit (blood only) 19.9 % (42.0-52.0); Hemoglobin 6.5 g/dl (14.0-18.0); Mean Platelet Volume 9.5 fL (9.4-12.4); Platelet Count 16 K/uL (130-400)
[2024-02-21] MEDS ORDERED: SODIUM CHLORIDE 0.9% 250 ML IV PRN (08:35)
[2024-02-21] MEDS: MAGNESIUM SULFATE / D5W 1 GM/100 ML BAG IV SCH (09:48)
[2024-02-21] MEDS: PIPER/TAZO 4.5g in D5W MINI-B 100 ML IV ONE (09:48)
[2024-02-21] MEDS: ACETAMINOPHEN 325 MG TAB PO ONE (12:49)
[2024-02-21 12:51] LABS: Hemoglobin 7.3 g/dl (14.0-18.0); Mean Corpuscular Hgb Conc 33.2 g/dL (32.0-36.0); Mean Corpuscular Volume 90.5 fL (80.0-100.0); Mean Platelet Volume 9.8 fL (9.4-12.4); Platelet Count 22 K/uL (130-400); RDW Coefficient of Variation 19.3 % (11.5-14.5); Red Blood Count 2.43 M/uL (4.70-6.10); White Blood Count 0.87 K/ul (4.8-10.8)
[2024-02-21 12:52] LABS: Albumin Level 2.9 gm/dl (3.4-5.0); Bilirubin Direct 0.1 mg/dl (0-0.2); Bilirubin,Total 0.4 mg/dl (0.2-1.0); Total Protein 5.9 gm/dl (6.0-8.3); Uric Acid 4.1 mg/dl (2.6-7.2)
[2024-02-21 13:29] LABS: Ovalocytes 1+; Tear Drop Cells 1+
[2024-02-21 13:30] LABS: Immature Granulocytes # (auto) 0.01 K/uL (0.01-0.20); Immature Granulocytes % (auto) 1.1 %; Lymphocytes # (auto) 0.32 K/uL (1.20-3.40); Lymphocytes % (auto) 36.8 %; Monocytes % (auto) 11.5 %; Neutrophils # (auto) 0.44 K/uL (1.40-6.50); Neutrophils % (auto) 50.6 %
[2024-02-21] MEDS ORDERED: PIPERACILLIN/TAZOBACTAM 4.5 GM in DEXTROSE 5% MINI-B 100 ML IV SCH (14:00)
--- NOTE | 2024-02-21 14:04 | Discharge Summary ---
Date of Service February 21, 2024 Admission HPI Per Admitting Provider This is a 78-year-old male with PMHx of multiple myeloma IgG kappa with lytic bone lesions, pancytopenia secondary to chemotherapy, severe CAD multivessel disease s/p CABG at age 48, paroxysmal A-fib, chronic systolic CHF, DM type II, ulcer of the foot, also with neutropenia and thrombocytopenia. It was planned that he would have cardiac cath prior to his next session of chemotherapy per Dr. Garcia. Patient underwent a cardiac catheterization on 02/[address] Campo at [facility] which showed patent dickinson to LAD, radial to left PLB and right gastroepiploic to PDA, severe multivessel CAD: 100% proximal LAD chronic total occlusion, 95% proximal circumflex OM1, 100% distal circumflex chronic total acute lesion 2012, OM 3 mid occlusion, 100% mid RCA chronic total occlusion. Normal intracardiac filling pressure. He recommended medical management of the patient's chronic CAD and stated no acute or high risk SHARON identified. Suspected that majority of symptoms are secondary to anemia/malignancy although could consider trial of additional antianginal therapy. Pt presents to the hospital with acute worsening dyspnea on exertion, ongoing for the past 2 weeks, with 3 days ago started coughing up blood. The sputum is streaked with blood and last time was this afternoon. It is about a tablespoon of bloody sputum when it happens. He states normally doesn't have any productive cough. Pt feels shortness of breath even with walking short distances, 10 ft in the ER room. Reports hx of constipation and is on linzess. Denies any fever, or chills. Pt denies sick contacts that he is aware of. He had been in contact with Dr. Garcia's office this morning and they believe that he would benefit from transfusion of 1 unit of blood for symptomatic anemia. He has a boot on his lateral side of left foot and has an ulcer there which has been following with wound care. Patient is currently on active treatment with daratumumab and hyaluronidase injections (Darzalex Faspro), lenalidomide (Revlimid) and Xgeva monthly inj on day 29 of his cycle. This was initiated on 12/02/23. And had day 1 of cycle 13 on 01/27/2024. His next scheduled chemotherapy was scheduled for 02/24/2024. Admission Exam Per Admitting Provider General: awake, alert, no apparent distress, thin white male Head: Normocephalic, atraumatic ENT: PERRL, EOMI, no pharyngeal exudate, mucous membranes moist Chest: Clear to auscultation, left side with diminished breath sounds upper ochoa, slightly present in the right upper ochoa, on room air, sats 96% on RA, no adventitious breath sounds Cardiac:irregularly irregular, rate controlled, no murmur, no JVD, normal peripheral pulses, good capillary refill Abdominal: NABS x 4 quadrants, soft, nondistended, nontender to palpation, no rebound or guarding Extremities: Normal inspection, no peripheral edema or erythema, calfs nontender to palpation Psych: Normal mood and affect Neuro: AAO x 3, strength intact bilaterally and rated 5/5, no motor deficits, speech is clear, no peripheral sensory deficits Principal Diagnosis Bilateral pneumonia Pancytopenia, chemotherapy-induced Neutropenic fever Multiple myeloma under chemotherapy Dyspnea on exertion with hemoptysis Persistent A-fib, currently Eliquis on hold due to hemoptysis and thrombocytopenia Discharge Exam Constitutional: WD/WN, vitals as above, NAD, sitting up in bed, pleasant, conversing easily Respiratory: Decreased breath sound at bases Cardiovascular: RRR, no murmur, no edema Vessels: no JVD or carotid bruit Chest: normal inspection of chest Abdomen: normal bowel sounds, soft, nontender, no hepatosplenomegaly Musculoskeletal: no cyanosis or clubbing, extremities motor strength 5/5 Skin: no rashes, warm and dry normal turgor Neurologic: PERRL, EOMI, accommodation nl, no face palsy, no dysarthria CN's II- XI intact bilaterally and moves all extremities Psychiatric: A+Ox3, euthymic affect Discharge Data Allergies Allergy/AdvReac Type Severity Reaction Status Date / Time tizanidine AdvReac Intermediate "Woozy" Verified 02/14/24 15:54 feeling Consultations 02/14/24 16:42 ED Decision to Admit Stat 02/14/24 18:11 Consult Pulmonology Routine 02/20/24 16:16 Consult Infectious Diseases Routine 02/21/24 14:00 Burn CD for patient Stat Ordered Studies 02/14/24 14:26 CT angio chest PE protocol Stat 02/16/24 10:30 FL video swallow Routine 02/20/24 08:13 CT Abd and Pelvis [CT abd pelvis wo con] Routine 02/20/24 09:08 CT foot LT w con Routine Hospital Course (1) SOB (shortness of breath): (2) Multiple myeloma: (3) Chronic heart failure with reduced ejection fraction and diastolic dysfunction: (4) PVD (peripheral vascular disease): (5) CAD (coronary artery disease): (6) HLD (hyperlipidemia): (7) Pacemaker: (8) HTN (hypertension): (9) Type 2 diabetes mellitus: Bilateral pneumonia Dyspnea on exertion with Hemoptysis Multiple myelomaIgG kappawith lytic bone lesions. Chemotherapy-induced pancytopenia History of multiple myeloma on chemotherapy; presents with fatigue, tiredness and shortness of breath Recently had cardiac catheterization on 02/[address] Campo at [facility] which showed patent dickinson to LAD, radial to left PLB and right gastroepiploic to PDA, severe multivessel CAD: 100% proximal LAD chronic total occlusion, 95% proximal circumflex OM1, 100% distal circumflex chronic total acute lesion 2012, OM 3 mid occlusion, 100% mid RCA chronic total occlusion. Normal intracardiac filling pressure. He recommended medical management of the patient's chronic CAD and stated no acute or high risk SHARON identified. Currently on Maintenance protocol of the Chris protocol including combination of Darzalex on monthly basis with Revlimid 15 mg for 21 days of every 28 week cycle. Received first dose on December 02, 2023. 02/14/24 CTA chest negative for pulmonary embolism, emphysema with chronic/fibrotic change, patchy airspace consolidation seen at both lung bases, correlate clinically for evidence of pneumonia/aspiration pneumonitis, cardiomegaly and cardiac pacemaker noted Hemoglobin of 6.9 on admission, thrombocytopenia and leukopenia present MRSA nares negative CBC reviewed today; pancytopenia with a significant drop in WBC/RBC/platelet counts noted today. Status post 2 unit PRBC and 1 unit platelets so far in different occasions. Fu rther blood product transfusion ordered but due to unavailability nearby it is yet to be transfused. Repeat CBC for differential count was done which showed stable platelet and RBC. Patient and his agreeable for transfer to [facility] center due to need for robust multidisciplinary specialty [heme-onc and ID] and robust blood bank support onsite. Spoke with [facility], patient accepted, accepting physician Dr. Ronald Campos. Patient to get PRBC and platelet transfusion as soon as they are available. Zosyn added today given neutropenic fever, Augmentin on hold. Continue with doxycycline. Swallow evaluation was done this admission, on easy to chew diet with thin liquid. Patient to repeat CT scan of the chest in 3 to 4 months time. Might benefit from palliative care evaluation. Two-step test done while in the hospital, 3 L with ambulation. Infectious workup done 02/19 are so far negative which includes CT LLE to rule out osteomyelitis, CXR to rule out worsening pneumonia, UA, CTAP, blood culture. Blood culture is no growth so far. Procalcitonin was also negative. CHF CAD s/p CABG HTN HLD Persistent Atrial Fibrillation - Continue cardiac medications - BNP noted to be slighty elevated at 348 on admission - Most recent cardiac cath as above - Jun 2023 of LVEF of 30-35%, large WMA with hypokinesis of basal inferoseptum, inferior wall and basal and mid levels, basal level of inferolateral wall, aortic valve sclerosis moderated, moderate mitral regurg, pulm aa systolic pressure is 37 mmHG, diastolic function could not be assessed due to irregular rhythm. Repeat echocardiogram during the hospitalization shows improvement in EF to 40 to 45% Eliquis to be on hold for the time being till thrombocytopenia resolved. He will need to have discussion with his infection control coordinator regarding long-term anticoagulation given chemotherapy induced thrombocytopenia. Per prior attend - I discussed with patient and patient's at bedside. DM II - ISS with Accu-Cheks ACHS - A1c 6.5 on 11/22/23 DVT ppx: teds, scds, holding chemical ppx FEN/GI:Regular diet, daily protein supplement CODE: dnr/dni Patient is being discharged to tertiary care center due to severe pancytopenia, neutropenic fever, needing multiple blood products transfusion. Please note the above document was generated using voice recognition software. It may contain grammatical, syntax or spelling errors. Any formal questions or concerns about the content, text or information contained within the body of this dictation should be directly addressed to the provider for clarification. Counts Include 234 Beds At [facility] Attestation I certify that this patient is under my care and that I, or a physicians surgical dental assistant working with me, had a face to-face encounter that meets the [place] [id number] encounter requirements with this patient. The encounter with the patient was in whole, or in part, for the following medical condition, which is the primary reason for home health care (list medical condition): Anemia I certify that, based on my findings, the following services are medically necessary home health services: My clinical findings support the need for the above services because: OT Assess ADL Status and Restore Function w ADLs PT Assessment for Endurance / Balance / Strength PT Eval for Safety and Mobility PT Eval for Safety, Gait Training, Assistive Devices PT Gait and Balance Training, Strengthening and Safety Skilled Nsg Assessment Further, I certify that my clinical findings support that this patient is home bound (i.e. absences from home require considerable and taxing effort and are for medical reasons or yarsani services or infrequently or of short duration when for other reasons) because: Supportive Aid - Walker Certification for Home Health Services: Based on the above findings, I certify that this patient is confined to the home and needs intermittent halfway care, physical therapy and/or speech therapy or continues to need occupational therapy. The patient is under my care, and I have initiated the establishment of the plan of care. This patient will be followed by a physician who will periodically review the plan of care. Total Time Total Time Spent Total Time Spent (In Minutes): 55 Discharge Plan Discharge Items Patient Disposition: Transfer Acute Care Hospital Reason For Visit: RAYGOZA, ANEMIA Discharge Diagnosis: Bilateral pneumonia Pancytopenia, chemotherapy-induced Neutropenic fever Multiple myeloma under chemotherapy Dyspnea on exertion with hemoptysis Persistent A-fib, currently Eliquis on hold due to hemoptysis and thrombocytopenia Activity: As commented below Activity Comment: As per tertiary [facility]. Non-emergency contact: Primary Care Provider Call non-emergency contact if: you have any medication questions, your symptoms worsen and your temperature is above 101 Follow-up/Referrals: Landen Macario DO [Primary Care Provider] - (Date & Time 02/24/2024 1:00 PM Provider Rafia Contreras PA-C Department [facility] ) Diet: Carb Consistent or DM2 Diet Texture: Easy to Chew Addtl Attending Provider Instructions: Your prior to arrival Home medications are continued as it is in discharge med rec. Your current inpatient medications are copied and pasted here for the sake of comparison at [facility]. Current Inpatient Medications Acetaminophen (Acetaminophen 325 Mg Tab) 650 mg PO Q4H PRN PRN Reason: Moderate Pain (Scale 4, 5, 6) Stop: 03/15/24 21:01 Last Admin: 02/21/24 05:08 Dose: 650 mg Acetaminophen (Acetaminophen 325 Mg Tab) 650 mg PO PRE-TREAT ONE Stop: 02/21/24 16:35 Last Admin: 02/21/24 12:49 Dose: 650 mg Amoxicillin/Clavulanate Potassium (Amoxicillin/Clavulanate 875 Mg Tab) 1 tab PO BIDM [facility]; Protocol Stop: 02/23/24 16:59 Last Admin: 02/21/24 08:52 Dose: Not Given Atorvastatin Calcium (Atorvastatin 40 Mg Tab) 40 mg PO QAM [facility] Stop: 03/16/24 08:59 Last Admin: 02/21/24 08:22 Dose: 40 mg Calcium/Vitamin D (Calcium 600mg + Vit D 400 Iu Tab) 1 tab PO DAILY [facility] Stop: 03/16/24 08:59 Last Admin: 02/21/24 08:22 Dose: 1 tab Collagenase (Collagenase Oint 30 Gm Tube) 1 appln EXT DAILY [facility] Stop: 03/18/24 08:59 Last Admin: 02/21/24 08:23 Dose: 1 appln Cyanocobalamin (Cyanocobalamin (B-12) 500 Mcg Tablet) 1,000 mcg PO QAM [facility] Stop: 03/16/24 08:59 Last Admin: 02/21/24 08:22 Dose: 1,000 mcg Dextrose (Dextrose 50% 50 Ml Syringe) 25 - 50 ml IV UD PRN; Protocol PRN Reason: Hypoglycemia Protocol Stop: 03/17/24 19:44 Digoxin (Digoxin 0.125 Mg Tab) 0.125 mg PO Q48H [facility] Stop: 03/17/24 15:59 Last Admin: 02/20/24 15:55 Dose: 0.125 mg Docusate Sodium (Docusate Sodium 100 Mg Cap) 100 mg PO BID PRN PRN Reason: Constipation Stop: 03/15/24 17:57 Last Admin: 02/15/24 20:49 Dose: 100 mg Doxycycline Hyclate (Doxycycline Hyclate 100 Mg Cap) 100 mg PO BID [facility] Stop: 02/22/24 10:14 Last Admin: 02/21/24 08:22 Dose: 100 mg Gabapentin (Gabapentin 300 Mg Cap) 300 mg PO BID [facility] Stop: 03/15/24 20:59 Last Admin: 02/21/24 08:22 Dose: 300 mg Glucagon (Glucagon For Inj 1 Mg Vial) 1 mg IM UD PRN; Protocol PRN Reason: Hypoglycemia Protocol Stop: 03/17/24 19:44 Glucose (Glucose 40% Gel 15 Gm Tube) 15 - 30 gm PO UD PRN; Protocol PRN Reason: Hypoglycemia Protocol Stop: 03/17/24 19:44 Glucose (Glucose 10 Tab/Tube) 4 - 8 tab PO UD PRN; Protocol PRN Reason: Hypoglycemia Protocol Stop: 03/17/24 19:44 Guaifenesin (Guaifenesin 600 Mg Tabcr) 600 mg PO Q12 [facility] Stop: 03/16/24 10:09 Last Admin: 02/21/24 08:22 Dose: 600 mg Piperacillin Sod/Tazobactam (Sod 4.5 gm/ Dextrose) 100 mls @ 25 mls/hr IV Q8H RIVERA; Protocol Stop: 02/28/24 13:59 Sodium Chloride (Nss) 250 mls @ 15 mls/hr IV .[id number] PRN PRN Reason: For Transfusion Duration Stop: 02/21/24 18:35 Insulin Aspart (Insulin Aspart Per Unit Charge) 0 units SC ACHS RIVERA Stop: 03/17/24 20:59 Last Admin: 02/21/24 12:48 Dose: 8 units Insulin Glargine (Lantus Per Unit Charge) 20 units SC BID [facility] Stop: 03/17/24 20:59 Last Admin: 02/21/24 08:30 Dose: 20 units Lactobacillus Acidophilus (Advanced Probiotic 625 Mg Capsule) 1,250 mg PO DAILY [facility] Stop: 03/19/24 16:59 Last Admin: 02/21/24 08:22 Dose: 1,250 mg Linaclotide (Linaclotide 145 Mcg Capsule) 145 mcg PO DAILY [facility] Stop: 03/16/24 08:59 Last Admin: 02/19/24 09:38 Dose: 145 mcg Loperamide HCl (Loperamide Hcl 2 Mg Cap) 2 mg PO Q4H PRN PRN Reason: Loose Stool Stop: 03/20/24 15:50 Last Admin: 02/21/24 05:08 Dose: 2 mg Melatonin (Melatonin 3 Mg Tab) 3 mg PO HS PRN PRN Reason: Sleep Stop: 03/15/24 17:57 Last Admin: 02/16/24 21:31 Dose: 3 mg Menthol (Cough Drop (Sugar Free) Yamilex 24 Yamilex/1 Box) 1 yamilex BUCCAL PRN PRN PRN Reason: Cough or Sore Throat Stop: 03/15/24 16:35 Last Admin: 02/14/24 19:06 Dose: 1 yamilex Metoprolol Succinate (Metoprolol Succ 50mg Ext Rel Tab) 50 mg PO QPM [facility] Stop: 03/15/24 20:59 Last Admin: 02/20/24 21:21 Dose: 50 mg Metoprolol Succinate (Metoprolol Succ 25mg Ext Rel Tab) 75 mg PO QAM [facility] Stop: 03/16/24 08:59 Last Admin: 02/21/24 09:51 Dose: 75 mg Mirtazapine (Mirtazapine Tab 15 Mg Tab) 30 mg PO HS [facility] Stop: 03/15/24 20:59 Last Admin: 02/20/24 21:20 Dose: 30 mg Miscellaneous (Carbohydrates For Hypoglycemia ) 15 - 30 gm PO UD PRN PRN Reason: Hypoglycemia Treatment Stop: 03/17/24 19:44 Morphine Sulfate (Morphine Sulfate Ir 15 Mg Tab (Immediate Release)) 30 mg PO [facility] Stop: 02/28/24 20:59 Last Admin: 02/20/24 21:19 Dose: 30 mg Ondansetron HCl (Ondansetron Inj 2 Mg/Ml 2 Ml Vial) 4 mg IV Q4H PRN PRN Reason: Nausea And Vomiting Stop: 03/15/24 21:01 Pantoprazole Sodium (Pantoprazole 40 Mg Tab) [facility] [place] [facility] Stop: 03/16/24 08:59 Last Admin: 02/21/24 08:21 Dose: 40 mg Polyethylene Glycol (Polyethylene (Miralax) 17 Gm Pack) 17 gm PO DAILY [facility] Stop: 03/16/24 08:59 Last Admin: 02/19/24 09:40 Dose: Not Given Potassium Chloride (Potassium Chloride Crtab 20 Meq Tabcr) 20 meq PO BID [facility] Stop: 03/15/24 20:59 Last Admin: 02/21/24 08:38 Dose: 20 meq Prochlorperazine (Prochlorperazine Maleate 10 Mg Tab) 10 mg PO Q6H PRN PRN Reason: nausea Stop: 03/15/24 17:59 Psyllium Hydrophilic Mucilloid (Psyllium Or Guar Gum Fiber 4gm Packet) 4 gm PO QAM [facility] Stop: 03/20/24 15:44 Last Admin: 02/21/24 08:22 Dose: 4 gm Sennosides (Senna 8.6 Mg Tab) 17.2 mg PO HS PRN PRN Reason: Constipation Stop: 03/15/24 17:59 Last Admin: 02/21/24 08:21 Dose: 17.2 mg Pending Studies at Discharge: Yes Stand-Alone Forms: My [facility] Skilled Items Patient informed of condition?: Yes DNR: Yes Discharge Level of Care: Other Communicable Disease: No Discharge Prognosis: Other Lines: Peripheral IV Urinary Catheter: No Medications and DC Order Prescriptions: Continued atorvastatin 40 mg tablet 40 mg PO QAM Eliquis 5 mg tablet 5 mg PO BID insulin glargine [Basaglar KwikPen U-100 Insulin] 100 unit/mL (3 mL) insulin pen 45 unit SUBCUT QPM omega-3 fatty acids 1,000 mg Capsule 1,000 mg PO BID sennosides [senna] 8.6 mg Tablet 17.2 mg PO HS PRN (Reason: Constipation) digoxin 125 mcg (0.125 mg) tablet 125 mcg PO Q2D lenalidomide [Revlimid] 10 mg capsule 10 mg PO .HOLD Patient Comments: on hold currently (09/30/23) potassium chloride 20 mEq tablet,ER particles/crystals 20 meq PO BID calcium carbonate-vitamin D3 [Calcium 600 + D(3)] 600 mg-10 mcg (400 unit) tablet 1 tab PO DAILY Rx Instructions: ON HOLD WHILE ON DOXYCYCLINEPER PT'S prochlorperazine maleate 10 mg Tablet 10 mg PO Q6H PRN (Reason: nausea) ondansetron 8 mg Tablet,Disintegrating 8 mg PO Q8H PRN (Reason: Nausea) Victoza 2-Jed 0.6 mg/0.1 mL (18 mg/3 mL) Pen Injector 1.2 mg SUBCUT DAILY polyethylene glycol 3350 [Miralax] 17 gram Powder In Packet 17 g PO DAILY PRN (Reason: constipation) Qty: 15 0RF nitroglycerin 0.4 mg tablet, sublingual 0.4 mg sublingual .Q 5 MIN MDD 3 doses in 15 min PRN (Reason: Chest Pain) gabapentin 300 mg capsule 300 mg PO BID Rx Instructions: BID PER DR 1ST docusate sodium [Colace] 100 mg capsule 100 mg PO BID PRN (Reason: Constipation) morphine 15 mg tablet 15 mg PO Q4H PRN (Reason: Pain) mecobalamin (vitamin B12) [B12 Active] 1,000 mcg Tablet,Chewable 1,000 mcg PO QAM mirtazapine 30 mg tablet 30 mg PO HS omeprazole 20 mg capsule,delayed release(DR/EC) 20 mg PO QAM Linzess 145 mcg capsule 145 mcg PO DAILY furosemide [Lasix] 20 mg tablet 20 mg PO UD Qty: 30 0RF Rx Instructions: 3 times a week--on Wednesday, Wednesday and Wednesday only metoprolol succinate [Toprol XL] 50 mg tablet extended release 24 hr 50 mg PO BID Rx Instructions: Take Metoprolol 75mg QAM and 50mg QPM metoprolol succinate 25 mg tablet extended release 24 hr 25 mg PO QAM Rx Instructions: Take Metoprolol 75mg QAM and 50mg QPM insulin lispro [Admelog SoloStar U-100 Insulin] 100 unit/mL insulin pen 0 sliding scale dose SUBCUT TID PRN (Reason: .According to BSG) Discharge Orders: Discharge Order (Routine); Ordered 02/21/24 Ordered By: Heriberto Mcgee Admission Data Admit Date/Time: 02/14/24 17:12 Attending Provider: Heriberto Mcgee Admit Provider: Luciana Waggoner Primary Care Provider: Landen Macario Other Providers: Luciana Waggoner; Charles Womack; [facility]; Girish Powell; Shon Holbrook; Sterling Malagon I.; Reinaldo Mitchell II; Trinidad Lam; Cyril Hall; Jose Tyson; Kat Le; Pepe Hedrick; Freddy Teresa; Mike Alexis
[2024-02-21 15:10] LABS: Influenza A virus by PCR Negative (Neg); Influenza B virus by PCR Negative (Neg); RSV by PCR Negative (Neg); SARS CoV2 RNA(COVID-19) Ceph NEGATIVE (Negative)
== END 2024-02-21 16:12 | disposition short-term general hospital (02) | DRG 193 ==
LOC: ED 13:21 → 2S 17:12 → SUATTDRO 17:12 → 2S 20:51